=== PATIENT | male | born 1950 | race Caucasian/White ===

== ENCOUNTER 2020-02-17 17:52 | Inpatient (IN) | payer MEDICARE, OTHER ==
[2020-02-17] MEDS ORDERED: TRANEXAMIC ACID 1,000 MG in SODIUM CHLORIDE 0.9% 250 ML IV ONE (17:56)
[2020-02-17] MEDS ORDERED: DIPH,PERTUS(ACELL)TETVAC-LF 0.5 ML VIAL IM ONE (17:56)
[2020-02-17] MEDS ORDERED: SODIUM CHLORIDE 0.9% 1,000 ML IV STA (17:56)
--- NOTE | 2020-02-17 17:57 | ED ---
Fall HPI - General Stated Complaint: Fall Time Seen by Provider: 02/17/20 17:55 Source: RN notes reviewed, old records reviewed Limitations: no limitations - History of Present Illness Initial Comments: This is a 69-year-old male DF for evaluation no blood thinners patient presents today for evaluation regarding fall from distance fall from height maybe 15 feet significant back pain and left-sided chest pain with some mild shortness of breath. Patient does admit to drinking alcohol today, follow-up changing his gutters from ladder he did land on his left side in complaining of again severe left-sided pain. Questionable loss of consciousness patient unsure EMS states they think he did pass out. Blood pressure low in the field patient was made green party 1 trauma MD Complaint: fall -: days(s) Fall From: from height (distance) When Fall Occurred: 1 hour [employer] Fall Witnessed: yes, by family Place Fall Occurred: home Loss of Consciousness: second(s) Prolonged Down Time?: minute(s) Symptoms Prior to Fall: lightheadedness, dizziness Location: chest, back Location - Extremities: Left: Shoulder, Arm Severity: severe Quality: sharp Context: tripped/slipped, alcohol use Associated Symptoms: denies - Related Data Home Medications Medication Instructions Recorded Confirmed Finasteride [Proscar] 5 mg PO HS 02/17/20 02/17/20 Morphine Sulfate ER [Ms Contin] 15 mg PO Q12HR 02/17/20 02/17/20 Rosuvastatin Calcium [Crestor] 10 mg PO HS 02/17/20 02/17/20 Tadalafil [Cialis] 20 mg PO Q36H PRN 02/17/20 02/17/20 Tamsulosin HCl [Flomax] 0.8 mg PO HS 02/17/20 02/17/20 atenoloL [Atenolol] 25 mg PO HS 02/17/20 02/17/20 traZODone HCL [Desyrel] 50 mg PO HS PRN 02/17/20 02/17/20 Allergies Allergy/AdvReac Type Severity Reaction Status Date / Time fentanyl Allergy Unknown Verified 02/17/20 18:35 nitroglycerin AdvReac Unknown Verified 02/17/20 18:35 [From Nitroglyn] Review of Systems ROS Statement: Those systems with pertinent positive or pertinent negative responses have been documented in the HPI. ROS Other: All systems not noted in ROS Statement are negative. General Exam - General Exam Comments Initial Comments: GCS of 15 airway is patent trachea is midline breath sounds are equal bilaterally with left-sided chest pain left back pain Limitations: altered mental status (near syncope pre hospital) General appearance: alert, appears intoxicated, anxious, in distress Head exam: Present: atraumatic, normocephalic, normal inspection Eye exam: Present: normal appearance, PERRL, EOMI. Absent: scleral icterus, conjunctival injection, periorbital swelling ENT exam: Present: normal exam, mucous membranes moist Neck exam: Present: normal inspection. Absent: tenderness, meningismus, lymphadenopathy Respiratory exam: Present: decreased breath sounds, prolonged expiratory. Absent: respiratory distress, wheezes, rales, rhonchi, stridor Cardiovascular Exam: Present: regular rate, normal rhythm, normal heart sounds. Absent: systolic murmur, diastolic murmur, rubs, gallop, clicks GI/Abdominal exam: Present: soft, normal bowel sounds. Absent: distended, tenderness, guarding, rebound, rigid Extremities exam: Present: normal inspection, full ROM, normal capillary refill. Absent: tenderness, pedal edema, joint swelling, calf tenderness Back exam: Present: normal inspection Neurological exam: Present: alert, oriented X3, CN II-XII intact Psychiatric exam: Present: normal affect, normal mood Skin exam: Present: warm, dry, intact, normal color. Absent: rash Course Vital Signs 02/17/20 02/17/20 02/17/20 17:54 18:30 18:40 Temperature 97.9 F 97.9 F 97.9 F Pulse Rate 87 70 74 Respiratory 16 24 20 Rate Blood Pressure 88/52 96/53 118/61 O2 Sat by Pulse 9 L Oximetry 02/17/20 18:43 Temperature 97.9 F Pulse Rate 85 Respiratory 21 Rate Blood Pressure 97/47 O2 Sat by Pulse 96 Oximetry - Reevaluation(s) Reevaluation #1: 02/17/20 18:13 Medical record is reviewed Level I trauma is paged based on prehospital hypotension Patient having significant back pain Patient's blood pressure significantly improving with bolus, mass transfusion or cause initiated - Consultations Consultation #1: Spoke with and Dr. Ivy was in the ER evaluating patient and did take patient operating room Medical Decision Making - Medical Decision Making 69 male DF for evaluation patient fell 15 feet, patient sustained significant left-sided rib fractures as well as left ruptured spleen. - Lab Data Result diagrams: 02/17/20 17:56 02/17/20 17:56 Lab Results 02/17/20 02/17/20 02/17/20 Range/Units 17:56 17:56 17:56 WBC 9.8 (3.8-10.6) k/uL RBC 3.61 L (4.30-5.90) m/uL Hgb 10.5 L (13.0-17.5) gm/dL Hct 30.6 L (39.0-53.0) % MCV 84.6 (80.0-100.0) fL MCH 29.1 (25.0-35.0) pg MCHC 34.4 (31.0-37.0) g/dL RDW 13.1 (11.5-15.5) % Plt Count 150 (150-450) k/uL Neutrophils % 46 % Lymphocytes % 44 % Monocytes % 5 % Eosinophils % 2 % Basophils % 1 % Neutrophils # 4.5 (1.3-7.7) k/uL Lymphocytes # 4.3 (1.0-4.8) k/uL Monocytes # 0.5 (0-1.0) k/uL Eosinophils # 0.2 (0-0.7) k/uL Basophils # 0.1 (0-0.2) k/uL PT 11.0 (9.0-12.0) sec INR 1.1 (<1.2) APTT 21.1 L (22.0-30.0) sec Sodium 138 (137-145) mmol/L Potassium 3.2 L (3.5-5.1) mmol/L Chloride 110 H (98-107) mmol/L Carbon Dioxide 18 L (22-30) mmol/L Anion Gap 10 mmol/L BUN 14 (9-20) mg/dL Creatinine 1.25 (0.66-1.25) mg/dL Est GFR (CKD-EPI)AfAm 68 (>60 ml/min/1.73 sqM) Est GFR (CKD-EPI)NonAf 58 (>60 ml/min/1.73 sqM) Glucose 144 H (74-99) mg/dL Plasma Lactic Acid Blaine (0.7-2.0) mmol/L Calcium 8.1 L (8.4-10.2) mg/dL Total Bilirubin 0.3 (0.2-1.3) mg/dL AST 55 (17-59) U/L ALT 33 (4-49) U/L Alkaline Phosphatase 51 (38-126) U/L Creatine Kinase 218 H (55-170) U/L Troponin I (0.000-0.034) ng/mL Total Protein 4.7 L (6.3-8.2) g/dL Albumin 2.8 L (3.5-5.0) g/dL Serum Alcohol 114 mg/dL Blood Type Blood Type Recheck Bld Type Recheck Status Antibody Screen Crossmatch Spec Expiration Date 02/17/20 02/17/20 02/17/20 Range/Units 17:56 17:56 18:03 WBC (3.8-10.6) k/uL RBC (4.30-5.90) m/uL Hgb (13.0-17.5) gm/dL Hct (39.0-53.0) % MCV (80.0-100.0) fL MCH (25.0-35.0) pg MCHC (31.0-37.0) g/dL RDW (11.5-15.5) % Plt Count (150-450) k/uL Neutrophils % % Lymphocytes % % Monocytes % % Eosinophils % % Basophils % % Neutrophils # (1.3-7.7) k/uL Lymphocytes # (1.0-4.8) k/uL Monocytes # (0-1.0) k/uL Eosinophils # (0-0.7) k/uL Basophils # (0-0.2) k/uL PT (9.0-12.0) sec INR (<1.2) APTT (22.0-30.0) sec Sodium (137-145) mmol/L Potassium (3.5-5.1) mmol/L Chloride (98-107) mmol/L Carbon Dioxide (22-30) mmol/L Anion Gap mmol/L BUN (9-20) mg/dL Creatinine (0.66-1.25) mg/dL Est GFR (CKD-EPI)AfAm (>60 ml/min/1.73 sqM) Est GFR (CKD-EPI)NonAf (>60 ml/min/1.73 sqM) Glucose (74-99) mg/dL Plasma Lactic Acid Blaine 4.5 H* (0.7-2.0) mmol/L Calcium (8.4-10.2) mg/dL Total Bilirubin (0.2-1.3) mg/dL AST (17-59) U/L ALT (4-49) U/L Alkaline Phosphatase (38-126) U/L Creatine Kinase (55-170) U/L Troponin I <0.012 (0.000-0.034) ng/mL Total Protein (6.3-8.2) g/dL Albumin (3.5-5.0) g/dL Serum Alcohol mg/dL Blood Type A Negative Blood Type Recheck No Previous Record Bld Type Recheck Status CABO Indicated Antibody Screen NEGATIVE Crossmatch See Detail Spec Expiration Date 02/20/2020 2303 - EKG Data -: EKG Interpreted by Me (EKG sinus rhythm 83 MS 198 QRS 88 QTc 498) - Radiology Data Radiology results: report reviewed (Chest x-ray pelvis x-ray shows multiple l eft-sided rib fractures no significant new well, CT brain C-spine negative for acute tract disease, CT chest abdomen pelvis does show again significant left- sided rib fractures possibly 30% pneumothorax and significant hemoperitoneum secondary to splenic laceration and rupture grade 3), image reviewed Critical Care Time Critical Care Time: Yes Total Critical Care Time: 65 Disposition Clinical Impression: Fall, Ruptured spleen, Hemorrhagic shock, Hypotension Disposition: ADMITTED IP TO THIS HOSP Condition: Serious Is patient prescribed a controlled substance at d/c from ED?: No
--- NOTE | 2020-02-17 18:13 | XR ---
EXAMINATION TYPE: XR pelvis AP view DATE OF EXAM: 02/17/2020 CLINICAL HISTORY: pain TECHNIQUE: Single view the pelvis is submitted. FINDINGS: No evidence for fracture, dislocation or bony lesion. Joint spaces are well-preserved. S I joints appear symmetric. IMPRESSION: 1. No acute fracture or dislocation seen. ICD 10 NO FRACTURE, INITIAL EVALUATION
[2020-02-17 18:15] LABS: Basophils # (A) 0.1 k/uL (0-0.2); Basophils % (A) 1 %; Eosinophils # (A) 0.2 k/uL (0-0.7); Eosinophils % (A) 2 %; HCT 30.6 % (39.0-53.0); HGB 10.5 gm/dL (13.0-17.5); Lymphocytes # (A) 4.3 k/uL (1.0-4.8); Lymphocytes % (A) 44 %; MCH 29.1 pg (25.0-35.0); MCHC 34.4 g/dL (31.0-37.0); MCV 84.6 fL (80.0-100.0); Mean Platelet Volume 8.3; Monocytes # (A) 0.5 k/uL (0-1.0); Monocytes % (A) 5 %; Neutrophils # (A) 4.5 k/uL (1.3-7.7); Neutrophils % (A) 46 %; Platelet Count 150 k/uL (150-450); RBC 3.61 m/uL (4.30-5.90); RDW 13.1 % (11.5-15.5); WBC 9.8 k/uL (3.8-10.6)
--- NOTE | 2020-02-17 18:15 | XR ---
EXAMINATION TYPE: XR chest 1V portable DATE OF EXAM: 02/17/2020 HISTORY: Shortness of breath. COMPARISON: None. TECHNIQUE: Single view of the chest is submitted. FINDINGS: Demonstrated are scattered senescent parenchymal change. There is no evidence for focal infiltrate. The heart is stable. Hilar and mediastinal structures are within normal limits. Several left-sided rib fractures noted of left ribs 3 through 6. Small amount of subcutaneous air is seen. Tiny left apical pneumothorax is difficult to exclude. IMPRESSION: 1. Several left-sided rib fractures noted of left ribs 3 through 6. Small amount of subcutaneous air is seen. Tiny left apical pneumothorax is difficult to exclude.
[2020-02-17 18:26] LABS: Albumin 2.8 g/dL (3.5-5.0); Calcium 8.1 mg/dL (8.4-10.2); Potassium 3.2 mmol/L (3.5-5.1); Total Bilirubin 0.3 mg/dL (0.2-1.3); Total Protein 4.7 g/dL (6.3-8.2)
[2020-02-17] MEDS ORDERED: NALOXONE 0.4 MG/ML 1 ML VIAL IV PRN ×2 (18:30→19:37)
[2020-02-17] MEDS ORDERED: MORPHINE SULFATE 4 MG/ML SYRINGE IV PRN (18:30)
[2020-02-17] MEDS ORDERED: HYDROmorphone 0.5 MG/0.5 ML SYRINGE IVP PRN (18:40)
--- NOTE | 2020-02-17 18:40 | CT ---
EXAMINATION TYPE: CT ChestAbdPelvis w con DATE OF EXAM: 02/17/2020 COMPARISON: None HISTORY: Trauma, fell [address] DLP: 2709.9 mGycm CONTRAST: CT scan of the chest, abdomen and pelvis is performed without Oral Contrast and with IV Contrast, pat ient injected with 100 mL of Isovue 300. CT Chest: LUNGS: Left-sided pneumothorax identified estimated at 30%. Subcutaneous air seen along the left ches t wall. Multiple left-sided rib fractures are noted of 3 through 7. Several segmental fractures noted and flail chest is difficult to exclude. Small left-sided hemothorax noted. Patchy infiltrate right lower lobe may reflect contusion. MEDIASTINUM: Thoracic aorta is of normal caliber. The heart is not enlarged. No evidence for media stinal mass or adenopathy. HILAR STRUCTURES: No evidence for mass. No hilar adenopathy is appreciated. OTHER: No significant abnormality. CONTRAST CT ABDOMEN AND PELVIS FINDINGS: LIVER/GB: No calcified gallstones. No space occupying hepatic lesion. Biliary tree is of normal ca liber. PANCREAS: No inflammation. No distinct mass. SPLEEN: Parenchymal laceration greater than 3 cm in depth intrasplenic hematoma and perisplenic hemat nellie. No evidence for vascular injury component although laceration does extend near the hilum. Consid er grade 3 injury. ADRENALS: No nodule. No thickening. KIDNEYS/BLADDER: No hydronephrosis. No nephrolithiasis. No disctinct renal mass. BOWEL: Normal appendix. Normal bowel caliber. No inflammation. GENITAL ORGANS: No gross abnormality. LYMPH NODES: No greater than 1cm abdominal or pelvic lymph nodes are appreciated. AORTA: No significant abnormality. OSSEOUS STRUCTURES: No significant abnormality is seen. OTHER: Hemoperitoneum about the liver, paracolic gutters and pelvis. No evidence for pneumoperitoneum .. IMPRESSION: 1. Left-sided pneumothorax estimated at 30% with multiple left-sided rib fractures some of which appe ar to be segmental. Flail chest is not excluded. 2. Splenic laceration with estimated grade 3 injury. Hemoperitoneum as discussed above. Comment: Findings are discussed with via telephone
--- NOTE | 2020-02-17 18:41 | CT ---
EXAMINATION TYPE: CT brain ford wo con DATE OF EXAM: 02/17/2020 COMPARISON: None HISTORY: Trauma, fell [address] DLP: 2709.[address] of the brain was performed. The ventricles, basal cisterns and sulci overlying the cerebral convexities demonstrate mild enlargem ent. There is no evidence for intracranial hemorrhage or sulcal effacement. There is decreased attenuatio n about the periventricular white matter and deep white matter of both cerebral hemispheres, compatib le with chronic small vessel ischemia. No mass effects are seen. If symptoms persist consider MRI. Osseous calvarium is intact. IMPRESSION: 1. Age related atrophic and chronic small vessel ischemic change without acute intracranial process seen at this time. CT Cervical Spine: Unenhanced CT of the cervical spine was performed with bone and soft tissue window settings submitted . Coronal and sagittal reconstruction is obtained. There is normal alignment and prevertebral soft tissues. No evidence for acute cervical fracture. Po stoperative changes of fusion noted. Scattered degenerative disc disease and spondylosis. Biapical sc arring. IMPRESSION: 1. No evidence for acute fracture or subluxation of the cervical spine.
--- NOTE | 2020-02-17 18:44 | XR ---
EXAMINATION TYPE: XR humerus LT DATE OF EXAM: 02/17/2020 CLINICAL HISTORY: pain TECHNIQUE: lateral images of the left humerus are obtained. COMPARISON: None. FINDINGS: There is no acute fracture/dislocation evident. The joint spaces appear within normal limi ts. The overlying soft tissue appears unremarkable. IMPRESSION: There is no acute fracture or dislocation. ICD 10 NO FRACTURE, INITIAL EVALUATION
[2020-02-17 18:52] LABS: INR 1.1 (<1.2)
[2020-02-17 18:53] LABS: Partial Thromboplastin Time 21.1 sec (22.0-30.0)
[2020-02-17] MEDS ORDERED: ROCURONIUM BROMIDE 10 MG/ML 5 ML VIAL IV ONE (18:55)
[2020-02-17] MEDS ORDERED: PHENYLEPHRINE-0.9% NACL SYG 1 MG/10 ML SYRINGE ONE (18:55)
[2020-02-17] MEDS ORDERED: SODIUM CHLORIDE 0.9% 250 ML BAG ONE (18:55)
[2020-02-17] MEDS ORDERED: SUCCINYLCHOLINE CHLORIDE 100 MG/5 ML SYR IV ONE (18:55)
[2020-02-17] MEDS ORDERED: ceFAZolin 1,000 MG VIAL ONE (18:55)
[2020-02-17] MEDS ORDERED: TRANEXAMIC ACID 1,000 MG/10 ML VIAL ONE (18:55)
[2020-02-17] MEDS ORDERED: SODIUM CHLORIDE 0.9% 100 ML BAG ONE (18:55)
[2020-02-17] MEDS ORDERED: HYDROmorphone (PF) 1 MG/ML ONE (18:55)
[2020-02-17] MEDS ORDERED: ETOMIDATE 2 MG/ML 10 ML VIAL ONE (18:55)
[2020-02-17] MEDS ORDERED: LACTATED RINGERS 1,000 ML IV ONE ×2 (18:55→19:37)
[2020-02-17] MEDS ORDERED: ONDANSETRON 4 MG/2 ML VIAL IVP PRN (19:37)
[2020-02-17] MEDS ORDERED: HYDROmorphone 1 MG/ML 1 ML SYRINGE IVP PRN (19:37)
--- NOTE | 2020-02-17 19:47 | P.GSHP ---
History of Present Illness H&P Date: 02/17/20 Chief Complaint: Abdominal back pain Is a 69-year-old male who fell 15 feet off the top of the ladder. Patient apparently is putting [employer] on his house. The fall was unwitnessed. He calledHis who called EMS. The patient was hypotensive in the field and remained hypotensive in the emergency room. The patient is in shock. He is unable to give any significant medical history. Patient's CAT scan was performed showing a large left pneumothorax as well as multiple rib fractures and hemoperitoneum and a ruptured spleen. The patient was taken the operating room immediately. Past Medical History Past Medical History: Hyperlipidemia Past Surgical History: Coronary Bypass/CABG Smoking Status: Never smoker Past Alcohol Use History: None Reported Past Drug Use History: None Reported Medications and Allergies Home Medications Medication Instructions Recorded Confirmed Type Finasteride [Proscar] 5 mg PO HS 02/17/20 02/17/20 History Morphine Sulfate ER [Ms Contin] 15 mg PO Q12HR 02/17/20 02/17/20 History Rosuvastatin Calcium [Crestor] 10 mg PO HS 02/17/20 02/17/20 History Tadalafil [Cialis] 20 mg PO Q36H PRN 02/17/20 02/17/20 History Tamsulosin HCl [Flomax] 0.8 mg PO HS 02/17/20 02/17/20 History atenoloL [Atenolol] 25 mg PO HS 02/17/20 02/17/20 History traZODone HCL [Desyrel] 50 mg PO HS PRN 02/17/20 02/17/20 History Allergies Allergy/AdvReac Type Severity Reaction Status Date / Time fentanyl Allergy Unknown Verified 02/17/20 18:35 nitroglycerin AdvReac Unknown Verified 02/17/20 18:35 [From Nitroglyn] Surgical - Exam Vital Signs Temp Pulse Resp BP Pulse Ox 97.9 F 87 16 88/52 9 L 02/17/20 17:54 02/17/20 17:54 02/17/20 17:54 02/17/20 17:54 02/17/20 17:54 - General well developed, moderate distress - Eyes PERRL - ENT normal pinna - Neck no masses - Respiratory normal expansion - Cardiovascular Rhythm: regular - Abdomen Abdomen is distended tense with acute rebound and guarding - Neurologic normal coordination Results - Labs 02/17/20 17:56 02/17/20 17:56 Abnormal Lab Results - Last 24 Hours (Table) 02/17/20 02/17/20 02/17/20 Range/Units 17:56 17:56 17:56 RBC 3.61 L (4.30-5.90) m/uL Hgb 10.5 L (13.0-17.5) gm/dL Hct 30.6 L (39.0-53.0) % APTT 21.1 L (22.0-30.0) sec Potassium 3.2 L (3.5-5.1) mmol/L Chloride 110 H (98-107) mmol/L Carbon Dioxide 18 L (22-30) mmol/L Glucose 144 H (74-99) mg/dL Plasma Lactic Acid Blaine (0.7-2.0) mmol/L Calcium 8.1 L (8.4-10.2) mg/dL Creatine Kinase 218 H (55-170) U/L Total Protein 4.7 L (6.3-8.2) g/dL Albumin 2.8 L (3.5-5.0) g/dL Crossmatch 02/17/20 02/17/20 Range/Units 17:56 18:03 RBC (4.30-5.90) m/uL Hgb (13.0-17.5) gm/dL Hct (39.0-53.0) % APTT (22.0-30.0) sec Potassium (3.5-5.1) mmol/L Chloride (98-107) mmol/L Carbon Dioxide (22-30) mmol/L Glucose (74-99) mg/dL Plasma Lactic Acid Blaine 4.5 H* (0.7-2.0) mmol/L Calcium (8.4-10.2) mg/dL Creatine Kinase (55-170) U/L Total Protein (6.3-8.2) g/dL Albumin (3.5-5.0) g/dL Crossmatch See Detail Diabetes panel 02/17/20 Range/Units 17:56 Sodium 138 (137-145) mmol/L Potassium 3.2 L (3.5-5.1) mmol/L Chloride 110 H (98-107) mmol/L Carbon Dioxide 18 L (22-30) mmol/L BUN 14 (9-20) mg/dL Creatinine 1.25 (0.66-1.25) mg/dL Glucose 144 H (74-99) mg/dL Calcium 8.1 L (8.4-10.2) mg/dL AST 55 (17-59) U/L ALT 33 (4-49) U/L Alkaline Phosphatase 51 (38-126) U/L Total Protein 4.7 L (6.3-8.2) g/dL Albumin 2.8 L (3.5-5.0) g/dL Calcium panel 02/17/20 Range/Units 17:56 Calcium 8.1 L (8.4-10.2) mg/dL Albumin 2.8 L (3.5-5.0) g/dL Pituitary panel 02/17/20 Range/Units 17:56 Sodium 138 (137-145) mmol/L Potassium 3.2 L (3.5-5.1) mmol/L Chloride 110 H (98-107) mmol/L Carbon Dioxide 18 L (22-30) mmol/L BUN 14 (9-20) mg/dL Creatinine 1.25 (0.66-1.25) mg/dL Glucose 144 H (74-99) mg/dL Calcium 8.1 L (8.4-10.2) mg/dL Adrenal panel 02/17/20 Range/Units 17:56 Sodium 138 (137-145) mmol/L Potassium 3.2 L (3.5-5.1) mmol/L Chloride 110 H (98-107) mmol/L Carbon Dioxide 18 L (22-30) mmol/L BUN 14 (9-20) mg/dL Creatinine 1.25 (0.66-1.25) mg/dL Glucose 144 H (74-99) mg/dL Calcium 8.1 L (8.4-10.2) mg/dL Total Bilirubin 0.3 (0.2-1.3) mg/dL AST 55 (17-59) U/L ALT 33 (4-49) U/L Alkaline Phosphatase 51 (38-126) U/L Total Protein 4.7 L (6.3-8.2) g/dL Albumin 2.8 L (3.5-5.0) g/dL Assessment and Plan Assessment: S. Patient received chest tubes Hemoperitoneum with ruptured spleen. Patient was taken to the OR for immediate emergent splenectomy. Orthopedics has been consulted for possible extremity injury.
[2020-02-17 20:14] LABS: Glucose,Whole Blood 166 mg/dL (75-99)
[2020-02-17 21:03] LABS: ABG Base Excess -10.4 mmol/L; ABG HCO3 17 mmol/L (21-25); ABG Oxygen Saturation 99.5 % (94-97); ABG PCO2 38 mmHg (35-45); ABG PH 7.25 (7.35-7.45); ABG PO2 >400 mmHg (83-108); ABG TCO2 18 mmol/L (19-24)
[2020-02-17] MEDS ORDERED: MORPHINE SULFATE 4 MG/ML SYRINGE IVP STA (21:21)
[2020-02-17] MEDS: MORPHINE SULFATE (100 MG/2 ML) 100 MG in SODIUM CHLORIDE 0.9% 100 ML IV SCH (22:02)
[2020-02-17 23:00] LABS: Basophils # (A) 0.1 k/uL (0-0.2); Basophils % (A) 0 %; Eosinophils # (A) 0.1 k/uL (0-0.7); Eosinophils % (A) 1 %; Lymphocytes # (A) 2.2 k/uL (1.0-4.8); Lymphocytes % (A) 10 %; MCHC 33.6 g/dL (31.0-37.0); MCV 86.1 fL (80.0-100.0); Mean Platelet Volume 8.4; Monocytes # (A) 1.1 k/uL (0-1.0); Monocytes % (A) 5 %; Neutrophils # (A) 18.1 k/uL (1.3-7.7); Neutrophils % (A) 83 %; Platelet Count 102 k/uL (150-450); RBC 4.88 m/uL (4.30-5.90); RDW 14.1 % (11.5-15.5); WBC 21.7 k/uL (3.8-10.6)
[2020-02-17 23:09] LABS: ALT 42 U/L (4-49); AST 90 U/L (17-59); African American GFR (CKD) >90 (>60 ml/min/1.73 sqM); Albumin 2.7 g/dL (3.5-5.0); Alkaline Phosphatase 49 U/L (38-126); Anion Gap 8 mmol/L; Blood Urea Nitrogen 11 mg/dL (9-20); Calcium 7.4 mg/dL (8.4-10.2); Carbon Dioxide 17 mmol/L (22-30); Chloride 113 mmol/L (98-107); Glucose 143 mg/dL (74-99); Non-African American GFR(CKD) >90 (>60 ml/min/1.73 sqM); Potassium 4.1 mmol/L (3.5-5.1); Sodium 138 mmol/L (137-145); Total Bilirubin 0.9 mg/dL (0.2-1.3); Total Protein 4.7 g/dL (6.3-8.2)
[2020-02-17 23:19] LABS: HGB 14.1 gm/dL (13.0-17.5)
[2020-02-18] MEDS: PIPERACILLIN-TAZOBACTAM 3.375 GM in SODIUM CHLORIDE 0.9% 100 ML IVPB SCH ×3 (00:48→16:18)
[2020-02-18 01:12] LABS: Appearance,Urine Clear (Clear); Bilirubin,Urine Negative (Negative); Blood,Urine Moderate (Negative); Color,Urine Light Yellow; Glucose,Urine (UA) 1+ (Negative); Ketones,Urine Negative (Negative); Leukocyte Esterase,Urine Negative (Negative); Mucus,Urine Rare /hpf; Nitrite,Urine Negative (Negative); Protein,Urine Negative (Negative); RBC,Urine 22 /hpf (0-5); Specific Gravity,Urine 1.029 (1.001-1.035); Urobilinogen,Urine <2.0 mg/dL (<2.0); WBC,Urine 3 /hpf (0-5)
[2020-02-18 01:28] LABS: Amphetamine Screen,Urine Not Detected (NotDetected); Barbiturate Screen,Urine Not Detected (NotDetected); Benzodiazepines Screen,Urine Not Detected (NotDetected); Cocaine Screen,Urine Not Detected (NotDetected); Methadone Screen, Urine Not Detected (NotDetected); Opiate Screen,Urine Detected (NotDetected); Oxycodone Screen, Urine Not Detected (NotDetected); Phencyclidine Screen,Urine Not Detected (NotDetected); Tricyclic Antidepressant,Urine Not Detected (NotDetected); Urn Cannabinoid Scrn Detected (NotDetected)
[2020-02-18] MEDS ORDERED: MORPHINE SULFATE 4 MG/ML SYRINGE IVP STA (03:48)
[2020-02-18 04:38] LABS: African American GFR (CKD) >90 (>60 ml/min/1.73 sqM); Anion Gap 4 mmol/L; Blood Urea Nitrogen 12 mg/dL (9-20); Calcium 7.6 mg/dL (8.4-10.2); Carbon Dioxide 22 mmol/L (22-30); Chloride 110 mmol/L (98-107); Glucose 137 mg/dL (74-99); Magnesium 1.4 mg/dL (1.6-2.3); Non-African American GFR(CKD) >90 (>60 ml/min/1.73 sqM); Phosphorus 3.6 mg/dL (2.5-4.5); Potassium 4.3 mmol/L (3.5-5.1); Sodium 136 mmol/L (137-145)
[2020-02-18 04:40] LABS: Basophils # (A) 0.1 k/uL (0-0.2); Basophils % (A) 0 %; Eosinophils % (A) 0 %; HCT 39.2 % (39.0-53.0); HGB 13.4 gm/dL (13.0-17.5); Lymphocytes # (A) 1.3 k/uL (1.0-4.8); Lymphocytes % (A) 8 %; MCH 28.8 pg (25.0-35.0); MCHC 34.2 g/dL (31.0-37.0); MCV 84.2 fL (80.0-100.0); Mean Platelet Volume 8.7; Monocytes # (A) 1.2 k/uL (0-1.0); Monocytes % (A) 7 %; Neutrophils # (A) 14.2 k/uL (1.3-7.7); Neutrophils % (A) 84 %; RBC 4.65 m/uL (4.30-5.90); RDW 14.4 % (11.5-15.5); WBC 16.9 k/uL (3.8-10.6)
[2020-02-18 04:48] LABS: Platelet Count 102 k/uL (150-450)
[2020-02-18 05:01] LABS: ABG Base Excess -2.4 mmol/L; ABG HCO3 23 mmol/L (21-25); ABG Oxygen Saturation 98.7 % (94-97); ABG PCO2 37 mmHg (35-45); ABG PO2 121 mmHg (83-108); ABG TCO2 24 mmol/L (19-24); Allen Test Performed? Yes
[2020-02-18] MEDS ORDERED: Magnesium Replacement Protocol 1 EACH MISC MISCELLANE PRN (05:19)
[2020-02-18] MEDS: MAGNESIUM SULFATE-D5W PMX 1 GM in DEXTROSE/WATER 1 100ML.BAG IVPB SCH ×3 (05:44→10:40)
--- NOTE | 2020-02-18 08:02 | XR ---
EXAMINATION TYPE: XR chest 1V DATE OF EXAM: 02/18/2020 HISTORY: Shortness of breath. COMPARISON: The 20 TECHNIQUE: Single view of the chest is submitted. FINDINGS: Left basilar chest tube in place. No evidence for sizable pneumothorax at this time. Basilar pleural- parenchymal opacity. Multiple left-sided rib fractures with a small amount of subcutaneous emphysema. Endotracheal is well-positioned. The tip of the NG tube is just beyond the GE junction. The heart is stable. Hilar and mediastinal structures are within normal limits. Degenerative changes are seen of the dorsal spine. IMPRESSION: 1. Indwelling tubes and catheters as discussed. 2. Left basilar chest tube without sizable pneumothorax. Left basilar pleural-parenchymal opacity and multiple left-sided rib fractures.
[2020-02-18] MEDS: MORPHINE SULFATE (100 MG/2 ML) 100 MG in SODIUM CHLORIDE 0.9% 100 ML IV SCH ×2 (08:57→20:24)
[2020-02-18] MEDS: ENOXAPARIN 40 MG/0.4 ML SYRINGE SQ SCH (09:38)
[2020-02-18] MEDS ORDERED: SODIUM CHLORIDE 0.9% 1,000 ML IV SCH (10:00)
--- NOTE | 2020-02-18 11:05 | P.CNPUL ---
History of Present Illness Consult date: 02/18/20 Chief complaint: Fall off a ladder History of present illness: This is a 69-year-old male patient who was working on his gutters when he fell o ff a 15 foot ladder. This was unwitnessed. He end up calling his who in turn called EMS and the patient was brought in to the emergency department. Upon arrival, the patient was hypotensive and he was in shock. The patient initial chest x-ray showed several left-sided fractures and small amount of subcutaneous air in addition to a left-sided pneumothorax. The x-ray of the pelvis showed no evidence of any fracture or dislocation. The CAT scan of the brain showed age-related atrophy and chronic small vessel ischemic changes without any acute intracranial process. CAT scan of cervical spine showed no acute abnormalities. On and has Been of the cervical spine was done and the bone and soft tissue windows showed no acute abnormalities. There was no evidence of any fracture. Along with multiple left-sided rib fractures third extending to the seventh rib. There was also spending the sedation with estimated grade 3 injury the patient. The patient's hemoglobin dropped to 10.5. The patient received a total of 2 L of IV fluid and 40 minutes of packed RBC. Morning hemoglobin today is At 13.4. The patient was taken to the operating room yesterday. The patient underwent a left-sided chest tube insertion. The patient also had splenectomy done and following that the patient was kept intubated on a mechanical ventilator and he was transferred to the intensive care unit. Note that the patient takes morphine outpatient basis and he has chronic pain and chronic narcotic requirements and on outpatient basis he takes morphine sulfate in the form of MS Contin 50 mg every 12 hours. Overnight, the patient was intubated on mechanical ventilator. He was sedated with a comb[place] of propofol and he was also placed on morphine drip after being given several boluses control his pain. This morning, Profore is running at 70 mg per KG per minute. Morphine is running at 8 mg an hour. The patient is on normal saline at rate of 85 mL an hour. The patient has a left sided chest tube. Total amount of output is in order 110 mL of serosanguineous material without evidence of any air leak. The ventilator setting shows an assist-control mode rate of 20 with a tidal volume of 500 and FiO2 of 40% with a PEEP of 5. The patient's FiO2 is down to 40% overnight. The morning blood gases showed a pH of 7.4 with a pCO2 of 37 and pO2 of 121. The chest x-ray from this morning shows that the patient has an indwelling left-sided chest tube without any signs or pneumothorax. There is also a basilar pleural-based opacity along with multiple left-sided rib fractures and ET tube is in a good location. He is at approximately slightly swollen probably related to an infiltrated IV. He did not require any pressors. He remains hemodynamically stable. Lactic acid remains slightly elevated at 2.9 Review of Systems ROS unobtainable: due to endotracheal tube Past Medical History Past Medical History: Coronary Artery Disease (CAD), Hyperlipidemia, Prostate Disorder Additional Past Medical History / Comment(s): Chronic back and neck pain, cervical fusion 2009 History of Any Multi-Drug Resistant Organisms: None Reported Past Surgical History: Coronary Bypass/CABG Additional Past Surgical History / Comment(s): CABG and tripple bypass, hernia inguinal , cervical spine fusion Past Anesthesia/Blood Transfusion Reactions: No Reported Reaction Past Psychological History: Anxiety Smoking Status: Former smoker Past Alcohol Use History: None Reported Past Drug Use History: None Reported, Marijuana Medications and Allergies Home Medications Medication Instructions Recorded Confirmed Type Finasteride [Proscar] 5 mg PO HS 02/17/20 02/17/20 History Morphine Sulfate ER [Ms Contin] 15 mg PO Q12HR 02/17/20 02/17/20 History Rosuvastatin Calcium [Crestor] 10 mg PO HS 02/17/20 02/17/20 History Tadalafil [Cialis] 20 mg PO Q36H PRN 02/17/20 02/17/20 History Tamsulosin HCl [Flomax] 0.8 mg PO HS 02/17/20 02/17/20 History atenoloL [Atenolol] 25 mg PO HS 02/17/20 02/17/20 History traZODone HCL [Desyrel] 50 mg PO HS PRN 02/17/20 02/17/20 History Allergies Allergy/AdvReac Type Severity Reaction Status Date / Time fentanyl Allergy Unknown Verified 02/17/20 18:35 nitroglycerin AdvReac Unknown Verified 02/17/20 18:35 [From Nitroglyn] Physical Exam Vitals: Vital Signs Temp Pulse Resp BP BP Pulse Ox 02/18/20 06:00 112 H 13 123/85 100 02/18/20 05:00 110 H 20 133/92 100 02/18/20 04:00 97.6 F 111 H 20 117/68 100 02/18/20 03:30 113 H 21 128/109 100 02/18/20 03:00 108 H 20 158/93 99 02/18/20 02:30 109 H 26 H 158/93 100 02/18/20 02:00 108 H 20 148/96 100 02/18/20 01:30 105 H 20 148/96 100 02/18/20 01:00 99 20 100 02/18/20 00:30 97 20 129/79 100 02/18/20 00:00 97.1 F L 92 20 100 02/17/20 23:30 87 20 147/97 99 02/17/20 23:00 81 20 100 02/17/20 22:30 77 20 138/83 100 02/17/20 22:05 96.8 F L 20 168/75 100 02/17/20 22:00 73 20 100 02/17/20 21:30 72 20 147/89 100 02/17/20 21:00 70 20 100 02/17/20 20:30 68 8 L 100 02/17/20 18:47 97.3 F L 85 18 97/47 98 02/17/20 18:43 97.9 F 85 21 97/47 96 02/17/20 18:40 97.9 F 74 20 118/61 02/17/20 18:30 97.9 F 70 24 96/53 02/17/20 17:56 18 02/17/20 17:54 97.9 F 87 16 88/52 9 L Intake and Output 02/17/20 02/18/20 02/18/20 22:59 06:59 14:59 Intake Total 2615.771 1136.932 Output Total 2320 1675 Balance 295.771 -538.068 Intake: IV 1375 950 Lactated Ringers 1,000 ml 375 950 @ 125 mls/hr IV .Q8H [facility] Rx#:[id number] Intake, IV Titration 0.771 186.932 Amount Morphine Sulfate (100 mg/ 20.23 2 ml) 100 mg In Sodium Chloride 0.9% 100 ml @ 5 MG/HR 5.1 mls/hr IV .Q20H [facility] Rx#:[id number] propofoL 1,000 mg In 0.771 166.702 Empty Bag 1 bag @ Titrate IV .Q0M [facility] Rx#: [id number] Blood Product 1240 Rc As-1 Unit 310 [id number] Rc As-1 Unit 310 [id number] Rc As-1 Unit 310 [id number] Rc Pheresis 2 As3 Unit 310 [id number] Output: Chest Tube Drainage 825 Chest Tube Left Upper 825 Lateral Chest Urine 820 850 Estimated Blood Loss 1500 Other: Voiding Method Indwelling Catheter Indwelling Catheter Weight 77.111 kg 85.1 kg ABP, PAP, CO, CI - Last 8 Hours Arterial Blood Pressure 174/101 Arterial Blood Pressure 158/136 Arterial Blood Pressure 155/93 Arterial Blood Pressure 157/75 Gen. appearance the patient is sedated, comfortable not in acute respiratory distress. Orotracheal and orogastric tube are both in place. Head exam was generally normal. There was no scleral icterus or corneal arcus. Mucous membranes were moist. Neck was supple and without jugular venous distension, thyromegaly, or carotid bruits. Carotids were easily palpable bilaterally. There was no adenopathy. Lungs sounds are diminished bilaterally and the patient is a left sided chest t ube in place. Chest tube is in a good location. Breath sounds are slightly diminished in left lung base compared to the right. No evidence of any air leak and the chest tube Pleur-evac. Cardiac exam revealed the PMI to be normally situated and sized. The rhythm was regular and no extrasystoles were noted during several minutes of auscultation. The first and second heart sounds were normal and physiologic splitting of the second heart sound was noted. There were no murmurs, rubs, clicks, or gallops. Abdomen is soft and nontender. The patient has a mid abdominal scar which is dry clean and intact. A surgical scar/wound is dry clean and intact. No direct distention. No rebound distention. No guarding. Bowel sounds are hypoactive at this point in time. Examination of the extremities revealed easily palpable radial, femoral and pedal pulses. There was no cyanosis, clubbing or edema. Examination of the skin revealed no evidence of significant rashes, suspicious appearing nevi or other concerning lesions. Neurologic the patient is arousable. Currently he is well sedated. Pupils are equal and reactive to light. No signs of any head trauma. No nystagmus. No clonus. No Babinski. Results - Laboratory Findings CBC and BMP: 02/18/20 04:15 02/18/20 04:15 ABG ABG pH 7.40 (7.35-7.45) 02/18/20 04:57 ABG pCO2 37 mmHg (35-45) 02/18/20 04:57 ABG pO2 121 mmHg (83-108) H 02/18/20 04:57 ABG O2 Saturation 98.7 % (94-97) H 02/18/20 04:57 PT/INR, D-dimer PT 11.0 sec (9.0-12.0) 02/17/20 17:56 INR 1.1 (<1.2) 02/17/20 17:56 Abnormal lab findings: Abnormal Labs 02/17/20 02/17/20 02/17/20 17:56 17:56 17:56 WBC RBC 3.61 L Hgb 10.5 L Hct 30.6 L Plt Count Neutrophils # Monocytes # APTT 21.1 L ABG pH ABG pO2 ABG HCO3 ABG Total CO2 ABG O2 Saturation Sodium Potassium 3.2 L Chloride 110 H Carbon Dioxide 18 L Glucose 144 H POC Glucose (mg/dL) Plasma Lactic Acid Blaine Calcium 8.1 L Magnesium AST Creatine Kinase 218 H Total Protein 4.7 L Albumin 2.8 L Urine Glucose (UA) Urine Blood Urine RBC Urine Mucus Urine Opiates Screen U Marijuana (THC) Screen Crossmatch 02/17/20 02/17/20 02/17/20 17:56 18:03 20:03 WBC RBC Hgb Hct Plt Count Neutrophils # Monocytes # APTT ABG pH ABG pO2 ABG HCO3 ABG Total CO2 ABG O2 Saturation Sodium Potassium Chloride Carbon Dioxide Glucose POC Glucose (mg/dL) 166 H Plasma Lactic Acid Blaine 4.5 H* Calcium Magnesium AST Creatine Kinase Total Protein Albumin Urine Glucose (UA) Urine Blood Urine RBC Urine Mucus Urine Opiates Screen U Marijuana (THC) Screen Crossmatch See Detail 02/17/20 02/17/20 02/17/20 21:00 21:13 22:45 WBC 21.7 H RBC Hgb Hct Plt Count 102 L Neutrophils # 18.1 H Monocytes # 1.1 H APTT ABG pH 7.25 L ABG pO2 >400 H ABG HCO3 17 L ABG Total CO2 18 L ABG O2 Saturation 99.5 H Sodium Potassium Chloride Carbon Dioxide Glucose POC Glucose (mg/dL) Plasma Lactic Acid Blaine 4.4 H* Calcium Magnesium AST Creatine Kinase Total Protein Albumin Urine Glucose (UA) Urine Blood Urine RBC Urine Mucus Urine Opiates Screen U Marijuana (THC) Screen Crossmatch 02/17/20 02/18/20 02/18/20 22:45 00:55 01:00 WBC RBC Hgb Hct Plt Count Neutrophils # Monocytes # APTT ABG pH ABG pO2 ABG HCO3 ABG Total CO2 ABG O2 Saturation Sodium Potassium Chloride 113 H Carbon Dioxide 17 L Glucose 143 H POC Glucose (mg/dL) Plasma Lactic Acid Blaine 2.9 H* Calcium 7.4 L Magnesium AST 90 H Creatine Kinase Total Protein 4.7 L Albumin 2.7 L Urine Glucose (UA) 1+ H Urine Blood Moderate H Urine RBC 22 H Urine Mucus Rare H Urine Opiates Screen Detected H U Marijuana (THC) Screen Detected H Crossmatch 02/18/20 02/18/20 02/18/20 04:15 04:15 04:15 WBC 16.9 H RBC Hgb Hct Plt Count 102 L Neutrophils # 14.2 H Monocytes # 1.2 H APTT ABG pH ABG pO2 ABG HCO3 ABG Total CO2 ABG O2 Saturation Sodium 136 L Potassium Chloride 110 H Carbon Dioxide Glucose 137 H POC Glucose (mg/dL) Plasma Lactic Acid Blaine 2.9 H* Calcium 7.6 L Magnesium 1.4 L AST Creatine Kinase Total Protein Albumin Urine Glucose (UA) Urine Blood Urine RBC Urine Mucus Urine Opiates Screen U Marijuana (THC) Screen Crossmatch 02/18/20 02/18/20 04:57 07:00 WBC RBC Hgb Hct Plt Count Neutrophils # Monocytes # APTT ABG pH ABG pO2 121 H ABG HCO3 ABG Total CO2 ABG O2 Saturation 98.7 H Sodium Potassium Chloride Carbon Dioxide Glucose POC Glucose (mg/dL) Plasma Lactic Acid Blaine 3.4 H* Calcium Magnesium AST Creatine Kinase Total Protein Albumin Urine Glucose (UA) Urine Blood Urine RBC Urine Mucus Urine Opiates Screen U Marijuana (THC) Screen Crossmatch - Diagnostic Findings Chest x-ray: image reviewed CT scan - chest: image reviewed Assessment and Plan Plan: 1 fall off a ladder with significant trauma to the chest and abdomen. 2 traumatic grade 3 laceration of the spleen along with hemoperitoneum and the patient is post splenectomy and the patient is postop day #1 3 traumatic left-sided rib fractures third drip through seventh rib along with a 30% left-sided pneumothorax post chest tube insertion with adequate expansion of the left lung 4 shock at the time of admission, essentially due to hemorrhagic shock, improved with fluid resuscitation the patient was given a total of 4 units of packed RBC and 2 L of IV fluid and currently is hemodynamically stable and he is off pressors. Hemoglobin is above 10 5 blood loss anemia, acute, secondary to pneumoperitoneum, transfused with a total of 4 units of packed RBC 6 acute ventilator-dependent respiratory failure, hypoxic, secondary to above 7 chronic neck pain and the patient had been taken MS Contin on outpatient basis 50 mg twice a day 8 coronary artery disease appears bypass surgery 9 hyperlipidemia 10 BPH Plan Continue ventilator support without any changes for today Keep the patient on sedation with accommodation a propofol and morphine sulfate for pain control Monitor the output from the chest tube and monitor the air leak. The chest exit from today shows no evidence of pneumothorax Monitor hemoglobin Empiric antibiotic coverage with IV Zosyn Establish a arterial line catheter Keep nothing by mouth for now May need to be intubated for pain control and stabilization for another 24 hours with the potential possible weaning and extubation with the next 24 hours. We'll continue to follow. Condition is critical for now. Case was discussed with the family and the was at the bedside. Time with Patient: Greater than 30
--- NOTE | 2020-02-18 11:10 | P.PN ---
Subjective Progress Note Date: 02/18/20 CHIEF COMPLAINT: Fall with Trauma HISTORY OF PRESENT ILLNESS: 69-year-old male who fell 15 feet off the top of the ladder. Patient's CAT scan was performed showing a large left pneumothorax as well as multiple rib fractures and hemoperitoneum and a ruptured spleen. Patient is status post splenectomy. He is intubated in the ICU. Afebrile. WBC 16.9, Hgb 13.4, lactic 3.4, Mg 1.4 being replaced. urine positive for opiates and marijuana PHYSICAL EXAM: VITAL SIGNS: Reviewed. GENERAL: Well-developed in no acute distress. HEENT: No sclera icterus. Extraocular movements grossly intact. Moist buccal mucosa. Head is atraumatic, normocephalic. ABDOMEN: Soft. Nondistended. Incision has small amount of bleeding on dressing otherwise clean, dry and intact NEUROLOGIC: patient is on the vent and sedated ASSESSMENT: 1. 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 POD#1 2. Left-sided pneumothorax has chest tube in place 3. Multiple left-sided rib fractures 4. Alcohol intoxication PLAN: -Continue IV fluids -On IV antibiotics -Consult critical care management, medical management and infectious disease -lovenox for DVT prophylaxis Physician [employer] note has been reviewed by physician. Signing provider agrees with the documented findings, assessment, and plan of care. Objective - Vital Signs Vital signs: Vital Signs Temp 99.5 F 02/18/20 09:00 Pulse 93 02/18/20 10:00 Resp 20 02/18/20 10:00 BP 119/62 02/18/20 10:00 Pulse Ox 99 02/18/20 10:00 Intake & Output 02/17/20 02/18/20 02/18/20 18:59 06:59 18:59 Intake Total 1310 2442.703 798.815 Output Total 3995 290 Balance 1310 -1552.297 508.815 Weight 77.111 kg 85.1 kg Intake: IV 1000 1325 150 Lactated Ringers 1,000 ml 1325 150 @ 125 mls/hr IV .Q8H [facility] Rx#:[id number] Intake, IV Titration 187.703 648.815 Amount Magnesium Sulfate-D5w Pmx 100 1 gm In Dextrose/Water 1 100ml.bag @ 100 mls/hr IVPB Q1H [facility] Rx#: [id number] Morphine Sulfate (100 mg/ 20.23 56.712 2 ml) 100 mg In Sodium Chloride 0.9% 100 ml @ 5 MG/HR 5.1 mls/hr IV .Q20H [facility] Rx#:[id number] Piperacillin-Tazobactam 3 100 .375 gm In Sodium Chloride 0.9% 100 ml @ 25 mls/hr IVPB Q8HR [facility] Rx# :[id number] Sodium Chloride 0.9% 1, 250 000 ml @ 125 mls/hr IV . Q8H [facility] Rx#:[id number] propofoL 1,000 mg In 167.473 142.103 Empty Bag 1 bag @ Titrate IV .Q0M [facility] Rx#: [id number] Blood Product 310 930 Rc As-1 Unit 0 310 [id number] Rc As-1 Unit 310 [id number] Rc As-1 Unit 310 [id number] Rc Pheresis 2 As3 Unit 310 [id number] Output: Chest Tube Drainage 825 45 Chest Tube Left Upper 825 45 Lateral Chest Urine 1670 245 Estimated Blood Loss 1500 Other: Voiding Method Indwelling Catheter Indwelling Catheter ABP, PAP, CO, CI - Last Documented Arterial Blood Pressure 174/101 - Labs CBC & Chem 7: 02/18/20 04:15 02/18/20 04:15 Labs: Abnormal Lab Results - Last 24 Hours (Table) 02/17/20 02/17/20 02/17/20 Range/Units 17:56 17:56 17:56 WBC (3.8-10.6) k/uL RBC 3.61 L (4.30-5.90) m/uL Hgb 10.5 L (13.0-17.5) gm/dL Hct 30.6 L (39.0-53.0) % Plt Count (150-450) k/uL Neutrophils # (1.3-7.7) k/uL Monocytes # (0-1.0) k/uL APTT 21.1 L (22.0-30.0) sec ABG pH (7.35-7.45) ABG pO2 (83-108) mmHg ABG HCO3 (21-25) mmol/L ABG Total CO2 (19-24) mmol/L ABG O2 Saturation (94-97) % Sodium (137-145) mmol/L Potassium 3.2 L (3.5-5.1) mmol/L Chloride 110 H (98-107) mmol/L Carbon Dioxide 18 L (22-30) mmol/L Glucose 144 H (74-99) mg/dL POC Glucose (mg/dL) (75-99) mg/dL Plasma Lactic Acid Blaine (0.7-2.0) mmol/L Calcium 8.1 L (8.4-10.2) mg/dL Magnesium (1.6-2.3) mg/dL AST (17-59) U/L Creatine Kinase 218 H (55-170) U/L Total Protein 4.7 L (6.3-8.2) g/dL Albumin 2.8 L (3.5-5.0) g/dL Urine Glucose (UA) (Negative) Urine Blood (Negative) Urine RBC (0-5) /hpf Urine Mucus (None) /hpf Urine Opiates Screen (NotDetected) U Marijuana (THC) Screen (NotDetected) Crossmatch 02/17/20 02/17/20 02/17/20 Range/Units 17:56 18:03 20:03 WBC (3.8-10.6) k/uL RBC (4.30-5.90) m/uL Hgb (13.0-17.5) gm/dL Hct (39.0-53.0) % Plt Count (150-450) k/uL Neutrophils # (1.3-7.7) k/uL Monocytes # (0-1.0) k/uL APTT (22.0-30.0) sec ABG pH (7.35-7.45) ABG pO2 (83-108) mmHg ABG HCO3 (21-25) mmol/L ABG Total CO2 (19-24) mmol/L ABG O2 Saturation (94-97) % Sodium (137-145) mmol/L Potassium (3.5-5.1) mmol/L Chloride (98-107) mmol/L Carbon Dioxide (22-30) mmol/L Glucose (74-99) mg/dL POC Glucose (mg/dL) 166 H (75-99) mg/dL Plasma Lactic Acid Blaine 4.5 H* (0.7-2.0) mmol/L Calcium (8.4-10.2) mg/dL Magnesium (1.6-2.3) mg/dL AST (17-59) U/L Creatine Kinase (55-170) U/L Total Protein (6.3-8.2) g/dL Albumin (3.5-5.0) g/dL Urine Glucose (UA) (Negative) Urine Blood (Negative) Urine RBC (0-5) /hpf Urine Mucus (None) /hpf Urine Opiates Screen (NotDetected) U Marijuana (THC) Screen (NotDetected) Crossmatch See Detail 02/17/20 02/17/20 02/17/20 Range/Units 21:00 21:13 22:45 WBC 21.7 H (3.8-10.6) k/uL RBC (4.30-5.90) m/uL Hgb (13.0-17.5) gm/dL Hct (39.0-53.0) % Plt Count 102 L (150-450) k/uL Neutrophils # 18.1 H (1.3-7.7) k/uL Monocytes # 1.1 H (0-1.0) k/uL APTT (22.0-30.0) sec ABG pH 7.25 L (7.35-7.45) ABG pO2 >400 H (83-108) mmHg ABG HCO3 17 L (21-25) mmol/L ABG Total CO2 18 L (19-24) mmol/L ABG O2 Saturation 99.5 H (94-97) % Sodium (137-145) mmol/L Potassium (3.5-5.1) mmol/L Chloride (98-107) mmol/L Carbon Dioxide (22-30) mmol/L Glucose (74-99) mg/dL POC Glucose (mg/dL) (75-99) mg/dL Plasma Lactic Acid Blaine 4.4 H* (0.7-2.0) mmol/L Calcium (8.4-10.2) mg/dL Magnesium (1.6-2.3) mg/dL AST (17-59) U/L Creatine Kinase (55-170) U/L Total Protein (6.3-8.2) g/dL Albumin (3.5-5.0) g/dL Urine Glucose (UA) (Negative) Urine Blood (Negative) Urine RBC (0-5) /hpf Urine Mucus (None) /hpf Urine Opiates Screen (NotDetected) U Marijuana (THC) Screen (NotDetected) Crossmatch 02/17/20 02/18/20 02/18/20 Range/Units 22:45 00:55 01:00 WBC (3.8-10.6) k/uL RBC (4.30-5.90) m/uL Hgb (13.0-17.5) gm/dL Hct (39.0-53.0) % Plt Count (150-450) k/uL Neutrophils # (1.3-7.7) k/uL Monocytes # (0-1.0) k/uL APTT (22.0-30.0) sec ABG pH (7.35-7.45) ABG pO2 (83-108) mmHg ABG HCO3 (21-25) mmol/L ABG Total CO2 (19-24) mmol/L ABG O2 Saturation (94-97) % Sodium (137-145) mmol/L Potassium (3.5-5.1) mmol/L Chloride 113 H (98-107) mmol/L Carbon Dioxide 17 L (22-30) mmol/L Glucose 143 H (74-99) mg/dL POC Glucose (mg/dL) (75-99) mg/dL Plasma Lactic Acid Blaine 2.9 H* (0.7-2.0) mmol/L Calcium 7.4 L (8.4-10.2) mg/dL Magnesium (1.6-2.3) mg/dL AST 90 H (17-59) U/L Creatine Kinase (55-170) U/L Total Protein 4.7 L (6.3-8.2) g/dL Albumin 2.7 L (3.5-5.0) g/dL Urine Glucose (UA) 1+ H (Negative) Urine Blood Moderate H (Negative) Urine RBC 22 H (0-5) /hpf Urine Mucus Rare H (None) /hpf Urine Opiates Screen Detected H (NotDetected) U Marijuana (THC) Screen Detected H (NotDetected) Crossmatch 02/18/20 02/18/20 02/18/20 Range/Units 04:15 04:15 04:15 WBC 16.9 H (3.8-10.6) k/uL RBC (4.30-5.90) m/uL Hgb (13.0-17.5) gm/dL Hct (39.0-53.0) % Plt Count 102 L (150-450) k/uL Neutrophils # 14.2 H (1.3-7.7) k/uL Monocytes # 1.2 H (0-1.0) k/uL APTT (22.0-30.0) sec ABG pH (7.35-7.45) ABG pO2 (83-108) mmHg ABG HCO3 (21-25) mmol/L ABG Total CO2 (19-24) mmol/L ABG O2 Saturation (94-97) % Sodium 136 L (137-145) mmol/L Potassium (3.5-5.1) mmol/L Chloride 110 H (98-107) mmol/L Carbon Dioxide (22-30) mmol/L Glucose 137 H (74-99) mg/dL POC Glucose (mg/dL) (75-99) mg/dL Plasma Lactic Acid Blaine 2.9 H* (0.7-2.0) mmol/L Calcium 7.6 L (8.4-10.2) mg/dL Magnesium 1.4 L (1.6-2.3) mg/dL AST (17-59) U/L Creatine Kinase (55-170) U/L Total Protein (6.3-8.2) g/dL Albumin (3.5-5.0) g/dL Urine Glucose (UA) (Negative) Urine Blood (Negative) Urine RBC (0-5) /hpf Urine Mucus (None) /hpf Urine Opiates Screen (NotDetected) U Marijuana (THC) Screen (NotDetected) Crossmatch 02/18/20 02/18/20 Range/Units 04:57 07:00 WBC (3.8-10.6) k/uL RBC (4.30-5.90) m/uL Hgb (13.0-17.5) gm/dL Hct (39.0-53.0) % Plt Count (150-450) k/uL Neutrophils # (1.3-7.7) k/uL Monocytes # (0-1.0) k/uL APTT (22.0-30.0) sec ABG pH (7.35-7.45) ABG pO2 121 H (83-108) mmHg ABG HCO3 (21-25) mmol/L ABG Total CO2 (19-24) mmol/L ABG O2 Saturation 98.7 H (94-97) % Sodium (137-145) mmol/L Potassium (3.5-5.1) mmol/L Chloride (98-107) mmol/L Carbon Dioxide (22-30) mmol/L Glucose (74-99) mg/dL POC Glucose (mg/dL) (75-99) mg/dL Plasma Lactic Acid Blaine 3.4 H* (0.7-2.0) mmol/L Calcium (8.4-10.2) mg/dL Magnesium (1.6-2.3) mg/dL AST (17-59) U/L Creatine Kinase (55-170) U/L Total Protein (6.3-8.2) g/dL Albumin (3.5-5.0) g/dL Urine Glucose (UA) (Negative) Urine Blood (Negative) Urine RBC (0-5) /hpf Urine Mucus (None) /hpf Urine Opiates Screen (NotDetected) U Marijuana (THC) Screen (NotDetected) Crossmatch Microbiology - Last 24 Hours (Table) 02/17/20 23:50 Sputum Culture - Preliminary Sputum
[2020-02-18 12:44] LABS: Glucose,Whole Blood 137 mg/dL (75-99)
[2020-02-18] MEDS ORDERED: SODIUM CHLORIDE 0.45% 1,000 ML IV SCH (13:00)
--- NOTE | 2020-02-18 13:03 | P.CONS ---
History of Present Illness - Reason for Consult Rosalind - History of Present Illness patient is a 69-year-old male was cleaning gutters fell from skin feet ladder was brought into emergency department found to have several left-sided fractures left-sided pneumothorax with a left-sided chest tube presently patient is presently intubated patient has multiple left-sided fractures from third to seventh rib patient also had a splenectomy for splenic injury. Patient is presently sedated with propofol and also morphine drip patient is presently on ventilatory support blood gases showed normal pH pCO2 and pO2 are within normal limits as well patient is presently onZosyn patient had lactic acidosis secondary tolactated Ringer's. Patient is hyperchloremic because of which probably will start him on half-normal saline. Review of Systems patient is intubated sedated at this time. Unable to obtain any History from the patient because of that reason Past Medical History Past Medical History: Coronary Artery Disease (CAD), Hyperlipidemia, Prostate Disorder Additional Past Medical History / Comment(s): Chronic back and neck pain, cervical fusion 2009 History of Any Multi-Drug Resistant Organisms: None Reported Past Surgical History: Coronary Bypass/CABG Additional Past Surgical History / Comment(s): CABG and tripple bypass, hernia inguinal , cervical spine fusion Past Anesthesia/Blood Transfusion Reactions: No Reported Reaction Past Psychological History: Anxiety Smoking Status: Former smoker Past Alcohol Use History: None Reported Past Drug Use History: None Reported, Marijuana Medications and Allergies Home Medications Medication Instructions Recorded Confirmed Type Finasteride [Proscar] 5 mg PO HS 02/17/20 02/17/20 History Morphine Sulfate ER [Ms Contin] 15 mg PO Q12HR 02/17/20 02/17/20 History Rosuvastatin Calcium [Crestor] 10 mg PO HS 02/17/20 02/17/20 History Tadalafil [Cialis] 20 mg PO Q36H PRN 02/17/20 02/17/20 History Tamsulosin HCl [Flomax] 0.8 mg PO HS 02/17/20 02/17/20 History atenoloL [Atenolol] 25 mg PO HS 02/17/20 02/17/20 History traZODone HCL [Desyrel] 50 mg PO HS PRN 02/17/20 02/17/20 History Allergies Allergy/AdvReac Type Severity Reaction Status Date / Time fentanyl Allergy Unknown Verified 02/17/20 18:35 nitroglycerin AdvReac Unknown Verified 02/17/20 18:35 [From Nitroglyn] Physical Exam Vitals: Vital Signs Temp Pulse Resp BP BP Pulse Ox 02/18/20 12:00 98.3 F 89 20 129/66 100 02/18/20 11:00 92 20 139/72 99 02/18/20 10:00 93 20 119/62 99 02/18/20 09:00 99.5 F 98 20 125/64 99 02/18/20 08:00 103 H 20 121/81 99 02/18/20 07:00 106 H 20 124/82 100 02/18/20 06:00 112 H 13 123/85 100 02/18/20 05:00 110 H 20 133/92 100 02/18/20 04:00 97.6 F 111 H 20 117/68 100 02/18/20 03:30 113 H 21 128/109 100 02/18/20 03:00 108 H 20 158/93 99 02/18/20 02:30 109 H 26 H 158/93 100 02/18/20 02:00 108 H 20 148/96 100 02/18/20 01:30 105 H 20 148/96 100 02/18/20 01:00 99 20 100 02/18/20 00:30 97 20 129/79 100 02/18/20 00:00 97.1 F L 92 20 100 02/17/20 23:30 87 20 147/97 99 02/17/20 23:00 81 20 100 02/17/20 22:30 77 20 138/83 100 02/17/20 22:05 96.8 F L 20 168/75 100 02/17/20 22:00 73 20 100 02/17/20 21:30 72 20 147/89 100 02/17/20 21:00 70 20 100 02/17/20 20:30 68 8 L 100 02/17/20 18:47 97.3 F L 85 18 97/47 98 02/17/20 18:43 97.9 F 85 21 97/47 96 02/17/20 18:40 97.9 F 74 20 118/61 02/17/20 18:30 97.9 F 70 24 96/53 02/17/20 17:56 18 02/17/20 17:54 97.9 F 87 16 88/52 9 L Intake and Output 02/17/20 02/18/20 02/18/20 22:59 06:59 14:59 Intake Total 2615.771 3576.698 8699.641 Output Total 2320 1675 495 Balance 295.771 -538.068 639.641 Intake: IV 1375 950 150 Lactated Ringers 1,000 ml 375 950 150 @ 125 mls/hr IV .Q8H [facility] Rx#:[id number] Intake, IV Titration 0.771 186.932 984.641 Amount Magnesium Sulfate-D5w Pmx 100 1 gm In Dextrose/Water 1 100ml.bag @ 100 mls/hr IVPB Q1H [facility] Rx#: [id number] Morphine Sulfate (100 mg/ 20.23 56.712 2 ml) 100 mg In Sodium Chloride 0.9% 100 ml @ 5 MG/HR 5.1 mls/hr IV .Q20H [facility] Rx#:[id number] Piperacillin-Tazobactam 3 100 .375 gm In Sodium Chloride 0.9% 100 ml @ 25 mls/hr IVPB Q8HR [facility] Rx# :[id number] Sodium Chloride 0.9% 1, 500 000 ml @ 125 mls/hr IV . Q8H [facility] Rx#:[id number] propofoL 1,000 mg In 0.771 166.702 227.929 Empty Bag 1 bag @ Titrate IV .Q0M [facility] Rx#: [id number] Blood Product 1240 Rc As-1 Unit 310 [id number] Rc As-1 Unit 310 [id number] Rc As-1 Unit 310 [id number] Rc Pheresis 2 As3 Unit 310 [id number] Output: Chest Tube Drainage 825 60 Chest Tube Left Upper 825 60 Lateral Chest Urine 820 850 435 Estimated Blood Loss 1500 Other: Voiding Method Indwelling Catheter Indwelling Catheter Indwelling Catheter Weight 77.111 kg 85.1 kg PHYSICAL EXAMINATION: GENERAL: intubated sedated. Well developed, well nourished. HEENT: Pupils are round and equally reacting to light. EOMI. No scleral icterus. No conjunctival pallor. Normocephalic, atraumatic. No pharyngeal erythema. No thyromegaly. CARDIOVASCULAR: S1 and S2 present. No murmurs, rubs, or gallops. PULMONARY: Chest is clear to auscultation, no wheezing or crackles. ABDOMEN: Soft, nontender, nondistended, normoactive bowel sounds. No palpable or ganomegaly. MUSCULOSKELETAL: No joint swelling or deformity. EXTREMITIES: No cyanosis, clubbing, or pedal edema. NEUROLOGICAL: rass score of around +1 SKIN: No rashes. Results CBC & Chem 7: 02/18/20 04:15 02/18/20 04:15 Labs: Abnormal Lab Results - Last 24 Hours (Table) 02/17/20 02/17/20 02/17/20 Range/Units 17:56 17:56 17:56 WBC (3.8-10.6) k/uL RBC 3.61 L (4.30-5.90) m/uL Hgb 10.5 L (13.0-17.5) gm/dL Hct 30.6 L (39.0-53.0) % Plt Count (150-450) k/uL Neutrophils # (1.3-7.7) k/uL Monocytes # (0-1.0) k/uL APTT 21.1 L (22.0-30.0) sec ABG pH (7.35-7.45) ABG pO2 (83-108) mmHg ABG HCO3 (21-25) mmol/L ABG Total CO2 (19-24) mmol/L ABG O2 Saturation (94-97) % Sodium (137-145) mmol/L Potassium 3.2 L (3.5-5.1) mmol/L Chloride 110 H (98-107) mmol/L Carbon Dioxide 18 L (22-30) mmol/L Glucose 144 H (74-99) mg/dL POC Glucose (mg/dL) (75-99) mg/dL Plasma Lactic Acid Blaine (0.7-2.0) mmol/L Calcium 8.1 L (8.4-10.2) mg/dL Magnesium (1.6-2.3) mg/dL AST (17-59) U/L Creatine Kinase 218 H (55-170) U/L Total Protein 4.7 L (6.3-8.2) g/dL Albumin 2.8 L (3.5-5.0) g/dL Urine Glucose (UA) (Negative) Urine Blood (Negative) Urine RBC (0-5) /hpf Urine Mucus (None) /hpf Urine Opiates Screen (NotDetected) U Marijuana (THC) Screen (NotDetected) Crossmatch 02/17/20 02/17/20 02/17/20 Range/Units 17:56 18:03 20:03 WBC (3.8-10.6) k/uL RBC (4.30-5.90) m/uL Hgb (13.0-17.5) gm/dL Hct (39.0-53.0) % Plt Count (150-450) k/uL Neutrophils # (1.3-7.7) k/uL Monocytes # (0-1.0) k/uL APTT (22.0-30.0) sec ABG pH (7.35-7.45) ABG pO2 (83-108) mmHg ABG HCO3 (21-25) mmol/L ABG Total CO2 (19-24) mmol/L ABG O2 Saturation (94-97) % Sodium (137-145) mmol/L Potassium (3.5-5.1) mmol/L Chloride (98-107) mmol/L Carbon Dioxide (22-30) mmol/L Glucose (74-99) mg/dL POC Glucose (mg/dL) 166 H (75-99) mg/dL Plasma Lactic Acid Blaine 4.5 H* (0.7-2.0) mmol/L Calcium (8.4-10.2) mg/dL Magnesium (1.6-2.3) mg/dL AST (17-59) U/L Creatine Kinase (55-170) U/L Total Protein (6.3-8.2) g/dL Albumin (3.5-5.0) g/dL Urine Glucose (UA) (Negative) Urine Blood (Negative) Urine RBC (0-5) /hpf Urine Mucus (None) /hpf Urine Opiates Screen (NotDetected) U Marijuana (THC) Screen (NotDetected) Crossmatch See Detail 02/17/20 02/17/20 02/17/20 Range/Units 21:00 21:13 22:45 WBC 21.7 H (3.8-10.6) k/uL RBC (4.30-5.90) m/uL Hgb (13.0-17.5) gm/dL Hct (39.0-53.0) % Plt Count 102 L (150-450) k/uL Neutrophils # 18.1 H (1.3-7.7) k/uL Monocytes # 1.1 H (0-1.0) k/uL APTT (22.0-30.0) sec ABG pH 7.25 L (7.35-7.45) ABG pO2 >400 H (83-108) mmHg ABG HCO3 17 L (21-25) mmol/L ABG Total CO2 18 L (19-24) mmol/L ABG O2 Saturation 99.5 H (94-97) % Sodium (137-145) mmol/L Potassium (3.5-5.1) mmol/L Chloride (98-107) mmol/L Carbon Dioxide (22-30) mmol/L Glucose (74-99) mg/dL POC Glucose (mg/dL) (75-99) mg/dL Plasma Lactic Acid Blaine 4.4 H* (0.7-2.0) mmol/L Calcium (8.4-10.2) mg/dL Magnesium (1.6-2.3) mg/dL AST (17-59) U/L Creatine Kinase (55-170) U/L Total Protein (6.3-8.2) g/dL Albumin (3.5-5.0) g/dL Urine Glucose (UA) (Negative) Urine Blood (Negative) Urine RBC (0-5) /hpf Urine Mucus (None) /hpf Urine Opiates Screen (NotDetected) U Marijuana (THC) Screen (NotDetected) Crossmatch 02/17/20 02/18/20 02/18/20 Range/Units 22:45 00:55 01:00 WBC (3.8-10.6) k/uL RBC (4.30-5.90) m/uL Hgb (13.0-17.5) gm/dL Hct (39.0-53.0) % Plt Count (150-450) k/uL Neutrophils # (1.3-7.7) k/uL Monocytes # (0-1.0) k/uL APTT (22.0-30.0) sec ABG pH (7.35-7.45) ABG pO2 (83-108) mmHg ABG HCO3 (21-25) mmol/L ABG Total CO2 (19-24) mmol/L ABG O2 Saturation (94-97) % Sodium (137-145) mmol/L Potassium (3.5-5.1) mmol/L Chloride 113 H (98-107) mmol/L Carbon Dioxide 17 L (22-30) mmol/L Glucose 143 H (74-99) mg/dL POC Glucose (mg/dL) (75-99) mg/dL Plasma Lactic Acid Blaine 2.9 H* (0.7-2.0) mmol/L Calcium 7.4 L (8.4-10.2) mg/dL Magnesium (1.6-2.3) mg/dL AST 90 H (17-59) U/L Creatine Kinase (55-170) U/L Total Protein 4.7 L (6.3-8.2) g/dL Albumin 2.7 L (3.5-5.0) g/dL Urine Glucose (UA) 1+ H (Negative) Urine Blood Moderate H (Negative) Urine RBC 22 H (0-5) /hpf Urine Mucus Rare H (None) /hpf Urine Opiates Screen Detected H (NotDetected) U Marijuana (THC) Screen Detected H (NotDetected) Crossmatch 02/18/20 02/18/20 02/18/20 Range/Units 04:15 04:15 04:15 WBC 16.9 H (3.8-10.6) k/uL RBC (4.30-5.90) m/uL Hgb (13.0-17.5) gm/dL Hct (39.0-53.0) % Plt Count 102 L (150-450) k/uL Neutrophils # 14.2 H (1.3-7.7) k/uL Monocytes # 1.2 H (0-1.0) k/uL APTT (22.0-30.0) sec ABG pH (7.35-7.45) ABG pO2 (83-108) mmHg ABG HCO3 (21-25) mmol/L ABG Total CO2 (19-24) mmol/L ABG O2 Saturation (94-97) % Sodium 136 L (137-145) mmol/L Potassium (3.5-5.1) mmol/L Chloride 110 H (98-107) mmol/L Carbon Dioxide (22-30) mmol/L Glucose 137 H (74-99) mg/dL POC Glucose (mg/dL) (75-99) mg/dL Plasma Lactic Acid Blaine 2.9 H* (0.7-2.0) mmol/L Calcium 7.6 L (8.4-10.2) mg/dL Magnesium 1.4 L (1.6-2.3) mg/dL AST (17-59) U/L Creatine Kinase (55-170) U/L Total Protein (6.3-8.2) g/dL Albumin (3.5-5.0) g/dL Urine Glucose (UA) (Negative) Urine Blood (Negative) Urine RBC (0-5) /hpf Urine Mucus (None) /hpf Urine Opiates Screen (NotDetected) U Marijuana (THC) Screen (NotDetected) Crossmatch 02/18/20 02/18/20 02/18/20 Range/Units 04:57 07:00 12:42 WBC (3.8-10.6) k/uL RBC (4.30-5.90) m/uL Hgb (13.0-17.5) gm/dL Hct (39.0-53.0) % Plt Count (150-450) k/uL Neutrophils # (1.3-7.7) k/uL Monocytes # (0-1.0) k/uL APTT (22.0-30.0) sec ABG pH (7.35-7.45) ABG pO2 121 H (83-108) mmHg ABG HCO3 (21-25) mmol/L ABG Total CO2 (19-24) mmol/L ABG O2 Saturation 98.7 H (94-97) % Sodium (137-145) mmol/L Potassium (3.5-5.1) mmol/L Chloride (98-107) mmol/L Carbon Dioxide (22-30) mmol/L Glucose (74-99) mg/dL POC Glucose (mg/dL) 137 H (75-99) mg/dL Plasma Lactic Acid Blaine 3.4 H* (0.7-2.0) mmol/L Calcium (8.4-10.2) mg/dL Magnesium (1.6-2.3) mg/dL AST (17-59) U/L Creatine Kinase (55-170) U/L Total Protein (6.3-8.2) g/dL Albumin (3.5-5.0) g/dL Urine Glucose (UA) (Negative) Urine Blood (Negative) Urine RBC (0-5) /hpf Urine Mucus (None) /hpf Urine Opiates Screen (NotDetected) U Marijuana (THC) Screen (NotDetected) Crossmatch Microbiology - Last 24 Hours (Table) 02/17/20 23:50 Sputum Culture - Preliminary Sputum Assessment and Plan Plan: -, leading topneumothorax anymore for her toenail for which patient has a chest tube -Splenic injury status post splenectomy patient had appropriate on him as well postoperative day 1. -Acute ventilatory dependent respiratory failure hypoxic secondary to polytrauma, pneumothorax and splenic injurycontinue with the ventilatory support and wean off as tolerated. days of empiric antibiotics with Zosyn -Traumatic left-sided rib fractures -Hemorrhagic shock on admission which improved patient received 4 units of PRBC transfusion presently hemodynamically stable is not requiring any pressors -acuteblood loss anemia from polytrauma pneumoperitoneum -history of carotid artery disease with previous bypass surgery -Hyperlipidemia -Benign prostatic hypertrophy
[2020-02-18] MEDS: SODIUM CHLORIDE 0.45% 1,000 ML IV SCH (13:29)
[2020-02-18] MEDS: CHLORHEXIDINE GLUCONATE 15 ML CUP MUCOUS MEM SCH ×2 (13:30→20:37)
[2020-02-18] MEDS: INSULIN ASPART (NovoLOG) 100 UNIT/ML VIAL SQ SCH ×2 (13:35→18:18)
--- NOTE | 2020-02-18 15:09 | P.PCN ---
Date of Procedure: 02/18/20 Preoperative Diagnosis: Acute hypoxic respiratory failure, chest wall trauma Postoperative Diagnosis: Same Procedure(s) Performed: Arterial line insertion Anesthesia: local Surgeon: Ayanna Royal Nick Setter #1: Judy Cotter Estimated Blood Loss (ml): 0 Pathology: other Condition: critical Disposition: ICU Operative Findings: Indication: Hemodynamic monitoring. A time-out was completed verifying correct patient, procedure, site, positioning, and implant(s) or special equipment if applicable. Allens test was performed to ensure adequate perfusion. The patient's left wrist was prepped and draped in sterile fashion. 1% Lidocaine was used to anesthetize the area. An 18G Arrow arterial line was introduced into the radial artery. The catheter was threaded over the guide wire and the needle was removed with appropriate pulsatile blood return. Blood loss was minimal. The catheter was then sutured in place to the skin and a sterile dressing applied. Perfusion to the extremity distal to the point of catheter insertion was checked and found to be adequate. The patient tolerated the procedure well and there were no complications.
[2020-02-18 18:18] LABS: Glucose,Whole Blood 125 mg/dL (75-99)
[2020-02-18] MEDS: TAMSULOSIN 0.4 MG CAP.ER.24H PO SCH (20:37)
[2020-02-18] MEDS: ATORVASTATIN 20 MG TAB PO SCH (20:37)
[2020-02-18] MEDS: FINASTERIDE 5 MG TAB PO SCH (20:38)
--- NOTE | 2020-02-18 23:02 | P.CONS ---
History of Present Illness - Reason for Consult Consult date: 02/18/20 Postsplenectomy Requesting physician: Russell Ivy - Chief Complaint Fall with abdominal and chest pain x one day - History of Present Illness Patient is 69-year-old male who apparently was Working on his gutters when he fell off a 15 foot lateral, patient to call in his will call EMS and the patient was brought into the ER on arrival. The patient was hypotensive but no fever initial white count was normal subsequent white count up to 21,000 patient did have a chest x-ray we did shows left-sided fractures and pneumothorax CT of chest abdominal pelvis did shows left-sided pneumothorax estimated at 30% with multiple left-sided rib fractures also evidence of splenic laceration with estimated empirically injury in the peritoneal patient was subsequently emergently taken to the OR patient is status post laparotomy and splenectomy, with no evidence of any injury to other internal organs patient also have left-sided chest tube placed subsequently the patient has been admitted to the ICU has been prophylactically started on Zosyn and infectious d taisha has been consulted for further management of antibiotic and consideration for possible splenectomy vaccination patient at time of evaluation is afebrile patient with hemodynamic stable not on any pressor support no significant purulence patient will be reported by nursing staff, most information has been obtained from review the chart and talking with the family and nursing staff and the patient currently sedated on the vent Review of Systems Positive points has been mentioned in HPI complete review could not be obtained because of his underlying mental status Past Medical History Past Medical History: Coronary Artery Disease (CAD), Hyperlipidemia, Prostate Disorder Additional Past Medical History / Comment(s): Chronic back and neck pain, cervical fusion 2008 History of Any Multi-Drug Resistant Organisms: None Reported Past Surgical History: Coronary Bypass/CABG Additional Past Surgical History / Comment(s): CABG and tripple bypass, hernia inguinal , cervical spine fusion Past Anesthesia/Blood Transfusion Reactions: No Reported Reaction Past Psychological History: Anxiety Smoking Status: Former smoker Past Alcohol Use History: None Reported Past Drug Use History: None Reported, Marijuana Medications and Allergies Home Medications Medication Instructions Recorded Confirmed Type Finasteride [Proscar] 5 mg PO HS 02/17/20 02/17/20 History Morphine Sulfate ER [Ms Contin] 15 mg PO Q12HR 02/17/20 02/17/20 History Rosuvastatin Calcium [Crestor] 10 mg PO HS 02/17/20 02/17/20 History Tadalafil [Cialis] 20 mg PO Q36H PRN 02/17/20 02/17/20 History Tamsulosin HCl [Flomax] 0.8 mg PO HS 02/17/20 02/17/20 History atenoloL [Atenolol] 25 mg PO HS 02/17/20 02/17/20 History traZODone HCL [Desyrel] 50 mg PO HS PRN 02/17/20 02/17/20 History Allergies Allergy/AdvReac Type Severity Reaction Status Date / Time fentanyl Allergy Unknown Verified 02/17/20 18:35 nitroglycerin AdvReac Unknown Verified 02/17/20 18:35 [From Nitroglyn] Physical Exam Vitals: Vital Signs Temp Pulse Resp BP BP Pulse Ox 02/18/20 14:00 89 20 132/59 99 02/18/20 13:00 89 20 125/60 100 02/18/20 12:00 98.3 F 89 20 129/66 100 02/18/20 11:00 92 20 139/72 99 02/18/20 10:00 93 20 119/62 99 02/18/20 09:00 99.5 F 98 20 125/64 99 02/18/20 08:00 103 H 20 121/81 99 02/18/20 07:00 106 H 20 124/82 100 02/18/20 06:00 112 H 13 123/85 100 02/18/20 05:00 110 H 20 133/92 100 02/18/20 04:00 97.6 F 111 H 20 117/68 100 02/18/20 03:30 113 H 21 128/109 100 02/18/20 03:00 108 H 20 158/93 99 02/18/20 02:30 109 H 26 H 158/93 100 02/18/20 02:00 108 H 20 148/96 100 02/18/20 01:30 105 H 20 148/96 100 02/18/20 01:00 99 20 100 02/18/20 00:30 97 20 129/79 100 02/18/20 00:00 97.1 F L 92 20 100 02/17/20 23:30 87 20 147/97 99 02/17/20 23:00 81 20 100 02/17/20 22:30 77 20 138/83 100 02/17/20 22:05 96.8 F L 20 168/75 100 02/17/20 22:00 73 20 100 02/17/20 21:30 72 20 147/89 100 02/17/20 21:00 70 20 100 02/17/20 20:30 68 8 L 100 02/17/20 18:47 97.3 F L 85 18 97/47 98 02/17/20 18:43 97.9 F 85 21 97/47 96 02/17/20 18:40 97.9 F 74 20 118/61 02/17/20 18:30 97.9 F 70 24 96/53 02/17/20 17:56 18 02/17/20 17:54 97.9 F 87 16 88/52 9 L Intake and Output 02/17/20 02/18/20 02/18/20 22:59 06:59 14:59 Intake Total 2615.771 5966.184 6640.778 Output Total 2320 1675 645 Balance 295.771 -538.068 770.778 Intake: IV 1375 950 150 Lactated Ringers 1,000 ml 375 950 150 @ 125 mls/hr IV .Q8H [facility] Rx#:[id number] Intake, IV Titration 0.771 044.221 8332.778 Amount Magnesium Sulfate-D5w Pmx 100 1 gm In Dextrose/Water 1 100ml.bag @ 100 mls/hr IVPB Q1H [facility] Rx#: [id number] Morphine Sulfate (100 mg/ 20.23 56.712 2 ml) 100 mg In Sodium Chloride 0.9% 100 ml @ 5 MG/HR 5.1 mls/hr IV .Q20H [facility] Rx#:[id number] Piperacillin-Tazobactam 3 100 .375 gm In Sodium Chloride 0.9% 100 ml @ 25 mls/hr IVPB Q8HR [facility] Rx# :[id number] Sodium Chloride 0.45% 1, 100 000 ml @ 100 mls/hr IV . Q10H [facility] Rx#:[id number] Sodium Chloride 0.9% 1, 625 000 ml @ 125 mls/hr IV . Q8H [facility] Rx#:[id number] propofoL 1,000 mg In 0.771 166.702 284.066 Empty Bag 1 bag @ Titrate IV .Q0M [facility] Rx#: [id number] Blood Product 1240 Rc As-1 Unit 310 [id number] Rc As-1 Unit 310 [id number] Rc As-1 Unit 310 [id number] Rc Pheresis 2 As3 Unit 310 [id number] Output: Chest Tube Drainage 825 75 Chest Tube Left Upper 825 75 Lateral Chest Urine 820 850 570 Estimated Blood Loss 1500 Other: Voiding Method Indwelling Catheter Indwelling Catheter Indwelling Catheter Weight 77.111 kg 85.1 kg GENERAL DESCRIPTION: An elderly male intubated on the vent, no distress. No tachypnea or accessory muscle of respiration use. HEENT: Shows Pallor , no scleral icterus. Oral mucous membrane is dry. Patient is orally intubated NECK: Trachea central, no thyromegaly. LUNGS: Unlabored breathing. Decreased breath sound the bases. No wheeze or crackle. HEART: S1, S2, regular rate and rhythm. No loud murmur ABDOMEN: Soft, no tenderness , guarding or rigidity, no organomegaly EXTREMITIES: No edema of feet. SKIN: No rash, no masses palpable. NEUROLOGICAL: The patient is sedated on the vent Results CBC & Chem 7: 02/18/20 04:15 02/18/20 04:15 Labs: Abnormal Lab Results - Last 24 Hours (Table) 02/17/20 02/17/20 02/17/20 Range/Units 17:56 17:56 17:56 WBC (3.8-10.6) k/uL RBC 3.61 L (4.30-5.90) m/uL Hgb 10.5 L (13.0-17.5) gm/dL Hct 30.6 L (39.0-53.0) % Plt Count (150-450) k/uL Neutrophils # (1.3-7.7) k/uL Monocytes # (0-1.0) k/uL APTT 21.1 L (22.0-30.0) sec ABG pH (7.35-7.45) ABG pO2 (83-108) mmHg ABG HCO3 (21-25) mmol/L ABG Total CO2 (19-24) mmol/L ABG O2 Saturation (94-97) % Sodium (137-145) mmol/L Potassium 3.2 L (3.5-5.1) mmol/L Chloride 110 H (98-107) mmol/L Carbon Dioxide 18 L (22-30) mmol/L Glucose 144 H (74-99) mg/dL POC Glucose (mg/dL) (75-99) mg/dL Plasma Lactic Acid Blaine (0.7-2.0) mmol/L Calcium 8.1 L (8.4-10.2) mg/dL Magnesium (1.6-2.3) mg/dL AST (17-59) U/L Creatine Kinase 218 H (55-170) U/L Total Protein 4.7 L (6.3-8.2) g/dL Albumin 2.8 L (3.5-5.0) g/dL Urine Glucose (UA) (Negative) Urine Blood (Negative) Urine RBC (0-5) /hpf Urine Mucus (None) /hpf Urine Opiates Screen (NotDetected) U Marijuana (THC) Screen (NotDetected) Crossmatch 02/17/20 02/17/20 02/17/20 Range/Units 17:56 18:03 20:03 WBC (3.8-10.6) k/uL RBC (4.30-5.90) m/uL Hgb (13.0-17.5) gm/dL Hct (39.0-53.0) % Plt Count (150-450) k/uL Neutrophils # (1.3-7.7) k/uL Monocytes # (0-1.0) k/uL APTT (22.0-30.0) sec ABG pH (7.35-7.45) ABG pO2 (83-108) mmHg ABG HCO3 (21-25) mmol/L ABG Total CO2 (19-24) mmol/L ABG O2 Saturation (94-97) % Sodium (137-145) mmol/L Potassium (3.5-5.1) mmol/L Chloride (98-107) mmol/L Carbon Dioxide (22-30) mmol/L Glucose (74-99) mg/dL POC Glucose (mg/dL) 166 H (75-99) mg/dL Plasma Lactic Acid Blaine 4.5 H* (0.7-2.0) mmol/L Calcium (8.4-10.2) mg/dL Magnesium (1.6-2.3) mg/dL AST (17-59) U/L Creatine Kinase (55-170) U/L Total Protein (6.3-8.2) g/dL Albumin (3.5-5.0) g/dL Urine Glucose (UA) (Negative) Urine Blood (Negative) Urine RBC (0-5) /hpf Urine Mucus (None) /hpf Urine Opiates Screen (NotDetected) U Marijuana (THC) Screen (NotDetected) Crossmatch See Detail 02/17/20 02/17/20 02/17/20 Range/Units 21:00 21:13 22:45 WBC 21.7 H (3.8-10.6) k/uL RBC (4.30-5.90) m/uL Hgb (13.0-17.5) gm/dL Hct (39.0-53.0) % Plt Count 102 L (150-450) k/uL Neutrophils # 18.1 H (1.3-7.7) k/uL Monocytes # 1.1 H (0-1.0) k/uL APTT (22.0-30.0) sec ABG pH 7.25 L (7.35-7.45) ABG pO2 >400 H (83-108) mmHg ABG HCO3 17 L (21-25) mmol/L ABG Total CO2 18 L (19-24) mmol/L ABG O2 Saturation 99.5 H (94-97) % Sodium (137-145) mmol/L Potassium (3.5-5.1) mmol/L Chloride (98-107) mmol/L Carbon Dioxide (22-30) mmol/L Glucose (74-99) mg/dL POC Glucose (mg/dL) (75-99) mg/dL Plasma Lactic Acid Blaine 4.4 H* (0.7-2.0) mmol/L Calcium (8.4-10.2) mg/dL Magnesium (1.6-2.3) mg/dL AST (17-59) U/L Creatine Kinase (55-170) U/L Total Protein (6.3-8.2) g/dL Albumin (3.5-5.0) g/dL Urine Glucose (UA) (Negative) Urine Blood (Negative) Urine RBC (0-5) /hpf Urine Mucus (None) /hpf Urine Opiates Screen (NotDetected) U Marijuana (THC) Screen (NotDetected) Crossmatch 02/17/20 02/18/20 02/18/20 Range/Units 22:45 00:55 01:00 WBC (3.8-10.6) k/uL RBC (4.30-5.90) m/uL Hgb (13.0-17.5) gm/dL Hct (39.0-53.0) % Plt Count (150-450) k/uL Neutrophils # (1.3-7.7) k/uL Monocytes # (0-1.0) k/uL APTT (22.0-30.0) sec ABG pH (7.35-7.45) ABG pO2 (83-108) mmHg ABG HCO3 (21-25) mmol/L ABG Total CO2 (19-24) mmol/L ABG O2 Saturation (94-97) % Sodium (137-145) mmol/L Potassium (3.5-5.1) mmol/L Chloride 113 H (98-107) mmol/L Carbon Dioxide 17 L (22-30) mmol/L Glucose 143 H (74-99) mg/dL POC Glucose (mg/dL) (75-99) mg/dL Plasma Lactic Acid Blaine 2.9 H* (0.7-2.0) mmol/L Calcium 7.4 L (8.4-10.2) mg/dL Magnesium (1.6-2.3) mg/dL AST 90 H (17-59) U/L Creatine Kinase (55-170) U/L Total Protein 4.7 L (6.3-8.2) g/dL Albumin 2.7 L (3.5-5.0) g/dL Urine Glucose (UA) 1+ H (Negative) Urine Blood Moderate H (Negative) Urine RBC 22 H (0-5) /hpf Urine Mucus Rare H (None) /hpf Urine Opiates Screen Detected H (NotDetected) U Marijuana (THC) Screen Detected H (NotDetected) Crossmatch 02/18/20 02/18/20 02/18/20 Range/Units 04:15 04:15 04:15 WBC 16.9 H (3.8-10.6) k/uL RBC (4.30-5.90) m/uL Hgb (13.0-17.5) gm/dL Hct (39.0-53.0) % Plt Count 102 L (150-450) k/uL Neutrophils # 14.2 H (1.3-7.7) k/uL Monocytes # 1.2 H (0-1.0) k/uL APTT (22.0-30.0) sec ABG pH (7.35-7.45) ABG pO2 (83-108) mmHg ABG HCO3 (21-25) mmol/L ABG Total CO2 (19-24) mmol/L ABG O2 Saturation (94-97) % Sodium 136 L (137-145) mmol/L Potassium (3.5-5.1) mmol/L Chloride 110 H (98-107) mmol/L Carbon Dioxide (22-30) mmol/L Glucose 137 H (74-99) mg/dL POC Glucose (mg/dL) (75-99) mg/dL Plasma Lactic Acid Blaine 2.9 H* (0.7-2.0) mmol/L Calcium 7.6 L (8.4-10.2) mg/dL Magnesium 1.4 L (1.6-2.3) mg/dL AST (17-59) U/L Creatine Kinase (55-170) U/L Total Protein (6.3-8.2) g/dL Albumin (3.5-5.0) g/dL Urine Glucose (UA) (Negative) Urine Blood (Negative) Urine RBC (0-5) /hpf Urine Mucus (None) /hpf Urine Opiates Screen (NotDetected) U Marijuana (THC) Screen (NotDetected) Crossmatch 02/18/20 02/18/20 02/18/20 Range/Units 04:57 07:00 12:42 WBC (3.8-10.6) k/uL RBC (4.30-5.90) m/uL Hgb (13.0-17.5) gm/dL Hct (39.0-53.0) % Plt Count (150-450) k/uL Neutrophils # (1.3-7.7) k/uL Monocytes # (0-1.0) k/uL APTT (22.0-30.0) sec ABG pH (7.35-7.45) ABG pO2 121 H (83-108) mmHg ABG HCO3 (21-25) mmol/L ABG Total CO2 (19-24) mmol/L ABG O2 Saturation 98.7 H (94-97) % Sodium (137-145) mmol/L Potassium (3.5-5.1) mmol/L Chloride (98-107) mmol/L Carbon Dioxide (22-30) mmol/L Glucose (74-99) mg/dL POC Glucose (mg/dL) 137 H (75-99) mg/dL Plasma Lactic Acid Blaine 3.4 H* (0.7-2.0) mmol/L Calcium (8.4-10.2) mg/dL Magnesium (1.6-2.3) mg/dL AST (17-59) U/L Creatine Kinase (55-170) U/L Total Protein (6.3-8.2) g/dL Albumin (3.5-5.0) g/dL Urine Glucose (UA) (Negative) Urine Blood (Negative) Urine RBC (0-5) /hpf Urine Mucus (None) /hpf Urine Opiates Screen (NotDetected) U Marijuana (THC) Screen (NotDetected) Crossmatch Microbiology - Last 24 Hours (Table) 02/17/20 23:50 Sputum Culture - Preliminary Sputum Assessment and Plan Assessment: 1- patient presented to the hospital after a fall from a ladder in this patient who did have left-sided pneumothorax and splenic injury along with hemoperitoneum status post chest tube placement and splenectomy, with no evidence of any Injury to other internal organ, leukocytosis more likely reactive post splenectomy and trauma and the patient will need for splenectomy vaccination for Haemophilus influenzae pneumococcus and meningococcus (1) Post-splenectomy Current Visit: Yes Status: Acute Code(s): Z90.81 - ACQUIRED ABSENCE OF SPLEEN SNOMED Code(s): 901616911 (2) Leukocytosis Current Visit: Yes Status: Acute Code(s): D72.829 - ELEVATED WHITE BLOOD CELL COUNT, UNSPECIFIED SNOMED Code(s): 542759162 Plan: 1- patient is currently medically covered with Zosyn 3.375 grams every 8 hours to continue 2- . The patient's spike any fever or any worsening of the white count appropriate cultures will obtain an antibiotic adjusted accordingly 3- patient be given vaccinations for pneumococcus Haemophilus influenzae and meningococcus on March 02 that would be the of for splenectomy We will follow on clinical condition and cultures to further adjust medication if needed Thank you for this consultation will follow this patient with you Time with Patient: Greater than 30
[2020-02-19] MEDS: SODIUM CHLORIDE 0.45% 1,000 ML IV SCH ×2 (00:43→09:09)
[2020-02-19 00:53] LABS: Glucose,Whole Blood 106 mg/dL (75-99)
[2020-02-19] MEDS: PIPERACILLIN-TAZOBACTAM 3.375 GM in SODIUM CHLORIDE 0.9% 100 ML IVPB SCH ×3 (00:54→16:41)
[2020-02-19] MEDS: INSULIN ASPART (NovoLOG) 100 UNIT/ML VIAL SQ SCH ×4 (00:54→17:16)
[2020-02-19 05:17] LABS: ALT 95 U/L (4-49); AST 227 U/L (17-59); African American GFR (CKD) >90 (>60 ml/min/1.73 sqM); Albumin 2.3 g/dL (3.5-5.0); Alkaline Phosphatase 45 U/L (38-126); Anion Gap 3 mmol/L; Blood Urea Nitrogen 14 mg/dL (9-20); Calcium 7.6 mg/dL (8.4-10.2); Carbon Dioxide 23 mmol/L (22-30); Chloride 106 mmol/L (98-107); Glucose 118 mg/dL (74-99); Non-African American GFR(CKD) >90 (>60 ml/min/1.73 sqM); Potassium 3.8 mmol/L (3.5-5.1); Sodium 132 mmol/L (137-145); Total Bilirubin 0.5 mg/dL (0.2-1.3); Total Protein 4.1 g/dL (6.3-8.2)
[2020-02-19 05:21] LABS: ABG Base Excess 0.3 mmol/L; ABG HCO3 24 mmol/L (21-25); ABG Oxygen Saturation 97.3 % (94-97); ABG PCO2 31 mmHg (35-45); ABG PH 7.49 (7.35-7.45); ABG PO2 84 mmHg (83-108); ABG TCO2 25 mmol/L (19-24); Allen Test Performed? Yes
[2020-02-19 05:25] LABS: Basophils # (A) 0.1 k/uL (0-0.2); Basophils % (A) 1 %; Eosinophils # (A) 0.4 k/uL (0-0.7); Eosinophils % (A) 3 %; HCT 32.1 % (39.0-53.0); HGB 11.6 gm/dL (13.0-17.5); Lymphocytes # (A) 2.1 k/uL (1.0-4.8); Lymphocytes % (A) 12 %; MCH 30.9 pg (25.0-35.0); MCHC 36.2 g/dL (31.0-37.0); MCV 85.2 fL (80.0-100.0); Mean Platelet Volume 10.3; Monocytes # (A) 1.1 k/uL (0-1.0); Monocytes % (A) 7 %; Neutrophils % (A) 77 %; Platelet Count 108 k/uL (150-450); RBC 3.77 m/uL (4.30-5.90); RDW 14.8 % (11.5-15.5); WBC 16.8 k/uL (3.8-10.6)
[2020-02-19] MEDS ORDERED: Potassium Replacement Protocol 1 EACH MISC MISCELLANE PRN (05:38)
[2020-02-19] MEDS: POTASSIUM CHLORIDE 10 MEQ in WATER FOR INJECTION 1 100ML.BAG IVPB SCH ×2 (06:14→08:09)
--- NOTE | 2020-02-19 07:21 | XR ---
EXAMINATION TYPE: XR chest 1V DATE OF EXAM: 02/19/2020 CLINICAL HISTORY: Difficulty breathing progress study. Posttraumatic fall injury. TECHNIQUE: Single AP portable semiupright view of the chest is obtained. COMPARISON: Chest x-ray from one day earlier and older studies. CT 2 days ago. FINDINGS: Stable endotracheal and orogastric tubes. Overlying sternal wires and mediastinal clips re demonstrated. Stable left basilar chest tube. Patchy left basilar opacity extending laterally redemonstrated. No visible pneumothorax. Improving pires bcutaneous emphysema left chest wall. Right lung shows stable medial basilar atelectasis. Multiple di splaced left-sided rib fractures redemonstrated. Overlying vertical oriented upper to mid abdominal s kin ramonita are now present consistent with recent intra-abdominal surgery. Cardiac silhouette size s table and within normal limits. IMPRESSION: Left basilar chest tube without pneumothorax. Multiple left-sided rib fractures. Stable r ight medial basilar atelectasis. Stable left basilar acute infiltrate and/or atelectasis. No signific ant change from one day earlier.
[2020-02-19] MEDS ORDERED: SUCCINYLCHOLINE CHLORIDE VIAL 200 MG/10 ML VIAL IV ONE (07:43)
[2020-02-19] MEDS: CHLORHEXIDINE GLUCONATE 15 ML CUP MUCOUS MEM SCH ×2 (08:09→20:25)
[2020-02-19] MEDS: ENOXAPARIN 40 MG/0.4 ML SYRINGE SQ SCH (08:10)
[2020-02-19] MEDS: MORPHINE SULFATE (100 MG/2 ML) 100 MG in SODIUM CHLORIDE 0.9% 100 ML IV SCH (08:17)
[2020-02-19] MEDS ORDERED: SODIUM CHLORIDE 0.45% 1,000 ML IV ONE (08:57)
[2020-02-19] MEDS ORDERED: CLEVIDIPINE BUTYRATE 25 MG in EMPTY BAG 1 BAG IV SCH (10:00)
[2020-02-19] MEDS ORDERED: DEXTROSE 5% IN WATER 100 ML with AMIODARONE 150 MG IV ONE (10:08)
[2020-02-19] MEDS ORDERED: AMIODARONE 360 MG in DEXTROSE 5% IN WATER 200 ML IV ONE ×2 (10:08)
--- NOTE | 2020-02-19 10:09 | P.PN ---
Subjective Progress Note Date: 02/19/20 CHIEF COMPLAINT: Fall with Trauma HISTORY OF PRESENT ILLNESS: 69-year-old male who fell 15 feet off the top of the ladder. Patient's CAT scan was performed showing a large left pneumothorax as well as multiple rib fractures and hemoperitoneum and a ruptured spleen. Patient is status post splenectomy. He is on antibiotics. He is undergoing weaning trial today. Afebrile. WBC 16.8, Hgb 11.6 AST 227 ALT 95 PHYSICAL EXAM: VITAL SIGNS: Reviewed. GENERAL: Well-developed in no acute distress. HEENT: No sclera icterus. Extraocular movements grossly intact. Moist buccal mucosa. Head is atraumatic, normocephalic. ABDOMEN: Soft. Nondistended. Incision has small amount of bleeding on dressing otherwise clean, dry and intact NEUROLOGIC: patient is on the vent and sedated ASSESSMENT: 1. 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 POD#2 2. Left-sided pneumothorax has chest tube in place 3. Multiple left-sided rib fractures 4. Alcohol intoxication PLAN: -Continue IV fluids -On IV antibiotics -Appreciate treasury management sales consultant's recommendations. -lovenox for DVT prophylaxis Physician Printed Circuit Designer note has been reviewed by physician. Signing provider agrees with the documented findings, assessment, and plan of care. Objective - Vital Signs Vital signs: Vital Signs Temp 98.8 F 02/19/20 08:00 Pulse 83 02/19/20 09:00 Resp 20 02/19/20 09:00 BP 132/59 02/18/20 14:00 Pulse Ox 99 02/19/20 09:00 Intake & Output 02/18/20 02/19/20 02/19/20 18:59 06:59 18:59 Intake Total 2083.457 4311.519 449.547 Output Total 950 1090 335 Balance 1044.586 655.519 114.547 Weight 86.8 kg Intake: IV 150 1100 200 Lactated Ringers 1,000 ml 150 @ 125 mls/hr IV .Q8H [facility] Rx#:[id number] Sodium Chloride 0.45% 1, 1100 200 000 ml @ 100 mls/hr IV . Q10H [facility] Rx#:[id number] Intake, IV Titration 1844.586 645.519 249.547 Amount Magnesium Sulfate-D5w Pmx 100 1 gm In Dextrose/Water 1 100ml.bag @ 100 mls/hr IVPB Q1H [facility] Rx#: [id number] Morphine Sulfate (100 mg/ 56.712 93.432 109.208 2 ml) 100 mg In Sodium Chloride 0.9% 100 ml @ 8 MG/HR 8.16 mls/hr IV . [id number] [facility] Rx#:[id number] Piperacillin-Tazobactam 3 200 .375 gm In Sodium Chloride 0.9% 100 ml @ 25 mls/hr IVPB Q8HR [facility] Rx# :[id number] Sodium Chloride 0.45% 1, 500 100 000 ml @ 100 mls/hr IV . Q10H [facility] Rx#:[id number] Sodium Chloride 0.45% 1, 40 000 ml @ 40 mls/hr IV . Q24H [facility] Rx#:[id number] Sodium Chloride 0.9% 1, 625 000 ml @ 125 mls/hr IV . Q8H [facility] Rx#:[id number] propofoL 1,000 mg In 362.874 452.087 100.339 Empty Bag 1 bag @ Titrate IV .Q0M [facility] Rx#: [id number] Output: Chest Tube Drainage 120 180 5 Chest Tube Left Upper 120 180 5 Lateral Chest Urine 830 910 330 Other: Voiding Method Indwelling Catheter Indwelling Catheter Indwelling Catheter ABP, PAP, CO, CI - Last Documented Arterial Blood Pressure 149/54 - Labs CBC & Chem 7: 02/19/20 04:00 02/19/20 04:00 Labs: Abnormal Lab Results - Last 24 Hours (Table) 02/18/20 02/18/20 02/18/20 Range/Units 12:42 14:57 18:17 WBC (3.8-10.6) k/uL RBC (4.30-5.90) m/uL Hgb (13.0-17.5) gm/dL Hct (39.0-53.0) % Plt Count (150-450) k/uL Neutrophils # (1.3-7.7) k/uL Monocytes # (0-1.0) k/uL ABG pH (7.35-7.45) ABG pCO2 (35-45) mmHg ABG Total CO2 (19-24) mmol/L ABG O2 Saturation (94-97) % Sodium (137-145) mmol/L Glucose (74-99) mg/dL POC Glucose (mg/dL) 137 H 125 H (75-99) mg/dL Plasma Lactic Acid Blaine 2.5 H* (0.7-2.0) mmol/L Calcium (8.4-10.2) mg/dL AST (17-59) U/L ALT (4-49) U/L Total Protein (6.3-8.2) g/dL Albumin (3.5-5.0) g/dL 02/19/20 02/19/20 02/19/20 Range/Units 00:52 04:00 04:00 WBC 16.8 H (3.8-10.6) k/uL RBC 3.77 L (4.30-5.90) m/uL Hgb 11.6 L (13.0-17.5) gm/dL Hct 32.1 L (39.0-53.0) % Plt Count 108 L (150-450) k/uL Neutrophils # 13.0 H (1.3-7.7) k/uL Monocytes # 1.1 H (0-1.0) k/uL ABG pH (7.35-7.45) ABG pCO2 (35-45) mmHg ABG Total CO2 (19-24) mmol/L ABG O2 Saturation (94-97) % Sodium 132 L (137-145) mmol/L Glucose 118 H (74-99) mg/dL POC Glucose (mg/dL) 106 H (75-99) mg/dL Plasma Lactic Acid Blaine (0.7-2.0) mmol/L Calcium 7.6 L (8.4-10.2) mg/dL AST 227 H (17-59) U/L ALT 95 H (4-49) U/L Total Protein 4.1 L (6.3-8.2) g/dL Albumin 2.3 L (3.5-5.0) g/dL 02/19/20 Range/Units 05:11 WBC (3.8-10.6) k/uL RBC (4.30-5.90) m/uL Hgb (13.0-17.5) gm/dL Hct (39.0-53.0) % Plt Count (150-450) k/uL Neutrophils # (1.3-7.7) k/uL Monocytes # (0-1.0) k/uL ABG pH 7.49 H (7.35-7.45) ABG pCO2 31 L (35-45) mmHg ABG Total CO2 25 H (19-24) mmol/L ABG O2 Saturation 97.3 H (94-97) % Sodium (137-145) mmol/L Glucose (74-99) mg/dL POC Glucose (mg/dL) (75-99) mg/dL Plasma Lactic Acid Blaine (0.7-2.0) mmol/L Calcium (8.4-10.2) mg/dL AST (17-59) U/L ALT (4-49) U/L Total Protein (6.3-8.2) g/dL Albumin (3.5-5.0) g/dL Microbiology - Last 24 Hours (Table) 02/17/20 23:50 Gram Stain - Preliminary Sputum Sputum Culture - Preliminary
[2020-02-19] MEDS ORDERED: LORazepam 2 MG/ML INJ ONE ×2 (10:14→10:22)
[2020-02-19] MEDS ORDERED: propofoL 100 ML IV ONE (10:33)
--- NOTE | 2020-02-19 11:20 | XR ---
EXAMINATION TYPE: XR chest 1V portable DATE OF EXAM: 02/19/2020 CLINICAL HISTORY: Status post intubation, line placement TECHNIQUE: Portable supine view of the chest obtained COMPARISON: 02/19/2020 6:05 AM chest radiograph FINDINGS: Endotracheal tube distal tip 2.6 cm from the rony. Interval placement of left-sided inte rnal jugular central venous catheter with distal tip over the cavoatrial junction. Left-sided basilar chest tube. Enteric tube courses over the stomach with nonvisualization of the distal tip. Redemonst rated bibasilar atelectasis. Multiple left-sided rib fractures. The mediastinal silhouette within nor mal limits for size. IMPRESSION: 1. Left internal jugular central venous catheter distal tip over the cavoatrial junction. Supine tech nique limits evaluation for pneumothorax. 2. Additional tubes and lines as above. 3. Unchanged bibasilar atelectasis. 4. Left-sided rib fractures.
[2020-02-19] MEDS: SODIUM CHLORIDE 0.9% 1,000 ML IV SCH ×2 (11:44→21:52)
[2020-02-19 11:45] LABS: Glucose,Whole Blood 152 mg/dL (75-99)
--- NOTE | 2020-02-19 11:48 | P.PCN ---
Date of Procedure: 02/19/20 Preoperative Diagnosis: Acute respiratory failure, hypoxic Trauma/fall Delirium tremens Postoperative Diagnosis: Same Procedure(s) Performed: 1 Intubation 2 Insertion of a triple-lumen catheter Anesthesia: local Surgeon: Ayanna Royal Estimated Blood Loss (ml): 0 Pathology: other Condition: critical Disposition: ICU Operative Findings: Indication: Hemodynamic monitoring/Intravenous access. A time-out was completed verifying correct patient, procedure, site, positionin g, and implant(s) or special equipment if applicable. The patient was placed in a dependent position appropriate for central line placement based on the vein to be cannulated. The patient's left neck was prepped and draped in sterile fashion. 1% Lidocaine was used to anesthetize the surrounding skin area. A triple lumen 9F Cordis catheter was introduced into the left IJ vein using Seldinger technique. The catheter was threaded smoothly over the guide wire and appropriate blood return was obtained. Each lumen of the catheter was evacuated of air and flushed with sterile saline. The catheter was then sutured in place to the skin and a sterile dressing applied. Perfusion to the extremity distal to the point of catheter insertion was checked and found to be adequate. The patient tolerated the procedure well and there were no complications. Indication: Respiratory compromise. A time-out was completed verifying correct patient, procedure, site, positioning, and implant(s) or special equipment if applicable. The patient was positioned appropriately and a #8 endotracheal tube was placed under direct laryngoscopy. The tube was anchored at 22 cm at the teeth. Correct placement was confirmed by presence of bilateral breath sounds without air sounds in the abdomen on auscultation. An end-tidal CO2 monitor was also used to confirm tracheal placement of the ET tube. A chest x-ray was ordered to assess for pneumothorax and verify endotracheal tube placement. The patient tolerated the procedure well and there were no complications.
--- NOTE | 2020-02-19 11:56 | P.PN ---
Subjective Progress Note Date: 02/19/20 This is a 69-year-old male patient who was working on his gutters when he fell off a 15 foot ladder. This was unwitnessed. He end up calling his who in turn called EMS and the patient was brought in to the emergency department. Upon arrival, the patient was hypotensive and he was in shock. The patient initial chest x-ray showed several left-sided fractures and small amount of subcutaneous air in addition to a left-sided pneumothorax. The x-ray of the pelvis showed no evidence of any fracture or dislocation. The CAT scan of the brain showed age-related atrophy and chronic small vessel ischemic changes without any acute intracranial process. CAT scan of cervical spine showed no acute abnormalities. On and has Been of the cervical spine was done and the bone and soft tissue windows showed no acute abnormalities. There was no evidence of any fracture. Along with multiple left-sided rib fractures third extending to the seventh rib. There was also spending the sedation with estima daxa grade 3 injury the patient. The patient's hemoglobin dropped to 10.5. The patient received a total of 2 L of IV fluid and 40 minutes of packed RBC. Morning hemoglobin today is At 13.4. The patient was taken to the operating room yesterday. The patient underwent a left-sided chest tube insertion. The patient also had splenectomy done and following that the patient was kept intubated on a mechanical ventilator and he was transferred to the intensive care unit. Note that the patient takes morphine outpatient basis and he has chronic pain and chronic narcotic requirements and on outpatient basis he takes morphine sulfate in the form of MS Contin 50 mg every 12 hours. Overnight, the patient was intubated on mechanical ventilator. He was sedated with a combination of propofol and he was also placed on morphine drip after being given several boluses control his pain. This morning, Profore is running at 70 mg per KG per minute. Morphine is running at 8 mg an hour. The patient is on normal saline at rate of 85 mL an hour. The patient has a left sided chest tube. Total amount of output is in order 110 mL of serosanguineous material without evidence of any air leak. The ventilator setting shows an assist- control mode rate of 20 with a tidal volume of 500 and FiO2 of 40% with a PEEP of 5. The patient's FiO2 is down to 40% overnight. The morning blood gases showed a pH of 7.4 with a pCO2 of 37 and pO2 of 121. The chest x-ray from this morning shows that the patient has an indwelling left-sided chest tube without any signs or pneumothorax. There is also a basilar pleural-based opacity along with multiple left-sided rib fractures and ET tube is in a good location. He is at approximately slightly swollen probably related to an infiltrated IV. He did not require any pressors. He remains hemodynamically stable. Lactic acid remains slightly elevated at 2.9 On 02/19/2020, the patient's seen for a follow-up. Earlier this morning, the patient was doing well and patient was well sedated on propofol at 70 g per KG per minute and morphine at 8 mg an hour. He was on a mechanical ventilator on assist control mode at the rate of 20 with a tidal volume of 500 and FiO2 of 40% with a PEEP of 5. His chest x-ray showed no acute abnormalities. There was no evidence of any pneumothorax. The patient left-sided chest tube in place. No evidence of any air leak. The chest x-ray showed multiple left-sided rib fractures, stable right medial basilar atelectasis, stable left basilar infiltrate/atelectasis. No other acute abdominal masses otherwise noted. As for the blood gases, the patient a pH of 7.49 with a pCO2 of 31 and pO2 of 84. The patient was hemodynamically stable on no pressors. Hemoglobin was stable at 11.6. Lactic acid level is improved. Based on this, the patient was given a sedation holiday. Initially he recovered nicely from this sedation. He was kept on morphine for pain control at a lower dose of 12 mg an hour. He was taken off the propofol. He was given as pertains breathing trial and he seemed to be quite comfortable and he was getting progressively more restless. At that point, I made decision to extubate the patient, and he was placed on oxygen by nasal cannula. The first 20-30 minutes, the patient did well post extubation. Subsequently, he became progressively more restless, agitated, he was having tremors and he was thrashing around. He was not following any commands. He became progressively more tachycardic. He went into atrial fibrillation with rapid ventricular response with a heart rate in the 180s. He became HYPERTENSIVE with systolic blood pressure went up to 200s. Based on all this, the patient was started on side effects drip for blood pressure control. I thought that the patient was withdrawing from alcohol. It's clear to me that the patient has a component of alcoholism and it was noted that the patient was intoxicated alcohol at time of admission. As such, he could have been in delirium tremens. He was given a total of 4 mg of Ativan without any major improvement. At that point, I decided to reintubate the patient. He was placed again on propofol and morphine drip was continued and he was intubated in the intensive care unit without any major difficulties. A triple lumen cath was also inserted. As for atrial fibrillation, the patient was started on amiodarone drip per protocol. Chest x-ray post intubation showed no acute abnormalities. She wasn't in that location. Triple lumen catheter was also in good location. NG tube was also be inserted. Objective - Vital Signs Vital signs: Vital Signs Temp 98.8 F 02/19/20 08:00 Pulse 168 H 02/19/20 10:00 Resp 24 02/19/20 10:00 BP 132/59 02/18/20 14:00 Pulse Ox 96 02/19/20 10:00 Intake & Output 02/18/20 02/19/20 02/19/20 18:59 06:59 18:59 Intake Total 1765.928 1932.519 500.280 Output Total 950 1090 415 Balance 1044.586 655.519 85.280 Weight 86.8 kg Intake: IV 150 1100 200 Lactated Ringers 1,000 ml 150 @ 125 mls/hr IV .Q8H [facility] Rx#:[id number] Sodium Chloride 0.45% 1, 1100 200 000 ml @ 100 mls/hr IV . Q10H [facility] Rx#:[id number] Intake, IV Titration 1844.586 645.519 300.280 Amount Clevidipine Butyrate 25 10.733 mg In Empty Bag 1 bag @ 1 MG/HR 2 mls/hr IV .Q24H [facility] Rx#:[id number] Magnesium Sulfate-D5w Pmx 100 1 gm In Dextrose/Water 1 100ml.bag @ 100 mls/hr IVPB Q1H [facility] Rx#: [id number] Morphine Sulfate (100 mg/ 56.712 93.432 109.208 2 ml) 100 mg In Sodium Chloride 0.9% 100 ml @ 2 MG/HR 2.04 mls/hr IV . Q24H [facility] Rx#:[id number] Piperacillin-Tazobactam 3 200 .375 gm In Sodium Chloride 0.9% 100 ml @ 25 mls/hr IVPB Q8HR [facility] Rx# :[id number] Sodium Chloride 0.45% 1, 500 100 000 ml @ 100 mls/hr IV . Q10H [facility] Rx#:[id number] Sodium Chloride 0.45% 1, 80 000 ml @ 40 mls/hr IV . Q24H [facility] Rx#:[id number] Sodium Chloride 0.9% 1, 625 000 ml @ 125 mls/hr IV . Q8H [facility] Rx#:[id number] propofoL 1,000 mg In 362.874 452.087 100.339 Empty Bag 1 bag @ Titrate IV .Q0M [facility] Rx#: [id number] Output: Chest Tube Drainage 120 180 5 Chest Tube Left Upper 120 180 5 Lateral Chest Urine 830 910 410 Other: Voiding Method Indwelling Catheter Indwelling Catheter Indwelling Catheter ABP, PAP, CO, CI - Last Documented Arterial Blood Pressure 207/88 - Exam Gen. appearance the patient is sedated, comfortable not in acute respiratory distress. Orotracheal and orogastric tube are both in place. Head exam was generally normal. There was no scleral icterus or corneal arcus. Mucous membranes were moist. Neck was supple and without jugular venous distension, thyromegaly, or carotid bruits. Carotids were easily palpable bilaterally. There was no adenopathy. The patient has a left IJ triple-lumen catheter and exit site is dry clean and intact. Lungs sounds are diminished bilaterally and the patient is a left sided chest tube in place. Chest tube is in a good location. Breath sounds are slightly diminished in left lung base compared to the right. No evidence of any air leak and the chest tube Pleur-evac. Cardiac exam revealed the PMI to be normally situated and sized. The rhythm was regular and no extrasystoles were noted during several minutes of auscultation. The first and second heart sounds were normal and physiologic splitting of the second heart sound was noted. There were no murmurs, rubs, clicks, or gallops. Abdomen is soft and nontender. The patient has a mid abdominal scar which is dry clean and intact. A surgical scar/wound is dry clean and intact. No direct distention. No rebound distention. No guarding. Bowel sounds are hypoactive at this point in time. Examination of the extremities revealed easily palpable radial, femoral and pedal pulses. There was no cyanosis, clubbing or edema. Examination of the skin revealed no evidence of significant rashes, suspicious appearing nevi or other concerning lesions. Neurologic the patient is arousable. Currently he is well sedated. Pupils are equal and reactive to light. No signs of any head trauma. No nystagmus. No clonus. No Babinski. - Labs CBC & Chem 7: 02/19/20 04:00 02/19/20 04:00 Labs: Abnormal Lab Results - Last 24 Hours (Table) 02/18/20 02/18/20 02/18/20 Range/Units 12:42 14:57 18:17 WBC (3.8-10.6) k/uL RBC (4.30-5.90) m/uL Hgb (13.0-17.5) gm/dL Hct (39.0-53.0) % Plt Count (150-450) k/uL Neutrophils # (1.3-7.7) k/uL Monocytes # (0-1.0) k/uL ABG pH (7.35-7.45) ABG pCO2 (35-45) mmHg ABG Total CO2 (19-24) mmol/L ABG O2 Saturation (94-97) % Sodium (137-145) mmol/L Glucose (74-99) mg/dL POC Glucose (mg/dL) 137 H 125 H (75-99) mg/dL Plasma Lactic Acid Blaine 2.5 H* (0.7-2.0) mmol/L Calcium (8.4-10.2) mg/dL AST (17-59) U/L ALT (4-49) U/L Total Protein (6.3-8.2) g/dL Albumin (3.5-5.0) g/dL 02/19/20 02/19/20 02/19/20 Range/Units 00:52 04:00 04:00 WBC 16.8 H (3.8-10.6) k/uL RBC 3.77 L (4.30-5.90) m/uL Hgb 11.6 L (13.0-17.5) gm/dL Hct 32.1 L (39.0-53.0) % Plt Count 108 L (150-450) k/uL Neutrophils # 13.0 H (1.3-7.7) k/uL Monocytes # 1.1 H (0-1.0) k/uL ABG pH (7.35-7.45) ABG pCO2 (35-45) mmHg ABG Total CO2 (19-24) mmol/L ABG O2 Saturation (94-97) % Sodium 132 L (137-145) mmol/L Glucose 118 H (74-99) mg/dL POC Glucose (mg/dL) 106 H (75-99) mg/dL Plasma Lactic Acid Blaine (0.7-2.0) mmol/L Calcium 7.6 L (8.4-10.2) mg/dL AST 227 H (17-59) U/L ALT 95 H (4-49) U/L Total Protein 4.1 L (6.3-8.2) g/dL Albumin 2.3 L (3.5-5.0) g/dL 02/19/20 02/19/20 Range/Units 05:11 11:43 WBC (3.8-10.6) k/uL RBC (4.30-5.90) m/uL Hgb (13.0-17.5) gm/dL Hct (39.0-53.0) % Plt Count (150-450) k/uL Neutrophils # (1.3-7.7) k/uL Monocytes # (0-1.0) k/uL ABG pH 7.49 H (7.35-7.45) ABG pCO2 31 L (35-45) mmHg ABG Total CO2 25 H (19-24) mmol/L ABG O2 Saturation 97.3 H (94-97) % Sodium (137-145) mmol/L Glucose (74-99) mg/dL POC Glucose (mg/dL) 152 H (75-99) mg/dL Plasma Lactic Acid Blaine (0.7-2.0) mmol/L Calcium (8.4-10.2) mg/dL AST (17-59) U/L ALT (4-49) U/L Total Protein (6.3-8.2) g/dL Albumin (3.5-5.0) g/dL Microbiology - Last 24 Hours (Table) 02/17/20 23:50 Gram Stain - Preliminary Sputum Sputum Culture - Preliminary Assessment and Plan Plan: 1 fall off a ladder with significant trauma to the chest and abdomen. 2 traumatic grade 3 laceration of the spleen along with hemoperitoneum and the patient is post splenectomy and the patient is postop day #2 3 traumatic left-sided rib fractures third drip through seventh rib along with a 30% left-sided pneumothorax post chest tube insertion with adequate expansion of the left lung 4 shock at the time of admission, essentially due to hemorrhagic shock, improved with fluid resuscitation the patient was given a total of 4 units of packed RBC and 2 L of IV fluid and currently is hemodynamically stable and he is off pressors. Hemoglobin is stable and the patient is currently on no pressors. 5 blood loss anemia, acute, secondary to pneumoperitoneum, transfused with a total of 4 units of packed RBC, hemoglobin remains stable. 6 acute ventilator-dependent respiratory failure, hypoxic, secondary to above. The patient was extubated today and within 30 minutes she became quite restless and agitated and his presentation was typical of acute delirium tremens probably related to alcohol withdrawal. I doubt this was a narcotic withdrawal despite the fact that the patient has been taking narcotics on outpatient basis. Noted the patient was placed on morphine sulfate for pain control during this current admission for an control. As such, unlikely to be related to narcotic withdrawal. I suspect acute upper withdrawal with delirium tremens as the patient was having an anatomic response, shaky, tachycardic, hypertensive and he was quite restless and agitated. He had to be reintubated and placed on a mechanical ventilator again. 7 chronic neck pain and the patient had been taken MS Contin on outpatient basis 50 mg twice a day 8 coronary artery disease appears bypass surgery 9 hyperlipidemia 10 BPH 11 suspected alcoholism with symptoms of delirium tremens currently intubated on propofol and morphine sulfate infusions. Plan Continue ventilator support without any changes Keep the patient on sedation with accommodation a propofol and morphine sulfate for pain control Monitor the output from the chest tube and monitor the air leak. The chest exit from today shows no evidence of pneumothorax Monitor hemoglobin Empiric antibiotic coverage with IV Zosyn Establish a arterial line catheter We'll initiate tube feeds. The patient may need to stay on a mechanical ventilator for around 24-48 hours until the delirium tremens settled and the patient will be treated during this time with propofol. Daily sedation holidays was also done. May need to be intubated for pain control and stabilization for another 24 hours with the potential possible weaning and extubation with the next 24 hours. We'll continue to follow. Condition is critical for now. Case was discussed with the family Time with Patient: Greater than 30
--- NOTE | 2020-02-19 12:57 | P.PN ---
Subjective 69-year-old male was cleaning gutters fell from skin feet ladder was brought into emergency department found to have several left-sided fractures left-sided pneumothorax with a left-sided chest tube presently patient is presently intubated patient has multiple left-sided fractures from third to seventh rib patient also had a splenectomy for splenic injury. Patient is presently sedated with propofol and also morphine drip patient is presently on ventilatory support blood gases showed normal pH pCO2 and pO2 are within normal limits as well pat ient is presently onZosyn patient had lactic acidosis secondary tolactated Ringer's. Patient is hyperchloremic because of which probably will start him on half-normal saline. 02/19/2020 Patient is expected today and shortly after that patient didn't tolerate that and patient ended up undergoing an atrial fibrillation patient was started on amiodarone patient was subsequently reintubated. Patient is bit hyponatremic because of extensive switching the IV fluids to normal saline instead of half- normal saline. Patient is also getting amiodarone. D5 water. Patient is not requiring any pressors at this time. Please refer to intensive is documentation for further details of ventilator settings. review of systems: Unable to obtain due to his clinical condition All inpatient medications were reviewed and appropriate changes in these medications as dictated in the interval history and assessment and plan. Objective - Vital Signs Vital signs: Vital Signs Temp 98.8 F 02/19/20 08:00 Pulse 168 H 02/19/20 10:00 Resp 24 02/19/20 10:00 BP 132/59 02/18/20 14:00 Pulse Ox 96 02/19/20 10:00 Intake & Output 02/18/20 02/19/20 02/19/20 18:59 06:59 18:59 Intake Total 8774.655 3041.519 536.128 Output Total 950 1090 415 Balance 1044.586 655.519 121.128 Weight 86.8 kg Intake: IV 150 1100 200 Lactated Ringers 1,000 ml 150 @ 125 mls/hr IV .Q8H [facility] Rx#:[id number] Sodium Chloride 0.45% 1, 1100 200 000 ml @ 100 mls/hr IV . Q10H [facility] Rx#:[id number] Intake, IV Titration 1844.586 645.519 336.128 Amount Clevidipine Butyrate 25 10.733 mg In Empty Bag 1 bag @ 1 MG/HR 2 mls/hr IV .Q24H [facility] Rx#:[id number] Magnesium Sulfate-D5w Pmx 100 1 gm In Dextrose/Water 1 100ml.bag @ 100 mls/hr IVPB Q1H [facility] Rx#: [id number] Morphine Sulfate (100 mg/ 56.712 93.432 109.208 2 ml) 100 mg In Sodium Chloride 0.9% 100 ml @ 2 MG/HR 2.04 mls/hr IV . Q24H [facility] Rx#:[id number] Piperacillin-Tazobactam 3 200 .375 gm In Sodium Chloride 0.9% 100 ml @ 25 mls/hr IVPB Q8HR [facility] Rx# :[id number] Sodium Chloride 0.45% 1, 500 100 000 ml @ 100 mls/hr IV . Q10H [facility] Rx#:[id number] Sodium Chloride 0.45% 1, 80 000 ml @ 40 mls/hr IV . Q24H [facility] Rx#:[id number] Sodium Chloride 0.9% 1, 625 000 ml @ 125 mls/hr IV . Q8H [facility] Rx#:[id number] propofoL 1,000 mg In 362.874 452.087 136.187 Empty Bag 1 bag @ Titrate IV .Q0M [facility] Rx#: [id number] Output: Chest Tube Drainage 120 180 5 Chest Tube Left Upper 120 180 5 Lateral Chest Urine 830 910 410 Other: Voiding Method Indwelling Catheter Indwelling Catheter Indwelling Catheter ABP, PAP, CO, CI - Last Documented Arterial Blood Pressure 207/88 - Exam PHYSICAL EXAMINATION: GENERAL: intubated sedated. Well developed, well nourished. HEENT: Pupils are round and equally reacting to light. EOMI. No scleral icterus. No conjunctival pallor. Normocephalic, atraumatic. No pharyngeal erythema. No thyromegaly. CARDIOVASCULAR: S1 and S2 present. No murmurs, rubs, or gallops. PULMONARY: Chest is clear to auscultation, no wheezing or crackles. patient has chest tube in place ABDOMEN: Soft, nontender, nondistended, normoactive bowel sounds. No palpable organomegaly. MUSCULOSKELETAL: No joint swelling or deformity. EXTREMITIES: No cyanosis, clubbing, or pedal edema. NEUROLOGICAL: rass score of around +1 SKIN: No rashes. - Labs CBC & Chem 7: 02/19/20 04:00 02/19/20 04:00 Labs: Abnormal Lab Results - Last 24 Hours (Table) 02/18/20 02/18/20 02/19/20 Range/Units 14:57 18:17 00:52 WBC (3.8-10.6) k/uL RBC (4.30-5.90) m/uL Hgb (13.0-17.5) gm/dL Hct (39.0-53.0) % Plt Count (150-450) k/uL Neutrophils # (1.3-7.7) k/uL Monocytes # (0-1.0) k/uL ABG pH (7.35-7.45) ABG pCO2 (35-45) mmHg ABG Total CO2 (19-24) mmol/L ABG O2 Saturation (94-97) % Sodium (137-145) mmol/L Glucose (74-99) mg/dL POC Glucose (mg/dL) 125 H 106 H (75-99) mg/dL Plasma Lactic Acid Blaine 2.5 H* (0.7-2.0) mmol/L Calcium (8.4-10.2) mg/dL AST (17-59) U/L ALT (4-49) U/L Total Protein (6.3-8.2) g/dL Albumin (3.5-5.0) g/dL 02/19/20 02/19/20 02/19/20 Range/Units 04:00 04:00 05:11 WBC 16.8 H (3.8-10.6) k/uL RBC 3.77 L (4.30-5.90) m/uL Hgb 11.6 L (13.0-17.5) gm/dL Hct 32.1 L (39.0-53.0) % Plt Count 108 L (150-450) k/uL Neutrophils # 13.0 H (1.3-7.7) k/uL Monocytes # 1.1 H (0-1.0) k/uL ABG pH 7.49 H (7.35-7.45) ABG pCO2 31 L (35-45) mmHg ABG Total CO2 25 H (19-24) mmol/L ABG O2 Saturation 97.3 H (94-97) % Sodium 132 L (137-145) mmol/L Glucose 118 H (74-99) mg/dL POC Glucose (mg/dL) (75-99) mg/dL Plasma Lactic Acid Blaine (0.7-2.0) mmol/L Calcium 7.6 L (8.4-10.2) mg/dL AST 227 H (17-59) U/L ALT 95 H (4-49) U/L Total Protein 4.1 L (6.3-8.2) g/dL Albumin 2.3 L (3.5-5.0) g/dL 02/19/20 Range/Units 11:43 WBC (3.8-10.6) k/uL RBC (4.30-5.90) m/uL Hgb (13.0-17.5) gm/dL Hct (39.0-53.0) % Plt Count (150-450) k/uL Neutrophils # (1.3-7.7) k/uL Monocytes # (0-1.0) k/uL ABG pH (7.35-7.45) ABG pCO2 (35-45) mmHg ABG Total CO2 (19-24) mmol/L ABG O2 Saturation (94-97) % Sodium (137-145) mmol/L Glucose (74-99) mg/dL POC Glucose (mg/dL) 152 H (75-99) mg/dL Plasma Lactic Acid Blaine (0.7-2.0) mmol/L Calcium (8.4-10.2) mg/dL AST (17-59) U/L ALT (4-49) U/L Total Protein (6.3-8.2) g/dL Albumin (3.5-5.0) g/dL Microbiology - Last 24 Hours (Table) 02/17/20 23:50 Gram Stain - Preliminary Sputum Sputum Culture - Preliminary Assessment and Plan Plan: -, leading topneumothorax anymore for her toenail for which patient has a chest tube -Splenic injury status post splenectomy patient had appropriate on him as well postoperative day 1. -Acute ventilatory dependent respiratory failure hypoxic secondary to polytrauma, pneumothorax and splenic injurycontinue with the ventilatory support and wean off as tolerated. days of empiric antibiotics with Zosyn -Traumatic left-sided rib fractures -hyponatremia: Secondary to half-normal saline was switched to normal saline -Hemorrhagic shock on admission which improved patient received 4 units of PRBC transfusion presently hemodynamically stable is not requiring any pressors -acuteblood loss anemia from polytrauma pneumoperitoneum -history of carotid artery disease with previous bypass surgery -Hyperlipidemia -Benign prostatic hypertrophy
--- NOTE | 2020-02-19 15:31 | PN ---
PROGRESS NOTE DATE OF SERVICE: 02/19/2020 REASON FOR FOLLOWUP: Leukocytosis and post splenectomy. INTERVAL HISTORY: The patient was extubated this morning, did show respiratory distress had to be intubated. The patient is currently hemodynamically stable, not on pressor support. FiO2 is currently 50%. Most of the information for this patient has been reported; however, no change by nursing staff. PHYSICAL EXAMINATION: Blood pressure 100/53 with a pulse of 131, temperature is 98.9, he is 98% on 50% FiO2. General description is an elderly male, intubated on the vent. RESPIRATORY SYSTEM: Unlabored breathing, decreased breath sounds. No wheeze. HEART: S1, S2. Regular rate and rhythm. LABS: Hemoglobin 11.4, white count.6.8, BUN of 4, creatinine 1.74. Sputum culture currently pending. Chest x-ray with left-sided rib fracture and some atelectasis. DIAGNOSTIC IMPRESSION AND PLAN: 1. Patient with leukocytosis more likely reactive in this patient, status post splenectomy and did have a significant trauma after a fall. Patient is currently broadly covered with Zosyn to continue while waiting for the culture to finalize. 2. Patient post splenectomy, will need vaccination day 14 for Haemophilus pneumococcus and meningococcus. Continue supportive care. MMODL / IJN: [id number] /
[2020-02-19] MEDS: AMIODARONE 300 MG in DEXTROSE 5% IN WATER 250 ML IV SCH ×2 (17:07)
[2020-02-19 17:17] LABS: Glucose,Whole Blood 101 mg/dL (75-99)
[2020-02-19] MEDS: TAMSULOSIN 0.4 MG CAP.ER.24H PO SCH (20:25)
[2020-02-19] MEDS: ATORVASTATIN 20 MG TAB PO SCH (20:26)
[2020-02-19] MEDS: FINASTERIDE 5 MG TAB PO SCH (20:26)
[2020-02-19] MEDS ORDERED: SODIUM CHLORIDE 0.9% 1,000 ML IV ONE (20:43)
[2020-02-20 00:07] LABS: Glucose,Whole Blood 64 mg/dL (75-99)
[2020-02-20 00:10] LABS: Glucose,Whole Blood 122 mg/dL (75-99)
[2020-02-20 00:13] LABS: Glucose,Whole Blood 96 mg/dL (75-99)
[2020-02-20] MEDS: INSULIN ASPART (NovoLOG) 100 UNIT/ML VIAL SQ SCH ×4 (00:14→17:56)
[2020-02-20] MEDS: MORPHINE SULFATE (100 MG/2 ML) 100 MG in SODIUM CHLORIDE 0.9% 100 ML IV SCH (01:26)
[2020-02-20] MEDS: PIPERACILLIN-TAZOBACTAM 3.375 GM in SODIUM CHLORIDE 0.9% 100 ML IVPB SCH ×3 (01:28→16:38)
[2020-02-20] MEDS: AMIODARONE 300 MG in DEXTROSE 5% IN WATER 250 ML IV SCH ×2 (03:36)
[2020-02-20 04:56] LABS: HCT 27.4 % (39.0-53.0); MCH 30.4 pg (25.0-35.0); MCHC 35.3 g/dL (31.0-37.0); MCV 86.2 fL (80.0-100.0); Mean Platelet Volume 9.1; Platelet Count 122 k/uL (150-450); RBC 3.18 m/uL (4.30-5.90); RDW 14.6 % (11.5-15.5); WBC 13.5 k/uL (3.8-10.6)
[2020-02-20 04:56] LABS: African American GFR (CKD) >90 (>60 ml/min/1.73 sqM); Albumin 2.1 g/dL (3.5-5.0); Anion Gap 1 mmol/L; Calcium 7.1 mg/dL (8.4-10.2); Carbon Dioxide 20 mmol/L (22-30); Chloride 111 mmol/L (98-107); Glucose 111 mg/dL (74-99); Non-African American GFR(CKD) >90 (>60 ml/min/1.73 sqM); Sodium 132 mmol/L (137-145); Total Bilirubin 1.1 mg/dL (0.2-1.3); Total Protein 4.2 g/dL (6.3-8.2)
[2020-02-20 04:57] LABS: ALT 119 U/L (4-49); AST 318 U/L (17-59); Alkaline Phosphatase 82 U/L (38-126); Blood Urea Nitrogen 12 mg/dL (9-20)
[2020-02-20 05:10] LABS: HGB 9.7 gm/dL (13.0-17.5)
[2020-02-20 05:14] LABS: ABG Base Excess -3.3 mmol/L; ABG HCO3 20 mmol/L (21-25); ABG Oxygen Saturation 98.1 % (94-97); ABG PCO2 27 mmHg (35-45); ABG PH 7.48 (7.35-7.45); ABG PO2 97 mmHg (83-108); ABG TCO2 21 mmol/L (19-24); Allen Test Performed? Yes
[2020-02-20 05:51] LABS: Glucose,Whole Blood 124 mg/dL (75-99)
[2020-02-20 05:51] LABS: Glucose,Whole Blood 47 mg/dL (75-99)
[2020-02-20] MEDS: SODIUM CHLORIDE 0.9% 1,000 ML IV SCH ×2 (07:15→17:53)
[2020-02-20 07:46] LABS: Glucose,Whole Blood 180 mg/dL (75-99)
--- NOTE | 2020-02-20 08:43 | XR ---
EXAMINATION TYPE: XR chest 1V portable DATE OF EXAM: 02/20/2020 COMPARISON: 02/19/2020 INDICATION: Mechanical event difficulty breathing TECHNIQUE: Single frontal view of the chest is obtained. FINDINGS: The heart size is normal. The pulmonary vasculature is normal. Small left pleural effusion is likely present. Some mild bibasilar atelectasis is present. Left-sided rib fractures are evident. No pneumothorax is evident. Left-sided chest tube is present at the lung base. Nasogastric tube transverses the thorax tip in the left upper quadrant of the abdomen. Endotracheal tube tip is above the rony. Left central venous c atheter tip is in the superior vena cava region. IMPRESSION: 1. Mild bibasilar infiltrates improving from comparison. Small left pleural effusion may be present. 2. Multiple lines and catheters discussed above.
[2020-02-20] MEDS: ENOXAPARIN 40 MG/0.4 ML SYRINGE SQ SCH (09:04)
[2020-02-20] MEDS: CHLORHEXIDINE GLUCONATE 15 ML CUP MUCOUS MEM SCH ×2 (09:04→22:10)
--- NOTE | 2020-02-20 10:14 | P.PN ---
Subjective 69-year-old male was cleaning gutters fell from skin feet ladder was brought into emergency department found to have several left-sided fractures left-sided pneumothorax with a left-sided chest tube presently patient is presently intubated patient has multiple left-sided fractures from third to seventh rib patient also had a splenectomy for splenic injury. Patient is presently sedated with propofol and also morphine drip patient is presently on ventilatory support blood gases showed normal pH pCO2 and pO2 are within normal limits as well pat ient is presently onZosyn patient had lactic acidosis secondary tolactated Ringer's. Patient is hyperchloremic because of which probably will start him on half-normal saline. 02/19/2020 Patient is expected today and shortly after that patient didn't tolerate that and patient ended up undergoing an atrial fibrillation patient was started on amiodarone patient was subsequently reintubated. Patient is bit hyponatremic because of extensive switching the IV fluids to normal saline instead of half- normal saline. Patient is also getting amiodarone. D5 water. Patient is not requiring any pressors at this time. Please refer to intensive is documentation for further details of ventilator settings. 02/20/2020 Patient developed ongoing trial patient is having sedation vacation patient heart rate is better controlled patient overall clinical condition is bit better today review of systems: Unable to obtain due to his clinical condition All inpatient medications were reviewed and appropriate changes in these medications as dictated in the interval history and assessment and plan. Objective - Vital Signs Vital signs: Vital Signs Temp 98.2 F 02/20/20 04:00 Pulse 63 02/20/20 07:00 Resp 20 02/20/20 07:00 BP 108/52 02/20/20 07:00 Pulse Ox 99 02/20/20 07:00 Intake & Output 02/19/20 02/20/20 02/20/20 18:59 06:59 18:59 Intake Total 5467.299 0746.926 144.398 Output Total 1105 1175 75 Balance 814.994 5947.926 69.398 Intake: IV 200 2000 100 Piperacillin-Tazobactam 3 100 .375 gm In Sodium Chloride 0.9% 100 ml @ 25 mls/hr IVPB Q8HR [facility] Rx# :[id number] Sodium Chloride 0.45% 1, 200 900 100 000 ml @ 100 mls/hr IV . Q10H [facility] Rx#:[id number] Sodium Chloride 0.9% 1, 1000 000 ml @ 999 mls/hr IV . Q1H1M [facility] Rx#:[id number] Intake, IV Titration 1355.398 681.926 44.398 Amount Amiodarone 300 mg In 250 Dextrose 5% in Water 250 ml @ 0.5 MG/MIN 25 mls/hr IV .Q10H [facility] Rx#: [id number] Clevidipine Butyrate 25 10.733 mg In Empty Bag 1 bag @ 1 MG/HR 2 mls/hr IV .Q24H [facility] Rx#:[id number] Morphine Sulfate (100 mg/ 109.208 31.926 2 ml) 100 mg In Sodium Chloride 0.9% 100 ml @ 2 MG/HR 2.04 mls/hr IV . Q24H [facility] Rx#:[id number] Piperacillin-Tazobactam 3 100 .375 gm In Sodium Chloride 0.9% 100 ml @ 25 mls/hr IVPB Q8HR [facility] Rx# :[id number] Sodium Chloride 0.45% 1, 80 000 ml @ 40 mls/hr IV . Q24H [facility] Rx#:[id number] Sodium Chloride 0.9% 1, 800 100 000 ml @ 100 mls/hr IV . Q10H [facility] Rx#:[id number] propofoL 1,000 mg In 255.457 300.000 44.398 Empty Bag 1 bag @ Titrate IV .Q0M [facility] Rx#: [id number] Lipid 100 Sodium Chloride 0.45% 1, 100 000 ml @ 100 mls/hr IV . Q10H [facility] Rx#:[id number] Output: Chest Tube Drainage 5 240 Chest Tube Left Upper 5 240 Lateral Chest Urine 1100 935 75 Other: Voiding Method Indwelling Catheter Indwelling Catheter ABP, PAP, CO, CI - Last Documented Arterial Blood Pressure 119/44 - Exam PHYSICAL EXAMINATION: GENERAL: intubated sedated. Well developed, well nourished. HEENT: Pupils are round and equally reacting to light. EOMI. No scleral icterus. No conjunctival pallor. Normocephalic, atraumatic. No pharyngeal erythema. No thyromegaly. CARDIOVASCULAR: S1 and S2 present. No murmurs, rubs, or gallops. PULMONARY: Chest is clear to auscultation, no wheezing or crackles. patient has chest tube in place ABDOMEN: Soft, nontender, nondistended, normoactive bowel sounds. No palpable organomegaly. MUSCULOSKELETAL: No joint swelling or deformity. EXTREMITIES: No cyanosis, clubbing, or pedal edema. NEUROLOGICAL: rass score of around +1 SKIN: No rashes. - Labs CBC & Chem 7: 02/20/20 04:45 02/20/20 04:35 Labs: Abnormal Lab Results - Last 24 Hours (Table) 02/17/20 02/19/20 02/19/20 Range/Units 18:03 11:43 17:16 WBC (3.8-10.6) k/uL RBC (4.30-5.90) m/uL Hgb (13.0-17.5) gm/dL Hct (39.0-53.0) % Plt Count (150-450) k/uL ABG pH (7.35-7.45) ABG pCO2 (35-45) mmHg ABG HCO3 (21-25) mmol/L ABG O2 Saturation (94-97) % Sodium (137-145) mmol/L Chloride (98-107) mmol/L Carbon Dioxide (22-30) mmol/L Glucose (74-99) mg/dL POC Glucose (mg/dL) 180 H 152 H 101 H (75-99) mg/dL Calcium (8.4-10.2) mg/dL AST (17-59) U/L ALT (4-49) U/L Total Protein (6.3-8.2) g/dL Albumin (3.5-5.0) g/dL 02/20/20 02/20/20 02/20/20 Range/Units 00:05 00:07 04:35 WBC (3.8-10.6) k/uL RBC (4.30-5.90) m/uL Hgb (13.0-17.5) gm/dL Hct (39.0-53.0) % Plt Count (150-450) k/uL ABG pH (7.35-7.45) ABG pCO2 (35-45) mmHg ABG HCO3 (21-25) mmol/L ABG O2 Saturation (94-97) % Sodium 132 L (137-145) mmol/L Chloride 111 H (98-107) mmol/L Carbon Dioxide 20 L (22-30) mmol/L Glucose 111 H (74-99) mg/dL POC Glucose (mg/dL) 64 L 122 H (75-99) mg/dL Calcium 7.1 L (8.4-10.2) mg/dL AST 318 H (17-59) U/L ALT 119 H (4-49) U/L Total Protein 4.2 L (6.3-8.2) g/dL Albumin 2.1 L (3.5-5.0) g/dL 02/20/20 02/20/20 02/20/20 Range/Units 04:45 05:10 05:44 WBC 13.5 H (3.8-10.6) k/uL RBC 3.18 L (4.30-5.90) m/uL Hgb 9.7 L D (13.0-17.5) gm/dL Hct 27.4 L (39.0-53.0) % Plt Count 122 L (150-450) k/uL ABG pH 7.48 H (7.35-7.45) ABG pCO2 27 L (35-45) mmHg ABG HCO3 20 L (21-25) mmol/L ABG O2 Saturation 98.1 H (94-97) % Sodium (137-145) mmol/L Chloride (98-107) mmol/L Carbon Dioxide (22-30) mmol/L Glucose (74-99) mg/dL POC Glucose (mg/dL) 47 L (75-99) mg/dL Calcium (8.4-10.2) mg/dL AST (17-59) U/L ALT (4-49) U/L Total Protein (6.3-8.2) g/dL Albumin (3.5-5.0) g/dL 02/20/20 Range/Units 05:50 WBC (3.8-10.6) k/uL RBC (4.30-5.90) m/uL Hgb (13.0-17.5) gm/dL Hct (39.0-53.0) % Plt Count (150-450) k/uL ABG pH (7.35-7.45) ABG pCO2 (35-45) mmHg ABG HCO3 (21-25) mmol/L ABG O2 Saturation (94-97) % Sodium (137-145) mmol/L Chloride (98-107) mmol/L Carbon Dioxide (22-30) mmol/L Glucose (74-99) mg/dL POC Glucose (mg/dL) 124 H (75-99) mg/dL Calcium (8.4-10.2) mg/dL AST (17-59) U/L ALT (4-49) U/L Total Protein (6.3-8.2) g/dL Albumin (3.5-5.0) g/dL Microbiology - Last 24 Hours (Table) 02/17/20 23:50 Gram Stain - Final Sputum Sputum Culture - Final Assessment and Plan Plan: - traumatic hydro-pneumothorax anymore for her toenail for which patient has a chest tube -Splenic injury status post splenectomy patient had appropriate on him as well postoperative day 3. -Acute ventilatory dependent respiratory failure hypoxic secondary to polytrauma, pneumothorax and splenic injurycontinue with the ventilatory support and wean off as tolerated. days of empiric antibiotics with Zosyn -Traumatic left-sided rib fractures -hyponatremia: Secondary to half-normal saline was switched to normal saline -Hemorrhagic shock on admission which improved patient received 4 units of PRBC transfusion presently hemodynamically stable is not requiring any pressors -acuteblood loss anemia from polytrauma pneumoperitoneum -history of carotid artery disease with previous bypass surgery -Hyperlipidemia -Benign prostatic hypertrophy
--- NOTE | 2020-02-20 10:29 | P.PN ---
Subjective Progress Note Date: 02/20/20 CHIEF COMPLAINT: Fall with Trauma HISTORY OF PRESENT ILLNESS: 69-year-old male who fell 15 feet off the top of the ladder. Patient's CAT scan was performed showing a large left pneumothorax as well as multiple rib fractures and hemoperitoneum and a ruptured spleen. Patient is status post splenectomy. He is on antibiotics. During weaning trial yesterday patient went atrial fibrillation with rapid ventricular response and had to be re-intubated. He is undergoing another weaning trial today. He had a temp of 100.6. WBC 13.5, Hgb 9.7 PHYSICAL EXAM: VITAL SIGNS: Reviewed. GENERAL: Well-developed in no acute distress. HEENT: No sclera icterus. Extraocular movements grossly intact. Moist buccal mucosa. Head is atraumatic, normocephalic. ABDOMEN: Soft. Nondistended. Incision has small amount of bleeding on dressing otherwise clean, dry and intact NEUROLOGIC: patient is on the vent and sedated ASSESSMENT: 1. 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 POD#3 2. Left-sided pneumothorax has chest tube in place 3. Multiple left-sided rib fractures 4. Alcohol intoxication 5. Acute hypoxic ventilatory dependent respiratory failure undergoing weaning trial today PLAN: -Continue IV fluids -On IV antibiotics -lovenox for DVT prophylaxis Physician Cold Storage Worker note has been reviewed by physician. Signing provider agrees with the documented findings, assessment, and plan of care. Objective - Vital Signs Vital signs: Vital Signs Temp 97.1 F L 02/20/20 08:00 Pulse 70 02/20/20 10:00 Resp 20 02/20/20 10:00 BP 115/55 02/20/20 09:30 Pulse Ox 100 02/20/20 10:00 Intake & Output 02/19/20 02/20/20 02/20/20 18:59 06:59 18:59 Intake Total 6656.243 8679.926 590.489 Output Total 1105 1175 195 Balance 733.895 8096.926 395.489 Intake: IV 200 2000 500 Piperacillin-Tazobactam 3 100 100 .375 gm In Sodium Chloride 0.9% 100 ml @ 25 mls/hr IVPB Q8HR [facility] Rx# :[id number] Sodium Chloride 0.45% 1, 200 900 400 000 ml @ 100 mls/hr IV . Q10H [facility] Rx#:[id number] Sodium Chloride 0.9% 1, 1000 000 ml @ 999 mls/hr IV . Q1H1M [facility] Rx#:[id number] Intake, IV Titration 1355.398 681.926 90.489 Amount Amiodarone 300 mg In 250 Dextrose 5% in Water 250 ml @ 0.5 MG/MIN 25 mls/hr IV .Q10H [facility] Rx#: [id number] Clevidipine Butyrate 25 10.733 mg In Empty Bag 1 bag @ 1 MG/HR 2 mls/hr IV .Q24H [facility] Rx#:[id number] Morphine Sulfate (100 mg/ 109.208 31.926 2 ml) 100 mg In Sodium Chloride 0.9% 100 ml @ 2 MG/HR 2.04 mls/hr IV . Q24H [facility] Rx#:[id number] Piperacillin-Tazobactam 3 100 .375 gm In Sodium Chloride 0.9% 100 ml @ 25 mls/hr IVPB Q8HR [facility] Rx# :[id number] Sodium Chloride 0.45% 1, 80 000 ml @ 40 mls/hr IV . Q24H [facility] Rx#:[id number] Sodium Chloride 0.9% 1, 800 100 000 ml @ 100 mls/hr IV . Q10H [facility] Rx#:[id number] propofoL 1,000 mg In 255.457 300.000 90.489 Empty Bag 1 bag @ Titrate IV .Q0M [facility] Rx#: [id number] Lipid 100 Sodium Chloride 0.45% 1, 100 000 ml @ 100 mls/hr IV . Q10H [facility] Rx#:[id number] Output: Chest Tube Drainage 5 240 Chest Tube Left Upper 5 240 Lateral Chest Urine 1100 935 195 Other: Voiding Method Indwelling Catheter Indwelling Catheter ABP, PAP, CO, CI - Last Documented Arterial Blood Pressure 140/44 - Labs CBC & Chem 7: 02/20/20 04:45 02/20/20 04:35 Labs: Abnormal Lab Results - Last 24 Hours (Table) 02/17/20 02/19/20 02/19/20 Range/Units 18:03 11:43 17:16 WBC (3.8-10.6) k/uL RBC (4.30-5.90) m/uL Hgb (13.0-17.5) gm/dL Hct (39.0-53.0) % Plt Count (150-450) k/uL ABG pH (7.35-7.45) ABG pCO2 (35-45) mmHg ABG HCO3 (21-25) mmol/L ABG O2 Saturation (94-97) % Sodium (137-145) mmol/L Chloride (98-107) mmol/L Carbon Dioxide (22-30) mmol/L Glucose (74-99) mg/dL POC Glucose (mg/dL) 180 H 152 H 101 H (75-99) mg/dL Calcium (8.4-10.2) mg/dL AST (17-59) U/L ALT (4-49) U/L Total Protein (6.3-8.2) g/dL Albumin (3.5-5.0) g/dL 02/20/20 02/20/20 02/20/20 Range/Units 00:05 00:07 04:35 WBC (3.8-10.6) k/uL RBC (4.30-5.90) m/uL Hgb (13.0-17.5) gm/dL Hct (39.0-53.0) % Plt Count (150-450) k/uL ABG pH (7.35-7.45) ABG pCO2 (35-45) mmHg ABG HCO3 (21-25) mmol/L ABG O2 Saturation (94-97) % Sodium 132 L (137-145) mmol/L Chloride 111 H (98-107) mmol/L Carbon Dioxide 20 L (22-30) mmol/L Glucose 111 H (74-99) mg/dL POC Glucose (mg/dL) 64 L 122 H (75-99) mg/dL Calcium 7.1 L (8.4-10.2) mg/dL AST 318 H (17-59) U/L ALT 119 H (4-49) U/L Total Protein 4.2 L (6.3-8.2) g/dL Albumin 2.1 L (3.5-5.0) g/dL 02/20/20 02/20/20 02/20/20 Range/Units 04:45 05:10 05:44 WBC 13.5 H (3.8-10.6) k/uL RBC 3.18 L (4.30-5.90) m/uL Hgb 9.7 L D (13.0-17.5) gm/dL Hct 27.4 L (39.0-53.0) % Plt Count 122 L (150-450) k/uL ABG pH 7.48 H (7.35-7.45) ABG pCO2 27 L (35-45) mmHg ABG HCO3 20 L (21-25) mmol/L ABG O2 Saturation 98.1 H (94-97) % Sodium (137-145) mmol/L Chloride (98-107) mmol/L Carbon Dioxide (22-30) mmol/L Glucose (74-99) mg/dL POC Glucose (mg/dL) 47 L (75-99) mg/dL Calcium (8.4-10.2) mg/dL AST (17-59) U/L ALT (4-49) U/L Total Protein (6.3-8.2) g/dL Albumin (3.5-5.0) g/dL 02/20/20 Range/Units 05:50 WBC (3.8-10.6) k/uL RBC (4.30-5.90) m/uL Hgb (13.0-17.5) gm/dL Hct (39.0-53.0) % Plt Count (150-450) k/uL ABG pH (7.35-7.45) ABG pCO2 (35-45) mmHg ABG HCO3 (21-25) mmol/L ABG O2 Saturation (94-97) % Sodium (137-145) mmol/L Chloride (98-107) mmol/L Carbon Dioxide (22-30) mmol/L Glucose (74-99) mg/dL POC Glucose (mg/dL) 124 H (75-99) mg/dL Calcium (8.4-10.2) mg/dL AST (17-59) U/L ALT (4-49) U/L Total Protein (6.3-8.2) g/dL Albumin (3.5-5.0) g/dL Microbiology - Last 24 Hours (Table) 02/17/20 23:50 Gram Stain - Final Sputum Sputum Culture - Final
--- NOTE | 2020-02-20 10:49 | XR ---
EXAMINATION TYPE: XR elbow limited LT DATE OF EXAM: 02/20/2020 CLINICAL HISTORY: Fall, left elbow wound and swelling TECHNIQUE: Frontal, lateral and oblique images of the left elbow are obtained. COMPARISON: Left humerus radiograph 02/17/2020 FINDINGS: There is no acute fracture/dislocation evident in the left elbow. The anterior humeral li ne and radiocapitellar lines are maintained. No abnormal fat pad signs are seen. There is a 5 mm ossi fic density at the volar olecranon fossa of the ulna which appears well-corticated and chronic, possi lenin degenerative spurring or loose body, not likely to represent fracture. There is enthesophyte deve lopment along the medial and lateral epicondyles. The overlying soft tissue appears unremarkable. IMPRESSION: 1. No acute fracture or dislocation in the left elbow. 2. Degenerative changes including bilateral epicondylar enthesophytes, and well-corticated likely loo se body at the volar olecranon fossa.
--- NOTE | 2020-02-20 11:00 | ECHOF ---
Referral Reason:AFIB MEASUREMENTS -------- HEIGHT: 167.6 cm WEIGHT: 86.6 kg BP: 108/52 RVIDd: 2.9 cm (< 3.3) IVSd: 0.8 cm (0.6 - 1.1) LVIDd: 4.4 cm (3.9 - 5.3) LVPWd: 1.0 cm (0.6 - 1.1) IVSs: 1.4 cm LVIDs: 2.1 cm LVPWs: 1.4 cm LAESV Index (A-L): 17.63 ml/m Ao Diam: 3.0 cm (2.0 - 3.7) AV Cusp: 1.7 cm (1.5 - 2.6) LA Diam: 3.7 cm (2.7 - 3.8) MV EXCURSION: 23.254 mm (> 18.000) MV EF SLOPE: 161 mm/s (70 - 150) EPSS: 1.6 cm MV E Jere: 0.95 m/s MV DecT: 218 ms MV A Jere: 0.72 m/s MV E/A Ratio: 1.31 RAP: 5.00 mmHg RVSP: 29.93 mmHg TAPSE: 17.70 mm FINDINGS -------- Sinus rhythm. This was a technically good study. The left ventricular size is normal. Left ventricular wall thickness is normal. Overall left vent ricular systolic function is normal with, an EF between 55 - 60 %. The diastolic filling pattern is normal for the age of the patient 10.79. The right ventricle is normal in size. Normal LA size by volume 22+/-6 ml/m2. The right atrial size is normal. The aortic valve is trileaflet, and appears structurally normal. No aortic stenosis or regurgitation. The mitral valve leaflets are mildly thickened. [id number] mitral regurgitation is present. The tricuspid valve appears structurally normal. Mild tricuspid regurgitation present. Right vent ricular systolic pressure is normal at < 35 mmHg. Trace/mild (physiologic) pulmonic regurgitation. The aortic root size is normal. IVC Not well visulized. There is no pericardial effusion. CONCLUSIONS -------- 1. Left ventricular wall thickness is normal. 2. Overall left ventricular systolic function is normal with, an EF between 55 - 60 %. 3. The diastolic filling pattern is normal for the age of the patient 10.79 4. Normal LA size by volume 22+/-6 ml/m2. 5. The aortic valve is trileaflet, and appears structurally normal. No aortic stenosis or regurgitati on. 6. The mitral valve leaflets are mildly thickened. 7. [id number]-[id number] mitral regurgitation is present. 8. Mild tricuspid regurgitation present. 9. Trace/mild (physiologic) pulmonic regurgitation. HAZARDOUS MATERIALS HANDLER: Emily Shultz RDCS
--- NOTE | 2020-02-20 11:38 | P.PN ---
Subjective Progress Note Date: 02/20/20 This is a 69-year-old male patient who was working on his gutters when he fell off a 15 foot ladder. This was unwitnessed. He end up calling his who in turn called EMS and the patient was brought in to the emergency department. Upon arrival, the patient was hypotensive and he was in shock. The patient initial chest x-ray showed several left-sided fractures and small amount of subcutaneous air in addition to a left-sided pneumothorax. The x-ray of the pelvis showed no evidence of any fracture or dislocation. The CAT scan of the brain showed age-related atrophy and chronic small vessel ischemic changes without any acute intracranial process. CAT scan of cervical spine showed no acute abnormalities. On and has Been of the cervical spine was done and the bone and soft tissue windows showed no acute abnormalities. There was no evidence of any fracture. Along with multiple left-sided rib fractures third extending to the seventh rib. There was also spending the sedation with estima daxa grade 3 injury the patient. The patient's hemoglobin dropped to 10.5. The patient received a total of 2 L of IV fluid and 40 minutes of packed RBC. Morning hemoglobin today is At 13.4. The patient was taken to the operating room yesterday. The patient underwent a left-sided chest tube insertion. The patient also had splenectomy done and following that the patient was kept intubated on a mechanical ventilator and he was transferred to the intensive care unit. Note that the patient takes morphine outpatient basis and he has chronic pain and chronic narcotic requirements and on outpatient basis he takes morphine sulfate in the form of MS Contin 50 mg every 12 hours. Overnight, the patient was intubated on mechanical ventilator. He was sedated with a combination of propofol and he was also placed on morphine drip after being given several boluses control his pain. This morning, Profore is running at 70 mg per KG per minute. Morphine is running at 8 mg an hour. The patient is on normal saline at rate of 85 mL an hour. The patient has a left sided chest tube. Total amount of output is in order 110 mL of serosanguineous material without evidence of any air leak. The ventilator setting shows an assist- control mode rate of 20 with a tidal volume of 500 and FiO2 of 40% with a PEEP of 5. The patient's FiO2 is down to 40% overnight. The morning blood gases showed a pH of 7.4 with a pCO2 of 37 and pO2 of 121. The chest x-ray from this morning shows that the patient has an indwelling left-sided chest tube without any signs or pneumothorax. There is also a basilar pleural-based opacity along with multiple left-sided rib fractures and ET tube is in a good location. He is at approximately slightly swollen probably related to an infiltrated IV. He did not require any pressors. He remains hemodynamically stable. Lactic acid remains slightly elevated at 2.9 On 02/19/2020, the patient's seen for a follow-up. Earlier this morning, the patient was doing well and patient was well sedated on propofol at 70 g per KG per minute and morphine at 8 mg an hour. He was on a mechanical ventilator on assist control mode at the rate of 20 with a tidal volume of 500 and FiO2 of 40% with a PEEP of 5. His chest x-ray showed no acute abnormalities. There was no evidence of any pneumothorax. The patient left-sided chest tube in place. No evidence of any air leak. The chest x-ray showed multiple left-sided rib fractures, stable right medial basilar atelectasis, stable left basilar infiltrate/atelectasis. No other acute abdominal masses otherwise noted. As for the blood gases, the patient a pH of 7.49 with a pCO2 of 31 and pO2 of 84. The patient was hemodynamically stable on no pressors. Hemoglobin was stable at 11.6. Lactic acid level is improved. Based on this, the patient was given a sedation holiday. Initially he recovered nicely from this sedation. He was kept on morphine for pain control at a lower dose of 12 mg an hour. He was taken off the propofol. He was given as pertains breathing trial and he seemed to be quite comfortable and he was getting progressively more restless. At that point, I made decision to extubate the patient, and he was placed on oxygen by nasal cannula. The first 20-30 minutes, the patient did well post extubation. Subsequently, he became progressively more restless, agitated, he was having tremors and he was thrashing around. He was not following any commands. He became progressively more tachycardic. He went into atrial fibrillation with rapid ventricular response with a heart rate in the 180s. He became HYPERTENSIVE with systolic blood pressure went up to 200s. Based on all this, the patient was started on side effects drip for blood pressure control. I thought that the patient was withdrawing from alcohol. It's clear to me that the patient has a component of alcoholism and it was noted that the patient was intoxicated alcohol at time of admission. As such, he could have been in delirium tremens. He was given a total of 4 mg of Ativan without any major improvement. At that point, I decided to reintubate the patient. He was placed again on propofol and morphine drip was continued and he was intubated in the intensive care unit without any major difficulties. A triple lumen cath was also inserted. As for atrial fibrillation, the patient was started on amiodarone drip per protocol. Chest x-ray post intubation showed no acute abnormalities. She wasn't in that location. Triple lumen catheter was also in good location. NG tube was also be inserted. 02/20/2020, the patient is sedated on a mechanical ventilator. He failed extubation yesterday because of activity delirium tremens. He was restarted back on propofol running at 50, respiratory KG per minute and morphine at 6 mg an hour. He is also on normal saline at 0.9 percent at 100 mL an hour. He was running a lower blood pressure yesterday. He was given a bolus of IV fluids and a second bolus was given to him today. Both boluses are 1 L. The patient has converted back into normal sinus rhythm. Note that he was loaded with amiodarone yesterday and he was kept on amiodarone throughout the day and currently amiodarone is running at 0.5 mg per minute. A. fib RVR has recovered and the patient is back into normal sinus rhythm. He remains on a mechanical ventilator. He is an assist-control mode at the rate of 20 with a tidal volume of 500 and FiO2 40% with a PEEP of 5. A blood gas showed a pH of 7.48 with a pCO2 of 27 and pO2 of 97. The patient is afebrile. The patient has a clear abdominal wounds. The chest tube on the left is still in place without evidence of any air leak and output from the chest tube has been serosanguineous in order of 240 mL over the past 24 hours. Urine output is adequate. No other significant events overnight. Objective - Vital Signs Vital signs: Vital Signs Temp 97.1 F L 02/20/20 08:00 Pulse 70 08/28/20 10:00 Resp 20 02/20/20 10:00 BP 115/55 02/20/20 09:30 Pulse Ox 100 02/20/20 10:00 Intake & Output 02/19/20 02/20/20 02/20/20 18:59 06:59 18:59 Intake Total 8943.812 1342.926 590.489 Output Total 1105 1175 195 Balance 010.628 2324.926 395.489 Weight 89.8 kg Intake: IV 200 2000 500 Piperacillin-Tazobactam 3 100 100 .375 gm In Sodium Chloride 0.9% 100 ml @ 25 mls/hr IVPB Q8HR [facility] Rx# :[id number] Sodium Chloride 0.45% 1, 200 900 400 000 ml @ 100 mls/hr IV . Q10H [facility] Rx#:[id number] Sodium Chloride 0.9% 1, 1000 000 ml @ 999 mls/hr IV . Q1H1M ONE Rx#:[id number] Intake, IV Titration 1355.398 681.926 90.489 Amount Amiodarone 300 mg In 250 Dextrose 5% in Water 250 ml @ 0.5 MG/MIN 25 mls/hr IV .Q10H [facility] Rx#: [id number] Clevidipine Butyrate 25 10.733 mg In Empty Bag 1 bag @ 1 MG/HR 2 mls/hr IV .Q24H [facility] Rx#:[id number] Morphine Sulfate (100 mg/ 109.208 31.926 2 ml) 100 mg In Sodium Chloride 0.9% 100 ml @ 2 MG/HR 2.04 mls/hr IV . Q24H [facility] Rx#:[id number] Piperacillin-Tazobactam 3 100 .375 gm In Sodium Chloride 0.9% 100 ml @ 25 mls/hr IVPB Q8HR [facility] Rx# :[id number] Sodium Chloride 0.45% 1, 80 000 ml @ 40 mls/hr IV . Q24H ONE Rx#:[id number] Sodium Chloride 0.9% 1, 800 100 000 ml @ 100 mls/hr IV . Q10H [facility] Rx#:[id number] propofoL 1,000 mg In 255.457 300.000 90.489 Empty Bag 1 bag @ Titrate IV .Q0M [facility] Rx#: [id number] Lipid 100 Sodium Chloride 0.45% 1, 100 000 ml @ 100 mls/hr IV . Q10H [facility] Rx#:[id number] Output: Chest Tube Drainage 5 240 Chest Tube Left Upper 5 240 Lateral Chest Urine 1100 935 195 Other: Voiding Method Indwelling Catheter Indwelling Catheter ABP, PAP, CO, CI - Last Documented Arterial Blood Pressure 140/44 - Exam Gen. appearance the patient is sedated, comfortable not in acute respiratory distress. Orotracheal and orogastric tube are both in place. Head exam was generally normal. There was no scleral icterus or corneal arcus. Mucous membranes were moist. Neck was supple and without jugular venous distension, thyromegaly, or carotid bruits. Carotids were easily palpable bilaterally. There was no adenopathy. The patient has a left IJ triple-lumen catheter and exit site is dry clean and intact. Lungs sounds are diminished bilaterally and the patient is a left sided chest tube in place. Chest tube is in a good location. Breath sounds are slightly diminished in left lung base compared to the right. No evidence of any air leak and the chest tube Pleur-evac. Cardiac exam revealed the PMI to be normally situated and sized. The rhythm was regular and no extrasystoles were noted during several minutes of auscultation. The first and second heart sounds were normal and physiologic splitting of the second heart sound was noted. There were no murmurs, rubs, clicks, or gallops. Abdomen is soft and nontender. The patient has a mid abdominal scar which is dry clean and intact. A surgical scar/wound is dry clean and intact. No direct distention. No rebound distention. No guarding. Bowel sounds are hypoactive at this point in time. Examination of the extremities revealed easily palpable radial, femoral and pedal pulses. There was no cyanosis, clubbing or edema. Examination of the skin revealed no evidence of significant rashes, suspicious appearing nevi or other concerning lesions. Neurologic the patient is arousable. Currently he is well sedated. Pupils are equal and reactive to light. No signs of any head trauma. No nystagmus. No clonus. No Babinski. - Labs CBC & Chem 7: 02/20/20 04:45 02/20/20 04:35 Labs: Abnormal Lab Results - Last 24 Hours (Table) 02/17/20 02/19/20 02/19/20 Range/Units 18:03 11:43 17:16 WBC (3.8-10.6) k/uL RBC (4.30-5.90) m/uL Hgb (13.0-17.5) gm/dL Hct (39.0-53.0) % Plt Count (150-450) k/uL ABG pH (7.35-7.45) ABG pCO2 (35-45) mmHg ABG HCO3 (21-25) mmol/L ABG O2 Saturation (94-97) % Sodium (137-145) mmol/L Chloride (98-107) mmol/L Carbon Dioxide (22-30) mmol/L Glucose (74-99) mg/dL POC Glucose (mg/dL) 180 H 152 H 101 H (75-99) mg/dL Calcium (8.4-10.2) mg/dL AST (17-59) U/L ALT (4-49) U/L Total Protein (6.3-8.2) g/dL Albumin (3.5-5.0) g/dL 02/20/20 02/20/20 02/20/20 Range/Units 00:05 00:07 04:35 WBC (3.8-10.6) k/uL RBC (4.30-5.90) m/uL Hgb (13.0-17.5) gm/dL Hct (39.0-53.0) % Plt Count (150-450) k/uL ABG pH (7.35-7.45) ABG pCO2 (35-45) mmHg ABG HCO3 (21-25) mmol/L ABG O2 Saturation (94-97) % Sodium 132 L (137-145) mmol/L Chloride 111 H (98-107) mmol/L Carbon Dioxide 20 L (22-30) mmol/L Glucose 111 H (74-99) mg/dL POC Glucose (mg/dL) 64 L 122 H (75-99) mg/dL Calcium 7.1 L (8.4-10.2) mg/dL AST 318 H (17-59) U/L ALT 119 H (4-49) U/L Total Protein 4.2 L (6.3-8.2) g/dL Albumin 2.1 L (3.5-5.0) g/dL 02/20/20 02/20/20 02/20/20 Range/Units 04:45 05:10 05:44 WBC 13.5 H (3.8-10.6) k/uL RBC 3.18 L (4.30-5.90) m/uL Hgb 9.7 L D (13.0-17.5) gm/dL Hct 27.4 L (39.0-53.0) % Plt Count 122 L (150-450) k/uL ABG pH 7.48 H (7.35-7.45) ABG pCO2 27 L (35-45) mmHg ABG HCO3 20 L (21-25) mmol/L ABG O2 Saturation 98.1 H (94-97) % Sodium (137-145) mmol/L Chloride (98-107) mmol/L Carbon Dioxide (22-30) mmol/L Glucose (74-99) mg/dL POC Glucose (mg/dL) 47 L (75-99) mg/dL Calcium (8.4-10.2) mg/dL AST (17-59) U/L ALT (4-49) U/L Total Protein (6.3-8.2) g/dL Albumin (3.5-5.0) g/dL 02/20/20 Range/Units 05:50 WBC (3.8-10.6) k/uL RBC (4.30-5.90) m/uL Hgb (13.0-17.5) gm/dL Hct (39.0-53.0) % Plt Count (150-450) k/uL ABG pH (7.35-7.45) ABG pCO2 (35-45) mmHg ABG HCO3 (21-25) mmol/L ABG O2 Saturation (94-97) % Sodium (137-145) mmol/L Chloride (98-107) mmol/L Carbon Dioxide (22-30) mmol/L Glucose (74-99) mg/dL POC Glucose (mg/dL) 124 H (75-99) mg/dL Calcium (8.4-10.2) mg/dL AST (17-59) U/L ALT (4-49) U/L Total Protein (6.3-8.2) g/dL Albumin (3.5-5.0) g/dL Microbiology - Last 24 Hours (Table) 02/17/20 23:50 Gram Stain - Final Sputum Sputum Culture - Final Assessment and Plan Plan: 1 fall off a ladder with significant trauma to the chest and abdomen. 2 traumatic grade 3 laceration of the spleen along with hemoperitoneum and the patient is post splenectomy and the patient is postop day #3 3 traumatic left-sided rib fractures third drip through seventh rib along with a 30% left-sided pneumothorax post chest tube insertion with adequate expansion of the left lung. The left-sided chest tube is still in place. Output is noted that up to 240 mL and there is no evidence of any air leak. 4 shock at the time of admission, essentially due to hemorrhagic shock, improved with fluid resuscitation the patient was given a total of 4 units of packed RBC and 2 L of IV fluid and currently is hemodynamically stable and he is off pressors. Hemoglobin is stable and the patient is currently on no pressors. He did have some lower blood pressures earlier and the patient was given a total of 2 L of IV fluid boluses over the past 24 hours. Currently he is still a normal sed rate of 100 he is an hour and the patient has no pressors running. 5 blood loss anemia, acute, secondary to pneumoperitoneum, transfused with a total of 4 units of packed RBC, hemoglobin remains stable. 6 acute ventilator-dependent respiratory failure, hypoxic, secondary to above. 7 chronic neck pain and the patient had been taken MS Contin on outpatient basis 15 mg twice a day 8 coronary artery disease with a previous bypass surgery 9 hyperlipidemia 10 BPH 11 delirium tremens as the patient is suspected alcoholism with symptoms of delirium tremens currently intubated on propofol and morphine sulfate infusions. 12 A. fib RVR, converted to sinus rhythm and the patient is on amiodarone 13 leukocytosis, likely reactive, improving and the patient on empirically covered with IV Zosyn. Plan Continue ventilator support without any changes Keep the patient on sedation with accommodation a propofol and morphine sulfate for pain control, I'm going to gradually wean off the morphine sulfate and the propofol. It's reasonable to do also a sedation holiday for this patient to assess his underlying mental status as the patient is being treated for delirium tremens. Monitor the output from the chest tube and monitor the air leak. The chest x- ray still not doing any pneumothorax and the chest tube is in a good location Monitor hemoglobin Empiric antibiotic coverage with IV Zosyn We'll initiate tube feeds. Complete the loading of amiodarone and then discontinue Obtain echocardiogram We'll continue to follow. The patient is critically ill, and the patient will monitored very closely in the ICU. This is a critically care evaluation that was on a more than 30 minutes.
[2020-02-20 11:50] LABS: Glucose,Whole Blood 81 mg/dL (75-99)
[2020-02-20] MEDS ORDERED: ACETAMINOPHEN IV (For NPO) 1,000 MG in EMPTY BAG 1 BAG IVPB STA (15:47)
--- NOTE | 2020-02-20 16:08 | P.CNOR ---
History of Present Illness - [facility] Consult date: 02/20/20 Consult reason: joint pain History of present illness: Patient is a 69 yo male seen at bedside this am in the ICU. He is intubated and does not respond to verbal ques or commands. Per reports he fell from a ladder approximately 15 feet and landed on left side. He suffered a ruptured spleen and multiple rib fractures. He is post op from splenectomy performed on 02/17/20. There is concern for injury to left humerus/elbow where he has a wound. Review of Systems ROS unobtainable: due to endotracheal tube Past Medical History Past Medical History: Coronary Artery Disease (CAD), Hyperlipidemia, Prostate Disorder Additional Past Medical History / Comment(s): Chronic back and neck pain, cervical fusion 2009 History of Any Multi-Drug Resistant Organisms: None Reported Past Surgical History: Coronary Bypass/CABG Additional Past Surgical History / Comment(s): CABG and tripple bypass, hernia inguinal , cervical spine fusion Past Anesthesia/Blood Transfusion Reactions: No Reported Reaction Past Psychological History: Anxiety Smoking Status: Former smoker Past Alcohol Use History: None Reported Past Drug Use History: None Reported, Marijuana Medications and Allergies Home Medications Medication Instructions Recorded Confirmed Type Finasteride [Proscar] 5 mg PO HS 02/17/20 02/17/20 History Morphine Sulfate ER [Ms Contin] 15 mg PO Q12HR 02/17/20 02/17/20 History Rosuvastatin Calcium [Crestor] 10 mg PO HS 02/17/20 02/17/20 History Tadalafil [Cialis] 20 mg PO Q36H PRN 02/17/20 02/17/20 History Tamsulosin HCl [Flomax] 0.8 mg PO HS 02/17/20 02/17/20 History atenoloL [Atenolol] 25 mg PO HS 02/17/20 02/17/20 History traZODone HCL [Desyrel] 50 mg PO HS PRN 02/17/20 02/17/20 History Allergies Allergy/AdvReac Type Severity Reaction Status Date / Time fentanyl Allergy Unknown Verified 02/17/20 18:35 nitroglycerin AdvReac Unknown Verified 02/17/20 18:35 [From Nitroglyn] Physical Examination Inspection of left arm shows no deformity. There is puncture wound at lateral aspect of distal upper arm. No erythema or bleeding. There is echymosses about the elbow and forearm with some swelling about the elbow. No response with passive flexion extension of the elbow. The elbow appears to be ligamentously stable. There is 2+ radial pulse and less than 2 sec cap refill distally. Further neuro status unobtainable. Results Left humerus xrays appears to be negative for definitive fracture. There is a suspicious area at the distal humerus/condyle which further dedicated left elbow xrays show no definitive fractures or dislocation. There are degenerative changes. - Labs Labs: Abnormal Lab Results - Last 24 Hours (Table) 02/17/20 02/19/20 02/19/20 Range/Units 18:03 11:43 17:16 WBC (3.8-10.6) k/uL RBC (4.30-5.90) m/uL Hgb (13.0-17.5) gm/dL Hct (39.0-53.0) % Plt Count (150-450) k/uL ABG pH (7.35-7.45) ABG pCO2 (35-45) mmHg ABG HCO3 (21-25) mmol/L ABG O2 Saturation (94-97) % Sodium (137-145) mmol/L Chloride (98-107) mmol/L Carbon Dioxide (22-30) mmol/L Glucose (74-99) mg/dL POC Glucose (mg/dL) 180 H 152 H 101 H (75-99) mg/dL Calcium (8.4-10.2) mg/dL AST (17-59) U/L ALT (4-49) U/L Total Protein (6.3-8.2) g/dL Albumin (3.5-5.0) g/dL 02/20/20 02/20/20 02/20/20 Range/Units 00:05 00:07 04:35 WBC (3.8-10.6) k/uL RBC (4.30-5.90) m/uL Hgb (13.0-17.5) gm/dL Hct (39.0-53.0) % Plt Count (150-450) k/uL ABG pH (7.35-7.45) ABG pCO2 (35-45) mmHg ABG HCO3 (21-25) mmol/L ABG O2 Saturation (94-97) % Sodium 132 L (137-145) mmol/L Chloride 111 H (98-107) mmol/L Carbon Dioxide 20 L (22-30) mmol/L Glucose 111 H (74-99) mg/dL POC Glucose (mg/dL) 64 L 122 H (75-99) mg/dL Calcium 7.1 L (8.4-10.2) mg/dL AST 318 H (17-59) U/L ALT 119 H (4-49) U/L Total Protein 4.2 L (6.3-8.2) g/dL Albumin 2.1 L (3.5-5.0) g/dL 02/20/20 02/20/20 02/20/20 Range/Units 04:45 05:10 05:44 WBC 13.5 H (3.8-10.6) k/uL RBC 3.18 L (4.30-5.90) m/uL Hgb 9.7 L D (13.0-17.5) gm/dL Hct 27.4 L (39.0-53.0) % Plt Count 122 L (150-450) k/uL ABG pH 7.48 H (7.35-7.45) ABG pCO2 27 L (35-45) mmHg ABG HCO3 20 L (21-25) mmol/L ABG O2 Saturation 98.1 H (94-97) % Sodium (137-145) mmol/L Chloride (98-107) mmol/L Carbon Dioxide (22-30) mmol/L Glucose (74-99) mg/dL POC Glucose (mg/dL) 47 L (75-99) mg/dL Calcium (8.4-10.2) mg/dL AST (17-59) U/L ALT (4-49) U/L Total Protein (6.3-8.2) g/dL Albumin (3.5-5.0) g/dL 02/20/20 Range/Units 05:50 WBC (3.8-10.6) k/uL RBC (4.30-5.90) m/uL Hgb (13.0-17.5) gm/dL Hct (39.0-53.0) % Plt Count (150-450) k/uL ABG pH (7.35-7.45) ABG pCO2 (35-45) mmHg ABG HCO3 (21-25) mmol/L ABG O2 Saturation (94-97) % Sodium (137-145) mmol/L Chloride (98-107) mmol/L Carbon Dioxide (22-30) mmol/L Glucose (74-99) mg/dL POC Glucose (mg/dL) 124 H (75-99) mg/dL Calcium (8.4-10.2) mg/dL AST (17-59) U/L ALT (4-49) U/L Total Protein (6.3-8.2) g/dL Albumin (3.5-5.0) g/dL Microbiology - Last 24 Hours (Table) 02/17/20 23:50 Gram Stain - Final Sputum Sputum Culture - Final H & H 02/17/20 02/17/20 02/18/20 Range/Units 17:56 22:45 04:15 Hgb 10.5 L 14.1 D 13.4 (13.0-17.5) gm/dL Hct 30.6 L 42.0 39.2 (39.0-53.0) % 02/19/20 02/20/20 Range/Units 04:00 04:45 Hgb 11.6 L 9.7 L D (13.0-17.5) gm/dL Hct 32.1 L 27.4 L (39.0-53.0) % Coagulation 02/17/20 Range/Units 17:56 INR 1.1 (<1.2) Result Diagrams: 02/20/20 04:45 02/20/20 04:35 - Diagnostic results Elbow x-ray: report reviewed, image reviewed Assessment and Plan (1) Fall Narrative/Plan: Xrays are negative for fracture. Wound does not require repair. No immediate surgical intervention planned. Recommend continued conservative care for contusion including ice, rest and pain management. He may follow up as an out patient. We will be happy revisit the patient should be necessary or requested. Thank you Current Visit: Yes Status: Acute Priority: Medium Code(s): W19.XXXA - UNSPECIFIED FALL, INITIAL ENCOUNTER SNOMED Code(s): 6164652 Time with Patient: Less than 30
--- NOTE | 2020-02-20 16:09 | PN ---
PROGRESS NOTE DATE OF SERVICE: 02/20/2020 REASON FOR FOLLOWUP: Leukocytosis post splenectomy. INTERVAL HISTORY: The patient did spike a low-grade fever of 100.6 last night. The patient is currently afebrile. The patient is hemodynamically stable. FiO2 is currently stable. No purulent secretion through the ET or any diarrhea has been reported. She has been started on tube feeds. PHYSICAL EXAMINATION: Blood pressure 123/51 with a pulse of 74. Temperature is 96.7. His T-max is 100.6. He is 97% on 40% FiO2. General description is an elderly male lying in bed in no distress. RESPIRATORY SYSTEM: Unlabored breathing with decreased breath sounds at the base. No wheeze. HEART: S1, S2. Regular rate and rhythm. ABDOMEN: Soft. No tenderness. EXTREMITIES: No edema of the feet. LABS: Hemoglobin 9.7, white count 13.5, BUN of 12, creatinine 0.67. Liver enzymes are mildly elevated. Sputum culture is so far negative. DIAGNOSTIC IMPRESSION AND PLAN: 1. Patient with a fall with trauma to the spleen, status post splenectomy with elevated white count, possibly reactive, and a question of possible pneumonitis. Patient is covered with Zosyn. White count is trending down. 2. Post splenectomy. He will need postsplenectomy vaccination day 14 of his surgery. Continue with supportive care. MMODL / IJN: [id number] / MTDD
[2020-02-20 17:57] LABS: Glucose,Whole Blood 123 mg/dL (75-99)
[2020-02-20] MEDS: TAMSULOSIN 0.4 MG CAP.ER.24H PO SCH ×2 (21:00→22:09)
[2020-02-20] MEDS: ATORVASTATIN 20 MG TAB PO SCH (22:09)
[2020-02-20] MEDS: FINASTERIDE 5 MG TAB PO SCH (22:10)
[2020-02-21] MEDS: INSULIN ASPART (NovoLOG) 100 UNIT/ML VIAL SQ SCH ×4 (01:00→18:40)
[2020-02-21 01:02] LABS: Glucose,Whole Blood 119 mg/dL (75-99)
[2020-02-21] MEDS: PIPERACILLIN-TAZOBACTAM 3.375 GM in SODIUM CHLORIDE 0.9% 100 ML IVPB SCH ×3 (01:07→16:52)
[2020-02-21] MEDS: MORPHINE SULFATE (100 MG/2 ML) 100 MG in SODIUM CHLORIDE 0.9% 100 ML IV SCH ×2 (02:54→22:05)
[2020-02-21] MEDS: SODIUM CHLORIDE 0.9% 1,000 ML IV SCH ×2 (02:58→16:53)
[2020-02-21 04:24] LABS: ABG Base Excess -2.3 mmol/L; ABG HCO3 22 mmol/L (21-25); ABG Oxygen Saturation 98.7 % (94-97); ABG PCO2 32 mmHg (35-45); ABG PH 7.45 (7.35-7.45); ABG PO2 129 mmHg (83-108); ABG TCO2 23 mmol/L (19-24)
[2020-02-21 04:39] LABS: Allen Test Performed? no
[2020-02-21 06:17] LABS: HCT 25.8 % (39.0-53.0); MCV 86.3 fL (80.0-100.0); Mean Platelet Volume 10.2; Poikilocytosis Slight; RBC 2.99 m/uL (4.30-5.90); RDW 14.8 % (11.5-15.5); WBC 13.4 k/uL (3.8-10.6)
[2020-02-21 06:24] LABS: ALT 104 U/L (4-49); AST 175 U/L (17-59); African American GFR (CKD) >90 (>60 ml/min/1.73 sqM); Alkaline Phosphatase 175 U/L (38-126); Anion Gap 3 mmol/L; Blood Urea Nitrogen 10 mg/dL (9-20); Calcium 7.3 mg/dL (8.4-10.2); Carbon Dioxide 20 mmol/L (22-30); Chloride 114 mmol/L (98-107); Glucose 122 mg/dL (74-99); Non-African American GFR(CKD) >90 (>60 ml/min/1.73 sqM); Potassium 3.5 mmol/L (3.5-5.1); Sodium 137 mmol/L (137-145); Total Bilirubin 0.7 mg/dL (0.2-1.3); Total Protein 3.9 g/dL (6.3-8.2)
[2020-02-21 06:25] LABS: Platelet Count 194 k/uL (150-450)
[2020-02-21 06:26] LABS: HGB 8.6 gm/dL (13.0-17.5); MCH 28.5 pg (25.0-35.0); MCHC 33.3 g/dL (31.0-37.0)
[2020-02-21 06:32] LABS: Glucose,Whole Blood 103 mg/dL (75-99)
[2020-02-21] MEDS: POTASSIUM BICARBONATE/CIT AC 20 MEQ TABLET.EFF NG-TUBE SCH ×2 (06:54→08:06)
--- NOTE | 2020-02-21 07:50 | XR ---
EXAMINATION TYPE: XR chest 1V portable DATE OF EXAM: 02/21/2020 Comparison: 02/20/2020 Clinical History: 69-year-old male mechanically ventilated Findings: Median sternotomy wires are present. ET and NG tubes remain in place. Left IJ CVC tip at the lower SV C. Heart remains mildly enlarged. Mild diffuse interstitial density remains. Patchy bibasilar opaciti es persist. Left-sided rib fractures. Left-sided chest tube. No appreciable pneumothorax. Impression: 1. Known multiple left-sided rib fractures. Left-sided chest tube in place. No appreciable pneumothor ax. 2. Patchy bibasilar areas of atelectasis or infiltrates persist.
[2020-02-21] MEDS: CHLORHEXIDINE GLUCONATE 15 ML CUP MUCOUS MEM SCH ×2 (08:06→22:56)
[2020-02-21] MEDS: ENOXAPARIN 40 MG/0.4 ML SYRINGE SQ SCH (08:06)
[2020-02-21] MEDS: DEXMEDETOMIDINE/0.9% NACL(PMX) 400 MCG in EMPTY BAG 1 BAG IV SCH ×3 (08:07→20:08)
--- NOTE | 2020-02-21 11:01 | P.PN ---
Subjective Progress Note Date: 02/21/20 This is a 69-year-old male patient who was working on his gutters when he fell off a 15 foot ladder. This was unwitnessed. He end up calling his who in turn called EMS and the patient was brought in to the emergency department. Upon arrival, the patient was hypotensive and he was in shock. The patient initial chest x-ray showed several left-sided fractures and small amount of subcutaneous air in addition to a left-sided pneumothorax. The x-ray of the pelvis showed no evidence of any fracture or dislocation. The CAT scan of the brain showed age-related atrophy and chronic small vessel ischemic changes without any acute intracranial process. CAT scan of cervical spine showed no acute abnormalities. On and has Been of the cervical spine was done and the bone and soft tissue windows showed no acute abnormalities. There was no evidence of any fracture. Along with multiple left-sided rib fractures third extending to the seventh rib. There was also spending the sedation with estima daxa grade 3 injury the patient. The patient's hemoglobin dropped to 10.5. The patient received a total of 2 L of IV fluid and 40 minutes of packed RBC. Morning hemoglobin today is At 13.4. The patient was taken to the operating room yesterday. The patient underwent a left-sided chest tube insertion. The patient also had splenectomy done and following that the patient was kept intubated on a mechanical ventilator and he was transferred to the intensive care unit. Note that the patient takes morphine outpatient basis and he has chronic pain and chronic narcotic requirements and on outpatient basis he takes morphine sulfate in the form of MS Contin 50 mg every 12 hours. Overnight, the patient was intubated on mechanical ventilator. He was sedated with a combination of propofol and he was also placed on morphine drip after being given several boluses control his pain. This morning, Profore is running at 70 mg per KG per minute. Morphine is running at 8 mg an hour. The patient is on normal saline at rate of 85 mL an hour. The patient has a left sided chest tube. Total amount of output is in order 110 mL of serosanguineous material without evidence of any air leak. The ventilator setting shows an assist- control mode rate of 20 with a tidal volume of 500 and FiO2 of 40% with a PEEP of 5. The patient's FiO2 is down to 40% overnight. The morning blood gases showed a pH of 7.4 with a pCO2 of 37 and pO2 of 121. The chest x-ray from this morning shows that the patient has an indwelling left-sided chest tube without any signs or pneumothorax. There is also a basilar pleural-based opacity along with multiple left-sided rib fractures and ET tube is in a good location. He is at approximately slightly swollen probably related to an infiltrated IV. He did not require any pressors. He remains hemodynamically stable. Lactic acid remains slightly elevated at 2.9 On 02/19/2020, the patient's seen for a follow-up. Earlier this morning, the patient was doing well and patient was well sedated on propofol at 70 g per KG per minute and morphine at 8 mg an hour. He was on a mechanical ventilator on assist control mode at the rate of 20 with a tidal volume of 500 and FiO2 of 40% with a PEEP of 5. His chest x-ray showed no acute abnormalities. There was no evidence of any pneumothorax. The patient left-sided chest tube in place. No evidence of any air leak. The chest x-ray showed multiple left-sided rib fractures, stable right medial basilar atelectasis, stable left basilar infiltrate/atelectasis. No other acute abdominal masses otherwise noted. As for the blood gases, the patient a pH of 7.49 with a pCO2 of 31 and pO2 of 84. The patient was hemodynamically stable on no pressors. Hemoglobin was stable at 11.6. Lactic acid level is improved. Based on this, the patient was given a sedation holiday. Initially he recovered nicely from this sedation. He was kept on morphine for pain control at a lower dose of 12 mg an hour. He was taken off the propofol. He was given as pertains breathing trial and he seemed to be quite comfortable and he was getting progressively more restless. At that point, I made decision to extubate the patient, and he was placed on oxygen by nasal cannula. The first 20-30 minutes, the patient did well post extubation. Subsequently, he became progressively more restless, agitated, he was having tremors and he was thrashing around. He was not following any commands. He became progressively more tachycardic. He went into atrial fibrillation with rapid ventricular response with a heart rate in the 180s. He became HYPERTENSIVE with systolic blood pressure went up to 200s. Based on all this, the patient was started on side effects drip for blood pressure control. I thought that the patient was withdrawing from alcohol. It's clear to me that the patient has a component of alcoholism and it was noted that the patient was intoxicated alcohol at time of admission. As such, he could have been in delirium tremens. He was given a total of 4 mg of Ativan without any major improvement. At that point, I decided to reintubate the patient. He was placed again on propofol and morphine drip was continued and he was intubated in the intensive care unit without any major difficulties. A triple lumen cath was also inserted. As for atrial fibrillation, the patient was started on amiodarone drip per protocol. Chest x-ray post intubation showed no acute abnormalities. She wasn't in that location. Triple lumen catheter was also in good location. NG tube was also be inserted. 02/20/2020, the patient is sedated on a mechanical ventilator. He failed extubation yesterday because of activity delirium tremens. He was restarted back on propofol running at 50, respiratory KG per minute and morphine at 6 mg an hour. He is also on normal saline at 0.9 percent at 100 mL an hour. He was running a lower blood pressure yesterday. He was given a bolus of IV fluids and a second bolus was given to him today. Both boluses are 1 L. The patient has converted back into normal sinus rhythm. Note that he was loaded with amiodarone yesterday and he was kept on amiodarone throughout the day and currently amiodarone is running at 0.5 mg per minute. A. fib RVR has recovered and the patient is back into normal sinus rhythm. He remains on a mechanical ventilator. He is an assist-control mode at the rate of 20 with a tidal volume of 500 and FiO2 40% with a PEEP of 5. A blood gas showed a pH of 7.48 with a pCO2 of 27 and pO2 of 97. The patient is afebrile. The patient has a clear abdominal wounds. The chest tube on the left is still in place without evidence of any air leak and output from the chest tube has been serosanguineous in order of 240 mL over the past 24 hours. Urine output is adequate. No other significant events overnight. On 02/21/2020 and seeing the patient for a follow-up in the intensive care unit. The patient is on a combination of propofol and morphine sulfate. Propofol is running at 55 g per KG pigmented emotional sulfate is 4 mg an hour. He is calm and comfortable. He is an assist-control mode at the rate of 20 with a tidal volume of 500 and a FiO2 of 40% with a PEEP of 5. His morning blood gases showed a pH of 7.45 with a pCO2 of 32 and pO2 129. Chest x-ray showing some limited atelectatic changes and infiltration of the lung bases. The patient's chest x-ray showed no evidence of any pneumothorax. The output from the left- sided chest tube is in the order of 10 25 mL over the past 24 hours and there is no evidence of any air leak. The patient is calm and comfortable. I'm going to give him a sedation holiday. I'm going to consider Precedex instead of propofol as an alternative sedative medication and assess the patient's underlying mental status. He is hemodynamically stable. He has required no pressors. He remains in sinus rhythm. Amiodarone is currently discontinued. Is tolerating his enteral feeding for nutritional support. Objective - Vital Signs Vital signs: Vital Signs Temp 99.1 F 02/21/20 08:00 Pulse 51 L 02/21/20 10:00 Resp 20 02/21/20 10:00 BP 130/62 02/21/20 10:00 Pulse Ox 98 02/21/20 10:00 Intake & Output 02/20/20 02/21/20 02/21/20 18:59 06:59 18:59 Intake Total 1286.756 7083.233 488.784 Output Total 580 1285 300 Balance 1348.489 837.233 188.784 Weight 89.8 kg 90.2 kg Intake: IV 1300 1400 400 Piperacillin-Tazobactam 3 900 200 100 .375 gm In Sodium Chloride 0.9% 100 ml @ 25 mls/hr IVPB Q8HR [facility] Rx# :[id number] Sodium Chloride 0.45% 1, 400 000 ml @ 100 mls/hr IV . Q10H [facility] Rx#:[id number] Sodium Chloride 0.9% 1, 1200 300 000 ml @ 100 mls/hr IV . Q10H [facility] Rx#:[id number] Intake, IV Titration 490.489 332.233 88.784 Amount ACETAMINOPHEN IV (For NPO 100 ) 1,000 mg In Empty Bag 1 bag @ 400 mls/hr IVPB ONCE [facility] Rx#:[id number] Dexmedetomidine/0.9% NaCl 26.196 (Pmx) 400 mcg In Empty Bag 1 bag @ Titrate IV . Q0M [facility] Rx#:[id number] Morphine Sulfate (100 mg/ 51.952 2 ml) 100 mg In Sodium Chloride 0.9% 100 ml @ 2 MG/HR 2.04 mls/hr IV . Q24H [facility] Rx#:[id number] Piperacillin-Tazobactam 3 100 .375 gm In Sodium Chloride 0.9% 100 ml @ 25 mls/hr IVPB Q8HR [facility] Rx# :[id number] propofoL 1,000 mg In 290.489 280.281 62.588 Empty Bag 1 bag @ Titrate IV .Q0M [facility] Rx#: [id number] Tube Feeding 108 390 Other 30 Output: Chest Tube Drainage 265 Chest Tube Left Upper 265 Lateral Chest Urine 580 1020 300 Other: Voiding Method Indwelling Catheter Indwelling Catheter ABP, PAP, CO, CI - Last Documented Arterial Blood Pressure 149/63 - Exam Gen. appearance the patient is sedated, comfortable not in acute respiratory distress. Orotracheal and orogastric tube are both in place. Head exam was generally normal. There was no scleral icterus or corneal arcus. Mucous membranes were moist. Neck was supple and without jugular venous distension, thyromegaly, or carotid bruits. Carotids were easily palpable bilaterally. There was no adenopathy. The patient has a left IJ triple-lumen catheter and exit site is dry clean and intact. Lungs sounds are diminished bilaterally and the patient is a left sided chest tube in place. Chest tube is in a good location. Breath sounds are slightly diminished in left lung base compared to the right. No evidence of any air leak and the chest tube Pleur-evac. Cardiac exam revealed the PMI to be normally situated and sized. The rhythm was regular and no extrasystoles were noted during several minutes of auscultation. The first and second heart sounds were normal and physiologic splitting of the second heart sound was noted. There were no murmurs, rubs, clicks, or gallops. Abdomen is soft and nontender. The patient has a mid abdominal scar which is dry clean and intact. A surgical scar/wound is dry clean and intact. No direct distention. No rebound distention. No guarding. Bowel sounds are hypoactive at this point in time. Examination of the extremities revealed easily palpable radial, femoral and pedal pulses. There was no cyanosis, clubbing or edema. Examination of the skin revealed no evidence of significant rashes, suspicious appearing nevi or other concerning lesions. Neurologic the patient is arousable. Currently he is well sedated. Pupils are equal and reactive to light. No signs of any head trauma. No nystagmus. No clonus. No Babinski. - Labs CBC & Chem 7: 02/21/20 04:20 02/21/20 04:20 Labs: Abnormal Lab Results - Last 24 Hours (Table) 02/20/20 02/21/20 02/21/20 Range/Units 17:55 01:00 04:20 WBC 13.4 H (3.8-10.6) k/uL RBC 2.99 L (4.30-5.90) m/uL Hgb 8.6 L (13.0-17.5) gm/dL Hct 25.8 L (39.0-53.0) % ABG pCO2 (35-45) mmHg ABG pO2 (83-108) mmHg ABG O2 Saturation (94-97) % Chloride (98-107) mmol/L Carbon Dioxide (22-30) mmol/L Creatinine (0.66-1.25) mg/dL Glucose (74-99) mg/dL POC Glucose (mg/dL) 123 H 119 H (75-99) mg/dL Calcium (8.4-10.2) mg/dL AST (17-59) U/L ALT (4-49) U/L Alkaline Phosphatase (38-126) U/L Total Protein (6.3-8.2) g/dL Albumin (3.5-5.0) g/dL 02/21/20 02/21/20 02/21/20 Range/Units 04:20 04:23 06:30 WBC (3.8-10.6) k/uL RBC (4.30-5.90) m/uL Hgb (13.0-17.5) gm/dL Hct (39.0-53.0) % ABG pCO2 32 L (35-45) mmHg ABG pO2 129 H (83-108) mmHg ABG O2 Saturation 98.7 H (94-97) % Chloride 114 H (98-107) mmol/L Carbon Dioxide 20 L (22-30) mmol/L Creatinine 0.52 L (0.66-1.25) mg/dL Glucose 122 H (74-99) mg/dL POC Glucose (mg/dL) 103 H (75-99) mg/dL Calcium 7.3 L (8.4-10.2) mg/dL AST 175 H (17-59) U/L ALT 104 H (4-49) U/L Alkaline Phosphatase 175 H (38-126) U/L Total Protein 3.9 L (6.3-8.2) g/dL Albumin 2.0 L (3.5-5.0) g/dL Microbiology - Last 24 Hours (Table) 02/17/20 23:50 Gram Stain - Final Sputum Sputum Culture - Final Assessment and Plan Plan: 1 fall off a ladder with significant trauma to the chest and abdomen. 2 traumatic grade 3 laceration of the spleen along with hemoperitoneum and the patient is post splenectomy and the patient is postop day #4. Abdominal wound is clear and the patient is started on enteral feeding for nutritional support. 3 traumatic left-sided rib fractures third drip through seventh rib along with a 30% left-sided pneumothorax post chest tube insertion with adequate expansion of the left lung. The left-sided chest tube is still in place. Output is noted that up to 325 mL and there is no evidence of any air leak. 4 shock at the time of admission, essentially due to hemorrhagic shock, recovered currently on no pressors 5 blood loss anemia, acute, secondary to pneumoperitoneum, transfused with a to krissy of 4 units of packed RBC, hemoglobin remains stable. 6 acute ventilator-dependent respiratory failure, hypoxic, secondary to above. 7 chronic neck pain and the patient had been taken MS Contin on outpatient basis 15 mg twice a day 8 coronary artery disease with a previous bypass surgery 9 hyperlipidemia 10 BPH 11 delirium tremens as the patient is suspected alcoholism with symptoms of delirium tremens currently intubated on propofol and morphine sulfate infusions. 12 A. fib RVR, converted to sinus rhythm and the patient is off amiodarone and echocardiogram shows a normal LV function 13 leukocytosis, likely reactive, improving and the patient on empirically covered with IV Zosyn., Improving Plan Continue ventilator support without any changes Sedation holiday Keep the morphine sulfate and gradually wean down the propofol. He was Precedex as an alternative sedative medication. Assess mental status. He has delirium tremens and it may last for few more days and this will be assessed clinically. Continue IV Zosyn Continue enteral feeding for nutritional support Echocardiogram results were noted Output from the chest tube is still high and the patient will be kept Wall Suction and the Chest She Will Be Kept in Place Cardiac rhythm is sinus and the patient is currently off amiodarone We'll continue to follow. The patient is critically ill, and the patient will monitored very closely in the ICU. This is a critically care evaluation that was on a more than 30 minutes. Time with Patient: Greater than 30
[2020-02-21 11:44] LABS: Glucose,Whole Blood 156 mg/dL (75-99)
[2020-02-21] MEDS: CLEVIDIPINE BUTYRATE 25 MG in EMPTY BAG 1 BAG IV SCH (12:40)
--- NOTE | 2020-02-21 12:56 | P.PN ---
Subjective Progress Note Date: 02/21/20 CHIEF COMPLAINT: Status post fall HISTORY OF PRESENT ILLNESS: The patient is a 69-year-old male admitted after falling off a ladder including status post splenectomy. He has history of chronic pain including alcoholism. He is currently an alcohol withdrawal on the ventilator in the ICU. He had attempted extubation however failed weaning. Currently patient has been placed on Percidex. He's off propofol. He is on a morphine drip. is at bedside. ROS: On full ventilatory support. No fevers or chills. He had an echo yesterday. PHYSICAL EXAM: VITAL SIGNS: Reviewed CONSTITUTIONAL: Well developed and in no acute distress. EYES: Conjuctivae without sclera icterus. HEAD, EARS, NOSE, THROAT: Moist buccal mucosa. Head is normocephalic. No nasal drainage. NECK: Supple. No thyroidomegaly. RESPIRATORY: Non-labored respirations and equal bilateral excursions. On full mechanical support. Left chest tube with serosanguineous drainage. CARDIOVASCULAR: Palpable 2+ radial pulses. ABDOMEN: Soft. No peritonitis. At bedside, dressing changed and incision cleaned. MUSCULOSKELETAL: No clubbing. No cyanosis. SKIN: Good skin turgor. Well perfused. NEUROLOGIC: On sedation. PSYCH: On sedation. CLINICAL LABS: White blood cell stable 13.4-13.5. Hemoglobin down from 9.7-8.6. ASSESSMENT: 1. s/p fall 2. Alcohol withdrawal 3. Chronic pain meds 4. s/p splenectomy 5. Vent dependent respiratory failure PLAN: 1. Continue ICU care 2. Await resolution of alcohol withdrawal prior to decrease morphine drip 3. Overall, critical condition. Objective - Vital Signs Vital signs: Vital Signs Temp 99.0 F 02/21/20 12:00 Pulse 50 L 02/21/20 12:00 Resp 20 02/21/20 12:00 BP 128/61 02/21/20 12:00 Pulse Ox 98 02/21/20 12:00 Intake & Output 02/20/20 02/21/20 02/21/20 18:59 06:59 18:59 Intake Total 6994.849 0909.233 778.058 Output Total 580 1285 350 Balance 1348.489 837.233 428.058 Weight 89.8 kg 90.2 kg Intake: IV 1300 1400 500 Piperacillin-Tazobactam 3 900 200 100 .375 gm In Sodium Chloride 0.9% 100 ml @ 25 mls/hr IVPB Q8HR [facility] Rx# :[id number] Sodium Chloride 0.45% 1, 400 000 ml @ 100 mls/hr IV . Q10H [facility] Rx#:[id number] Sodium Chloride 0.9% 1, 1200 400 000 ml @ 100 mls/hr IV . Q10H [facility] Rx#:[id number] Intake, IV Titration 490.489 332.233 128.058 Amount ACETAMINOPHEN IV (For NPO 100 ) 1,000 mg In Empty Bag 1 bag @ 400 mls/hr IVPB ONCE [facility] Rx#:[id number] Dexmedetomidine/0.9% NaCl 44.048 (Pmx) 400 mcg In Empty Bag 1 bag @ Titrate IV . Q0M [facility] Rx#:[id number] Morphine Sulfate (100 mg/ 51.952 2 ml) 100 mg In Sodium Chloride 0.9% 100 ml @ 2 MG/HR 2.04 mls/hr IV . Q24H [facility] Rx#:[id number] Piperacillin-Tazobactam 3 100 .375 gm In Sodium Chloride 0.9% 100 ml @ 25 mls/hr IVPB Q8HR [facility] Rx# :[id number] propofoL 1,000 mg In 290.489 280.281 84.010 Empty Bag 1 bag @ Titrate IV .Q0M [facility] Rx#: [id number] Tube Feeding 108 390 120 Other 30 30 Output: Chest Tube Drainage 265 Chest Tube Left Upper 265 Lateral Chest Urine 580 1020 350 Other: Voiding Method Indwelling Catheter Indwelling Catheter Indwelling Catheter ABP, PAP, CO, CI - Last Documented Arterial Blood Pressure 166/68 - Labs CBC & Chem 7: 02/21/20 04:20 02/21/20 04:20 Labs: Abnormal Lab Results - Last 24 Hours (Table) 02/20/20 02/21/20 02/21/20 Range/Units 17:55 01:00 04:20 WBC 13.4 H (3.8-10.6) k/uL RBC 2.99 L (4.30-5.90) m/uL Hgb 8.6 L (13.0-17.5) gm/dL Hct 25.8 L (39.0-53.0) % ABG pCO2 (35-45) mmHg ABG pO2 (83-108) mmHg ABG O2 Saturation (94-97) % Chloride (98-107) mmol/L Carbon Dioxide (22-30) mmol/L Creatinine (0.66-1.25) mg/dL Glucose (74-99) mg/dL POC Glucose (mg/dL) 123 H 119 H (75-99) mg/dL Calcium (8.4-10.2) mg/dL AST (17-59) U/L ALT (4-49) U/L Alkaline Phosphatase (38-126) U/L Total Protein (6.3-8.2) g/dL Albumin (3.5-5.0) g/dL 02/21/20 02/21/20 02/21/20 Range/Units 04:20 04:23 06:30 WBC (3.8-10.6) k/uL RBC (4.30-5.90) m/uL Hgb (13.0-17.5) gm/dL Hct (39.0-53.0) % ABG pCO2 32 L (35-45) mmHg ABG pO2 129 H (83-108) mmHg ABG O2 Saturation 98.7 H (94-97) % Chloride 114 H (98-107) mmol/L Carbon Dioxide 20 L (22-30) mmol/L Creatinine 0.52 L (0.66-1.25) mg/dL Glucose 122 H (74-99) mg/dL POC Glucose (mg/dL) 103 H (75-99) mg/dL Calcium 7.3 L (8.4-10.2) mg/dL AST 175 H (17-59) U/L ALT 104 H (4-49) U/L Alkaline Phosphatase 175 H (38-126) U/L Total Protein 3.9 L (6.3-8.2) g/dL Albumin 2.0 L (3.5-5.0) g/dL 02/21/20 Range/Units 11:43 WBC (3.8-10.6) k/uL RBC (4.30-5.90) m/uL Hgb (13.0-17.5) gm/dL Hct (39.0-53.0) % ABG pCO2 (35-45) mmHg ABG pO2 (83-108) mmHg ABG O2 Saturation (94-97) % Chloride (98-107) mmol/L Carbon Dioxide (22-30) mmol/L Creatinine (0.66-1.25) mg/dL Glucose (74-99) mg/dL POC Glucose (mg/dL) 156 H (75-99) mg/dL Calcium (8.4-10.2) mg/dL AST (17-59) U/L ALT (4-49) U/L Alkaline Phosphatase (38-126) U/L Total Protein (6.3-8.2) g/dL Albumin (3.5-5.0) g/dL Microbiology - Last 24 Hours (Table) 02/17/20 23:50 Gram Stain - Final Sputum Sputum Culture - Final Assessment and Plan (1) Traumatic fracture of ribs of left side with pneumothorax Current Visit: Yes Status: Acute Code(s): S22.42XA - MULTIPLE FRACTURES OF RIBS, LEFT SIDE, INIT FOR CLOS FX; S27.0XXA - TRAUMATIC PNEUMOTHORAX, INITIAL ENCOUNTER SNOMED Code(s): 1423493 (2) Alcoholism Current Visit: Yes Status: Acute Code(s): F10.20 - ALCOHOL DEPENDENCE, UNCOMPLICATED SNOMED Code(s): 0073823 (3) Alcohol withdrawal Current Visit: Yes Status: Acute Code(s): F10.239 - ALCOHOL DEPENDENCE WITH WITHDRAWAL, UNSPECIFIED SNOMED Code(s): 147097700 (4) Chronic pain syndrome Current Visit: Yes Status: Acute Code(s): G89.4 - CHRONIC PAIN SYNDROME SNOMED Code(s): 819412144 (5) Hemorrhagic shock Current Visit: Yes Status: Acute Code(s): R57.8 - OTHER SHOCK SNOMED Code(s): 622103 (6) Post-splenectomy Current Visit: Yes Status: Acute Code(s): Z90.81 - ACQUIRED ABSENCE OF SPLEEN SNOMED Code(s): 409626944 (7) Ruptured spleen Current Visit: Yes Status: Acute Code(s): S36.09XA - OTHER INJURY OF SPLEEN, INITIAL ENCOUNTER SNOMED Code(s): 419775409
--- NOTE | 2020-02-21 16:23 | PN ---
PROGRESS NOTE DATE OF SERVICE: 02/21/2020 REASON FOR FOLLOWUP: 1. Leukocytosis. 2. Post splenectomy. INTERVAL HISTORY: Patient is currently afebrile. The patient is hemodynamically stable, not on any pressor support. FiO2 is currently 40%. No significant purulent secretion through the ET or any diarrhea reported by nursing staff. PHYSICAL EXAMINATION: Blood pressure 129/67, pulse of 56, temperature 99. He is 94% on 40% FiO2. General description is an elderly male lying in bed in no distress. Respiratory system: Unlabored breathing, decreased breath sounds in the base, with no wheeze. Heart S1, S2. Regular rate and rhythm. Abdomen soft, no tenderness. Extremities: No edema of the feet. LABS: Hemoglobin 8.1, white count 13.4. BUN of 10, creatinine 0.52. Liver enzymes trending down. DIAGNOSTIC IMPRESSION AND PLAN: 1. Patient with acute respiratory failure which is likely multifactorial, possible DTs. Clinically not behaving as pneumonia. Sputum has been negative. Elevated white count, possibly post splenectomy and is trending down. Chest x-ray, some atelectasis but no consolidation. He is covered with Zosyn. 2. Post splenectomy. He will get his vaccination on March 02, that will be day 14 of his splenectomy. MMODL / IJN: [id number] /
[2020-02-21 18:34] LABS: Glucose,Whole Blood 138 mg/dL (75-99)
[2020-02-21] MEDS: TAMSULOSIN 0.4 MG CAP.ER.24H PO SCH (19:56)
[2020-02-21] MEDS: FINASTERIDE 5 MG TAB PO SCH (22:57)
[2020-02-21] MEDS: ATORVASTATIN 20 MG TAB PO SCH (22:57)
[2020-02-22 00:29] LABS: Glucose,Whole Blood 123 mg/dL (75-99)
[2020-02-22] MEDS: SODIUM CHLORIDE 0.9% 1,000 ML IV SCH ×2 (00:49→11:08)
[2020-02-22] MEDS: PIPERACILLIN-TAZOBACTAM 3.375 GM in SODIUM CHLORIDE 0.9% 100 ML IVPB SCH ×3 (00:49→16:01)
[2020-02-22] MEDS: INSULIN ASPART (NovoLOG) 100 UNIT/ML VIAL SQ SCH ×4 (01:00→18:11)
[2020-02-22] MEDS: ACETAMINOPHEN TAB 325 MG TAB PO PRN ×2 (02:49→11:20)
[2020-02-22 04:50] LABS: ABG Base Excess -0.7 mmol/L; ABG HCO3 24 mmol/L (21-25); ABG Oxygen Saturation 97.7 % (94-97); ABG PCO2 38 mmHg (35-45); ABG PH 7.41 (7.35-7.45); ABG PO2 100 mmHg (83-108); ABG TCO2 25 mmol/L (19-24)
[2020-02-22 05:08] LABS: Allen Test Performed? no
[2020-02-22 05:37] LABS: HCT 24.4 % (39.0-53.0); HGB 9.3 gm/dL (13.0-17.5); MCH 32.5 pg (25.0-35.0); MCV 85.4 fL (80.0-100.0); Mean Platelet Volume 9.2; Platelet Count 250 k/uL (150-450); Poikilocytosis Slight; RBC 2.85 m/uL (4.30-5.90); RDW 14.8 % (11.5-15.5); WBC 17.3 k/uL (3.8-10.6)
[2020-02-22 05:39] LABS: MCHC 38.1 g/dL (31.0-37.0)
[2020-02-22 05:47] LABS: ALT 93 U/L (4-49); AST 137 U/L (17-59); African American GFR (CKD) >90 (>60 ml/min/1.73 sqM); Albumin 2.2 g/dL (3.5-5.0); Alkaline Phosphatase 235 U/L (38-126); Anion Gap 3 mmol/L; Blood Urea Nitrogen 11 mg/dL (9-20); Calcium 7.8 mg/dL (8.4-10.2); Carbon Dioxide 22 mmol/L (22-30); Chloride 114 mmol/L (98-107); Glucose 106 mg/dL (74-99); Non-African American GFR(CKD) >90 (>60 ml/min/1.73 sqM); Potassium 3.6 mmol/L (3.5-5.1); Sodium 139 mmol/L (137-145); Total Bilirubin 0.8 mg/dL (0.2-1.3); Total Protein 4.3 g/dL (6.3-8.2)
[2020-02-22 05:57] LABS: Glucose,Whole Blood 109 mg/dL (75-99)
[2020-02-22] MEDS: MORPHINE SULFATE (100 MG/2 ML) 100 MG in SODIUM CHLORIDE 0.9% 100 ML IV SCH (06:49)
[2020-02-22] MEDS ORDERED: POTASSIUM BICARBONATE/CIT AC 20 MEQ TABLET.EFF NG-TUBE SCH (07:00)
--- NOTE | 2020-02-22 07:19 | P.PN ---
Subjective 69-year-old male was cleaning gutters fell from skin feet ladder was brought into emergency department found to have several left-sided fractures left-sided pneumothorax with a left-sided chest tube presently patient is presently intubated patient has multiple left-sided fractures from third to seventh rib patient also had a splenectomy for splenic injury. Patient is presently sedated with propofol and also morphine drip patient is presently on ventilatory support blood gases showed normal pH pCO2 and pO2 are within normal limits as well pat ient is presently onZosyn patient had lactic acidosis secondary tolactated Ringer's. Patient is hyperchloremic because of which probably will start him on half-normal saline. 02/19/2020 Patient is expected today and shortly after that patient didn't tolerate that and patient ended up undergoing an atrial fibrillation patient was started on amiodarone patient was subsequently reintubated. Patient is bit hyponatremic because of extensive switching the IV fluids to normal saline instead of half- normal saline. Patient is also getting amiodarone. D5 water. Patient is not requiring any pressors at this time. Please refer to intensive is documentation for further details of ventilator settings. 02/20/2020 Patient developed ongoing trial patient is having sedation vacation patient heart rate is better controlled patient overall clinical condition is bit better today date of service for this note is 02/21/2020 Patient still in the ICU, he is intubated and sedated. Chest tube is in place and it hasn't output about 325 in 24 hours, propofol was switched to Paradox by critical care team. Pulmonary/critical care troponin measuring the event, sugar was low but most likely this is a false reading because patient is edematous. Surgical wound in the middle of the abdomen it looks clean and dry and closed. Patient is getting IV morphine. Creatinine and electrolytes are normal. Ec hocardiogram showing ejection fraction of 55-60% with moderate to severe mitral regurgitation His WBCs 17.3 K. Liver enzymes are trending down Objective - Vital Signs Vital signs: Vital Signs Temp 98.4 F 02/22/20 00:00 Pulse 79 02/22/20 00:30 Resp 18 02/22/20 00:30 BP 136/63 02/22/20 00:30 Pulse Ox 99 02/22/20 00:30 Intake & Output 02/21/20 02/21/20 02/22/20 06:59 18:59 06:59 Intake Total 2122.233 2491.396 8282.302 Output Total 1285 1050 810 Balance 837.233 780.237 210.302 Weight 90.2 kg Intake: IV 1400 1200 600 Piperacillin-Tazobactam 3 200 100 .375 gm In Sodium Chloride 0.9% 100 ml @ 25 mls/hr IVPB Q8HR [facility] Rx# :[id number] Sodium Chloride 0.9% 1, 1200 1100 600 000 ml @ 100 mls/hr IV . Q10H [facility] Rx#:[id number] Intake, IV Titration 332.233 240.237 120.302 Amount Clevidipine Butyrate 25 2.933 13.136 mg In Empty Bag 1 bag @ 1 MG/HR 2 mls/hr IV .Q24H [facility] Rx#:[id number] Dexmedetomidine/0.9% NaCl 153.294 36.192 (Pmx) 400 mcg In Empty Bag 1 bag @ Titrate IV . Q0M [facility] Rx#:[id number] Morphine Sulfate (100 mg/ 51.952 39.134 2 ml) 100 mg In Sodium Chloride 0.9% 100 ml @ 4 MG/HR 4.08 mls/hr IV . Q24H [facility] Rx#:[id number] propofoL 1,000 mg In 280.281 84.010 31.840 Empty Bag 1 bag @ Titrate IV .Q0M [facility] Rx#: [id number] Tube Feeding 390 330 240 Other 60 60 Output: Chest Tube Drainage 265 250 Chest Tube Left Upper 265 250 Lateral Chest Urine 1020 1050 560 Other: Voiding Method Indwelling Catheter Indwelling Catheter Indwelling Catheter ABP, PAP, CO, CI - Last Documented Arterial Blood Pressure 148/83 - Exam -GENERAL: The patient is intubated and sedated HEENT: Pupils are round and equally reacting to light. EOMI. No scleral icterus. No conjunctival pallor. Normocephalic, atraumatic. No pharyngeal erythema. No thyromegaly. CARDIOVASCULAR: S1 and S2 present. No murmurs, rubs, or gallops. -PULMONARY: Chest is clear to auscultation, no wheezing or crackles. Left-sided chest tube midline vertical surgical wound is clean and dry and closed -ABDOMEN: Soft, nontender, nondistended, normoactive bowel sounds. No palpable organomegaly. MUSCULOSKELETAL: No joint swelling or deformity. EXTREMITIES: No cyanosis, clubbing, or pedal edema. NEUROLOGICAL: Gross neurological examination did not reveal any focal deficits. SKIN: No rashes. no petechiae. - Labs CBC & Chem 7: 02/22/20 05:20 02/22/20 05:20 Labs: Abnormal Lab Results - Last 24 Hours (Table) 02/21/20 02/21/20 02/21/20 Range/Units 01:00 04:20 04:20 WBC 13.4 H (3.8-10.6) k/uL RBC 2.99 L (4.30-5.90) m/uL Hgb 8.6 L (13.0-17.5) gm/dL Hct 25.8 L (39.0-53.0) % ABG pCO2 (35-45) mmHg ABG pO2 (83-108) mmHg ABG O2 Saturation (94-97) % Chloride 114 H (98-107) mmol/L Carbon Dioxide 20 L (22-30) mmol/L Creatinine 0.52 L (0.66-1.25) mg/dL Glucose 122 H (74-99) mg/dL POC Glucose (mg/dL) 119 H (75-99) mg/dL Calcium 7.3 L (8.4-10.2) mg/dL AST 175 H (17-59) U/L ALT 104 H (4-49) U/L Alkaline Phosphatase 175 H (38-126) U/L Total Protein 3.9 L (6.3-8.2) g/dL Albumin 2.0 L (3.5-5.0) g/dL 02/21/20 02/21/20 02/21/20 Range/Units 04:23 06:30 11:43 WBC (3.8-10.6) k/uL RBC (4.30-5.90) m/uL Hgb (13.0-17.5) gm/dL Hct (39.0-53.0) % ABG pCO2 32 L (35-45) mmHg ABG pO2 129 H (83-108) mmHg ABG O2 Saturation 98.7 H (94-97) % Chloride (98-107) mmol/L Carbon Dioxide (22-30) mmol/L Creatinine (0.66-1.25) mg/dL Glucose (74-99) mg/dL POC Glucose (mg/dL) 103 H 156 H (75-99) mg/dL Calcium (8.4-10.2) mg/dL AST (17-59) U/L ALT (4-49) U/L Alkaline Phosphatase (38-126) U/L Total Protein (6.3-8.2) g/dL Albumin (3.5-5.0) g/dL 02/21/20 02/22/20 Range/Units 18:32 00:28 WBC (3.8-10.6) k/uL RBC (4.30-5.90) m/uL Hgb (13.0-17.5) gm/dL Hct (39.0-53.0) % ABG pCO2 (35-45) mmHg ABG pO2 (83-108) mmHg ABG O2 Saturation (94-97) % Chloride (98-107) mmol/L Carbon Dioxide (22-30) mmol/L Creatinine (0.66-1.25) mg/dL Glucose (74-99) mg/dL POC Glucose (mg/dL) 138 H 123 H (75-99) mg/dL Calcium (8.4-10.2) mg/dL AST (17-59) U/L ALT (4-49) U/L Alkaline Phosphatase (38-126) U/L Total Protein (6.3-8.2) g/dL Albumin (3.5-5.0) g/dL Microbiology - Last 24 Hours (Table) 02/20/20 15:47 Blood Culture - Preliminary Blood No Growth after 24 hours 02/20/20 16:22 Blood Culture - Preliminary Blood No Growth after 24 hours Assessment and Plan Assessment: - Fall from ladder with trauma to chest and abdomen with traumatic hydro- pneumothorax , status post chest tube -Splenic injury status post splenectomy patient had appropriate on him as well postoperative day 4. -Acute ventilatory dependent respiratory failure hypoxic secondary to polytrauma, pneumothorax and splenic injury, continue with the ventilatory support and wean off as tolerated. days of empiric antibiotics with Zosyn -Traumatic left-sided rib fractures, alert to 7 -hyponatremia: Secondary to half-normal saline was switched to normal saline -Hemorrhagic shock on admission which improved patient received 4 units of PRBC transfusion presently hemodynamically stable is not requiring any pressors -acute blood loss anemia from polytrauma pneumoperitoneum -history of carotid artery disease with previous bypass surgery -Hyperlipidemia -Benign prostatic hypertrophy
[2020-02-22] MEDS ORDERED: FUROSEMIDE 10 MG/ML 4 ML VIAL IV STA (07:40)
[2020-02-22] MEDS: ENOXAPARIN 40 MG/0.4 ML SYRINGE SQ SCH (08:07)
[2020-02-22] MEDS: CHLORHEXIDINE GLUCONATE 15 ML CUP MUCOUS MEM SCH ×2 (08:07→20:22)
--- NOTE | 2020-02-22 08:24 | XR ---
EXAMINATION TYPE: XR chest 1V portable DATE OF EXAM: 02/22/2020 COMPARISON: 02/21/2020 INDICATION: Mechanically ventilated, difficulty breathing TECHNIQUE: Single frontal view of the chest is obtained. FINDINGS: The heart size is normal. The pulmonary vasculature is normal. Bibasilar infiltrates are present. Small left pleural effusion is present. Multiple lines and catheters are present. The endotracheal tube tip is above the rony. Nasogastric tube transverses the thorax tip in the abdomen. Left central venous catheter is present with the tip in the distal superior vena cava region. Left-sided chest tube is present with the tip directed towar ds the left diaphragm. No pneumothorax is evident. IMPRESSION: 1. Left basilar infiltrate and/or small pleural effusion, worsening from prior study. 2. Stable right lower lobe infiltrate. 3. Multiple lines and catheters discussed above.
--- NOTE | 2020-02-22 10:49 | P.PN ---
Subjective Progress Note Date: 02/22/20 This is a 69-year-old male patient who was working on his gutters when he fell off a 15 foot ladder. This was unwitnessed. He end up calling his who in turn called EMS and the patient was brought in to the emergency department. Upon arrival, the patient was hypotensive and he was in shock. The patient initial chest x-ray showed several left-sided fractures and small amount of subcutaneous air in addition to a left-sided pneumothorax. The x-ray of the pelvis showed no evidence of any fracture or dislocation. The CAT scan of the brain showed age-related atrophy and chronic small vessel ischemic changes without any acute intracranial process. CAT scan of cervical spine showed no acute abnormalities. On and has Been of the cervical spine was done and the bone and soft tissue windows showed no acute abnormalities. There was no evidence of any fracture. Along with multiple left-sided rib fractures third extending to the seventh rib. There was also spending the sedation with estima daxa grade 3 injury the patient. The patient's hemoglobin dropped to 10.5. The patient received a total of 2 L of IV fluid and 40 minutes of packed RBC. Morning hemoglobin today is At 13.4. The patient was taken to the operating room yesterday. The patient underwent a left-sided chest tube insertion. The patient also had splenectomy done and following that the patient was kept intubated on a mechanical ventilator and he was transferred to the intensive care unit. Note that the patient takes morphine outpatient basis and he has chronic pain and chronic narcotic requirements and on outpatient basis he takes morphine sulfate in the form of MS Contin 50 mg every 12 hours. Overnight, the patient was intubated on mechanical ventilator. He was sedated with a combination of propofol and he was also placed on morphine drip after being given several boluses control his pain. This morning, Profore is running at 70 mg per KG per minute. Morphine is running at 8 mg an hour. The patient is on normal saline at rate of 85 mL an hour. The patient has a left sided chest tube. Total amount of output is in order 110 mL of serosanguineous material without evidence of any air leak. The ventilator setting shows an assist- control mode rate of 20 with a tidal volume of 500 and FiO2 of 40% with a PEEP of 5. The patient's FiO2 is down to 40% overnight. The morning blood gases showed a pH of 7.4 with a pCO2 of 37 and pO2 of 121. The chest x-ray from this morning shows that the patient has an indwelling left-sided chest tube without any signs or pneumothorax. There is also a basilar pleural-based opacity along with multiple left-sided rib fractures and ET tube is in a good location. He is at approximately slightly swollen probably related to an infiltrated IV. He did not require any pressors. He remains hemodynamically stable. Lactic acid remains slightly elevated at 2.9 On 02/19/2020, the patient's seen for a follow-up. Earlier this morning, the patient was doing well and patient was well sedated on propofol at 70 g per KG per minute and morphine at 8 mg an hour. He was on a mechanical ventilator on assist control mode at the rate of 20 with a tidal volume of 500 and FiO2 of 40% with a PEEP of 5. His chest x-ray showed no acute abnormalities. There was no evidence of any pneumothorax. The patient left-sided chest tube in place. No evidence of any air leak. The chest x-ray showed multiple left-sided rib fractures, stable right medial basilar atelectasis, stable left basilar infiltrate/atelectasis. No other acute abdominal masses otherwise noted. As for the blood gases, the patient a pH of 7.49 with a pCO2 of 31 and pO2 of 84. The patient was hemodynamically stable on no pressors. Hemoglobin was stable at 11.6. Lactic acid level is improved. Based on this, the patient was given a sedation holiday. Initially he recovered nicely from this sedation. He was kept on morphine for pain control at a lower dose of 12 mg an hour. He was taken off the propofol. He was given as pertains breathing trial and he seemed to be quite comfortable and he was getting progressively more restless. At that point, I made decision to extubate the patient, and he was placed on oxygen by nasal cannula. The first 20-30 minutes, the patient did well post extubation. Subsequently, he became progressively more restless, agitated, he was having tremors and he was thrashing around. He was not following any commands. He became progressively more tachycardic. He went into atrial fibrillation with rapid ventricular response with a heart rate in the 180s. He became HYPERTENSIVE with systolic blood pressure went up to 200s. Based on all this, the patient was started on side effects drip for blood pressure control. I thought that the patient was withdrawing from alcohol. It's clear to me that the patient has a component of alcoholism and it was noted that the patient was intoxicated alcohol at time of admission. As such, he could have been in delirium tremens. He was given a total of 4 mg of Ativan without any major improvement. At that point, I decided to reintubate the patient. He was placed again on propofol and morphine drip was continued and he was intubated in the intensive care unit without any major difficulties. A triple lumen cath was also inserted. As for atrial fibrillation, the patient was started on amiodarone drip per protocol. Chest x-ray post intubation showed no acute abnormalities. She wasn't in that location. Triple lumen catheter was also in good location. NG tube was also be inserted. 02/20/2020, the patient is sedated on a mechanical ventilator. He failed extubation yesterday because of activity delirium tremens. He was restarted back on propofol running at 50, respiratory KG per minute and morphine at 6 mg an hour. He is also on normal saline at 0.9 percent at 100 mL an hour. He was running a lower blood pressure yesterday. He was given a bolus of IV fluids and a second bolus was given to him today. Both boluses are 1 L. The patient has converted back into normal sinus rhythm. Note that he was loaded with amiodarone yesterday and he was kept on amiodarone throughout the day and currently amiodarone is running at 0.5 mg per minute. A. fib RVR has recovered and the patient is back into normal sinus rhythm. He remains on a mechanical ventilator. He is an assist-control mode at the rate of 20 with a tidal volume of 500 and FiO2 40% with a PEEP of 5. A blood gas showed a pH of 7.48 with a pCO2 of 27 and pO2 of 97. The patient is afebrile. The patient has a clear abdominal wounds. The chest tube on the left is still in place without evidence of any air leak and output from the chest tube has been serosanguineous in order of 240 mL over the past 24 hours. Urine output is adequate. No other significant events overnight. On 02/21/2020 and seeing the patient for a follow-up in the intensive care unit. The patient is on a combination of propofol and morphine sulfate. Propofol is running at 55 g per KG pigmented emotional sulfate is 4 mg an hour. He is calm and comfortable. He is an assist-control mode at the rate of 20 with a tidal volume of 500 and a FiO2 of 40% with a PEEP of 5. His morning blood gases showed a pH of 7.45 with a pCO2 of 32 and pO2 129. Chest x-ray showing some limited atelectatic changes and infiltration of the lung bases. The patient's chest x-ray showed no evidence of any pneumothorax. The output from the left- sided chest tube is in the order of 10 25 mL over the past 24 hours and there is no evidence of any air leak. The patient is calm and comfortable. I'm going to give him a sedation holiday. I'm going to consider Precedex instead of propofol as an alternative sedative medication and assess the patient's underlying mental status. He is hemodynamically stable. He has required no pressors. He remains in sinus rhythm. Amiodarone is currently discontinued. Is tolerating his enteral feeding for nutritional support. 02/22/2020, the patient is being seen in follow-up. I tried to make an adjustment in the patient's sedation. I stopped the propofol yesterday and switch the patient to Precedex. I Do morphine sulfate. The patient did well for quite some time. Subsequently he became again agitated restless pulling on his tubes and it was very difficult to control his agitation. Based on that, I stopped the Precedex and put him back on propofol. Currently he is intubated on a mechanical ventilator and propofol is running at 60 mics of respiratory KG per minute and the patient is also morphine sulfate a 4 mg an hour. He is in a positive fluid balance and the patient would benefit from diuresis. He is on no pressors. Left-sided chest tube is in place and output is around 2 50 mL over the past 12 hours. There is no evidence of air leak. Chest x-ray showing bilateral pulmonary infiltrates slightly worse on the right. The patient remains on a mechanical ventilation. He is on assist-control at the rate of 20 with a tidal volume of 500 and FiO2 of 40% with a PEEP of 5. PH is at 7.4 with a pCO2 of 38 and pO2 of 100. He is taken his enteral feeding and he is receiving vital high protein at the rate of 30 mL an hour. No other complaints or issues for now. No fever. No chills. His blood pressure was somewhat elevated and he was briefly given Cleviprex for blood pressure control which is still running at 1 mg an hour and this will be weaned off. He remains on empiric antibiotic coverage with IV Zosyn. Repeat blood cultures came back negative. Objective - Vital Signs Vital signs: Vital Signs Temp 100.5 F H 02/22/20 08:00 Pulse 88 02/22/20 10:00 Resp 20 02/22/20 10:00 BP 150/64 02/22/20 10:00 Pulse Ox 98 02/22/20 10:00 Intake & Output 02/21/20 02/22/20 02/22/20 18:59 06:59 18:59 Intake Total 3407.044 4143.481 520.784 Output Total 1050 1315 1785 Balance 780.237 848.481 -1264.216 Weight 92 kg Intake: IV 1200 1300 290 Piperacillin-Tazobactam 3 100 100 50 .375 gm In Sodium Chloride 0.9% 100 ml @ 25 mls/hr IVPB Q8HR [facility] Rx# :[id number] Sodium Chloride 0.9% 1, 1100 1200 240 000 ml @ 20 mls/hr IV . Q24H [facility] Rx#:[id number] Intake, IV Titration 240.237 323.481 50.784 Amount Clevidipine Butyrate 25 2.933 13.136 mg In Empty Bag 1 bag @ 1 MG/HR 2 mls/hr IV .Q24H [facility] Rx#:[id number] Dexmedetomidine/0.9% NaCl 153.294 36.192 (Pmx) 400 mcg In Empty Bag 1 bag @ Titrate IV . Q0M [facility] Rx#:[id number] Morphine Sulfate (100 mg/ 74.766 2 ml) 100 mg In Sodium Chloride 0.9% 100 ml @ 4 MG/HR 4.08 mls/hr IV . Q24H [facility] Rx#:[id number] propofoL 1,000 mg In 84.010 199.387 50.784 Empty Bag 1 bag @ Titrate IV .Q0M [facility] Rx#: [id number] Tube Feeding 330 450 150 Other 60 90 30 Output: Chest Tube Drainage 400 100 Chest Tube Left Upper 400 100 Lateral Chest Urine 4565 823 7804 Other: Voiding Method Indwelling Catheter Indwelling Catheter Indwelling Catheter ABP, PAP, CO, CI - Last Documented Arterial Blood Pressure 134/61 - Exam Gen. appearance the patient is sedated, comfortable not in acute respiratory distress. Orotracheal and orogastric tube are both in place. The patient is sedated on a combination of propofol and morphine sulfate Head exam was generally normal. There was no scleral icterus or corneal arcus. Mucous membranes were moist. Neck was supple and without jugular venous distension, thyromegaly, or carotid bruits. Carotids were easily palpable bilaterally. There was no adenopathy. The patient has a left IJ triple-lumen catheter and exit site is dry clean and intact. Lungs sounds are diminished bilaterally and the patient is a left sided chest tube in place. Chest tube is in a good location. Breath sounds are slightly diminished in left lung base compared to the right. No evidence of any air leak and the chest tube Pleur-evac. Cardiac exam revealed the PMI to be normally situated and sized. The rhythm was regular and no extrasystoles were noted during several minutes of auscultation. The first and second heart sounds were normal and physiologic splitting of the second heart sound was noted. There were no murmurs, rubs, clicks, or gallops. Abdomen is soft and nontender. The patient has a mid abdominal scar which is dry clean and intact. A surgical scar/wound is dry clean and intact. No direct distention. No rebound distention. No guarding. Bowel sounds are hypoactive at this point in time. Examination of the extremities revealed easily palpable radial, femoral and pedal pulses. There was no cyanosis, clubbing or edema. Examination of the skin revealed no evidence of significant rashes, suspicious appearing nevi or other concerning lesions. Neurologic the patient is arousable. Currently he is well sedated. Pupils are equal and reactive to light. No signs of any head trauma. No nystagmus. No clonus. No Babinski. - Labs CBC & Chem 7: 02/22/20 05:20 02/22/20 05:20 Labs: Abnormal Lab Results - Last 24 Hours (Table) 02/21/20 02/21/20 02/22/20 Range/Units 11:43 18:32 00:28 WBC (3.8-10.6) k/uL RBC (4.30-5.90) m/uL Hgb (13.0-17.5) gm/dL Hct (39.0-53.0) % MCHC (31.0-37.0) g/dL ABG Total CO2 (19-24) mmol/L ABG O2 Saturation (94-97) % Chloride (98-107) mmol/L Creatinine (0.66-1.25) mg/dL Glucose (74-99) mg/dL POC Glucose (mg/dL) 156 H 138 H 123 H (75-99) mg/dL Calcium (8.4-10.2) mg/dL AST (17-59) U/L ALT (4-49) U/L Alkaline Phosphatase (38-126) U/L Total Protein (6.3-8.2) g/dL Albumin (3.5-5.0) g/dL 02/22/20 02/22/20 02/22/20 Range/Units 04:49 05:20 05:20 WBC 17.3 H (3.8-10.6) k/uL RBC 2.85 L (4.30-5.90) m/uL Hgb 9.3 L (13.0-17.5) gm/dL Hct 24.4 L (39.0-53.0) % MCHC 38.1 H (31.0-37.0) g/dL ABG Total CO2 25 H (19-24) mmol/L ABG O2 Saturation 97.7 H (94-97) % Chloride 114 H (98-107) mmol/L Creatinine 0.51 L (0.66-1.25) mg/dL Glucose 106 H (74-99) mg/dL POC Glucose (mg/dL) (75-99) mg/dL Calcium 7.8 L (8.4-10.2) mg/dL AST 137 H (17-59) U/L ALT 93 H (4-49) U/L Alkaline Phosphatase 235 H (38-126) U/L Total Protein 4.3 L (6.3-8.2) g/dL Albumin 2.2 L (3.5-5.0) g/dL 02/22/20 Range/Units 05:55 WBC (3.8-10.6) k/uL RBC (4.30-5.90) m/uL Hgb (13.0-17.5) gm/dL Hct (39.0-53.0) % MCHC (31.0-37.0) g/dL ABG Total CO2 (19-24) mmol/L ABG O2 Saturation (94-97) % Chloride (98-107) mmol/L Creatinine (0.66-1.25) mg/dL Glucose (74-99) mg/dL POC Glucose (mg/dL) 109 H (75-99) mg/dL Calcium (8.4-10.2) mg/dL AST (17-59) U/L ALT (4-49) U/L Alkaline Phosphatase (38-126) U/L Total Protein (6.3-8.2) g/dL Albumin (3.5-5.0) g/dL Microbiology - Last 24 Hours (Table) 02/20/20 15:47 Blood Culture - Preliminary Blood No Growth after 24 hours 02/20/20 16:22 Blood Culture - Preliminary Blood No Growth after 24 hours Assessment and Plan Plan: 1 fall off a ladder with significant trauma to the chest and abdomen. 2 traumatic grade 3 laceration of the spleen along with hemoperitoneum and the patient is post splenectomy and the patient is postop day #5. Abdominal wound is clear and the patient is started on enteral feeding for nutritional support. 3 traumatic left-sided rib fractures third drip through seventh rib along with a 30% left-sided pneumothorax post chest tube insertion with adequate expansion of the left lung. The left-sided chest tube is still in place. No air leak. There is ongoing drainage and for that reason chest she will be kept in place. 4 shock at the time of admission, essentially due to hemorrhagic shock, recov ered currently on no pressors 5 blood loss anemia, acute, secondary to pneumoperitoneum, transfused with a total of 4 units of packed RBC, hemoglobin remains stable. 6 acute ventilator-dependent respiratory failure, hypoxic, secondary to above. The patient is not amenable and is essentially related to his mental status. He gets quite agitated. The first attempt to extubate the patient. The patient became quite delirious and he went into delirium tremens. Since then, the patient is receiving daily sedation holidays. Unable to wean off the sedation and become unresponsive and awake. Unable to do any sort of weaning parameters. He is not ready for any weaning for extubation. May need a PEG and trach. I think is a component of delirium tremens in addition to chronic narcotic medica tion dependence and the patient is probably withdrawing from both. I have given a morphine drip at 4 mg an hour. He also developed some lower lobe at the pulmonary infiltrates in the left sided pneumothorax is essentially recovered. 7 chronic neck pain and the patient had been taken MS Contin on outpatient basis 15 mg twice a day 8 coronary artery disease with a previous bypass surgery 9 hyperlipidemia 10 BPH 11 delirium tremens as the patient is suspected alcoholism with symptoms of deli rium tremens currently intubated on propofol and morphine sulfate infusions. 12 A. fib RVR, converted to sinus rhythm and the patient is off amiodarone and echocardiogram shows a normal LV function 13 leukocytosis, likely reactive, improving and the patient on empirically covered with IV Zosyn., Plan Continue ventilator support without any changes Sedation holiday on a daily basis although the patient has failed sedation holidays over this past 4-5 days. Failed extubation due to delirium tremens Continue propofol and morphine sulfate Consider a PEG and trach Give Lasix 40 mg IV push The IV Fluids to KVO Cardiac rhythm remains sinus Continue enteral feeding for nutritional support Continue IV Zosyn Continue enteral feeding for nutritional support Echocardiogram results were noted Output from the chest tube is still high and the patient will be kept Wall Suction and the Chest She Will Be Kept in Place We'll continue to follow. The patient is critically ill, and the patient will monitored very closely in the ICU. This is a critically care evaluation that was on a more than 30 minutes. Time with Patient: Greater than 30
[2020-02-22 11:35] LABS: Glucose,Whole Blood 127 mg/dL (75-99)
--- NOTE | 2020-02-22 11:38 | P.PN ---
Subjective Progress Note Date: 02/22/20 CHIEF COMPLAINT: Status post fall HISTORY OF PRESENT ILLNESS: The patient is a 69-year-old male admitted after falling off a ladder including status post splenectomy. He has history of chronic pain including alcoholism. Patient was agitated overnight without Propofol. He was changed back from Precedex to propofol. He had temp 100.5 with history of splenectomy and delerium tremens. Infectious disease is following. He still has chest tube, that is now on waterseal. He is on antibiotics. ROS: On full ventilatory support. History of agitation and delirium tremens PHYSICAL EXAM: VITAL SIGNS: Reviewed CONSTITUTIONAL: Well developed and in no acute distress. EYES: Conjuctivae without sclera icterus. HEAD, EARS, NOSE, THROAT: Moist buccal mucosa. Head is normocephalic. No nasal drainage. NECK: Supple. No thyroidomegaly. RESPIRATORY: Non-labored respirations and equal bilateral excursions. On full mechanical support. Left chest tube with serosanguineous drainage. CARDIOVASCULAR: Palpable 2+ radial pulses. ABDOMEN: Soft. No peritonitis. At bedside, dressing changed and incision cleaned. MUSCULOSKELETAL: No clubbing. No cyanosis. SKIN: Good skin turgor. Well perfused. NEUROLOGIC: On sedation. PSYCH: On sedation. CLINICAL LABS: White blood cell stable 13.4 up to 17.4. Hemoglobin down from 9.7-8.6, now 9.3. ASSESSMENT: 1. s/p fall 2. Alcohol withdrawal 3. Chronic pain meds 4. s/p splenectomy 5. Vent dependent respiratory failure PLAN: 1. Continue ICU management 2. May need blood cultures for persistent fevers 3. Patient has asplenia. Will need vaccines in the future. Objective - Vital Signs Vital signs: Vital Signs Temp 100.5 F H 02/22/20 08:00 Pulse 97 02/22/20 11:00 Resp 20 02/22/20 11:00 BP 145/70 02/22/20 11:00 Pulse Ox 97 02/22/20 11:00 Intake & Output 02/21/20 02/22/20 02/22/20 18:59 06:59 18:59 Intake Total 6372.334 3121.481 695.784 Output Total 1050 1315 2045 Balance 780.237 848.481 -1349.216 Weight 92 kg Intake: IV 1200 1300 335 Piperacillin-Tazobactam 3 100 100 75 .375 gm In Sodium Chloride 0.9% 100 ml @ 25 mls/hr IVPB Q8HR [facility] Rx# :[id number] Sodium Chloride 0.9% 1, 1100 1200 260 000 ml @ 20 mls/hr IV . Q24H [facility] Rx#:[id number] Intake, IV Titration 240.237 323.481 150.784 Amount Clevidipine Butyrate 25 2.933 13.136 mg In Empty Bag 1 bag @ 1 MG/HR 2 mls/hr IV .Q24H [facility] Rx#:[id number] Dexmedetomidine/0.9% NaCl 153.294 36.192 (Pmx) 400 mcg In Empty Bag 1 bag @ Titrate IV . Q0M [facility] Rx#:[id number] Morphine Sulfate (100 mg/ 74.766 2 ml) 100 mg In Sodium Chloride 0.9% 100 ml @ 4 MG/HR 4.08 mls/hr IV . Q24H [facility] Rx#:[id number] propofoL 1,000 mg In 84.010 199.387 150.784 Empty Bag 1 bag @ Titrate IV .Q0M [facility] Rx#: [id number] Tube Feeding 330 450 180 Other 60 90 30 Output: Chest Tube Drainage 400 100 Chest Tube Left Upper 400 100 Lateral Chest Urine 3953 413 4731 Other: Voiding Method Indwelling Catheter Indwelling Catheter Indwelling Catheter ABP, PAP, CO, CI - Last Documented Arterial Blood Pressure 150/62 - Labs CBC & Chem 7: 02/22/20 05:20 02/22/20 15:40 Labs: Abnormal Lab Results - Last 24 Hours (Table) 02/21/20 02/21/20 02/22/20 Range/Units 11:43 18:32 00:28 WBC (3.8-10.6) k/uL RBC (4.30-5.90) m/uL Hgb (13.0-17.5) gm/dL Hct (39.0-53.0) % MCHC (31.0-37.0) g/dL ABG Total CO2 (19-24) mmol/L ABG O2 Saturation (94-97) % Chloride (98-107) mmol/L Creatinine (0.66-1.25) mg/dL Glucose (74-99) mg/dL POC Glucose (mg/dL) 156 H 138 H 123 H (75-99) mg/dL Calcium (8.4-10.2) mg/dL AST (17-59) U/L ALT (4-49) U/L Alkaline Phosphatase (38-126) U/L Total Protein (6.3-8.2) g/dL Albumin (3.5-5.0) g/dL 02/22/20 02/22/20 02/22/20 Range/Units 04:49 05:20 05:20 WBC 17.3 H (3.8-10.6) k/uL RBC 2.85 L (4.30-5.90) m/uL Hgb 9.3 L (13.0-17.5) gm/dL Hct 24.4 L (39.0-53.0) % MCHC 38.1 H (31.0-37.0) g/dL ABG Total CO2 25 H (19-24) mmol/L ABG O2 Saturation 97.7 H (94-97) % Chloride 114 H (98-107) mmol/L Creatinine 0.51 L (0.66-1.25) mg/dL Glucose 106 H (74-99) mg/dL POC Glucose (mg/dL) (75-99) mg/dL Calcium 7.8 L (8.4-10.2) mg/dL AST 137 H (17-59) U/L ALT 93 H (4-49) U/L Alkaline Phosphatase 235 H (38-126) U/L Total Protein 4.3 L (6.3-8.2) g/dL Albumin 2.2 L (3.5-5.0) g/dL 02/22/20 02/22/20 Range/Units 05:55 11:33 WBC (3.8-10.6) k/uL RBC (4.30-5.90) m/uL Hgb (13.0-17.5) gm/dL Hct (39.0-53.0) % MCHC (31.0-37.0) g/dL ABG Total CO2 (19-24) mmol/L ABG O2 Saturation (94-97) % Chloride (98-107) mmol/L Creatinine (0.66-1.25) mg/dL Glucose (74-99) mg/dL POC Glucose (mg/dL) 109 H 127 H (75-99) mg/dL Calcium (8.4-10.2) mg/dL AST (17-59) U/L ALT (4-49) U/L Alkaline Phosphatase (38-126) U/L Total Protein (6.3-8.2) g/dL Albumin (3.5-5.0) g/dL Microbiology - Last 24 Hours (Table) 02/20/20 15:47 Blood Culture - Preliminary Blood No Growth after 24 hours 02/20/20 16:22 Blood Culture - Preliminary Blood No Growth after 24 hours Assessment and Plan (1) Traumatic fracture of ribs of left side with pneumothorax Current Visit: Yes Status: Acute Code(s): S22.42XA - MULTIPLE FRACTURES OF RIBS, LEFT SIDE, INIT FOR CLOS FX; S27.0XXA - TRAUMATIC PNEUMOTHORAX, INITIAL ENCOUNTER SNOMED Code(s): 6553039 (2) Alcoholism Current Visit: Yes Status: Acute Code(s): F10.20 - ALCOHOL DEPENDENCE, UNCOMPLICATED SNOMED Code(s): 1755933 (3) Alcohol withdrawal Current Visit: Yes Status: Acute Code(s): F10.239 - ALCOHOL DEPENDENCE WITH WITHDRAWAL, UNSPECIFIED SNOMED Code(s): 791196913 (4) Chronic pain syndrome Current Visit: Yes Status: Acute Code(s): G89.4 - CHRONIC PAIN SYNDROME SNOMED Code(s): 286020378 (5) Hemorrhagic shock Current Visit: Yes Status: Acute Code(s): R57.8 - OTHER SHOCK SNOMED Code(s): 362061 (6) Post-splenectomy Current Visit: Yes Status: Acute Code(s): Z90.81 - ACQUIRED ABSENCE OF SPLEEN SNOMED Code(s): 205118199 (7) Ruptured spleen Current Visit: Yes Status: Acute Code(s): S36.09XA - OTHER INJURY OF SPLEEN, INITIAL ENCOUNTER SNOMED Code(s): 110219264
[2020-02-22] MEDS: CLEVIDIPINE BUTYRATE 25 MG in EMPTY BAG 1 BAG IV SCH (13:11)
[2020-02-22] MEDS: POTASSIUM BICARBONATE/CIT AC 20 MEQ TABLET.EFF NG-TUBE SCH ×2 (13:13→14:16)
[2020-02-22 17:50] LABS: Appearance,Urine Clear (Clear); Bilirubin,Urine Negative (Negative); Blood,Urine Negative (Negative); Color,Urine Yellow; Glucose,Urine (UA) Negative (Negative); Ketones,Urine Trace (Negative); Leukocyte Esterase,Urine Negative (Negative); Nitrite,Urine Negative (Negative); PH, Urine 5.5 (5.0-8.0); Protein,Urine Trace (Negative); Specific Gravity,Urine 1.022 (1.001-1.035); Urobilinogen,Urine <2.0 mg/dL (<2.0)
[2020-02-22 18:07] LABS: Glucose,Whole Blood 123 mg/dL (75-99)
[2020-02-22] MEDS: ATORVASTATIN 20 MG TAB PO SCH (20:22)
[2020-02-22] MEDS: FINASTERIDE 5 MG TAB PO SCH (20:23)
[2020-02-22] MEDS: TAMSULOSIN 0.4 MG CAP.ER.24H PO SCH (20:23)
[2020-02-22] MEDS ORDERED: FUROSEMIDE 10 MG/ML 4 ML VIAL IV ONE (21:00)
--- NOTE | 2020-02-22 21:57 | P.PN ---
Subjective 69-year-old male was cleaning gutters fell from skin feet ladder was brought into emergency department found to have several left-sided fractures left-sided pneumothorax with a left-sided chest tube presently patient is presently intubated patient has multiple left-sided fractures from third to seventh rib patient also had a splenectomy for splenic injury. Patient is presently sedated with propofol and also morphine drip patient is presently on ventilatory support blood gases showed normal pH pCO2 and pO2 are within normal limits as well pat ient is presently onZosyn patient had lactic acidosis secondary tolactated Ringer's. Patient is hyperchloremic because of which probably will start him on half-normal saline. 02/19/2020 Patient is expected today and shortly after that patient didn't tolerate that and patient ended up undergoing an atrial fibrillation patient was started on amiodarone patient was subsequently reintubated. Patient is bit hyponatremic because of extensive switching the IV fluids to normal saline instead of half- normal saline. Patient is also getting amiodarone. D5 water. Patient is not requiring any pressors at this time. Please refer to intensive is documentation for further details of ventilator settings. 02/20/2020 Patient developed ongoing trial patient is having sedation vacation patient heart rate is better controlled patient overall clinical condition is bit better today 02/21/2020 Patient still in the ICU, he is intubated and sedated. Chest tube is in place and it hasn't output about 325 in 24 hours, propofol was switched to Paradox by critical care team. Pulmonary/critical care troponin measuring the event, sugar was low but most likely this is a false reading because patient is edematous. Surgical wound in the middle of the abdomen it looks clean and dry and closed. Patient is getting IV morphine. Creatinine and electrolytes are normal. Echocardiogram showing ejection fraction of 55-60% with moderate to severe mitral regurgitation His WBCs 17.3 K. Liver enzymes are trending down 02/22/2020 Patient the ICU, he could not tolerate the current sedative and he had to be placed back on the propofol, he got agitated overnight and he needed restraints. These making about 1 5200 mL of chest tube drainage every 12 hours Lasix is added. Also he had low-grade temperature and mild increase in WBC, he still on Zosyn and IV on the case. Cultures are negative so far Review of systems: N/a Active Medications Generic Name Dose Route Start Last Admin Trade Name Freq PRN Reason Stop Dose Admin Acetaminophen 650 mg 02/20/20 22:00 02/22/20 11:20 Tylenol Tab PO 650 mg Q6HR PRN Administration Fever and/ or Pain Atorvastatin Calcium 20 mg 02/18/20 21:00 02/22/20 20:22 Lipitor PO 20 mg HS BETTINA Administration Chlorhexidine Gluconate 15 ml 02/18/20 12:00 02/22/20 20:22 Peridex MUCOUS MEM 15 ml BID BETTINA Administration Enoxaparin Sodium 40 mg 02/18/20 09:00 02/22/20 08:07 Lovenox SQ 40 mg DAILY BETTINA Administration Finasteride 5 mg 02/18/20 21:00 02/22/20 20:23 Proscar PO 5 mg HS BETTINA Administration Piperacillin Sod/Tazobactam 100 mls @ 25 mls/hr 02/18/20 00:00 02/22/20 16:01 Sod 3.375 gm/ Sodium Chloride IVPB 25 mls/hr Q8HR BETTINA Administration Morphine Sulfate 100 mg/ 102 mls @ 4.08 mls/hr 02/17/20 21:30 02/22/20 06:49 Sodium Chloride IV 4 mg/hr .Q24H BETTINA 4.08 mls/hr Administration 4 MG/HR Propofol 1,000 mg/ IV Solution 100 mls @ 0 mls/hr 02/17/20 22:45 02/22/20 19:06 IV 60 mcg/kg/min .Q0M BETTINA 33.12 mls/hr Administration Protocol Titrate Sodium Chloride 1,000 mls @ 20 mls/hr 02/19/20 11:45 02/22/20 11:08 Saline 0.9% IV 20 mls/hr .Q24H BETTINA Administration Clevidipine 25 mg/ IV Solution 50 mls @ 2 mls/hr 02/21/20 12:45 02/22/20 13:11 IV Not Given .Q24H BETTINA Protocol 1 MG/HR Insulin Aspart 0 unit 02/18/20 13:00 02/22/20 18:11 Novolog SQ Not Given Q6HR BETTINA Protocol Miscellaneous Information 1 each 02/18/20 05:19 Magnesium Per Protocol MISCELLANE DAILY PRN Per Protocol Protocol Miscellaneous Information 1 each 02/19/20 05:38 Potassium Per Protocol MISCELLANE DAILY PRN Per Protocol Protocol Naloxone HCl 0.2 mg 02/17/20 19:37 Narcan IV Q2M PRN Opioid Reversal Ondansetron HCl 4 mg 02/17/20 19:37 Zofran IVP Q6HR PRN Nausea And Vomiting Tamsulosin HCl 0.8 mg 02/18/20 21:00 02/22/20 20:23 Flomax PO 0.8 mg HS BETTINA Administration Objective - Vital Signs Vital signs: Vital Signs Temp 100.5 F H 02/22/20 08:00 Pulse 97 02/22/20 11:00 Resp 20 02/22/20 11:00 BP 145/70 02/22/20 11:00 Pulse Ox 97 02/22/20 11:00 Intake & Output 02/21/20 02/22/20 02/22/20 18:59 06:59 18:59 Intake Total 3603.199 9018.481 695.784 Output Total 1050 1315 2045 Balance 780.237 848.481 -1349.216 Weight 92 kg Intake: IV 1200 1300 335 Piperacillin-Tazobactam 3 100 100 75 .375 gm In Sodium Chloride 0.9% 100 ml @ 25 mls/hr IVPB Q8HR BETTINA Rx# :[id number] Sodium Chloride 0.9% 1, 1100 1200 260 000 ml @ 20 mls/hr IV . Q24H BETTINA Rx#:[id number] Intake, IV Titration 240.237 323.481 150.784 Amount Clevidipine Butyrate 25 2.933 13.136 mg In Empty Bag 1 bag @ 1 MG/HR 2 mls/hr IV .Q24H BETTINA Rx#:[id number] Dexmedetomidine/0.9% NaCl 153.294 36.192 (Pmx) 400 mcg In Empty Bag 1 bag @ Titrate IV . Q0M BETTINA Rx#:[id number] Morphine Sulfate (100 mg/ 74.766 2 ml) 100 mg In Sodium Chloride 0.9% 100 ml @ 4 MG/HR 4.08 mls/hr IV . Q24H BETTINA Rx#:[id number] propofoL 1,000 mg In 84.010 199.387 150.784 Empty Bag 1 bag @ Titrate IV .Q0M BETTINA Rx#: [id number] Tube Feeding 330 450 180 Other 60 90 30 Output: Chest Tube Drainage 400 100 Chest Tube Left Upper 400 100 Lateral Chest Urine 8733 993 0094 Other: Voiding Method Indwelling Catheter Indwelling Catheter Indwelling Catheter ABP, PAP, CO, CI - Last Documented Arterial Blood Pressure 150/62 - Exam -GENERAL: The patient is intubated and sedated HEENT: Pupils are round and equally reacting to light. EOMI. No scleral icterus. No conjunctival pallor. Normocephalic, atraumatic. No pharyngeal erythema. No thyromegaly. CARDIOVASCULAR: S1 and S2 present. No murmurs, rubs, or gallops. -PULMONARY: Chest is clear to auscultation, no wheezing or crackles. Left-sided chest tube midline vertical surgical wound is clean and dry and closed -ABDOMEN: Soft, nontender, nondistended, normoactive bowel sounds. No palpable organomegaly. MUSCULOSKELETAL: No joint swelling or deformity. EXTREMITIES: No cyanosis, clubbing, or pedal edema. NEUROLOGICAL: Gross neurological examination did not reveal any focal deficits. SKIN: No rashes. no petechiae. - Labs CBC & Chem 7: 02/22/20 05:20 02/22/20 15:40 Labs: Abnormal Lab Results - Last 24 Hours (Table) 02/21/20 02/22/20 02/22/20 Range/Units 18:32 00:28 04:49 WBC (3.8-10.6) k/uL RBC (4.30-5.90) m/uL Hgb (13.0-17.5) gm/dL Hct (39.0-53.0) % MCHC (31.0-37.0) g/dL ABG Total CO2 25 H (19-24) mmol/L ABG O2 Saturation 97.7 H (94-97) % Potassium (3.5-5.1) mmol/L Chloride (98-107) mmol/L Creatinine (0.66-1.25) mg/dL Glucose (74-99) mg/dL POC Glucose (mg/dL) 138 H 123 H (75-99) mg/dL Calcium (8.4-10.2) mg/dL AST (17-59) U/L ALT (4-49) U/L Alkaline Phosphatase (38-126) U/L Total Protein (6.3-8.2) g/dL Albumin (3.5-5.0) g/dL 02/22/20 02/22/20 02/22/20 Range/Units 05:20 05:20 05:55 WBC 17.3 H (3.8-10.6) k/uL RBC 2.85 L (4.30-5.90) m/uL Hgb 9.3 L (13.0-17.5) gm/dL Hct 24.4 L (39.0-53.0) % MCHC 38.1 H (31.0-37.0) g/dL ABG Total CO2 (19-24) mmol/L ABG O2 Saturation (94-97) % Potassium (3.5-5.1) mmol/L Chloride 114 H (98-107) mmol/L Creatinine 0.51 L (0.66-1.25) mg/dL Glucose 106 H (74-99) mg/dL POC Glucose (mg/dL) 109 H (75-99) mg/dL Calcium 7.8 L (8.4-10.2) mg/dL AST 137 H (17-59) U/L ALT 93 H (4-49) U/L Alkaline Phosphatase 235 H (38-126) U/L Total Protein 4.3 L (6.3-8.2) g/dL Albumin 2.2 L (3.5-5.0) g/dL 02/22/20 02/22/20 Range/Units 11:33 12:01 WBC (3.8-10.6) k/uL RBC (4.30-5.90) m/uL Hgb (13.0-17.5) gm/dL Hct (39.0-53.0) % MCHC (31.0-37.0) g/dL ABG Total CO2 (19-24) mmol/L ABG O2 Saturation (94-97) % Potassium 3.4 L (3.5-5.1) mmol/L Chloride (98-107) mmol/L Creatinine (0.66-1.25) mg/dL Glucose (74-99) mg/dL POC Glucose (mg/dL) 127 H (75-99) mg/dL Calcium (8.4-10.2) mg/dL AST (17-59) U/L ALT (4-49) U/L Alkaline Phosphatase (38-126) U/L Total Protein (6.3-8.2) g/dL Albumin (3.5-5.0) g/dL Microbiology - Last 24 Hours (Table) 02/20/20 15:47 Blood Culture - Preliminary Blood No Growth after 24 hours 02/20/20 16:22 Blood Culture - Preliminary Blood No Growth after 24 hours Assessment and Plan Assessment: - Fall from ladder with trauma to chest and abdomen with traumatic hydro-pneumothorax , status post chest tube -Splenic injury status post splenectomy patient had appropriate on him as well postoperative day 4. -Acute ventilatory dependent respiratory failure hypoxic secondary to p olytrauma, pneumothorax and splenic injury, continue with the ventilatory support and wean off as tolerated. days of empiric antibiotics with Zosyn -Traumatic left-sided rib fractures, alert to 7 -hyponatremia: Secondary to half-normal saline was switched to normal saline -Hemorrhagic shock on admission which improved patient received 4 units of PRBC transfusion presently hemodynamically stable is not requiring any pressors -acute blood loss anemia from polytrauma pneumoperitoneum -history of carotid artery disease with previous bypass surgery -Hyperlipidemia -Benign prostatic hypertrophy
--- NOTE | 2020-02-23 00:13 | PN ---
PROGRESS NOTE DATE OF SERVICE: 02/22/2020 REASON FOR FOLLOWUP: 1. Fever. 2. Post splenectomy. INTERVAL HISTORY: The patient did spike a low-grade fever of 100.5 to 100.4 today. The patient is hemodynamically stable. The patient's FiO2 is currently stable at 40%. He did have minimal purulent secretions through ET. No hemoptysis. Has been tolerating his tube feeds. No diarrhea has been reported. PHYSICAL EXAMINATION: Blood pressure 149/62 with a pulse of 105, temperature 100.5. He is 97% on 40% FiO2. General description is an elderly male lying in bed in no distress. RESPIRATORY SYSTEM: Unlabored breathing, clear to auscultation anteriorly. HEART: S1, S2. Regular rate and rhythm. ABDOMEN: Soft, no tenderness. LABS: Hemoglobin 9.3, white count 17.3, BUN of 11, creatinine 0.51. DIAGNOSTIC IMPRESSION AND PLAN: 1. Patient with low-grade fever and elevated white count in this patient who is status post laparotomy for a splenic trauma, status post splenectomy. We will obtain blood cultures, sputum and UA and adjust antibiotic further based on culture report. Continue Zosyn for now. 2. Post splenectomy. He will receive his vaccination on March 02 that will be day 14 of the surgery. at the bedside. Questions were answered. MMODL / IJN: [id number] /
[2020-02-23] MEDS: PIPERACILLIN-TAZOBACTAM 3.375 GM in SODIUM CHLORIDE 0.9% 100 ML IVPB SCH ×4 (01:25→23:53)
[2020-02-23] MEDS: INSULIN ASPART (NovoLOG) 100 UNIT/ML VIAL SQ SCH ×5 (04:25→23:53)
[2020-02-23 05:14] LABS: ABG Base Excess 3.8 mmol/L; ABG HCO3 28 mmol/L (21-25); ABG Oxygen Saturation 95.2 % (94-97); ABG PCO2 38 mmHg (35-45); ABG PH 7.47 (7.35-7.45); ABG PO2 73 mmHg (83-108); ABG TCO2 29 mmol/L (19-24); Allen Test Performed? Yes
[2020-02-23 07:21] LABS: African American GFR (CKD) >90 (>60 ml/min/1.73 sqM); Anion Gap 6 mmol/L; Blood Urea Nitrogen 14 mg/dL (9-20); Calcium 7.9 mg/dL (8.4-10.2); Carbon Dioxide 26 mmol/L (22-30); Chloride 109 mmol/L (98-107); Glucose 132 mg/dL (74-99); Non-African American GFR(CKD) >90 (>60 ml/min/1.73 sqM); Potassium 3.6 mmol/L (3.5-5.1); Sodium 141 mmol/L (137-145)
[2020-02-23 07:45] LABS: HCT 26.5 % (39.0-53.0); HGB 9.5 gm/dL (13.0-17.5); Hypochromasia Slight; MCH 31.2 pg (25.0-35.0); MCHC 35.9 g/dL (31.0-37.0); MCV 86.9 fL (80.0-100.0); Mean Platelet Volume 9.3; Platelet Count 328 k/uL (150-450); Poikilocytosis Slight; RBC 3.05 m/uL (4.30-5.90); RDW 15.1 % (11.5-15.5)
[2020-02-23] MEDS: CHLORHEXIDINE GLUCONATE 15 ML CUP MUCOUS MEM SCH ×2 (08:37→20:29)
[2020-02-23] MEDS: SODIUM CHLORIDE 0.9% 1,000 ML IV SCH (08:37)
[2020-02-23] MEDS: ENOXAPARIN 40 MG/0.4 ML SYRINGE SQ SCH (08:37)
[2020-02-23 08:43] LABS: Band Neutrophils % 3 %; Metamyelocytes % 1 %; Neutrophils % (M) 82 %; Nucleated Red Blood Cells 15 /100 WBC (0-0); Total Cells Counted 200
[2020-02-23] MEDS: MORPHINE SULFATE (100 MG/2 ML) 100 MG in SODIUM CHLORIDE 0.9% 100 ML IV SCH (08:43)
[2020-02-23 08:44] LABS: Eosinophils # (M) 0.44 k/uL (0-0.7); Lymphocytes # (M) 1.55 k/uL (1.0-4.8); Metamyelocytes # (M) 0.22 k/uL (0); Monocytes # (M) 1.33 k/uL (0-1.0); WBC 22.1 k/uL (3.8-10.6)
[2020-02-23 08:53] LABS: Large Platelets Present; Polychromasia Present
--- NOTE | 2020-02-23 08:58 | XR ---
EXAMINATION TYPE: XR chest 1V portable DATE OF EXAM: 02/23/2020 CLINICAL HISTORY: Tube placement TECHNIQUE: Semiupright portable view of the chest obtained COMPARISON: 02/22/2020 chest radiograph FINDINGS: Sternotomy wires and cardiac postsurgical changes redemonstrated. Endotracheal tube distal tip between the clavicular heads and the rony. Left-sided internal jugular central venous catheter distal tip at the distal superior vena cava. Enteric tube courses over the stomach with nonvisualiza tion of the distal tip. Left-sided chest tube with tip overlying the medial left hemidiaphragm. The c ardiomediastinal silhouette is within normal limits for size. There is mildly decreased bilateral ple ural effusions. There are bibasilar patchy airspace opacities with mildly improved aeration at the ri ght lung base. No evidence of pneumothorax. Multiple redemonstrated displaced left-sided rib fracture s. IMPRESSION: 1. Unchanged radiographic appearance of tubes and lines as above. 2. Mildly improved aeration of the bilateral lung bases with persistent small bilateral pleural effus ions and bibasilar airspace opacities. 3. Multiple left sided displaced rib fractures redemonstrated.
[2020-02-23 11:48] LABS: Glucose,Whole Blood 147 mg/dL (75-99)
--- NOTE | 2020-02-23 11:56 | CDI ---
Documentation Clarification Form Date: 02/23/2020 11:17:46 AM From: Monisha Lucero RN CCDS Admit Date: 02/17/2020 06:30:00 PM Patient Name: Tejinder Boyer Visit Number: [id number] Discharge Date: ATTENTION: The Clinical Documentation Specialists (CDI) and [facility] Coding Staff appreciate your assistance in clarifying documentation. Please respond to the clarification below the line at the bottom and electronically sign. The CDI & [facility] Coding staff will review the response and follow-up if needed. Please note: Queries are made part of the Legal Health Record. If you have any questions, please contact the author of this message via ITS. Dr. Crockett E Sheet Atrial Fibrillation is documented in medical management progress note 02/18 through 02/21 Patients Admitting Diagnosis: Ruptured spleen Post-Operative Diagnosis: Traumatic grade 3 laceration of the spleen along with hemoperitoneum. Procedure performed: Splenectomy History/Risk Factors: 69-year-old male presents to the ED via after a fall from a fifteen-foot ladder, admitting diagnosis Traumatic grade 3 laceration of the spleen, hemoperitoneum, traumatic left sided pneumothorax, traumatic left sided rib fractures third through seventh and hemorrhagic shock. Medical History: CAD; Anxiety and former smoker. Clinical Indicators: 02/18 Critical Care Note: I made decision to extubate the patient, and he was placed on oxygen by nasal cannula. the first 20-30 minutes, the patient did well post extubation. Subsequently, he became progressively more restless, agitated, he has having tremors and he was thrashing around. He was not following any commands. He became progressively more tachycardic. He went into atrial fibrillation with rapid ventricular response with a heart rate in the 180s. he became hypertensive with systolic blood pressure went up to 200s. Treatment: 02/18 Amiodarone Ivpb d/c 02/19 In order to accurately reflect this patients severity of illness, please clarify if Atrial Fibrillation is the result of the surgical procedure? Yes No Other, please specify Unable to determine (Last Revision: September 2017) Unable to determine MTDD
[2020-02-23] MEDS: CLEVIDIPINE BUTYRATE 25 MG in EMPTY BAG 1 BAG IV SCH (11:59)
--- NOTE | 2020-02-23 12:34 | P.PN ---
Subjective Progress Note Date: 02/23/20 CHIEF COMPLAINT: Fall with Trauma HISTORY OF PRESENT ILLNESS: 69-year-old male who fell 15 feet off the top of the ladder. Patient's CAT scan was performed showing a large left pneumothorax as well as multiple rib fractures and hemoperitoneum and a ruptured spleen. Patient is status post splenectomy. He is on antibiotics. Patient underwent another weaning trial today and did not tolerate it. Tmax 100.5. Blood cultures pending. WBC 22.1 hemoglobin 9.5 PHYSICAL EXAM: VITAL SIGNS: Reviewed. GENERAL: Well-developed in no acute distress. HEENT: No sclera icterus. Extraocular movements grossly intact. Moist buccal mucosa. Head is atraumatic, normocephalic. ABDOMEN: Soft. Nondistended. Incision has small amount of bleeding on dressing otherwise clean, dry and intact NEUROLOGIC: patient is on the vent and sedated ASSESSMENT: 1. 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 2. Left-sided pneumothorax has chest tube in place 3. Multiple left-sided rib fractures 4. Alcohol intoxication 5. Acute hypoxic ventilatory dependent respiratory failure undergoing weaning trial today 6. Chronic pain medication PLAN: -Continue ICU management -Continue IV fluids -On IV antibiotics -lovenox for DVT prophylaxis Physician Hydropulper Operator note has been reviewed by physician. Signing provider agrees with the documented findings, assessment, and plan of care. Objective - Vital Signs Vital signs: Vital Signs Temp 99.7 F H 02/23/20 08:00 Pulse 73 02/23/20 11:00 Resp 20 02/23/20 11:00 BP 114/62 02/23/20 11:00 Pulse Ox 95 02/23/20 11:00 Intake & Output 02/22/20 02/23/20 02/23/20 18:59 06:59 18:59 Intake Total 1458.040 557.152 656.713 Output Total 2736 523 240 Balance -1277.960 34.152 416.713 Weight 92 kg 93.2 kg Intake: IV 600 240 200 Piperacillin-Tazobactam 3 200 100 .375 gm In Sodium Chloride 0.9% 100 ml @ 25 mls/hr IVPB Q8HR BETTINA Rx# :[id number] Sodium Chloride 0.9% 1, 400 240 100 000 ml @ 20 mls/hr IV . Q24H BETTINA Rx#:[id number] Intake, IV Titration 318.040 197.152 271.713 Amount Morphine Sulfate (100 mg/ 107.032 2 ml) 100 mg In Sodium Chloride 0.9% 100 ml @ 2 MG/HR 2.04 mls/hr IV . Q24H BETTINA Rx#:[id number] propofoL 1,000 mg In 318.040 197.152 164.681 Empty Bag 1 bag @ Titrate IV .Q0M BETTINA Rx#: [id number] Tube Feeding 450 120 155 Other 90 30 Output: Chest Tube Drainage 146 78 10 Chest Tube Left Upper 146 78 10 Lateral Chest Urine 2590 445 230 Other: Voiding Method Indwelling Catheter Indwelling Catheter Indwelling Catheter ABP, PAP, CO, CI - Last Documented Arterial Blood Pressure 124/49 - Labs CBC & Chem 7: 02/23/20 07:00 02/23/20 07:00 Labs: Abnormal Lab Results - Last 24 Hours (Table) 02/22/20 02/22/20 02/23/20 Range/Units 17:30 18:06 05:12 WBC (3.8-10.6) k/uL RBC (4.30-5.90) m/uL Hgb (13.0-17.5) gm/dL Hct (39.0-53.0) % Neutrophils # (Manual) (1.3-7.7) k/uL Monocytes # (Manual) (0-1.0) k/uL Metamyelocytes # (Man) (0) k/uL Nucleated RBCs (0-0) /100 WBC ABG pH 7.47 H (7.35-7.45) ABG pO2 73 L (83-108) mmHg ABG HCO3 28 H (21-25) mmol/L ABG Total CO2 29 H (19-24) mmol/L Chloride (98-107) mmol/L Creatinine (0.66-1.25) mg/dL Glucose (74-99) mg/dL POC Glucose (mg/dL) 123 H (75-99) mg/dL Calcium (8.4-10.2) mg/dL Urine Protein Trace H (Negative) Urine Ketones Trace H (Negative) 02/23/20 02/23/20 02/23/20 Range/Units 07:00 07:00 11:47 WBC 22.1 H (3.8-10.6) k/uL RBC 3.05 L (4.30-5.90) m/uL Hgb 9.5 L (13.0-17.5) gm/dL Hct 26.5 L (39.0-53.0) % Neutrophils # (Manual) 18.70 H (1.3-7.7) k/uL Monocytes # (Manual) 1.33 H (0-1.0) k/uL Metamyelocytes # (Man) 0.22 H (0) k/uL Nucleated RBCs 15 H (0-0) /100 WBC ABG pH (7.35-7.45) ABG pO2 (83-108) mmHg ABG HCO3 (21-25) mmol/L ABG Total CO2 (19-24) mmol/L Chloride 109 H (98-107) mmol/L Creatinine 0.62 L (0.66-1.25) mg/dL Glucose 132 H (74-99) mg/dL POC Glucose (mg/dL) 147 H (75-99) mg/dL Calcium 7.9 L (8.4-10.2) mg/dL Urine Protein (Negative) Urine Ketones (Negative) Microbiology - Last 24 Hours (Table) 02/22/20 19:23 Gram Stain - Preliminary Sputum Sputum Culture - Preliminary 02/20/20 15:47 Blood Culture - Preliminary Blood No Growth after 48 hours 02/20/20 16:22 Blood Culture - Preliminary Blood No Growth after 48 hours
--- NOTE | 2020-02-23 12:45 | P.PN ---
Subjective Progress Note Date: 02/23/20 Principal diagnosis: Status post fall off ladder and significant trauma to chest and abdomen. This is a 69-year-old male patient who was working on his gutters when he fell off a 15 foot ladder. This was unwitnessed. He end up calling his who in turn called EMS and the patient was brought in to the emergency department. Upon arrival, the patient was hypotensive and he was in shock. The patient initial chest x-ray showed several left-sided fractures and small amount of subcutaneous air in addition to a left-sided pneumothorax. The x-ray of the pelvis showed no evidence of any fracture or dislocation. The CAT scan of the brain showed age-related atrophy and chronic small vessel ischemic changes without any acute intracranial process. CAT scan of cervical spine showed no acute abnormalities. On and has Been of the cervical spine was done and the bone and soft tissue windows showed no acute abnormalities. There was no evidence of any fracture. Along with multiple left-sided rib fractures third extending to the seventh rib. There was also spending the sedation with estimated grade 3 injury the patient. The patient's hemoglobin dropped to 10.5. The patient received a total of 2 L of IV fluid and 40 minutes of packed RBC. Morning hemoglobin today is At 13.4. The patient was taken to the operating room yesterday. The patient underwent a left-sided chest tube insertion. The patient also had splenectomy done and following that the patient was kept intubated on a mechanical ventilator and he was transferred to the intensive care unit. Note that the patient takes morphine outpatient basis and he has chronic pain and chronic narcotic requirements and on outpatient basis he takes morphine sulfate in the form of MS Contin 50 mg every 12 hours. Overnight, the patient was intubated on mechanical ventilator. He was sedated with a combination of propofol and he was also placed on morphine drip after being given several boluses control his pain. This morning, Profore is running at 70 mg per KG per minute. Morphine is running at 8 mg an hour. The patient is on normal saline at rate of 85 mL an hour. The patient has a left sided chest tube. Total amount of output is in order 110 mL of serosanguineous material without evidence of any air leak. The ventilator setting shows an assist- control mode rate of 20 with a tidal volume of 500 and FiO2 of 40% with a PEEP of 5. The patient's FiO2 is down to 40% overnight. The morning blood gases showed a pH of 7.4 with a pCO2 of 37 and pO2 of 121. The chest x-ray from this morning shows that the patient has an indwelling left-sided chest tube without any signs or pneumothorax. There is also a basilar pleural-based opacity along with multiple left-sided rib fractures and ET tube is in a good location. He is at approximately slightly swollen probably related to an infiltrated IV. He did not require any pressors. He remains hemodynamically stable. Lactic acid remains slightly elevated at 2.9 On 02/19/2020, the patient's seen for a follow-up. Earlier this morning, the patient was doing well and patient was well sedated on propofol at 70 g per KG per minute and morphine at 8 mg an hour. He was on a mechanical ventilator on assist control mode at the rate of 20 with a tidal volume of 500 and FiO2 of 40% with a PEEP of 5. His chest x-ray showed no acute abnormalities. There was no evidence of any pneumothorax. The patient left-sided chest tube in place. No evidence of any air leak. The chest x-ray showed multiple left-sided rib fractures, stable right medial basilar atelectasis, stable left basilar infiltrate/atelectasis. No other acute abdominal masses otherwise noted. As for the blood gases, the patient a pH of 7.49 with a pCO2 of 31 and pO2 of 84. The patient was hemodynamically stable on no pressors. Hemoglobin was stable at 11.6. Lactic acid level is improved. Based on this, the patient was given a sedation holiday. Initially he recovered nicely from this sedation. He was kept on morphine for pain control at a lower dose of 12 mg an hour. He was taken off the propofol. He was given as pertains breathing trial and he seemed to be quite comfortable and he was getting progressively more restless. At that point, I made decision to extubate the patient, and he was placed on oxygen by nasal cannula. The first 20-30 minutes, the patient did well post extubation. Subsequently, he became progressively more restless, agitated, he was having tremors and he was thrashing around. He was not following any commands. He became progressively more tachycardic. He went into atrial fibrillation with rapid ventricular response with a heart rate in the 180s. He became HYPERTENSIVE with systolic blood pressure went up to 200s. Based on all this, the patient was started on side effects drip for blood pressure control. I thought that the patient was withdrawing from alcohol. It's clear to me that the patient has a component of alcoholism and it was noted that the patient was intoxicated alcohol at time of admission. As such, he could have been in delirium tremens. He was given a total of 4 mg of Ativan without any major impr ovement. At that point, I decided to reintubate the patient. He was placed again on propofol and morphine drip was continued and he was intubated in the intensive care unit without any major difficulties. A triple lumen cath was also inserted. As for atrial fibrillation, the patient was started on amiodarone drip per protocol. Chest x-ray post intubation showed no acute abnormalities. She wasn't in that location. Triple lumen catheter was also in good location. NG tube was also be inserted. 02/20/2020, the patient is sedated on a mechanical ventilator. He failed extubation yesterday because of activity delirium tremens. He was restarted back on propofol running at 50, respiratory KG per minute and morphine at 6 mg an hour. He is also on normal saline at 0.9 percent at 100 mL an hour. He was running a lower blood pressure yesterday. He was given a bolus of IV fluids and a second bolus was given to him today. Both boluses are 1 L. The patient has converted back into normal sinus rhythm. Note that he was loaded with amiodarone yesterday and he was kept on amiodarone throughout the day and currently amiodarone is running at 0.5 mg per minute. A. fib RVR has recovered and the patient is back into normal sinus rhythm. He remains on a mechanical ventilator. He is an assist-control mode at the rate of 20 with a tidal volume of 500 and FiO2 40% with a PEEP of 5. A blood gas showed a pH of 7.48 with a pCO2 of 27 and pO2 of 97. The patient is afebrile. The patient has a clear abdominal wounds. The chest tube on the left is still in place without evidence of any air leak and output from the chest tube has been serosanguineous in order of 240 mL over the past 24 hours. Urine output is adequate. No other significant events overnight. On 02/21/2020 and seeing the patient for a follow-up in the intensive care unit. The patient is on a combination of propofol and morphine sulfate. Propofol is running at 55 g per KG pigmented emotional sulfate is 4 mg an hour. He is calm and comfortable. He is an assist-control mode at the rate of 20 with a tidal volume of 500 and a FiO2 of 40% with a PEEP of 5. His morning blood gases showed a pH of 7.45 with a pCO2 of 32 and pO2 129. Chest x-ray showing some limited atelectatic changes and infiltration of the lung bases. The patient's chest x-ray showed no evidence of any pneumothorax. The output from the left- sided chest tube is in the order of 10 25 mL over the past 24 hours and there is no evidence of any air leak. The patient is calm and comfortable. I'm going to give him a sedation holiday. I'm going to consider Precedex instead of propofol as an alternative sedative medication and assess the patient's underlying mental status. He is hemodynamically stable. He has required no pressors. He remains in sinus rhythm. Amiodarone is currently discontinued. Is tolerating his enteral feeding for nutritional support. 02/22/2020, the patient is being seen in follow-up. I tried to make an adjustment in the patient's sedation. I stopped the propofol yesterday and switch the patient to Precedex. I Do morphine sulfate. The patient did well for quite some time. Subsequently he became again agitated restless pulling on his tubes and it was very difficult to control his agitation. Based on that, I stopped the Precedex and put him back on propofol. Currently he is intubated on a mechanical ventilator and propofol is running at 60 mics of respiratory KG per minute and the patient is also morphine sulfate a 4 mg an hour. He is in a positive fluid balance and the patient would benefit from diuresis. He is on no pressors. Left-sided chest tube is in place and output is around 2 50 mL over the past 12 hours. There is no evidence of air leak. Chest x-ray showing bilateral pulmonary infiltrates slightly worse on the right. The patient remains on a mechanical ventilation. He is on assist-control at the rate of 20 with a tidal volume of 500 and FiO2 of 40% with a PEEP of 5. PH is at 7.4 with a pCO2 of 38 and pO2 of 100. He is taken his enteral feeding and he is receivi ng vital high protein at the rate of 30 mL an hour. No other complaints or issues for now. No fever. No chills. His blood pressure was somewhat elevated and he was briefly given Cleviprex for blood pressure control which is still running at 1 mg an hour and this will be weaned off. He remains on empiric antibiotic coverage with IV Zosyn. Repeat blood cultures came back negative. Patient was reevaluated today on 02/23/20, remains in the ICU, intubated and mechanically ventilated. His ventilator settings are assist control rate of 20 tidal volume of 500 FiO2 is 40% PEEP is 5. Peak airway pressure is 24 plateau pressure is 20. Patient remains on propofol at 70 mcg/kg/m morphine sulfate at 4 mg per hour IV fluid at KVO chest tube is at waterseal. No evidence of air leak. Chest x-ray showed slight improved aeration of the lungs at the bases bilaterally. Small bilateral pleural effusions and small areas of bibasilar opacities. Could be aspiration pneumonia related or could be atelectasis. Multiple left-sided displaced rib fractures are noted. ABG showed a pO2 of 73 pCO2 of 38 pH of 7.47 WBC count is 22.1 hemoglobin is 9.5. Basic metabolic profile is normal, renal profile is normal. Today I have suggested sedation holiday. And depending on how he does with a sedation holiday, may or may not proceed with a weaning trial. However the patient gets extremely agitated he will be back on propofol and not ready to wean. This will be decided upon depending on his clinical status off sedation. All meds were reviewed, patient remains on Zosyn for presumptive aspiration pneumonia. Objective - Vital Signs Vital signs: Vital Signs Temp 99.7 F H 02/23/20 08:00 Pulse 73 02/23/20 11:00 Resp 20 02/23/20 11:00 BP 114/62 02/23/20 11:00 Pulse Ox 95 02/23/20 11:00 Intake & Output 02/22/20 02/23/20 02/23/20 18:59 06:59 18:59 Intake Total 1458.040 557.152 656.713 Output Total 2736 523 240 Balance -1277.960 34.152 416.713 Weight 92 kg 93.2 kg Intake: IV 600 240 200 Piperacillin-Tazobactam 3 200 100 .375 gm In Sodium Chloride 0.9% 100 ml @ 25 mls/hr IVPB Q8HR [facility] Rx# :[id number] Sodium Chloride 0.9% 1, 400 240 100 000 ml @ 20 mls/hr IV . Q24H [facility] Rx#:[id number] Intake, IV Titration 318.040 197.152 271.713 Amount Morphine Sulfate (100 mg/ 107.032 2 ml) 100 mg In Sodium Chloride 0.9% 100 ml @ 2 MG/HR 2.04 mls/hr IV . Q24H [facility] Rx#:[id number] propofoL 1,000 mg In 318.040 197.152 164.681 Empty Bag 1 bag @ Titrate IV .Q0M [facility] Rx#: [id number] Tube Feeding 450 120 155 Other 90 30 Output: Chest Tube Drainage 146 78 10 Chest Tube Left Upper 146 78 10 Lateral Chest Urine 2590 445 230 Other: Voiding Method Indwelling Catheter Indwelling Catheter Indwelling Catheter ABP, PAP, CO, CI - Last Documented Arterial Blood Pressure 124/49 - Exam Physical Exam: Revealed a 69-year-old white male, sedated, mechanically ventilated, in no distress. Head: Atraumatic, normocephalic, endotracheal tube and orogastric tubes are intact. HEENT:[Neck is supple.] [No neck masses.] [No thyromegaly.] [No JVD.] PERRLA, EOMI, no icterus. Chest: Symmetrical chest expansion, crackles at the bases bilaterally, no rhonchi and no wheezes, left-sided chest tube is noted. Cardiac Exam: Distant S1 and S2, no S3 gallop. No murmur. Abdomen: [Soft, nontender, no megaly, no rebound, no guarding, normal bowel sounds.] Extremities: No clubbing, edema or cyanosis. Good pulses bilaterally. Neurological Exam: Could not be assessed, patient is sedated, on propofol and morphine sulfate. Psychiatric: Could not be assessed for the fact that the patient is sedated and maintained on propofol and morphine sulfate. Musculoskeletal: Good muscle tone, otherwise could not be assessed, no deformities. - Labs CBC & Chem 7: 02/23/20 07:00 02/23/20 07:00 Labs: Abnormal Lab Results - Last 24 Hours (Table) 02/22/20 02/22/20 02/22/20 Range/Units 12:01 17:30 18:06 WBC (3.8-10.6) k/uL RBC (4.30-5.90) m/uL Hgb (13.0-17.5) gm/dL Hct (39.0-53.0) % Neutrophils # (Manual) (1.3-7.7) k/uL Monocytes # (Manual) (0-1.0) k/uL Metamyelocytes # (Man) (0) k/uL Nucleated RBCs (0-0) /100 WBC ABG pH (7.35-7.45) ABG pO2 (83-108) mmHg ABG HCO3 (21-25) mmol/L ABG Total CO2 (19-24) mmol/L Potassium 3.4 L (3.5-5.1) mmol/L Chloride (98-107) mmol/L Creatinine (0.66-1.25) mg/dL Glucose (74-99) mg/dL POC Glucose (mg/dL) 123 H (75-99) mg/dL Calcium (8.4-10.2) mg/dL Urine Protein Trace H (Negative) Urine Ketones Trace H (Negative) 02/23/20 02/23/20 02/23/20 Range/Units 05:12 07:00 07:00 WBC 22.1 H (3.8-10.6) k/uL RBC 3.05 L (4.30-5.90) m/uL Hgb 9.5 L (13.0-17.5) gm/dL Hct 26.5 L (39.0-53.0) % Neutrophils # (Manual) 18.70 H (1.3-7.7) k/uL Monocytes # (Manual) 1.33 H (0-1.0) k/uL Metamyelocytes # (Man) 0.22 H (0) k/uL Nucleated RBCs 15 H (0-0) /100 WBC ABG pH 7.47 H (7.35-7.45) ABG pO2 73 L (83-108) mmHg ABG HCO3 28 H (21-25) mmol/L ABG Total CO2 29 H (19-24) mmol/L Potassium (3.5-5.1) mmol/L Chloride 109 H (98-107) mmol/L Creatinine 0.62 L (0.66-1.25) mg/dL Glucose 132 H (74-99) mg/dL POC Glucose (mg/dL) (75-99) mg/dL Calcium 7.9 L (8.4-10.2) mg/dL Urine Protein (Negative) Urine Ketones (Negative) 02/23/20 Range/Units 11:47 WBC (3.8-10.6) k/uL RBC (4.30-5.90) m/uL Hgb (13.0-17.5) gm/dL Hct (39.0-53.0) % Neutrophils # (Manual) (1.3-7.7) k/uL Monocytes # (Manual) (0-1.0) k/uL Metamyelocytes # (Man) (0) k/uL Nucleated RBCs (0-0) /100 WBC ABG pH (7.35-7.45) ABG pO2 (83-108) mmHg ABG HCO3 (21-25) mmol/L ABG Total CO2 (19-24) mmol/L Potassium (3.5-5.1) mmol/L Chloride (98-107) mmol/L Creatinine (0.66-1.25) mg/dL Glucose (74-99) mg/dL POC Glucose (mg/dL) 147 H (75-99) mg/dL Calcium (8.4-10.2) mg/dL Urine Protein (Negative) Urine Ketones (Negative) Microbiology - Last 24 Hours (Table) 02/22/20 19:23 Gram Stain - Preliminary Sputum Sputum Culture - Preliminary 02/20/20 15:47 Blood Culture - Preliminary Blood No Growth after 48 hours 02/20/20 16:22 Blood Culture - Preliminary Blood No Growth after 48 hours Assessment and Plan Assessment: Impression: Status post fall off a ladder with trauma to chest and abdomen. Grade 3 laceration of the spleen, post splenectomy postoperative day #6. Traumatic left-sided rib fractures with 30% pneumothorax requiring chest tube placement. Acute hemorrhagic shock on presentation. Acute blood loss anemia and patient received a total of 4 units of packed RBCs since admission. Acute hypoxic respiratory failure secondary to extreme agitation and delirium tremors requiring sedation, and detoxification, there is also possibly a component of aspiration pneumonia as noted on the chest x-ray. Chronic neck pain, patient is maintained chronically on MS Contin Coronary artery disease and previous CABG Dyslipidemia Paroxysmal atrial fibrillation presently in normal sinus rhythm. Recommendation: Continue ventilatory support Daily sedation holidays and assess mental status and weaning parameters if possible. Continue GI and DVT prophylaxis. Continue enteral feeding Continue IV Zosyn Continue chest tube in place for now, will remove chest tube once the patient is extubated. Consider PEG tube and tracheostomy if the patient does not show significant improvement in the next few days. Prognosis remains guarded. Patient remains critically ill. Critical care time is 35 minutes Time with Patient: Greater than 30
[2020-02-23] MEDS ORDERED: POTASSIUM CHLORIDE 20 MEQ in WATER FOR INJECTION 1 100ML.BAG IVPB ONE (13:24)
[2020-02-23 16:55] LABS: Glucose,Whole Blood 152 mg/dL (75-99)
--- NOTE | 2020-02-23 19:31 | P.PN ---
Subjective 69-year-old male was cleaning gutters fell from skin feet ladder was brought into emergency department found to have several left-sided fractures left-sided pneumothorax with a left-sided chest tube presently patient is presently intubated patient has multiple left-sided fractures from third to seventh rib patient also had a splenectomy for splenic injury. Patient is presently sedated with propofol and also morphine drip patient is presently on ventilatory support blood gases showed normal pH pCO2 and pO2 are within normal limits as well pat ient is presently onZosyn patient had lactic acidosis secondary tolactated Ringer's. Patient is hyperchloremic because of which probably will start him on half-normal saline. 02/19/2020 Patient is expected today and shortly after that patient didn't tolerate that and patient ended up undergoing an atrial fibrillation patient was started on amiodarone patient was subsequently reintubated. Patient is bit hyponatremic because of extensive switching the IV fluids to normal saline instead of half- normal saline. Patient is also getting amiodarone. D5 water. Patient is not requiring any pressors at this time. Please refer to intensive is documentation for further details of ventilator settings. 02/20/2020 Patient developed ongoing trial patient is having sedation vacation patient heart rate is better controlled patient overall clinical condition is bit better today 02/21/2020 Patient still in the ICU, he is intubated and sedated. Chest tube is in place and it hasn't output about 325 in 24 hours, propofol was switched to [facility] by critical care team. Pulmonary/critical care troponin measuring the event, sugar was low but most likely this is a false reading because patient is edematous. Surgical wound in the middle of the abdomen it looks clean and dry and closed. Patient is getting IV morphine. Creatinine and electrolytes are normal. Echocardiogram showing ejection fraction of 55-60% with moderate to severe mitral regurgitation His WBCs 17.3 K. Liver enzymes are trending down 02/22/2020 Patient the ICU, he could not tolerate the current sedative and he had to be placed back on the propofol, he got agitated overnight and he needed restraints. These making about 1 5200 mL of chest tube drainage every 12 hours Lasix is added. Also he had low-grade temperature and mild increase in WBC, he still on Zosyn and IV on the case. Cultures are negative so far 02/23/2020 Patient remains in the ICU, intubated and sedated on a propofol, he looks calm. Patient undergoing sedation holiday and pulmonary team managing his vent He still has low-grade fever 99.7, leukocytosis or interrupted 22K. BMP is unremarkable. Cultures are negative so far, infectious disease and pulmonary/critical care team on the case. Chest x-ray showing unchanged radiographic appearance of tubes and lines, mildly improved aeration of bilateral lung bases with persistent small bilateral pleural effusions and bibasilar air space opacity and multiple left-sided displaced rib fractures Currently he is on Zosyn Review of systems: N/a Active Medications Generic Name Dose Route Start Last Admin Trade Name Freq PRN Reason Stop Dose Admin Acetaminophen 650 mg 02/20/20 22:00 02/22/20 11:20 Tylenol Tab PO 650 mg Q6HR PRN Administration Fever and/ or Pain Atorvastatin Calcium 20 mg 02/18/20 21:00 02/22/20 20:22 Lipitor PO 20 mg HS [facility] Administration Chlorhexidine Gluconate 15 ml 02/18/20 12:00 02/23/20 08:37 Peridex MUCOUS MEM 15 ml BID [facility] Administration Enoxaparin Sodium 40 mg 02/18/20 09:00 02/23/20 08:37 Lovenox SQ 40 mg DAILY [facility] Administration Finasteride 5 mg 02/18/20 21:00 02/22/20 20:23 Proscar PO 5 mg HS [facility] Administration Piperacillin Sod/Tazobactam 100 mls @ 25 mls/hr 02/18/20 00:00 02/23/20 08:37 Sod 3.375 gm/ Sodium Chloride IVPB 25 mls/hr Q8HR [facility] Administration Morphine Sulfate 100 mg/ 102 mls @ 2.04 mls/hr 02/17/20 21:30 02/23/20 09:57 Sodium Chloride IV 2 mg/hr .Q24H [facility] 2.04 mls/hr Infusion 2 MG/HR Propofol 1,000 mg/ IV Solution 100 mls @ 0 mls/hr 02/17/20 22:45 02/23/20 09:23 IV 70 mcg/kg/min .Q0M [facility] 39.144 mls/hr Administration Protocol Titrate Sodium Chloride 1,000 mls @ 20 mls/hr 02/19/20 11:45 02/23/20 08:37 Saline 0.9% IV 20 mls/hr .Q24H [facility] Administration Clevidipine 25 mg/ IV Solution 50 mls @ 2 mls/hr 02/21/20 12:45 02/23/20 11: 59 IV Not Given .Q24H [facility] Protocol 1 MG/HR Insulin Aspart 0 unit 02/18/20 13:00 02/23/20 11:55 Novolog SQ 1 unit Q6HR [facility] Administration Protocol Miscellaneous Information 1 each 02/18/20 05:19 Magnesium Per Protocol MISCELLANE DAILY PRN Per Protocol Protocol Miscellaneous Information 1 each 02/19/20 05:38 Potassium Per Protocol MISCELLANE DAILY PRN Per Protocol Protocol Naloxone HCl 0.2 mg 02/17/20 19:37 Narcan IV Q2M PRN Opioid Reversal Ondansetron HCl 4 mg 02/17/20 19:37 Zofran IVP Q6HR PRN Nausea And Vomiting Tamsulosin HCl 0.8 mg 02/18/20 21:00 02/22/20 20:23 Flomax PO 0.8 mg HS [facility] Administration Objective - Vital Signs Vital signs: Vital Signs Temp 99.7 F H 02/23/20 08:00 Pulse 73 02/23/20 11:00 Resp 20 02/23/20 11:00 BP 114/62 02/23/20 11:00 Pulse Ox 95 02/23/20 11:00 Intake & Output 02/22/20 02/23/20 02/23/20 18:59 06:59 18:59 Intake Total 1458.040 557.152 656.713 Output Total 2736 523 240 Balance -1277.960 34.152 416.713 Weight 92 kg 93.2 kg Intake: IV 600 240 200 Piperacillin-Tazobactam 3 200 100 .375 gm In Sodium Chloride 0.9% 100 ml @ 25 mls/hr IVPB Q8HR [facility] Rx# :[id number] Sodium Chloride 0.9% 1, 400 240 100 000 ml @ 20 mls/hr IV . Q24H [facility] Rx#:[id number] Intake, IV Titration 318.040 197.152 271.713 Amount Morphine Sulfate (100 mg/ 107.032 2 ml) 100 mg In Sodium Chloride 0.9% 100 ml @ 2 MG/HR 2.04 mls/hr IV . Q24H [facility] Rx#:[id number] propofoL 1,000 mg In 318.040 197.152 164.681 Empty Bag 1 bag @ Titrate IV .Q0M [facility] Rx#: [id number] Tube Feeding 450 120 155 Other 90 30 Output: Chest Tube Drainage 146 78 10 Chest Tube Left Upper 146 78 10 Lateral Chest Urine 2590 445 230 Other: Voiding Method Indwelling Catheter Indwelling Catheter Indwelling Catheter ABP, PAP, CO, CI - Last Documented Arterial Blood Pressure 124/49 - Exam -GENERAL: The patient is intubated and sedated HEENT: Pupils are round and equally reacting to light. EOMI. No scleral icterus. No conjunctival pallor. Normocephalic, atraumatic. No pharyngeal erythema. No thyromegaly. CARDIOVASCULAR: S1 and S2 present. No murmurs, rubs, or gallops. -PULMONARY: Chest is clear to auscultation, no wheezing or crackles. Left-sided chest tube midline vertical surgical wound is clean and dry and closed -ABDOMEN: Soft, nontender, nondistended, normoactive bowel sounds. No palpable organomegaly. MUSCULOSKELETAL: No joint swelling or deformity. EXTREMITIES: No cyanosis, clubbing, or pedal edema. NEUROLOGICAL: Gross neurological examination did not reveal any focal deficits. SKIN: No rashes. no petechiae. - Labs CBC & Chem 7: 02/23/20 07:00 02/23/20 07:00 Labs: Abnormal Lab Results - Last 24 Hours (Table) 02/22/20 02/22/20 02/22/20 Range/Units 12:01 17:30 18:06 WBC (3.8-10.6) k/uL RBC (4.30-5.90) m/uL Hgb (13.0-17.5) gm/dL Hct (39.0-53.0) % Neutrophils # (Manual) (1.3-7.7) k/uL Monocytes # (Manual) (0-1.0) k/uL Metamyelocytes # (Man) (0) k/uL Nucleated RBCs (0-0) /100 WBC ABG pH (7.35-7.45) ABG pO2 (83-108) mmHg ABG HCO3 (21-25) mmol/L ABG Total CO2 (19-24) mmol/L Potassium 3.4 L (3.5-5.1) mmol/L Chloride (98-107) mmol/L Creatinine (0.66-1.25) mg/dL Glucose (74-99) mg/dL POC Glucose (mg/dL) 123 H (75-99) mg/dL Calcium (8.4-10.2) mg/dL Urine Protein Trace H (Negative) Urine Ketones Trace H (Negative) 02/23/20 02/23/20 02/23/20 Range/Units 05:12 07:00 07:00 WBC 22.1 H (3.8-10.6) k/uL RBC 3.05 L (4.30-5.90) m/uL Hgb 9.5 L (13.0-17.5) gm/dL Hct 26.5 L (39.0-53.0) % Neutrophils # (Manual) 18.70 H (1.3-7.7) k/uL Monocytes # (Manual) 1.33 H (0-1.0) k/uL Metamyelocytes # (Man) 0.22 H (0) k/uL Nucleated RBCs 15 H (0-0) /100 WBC ABG pH 7.47 H (7.35-7.45) ABG pO2 73 L (83-108) mmHg ABG HCO3 28 H (21-25) mmol/L ABG Total CO2 29 H (19-24) mmol/L Potassium (3.5-5.1) mmol/L Chloride 109 H (98-107) mmol/L Creatinine 0.62 L (0.66-1.25) mg/dL Glucose 132 H (74-99) mg/dL POC Glucose (mg/dL) (75-99) mg/dL Calcium 7.9 L (8.4-10.2) mg/dL Urine Protein (Negative) Urine Ketones (Negative) Microbiology - Last 24 Hours (Table) 02/22/20 19:23 Gram Stain - Preliminary Sputum Sputum Culture - Preliminary 02/20/20 15:47 Blood Culture - Preliminary Blood No Growth after 48 hours 02/20/20 16:22 Blood Culture - Preliminary Blood No Growth after 48 hours Assessment and Plan Assessment: - Fall from ladder with trauma to chest and abdomen with traumatic hydro- pneumothorax , status post chest tube -Splenic injury status post splenectomy patient had appropriate on him as well postoperative day 4. -Acute ventilatory dependent respiratory failure hypoxic secondary to polytrauma, pneumothorax and splenic injury, continue with the ventilatory support and wean off as tolerated. days of empiric antibiotics with Zosyn -Traumatic left-sided rib fractures, alert to 7 -hyponatremia: Secondary to half-normal saline was switched to normal saline -Hemorrhagic shock on admission which improved patient received 4 units of PRBC transfusion presently hemodynamically stable is not requiring any pressors -acute blood loss anemia from polytrauma pneumoperitoneum -history of carotid artery disease with previous bypass surgery -Hyperlipidemia -Benign prostatic hypertrophy
[2020-02-23] MEDS: QUEtiapine 50 MG TAB PO SCH (20:29)
[2020-02-23] MEDS: ATORVASTATIN 20 MG TAB PO SCH (20:29)
[2020-02-23] MEDS: FINASTERIDE 5 MG TAB PO SCH (20:29)
[2020-02-23] MEDS: TAMSULOSIN 0.4 MG CAP.ER.24H PO SCH (20:29)
--- NOTE | 2020-02-23 22:02 | PN ---
PROGRESS NOTE DATE OF SERVICE: 02/23/2020 REASON FOR FOLLOWUP: Leukocytosis and post splenectomy. INTERVAL HISTORY: The patient is currently afebrile. The patient is hemodynamically stable, not on any pressor support. FiO2 is currently stable at 40%. No significant purulent secretions in the ET have been reported. Tolerating her tube feeds. No diarrhea. PHYSICAL EXAMINATION: Blood pressure 132/58 with a pulse of 92, temperature 98.7. He is 92% on 40% FiO2. General description is an elderly male lying in bed in no distress. RESPIRATORY SYSTEM: Unlabored breathing with decreased breath sounds at the base. No wheeze. HEART: S1, S2. Regular rate and rhythm. ABDOMEN: Soft. No tenderness. LABS: Hemoglobin is 9.5, white count 2.1 with a BUN of 14, creatinine 0.62. Blood cultures and sputum so far negative. DIAGNOSTIC IMPRESSION AND PLAN: 1. Patient with a low-grade fever and elevated white count in this patient who is post ; however, fever is concerning. If any further worsening of the white count, CT of abdomen and pelvis will be requested. This was discussed with the surgical team, who advised against it. 2. Post splenectomy. He will get his vaccination on March 02. Continue with supportive care. MMODL / IJN: [id number] /
[2020-02-23 23:37] LABS: Glucose,Whole Blood 144 mg/dL (75-99)
[2020-02-24 05:57] LABS: Glucose,Whole Blood 162 mg/dL (75-99)
[2020-02-24] MEDS: INSULIN ASPART (NovoLOG) 100 UNIT/ML VIAL SQ SCH ×3 (06:58→18:11)
[2020-02-24 07:24] LABS: HCT 25.9 % (39.0-53.0); HGB 8.9 gm/dL (13.0-17.5); Hypochromasia Slight; MCH 29.8 pg (25.0-35.0); MCHC 34.3 g/dL (31.0-37.0); MCV 86.7 fL (80.0-100.0); Mean Platelet Volume 9.7; Platelet Count 410 k/uL (150-450); Poikilocytosis Slight; RBC 2.98 m/uL (4.30-5.90); RDW 15.3 % (11.5-15.5)
[2020-02-24] MEDS ORDERED: DEXMEDETOMIDINE/0.9% NACL(PMX) 400 MCG in EMPTY BAG 1 BAG IV SCH (07:30)
[2020-02-24 07:38] LABS: African American GFR (CKD) >90 (>60 ml/min/1.73 sqM); Anion Gap 4 mmol/L; Blood Urea Nitrogen 24 mg/dL (9-20); Calcium 8.3 mg/dL (8.4-10.2); Carbon Dioxide 27 mmol/L (22-30); Chloride 109 mmol/L (98-107); Glucose 135 mg/dL (74-99); Non-African American GFR(CKD) >90 (>60 ml/min/1.73 sqM); Potassium 3.7 mmol/L (3.5-5.1); Sodium 140 mmol/L (137-145)
[2020-02-24 07:42] LABS: ABG Base Excess 4.9 mmol/L; ABG HCO3 29 mmol/L (21-25); ABG Oxygen Saturation 94.5 % (94-97); ABG PCO2 39 mmHg (35-45); ABG PH 7.47 (7.35-7.45); ABG PO2 67 mmHg (83-108); ABG TCO2 30 mmol/L (19-24); Allen Test Performed? Yes
--- NOTE | 2020-02-24 08:14 | XR ---
EXAMINATION TYPE: XR chest 1V portable DATE OF EXAM: 02/24/2020 Comparison: 02/23/2020 Clinical History: 70 year-old male tube placement Findings: Median sternotomy wires are present with post-CABG changes in the mediastinum. ET and NG tubes are sa tisfactory. Left IJ CVC tip at the lower SVC. Heart remains borderline enlarged. Left-sided chest tub e in place. Multiple overlying lines and tubes limited assessment. No definite pneumothorax. Bilatera l interstitial and patchy opacities persist without significant change. Multiple left-sided rib fract ures. Impression: 1. Continued patchy pulmonary edema. 2. Multiple left-sided rib fractures. Left-sided chest tube without appreciable pneumothorax.
[2020-02-24] MEDS: PIPERACILLIN-TAZOBACTAM 3.375 GM in SODIUM CHLORIDE 0.9% 100 ML IVPB SCH ×2 (08:38→16:42)
[2020-02-24] MEDS: SODIUM CHLORIDE 0.9% 1,000 ML IV SCH (08:38)
[2020-02-24] MEDS: ENOXAPARIN 40 MG/0.4 ML SYRINGE SQ SCH (08:39)
[2020-02-24] MEDS: CHLORHEXIDINE GLUCONATE 15 ML CUP MUCOUS MEM SCH ×2 (08:39→21:21)
[2020-02-24] MEDS: QUEtiapine 50 MG TAB PO SCH ×2 (08:39→21:45)
[2020-02-24 09:05] LABS: Band Neutrophils % 2 %; Basophils # (M) 0.23 k/uL (0-0.2); Eosinophils # (M) 2.93 k/uL (0-0.7); Lymphocytes # (M) 1.13 k/uL (1.0-4.8); Metamyelocytes # (M) 0.45 k/uL (0); Metamyelocytes % 2 %; Monocytes # (M) 1.35 k/uL (0-1.0); Myelocytes # (M) 0.45 k/uL (0); Myelocytes % 2 %; Neutrophils % (M) 72 %; Nucleated Red Blood Cells 17 /100 WBC (0-0); Polychromasia Present; Total Cells Counted 200; WBC 22.5 k/uL (3.8-10.6)
[2020-02-24 09:06] LABS: Toxic Granulation Present
--- NOTE | 2020-02-24 09:14 | P.PN ---
Subjective Progress Note Date: 02/24/20 CHIEF COMPLAINT: Fall with Trauma HISTORY OF PRESENT ILLNESS: 69-year-old male who fell 15 feet off the top of the ladder. Patient's CAT scan was performed showing a large left pneumothorax as well as multiple rib fractures and hemoperitoneum and a ruptured spleen. Patient is status post splenectomy. He is on antibiotics. Patient with ventilator- dependent respiratory failure continue to undergo weaning trials. Blood cultures pending. WBC 22.5 hemoglobin 8.9 PHYSICAL EXAM: VITAL SIGNS: Reviewed. GENERAL: Well-developed in no acute distress. HEENT: No sclera icterus. Extraocular movements grossly intact. Moist buccal mucosa. Head is atraumatic, normocephalic. ABDOMEN: Soft. Nondistended. Incision site clean dry and intact NEUROLOGIC: patient is on the vent and sedated ASSESSMENT: 1. 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 2. Left-sided pneumothorax has chest tube in place 3. Multiple left-sided rib fractures 4. Alcohol intoxication 5. Acute hypoxic ventilatory dependent respiratory failure. Having difficulty with weaning 6. Chronic pain medication PLAN: -Patient may require trach and PEG if he is unable to be weaned off the vent. -Continue ICU management -Continue IV fluids -On IV antibiotics -lovenox for DVT prophylaxis Physician [employer] note has been reviewed by physician. Signing provider agrees with the documented findings, assessment, and plan of care. Objective - Vital Signs Vital signs: Vital Signs Temp 99.7 F H 02/24/20 04:00 Pulse 99 02/24/20 07:30 Resp 24 02/24/20 07:30 BP 156/72 02/24/20 07:30 Pulse Ox 96 02/24/20 07:30 Intake & Output 02/23/20 02/24/20 02/24/20 18:59 06:59 18:59 Intake Total 1371.798 460 60.440 Output Total 555 795 235 Balance 816.798 -335 -174.560 Weight 93.9 kg Intake: IV 390 240 20 Piperacillin-Tazobactam 3 150 .375 gm In Sodium Chloride 0.9% 100 ml @ 25 mls/hr IVPB Q8HR [facility] Rx# :[id number] Sodium Chloride 0.9% 1, 240 240 20 000 ml @ 20 mls/hr IV . Q24H [facility] Rx#:[id number] Intake, IV Titration 526.798 100 40.440 Amount Morphine Sulfate (100 mg/ 107.032 2 ml) 100 mg In Sodium Chloride 0.9% 100 ml @ 2 MG/HR 2.04 mls/hr IV . Q24H [facility] Rx#:[id number] propofoL 1,000 mg In 419.766 100 40.440 Empty Bag 1 bag @ Titrate IV .Q0M [facility] Rx#: [id number] Tube Feeding 365 120 Other 90 Output: Chest Tube Drainage 90 280 110 Chest Tube Left Upper 90 280 110 Lateral Chest Urine 465 515 125 Other: Voiding Method Indwelling Catheter Indwelling Catheter ABP, PAP, CO, CI - Last Documented Arterial Blood Pressure 111/102 - Labs CBC & Chem 7: 02/24/20 07:00 02/24/20 07:00 Labs: Abnormal Lab Results - Last 24 Hours (Table) 02/17/20 02/23/20 02/23/20 Range/Units 18:03 11:47 16:53 WBC (3.8-10.6) k/uL RBC (4.30-5.90) m/uL Hgb (13.0-17.5) gm/dL Hct (39.0-53.0) % Neutrophils # (Manual) (1.3-7.7) k/uL Monocytes # (Manual) (0-1.0) k/uL Eosinophils # (Manual) (0-0.7) k/uL Basophils # (Manual) (0-0.2) k/uL Metamyelocytes # (Man) (0) k/uL Myelocytes # (Manual) (0) k/uL Nucleated RBCs (0-0) /100 WBC ABG pH (7.35-7.45) ABG pO2 (83-108) mmHg ABG HCO3 (21-25) mmol/L ABG Total CO2 (19-24) mmol/L Chloride (98-107) mmol/L BUN (9-20) mg/dL Glucose (74-99) mg/dL POC Glucose (mg/dL) 147 H 152 H (75-99) mg/dL Calcium (8.4-10.2) mg/dL Crossmatch See Detail 02/23/20 02/24/20 02/24/20 Range/Units 23:36 05:55 07:00 WBC 22.5 H (3.8-10.6) k/uL RBC 2.98 L (4.30-5.90) m/uL Hgb 8.9 L (13.0-17.5) gm/dL Hct 25.9 L (39.0-53.0) % Neutrophils # (Manual) 16.60 H (1.3-7.7) k/uL Monocytes # (Manual) 1.35 H (0-1.0) k/uL Eosinophils # (Manual) 2.93 H (0-0.7) k/uL Basophils # (Manual) 0.23 H (0-0.2) k/uL Metamyelocytes # (Man) 0.45 H (0) k/uL Myelocytes # (Manual) 0.45 H (0) k/uL Nucleated RBCs 17 H (0-0) /100 WBC ABG pH (7.35-7.45) ABG pO2 (83-108) mmHg ABG HCO3 (21-25) mmol/L ABG Total CO2 (19-24) mmol/L Chloride (98-107) mmol/L BUN (9-20) mg/dL Glucose (74-99) mg/dL POC Glucose (mg/dL) 144 H 162 H (75-99) mg/dL Calcium (8.4-10.2) mg/dL Crossmatch 02/24/20 02/24/20 Range/Units 07:00 07:40 WBC (3.8-10.6) k/uL RBC (4.30-5.90) m/uL Hgb (13.0-17.5) gm/dL Hct (39.0-53.0) % Neutrophils # (Manual) (1.3-7.7) k/uL Monocytes # (Manual) (0-1.0) k/uL Eosinophils # (Manual) (0-0.7) k/uL Basophils # (Manual) (0-0.2) k/uL Metamyelocytes # (Man) (0) k/uL Myelocytes # (Manual) (0) k/uL Nucleated RBCs (0-0) /100 WBC ABG pH 7.47 H (7.35-7.45) ABG pO2 67 L (83-108) mmHg ABG HCO3 29 H (21-25) mmol/L ABG Total CO2 30 H (19-24) mmol/L Chloride 109 H (98-107) mmol/L BUN 24 H (9-20) mg/dL Glucose 135 H (74-99) mg/dL POC Glucose (mg/dL) (75-99) mg/dL Calcium 8.3 L (8.4-10.2) mg/dL Crossmatch Microbiology - Last 24 Hours (Table) 02/22/20 17:22 Blood Culture - Preliminary Blood No Growth after 24 hours 02/20/20 15:47 Blood Culture - Preliminary Blood No Growth after 72 hours 02/20/20 16:22 Blood Culture - Preliminary Blood No Growth after 72 hours
[2020-02-24] MEDS ORDERED: POTASSIUM CHLORIDE 20 MEQ in WATER FOR INJECTION 1 100ML.BAG IVPB STA ×2 (10:22→19:25)
--- NOTE | 2020-02-24 11:27 | P.PN ---
Subjective Progress Note Date: 02/24/20 Principal diagnosis: Status post fall off ladder and significant trauma to chest and abdomen. This is a 69-year-old male patient who was working on his gutters when he fell off a 15 foot ladder. This was unwitnessed. He end up calling his who in turn called EMS and the patient was brought in to the emergency department. Upon arrival, the patient was hypotensive and he was in shock. The patient initial chest x-ray showed several left-sided fractures and small amount of subcutaneous air in addition to a left-sided pneumothorax. The x-ray of the pelvis showed no evidence of any fracture or dislocation. The CAT scan of the brain showed age-related atrophy and chronic small vessel ischemic changes without any acute intracranial process. CAT scan of cervical spine showed no acute abnormalities. On and has Been of the cervical spine was done and the bone and soft tissue windows showed no acute abnormalities. There was no evidence of any fracture. Along with multiple left-sided rib fractures third extending to the seventh rib. There was also spending the sedation with estimated grade 3 injury the patient. The patient's hemoglobin dropped to 10.5. The patient received a total of 2 L of IV fluid and 40 minutes of packed RBC. Morning hemoglobin today is At 13.4. The patient was taken to the operating room yesterday. The patient underwent a left-sided chest tube insertion. The patient also had splenectomy done and following that the patient was kept intubated on a mechanical ventilator and he was transferred to the intensive care unit. Note that the patient takes morphine outpatient basis and he has chronic pain and chronic narcotic requirements and on outpatient basis he takes morphine sulfate in the form of MS Contin 50 mg every 12 hours. Overnight, the patient was intubated on mechanical ventilator. He was sedated with a combination of propofol and he was also placed on morphine drip after being given several boluses control his pain. This morning, Profore is running at 70 mg per KG per minute. Morphine is running at 8 mg an hour. The patient is on normal saline at rate of 85 mL an hour. The patient has a left sided chest tube. Total amount of output is in order 110 mL of serosanguineous material without evidence of any air leak. The ventilator setting shows an assist- control mode rate of 20 with a tidal volume of 500 and FiO2 of 40% with a PEEP of 5. The patient's FiO2 is down to 40% overnight. The morning blood gases showed a pH of 7.4 with a pCO2 of 37 and pO2 of 121. The chest x-ray from this morning shows that the patient has an indwelling left-sided chest tube without any signs or pneumothorax. There is also a basilar pleural-based opacity along with multiple left-sided rib fractures and ET tube is in a good location. He is at approximately slightly swollen probably related to an infiltrated IV. He did not require any pressors. He remains hemodynamically stable. Lactic acid remains slightly elevated at 2.9 On 02/19/2020, the patient's seen for a follow-up. Earlier this morning, the patient was doing well and patient was well sedated on propofol at 70 g per KG per minute and morphine at 8 mg an hour. He was on a mechanical ventilator on assist control mode at the rate of 20 with a tidal volume of 500 and FiO2 of 40% with a PEEP of 5. His chest x-ray showed no acute abnormalities. There was no evidence of any pneumothorax. The patient left-sided chest tube in place. No evidence of any air leak. The chest x-ray showed multiple left-sided rib fractures, stable right medial basilar atelectasis, stable left basilar infiltrate/atelectasis. No other acute abdominal masses otherwise noted. As for the blood gases, the patient a pH of 7.49 with a pCO2 of 31 and pO2 of 84. The patient was hemodynamically stable on no pressors. Hemoglobin was stable at 11.6. Lactic acid level is improved. Based on this, the patient was given a sedation holiday. Initially he recovered nicely from this sedation. He was kept on morphine for pain control at a lower dose of 12 mg an hour. He was taken off the propofol. He was given as pertains breathing trial and he seemed to be quite comfortable and he was getting progressively more restless. At that point, I made decision to extubate the patient, and he was placed on oxygen by nasal cannula. The first 20-30 minutes, the patient did well post extubation. Subsequently, he became progressively more restless, agitated, he was having tremors and he was thrashing around. He was not following any commands. He became progressively more tachycardic. He went into atrial fibrillation with rapid ventricular response with a heart rate in the 180s. He became HYPERTENSIVE with systolic blood pressure went up to 200s. Based on all this, the patient was started on side effects drip for blood pressure control. I thought that the patient was withdrawing from alcohol. It's clear to me that the patient has a component of alcoholism and it was noted that the patient was intoxicated alcohol at time of admission. As such, he could have been in delirium tremens. He was given a total of 4 mg of Ativan without any major impr ovement. At that point, I decided to reintubate the patient. He was placed again on propofol and morphine drip was continued and he was intubated in the intensive care unit without any major difficulties. A triple lumen cath was also inserted. As for atrial fibrillation, the patient was started on amiodarone drip per protocol. Chest x-ray post intubation showed no acute abnormalities. She wasn't in that location. Triple lumen catheter was also in good location. NG tube was also be inserted. 02/20/2020, the patient is sedated on a mechanical ventilator. He failed extubation yesterday because of activity delirium tremens. He was restarted back on propofol running at 50, respiratory KG per minute and morphine at 6 mg an hour. He is also on normal saline at 0.9 percent at 100 mL an hour. He was running a lower blood pressure yesterday. He was given a bolus of IV fluids and a second bolus was given to him today. Both boluses are 1 L. The patient has converted back into normal sinus rhythm. Note that he was loaded with amiodarone yesterday and he was kept on amiodarone throughout the day and currently amiodarone is running at 0.5 mg per minute. A. fib RVR has recovered and the patient is back into normal sinus rhythm. He remains on a mechanical ventilator. He is an assist-control mode at the rate of 20 with a tidal volume of 500 and FiO2 40% with a PEEP of 5. A blood gas showed a pH of 7.48 with a pCO2 of 27 and pO2 of 97. The patient is afebrile. The patient has a clear abdominal wounds. The chest tube on the left is still in place without evidence of any air leak and output from the chest tube has been serosanguineous in order of 240 mL over the past 24 hours. Urine output is adequate. No other significant events overnight. On 02/21/2020 and seeing the patient for a follow-up in the intensive care unit. The patient is on a combination of propofol and morphine sulfate. Propofol is running at 55 g per KG pigmented emotional sulfate is 4 mg an hour. He is calm and comfortable. He is an assist-control mode at the rate of 20 with a tidal volume of 500 and a FiO2 of 40% with a PEEP of 5. His morning blood gases showed a pH of 7.45 with a pCO2 of 32 and pO2 129. Chest x-ray showing some limited atelectatic changes and infiltration of the lung bases. The patient's chest x-ray showed no evidence of any pneumothorax. The output from the left- sided chest tube is in the order of 10 25 mL over the past 24 hours and there is no evidence of any air leak. The patient is calm and comfortable. I'm going to give him a sedation holiday. I'm going to consider Precedex instead of propofol as an alternative sedative medication and assess the patient's underlying mental status. He is hemodynamically stable. He has required no pressors. He remains in sinus rhythm. Amiodarone is currently discontinued. Is tolerating his enteral feeding for nutritional support. 02/22/2020, the patient is being seen in follow-up. I tried to make an adjustment in the patient's sedation. I stopped the propofol yesterday and switch the patient to Precedex. I Do morphine sulfate. The patient did well for quite some time. Subsequently he became again agitated restless pulling on his tubes and it was very difficult to control his agitation. Based on that, I stopped the Precedex and put him back on propofol. Currently he is intubated on a mechanical ventilator and propofol is running at 60 mics of respiratory KG per minute and the patient is also morphine sulfate a 4 mg an hour. He is in a positive fluid balance and the patient would benefit from diuresis. He is on no pressors. Left-sided chest tube is in place and output is around 2 50 mL over the past 12 hours. There is no evidence of air leak. Chest x-ray showing bilateral pulmonary infiltrates slightly worse on the right. The patient remains on a mechanical ventilation. He is on assist-control at the rate of 20 with a tidal volume of 500 and FiO2 of 40% with a PEEP of 5. PH is at 7.4 with a pCO2 of 38 and pO2 of 100. He is taken his enteral feeding and he is receivi ng vital high protein at the rate of 30 mL an hour. No other complaints or issues for now. No fever. No chills. His blood pressure was somewhat elevated and he was briefly given Cleviprex for blood pressure control which is still running at 1 mg an hour and this will be weaned off. He remains on empiric antibiotic coverage with IV Zosyn. Repeat blood cultures came back negative. Patient was reevaluated today on 02/23/20, remains in the ICU, intubated and mechanically ventilated. His ventilator settings are assist control rate of 20 tidal volume of 500 FiO2 is 40% PEEP is 5. Peak airway pressure is 24 plateau pressure is 20. Patient remains on propofol at 70 mcg/kg/m morphine sulfate at 4 mg per hour IV fluid at KVO chest tube is at waterseal. No evidence of air leak. Chest x-ray showed slight improved aeration of the lungs at the bases bilaterally. Small bilateral pleural effusions and small areas of bibasilar opacities. Could be aspiration pneumonia related or could be atelectasis. Multiple left-sided displaced rib fractures are noted. ABG showed a pO2 of 73 pCO2 of 38 pH of 7.47 WBC count is 22.1 hemoglobin is 9.5. Basic metabolic profile is normal, renal profile is normal. Today I have suggested sedation holiday. And depending on how he does with a sedation holiday, may or may not proceed with a weaning trial. However the patient gets extremely agitated he will be back on propofol and not ready to wean. This will be decided upon depending on his clinical status off sedation. All meds were reviewed, patient remains on Zosyn for presumptive aspiration pneumonia. Reevaluated today on 02/24/20, remains in the ICU, intubated and mechanically ventilated. Ventilator settings are assist control rate of 20 tidal volume is 500 FiO2 is 40% PEEP of 5 ABG showed a pO2 of 67 pCO2 of 39 pH of 7.47 hence his FiO2 was increased to 45%. Patient remains on morphine at 2 mg/h propofol at 45 mcg/kg/m IV fluid at KVO patient is hemodynamically stable not requiring any pressors. He is in sinus rhythm. Chest tube remains in place, and it drained 370 mL of serous drainage over the last 24 hours. Tube feeding is progressing, patient is at 50 ML per hour/goal. My plan today is to hold sedation and narcotics, will start the patient on Precedex, and I plan to give the patient at least a weaning trial on Precedex. Chest x-ray and labs were all reviewed, ches t x-ray is suggestive of bilateral infiltrates, most likely aspiration pneumonia related. His WBC count seems to be on the rise today. However no clear-cut evidence of infection. Patient remains empirically on antibiotics Objective - Vital Signs Vital signs: Vital Signs Temp 99.4 F 02/24/20 08:00 Pulse 97 02/24/20 09:30 Resp 22 02/24/20 09:30 BP 147/67 02/24/20 09:30 Pulse Ox 93 L 02/24/20 09:30 Intake & Output 02/23/20 02/24/20 02/24/20 18:59 06:59 18:59 Intake Total 1371.798 460 321.598 Output Total 555 795 585 Balance 816.798 -335 -263.402 Weight 93.9 kg Intake: IV 390 240 130 Piperacillin-Tazobactam 3 150 50 .375 gm In Sodium Chloride 0.9% 100 ml @ 25 mls/hr IVPB Q8HR [facility] Rx# :[id number] Sodium Chloride 0.9% 1, 240 240 80 000 ml @ 20 mls/hr IV . Q24H [facility] Rx#:[id number] Intake, IV Titration 526.798 100 101.598 Amount Dexmedetomidine/0.9% NaCl 9.468 (Pmx) 400 mcg In Empty Bag 1 bag @ Titrate IV . Q0M [facility] Rx#:[id number] Morphine Sulfate (100 mg/ 107.032 2 ml) 100 mg In Sodium Chloride 0.9% 100 ml @ 2 MG/HR 2.04 mls/hr IV . Q24H [facility] Rx#:[id number] Potassium Chloride 20 meq 50 In Water For Injection 1 100ml.bag @ 50 mls/hr IVPB ONCE [facility] Rx#: [id number] propofoL 1,000 mg In 419.766 100 42.130 Empty Bag 1 bag @ Titrate IV .Q0M [facility] Rx#: [id number] Tube Feeding 365 120 60 Other 90 30 Output: Chest Tube Drainage 90 280 160 Chest Tube Left Upper 90 280 160 Lateral Chest Urine 465 515 425 Other: Voiding Method Indwelling Catheter Indwelling Catheter Indwelling Catheter ABP, PAP, CO, CI - Last Documented Arterial Blood Pressure 111/102 - Exam Physical Exam: Revealed a 69-year-old white male, sedated, mechanically ventilated, in no distress. Head: Atraumatic, normocephalic, endotracheal tube and orogastric tubes are intact. HEENT:[Neck is supple.] [No neck masses.] [No thyromegaly.] [No JVD.] PERRLA, EOMI, no icterus. Chest: Symmetrical chest expansion, crackles at the bases bilaterally, no rhonchi and no wheezes, left-sided chest tube is noted. Cardiac Exam: Distant S1 and S2, no S3 gallop. No murmur. Abdomen: [Soft, nontender, no megaly, no rebound, no guarding, normal bowel so unds.] Extremities: No clubbing, edema or cyanosis. Good pulses bilaterally. Neurological Exam: Could not be assessed, patient is sedated, on propofol and morphine sulfate. Psychiatric: Could not be assessed for the fact that the patient is sedated and maintained on propofol and morphine sulfate. Musculoskeletal: Good muscle tone, otherwise could not be assessed, no deformities. - Labs CBC & Chem 7: 02/24/20 07:00 02/24/20 07:00 Labs: Abnormal Lab Results - Last 24 Hours (Table) 02/17/20 02/23/20 02/23/20 Range/Units 18:03 11:47 16:53 WBC (3.8-10.6) k/uL RBC (4.30-5.90) m/uL Hgb (13.0-17.5) gm/dL Hct (39.0-53.0) % Neutrophils # (Manual) (1.3-7.7) k/uL Monocytes # (Manual) (0-1.0) k/uL Eosinophils # (Manual) (0-0.7) k/uL Basophils # (Manual) (0-0.2) k/uL Metamyelocytes # (Man) (0) k/uL Myelocytes # (Manual) (0) k/uL Nucleated RBCs (0-0) /100 WBC ABG pH (7.35-7.45) ABG pO2 (83-108) mmHg ABG HCO3 (21-25) mmol/L ABG Total CO2 (19-24) mmol/L Chloride (98-107) mmol/L BUN (9-20) mg/dL Glucose (74-99) mg/dL POC Glucose (mg/dL) 147 H 152 H (75-99) mg/dL Calcium (8.4-10.2) mg/dL Crossmatch See Detail 02/23/20 02/24/20 02/24/20 Range/Units 23:36 05:55 07:00 WBC 22.5 H (3.8-10.6) k/uL RBC 2.98 L (4.30-5.90) m/uL Hgb 8.9 L (13.0-17.5) gm/dL Hct 25.9 L (39.0-53.0) % Neutrophils # (Manual) 16.60 H (1.3-7.7) k/uL Monocytes # (Manual) 1.35 H (0-1.0) k/uL Eosinophils # (Manual) 2.93 H (0-0.7) k/uL Basophils # (Manual) 0.23 H (0-0.2) k/uL Metamyelocytes # (Man) 0.45 H (0) k/uL Myelocytes # (Manual) 0.45 H (0) k/uL Nucleated RBCs 17 H (0-0) /100 WBC ABG pH (7.35-7.45) ABG pO2 (83-108) mmHg ABG HCO3 (21-25) mmol/L ABG Total CO2 (19-24) mmol/L Chloride (98-107) mmol/L BUN (9-20) mg/dL Glucose (74-99) mg/dL POC Glucose (mg/dL) 144 H 162 H (75-99) mg/dL Calcium (8.4-10.2) mg/dL Crossmatch 02/24/20 02/24/20 Range/Units 07:00 07:40 WBC (3.8-10.6) k/uL RBC (4.30-5.90) m/uL Hgb (13.0-17.5) gm/dL Hct (39.0-53.0) % Neutrophils # (Manual) (1.3-7.7) k/uL Monocytes # (Manual) (0-1.0) k/uL Eosinophils # (Manual) (0-0.7) k/uL Basophils # (Manual) (0-0.2) k/uL Metamyelocytes # (Man) (0) k/uL Myelocytes # (Manual) (0) k/uL Nucleated RBCs (0-0) /100 WBC ABG pH 7.47 H (7.35-7.45) ABG pO2 67 L (83-108) mmHg ABG HCO3 29 H (21-25) mmol/L ABG Total CO2 30 H (19-24) mmol/L Chloride 109 H (98-107) mmol/L BUN 24 H (9-20) mg/dL Glucose 135 H (74-99) mg/dL POC Glucose (mg/dL) (75-99) mg/dL Calcium 8.3 L (8.4-10.2) mg/dL Crossmatch Microbiology - Last 24 Hours (Table) 02/22/20 17:22 Blood Culture - Preliminary Blood No Growth after 24 hours 02/20/20 15:47 Blood Culture - Preliminary Blood No Growth after 72 hours 02/20/20 16:22 Blood Culture - Preliminary Blood No Growth after 72 hours Assessment and Plan Assessment: Impression: Status post fall off a ladder with trauma to chest and abdomen. Grade 3 laceration of the spleen, post splenectomy postoperative day #7 Traumatic left-sided rib fractures with 30% pneumothorax requiring chest tube placement. Tube continues to drain significant amount of serous fluid from the left pleural space. Acute hemorrhagic shock on presentation. Acute blood loss anemia and patient received a total of 4 units of packed RBCs since admission. Acute hypoxic respiratory failure secondary to extreme agitation and delirium tremors requiring sedation, and detoxification, there is also possibly a component of aspiration pneumonia as noted on the chest x-ray. Chronic neck pain, patient is maintained chronically on MS Contin Coronary artery disease and previous CABG Dyslipidemia Paroxysmal atrial fibrillation presently in normal sinus rhythm. Recommendation: Continue ventilatory support, however will try patient off sedation, dry Precedex, and possibly pressure support and CPAP mode of mechanical ventilation and weaning. Continue GI and DVT prophylaxis. Continue enteral feeding Continue IV Zosyn Continue chest tube in place for now Consider PEG tube and tracheostomy if the patient does not show significant improvement in the next few days. Prognosis remains guarded. Patient remains critically ill. Critical care time is 33 minutes Time with Patient: Greater than 30
[2020-02-24] MEDS: CLEVIDIPINE BUTYRATE 25 MG in EMPTY BAG 1 BAG IV SCH (11:36)
[2020-02-24 11:51] LABS: Glucose,Whole Blood 128 mg/dL (75-99)
[2020-02-24 16:22] LABS: Glucose,Whole Blood 145 mg/dL (75-99)
--- NOTE | 2020-02-24 17:35 | PN ---
PROGRESS NOTE DATE OF SERVICE 02/24/2020: REASON FOR FOLLOWUP: Leukocytosis and post splenectomy. INTERVAL HISTORY: Patient is currently afebrile. The patient is hemodynamically stable not on pressor support. FiO2 is currently at 45%. No significant purulent secretion through the ET or any diarrhea reported. PHYSICAL EXAMINATION: Blood pressure is 134/64 with a pulse of 99, temperature 99.4. He is 98% on 45% FiO2. GENERAL DESCRIPTION: Is an elderly male, lying in bed in no distress respiratory system: Unlabored breathing, decreased breath sounds, no wheeze. HEART S1, S2. Regular rate and rhythm. ABDOMEN: Soft, no tenderness. LABS: Hemoglobin 8.8, white count 2.5 with a BUN of 24, creatinine 0.73. Blood and sputum culture have been negative so far. Chest x-ray this morning with pulmonary edema, left- sided fracture. No consolidation. DIAGNOSTIC IMPRESSION AND PLAN: 1. Patient with leukocytosis, multifactorial in this patient status post splenectomy for splenic trauma. So far culture has been negative for any resistant pathogen. Fever resolved. Continue with Zosyn. 2. Post splenectomy. He will get his vaccination once of his surgery, pharmacy alerted. Continue supportive care. MMODL / IJN: [id number] /
[2020-02-24 18:03] LABS: Glucose,Whole Blood 146 mg/dL (75-99)
--- NOTE | 2020-02-24 18:36 | P.PN ---
Subjective 69-year-old male was cleaning gutters fell from skin feet ladder was brought into emergency department found to have several left-sided fractures left-sided pneumothorax with a left-sided chest tube presently patient is presently intubated patient has multiple left-sided fractures from third to seventh rib patient also had a splenectomy for splenic injury. Patient is presently sedated with propofol and also morphine drip patient is presently on ventilatory support blood gases showed normal pH pCO2 and pO2 are within normal limits as well pat ient is presently onZosyn patient had lactic acidosis secondary tolactated Ringer's. Patient is hyperchloremic because of which probably will start him on half-normal saline. 02/19/2020 Patient is expected today and shortly after that patient didn't tolerate that and patient ended up undergoing an atrial fibrillation patient was started on amiodarone patient was subsequently reintubated. Patient is bit hyponatremic because of extensive switching the IV fluids to normal saline instead of half- normal saline. Patient is also getting amiodarone. D5 water. Patient is not requiring any pressors at this time. Please refer to intensive is documentation for further details of ventilator settings. 02/20/2020 Patient developed ongoing trial patient is having sedation vacation patient heart rate is better controlled patient overall clinical condition is bit better today 02/21/2020 Patient still in the ICU, he is intubated and sedated. Chest tube is in place and it hasn't output about 325 in 24 hours, propofol was switched to [facility]ox by critical care team. Pulmonary/critical care troponin measuring the event, sugar was low but most likely this is a false reading because patient is edematous. Surgical wound in the middle of the abdomen it looks clean and dry and closed. Patient is getting IV morphine. Creatinine and electrolytes are normal. Echocardiogram showing ejection fraction of 55-60% with moderate to severe mitral regurgitation His WBCs 17.3 K. Liver enzymes are trending down 02/22/2020 Patient the ICU, he could not tolerate the current sedative and he had to be placed back on the propofol, he got agitated overnight and he needed restraints. These making about 1 5200 mL of chest tube drainage every 12 hours Lasix is added. Also he had low-grade temperature and mild increase in WBC, he still on Zosyn and IV on the case. Cultures are negative so far 02/23/2020 Patient remains in the ICU, intubated and sedated on a propofol, he looks calm. Patient undergoing sedation holiday and pulmonary team managing his vent He still has low-grade fever 99.7, leukocytosis or interrupted 22K. BMP is unremarkable. Cultures are negative so far, infectious disease and pulmonary/critical care team on the case. Chest x-ray showing unchanged radiographic appearance of tubes and lines, mildly improved aeration of bilateral lung bases with persistent small bilateral pleural effusions and bibasilar air space opacity and multiple left-sided displaced rib fractures Currently he is on Zosyn 02/24/2020 Patient still intubated and sedated, he undergoing sedation holiday and he wakes up then to be breathing trial Patient is improving on Zosyn, no fever however culture are negative. Patient is still getting intermittent feeding. Chest tube still on the left side with about 150-200 mL of discharge every 12 hour period , surgery team on the case patient may need a PEG tube and tracheostomy if he fails a voiding trial Review of systems: N/a Active Medications Generic Name Dose Route Start Last Admin Trade Name Freq PRN Reason Stop Dose Admin Acetaminophen 650 mg 02/20/20 22:00 02/22/20 11:20 Tylenol Tab PO 650 mg Q6HR PRN Administration Fever and/ or Pain Atorvastatin Calcium 20 mg 02/18/20 21:00 02/23/20 20:29 Lipitor PO 20 mg HS BETTINA Administration Chlorhexidine Gluconate 15 ml 02/18/20 12:00 02/24/20 08:39 Peridex MUCOUS MEM 15 ml BID BETTINA Administration Enoxaparin Sodium 40 mg 02/18/20 09:00 02/24/20 08:39 Lovenox SQ 40 mg DAILY BETTINA Administration Finasteride 5 mg 02/18/20 21:00 02/23/20 20:29 Proscar PO 5 mg HS BETTINA Administration Piperacillin Sod/Tazobactam 100 mls @ 25 mls/hr 02/18/20 00:00 02/24/20 16:42 Sod 3.375 gm/ Sodium Chloride IVPB 25 mls/hr Q8HR BETTINA Administration Morphine Sulfate 100 mg/ 102 mls @ 2.04 mls/hr 02/17/20 21:30 02/23/20 09:57 Sodium Chloride IV 2 mg/hr .Q24H BETTINA 2.04 mls/hr Infusion 2 MG/HR Propofol 1,000 mg/ IV Solution 100 mls @ 0 mls/hr 02/17/20 22:45 02/24/20 16:58 IV 35 mcg/kg/min .Q0M BETTINA 19.719 mls/hr Administration Protocol Titrate Sodium Chloride 1,000 mls @ 20 mls/hr 02/19/20 11:45 02/24/20 08:38 Saline 0.9% IV 20 mls/hr .Q24H BETITNA Administration Clevidipine 25 mg/ IV Solution 50 mls @ 2 mls/hr 02/21/20 12:45 02/24/20 11:36 IV Not Given .Q24H BETTINA Protocol 1 MG/HR Dexmedetomidine HCl 400 mcg/ 100 mls @ 0 mls/hr 02/24/20 07:30 02/24/20 13:44 IV Solution IV 02/25/20 07:19 0 mcg/kg/hr .Q0M BETTINA 0 mls/hr Titration Protocol Titrate Insulin Aspart 0 unit 02/18/20 13:00 02/24/20 18:11 Novolog SQ 1 unit Q6HR BETTINA Administration Protocol Miscellaneous Information 1 each 02/18/20 05:19 Magnesium Per Protocol MISCELLANE DAILY PRN Per Protocol Protocol Miscellaneous Information 1 each 02/19/20 05:38 Potassium Per Protocol MISCELLANE DAILY PRN Per Protocol Protocol Naloxone HCl 0.2 mg 02/17/20 19:37 Narcan IV Q2M PRN Opioid Reversal Quetiapine Fumarate 50 mg 02/23/20 21:00 02/24/20 08:39 Seroquel PO 50 mg BID BETTINA Administration Tamsulosin HCl 0.8 mg 02/18/20 21:00 02/23/20 20:29 Flomax PO 0.8 mg HS BETTINA Administration Objective - Vital Signs Vital signs: Vital Signs Temp 99.6 F 02/24/20 16:00 Pulse 105 H 02/24/20 17:30 Resp 26 H 02/24/20 17:30 BP 138/68 02/24/20 17:30 Pulse Ox 96 02/24/20 17:30 Intake & Output 02/23/20 02/24/20 02/24/20 18:59 06:59 18:59 Intake Total 1371.798 460 741.744 Output Total 555 795 945 Balance 816.798 -335 -203.256 Weight 93.9 kg Intake: IV 390 240 275 Piperacillin-Tazobactam 3 150 75 .375 gm In Sodium Chloride 0.9% 100 ml @ 25 mls/hr IVPB Q8HR [facility] Rx# :[id number] Sodium Chloride 0.9% 1, 240 240 200 000 ml @ 20 mls/hr IV . Q24H BETTINA Rx#:[id number] Intake, IV Titration 526.798 100 256.744 Amount Dexmedetomidine/0.9% NaCl 50.198 (Pmx) 400 mcg In Empty Bag 1 bag @ Titrate IV . Q0M BETTINA Rx#:[id number] Morphine Sulfate (100 mg/ 107.032 2 ml) 100 mg In Sodium Chloride 0.9% 100 ml @ 2 MG/HR 2.04 mls/hr IV . Q24H [facility] Rx#:[id number] Potassium Chloride 20 meq 100 In Water For Injection 1 100ml.bag @ 50 mls/hr IVPB ONCE [facility] Rx#: [id number] propofoL 1,000 mg In 419.766 100 106.546 Empty Bag 1 bag @ Titrate IV .Q0M [facility] Rx#: [id number] Tube Feeding 365 120 180 Other 90 30 Output: Chest Tube Drainage 90 280 160 Chest Tube Left Upper 90 280 160 Lateral Chest Urine 465 515 785 Other: Voiding Method Indwelling Catheter Indwelling Catheter Indwelling Catheter ABP, PAP, CO, CI - Last Documented Arterial Blood Pressure 111/102 - Exam -GENERAL: The patient is intubated and sedated HEENT: Pupils are round and equally reacting to light. EOMI. No scleral icterus. No conjunctival pallor. Normocephalic, atraumatic. No pharyngeal erythema. No thyromegaly. CARDIOVASCULAR: S1 and S2 present. No murmurs, rubs, or gallops. -PULMONARY: Chest is clear to auscultation, no wheezing or crackles. Left-sided chest tube midline vertical surgical wound is clean and dry and closed -ABDOMEN: Soft, nontender, nondistended, normoactive bowel sounds. No palpable organomegaly. MUSCULOSKELETAL: No joint swelling or deformity. EXTREMITIES: No cyanosis, clubbing, or pedal edema. NEUROLOGICAL: Gross neurological examination did not reveal any focal deficits. SKIN: No rashes. no petechiae. - Labs CBC & Chem 7: 02/24/20 07:00 02/24/20 07:00 Labs: Abnormal Lab Results - Last 24 Hours (Table) 02/17/20 02/23/20 02/24/20 Range/Units 18:03 23:36 05:55 WBC (3.8-10.6) k/uL RBC (4.30-5.90) m/uL Hgb (13.0-17.5) gm/dL Hct (39.0-53.0) % Neutrophils # (Manual) (1.3-7.7) k/uL Monocytes # (Manual) (0-1.0) k/uL Eosinophils # (Manual) (0-0.7) k/uL Basophils # (Manual) (0-0.2) k/uL Metamyelocytes # (Man) (0) k/uL Myelocytes # (Manual) (0) k/uL Nucleated RBCs (0-0) /100 WBC ABG pH (7.35-7.45) ABG pO2 (83-108) mmHg ABG HCO3 (21-25) mmol/L ABG Total CO2 (19-24) mmol/L Chloride (98-107) mmol/L BUN (9-20) mg/dL Glucose (74-99) mg/dL POC Glucose (mg/dL) 144 H 162 H (75-99) mg/dL Calcium (8.4-10.2) mg/dL Crossmatch See Detail 02/24/20 02/24/20 02/24/20 Range/Units 07:00 07:00 07:40 WBC 22.5 H (3.8-10.6) k/uL RBC 2.98 L (4.30-5.90) m/uL Hgb 8.9 L (13.0-17.5) gm/dL Hct 25.9 L (39.0-53.0) % Neutrophils # (Manual) 16.60 H (1.3-7.7) k/uL Monocytes # (Manual) 1.35 H (0-1.0) k/uL Eosinophils # (Manual) 2.93 H (0-0.7) k/uL Basophils # (Manual) 0.23 H (0-0.2) k/uL Metamyelocytes # (Man) 0.45 H (0) k/uL Myelocytes # (Manual) 0.45 H (0) k/uL Nucleated RBCs 17 H (0-0) /100 WBC ABG pH 7.47 H (7.35-7.45) ABG pO2 67 L (83-108) mmHg ABG HCO3 29 H (21-25) mmol/L ABG Total CO2 30 H (19-24) mmol/L Chloride 109 H (98-107) mmol/L BUN 24 H (9-20) mg/dL Glucose 135 H (74-99) mg/dL POC Glucose (mg/dL) (75-99) mg/dL Calcium 8.3 L (8.4-10.2) mg/dL Crossmatch 02/24/20 02/24/20 02/24/20 Range/Units 11:50 16:21 17:59 WBC (3.8-10.6) k/uL RBC (4.30-5.90) m/uL Hgb (13.0-17.5) gm/dL Hct (39.0-53.0) % Neutrophils # (Manual) (1.3-7.7) k/uL Monocytes # (Manual) (0-1.0) k/uL Eosinophils # (Manual) (0-0.7) k/uL Basophils # (Manual) (0-0.2) k/uL Metamyelocytes # (Man) (0) k/uL Myelocytes # (Manual) (0) k/uL Nucleated RBCs (0-0) /100 WBC ABG pH (7.35-7.45) ABG pO2 (83-108) mmHg ABG HCO3 (21-25) mmol/L ABG Total CO2 (19-24) mmol/L Chloride (98-107) mmol/L BUN (9-20) mg/dL Glucose (74-99) mg/dL POC Glucose (mg/dL) 128 H 145 H 146 H (75-99) mg/dL Calcium (8.4-10.2) mg/dL Crossmatch Microbiology - Last 24 Hours (Table) 02/22/20 17:22 Blood Culture - Preliminary Blood No Growth after 24 hours 02/20/20 15:47 Blood Culture - Preliminary Blood No Growth after 72 hours 02/20/20 16:22 Blood Culture - Preliminary Blood No Growth after 72 hours Assessment and Plan Assessment: - Fall from ladder with trauma to chest and abdomen with traumatic hydro- pneumothorax , status post chest tube -Splenic injury status post splenectomy patient had appropriate on him as well postoperative day 4. -Acute ventilatory dependent respiratory failure hypoxic secondary to polytrau ma, pneumothorax and splenic injury, continue with the ventilatory support and wean off as tolerated. days of empiric antibiotics with Zosyn -Traumatic left-sided rib fractures, alert to 7 -hyponatremia: Secondary to half-normal saline was switched to normal saline -Hemorrhagic shock on admission which improved patient received 4 units of PRBC transfusion presently hemodynamically stable is not requiring any pressors -acute blood loss anemia from polytrauma pneumoperitoneum -history of carotid artery disease with previous bypass surgery -Hyperlipidemia -Benign prostatic hypertrophy
[2020-02-24 19:06] LABS: ALT 80 U/L (4-49); AST 144 U/L (17-59); African American GFR (CKD) >90 (>60 ml/min/1.73 sqM); Albumin 2.3 g/dL (3.5-5.0); Alkaline Phosphatase 312 U/L (38-126); Anion Gap 5 mmol/L; Blood Urea Nitrogen 24 mg/dL (9-20); Calcium 8.4 mg/dL (8.4-10.2); Carbon Dioxide 26 mmol/L (22-30); Chloride 110 mmol/L (98-107); Glucose 131 mg/dL (74-99); Magnesium 2.1 mg/dL (1.6-2.3); Non-African American GFR(CKD) >90 (>60 ml/min/1.73 sqM); Potassium 3.8 mmol/L (3.5-5.1); Sodium 141 mmol/L (137-145); Total Bilirubin 1.6 mg/dL (0.2-1.3); Total Protein 4.6 g/dL (6.3-8.2)
[2020-02-24] MEDS ORDERED: DEXTROSE 5% IN WATER 100 ML with AMIODARONE 150 MG IV ONE (20:22)
[2020-02-24] MEDS ORDERED: AMIODARONE 360 MG in DEXTROSE 5% IN WATER 200 ML IV ONE ×2 (20:23)
[2020-02-24] MEDS: TAMSULOSIN 0.4 MG CAP.ER.24H PO SCH ×2 (21:21→22:14)
[2020-02-24] MEDS: ATORVASTATIN 20 MG TAB PO SCH (21:21)
[2020-02-24] MEDS: FINASTERIDE 5 MG TAB PO SCH (21:45)
[2020-02-24] MEDS: ACETAMINOPHEN TAB 325 MG TAB PO PRN (21:56)
[2020-02-25 00:39] LABS: Glucose,Whole Blood 143 mg/dL (75-99)
[2020-02-25] MEDS: INSULIN ASPART (NovoLOG) 100 UNIT/ML VIAL SQ SCH ×4 (00:55→18:47)
[2020-02-25] MEDS: PIPERACILLIN-TAZOBACTAM 3.375 GM in SODIUM CHLORIDE 0.9% 100 ML IVPB SCH ×3 (02:37→17:13)
[2020-02-25] MEDS: AMIODARONE 300 MG in DEXTROSE 5% IN WATER 250 ML IV SCH ×4 (02:37→13:23)
[2020-02-25] MEDS: POTASSIUM BICARBONATE/CIT AC 20 MEQ TABLET.EFF NG-TUBE SCH ×2 (02:37→04:30)
[2020-02-25] MEDS: MORPHINE SULFATE (100 MG/2 ML) 100 MG in SODIUM CHLORIDE 0.9% 100 ML IV SCH (04:47)
[2020-02-25 05:00] LABS: Glucose,Whole Blood 84 mg/dL (75-99)
[2020-02-25 06:14] LABS: African American GFR (CKD) >90 (>60 ml/min/1.73 sqM); Anion Gap 6 mmol/L; Blood Urea Nitrogen 22 mg/dL (9-20); Calcium 7.9 mg/dL (8.4-10.2); Carbon Dioxide 25 mmol/L (22-30); Chloride 110 mmol/L (98-107); Glucose 122 mg/dL (74-99); Non-African American GFR(CKD) >90 (>60 ml/min/1.73 sqM); Potassium 4.3 mmol/L (3.5-5.1); Sodium 141 mmol/L (137-145)
[2020-02-25 06:44] LABS: HCT 26.3 % (39.0-53.0); HGB 8.8 gm/dL (13.0-17.5); Hypochromasia Slight; MCH 29.7 pg (25.0-35.0); MCHC 33.5 g/dL (31.0-37.0); MCV 88.5 fL (80.0-100.0); Mean Platelet Volume 9.8; Platelet Count 521 k/uL (150-450); Poikilocytosis Slight; RBC 2.97 m/uL (4.30-5.90); RDW 15.4 % (11.5-15.5)
[2020-02-25 07:30] LABS: ABG HCO3 29 mmol/L (21-25); ABG Oxygen Saturation 93.2 % (94-97); ABG PCO2 43 mmHg (35-45); ABG PH 7.44 (7.35-7.45); ABG PO2 68 mmHg (83-108); ABG TCO2 31 mmol/L (19-24)
[2020-02-25 07:31] LABS: Allen Test Performed? no
[2020-02-25 08:10] LABS: Band Neutrophils % 3 %; Eosinophils # (M) 1.91 k/uL (0-0.7); Lymphocytes # (M) 1.34 k/uL (1.0-4.8); Metamyelocytes # (M) 0.38 k/uL (0); Metamyelocytes % 2 %; Monocytes # (M) 0.96 k/uL (0-1.0); Myelocytes # (M) 0.38 k/uL (0); Myelocytes % 2 %; Neutrophils % (M) 73 %; Nucleated Red Blood Cells 25 /100 WBC (0-0); Total Cells Counted 200; WBC 19.1 k/uL (3.8-10.6)
[2020-02-25 08:11] LABS: Anisocytosis (M) Present; Polychromasia Present
[2020-02-25] MEDS ORDERED: FUROSEMIDE 10 MG/ML 4 ML VIAL IV STA (08:23)
--- NOTE | 2020-02-25 08:30 | XR ---
EXAMINATION TYPE: XR chest 1V portable DATE OF EXAM: 02/25/2020 COMPARISON: Prior chest x-ray 02/24/2020 HISTORY: Tube placement TECHNIQUE: Single frontal view of the chest is obtained. FINDINGS: Endotracheal tube and NG tube, left chest tube, left jugular central venous catheter and p ost median sternotomy changes are again noted. Bilateral airspace disease persists. No evident pneumo thorax on the right, minimal left apical pneumothorax is suspected. Cardiac mediastinal silhouette, p ulmonary vascularity and bridgette are stable. Lung volumes are low. Posterior left rib fractures are agai n noted.e there are overlying artifacts. IMPRESSION: Findings are similar to prior exam. Correlate for pneumonia, edema, ARDS. Minimal left a pical pneumothorax.
[2020-02-25] MEDS: CHLORHEXIDINE GLUCONATE 15 ML CUP MUCOUS MEM SCH ×2 (08:47→21:25)
[2020-02-25] MEDS: QUEtiapine 50 MG TAB PO SCH ×2 (08:48→21:25)
[2020-02-25] MEDS: SODIUM CHLORIDE 0.9% 1,000 ML IV SCH (08:48)
[2020-02-25] MEDS: ENOXAPARIN 40 MG/0.4 ML SYRINGE SQ SCH (11:14)
[2020-02-25] MEDS: DOCUSATE 100 MG CAP PO SCH ×2 (11:15→21:25)
--- NOTE | 2020-02-25 12:03 | P.PN ---
Subjective Progress Note Date: 03/17/20 Principal diagnosis: Status post fall off ladder and significant trauma to chest and abdomen. This is a 69-year-old male patient who was working on his gutters when he fell off a 15 foot ladder. This was unwitnessed. He end up calling his who in turn called EMS and the patient was brought in to the emergency department. Upon arrival, the patient was hypotensive and he was in shock. The patient initial chest x-ray showed several left-sided fractures and small amount of subcutaneous air in addition to a left-sided pneumothorax. The x-ray of the pelvis showed no evidence of any fracture or dislocation. The CAT scan of the brain showed age-related atrophy and chronic small vessel ischemic changes without any acute intracranial process. CAT scan of cervical spine showed no acute abnormalities. On and has Been of the cervical spine was done and the bone and soft tissue windows showed no acute abnormalities. There was no evidence of any fracture. Along with multiple left-sided rib fractures third extending to the seventh rib. There was also spending the sedation with estimated grade 3 injury the patient. The patient's hemoglobin dropped to 10.5. The patient received a total of 2 L of IV fluid and 40 minutes of packed RBC. Morning hemoglobin today is At 13.4. The patient was taken to the operating room yesterday. The patient underwent a left-sided chest tube insertion. The patient also had splenectomy done and following that the patient was kept intubated on a mechanical ventilator and he was transferred to the intensive care unit. Note that the patient takes morphine outpatient basis and he has chronic pain and chronic narcotic requirements and on outpatient basis he takes morphine sulfate in the form of MS Contin 50 mg every 12 hours. Overnight, the patient was intubated on mechanical ventilator. He was sedated with a combination of propofol and he was also placed on morphine drip after being given several boluses control his pain. This morning, Profore is running at 70 mg per KG per minute. Morphine is running at 8 mg an hour. The patient is on normal saline at rate of 85 mL an hour. The patient has a left sided chest tube. Total amount of output is in order 110 mL of serosanguineous material without evidence of any air leak. The ventilator setting shows an assist- control mode rate of 20 with a tidal volume of 500 and FiO2 of 40% with a PEEP of 5. The patient's FiO2 is down to 40% overnight. The morning blood gases showed a pH of 7.4 with a pCO2 of 37 and pO2 of 121. The chest x-ray from this morning shows that the patient has an indwelling left-sided chest tube without any signs or pneumothorax. There is also a basilar pleural-based opacity along with multiple left-sided rib fractures and ET tube is in a good location. He is at approximately slightly swollen probably related to an infiltrated IV. He did not require any pressors. He remains hemodynamically stable. Lactic acid remains slightly elevated at 2.9 On 02/19/2020, the patient's seen for a follow-up. Earlier this morning, the patient was doing well and patient was well sedated on propofol at 70 g per KG per minute and morphine at 8 mg an hour. He was on a mechanical ventilator on assist control mode at the rate of 20 with a tidal volume of 500 and FiO2 of 40% with a PEEP of 5. His chest x-ray showed no acute abnormalities. There was no evidence of any pneumothorax. The patient left-sided chest tube in place. No evidence of any air leak. The chest x-ray showed multiple left-sided rib fractures, stable right medial basilar atelectasis, stable left basilar infiltrate/atelectasis. No other acute abdominal masses otherwise noted. As for the blood gases, the patient a pH of 7.49 with a pCO2 of 31 and pO2 of 84. The patient was hemodynamically stable on no pressors. Hemoglobin was stable at 11.6. Lactic acid level is improved. Based on this, the patient was given a sedation holiday. Initially he recovered nicely from this sedation. He was kept on morphine for pain control at a lower dose of 12 mg an hour. He was taken off the propofol. He was given as pertains breathing trial and he seemed to be quite comfortable and he was getting progressively more restless. At that point, I made decision to extubate the patient, and he was placed on oxygen by nasal cannula. The first 20-30 minutes, the patient did well post extubation. Subsequently, he became progressively more restless, agitated, he was having tremors and he was thrashing around. He was not following any commands. He became progressively more tachycardic. He went into atrial fibrillation with rapid ventricular response with a heart rate in the 180s. He became HYPERTENSIVE with systolic blood pressure went up to 200s. Based on all this, the patient was started on side effects drip for blood pressure control. I thought that the patient was withdrawing from alcohol. It's clear to me that the patient has a component of alcoholism and it was noted that the patient was intoxicated alcohol at time of admission. As such, he could have been in delirium tremens. He was given a total of 4 mg of Ativan without any major impr ovement. At that point, I decided to reintubate the patient. He was placed again on propofol and morphine drip was continued and he was intubated in the intensive care unit without any major difficulties. A triple lumen cath was also inserted. As for atrial fibrillation, the patient was started on amiodarone drip per protocol. Chest x-ray post intubation showed no acute abnormalities. She wasn't in that location. Triple lumen catheter was also in good location. NG tube was also be inserted. 02/20/2020, the patient is sedated on a mechanical ventilator. He failed extubation yesterday because of activity delirium tremens. He was restarted back on propofol running at 50, respiratory KG per minute and morphine at 6 mg an hour. He is also on normal saline at 0.9 percent at 100 mL an hour. He was running a lower blood pressure yesterday. He was given a bolus of IV fluids and a second bolus was given to him today. Both boluses are 1 L. The patient has converted back into normal sinus rhythm. Note that he was loaded with amiodarone yesterday and he was kept on amiodarone throughout the day and currently amiodarone is running at 0.5 mg per minute. A. fib RVR has recovered and the patient is back into normal sinus rhythm. He remains on a mechanical ventilator. He is an assist-control mode at the rate of 20 with a tidal volume of 500 and FiO2 40% with a PEEP of 5. A blood gas showed a pH of 7.48 with a pCO2 of 27 and pO2 of 97. The patient is afebrile. The patient has a clear abdominal wounds. The chest tube on the left is still in place without evidence of any air leak and output from the chest tube has been serosanguineous in order of 240 mL over the past 24 hours. Urine output is adequate. No other significant events overnight. On 02/21/2020 and seeing the patient for a follow-up in the intensive care unit. The patient is on a combination of propofol and morphine sulfate. Propofol is running at 55 g per KG pigmented emotional sulfate is 4 mg an hour. He is calm and comfortable. He is an assist-control mode at the rate of 20 with a tidal volume of 500 and a FiO2 of 40% with a PEEP of 5. His morning blood gases showed a pH of 7.45 with a pCO2 of 32 and pO2 129. Chest x-ray showing some limited atelectatic changes and infiltration of the lung bases. The patient's chest x-ray showed no evidence of any pneumothorax. The output from the left- sided chest tube is in the order of 10 25 mL over the past 24 hours and there is no evidence of any air leak. The patient is calm and comfortable. I'm going to give him a sedation holiday. I'm going to consider Precedex instead of propofol as an alternative sedative medication and assess the patient's underlying mental status. He is hemodynamically stable. He has required no pressors. He remains in sinus rhythm. Amiodarone is currently discontinued. Is tolerating his enteral feeding for nutritional support. 02/22/2020, the patient is being seen in follow-up. I tried to make an adjustment in the patient's sedation. I stopped the propofol yesterday and switch the patient to Precedex. I Do morphine sulfate. The patient did well for quite some time. Subsequently he became again agitated restless pulling on his tubes and it was very difficult to control his agitation. Based on that, I stopped the Precedex and put him back on propofol. Currently he is intubated on a mechanical ventilator and propofol is running at 60 mics of respiratory KG per minute and the patient is also morphine sulfate a 4 mg an hour. He is in a positive fluid balance and the patient would benefit from diuresis. He is on no pressors. Left-sided chest tube is in place and output is around 2 50 mL over the past 12 hours. There is no evidence of air leak. Chest x-ray showing bilateral pulmonary infiltrates slightly worse on the right. The patient remains on a mechanical ventilation. He is on assist-control at the rate of 20 with a tidal volume of 500 and FiO2 of 40% with a PEEP of 5. PH is at 7.4 with a pCO2 of 38 and pO2 of 100. He is taken his enteral feeding and he is receivi ng vital high protein at the rate of 30 mL an hour. No other complaints or issues for now. No fever. No chills. His blood pressure was somewhat elevated and he was briefly given Cleviprex for blood pressure control which is still running at 1 mg an hour and this will be weaned off. He remains on empiric antibiotic coverage with IV Zosyn. Repeat blood cultures came back negative. Patient was reevaluated today on 02/23/20, remains in the ICU, intubated and mechanically ventilated. His ventilator settings are assist control rate of 20 tidal volume of 500 FiO2 is 40% PEEP is 5. Peak airway pressure is 24 plateau pressure is 20. Patient remains on propofol at 70 mcg/kg/m morphine sulfate at 4 mg per hour IV fluid at KVO chest tube is at waterseal. No evidence of air leak. Chest x-ray showed slight improved aeration of the lungs at the bases bilaterally. Small bilateral pleural effusions and small areas of bibasilar opacities. Could be aspiration pneumonia related or could be atelectasis. Multiple left-sided displaced rib fractures are noted. ABG showed a pO2 of 73 pCO2 of 38 pH of 7.47 WBC count is 22.1 hemoglobin is 9.5. Basic metabolic profile is normal, renal profile is normal. Today I have suggested sedation holiday. And depending on how he does with a sedation holiday, may or may not proceed with a weaning trial. However the patient gets extremely agitated he will be back on propofol and not ready to wean. This will be decided upon depending on his clinical status off sedation. All meds were reviewed, patient remains on Zosyn for presumptive aspiration pneumonia. Reevaluated today on 02/24/20, remains in the ICU, intubated and mechanically ventilated. Ventilator settings are assist control rate of 20 tidal volume is 500 FiO2 is 40% PEEP of 5 ABG showed a pO2 of 67 pCO2 of 39 pH of 7.47 hence his FiO2 was increased to 45%. Patient remains on morphine at 2 mg/h propofol at 45 mcg/kg/m IV fluid at KVO patient is hemodynamically stable not requiring any pressors. He is in sinus rhythm. Chest tube remains in place, and it drained 370 mL of serous drainage over the last 24 hours. Tube feeding is progressing, patient is at 50 ML per hour/goal. My plan today is to hold sedation and narcotics, will start the patient on Precedex, and I plan to give the patient at least a weaning trial on Precedex. Chest x-ray and labs were all reviewed, ches t x-ray is suggestive of bilateral infiltrates, most likely aspiration pneumonia related. His WBC count seems to be on the rise today. However no clear-cut evidence of infection. Patient remains empirically on antibiotics Reevaluated today on 02/25/20, patient remains in the ICU, intubated and mec hanically ventilated. His ventilator settings are assist-control rate 20 tidal volume 500 FiO2 45% PEEP of 5 ABG showed a pO2 of 68 pCO2 of 43 pH of 7.43 patient developed atrial fibrillation with RVR last night, placed on amiodarone drip, remains on amiodarone drip at present, cardiology was consulted. Chest x- ray is showing worsening infiltrates and possibly some component of interstitial edema bilaterally. Hence one dose of Lasix was given today, and will continue to monitor the chest x-ray findings, I believe the findings are more or less related to aspiration pneumonia. Doubt congestive heart failure. Patient is on IV fluids at KVO propofol at 20 mcg/kg/m morphine sulfate 3 mg per hour. Trial of weaning has been attempted every day, however the patient gets extremely agitated of sedation, he was also agitated on Precedex when we took him off propofol and morphine. Clearly he is going to be a failure to wean, and has been so far. His was approached again today, and recommended tracheostomy and PEG tube placement. This was also discussed with the surgeon and he will discuss the procedures with the . Objective - Vital Signs Vital signs: Vital Signs Temp 99.6 F 02/25/20 08:00 Pulse 85 02/25/20 10:30 Resp 20 02/25/20 10:30 BP 133/61 02/25/20 10:30 Pulse Ox 96 02/25/20 10:30 Intake & Output 02/24/20 02/25/20 02/25/20 18:59 06:59 18:59 Intake Total 871.744 937.759 319.299 Output Total 1045 695 509 Balance -173.256 242.759 -189.701 Weight 93.9 kg Intake: IV 345 440 155 Piperacillin-Tazobactam 3 75 100 75 .375 gm In Sodium Chloride 0.9% 100 ml @ 25 mls/hr IVPB Q8HR [facility] Rx# :[id number] Potassium Chloride 20 meq 100 In Water For Injection 1 100ml.bag @ 50 mls/hr IVPB ONCE STA Rx#: [id number] Sodium Chloride 0.9% 1, 270 240 80 000 ml @ 20 mls/hr IV . Q24H [facility] Rx#:[id number] Intake, IV Titration 256.744 377.759 164.299 Amount Dexmedetomidine/0.9% NaCl 50.198 (Pmx) 400 mcg In Empty Bag 1 bag @ Titrate IV . Q0M [facility] Rx#:[id number] Morphine Sulfate (100 mg/ 87.38 7.769 2 ml) 100 mg In Sodium Chloride 0.9% 100 ml @ 2 MG/HR 2.04 mls/hr IV . Q24H [facility] Rx#:[id number] Potassium Chloride 20 meq 100 In Water For Injection 1 100ml.bag @ 50 mls/hr IVPB ONCE STA Rx#: [id number] propofoL 1,000 mg In 106.546 290.379 156.530 Empty Bag 1 bag @ Titrate IV .Q0M [facility] Rx#: [id number] Tube Feeding 240 120 Other 30 Output: Chest Tube Drainage 160 134 Chest Tube Left Upper 160 134 Lateral Chest Urine 885 695 375 Other: Voiding Method Indwelling Catheter Indwelling Catheter Indwelling Catheter ABP, PAP, CO, CI - Last Documented Arterial Blood Pressure 111/102 - Exam Physical Exam: Revealed a 69-year-old white male, sedated, mechanically keith tilated, in no distress. Head: Atraumatic, normocephalic, endotracheal tube and orogastric tubes are intact. HEENT:[Neck is supple.] [No neck masses.] [No thyromegaly.] [No JVD.] PERRLA, EOMI, no icterus. Chest: Symmetrical chest expansion, crackles at the bases bilaterally, no rhonchi and no wheezes, left-sided chest tube is noted. Cardiac Exam: Distant S1 and S2, no S3 gallop. No murmur. Abdomen: [Soft, nontender, no megaly, no rebound, no guarding, normal bowel sounds.] Extremities: No clubbing, edema or cyanosis. Good pulses bilaterally. Neurological Exam: Could not be assessed, patient is sedated, on propofol and morphine sulfate. Psychiatric: Could not be assessed for the fact that the patient is sedated and maintained on propofol and morphine sulfate. Musculoskeletal: Good muscle tone, otherwise could not be assessed, no deformities. - Labs CBC & Chem 7: 02/25/20 06:20 02/25/20 04:55 Labs: Abnormal Lab Results - Last 24 Hours (Table) 02/24/20 02/24/20 02/24/20 Range/Units 16:21 17:59 18:35 WBC (3.8-10.6) k/uL RBC (4.30-5.90) m/uL Hgb (13.0-17.5) gm/dL Hct (39.0-53.0) % Plt Count (150-450) k/uL Neutrophils # (Manual) (1.3-7.7) k/uL Eosinophils # (Manual) (0-0.7) k/uL Metamyelocytes # (Man) (0) k/uL Myelocytes # (Manual) (0) k/uL Nucleated RBCs (0-0) /100 WBC ABG pO2 (83-108) mmHg ABG HCO3 (21-25) mmol/L ABG Total CO2 (19-24) mmol/L ABG O2 Saturation (94-97) % Chloride 110 H (98-107) mmol/L BUN 24 H (9-20) mg/dL Glucose 131 H (74-99) mg/dL POC Glucose (mg/dL) 145 H 146 H (75-99) mg/dL Calcium (8.4-10.2) mg/dL Total Bilirubin 1.6 H (0.2-1.3) mg/dL AST 144 H (17-59) U/L ALT 80 H (4-49) U/L Alkaline Phosphatase 312 H (38-126) U/L Total Protein 4.6 L (6.3-8.2) g/dL Albumin 2.3 L (3.5-5.0) g/dL 02/25/20 02/25/20 02/25/20 Range/Units 00:38 04:55 06:20 WBC 19.1 H (3.8-10.6) k/uL RBC 2.97 L (4.30-5.90) m/uL Hgb 8.8 L (13.0-17.5) gm/dL Hct 26.3 L (39.0-53.0) % Plt Count 521 H (150-450) k/uL Neutrophils # (Manual) 14.50 H (1.3-7.7) k/uL Eosinophils # (Manual) 1.91 H (0-0.7) k/uL Metamyelocytes # (Man) 0.38 H (0) k/uL Myelocytes # (Manual) 0.38 H (0) k/uL Nucleated RBCs 25 H (0-0) /100 WBC ABG pO2 (83-108) mmHg ABG HCO3 (21-25) mmol/L ABG Total CO2 (19-24) mmol/L ABG O2 Saturation (94-97) % Chloride 110 H (98-107) mmol/L BUN 22 H (9-20) mg/dL Glucose 122 H (74-99) mg/dL POC Glucose (mg/dL) 143 H (75-99) mg/dL Calcium 7.9 L (8.4-10.2) mg/dL Total Bilirubin (0.2-1.3) mg/dL AST (17-59) U/L ALT (4-49) U/L Alkaline Phosphatase (38-126) U/L Total Protein (6.3-8.2) g/dL Albumin (3.5-5.0) g/dL 02/25/20 Range/Units 07:18 WBC (3.8-10.6) k/uL RBC (4.30-5.90) m/uL Hgb (13.0-17.5) gm/dL Hct (39.0-53.0) % Plt Count (150-450) k/uL Neutrophils # (Manual) (1.3-7.7) k/uL Eosinophils # (Manual) (0-0.7) k/uL Metamyelocytes # (Man) (0) k/uL Myelocytes # (Manual) (0) k/uL Nucleated RBCs (0-0) /100 WBC ABG pO2 68 L (83-108) mmHg ABG HCO3 29 H (21-25) mmol/L ABG Total CO2 31 H (19-24) mmol/L ABG O2 Saturation 93.2 L (94-97) % Chloride (98-107) mmol/L BUN (9-20) mg/dL Glucose (74-99) mg/dL POC Glucose (mg/dL) (75-99) mg/dL Calcium (8.4-10.2) mg/dL Total Bilirubin (0.2-1.3) mg/dL AST (17-59) U/L ALT (4-49) U/L Alkaline Phosphatase (38-126) U/L Total Protein (6.3-8.2) g/dL Albumin (3.5-5.0) g/dL Microbiology - Last 24 Hours (Table) 02/22/20 17:22 Blood Culture - Preliminary Blood No Growth after 48 hours 02/20/20 15:47 Blood Culture - Preliminary Blood No Growth after 96 hours 02/20/20 16:22 Blood Culture - Preliminary Blood No Growth after 96 hours Assessment and Plan Assessment: Impression: Status post fall off a ladder with trauma to chest and abdomen. Grade 3 laceration of the spleen, post splenectomy postoperative day #8 Traumatic left-sided rib fractures with 30% pneumothorax requiring chest tube placement. Tube continues to drain significant amount of serous fluid from the left pleural space. Acute hemorrhagic shock on presentation. Acute blood loss anemia and patient received a total of 4 units of packed RBCs since admission. Acute hypoxic respiratory failure secondary to extreme agitation and delirium tremors requiring sedation, and detoxification, there is also possibly a component of aspiration pneumonia as noted on the chest x-ray. Chronic neck pain, patient is maintained chronically on MS Contin Coronary artery disease and previous CABG Dyslipidemia Paroxysmal atrial fibrillation presently in normal sinus rhythm. New onset atrial fibrillation with RVR, converted with amiodarone drip. Recommendation: Continue ventilatory support, continue to have daily assessment for weaning. Failed assessment again today. Consult surgery for possible PEG tube placement and tracheostomy. Consult cardiology for his atrial fibrillation with RVR Continue GI and DVT prophylaxis. Continue enteral feeding Continue IV Zosyn Continue chest tube in place for now Prognosis remains guarded. Patient remains critically ill. Discussed his condition and updated his on his overall clinical status, and she will discuss the issue of tracheostomy and PEG tube placement with the surgeon. Prognosis remains poor and guarded Critical care time is 35. Time with Patient: Greater than 30
--- NOTE | 2020-02-25 12:38 | PN ---
PROGRESS NOTE DATE OF SERVICE: 02/25/2020 REASON FOR FOLLOWUP: 1. Leukocytosis. 2. Post splenectomy. INTERVAL HISTORY: Patient is currently afebrile. He is hemodynamically stable, not on any pressor support. FiO2 is currently stable at 45%. No significant purulent secretion through the ET or any diarrhea has been reported. On examination, blood pressure 135/64 with a pulse of 93, temperature 98.6, he is 100% on 45% O2. General description is an elderly male, intubated on the vent. RESPIRATORY SYSTEM: Unlabored breathing, decreased breath sounds at the base. No wheeze. HEART: S1, S2. Regular rate and rhythm. ABDOMEN: Soft, no tenderness. LABS: Hemoglobin is 8, white count 19.1, BUN of 22, creatinine 0.66. IMPRESSION/PLAN: 1. Patient with a fever in this patient who did have a splenic trauma, status post splenectomy; however, the patient is showing a downward trend with his hemoglobin with concern for possible abdominal hematoma responsible for this low-grade fever and elevated white count. May benefit from a CT of abdomen and pelvis to discuss further with the surgical team. 2. Patient post splenectomy. He will receive his vaccination symptomatic. 3. Continue with empiric Zosyn. Culture negative so far. at the bedside, questions were answered. MMODL / IJN: [id number] /
[2020-02-25] MEDS: CLEVIDIPINE BUTYRATE 25 MG in EMPTY BAG 1 BAG IV SCH (12:45)
[2020-02-25 12:48] LABS: Glucose,Whole Blood 128 mg/dL (75-99)
--- NOTE | 2020-02-25 13:05 | CONS ---
CONSULTATION REASON FOR CONSULTATION: Paroxysmal atrial fibrillation, CAD. This is a gentleman who was hospitalized after having had a fall from a ladder with multiple injuries including a splenic rupture as well as a pneumothorax. While he was in the hospital, he had several episodes of atrial fibrillation for which amiodarone was used episodically. Right now at the time of my evaluation, he is on a ventilator. They were trying to hold his sedation. He is a little restless, but appears to be hemodynamically stable in sinus rhythm. On reviewing the rhythm strips, there is evidence of paroxysmal episodes of atrial fibrillation. The patient is on intravenous amiodarone at 0.5 mg dose. He has a history of CAD with prior bypass surgery, details of which are not available to me at this time. He still has a chest tube which is draining. There are multiple other issues going on including possibility of some ARDS as well. From a cardiac standpoint, atrial fibrillation is certainly not unexpected in this clinical scenario with a chest tube in place and also with so many other multiple issues going on. However, the rhythm appears to be paroxysmal and he is not a good candidate to anticoagulate. We will however continue amiodarone at the same low dose of 0.5 mg for another 24 hours and then make a decision. His echo revealed good systolic function. I will try and secure the reports of his open heart surgery after talking to the family and find out where exactly this surgery was performed and how long ago. We do not have that information. However LV function on echo is good. Please refer to the detailed information provided for by other consultants and admitting physician. PAST MEDICAL HISTORY: CAD, prior bypass surgery, hyperlipidemia, and benign prostatic hypertrophy. He has chronic neck and back pain, had some cervical fusion in 2008. He is apparently not a smoker. Does not use alcohol reportedly. MEDICATIONS: At home include Proscar, Crestor, atenolol, trazodone, and also uses Cialis p.r.n. PHYSICAL EXAMINATION: Blood pressure is 128/70, pulse rate is 80, sinus. HEENT: Limited exam unremarkable. Fundus was not examined. Neck is supple. JVD 1 cm. No carotid bruit. HEART: Exam reveals S1, S2. No significant murmurs. LUNGS: Reveal bilateral ventilator assisted breath sounds with diminished air entry over bases. ABDOMEN: Soft did not do a detailed exam. Central nervous system assessment not performed. IMPRESSION: 1. Paroxysmal atrial fibrillation. 2. History of CAD, prior bypass surgery, details unavailable. 3. Fall with multiple organ injury including splenic rupture and pneumothorax. 4. On the ventilator with pneumonia, possible ARDS. RECOMMENDATION: I recommend that we continue the amiodarone drip for now at the same dose. Check details on his previous bypass surgery information. Echo revealed good systolic function. Thank you very much for the consult. MMMAYELAL / IJN: [id number] /
--- NOTE | 2020-02-25 13:35 | P.PN ---
Subjective 69-year-old male was cleaning gutters fell from skin feet ladder was brought into emergency department found to have several left-sided fractures left-sided pneumothorax with a left-sided chest tube presently patient is presently intubated patient has multiple left-sided fractures from third to seventh rib patient also had a splenectomy for splenic injury. Patient is presently sedated with propofol and also morphine drip patient is presently on ventilatory support blood gases showed normal pH pCO2 and pO2 are within normal limits as well pat ient is presently onZosyn patient had lactic acidosis secondary tolactated Ringer's. Patient is hyperchloremic because of which probably will start him on half-normal saline. 02/19/2020 Patient is expected today and shortly after that patient didn't tolerate that and patient ended up undergoing an atrial fibrillation patient was started on amiodarone patient was subsequently reintubated. Patient is bit hyponatremic because of extensive switching the IV fluids to normal saline instead of half- normal saline. Patient is also getting amiodarone. D5 water. Patient is not requiring any pressors at this time. Please refer to intensive is documentation for further details of ventilator settings. 02/20/2020 Patient developed ongoing trial patient is having sedation vacation patient heart rate is better controlled patient overall clinical condition is bit better today 02/21/2020 Patient still in the ICU, he is intubated and sedated. Chest tube is in place and it hasn't output about 325 in 24 hours, propofol was switched to Paradox by critical care team. Pulmonary/critical care troponin measuring the event, sugar was low but most likely this is a false reading because patient is edematous. Surgical wound in the middle of the abdomen it looks clean and dry and closed. Patient is getting IV morphine. Creatinine and electrolytes are normal. Echocardiogram showing ejection fraction of 55-60% with moderate to severe mitral regurgitation His WBCs 17.3 K. Liver enzymes are trending down 02/22/2020 Patient the ICU, he could not tolerate the current sedative and he had to be placed back on the propofol, he got agitated overnight and he needed restraints. These making about 1 5200 mL of chest tube drainage every 12 hours Lasix is added. Also he had low-grade temperature and mild increase in WBC, he still on Zosyn and IV on the case. Cultures are negative so far 02/23/2020 Patient remains in the ICU, intubated and sedated on a propofol, he looks calm. Patient undergoing sedation holiday and pulmonary team managing his vent He still has low-grade fever 99.7, leukocytosis or interrupted 22K. BMP is unremarkable. Cultures are negative so far, infectious disease and pulmonary/critical care team on the case. Chest x-ray showing unchanged radiographic appearance of tubes and lines, mildly improved aeration of bilateral lung bases with persistent small bilateral pleural effusions and bibasilar air space opacity and multiple left-sided displaced rib fractures Currently he is on Zosyn 02/24/2020 Patient still intubated and sedated, he undergoing sedation holiday and he wakes up then to be breathing trial Patient is improving on Zosyn, no fever however culture are negative. Patient is still getting intermittent feeding. Chest tube still on the left side with about 150-200 mL of discharge every 12 hour period , surgery team on the case patient may need a PEG tube and tracheostomy if he fails a voiding trial 02/24 Patient remains in the ICU intubated and sedated, despite being on Precedex. Today he developed A. fib with RVR, he has history of A. fib. before, he Is currently not on anticoagulation other than DVT prophylaxis with Lovenox due to his hematoma. Patient was started on amiodarone drip, his rate is controlled, is controlled. Computed tomography scan of the abdomen is requested to assess his hematoma. He still has fever at 100.1 Hemoglobin is 8.8, which is stable compared to yesterday. PH normal 7.4 with normal pCO2 at 43 and low pO2 at 68, BMP is unremarkable and sugar is controlled. Surgical team were consulted for possible PEG and tracheostomy Prognosis remains very guarded. Review of systems: N/a Active Medications Generic Name Dose Route Start Last Admin Trade Name Freq PRN Reason Stop Dose Admin Acetaminophen 650 mg 02/20/20 22:00 02/24/20 21:56 Tylenol Tab PO 650 mg Q6HR PRN Administration Fever and/ or Pain Atorvastatin Calcium 20 mg 02/18/20 21:00 02/24/20 21:21 Lipitor PO 20 mg HS BETTINA Administration Chlorhexidine Gluconate 15 ml 02/18/20 12:00 02/25/20 08:47 Peridex MUCOUS MEM 15 ml BID BETTINA Administration Docusate Sodium 100 mg 02/25/20 09:00 02/25/20 11:15 Colace PO Not Given BID BETTINA Enoxaparin Sodium 40 mg 02/18/20 09:00 02/25/20 11:14 Lovenox SQ 40 mg DAILY BETTINA Administration Finasteride 5 mg 02/18/20 21:00 02/24/20 21:45 Proscar PO 5 mg HS BETTINA Administration Piperacillin Sod/Tazobactam 100 mls @ 25 mls/hr 02/18/20 00:00 02/25/20 08:47 Sod 3.375 gm/ Sodium Chloride IVPB 25 mls/hr Q8HR BETTINA Administration Morphine Sulfate 100 mg/ 102 mls @ 2.04 mls/hr 02/17/20 21:30 02/25/20 08:45 Sodium Chloride IV 2 mg/hr .Q24H BETTINA 2.04 mls/hr Infusion 2 MG/HR Propofol 1,000 mg/ IV Solution 100 mls @ 0 mls/hr 02/17/20 22:45 02/25/20 11:14 IV 40 mcg/kg/min .Q0M BETTINA 22.536 mls/hr Administration Protocol Titrate Sodium Chloride 1,000 mls @ 20 mls/hr 02/19/20 11:45 02/25/20 08:48 Saline 0.9% IV 20 mls/hr .Q24H BETTINA Administration Clevidipine 25 mg/ IV Solution 50 mls @ 2 mls/hr 02/21/20 12:45 02/25/20 12:45 IV Not Given .Q24H BETTINA Protocol 1 MG/HR Amiodarone HCl 300 mg/ 250 mls @ 25 mls/hr 02/25/20 02:22 02/25/20 13:23 Dextrose/Water IV 02/25/20 20:21 0.5 mg/min .Q10H BETTINA 25 mls/hr Administration Protocol 0.5 MG/MIN Insulin Aspart 0 unit 02/18/20 13:00 02/25/20 12:49 Novolog SQ Not Given Q6HR BETTINA Protocol Miscellaneous Information 1 each 02/18/20 05:19 Magnesium Per Protocol MISCELLANE DAILY PRN Per Protocol Protocol Miscellaneous Information 1 each 02/19/20 05:38 Potassium Per Protocol MISCELLANE DAILY PRN Per Protocol Protocol Naloxone HCl 0.2 mg 02/17/20 19:37 Narcan IV Q2M PRN Opioid Reversal Quetiapine Fumarate 50 mg 02/23/20 21:00 02/25/20 08:48 Seroquel PO 50 mg BID [facility] Administration Tamsulosin HCl 0.8 mg 02/18/20 21:00 02/24/20 22:14 Flomax PO Not Given [facility] Objective - Vital Signs Vital signs: Vital Signs Temp 99.2 F 02/25/20 12:00 Pulse 84 02/25/20 12:00 Resp 21 02/25/20 12:00 BP 132/63 02/25/20 12:00 Pulse Ox 98 02/25/20 12:00 Intake & Output 02/24/20 02/25/20 02/25/20 18:59 06:59 18:59 Intake Total 871.744 937.759 609.299 Output Total 7120 761 7583 Balance -173.256 242.759 -464.701 Weight 93.9 kg Intake: IV 345 440 195 Piperacillin-Tazobactam 3 75 100 75 .375 gm In Sodium Chloride 0.9% 100 ml @ 25 mls/hr IVPB Q8HR BETTINA Rx# :[id number] Potassium Chloride 20 meq 100 In Water For Injection 1 100ml.bag @ 50 mls/hr IVPB ONCE STA Rx#: [id number] Sodium Chloride 0.9% 1, 270 240 120 000 ml @ 20 mls/hr IV . Q24H BETTINA Rx#:[id number] Intake, IV Titration 256.744 377.759 414.299 Amount Amiodarone 300 mg In 250 Dextrose 5% in Water 250 ml @ 0.5 MG/MIN 25 mls/hr IV .Q10H BETTINA Rx#: [id number] Dexmedetomidine/0.9% NaCl 50.198 (Pmx) 400 mcg In Empty Bag 1 bag @ Titrate IV . Q0M BETTINA Rx#:[id number] Morphine Sulfate (100 mg/ 87.38 7.769 2 ml) 100 mg In Sodium Chloride 0.9% 100 ml @ 2 MG/HR 2.04 mls/hr IV . Q24H BETTINA Rx#:[id number] Potassium Chloride 20 meq 100 In Water For Injection 1 100ml.bag @ 50 mls/hr IVPB ONCE STA Rx#: [id number] propofoL 1,000 mg In 106.546 290.379 156.530 Empty Bag 1 bag @ Titrate IV .Q0M [facility] Rx#: [id number] Tube Feeding 240 120 Other 30 Output: Chest Tube Drainage 160 224 Chest Tube Left Upper 160 224 Lateral Chest Urine 885 695 850 Other: Voiding Method Indwelling Catheter Indwelling Catheter Indwelling Catheter ABP, PAP, CO, CI - Last Documented Arterial Blood Pressure 111/102 - Exam -GENERAL: The patient is intubated and sedated HEENT: Pupils are round and equally reacting to light. EOMI. No scleral icterus. No conjunctival pallor. Normocephalic, atraumatic. No pharyngeal erythema. No thyromegaly. CARDIOVASCULAR: S1 and S2 present. No murmurs, rubs, or gallops. -PULMONARY: Chest is clear to auscultation, no wheezing or crackles. Left-sided chest tube midline vertical surgical wound is clean and dry and closed -ABDOMEN: Soft, nontender, nondistended, normoactive bowel sounds. No palpable organomegaly. MUSCULOSKELETAL: No joint swelling or deformity. EXTREMITIES: No cyanosis, clubbing, or pedal edema. NEUROLOGICAL: Gross neurological examination did not reveal any focal deficits. SKIN: No rashes. no petechiae. - Labs CBC & Chem 7: 02/25/20 06:20 02/25/20 04:55 Labs: Abnormal Lab Results - Last 24 Hours (Table) 02/24/20 02/24/20 02/24/20 Range/Units 16:21 17:59 18:35 WBC (3.8-10.6) k/uL RBC (4.30-5.90) m/uL Hgb (13.0-17.5) gm/dL Hct (39.0-53.0) % Plt Count (150-450) k/uL Neutrophils # (Manual) (1.3-7.7) k/uL Eosinophils # (Manual) (0-0.7) k/uL Metamyelocytes # (Man) (0) k/uL Myelocytes # (Manual) (0) k/uL Nucleated RBCs (0-0) /100 WBC ABG pO2 (83-108) mmHg ABG HCO3 (21-25) mmol/L ABG Total CO2 (19-24) mmol/L ABG O2 Saturation (94-97) % Chloride 110 H (98-107) mmol/L BUN 24 H (9-20) mg/dL Glucose 131 H (74-99) mg/dL POC Glucose (mg/dL) 145 H 146 H (75-99) mg/dL Calcium (8.4-10.2) mg/dL Total Bilirubin 1.6 H (0.2-1.3) mg/dL AST 144 H (17-59) U/L ALT 80 H (4-49) U/L Alkaline Phosphatase 312 H (38-126) U/L Total Protein 4.6 L (6.3-8.2) g/dL Albumin 2.3 L (3.5-5.0) g/dL 02/25/20 02/25/20 02/25/20 Range/Units 00:38 04:55 06:20 WBC 19.1 H (3.8-10.6) k/uL RBC 2.97 L (4.30-5.90) m/uL Hgb 8.8 L (13.0-17.5) gm/dL Hct 26.3 L (39.0-53.0) % Plt Count 521 H (150-450) k/uL Neutrophils # (Manual) 14.50 H (1.3-7.7) k/uL Eosinophils # (Manual) 1.91 H (0-0.7) k/uL Metamyelocytes # (Man) 0.38 H (0) k/uL Myelocytes # (Manual) 0.38 H (0) k/uL Nucleated RBCs 25 H (0-0) /100 WBC ABG pO2 (83-108) mmHg ABG HCO3 (21-25) mmol/L ABG Total CO2 (19-24) mmol/L ABG O2 Saturation (94-97) % Chloride 110 H (98-107) mmol/L BUN 22 H (9-20) mg/dL Glucose 122 H (74-99) mg/dL POC Glucose (mg/dL) 143 H (75-99) mg/dL Calcium 7.9 L (8.4-10.2) mg/dL Total Bilirubin (0.2-1.3) mg/dL AST (17-59) U/L ALT (4-49) U/L Alkaline Phosphatase (38-126) U/L Total Protein (6.3-8.2) g/dL Albumin (3.5-5.0) g/dL 02/25/20 02/25/20 Range/Units 07:18 12:47 WBC (3.8-10.6) k/uL RBC (4.30-5.90) m/uL Hgb (13.0-17.5) gm/dL Hct (39.0-53.0) % Plt Count (150-450) k/uL Neutrophils # (Manual) (1.3-7.7) k/uL Eosinophils # (Manual) (0-0.7) k/uL Metamyelocytes # (Man) (0) k/uL Myelocytes # (Manual) (0) k/uL Nucleated RBCs (0-0) /100 WBC ABG pO2 68 L (83-108) mmHg ABG HCO3 29 H (21-25) mmol/L ABG Total CO2 31 H (19-24) mmol/L ABG O2 Saturation 93.2 L (94-97) % Chloride (98-107) mmol/L BUN (9-20) mg/dL Glucose (74-99) mg/dL POC Glucose (mg/dL) 128 H (75-99) mg/dL Calcium (8.4-10.2) mg/dL Total Bilirubin (0.2-1.3) mg/dL AST (17-59) U/L ALT (4-49) U/L Alkaline Phosphatase (38-126) U/L Total Protein (6.3-8.2) g/dL Albumin (3.5-5.0) g/dL Microbiology - Last 24 Hours (Table) 02/22/20 19:23 Gram Stain - Final Sputum Sputum Culture - Final Selina krusei Selina albicans 02/22/20 17:22 Blood Culture - Preliminary Blood No Growth after 48 hours 02/20/20 15:47 Blood Culture - Preliminary Blood No Growth after 96 hours 02/20/20 16:22 Blood Culture - Preliminary Blood No Growth after 96 hours Assessment and Plan Assessment: - Fall from ladder with trauma to chest and abdomen with traumatic hydro- pneumothorax , status post chest tube -Splenic injury status post splenectomy patient had appropriate on him as well postoperative day 7. -Acute ventilatory dependent respiratory failure hypoxic secondary to polytrauma, pneumothorax and splenic injury, continue with the ventilatory support and wean off as tolerated. days of empiric antibiotics with Zosyn -A. fib with RVR -Traumatic left-sided rib fractures, alert to 7 -hyponatremia: Secondary to half-normal saline was switched to normal saline -Hemorrhagic shock on admission which improved patient received 4 units of PRBC transfusion presently hemodynamically stable is not requiring any pressors -acute blood loss anemia from polytrauma pneumoperitoneum -history of carotid artery disease with previous bypass surgery -Hyperlipidemia -Benign prostatic hypertrophy
[2020-02-25] MEDS ORDERED: VECURONIUM 10 MG VIAL IV ONE (15:24)
[2020-02-25] MEDS ORDERED: LIDOCAINE 1% INJ 10MG/ML (20 ML MDV) SQ ONE (15:48)
[2020-02-25] MEDS ORDERED: SODIUM CHLORIDE 0.9% 900 ML IV ONE (15:49)
--- NOTE | 2020-02-25 16:13 | P.OP ---
Date of Procedure: 02/25/20 Preoperative Diagnosis: Respiratory failure Malnutrition Postoperative Diagnosis: Respiratory failure Malnutrition Procedure(s) Performed: Tracheostomy EGD Anesthesia: JEANNA Surgeon: Russell Ivy Estimated Blood Loss (ml): 20 Pathology: none sent Condition: stable Disposition: PACU Description of Procedure: The patient's placed on the operating table in the supine position. He received general anesthesia. His neck was prepped and draped using sterile fashion. A standard [place] incision was made approximately 2 cm above the sternal notch. Using cautery the skin and subcutaneous tissues were divided the platysma was divided. The strap muscles were divided in the midline. We'll entered. The wound. The trachea was exposed. A tracheotomy was then performed between the second third tracheal rings. The anterior 2 was brought back and the #8 mm cuffed tracheal tube was placed into the trachea. The balloon was inflated. End tidal CO2 was confirmed. The skin was closed with 3- 0 nylon suture. The trachea ties were secured. Next the gastro-/oropharynx and passed into the esophagus and stomach. Scope was then placed through the pylorus and the first and second portion of duodenum appeared normal. Scope was then brought back into the stomach. Stomach was insufflated and a suitable light reflux was attempted to be seen on the anterior abdominal wall. No significant light reflux could be seen. Several attempts were made to pass the 25-gauge localizing needle into the stomach however this impossible. This point the gastroscope was withdrawn. The PEG tube portion of the procedure was canceled. Patient top she will well and sent back to the ICU in stable condition.
--- NOTE | 2020-02-25 17:28 | XR ---
EXAMINATION TYPE: XR chest 1V confirm line [facility] DATE OF EXAM: 02/25/2020 COMPARISON: Today HISTORY: Check line placement TECHNIQUE: Single view FINDINGS: There is nasogastric tube looped in the stomach. There is a left-sided chest tube over the left lower lobe. There is patchy bilateral infiltrates. There is stent in the trachea. IMPRESSION: Nasogastric tube is looped on itself in the gastric fundus. Bilateral pulmonary infiltrat es unchanged compared to exam this morning.
[2020-02-25 18:41] LABS: Glucose,Whole Blood 129 mg/dL (75-99)
[2020-02-25] MEDS: TAMSULOSIN 0.4 MG CAP.ER.24H PO SCH (20:26)
[2020-02-25] MEDS: ACETAMINOPHEN TAB 325 MG TAB PO PRN (21:24)
[2020-02-25] MEDS: ATORVASTATIN 20 MG TAB PO SCH (21:25)
[2020-02-25] MEDS: FINASTERIDE 5 MG TAB PO SCH (21:25)
[2020-02-26] MEDS: PIPERACILLIN-TAZOBACTAM 3.375 GM in SODIUM CHLORIDE 0.9% 100 ML IVPB SCH ×3 (01:04→16:17)
[2020-02-26 01:26] LABS: Glucose,Whole Blood 112 mg/dL (75-99)
[2020-02-26] MEDS ORDERED: AMIODARONE 300 MG in DEXTROSE 5% IN WATER 250 ML IV SCH ×2 (02:00)
[2020-02-26] MEDS: INSULIN ASPART (NovoLOG) 100 UNIT/ML VIAL SQ SCH ×4 (02:03→18:23)
[2020-02-26 05:38] LABS: African American GFR (CKD) >90 (>60 ml/min/1.73 sqM); Anion Gap 4 mmol/L; Blood Urea Nitrogen 24 mg/dL (9-20); Calcium 7.8 mg/dL (8.4-10.2); Carbon Dioxide 25 mmol/L (22-30); Chloride 111 mmol/L (98-107); Glucose 121 mg/dL (74-99); Non-African American GFR(CKD) >90 (>60 ml/min/1.73 sqM); Potassium 3.4 mmol/L (3.5-5.1); Sodium 140 mmol/L (137-145)
[2020-02-26 05:39] LABS: HCT 23.9 % (39.0-53.0); HGB 7.9 gm/dL (13.0-17.5); Hypochromasia Moderate; MCH 29.4 pg (25.0-35.0); MCV 89.2 fL (80.0-100.0); Platelet Count 508 k/uL (150-450); Poikilocytosis Slight; RBC 2.68 m/uL (4.30-5.90); RDW 15.6 % (11.5-15.5)
[2020-02-26 06:05] LABS: Band Neutrophils % 18 %; Eosinophils # (M) 1.35 k/uL (0-0.7); Lymphocytes # (M) 0.34 k/uL (1.0-4.8); Metamyelocytes # (M) 0.85 k/uL (0); Metamyelocytes % 5 %; Monocytes # (M) 1.18 k/uL (0-1.0); Neutrophils % (M) 60 %; Nucleated Red Blood Cells 14 /100 WBC (0-0); Total Cells Counted 200; WBC 16.9 k/uL (3.8-10.6)
[2020-02-26 06:06] LABS: Anisocytosis (M) Present; Poikilocytosis (M) Present; Polychromasia Present
[2020-02-26] MEDS ORDERED: POTASSIUM BICARBONATE/CIT AC 20 MEQ TABLET.EFF NG-TUBE SCH (07:00)
[2020-02-26 07:25] LABS: ABG Base Excess 4.3 mmol/L; ABG HCO3 28 mmol/L (21-25); ABG Oxygen Saturation 94.3 % (94-97); ABG PCO2 39 mmHg (35-45); ABG PH 7.46 (7.35-7.45); ABG PO2 71 mmHg (83-108); ABG TCO2 29 mmol/L (19-24)
[2020-02-26 07:29] LABS: Allen Test Performed? no
--- NOTE | 2020-02-26 07:56 | XR ---
EXAMINATION TYPE: XR chest 1V portable DATE OF EXAM: 02/26/2020 COMPARISON: 02/25/2020 HISTORY: SOB, Follow Up FINDINGS: Indwelling tubes and catheters are unchanged. Scattered airspace infiltrates remain unchanged. Stable appearance of the cardio-mediastinal structures at this time. Pleural effusion unchanged. IMPRESSION: 1. Stable portable chest. Clinical correlation and follow up until resolution is recommended.
[2020-02-26] MEDS ORDERED: DOCUSATE ORAL SOLN 100 MG/10 ML CUP PO PRN (08:07)
[2020-02-26] MEDS: CHLORHEXIDINE GLUCONATE 15 ML CUP MUCOUS MEM SCH ×2 (09:12→21:09)
[2020-02-26] MEDS: POTASSIUM BICARBONATE/CIT AC 20 MEQ TABLET.EFF NG-TUBE SCH ×2 (09:12→10:09)
[2020-02-26] MEDS: QUEtiapine 50 MG TAB PO SCH ×2 (09:12→21:10)
[2020-02-26] MEDS: DOCUSATE ORAL SOLN 100 MG/10 ML CUP PO SCH ×2 (09:13→21:09)
[2020-02-26] MEDS ORDERED: AMIODARONE 200 MG TAB PO SCH (09:15)
[2020-02-26] MEDS ORDERED: DILTIAZEM DRIP BOLUS FROM BAG 1 MG SOLN IV ONE (09:49)
[2020-02-26] MEDS: DILTIAZEM 125 MG in SODIUM CHLORIDE 0.9% 100 ML IV SCH ×2 (10:10→18:23)
--- NOTE | 2020-02-26 10:58 | PN ---
PROGRESS NOTE Mr. Boyer is a gentleman with history of CAD and came in with a fall and had a splenic rupture. He is on a vent. He remains in sinus rhythm this morning, but he is going in and out of atrial fibrillation. He is on amiodarone drip which I will discontinue and switch him to 200 mg amiodarone through the NG tube. If he goes into atrial fibrillation, we will use Cardizem if necessary. However, he has been loaded with intravenous amiodarone. Will switch him to oral 200 mg b.i.d. through the NG tube, hemodynamically stable. Patient is well sedated, S1-S2 heard normally, short systolic murmur noted. Lungs reveal a ventilator-assisted breath sounds. Abdomen exam deferred. Prognosis remains guarded. MMODL / IJN: [id number] /
[2020-02-26] MEDS: ENOXAPARIN 40 MG/0.4 ML SYRINGE SQ SCH (11:26)
[2020-02-26] MEDS: SODIUM CHLORIDE 0.9% 1,000 ML IV SCH (11:27)
--- NOTE | 2020-02-26 11:32 | P.PN ---
Subjective Progress Note Date: 02/26/20 Principal diagnosis: Status post fall off ladder and significant trauma to chest and abdomen. This is a 69-year-old male patient who was working on his gutters when he fell off a 15 foot ladder. This was unwitnessed. He end up calling his who in turn called EMS and the patient was brought in to the emergency department. Upon arrival, the patient was hypotensive and he was in shock. The patient initial chest x-ray showed several left-sided fractures and small amount of subcutaneous air in addition to a left-sided pneumothorax. The x-ray of the pelvis showed no evidence of any fracture or dislocation. The CAT scan of the brain showed age-related atrophy and chronic small vessel ischemic changes without any acute intracranial process. CAT scan of cervical spine showed no acute abnormalities. On and has Been of the cervical spine was done and the bone and soft tissue windows showed no acute abnormalities. There was no evidence of any fracture. Along with multiple left-sided rib fractures third extending to the seventh rib. There was also spending the sedation with estimated grade 3 injury the patient. The patient's hemoglobin dropped to 10.5. The patient received a total of 2 L of IV fluid and 40 minutes of packed RBC. Morning hemoglobin today is At 13.4. The patient was taken to the operating room yesterday. The patient underwent a left-sided chest tube insertion. The patient also had splenectomy done and following that the patient was kept intubated on a mechanical ventilator and he was transferred to the intensive care unit. Note that the patient takes morphine outpatient basis and he has chronic pain and chronic narcotic requirements and on outpatient basis he takes morphine sulfate in the form of MS Contin 50 mg every 12 hours. Overnight, the patient was intubated on mechanical ventilator. He was sedated with a combination of propofol and he was also placed on morphine drip after being given several boluses control his pain. This morning, Profore is running at 70 mg per KG per minute. Morphine is running at 8 mg an hour. The patient is on normal saline at rate of 85 mL an hour. The patient has a left sided chest tube. Total amount of output is in order 110 mL of serosanguineous material without evidence of any air leak. The ventilator setting shows an assist- control mode rate of 20 with a tidal volume of 500 and FiO2 of 40% with a PEEP of 5. The patient's FiO2 is down to 40% overnight. The morning blood gases showed a pH of 7.4 with a pCO2 of 37 and pO2 of 121. The chest x-ray from this morning shows that the patient has an indwelling left-sided chest tube without any signs or pneumothorax. There is also a basilar pleural-based opacity along with multiple left-sided rib fractures and ET tube is in a good location. He is at approximately slightly swollen probably related to an infiltrated IV. He did not require any pressors. He remains hemodynamically stable. Lactic acid remains slightly elevated at 2.9 On 02/19/2020, the patient's seen for a follow-up. Earlier this morning, the patient was doing well and patient was well sedated on propofol at 70 g per KG per minute and morphine at 8 mg an hour. He was on a mechanical ventilator on assist control mode at the rate of 20 with a tidal volume of 500 and FiO2 of 40% with a PEEP of 5. His chest x-ray showed no acute abnormalities. There was no evidence of any pneumothorax. The patient left-sided chest tube in place. No evidence of any air leak. The chest x-ray showed multiple left-sided rib fractures, stable right medial basilar atelectasis, stable left basilar infiltrate/atelectasis. No other acute abdominal masses otherwise noted. As for the blood gases, the patient a pH of 7.49 with a pCO2 of 31 and pO2 of 84. The patient was hemodynamically stable on no pressors. Hemoglobin was stable at 11.6. Lactic acid level is improved. Based on this, the patient was given a sedation holiday. Initially he recovered nicely from this sedation. He was kept on morphine for pain control at a lower dose of 12 mg an hour. He was taken off the propofol. He was given as pertains breathing trial and he seemed to be quite comfortable and he was getting progressively more restless. At that point, I made decision to extubate the patient, and he was placed on oxygen by nasal cannula. The first 20-30 minutes, the patient did well post extubation. Subsequently, he became progressively more restless, agitated, he was having tremors and he was thrashing around. He was not following any commands. He became progressively more tachycardic. He went into atrial fibrillation with rapid ventricular response with a heart rate in the 180s. He became HYPERTENSIVE with systolic blood pressure went up to 200s. Based on all this, the patient was started on side effects drip for blood pressure control. I thought that the patient was withdrawing from alcohol. It's clear to me that the patient has a component of alcoholism and it was noted that the patient was intoxicated alcohol at time of admission. As such, he could have been in delirium tremens. He was given a total of 4 mg of Ativan without any major impr ovement. At that point, I decided to reintubate the patient. He was placed again on propofol and morphine drip was continued and he was intubated in the intensive care unit without any major difficulties. A triple lumen cath was also inserted. As for atrial fibrillation, the patient was started on amiodarone drip per protocol. Chest x-ray post intubation showed no acute abnormalities. She wasn't in that location. Triple lumen catheter was also in good location. NG tube was also be inserted. 02/20/2020, the patient is sedated on a mechanical ventilator. He failed extubation yesterday because of activity delirium tremens. He was restarted back on propofol running at 50, respiratory KG per minute and morphine at 6 mg an hour. He is also on normal saline at 0.9 percent at 100 mL an hour. He was running a lower blood pressure yesterday. He was given a bolus of IV fluids and a second bolus was given to him today. Both boluses are 1 L. The patient has converted back into normal sinus rhythm. Note that he was loaded with amiodarone yesterday and he was kept on amiodarone throughout the day and currently amiodarone is running at 0.5 mg per minute. A. fib RVR has recovered and the patient is back into normal sinus rhythm. He remains on a mechanical ventilator. He is an assist-control mode at the rate of 20 with a tidal volume of 500 and FiO2 40% with a PEEP of 5. A blood gas showed a pH of 7.48 with a pCO2 of 27 and pO2 of 97. The patient is afebrile. The patient has a clear abdominal wounds. The chest tube on the left is still in place without evidence of any air leak and output from the chest tube has been serosanguineous in order of 240 mL over the past 24 hours. Urine output is adequate. No other significant events overnight. On 02/21/2020 and seeing the patient for a follow-up in the intensive care unit. The patient is on a combination of propofol and morphine sulfate. Propofol is running at 55 g per KG pigmented emotional sulfate is 4 mg an hour. He is calm and comfortable. He is an assist-control mode at the rate of 20 with a tidal volume of 500 and a FiO2 of 40% with a PEEP of 5. His morning blood gases showed a pH of 7.45 with a pCO2 of 32 and pO2 129. Chest x-ray showing some limited atelectatic changes and infiltration of the lung bases. The patient's chest x-ray showed no evidence of any pneumothorax. The output from the left- sided chest tube is in the order of 10 25 mL over the past 24 hours and there is no evidence of any air leak. The patient is calm and comfortable. I'm going to give him a sedation holiday. I'm going to consider Precedex instead of propofol as an alternative sedative medication and assess the patient's underlying mental status. He is hemodynamically stable. He has required no pressors. He remains in sinus rhythm. Amiodarone is currently discontinued. Is tolerating his enteral feeding for nutritional support. 02/22/2020, the patient is being seen in follow-up. I tried to make an adjustment in the patient's sedation. I stopped the propofol yesterday and switch the patient to Precedex. I Do morphine sulfate. The patient did well for quite some time. Subsequently he became again agitated restless pulling on his tubes and it was very difficult to control his agitation. Based on that, I stopped the Precedex and put him back on propofol. Currently he is intubated on a mechanical ventilator and propofol is running at 60 mics of respiratory KG per minute and the patient is also morphine sulfate a 4 mg an hour. He is in a positive fluid balance and the patient would benefit from diuresis. He is on no pressors. Left-sided chest tube is in place and output is around 2 50 mL over the past 12 hours. There is no evidence of air leak. Chest x-ray showing bilateral pulmonary infiltrates slightly worse on the right. The patient remains on a mechanical ventilation. He is on assist-control at the rate of 20 with a tidal volume of 500 and FiO2 of 40% with a PEEP of 5. PH is at 7.4 with a pCO2 of 38 and pO2 of 100. He is taken his enteral feeding and he is receivi ng vital high protein at the rate of 30 mL an hour. No other complaints or issues for now. No fever. No chills. His blood pressure was somewhat elevated and he was briefly given Cleviprex for blood pressure control which is still running at 1 mg an hour and this will be weaned off. He remains on empiric antibiotic coverage with IV Zosyn. Repeat blood cultures came back negative. Patient was reevaluated today on 02/23/20, remains in the ICU, intubated and mechanically ventilated. His ventilator settings are assist control rate of 20 tidal volume of 500 FiO2 is 40% PEEP is 5. Peak airway pressure is 24 plateau pressure is 20. Patient remains on propofol at 70 mcg/kg/m morphine sulfate at 4 mg per hour IV fluid at KVO chest tube is at waterseal. No evidence of air leak. Chest x-ray showed slight improved aeration of the lungs at the bases bilaterally. Small bilateral pleural effusions and small areas of bibasilar opacities. Could be aspiration pneumonia related or could be atelectasis. Multiple left-sided displaced rib fractures are noted. ABG showed a pO2 of 73 pCO2 of 38 pH of 7.47 WBC count is 22.1 hemoglobin is 9.5. Basic metabolic profile is normal, renal profile is normal. Today I have suggested sedation holiday. And depending on how he does with a sedation holiday, may or may not proceed with a weaning trial. However the patient gets extremely agitated he will be back on propofol and not ready to wean. This will be decided upon depending on his clinical status off sedation. All meds were reviewed, patient remains on Zosyn for presumptive aspiration pneumonia. Reevaluated today on 02/24/20, remains in the ICU, intubated and mechanically ventilated. Ventilator settings are assist control rate of 20 tidal volume is 500 FiO2 is 40% PEEP of 5 ABG showed a pO2 of 67 pCO2 of 39 pH of 7.47 hence his FiO2 was increased to 45%. Patient remains on morphine at 2 mg/h propofol at 45 mcg/kg/m IV fluid at KVO patient is hemodynamically stable not requiring any pressors. He is in sinus rhythm. Chest tube remains in place, and it drained 370 mL of serous drainage over the last 24 hours. Tube feeding is progressing, patient is at 50 ML per hour/goal. My plan today is to hold sedation and narcotics, will start the patient on Precedex, and I plan to give the patient at least a weaning trial on Precedex. Chest x-ray and labs were all reviewed, ches t x-ray is suggestive of bilateral infiltrates, most likely aspiration pneumonia related. His WBC count seems to be on the rise today. However no clear-cut evidence of infection. Patient remains empirically on antibiotics Reevaluated today on 02/25/20, patient remains in the ICU, intubated and mec hanically ventilated. His ventilator settings are assist-control rate 20 tidal volume 500 FiO2 45% PEEP of 5 ABG showed a pO2 of 68 pCO2 of 43 pH of 7.43 patient developed atrial fibrillation with RVR last night, placed on amiodarone drip, remains on amiodarone drip at present, cardiology was consulted. Chest x- ray is showing worsening infiltrates and possibly some component of interstitial edema bilaterally. Hence one dose of Lasix was given today, and will continue to monitor the chest x-ray findings, I believe the findings are more or less related to aspiration pneumonia. Doubt congestive heart failure. Patient is on IV fluids at KVO propofol at 20 mcg/kg/m morphine sulfate 3 mg per hour. Trial of weaning has been attempted every day, however the patient gets extremely agitated of sedation, he was also agitated on Precedex when we took him off propofol and morphine. Clearly he is going to be a failure to wean, and has been so far. His was approached again today, and recommended tracheostomy and PEG tube placement. This was also discussed with the surgeon and he will discuss the procedures with the . Reevaluated today on 03/24/20, patient remains in the ICU, on mechanical ventilation, he is status post tracheostomy, postoperative day #1. Patient is on assist control rate of 20 tidal volume is 500 FiO2 45% PEEP of 5 ABG showed a pO2 of 71 pCO2 of 39 pH of 7.46. Remains on morphine sulfate which I cut it down to 1 mg/h, he is now temporarily off propofol to assess his mental status, and his IV amiodarone was switched to oral amiodarone to be given via na sogastric tube. Chest x-ray continues to show bilateral infiltrates, right more so than left, suspect underlying aspiration pneumonia, remains on Zosyn. Patient is sedated, slightly agitated, opens eyes to verbal stimuli, but does not follow any verbal instructions. Patient had good urine output over the last 24 hours, and he is in a negative fluid balance. Left-sided chest tube drained about 150 mL over the last 24 hours. The fluid is mostly serosanguineous. Patient may have a PEG tube placement today, in the meantime he continues to have an orogastric tube in place. Patient is hemodynamically stable, remains in sinus rhythm. Objective - Vital Signs Vital signs: Vital Signs Temp 101.7 F H 02/26/20 08:30 Pulse 122 H 02/26/20 11:00 Resp 22 02/26/20 11:00 BP 137/84 02/26/20 11:00 Pulse Ox 92 L 02/26/20 11:00 Intake & Output 02/25/20 02/26/20 02/26/20 18:59 06:59 18:59 Intake Total 989.299 570 494.975 Output Total 1544 740 440 Balance -554.701 -170 54.975 Weight 93.9 kg 90.1 kg Intake: IV 475 340 200 Piperacillin-Tazobactam 3 75 100 100 .375 gm In Sodium Chloride 0.9% 100 ml @ 25 mls/hr IVPB Q8HR [facility] Rx# :[id number] Sodium Chloride 0.9% 1, 200 240 100 000 ml @ 20 mls/hr IV . Q24H [facility] Rx#:[id number] Intake, IV Titration 514.299 200 179.975 Amount Amiodarone 300 mg In 250 Dextrose 5% in Water 250 ml @ 0.5 MG/MIN 25 mls/hr IV .Q10H [facility] Rx#: [id number] Diltiazem 125 mg In 17.5 Sodium Chloride 0.9% 100 ml @ Per Protocol IV .Q0M [facility] Rx#:[id number] Morphine Sulfate (100 mg/ 7.769 50.762 2 ml) 100 mg In Sodium Chloride 0.9% 100 ml @ 2 MG/HR 2.04 mls/hr IV . Q24H [facility] Rx#:[id number] propofoL 1,000 mg In 256.530 200 111.713 Empty Bag 1 bag @ Titrate IV .Q0M [facility] Rx#: [id number] Oral 100 Tube Feeding 30 15 Output: Chest Tube Drainage 314 0 Chest Tube Left Upper 314 0 Lateral Chest Urine 1225 740 440 Estimated Blood Loss 5 Other: Voiding Method Indwelling Catheter Indwelling Catheter Indwelling Catheter ABP, PAP, CO, CI - Last Documented Arterial Blood Pressure 111/102 - Exam Physical Exam: Revealed a 69-year-old white male, sedated, mechanically ventilated, in no distress. Head: Atraumatic, normocephalic, tracheostomy is intact, and orogastric tube is in place. HEENT:[Neck is supple.] [No neck masses.] [No thyromegaly.] [No JVD.] PERRLA, EOMI, no icterus. Chest: Symmetrical chest expansion, crackles and rhonchi bilaterally.. Left sided chest tube is noted. Cardiac Exam: Distant S1 and S2, no S3 gallop. No murmur. Abdomen: [Soft, nontender, no megaly, no rebound, no guarding, normal bowel sounds.] Extremities: No clubbing, edema or cyanosis. Good pulses bilaterally. Neurological Exam: Pupils are equally reactive to light, patient opens eyes to verbal stimuli, does not follow any instructions, keep shaking his head Psychiatric: Could not be assessed Musculoskeletal: Good muscle tone, otherwise could not be assessed, no deformities. - Labs CBC & Chem 7: 02/26/20 05:00 02/26/20 05:00 Labs: Abnormal Lab Results - Last 24 Hours (Table) 02/25/20 02/25/20 02/26/20 Range/Units 12:47 18:40 01:25 WBC (3.8-10.6) k/uL RBC (4.30-5.90) m/uL Hgb (13.0-17.5) gm/dL Hct (39.0-53.0) % RDW (11.5-15.5) % Plt Count (150-450) k/uL Neutrophils # (Manual) (1.3-7.7) k/uL Lymphocytes # (Manual) (1.0-4.8) k/uL Monocytes # (Manual) (0-1.0) k/uL Eosinophils # (Manual) (0-0.7) k/uL Metamyelocytes # (Man) (0) k/uL Nucleated RBCs (0-0) /100 WBC ABG pH (7.35-7.45) ABG pO2 (83-108) mmHg ABG HCO3 (21-25) mmol/L ABG Total CO2 (19-24) mmol/L Potassium (3.5-5.1) mmol/L Chloride (98-107) mmol/L BUN (9-20) mg/dL Glucose (74-99) mg/dL POC Glucose (mg/dL) 128 H 129 H 112 H (75-99) mg/dL Calcium (8.4-10.2) mg/dL 02/26/20 02/26/20 02/26/20 Range/Units 05:00 05:00 07:10 WBC 16.9 H (3.8-10.6) k/uL RBC 2.68 L (4.30-5.90) m/uL Hgb 7.9 L (13.0-17.5) gm/dL Hct 23.9 L (39.0-53.0) % RDW 15.6 H (11.5-15.5) % Plt Count 508 H (150-450) k/uL Neutrophils # (Manual) 13.10 H (1.3-7.7) k/uL Lymphocytes # (Manual) 0.34 L (1.0-4.8) k/uL Monocytes # (Manual) 1.18 H (0-1.0) k/uL Eosinophils # (Manual) 1.35 H (0-0.7) k/uL Metamyelocytes # (Man) 0.85 H (0) k/uL Nucleated RBCs 14 H (0-0) /100 WBC ABG pH 7.46 H (7.35-7.45) ABG pO2 71 L (83-108) mmHg ABG HCO3 28 H (21-25) mmol/L ABG Total CO2 29 H (19-24) mmol/L Potassium 3.4 L (3.5-5.1) mmol/L Chloride 111 H (98-107) mmol/L BUN 24 H (9-20) mg/dL Glucose 121 H (74-99) mg/dL POC Glucose (mg/dL) (75-99) mg/dL Calcium 7.8 L (8.4-10.2) mg/dL Microbiology - Last 24 Hours (Table) 02/22/20 17:22 Blood Culture - Preliminary Blood No Growth after 72 hours 02/20/20 15:47 Blood Culture - Preliminary Blood No Growth after 120 hours 02/20/20 16:22 Blood Culture - Preliminary Blood No Growth after 120 hours 02/22/20 19:23 Gram Stain - Final Sputum Sputum Culture - Final Selina krusei Selina albicans Assessment and Plan Assessment: Impression: Status post fall off a ladder with trauma to chest and abdomen. Grade 3 laceration of the spleen, post splenectomy postoperative day #9 Traumatic left-sided rib fractures with 30% pneumothorax requiring chest tube placement. No air leak, 1 50 mL of fluid drainage over the last 24 hours. Acute hemorrhagic shock on presentation. Acute blood loss anemia and patient received a total of 4 units of packed RBCs since admission. Acute hypoxic respiratory failure secondary to extreme agitation and delirium tremors requiring sedation, and detoxification, there is also possibly a component of aspiration pneumonia as noted on the chest x-ray. Chronic neck pain, patient is maintained chronically on MS Contin Coronary artery disease and previous CABG Dyslipidemia Paroxysmal atrial fibrillation presently in normal sinus rhythm. New onset atrial fibrillation with RVR, converted with amiodarone drip. Failure to wean, status post tracheostomy on 02/25/20. Recommendation: Continue ventilatory support, hold sedation today and assess for weaning PEG tube placement, hopefully today. PICC line placement hopefully today. Switch IV amiodarone to oral amiodarone. Continue GI and DVT prophylaxis. Continue enteral feeding Continue IV Zosyn Continue chest tube in place for now Prognosis remains guarded. Patient remains critically ill. Critical care time is 31 minutes. Time with Patient: Greater than 30
[2020-02-26 11:44] LABS: Glucose,Whole Blood 129 mg/dL (75-99)
[2020-02-26] MEDS ORDERED: LIDOCAINE 1% INJ 10MG/ML (20 ML MDV) SQ ONE (14:24)
--- NOTE | 2020-02-26 14:33 | P.PN ---
Subjective 69-year-old male was cleaning gutters fell from skin feet ladder was brought into emergency department found to have several left-sided fractures left-sided pneumothorax with a left-sided chest tube presently patient is presently intubated patient has multiple left-sided fractures from third to seventh rib patient also had a splenectomy for splenic injury. Patient is presently sedated with propofol and also morphine drip patient is presently on ventilatory support blood gases showed normal pH pCO2 and pO2 are within normal limits as well pat ient is presently onZosyn patient had lactic acidosis secondary tolactated Ringer's. Patient is hyperchloremic because of which probably will start him on half-normal saline. 02/19/2020 Patient is expected today and shortly after that patient didn't tolerate that and patient ended up undergoing an atrial fibrillation patient was started on amiodarone patient was subsequently reintubated. Patient is bit hyponatremic because of extensive switching the IV fluids to normal saline instead of half- normal saline. Patient is also getting amiodarone. D5 water. Patient is not requiring any pressors at this time. Please refer to intensive is documentation for further details of ventilator settings. 02/20/2020 Patient developed ongoing trial patient is having sedation vacation patient heart rate is better controlled patient overall clinical condition is bit better today 02/21/2020 Patient still in the ICU, he is intubated and sedated. Chest tube is in place and it hasn't output about 325 in 24 hours, propofol was switched to Paradox by critical care team. Pulmonary/critical care troponin measuring the event, sugar was low but most likely this is a false reading because patient is edematous. Surgical wound in the middle of the abdomen it looks clean and dry and closed. Patient is getting IV morphine. Creatinine and electrolytes are normal. Echocardiogram showing ejection fraction of 55-60% with moderate to severe mitral regurgitation His WBCs 17.3 K. Liver enzymes are trending down 02/22/2020 Patient the ICU, he could not tolerate the current sedative and he had to be placed back on the propofol, he got agitated overnight and he needed restraints. These making about 1 5200 mL of chest tube drainage every 12 hours Lasix is added. Also he had low-grade temperature and mild increase in WBC, he still on Zosyn and IV on the case. Cultures are negative so far 02/23/2020 Patient remains in the ICU, intubated and sedated on a propofol, he looks calm. Patient undergoing sedation holiday and pulmonary team managing his vent He still has low-grade fever 99.7, leukocytosis or interrupted 22K. BMP is unremarkable. Cultures are negative so far, infectious disease and pulmonary/critical care team on the case. Chest x-ray showing unchanged radiographic appearance of tubes and lines, mildly improved aeration of bilateral lung bases with persistent small bilateral pleural effusions and bibasilar air space opacity and multiple left-sided displaced rib fractures Currently he is on Zosyn 02/24/2020 Patient still intubated and sedated, he undergoing sedation holiday and he wakes up then to be breathing trial Patient is improving on Zosyn, no fever however culture are negative. Patient is still getting intermittent feeding. Chest tube still on the left side with about 150-200 mL of discharge every 12 hour period , surgery team on the case patient may need a PEG tube and tracheostomy if he fails a voiding trial 02/24 Patient remains in the ICU intubated and sedated, despite being on Precedex. Today he developed A. fib with RVR, he has history of A. fib. before, he Is currently not on anticoagulation other than DVT prophylaxis with Lovenox due to his hematoma. Patient was started on amiodarone drip, his rate is controlled, is controlled. Computed tomography scan of the abdomen is requested to assess his hematoma. He still has fever at 100.1 Hemoglobin is 8.8, which is stable compared to yesterday. PH normal 7.4 with normal pCO2 at 43 and low pO2 at 68, BMP is unremarkable and sugar is controlled. Surgical team were consulted for possible PEG and tracheostomy Prognosis remains very guarded. 02/26/20 Patient still on ventilation, he got tracheostomy yesterday and hysterectomy that well. Sedation is off however patient is restless and agitated, however patient does not follow, He developed another atrial fibrillation with rapid rate and he was started on amiodarone drip at 0.5. Cardizem may be added as well. Cardiology of the case Surgery team are following the patient for possible PEG placement. Possibly today. Patient remains on Zosyn, amiodarone, which can be switched to oral per Dictating Machine Typist and Cardizem as needed Review of systems: N/a Active Medications Generic Name Dose Route Start Last Admin Trade Name Freq PRN Reason Stop Dose Admin Acetaminophen 650 mg 08/28/20 22:00 02/25/20 21:24 Tylenol Tab PO 650 mg Q6HR PRN Administration Fever and/ or Pain Atorvastatin Calcium 20 mg 02/18/20 21:00 02/25/20 21:25 Lipitor PO 20 mg HS BETTINA Administration Chlorhexidine Gluconate 15 ml 02/18/20 12:00 02/26/20 09:12 Peridex MUCOUS MEM 15 ml BID BETTINA Administration Docusate Sodium 100 mg 02/26/20 09:00 02/26/20 09:13 Colace Oral Soln PO 100 mg BID BETTINA Administration Enoxaparin Sodium 40 mg 02/18/20 09:00 02/26/20 11:26 Lovenox SQ 40 mg DAILY BETTINA Administration Finasteride 5 mg 02/18/20 21:00 02/25/20 21:25 Proscar PO 5 mg HS BETTINA Administration Piperacillin Sod/Tazobactam 100 mls @ 25 mls/hr 02/18/20 00:00 02/26/20 09:11 Sod 3.375 gm/ Sodium Chloride IVPB 25 mls/hr Q8HR BETTINA Administration Morphine Sulfate 100 mg/ 102 mls @ 2.04 mls/hr 02/17/20 21:30 02/26/20 10:06 Sodium Chloride IV 2 mg/hr .Q24H BETTINA 2.04 mls/hr Infusion 2 MG/HR Propofol 1,000 mg/ IV Solution 100 mls @ 0 mls/hr 02/17/20 22:45 02/26/20 09:10 IV 0 mcg/kg/min .Q0M BETTINA 0 mls/hr Titration Protocol Titrate Sodium Chloride 1,000 mls @ 20 mls/hr 02/19/20 11:45 02/26/20 11:27 Saline 0.9% IV 20 mls/hr .Q24H BETTINA Administration Clevidipine 25 mg/ IV Solution 50 mls @ 2 mls/hr 02/21/20 12:45 02/25/20 12:45 IV Not Given .Q24H BETTINA Protocol 1 MG/HR Diltiazem HCl 125 mg/ Sodium 125 mls @ 0 mls/hr 02/26/20 10:00 02/26/20 10:10 Chloride IV 7.5 mg/hr .Q0M BETTINA 7.5 mls/hr Administration Protocol Per Protocol Insulin Aspart 0 unit 02/18/20 13:00 02/26/20 06:02 Novolog SQ Not Given Q6HR [facility] Protocol Miscellaneous Information 1 each 02/18/20 05:19 Magnesium Per Protocol MISCELLANE DAILY PRN Per Protocol Protocol Miscellaneous Information 1 each 02/19/20 05:38 Potassium Per Protocol MISCELLANE DAILY PRN Per Protocol Protocol Naloxone HCl 0.2 mg 02/17/20 19:37 Narcan IV Q2M PRN Opioid Reversal Quetiapine Fumarate 50 mg 02/23/20 21:00 02/26/20 09:12 Seroquel PO 50 mg BID BETTINA Administration Tamsulosin HCl 0.8 mg 02/18/20 21:00 02/25/20 20:26 Flomax PO Not Given [facility] Objective - Vital Signs Vital signs: Vital Signs Temp 100.7 F H 02/26/20 12:00 Pulse 125 H 02/26/20 13:30 Resp 18 02/26/20 14:00 BP 142/83 02/26/20 14:00 Pulse Ox 94 L 02/26/20 14:00 Intake & Output 02/25/20 02/26/20 02/26/20 18:59 06:59 18:59 Intake Total 989.299 570 637.475 Output Total 1544 740 620 Balance -554.701 -170 17.475 Weight 93.9 kg 90.1 kg Intake: IV 475 340 260 Piperacillin-Tazobactam 3 75 100 100 .375 gm In Sodium Chloride 0.9% 100 ml @ 25 mls/hr IVPB Q8HR BETTINA Rx# :[id number] Sodium Chloride 0.9% 1, 200 240 160 000 ml @ 20 mls/hr IV . Q24H BETTINA Rx#:[id number] Intake, IV Titration 514.299 200 202.475 Amount Amiodarone 300 mg In 250 Dextrose 5% in Water 250 ml @ 0.5 MG/MIN 25 mls/hr IV .Q10H BETTINA Rx#: [id number] Diltiazem 125 mg In 40.0 Sodium Chloride 0.9% 100 ml @ Per Protocol IV .Q0M BETTINA Rx#:[id number] Morphine Sulfate (100 mg/ 7.769 50.762 2 ml) 100 mg In Sodium Chloride 0.9% 100 ml @ 2 MG/HR 2.04 mls/hr IV . Q24H BETTINA Rx#:[id number] propofoL 1,000 mg In 256.530 200 111.713 Empty Bag 1 bag @ Titrate IV .Q0M BETTINA Rx#: [id number] Oral 100 Tube Feeding 30 75 Output: Chest Tube Drainage 314 0 Chest Tube Left Upper 314 0 Lateral Chest Urine 1225 740 620 Estimated Blood Loss 5 Other: Voiding Method Indwelling Catheter Indwelling Catheter Indwelling Catheter ABP, PAP, CO, CI - Last Documented Arterial Blood Pressure 111/102 - Exam -GENERAL: The patient is intubated and sedated HEENT: Pupils are round and equally reacting to light. EOMI. No scleral icterus. No conjunctival pallor. Normocephalic, atraumatic. No pharyngeal erythema. No thyromegaly. CARDIOVASCULAR: S1 and S2 present. No murmurs, rubs, or gallops. -PULMONARY: Chest is clear to auscultation, no wheezing or crackles. Left-sided chest tube midline vertical surgical wound is clean and dry and closed -ABDOMEN: Soft, nontender, nondistended, normoactive bowel sounds. No palpable organomegaly. MUSCULOSKELETAL: No joint swelling or deformity. EXTREMITIES: No cyanosis, clubbing, or pedal edema. NEUROLOGICAL: Gross neurological examination did not reveal any focal deficits. SKIN: No rashes. no petechiae. - Labs CBC & Chem 7: 02/26/20 05:00 02/26/20 05:00 Labs: Abnormal Lab Results - Last 24 Hours (Table) 02/25/20 02/26/20 02/26/20 Range/Units 18:40 01:25 05:00 WBC 16.9 H (3.8-10.6) k/uL RBC 2.68 L (4.30-5.90) m/uL Hgb 7.9 L (13.0-17.5) gm/dL Hct 23.9 L (39.0-53.0) % RDW 15.6 H (11.5-15.5) % Plt Count 508 H (150-450) k/uL Neutrophils # (Manual) 13.10 H (1.3-7.7) k/uL Lymphocytes # (Manual) 0.34 L (1.0-4.8) k/uL Monocytes # (Manual) 1.18 H (0-1.0) k/uL Eosinophils # (Manual) 1.35 H (0-0.7) k/uL Metamyelocytes # (Man) 0.85 H (0) k/uL Nucleated RBCs 14 H (0-0) /100 WBC ABG pH (7.35-7.45) ABG pO2 (83-108) mmHg ABG HCO3 (21-25) mmol/L ABG Total CO2 (19-24) mmol/L Potassium (3.5-5.1) mmol/L Chloride (98-107) mmol/L BUN (9-20) mg/dL Glucose (74-99) mg/dL POC Glucose (mg/dL) 129 H 112 H (75-99) mg/dL Calcium (8.4-10.2) mg/dL 02/26/20 02/26/20 02/26/20 Range/Units 05:00 07:10 11:43 WBC (3.8-10.6) k/uL RBC (4.30-5.90) m/uL Hgb (13.0-17.5) gm/dL Hct (39.0-53.0) % RDW (11.5-15.5) % Plt Count (150-450) k/uL Neutrophils # (Manual) (1.3-7.7) k/uL Lymphocytes # (Manual) (1.0-4.8) k/uL Monocytes # (Manual) (0-1.0) k/uL Eosinophils # (Manual) (0-0.7) k/uL Metamyelocytes # (Man) (0) k/uL Nucleated RBCs (0-0) /100 WBC ABG pH 7.46 H (7.35-7.45) ABG pO2 71 L (83-108) mmHg ABG HCO3 28 H (21-25) mmol/L ABG Total CO2 29 H (19-24) mmol/L Potassium 3.4 L (3.5-5.1) mmol/L Chloride 111 H (98-107) mmol/L BUN 24 H (9-20) mg/dL Glucose 121 H (74-99) mg/dL POC Glucose (mg/dL) 129 H (75-99) mg/dL Calcium 7.8 L (8.4-10.2) mg/dL Microbiology - Last 24 Hours (Table) 02/22/20 17:22 Blood Culture - Preliminary Blood No Growth after 72 hours 02/20/20 15:47 Blood Culture - Preliminary Blood No Growth after 120 hours 02/20/20 16:22 Blood Culture - Preliminary Blood No Growth after 120 hours 02/22/20 19:23 Gram Stain - Final Sputum Sputum Culture - Final Selina krusei Selina albicans Assessment and Plan Assessment: - Fall from ladder with trauma to chest and abdomen with traumatic hydro- pneumothorax , status post chest tube -Splenic injury status post splenectomy patient had appropriate on him as well postoperative day 7. -Acute ventilatory dependent respiratory failure hypoxic secondary to polytrauma, pneumothorax and splenic injury, continue with the ventilatory support and wean off as tolerated. days of empiric antibiotics with Zosyn -A. fib with RVR -Traumatic left-sided rib fractures, alert to 7 -hyponatremia: Secondary to half-normal saline was switched to normal saline -Hemorrhagic shock on admission which improved patient received 4 units of PRBC transfusion presently hemodynamically stable is not requiring any pressors -acute blood loss anemia from polytrauma pneumoperitoneum -history of carotid artery disease with previous bypass surgery -Hyperlipidemia -Benign prostatic hypertrophy
[2020-02-26] MEDS: CLEVIDIPINE BUTYRATE 25 MG in EMPTY BAG 1 BAG IV SCH (14:36)
--- NOTE | 2020-02-26 14:37 | P.PN ---
Subjective Progress Note Date: 02/26/20 CHIEF COMPLAINT: Fall with Trauma HISTORY OF PRESENT ILLNESS: 69-year-old male who fell 15 feet off the top of the ladder. Patient's CAT scan was performed showing a large left pneumothorax as well as multiple rib fractures and hemoperitoneum and a ruptured spleen. Patient is status post splenectomy. He is on antibiotics. Patient is status post tracheostomy placement due to his respiratory failure and unable to wean from vent. PEG tube placement was canceled. WBC down to 16.9 hemoglobin 7.9 potass ium 3.4. Patient did have a fever last night of 102.1. Patient also started on IV amiodarone and Cardizem for A. fib and cardiology consult was placed. Patient being weaned off of sedation today. PHYSICAL EXAM: VITAL SIGNS: Reviewed. GENERAL: Well-developed in no acute distress. HEENT: No sclera icterus. Extraocular movements grossly intact. Moist buccal mucosa. Head is atraumatic, normocephalic. Trach site clean dry and intact ABDOMEN: Soft. Nondistended. Incision site clean dry and intact NEUROLOGIC: Patient is moving and being weaned off of sedation ASSESSMENT: 1. 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 2. Status post tracheostomy for respiratory failure 3. Status post fall off a ladder with, to chest and abdomen 4. Left-sided pneumothorax has chest tube in place 5. Multiple left-sided rib fractures 6. Alcohol intoxication 7. Acute hypoxic ventilatory dependent respiratory failure. 8. Chronic pain medication PLAN: -PEG tube placement was canceled. Patient will be reevaluated in a couple a days for possible PEG tube insertion. -Resume tube feedings -Continue ICU management -Continue IV fluids -On IV antibiotics -lovenox for DVT prophylaxis Physician Agricultural Adviser note has been reviewed by physician. Signing provider agrees with the documented findings, assessment, and plan of care. Objective - Vital Signs Vital signs: Vital Signs Temp 100.7 F H 02/26/20 12:00 Pulse 125 H 02/26/20 13:30 Resp 18 02/26/20 14:00 BP 142/83 02/26/20 14:00 Pulse Ox 94 L 02/26/20 14:00 Intake & Output 02/25/20 02/26/20 02/26/20 18:59 06:59 18:59 Intake Total 989.299 570 637.475 Output Total 1544 740 620 Balance -554.701 -170 17.475 Weight 93.9 kg 90.1 kg Intake: IV 475 340 260 Piperacillin-Tazobactam 3 75 100 100 .375 gm In Sodium Chloride 0.9% 100 ml @ 25 mls/hr IVPB Q8HR BETTINA Rx# :[id number] Sodium Chloride 0.9% 1, 200 240 160 000 ml @ 20 mls/hr IV . Q24H BETTINA Rx#:[id number] Intake, IV Titration 514.299 200 202.475 Amount Amiodarone 300 mg In 250 Dextrose 5% in Water 250 ml @ 0.5 MG/MIN 25 mls/hr IV .Q10H BETTINA Rx#: [id number] Diltiazem 125 mg In 40.0 Sodium Chloride 0.9% 100 ml @ Per Protocol IV .Q0M BETTINA Rx#:[id number] Morphine Sulfate (100 mg/ 7.769 50.762 2 ml) 100 mg In Sodium Chloride 0.9% 100 ml @ 2 MG/HR 2.04 mls/hr IV . Q24H BETTINA Rx#:[id number] propofoL 1,000 mg In 256.530 200 111.713 Empty Bag 1 bag @ Titrate IV .Q0M BETTINA Rx#: [id number] Oral 100 Tube Feeding 30 75 Output: Chest Tube Drainage 314 0 Chest Tube Left Upper 314 0 Lateral Chest Urine 1225 740 620 Estimated Blood Loss 5 Other: Voiding Method Indwelling Catheter Indwelling Catheter Indwelling Catheter ABP, PAP, CO, CI - Last Documented Arterial Blood Pressure 111/102 - Labs CBC & Chem 7: 02/26/20 05:00 02/26/20 05:00 Labs: Abnormal Lab Results - Last 24 Hours (Table) 02/25/20 02/26/20 02/26/20 Range/Units 18:40 01:25 05:00 WBC 16.9 H (3.8-10.6) k/uL RBC 2.68 L (4.30-5.90) m/uL Hgb 7.9 L (13.0-17.5) gm/dL Hct 23.9 L (39.0-53.0) % RDW 15.6 H (11.5-15.5) % Plt Count 508 H (150-450) k/uL Neutrophils # (Manual) 13.10 H (1.3-7.7) k/uL Lymphocytes # (Manual) 0.34 L (1.0-4.8) k/uL Monocytes # (Manual) 1.18 H (0-1.0) k/uL Eosinophils # (Manual) 1.35 H (0-0.7) k/uL Metamyelocytes # (Man) 0.85 H (0) k/uL Nucleated RBCs 14 H (0-0) /100 WBC ABG pH (7.35-7.45) ABG pO2 (83-108) mmHg ABG HCO3 (21-25) mmol/L ABG Total CO2 (19-24) mmol/L Potassium (3.5-5.1) mmol/L Chloride (98-107) mmol/L BUN (9-20) mg/dL Glucose (74-99) mg/dL POC Glucose (mg/dL) 129 H 112 H (75-99) mg/dL Calcium (8.4-10.2) mg/dL 02/26/20 02/26/20 02/26/20 Range/Units 05:00 07:10 11:43 WBC (3.8-10.6) k/uL RBC (4.30-5.90) m/uL Hgb (13.0-17.5) gm/dL Hct (39.0-53.0) % RDW (11.5-15.5) % Plt Count (150-450) k/uL Neutrophils # (Manual) (1.3-7.7) k/uL Lymphocytes # (Manual) (1.0-4.8) k/uL Monocytes # (Manual) (0-1.0) k/uL Eosinophils # (Manual) (0-0.7) k/uL Metamyelocytes # (Man) (0) k/uL Nucleated RBCs (0-0) /100 WBC ABG pH 7.46 H (7.35-7.45) ABG pO2 71 L (83-108) mmHg ABG HCO3 28 H (21-25) mmol/L ABG Total CO2 29 H (19-24) mmol/L Potassium 3.4 L (3.5-5.1) mmol/L Chloride 111 H (98-107) mmol/L BUN 24 H (9-20) mg/dL Glucose 121 H (74-99) mg/dL POC Glucose (mg/dL) 129 H (75-99) mg/dL Calcium 7.8 L (8.4-10.2) mg/dL Microbiology - Last 24 Hours (Table) 02/22/20 17:22 Blood Culture - Preliminary Blood No Growth after 72 hours 02/20/20 15:47 Blood Culture - Preliminary Blood No Growth after 120 hours 02/20/20 16:22 Blood Culture - Preliminary Blood No Growth after 120 hours 02/22/20 19:23 Gram Stain - Final Sputum Sputum Culture - Final Selina krusei Selina albicans
--- NOTE | 2020-02-26 15:04 | XR ---
EXAMINATION TYPE: XR chest 1V portable DATE OF EXAM: 02/26/2020 Comparison: 02/26/2020 Clinical History: 70-year-old male line placement. Findings: Tracheostomy cannula is present. The distal end is 1.9 cm above the rony. Left IJ CVC tip at the lo wer SVC. NG tube courses below the left basilar chest tube remains in place. New left PICC line tip i s obscured by the patient's left IJ catheter. Median sternotomy wires and post-CABG clips in the medi astinum. Diffuse interstitial opacity and patchy airspace opacity, right greater than left toes. Slig ht improvement from prior. Impression: 1. New left PICC line. The distal aspect is obscured by the patient's overlying left IJ CVC 2. Tracheostomy cannula redemonstrated. The distal aspect is located 1.9 cm from the rony. 3. Continued diffuse interstitial opacities and patchy airspace disease, right greater than left. Thi s shows slight improvement from earlier today. Possible pulmonary edema.
--- NOTE | 2020-02-26 15:17 | IR ---
EXAMINATION TYPE: IR cvc insert >=5 years DATE OF EXAM: 02/26/2020 COMPARISON: NONE HISTORY: Trauma, intubated, needs long-term intravenous access for therapy FINDINGS: Maximal barrier technique was utilized. Hand hygiene obtained with soap and water. The ski n overlying the left basilic vein was localized with ultrasound and noted to be compressible and tom nt by ultrasound. An ultrasound image was obtained and submitted on patient's chart. Sterile techniq ue utilized with the ultrasound machine. The skin overlying was prepped and draped and Lidocaine used for local anesthesia. A skin ana was made with a scalpel. Access was gained to the vein under dir ect ultrasound guidance with a 21-gauge needle and a 0.018 inch wire was advanced. Access site was d ilated with a peel-away sheath and the catheter tailored to length. Catheter advanced centrally and a post procedure chest x-ray verified placement with the tip in the superior vena cava. Catheter was fixed to the skin, and a sterile dressing placed. Hemostasis achieved and the catheter was aspirate d and flushed with sterile saline. The patient remained in stable condition. IMPRESSION: STATUS POST ULTRASOUND GUIDED PICC LINE PLACEMENT, READY FOR USE. THIS PROCEDURE WAS PER FORMED BY THE UNDERSIGNED.
[2020-02-26 18:20] LABS: Glucose,Whole Blood 128 mg/dL (75-99)
[2020-02-26] MEDS: POTASSIUM CHLORIDE 10 MEQ in WATER FOR INJECTION 1 100ML.BAG IVPB SCH ×2 (18:23→21:08)
--- NOTE | 2020-02-26 18:34 | PN ---
PROGRESS NOTE DATE OF SERVICE: 02/26/2020 REASON FOR FOLLOWUP: Fever and post splenectomy. INTERVAL HISTORY: The patient has been spiking a fever with 101.7 this morning, 100% the patient is hemodynamically stable, not on any pressor support. FiO2 is currently stable at 45% and the patient is status post tracheostomy yesterday; tolerated the procedure. No vomiting or diarrhea has been reported by the nursing staff. PHYSICAL EXAMINATION: Blood pressure is 139/75 with a pulse of 106, temperature 100.7, T-max 101. He is 96% on 45% FiO2. General description is an elderly male lying in bed in no distress. RESPIRATORY SYSTEM: Unlabored breathing with decreased breath sounds at the base. No wheeze. HEART: S1, S2. Regular rate and rhythm. ABDOMEN: Soft. No tenderness. LABS: Hemoglobin 7.9, white count 16.9, BUN of 24, creatinine 0.77. Cultures have been negative. Sputum showing Selina. DIAGNOSTIC IMPRESSION AND PLAN: 1. Patient with a fever in this patient admitted to hospital with trauma and is status post splenectomy, now with persistent fever and drop in his hemoglobin with concern for possible intraabdominal hematoma. Recommend obtaining a CT of abdomen and pelvis. The patient is empirically covered with Zosyn and culture has been negative. 2. Patient is post splenectomy. He will get his post-splenectomy vaccination day 14 of his surgery. Continue with supportive care. MMMAYELAL / DONATON: [id number] /
[2020-02-26] MEDS: TAMSULOSIN 0.4 MG CAP.ER.24H PO SCH (20:53)
[2020-02-26] MEDS: ATORVASTATIN 20 MG TAB PO SCH (21:09)
[2020-02-26] MEDS: ACETAMINOPHEN TAB 325 MG TAB PO PRN (21:09)
[2020-02-26] MEDS: FINASTERIDE 5 MG TAB PO SCH (21:10)
[2020-02-27 00:54] LABS: Glucose,Whole Blood 118 mg/dL (75-99)
[2020-02-27] MEDS: INSULIN ASPART (NovoLOG) 100 UNIT/ML VIAL SQ SCH ×4 (00:55→18:15)
[2020-02-27] MEDS: PIPERACILLIN-TAZOBACTAM 3.375 GM in SODIUM CHLORIDE 0.9% 100 ML IVPB SCH ×3 (00:56→15:19)
[2020-02-27 06:10] LABS: HCT 27.1 % (39.0-53.0); HGB 8.5 gm/dL (13.0-17.5); Hypochromasia Moderate; MCH 27.9 pg (25.0-35.0); MCHC 31.3 g/dL (31.0-37.0); MCV 89.2 fL (80.0-100.0); Mean Platelet Volume 10.8; Platelet Count 578 k/uL (150-450); Poikilocytosis Slight; RBC 3.04 m/uL (4.30-5.90); RDW 15.6 % (11.5-15.5)
[2020-02-27 06:21] LABS: African American GFR (CKD) >90 (>60 ml/min/1.73 sqM); Anion Gap 4 mmol/L; Blood Urea Nitrogen 31 mg/dL (9-20); Calcium 8.3 mg/dL (8.4-10.2); Carbon Dioxide 28 mmol/L (22-30); Chloride 111 mmol/L (98-107); Glucose 118 mg/dL (74-99); Non-African American GFR(CKD) 89 (>60 ml/min/1.73 sqM); Sodium 143 mmol/L (137-145)
[2020-02-27 06:22] LABS: Glucose,Whole Blood 134 mg/dL (75-99)
[2020-02-27 06:37] LABS: Potassium 4.3 mmol/L (3.5-5.1)
[2020-02-27] MEDS: DILTIAZEM 125 MG in SODIUM CHLORIDE 0.9% 100 ML IV SCH (06:49)
[2020-02-27] MEDS: MORPHINE SULFATE (100 MG/2 ML) 100 MG in SODIUM CHLORIDE 0.9% 100 ML IV SCH ×2 (06:51→07:56)
[2020-02-27 07:11] LABS: Band Neutrophils % 5 %; Eosinophils # (M) 0.76 k/uL (0-0.7); Large Platelets Present; Lymphocytes # (M) 1.32 k/uL (1.0-4.8); Metamyelocytes # (M) 0.19 k/uL (0); Metamyelocytes % 1 %; Monocytes # (M) 0.76 k/uL (0-1.0); Neutrophils % (M) 81 %; Nucleated Red Blood Cells 16 /100 WBC (0-0); Polychromasia Present; Total Cells Counted 200; WBC 18.9 k/uL (3.8-10.6)
[2020-02-27 07:15] LABS: Anisocytosis (M) Present
[2020-02-27 07:47] LABS: ABG Base Excess 4.7 mmol/L; ABG HCO3 28 mmol/L (21-25); ABG PCO2 38 mmHg (35-45); ABG PH 7.48 (7.35-7.45); ABG PO2 62 mmHg (83-108); ABG TCO2 29 mmol/L (19-24); Allen Test Performed? Yes
[2020-02-27] MEDS: QUEtiapine 50 MG TAB PO SCH ×2 (08:08→21:33)
[2020-02-27] MEDS: ENOXAPARIN 40 MG/0.4 ML SYRINGE SQ SCH (08:08)
[2020-02-27] MEDS: DOCUSATE ORAL SOLN 100 MG/10 ML CUP PO SCH ×2 (08:08→21:33)
[2020-02-27] MEDS: CHLORHEXIDINE GLUCONATE 15 ML CUP MUCOUS MEM SCH ×2 (08:09→21:33)
[2020-02-27] MEDS: SODIUM CHLORIDE 0.9% 1,000 ML IV SCH (08:09)
[2020-02-27] MEDS: AMIODARONE 200 MG TAB PO SCH ×2 (08:23→21:33)
--- NOTE | 2020-02-27 08:41 | XR ---
EXAMINATION TYPE: XR chest 1V portable DATE OF EXAM: 02/27/2020 CLINICAL HISTORY: Tube placement TECHNIQUE: Portable semiupright view of the chest obtained COMPARISON: 02/26/2020 chest radiograph FINDINGS: Tracheostomy tube overlies the trachea. Enteric tube with nonvisualization of the distal t ip, with side-port seen overlying the stomach. Left PICC distal tip over the cavoatrial junction. Lef t-sided chest tube distal tip over the medial left lung base. Sternotomy wires and valvular prosthesi s. Interval removal of left-sided internal jugular central venous catheter. There is diffuse intersti tial and patchy airspace opacities, which increased opacification of the right upper lobe versus 8 02/26/2020, with air bronchograms. Increased left basilar atelectasis. No pneumothorax seen within limits of technique. IMPRESSION: 1. Worsened airspace opacities of the right upper lung versus 02/26/2020 may represent developing pneum onia. 2. Interval removal of left internal jugular central venous catheter. Additional tubes and lines with unchanged radiographic appearance.
--- NOTE | 2020-02-27 11:24 | P.CNNES ---
History of Present Illness Consult date: 02/27/20 Reason for Consult: altered mental status History of Present Illness: This is a 70-year-old gentleman with medical history of Afib, coronary artery disease status post CABG that presented to the emergency department on 02/17/2020 who fell off from a ladder and was brought in the emergency department. History is obtained from medical record as well as the patient's nurse. He was found to have left rib fractures from the third to the seventh, left-sided pneumothorax and splenic injury. Patient has left-sided chest tube. 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 Patient has been intubated on a ventilator and was on sedation. ICU team held the sedation and the they're attempting to wean the patient off the ventilator but unable. Neurology team is consulted because of his altered mental status. Patient had the tracheostomy during hospital stay. He remains to be on a ventilator and on Precedex for sedation. Per medical during the hospital stay the patient had hemorrhagic shock which she received 4 units of red blood cell transfusion and he is hemodynamically stable The hospital stay the patient had A. fib with RVR. Patient had that CT of the head as well as cervical spine on 02/17/2020 and was reported as: Age-related atrophic and chronic small vessel ischemic change without acute intracranial process seen at this time. The CT cervical spine reported as no evidence of fracture or subluxation of the cervical spine. Per the patient nurse the patient has been on antibiotic is on Zosyn because of the splenectomy. Per the patient's nurse she stated that the patient is on propofol and that when she held the propofol yesterday for 8 hours the patient was agitated that. She said that the patient does not follow commands the but moving all extremities equally above gravity. Currently he is on 50 mcg/kg/min. she stated that the there is no seizure activity upon sedation being held. She stated that that there is a concern to the patient has aspiration pneumonia. Latest chest x-ray was on 02/27/2020 and was reported as worsening airspace opacity of the right upper lung versus the 02/26/2020 may represent developing pneumonia. Patient has a temperature of 100.9 Fahrenheit Review of Systems Review system is limited but per her positive and negative per HPI. Past Medical History Past Medical History: Coronary Artery Disease (CAD), Hyperlipidemia, Prostate Disorder Additional Past Medical History / Comment(s): Chronic back and neck pain, cervical fusion 2008 History of Any Multi-Drug Resistant Organisms: None Reported Past Surgical History: Coronary Bypass/CABG Additional Past Surgical History / Comment(s): CABG and tripple bypass, hernia inguinal , cervical spine fusion Past Anesthesia/Blood Transfusion Reactions: No Reported Reaction Past Psychological History: Anxiety Smoking Status: Former smoker Past Alcohol Use History: None Reported Past Drug Use History: None Reported, Marijuana Medications and Allergies Home Medications Medication Instructions Recorded Confirmed Type Finasteride [Proscar] 5 mg PO HS 02/17/20 02/17/20 History Morphine Sulfate ER [Ms Contin] 15 mg PO Q12HR 02/17/20 02/17/20 History Rosuvastatin Calcium [Crestor] 10 mg PO HS 02/17/20 02/17/20 History Tadalafil [Cialis] 20 mg PO Q36H PRN 02/17/20 02/17/20 History Tamsulosin HCl [Flomax] 0.8 mg PO HS 02/17/20 02/17/20 History atenoloL [Atenolol] 25 mg PO HS 02/17/20 02/17/20 History traZODone HCL [Desyrel] 50 mg PO HS PRN 02/17/20 02/17/20 History Allergies Allergy/AdvReac Type Severity Reaction Status Date / Time fentanyl Allergy Unknown Verified 02/17/20 18:35 nitroglycerin AdvReac Unknown Verified 02/17/20 18:35 [From Nitroglyn] Physical Examination - Vital Signs Vital Signs: Vital Signs Temp Pulse Resp BP Pulse Ox 02/27/20 09:00 91 25 H 150/95 94 L 02/27/20 08:00 100.9 F H 118 H 29 H 126/71 94 L 02/27/20 07:00 90 36 H 121/59 95 02/27/20 06:00 82 25 H 133/64 94 L 02/27/20 05:00 84 27 H 134/65 94 L 02/27/20 04:00 99.4 F 92 26 H 152/68 95 02/27/20 03:00 93 36 H 133/61 94 L 02/27/20 02:00 85 28 H 130/62 98 02/27/20 01:00 91 30 H 131/65 95 02/27/20 00:00 98.4 F 87 21 125/71 95 02/26/20 23:00 93 27 H 114/57 93 L 02/26/20 22:00 87 26 H 131/60 96 02/26/20 21:00 90 30 H 132/68 97 02/26/20 20:00 100.5 F H 93 30 H 141/64 95 02/26/20 19:30 126 H 16 141/64 94 L 02/26/20 19:00 99 31 H 138/76 93 L 02/26/20 18:30 96 18 138/76 94 L 02/26/20 18:00 99 21 140/81 02/26/20 17:30 96 28 H 140/81 02/26/20 17:00 106 H 18 139/75 96 02/26/20 16:30 98 20 139/75 93 L 02/26/20 16:00 100.7 F H 113 H 35 H 147/94 94 L 02/26/20 15:30 96 34 H 147/94 92 L 02/26/20 15:00 116 H 28 H 148/72 02/26/20 14:30 110 H 23 148/72 94 L 02/26/20 14:00 18 142/83 94 L 02/26/20 13:30 125 H 19 142/83 92 L 02/26/20 13:00 118 H 24 92 L 02/26/20 12:30 126 H 18 151/73 92 L 02/26/20 12:00 100.7 F H 112 H 11 L 149/83 92 L 02/26/20 11:30 115 H 24 149/83 91 L 02/26/20 11:00 122 H 22 137/84 92 L 02/26/20 10:30 113 H 12 137/84 91 L Intake and Output 02/26/20 02/27/20 02/27/20 22:59 06:59 14:59 Intake Total 904.967 746.663 271.087 Output Total 850 430 160 Balance 54.967 316.663 111.087 Intake: IV 260 180 160 Piperacillin-Tazobactam 3 100 100 100 .375 gm In Sodium Chloride 0.9% 100 ml @ 25 mls/hr IVPB Q8HR [facility] Rx# :[id number] Sodium Chloride 0.9% 1, 160 80 60 000 ml @ 20 mls/hr IV . Q24H [facility] Rx#:[id number] Intake, IV Titration 359.967 266.663 51.087 Amount Diltiazem 125 mg In 86.625 124.333 Sodium Chloride 0.9% 100 ml @ Per Protocol IV .Q0M [facility] Rx#:[id number] Morphine Sulfate (100 mg/ 42.33 2 ml) 100 mg In Sodium Chloride 0.9% 100 ml @ 2 MG/HR 2.04 mls/hr IV . Q24H [facility] Rx#:[id number] Potassium Chloride 10 meq 200 In Water For Injection 1 100ml.bag @ 100 mls/hr IVPB Q1H [facility] Rx#: [id number] propofoL 1,000 mg In 73.342 100 51.087 Empty Bag 1 bag @ Titrate IV .Q0M [facility] Rx#: [id number] Tube Feeding 195 240 60 Other 90 60 Output: Chest Tube Drainage 110 Chest Tube Left Upper 110 Lateral Chest Urine 740 430 160 Other: Voiding Method Indwelling Catheter Indwelling Catheter Indwelling Catheter GENERAL: The patient is lying and seems to be in acute distress. HENT: No neck rigidity that was significantly noticeable. Normocephalic atraumatic otherwise. CHEST: The heart rate is irregular rate rhythm. No murmurs to auscultation. LUNG: Clear to auscultation bilaterally. Not labored breathing. ABDOMEN/GI: Bowel sounds present in all 4 quadrants. Abdomen not distended. NEUROLOGICAL: Limited because of condition. Currently on Propofol 50mcg/kg/min. Higher mental function: Patient is opening eyes to painful stimuli. Not following commands. Cranial nerves: The pupils are 3 minutes bilaterally and reactive to light. The pupils are midline and there is no gaze deviation bilaterally. There is no facial lower weakness bilaterally. Motor: Gait is deferred. Strength the with a pulse mode the patient is able to move all extremities above gravity and there is no focality that's noticeable. Cerebellum: Unable to assess Sensation: Intact to the painful stimuli. Reflexes (right/left): Brisk reflexes throughout. Plantars are downgoing bilaterally. Results AST on presentation was 55 currently at 144. ALTs on presentation was 33 now it's 80. Calcium is 8.3 Creatinine on presentation was 14 currently is 31. White blood on admission was 9.8 currently rates 18.9. UA was done twice one on 02/18/2020 and 02/22/2020 and both were negative for UTI. On presentation the patient's hemoglobin was 10.5 currently a 0.5. - Laboratory Findings CBC and BMP: 02/27/20 05:45 02/27/20 05:45 Abnormal Lab Findings: Abnormal Labs 02/17/20 02/17/20 02/17/20 17:56 17:56 17:56 WBC RBC 3.61 L Hgb 10.5 L Hct 30.6 L MCHC RDW Plt Count Neutrophils # Neutrophils # (Manual) Lymphocytes # (Manual) Monocytes # Monocytes # (Manual) Eosinophils # (Manual) Basophils # (Manual) Metamyelocytes # (Man) Myelocytes # (Manual) Nucleated RBCs APTT 21.1 L ABG pH ABG pCO2 ABG pO2 ABG HCO3 ABG Total CO2 ABG O2 Saturation Sodium Potassium 3.2 L Chloride 110 H Carbon Dioxide 18 L BUN Creatinine Glucose 144 H POC Glucose (mg/dL) Plasma Lactic Acid Blaine Calcium 8.1 L Magnesium Total Bilirubin AST ALT Alkaline Phosphatase Creatine Kinase 218 H Total Protein 4.7 L Albumin 2.8 L Urine Protein Urine Glucose (UA) Urine Ketones Urine Blood Urine RBC Urine Mucus Urine Opiates Screen U Marijuana (THC) Screen Crossmatch 02/17/20 02/17/20 02/17/20 17:56 18:03 18:03 WBC RBC Hgb Hct MCHC RDW Plt Count Neutrophils # Neutrophils # (Manual) Lymphocytes # (Manual) Monocytes # Monocytes # (Manual) Eosinophils # (Manual) Basophils # (Manual) Metamyelocytes # (Man) Myelocytes # (Manual) Nucleated RBCs APTT ABG pH ABG pCO2 ABG pO2 ABG HCO3 ABG Total CO2 ABG O2 Saturation Sodium Potassium Chloride Carbon Dioxide BUN Creatinine Glucose POC Glucose (mg/dL) 180 H Plasma Lactic Acid Blaine 4.5 H* Calcium Magnesium Total Bilirubin AST ALT Alkaline Phosphatase Creatine Kinase Total Protein Albumin Urine Protein Urine Glucose (UA) Urine Ketones Urine Blood Urine RBC Urine Mucus Urine Opiates Screen U Marijuana (THC) Screen Crossmatch See Detail 02/17/20 02/17/20 02/17/20 20:03 21:00 21:13 WBC RBC Hgb Hct MCHC RDW Plt Count Neutrophils # Neutrophils # (Manual) Lymphocytes # (Manual) Monocytes # Monocytes # (Manual) Eosinophils # (Manual) Basophils # (Manual) Metamyelocytes # (Man) Myelocytes # (Manual) Nucleated RBCs APTT ABG pH 7.25 L ABG pCO2 ABG pO2 >400 H ABG HCO3 17 L ABG Total CO2 18 L ABG O2 Saturation 99.5 H Sodium Potassium Chloride Carbon Dioxide BUN Creatinine Glucose POC Glucose (mg/dL) 166 H Plasma Lactic Acid Blaine 4.4 H* Calcium Magnesium Total Bilirubin AST ALT Alkaline Phosphatase Creatine Kinase Total Protein Albumin Urine Protein Urine Glucose (UA) Urine Ketones Urine Blood Urine RBC Urine Mucus Urine Opiates Screen U Marijuana (THC) Screen Crossmatch 02/17/20 02/17/20 02/18/20 22:45 22:45 00:55 WBC 21.7 H RBC Hgb Hct MCHC RDW Plt Count 102 L Neutrophils # 18.1 H Neutrophils # (Manual) Lymphocytes # (Manual) Monocytes # 1.1 H Monocytes # (Manual) Eosinophils # (Manual) Basophils # (Manual) Metamyelocytes # (Man) Myelocytes # (Manual) Nucleated RBCs APTT ABG pH ABG pCO2 ABG pO2 ABG HCO3 ABG Total CO2 ABG O2 Saturation Sodium Potassium Chloride 113 H Carbon Dioxide 17 L BUN Creatinine Glucose 143 H POC Glucose (mg/dL) Plasma Lactic Acid Blaine 2.9 H* Calcium 7.4 L Magnesium Total Bilirubin AST 90 H ALT Alkaline Phosphatase Creatine Kinase Total Protein 4.7 L Albumin 2.7 L Urine Protein Urine Glucose (UA) Urine Ketones Urine Blood Urine RBC Urine Mucus Urine Opiates Screen U Marijuana (THC) Screen Crossmatch 02/18/20 02/18/20 02/18/20 01:00 04:15 04:15 WBC 16.9 H RBC Hgb Hct MCHC RDW Plt Count 102 L Neutrophils # 14.2 H Neutrophils # (Manual) Lymphocytes # (Manual) Monocytes # 1.2 H Monocytes # (Manual) Eosinophils # (Manual) Basophils # (Manual) Metamyelocytes # (Man) Myelocytes # (Manual) Nucleated RBCs APTT ABG pH ABG pCO2 ABG pO2 ABG HCO3 ABG Total CO2 ABG O2 Saturation Sodium 136 L Potassium Chloride 110 H Carbon Dioxide BUN Creatinine Glucose 137 H POC Glucose (mg/dL) Plasma Lactic Acid Blaine Calcium 7.6 L Magnesium 1.4 L Total Bilirubin AST ALT Alkaline Phosphatase Creatine Kinase Total Protein Albumin Urine Protein Urine Glucose (UA) 1+ H Urine Ketones Urine Blood Moderate H Urine RBC 22 H Urine Mucus Rare H Urine Opiates Screen Detected H U Marijuana (THC) Screen Detected H Crossmatch 02/18/20 02/18/20 02/18/20 04:15 04:57 07:00 WBC RBC Hgb Hct MCHC RDW Plt Count Neutrophils # Neutrophils # (Manual) Lymphocytes # (Manual) Monocytes # Monocytes # (Manual) Eosinophils # (Manual) Basophils # (Manual) Metamyelocytes # (Man) Myelocytes # (Manual) Nucleated RBCs APTT ABG pH ABG pCO2 ABG pO2 121 H ABG HCO3 ABG Total CO2 ABG O2 Saturation 98.7 H Sodium Potassium Chloride Carbon Dioxide BUN Creatinine Glucose POC Glucose (mg/dL) Plasma Lactic Acid Blaine 2.9 H* 3.4 H* Calcium Magnesium Total Bilirubin AST ALT Alkaline Phosphatase Creatine Kinase Total Protein Albumin Urine Protein Urine Glucose (UA) Urine Ketones Urine Blood Urine RBC Urine Mucus Urine Opiates Screen U Marijuana (THC) Screen Crossmatch 02/18/20 02/18/20 02/18/20 12:42 14:57 18:17 WBC RBC Hgb Hct MCHC RDW Plt Count Neutrophils # Neutrophils # (Manual) Lymphocytes # (Manual) Monocytes # Monocytes # (Manual) Eosinophils # (Manual) Basophils # (Manual) Metamyelocytes # (Man) Myelocytes # (Manual) Nucleated RBCs APTT ABG pH ABG pCO2 ABG pO2 ABG HCO3 ABG Total CO2 ABG O2 Saturation Sodium Potassium Chloride Carbon Dioxide BUN Creatinine Glucose POC Glucose (mg/dL) 137 H 125 H Plasma Lactic Acid Blaine 2.5 H* Calcium Magnesium Total Bilirubin AST ALT Alkaline Phosphatase Creatine Kinase Total Protein Albumin Urine Protein Urine Glucose (UA) Urine Ketones Urine Blood Urine RBC Urine Mucus Urine Opiates Screen U Marijuana (THC) Screen Crossmatch 02/19/20 02/19/20 02/19/20 00:52 04:00 04:00 WBC 16.8 H RBC 3.77 L Hgb 11.6 L Hct 32.1 L MCHC RDW Plt Count 108 L Neutrophils # 13.0 H Neutrophils # (Manual) Lymphocytes # (Manual) Monocytes # 1.1 H Monocytes # (Manual) Eosinophils # (Manual) Basophils # (Manual) Metamyelocytes # (Man) Myelocytes # (Manual) Nucleated RBCs APTT ABG pH ABG pCO2 ABG pO2 ABG HCO3 ABG Total CO2 ABG O2 Saturation Sodium 132 L Potassium Chloride Carbon Dioxide BUN Creatinine Glucose 118 H POC Glucose (mg/dL) 106 H Plasma Lactic Acid Blaine Calcium 7.6 L Magnesium Total Bilirubin AST 227 H ALT 95 H Alkaline Phosphatase Creatine Kinase Total Protein 4.1 L Albumin 2.3 L Urine Protein Urine Glucose (UA) Urine Ketones Urine Blood Urine RBC Urine Mucus Urine Opiates Screen U Marijuana (THC) Screen Crossmatch 02/19/20 02/19/20 02/19/20 05:11 11:43 17:16 WBC RBC Hgb Hct MCHC RDW Plt Count Neutrophils # Neutrophils # (Manual) Lymphocytes # (Manual) Monocytes # Monocytes # (Manual) Eosinophils # (Manual) Basophils # (Manual) Metamyelocytes # (Man) Myelocytes # (Manual) Nucleated RBCs APTT ABG pH 7.49 H ABG pCO2 31 L ABG pO2 ABG HCO3 ABG Total CO2 25 H ABG O2 Saturation 97.3 H Sodium Potassium Chloride Carbon Dioxide BUN Creatinine Glucose POC Glucose (mg/dL) 152 H 101 H Plasma Lactic Acid Blaine Calcium Magnesium Total Bilirubin AST ALT Alkaline Phosphatase Creatine Kinase Total Protein Albumin Urine Protein Urine Glucose (UA) Urine Ketones Urine Blood Urine RBC Urine Mucus Urine Opiates Screen U Marijuana (THC) Screen Crossmatch 02/20/20 02/20/20 02/20/20 00:05 00:07 04:35 WBC RBC Hgb Hct MCHC RDW Plt Count Neutrophils # Neutrophils # (Manual) Lymphocytes # (Manual) Monocytes # Monocytes # (Manual) Eosinophils # (Manual) Basophils # (Manual) Metamyelocytes # (Man) Myelocytes # (Manual) Nucleated RBCs APTT ABG pH ABG pCO2 ABG pO2 ABG HCO3 ABG Total CO2 ABG O2 Saturation Sodium 132 L Potassium Chloride 111 H Carbon Dioxide 20 L BUN Creatinine Glucose 111 H POC Glucose (mg/dL) 64 L 122 H Plasma Lactic Acid Blaine Calcium 7.1 L Magnesium Total Bilirubin AST 318 H ALT 119 H Alkaline Phosphatase Creatine Kinase Total Protein 4.2 L Albumin 2.1 L Urine Protein Urine Glucose (UA) Urine Ketones Urine Blood Urine RBC Urine Mucus Urine Opiates Screen U Marijuana (THC) Screen Crossmatch 02/20/20 02/20/20 02/20/20 04:45 05:10 05:44 WBC 13.5 H RBC 3.18 L Hgb 9.7 L D Hct 27.4 L MCHC RDW Plt Count 122 L Neutrophils # Neutrophils # (Manual) Lymphocytes # (Manual) Monocytes # Monocytes # (Manual) Eosinophils # (Manual) Basophils # (Manual) Metamyelocytes # (Man) Myelocytes # (Manual) Nucleated RBCs APTT ABG pH 7.48 H ABG pCO2 27 L ABG pO2 ABG HCO3 20 L ABG Total CO2 ABG O2 Saturation 98.1 H Sodium Potassium Chloride Carbon Dioxide BUN Creatinine Glucose POC Glucose (mg/dL) 47 L Plasma Lactic Acid Blaine Calcium Magnesium Total Bilirubin AST ALT Alkaline Phosphatase Creatine Kinase Total Protein Albumin Urine Protein Urine Glucose (UA) Urine Ketones Urine Blood Urine RBC Urine Mucus Urine Opiates Screen U Marijuana (THC) Screen Crossmatch 02/20/20 02/20/20 02/21/20 05:50 17:55 01:00 WBC RBC Hgb Hct MCHC RDW Plt Count Neutrophils # Neutrophils # (Manual) Lymphocytes # (Manual) Monocytes # Monocytes # (Manual) Eosinophils # (Manual) Basophils # (Manual) Metamyelocytes # (Man) Myelocytes # (Manual) Nucleated RBCs APTT ABG pH ABG pCO2 ABG pO2 ABG HCO3 ABG Total CO2 ABG O2 Saturation Sodium Potassium Chloride Carbon Dioxide BUN Creatinine Glucose POC Glucose (mg/dL) 124 H 123 H 119 H Plasma Lactic Acid Blaine Calcium Magnesium Total Bilirubin AST ALT Alkaline Phosphatase Creatine Kinase Total Protein Albumin Urine Protein Urine Glucose (UA) Urine Ketones Urine Blood Urine RBC Urine Mucus Urine Opiates Screen U Marijuana (THC) Screen Crossmatch 02/21/20 02/21/20 02/21/20 04:20 04:20 04:23 WBC 13.4 H RBC 2.99 L Hgb 8.6 L Hct 25.8 L MCHC RDW Plt Count Neutrophils # Neutrophils # (Manual) Lymphocytes # (Manual) Monocytes # Monocytes # (Manual) Eosinophils # (Manual) Basophils # (Manual) Metamyelocytes # (Man) Myelocytes # (Manual) Nucleated RBCs APTT ABG pH ABG pCO2 32 L ABG pO2 129 H ABG HCO3 ABG Total CO2 ABG O2 Saturation 98.7 H Sodium Potassium Chloride 114 H Carbon Dioxide 20 L BUN Creatinine 0.52 L Glucose 122 H POC Glucose (mg/dL) Plasma Lactic Acid Blaine Calcium 7.3 L Magnesium Total Bilirubin AST 175 H ALT 104 H Alkaline Phosphatase 175 H Creatine Kinase Total Protein 3.9 L Albumin 2.0 L Urine Protein Urine Glucose (UA) Urine Ketones Urine Blood Urine RBC Urine Mucus Urine Opiates Screen U Marijuana (THC) Screen Crossmatch 02/21/20 02/21/20 02/21/20 06:30 11:43 18:32 WBC RBC Hgb Hct MCHC RDW Plt Count Neutrophils # Neutrophils # (Manual) Lymphocytes # (Manual) Monocytes # Monocytes # (Manual) Eosinophils # (Manual) Basophils # (Manual) Metamyelocytes # (Man) Myelocytes # (Manual) Nucleated RBCs APTT ABG pH ABG pCO2 ABG pO2 ABG HCO3 ABG Total CO2 ABG O2 Saturation Sodium Potassium Chloride Carbon Dioxide BUN Creatinine Glucose POC Glucose (mg/dL) 103 H 156 H 138 H Plasma Lactic Acid Blaine Calcium Magnesium Total Bilirubin AST ALT Alkaline Phosphatase Creatine Kinase Total Protein Albumin Urine Protein Urine Glucose (UA) Urine Ketones Urine Blood Urine RBC Urine Mucus Urine Opiates Screen U Marijuana (THC) Screen Crossmatch 02/22/20 02/22/20 02/22/20 00:28 04:49 05:20 WBC 17.3 H RBC 2.85 L Hgb 9.3 L Hct 24.4 L MCHC 38.1 H RDW Plt Count Neutrophils # Neutrophils # (Manual) Lymphocytes # (Manual) Monocytes # Monocytes # (Manual) Eosinophils # (Manual) Basophils # (Manual) Metamyelocytes # (Man) Myelocytes # (Manual) Nucleated RBCs APTT ABG pH ABG pCO2 ABG pO2 ABG HCO3 ABG Total CO2 25 H ABG O2 Saturation 97.7 H Sodium Potassium Chloride Carbon Dioxide BUN Creatinine Glucose POC Glucose (mg/dL) 123 H Plasma Lactic Acid Blaine Calcium Magnesium Total Bilirubin AST ALT Alkaline Phosphatase Creatine Kinase Total Protein Albumin Urine Protein Urine Glucose (UA) Urine Ketones Urine Blood Urine RBC Urine Mucus Urine Opiates Screen U Marijuana (THC) Screen Crossmatch 02/22/20 02/22/20 02/22/20 05:20 05:55 11:33 WBC RBC Hgb Hct MCHC RDW Plt Count Neutrophils # Neutrophils # (Manual) Lymphocytes # (Manual) Monocytes # Monocytes # (Manual) Eosinophils # (Manual) Basophils # (Manual) Metamyelocytes # (Man) Myelocytes # (Manual) Nucleated RBCs APTT ABG pH ABG pCO2 ABG pO2 ABG HCO3 ABG Total CO2 ABG O2 Saturation Sodium Potassium Chloride 114 H Carbon Dioxide BUN Creatinine 0.51 L Glucose 106 H POC Glucose (mg/dL) 109 H 127 H Plasma Lactic Acid Blaine Calcium 7.8 L Magnesium Total Bilirubin AST 137 H ALT 93 H Alkaline Phosphatase 235 H Creatine Kinase Total Protein 4.3 L Albumin 2.2 L Urine Protein Urine Glucose (UA) Urine Ketones Urine Blood Urine RBC Urine Mucus Urine Opiates Screen U Marijuana (THC) Screen Crossmatch 02/22/20 02/22/20 02/22/20 12:01 17:30 18:06 WBC RBC Hgb Hct MCHC RDW Plt Count Neutrophils # Neutrophils # (Manual) Lymphocytes # (Manual) Monocytes # Monocytes # (Manual) Eosinophils # (Manual) Basophils # (Manual) Metamyelocytes # (Man) Myelocytes # (Manual) Nucleated RBCs APTT ABG pH ABG pCO2 ABG pO2 ABG HCO3 ABG Total CO2 ABG O2 Saturation Sodium Potassium 3.4 L Chloride Carbon Dioxide BUN Creatinine Glucose POC Glucose (mg/dL) 123 H Plasma Lactic Acid Blaine Calcium Magnesium Total Bilirubin AST ALT Alkaline Phosphatase Creatine Kinase Total Protein Albumin Urine Protein Trace H Urine Glucose (UA) Urine Ketones Trace H Urine Blood Urine RBC Urine Mucus Urine Opiates Screen U Marijuana (THC) Screen Crossmatch 02/23/20 02/23/20 02/23/20 05:12 07:00 07:00 WBC 22.1 H RBC 3.05 L Hgb 9.5 L Hct 26.5 L MCHC RDW Plt Count Neutrophils # Neutrophils # (Manual) 18.70 H Lymphocytes # (Manual) Monocytes # Monocytes # (Manual) 1.33 H Eosinophils # (Manual) Basophils # (Manual) Metamyelocytes # (Man) 0.22 H Myelocytes # (Manual) Nucleated RBCs 15 H APTT ABG pH 7.47 H ABG pCO2 ABG pO2 73 L ABG HCO3 28 H ABG Total CO2 29 H ABG O2 Saturation Sodium Potassium Chloride 109 H Carbon Dioxide BUN Creatinine 0.62 L Glucose 132 H POC Glucose (mg/dL) Plasma Lactic Acid Blaine Calcium 7.9 L Magnesium Total Bilirubin AST ALT Alkaline Phosphatase Creatine Kinase Total Protein Albumin Urine Protein Urine Glucose (UA) Urine Ketones Urine Blood Urine RBC Urine Mucus Urine Opiates Screen U Marijuana (THC) Screen Crossmatch 02/23/20 02/23/20 02/23/20 11:47 16:53 23:36 WBC RBC Hgb Hct MCHC RDW Plt Count Neutrophils # Neutrophils # (Manual) Lymphocytes # (Manual) Monocytes # Monocytes # (Manual) Eosinophils # (Manual) Basophils # (Manual) Metamyelocytes # (Man) Myelocytes # (Manual) Nucleated RBCs APTT ABG pH ABG pCO2 ABG pO2 ABG HCO3 ABG Total CO2 ABG O2 Saturation Sodium Potassium Chloride Carbon Dioxide BUN Creatinine Glucose POC Glucose (mg/dL) 147 H 152 H 144 H Plasma Lactic Acid Blaine Calcium Magnesium Total Bilirubin AST ALT Alkaline Phosphatase Creatine Kinase Total Protein Albumin Urine Protein Urine Glucose (UA) Urine Ketones Urine Blood Urine RBC Urine Mucus Urine Opiates Screen U Marijuana (THC) Screen Crossmatch 02/24/20 02/24/20 02/24/20 05:55 07:00 07:00 WBC 22.5 H RBC 2.98 L Hgb 8.9 L Hct 25.9 L MCHC RDW Plt Count Neutrophils # Neutrophils # (Manual) 16.60 H Lymphocytes # (Manual) Monocytes # Monocytes # (Manual) 1.35 H Eosinophils # (Manual) 2.93 H Basophils # (Manual) 0.23 H Metamyelocytes # (Man) 0.45 H Myelocytes # (Manual) 0.45 H Nucleated RBCs 17 H APTT ABG pH ABG pCO2 ABG pO2 ABG HCO3 ABG Total CO2 ABG O2 Saturation Sodium Potassium Chloride 109 H Carbon Dioxide BUN 24 H Creatinine Glucose 135 H POC Glucose (mg/dL) 162 H Plasma Lactic Acid Blaine Calcium 8.3 L Magnesium Total Bilirubin AST ALT Alkaline Phosphatase Creatine Kinase Total Protein Albumin Urine Protein Urine Glucose (UA) Urine Ketones Urine Blood Urine RBC Urine Mucus Urine Opiates Screen U Marijuana (THC) Screen Crossmatch 02/24/20 02/24/20 02/24/20 07:40 11:50 16:21 WBC RBC Hgb Hct MCHC RDW Plt Count Neutrophils # Neutrophils # (Manual) Lymphocytes # (Manual) Monocytes # Monocytes # (Manual) Eosinophils # (Manual) Basophils # (Manual) Metamyelocytes # (Man) Myelocytes # (Manual) Nucleated RBCs APTT ABG pH 7.47 H ABG pCO2 ABG pO2 67 L ABG HCO3 29 H ABG Total CO2 30 H ABG O2 Saturation Sodium Potassium Chloride Carbon Dioxide BUN Creatinine Glucose POC Glucose (mg/dL) 128 H 145 H Plasma Lactic Acid Blaine Calcium Magnesium Total Bilirubin AST ALT Alkaline Phosphatase Creatine Kinase Total Protein Albumin Urine Protein Urine Glucose (UA) Urine Ketones Urine Blood Urine RBC Urine Mucus Urine Opiates Screen U Marijuana (THC) Screen Crossmatch 02/24/20 02/24/20 02/25/20 17:59 18:35 00:38 WBC RBC Hgb Hct MCHC RDW Plt Count Neutrophils # Neutrophils # (Manual) Lymphocytes # (Manual) Monocytes # Monocytes # (Manual) Eosinophils # (Manual) Basophils # (Manual) Metamyelocytes # (Man) Myelocytes # (Manual) Nucleated RBCs APTT ABG pH ABG pCO2 ABG pO2 ABG HCO3 ABG Total CO2 ABG O2 Saturation Sodium Potassium Chloride 110 H Carbon Dioxide BUN 24 H Creatinine Glucose 131 H POC Glucose (mg/dL) 146 H 143 H Plasma Lactic Acid Blaine Calcium Magnesium Total Bilirubin 1.6 H AST 144 H ALT 80 H Alkaline Phosphatase 312 H Creatine Kinase Total Protein 4.6 L Albumin 2.3 L Urine Protein Urine Glucose (UA) Urine Ketones Urine Blood Urine RBC Urine Mucus Urine Opiates Screen U Marijuana (THC) Screen Crossmatch 02/25/20 02/25/20 02/25/20 04:55 06:20 07:18 WBC 19.1 H RBC 2.97 L Hgb 8.8 L Hct 26.3 L MCHC RDW Plt Count 521 H Neutrophils # Neutrophils # (Manual) 14.50 H Lymphocytes # (Manual) Monocytes # Monocytes # (Manual) Eosinophils # (Manual) 1.91 H Basophils # (Manual) Metamyelocytes # (Man) 0.38 H Myelocytes # (Manual) 0.38 H Nucleated RBCs 25 H APTT ABG pH ABG pCO2 ABG pO2 68 L ABG HCO3 29 H ABG Total CO2 31 H ABG O2 Saturation 93.2 L Sodium Potassium Chloride 110 H Carbon Dioxide BUN 22 H Creatinine Glucose 122 H POC Glucose (mg/dL) Plasma Lactic Acid Blaine Calcium 7.9 L Magnesium Total Bilirubin AST ALT Alkaline Phosphatase Creatine Kinase Total Protein Albumin Urine Protein Urine Glucose (UA) Urine Ketones Urine Blood Urine RBC Urine Mucus Urine Opiates Screen U Marijuana (THC) Screen Crossmatch 02/25/20 02/25/20 02/26/20 12:47 18:40 01:25 WBC RBC Hgb Hct MCHC RDW Plt Count Neutrophils # Neutrophils # (Manual) Lymphocytes # (Manual) Monocytes # Monocytes # (Manual) Eosinophils # (Manual) Basophils # (Manual) Metamyelocytes # (Man) Myelocytes # (Manual) Nucleated RBCs APTT ABG pH ABG pCO2 ABG pO2 ABG HCO3 ABG Total CO2 ABG O2 Saturation Sodium Potassium Chloride Carbon Dioxide BUN Creatinine Glucose POC Glucose (mg/dL) 128 H 129 H 112 H Plasma Lactic Acid Blaine Calcium Magnesium Total Bilirubin AST ALT Alkaline Phosphatase Creatine Kinase Total Protein Albumin Urine Protein Urine Glucose (UA) Urine Ketones Urine Blood Urine RBC Urine Mucus Urine Opiates Screen U Marijuana (THC) Screen Crossmatch 02/26/20 02/26/20 02/26/20 05:00 05:00 07:10 WBC 16.9 H RBC 2.68 L Hgb 7.9 L Hct 23.9 L MCHC RDW 15.6 H Plt Count 508 H Neutrophils # Neutrophils # (Manual) 13.10 H Lymphocytes # (Manual) 0.34 L Monocytes # Monocytes # (Manual) 1.18 H Eosinophils # (Manual) 1.35 H Basophils # (Manual) Metamyelocytes # (Man) 0.85 H Myelocytes # (Manual) Nucleated RBCs 14 H APTT ABG pH 7.46 H ABG pCO2 ABG pO2 71 L ABG HCO3 28 H ABG Total CO2 29 H ABG O2 Saturation Sodium Potassium 3.4 L Chloride 111 H Carbon Dioxide BUN 24 H Creatinine Glucose 121 H POC Glucose (mg/dL) Plasma Lactic Acid Blaine Calcium 7.8 L Magnesium Total Bilirubin AST ALT Alkaline Phosphatase Creatine Kinase Total Protein Albumin Urine Protein Urine Glucose (UA) Urine Ketones Urine Blood Urine RBC Urine Mucus Urine Opiates Screen U Marijuana (THC) Screen Crossmatch 02/26/20 02/26/20 02/27/20 11:43 18:18 00:53 WBC RBC Hgb Hct MCHC RDW Plt Count Neutrophils # Neutrophils # (Manual) Lymphocytes # (Manual) Monocytes # Monocytes # (Manual) Eosinophils # (Manual) Basophils # (Manual) Metamyelocytes # (Man) Myelocytes # (Manual) Nucleated RBCs APTT ABG pH ABG pCO2 ABG pO2 ABG HCO3 ABG Total CO2 ABG O2 Saturation Sodium Potassium Chloride Carbon Dioxide BUN Creatinine Glucose POC Glucose (mg/dL) 129 H 128 H 118 H Plasma Lactic Acid Blaine Calcium Magnesium Total Bilirubin AST ALT Alkaline Phosphatase Creatine Kinase Total Protein Albumin Urine Protein Urine Glucose (UA) Urine Ketones Urine Blood Urine RBC Urine Mucus Urine Opiates Screen U Marijuana (THC) Screen Crossmatch 0902/27/20 02/27/20 05:45 05:45 06:21 WBC 18.9 H RBC 3.04 L Hgb 8.5 L Hct 27.1 L MCHC RDW 15.6 H Plt Count 578 H Neutrophils # Neutrophils # (Manual) 16.20 H Lymphocytes # (Manual) Monocytes # Monocytes # (Manual) Eosinophils # (Manual) 0.76 H Basophils # (Manual) Metamyelocytes # (Man) 0.19 H Myelocytes # (Manual) Nucleated RBCs 16 H APTT ABG pH ABG pCO2 ABG pO2 ABG HCO3 ABG Total CO2 ABG O2 Saturation Sodium Potassium Chloride 111 H Carbon Dioxide BUN 31 H Creatinine Glucose 118 H POC Glucose (mg/dL) 134 H Plasma Lactic Acid Blaine Calcium 8.3 L Magnesium Total Bilirubin AST ALT Alkaline Phosphatase Creatine Kinase Total Protein Albumin Urine Protein Urine Glucose (UA) Urine Ketones Urine Blood Urine RBC Urine Mucus Urine Opiates Screen U Marijuana (THC) Screen Crossmatch 02/27/20 07:40 WBC RBC Hgb Hct MCHC RDW Plt Count Neutrophils # Neutrophils # (Manual) Lymphocytes # (Manual) Monocytes # Monocytes # (Manual) Eosinophils # (Manual) Basophils # (Manual) Metamyelocytes # (Man) Myelocytes # (Manual) Nucleated RBCs APTT ABG pH 7.48 H ABG pCO2 ABG pO2 62 L ABG HCO3 28 H ABG Total CO2 29 H ABG O2 Saturation 92.0 L Sodium Potassium Chloride Carbon Dioxide BUN Creatinine Glucose POC Glucose (mg/dL) Plasma Lactic Acid Blaine Calcium Magnesium Total Bilirubin AST ALT Alkaline Phosphatase Creatine Kinase Total Protein Albumin Urine Protein Urine Glucose (UA) Urine Ketones Urine Blood Urine RBC Urine Mucus Urine Opiates Screen U Marijuana (THC) Screen Crossmatch Assessment and Plan Assessment: This is a 70-year-old gentleman with medical history of Afib, coronary artery disease status post CABG that presented to the emergency department on 02/17/2020 who fell off from a ladder and was brought in the emergency department and and was found to have left rib fractures from the third to the seventh, left-sided pneumothorax and splenic injury. Patient has left-sided chest tube. 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 ICU team held the sedation but unsuccessful since patient gets agitated. Neurology team is consulted because of his altered mental status. Toxic Metabolic Encephalopathy (hypocalcemia, mildly elevated LFT, anemia) as well encephalopathy due to underlying medical condition and ICU stay. Leukocytosis possibly due to pneumonia Acute ventilatory dependent respiratory failure Left rib fracture from the third to seventh from a fall. Left pneumothorax status post chest tube Splenic injury from a fall status post splenectomy Atrial fibrillation Plan: Repeat CT of the head that was ordered by the ICU and I reviewed it and no acute ischemia or any hemorrhage is seen. Pending final report from radiology. Because of the altered status I ordered ammonia level, TSH, vitamin B12, folate, ionized calcium. I also ordered a routine EEG. Regarding the patient leukocytosis if the source of infection is unknow consider lumbar puncture and empirically treating the patient with broad-spectrum antibiotic as well as the viral infection. we'll leave that to management to th e ID team who are on board. Also consider MRI the brain as well as the C-spine since the patient had hyperreflexia of all extremities. Can get MRI once patient is stable. Placed the patient on Thiamine 100 mg daily Thank you for the consult. Addendum: Preliminary routine EEG: There is no seizure activity seen. There is no interictal. There are moderate to severe encephalopathy of unspecified etiology. There is no neurology service over the weekend. Neurology can be reached via perfect serve if needed. Alhaji Bartlett M.D. Neuro-hospitalist Time with Patient: Greater than 30
--- NOTE | 2020-02-27 11:34 | CT ---
EXAMINATION TYPE: CT brain wo con DATE OF EXAM: 02/27/2020 HISTORY: mental status changes. CT DLP: 1988 mGycm. Automated Exposure Control for Dose Reduction was Utilized. TECHNIQUE: CT scan of the head is performed without contrast. COMPARISON: CT brain 02/17/2020 FINDINGS: There is no acute intracranial hemorrhage, midline shift, or mass effect identified. Diffuse volume l oss and redemonstrated patchy periventricular white matter hypodensities likely sequela of chronic mi crovascular ischemic change. The ventricles, sulci, and cisterns are normal in size and configuration. No extra-axial fluid collection. Bones and extracranial soft tissues are intact. The globes are gross ly symmetric. Visualized sinuses are clear. There is partial opacification of the mastoid air cells bilaterally which is new. IMPRESSION: 1. No acute intracranial hemorrhage, midline shift, or mass effect. 2. New partial opacification of the bilateral mastoid air cells, not seen on 02/17/2020 comparison. Cl inically correlate for possibility of mastoiditis.
--- NOTE | 2020-02-27 11:51 | CT ---
EXAMINATION TYPE: CT abdomen pelvis wo con DATE OF EXAM: 02/27/2020 COMPARISON: CT chest abdomen pelvis 02/17/2020 HISTORY: fever and mental status changes. CT DLP: 1989 mGycm Automated exposure control for dose reduction was used. TECHNIQUE: Helical acquisition of images was performed from the lung bases through the pelvis. CONTRAST: Performed without Oral Contrast and without intravenous contrast. FINDINGS: There is beam hardening artifact from patient's arms down by their sides. LUNG BASES: Left-sided chest tube with distal tip at the posterior lung base. There are tiny foci of residual pneumothorax within the anterior left lung base (304:14), significantly decreased from 2019 CT comparison. There is moderate right and small left pleural effusion. There is bibasilar airsp ronny opacities, left greater than right. LIVER: Normal attenuation. Not enlarged. BILIARY SYSTEM: No intrahepatic or extrahepatic biliary ductal dilatation. PANCREAS: Fatty atrophy. SPLEEN: Status post splenectomy. ADRENALS: No nodule. KIDNEYS: No hydronephrosis. BOWEL: Enteric tube distal tip and side-port within the stomach. No evidence of bowel obstruction or thickening. PERITONEUM: No free air is visualized. There is stranding within the left upper quadrant mesentery a nd left paracolic gutter. Trace perihepatic fluid. There is presacral stranding. No significant focal fluid collections. Left peritoneal herniorrhaphy changes. ADENOPATHY: No lymphadenopathy. PELVIS: Urinary bladder decompressed with Nolan catheter. VASCULATURE: No abdominal aortic aneurysm. Calcified atherosclerotic disease. MUSCULOSKELETAL: Left-sided moderately displaced fracture of rib 11, nondisplaced fractures of ribs 8, 6, and 5. Mid ventral abdominal cutaneous surgical ramonita. IMPRESSION: 1. Left-sided chest tube with tiny residual foci of left anterior basilar pneumothorax, significantly decreased from 02/17/2020 CT comparison. 2. New moderate right and small left pleural effusions. Increased bibasilar airspace opacities versus 02/17/2020 may represent atelectasis versus pneumonia. 3. Status post splenectomy with postsurgical inflammatory stranding and mesenteric edema. There is no significant abdominal focal fluid collection or abscess. 4. Left-sided rib fractures redemonstrated.
--- NOTE | 2020-02-27 11:58 | P.PN ---
Subjective Progress Note Date: 02/27/20 Principal diagnosis: Status post fall off ladder and significant trauma to chest and abdomen. This is a 69-year-old male patient who was working on his gutters when he fell off a 15 foot ladder. This was unwitnessed. He end up calling his who in turn called EMS and the patient was brought in to the emergency department. Upon arrival, the patient was hypotensive and he was in shock. The patient initial chest x-ray showed several left-sided fractures and small amount of subcutaneous air in addition to a left-sided pneumothorax. The x-ray of the pelvis showed no evidence of any fracture or dislocation. The CAT scan of the brain showed age-related atrophy and chronic small vessel ischemic changes without any acute intracranial process. CAT scan of cervical spine showed no acute abnormalities. On and has Been of the cervical spine was done and the bone and soft tissue windows showed no acute abnormalities. There was no evidence of any fracture. Along with multiple left-sided rib fractures third extending to the seventh rib. There was also spending the sedation with estimated grade 3 injury the patient. The patient's hemoglobin dropped to 10.5. The patient received a total of 2 L of IV fluid and 40 minutes of packed RBC. Morning hemoglobin today is At 13.4. The patient was taken to the operating room yesterday. The patient underwent a left-sided chest tube insertion. The patient also had splenectomy done and following that the patient was kept intubated on a mechanical ventilator and he was transferred to the intensive care unit. Note that the patient takes morphine outpatient basis and he has chronic pain and chronic narcotic requirements and on outpatient basis he takes morphine sulfate in the form of MS Contin 50 mg every 12 hours. Overnight, the patient was intubated on mechanical ventilator. He was sedated with a combination of propofol and he was also placed on morphine drip after being given several boluses control his pain. This morning, Profore is running at 70 mg per KG per minute. Morphine is running at 8 mg an hour. The patient is on normal saline at rate of 85 mL an hour. The patient has a left sided chest tube. Total amount of output is in order 110 mL of serosanguineous material without evidence of any air leak. The ventilator setting shows an assist- control mode rate of 20 with a tidal volume of 500 and FiO2 of 40% with a PEEP of 5. The patient's FiO2 is down to 40% overnight. The morning blood gases showed a pH of 7.4 with a pCO2 of 37 and pO2 of 121. The chest x-ray from this morning shows that the patient has an indwelling left-sided chest tube without any signs or pneumothorax. There is also a basilar pleural-based opacity along with multiple left-sided rib fractures and ET tube is in a good location. He is at approximately slightly swollen probably related to an infiltrated IV. He did not require any pressors. He remains hemodynamically stable. Lactic acid remains slightly elevated at 2.9 On 02/19/2020, the patient's seen for a follow-up. Earlier this morning, the patient was doing well and patient was well sedated on propofol at 70 g per KG per minute and morphine at 8 mg an hour. He was on a mechanical ventilator on assist control mode at the rate of 20 with a tidal volume of 500 and FiO2 of 40% with a PEEP of 5. His chest x-ray showed no acute abnormalities. There was no evidence of any pneumothorax. The patient left-sided chest tube in place. No evidence of any air leak. The chest x-ray showed multiple left-sided rib fractures, stable right medial basilar atelectasis, stable left basilar infiltrate/atelectasis. No other acute abdominal masses otherwise noted. As for the blood gases, the patient a pH of 7.49 with a pCO2 of 31 and pO2 of 84. The patient was hemodynamically stable on no pressors. Hemoglobin was stable at 11.6. Lactic acid level is improved. Based on this, the patient was given a sedation holiday. Initially he recovered nicely from this sedation. He was kept on morphine for pain control at a lower dose of 12 mg an hour. He was taken off the propofol. He was given as pertains breathing trial and he seemed to be quite comfortable and he was getting progressively more restless. At that point, I made decision to extubate the patient, and he was placed on oxygen by nasal cannula. The first 20-30 minutes, the patient did well post extubation. Subsequently, he became progressively more restless, agitated, he was having tremors and he was thrashing around. He was not following any commands. He became progressively more tachycardic. He went into atrial fibrillation with rapid ventricular response with a heart rate in the 180s. He became HYPERTENSIVE with systolic blood pressure went up to 200s. Based on all this, the patient was started on side effects drip for blood pressure control. I thought that the patient was withdrawing from alcohol. It's clear to me that the patient has a component of alcoholism and it was noted that the patient was intoxicated alcohol at time of admission. As such, he could have been in delirium tremens. He was given a total of 4 mg of Ativan without any major impr ovement. At that point, I decided to reintubate the patient. He was placed again on propofol and morphine drip was continued and he was intubated in the intensive care unit without any major difficulties. A triple lumen cath was also inserted. As for atrial fibrillation, the patient was started on amiodarone drip per protocol. Chest x-ray post intubation showed no acute abnormalities. She wasn't in that location. Triple lumen catheter was also in good location. NG tube was also be inserted. 02/20/2020, the patient is sedated on a mechanical ventilator. He failed extubation yesterday because of activity delirium tremens. He was restarted back on propofol running at 50, respiratory KG per minute and morphine at 6 mg an hour. He is also on normal saline at 0.9 percent at 100 mL an hour. He was running a lower blood pressure yesterday. He was given a bolus of IV fluids and a second bolus was given to him today. Both boluses are 1 L. The patient has converted back into normal sinus rhythm. Note that he was loaded with amiodarone yesterday and he was kept on amiodarone throughout the day and currently amiodarone is running at 0.5 mg per minute. A. fib RVR has recovered and the patient is back into normal sinus rhythm. He remains on a mechanical ventilator. He is an assist-control mode at the rate of 20 with a tidal volume of 500 and FiO2 40% with a PEEP of 5. A blood gas showed a pH of 7.48 with a pCO2 of 27 and pO2 of 97. The patient is afebrile. The patient has a clear abdominal wounds. The chest tube on the left is still in place without evidence of any air leak and output from the chest tube has been serosanguineous in order of 240 mL over the past 24 hours. Urine output is adequate. No other significant events overnight. On 02/21/2020 and seeing the patient for a follow-up in the intensive care unit. The patient is on a combination of propofol and morphine sulfate. Propofol is running at 55 g per KG pigmented emotional sulfate is 4 mg an hour. He is calm and comfortable. He is an assist-control mode at the rate of 20 with a tidal volume of 500 and a FiO2 of 40% with a PEEP of 5. His morning blood gases showed a pH of 7.45 with a pCO2 of 32 and pO2 129. Chest x-ray showing some limited atelectatic changes and infiltration of the lung bases. The patient's chest x-ray showed no evidence of any pneumothorax. The output from the left- sided chest tube is in the order of 10 25 mL over the past 24 hours and there is no evidence of any air leak. The patient is calm and comfortable. I'm going to give him a sedation holiday. I'm going to consider Precedex instead of propofol as an alternative sedative medication and assess the patient's underlying mental status. He is hemodynamically stable. He has required no pressors. He remains in sinus rhythm. Amiodarone is currently discontinued. Is tolerating his enteral feeding for nutritional support. 02/22/2020, the patient is being seen in follow-up. I tried to make an adjustment in the patient's sedation. I stopped the propofol yesterday and switch the patient to Precedex. I Do morphine sulfate. The patient did well for quite some time. Subsequently he became again agitated restless pulling on his tubes and it was very difficult to control his agitation. Based on that, I stopped the Precedex and put him back on propofol. Currently he is intubated on a mechanical ventilator and propofol is running at 60 mics of respiratory KG per minute and the patient is also morphine sulfate a 4 mg an hour. He is in a positive fluid balance and the patient would benefit from diuresis. He is on no pressors. Left-sided chest tube is in place and output is around 2 50 mL over the past 12 hours. There is no evidence of air leak. Chest x-ray showing bilateral pulmonary infiltrates slightly worse on the right. The patient remains on a mechanical ventilation. He is on assist-control at the rate of 20 with a tidal volume of 500 and FiO2 of 40% with a PEEP of 5. PH is at 7.4 with a pCO2 of 38 and pO2 of 100. He is taken his enteral feeding and he is receivi ng vital high protein at the rate of 30 mL an hour. No other complaints or issues for now. No fever. No chills. His blood pressure was somewhat elevated and he was briefly given Cleviprex for blood pressure control which is still running at 1 mg an hour and this will be weaned off. He remains on empiric antibiotic coverage with IV Zosyn. Repeat blood cultures came back negative. Patient was reevaluated today on 02/23/20, remains in the ICU, intubated and mechanically ventilated. His ventilator settings are assist control rate of 20 tidal volume of 500 FiO2 is 40% PEEP is 5. Peak airway pressure is 24 plateau pressure is 20. Patient remains on propofol at 70 mcg/kg/m morphine sulfate at 4 mg per hour IV fluid at KVO chest tube is at waterseal. No evidence of air leak. Chest x-ray showed slight improved aeration of the lungs at the bases bilaterally. Small bilateral pleural effusions and small areas of bibasilar opacities. Could be aspiration pneumonia related or could be atelectasis. Multiple left-sided displaced rib fractures are noted. ABG showed a pO2 of 73 pCO2 of 38 pH of 7.47 WBC count is 22.1 hemoglobin is 9.5. Basic metabolic profile is normal, renal profile is normal. Today I have suggested sedation holiday. And depending on how he does with a sedation holiday, may or may not proceed with a weaning trial. However the patient gets extremely agitated he will be back on propofol and not ready to wean. This will be decided upon depending on his clinical status off sedation. All meds were reviewed, patient remains on Zosyn for presumptive aspiration pneumonia. Reevaluated today on 02/24/20, remains in the ICU, intubated and mechanically ventilated. Ventilator settings are assist control rate of 20 tidal volume is 500 FiO2 is 40% PEEP of 5 ABG showed a pO2 of 67 pCO2 of 39 pH of 7.47 hence his FiO2 was increased to 45%. Patient remains on morphine at 2 mg/h propofol at 45 mcg/kg/m IV fluid at KVO patient is hemodynamically stable not requiring any pressors. He is in sinus rhythm. Chest tube remains in place, and it drained 370 mL of serous drainage over the last 24 hours. Tube feeding is progressing, patient is at 50 ML per hour/goal. My plan today is to hold sedation and narcotics, will start the patient on Precedex, and I plan to give the patient at least a weaning trial on Precedex. Chest x-ray and labs were all reviewed, ches t x-ray is suggestive of bilateral infiltrates, most likely aspiration pneumonia related. His WBC count seems to be on the rise today. However no clear-cut evidence of infection. Patient remains empirically on antibiotics Reevaluated today on 02/25/20, patient remains in the ICU, intubated and mec hanically ventilated. His ventilator settings are assist-control rate 20 tidal volume 500 FiO2 45% PEEP of 5 ABG showed a pO2 of 68 pCO2 of 43 pH of 7.43 patient developed atrial fibrillation with RVR last night, placed on amiodarone drip, remains on amiodarone drip at present, cardiology was consulted. Chest x- ray is showing worsening infiltrates and possibly some component of interstitial edema bilaterally. Hence one dose of Lasix was given today, and will continue to monitor the chest x-ray findings, I believe the findings are more or less related to aspiration pneumonia. Doubt congestive heart failure. Patient is on IV fluids at KVO propofol at 20 mcg/kg/m morphine sulfate 3 mg per hour. Trial of weaning has been attempted every day, however the patient gets extremely agitated of sedation, he was also agitated on Precedex when we took him off propofol and morphine. Clearly he is going to be a failure to wean, and has been so far. His was approached again today, and recommended tracheostomy and PEG tube placement. This was also discussed with the surgeon and he will discuss the procedures with the . Reevaluated today on 02/26/20, patient remains in the ICU, on mechanical ventilation, he is status post tracheostomy, postoperative day #1. Patient is on assist control rate of 20 tidal volume is 500 FiO2 45% PEEP of 5 ABG showed a pO2 of 71 pCO2 of 39 pH of 7.46. Remains on morphine sulfate which I cut it down to 1 mg/h, he is now temporarily off propofol to assess his mental status, and his IV amiodarone was switched to oral amiodarone to be given via nia ogastric tube. Chest x-ray continues to show bilateral infiltrates, right more so than left, suspect underlying aspiration pneumonia, remains on Zosyn. Patient is sedated, slightly agitated, opens eyes to verbal stimuli, but does not follow any verbal instructions. Patient had good urine output over the last 24 hours, and he is in a negative fluid balance. Left-sided chest tube drained about 150 mL over the last 24 hours. The fluid is mostly serosanguineous. Patient may have a PEG tube placement today, in the meantime he continues to have an orogastric tube in place. Patient is hemodynamically stable, remains in sinus rhythm. Reevaluated today on 02/27/20, remains in the ICU, intubated and mechanically ventilated. ABG showed a pO2 of 62 pCO2 of 38 pH of 7.48, ventilator settings are assist control rate of 20 tidal volume 500 FiO2 45% PEEP of 5 and his low pO2 I increased his FiO2 to 50% and increased PEEP to 8. Chest x-ray is showing worsening infiltrates especially in the right upper lobe. And he has a left perihilar infiltrate. This morning the patient was only on morphine at 2 mg per hour, and he was noted to be again agitated, thrashing in bed, and developed worsening atrial fibrillation with RVR, placed on Cardizem drip at 5 mg per hour. Considering the extreme agitation that I noted, recommended that the patient goes back on propofol, ordered a neurology consult on the patient, ordered CT of the head, and also recommended a CT of the abdomen and pelvis. Clearly the patient is not ready to be weaned or extubated at this point. Patient was seen by neurology, and it was felt that the patient may have metabolic toxic encephalopathy. Continues to have leukocytosis with WBC count of 18.9, and low-grade fever intermittently, CT of the abdomen is pending. Objective - Vital Signs Vital signs: Vital Signs Temp 100.9 F H 02/27/20 08:00 Pulse 91 02/27/20 09:00 Resp 25 H 02/27/20 09:00 BP 150/95 02/27/20 09:00 Pulse Ox 94 L 02/27/20 09:00 Intake & Output 02/26/20 02/27/20 02/27/20 18:59 06:59 18:59 Intake Total 0176.724 0934.155 296.495 Output Total 1030 870 160 Balance 125.950 263.155 136.495 Weight 90.1 kg Intake: IV 460 240 160 Piperacillin-Tazobactam 3 200 100 100 .375 gm In Sodium Chloride 0.9% 100 ml @ 25 mls/hr IVPB Q8HR [facility] Rx# :[id number] Sodium Chloride 0.9% 1, 260 140 60 000 ml @ 20 mls/hr IV . Q24H [facility] Rx#:[id number] Intake, IV Titration 415.950 413.155 76.495 Amount Diltiazem 125 mg In 126.625 124.333 Sodium Chloride 0.9% 100 ml @ Per Protocol IV .Q0M [facility] Rx#:[id number] Morphine Sulfate (100 mg/ 50.762 42.33 2 ml) 100 mg In Sodium Chloride 0.9% 100 ml @ 2 MG/HR 2.04 mls/hr IV . Q24H [facility] Rx#:[id number] Potassium Chloride 10 meq 100 100 In Water For Injection 1 100ml.bag @ 100 mls/hr IVPB Q1H [facility] Rx#: [id number] propofoL 1,000 mg In 138.563 146.492 76.495 Empty Bag 1 bag @ Titrate IV .Q0M [facility] Rx#: [id number] Oral 100 Tube Feeding 180 330 60 Other 150 Output: Chest Tube Drainage 110 Chest Tube Left Upper 110 Lateral Chest Urine 920 870 160 Other: Voiding Method Indwelling Catheter Indwelling Catheter Indwelling Catheter ABP, PAP, CO, CI - Last Documented Arterial Blood Pressure 111/102 - Exam Physical Exam: Revealed a 69-year-old white male, sedated, mechanically ventilated, in no distress. Noted to be extremely agitated off propofol. Head: Atraumatic, normocephalic, tracheostomy is intact, and orogastric tube is in place. HEENT:[Neck is supple.] [No neck masses.] [No thyromegaly.] [No JVD.] PERRLA, EOMI, no icterus. Chest: Symmetrical chest expansion, crackles and rhonchi bilaterally.. Left sided chest tube is noted. Serosanguineous drainage noted. Cardiac Exam: Distant S1 and S2, no S3 gallop. No murmur. Abdomen: [Soft, nontender, no megaly, no rebound, no guarding, normal bowel sounds.] Extremities: No clubbing, edema or cyanosis. Good pulses bilaterally. Neurological Exam: Pupils are equally reactive to light, opens eyes to verbal stimuli, however not following any instructions. No gaze deviation noted. Reflexes brisk bilaterally. Psychiatric: Could not be assessed Musculoskeletal: Good muscle tone, otherwise could not be assessed, no deformities. - Labs CBC & Chem 7: 02/27/20 05:45 02/27/20 05:45 Labs: Abnormal Lab Results - Last 24 Hours (Table) 02/26/20 02/27/20 02/27/20 Range/Units 18:18 00:53 05:45 WBC 18.9 H (3.8-10.6) k/uL RBC 3.04 L (4.30-5.90) m/uL Hgb 8.5 L (13.0-17.5) gm/dL Hct 27.1 L (39.0-53.0) % RDW 15.6 H (11.5-15.5) % Plt Count 578 H (150-450) k/uL Neutrophils # (Manual) 16.20 H (1.3-7.7) k/uL Eosinophils # (Manual) 0.76 H (0-0.7) k/uL Metamyelocytes # (Man) 0.19 H (0) k/uL Nucleated RBCs 16 H (0-0) /100 WBC ABG pH (7.35-7.45) ABG pO2 (83-108) mmHg ABG HCO3 (21-25) mmol/L ABG Total CO2 (19-24) mmol/L ABG O2 Saturation (94-97) % Chloride (98-107) mmol/L BUN (9-20) mg/dL Glucose (74-99) mg/dL POC Glucose (mg/dL) 128 H 118 H (75-99) mg/dL Calcium (8.4-10.2) mg/dL 02/27/20 02/27/20 02/27/20 Range/Units 05:45 06:21 07:40 WBC (3.8-10.6) k/uL RBC (4.30-5.90) m/uL Hgb (13.0-17.5) gm/dL Hct (39.0-53.0) % RDW (11.5-15.5) % Plt Count (150-450) k/uL Neutrophils # (Manual) (1.3-7.7) k/uL Eosinophils # (Manual) (0-0.7) k/uL Metamyelocytes # (Man) (0) k/uL Nucleated RBCs (0-0) /100 WBC ABG pH 7.48 H (7.35-7.45) ABG pO2 62 L (83-108) mmHg ABG HCO3 28 H (21-25) mmol/L ABG Total CO2 29 H (19-24) mmol/L ABG O2 Saturation 92.0 L (94-97) % Chloride 111 H (98-107) mmol/L BUN 31 H (9-20) mg/dL Glucose 118 H (74-99) mg/dL POC Glucose (mg/dL) 134 H (75-99) mg/dL Calcium 8.3 L (8.4-10.2) mg/dL Microbiology - Last 24 Hours (Table) 02/26/20 15:10 Catheter Tip Culture - Preliminary Catheter Tip 02/22/20 17:22 Blood Culture - Preliminary Blood No Growth after 96 hours 02/20/20 15:47 Blood Culture - Final Blood No Growth after 144 hours 02/20/20 16:22 Blood Culture - Final Blood No Growth after 144 hours Assessment and Plan Assessment: Impression: Status post fall off a ladder with trauma to chest and abdomen. 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 No air leak, continues to have serosanguineous drainage. Acute hemorrhagic shock on presentation. Acute blood loss anemia and patient received a total of 4 units of packed RBCs since admission. Acute hypoxic respiratory failure secondary to extreme agitation and delirium tremors requiring sedation, and detoxification, there is also possibly a component of aspiration pneumonia as noted on the chest x-ray. Chronic neck pain, patient is maintained chronically on MS Contin Coronary artery disease and previous CABG Dyslipidemia Paroxysmal atrial fibrillation presently in normal sinus rhythm. New onset atrial fibrillation with RVR, converted with amiodarone drip. Failure to wean, status post tracheostomy on 02/25/20. Toxic metabolic encephalopathy, acute. Status post PICC line placement postoperatively #1. Recommendation: Continue ventilatory support, resume patient on propofol. Neurological consultation. CT of the head. CT of the abdomen and pelvis. Continue Cardizem drip. Cardiology is addressing his oral amiodarone. Continue GI and DVT prophylaxis. Continue enteral feeding Continue IV Zosyn, repeat sputum cultures were ordered. Continue chest tube in place for now Remains critically ill, critical care time is 33 minutes Time with Patient: Greater than 30
[2020-02-27 12:11] LABS: Glucose,Whole Blood 156 mg/dL (75-99)
--- NOTE | 2020-02-27 14:01 | PN ---
PROGRESS NOTE This patient is in ICU. Mr. Boyer is a gentleman with a history of fall, splenic rupture, paroxysmal atrial fibrillation, CAD and prior bypass surgery. He has been in and out of atrial fibrillation. I am recommending that we continue amiodarone 200 mg b.i.d. through the NG tube and also use Cardizem drip if he goes into atrial fib. At this time, he is in atrial fib, rate is controlled, hemodynamically stable. He is on a small dose of Cardizem. Will continue the same. Vitals are stable. Patient is still on a vent, S1-S2 heard normally, regular rhythm noted. Short systolic murmur noted. Lungs reveal diminished air entry. Rest of physical exam unchanged. MMODL / IJN: [id number] /
--- NOTE | 2020-02-27 15:05 | P.PN ---
Subjective Progress Note Date: 02/27/20 Principal diagnosis: 69-year-old male was cleaning gutters fell from skin feet ladder was brought into emergency department found to have several left-sided fractures left-sided pneumothorax with a left-sided chest tube presently patient is presently intubated patient has multiple left-sided fractures from third to seventh rib patient also had a splenectomy for splenic injury. Patient is presently sedated with propofol and also morphine drip patient is presently on ventilatory support blood gases showed normal pH pCO2 and pO2 are within normal limits as well patient is presently onZosyn patient had lactic acidosis secondary tolactated Ringer's. Patient is hyperchloremic because of which probably will start him on half-normal saline. 02/19/2020 Patient is expected today and shortly after that patient didn't tolerate that and patient ended up undergoing an atrial fibrillation patient was started on amiodarone patient was subsequently reintubated. Patient is bit hyponatremic because of extensive switching the IV fluids to normal saline instead of half- normal saline. Patient is also getting amiodarone. D5 water. Patient is not requiring any pressors at this time. Please refer to intensive is documentation for further details of ventilator settings. 02/20/2020 Patient developed ongoing trial patient is having sedation vacation patient heart rate is better controlled patient overall clinical condition is bit better today 02/21/2020 Patient still in the ICU, he is intubated and sedated. Chest tube is in place and it hasn't output about 325 in 24 hours, propofol was switched to Paradox by critical care team. Pulmonary/critical care troponin measuring the event, sugar was low but most likely this is a false reading because patient is edematous. Surgical wound in the middle of the abdomen it looks clean and dry and closed. Patient is getting IV morphine. Creatinine and electrolytes are normal. Echocardiogram showing ejection fraction of 55-60% with moderate to severe mitral regurgitation His WBCs 17.3 K. Liver enzymes are trending down 02/22/2020 Patient the ICU, he could not tolerate the current sedative and he had to be placed back on the propofol, he got agitated overnight and he needed restraints. These making about 1 5200 mL of chest tube drainage every 12 hours Lasix is added. Also he had low-grade temperature and mild increase in WBC, he still on Zosyn and IV on the case. Cultures are negative so far 02/23/2020 Patient remains in the ICU, intubated and sedated on a propofol, he looks calm. Patient undergoing sedation holiday and pulmonary team managing his vent He still has low-grade fever 99.7, leukocytosis or interrupted 22K. BMP is unremarkable. Cultures are negative so far, infectious disease and pulmona ry/critical care team on the case. Chest x-ray showing unchanged radiographic appearance of tubes and lines, mildly improved aeration of bilateral lung bases with persistent small bilateral pleural effusions and bibasilar air space opacity and multiple left-sided displaced rib fractures Currently he is on Zosyn 02/24/2020 Patient still intubated and sedated, he undergoing sedation holiday and he wakes up then to be breathing trial Patient is improving on Zosyn, no fever however culture are negative. Patient is still getting intermittent feeding. Chest tube still on the left side with about 150-200 mL of discharge every 12 hour period , surgery team on the case patient may need a PEG tube and tracheostomy if he fails a voiding trial 02/24 Patient remains in the ICU intubated and sedated, despite being on Precedex. Today he developed A. fib with RVR, he has history of A. fib. before, he Is currently not on anticoagulation other than DVT prophylaxis with Lovenox due to his hematoma. Patient was started on amiodarone drip, his rate is controlled, is controlled. Computed tomography scan of the abdomen is requested to assess his hematoma. He still has fever at 100.1 Hemoglobin is 8.8, which is stable compared to yesterday. PH normal 7.4 with normal pCO2 at 43 and low pO2 at 68, BMP is unremarkable and sugar is controlled. Surgical team were consulted for possible PEG and tracheostomy Prognosis remains very guarded. 02/26/20 Patient still on ventilation, he got tracheostomy yesterday and hysterectomy that well. Sedation is off however patient is restless and agitated, however patient does not follow, He developed another atrial fibrillation with rapid rate and he was started on amiodarone drip at 0.5. Cardizem may be added as well. Cardiology of the case Surgery team are following the patient for possible PEG placement. Possibly today. Patient remains on Zosyn, amiodarone, which can be switched to oral per Soaker Soda Worker and Cardizem as needed Review of systems: N/a 02/27/2020 Patient is seen and evaluated in follow-up and currently remains in the ICU being closely monitored. Patient recently underwent tracheostomy placement and currently remains on mechanical ventilation. Patient underwent a brain CT showing no acute intracranial hemorrhage, midline shift, or mass effect, with new partial opacification of bilateral mastoid air cells with the possibility of mastoiditis. Patient also underwent CT of the abdomen and pelvis showing left-sided chest tube with tiny residual foci of left anterior basilar pneumothorax significantly decreased from 02/17/2020, new moderate right and small left pleural effusion with increased bibasilar airspace opacities that may represent atelectasis versus pneumonia, status post splenectomy and postsurgical inflammatory stranding and mesenteric edema with no significant abdominal focal fluid collection or abscess noted, and left-sided rib fractures redemonstrated as previously seen. Patient continues to get agitated and restless and not following commands when off of sedation so per accounts payable assistant no attempts at weaning today and will continue with sedation and neurology is being consulted. Patient continues to be in and out of atrial fibrillation with RVR and currently on a Cardizem drip and cardiology is following closely. Patient is also maintained on IV Zosyn and will continue at this time. Review of systems: Unable to obtain given patient's current clinical status and patient remains sedated and intubated. Objective - Vital Signs Vital signs: Vital Signs Temp 99.7 F H 02/27/20 12:00 Pulse 84 02/27/20 12:00 Resp 26 H 02/27/20 12:00 BP 118/59 02/27/20 12:00 Pulse Ox 98 02/27/20 12:00 Intake & Output 02/26/20 02/27/20 02/27/20 18:59 06:59 18:59 Intake Total 6357.398 0743.155 451.901 Output Total 1030 870 350 Balance 125.950 263.155 101.901 Weight 90.1 kg Intake: IV 460 240 220 Piperacillin-Tazobactam 3 200 100 100 .375 gm In Sodium Chloride 0.9% 100 ml @ 25 mls/hr IVPB Q8HR [facility] Rx# :[id number] Sodium Chloride 0.9% 1, 260 140 120 000 ml @ 20 mls/hr IV . Q24H [facility] Rx#:[id number] Intake, IV Titration 415.950 413.155 81.901 Amount Diltiazem 125 mg In 126.625 124.333 Sodium Chloride 0.9% 100 ml @ Per Protocol IV .Q0M [facility] Rx#:[id number] Morphine Sulfate (100 mg/ 50.762 42.33 2 ml) 100 mg In Sodium Chloride 0.9% 100 ml @ 2 MG/HR 2.04 mls/hr IV . Q24H [facility] Rx#:[id number] Potassium Chloride 10 meq 100 100 In Water For Injection 1 100ml.bag @ 100 mls/hr IVPB Q1H [facility] Rx#: [id number] propofoL 1,000 mg In 138.563 146.492 81.901 Empty Bag 1 bag @ Titrate IV .Q0M [facility] Rx#: [id number] Oral 100 Tube Feeding 180 330 150 Other 150 Output: Chest Tube Drainage 110 Chest Tube Left Upper 110 Lateral Chest Urine 920 870 350 Other: Voiding Method Indwelling Catheter Indwelling Catheter Indwelling Catheter ABP, PAP, CO, CI - Last Documented Arterial Blood Pressure 111/102 - Exam GENERAL: The patient is intubated and sedated HEENT: Pupils are round and equally reacting to light. EOMI. No scleral icterus. No conjunctival pallor. Normocephalic, atraumatic. No pharyngeal erythema. No thyromegaly. CARDIOVASCULAR: S1 and S2 present. No murmurs, rubs, or gallops. PULMONARY: Diminished breath sounds bilaterally with some scattered rhonchi noted. Left-sided chest tube midline vertical surgical wound is clean and dry and closed ABDOMEN: Soft, nontender, nondistended, normoactive bowel sounds. No palpable organomegaly. MUSCULOSKELETAL: No joint swelling or deformity. EXTREMITIES: No cyanosis, clubbing, or pedal edema. NEUROLOGICAL: Gross neurological examination did not reveal any focal deficits. While off sedation patient continues to be restless and agitated and not following commands. SKIN: No rashes. no petechiae. - Labs CBC & Chem 7: 02/27/20 05:45 02/27/20 05:45 Labs: Abnormal Lab Results - Last 24 Hours (Table) 02/26/20 02/27/20 02/27/20 Range/Units 18:18 00:53 05:45 WBC 18.9 H (3.8-10.6) k/uL RBC 3.04 L (4.30-5.90) m/uL Hgb 8.5 L (13.0-17.5) gm/dL Hct 27.1 L (39.0-53.0) % RDW 15.6 H (11.5-15.5) % Plt Count 578 H (150-450) k/uL Neutrophils # (Manual) 16.20 H (1.3-7.7) k/uL Eosinophils # (Manual) 0.76 H (0-0.7) k/uL Metamyelocytes # (Man) 0.19 H (0) k/uL Nucleated RBCs 16 H (0-0) /100 WBC ABG pH (7.35-7.45) ABG pO2 (83-108) mmHg ABG HCO3 (21-25) mmol/L ABG Total CO2 (19-24) mmol/L ABG O2 Saturation (94-97) % Chloride (98-107) mmol/L BUN (9-20) mg/dL Glucose (74-99) mg/dL POC Glucose (mg/dL) 128 H 118 H (75-99) mg/dL Calcium (8.4-10.2) mg/dL 02/27/20 02/27/20 02/27/20 Range/Units 05:45 06:21 07:40 WBC (3.8-10.6) k/uL RBC (4.30-5.90) m/uL Hgb (13.0-17.5) gm/dL Hct (39.0-53.0) % RDW (11.5-15.5) % Plt Count (150-450) k/uL Neutrophils # (Manual) (1.3-7.7) k/uL Eosinophils # (Manual) (0-0.7) k/uL Metamyelocytes # (Man) (0) k/uL Nucleated RBCs (0-0) /100 WBC ABG pH 7.48 H (7.35-7.45) ABG pO2 62 L (83-108) mmHg ABG HCO3 28 H (21-25) mmol/L ABG Total CO2 29 H (19-24) mmol/L ABG O2 Saturation 92.0 L (94-97) % Chloride 111 H (98-107) mmol/L BUN 31 H (9-20) mg/dL Glucose 118 H (74-99) mg/dL POC Glucose (mg/dL) 134 H (75-99) mg/dL Calcium 8.3 L (8.4-10.2) mg/dL 02/27/20 Range/Units 12:09 WBC (3.8-10.6) k/uL RBC (4.30-5.90) m/uL Hgb (13.0-17.5) gm/dL Hct (39.0-53.0) % RDW (11.5-15.5) % Plt Count (150-450) k/uL Neutrophils # (Manual) (1.3-7.7) k/uL Eosinophils # (Manual) (0-0.7) k/uL Metamyelocytes # (Man) (0) k/uL Nucleated RBCs (0-0) /100 WBC ABG pH (7.35-7.45) ABG pO2 (83-108) mmHg ABG HCO3 (21-25) mmol/L ABG Total CO2 (19-24) mmol/L ABG O2 Saturation (94-97) % Chloride (98-107) mmol/L BUN (9-20) mg/dL Glucose (74-99) mg/dL POC Glucose (mg/dL) 156 H (75-99) mg/dL Calcium (8.4-10.2) mg/dL Microbiology - Last 24 Hours (Table) 02/26/20 15:10 Catheter Tip Culture - Preliminary Catheter Tip 02/22/20 17:22 Blood Culture - Preliminary Blood No Growth after 96 hours 02/20/20 15:47 Blood Culture - Final Blood No Growth after 144 hours 02/20/20 16:22 Blood Culture - Final Blood No Growth after 144 hours Assessment and Plan Assessment: - Fall from ladder with trauma to chest and abdomen with traumatic hydro- pneumothorax , status post chest tube -Splenic injury status post splenectomy, postoperative day 8. -Acute ventilatory dependent respiratory failure hypoxic secondary to polytrauma, pneumothorax and splenic injury, continue with the ventilatory support and wean off as tolerated. Recent tracheostomy placement -A. fib with RVR -Traumatic left-sided rib fractures, alert to 7 -hyponatremia: Secondary to half-normal saline was switched to normal saline, approved, current sodium is 143 -Hemorrhagic shock on admission which improved patient received 4 units of PRBC transfusion presently hemodynamically stable is not requiring any pressors -acute blood loss anemia from polytrauma pneumoperitoneum -history of carotid artery disease with previous bypass surgery -Hyperlipidemia -Benign prostatic hypertrophy -DVT prophylaxis: Subcutaneous Lovenox Plan: Continue current medications, management, and symptomatic treatment. Patient is maintained on IV Zosyn and will continue at this time. Will continue to monitor vital signs and labs closely. Patient continues to be in and out of atrial fibrillation with RVR and is currently maintained on a Cardizem drip. Multiple medical consultations including cardiology are following. Neurology also consulted recommending possible MRI if patient can tolerate. Will repeat a.m. labs. Will continue to follow along closely with surgery. Further recommendations to follow based on patient's clinical course. Due to multiple complex medical issues, prognosis is guarded. Thank you for this consultation and will continue to follow along closely with you during hospitalization.
[2020-02-27] MEDS: CLEVIDIPINE BUTYRATE 25 MG in EMPTY BAG 1 BAG IV SCH (15:17)
[2020-02-27] MEDS: THIAMINE 100 MG TAB PO SCH (15:19)
--- NOTE | 2020-02-27 15:26 | P.PN ---
Subjective Progress Note Date: 02/27/20 CHIEF COMPLAINT: Fall with Trauma HISTORY OF PRESENT ILLNESS: Patient seen with Dr. Ivy. This is a 69-year-old male who fell 15 feet off the top of the ladder. Patient's CAT scan was performed showing a large left pneumothorax as well as multiple rib fractures and hemoperitoneum and a ruptured spleen. Patient is status post splenectomy. He is on antibiotics. Patient is status post tracheostomy p lacement due to his respiratory failure and unable to wean from vent. PEG tube placement was canceled yesterday. Computed tomography scan of the abdomen completed due to fevers showing postsplenectomy. No evidence of significant abdominal focal fluid collection or abscess. Patient's still having fevers T- max 101.7. This morning temp 99.4 WBC is 18.9 hemoglobin 8.5. He was placed back on the Profore due to his agitation. He also had A. fib with RVR and has been placed on Cardizem drip. PHYSICAL EXAM: VITAL SIGNS: Reviewed. GENERAL: Well-developed in no acute distress. HEENT: No sclera icterus. Extraocular movements grossly intact. Moist buccal mucosa. Head is atraumatic, normocephalic. Trach site clean dry and intact ABDOMEN: Soft. Nondistended. Incision site clean dry and intact NEUROLOGIC: Patient is sedated ASSESSMENT: 1. 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 2. Status post tracheostomy for respiratory failure 3. Status post fall off a ladder with, to chest and abdomen 4. Left-sided pneumothorax has chest tube in place 5. Multiple left-sided rib fractures 6. Alcohol intoxication 7. Acute hypoxic ventilatory dependent respiratory failure. 8. Chronic pain medication 9. Absolute atrial fibrillation with rapid ventricular response PLAN: -PEG tube placement was canceled. Patient will be reevaluated in a couple a days for possible PEG tube insertion. -Resume tube feedings -Continue ICU management -Continue IV fluids -On IV antibiotics -Patient consulting physicians recommendations. -lovenox for DVT prophylaxis Physician Clinical Associate note has been reviewed by physician. Signing provider agrees with the documented findings, assessment, and plan of care. Objective - Vital Signs Vital signs: Vital Signs Temp 99.7 F H 02/27/20 12:00 Pulse 84 02/27/20 12:00 Resp 26 H 02/27/20 12:00 BP 118/59 02/27/20 12:00 Pulse Ox 98 02/27/20 12:00 Intake & Output 02/26/20 02/27/20 02/27/20 18:59 06:59 18:59 Intake Total 0601.620 8274.155 534.433 Output Total 1030 870 350 Balance 125.950 263.155 184.433 Weight 90.1 kg Intake: IV 460 240 220 Piperacillin-Tazobactam 3 200 100 100 .375 gm In Sodium Chloride 0.9% 100 ml @ 25 mls/hr IVPB Q8HR [facility] Rx# :[id number] Sodium Chloride 0.9% 1, 260 140 120 000 ml @ 20 mls/hr IV . Q24H [facility] Rx#:[id number] Intake, IV Titration 415.950 413.155 164.433 Amount Diltiazem 125 mg In 126.625 124.333 Sodium Chloride 0.9% 100 ml @ Per Protocol IV .Q0M [facility] Rx#:[id number] Morphine Sulfate (100 mg/ 50.762 42.33 2 ml) 100 mg In Sodium Chloride 0.9% 100 ml @ 2 MG/HR 2.04 mls/hr IV . Q24H [facility] Rx#:[id number] Potassium Chloride 10 meq 100 100 In Water For Injection 1 100ml.bag @ 100 mls/hr IVPB Q1H [facility] Rx#: [id number] propofoL 1,000 mg In 138.563 146.492 164.433 Empty Bag 1 bag @ Titrate IV .Q0M [facility] Rx#: [id number] Oral 100 Tube Feeding 180 330 150 Other 150 Output: Chest Tube Drainage 110 Chest Tube Left Upper 110 Lateral Chest Urine 920 870 350 Other: Voiding Method Indwelling Catheter Indwelling Catheter Indwelling Catheter ABP, PAP, CO, CI - Last Documented Arterial Blood Pressure 111/102 - Labs CBC & Chem 7: 02/27/20 05:45 02/27/20 05:45 Labs: Abnormal Lab Results - Last 24 Hours (Table) 02/26/20 02/27/20 02/27/20 Range/Units 18:18 00:53 05:45 WBC 18.9 H (3.8-10.6) k/uL RBC 3.04 L (4.30-5.90) m/uL Hgb 8.5 L (13.0-17.5) gm/dL Hct 27.1 L (39.0-53.0) % RDW 15.6 H (11.5-15.5) % Plt Count 578 H (150-450) k/uL Neutrophils # (Manual) 16.20 H (1.3-7.7) k/uL Eosinophils # (Manual) 0.76 H (0-0.7) k/uL Metamyelocytes # (Man) 0.19 H (0) k/uL Nucleated RBCs 16 H (0-0) /100 WBC ABG pH (7.35-7.45) ABG pO2 (83-108) mmHg ABG HCO3 (21-25) mmol/L ABG Total CO2 (19-24) mmol/L ABG O2 Saturation (94-97) % Chloride (98-107) mmol/L BUN (9-20) mg/dL Glucose (74-99) mg/dL POC Glucose (mg/dL) 128 H 118 H (75-99) mg/dL Calcium (8.4-10.2) mg/dL 02/27/20 02/27/20 02/27/20 Range/Units 05:45 06:21 07:40 WBC (3.8-10.6) k/uL RBC (4.30-5.90) m/uL Hgb (13.0-17.5) gm/dL Hct (39.0-53.0) % RDW (11.5-15.5) % Plt Count (150-450) k/uL Neutrophils # (Manual) (1.3-7.7) k/uL Eosinophils # (Manual) (0-0.7) k/uL Metamyelocytes # (Man) (0) k/uL Nucleated RBCs (0-0) /100 WBC ABG pH 7.48 H (7.35-7.45) ABG pO2 62 L (83-108) mmHg ABG HCO3 28 H (21-25) mmol/L ABG Total CO2 29 H (19-24) mmol/L ABG O2 Saturation 92.0 L (94-97) % Chloride 111 H (98-107) mmol/L BUN 31 H (9-20) mg/dL Glucose 118 H (74-99) mg/dL POC Glucose (mg/dL) 134 H (75-99) mg/dL Calcium 8.3 L (8.4-10.2) mg/dL 02/27/20 Range/Units 12:09 WBC (3.8-10.6) k/uL RBC (4.30-5.90) m/uL Hgb (13.0-17.5) gm/dL Hct (39.0-53.0) % RDW (11.5-15.5) % Plt Count (150-450) k/uL Neutrophils # (Manual) (1.3-7.7) k/uL Eosinophils # (Manual) (0-0.7) k/uL Metamyelocytes # (Man) (0) k/uL Nucleated RBCs (0-0) /100 WBC ABG pH (7.35-7.45) ABG pO2 (83-108) mmHg ABG HCO3 (21-25) mmol/L ABG Total CO2 (19-24) mmol/L ABG O2 Saturation (94-97) % Chloride (98-107) mmol/L BUN (9-20) mg/dL Glucose (74-99) mg/dL POC Glucose (mg/dL) 156 H (75-99) mg/dL Calcium (8.4-10.2) mg/dL Microbiology - Last 24 Hours (Table) 02/26/20 15:10 Catheter Tip Culture - Preliminary Catheter Tip 02/22/20 17:22 Blood Culture - Preliminary Blood No Growth after 96 hours 02/20/20 15:47 Blood Culture - Final Blood No Growth after 144 hours 02/20/20 16:22 Blood Culture - Final Blood No Growth after 144 hours
[2020-02-27] MEDS ORDERED: VANCOMYCIN IV PER PHARMACY 1 EACH MISC MISCELLANE PRN (15:58)
--- NOTE | 2020-02-27 16:01 | EEG ---
ELECTROENCEPHALOGRAM REPORT DATE OF SERVICE: 02/27/2020 CLINICAL HISTORY: This is a 70-year-old gentleman with a reported medical history of atrial fibrillation that presented to the ED on 02/17/2020 after a fall from a ladder. As a result, he suffered a left pneumothorax, left hip fracture, and the patient continues to be altered in mentation. This video EEG was obtained to evaluate for seizure and epileptiform activity. RELEVANT MEDICATION: Propofol drip. EEG TYPE: EEG type is a routine 21 channel EEG was performed with video using the 10-20 electrode placement system. DESCRIPTION: The patient has a trach on a ventilator and on sedation. The background consists of diffuse 0.5-1.5, nonrhythmic delta activity over the bilateral hemisphere. There is no clear posterior dominant rhythm seen. Very rare. Patient had stage 2 sleep, poorly formed stage 2 sleep. There is excessive fast activity seen throughout the study. Interictal and ictal is none. ACTIVATION PROCEDURE: Photic stimulation did evoke a posterior driving response, predominantly over the left. Hyperventilation was not performed because of the patient's clinical history. EEG DIAGNOSIS: This is an abnormal EEG due to diffuse background slowing as well as excessive beta activity. CLINICAL INTERPRETATION: This is an abnormal routine EEG. The EEG suggestive of moderate to severe encephalopathy of unspecified etiology. There is no focal slowing noted. There is no interictal or seizure activity seen during this EEG. The excessive fast activity is due to medication effect. Clinical correlation is recommended. CARLIE / DENIS: [id number] / MTDD
[2020-02-27] MEDS ORDERED: VANCOMYCIN 1,750 MG in SODIUM CHLORIDE 0.9% 500 ML 500 ML IVPB ONE (16:15)
--- NOTE | 2020-02-27 17:22 | PN ---
PROGRESS NOTE DATE OF SERVICE: 02/27/2020 REASON FOR FOLLOWUP: 1. Fever, leukocytosis and a question of pneumonia. 2. Post splenectomy. INTERVAL HISTORY: The patient has been running a fever of 100.9 to 100.7. The patient is currently hemodynamically stable. The patient's FiO2 is currently stable, down to 45%, status post trach. Tolerating his tube feeds. No diarrhea or any other changes reported by the nursing staff. PHYSICAL EXAMINATION: Blood pressure 120/61 with a pulse of 85, temperature 99.7. He is 98% on 45% FiO2. General description is an elderly male lying in bed in no distress. RESPIRATORY SYSTEM: Unlabored breathing with decreased breath sounds at the base. No wheeze. HEART: S1, S2. Regular rate and rhythm. ABDOMEN: Soft. No tenderness. LABS/IMAGING: Hemoglobin 8.5, white count 18.9, BUN of 31, creatinine 0.82. The patient did have a CT of abdomen and pelvis with a question of pneumonia. DIAGNOSTIC IMPRESSION AND PLAN: Patient with a fever and leukocytosis in this patient with a history of trauma, status post splenectomy and a chest tube on the left side with some question of a pneumonia on the CT. Patient's fever and white count are responding to Zosyn. Will switch antibiotic therapy to cefepime and vancomycin and will monitor his clinical course closely. MMODL / IJN: [id number] /
[2020-02-27 18:16] LABS: Glucose,Whole Blood 115 mg/dL (75-99)
[2020-02-27] MEDS: TAMSULOSIN 0.4 MG CAP.ER.24H PO SCH (21:24)
[2020-02-27] MEDS: FINASTERIDE 5 MG TAB PO SCH (21:33)
[2020-02-27] MEDS: ATORVASTATIN 20 MG TAB PO SCH (21:33)
[2020-02-27] MEDS: CEFEPIME 2 GM in SODIUM CHLORIDE 0.9% 100 ML IVPB SCH (21:33)
[2020-02-28 00:02] LABS: Glucose,Whole Blood 144 mg/dL (75-99)
[2020-02-28] MEDS: INSULIN ASPART (NovoLOG) 100 UNIT/ML VIAL SQ SCH ×5 (00:13→23:33)
[2020-02-28 05:37] LABS: Ionized Calcium 5.3 mg/dL (4.5-5.3)
[2020-02-28 05:53] LABS: African American GFR (CKD) >90 (>60 ml/min/1.73 sqM); Anion Gap 3 mmol/L; Blood Urea Nitrogen 35 mg/dL (9-20); Calcium 8.6 mg/dL (8.4-10.2); Carbon Dioxide 28 mmol/L (22-30); Chloride 114 mmol/L (98-107); Glucose 109 mg/dL (74-99); Non-African American GFR(CKD) 88 (>60 ml/min/1.73 sqM); Potassium 3.7 mmol/L (3.5-5.1); Sodium 145 mmol/L (137-145)
[2020-02-28] MEDS: MORPHINE SULFATE (100 MG/2 ML) 100 MG in SODIUM CHLORIDE 0.9% 100 ML IV SCH ×2 (05:58→18:21)
[2020-02-28] MEDS: VANCOMYCIN 1,750 MG in SODIUM CHLORIDE 0.9% 500 ML 500 ML IVPB SCH ×2 (06:14→18:26)
[2020-02-28 06:19] LABS: Hypochromasia Marked; MCHC 30.7 g/dL (31.0-37.0); Mean Platelet Volume 10.6; Platelet Count 585 k/uL (150-450); Poikilocytosis Slight; RBC 2.86 m/uL (4.30-5.90); RDW 15.7 % (11.5-15.5)
[2020-02-28 06:37] LABS: Band Neutrophils % 9 %; Metamyelocytes % 6 %; Myelocytes % 4 %; Neutrophils % (M) 69 %; Nucleated Red Blood Cells 13 /100 WBC (0-0); Total Cells Counted 200
[2020-02-28 06:38] LABS: Eosinophils # (M) 1.38 k/uL (0-0.7); Lymphocytes # (M) 0.59 k/uL (1.0-4.8); Metamyelocytes # (M) 1.18 k/uL (0); Monocytes # (M) 0.59 k/uL (0-1.0); Myelocytes # (M) 0.79 k/uL (0); WBC 19.7 k/uL (3.8-10.6)
[2020-02-28 06:39] LABS: Anisocytosis (M) Present; Poikilocytosis (M) Present; Polychromasia Present; Target Cells Present
[2020-02-28 06:40] LABS: Large Platelets Present
[2020-02-28 06:54] LABS: Glucose,Whole Blood 138 mg/dL (75-99)
[2020-02-28 07:29] LABS: ABG Base Excess 5.5 mmol/L; ABG HCO3 30 mmol/L (21-25); ABG Oxygen Saturation 95.6 % (94-97); ABG PCO2 44 mmHg (35-45); ABG PH 7.44 (7.35-7.45); ABG PO2 79 mmHg (83-108); ABG TCO2 31 mmol/L (19-24); Allen Test Performed? Yes
[2020-02-28] MEDS ORDERED: POTASSIUM BICARBONATE/CIT AC 20 MEQ TABLET.EFF NG-TUBE SCH (08:00)
--- NOTE | 2020-02-28 08:04 | XR ---
EXAMINATION TYPE: XR chest 1V portable DATE OF EXAM: 02/28/2020 Comparison: 02/27/2020 Clinical History: 70 year-old male tube placement Findings: Tracheostomy cannula again noted. The distal end is 2.4 cm from the rony. Left PICC tip at the cavo atrial junction. Median sternotomy wires are present with post-CABG clips in mediastinum. NG tube cou rses below the diaphragm. Heart remains mildly enlarged. Left basilar chest tube is in place. Left-si ded rib fractures. Unable to exclude trace left apical pneumothorax measuring 1.0 cm. Continued mult ifocal patchy airspace opacities though slightly less confluent in the right upper lobe. Continued sm all left effusion. Impression: 1. Continued multifocal patchy airspace disease though slightly less confluent in the right upper lob e. Small left effusion suspected. 2. Left basilar chest tube in place. Now visualized trace left apical pneumothorax measuring 1.0 cm.
[2020-02-28] MEDS: DILTIAZEM 125 MG in SODIUM CHLORIDE 0.9% 100 ML IV SCH (08:29)
[2020-02-28] MEDS: QUEtiapine 50 MG TAB PO SCH ×2 (08:32→20:57)
[2020-02-28] MEDS: CEFEPIME 2 GM in SODIUM CHLORIDE 0.9% 100 ML IVPB SCH ×2 (08:32→20:57)
[2020-02-28] MEDS: THIAMINE 100 MG TAB PO SCH (08:32)
[2020-02-28] MEDS: DOCUSATE ORAL SOLN 100 MG/10 ML CUP PO SCH ×2 (08:32→20:57)
[2020-02-28] MEDS: CHLORHEXIDINE GLUCONATE 15 ML CUP MUCOUS MEM SCH ×2 (08:32→20:57)
[2020-02-28] MEDS: AMIODARONE 200 MG TAB PO SCH ×2 (08:32→20:57)
[2020-02-28] MEDS: ENOXAPARIN 40 MG/0.4 ML SYRINGE SQ SCH (08:33)
[2020-02-28] MEDS: SODIUM CHLORIDE 0.9% 1,000 ML IV SCH (08:34)
--- NOTE | 2020-02-28 11:00 | P.PN ---
Subjective Progress Note Date: 02/28/20 Principal diagnosis: Polytrauma Patient remains on the ventilator. His sedation is being weaned. Patient remains confused. T-max 99.7. White blood cell count 19.7. Tolerating tube feeds Objective - Vital Signs Vital signs: Vital Signs Temp 98.5 F 02/28/20 08:00 Pulse 80 02/28/20 10:20 Resp 32 H 02/28/20 10:20 BP 155/75 02/28/20 10:20 Pulse Ox 93 L 02/28/20 10:20 Intake & Output 02/27/20 02/28/20 02/28/20 18:59 06:59 18:59 Intake Total 0266.395 6050.956 648.993 Output Total 990 820 495 Balance 528.016 976.956 153.993 Weight 90.1 kg 89.8 kg Intake: IV 340 120 60 Piperacillin-Tazobactam 3 100 .375 gm In Sodium Chloride 0.9% 100 ml @ 25 mls/hr IVPB Q8HR [facility] Rx# :[id number] Sodium Chloride 0.9% 1, 240 120 60 000 ml @ 20 mls/hr IV . Q24H [facility] Rx#:[id number] Intake, IV Titration 808.016 876.956 358.993 Amount Cefepime 2 gm In Sodium 100 100 Chloride 0.9% 100 ml @ 25 mls/hr IVPB Q12HR [facility] Rx #:[id number] Diltiazem 125 mg In 43.583 89.000 Sodium Chloride 0.9% 100 ml @ Per Protocol IV .Q0M [facility] Rx#:[id number] Morphine Sulfate (100 mg/ 55.386 2 ml) 100 mg In Sodium Chloride 0.9% 100 ml @ 2 MG/HR 2.04 mls/hr IV . Q24H [facility] Rx#:[id number] Piperacillin-Tazobactam 3 100 .375 gm In Sodium Chloride 0.9% 100 ml @ 25 mls/hr IVPB Q8HR [facility] Rx# :[id number] Vancomycin 1,750 mg In 500 500 Sodium Chloride 0.9% 500 ml 500 ml @ 167 mls/hr IVPB Q12H [facility] Rx#: [id number] propofoL 1,000 mg In 164.433 276.956 114.607 Empty Bag 1 bag @ Titrate IV .Q0M COUNTS INCLUDE 234 BEDS AT THE [facility] Rx#: [id number] Tube Feeding 370 650 200 Other 150 30 Output: Chest Tube Drainage 180 310 Chest Tube Left Upper 180 310 Lateral Chest Urine 810 820 185 Other: Voiding Method Indwelling Catheter Indwelling Catheter Indwelling Catheter ABP, PAP, CO, CI - Last Documented Arterial Blood Pressure 111/102 - Exam Abdomen: Soft, nondistended, nontender Trach site clean - Labs CBC & Chem 7: 02/28/20 05:37 02/28/20 05:08 Labs: Abnormal Lab Results - Last 24 Hours (Table) 02/27/20 02/27/20 02/28/20 Range/Units 12:09 18:15 00:01 WBC (3.8-10.6) k/uL RBC (4.30-5.90) m/uL Hgb (13.0-17.5) gm/dL Hct (39.0-53.0) % MCHC (31.0-37.0) g/dL RDW (11.5-15.5) % Plt Count (150-450) k/uL Neutrophils # (Manual) (1.3-7.7) k/uL Lymphocytes # (Manual) (1.0-4.8) k/uL Eosinophils # (Manual) (0-0.7) k/uL Metamyelocytes # (Man) (0) k/uL Myelocytes # (Manual) (0) k/uL Nucleated RBCs (0-0) /100 WBC ABG pO2 (83-108) mmHg ABG HCO3 (21-25) mmol/L ABG Total CO2 (19-24) mmol/L Chloride (98-107) mmol/L BUN (9-20) mg/dL Glucose (74-99) mg/dL POC Glucose (mg/dL) 156 H 115 H 144 H (75-99) mg/dL Ammonia (<30) umol/L 02/28/20 02/28/20 02/28/20 Range/Units 05:08 05:37 05:37 WBC 19.7 H (3.8-10.6) k/uL RBC 2.86 L (4.30-5.90) m/uL Hgb 8.0 L (13.0-17.5) gm/dL Hct 26.0 L (39.0-53.0) % MCHC 30.7 L (31.0-37.0) g/dL RDW 15.7 H (11.5-15.5) % Plt Count 585 H (150-450) k/uL Neutrophils # (Manual) 15.30 H (1.3-7.7) k/uL Lymphocytes # (Manual) 0.59 L (1.0-4.8) k/uL Eosinophils # (Manual) 1.38 H (0-0.7) k/uL Metamyelocytes # (Man) 1.18 H (0) k/uL Myelocytes # (Manual) 0.79 H (0) k/uL Nucleated RBCs 13 H (0-0) /100 WBC ABG pO2 (83-108) mmHg ABG HCO3 (21-25) mmol/L ABG Total CO2 (19-24) mmol/L Chloride 114 H (98-107) mmol/L BUN 35 H (9-20) mg/dL Glucose 109 H (74-99) mg/dL POC Glucose (mg/dL) (75-99) mg/dL Ammonia 38 H (<30) umol/L 02/28/20 02/28/20 Range/Units 06:52 07:22 WBC (3.8-10.6) k/uL RBC (4.30-5.90) m/uL Hgb (13.0-17.5) gm/dL Hct (39.0-53.0) % MCHC (31.0-37.0) g/dL RDW (11.5-15.5) % Plt Count (150-450) k/uL Neutrophils # (Manual) (1.3-7.7) k/uL Lymphocytes # (Manual) (1.0-4.8) k/uL Eosinophils # (Manual) (0-0.7) k/uL Metamyelocytes # (Man) (0) k/uL Myelocytes # (Manual) (0) k/uL Nucleated RBCs (0-0) /100 WBC ABG pO2 79 L (83-108) mmHg ABG HCO3 30 H (21-25) mmol/L ABG Total CO2 31 H (19-24) mmol/L Chloride (98-107) mmol/L BUN (9-20) mg/dL Glucose (74-99) mg/dL POC Glucose (mg/dL) 138 H (75-99) mg/dL Ammonia (<30) umol/L Microbiology - Last 24 Hours (Table) 02/27/20 11:00 Gram Stain - Preliminary Sputum Sputum Culture - Preliminary 02/22/20 17:22 Blood Culture - Preliminary Blood No Growth after 120 hours 02/26/20 15:10 Catheter Tip Culture - Preliminary Catheter Tip Assessment and Plan (1) Post-splenectomy Narrative/Plan: Patient remains confused. Continue tube feeds and weaning trials. Chest tube management per thoracic surgery and pulmonary. Monitor labs. Current Visit: Yes Status: Acute Code(s): Z90.81 - ACQUIRED ABSENCE OF SPLEEN SNOMED Code(s): 811976803
--- NOTE | 2020-02-28 11:18 | P.PN ---
Subjective Progress Note Date: 02/28/20 Principal diagnosis: Status post fall off ladder and significant trauma to chest and abdomen. This is a 69-year-old male patient who was working on his gutters when he fell off a 15 foot ladder. This was unwitnessed. He end up calling his who in turn called EMS and the patient was brought in to the emergency department. Upon arrival, the patient was hypotensive and he was in shock. The patient initial chest x-ray showed several left-sided fractures and small amount of subcutaneous air in addition to a left-sided pneumothorax. The x-ray of the pelvis showed no evidence of any fracture or dislocation. The CAT scan of the brain showed age-related atrophy and chronic small vessel ischemic changes without any acute intracranial process. CAT scan of cervical spine showed no acute abnormalities. On and has Been of the cervical spine was done and the bone and soft tissue windows showed no acute abnormalities. There was no evidence of any fracture. Along with multiple left-sided rib fractures third extending to the seventh rib. There was also spending the sedation with estimated grade 3 injury the patient. The patient's hemoglobin dropped to 10.5. The patient received a total of 2 L of IV fluid and 40 minutes of packed RBC. Morning hemoglobin today is At 13.4. The patient was taken to the operating room yesterday. The patient underwent a left-sided chest tube insertion. The patient also had splenectomy done and following that the patient was kept intubated on a mechanical ventilator and he was transferred to the intensive care unit. Note that the patient takes morphine outpatient basis and he has chronic pain and chronic narcotic requirements and on outpatient basis he takes morphine sulfate in the form of MS Contin 50 mg every 12 hours. Overnight, the patient was intubated on mechanical ventilator. He was sedated with a combination of propofol and he was also placed on morphine drip after being given several boluses control his pain. This morning, Profore is running at 70 mg per KG per minute. Morphine is running at 8 mg an hour. The patient is on normal saline at rate of 85 mL an hour. The patient has a left sided chest tube. Total amount of output is in order 110 mL of serosanguineous material without evidence of any air leak. The ventilator setting shows an assist- control mode rate of 20 with a tidal volume of 500 and FiO2 of 40% with a PEEP of 5. The patient's FiO2 is down to 40% overnight. The morning blood gases showed a pH of 7.4 with a pCO2 of 37 and pO2 of 121. The chest x-ray from this morning shows that the patient has an indwelling left-sided chest tube without any signs or pneumothorax. There is also a basilar pleural-based opacity along with multiple left-sided rib fractures and ET tube is in a good location. He is at approximately slightly swollen probably related to an infiltrated IV. He did not require any pressors. He remains hemodynamically stable. Lactic acid remains slightly elevated at 2.9 On 02/19/2020, the patient's seen for a follow-up. Earlier this morning, the patient was doing well and patient was well sedated on propofol at 70 g per KG per minute and morphine at 8 mg an hour. He was on a mechanical ventilator on assist control mode at the rate of 20 with a tidal volume of 500 and FiO2 of 40% with a PEEP of 5. His chest x-ray showed no acute abnormalities. There was no evidence of any pneumothorax. The patient left-sided chest tube in place. No evidence of any air leak. The chest x-ray showed multiple left-sided rib fractures, stable right medial basilar atelectasis, stable left basilar infiltrate/atelectasis. No other acute abdominal masses otherwise noted. As for the blood gases, the patient a pH of 7.49 with a pCO2 of 31 and pO2 of 84. The patient was hemodynamically stable on no pressors. Hemoglobin was stable at 11.6. Lactic acid level is improved. Based on this, the patient was given a sedation holiday. Initially he recovered nicely from this sedation. He was kept on morphine for pain control at a lower dose of 12 mg an hour. He was taken off the propofol. He was given as pertains breathing trial and he seemed to be quite comfortable and he was getting progressively more restless. At that point, I made decision to extubate the patient, and he was placed on oxygen by nasal cannula. The first 20-30 minutes, the patient did well post extubation. Subsequently, he became progressively more restless, agitated, he was having tremors and he was thrashing around. He was not following any commands. He became progressively more tachycardic. He went into atrial fibrillation with rapid ventricular response with a heart rate in the 180s. He became HYPERTENSIVE with systolic blood pressure went up to 200s. Based on all this, the patient was started on side effects drip for blood pressure control. I thought that the patient was withdrawing from alcohol. It's clear to me that the patient has a component of alcoholism and it was noted that the patient was intoxicated alcohol at time of admission. As such, he could have been in delirium tremens. He was given a total of 4 mg of Ativan without any major impr ovement. At that point, I decided to reintubate the patient. He was placed again on propofol and morphine drip was continued and he was intubated in the intensive care unit without any major difficulties. A triple lumen cath was also inserted. As for atrial fibrillation, the patient was started on amiodarone drip per protocol. Chest x-ray post intubation showed no acute abnormalities. She wasn't in that location. Triple lumen catheter was also in good location. NG tube was also be inserted. 02/20/2020, the patient is sedated on a mechanical ventilator. He failed extubation yesterday because of activity delirium tremens. He was restarted back on propofol running at 50, respiratory KG per minute and morphine at 6 mg an hour. He is also on normal saline at 0.9 percent at 100 mL an hour. He was running a lower blood pressure yesterday. He was given a bolus of IV fluids and a second bolus was given to him today. Both boluses are 1 L. The patient has converted back into normal sinus rhythm. Note that he was loaded with amiodarone yesterday and he was kept on amiodarone throughout the day and currently amiodarone is running at 0.5 mg per minute. A. fib RVR has recovered and the patient is back into normal sinus rhythm. He remains on a mechanical ventilator. He is an assist-control mode at the rate of 20 with a tidal volume of 500 and FiO2 40% with a PEEP of 5. A blood gas showed a pH of 7.48 with a pCO2 of 27 and pO2 of 97. The patient is afebrile. The patient has a clear abdominal wounds. The chest tube on the left is still in place without evidence of any air leak and output from the chest tube has been serosanguineous in order of 240 mL over the past 24 hours. Urine output is adequate. No other significant events overnight. On 02/21/2020 and seeing the patient for a follow-up in the intensive care unit. The patient is on a combination of propofol and morphine sulfate. Propofol is running at 55 g per KG pigmented emotional sulfate is 4 mg an hour. He is calm and comfortable. He is an assist-control mode at the rate of 20 with a tidal volume of 500 and a FiO2 of 40% with a PEEP of 5. His morning blood gases showed a pH of 7.45 with a pCO2 of 32 and pO2 129. Chest x-ray showing some limited atelectatic changes and infiltration of the lung bases. The patient's chest x-ray showed no evidence of any pneumothorax. The output from the left- sided chest tube is in the order of 10 25 mL over the past 24 hours and there is no evidence of any air leak. The patient is calm and comfortable. I'm going to give him a sedation holiday. I'm going to consider Precedex instead of propofol as an alternative sedative medication and assess the patient's underlying mental status. He is hemodynamically stable. He has required no pressors. He remains in sinus rhythm. Amiodarone is currently discontinued. Is tolerating his enteral feeding for nutritional support. 02/22/2020, the patient is being seen in follow-up. I tried to make an adjustment in the patient's sedation. I stopped the propofol yesterday and switch the patient to Precedex. I Do morphine sulfate. The patient did well for quite some time. Subsequently he became again agitated restless pulling on his tubes and it was very difficult to control his agitation. Based on that, I stopped the Precedex and put him back on propofol. Currently he is intubated on a mechanical ventilator and propofol is running at 60 mics of respiratory KG per minute and the patient is also morphine sulfate a 4 mg an hour. He is in a positive fluid balance and the patient would benefit from diuresis. He is on no pressors. Left-sided chest tube is in place and output is around 2 50 mL over the past 12 hours. There is no evidence of air leak. Chest x-ray showing bilateral pulmonary infiltrates slightly worse on the right. The patient remains on a mechanical ventilation. He is on assist-control at the rate of 20 with a tidal volume of 500 and FiO2 of 40% with a PEEP of 5. PH is at 7.4 with a pCO2 of 38 and pO2 of 100. He is taken his enteral feeding and he is receivi ng vital high protein at the rate of 30 mL an hour. No other complaints or issues for now. No fever. No chills. His blood pressure was somewhat elevated and he was briefly given Cleviprex for blood pressure control which is still running at 1 mg an hour and this will be weaned off. He remains on empiric antibiotic coverage with IV Zosyn. Repeat blood cultures came back negative. Patient was reevaluated today on 02/23/20, remains in the ICU, intubated and mechanically ventilated. His ventilator settings are assist control rate of 20 tidal volume of 500 FiO2 is 40% PEEP is 5. Peak airway pressure is 24 plateau pressure is 20. Patient remains on propofol at 70 mcg/kg/m morphine sulfate at 4 mg per hour IV fluid at KVO chest tube is at waterseal. No evidence of air leak. Chest x-ray showed slight improved aeration of the lungs at the bases bilaterally. Small bilateral pleural effusions and small areas of bibasilar opacities. Could be aspiration pneumonia related or could be atelectasis. Multiple left-sided displaced rib fractures are noted. ABG showed a pO2 of 73 pCO2 of 38 pH of 7.47 WBC count is 22.1 hemoglobin is 9.5. Basic metabolic profile is normal, renal profile is normal. Today I have suggested sedation holiday. And depending on how he does with a sedation holiday, may or may not proceed with a weaning trial. However the patient gets extremely agitated he will be back on propofol and not ready to wean. This will be decided upon depending on his clinical status off sedation. All meds were reviewed, patient remains on Zosyn for presumptive aspiration pneumonia. Reevaluated today on 02/24/20, remains in the ICU, intubated and mechanically ventilated. Ventilator settings are assist control rate of 20 tidal volume is 500 FiO2 is 40% PEEP of 5 ABG showed a pO2 of 67 pCO2 of 39 pH of 7.47 hence his FiO2 was increased to 45%. Patient remains on morphine at 2 mg/h propofol at 45 mcg/kg/m IV fluid at KVO patient is hemodynamically stable not requiring any pressors. He is in sinus rhythm. Chest tube remains in place, and it drained 370 mL of serous drainage over the last 24 hours. Tube feeding is progressing, patient is at 50 ML per hour/goal. My plan today is to hold sedation and narcotics, will start the patient on Precedex, and I plan to give the patient at least a weaning trial on Precedex. Chest x-ray and labs were all reviewed, ches t x-ray is suggestive of bilateral infiltrates, most likely aspiration pneumonia related. His WBC count seems to be on the rise today. However no clear-cut evidence of infection. Patient remains empirically on antibiotics Reevaluated today on 02/25/20, patient remains in the ICU, intubated and mec hanically ventilated. His ventilator settings are assist-control rate 20 tidal volume 500 FiO2 45% PEEP of 5 ABG showed a pO2 of 68 pCO2 of 43 pH of 7.43 patient developed atrial fibrillation with RVR last night, placed on amiodarone drip, remains on amiodarone drip at present, cardiology was consulted. Chest x- ray is showing worsening infiltrates and possibly some component of interstitial edema bilaterally. Hence one dose of Lasix was given today, and will continue to monitor the chest x-ray findings, I believe the findings are more or less related to aspiration pneumonia. Doubt congestive heart failure. Patient is on IV fluids at KVO propofol at 20 mcg/kg/m morphine sulfate 3 mg per hour. Trial of weaning has been attempted every day, however the patient gets extremely agitated of sedation, he was also agitated on Precedex when we took him off propofol and morphine. Clearly he is going to be a failure to wean, and has been so far. His was approached again today, and recommended tracheostomy and PEG tube placement. This was also discussed with the surgeon and he will discuss the procedures with the . Reevaluated today on 02/26/20, patient remains in the ICU, on mechanical ventilation, he is status post tracheostomy, postoperative day #1. Patient is on assist control rate of 20 tidal volume is 500 FiO2 45% PEEP of 5 ABG showed a pO2 of 71 pCO2 of 39 pH of 7.46. Remains on morphine sulfate which I cut it down to 1 mg/h, he is now temporarily off propofol to assess his mental status, and his IV amiodarone was switched to oral amiodarone to be given via nia ogastric tube. Chest x-ray continues to show bilateral infiltrates, right more so than left, suspect underlying aspiration pneumonia, remains on Zosyn. Patient is sedated, slightly agitated, opens eyes to verbal stimuli, but does not follow any verbal instructions. Patient had good urine output over the last 24 hours, and he is in a negative fluid balance. Left-sided chest tube drained about 150 mL over the last 24 hours. The fluid is mostly serosanguineous. Patient may have a PEG tube placement today, in the meantime he continues to have an orogastric tube in place. Patient is hemodynamically stable, remains in sinus rhythm. Reevaluated today on 02/27/20, remains in the ICU, intubated and mechanically ventilated. ABG showed a pO2 of 62 pCO2 of 38 pH of 7.48, ventilator settings are assist control rate of 20 tidal volume 500 FiO2 45% PEEP of 5 and his low pO2 I increased his FiO2 to 50% and increased PEEP to 8. Chest x-ray is showing worsening infiltrates especially in the right upper lobe. And he has a left perihilar infiltrate. This morning the patient was only on morphine at 2 mg per hour, and he was noted to be again agitated, thrashing in bed, and developed worsening atrial fibrillation with RVR, placed on Cardizem drip at 5 mg per hour. Considering the extreme agitation that I noted, recommended that the patient goes back on propofol, ordered a neurology consult on the patient, ordered CT of the head, and also recommended a CT of the abdomen and pelvis. Clearly the patient is not ready to be weaned or extubated at this point. Patient was seen by neurology, and it was felt that the patient may have metabolic toxic encephalopathy. Continues to have leukocytosis with WBC count of 18.9, and low-grade fever intermittently, CT of the abdomen is pending. Reevaluated today on 02/28/20, patient remains in the ICU, mechanically ventilated, ventilator settings are assist control rate of 20 tidal volume 500 FiO2 50% and PEEP of 8. His ABG showed a pO2 of 79 pCO2 44 pH of 7.44. Patient remains on propofol drip, presently at 40 mEq per kilo per minute. Morphine sulfate at 2 mg per hour and I cut it down to 1 mg/h Cardizem drip at [address] of the abdomen and CT of the brain were basically nondiagnostic. Continues to have about 200 mL of serous drainage from the left sided chest tube over the last 24 hours. Patient continues to have intermittent episodes of extreme agitation off propofol on a daily basis today I recommended that we stop propofol again and cut down morphine sulfate 1 mg/h, and assess mental status, try to hold sedation as much as possible as long as the patient is not pulling his lines and his catheters. We have been attempting to wean the patient almost on a daily basis of sedation and narcotics, and he gets extremely agitated making it extremely difficult to wean and extubate. Patient is already status post tracheostomy, technically could not have a PEG tube placement. And this would be readdressed next week. Chest x-ray continues to show bilateral infiltrates, slightly improved today compared to the last chest x-ray. Objective - Vital Signs Vital signs: Vital Signs Temp 98.5 F 02/28/20 08:00 Pulse 80 02/28/20 10:20 Resp 32 H 02/28/20 10:20 BP 155/75 02/28/20 10:20 Pulse Ox 93 L 02/28/20 10:20 Intake & Output 02/27/20 02/28/20 02/28/20 18:59 06:59 18:59 Intake Total 8954.380 2693.956 698.993 Output Total 990 820 495 Balance 528.016 976.956 203.993 Weight 90.1 kg 89.8 kg Intake: IV 340 120 60 Piperacillin-Tazobactam 3 100 .375 gm In Sodium Chloride 0.9% 100 ml @ 25 mls/hr IVPB Q8HR [facility] Rx# :[id number] Sodium Chloride 0.9% 1, 240 120 60 000 ml @ 20 mls/hr IV . Q24H [facility] Rx#:[id number] Intake, IV Titration 808.016 876.956 358.993 Amount Cefepime 2 gm In Sodium 100 100 Chloride 0.9% 100 ml @ 25 mls/hr IVPB Q12HR [facility] Rx #:[id number] Diltiazem 125 mg In 43.583 89.000 Sodium Chloride 0.9% 100 ml @ Per Protocol IV .Q0M [facility] Rx#:[id number] Morphine Sulfate (100 mg/ 55.386 2 ml) 100 mg In Sodium Chloride 0.9% 100 ml @ 2 MG/HR 2.04 mls/hr IV . Q24H [facility] Rx#:[id number] Piperacillin-Tazobactam 3 100 .375 gm In Sodium Chloride 0.9% 100 ml @ 25 mls/hr IVPB Q8HR [facility] Rx# :[id number] Vancomycin 1,750 mg In 500 500 Sodium Chloride 0.9% 500 ml 500 ml @ 167 mls/hr IVPB Q12H [facility] Rx#: [id number] propofoL 1,000 mg In 164.433 276.956 114.607 Empty Bag 1 bag @ Titrate IV .Q0M [facility] Rx#: [id number] Tube Feeding 370 650 250 Other 150 30 Output: Chest Tube Drainage 180 310 Chest Tube Left Upper 180 310 Lateral Chest Urine 810 820 185 Other: Voiding Method Indwelling Catheter Indwelling Catheter Indwelling Catheter ABP, PAP, CO, CI - Last Documented Arterial Blood Pressure 111/102 - Exam Physical Exam: Revealed a 69-year-old white male, sedated, mechanically ventilated, in no distress. On propofol and morphine this morning. Head: Atraumatic, normocephalic, tracheostomy is intact, and orogastric tube is in place. HEENT:[Neck is supple.] [No neck masses.] [No thyromegaly.] [No JVD.] PERRLA, EOMI, no icterus. Chest: Symmetrical chest expansion, crackles and rhonchi bilaterally.. Left sided chest tube is noted. Serosanguineous drainage about 200 mL over the last 24 hours. Cardiac Exam: Distant S1 and S2, no S3 gallop. No murmur. Abdomen: [Soft, nontender, no megaly, no rebound, no guarding, normal bowel sounds.] Extremities: No clubbing, edema or cyanosis. Good pulses bilaterally. Neurological Exam: Pupils are equally reactive to light, opens eyes to verbal stimuli, no purposeful movement Psychiatric: Could not be assessed Musculoskeletal: Good muscle tone, otherwise could not be assessed, no deformities. - Labs CBC & Chem 7: 02/28/20 05:37 02/28/20 05:08 Labs: Abnormal Lab Results - Last 24 Hours (Table) 02/27/20 02/27/20 02/28/20 Range/Units 12:09 18:15 00:01 WBC (3.8-10.6) k/uL RBC (4.30-5.90) m/uL Hgb (13.0-17.5) gm/dL Hct (39.0-53.0) % MCHC (31.0-37.0) g/dL RDW (11.5-15.5) % Plt Count (150-450) k/uL Neutrophils # (Manual) (1.3-7.7) k/uL Lymphocytes # (Manual) (1.0-4.8) k/uL Eosinophils # (Manual) (0-0.7) k/uL Metamyelocytes # (Man) (0) k/uL Myelocytes # (Manual) (0) k/uL Nucleated RBCs (0-0) /100 WBC ABG pO2 (83-108) mmHg ABG HCO3 (21-25) mmol/L ABG Total CO2 (19-24) mmol/L Chloride (98-107) mmol/L BUN (9-20) mg/dL Glucose (74-99) mg/dL POC Glucose (mg/dL) 156 H 115 H 144 H (75-99) mg/dL Ammonia (<30) umol/L 02/28/20 02/28/20 02/28/20 Range/Units 05:08 05:37 05:37 WBC 19.7 H (3.8-10.6) k/uL RBC 2.86 L (4.30-5.90) m/uL Hgb 8.0 L (13.0-17.5) gm/dL Hct 26.0 L (39.0-53.0) % MCHC 30.7 L (31.0-37.0) g/dL RDW 15.7 H (11.5-15.5) % Plt Count 585 H (150-450) k/uL Neutrophils # (Manual) 15.30 H (1.3-7.7) k/uL Lymphocytes # (Manual) 0.59 L (1.0-4.8) k/uL Eosinophils # (Manual) 1.38 H (0-0.7) k/uL Metamyelocytes # (Man) 1.18 H (0) k/uL Myelocytes # (Manual) 0.79 H (0) k/uL Nucleated RBCs 13 H (0-0) /100 WBC ABG pO2 (83-108) mmHg ABG HCO3 (21-25) mmol/L ABG Total CO2 (19-24) mmol/L Chloride 114 H (98-107) mmol/L BUN 35 H (9-20) mg/dL Glucose 109 H (74-99) mg/dL POC Glucose (mg/dL) (75-99) mg/dL Ammonia 38 H (<30) umol/L 02/28/20 02/28/20 Range/Units 06:52 07:22 WBC (3.8-10.6) k/uL RBC (4.30-5.90) m/uL Hgb (13.0-17.5) gm/dL Hct (39.0-53.0) % MCHC (31.0-37.0) g/dL RDW (11.5-15.5) % Plt Count (150-450) k/uL Neutrophils # (Manual) (1.3-7.7) k/uL Lymphocytes # (Manual) (1.0-4.8) k/uL Eosinophils # (Manual) (0-0.7) k/uL Metamyelocytes # (Man) (0) k/uL Myelocytes # (Manual) (0) k/uL Nucleated RBCs (0-0) /100 WBC ABG pO2 79 L (83-108) mmHg ABG HCO3 30 H (21-25) mmol/L ABG Total CO2 31 H (19-24) mmol/L Chloride (98-107) mmol/L BUN (9-20) mg/dL Glucose (74-99) mg/dL POC Glucose (mg/dL) 138 H (75-99) mg/dL Ammonia (<30) umol/L Microbiology - Last 24 Hours (Table) 02/27/20 11:00 Gram Stain - Preliminary Sputum Sputum Culture - Preliminary 02/22/20 17:22 Blood Culture - Preliminary Blood No Growth after 120 hours 02/26/20 15:10 Catheter Tip Culture - Preliminary Catheter Tip Assessment and Plan Assessment: Impression: Status post fall off a ladder with trauma to chest and abdomen. 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 No air leak, continues to have serosanguineous drainage. Acute hemorrhagic shock on presentation. Acute blood loss anemia and patient received a total of 4 units of packed RBCs since admission. Acute hypoxic respiratory failure secondary to extreme agitation and delirium tremors requiring sedation, and detoxification, there is also possibly a co mponent of aspiration pneumonia as noted on the chest x-ray. Sputum cultures recently are nondiagnostic. Chronic neck pain, patient is maintained chronically on MS Contin Coronary artery disease and previous CABG Dyslipidemia Paroxysmal atrial fibrillation presently in normal sinus rhythm. New onset atrial fibrillation with RVR, converted with amiodarone drip. Failure to wean, status post tracheostomy on 02/25/20. Toxic metabolic encephalopathy, acute. Status post PICC line placement postoperatively #2, his central line was discontinued and cultures were ordered. No growth in the last 24 hours. Recommendation: Continue ventilatory support, continue daily sedation holidays. CT of the head, CT of the abdomen and pelvis are basically unremarkable. Continue Cardizem drip. Continue amiodarone. Continue GI and DVT prophylaxis. Continue enteral feeding via orogastric tube. Continue IV Zosyn, repeat sputum cultures were ordered. Nondiagnostic so far. Continue chest tube in place for now, continues to have more than 200 mL of drainage in the last 24 hours. Remains critically ill, critical care time is 32 minutes Time with Patient: Greater than 30
--- NOTE | 2020-02-28 11:19 | PN ---
PROGRESS NOTE This is a 70-year-old gentleman I am seeing for the first time in the ICU. He was admitted to hospital with having had a fall from a ladder with multiple injuries including splenic rupture and pneumothorax. While in the hospital, he developed paroxysmal episodes of atrial fibrillation. He is thought not to be a good candidate for anticoagulation. His cardiac history is significant for coronary artery disease status post CABG and atrial fibrillation. This morning patient remains intubated on vent and is in sinus rhythm. He is on oral amiodarone and intravenous Cardizem is being used intermittently. PHYSICAL EXAMINATION: On exam he is intubated, sedated on vent with an O2 saturation of 97% on 50% FiO2. On exam heart rate is 84 beats per minute. Blood pressure is 129/59, respiratory is 18. Chest exam reveals diminished air entry at the bases. Heart exam reveals first and second heart sounds. No gallop. No murmur. Abdomen is soft. Exam of extremities did not reveal any edema. Peripheral pulses are felt. LAB: Show a hemoglobin of 8, potassium is 3.7, creatinine is 0.8. TSH is 3.3. ASSESSMENT: 1. Paroxysmal atrial fibrillation. 2. Coronary artery disease, status post coronary artery bypass grafting. 3. Status post fall with splenic rupture. PLAN: Patient is not a candidate for oral anticoagulation at this time. This issue should be revisited once patient is more stable. MMODL / IJN: [id number] /
[2020-02-28 12:16] LABS: Glucose,Whole Blood 144 mg/dL (75-99)
[2020-02-28] MEDS: CLEVIDIPINE BUTYRATE 25 MG in EMPTY BAG 1 BAG IV SCH (12:16)
--- NOTE | 2020-02-28 14:19 | XR ---
EXAMINATION TYPE: XR chest 1V portable DATE OF EXAM: 02/28/2020 COMPARISON: Today HISTORY: Check tube placement TECHNIQUE: Single view. There is tracheostomy tube. There is nasogastric tube with the tip in the distal stomach. There is a left-sided chest tube over the left cardiac border. There is some patchy airspace consolidation right upper lobe. There is some diffuse infiltrate in both lungs. There are chest leads. There is left-dung ed central venous catheter with tip in the superior vena cava. IMPRESSION: There is patchy bilateral pulmonary infiltrates that could relate to RDS. Chest overall n ot significantly different than exam this morning. NG tube in the distal stomach.
--- NOTE | 2020-02-28 15:43 | PN ---
PROGRESS NOTE DATE OF SERVICE: 02/28/2020 REASON FOR FOLLOWUP: Fever, possible pneumonia. Post splenectomy. INTERVAL HISTORY: Patient is currently afebrile with no fever being recorded in the last 24 hours. The patient is hemodynamically stable, not on pressor support. FiO2 is currently stable at 50%. Tolerating tube feeds. No diarrhea or any other changes reported by the nursing staff. PHYSICAL EXAMINATION: Blood pressure 145/80 with a pulse of 93, temperature 98.4. He is 96% on 50% FiO2. General description is an elderly male lying in bed in no distress. Respiratory system: Unlabored breathing . Heart S1, S2. Regular rate and rhythm. Abdomen is soft with no tenderness. LABS: Hemoglobin 8.1, white count 19.7, BUN of 35, creatinine 0.85. DIAGNOSTIC IMPRESSION AND PLAN: Patient with a fever, elevated white count. Question of possible pneumonia covered with cefepime and vancomycin. White count elevated. Possible oropharyngeal candidiasis, post splenectomy, with the patient being on amiodarone, diflucan could not be added. We will add Eraxis and see clinical response to it and monitor clinical course closely. at the bedside. Questions were answered. MMODL / IJN: [id number] /
[2020-02-28 16:50] LABS: Folate, Serum 9.6 ng/mL
--- NOTE | 2020-02-28 18:14 | P.PN ---
Subjective 69-year-old male was cleaning gutters fell from skin feet ladder was brought into emergency department found to have several left-sided fractures left-sided pneumothorax with a left-sided chest tube presently patient is presently intubated patient has multiple left-sided fractures from third to seventh rib patient also had a splenectomy for splenic injury. Patient is presently sedated with propofol and also morphine drip patient is presently on ventilatory support blood gases showed normal pH pCO2 and pO2 are within normal limits as well pat ient is presently onZosyn patient had lactic acidosis secondary tolactated Ringer's. Patient is hyperchloremic because of which probably will start him on half-normal saline. 02/19/2020 Patient is expected today and shortly after that patient didn't tolerate that and patient ended up undergoing an atrial fibrillation patient was started on amiodarone patient was subsequently reintubated. Patient is bit hyponatremic because of extensive switching the IV fluids to normal saline instead of half- normal saline. Patient is also getting amiodarone. D5 water. Patient is not requiring any pressors at this time. Please refer to intensive is documentation for further details of ventilator settings. 02/20/2020 Patient developed ongoing trial patient is having sedation vacation patient heart rate is better controlled patient overall clinical condition is bit better today 02/21/2020 Patient still in the ICU, he is intubated and sedated. Chest tube is in place and it hasn't output about 325 in 24 hours, propofol was switched to Paradox by critical care team. Pulmonary/critical care troponin measuring the event, sugar was low but most likely this is a false reading because patient is edematous. Surgical wound in the middle of the abdomen it looks clean and dry and closed. Patient is getting IV morphine. Creatinine and electrolytes are normal. Echocardiogram showing ejection fraction of 55-60% with moderate to severe mitral regurgitation His WBCs 17.3 K. Liver enzymes are trending down 02/22/2020 Patient the ICU, he could not tolerate the current sedative and he had to be placed back on the propofol, he got agitated overnight and he needed restraints. These making about 1 5200 mL of chest tube drainage every 12 hours Lasix is added. Also he had low-grade temperature and mild increase in WBC, he still on Zosyn and IV on the case. Cultures are negative so far 02/23/2020 Patient remains in the ICU, intubated and sedated on a propofol, he looks calm. Patient undergoing sedation holiday and pulmonary team managing his vent He still has low-grade fever 99.7, leukocytosis or interrupted 22K. BMP is unremarkable. Cultures are negative so far, infectious disease and pulmonary/critical care team on the case. Chest x-ray showing unchanged radiographic appearance of tubes and lines, mildly improved aeration of bilateral lung bases with persistent small bilateral pleural effusions and bibasilar air space opacity and multiple left-sided displaced rib fractures Currently he is on Zosyn 02/24/2020 Patient still intubated and sedated, he undergoing sedation holiday and he wakes up then to be breathing trial Patient is improving on Zosyn, no fever however culture are negative. Patient is still getting intermittent feeding. Chest tube still on the left side with about 150-200 mL of discharge every 12 hour period , surgery team on the case patient may need a PEG tube and tracheostomy if he fails a voiding trial 02/24 Patient remains in the ICU intubated and sedated, despite being on Precedex. Today he developed A. fib with RVR, he has history of A. fib. before, he Is currently not on anticoagulation other than DVT prophylaxis with Lovenox due to his hematoma. Patient was started on amiodarone drip, his rate is controlled, is controlled. Computed tomography scan of the abdomen is requested to assess his hematoma. He still has fever at 100.1 Hemoglobin is 8.8, which is stable compared to yesterday. PH normal 7.4 with normal pCO2 at 43 and low pO2 at 68, BMP is unremarkable and sugar is controlled. Surgical team were consulted for possible PEG and tracheostomy Prognosis remains very guarded. 02/26/20 Patient still on ventilation, he got tracheostomy yesterday and hysterectomy that well. Sedation is off however patient is restless and agitated, however patient does not follow, He developed another atrial fibrillation with rapid rate and he was started on amiodarone drip at 0.5. Cardizem may be added as well. Cardiology of the case Surgery team are following the patient for possible PEG placement. Possibly today. Patient remains on Zosyn, amiodarone, which can be switched to oral per [facility] and Cardizem as needed Patient remains in the ICU, his status post tracheostomy, PEG tube placement was postponed f by surgery team. He still has PICC line and left-sided chest tube with more than 100 mL of fluid draining but it is serous. Antibiotics has changed from Zosyn to vancomycin and cefepime, catheter tip culture and sensitivity was sent. CT of the abdomen and pelvis showing increased left basilar, CT. Neurologist neurologist evaluated the patient and EEG is negative for epileptiform activity but showing severe encephalopathy WBC is 19 KI patient has no fever today Neurologist recommended MRI of the brain and cervical spine when she is more stable Review of systems: N/A Active Medications Generic Name Dose Route Start Last Admin Trade Name Freq PRN Reason Stop Dose Admin Acetaminophen 650 mg 02/20/20 22:00 02/26/20 21:09 Tylenol Tab PO 650 mg Q6HR PRN Administration Fever and/ or Pain Amiodarone HCl 200 mg 02/27/20 09:00 02/28/20 08:32 Cordarone PO 200 mg BID [facility] Administration Atorvastatin Calcium 20 mg 02/18/20 21:00 02/27/20 21:33 Lipitor PO 20 mg HS BETTINA Administration Chlorhexidine Gluconate 15 ml 02/18/20 12:00 02/28/20 08:32 Peridex MUCOUS MEM 15 ml BID [facility] Administration Docusate Sodium 100 mg 02/26/20 09:00 02/28/20 08:32 Colace Oral Soln PO 100 mg BID [facility] Administration Enoxaparin Sodium 40 mg 02/18/20 09:00 02/28/20 08:33 Lovenox SQ 40 mg DAILY BETTINA Administration Finasteride 5 mg 02/18/20 21:00 02/27/20 21:33 Proscar PO 5 mg HS [facility] Administration Morphine Sulfate 100 mg/ 102 mls @ 2.04 mls/hr 02/17/20 21:30 02/28/20 10:00 Sodium Chloride IV 1 mg/hr .Q24H [facility] 1.02 mls/hr Infusion 2 MG/HR Propofol 1,000 mg/ IV Solution 100 mls @ 0 mls/hr 02/17/20 22:45 02/28/20 15:07 IV 40 mcg/kg/min .Q0M [facility] 21.552 mls/hr Administration Protocol Titrate Sodium Chloride 1,000 mls @ 20 mls/hr 02/19/20 11:45 02/28/20 08:34 Saline 0.9% IV Not Given .Q24H [facility] Clevidipine 25 mg/ IV Solution 50 mls @ 2 mls/hr 02/21/20 12:45 02/28/20 12:16 IV Not Given .Q24H [facility] Protocol 1 MG/HR Diltiazem HCl 125 mg/ Sodium 125 mls @ 0 mls/hr 02/26/20 10:00 02/28/20 13:00 Chloride IV 5 mg/hr .Q0M [facility] 5 mls/hr Titration Protocol Per Protocol Cefepime HCl 2 gm/ Sodium 100 mls @ 25 mls/hr 02/27/20 21:00 02/28/20 08:32 Chloride IVPB 25 mls/hr Q12HR [facility] Administration Vancomycin HCl 1,750 mg/ 500 mls @ 167 mls/hr 02/28/20 05:00 02/28/20 06:14 Sodium Chloride IVPB 167 mls/hr Q12H [facility] Administration Insulin Aspart 0 unit 02/18/20 13:00 02/28/20 12:20 Novolog SQ 1 unit Q6HR [facility] Administration Protocol Miscellaneous Information 1 each 02/18/20 05:19 Magnesium Per Protocol MISCELLANE DAILY PRN Per Protocol Protocol Miscellaneous Information 1 each 02/19/20 05:38 Potassium Per Protocol MISCELLANE DAILY PRN Per Protocol Protocol Miscellaneous Information 1 each 02/27/20 15:58 Pharmacy To Dose Iv Vancomycin MISCELLANE DIRECTED PRN Per Protocol Protocol Naloxone HCl 0.2 mg 02/17/20 19:37 Narcan IV Q2M PRN Opioid Reversal Quetiapine Fumarate 50 mg 02/23/20 21:00 02/28/20 08:32 Seroquel PO 50 mg BID [facility] Administration Sodium Chloride 10 ml 02/26/20 15:12 Saline Flush IV Q4HR PRN PICC Line Sodium Chloride 10 ml 03/04/20 09:00 Saline Flush IV WEEKLY [facility] Sodium Chloride 20 ml 02/26/20 15:12 Saline Flush IV Q4HR PRN PICC Line Tamsulosin HCl 0.8 mg 02/18/20 21:00 02/27/20 21:24 Flomax PO Not Given HS [facility] Thiamine HCl 100 mg 02/27/20 10:45 02/28/20 08:32 Vitamin B-1 PO 100 mg DAILY [facility] Administration Objective - Vital Signs Vital signs: Vital Signs Temp 99.3 F 02/28/20 16:00 Pulse 90 02/28/20 16:00 Resp 22 02/28/20 16:00 BP 150/66 02/28/20 16:00 Pulse Ox 97 02/28/20 16:00 Intake & Output 02/27/20 02/28/20 02/28/20 18:59 06:59 18:59 Intake Total 5305.319 3675.956 1094.611 Output Total 990 820 905 Balance 528.016 976.956 189.611 Weight 90.1 kg 89.8 kg Intake: IV 340 120 180 Piperacillin-Tazobactam 3 100 .375 gm In Sodium Chloride 0.9% 100 ml @ 25 mls/hr IVPB Q8HR [facility] Rx# :[id number] Sodium Chloride 0.9% 1, 240 120 180 000 ml @ 20 mls/hr IV . Q24H [facility] Rx#:[id number] Intake, IV Titration 808.016 876.956 404.611 Amount Cefepime 2 gm In Sodium 100 100 Chloride 0.9% 100 ml @ 25 mls/hr IVPB Q12HR [facility] Rx #:[id number] Diltiazem 125 mg In 43.583 89.000 Sodium Chloride 0.9% 100 ml @ Per Protocol IV .Q0M [facility] Rx#:[id number] Morphine Sulfate (100 mg/ 55.386 2 ml) 100 mg In Sodium Chloride 0.9% 100 ml @ 2 MG/HR 2.04 mls/hr IV . Q24H [facility] Rx#:[id number] Piperacillin-Tazobactam 3 100 .375 gm In Sodium Chloride 0.9% 100 ml @ 25 mls/hr IVPB Q8HR [facility] Rx# :[id number] Vancomycin 1,750 mg In 500 500 Sodium Chloride 0.9% 500 ml 500 ml @ 167 mls/hr IVPB Q12H [facility] Rx#: [id number] propofoL 1,000 mg In 164.433 276.956 160.225 Empty Bag 1 bag @ Titrate IV .Q0M [facility] Rx#: [id number] Tube Feeding 370 650 450 Other 150 60 Output: Chest Tube Drainage 180 320 Chest Tube Left Upper 180 320 Lateral Chest Urine 810 820 585 Other: Voiding Method Indwelling Catheter Indwelling Catheter Indwelling Catheter ABP, PAP, CO, CI - Last Documented Arterial Blood Pressure 111/102 - Exam -GENERAL: The patient is intubated and sedated HEENT: Pupils are round and equally reacting to light. EOMI. No scleral icterus. No conjunctival pallor. Normocephalic, atraumatic. No pharyngeal erythema. No thyromegaly. CARDIOVASCULAR: S1 and S2 present. No murmurs, rubs, or gallops. -PULMONARY: Chest is clear to auscultation, no wheezing or crackles. Left-sided chest tube midline vertical surgical wound is clean and dry and closed -ABDOMEN: Soft, nontender, nondistended, normoactive bowel sounds. No palpable organomegaly. MUSCULOSKELETAL: No joint swelling or deformity. EXTREMITIES: No cyanosis, clubbing, or pedal edema. NEUROLOGICAL: Gross neurological examination did not reveal any focal deficits. SKIN: No rashes. no petechiae. - Labs CBC & Chem 7: 02/28/20 05:37 02/28/20 05:08 Labs: Abnormal Lab Results - Last 24 Hours (Table) 02/27/20 02/28/20 02/28/20 Range/Units 18:15 00:01 05:08 WBC (3.8-10.6) k/uL RBC (4.30-5.90) m/uL Hgb (13.0-17.5) gm/dL Hct (39.0-53.0) % MCHC (31.0-37.0) g/dL RDW (11.5-15.5) % Plt Count (150-450) k/uL Neutrophils # (Manual) (1.3-7.7) k/uL Lymphocytes # (Manual) (1.0-4.8) k/uL Eosinophils # (Manual) (0-0.7) k/uL Metamyelocytes # (Man) (0) k/uL Myelocytes # (Manual) (0) k/uL Nucleated RBCs (0-0) /100 WBC ABG pO2 (83-108) mmHg ABG HCO3 (21-25) mmol/L ABG Total CO2 (19-24) mmol/L Chloride 114 H (98-107) mmol/L BUN 35 H (9-20) mg/dL Glucose 109 H (74-99) mg/dL POC Glucose (mg/dL) 115 H 144 H (75-99) mg/dL Ammonia (<30) umol/L Vitamin B12 1496.0 H (200.0-944.0) pg/mL 02/28/20 02/28/20 02/28/20 Range/Units 05:37 05:37 06:52 WBC 19.7 H (3.8-10.6) k/uL RBC 2.86 L (4.30-5.90) m/uL Hgb 8.0 L (13.0-17.5) gm/dL Hct 26.0 L (39.0-53.0) % MCHC 30.7 L (31.0-37.0) g/dL RDW 15.7 H (11.5-15.5) % Plt Count 585 H (150-450) k/uL Neutrophils # (Manual) 15.30 H (1.3-7.7) k/uL Lymphocytes # (Manual) 0.59 L (1.0-4.8) k/uL Eosinophils # (Manual) 1.38 H (0-0.7) k/uL Metamyelocytes # (Man) 1.18 H (0) k/uL Myelocytes # (Manual) 0.79 H (0) k/uL Nucleated RBCs 13 H (0-0) /100 WBC ABG pO2 (83-108) mmHg ABG HCO3 (21-25) mmol/L ABG Total CO2 (19-24) mmol/L Chloride (98-107) mmol/L BUN (9-20) mg/dL Glucose (74-99) mg/dL POC Glucose (mg/dL) 138 H (75-99) mg/dL Ammonia 38 H (<30) umol/L Vitamin B12 (200.0-944.0) pg/mL 02/28/20 02/28/20 Range/Units 07:22 12:14 WBC (3.8-10.6) k/uL RBC (4.30-5.90) m/uL Hgb (13.0-17.5) gm/dL Hct (39.0-53.0) % MCHC (31.0-37.0) g/dL RDW (11.5-15.5) % Plt Count (150-450) k/uL Neutrophils # (Manual) (1.3-7.7) k/uL Lymphocytes # (Manual) (1.0-4.8) k/uL Eosinophils # (Manual) (0-0.7) k/uL Metamyelocytes # (Man) (0) k/uL Myelocytes # (Manual) (0) k/uL Nucleated RBCs (0-0) /100 WBC ABG pO2 79 L (83-108) mmHg ABG HCO3 30 H (21-25) mmol/L ABG Total CO2 31 H (19-24) mmol/L Chloride (98-107) mmol/L BUN (9-20) mg/dL Glucose (74-99) mg/dL POC Glucose (mg/dL) 144 H (75-99) mg/dL Ammonia (<30) umol/L Vitamin B12 (200.0-944.0) pg/mL Microbiology - Last 24 Hours (Table) 02/26/20 15:10 Catheter Tip Culture - Final Catheter Tip 02/27/20 11:00 Gram Stain - Preliminary Sputum Sputum Culture - Preliminary Selina albicans 02/22/20 17:22 Blood Culture - Preliminary Blood No Growth after 120 hours Assessment and Plan Assessment: - Fall from ladder with trauma to chest and abdomen with traumatic hydro-p neumothorax , status post chest tube -Splenic injury status post splenectomy patient had appropriate on him as well postoperative day 7. -Acute ventilatory dependent respiratory failure hypoxic secondary to polytrauma, pneumothorax and splenic injury, continue with the ventilatory support and wean off as tolerated. days of empiric antibiotics with Zosyn -A. fib with RVR worsening -left basilar opacity, but exchanged to vancomycin and cefepime by ID team -Traumatic left-sided rib fractures, alert to 7 -hyponatremia: Secondary to half-normal saline was switched to normal saline -Hemorrhagic shock on admission which improved patient received 4 units of PRBC transfusion presently hemodynamically stable is not requiring any pressors -acute blood loss anemia from polytrauma pneumoperitoneum -history of carotid artery disease with previous bypass surgery -Hyperlipidemia -Benign prostatic hypertrophy
[2020-02-28 18:25] LABS: Glucose,Whole Blood 132 mg/dL (75-99)
[2020-02-28] MEDS: FINASTERIDE 5 MG TAB PO SCH (20:57)
[2020-02-28] MEDS: ATORVASTATIN 20 MG TAB PO SCH (20:57)
[2020-02-28] MEDS: TAMSULOSIN 0.4 MG CAP.ER.24H PO SCH (20:57)
[2020-02-28 23:33] LABS: Glucose,Whole Blood 128 mg/dL (75-99)
[2020-02-29] MEDS: ACETAMINOPHEN TAB 325 MG TAB PO PRN ×2 (00:49→22:33)
[2020-02-29 05:02] LABS: African American GFR (CKD) >90 (>60 ml/min/1.73 sqM); Anion Gap 4 mmol/L; Blood Urea Nitrogen 36 mg/dL (9-20); Calcium 8.7 mg/dL (8.4-10.2); Carbon Dioxide 27 mmol/L (22-30); Chloride 117 mmol/L (98-107); Glucose 124 mg/dL (74-99); Non-African American GFR(CKD) >90 (>60 ml/min/1.73 sqM); Potassium 3.8 mmol/L (3.5-5.1); Sodium 148 mmol/L (137-145)
[2020-02-29] MEDS: VANCOMYCIN 1,750 MG in SODIUM CHLORIDE 0.9% 500 ML 500 ML IVPB SCH ×2 (05:08→17:57)
[2020-02-29 05:12] LABS: Anisocytosis Slight; HCT 26.7 % (39.0-53.0); HGB 8.2 gm/dL (13.0-17.5); Hypochromasia Marked; MCH 28.4 pg (25.0-35.0); MCHC 30.7 g/dL (31.0-37.0); MCV 92.3 fL (80.0-100.0); Mean Platelet Volume 11.3; Platelet Count 569 k/uL (150-450); Poikilocytosis Slight; RBC 2.89 m/uL (4.30-5.90); RDW 16.1 % (11.5-15.5)
[2020-02-29 05:30] LABS: Glucose,Whole Blood 149 mg/dL (75-99)
[2020-02-29] MEDS: INSULIN ASPART (NovoLOG) 100 UNIT/ML VIAL SQ SCH ×3 (05:31→17:53)
[2020-02-29] MEDS ORDERED: POTASSIUM BICARBONATE/CIT AC 20 MEQ TABLET.EFF NG-TUBE SCH (06:00)
[2020-02-29 06:28] LABS: Band Neutrophils % 8 %; Metamyelocytes % 3 %; Myelocytes % 1 %; Neutrophils % (M) 62 %; Nucleated Red Blood Cells 26 /100 WBC (0-0); Total Cells Counted 200
[2020-02-29 06:29] LABS: Eosinophils # (M) 1.99 k/uL (0-0.7); Lymphocytes # (M) 1.99 k/uL (1.0-4.8); Monocytes # (M) 1.59 k/uL (0-1.0); WBC 19.9 k/uL (3.8-10.6)
[2020-02-29 06:30] LABS: Large Platelets Present; Polychromasia Present
[2020-02-29 07:46] LABS: ABG Base Excess 5.6 mmol/L; ABG HCO3 30 mmol/L (21-25); ABG Oxygen Saturation 92.1 % (94-97); ABG PCO2 44 mmHg (35-45); ABG PH 7.44 (7.35-7.45); ABG PO2 64 mmHg (83-108); ABG TCO2 31 mmol/L (19-24); Allen Test Performed? Yes
--- NOTE | 2020-02-29 07:55 | XR ---
EXAMINATION TYPE: XR chest 1V portable DATE OF EXAM: 02/29/2020 CLINICAL HISTORY: Tube placement TECHNIQUE: Portable upright view of the chest obtained COMPARISON: 02/28/2020 chest radiograph FINDINGS: Tracheostomy tube overlies the tracheal air column with distal tip approximately 2.8 cm fr om the rony. Enteric tube distal tip and side-port overlie the stomach. Left-sided chest tube with distal tip over the medial base. Sternotomy wires and valvular prosthesis. Redemonstrated left-sided PICC with distal tip over the cavoatrial junction. Cardiomediastinal silhouette unchanged. There are redemonstrated diffuse patchy airspace opacities bilaterally, with focal consolidative opacity of the right upper lobe with air bronchograms. There is decreased atelectasis of the left costophrenic angl e versus 02/28/2020. No pneumothorax. No pleural effusion. IMPRESSION: Patchy diffuse airspace opacities and more focal airspace opacity of the right upper lobe , not significantly changed from 02/28/2020.
[2020-02-29] MEDS ORDERED: DEXTROSE 5% IN WATER 1,000 ML IV ONE (08:29)
--- NOTE | 2020-02-29 09:32 | P.PN ---
Subjective Progress Note Date: 02/29/20 Principal diagnosis: Polytrauma Patient stable on the ventilator. Low-grade fever 100.2, white blood cell count 19.9. Patient having a bronchoscopy today. Tolerating tube feeds. No bowel movement. Objective - Vital Signs Vital signs: Vital Signs Temp 100.2 F H 02/29/20 08:00 Pulse 95 02/29/20 08:00 Resp 26 H 02/29/20 08:00 BP 149/71 02/29/20 08:00 Pulse Ox 97 02/29/20 08:00 Intake & Output 02/28/20 02/29/20 02/29/20 18:59 06:59 18:59 Intake Total 9183.257 9830.399 236.452 Output Total 1020 1345 210 Balance 664.611 435.399 26.452 Weight 91.8 kg Intake: IV 220 740 40 Sodium Chloride 0.9% 1, 220 240 40 000 ml @ 20 mls/hr IV . Q24H [facility] Rx#:[id number] Vancomycin 1,750 mg In 500 Sodium Chloride 0.9% 500 ml 500 ml @ 167 mls/hr IVPB Q12H [facility] Rx#: [id number] Intake, IV Titration 904.611 350.399 66.452 Amount Cefepime 2 gm In Sodium 100 Chloride 0.9% 100 ml @ 25 mls/hr IVPB Q12HR [facility] Rx #:[id number] Diltiazem 125 mg In 89.000 Sodium Chloride 0.9% 100 ml @ Per Protocol IV .Q0M [facility] Rx#:[id number] Morphine Sulfate (100 mg/ 55.386 2 ml) 100 mg In Sodium Chloride 0.9% 100 ml @ 2 MG/HR 2.04 mls/hr IV . Q24H [facility] Rx#:[id number] Vancomycin 1,750 mg In 500 Sodium Chloride 0.9% 500 ml 500 ml @ 167 mls/hr IVPB ONCE ONE Rx#: [id number] propofoL 1,000 mg In 160.225 350.399 66.452 Empty Bag 1 bag @ Titrate IV .Q0M [facility] Rx#: [id number] Tube Feeding 500 600 100 Other 60 90 30 Output: Chest Tube Drainage 320 300 30 Chest Tube Left Upper 320 300 30 Lateral Chest Urine 700 1045 180 Other: Voiding Method Indwelling Catheter Indwelling Catheter Indwelling Catheter ABP, PAP, CO, CI - Last Documented Arterial Blood Pressure 111/102 - Exam Abdomen: Soft, nondistended, nontender, dressing clean and dry - Labs CBC & Chem 7: 02/29/20 04:31 02/29/20 04:31 Labs: Abnormal Lab Results - Last 24 Hours (Table) 02/28/20 02/28/20 02/28/20 Range/Units 05:08 12:14 18:23 WBC (3.8-10.6) k/uL RBC (4.30-5.90) m/uL Hgb (13.0-17.5) gm/dL Hct (39.0-53.0) % MCHC (31.0-37.0) g/dL RDW (11.5-15.5) % Plt Count (150-450) k/uL Neutrophils # (Manual) (1.3-7.7) k/uL Monocytes # (Manual) (0-1.0) k/uL Eosinophils # (Manual) (0-0.7) k/uL Metamyelocytes # (Man) (0) k/uL Myelocytes # (Manual) (0) k/uL Nucleated RBCs (0-0) /100 WBC ABG pO2 (83-108) mmHg ABG HCO3 (21-25) mmol/L ABG Total CO2 (19-24) mmol/L ABG O2 Saturation (94-97) % Sodium (137-145) mmol/L Chloride (98-107) mmol/L BUN (9-20) mg/dL Glucose (74-99) mg/dL POC Glucose (mg/dL) 144 H 132 H (75-99) mg/dL Vitamin B12 1496.0 H (200.0-944.0) pg/mL 02/28/20 02/29/20 02/29/20 Range/Units 23:32 04:31 04:31 WBC 19.9 H (3.8-10.6) k/uL RBC 2.89 L (4.30-5.90) m/uL Hgb 8.2 L (13.0-17.5) gm/dL Hct 26.7 L (39.0-53.0) % MCHC 30.7 L (31.0-37.0) g/dL RDW 16.1 H (11.5-15.5) % Plt Count 569 H (150-450) k/uL Neutrophils # (Manual) 13.90 H (1.3-7.7) k/uL Monocytes # (Manual) 1.59 H (0-1.0) k/uL Eosinophils # (Manual) 1.99 H (0-0.7) k/uL Metamyelocytes # (Man) 0.60 H (0) k/uL Myelocytes # (Manual) 0.20 H (0) k/uL Nucleated RBCs 26 H (0-0) /100 WBC ABG pO2 (83-108) mmHg ABG HCO3 (21-25) mmol/L ABG Total CO2 (19-24) mmol/L ABG O2 Saturation (94-97) % Sodium 148 H (137-145) mmol/L Chloride 117 H (98-107) mmol/L BUN 36 H (9-20) mg/dL Glucose 124 H (74-99) mg/dL POC Glucose (mg/dL) 128 H (75-99) mg/dL Vitamin B12 (200.0-944.0) pg/mL 02/29/20 02/29/20 Range/Units 05:28 07:43 WBC (3.8-10.6) k/uL RBC (4.30-5.90) m/uL Hgb (13.0-17.5) gm/dL Hct (39.0-53.0) % MCHC (31.0-37.0) g/dL RDW (11.5-15.5) % Plt Count (150-450) k/uL Neutrophils # (Manual) (1.3-7.7) k/uL Monocytes # (Manual) (0-1.0) k/uL Eosinophils # (Manual) (0-0.7) k/uL Metamyelocytes # (Man) (0) k/uL Myelocytes # (Manual) (0) k/uL Nucleated RBCs (0-0) /100 WBC ABG pO2 64 L (83-108) mmHg ABG HCO3 30 H (21-25) mmol/L ABG Total CO2 31 H (19-24) mmol/L ABG O2 Saturation 92.1 L (94-97) % Sodium (137-145) mmol/L Chloride (98-107) mmol/L BUN (9-20) mg/dL Glucose (74-99) mg/dL POC Glucose (mg/dL) 149 H (75-99) mg/dL Vitamin B12 (200.0-944.0) pg/mL Microbiology - Last 24 Hours (Table) 02/27/20 11:00 Gram Stain - Final Sputum Sputum Culture - Final Selina albicans 02/22/20 17:22 Blood Culture - Final Blood No Growth after 144 hours 02/26/20 15:10 Catheter Tip Culture - Final Catheter Tip Assessment and Plan (1) Post-splenectomy Narrative/Plan: Patient remains relatively stable. Attempts for nasogastric tube placement with bronchoscopy today. Patient may require PEG tube placement. Continue tube feeds. Current Visit: Yes Status: Acute Code(s): Z90.81 - ACQUIRED ABSENCE OF SPLEEN SNOMED Code(s): 877153323
[2020-02-29] MEDS ORDERED: CISATRACURIUM 2 MG/ML 5 ML VIAL IV ONE (09:54)
--- NOTE | 2020-02-29 10:29 | PN ---
PROGRESS NOTE This is a 70-year-old gentleman who is admitted to the hospital following a fall and splenic rupture. This morning he remains intubated on vent, still appears somewhat agitated. He is mechanically ventilated. Remains in sinus rhythm. I stopped his IV Cardizem yesterday following which he went back into atrial fibrillation and had to be started back on Cardizem, following which he is back in sinus rhythm. The patient is on amiodarone 200 b.i.d., Lipitor 20 daily, intravenous Cardizem. PHYSICAL EXAMINATION: On exam, heart rate is 95 beats per minute, blood pressure is 140/70, respiratory rate 24. Chest exam reveals diminished air entry at the bases. Heart exam reveals first and second heart sounds. No gallop. No murmur. Abdomen is soft, nontender. Exam of extremities reveal trace edema. Peripheral pulses are felt. LABORATORY DATA: Lab show that the white cell count is elevated. Hemoglobin is 8.2, potassium is 3.8, creatinine is 0.76. ASSESSMENT: 1. Status post fall and splenic rupture. 2. Paroxysmal atrial fibrillation. PLAN: Continue patient on current medications. He is not a candidate for anticoagulation. MMODL / IJN: [id number] /
--- NOTE | 2020-02-29 11:21 | XR ---
EXAMINATION TYPE: XR chest 1V portable DATE OF EXAM: 02/29/2020 CLINICAL HISTORY: Nasogastric tube placement TECHNIQUE: Portable supine view of the chest obtained COMPARISON: 02/29/2020 chest radiograph at 6:06 AM FINDINGS: Enteric tube distal tip and side-port overlie the projected area of the gastric fundus. Tr acheostomy tube, left-sided chest tube left PICC, and cardiac postsurgical changes unchanged. Diffuse patchy airspace opacities and focal opacity of the right upper lobe unchanged. Evaluation for pneumo thorax limited by supine technique. IMPRESSION: 1. Enteric tube distal tip and side-port overlie the projected area of the gastric fundus. 2. Aeration of the chest unchanged versus comparison at 6:06 AM.
[2020-02-29] MEDS: DILTIAZEM 125 MG in SODIUM CHLORIDE 0.9% 100 ML IV SCH (11:46)
[2020-02-29 12:04] LABS: Glucose,Whole Blood 126 mg/dL (75-99)
--- NOTE | 2020-02-29 12:11 | P.PN ---
Subjective Progress Note Date: 02/29/20 Principal diagnosis: Status post fall off ladder and significant trauma to chest and abdomen. This is a 69-year-old male patient who was working on his gutters when he fell off a 15 foot ladder. This was unwitnessed. He end up calling his who in turn called EMS and the patient was brought in to the emergency department. Upon arrival, the patient was hypotensive and he was in shock. The patient initial chest x-ray showed several left-sided fractures and small amount of subcutaneous air in addition to a left-sided pneumothorax. The x-ray of the pelvis showed no evidence of any fracture or dislocation. The CAT scan of the brain showed age-related atrophy and chronic small vessel ischemic changes without any acute intracranial process. CAT scan of cervical spine showed no acute abnormalities. On and has Been of the cervical spine was done and the bone and soft tissue windows showed no acute abnormalities. There was no evidence of any fracture. Along with multiple left-sided rib fractures third extending to the seventh rib. There was also spending the sedation with estimated grade 3 injury the patient. The patient's hemoglobin dropped to 10.5. The patient received a total of 2 L of IV fluid and 40 minutes of packed RBC. Morning hemoglobin today is At 13.4. The patient was taken to the operating room yesterday. The patient underwent a left-sided chest tube insertion. The patient also had splenectomy done and following that the patient was kept intubated on a mechanical ventilator and he was transferred to the intensive care unit. Note that the patient takes morphine outpatient basis and he has chronic pain and chronic narcotic requirements and on outpatient basis he takes morphine sulfate in the form of MS Contin 50 mg every 12 hours. Overnight, the patient was intubated on mechanical ventilator. He was sedated with a combination of propofol and he was also placed on morphine drip after being given several boluses control his pain. This morning, Profore is running at 70 mg per KG per minute. Morphine is running at 8 mg an hour. The patient is on normal saline at rate of 85 mL an hour. The patient has a left sided chest tube. Total amount of output is in order 110 mL of serosanguineous material without evidence of any air leak. The ventilator setting shows an assist- control mode rate of 20 with a tidal volume of 500 and FiO2 of 40% with a PEEP of 5. The patient's FiO2 is down to 40% overnight. The morning blood gases showed a pH of 7.4 with a pCO2 of 37 and pO2 of 121. The chest x-ray from this morning shows that the patient has an indwelling left-sided chest tube without any signs or pneumothorax. There is also a basilar pleural-based opacity along with multiple left-sided rib fractures and ET tube is in a good location. He is at approximately slightly swollen probably related to an infiltrated IV. He did not require any pressors. He remains hemodynamically stable. Lactic acid remains slightly elevated at 2.9 On 02/19/2020, the patient's seen for a follow-up. Earlier this morning, the patient was doing well and patient was well sedated on propofol at 70 g per KG per minute and morphine at 8 mg an hour. He was on a mechanical ventilator on assist control mode at the rate of 20 with a tidal volume of 500 and FiO2 of 40% with a PEEP of 5. His chest x-ray showed no acute abnormalities. There was no evidence of any pneumothorax. The patient left-sided chest tube in place. No evidence of any air leak. The chest x-ray showed multiple left-sided rib fractures, stable right medial basilar atelectasis, stable left basilar infiltrate/atelectasis. No other acute abdominal masses otherwise noted. As for the blood gases, the patient a pH of 7.49 with a pCO2 of 31 and pO2 of 84. The patient was hemodynamically stable on no pressors. Hemoglobin was stable at 11.6. Lactic acid level is improved. Based on this, the patient was given a sedation holiday. Initially he recovered nicely from this sedation. He was kept on morphine for pain control at a lower dose of 12 mg an hour. He was taken off the propofol. He was given as pertains breathing trial and he seemed to be quite comfortable and he was getting progressively more restless. At that point, I made decision to extubate the patient, and he was placed on oxygen by nasal cannula. The first 20-30 minutes, the patient did well post extubation. Subsequently, he became progressively more restless, agitated, he was having tremors and he was thrashing around. He was not following any commands. He became progressively more tachycardic. He went into atrial fibrillation with rapid ventricular response with a heart rate in the 180s. He became HYPERTENSIVE with systolic blood pressure went up to 200s. Based on all this, the patient was started on side effects drip for blood pressure control. I thought that the patient was withdrawing from alcohol. It's clear to me that the patient has a component of alcoholism and it was noted that the patient was intoxicated alcohol at time of admission. As such, he could have been in delirium tremens. He was given a total of 4 mg of Ativan without any major impr ovement. At that point, I decided to reintubate the patient. He was placed again on propofol and morphine drip was continued and he was intubated in the intensive care unit without any major difficulties. A triple lumen cath was also inserted. As for atrial fibrillation, the patient was started on amiodarone drip per protocol. Chest x-ray post intubation showed no acute abnormalities. She wasn't in that location. Triple lumen catheter was also in good location. NG tube was also be inserted. 02/20/2020, the patient is sedated on a mechanical ventilator. He failed extubation yesterday because of activity delirium tremens. He was restarted back on propofol running at 50, respiratory KG per minute and morphine at 6 mg an hour. He is also on normal saline at 0.9 percent at 100 mL an hour. He was running a lower blood pressure yesterday. He was given a bolus of IV fluids and a second bolus was given to him today. Both boluses are 1 L. The patient has converted back into normal sinus rhythm. Note that he was loaded with amiodarone yesterday and he was kept on amiodarone throughout the day and currently amiodarone is running at 0.5 mg per minute. A. fib RVR has recovered and the patient is back into normal sinus rhythm. He remains on a mechanical ventilator. He is an assist-control mode at the rate of 20 with a tidal volume of 500 and FiO2 40% with a PEEP of 5. A blood gas showed a pH of 7.48 with a pCO2 of 27 and pO2 of 97. The patient is afebrile. The patient has a clear abdominal wounds. The chest tube on the left is still in place without evidence of any air leak and output from the chest tube has been serosanguineous in order of 240 mL over the past 24 hours. Urine output is adequate. No other significant events overnight. On 02/21/2020 and seeing the patient for a follow-up in the intensive care unit. The patient is on a combination of propofol and morphine sulfate. Propofol is running at 55 g per KG pigmented emotional sulfate is 4 mg an hour. He is calm and comfortable. He is an assist-control mode at the rate of 20 with a tidal volume of 500 and a FiO2 of 40% with a PEEP of 5. His morning blood gases showed a pH of 7.45 with a pCO2 of 32 and pO2 129. Chest x-ray showing some limited atelectatic changes and infiltration of the lung bases. The patient's chest x-ray showed no evidence of any pneumothorax. The output from the left- sided chest tube is in the order of 10 25 mL over the past 24 hours and there is no evidence of any air leak. The patient is calm and comfortable. I'm going to give him a sedation holiday. I'm going to consider Precedex instead of propofol as an alternative sedative medication and assess the patient's underlying mental status. He is hemodynamically stable. He has required no pressors. He remains in sinus rhythm. Amiodarone is currently discontinued. Is tolerating his enteral feeding for nutritional support. 02/22/2020, the patient is being seen in follow-up. I tried to make an adjustment in the patient's sedation. I stopped the propofol yesterday and switch the patient to Precedex. I Do morphine sulfate. The patient did well for quite some time. Subsequently he became again agitated restless pulling on his tubes and it was very difficult to control his agitation. Based on that, I stopped the Precedex and put him back on propofol. Currently he is intubated on a mechanical ventilator and propofol is running at 60 mics of respiratory KG per minute and the patient is also morphine sulfate a 4 mg an hour. He is in a positive fluid balance and the patient would benefit from diuresis. He is on no pressors. Left-sided chest tube is in place and output is around 2 50 mL over the past 12 hours. There is no evidence of air leak. Chest x-ray showing bilateral pulmonary infiltrates slightly worse on the right. The patient remains on a mechanical ventilation. He is on assist-control at the rate of 20 with a tidal volume of 500 and FiO2 of 40% with a PEEP of 5. PH is at 7.4 with a pCO2 of 38 and pO2 of 100. He is taken his enteral feeding and he is receivi ng vital high protein at the rate of 30 mL an hour. No other complaints or issues for now. No fever. No chills. His blood pressure was somewhat elevated and he was briefly given Cleviprex for blood pressure control which is still running at 1 mg an hour and this will be weaned off. He remains on empiric antibiotic coverage with IV Zosyn. Repeat blood cultures came back negative. Patient was reevaluated today on 02/23/20, remains in the ICU, intubated and mechanically ventilated. His ventilator settings are assist control rate of 20 tidal volume of 500 FiO2 is 40% PEEP is 5. Peak airway pressure is 24 plateau pressure is 20. Patient remains on propofol at 70 mcg/kg/m morphine sulfate at 4 mg per hour IV fluid at KVO chest tube is at waterseal. No evidence of air leak. Chest x-ray showed slight improved aeration of the lungs at the bases bilaterally. Small bilateral pleural effusions and small areas of bibasilar opacities. Could be aspiration pneumonia related or could be atelectasis. Multiple left-sided displaced rib fractures are noted. ABG showed a pO2 of 73 pCO2 of 38 pH of 7.47 WBC count is 22.1 hemoglobin is 9.5. Basic metabolic profile is normal, renal profile is normal. Today I have suggested sedation holiday. And depending on how he does with a sedation holiday, may or may not proceed with a weaning trial. However the patient gets extremely agitated he will be back on propofol and not ready to wean. This will be decided upon depending on his clinical status off sedation. All meds were reviewed, patient remains on Zosyn for presumptive aspiration pneumonia. Reevaluated today on 02/24/20, remains in the ICU, intubated and mechanically ventilated. Ventilator settings are assist control rate of 20 tidal volume is 500 FiO2 is 40% PEEP of 5 ABG showed a pO2 of 67 pCO2 of 39 pH of 7.47 hence his FiO2 was increased to 45%. Patient remains on morphine at 2 mg/h propofol at 45 mcg/kg/m IV fluid at KVO patient is hemodynamically stable not requiring any pressors. He is in sinus rhythm. Chest tube remains in place, and it drained 370 mL of serous drainage over the last 24 hours. Tube feeding is progressing, patient is at 50 ML per hour/goal. My plan today is to hold sedation and narcotics, will start the patient on Precedex, and I plan to give the patient at least a weaning trial on Precedex. Chest x-ray and labs were all reviewed, ches t x-ray is suggestive of bilateral infiltrates, most likely aspiration pneumonia related. His WBC count seems to be on the rise today. However no clear-cut evidence of infection. Patient remains empirically on antibiotics Reevaluated today on 02/25/20, patient remains in the ICU, intubated and mec hanically ventilated. His ventilator settings are assist-control rate 20 tidal volume 500 FiO2 45% PEEP of 5 ABG showed a pO2 of 68 pCO2 of 43 pH of 7.43 patient developed atrial fibrillation with RVR last night, placed on amiodarone drip, remains on amiodarone drip at present, cardiology was consulted. Chest x- ray is showing worsening infiltrates and possibly some component of interstitial edema bilaterally. Hence one dose of Lasix was given today, and will continue to monitor the chest x-ray findings, I believe the findings are more or less related to aspiration pneumonia. Doubt congestive heart failure. Patient is on IV fluids at KVO propofol at 20 mcg/kg/m morphine sulfate 3 mg per hour. Trial of weaning has been attempted every day, however the patient gets extremely agitated of sedation, he was also agitated on Precedex when we took him off propofol and morphine. Clearly he is going to be a failure to wean, and has been so far. His was approached again today, and recommended tracheostomy and PEG tube placement. This was also discussed with the surgeon and he will discuss the procedures with the . Reevaluated today on 02/26/20, patient remains in the ICU, on mechanical ventilation, he is status post tracheostomy, postoperative day #1. Patient is on assist control rate of 20 tidal volume is 500 FiO2 45% PEEP of 5 ABG showed a pO2 of 71 pCO2 of 39 pH of 7.46. Remains on morphine sulfate which I cut it down to 1 mg/h, he is now temporarily off propofol to assess his mental status, and his IV amiodarone was switched to oral amiodarone to be given via nia ogastric tube. Chest x-ray continues to show bilateral infiltrates, right more so than left, suspect underlying aspiration pneumonia, remains on Zosyn. Patient is sedated, slightly agitated, opens eyes to verbal stimuli, but does not follow any verbal instructions. Patient had good urine output over the last 24 hours, and he is in a negative fluid balance. Left-sided chest tube drained about 150 mL over the last 24 hours. The fluid is mostly serosanguineous. Patient may have a PEG tube placement today, in the meantime he continues to have an orogastric tube in place. Patient is hemodynamically stable, remains in sinus rhythm. Reevaluated today on 02/27/20, remains in the ICU, intubated and mechanically ventilated. ABG showed a pO2 of 62 pCO2 of 38 pH of 7.48, ventilator settings are assist control rate of 20 tidal volume 500 FiO2 45% PEEP of 5 and his low pO2 I increased his FiO2 to 50% and increased PEEP to 8. Chest x-ray is showing worsening infiltrates especially in the right upper lobe. And he has a left perihilar infiltrate. This morning the patient was only on morphine at 2 mg per hour, and he was noted to be again agitated, thrashing in bed, and developed worsening atrial fibrillation with RVR, placed on Cardizem drip at 5 mg per hour. Considering the extreme agitation that I noted, recommended that the patient goes back on propofol, ordered a neurology consult on the patient, ordered CT of the head, and also recommended a CT of the abdomen and pelvis. Clearly the patient is not ready to be weaned or extubated at this point. Patient was seen by neurology, and it was felt that the patient may have metabolic toxic encephalopathy. Continues to have leukocytosis with WBC count of 18.9, and low-grade fever intermittently, CT of the abdomen is pending. Reevaluated today on 02/28/20, patient remains in the ICU, mechanically ventilated, ventilator settings are assist control rate of 20 tidal volume 500 FiO2 50% and PEEP of 8. His ABG showed a pO2 of 79 pCO2 44 pH of 7.44. Patient remains on propofol drip, presently at 40 mEq per kilo per minute. Morphine sulfate at 2 mg per hour and I cut it down to 1 mg/h Cardizem drip at [address] of the abdomen and CT of the brain were basically nondiagnostic. Continues to have about 200 mL of serous drainage from the left sided chest tube over the last 24 hours. Patient continues to have intermittent episodes of extreme agitation off propofol on a daily basis today I recommended that we stop propofol again and cut down morphine sulfate 1 mg/h, and assess mental status, try to hold sedation as much as possible as long as the patient is not pulling his lines and his catheters. We have been attempting to wean the patient almost on a daily basis of sedation and narcotics, and he gets extremely agitated making it extremely difficult to wean and extubate. Patient is already status post tracheostomy, technically could not have a PEG tube placement. And this would be readdressed next week. Chest x-ray continues to show bilateral infiltrates, slightly improved today compared to the last chest x-ray. Reevaluated today on 02/29/20, patient remains in the ICU, intubated and mechanically ventilated. Patient was off sedation for about 3 hours yesterday, he developed later on extreme agitation, and went into atrial fibrillation with RVR, had to be sedated placed back on Cardizem drip, and he converted later on to sinus rhythm. Patient has a worsening chest x-ray with worsening right upper lobe, and suspicious for endobronchial mucous plugging, hence I performed bronchoscopy and BAL of the right upper lobe, there was no evidence of purulent secretions, however that tracheostomy was noted to be almost at the rony level, and I suspect it may be intermittently occluding the right upper lobe bronchus. Hence that tracheostomy was moved upwards and lavage of the right upper lobe was sent for different diagnostic studies. Patient is still on mechanical ventilation, he is presently on tidal volume of 500 assist control rate of 20 FiO2 50% PEEP of 8 ABG showed a pO2 of 64 pCO2 of 44 pH of 7.44. Chest tube continues to have about 200 mL of serous drainage. Patient is hemody namically stable. He is on propofol at 50 mcg/kg/m and morphine sulfate at 1 mg per hour. Sodium is elevated, hence I recommended D5W and recommended free water via orogastric tube. His orogastric tube was changed to a nasogastric tube today, and I did this with the lightest scope guidance. I was able to guide a nasogastric tube into the esophagus by direct visualization. And I was able to pull the old orogastric tube. Patient will be placed back on enteral feeding which he has been tolerating all along. Objective - Vital Signs Vital signs: Vital Signs Temp 100.2 F H 02/29/20 08:00 Pulse 81 02/29/20 11:00 Resp 23 02/29/20 11:00 BP 147/73 02/29/20 11:00 Pulse Ox 96 02/29/20 11:00 Intake & Output 02/28/20 02/29/20 02/29/20 18:59 06:59 18:59 Intake Total 1675.828 3397.399 806.987 Output Total 1020 1345 520 Balance 664.611 435.399 286.987 Weight 91.8 kg Intake: IV 220 740 60 Sodium Chloride 0.9% 1, 220 240 60 000 ml @ 20 mls/hr IV . Q24H [facility] Rx#:[id number] Vancomycin 1,750 mg In 500 Sodium Chloride 0.9% 500 ml 500 ml @ 167 mls/hr IVPB Q12H [facility] Rx#: [id number] Intake, IV Titration 904.611 350.399 466.987 Amount Cefepime 2 gm In Sodium 100 Chloride 0.9% 100 ml @ 25 mls/hr IVPB Q12HR [facility] Rx #:[id number] Dextrose 5% in Water 1, 150 000 ml @ 75 mls/hr IV . [id number] [facility] Rx#:[id number] Diltiazem 125 mg In 89.000 113.833 Sodium Chloride 0.9% 100 ml @ Per Protocol IV .Q0M [facility] Rx#:[id number] Morphine Sulfate (100 mg/ 55.386 26.248 2 ml) 100 mg In Sodium Chloride 0.9% 100 ml @ 2 MG/HR 2.04 mls/hr IV . Q24H [facility] Rx#:[id number] Vancomycin 1,750 mg In 500 Sodium Chloride 0.9% 500 ml 500 ml @ 167 mls/hr IVPB ONCE [facility] Rx#: [id number] propofoL 1,000 mg In 160.225 350.399 176.906 Empty Bag 1 bag @ Titrate IV .Q0M [facility] Rx#: [id number] Tube Feeding 500 600 250 Other 60 90 30 Output: Chest Tube Drainage 320 300 30 Chest Tube Left Upper 320 300 30 Lateral Chest Urine 700 1045 490 Other: Voiding Method Indwelling Catheter Indwelling Catheter Indwelling Catheter ABP, PAP, CO, CI - Last Documented Arterial Blood Pressure 111/102 - Exam Physical Exam: Revealed a 69-year-old white male, sedated, mechanically ventilated, in no distress. Remains sedated with propofol and morphine Head: Atraumatic, normocephalic, tracheostomy is intact, and orogastric tube is in place. HEENT:[Neck is supple.] [No neck masses.] [No thyromegaly.] [No JVD.] PERRLA, E HARSH, no icterus. Chest: Symmetrical chest expansion, crackles and rhonchi bilaterally.. Left sided chest tube is noted. Serosanguineous drainage about 200 mL over the last 24 hours. Cardiac Exam: Distant S1 and S2, no S3 gallop. No murmur. Abdomen: [Soft, nontender, no megaly, no rebound, no guarding, normal bowel sounds.] Extremities: No clubbing, edema or cyanosis. Good pulses bilaterally. Neurological Exam: Pupils are equally reactive to light, opens eyes to verbal stimuli, no purposeful movement Psychiatric: Could not be assessed Musculoskeletal: Good muscle tone, otherwise could not be assessed, no deformities. - Labs CBC & Chem 7: 02/29/20 04:31 02/29/20 04:31 Labs: Abnormal Lab Results - Last 24 Hours (Table) 02/28/20 02/28/20 02/28/20 Range/Units 05:08 12:14 18:23 WBC (3.8-10.6) k/uL RBC (4.30-5.90) m/uL Hgb (13.0-17.5) gm/dL Hct (39.0-53.0) % MCHC (31.0-37.0) g/dL RDW (11.5-15.5) % Plt Count (150-450) k/uL Neutrophils # (Manual) (1.3-7.7) k/uL Monocytes # (Manual) (0-1.0) k/uL Eosinophils # (Manual) (0-0.7) k/uL Metamyelocytes # (Man) (0) k/uL Myelocytes # (Manual) (0) k/uL Nucleated RBCs (0-0) /100 WBC ABG pO2 (83-108) mmHg ABG HCO3 (21-25) mmol/L ABG Total CO2 (19-24) mmol/L ABG O2 Saturation (94-97) % Sodium (137-145) mmol/L Chloride (98-107) mmol/L BUN (9-20) mg/dL Glucose (74-99) mg/dL POC Glucose (mg/dL) 144 H 132 H (75-99) mg/dL Vitamin B12 1496.0 H (200.0-944.0) pg/mL 02/28/20 02/29/20 02/29/20 Range/Units 23:32 04:31 04:31 WBC 19.9 H (3.8-10.6) k/uL RBC 2.89 L (4.30-5.90) m/uL Hgb 8.2 L (13.0-17.5) gm/dL Hct 26.7 L (39.0-53.0) % MCHC 30.7 L (31.0-37.0) g/dL RDW 16.1 H (11.5-15.5) % Plt Count 569 H (150-450) k/uL Neutrophils # (Manual) 13.90 H (1.3-7.7) k/uL Monocytes # (Manual) 1.59 H (0-1.0) k/uL Eosinophils # (Manual) 1.99 H (0-0.7) k/uL Metamyelocytes # (Man) 0.60 H (0) k/uL Myelocytes # (Manual) 0.20 H (0) k/uL Nucleated RBCs 26 H (0-0) /100 WBC ABG pO2 (83-108) mmHg ABG HCO3 (21-25) mmol/L ABG Total CO2 (19-24) mmol/L ABG O2 Saturation (94-97) % Sodium 148 H (137-145) mmol/L Chloride 117 H (98-107) mmol/L BUN 36 H (9-20) mg/dL Glucose 124 H (74-99) mg/dL POC Glucose (mg/dL) 128 H (75-99) mg/dL Vitamin B12 (200.0-944.0) pg/mL 02/29/20 02/29/20 02/29/20 Range/Units 05:28 07:43 12:03 WBC (3.8-10.6) k/uL RBC (4.30-5.90) m/uL Hgb (13.0-17.5) gm/dL Hct (39.0-53.0) % MCHC (31.0-37.0) g/dL RDW (11.5-15.5) % Plt Count (150-450) k/uL Neutrophils # (Manual) (1.3-7.7) k/uL Monocytes # (Manual) (0-1.0) k/uL Eosinophils # (Manual) (0-0.7) k/uL Metamyelocytes # (Man) (0) k/uL Myelocytes # (Manual) (0) k/uL Nucleated RBCs (0-0) /100 WBC ABG pO2 64 L (83-108) mmHg ABG HCO3 30 H (21-25) mmol/L ABG Total CO2 31 H (19-24) mmol/L ABG O2 Saturation 92.1 L (94-97) % Sodium (137-145) mmol/L Chloride (98-107) mmol/L BUN (9-20) mg/dL Glucose (74-99) mg/dL POC Glucose (mg/dL) 149 H 126 H (75-99) mg/dL Vitamin B12 (200.0-944.0) pg/mL Microbiology - Last 24 Hours (Table) 02/27/20 11:00 Gram Stain - Final Sputum Sputum Culture - Final Selina albicans 02/22/20 17:22 Blood Culture - Final Blood No Growth after 144 hours 02/26/20 15:10 Catheter Tip Culture - Final Catheter Tip Assessment and Plan Assessment: Impression: Status post fall off a ladder with trauma to chest and abdomen. Grade 3 laceration of the spleen, post splenectomy postoperative day #12 Traumatic left-sided rib fractures with 30% pneumothorax requiring chest tube placement. No air leak, continues to have serosanguineous drainage. Acute hemorrhagic shock on presentation. Acute blood loss anemia and patient received a total of 4 units of packed RBCs since admission. Acute hypoxic respiratory failure secondary to extreme agitation and delirium tremors requiring sedation, and detoxification, there is also possibly a component of aspiration pneumonia, resolved, I believe the findings in the right upper lobe are most likely secondary to tracheostomy tip close to the right mainstem bronchus and at times probably closing the right upper lobe bronchus. Status post bronchoscopy and lavage of the right upper lobe. Chronic neck pain, patient is maintained chronically on MS Contin, remains on morphine drip. Coronary artery disease and previous CABG Dyslipidemia Paroxysmal atrial fibrillation presently in normal sinus rhythm. New onset atrial fibrillation with RVR, converted with amiodarone drip. Failure to wean, status post tracheostomy on 02/25/20. Toxic metabolic encephalopathy, acute. Status post PICC line placement postoperatively #3, his central line was discontinued and cultures were ordered. No growth in the last 24 hours. Status post bronchoscopy and lavage of the right upper lobe done on 02/29/20. Recommendation: Continue ventilatory support, continue daily sedation holidays. Underwent bronchoscopy and lavage of the right upper lobe Underwent placement of new nasogastric tube and the old orogastric tube was removed. This was done with glidedoscope colitis. CT of the head, CT of the abdomen and pelvis are basically unremarkable. Continue Cardizem drip. Continue amiodarone. Continue GI and DVT prophylaxis. Continue enteral feeding via nasogastric tube. Continue IV Zosyn, repeat sputum cultures were ordered. Awaiting cultures from the BAL of the right upper lobe, Continue chest tube in place for now, continues to have more than 200 mL of drainage in the last 24 hours. Remains critically ill, critical care time is 31 minutes, not including the time spent on procedures/bronchoscopy and nasogastric tube placement which was difficult and I had to use a glide scope. Time with Patient: Greater than 30
[2020-02-29] MEDS: QUEtiapine 50 MG TAB PO SCH ×2 (12:38→20:39)
[2020-02-29] MEDS: THIAMINE 100 MG TAB PO SCH (12:38)
[2020-02-29] MEDS: DOCUSATE ORAL SOLN 100 MG/10 ML CUP PO SCH ×2 (12:39→20:39)
[2020-02-29] MEDS: ENOXAPARIN 40 MG/0.4 ML SYRINGE SQ SCH (12:39)
[2020-02-29] MEDS: AMIODARONE 200 MG TAB PO SCH ×2 (12:39→20:38)
[2020-02-29] MEDS: CEFEPIME 2 GM in SODIUM CHLORIDE 0.9% 100 ML IVPB SCH ×2 (12:39→20:38)
[2020-02-29] MEDS: CHLORHEXIDINE GLUCONATE 15 ML CUP MUCOUS MEM SCH ×2 (12:39→20:38)
[2020-02-29] MEDS: CLEVIDIPINE BUTYRATE 25 MG in EMPTY BAG 1 BAG IV SCH (12:40)
[2020-02-29] MEDS: SODIUM CHLORIDE 0.9% 1,000 ML IV SCH (12:40)
[2020-02-29] MEDS: MORPHINE SULFATE (100 MG/2 ML) 100 MG in SODIUM CHLORIDE 0.9% 100 ML IV SCH ×2 (13:31→15:16)
--- NOTE | 2020-02-29 13:56 | OP ---
OPERATIVE REPORT PROCEDURE: Bronchoscopy, right upper lobe lavage. PREOPERATIVE DIAGNOSIS: Right upper lobe pneumonia. POSTOPERATIVE DIAGNOSIS: Right upper lobe pneumonia. ANESTHESIA: The patient was already on propofol drip, morphine drip, and he was given 10 mg of Nimbex prior to the procedure. DESCRIPTION: The patient was placed in a supine position, an adapter was applied to the tracheostomy and it was connected to mechanical ventilation. After adequate anesthesia and after Nimbex was given, the bronchoscope was advanced through the adapter of that tracheostomy, and I was able to insert a disposable bronchoscope down to the tracheostomy site, and advanced into the area of the rony. The tip of the tracheostomy was actually at the level of the rony, pointing toward the right side. I was able to manipulate the tracheostomy, and thorough examination was done of the right upper lobe, right middle lobe, right lower lobe, left upper lobe lingula and left lower lobe. There was no evidence of any purulent secretions. The right upper lobe was lavaged, and the fluid was sent for different diagnostic studies. However, considering the right upper lobe noted to be relatively unremarkable, I felt most likely the tip of the tracheostomy is actually going intermittently into the right mainstem bronchus and probably occluding the right upper lobe bronchus, making the area sort of abnormal and suspicious for pneumonia and mucus plug. There was no evidence of mucus plug and there was no evidence of pneumonia. The tracheostomy was adjusted and pulled out about 2 cm from the rony proximally. The procedure was well tolerated, and there was no evidence of any immediate complications. However, fluid from the upper lobe lavage was sent for studies and these are pending. MMODL / IJN: [id number] /
--- NOTE | 2020-02-29 16:31 | P.PN ---
Subjective 69-year-old male was cleaning gutters fell from skin feet ladder was brought into emergency department found to have several left-sided fractures left-sided pneumothorax with a left-sided chest tube presently patient is presently intubated patient has multiple left-sided fractures from third to seventh rib patient also had a splenectomy for splenic injury. Patient is presently sedated with propofol and also morphine drip patient is presently on ventilatory support blood gases showed normal pH pCO2 and pO2 are within normal limits as well pat ient is presently onZosyn patient had lactic acidosis secondary tolactated Ringer's. Patient is hyperchloremic because of which probably will start him on half-normal saline. 02/19/2020 Patient is expected today and shortly after that patient didn't tolerate that and patient ended up undergoing an atrial fibrillation patient was started on amiodarone patient was subsequently reintubated. Patient is bit hyponatremic because of extensive switching the IV fluids to normal saline instead of half- normal saline. Patient is also getting amiodarone. D5 water. Patient is not requiring any pressors at this time. Please refer to intensive is documentation for further details of ventilator settings. 02/20/2020 Patient developed ongoing trial patient is having sedation vacation patient heart rate is better controlled patient overall clinical condition is bit better today 02/21/2020 Patient still in the ICU, he is intubated and sedated. Chest tube is in place and it hasn't output about 325 in 24 hours, propofol was switched to Paradox by critical care team. Pulmonary/critical care troponin measuring the event, sugar was low but most likely this is a false reading because patient is edematous. Surgical wound in the middle of the abdomen it looks clean and dry and closed. Patient is getting IV morphine. Creatinine and electrolytes are normal. Echocardiogram showing ejection fraction of 55-60% with moderate to severe mitral regurgitation His WBCs 17.3 K. Liver enzymes are trending down 02/22/2020 Patient the ICU, he could not tolerate the current sedative and he had to be placed back on the propofol, he got agitated overnight and he needed restraints. These making about 1 5200 mL of chest tube drainage every 12 hours Lasix is added. Also he had low-grade temperature and mild increase in WBC, he still on Zosyn and IV on the case. Cultures are negative so far 02/23/2020 Patient remains in the ICU, intubated and sedated on a propofol, he looks calm. Patient undergoing sedation holiday and pulmonary team managing his vent He still has low-grade fever 99.7, leukocytosis or interrupted 22K. BMP is unremarkable. Cultures are negative so far, infectious disease and pulmonary/critical care team on the case. Chest x-ray showing unchanged radiographic appearance of tubes and lines, mildly improved aeration of bilateral lung bases with persistent small bilateral pleural effusions and bibasilar air space opacity and multiple left-sided displaced rib fractures Currently he is on Zosyn 02/24/2020 Patient still intubated and sedated, he undergoing sedation holiday and he wakes up then to be breathing trial Patient is improving on Zosyn, no fever however culture are negative. Patient is still getting intermittent feeding. Chest tube still on the left side with about 150-200 mL of discharge every 12 hour period , surgery team on the case patient may need a PEG tube and tracheostomy if he fails a voiding trial 02/24 Patient remains in the ICU intubated and sedated, despite being on Precedex. Today he developed A. fib with RVR, he has history of A. fib. before, he Is currently not on anticoagulation other than DVT prophylaxis with Lovenox due to his hematoma. Patient was started on amiodarone drip, his rate is controlled, is controlled. Computed tomography scan of the abdomen is requested to assess his hematoma. He still has fever at 100.1 Hemoglobin is 8.8, which is stable compared to yesterday. PH normal 7.4 with normal pCO2 at 43 and low pO2 at 68, BMP is unremarkable and sugar is controlled. Surgical team were consulted for possible PEG and tracheostomy Prognosis remains very guarded. 02/26/20 Patient still on ventilation, he got tracheostomy yesterday and hysterectomy that well. Sedation is off however patient is restless and agitated, however patient does not follow, He developed another atrial fibrillation with rapid rate and he was started on amiodarone drip at 0.5. Cardizem may be added as well. Cardiology of the case Surgery team are following the patient for possible PEG placement. Possibly today. Patient remains on Zosyn, amiodarone, which can be switched to oral per [employer] and Cardizem as needed 02/28/20 Patient remains in the ICU, his status post tracheostomy, PEG tube placement was postponed f by surgery team. He still has PICC line and left-sided chest tube with more than 100 mL of fluid draining but it is serous. Antibiotics has changed from Zosyn to vancomycin and cefepime, catheter tip culture and sensitivity was sent. CT of the abdomen and pelvis showing increased left basilar, CT. Neurologist neurologist evaluated the patient and EEG is negative for epileptiform activity but showing severe encephalopathy WBC is 19 KI patient has no fever today Neurologist recommended MRI of the brain and cervical spine when she is more stable 02/29/20 Patient remains intubated and sedated on a propofol, tracheostomy in this place, also left-sided chest tube with service discharge only. Patient underwent bronchoscopy and bronchoalveolar lavage of the right upper lobe, and follow-up the results Patient is hemodynamically stable WBC still 19 K and sodium 148. Patient remains on antibiotics per infectious disease recommendation. And she was followed also by pulmonary/critical care team, surgery team. Review of systems: N/ Active Medications Generic Name Dose Route Start Last Admin Trade Name Freq PRN Reason Stop Dose Admin Acetaminophen 650 mg 02/20/20 22:00 02/29/20 00:49 Tylenol Tab PO 650 mg Q6HR PRN Administration Fever and/ or Pain Amiodarone HCl 200 mg 02/27/20 09:00 02/29/20 12:39 Cordarone PO 200 mg BID BETTINA Administration Atorvastatin Calcium 20 mg 02/18/20 21:00 02/28/20 20:57 Lipitor PO 20 mg HS BETTINA Administration Chlorhexidine Gluconate 15 ml 02/18/20 12:00 02/29/20 12:39 Peridex MUCOUS MEM 15 ml BID BETTINA Administration Docusate Sodium 100 mg 02/26/20 09:00 02/29/20 12:39 Colace Oral Soln PO 100 mg BID BETTINA Administration Enoxaparin Sodium 40 mg 02/18/20 09:00 02/29/20 12:39 Lovenox SQ 40 mg DAILY BETTINA Administration Finasteride 5 mg 02/18/20 21:00 02/28/20 20:57 Proscar PO 5 mg HS BETTINA Administration Morphine Sulfate 100 mg/ 102 mls @ 2.04 mls/hr 02/17/20 21:30 02/29/20 15:17 Sodium Chloride IV 2 mg/hr .Q24H BETTINA 2.04 mls/hr Infusion 2 MG/HR Propofol 1,000 mg/ IV Solution 100 mls @ 0 mls/hr 02/17/20 22:45 02/29/20 15:20 IV 75 mcg/kg/min .Q0M BETTINA 41.31 mls/hr Titration Protocol Titrate Sodium Chloride 1,000 mls @ 20 mls/hr 02/19/20 11:45 02/29/20 12:40 Saline 0.9% IV Not Given .Q24H BETTINA Clevidipine 25 mg/ IV Solution 50 mls @ 2 mls/hr 02/21/20 12:45 02/29/20 12:40 IV Not Given .Q24H BETTINA Protocol 1 MG/HR Diltiazem HCl 125 mg/ Sodium 125 mls @ 0 mls/hr 02/26/20 10:00 02/29/20 11:46 Chloride IV 5 mg/hr .Q0M BETTINA 5 mls/hr Administration Protocol Per Protocol Cefepime HCl 2 gm/ Sodium 100 mls @ 25 mls/hr 02/27/20 21:00 02/29/20 12:39 Chloride IVPB 25 mls/hr Q12HR BETTINA Administration Vancomycin HCl 1,750 mg/ 500 mls @ 167 mls/hr 02/28/20 05:00 02/29/20 05:08 Sodium Chloride IVPB 167 mls/hr Q12H BETTINA Administration Dextrose/Water 1,000 mls @ 75 mls/hr 02/29/20 08:29 02/29/20 09:41 Dextrose 5%-Water Iv Soln IV 02/29/20 21:48 75 mls/hr .[id number] ONE Administration Insulin Aspart 0 unit 02/18/20 13:00 02/29/20 12:30 Novolog SQ Not Given Q6HR [facility] Protocol Miscellaneous Information 1 each 02/18/20 05:19 Magnesium Per Protocol MISCELLANE DAILY PRN Per Protocol Protocol Miscellaneous Information 1 each 02/19/20 05:38 Potassium Per Protocol MISCELLANE DAILY PRN Per Protocol Protocol Miscellaneous Information 1 each 02/27/20 15:58 Pharmacy To Dose Iv Vancomycin MISCELLANE DIRECTED PRN Per Protocol Protocol Miscellaneous Information 0 each 03/01/20 04:00 Vancomycin Trough Due MISCELLANE 03/01/20 04:01 DIRECTED ONE Naloxone HCl 0.2 mg 02/17/20 19:37 Narcan IV Q2M PRN Opioid Reversal Quetiapine Fumarate 50 mg 02/23/20 21:00 02/29/20 12:38 Seroquel PO 50 mg BID BETTINA Administration Sodium Chloride 10 ml 02/26/20 15:12 Saline Flush IV Q4HR PRN PICC Line Sodium Chloride 10 ml 03/04/20 09:00 Saline Flush IV WEEKLY BETTINA Sodium Chloride 20 ml 02/26/20 15:12 Saline Flush IV Q4HR PRN PICC Line Tamsulosin HCl 0.8 mg 02/18/20 21:00 02/28/20 20:57 Flomax PO 0.8 mg HS BETTINA Administration Thiamine HCl 100 mg 02/27/20 10:45 02/29/20 12:38 Vitamin B-1 PO 100 mg DAILY BETTINA Administration Objective - Vital Signs Vital signs: Vital Signs Temp 99.2 F 02/29/20 16:00 Pulse 97 02/29/20 16:00 Resp 23 02/29/20 16:00 BP 148/74 02/29/20 16:00 Pulse Ox 98 02/29/20 16:00 Intake & Output 02/28/20 02/29/20 02/29/20 18:59 06:59 18:59 Intake Total 0973.510 2819.399 1835.670 Output Total 1020 1345 1040 Balance 664.611 435.399 795.670 Weight 91.8 kg Intake: IV 220 740 60 Sodium Chloride 0.9% 1, 220 240 60 000 ml @ 20 mls/hr IV . Q24H [facility] Rx#:[id number] Vancomycin 1,750 mg In 500 Sodium Chloride 0.9% 500 ml 500 ml @ 167 mls/hr IVPB Q12H [facility] Rx#: [id number] Intake, IV Titration 904.611 750.768 4653.670 Amount Cefepime 2 gm In Sodium 100 100 Chloride 0.9% 100 ml @ 25 mls/hr IVPB Q12HR [facility] Rx #:[id number] Dextrose 5% in Water 1, 525 000 ml @ 75 mls/hr IV . [id number] ONE Rx#:[id number] Diltiazem 125 mg In 89.000 113.833 Sodium Chloride 0.9% 100 ml @ Per Protocol IV .Q0M [facility] Rx#:[id number] Morphine Sulfate (100 mg/ 55.386 29.869 2 ml) 100 mg In Sodium Chloride 0.9% 100 ml @ 2 MG/HR 2.04 mls/hr IV . Q24H [facility] Rx#:[id number] Vancomycin 1,750 mg In 500 Sodium Chloride 0.9% 500 ml 500 ml @ 167 mls/hr IVPB ONCE ONE Rx#: [id number] propofoL 1,000 mg In 160.225 350.399 276.968 Empty Bag 1 bag @ Titrate IV .Q0M [facility] Rx#: [id number] Tube Feeding 500 600 500 Other 60 90 230 Output: Chest Tube Drainage 320 300 60 Chest Tube Left Upper 320 300 60 Lateral Chest Urine 700 1045 980 Other: Voiding Method Indwelling Catheter Indwelling Catheter Indwelling Catheter ABP, PAP, CO, CI - Last Documented Arterial Blood Pressure 111/102 - Exam -GENERAL: The patient is intubated and sedated HEENT: Pupils are round and equally reacting to light. EOMI. No scleral icterus. No conjunctival pallor. Normocephalic, atraumatic. No pharyngeal erythema. No thyromegaly. CARDIOVASCULAR: S1 and S2 present. No murmurs, rubs, or gallops. -PULMONARY: Chest is clear to auscultation, no wheezing or crackles. Left-sided chest tube midline vertical surgical wound is clean and dry and closed -ABDOMEN: Soft, nontender, nondistended, normoactive bowel sounds. No palpable organomegaly. MUSCULOSKELETAL: No joint swelling or deformity. EXTREMITIES: No cyanosis, clubbing, or pedal edema. NEUROLOGICAL: Gross neurological examination did not reveal any focal deficits. SKIN: No rashes. no petechiae. - Labs CBC & Chem 7: 02/29/20 04:31 02/29/20 04:31 Labs: Abnormal Lab Results - Last 24 Hours (Table) 02/28/20 02/28/20 02/28/20 Range/Units 05:08 18:23 23:32 WBC (3.8-10.6) k/uL RBC (4.30-5.90) m/uL Hgb (13.0-17.5) gm/dL Hct (39.0-53.0) % MCHC (31.0-37.0) g/dL RDW (11.5-15.5) % Plt Count (150-450) k/uL Neutrophils # (Manual) (1.3-7.7) k/uL Monocytes # (Manual) (0-1.0) k/uL Eosinophils # (Manual) (0-0.7) k/uL Metamyelocytes # (Man) (0) k/uL Myelocytes # (Manual) (0) k/uL Nucleated RBCs (0-0) /100 WBC ABG pO2 (83-108) mmHg ABG HCO3 (21-25) mmol/L ABG Total CO2 (19-24) mmol/L ABG O2 Saturation (94-97) % Sodium (137-145) mmol/L Chloride (98-107) mmol/L BUN (9-20) mg/dL Glucose (74-99) mg/dL POC Glucose (mg/dL) 132 H 128 H (75-99) mg/dL Vitamin B12 1496.0 H (200.0-944.0) pg/mL 02/29/20 02/29/20 02/29/20 Range/Units 04:31 04:31 05:28 WBC 19.9 H (3.8-10.6) k/uL RBC 2.89 L (4.30-5.90) m/uL Hgb 8.2 L (13.0-17.5) gm/dL Hct 26.7 L (39.0-53.0) % MCHC 30.7 L (31.0-37.0) g/dL RDW 16.1 H (11.5-15.5) % Plt Count 569 H (150-450) k/uL Neutrophils # (Manual) 13.90 H (1.3-7.7) k/uL Monocytes # (Manual) 1.59 H (0-1.0) k/uL Eosinophils # (Manual) 1.99 H (0-0.7) k/uL Metamyelocytes # (Man) 0.60 H (0) k/uL Myelocytes # (Manual) 0.20 H (0) k/uL Nucleated RBCs 26 H (0-0) /100 WBC ABG pO2 (83-108) mmHg ABG HCO3 (21-25) mmol/L ABG Total CO2 (19-24) mmol/L ABG O2 Saturation (94-97) % Sodium 148 H (137-145) mmol/L Chloride 117 H (98-107) mmol/L BUN 36 H (9-20) mg/dL Glucose 124 H (74-99) mg/dL POC Glucose (mg/dL) 149 H (75-99) mg/dL Vitamin B12 (200.0-944.0) pg/mL 02/29/20 02/29/20 Range/Units 07:43 12:03 WBC (3.8-10.6) k/uL RBC (4.30-5.90) m/uL Hgb (13.0-17.5) gm/dL Hct (39.0-53.0) % MCHC (31.0-37.0) g/dL RDW (11.5-15.5) % Plt Count (150-450) k/uL Neutrophils # (Manual) (1.3-7.7) k/uL Monocytes # (Manual) (0-1.0) k/uL Eosinophils # (Manual) (0-0.7) k/uL Metamyelocytes # (Man) (0) k/uL Myelocytes # (Manual) (0) k/uL Nucleated RBCs (0-0) /100 WBC ABG pO2 64 L (83-108) mmHg ABG HCO3 30 H (21-25) mmol/L ABG Total CO2 31 H (19-24) mmol/L ABG O2 Saturation 92.1 L (94-97) % Sodium (137-145) mmol/L Chloride (98-107) mmol/L BUN (9-20) mg/dL Glucose (74-99) mg/dL POC Glucose (mg/dL) 126 H (75-99) mg/dL Vitamin B12 (200.0-944.0) pg/mL Microbiology - Last 24 Hours (Table) 02/27/20 11:00 Gram Stain - Final Sputum Sputum Culture - Final Selina albicans 02/22/20 17:22 Blood Culture - Final Blood No Growth after 144 hours Assessment and Plan Assessment: - Fall from ladder with trauma to chest and abdomen with traumatic hydro- pneumothorax , status post chest tube -Splenic injury status post splenectomy patient had appropriate on him as well postoperative day 7. -Acute ventilatory dependent respiratory failure hypoxic secondary to polytrauma, pneumothorax and splenic injury, continue with the ventilatory support and wean off as tolerated. days of empiric antibiotics with Zosyn -A. fib with RVR worsening -left basilar opacity, but exchanged to vancomycin and cefepime by ID team -Traumatic left-sided rib fractures, alert to 7 -hyponatremia: Secondary to half-normal saline was switched to normal saline -Hemorrhagic shock on admission which improved patient received 4 units of PRBC transfusion presently hemodynamically stable is not requiring any pressors -acute blood loss anemia from polytrauma pneumoperitoneum -history of carotid artery disease with previous bypass surgery -Hyperlipidemia -Benign prostatic hypertrophy
[2020-02-29] MEDS ORDERED: ANIDULAFUNGIN 200 MG in SODIUM CHLORIDE 0.9% 200 ML IVPB ONE (16:42)
[2020-02-29 17:50] LABS: Glucose,Whole Blood 123 mg/dL (75-99)
[2020-02-29] MEDS: ATORVASTATIN 20 MG TAB PO SCH (20:38)
[2020-02-29] MEDS: FINASTERIDE 5 MG TAB PO SCH (20:39)
[2020-02-29] MEDS: TAMSULOSIN 0.4 MG CAP.ER.24H PO SCH (20:43)
--- NOTE | 2020-02-29 21:26 | PN ---
PROGRESS NOTE DATE OF SERVICE: 02/29/2020 REASON FOR FOLLOWUP: Leukocytosis, pneumonia and post splenectomy. INTERVAL HISTORY: The patient did have a low-grade fever of 100.2 last night and this morning the patient is afebrile, hemodynamically stable, not on pressor support. FiO2 is currently stable at 50%. Tolerating tube feeds. No significant diarrhea reported. PHYSICAL EXAMINATION: Blood pressure 148/71 with a pulse of 97, temperature 98. He is 98% on 50% FiO2. General description is an elderly male lying in bed in no distress. Respiratory system: Unlabored breathing, decreased breath sounds in the base, with no wheeze. Heart S1, S2. Regular rate and rhythm. Abdomen soft, no tenderness. Hemoglobin 8.8, white count 19.9, BUN of 36, creatinine 0.76. DIAGNOSTIC IMPRESSION AND PLAN: Patient with low-grade fever, elevated white count which is likely multifactorial with a possible component pneumonia. Patient is covered with cefepime, vancomycin and Eraxis, to continue. Cultures will follow closely as well as clinical course. Continue supportive care. MMODL / IJN: [id number] /
[2020-02-29 23:54] LABS: Glucose,Whole Blood 123 mg/dL (75-99)
[2020-03-01] MEDS: INSULIN ASPART (NovoLOG) 100 UNIT/ML VIAL SQ SCH ×4 (01:07→18:35)
[2020-03-01] MEDS: MIDAZOLAM HCL 50 MG in SODIUM CHLORIDE 0.9% 40 ML IV SCH ×3 (02:28→15:55)
[2020-03-01] MEDS ORDERED: VANCOMYCIN TROUGH DUE 1 EACH MISC MISCELLANE ONE (04:00)
[2020-03-01 05:10] LABS: Anisocytosis Slight; HGB 8.4 gm/dL (13.0-17.5); Hypochromasia Marked; MCH 28.7 pg (25.0-35.0); MCV 92.6 fL (80.0-100.0); Mean Platelet Volume 11.9; Platelet Count 611 k/uL (150-450); Poikilocytosis Slight; RBC 2.92 m/uL (4.30-5.90); RDW 16.4 % (11.5-15.5)
[2020-03-01 05:24] LABS: African American GFR (CKD) >90 (>60 ml/min/1.73 sqM); Anion Gap 7 mmol/L; Blood Urea Nitrogen 33 mg/dL (9-20); Calcium 8.5 mg/dL (8.4-10.2); Carbon Dioxide 25 mmol/L (22-30); Chloride 116 mmol/L (98-107); Glucose 112 mg/dL (74-99); Non-African American GFR(CKD) >90 (>60 ml/min/1.73 sqM); Sodium 148 mmol/L (137-145)
[2020-03-01 05:29] LABS: Band Neutrophils % 24 %; Metamyelocytes % 2 %; Myelocytes % 3 %; Neutrophils % (M) 60 %; Nucleated Red Blood Cells 18 /100 WBC (0-0); Total Cells Counted 200
[2020-03-01 05:30] LABS: Eosinophils # (M) 2.38 k/uL (0-0.7); Metamyelocytes # (M) 0.59 k/uL (0); Monocytes # (M) 0.59 k/uL (0-1.0); Myelocytes # (M) 0.89 k/uL (0); WBC 29.7 k/uL (3.8-10.6)
[2020-03-01 05:31] LABS: Anisocytosis (M) Present; Poikilocytosis (M) Present; Polychromasia Present; Stomatocytes Present; Target Cells Present
[2020-03-01 05:32] LABS: Large Platelets Present
[2020-03-01] MEDS: VANCOMYCIN 1,750 MG in SODIUM CHLORIDE 0.9% 500 ML 500 ML IVPB SCH ×2 (05:33→17:26)
[2020-03-01 05:36] LABS: Glucose,Whole Blood 157 mg/dL (75-99)
[2020-03-01 05:58] LABS: Potassium 4.5 mmol/L (3.5-5.1)
[2020-03-01 07:31] LABS: ABG Base Excess 2.9 mmol/L; ABG HCO3 26 mmol/L (21-25); ABG Oxygen Saturation 88.4 % (94-97); ABG PCO2 35 mmHg (35-45); ABG PH 7.48 (7.35-7.45); ABG TCO2 28 mmol/L (19-24); Allen Test Performed? Yes
[2020-03-01 07:34] LABS: ABG PO2 53 mmHg (83-108)
--- NOTE | 2020-03-01 07:43 | XR ---
EXAMINATION TYPE: XR chest 1V portable DATE OF EXAM: 03/01/2020 Comparison: 02/29/2020 Clinical History: 70-year-old male infiltrate Findings: Tracheostomy cannula. NG tube courses below the diaphragm. Median sternotomy wires with post-CABG cli ps in the mediastinum. Left-sided chest tube without appreciable pneumothorax. Left PICC tip at the l ower SVC. Heart borderline enlarged. Diffuse interstitial and patchy airspace opacities, minimally le ss confluent at the right upper lobe but relatively similar elsewhere. Small effusion on the left is unchanged. Impression: 1. Continued bilateral interstitial and patchy airspace disease. Consolidation is slightly less confl uent in the right upper lobe but otherwise, relatively stable. 2. Continued small left effusion with adjacent atelectasis and or consolidation.
[2020-03-01] MEDS: ACETAMINOPHEN TAB 325 MG TAB PO PRN ×2 (08:11→13:25)
[2020-03-01] MEDS: CEFEPIME 2 GM in SODIUM CHLORIDE 0.9% 100 ML IVPB SCH (08:12)
[2020-03-01] MEDS: DOCUSATE ORAL SOLN 100 MG/10 ML CUP PO SCH ×2 (08:12→21:15)
[2020-03-01] MEDS: CHLORHEXIDINE GLUCONATE 15 ML CUP MUCOUS MEM SCH ×2 (08:12→21:15)
[2020-03-01] MEDS: AMIODARONE 200 MG TAB PO SCH ×2 (08:12→21:14)
[2020-03-01] MEDS: ENOXAPARIN 40 MG/0.4 ML SYRINGE SQ SCH (08:12)
[2020-03-01] MEDS: THIAMINE 100 MG TAB PO SCH (08:14)
[2020-03-01] MEDS: QUEtiapine 50 MG TAB PO SCH ×2 (08:30→21:16)
[2020-03-01] MEDS: DEXTROSE 5% IN WATER 1,000 ML IV SCH ×2 (09:00→17:17)
--- NOTE | 2020-03-01 09:59 | P.PN ---
Subjective Progress Note Date: 03/01/20 Principal diagnosis: Status post fall off ladder and significant trauma to chest and abdomen. This is a 69-year-old male patient who was working on his gutters when he fell off a 15 foot ladder. This was unwitnessed. He end up calling his who in turn called EMS and the patient was brought in to the emergency department. Upon arrival, the patient was hypotensive and he was in shock. The patient initial chest x-ray showed several left-sided fractures and small amount of subcutaneous air in addition to a left-sided pneumothorax. The x-ray of the pelvis showed no evidence of any fracture or dislocation. The CAT scan of the brain showed age-related atrophy and chronic small vessel ischemic changes without any acute intracranial process. CAT scan of cervical spine showed no acute abnormalities. On and has Been of the cervical spine was done and the bone and soft tissue windows showed no acute abnormalities. There was no evidence of any fracture. Along with multiple left-sided rib fractures third extending to the seventh rib. There was also spending the sedation with estimated grade 3 injury the patient. The patient's hemoglobin dropped to 10.5. The patient received a total of 2 L of IV fluid and 40 minutes of packed RBC. Morning hemoglobin today is At 13.4. The patient was taken to the operating room yesterday. The patient underwent a left-sided chest tube insertion. The patient also had splenectomy done and following that the patient was kept intubated on a mechanical ventilator and he was transferred to the intensive care unit. Note that the patient takes morphine outpatient basis and he has chronic pain and chronic narcotic requirements and on outpatient basis he takes morphine sulfate in the form of MS Contin 50 mg every 12 hours. Overnight, the patient was intubated on mechanical ventilator. He was sedated with a combination of propofol and he was also placed on morphine drip after being given several boluses control his pain. This morning, Profore is running at 70 mg per KG per minute. Morphine is running at 8 mg an hour. The patient is on normal saline at rate of 85 mL an hour. The patient has a left sided chest tube. Total amount of output is in order 110 mL of serosanguineous material without evidence of any air leak. The ventilator setting shows an assist- control mode rate of 20 with a tidal volume of 500 and FiO2 of 40% with a PEEP of 5. The patient's FiO2 is down to 40% overnight. The morning blood gases showed a pH of 7.4 with a pCO2 of 37 and pO2 of 121. The chest x-ray from this morning shows that the patient has an indwelling left-sided chest tube without any signs or pneumothorax. There is also a basilar pleural-based opacity along with multiple left-sided rib fractures and ET tube is in a good location. He is at approximately slightly swollen probably related to an infiltrated IV. He did not require any pressors. He remains hemodynamically stable. Lactic acid remains slightly elevated at 2.9 On 02/19/2020, the patient's seen for a follow-up. Earlier this morning, the patient was doing well and patient was well sedated on propofol at 70 g per KG per minute and morphine at 8 mg an hour. He was on a mechanical ventilator on assist control mode at the rate of 20 with a tidal volume of 500 and FiO2 of 40% with a PEEP of 5. His chest x-ray showed no acute abnormalities. There was no evidence of any pneumothorax. The patient left-sided chest tube in place. No evidence of any air leak. The chest x-ray showed multiple left-sided rib fractures, stable right medial basilar atelectasis, stable left basilar infiltrate/atelectasis. No other acute abdominal masses otherwise noted. As for the blood gases, the patient a pH of 7.49 with a pCO2 of 31 and pO2 of 84. The patient was hemodynamically stable on no pressors. Hemoglobin was stable at 11.6. Lactic acid level is improved. Based on this, the patient was given a sedation holiday. Initially he recovered nicely from this sedation. He was kept on morphine for pain control at a lower dose of 12 mg an hour. He was taken off the propofol. He was given as pertains breathing trial and he seemed to be quite comfortable and he was getting progressively more restless. At that point, I made decision to extubate the patient, and he was placed on oxygen by nasal cannula. The first 20-30 minutes, the patient did well post extubation. Subsequently, he became progressively more restless, agitated, he was having tremors and he was thrashing around. He was not following any commands. He became progressively more tachycardic. He went into atrial fibrillation with rapid ventricular response with a heart rate in the 180s. He became HYPERTENSIVE with systolic blood pressure went up to 200s. Based on all this, the patient was started on side effects drip for blood pressure control. I thought that the patient was withdrawing from alcohol. It's clear to me that the patient has a component of alcoholism and it was noted that the patient was intoxicated alcohol at time of admission. As such, he could have been in delirium tremens. He was given a total of 4 mg of Ativan without any major impr ovement. At that point, I decided to reintubate the patient. He was placed again on propofol and morphine drip was continued and he was intubated in the intensive care unit without any major difficulties. A triple lumen cath was also inserted. As for atrial fibrillation, the patient was started on amiodarone drip per protocol. Chest x-ray post intubation showed no acute abnormalities. She wasn't in that location. Triple lumen catheter was also in good location. NG tube was also be inserted. 02/20/2020, the patient is sedated on a mechanical ventilator. He failed extubation yesterday because of activity delirium tremens. He was restarted back on propofol running at 50, respiratory KG per minute and morphine at 6 mg an hour. He is also on normal saline at 0.9 percent at 100 mL an hour. He was running a lower blood pressure yesterday. He was given a bolus of IV fluids and a second bolus was given to him today. Both boluses are 1 L. The patient has converted back into normal sinus rhythm. Note that he was loaded with amiodarone yesterday and he was kept on amiodarone throughout the day and currently amiodarone is running at 0.5 mg per minute. A. fib RVR has recovered and the patient is back into normal sinus rhythm. He remains on a mechanical ventilator. He is an assist-control mode at the rate of 20 with a tidal volume of 500 and FiO2 40% with a PEEP of 5. A blood gas showed a pH of 7.48 with a pCO2 of 27 and pO2 of 97. The patient is afebrile. The patient has a clear abdominal wounds. The chest tube on the left is still in place without evidence of any air leak and output from the chest tube has been serosanguineous in order of 240 mL over the past 24 hours. Urine output is adequate. No other significant events overnight. On 02/21/2020 and seeing the patient for a follow-up in the intensive care unit. The patient is on a combination of propofol and morphine sulfate. Propofol is running at 55 g per KG pigmented emotional sulfate is 4 mg an hour. He is calm and comfortable. He is an assist-control mode at the rate of 20 with a tidal volume of 500 and a FiO2 of 40% with a PEEP of 5. His morning blood gases showed a pH of 7.45 with a pCO2 of 32 and pO2 129. Chest x-ray showing some limited atelectatic changes and infiltration of the lung bases. The patient's chest x-ray showed no evidence of any pneumothorax. The output from the left- sided chest tube is in the order of 10 25 mL over the past 24 hours and there is no evidence of any air leak. The patient is calm and comfortable. I'm going to give him a sedation holiday. I'm going to consider Precedex instead of propofol as an alternative sedative medication and assess the patient's underlying mental status. He is hemodynamically stable. He has required no pressors. He remains in sinus rhythm. Amiodarone is currently discontinued. Is tolerating his enteral feeding for nutritional support. 02/22/2020, the patient is being seen in follow-up. I tried to make an adjustment in the patient's sedation. I stopped the propofol yesterday and switch the patient to Precedex. I Do morphine sulfate. The patient did well for quite some time. Subsequently he became again agitated restless pulling on his tubes and it was very difficult to control his agitation. Based on that, I stopped the Precedex and put him back on propofol. Currently he is intubated on a mechanical ventilator and propofol is running at 60 mics of respiratory KG per minute and the patient is also morphine sulfate a 4 mg an hour. He is in a positive fluid balance and the patient would benefit from diuresis. He is on no pressors. Left-sided chest tube is in place and output is around 2 50 mL over the past 12 hours. There is no evidence of air leak. Chest x-ray showing bilateral pulmonary infiltrates slightly worse on the right. The patient remains on a mechanical ventilation. He is on assist-control at the rate of 20 with a tidal volume of 500 and FiO2 of 40% with a PEEP of 5. PH is at 7.4 with a pCO2 of 38 and pO2 of 100. He is taken his enteral feeding and he is receivi ng vital high protein at the rate of 30 mL an hour. No other complaints or issues for now. No fever. No chills. His blood pressure was somewhat elevated and he was briefly given Cleviprex for blood pressure control which is still running at 1 mg an hour and this will be weaned off. He remains on empiric antibiotic coverage with IV Zosyn. Repeat blood cultures came back negative. Patient was reevaluated today on 02/23/20, remains in the ICU, intubated and mechanically ventilated. His ventilator settings are assist control rate of 20 tidal volume of 500 FiO2 is 40% PEEP is 5. Peak airway pressure is 24 plateau pressure is 20. Patient remains on propofol at 70 mcg/kg/m morphine sulfate at 4 mg per hour IV fluid at KVO chest tube is at waterseal. No evidence of air leak. Chest x-ray showed slight improved aeration of the lungs at the bases bilaterally. Small bilateral pleural effusions and small areas of bibasilar opacities. Could be aspiration pneumonia related or could be atelectasis. Multiple left-sided displaced rib fractures are noted. ABG showed a pO2 of 73 pCO2 of 38 pH of 7.47 WBC count is 22.1 hemoglobin is 9.5. Basic metabolic profile is normal, renal profile is normal. Today I have suggested sedation holiday. And depending on how he does with a sedation holiday, may or may not proceed with a weaning trial. However the patient gets extremely agitated he will be back on propofol and not ready to wean. This will be decided upon depending on his clinical status off sedation. All meds were reviewed, patient remains on Zosyn for presumptive aspiration pneumonia. Reevaluated today on 02/24/20, remains in the ICU, intubated and mechanically ventilated. Ventilator settings are assist control rate of 20 tidal volume is 500 FiO2 is 40% PEEP of 5 ABG showed a pO2 of 67 pCO2 of 39 pH of 7.47 hence his FiO2 was increased to 45%. Patient remains on morphine at 2 mg/h propofol at 45 mcg/kg/m IV fluid at KVO patient is hemodynamically stable not requiring any pressors. He is in sinus rhythm. Chest tube remains in place, and it drained 370 mL of serous drainage over the last 24 hours. Tube feeding is progressing, patient is at 50 ML per hour/goal. My plan today is to hold sedation and narcotics, will start the patient on Precedex, and I plan to give the patient at least a weaning trial on Precedex. Chest x-ray and labs were all reviewed, ches t x-ray is suggestive of bilateral infiltrates, most likely aspiration pneumonia related. His WBC count seems to be on the rise today. However no clear-cut evidence of infection. Patient remains empirically on antibiotics Reevaluated today on 02/25/20, patient remains in the ICU, intubated and mec hanically ventilated. His ventilator settings are assist-control rate 20 tidal volume 500 FiO2 45% PEEP of 5 ABG showed a pO2 of 68 pCO2 of 43 pH of 7.43 patient developed atrial fibrillation with RVR last night, placed on amiodarone drip, remains on amiodarone drip at present, cardiology was consulted. Chest x- ray is showing worsening infiltrates and possibly some component of interstitial edema bilaterally. Hence one dose of Lasix was given today, and will continue to monitor the chest x-ray findings, I believe the findings are more or less related to aspiration pneumonia. Doubt congestive heart failure. Patient is on IV fluids at KVO propofol at 20 mcg/kg/m morphine sulfate 3 mg per hour. Trial of weaning has been attempted every day, however the patient gets extremely agitated of sedation, he was also agitated on Precedex when we took him off propofol and morphine. Clearly he is going to be a failure to wean, and has been so far. His was approached again today, and recommended tracheostomy and PEG tube placement. This was also discussed with the surgeon and he will discuss the procedures with the . Reevaluated today on 02/26/20, patient remains in the ICU, on mechanical ventilation, he is status post tracheostomy, postoperative day #1. Patient is on assist control rate of 20 tidal volume is 500 FiO2 45% PEEP of 5 ABG showed a pO2 of 71 pCO2 of 39 pH of 7.46. Remains on morphine sulfate which I cut it down to 1 mg/h, he is now temporarily off propofol to assess his mental status, and his IV amiodarone was switched to oral amiodarone to be given via nia ogastric tube. Chest x-ray continues to show bilateral infiltrates, right more so than left, suspect underlying aspiration pneumonia, remains on Zosyn. Patient is sedated, slightly agitated, opens eyes to verbal stimuli, but does not follow any verbal instructions. Patient had good urine output over the last 24 hours, and he is in a negative fluid balance. Left-sided chest tube drained about 150 mL over the last 24 hours. The fluid is mostly serosanguineous. Patient may have a PEG tube placement today, in the meantime he continues to have an orogastric tube in place. Patient is hemodynamically stable, remains in sinus rhythm. Reevaluated today on 02/27/20, remains in the ICU, intubated and mechanically ventilated. ABG showed a pO2 of 62 pCO2 of 38 pH of 7.48, ventilator settings are assist control rate of 20 tidal volume 500 FiO2 45% PEEP of 5 and his low pO2 I increased his FiO2 to 50% and increased PEEP to 8. Chest x-ray is showing worsening infiltrates especially in the right upper lobe. And he has a left perihilar infiltrate. This morning the patient was only on morphine at 2 mg per hour, and he was noted to be again agitated, thrashing in bed, and developed worsening atrial fibrillation with RVR, placed on Cardizem drip at 5 mg per hour. Considering the extreme agitation that I noted, recommended that the patient goes back on propofol, ordered a neurology consult on the patient, ordered CT of the head, and also recommended a CT of the abdomen and pelvis. Clearly the patient is not ready to be weaned or extubated at this point. Patient was seen by neurology, and it was felt that the patient may have metabolic toxic encephalopathy. Continues to have leukocytosis with WBC count of 18.9, and low-grade fever intermittently, CT of the abdomen is pending. Reevaluated today on 02/28/20, patient remains in the ICU, mechanically ventilated, ventilator settings are assist control rate of 20 tidal volume 500 FiO2 50% and PEEP of 8. His ABG showed a pO2 of 79 pCO2 44 pH of 7.44. Patient remains on propofol drip, presently at 40 mEq per kilo per minute. Morphine sulfate at 2 mg per hour and I cut it down to 1 mg/h Cardizem drip at [address] of the abdomen and CT of the brain were basically nondiagnostic. Continues to have about 200 mL of serous drainage from the left sided chest tube over the last 24 hours. Patient continues to have intermittent episodes of extreme agitation off propofol on a daily basis today I recommended that we stop propofol again and cut down morphine sulfate 1 mg/h, and assess mental status, try to hold sedation as much as possible as long as the patient is not pulling his lines and his catheters. We have been attempting to wean the patient almost on a daily basis of sedation and narcotics, and he gets extremely agitated making it extremely difficult to wean and extubate. Patient is already status post tracheostomy, technically could not have a PEG tube placement. And this would be readdressed next week. Chest x-ray continues to show bilateral infiltrates, slightly improved today compared to the last chest x-ray. Reevaluated today on 02/29/20, patient remains in the ICU, intubated and mechanically ventilated. Patient was off sedation for about 3 hours yesterday, he developed later on extreme agitation, and went into atrial fibrillation with RVR, had to be sedated placed back on Cardizem drip, and he converted later on to sinus rhythm. Patient has a worsening chest x-ray with worsening right upper lobe, and suspicious for endobronchial mucous plugging, hence I performed bronchoscopy and BAL of the right upper lobe, there was no evidence of purulent secretions, however that tracheostomy was noted to be almost at the rony level, and I suspect it may be intermittently occluding the right upper lobe bronchus. Hence that tracheostomy was moved upwards and lavage of the right upper lobe was sent for different diagnostic studies. Patient is still on mechanical ventilation, he is presently on tidal volume of 500 assist control rate of 20 FiO2 50% PEEP of 8 ABG showed a pO2 of 64 pCO2 of 44 pH of 7.44. Chest tube continues to have about 200 mL of serous drainage. Patient is hemody namically stable. He is on propofol at 50 mcg/kg/m and morphine sulfate at 1 mg per hour. Sodium is elevated, hence I recommended D5W and recommended free water via orogastric tube. His orogastric tube was changed to a nasogastric tube today, and I did this with the lightest scope guidance. I was able to guide a nasogastric tube into the esophagus by direct visualization. And I was able to pull the old orogastric tube. Patient will be placed back on enteral feeding which he has been tolerating all along. Patient was reevaluated today on 03/01/20, remains in the ICU, remains intubated and mechanically ventilated. Last night, the patient developed a temp of 103 and pO2 102.1, he developed worsening leukocytosis with WBC of 29.7. Patient is requiring sedation, hence the Versed was added to propofol at 75 mcg/kg/m and he is already on morphine at 2 mg per hour. Versed is now 5 mg per hour. His FiO2 was increased to 60%, PEEP was increased to 10. ABG this morning showed a pO2 of 53 pCO2 35 and pH of 7.48. Patient will be pancultured, he remains on vancomycin and cefepime. And I have ordered ammonia level. Cultures of the fluid from the chest tube, I also recommended urine cultures and blood cultures. May have to consider repeat CT of the abdomen and pelvis. Although his last one was negative for abscess. Ventilator settings at present are assist control rate of 20 tidal volume is 500 FiO2 increased to 60% PEEP increased to 10. Chest x-ray continues to show bilateral infiltrates, however his bronchoscopy clearly showed no evidence of any purulent secretions and the cultures from the BAL of the right upper lobe are negative so far. Gram stain from the BAL showed no organisms seen. And no polymorphonuclear leukocytes. Objective - Vital Signs Vital signs: Vital Signs Temp 103.0 F H 03/01/20 08:00 Pulse 95 03/01/20 09:00 Resp 27 H 03/01/20 09:00 BP 127/56 03/01/20 09:00 Pulse Ox 94 L 03/01/20 09:00 Intake & Output 02/29/20 03/01/20 03/01/20 18:59 06:59 18:59 Intake Total 2838.393 1609.938 323.233 Output Total 1290 1220 310 Balance 1548.393 389.938 13.233 Weight 92.9 kg Intake: IV 60 610 20 Cefepime 2 gm In Sodium 100 Chloride 0.9% 100 ml @ 25 mls/hr IVPB Q12HR [facility] Rx #:[id number] Dextrose 5% in Water 1, 450 000 ml @ 75 mls/hr IV . [id number] ONE Rx#:[id number] Sodium Chloride 0.9% 1, 60 60 20 000 ml @ 20 mls/hr IV . Q24H [facility] Rx#:[id number] Intake, IV Titration 1948.393 399.938 103.233 Amount Anidulafungin 200 mg In 200 Sodium Chloride 0.9% 200 ml @ 84 mls/hr IVPB ONCE ONE Rx#:[id number] Cefepime 2 gm In Sodium 100 Chloride 0.9% 100 ml @ 25 mls/hr IVPB Q12HR [facility] Rx #:[id number] Dextrose 5% in Water 1, 675 75 000 ml @ 75 mls/hr IV . [id number] [facility] Rx#:[id number] Diltiazem 125 mg In 113.833 Sodium Chloride 0.9% 100 ml @ Per Protocol IV .Q0M [facility] Rx#:[id number] Midazolam HCl 50 mg In 4.283 3.233 Sodium Chloride 0.9% 40 ml @ 1 MG/HR 1 mls/hr IV .Q24H [facility] Rx#:[id number] Morphine Sulfate (100 mg/ 29.869 2 ml) 100 mg In Sodium Chloride 0.9% 100 ml @ 2 MG/HR 2.04 mls/hr IV . Q24H [facility] Rx#:[id number] Vancomycin 1,750 mg In 500 Sodium Chloride 0.9% 500 ml 500 ml @ 167 mls/hr IVPB Q12H [facility] Rx#: [id number] propofoL 1,000 mg In 329.691 320.655 100 Empty Bag 1 bag @ Titrate IV .Q0M [facility] Rx#: [id number] Tube Feeding 600 600 100 Other 230 100 Output: Chest Tube Drainage 60 20 Chest Tube Left Upper 60 20 Lateral Chest Urine 1230 1220 290 Other: Voiding Method Indwelling Catheter Indwelling Catheter ABP, PAP, CO, CI - Last Documented Arterial Blood Pressure 111/102 - Exam Physical Exam: Revealed a 69-year-old white male, sedated, mechanically ventilated, sedated with propofol, Versed, and morphine sulfate he Head: Atraumatic, normocephalic, tracheostomy is intact, nasogastric tube is intact. HEENT:[Neck is supple.] [No neck masses.] [No thyromegaly.] [No JVD.] PERRLA, EOMI, no icterus. Chest: Symmetrical chest expansion, crackles and rhonchi bilaterally.. Left sided chest tube is noted. Serosanguineous drainage persists. Cardiac Exam: Distant S1 and S2, no S3 gallop. No murmur. Abdomen: [Soft, nontender, no megaly, no rebound, no guarding, normal bowel sounds.] Extremities: No clubbing, edema or cyanosis. Good pulses bilaterally. Neurological Exam: Pupils are equally reactive to light, sedated, could not be assessed Psychiatric: Could not be assessed Musculoskeletal: Good muscle tone, otherwise could not be assessed, no deformities. - Labs CBC & Chem 7: 03/01/20 03:59 03/01/20 03:59 Labs: Abnormal Lab Results - Last 24 Hours (Table) 02/29/20 02/29/20 02/29/20 Range/Units 12:03 17:48 23:53 WBC (3.8-10.6) k/uL RBC (4.30-5.90) m/uL Hgb (13.0-17.5) gm/dL Hct (39.0-53.0) % RDW (11.5-15.5) % Plt Count (150-450) k/uL Neutrophils # (Manual) (1.3-7.7) k/uL Lymphocytes # (Manual) (1.0-4.8) k/uL Eosinophils # (Manual) (0-0.7) k/uL Metamyelocytes # (Man) (0) k/uL Myelocytes # (Manual) (0) k/uL Nucleated RBCs (0-0) /100 WBC ABG pH (7.35-7.45) ABG pO2 (83-108) mmHg ABG HCO3 (21-25) mmol/L ABG Total CO2 (19-24) mmol/L ABG O2 Saturation (94-97) % Sodium (137-145) mmol/L Chloride (98-107) mmol/L BUN (9-20) mg/dL Glucose (74-99) mg/dL POC Glucose (mg/dL) 126 H 123 H 123 H (75-99) mg/dL 03/01/20 03/01/20 03/01/20 Range/Units 03:59 03:59 05:35 WBC 29.7 H (3.8-10.6) k/uL RBC 2.92 L (4.30-5.90) m/uL Hgb 8.4 L (13.0-17.5) gm/dL Hct 27.0 L (39.0-53.0) % RDW 16.4 H (11.5-15.5) % Plt Count 611 H (150-450) k/uL Neutrophils # (Manual) 24.90 H (1.3-7.7) k/uL Lymphocytes # (Manual) 0.30 L (1.0-4.8) k/uL Eosinophils # (Manual) 2.38 H (0-0.7) k/uL Metamyelocytes # (Man) 0.59 H (0) k/uL Myelocytes # (Manual) 0.89 H (0) k/uL Nucleated RBCs 18 H (0-0) /100 WBC ABG pH (7.35-7.45) ABG pO2 (83-108) mmHg ABG HCO3 (21-25) mmol/L ABG Total CO2 (19-24) mmol/L ABG O2 Saturation (94-97) % Sodium 148 H (137-145) mmol/L Chloride 116 H (98-107) mmol/L BUN 33 H (9-20) mg/dL Glucose 112 H (74-99) mg/dL POC Glucose (mg/dL) 157 H (75-99) mg/dL 03/01/20 Range/Units 07:18 WBC (3.8-10.6) k/uL RBC (4.30-5.90) m/uL Hgb (13.0-17.5) gm/dL Hct (39.0-53.0) % RDW (11.5-15.5) % Plt Count (150-450) k/uL Neutrophils # (Manual) (1.3-7.7) k/uL Lymphocytes # (Manual) (1.0-4.8) k/uL Eosinophils # (Manual) (0-0.7) k/uL Metamyelocytes # (Man) (0) k/uL Myelocytes # (Manual) (0) k/uL Nucleated RBCs (0-0) /100 WBC ABG pH 7.48 H (7.35-7.45) ABG pO2 53 L* (83-108) mmHg ABG HCO3 26 H (21-25) mmol/L ABG Total CO2 28 H (19-24) mmol/L ABG O2 Saturation 88.4 L (94-97) % Sodium (137-145) mmol/L Chloride (98-107) mmol/L BUN (9-20) mg/dL Glucose (74-99) mg/dL POC Glucose (mg/dL) (75-99) mg/dL Microbiology - Last 24 Hours (Table) 02/29/20 11:00 Gram Stain - Preliminary Bronchial Washings - Right Bronchial Washings Culture - Preliminary 02/29/20 11:00 Fungal Culture - Preliminary Bronchial Washings - Right 02/27/20 11:00 Gram Stain - Final Sputum Sputum Culture - Final Selina albicans Assessment and Plan Assessment: Impression: Status post fall off a ladder with trauma to chest and abdomen. Grade 3 laceration of the spleen, post splenectomy postoperative day #13 Traumatic left-sided rib fractures with 30% pneumothorax requiring chest tube placement. No air leak, continues to have serosanguineous drainage. Acute hemorrhagic shock on presentation. Acute blood loss anemia and patient received a total of 4 units of packed RBCs since admission. Acute hypoxic respiratory failure secondary to extreme agitation and delirium tremors requiring sedation, and detoxification, there is also possibly a component of aspiration pneumonia, resolved, I believe the findings in the right upper lobe are most likely secondary to tracheostomy tip close to the right mainstem bronchus and at times probably closing the right upper lobe bronchus. Status post bronchoscopy and lavage of the right upper lobe. Chronic neck pain, patient is maintained chronically on MS Contin, remains on morphine drip. Coronary artery disease and previous CABG, echocardiogram is unremarkable. Dyslipidemia Paroxysmal atrial fibrillation presently in normal sinus rhythm. New onset atrial fibrillation with RVR, converted with amiodarone drip. Presently on Cardizem drip. And on oral amiodarone Failure to wean, status post tracheostomy on 02/25/20. Toxic metabolic encephalopathy, acute. Status post PICC line placement postoperatively #4 his central line was discontinued and cultures were ordered. No growth in the last 24 hours. Status post bronchoscopy and lavage of the right upper lobe done on 02/29/20. Gram stain is negative so far Recommendation: Continue ventilatory support, not ready for any weaning trials today, I had to increase his sedation by adding first set. Underwent bronchoscopy and lavage of the right upper lobe, Gram stain is negat blaise so far. CT of the head, CT of the abdomen and pelvis are basically unremarkable. These were done. Days ago. May have to repeat CT of the abdomen and pelvis. Continue Cardizem drip. Continue amiodarone. Continue GI and DVT prophylaxis. Continue enteral feeding via nasogastric tube. Continue antibiotics, patient is on cefepime and vancomycin. Continue chest tube in place for now, will culture fluid from the left-sided chest tube. And possibly discontinue the chest tube in the next 24 hours Considering his leukocytosis and fever, I am quite concerned about the possibility of sepsis. Patient will be pancultured, would also consider repeat CT of the abdomen and pelvis. Prognosis remains extremely poor and guarded Remains critically ill, critical care time is 34 minutes, Time with Patient: Greater than 30
[2020-03-01 10:27] LABS: Amorphous Sediment,Urine Rare /hpf; Appearance,Urine Cloudy (Clear); Bacteria,Urine Occasional /hpf; Bilirubin,Urine Negative (Negative); Blood,Urine Negative (Negative); Color,Urine Yellow; Glucose,Urine (UA) Negative (Negative); Ketones,Urine Negative (Negative); Leukocyte Esterase,Urine Negative (Negative); Mucus,Urine Rare /hpf; Nitrite,Urine Negative (Negative); Protein,Urine Trace (Negative); RBC,Urine 3 /hpf (0-5); Specific Gravity,Urine 1.024 (1.001-1.035); Squamous Epithelial Cell,Urine 1 /hpf (0-4); WBC,Urine 8 /hpf (0-5)
[2020-03-01] MEDS: LACTULOSE 20 GM/30 ML CUP PO SCH ×4 (10:44→22:02)
[2020-03-01] MEDS: SODIUM CHLORIDE 0.9% 1,000 ML IV SCH (10:53)
[2020-03-01 11:16] LABS: Glucose,Whole Blood 151 mg/dL (75-99)
--- NOTE | 2020-03-01 11:20 | P.PN ---
Subjective Progress Note Date: 03/01/20 Principal diagnosis: Polytrauma Patient yesterday started having fevers. T-max 103. White blood cell count 29.7, hemoglobin 8.4. Recent sputum culture positive for Selina. Infectious disease is following. Patient with recent splenectomy. Objective - Vital Signs Vital signs: Vital Signs Temp 103.0 F H 03/01/20 08:00 Pulse 96 03/01/20 10:00 Resp 28 H 03/01/20 10:00 BP 132/66 03/01/20 10:00 Pulse Ox 97 03/01/20 10:00 Intake & Output 02/29/20 03/01/20 03/01/20 18:59 06:59 18:59 Intake Total 2838.393 1609.938 610.150 Output Total 1290 1220 355 Balance 1548.393 389.938 255.150 Weight 92.9 kg Intake: IV 60 610 20 Cefepime 2 gm In Sodium 100 Chloride 0.9% 100 ml @ 25 mls/hr IVPB Q12HR [facility] Rx #:[id number] Dextrose 5% in Water 1, 450 000 ml @ 75 mls/hr IV . [id number] [facility] Rx#:[id number] Sodium Chloride 0.9% 1, 60 60 20 000 ml @ 20 mls/hr IV . Q24H [facility] Rx#:[id number] Intake, IV Titration 1948.393 399.938 340.150 Amount Anidulafungin 200 mg In 200 Sodium Chloride 0.9% 200 ml @ 84 mls/hr IVPB ONCE [facility] Rx#:[id number] Cefepime 2 gm In Sodium 100 Chloride 0.9% 100 ml @ 25 mls/hr IVPB Q12HR [facility] Rx #:[id number] Dextrose 5% in Water 1, 125 000 ml @ 125 mls/hr IV . Q8H [facility] Rx#:[id number] Dextrose 5% in Water 1, 675 75 000 ml @ 75 mls/hr IV . [id number] [facility] Rx#:[id number] Diltiazem 125 mg In 113.833 Sodium Chloride 0.9% 100 ml @ Per Protocol IV .Q0M [facility] Rx#:[id number] Midazolam HCl 50 mg In 4.283 15.150 Sodium Chloride 0.9% 40 ml @ 1 MG/HR 1 mls/hr IV .Q24H [facility] Rx#:[id number] Morphine Sulfate (100 mg/ 29.869 2 ml) 100 mg In Sodium Chloride 0.9% 100 ml @ 2 MG/HR 2.04 mls/hr IV . Q24H [facility] Rx#:[id number] Vancomycin 1,750 mg In 500 Sodium Chloride 0.9% 500 ml 500 ml @ 167 mls/hr IVPB Q12H [facility] Rx#: [id number] propofoL 1,000 mg In 329.691 320.655 200 Empty Bag 1 bag @ Titrate IV .Q0M [facility] Rx#: [id number] Tube Feeding 600 600 150 Other 230 100 Output: Chest Tube Drainage 60 20 Chest Tube Left Upper 60 20 Lateral Chest Urine 1230 1220 335 Other: Voiding Method Indwelling Catheter Indwelling Catheter ABP, PAP, CO, CI - Last Documented Arterial Blood Pressure 111/102 - Exam Abdomen: Soft, nondistended, no appreciable tenderness, dressing clean and dry - Labs CBC & Chem 7: 03/01/20 03:59 03/01/20 03:59 Labs: Abnormal Lab Results - Last 24 Hours (Table) 02/29/20 02/29/20 02/29/20 Range/Units 12:03 17:48 23:53 WBC (3.8-10.6) k/uL RBC (4.30-5.90) m/uL Hgb (13.0-17.5) gm/dL Hct (39.0-53.0) % RDW (11.5-15.5) % Plt Count (150-450) k/uL Neutrophils # (Manual) (1.3-7.7) k/uL Lymphocytes # (Manual) (1.0-4.8) k/uL Eosinophils # (Manual) (0-0.7) k/uL Metamyelocytes # (Man) (0) k/uL Myelocytes # (Manual) (0) k/uL Nucleated RBCs (0-0) /100 WBC ABG pH (7.35-7.45) ABG pO2 (83-108) mmHg ABG HCO3 (21-25) mmol/L ABG Total CO2 (19-24) mmol/L ABG O2 Saturation (94-97) % Sodium (137-145) mmol/L Chloride (98-107) mmol/L BUN (9-20) mg/dL Glucose (74-99) mg/dL POC Glucose (mg/dL) 126 H 123 H 123 H (75-99) mg/dL Ammonia (<30) umol/L Urine Protein (Negative) Urine WBC (0-5) /hpf Amorphous Sediment (None) /hpf Urine Bacteria (None) /hpf Urine Mucus (None) /hpf 03/01/20 03/01/20 03/01/20 Range/Units 03:59 03:59 05:35 WBC 29.7 H (3.8-10.6) k/uL RBC 2.92 L (4.30-5.90) m/uL Hgb 8.4 L (13.0-17.5) gm/dL Hct 27.0 L (39.0-53.0) % RDW 16.4 H (11.5-15.5) % Plt Count 611 H (150-450) k/uL Neutrophils # (Manual) 24.90 H (1.3-7.7) k/uL Lymphocytes # (Manual) 0.30 L (1.0-4.8) k/uL Eosinophils # (Manual) 2.38 H (0-0.7) k/uL Metamyelocytes # (Man) 0.59 H (0) k/uL Myelocytes # (Manual) 0.89 H (0) k/uL Nucleated RBCs 18 H (0-0) /100 WBC ABG pH (7.35-7.45) ABG pO2 (83-108) mmHg ABG HCO3 (21-25) mmol/L ABG Total CO2 (19-24) mmol/L ABG O2 Saturation (94-97) % Sodium 148 H (137-145) mmol/L Chloride 116 H (98-107) mmol/L BUN 33 H (9-20) mg/dL Glucose 112 H (74-99) mg/dL POC Glucose (mg/dL) 157 H (75-99) mg/dL Ammonia (<30) umol/L Urine Protein (Negative) Urine WBC (0-5) /hpf Amorphous Sediment (None) /hpf Urine Bacteria (None) /hpf Urine Mucus (None) /hpf 03/01/20 03/01/20 03/01/20 Range/Units 07:18 09:10 09:10 WBC (3.8-10.6) k/uL RBC (4.30-5.90) m/uL Hgb (13.0-17.5) gm/dL Hct (39.0-53.0) % RDW (11.5-15.5) % Plt Count (150-450) k/uL Neutrophils # (Manual) (1.3-7.7) k/uL Lymphocytes # (Manual) (1.0-4.8) k/uL Eosinophils # (Manual) (0-0.7) k/uL Metamyelocytes # (Man) (0) k/uL Myelocytes # (Manual) (0) k/uL Nucleated RBCs (0-0) /100 WBC ABG pH 7.48 H (7.35-7.45) ABG pO2 53 L* (83-108) mmHg ABG HCO3 26 H (21-25) mmol/L ABG Total CO2 28 H (19-24) mmol/L ABG O2 Saturation 88.4 L (94-97) % Sodium (137-145) mmol/L Chloride (98-107) mmol/L BUN (9-20) mg/dL Glucose (74-99) mg/dL POC Glucose (mg/dL) (75-99) mg/dL Ammonia 32 H (<30) umol/L Urine Protein Trace H (Negative) Urine WBC 8 H (0-5) /hpf Amorphous Sediment Rare H (None) /hpf Urine Bacteria Occasional H (None) /hpf Urine Mucus Rare H (None) /hpf Microbiology - Last 24 Hours (Table) 02/29/20 11:00 Gram Stain - Preliminary Bronchial Washings - Right Bronchial Washings Culture - Preliminary 02/29/20 11:00 Fungal Culture - Preliminary Bronchial Washings - Right 02/27/20 11:00 Gram Stain - Final Sputum Sputum Culture - Final Selina albicans Assessment and Plan (1) Post-splenectomy Narrative/Plan: 70-year-old male postsplenectomy for trauma. Patient with recent fevers. Patient remains on broad-spectrum antibiotic and antifungal coverage. Await blood and urine cultures. Most recent CAT scan abdomen and pelvis 02/26. Continue tube feeds at goal. Current Visit: Yes Status: Acute Code(s): Z90.81 - ACQUIRED ABSENCE OF SPLEEN SNOMED Code(s): 945518042
--- NOTE | 2020-03-01 11:58 | P.PN ---
Subjective Progress Note Date: 03/01/20 Upon seeing the patient he remains to be on a ventilator and he is on sedation. Patient the is on Versed 10 mg an hour. He is on propofol 75 mcg over kilogram over minutes and he is on morphine 2mg/hr. Patient continues to have that pyrexia, of a fever of 103 on 03/01/2020 at 8:00 that was the highest. His white blood cells are trending up on presentation to the hospital was 9.8 currently is 29.7. He is on cefepime 2 g every 12 hours and vancomycin that were started on 02/27/2020. Patient is requiring sedation, is on Propofol is at 75 mcg per kilogram per minute; Versed is running at 5 mg per hour. Patient is being pancultured and the patient had the bronchoscopy which showed no evidence of the any acute purulent secretion. The Gram stain from BAL showed no organism. ICU team is considering of repeating CT abdomen and pelvis to rule out abscess. Patient is at bedside and the she stated that on Sunday the patient was more responsive he was on less sedation but was showing thumbs up on both hands. He was moving his the neck [id number] and moving extremities [id number] as well. She stated that the patient the incident of fall was that he was on the ladder clearing the gutter but unknown how he fell. He does not have history of seizure or strokes. The patient himself went to his neighbor after the fall. Objective - Vital Signs Vital signs: Vital Signs Temp 101.7 F H 03/01/20 10:00 Pulse 98 03/01/20 11:00 Resp 26 H 03/01/20 11:00 BP 116/58 03/01/20 11:00 Pulse Ox 97 03/01/20 11:00 Intake & Output 02/29/20 03/01/20 03/01/20 18:59 06:59 18:59 Intake Total 2838.393 1609.938 785.150 Output Total 1290 1220 405 Balance 1548.393 389.938 380.150 Weight 92.9 kg Intake: IV 60 610 20 Cefepime 2 gm In Sodium 100 Chloride 0.9% 100 ml @ 25 mls/hr IVPB Q12HR [facility] Rx #:[id number] Dextrose 5% in Water 1, 450 000 ml @ 75 mls/hr IV . [id number] [facility] Rx#:[id number] Sodium Chloride 0.9% 1, 60 60 20 000 ml @ 20 mls/hr IV . Q24H [facility] Rx#:[id number] Intake, IV Titration 1948.393 399.938 465.150 Amount Anidulafungin 200 mg In 200 Sodium Chloride 0.9% 200 ml @ 84 mls/hr IVPB ONCE [facility] Rx#:[id number] Cefepime 2 gm In Sodium 100 Chloride 0.9% 100 ml @ 25 mls/hr IVPB Q12HR [facility] Rx #:[id number] Dextrose 5% in Water 1, 250 000 ml @ 125 mls/hr IV . Q8H [facility] Rx#:[id number] Dextrose 5% in Water 1, 675 75 000 ml @ 75 mls/hr IV . [id number] [facility] Rx#:[id number] Diltiazem 125 mg In 113.833 Sodium Chloride 0.9% 100 ml @ Per Protocol IV .Q0M [facility] Rx#:[id number] Midazolam HCl 50 mg In 4.283 15.150 Sodium Chloride 0.9% 40 ml @ 1 MG/HR 1 mls/hr IV .Q24H [facility] Rx#:[id number] Morphine Sulfate (100 mg/ 29.869 2 ml) 100 mg In Sodium Chloride 0.9% 100 ml @ 2 MG/HR 2.04 mls/hr IV . Q24H [facility] Rx#:[id number] Vancomycin 1,750 mg In 500 Sodium Chloride 0.9% 500 ml 500 ml @ 167 mls/hr IVPB Q12H [facility] Rx#: [id number] propofoL 1,000 mg In 329.691 320.655 200 Empty Bag 1 bag @ Titrate IV .Q0M [facility] Rx#: [id number] Tube Feeding 600 600 200 Other 230 100 Output: Chest Tube Drainage 60 20 Chest Tube Left Upper 60 20 Lateral Chest Urine 1230 1220 385 Other: Voiding Method Indwelling Catheter Indwelling Catheter ABP, PAP, CO, CI - Last Documented Arterial Blood Pressure 111/102 - Exam GENERAL: The patient is lying, on ventilator and on Propofol drip, Versed and Morphine drip. HENT: No neck rigidity noticeable. Negative Kernig sign or Brudzinksi sign. Normocephalic atraumatic otherwise. CHEST: The heart rate is irregular rate rhythm. No murmurs to auscultation. LUNG: Clear to auscultation bilaterally. Not labored breathing. ABDOMEN/GI: Bowel sounds present in all 4 quadrants. Abdomen not distended. NEUROLOGICAL: Limited because of sedation. Higher mental function: Pupils are 2mm bilaterally and sluggishly reactive to light. Not following commands. Cranial nerves: The pupils are 3 minutes bilaterally and reactive to light. Primary gaze is midline. No facial weakness noted. Motor: No spontaneous movement. Could not assess patient strength because of condition. Cerebellum: Unable to assess Sensation: Unable to assess Reflexes (right/left): Brisk reflexes throughout. Plantars are downgoing bilaterally. - Labs CBC & Chem 7: 03/01/20 03:59 03/01/20 03:59 Labs: Abnormal Lab Results - Last 24 Hours (Table) 02/29/20 02/29/20 02/29/20 Range/Units 12:03 17:48 23:53 WBC (3.8-10.6) k/uL RBC (4.30-5.90) m/uL Hgb (13.0-17.5) gm/dL Hct (39.0-53.0) % RDW (11.5-15.5) % Plt Count (150-450) k/uL Neutrophils # (Manual) (1.3-7.7) k/uL Lymphocytes # (Manual) (1.0-4.8) k/uL Eosinophils # (Manual) (0-0.7) k/uL Metamyelocytes # (Man) (0) k/uL Myelocytes # (Manual) (0) k/uL Nucleated RBCs (0-0) /100 WBC ABG pH (7.35-7.45) ABG pO2 (83-108) mmHg ABG HCO3 (21-25) mmol/L ABG Total CO2 (19-24) mmol/L ABG O2 Saturation (94-97) % Sodium (137-145) mmol/L Chloride (98-107) mmol/L BUN (9-20) mg/dL Glucose (74-99) mg/dL POC Glucose (mg/dL) 126 H 123 H 123 H (75-99) mg/dL Ammonia (<30) umol/L Urine Protein (Negative) Urine WBC (0-5) /hpf Amorphous Sediment (None) /hpf Urine Bacteria (None) /hpf Urine Mucus (None) /hpf 03/01/20 03/01/20 03/01/20 Range/Units 03:59 03:59 05:35 WBC 29.7 H (3.8-10.6) k/uL RBC 2.92 L (4.30-5.90) m/uL Hgb 8.4 L (13.0-17.5) gm/dL Hct 27.0 L (39.0-53.0) % RDW 16.4 H (11.5-15.5) % Plt Count 611 H (150-450) k/uL Neutrophils # (Manual) 24.90 H (1.3-7.7) k/uL Lymphocytes # (Manual) 0.30 L (1.0-4.8) k/uL Eosinophils # (Manual) 2.38 H (0-0.7) k/uL Metamyelocytes # (Man) 0.59 H (0) k/uL Myelocytes # (Manual) 0.89 H (0) k/uL Nucleated RBCs 18 H (0-0) /100 WBC ABG pH (7.35-7.45) ABG pO2 (83-108) mmHg ABG HCO3 (21-25) mmol/L ABG Total CO2 (19-24) mmol/L ABG O2 Saturation (94-97) % Sodium 148 H (137-145) mmol/L Chloride 116 H (98-107) mmol/L BUN 33 H (9-20) mg/dL Glucose 112 H (74-99) mg/dL POC Glucose (mg/dL) 157 H (75-99) mg/dL Ammonia (<30) umol/L Urine Protein (Negative) Urine WBC (0-5) /hpf Amorphous Sediment (None) /hpf Urine Bacteria (None) /hpf Urine Mucus (None) /hpf 03/01/20 03/01/20 03/01/20 Range/Units 07:18 09:10 09:10 WBC (3.8-10.6) k/uL RBC (4.30-5.90) m/uL Hgb (13.0-17.5) gm/dL Hct (39.0-53.0) % RDW (11.5-15.5) % Plt Count (150-450) k/uL Neutrophils # (Manual) (1.3-7.7) k/uL Lymphocytes # (Manual) (1.0-4.8) k/uL Eosinophils # (Manual) (0-0.7) k/uL Metamyelocytes # (Man) (0) k/uL Myelocytes # (Manual) (0) k/uL Nucleated RBCs (0-0) /100 WBC ABG pH 7.48 H (7.35-7.45) ABG pO2 53 L* (83-108) mmHg ABG HCO3 26 H (21-25) mmol/L ABG Total CO2 28 H (19-24) mmol/L ABG O2 Saturation 88.4 L (94-97) % Sodium (137-145) mmol/L Chloride (98-107) mmol/L BUN (9-20) mg/dL Glucose (74-99) mg/dL POC Glucose (mg/dL) (75-99) mg/dL Ammonia 32 H (<30) umol/L Urine Protein Trace H (Negative) Urine WBC 8 H (0-5) /hpf Amorphous Sediment Rare H (None) /hpf Urine Bacteria Occasional H (None) /hpf Urine Mucus Rare H (None) /hpf 03/01/20 Range/Units 11:14 WBC (3.8-10.6) k/uL RBC (4.30-5.90) m/uL Hgb (13.0-17.5) gm/dL Hct (39.0-53.0) % RDW (11.5-15.5) % Plt Count (150-450) k/uL Neutrophils # (Manual) (1.3-7.7) k/uL Lymphocytes # (Manual) (1.0-4.8) k/uL Eosinophils # (Manual) (0-0.7) k/uL Metamyelocytes # (Man) (0) k/uL Myelocytes # (Manual) (0) k/uL Nucleated RBCs (0-0) /100 WBC ABG pH (7.35-7.45) ABG pO2 (83-108) mmHg ABG HCO3 (21-25) mmol/L ABG Total CO2 (19-24) mmol/L ABG O2 Saturation (94-97) % Sodium (137-145) mmol/L Chloride (98-107) mmol/L BUN (9-20) mg/dL Glucose (74-99) mg/dL POC Glucose (mg/dL) 151 H (75-99) mg/dL Ammonia (<30) umol/L Urine Protein (Negative) Urine WBC (0-5) /hpf Amorphous Sediment (None) /hpf Urine Bacteria (None) /hpf Urine Mucus (None) /hpf Microbiology - Last 24 Hours (Table) 02/29/20 11:00 Gram Stain - Preliminary Bronchial Washings - Right Bronchial Washings Culture - Preliminary 02/29/20 11:00 Fungal Culture - Preliminary Bronchial Washings - Right 02/27/20 11:00 Gram Stain - Final Sputum Sputum Culture - Final Selina albicans Assessment and Plan Assessment: This is a 70-year-old gentleman with medical history of Afib, coronary artery disease status post CABG that presented to the emergency department on 02/17/2020 who fell off from a ladder and was brought in the emergency department and and was found to have left rib fractures from the third to the seventh, left-sided pneumothorax and splenic injury. Patient has left-sided chest tube. 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 ICU team held the sedation but unsuccessful since patient gets agitated. Neurology team is consulted because of his altered mental status. Encephalopathy likely due to multifactorial (pneumonia, pneuomothorax, worsening of LFT's, respiratory status). Leukocytosis with pyrexia likely due to underlying infection. Pneumonia. Also has bilateral mastoiditis. Cannot rule out meningitis. Acute ventilatory dependent respiratory failure Left rib fracture from the third to seventh from a fall. Left pneumothorax status post chest tube Splenic injury from a fall status post splenectomy Atrial fibrillation Plan: routine EEG: There are moderate to severe encephalopathy of unspecified etiolo gy. There is no focal slowing, interictal activity or seizure activity seen. Repeat CT of the head (02/27/20): No acute intracranial hemorrhage, midline shift or mass effect. There is new partial opacification of the bilateral mastoid air cells not seen on 02/17/2020 comparison. Clinically correlate for possibility of mastoiditis I did review reviewed the CT of the head and I think the patient does have mastoiditis bilaterally and that was not seen on previous CT of the head that. I will consult anesthesiology team for lumbar puncture to rule out underlying meningitis. Patient did receive at least 3 days of antibiotics which will hamper with the CSF results but that there if is the elevated white blood cell seen on the CSF then the it's indicated that the patient has an underlying SUGAR MIXER infection. I highly doubt this is a viral meningitis since he is having the high fever. Possible bilateral mastoiditis. Recommend adding ampicillin covering for Listeria since the patient is elderly but will defer that to the infection disease team. He's currently on cefepime 2 g every 12 hours as well as he is on vancomycin. Ammonia level is 32. Vitamin B12 is 1496. Folate is 9.6. TSh is 3.370. AST on presentation 55-->144. A LTM presentation is 33--->80 Because of the altered status I ordered ammonia level, TSH, vitamin B12, folate, ionized calcium. Placed the patient on Thiamine 100 mg daily The plan was discussed with the ICU attending Alhaji Bartlett M.D. Neuro-hospitalist Time with Patient: Greater than 30
--- NOTE | 2020-03-01 13:13 | PN ---
PROGRESS NOTE Tejinder is 70-year-old gentleman who was admitted to the hospital following a fall with clinic rupture. Has paroxysmal atrial fibrillation. He has had a tracheostomy, currently intubated on vent and sedated. He is on amiodarone 200 mg b.i.d. and intravenous Cardizem. Every time we stop the Cardizem, he is going into atrial fibrillation, so I am going to leave him on it for now. PHYSICAL EXAMINATION: On exam, he has a temp of 103, heart rate is 96 beats per minute, blood pressure is 130/66, respiratory rate is 18. He is mechanically ventilated with a FiO2 60% with 97% saturation. Chest exam reveals diminished air entry at the bases. Heart exam reveals first and second heart sounds. No gallop. Exam of extremities did not reveal any edema. LABORATORY DATA: Hemoglobin is 8.4 potassium is 4.5, creatinine is 0.75. ASSESSMENT: 1. Paroxysmal atrial fibrillation. 2. Status post fall with splenic rupture. 3. Vent requiring respiratory failure. PLAN: Patient will continue current medications. Not a candidate for anticoagulation. MMODL / IJN: [id number] /
[2020-03-01] MEDS: CLEVIDIPINE BUTYRATE 25 MG in EMPTY BAG 1 BAG IV SCH (13:43)
[2020-03-01] MEDS ORDERED: IBUPROFEN 400 MG TAB PO STA (14:44)
[2020-03-01] MEDS: ANIDULAFUNGIN 100 MG in SODIUM CHLORIDE 0.9% 100 ML IVPB SCH (16:38)
[2020-03-01] MEDS: MEROPENEM 1 GM in SODIUM CHLORIDE 0.9% 100 ML IVPB SCH ×2 (17:06→23:30)
[2020-03-01 18:25] LABS: Glucose,Whole Blood 132 mg/dL (75-99)
[2020-03-01] MEDS ORDERED: FUROSEMIDE 10 MG/ML 2 ML VIAL IV ONE (19:08)
--- NOTE | 2020-03-01 20:08 | P.PN ---
Subjective 69-year-old male was cleaning gutters fell from skin feet ladder was brought into emergency department found to have several left-sided fractures left-sided pneumothorax with a left-sided chest tube presently patient is presently intubated patient has multiple left-sided fractures from third to seventh rib patient also had a splenectomy for splenic injury. Patient is presently sedated with propofol and also morphine drip patient is presently on ventilatory support blood gases showed normal pH pCO2 and pO2 are within normal limits as well pat ient is presently onZosyn patient had lactic acidosis secondary tolactated Ringer's. Patient is hyperchloremic because of which probably will start him on half-normal saline. 02/19/2020 Patient is expected today and shortly after that patient didn't tolerate that and patient ended up undergoing an atrial fibrillation patient was started on amiodarone patient was subsequently reintubated. Patient is bit hyponatremic because of extensive switching the IV fluids to normal saline instead of half- normal saline. Patient is also getting amiodarone. D5 water. Patient is not requiring any pressors at this time. Please refer to intensive is documentation for further details of ventilator settings. 02/20/2020 Patient developed ongoing trial patient is having sedation vacation patient heart rate is better controlled patient overall clinical condition is bit better today 02/21/2020 Patient still in the ICU, he is intubated and sedated. Chest tube is in place and it hasn't output about 325 in 24 hours, propofol was switched to Paradox by critical care team. Pulmonary/critical care troponin measuring the event, sugar was low but most likely this is a false reading because patient is edematous. Surgical wound in the middle of the abdomen it looks clean and dry and closed. Patient is getting IV morphine. Creatinine and electrolytes are normal. Echocardiogram showing ejection fraction of 55-60% with moderate to severe mitral regurgitation His WBCs 17.3 K. Liver enzymes are trending down 02/22/2020 Patient the ICU, he could not tolerate the current sedative and he had to be placed back on the propofol, he got agitated overnight and he needed restraints. These making about 1 5200 mL of chest tube drainage every 12 hours Lasix is added. Also he had low-grade temperature and mild increase in WBC, he still on Zosyn and IV on the case. Cultures are negative so far 02/23/2020 Patient remains in the ICU, intubated and sedated on a propofol, he looks calm. Patient undergoing sedation holiday and pulmonary team managing his vent He still has low-grade fever 99.7, leukocytosis or interrupted 22K. BMP is unremarkable. Cultures are negative so far, infectious disease and pulmonary/critical care team on the case. Chest x-ray showing unchanged radiographic appearance of tubes and lines, mildly improved aeration of bilateral lung bases with persistent small bilateral pleural effusions and bibasilar air space opacity and multiple left-sided displaced rib fractures Currently he is on Zosyn 02/24/2020 Patient still intubated and sedated, he undergoing sedation holiday and he wakes up then to be breathing trial Patient is improving on Zosyn, no fever however culture are negative. Patient is still getting intermittent feeding. Chest tube still on the left side with about 150-200 mL of discharge every 12 hour period , surgery team on the case patient may need a PEG tube and tracheostomy if he fails a voiding trial 02/24 Patient remains in the ICU intubated and sedated, despite being on Precedex. Today he developed A. fib with RVR, he has history of A. fib. before, he Is currently not on anticoagulation other than DVT prophylaxis with Lovenox due to his hematoma. Patient was started on amiodarone drip, his rate is controlled, is controlled. Computed tomography scan of the abdomen is requested to assess his hematoma. He still has fever at 100.1 Hemoglobin is 8.8, which is stable compared to yesterday. PH normal 7.4 with normal pCO2 at 43 and low pO2 at 68, BMP is unremarkable and sugar is controlled. Surgical team were consulted for possible PEG and tracheostomy Prognosis remains very guarded. 02/26/20 Patient still on ventilation, he got tracheostomy yesterday and hysterectomy that well. Sedation is off however patient is restless and agitated, however patient does not follow, He developed another atrial fibrillation with rapid rate and he was started on amiodarone drip at 0.5. Cardizem may be added as well. Cardiology of the case Surgery team are following the patient for possible PEG placement. Possibly today. Patient remains on Zosyn, amiodarone, which can be switched to oral per [employer] and Cardizem as needed 02/28/20 Patient remains in the ICU, his status post tracheostomy, PEG tube placement was postponed f by surgery team. He still has PICC line and left-sided chest tube with more than 100 mL of fluid draining but it is serous. Antibiotics has changed from Zosyn to vancomycin and cefepime, catheter tip culture and sensitivity was sent. CT of the abdomen and pelvis showing increased left basilar, CT. Neurologist neurologist evaluated the patient and EEG is negative for epileptiform activity but showing severe encephalopathy WBC is 19 KI patient has no fever today Neurologist recommended MRI of the brain and cervical spine when she is more stable 02/29/20 Patient remains intubated and sedated on a propofol, tracheostomy in this place, also left-sided chest tube with service discharge only. Patient underwent bronchoscopy and bronchoalveolar lavage of the right upper lobe, and follow-up the results Patient is hemodynamically stable WBC still 19 K and sodium 148. Patient remains on antibiotics per infectious disease recommendation. And she was followed also by pulmonary/critical care team, surgery team. Patient remains intubated and sedated, any target dose of sedation actually. He still have PICC line, tracheostomy, left chest tube service discharge and has Nolan catheter PEG tube placement was postponed currently. Patient showing low-grade fever today. And WBC went up to 20 9K. Creatinine is normal and sodium 148. He is still on mechanical ventilation and pulmonary /critical care team following the case. Currently his on 10 PEEP and FiO2 of 60%. EEG showing no epileptiform activity and moderate to severe encephalopathy. Neurology service on the case and the recommended to proceed with lumbar puncture. Also follow-up. Bronchoscopy lavage results Possible discontinue the chest tube for pulmonary service. Patient is followed by several consultants including pulmonary, cardiology, infectious disease, neurology and surgery Prognosis remains guarded Review of systems: N/ Active Medications Generic Name Dose Route Start Last Admin Trade Name Freq PRN Reason Stop Dose Admin Acetaminophen 650 mg 02/20/20 22:00 03/01/20 13:25 Tylenol Tab PO 650 mg Q6HR PRN Administration Fever and/ or Pain Amiodarone HCl 200 mg 02/27/20 09:00 03/01/20 08:12 Cordarone PO 200 mg BID BETTINA Administration Atorvastatin Calcium 20 mg 02/18/20 21:00 02/29/20 20:38 Lipitor PO 20 mg HS BETTINA Administration Chlorhexidine Gluconate 15 ml 02/18/20 12:00 03/01/20 08:12 Peridex MUCOUS MEM 15 ml BID BETTINA Administration Docusate Sodium 100 mg 02/26/20 09:00 03/01/20 08:12 Colace Oral Soln PO 100 mg BID BETTINA Administration Enoxaparin Sodium 40 mg 03/01/20 13:56 Lovenox SQ DAILY BETTINA Finasteride 5 mg 02/18/20 21:00 02/29/20 20:39 Proscar PO 5 mg HS BETTINA Administration Morphine Sulfate 100 mg/ 102 mls @ 2.04 mls/hr 02/17/20 21:30 02/29/20 15:17 Sodium Chloride IV 2 mg/hr .Q24H BETTINA 2.04 mls/hr Infusion 2 MG/HR Propofol 1,000 mg/ IV Solution 100 mls @ 0 mls/hr 02/17/20 22:45 03/01/20 18:15 IV 10 mcg/kg/min .Q0M BETTINA 5.574 mls/hr Titration Protocol Titrate Sodium Chloride 1,000 mls @ 20 mls/hr 02/19/20 11:45 03/01/20 10:53 Saline 0.9% IV Not Given .Q24H BETTINA Clevidipine 25 mg/ IV Solution 50 mls @ 2 mls/hr 02/21/20 12:45 03/01/20 13:43 IV Not Given .Q24H BETTINA Protocol 1 MG/HR Diltiazem HCl 125 mg/ Sodium 125 mls @ 0 mls/hr 02/26/20 10:00 02/29/20 11:46 Chloride IV 5 mg/hr .Q0M BETTINA 5 mls/hr Administration Protocol Per Protocol Vancomycin HCl 1,750 mg/ 500 mls @ 167 mls/hr 02/28/20 05:00 03/01/20 17:26 Sodium Chloride IVPB 167 mls/hr Q12H BETTINA Administration Anidulafungin 100 mg/ Sodium 100 mls @ 84 mls/hr 03/01/20 17:00 03/01/20 16:38 Chloride IVPB 84 mls/hr DAILY@1700 BETTINA Administration Midazolam HCl 50 mg/ Sodium 50 mls @ 1 mls/hr 03/01/20 02:00 03/01/20 17:39 Chloride IV 2 mg/hr .Q24H BETTINA 2 mls/hr Titration Protocol 1 MG/HR Dextrose/Water 1,000 mls @ 125 mls/hr 03/01/20 09:00 03/01/20 17:17 Dextrose 5%-Water Iv Soln IV 125 mls/hr .Q8H BETTINA Administration Meropenem 1 gm/ Sodium 100 mls @ 33.3 mls/hr 03/01/20 16:15 03/01/20 17:06 Chloride IVPB 33.3 mls/hr Q8HR BETTINA Administration Protocol Insulin Aspart 0 unit 02/18/20 13:00 03/01/20 18:35 Novolog SQ Not Given Q6HR [facility] Protocol Lactulose 30 gm 03/01/20 09:00 03/01/20 18:37 Cephulac PO 30 gm QID BETTINA Administration Miscellaneous Information 1 each 02/18/20 05:19 Magnesium Per Protocol MISCELLANE DAILY PRN Per Protocol Protocol Miscellaneous Information 1 each 02/19/20 05:38 Potassium Per Protocol MISCELLANE DAILY PRN Per Protocol Protocol Miscellaneous Information 1 each 02/27/20 15:58 Pharmacy To Dose Iv Vancomycin MISCELLANE DIRECTED PRN Per Protocol Protocol Naloxone HCl 0.2 mg 02/17/20 19:37 Narcan IV Q2M PRN Opioid Reversal Quetiapine Fumarate 50 mg 02/23/20 21:00 03/01/20 08:30 Seroquel PO 50 mg BID BETTINA Administration Sodium Chloride 10 ml 02/26/20 15:12 Saline Flush IV Q4HR PRN PICC Line Sodium Chloride 10 ml 03/04/20 09:00 Saline Flush IV WEEKLY BETTINA Sodium Chloride 20 ml 02/26/20 15:12 Saline Flush IV Q4HR PRN PICC Line Tamsulosin HCl 0.8 mg 02/18/20 21:00 02/29/20 20:43 Flomax PO Not Given HS BETTINA Thiamine HCl 100 mg 02/27/20 10:45 03/01/20 08:14 Vitamin B-1 PO 100 mg DAILY BETTINA Administration Objective - Vital Signs Vital signs: Vital Signs Temp 100.7 F H 03/01/20 16:00 Pulse 85 03/01/20 18:00 Resp 24 03/01/20 18:00 BP 101/48 03/01/20 18:00 Pulse Ox 92 L 03/01/20 18:00 Intake & Output 02/29/20 03/01/20 03/01/20 18:59 06:59 18:59 Intake Total 2838.393 1706.090 6944.366 Output Total 1290 1220 1060 Balance 1548.393 946.845 7830.366 Weight 92.9 kg Intake: IV 60 610 354 Cefepime 2 gm In Sodium 100 Chloride 0.9% 100 ml @ 25 mls/hr IVPB Q12HR [facility] Rx #:[id number] Dextrose 5% in Water 1, 450 000 ml @ 75 mls/hr IV . [id number] ONE Rx#:[id number] Sodium Chloride 0.9% 1, 60 60 20 000 ml @ 20 mls/hr IV . Q24H [facility] Rx#:[id number] Vancomycin 1,750 mg In 334 Sodium Chloride 0.9% 500 ml 500 ml @ 167 mls/hr IVPB Q12H [facility] Rx#: [id number] Intake, IV Titration 1948.393 974.439 4481.366 Amount Anidulafungin 100 mg In 200 Sodium Chloride 0.9% 100 ml @ 84 mls/hr IVPB DAILY @1700 [facility] Rx#:[id number] Anidulafungin 200 mg In 200 Sodium Chloride 0.9% 200 ml @ 84 mls/hr IVPB ONCE ONE Rx#:[id number] Cefepime 2 gm In Sodium 100 Chloride 0.9% 100 ml @ 25 mls/hr IVPB Q12HR [facility] Rx #:[id number] Dextrose 5% in Water 1, 1125 000 ml @ 125 mls/hr IV . Q8H [facility] Rx#:[id number] Dextrose 5% in Water 1, 675 75 000 ml @ 75 mls/hr IV . [id number] ONE Rx#:[id number] Diltiazem 125 mg In 113.833 Sodium Chloride 0.9% 100 ml @ Per Protocol IV .Q0M [facility] Rx#:[id number] Meropenem 1 gm In Sodium 100 Chloride 0.9% 100 ml @ 33 .3 mls/hr IVPB Q8HR [facility] Rx#:[id number] Midazolam HCl 50 mg In 4.283 77.734 Sodium Chloride 0.9% 40 ml @ 1 MG/HR 1 mls/hr IV .Q24H [facility] Rx#:[id number] Morphine Sulfate (100 mg/ 29.869 2 ml) 100 mg In Sodium Chloride 0.9% 100 ml @ 2 MG/HR 2.04 mls/hr IV . Q24H [facility]TINA Rx#:[id number] Vancomycin 1,750 mg In 500 Sodium Chloride 0.9% 500 ml 500 ml @ 167 mls/hr IVPB Q12H [facility] Rx#: [id number] propofoL 1,000 mg In 329.691 320.655 314.632 Empty Bag 1 bag @ Titrate IV .Q0M BETTINA Rx#: [id number] Tube Feeding 600 600 550 Other 230 300 Output: Chest Tube Drainage 60 440 Chest Tube Left Upper 60 440 Lateral Chest Urine 1230 1220 620 Other: Voiding Method Indwelling Catheter Indwelling Catheter Indwelling Catheter # Bowel Movements 1 ABP, PAP, CO, CI - Last Documented Arterial Blood Pressure 111/102 - Exam -GENERAL: The patient is intubated and sedated HEENT: Pupils are round and equally reacting to light. EOMI. No scleral icterus. No conjunctival pallor. Normocephalic, atraumatic. No pharyngeal erythema. No thyromegaly. CARDIOVASCULAR: S1 and S2 present. No murmurs, rubs, or gallops. -PULMONARY: Chest is clear to auscultation, no wheezing or crackles. Left-sided chest tube midline vertical surgical wound is clean and dry and closed -ABDOMEN: Soft, nontender, nondistended, normoactive bowel sounds. No palpable organomegaly. MUSCULOSKELETAL: No joint swelling or deformity. EXTREMITIES: No cyanosis, clubbing, or pedal edema. NEUROLOGICAL: Gross neurological examination did not reveal any focal deficits. SKIN: No rashes. no petechiae. - Labs CBC & Chem 7: 03/01/20 03:59 03/01/20 03:59 Labs: Abnormal Lab Results - Last 24 Hours (Table) 02/29/20 03/01/20 03/01/20 Range/Units 23:53 03:59 03:59 WBC 29.7 H (3.8-10.6) k/uL RBC 2.92 L (4.30-5.90) m/uL Hgb 8.4 L (13.0-17.5) gm/dL Hct 27.0 L (39.0-53.0) % RDW 16.4 H (11.5-15.5) % Plt Count 611 H (150-450) k/uL Neutrophils # (Manual) 24.90 H (1.3-7.7) k/uL Lymphocytes # (Manual) 0.30 L (1.0-4.8) k/uL Eosinophils # (Manual) 2.38 H (0-0.7) k/uL Metamyelocytes # (Man) 0.59 H (0) k/uL Myelocytes # (Manual) 0.89 H (0) k/uL Nucleated RBCs 18 H (0-0) /100 WBC ABG pH (7.35-7.45) ABG pO2 (83-108) mmHg ABG HCO3 (21-25) mmol/L ABG Total CO2 (19-24) mmol/L ABG O2 Saturation (94-97) % Sodium 148 H (137-145) mmol/L Chloride 116 H (98-107) mmol/L BUN 33 H (9-20) mg/dL Glucose 112 H (74-99) mg/dL POC Glucose (mg/dL) 123 H (75-99) mg/dL Ammonia (<30) umol/L Urine Protein (Negative) Urine WBC (0-5) /hpf Amorphous Sediment (None) /hpf Urine Bacteria (None) /hpf Urine Mucus (None) /hpf 03/01/20 03/01/20 03/01/20 Range/Units 05:35 07:18 09:10 WBC (3.8-10.6) k/uL RBC (4.30-5.90) m/uL Hgb (13.0-17.5) gm/dL Hct (39.0-53.0) % RDW (11.5-15.5) % Plt Count (150-450) k/uL Neutrophils # (Manual) (1.3-7.7) k/uL Lymphocytes # (Manual) (1.0-4.8) k/uL Eosinophils # (Manual) (0-0.7) k/uL Metamyelocytes # (Man) (0) k/uL Myelocytes # (Manual) (0) k/uL Nucleated RBCs (0-0) /100 WBC ABG pH 7.48 H (7.35-7.45) ABG pO2 53 L* (83-108) mmHg ABG HCO3 26 H (21-25) mmol/L ABG Total CO2 28 H (19-24) mmol/L ABG O2 Saturation 88.4 L (94-97) % Sodium (137-145) mmol/L Chloride (98-107) mmol/L BUN (9-20) mg/dL Glucose (74-99) mg/dL POC Glucose (mg/dL) 157 H (75-99) mg/dL Ammonia 32 H (<30) umol/L Urine Protein (Negative) Urine WBC (0-5) /hpf Amorphous Sediment (None) /hpf Urine Bacteria (None) /hpf Urine Mucus (None) /hpf 03/01/20 03/01/20 03/01/20 Range/Units 09:10 11:14 18:23 WBC (3.8-10.6) k/uL RBC (4.30-5.90) m/uL Hgb (13.0-17.5) gm/dL Hct (39.0-53.0) % RDW (11.5-15.5) % Plt Count (150-450) k/uL Neutrophils # (Manual) (1.3-7.7) k/uL Lymphocytes # (Manual) (1.0-4.8) k/uL Eosinophils # (Manual) (0-0.7) k/uL Metamyelocytes # (Man) (0) k/uL Myelocytes # (Manual) (0) k/uL Nucleated RBCs (0-0) /100 WBC ABG pH (7.35-7.45) ABG pO2 (83-108) mmHg ABG HCO3 (21-25) mmol/L ABG Total CO2 (19-24) mmol/L ABG O2 Saturation (94-97) % Sodium (137-145) mmol/L Chloride (98-107) mmol/L BUN (9-20) mg/dL Glucose (74-99) mg/dL POC Glucose (mg/dL) 151 H 132 H (75-99) mg/dL Ammonia (<30) umol/L Urine Protein Trace H (Negative) Urine WBC 8 H (0-5) /hpf Amorphous Sediment Rare H (None) /hpf Urine Bacteria Occasional H (None) /hpf Urine Mucus Rare H (None) /hpf Microbiology - Last 24 Hours (Table) 03/01/20 09:10 Body Fluid Culture - Preliminary Pleural Fluid 03/01/20 09:10 Urine Culture - Preliminary Urine,Catheterized 02/29/20 11:00 Gram Stain - Preliminary Bronchial Washings - Right Bronchial Washings Culture - Preliminary 02/29/20 11:00 Fungal Culture - Preliminary Bronchial Washings - Right Assessment and Plan Assessment: - Fall from ladder with trauma to chest and abdomen with traumatic hydro- pneumothorax , status post chest tube -Splenic injury status post splenectomy patient had appropriate on him as well postoperative day 7. -Acute ventilatory dependent respiratory failure hypoxic secondary to polytrauma, pneumothorax and splenic injury, continue with the ventilatory support and wean off as tolerated. days of empiric antibiotics with Zosyn -A. fib with RVR worsening -left basilar opacity, but exchanged to vancomycin and cefepime by ID team -Traumatic left-sided rib fractures, alert to 7 -hyponatremia: Secondary to half-normal saline was switched to normal saline -Hemorrhagic shock on admission which improved patient received 4 units of PRBC transfusion presently hemodynamically stable is not requiring any pressors -acute blood loss anemia from polytrauma pneumoperitoneum -history of carotid artery disease with previous bypass surgery -Hyperlipidemia -Benign prostatic hypertrophy
[2020-03-01 20:25] LABS: Partial Thromboplastin Time 25.1 sec (22.0-30.0); Prothrombin Time 10.6 sec (9.0-12.0)
[2020-03-01] MEDS: ATORVASTATIN 20 MG TAB PO SCH (21:15)
[2020-03-01] MEDS: TAMSULOSIN 0.4 MG CAP.ER.24H PO SCH (21:15)
[2020-03-01] MEDS: FINASTERIDE 5 MG TAB PO SCH (21:16)
[2020-03-02 00:04] LABS: Glucose,Whole Blood 155 mg/dL (75-99)
[2020-03-02] MEDS: INSULIN ASPART (NovoLOG) 100 UNIT/ML VIAL SQ SCH ×5 (00:09→23:35)
[2020-03-02] MEDS: DEXTROSE 5% IN WATER 1,000 ML IV SCH ×4 (00:22→23:24)
[2020-03-02] MEDS: VANCOMYCIN 1,750 MG in SODIUM CHLORIDE 0.9% 500 ML 500 ML IVPB SCH (04:14)
[2020-03-02 04:27] LABS: ABG Base Excess -3.3 mmol/L; ABG HCO3 22 mmol/L (21-25); ABG Oxygen Saturation 90.1 % (94-97); ABG PCO2 41 mmHg (35-45); ABG PH 7.35 (7.35-7.45); ABG PO2 62 mmHg (83-108); ABG TCO2 24 mmol/L (19-24); Allen Test Performed? Yes
--- NOTE | 2020-03-02 05:03 | PN ---
PROGRESS NOTE DATE OF SERVICE: 03/01/2020 REASON FOR FOLLOWUP: Fever and question of pneumonia. INTERVAL HISTORY: Patient has been spiking fever today with a T-max of 103 degrees Fahrenheit. The patient is hemodynamically stable, not on any pressor support. FiO2 is currently up to 60%. No significant purulent secretion through the ET or any change reported by the nursing staff. He is tolerating his tube feeds and no diarrhea. PHYSICAL EXAMINATION: Blood pressure 118/50 with a pulse of 89, temperature 98. He is 93% on 60% FiO2. General description is an elderly male lying in bed in no distress. RESPIRATORY SYSTEM: Unlabored breathing, decreased breath sounds at the bases. No wheeze. HEART: S1, S2. Regular rate and rhythm. ABDOMEN: Soft, no tenderness. LABS: UA has been negative. Hemoglobin 8.4, white count 29.7. BUN of 33, creatinine 0.75. Pleural fluid culture obtained currently pending. Chest x-ray this morning, bilateral interstitial and patchy airspace disease. Consolidation is slightly less confluent on the right, stable. DIAGNOSTIC IMPRESSION AND PLAN: Patient with fever and also noted to have significant jump in his white count in this patient who has been re-cultured including blood and sputum as well as pleural fluid. Vancomycin will be continued. However, we will switch over cefepime to meropenem and continue with Eraxis. Further adjustment based on the clinical response and culture. at the bedside. Questions were answered. MMODL / IJN: [id number] /
[2020-03-02 05:24] LABS: Anisocytosis Slight; HCT 27.5 % (39.0-53.0); HGB 7.8 gm/dL (13.0-17.5); Hypochromasia Marked; MCH 27.5 pg (25.0-35.0); MCHC 28.6 g/dL (31.0-37.0); MCV 96.3 fL (80.0-100.0); Platelet Count 497 k/uL (150-450); Poikilocytosis Slight; RBC 2.85 m/uL (4.30-5.90); RDW 16.3 % (11.5-15.5)
[2020-03-02 05:37] LABS: Calcium 7.8 mg/dL (8.4-10.2)
[2020-03-02 05:41] LABS: Potassium 4.9 mmol/L (3.5-5.1)
[2020-03-02 05:59] LABS: Band Neutrophils % 27 %; Neutrophils % (M) 58 %; Nucleated Red Blood Cells 13 /100 WBC (0-0); Total Cells Counted 200
[2020-03-02 06:00] LABS: Eosinophils # (M) 0.78 k/uL (0-0.7); Lymphocytes # (M) 3.12 k/uL (1.0-4.8); Monocytes # (M) 2.34 k/uL (0-1.0)
[2020-03-02 06:01] LABS: Large Platelets Present; Polychromasia Present
[2020-03-02 06:06] LABS: Toxic Vacuolation Present
[2020-03-02 06:15] LABS: Glucose,Whole Blood 138 mg/dL (75-99)
--- NOTE | 2020-03-02 08:35 | XR ---
EXAMINATION TYPE: XR chest 1V portable DATE OF EXAM: 03/02/2020 COMPARISON: 03/01/2020 INDICATION: Infiltrate TECHNIQUE: Single frontal view of the chest is obtained. FINDINGS: The heart size is normal. The pulmonary vasculature is normal. Tracheostomy is in the midline. There is an infiltrate in the right upper lobe which is worsening. Le ft peripheral midlung and right lower lobe infiltrates are increased over the interval. Nasogastric tube is present with tip in the left upper quadrant of the abdomen. Left basilar chest tu be is present. Left posterior lateral rib fractures are present upper lung field no pneumothorax is p resent. PICC line enters on the left with tip in the superior vena cava region. IMPRESSION: 1. Worsening right upper and lower lobe infiltrates and mild increased left mid peripheral filtrate. 2. Lines and catheters discussed above
--- NOTE | 2020-03-02 08:41 | P.PCN ---
Date of Procedure: 03/02/20 Procedure(s) Performed: Preoperative diagnosis: Meningitis Post operative diagnoses: Meningitis Procedure= lumbar puncture Anesthesia local infiltration with lidocaine 1% 2 mL. Condition: Critical Complication: none. Description of the procedure procedure risk and benefits discussed with the patiens family, consent signed. Patient"s in the intensive care unit he is already sedated with the propofol and Versed, as per ICU team, patient placed in lateral position (left side down ), back prepped with chlorhexidine 3 times been local infiltration of the skin and subcutaneous tissue with lidocaine 1% 2 mL for skin and subcu interstitial frustrations at L4 5 levels then 22-gauge Quincke-type needle advanced slowly at L4- 5 interlaminar space there was positive cerebrospinal fluid which was clear, no heme, no paresthesia ,total of 9 ML of clear cerebrospinal fluid collected in 4 different tubes 2-2-1/2 mL in each, then the needle removed and a Band-Aid applied and patient tolerated the procedure well without any complications. Test dose of Lovenox was yesterday at 8 AM, Lovenox will be resumed 12 hours after the procedure
[2020-03-02] MEDS: ENOXAPARIN 40 MG/0.4 ML SYRINGE SQ SCH (09:04)
[2020-03-02 10:04] LABS: Partial Thromboplastin Time 26.3 sec (22.0-30.0); Prothrombin Time 10.7 sec (9.0-12.0)
[2020-03-02] MEDS: CHLORHEXIDINE GLUCONATE 15 ML CUP MUCOUS MEM SCH ×2 (10:18→21:29)
[2020-03-02] MEDS: QUEtiapine 50 MG TAB PO SCH ×2 (10:19→21:30)
[2020-03-02] MEDS: MEROPENEM 1 GM in SODIUM CHLORIDE 0.9% 100 ML IVPB SCH (10:20)
[2020-03-02] MEDS: AMIODARONE 200 MG TAB PO SCH ×2 (10:20→21:30)
[2020-03-02] MEDS: THIAMINE 100 MG TAB PO SCH (10:20)
[2020-03-02] MEDS: DOCUSATE ORAL SOLN 100 MG/10 ML CUP PO SCH ×2 (10:21→21:22)
[2020-03-02] MEDS: SODIUM CHLORIDE 0.9% 1,000 ML IV SCH (10:24)
[2020-03-02 10:36] LABS: Glucose,CSF 93 mg/dL (40-70); Total Protein,CSF 50 mg/dL (12-60)
[2020-03-02] MEDS: DILTIAZEM 125 MG in SODIUM CHLORIDE 0.9% 100 ML IV SCH (11:18)
[2020-03-02] MEDS: IPRATROPIUM-ALBUTEROL 3 ML NEB INHALATION SCH ×3 (11:22→20:10)
[2020-03-02] MEDS ORDERED: FUROSEMIDE 10 MG/ML 4 ML VIAL IV STA (12:32)
[2020-03-02] MEDS: CLEVIDIPINE BUTYRATE 25 MG in EMPTY BAG 1 BAG IV SCH (12:33)
[2020-03-02 12:37] LABS: Glucose,Whole Blood 156 mg/dL (75-99)
[2020-03-02 13:38] LABS: Appearance,CSF Clear; CSF Tube Number 4; CSF Tube Volume 2.5
[2020-03-02 13:39] LABS: Nucleated Cells, CSF 1 u/L (0-5); Red Blood Cell, CSF Crenated 20 %; Red Blood Cell, CSF Fresh 80 %; Red Blood Cell,CSF 17 u/L (0-10)
--- NOTE | 2020-03-02 14:05 | P.PN ---
Subjective Progress Note Date: 03/02/20 CHIEF COMPLAINT: Fall with Trauma HISTORY OF PRESENT ILLNESS: Patient seen with Dr. Ivy. This is a 69-year-old male who fell 15 feet off the top of the ladder. Patient's CAT scan was performed showing a large left pneumothorax as well as multiple rib fractures and hemoperitoneum and a ruptured spleen. Patient is status post splenectomy. He is on antibiotics. Patient is status post tracheostomy p lacement due to his respiratory failure and unable to wean from vent. Patient remains in ICU. He is having fevers. T-max 103 he is down to 98.7 white count 39 hemoglobin 7.8 creatinine 1.67. He did have a fevers over the weekend. He is getting a spinal tap today. He is having diarrhea stool for C. diff was ordered. PHYSICAL EXAM: VITAL SIGNS: Reviewed. GENERAL: Well-developed in no acute distress. HEENT: No sclera icterus. Extraocular movements grossly intact. Moist buccal mucosa. Head is atraumatic, normocephalic. Trach site clean dry and intact ABDOMEN: Soft. Nondistended. Incision site clean dry and intact NEUROLOGIC: Patient is sedated ASSESSMENT: 1. 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 2. Status post tracheostomy for respiratory failure 3. Status post fall off a ladder with, to chest and abdomen 4. Left-sided pneumothorax has chest tube in place 5. Multiple left-sided rib fractures 6. Alcohol intoxication 7. Acute hypoxic ventilatory dependent respiratory failure. 8. Chronic pain medication 9. Absolute atrial fibrillation with rapid ventricular response PLAN: -Continue tube feedings -Continue ICU management -On IV antibiotics and antifungal -Check stool for C. diff -lovenox for DVT prophylaxis Physician Rand Tacker note has been reviewed by physician. Signing provider agrees with the documented findings, assessment, and plan of care. Objective - Vital Signs Vital signs: Vital Signs Temp 98.7 F 03/02/20 04:00 Pulse 95 03/02/20 11:42 Resp 23 03/02/20 06:00 BP 114/61 03/02/20 06:00 Pulse Ox 96 03/02/20 06:00 Intake & Output 03/01/20 03/02/20 03/02/20 18:59 06:59 18:59 Intake Total 3163.785 2893.456 430.230 Output Total 1060 450 25 Balance 2103.785 2443.456 405.230 Weight 98.4 kg 98.4 kg Intake: IV 354 334 Sodium Chloride 0.9% 1, 20 000 ml @ 20 mls/hr IV . Q24H [facility] Rx#:[id number] Vancomycin 1,750 mg In 334 334 Sodium Chloride 0.9% 500 ml 500 ml @ 167 mls/hr IVPB Q12H [facility] Rx#: [id number] Intake, IV Titration 5159.309 6224.456 380.230 Amount Anidulafungin 100 mg In 200 Sodium Chloride 0.9% 100 ml @ 84 mls/hr IVPB DAILY @1700 [facility] Rx#:[id number] Dextrose 5% in Water 1, 1125 1500 125 000 ml @ 125 mls/hr IV . Q8H [facility] Rx#:[id number] Diltiazem 125 mg In 125 Sodium Chloride 0.9% 100 ml @ Per Protocol IV .Q0M [facility] Rx#:[id number] Meropenem 1 gm In Sodium 100 100 Chloride 0.9% 100 ml @ 33 .3 mls/hr IVPB Q8HR [facility] Rx#:[id number] Midazolam HCl 50 mg In 77.734 33.3 Sodium Chloride 0.9% 40 ml @ 1 MG/HR 1 mls/hr IV .Q24H [facility] Rx#:[id number] Morphine Sulfate (100 mg/ 91.12 2 ml) 100 mg In Sodium Chloride 0.9% 100 ml @ 2 MG/HR 2.04 mls/hr IV . Q24H [facility] Rx#:[id number] propofoL 1,000 mg In 332.051 59.456 130.810 Empty Bag 1 bag @ Titrate IV .Q0M [facility] Rx#: [id number] Tube Feeding 550 600 50 Other 300 300 Output: Chest Tube Drainage 440 160 Chest Tube Left Upper 440 160 Lateral Chest Urine 620 290 25 Other: Voiding Method Indwelling Catheter Indwelling Catheter # Bowel Movements 1 3 ABP, PAP, CO, CI - Last Documented Arterial Blood Pressure 111/102 - Labs CBC & Chem 7: 03/02/20 04:16 03/02/20 09:33 Labs: Abnormal Lab Results - Last 24 Hours (Table) 03/01/20 03/02/20 03/02/20 Range/Units 18:23 00:03 04:16 WBC 39.0 H (3.8-10.6) k/uL RBC 2.85 L (4.30-5.90) m/uL Hgb 7.8 L (13.0-17.5) gm/dL Hct 27.5 L (39.0-53.0) % MCHC 28.6 L (31.0-37.0) g/dL RDW 16.3 H (11.5-15.5) % Plt Count 497 H (150-450) k/uL Neutrophils # (Manual) 33.10 H (1.3-7.7) k/uL Monocytes # (Manual) 2.34 H (0-1.0) k/uL Eosinophils # (Manual) 0.78 H (0-0.7) k/uL Nucleated RBCs 13 H (0-0) /100 WBC ABG pO2 (83-108) mmHg ABG O2 Saturation (94-97) % Chloride (98-107) mmol/L Carbon Dioxide (22-30) mmol/L BUN (9-20) mg/dL Creatinine (0.66-1.25) mg/dL Glucose (74-99) mg/dL POC Glucose (mg/dL) 132 H 155 H (75-99) mg/dL Calcium (8.4-10.2) mg/dL CSF RBC (0-10) u/L CSF Glucose (40-70) mg/dL 03/02/20 03/02/20 03/02/20 Range/Units 04:16 04:27 06:14 WBC (3.8-10.6) k/uL RBC (4.30-5.90) m/uL Hgb (13.0-17.5) gm/dL Hct (39.0-53.0) % MCHC (31.0-37.0) g/dL RDW (11.5-15.5) % Plt Count (150-450) k/uL Neutrophils # (Manual) (1.3-7.7) k/uL Monocytes # (Manual) (0-1.0) k/uL Eosinophils # (Manual) (0-0.7) k/uL Nucleated RBCs (0-0) /100 WBC ABG pO2 62 L (83-108) mmHg ABG O2 Saturation 90.1 L (94-97) % Chloride 109 H (98-107) mmol/L Carbon Dioxide 21 L (22-30) mmol/L BUN 50 H (9-20) mg/dL Creatinine 1.67 H (0.66-1.25) mg/dL Glucose 117 H (74-99) mg/dL POC Glucose (mg/dL) 138 H (75-99) mg/dL Calcium 7.8 L (8.4-10.2) mg/dL CSF RBC (0-10) u/L CSF Glucose (40-70) mg/dL 03/02/20 03/02/20 03/02/20 Range/Units 08:17 08:30 09:33 WBC (3.8-10.6) k/uL RBC (4.30-5.90) m/uL Hgb (13.0-17.5) gm/dL Hct (39.0-53.0) % MCHC (31.0-37.0) g/dL RDW (11.5-15.5) % Plt Count (150-450) k/uL Neutrophils # (Manual) (1.3-7.7) k/uL Monocytes # (Manual) (0-1.0) k/uL Eosinophils # (Manual) (0-0.7) k/uL Nucleated RBCs (0-0) /100 WBC ABG pO2 (83-108) mmHg ABG O2 Saturation (94-97) % Chloride (98-107) mmol/L Carbon Dioxide (22-30) mmol/L BUN (9-20) mg/dL Creatinine (0.66-1.25) mg/dL Glucose 124 H 128 H (74-99) mg/dL POC Glucose (mg/dL) (75-99) mg/dL Calcium (8.4-10.2) mg/dL CSF RBC 17 H (0-10) u/L CSF Glucose 93 H (40-70) mg/dL 03/02/20 Range/Units 12:36 WBC (3.8-10.6) k/uL RBC (4.30-5.90) m/uL Hgb (13.0-17.5) gm/dL Hct (39.0-53.0) % MCHC (31.0-37.0) g/dL RDW (11.5-15.5) % Plt Count (150-450) k/uL Neutrophils # (Manual) (1.3-7.7) k/uL Monocytes # (Manual) (0-1.0) k/uL Eosinophils # (Manual) (0-0.7) k/uL Nucleated RBCs (0-0) /100 WBC ABG pO2 (83-108) mmHg ABG O2 Saturation (94-97) % Chloride (98-107) mmol/L Carbon Dioxide (22-30) mmol/L BUN (9-20) mg/dL Creatinine (0.66-1.25) mg/dL Glucose (74-99) mg/dL POC Glucose (mg/dL) 156 H (75-99) mg/dL Calcium (8.4-10.2) mg/dL CSF RBC (0-10) u/L CSF Glucose (40-70) mg/dL Microbiology - Last 24 Hours (Table) 03/01/20 09:10 Urine Culture - Final Urine,Catheterized 03/01/20 09:10 Blood Culture - Preliminary Blood No Growth after 24 hours 03/01/20 09:10 Gram Stain - Preliminary Pleural Fluid Body Fluid Culture - Preliminary 02/29/20 11:00 Gram Stain - Final Bronchial Washings - Right Bronchial Washings Culture - Final
--- NOTE | 2020-03-02 14:10 | PN ---
PROGRESS NOTE PULMONARY/CRITICAL CARE PROGRESS NOTE: DATE OF SERVICE: 03/02/2020 This is a 70-year-old gentleman who was admitted way back on February 17, 2020. He apparently fell and sustained a number of injuries including a possible flail chest, a splenic rupture, hypovolemic shock, and multiple left rib fractures between ribs 3 through 7. On 02/16, the same day of admission, he underwent splenectomy. Because of failure to wean, he underwent tracheostomy on February 25, 2020. He did have a bronch for mucus plugs performed on February 29, 2020. He also has a left chest tube for a pneumothorax. Currently, he remains on the ventilator. He is on the volume assist- control mode rate of 20, tidal volume 500, FiO2 of 60%, PEEP of 10. Blood gases show pO2 of 62, pCO2 of 41 and a pH of 7.35. The patient remains on propofol at 30 mcg/kg per minute, D5W at 125 mL an hour, morphine sulfate drip at 2 mg an hour, Versed at 2 mg/hour, Cardizem 5 mg an hour, and Vital high-protein at 50 with a goal of 50 mL an hour. We are going to see if we can get him off the Versed. I told the nurses that they could go up on the propofol. In addition, will see if we cannot introduce some intermittent IV push morphine and get him off the morphine sulfate drip. We were going to pull the left chest tube, but because of the high output over the last 24 hours, will go ahead and leave it in, just take it off the suction and put on water seal. Other than that, the patient has been relatively stable overnight. Current vital signs are reviewed. Temperature is 98.7, heart rate 94, respiratory rate blood pressure 114/61 mean 78, saturations are 97%. Appears in no acute distress. Currently sedated. HEENT: Examination is grossly unremarkable. He has a midline tracheostomy. NECK: Supple, otherwise. Full range of motion. No adenopathy. CARDIOVASCULAR: Examination reveals regular rhythm and rate. Heart rate about 90 beats per minute. S1, S2 normal. No murmur. LUNGS: Reveal a few scattered bilateral rhonchi. No wheezes or crackles. ABDOMEN: Soft, bowel sounds are heard. EXTREMITIES: Intact. Minimal edema. SKIN: Without rash. NEUROLOGIC: Examination cannot be adequately assessed. LABS: Reviewed. White count 39,000, hemoglobin 7.8, hematocrit 27.5, platelet count 497,000. PT, INR, PTT all normal. Blood gases show pO2 of 62, pCO2 of 41 and pH is 7.35. Sodium 141, potassium 4.9, chloride 109, CO2 is 21, anion gap is 11. BUN and creatinine were 50 and 1.67. The patient did have a lumbar puncture. The CSF glucose was 93 with a total protein of 50. Calcium is 7.8. Microbiology thus far is all negative. There is some Selina species in his sputum. Blood cultures otherwise negative. A chest x-ray today shows worsening right upper and lower lobe infiltrates and mild increased left mid peripheral infiltrates. CURRENT MEDICATIONS: Reviewed. He has Tylenol, Cordarone, Eraxis. He has also got Lipitor Cardizem, chlorhexidine, Colace, Lovenox, Proscar, insulin, DuoNeb, magnesium replacement, meropenem, morphine sulfate, Narcan, potassium protocol, propofol Seroquel, Flomax, thiamine and vancomycin. ASSESSMENT: 1. Status post fall, with multiple injuries including possible flail chest, splenic rupture, status post splenectomy, multiple rib fractures, and left pneumothorax. 2. Status post splenectomy on February 17, 2020. 3. Failure to wean from mechanical ventilation, status post tracheostomy on February 25, 2020. 4. Status post bronchoscopy for mucus plugging on February 29, 2020. 5. Acute hemorrhagic shock, resolved. 6. Acute blood loss anemia, status post 4 units of PRBCs. 7. Chronic neck pain. 8. Coronary artery disease with previous bypass grafting. 9. Hyperlipidemia. 10.Paroxysmal atrial fibrillation. 11.Metabolic encephalopathy. 12.Status post PICC line placement. PLAN: Currently, the patient is doing about the same. Will make some changes in his medications. Will see if we cannot get him off bursted. I will let the nurses go a bit higher on the propofol. We will see if we can switch the morphine sulfate drip to IV push morphine. The patient remained on a Cardizem drip. He is also receiving his Vital high-protein at 50, which is goal. Additional recommendations and suggestions are forthcoming. Chest x-ray, labs, medications, etc, all evaluated. Will continue to follow. Prognosis is guarded. The left chest tube will stay in for the time being. Critical care time 34 minutes. MMODL / IJN: [id number] / MTDD
--- NOTE | 2020-03-02 14:18 | PN ---
PROGRESS NOTE DATE OF SERVICE: 03/02/2020 REASON FOR FOLLOWUP: 1. Fever. 2. Post splenectomy. INTERVAL HISTORY: Patient is currently afebrile. The patient is hemodynamically stable, not on pressor support. FiO2 is currently stable at 60%. No significant purulent secretion through the ET or any diarrhea. PHYSICAL EXAMINATION: Blood pressure 140/60 with a pulse of 90, temperature 98, he is 97% on 50% FiO2. General description is an elderly male, intubated on the vent. RESPIRATORY SYSTEM: Unlabored breathing, decreased breath sounds. No wheeze. HEART: S1, S2. Regular rate and rhythm. ABDOMEN: Soft, no tenderness. LABS: INR is 1.0, glucose 193, protein is 50, cell count is pending, blood cultures and sputum and pleural fluid cultures are currently pending. DIAGNOSTIC IMPRESSION AND PLAN: Patient with fever. Concern for possible pneumonia. Bronch culture so far pending as well as the pleural fluid culture. Patient is covered with meropenem and vancomycin. No mention of fever, that will be continued and will monitor his clinical course closely. at the bedside, questions and concerns were answered. MMODL / IJN: [id number] /
[2020-03-02] MEDS: FUROSEMIDE 100 MG in SODIUM CHLORIDE 0.9% 90 ML IV SCH ×2 (15:09→20:40)
--- NOTE | 2020-03-02 15:29 | P.PN ---
Subjective This is Ayesha Valencia PA-C dictating a progress note on this patient The patient was interviewed and examined by me Case discussed with Dr. Torres and he agrees with the plan of care HPI/interval history Patient is a 70-year-old male with a history of CAD status post CABG and paroxysmal atrial fibrillation who presented with a fall and multiple injuries. He underwent a splenectomy and a tracheostomy. He remains in the ICU, on the ventilator. Telemetry reveals atrial fibrillation with rates in the low 100s. He remains on a Cardizem drip. EXAMINATION Patient is afebrile, pulse in the low 100s, respirations 23, blood pressure 114 /61, oxygen saturation 96% on mechanical ventilation Patient seen and examined in the ICU, sedated Breath sounds equal bilaterally Heart is irregularly irregular and tachycardic Extremities warm no edema REVIEW OF LABS, ECG WBC 39.0, hemoglobin 7.8, platelets 497, potassium 4.9, BUN 50, creatinine 1.67 IMPRESSION / ASSESSMENT: #1 fall with multiple injuries including a splenic injury status post splenectomy #2 status post tracheostomy #3 paroxysmal atrial fibrillation, currently in atrial fibrillation with rates in the low 100s, not on anticoagulation due to anemia #4 history of CAD status post CABG #5 acute blood loss anemia status post multiple transfusions, hemoglobin 7.8 PLAN: Switch from IV Cardizem to oral Cardizem 60 mg 3 times a day Continue statins Continue to follow Objective - Vital Signs Vital signs: Vital Signs Temp 98.7 F 03/02/20 04:00 Pulse 95 03/02/20 11:42 Resp 23 03/02/20 06:00 BP 114/61 03/02/20 06:00 Pulse Ox 96 03/02/20 06:00 Intake & Output 03/01/20 03/02/20 03/02/20 18:59 06:59 18:59 Intake Total 3163.785 2893.456 430.230 Output Total 1060 450 25 Balance 2103.785 2443.456 405.230 Weight 98.4 kg 98.4 kg Intake: IV 354 334 Sodium Chloride 0.9% 1, 20 000 ml @ 20 mls/hr IV . Q24H [facility] Rx#:[id number] Vancomycin 1,750 mg In 334 334 Sodium Chloride 0.9% 500 ml 500 ml @ 167 mls/hr IVPB Q12H [facility] Rx#: [id number] Intake, IV Titration 1638.520 7637.456 380.230 Amount Anidulafungin 100 mg In 200 Sodium Chloride 0.9% 100 ml @ 84 mls/hr IVPB DAILY @1700 [facility] Rx#:[id number] Dextrose 5% in Water 1, 1125 1500 125 000 ml @ 125 mls/hr IV . Q8H [facility] Rx#:[id number] Diltiazem 125 mg In 125 Sodium Chloride 0.9% 100 ml @ Per Protocol IV .Q0M [facility] Rx#:[id number] Meropenem 1 gm In Sodium 100 100 Chloride 0.9% 100 ml @ 33 .3 mls/hr IVPB Q8HR [facility] Rx#:[id number] Midazolam HCl 50 mg In 77.734 33.3 Sodium Chloride 0.9% 40 ml @ 1 MG/HR 1 mls/hr IV .Q24H [facility] Rx#:[id number] Morphine Sulfate (100 mg/ 91.12 2 ml) 100 mg In Sodium Chloride 0.9% 100 ml @ 2 MG/HR 2.04 mls/hr IV . Q24H [facility] Rx#:[id number] propofoL 1,000 mg In 332.051 59.456 130.810 Empty Bag 1 bag @ Titrate IV .Q0M [facility] Rx#: [id number] Tube Feeding 550 600 50 Other 300 300 Output: Chest Tube Drainage 440 160 Chest Tube Left Upper 440 160 Lateral Chest Urine 620 290 25 Other: Voiding Method Indwelling Catheter Indwelling Catheter # Bowel Movements 1 3 ABP, PAP, CO, CI - Last Documented Arterial Blood Pressure 111/102 - Labs CBC & Chem 7: 03/02/20 04:16 03/02/20 09:33 Labs: Abnormal Lab Results - Last 24 Hours (Table) 03/01/20 03/02/20 03/02/20 Range/Units 18:23 00:03 04:16 WBC 39.0 H (3.8-10.6) k/uL RBC 2.85 L (4.30-5.90) m/uL Hgb 7.8 L (13.0-17.5) gm/dL Hct 27.5 L (39.0-53.0) % MCHC 28.6 L (31.0-37.0) g/dL RDW 16.3 H (11.5-15.5) % Plt Count 497 H (150-450) k/uL Neutrophils # (Manual) 33.10 H (1.3-7.7) k/uL Monocytes # (Manual) 2.34 H (0-1.0) k/uL Eosinophils # (Manual) 0.78 H (0-0.7) k/uL Nucleated RBCs 13 H (0-0) /100 WBC ABG pO2 (83-108) mmHg ABG O2 Saturation (94-97) % Chloride (98-107) mmol/L Carbon Dioxide (22-30) mmol/L BUN (9-20) mg/dL Creatinine (0.66-1.25) mg/dL Glucose (74-99) mg/dL POC Glucose (mg/dL) 132 H 155 H (75-99) mg/dL Calcium (8.4-10.2) mg/dL CSF RBC (0-10) u/L CSF Glucose (40-70) mg/dL C. difficile (EIA) Intrp (Negative) 03/02/20 03/02/20 03/02/20 Range/Units 04:16 04:27 06:14 WBC (3.8-10.6) k/uL RBC (4.30-5.90) m/uL Hgb (13.0-17.5) gm/dL Hct (39.0-53.0) % MCHC (31.0-37.0) g/dL RDW (11.5-15.5) % Plt Count (150-450) k/uL Neutrophils # (Manual) (1.3-7.7) k/uL Monocytes # (Manual) (0-1.0) k/uL Eosinophils # (Manual) (0-0.7) k/uL Nucleated RBCs (0-0) /100 WBC ABG pO2 62 L (83-108) mmHg ABG O2 Saturation 90.1 L (94-97) % Chloride 109 H (98-107) mmol/L Carbon Dioxide 21 L (22-30) mmol/L BUN 50 H (9-20) mg/dL Creatinine 1.67 H (0.66-1.25) mg/dL Glucose 117 H (74-99) mg/dL POC Glucose (mg/dL) 138 H (75-99) mg/dL Calcium 7.8 L (8.4-10.2) mg/dL CSF RBC (0-10) u/L CSF Glucose (40-70) mg/dL C. difficile (EIA) Intrp (Negative) 03/02/20 03/02/20 03/02/20 Range/Units 08:17 08:30 09:33 WBC (3.8-10.6) k/uL RBC (4.30-5.90) m/uL Hgb (13.0-17.5) gm/dL Hct (39.0-53.0) % MCHC (31.0-37.0) g/dL RDW (11.5-15.5) % Plt Count (150-450) k/uL Neutrophils # (Manual) (1.3-7.7) k/uL Monocytes # (Manual) (0-1.0) k/uL Eosinophils # (Manual) (0-0.7) k/uL Nucleated RBCs (0-0) /100 WBC ABG pO2 (83-108) mmHg ABG O2 Saturation (94-97) % Chloride (98-107) mmol/L Carbon Dioxide (22-30) mmol/L BUN (9-20) mg/dL Creatinine (0.66-1.25) mg/dL Glucose 124 H 128 H (74-99) mg/dL POC Glucose (mg/dL) (75-99) mg/dL Calcium (8.4-10.2) mg/dL CSF RBC 17 H (0-10) u/L CSF Glucose 93 H (40-70) mg/dL C. difficile (EIA) Intrp (Negative) 03/02/20 03/02/20 Range/Units 11:30 12:36 WBC (3.8-10.6) k/uL RBC (4.30-5.90) m/uL Hgb (13.0-17.5) gm/dL Hct (39.0-53.0) % MCHC (31.0-37.0) g/dL RDW (11.5-15.5) % Plt Count (150-450) k/uL Neutrophils # (Manual) (1.3-7.7) k/uL Monocytes # (Manual) (0-1.0) k/uL Eosinophils # (Manual) (0-0.7) k/uL Nucleated RBCs (0-0) /100 WBC ABG pO2 (83-108) mmHg ABG O2 Saturation (94-97) % Chloride (98-107) mmol/L Carbon Dioxide (22-30) mmol/L BUN (9-20) mg/dL Creatinine (0.66-1.25) mg/dL Glucose (74-99) mg/dL POC Glucose (mg/dL) 156 H (75-99) mg/dL Calcium (8.4-10.2) mg/dL CSF RBC (0-10) u/L CSF Glucose (40-70) mg/dL C. difficile (EIA) Intrp Positive A (Negative) Microbiology - Last 24 Hours (Table) 03/02/20 08:30 CSF Gram Stain - Preliminary Cerebral Spinal Fluid 03/01/20 09:10 Urine Culture - Final Urine,Catheterized 03/01/20 09:10 Blood Culture - Preliminary Blood No Growth after 24 hours 03/01/20 09:10 Gram Stain - Preliminary Pleural Fluid Body Fluid Culture - Preliminary 02/29/20 11:00 Gram Stain - Final Bronchial Washings - Right Bronchial Washings Culture - Final
[2020-03-02] MEDS ORDERED: VANCOMYCIN TROUGH DUE 1 EACH MISC MISCELLANE ONE (16:00)
[2020-03-02] MEDS: DILTIAZEM ORAL 60 MG TAB PO SCH ×2 (16:23→21:31)
[2020-03-02] MEDS: ANIDULAFUNGIN 100 MG in SODIUM CHLORIDE 0.9% 100 ML IVPB SCH (16:29)
[2020-03-02] MEDS: MORPHINE SULFATE 2 MG/ML SYRINGE IVP PRN ×2 (16:38→23:15)
--- NOTE | 2020-03-02 17:51 | P.PN ---
Subjective Progress Note Date: 03/02/20 The patient was seen at bedside and he remained to be on a ventilator and sedation. He is currently on Versed 2 mg an hour, propofol 30 mics per kilogram per minute and morphine 2 mg an hour. There is no seizure-like activity noted per ICU team. His leukocytosis is trending up. He is on IV Cardizem for the A. fib. Objective - Vital Signs Vital signs: Vital Signs Temp 98.7 F 03/02/20 04:00 Pulse 106 H 03/02/20 15:50 Resp 23 03/02/20 06:00 BP 114/61 03/02/20 06:00 Pulse Ox 96 03/02/20 06:00 Intake & Output 03/01/20 03/02/20 03/02/20 18:59 06:59 18:59 Intake Total 3163.785 2893.456 430.230 Output Total 1060 450 25 Balance 2103.785 2443.456 405.230 Weight 98.4 kg 98.4 kg Intake: IV 354 334 Sodium Chloride 0.9% 1, 20 000 ml @ 20 mls/hr IV . Q24H [facility] Rx#:[id number] Vancomycin 1,750 mg In 334 334 Sodium Chloride 0.9% 500 ml 500 ml @ 167 mls/hr IVPB Q12H [facility] Rx#: [id number] Intake, IV Titration 2048.202 0014.456 380.230 Amount Anidulafungin 100 mg In 200 Sodium Chloride 0.9% 100 ml @ 84 mls/hr IVPB DAILY @1700 [facility] Rx#:[id number] Dextrose 5% in Water 1, 1125 1500 125 000 ml @ 125 mls/hr IV . Q8H [facility] Rx#:[id number] Diltiazem 125 mg In 125 Sodium Chloride 0.9% 100 ml @ Per Protocol IV .Q0M [facility] Rx#:[id number] Meropenem 1 gm In Sodium 100 100 Chloride 0.9% 100 ml @ 33 .3 mls/hr IVPB Q8HR [facility] Rx#:[id number] Midazolam HCl 50 mg In 77.734 33.3 Sodium Chloride 0.9% 40 ml @ 1 MG/HR 1 mls/hr IV .Q24H [facility] Rx#:[id number] Morphine Sulfate (100 mg/ 91.12 2 ml) 100 mg In Sodium Chloride 0.9% 100 ml @ 2 MG/HR 2.04 mls/hr IV . Q24H [facility] Rx#:[id number] propofoL 1,000 mg In 332.051 59.456 130.810 Empty Bag 1 bag @ Titrate IV .Q0M [facility] Rx#: [id number] Tube Feeding 550 600 50 Other 300 300 Output: Chest Tube Drainage 440 160 Chest Tube Left Upper 440 160 Lateral Chest Urine 620 290 25 Other: Voiding Method Indwelling Catheter Indwelling Catheter # Bowel Movements 1 3 ABP, PAP, CO, CI - Last Documented Arterial Blood Pressure 111/102 - Exam GENERAL: The patient is lying, on ventilator and on Propofol drip, Versed and Morphine drip. HENT: No neck rigidity noticeable. Negative Kernig sign or Brudzinksi sign. Normocephalic atraumatic otherwise. CHEST: The heart rate is irregular rate rhythm. No murmurs to auscultation. LUNG: Clear to auscultation bilaterally. Not labored breathing. ABDOMEN/GI: Bowel sounds present in all 4 quadrants. Abdomen not distended. NEUROLOGICAL: Limited because of sedation. Higher mental function: Pupils are 2mm bilaterally and sluggishly reactive to light. Not following commands. Cranial nerves: The pupils are 3 minutes bilaterally and reactive to light. Primary gaze is midline. No facial weakness noted. Motor: No spontaneous movement. Could not assess patient strength because of condition. Cerebellum: Unable to assess Sensation: Unable to assess Reflexes (right/left): Brisk reflexes throughout. Plantars are downgoing bilaterally. - Labs CBC & Chem 7: 03/02/20 04:16 03/02/20 09:33 Labs: Abnormal Lab Results - Last 24 Hours (Table) 03/01/20 03/02/20 03/02/20 Range/Units 18:23 00:03 04:16 WBC 39.0 H (3.8-10.6) k/uL RBC 2.85 L (4.30-5.90) m/uL Hgb 7.8 L (13.0-17.5) gm/dL Hct 27.5 L (39.0-53.0) % MCHC 28.6 L (31.0-37.0) g/dL RDW 16.3 H (11.5-15.5) % Plt Count 497 H (150-450) k/uL Neutrophils # (Manual) 33.10 H (1.3-7.7) k/uL Monocytes # (Manual) 2.34 H (0-1.0) k/uL Eosinophils # (Manual) 0.78 H (0-0.7) k/uL Nucleated RBCs 13 H (0-0) /100 WBC ABG pO2 (83-108) mmHg ABG O2 Saturation (94-97) % Chloride (98-107) mmol/L Carbon Dioxide (22-30) mmol/L BUN (9-20) mg/dL Creatinine (0.66-1.25) mg/dL Glucose (74-99) mg/dL POC Glucose (mg/dL) 132 H 155 H (75-99) mg/dL Calcium (8.4-10.2) mg/dL CSF RBC (0-10) u/L CSF Glucose (40-70) mg/dL C. difficile (EIA) Intrp (Negative) 03/02/20 03/02/20 03/02/20 Range/Units 04:16 04:27 06:14 WBC (3.8-10.6) k/uL RBC (4.30-5.90) m/uL Hgb (13.0-17.5) gm/dL Hct (39.0-53.0) % MCHC (31.0-37.0) g/dL RDW (11.5-15.5) % Plt Count (150-450) k/uL Neutrophils # (Manual) (1.3-7.7) k/uL Monocytes # (Manual) (0-1.0) k/uL Eosinophils # (Manual) (0-0.7) k/uL Nucleated RBCs (0-0) /100 WBC ABG pO2 62 L (83-108) mmHg ABG O2 Saturation 90.1 L (94-97) % Chloride 109 H (98-107) mmol/L Carbon Dioxide 21 L (22-30) mmol/L BUN 50 H (9-20) mg/dL Creatinine 1.67 H (0.66-1.25) mg/dL Glucose 117 H (74-99) mg/dL POC Glucose (mg/dL) 138 H (75-99) mg/dL Calcium 7.8 L (8.4-10.2) mg/dL CSF RBC (0-10) u/L CSF Glucose (40-70) mg/dL C. difficile (EIA) Intrp (Negative) 03/02/20 03/02/20 03/02/20 Range/Units 08:17 08:30 09:33 WBC (3.8-10.6) k/uL RBC (4.30-5.90) m/uL Hgb (13.0-17.5) gm/dL Hct (39.0-53.0) % MCHC (31.0-37.0) g/dL RDW (11.5-15.5) % Plt Count (150-450) k/uL Neutrophils # (Manual) (1.3-7.7) k/uL Monocytes # (Manual) (0-1.0) k/uL Eosinophils # (Manual) (0-0.7) k/uL Nucleated RBCs (0-0) /100 WBC ABG pO2 (83-108) mmHg ABG O2 Saturation (94-97) % Chloride (98-107) mmol/L Carbon Dioxide (22-30) mmol/L BUN (9-20) mg/dL Creatinine (0.66-1.25) mg/dL Glucose 124 H 128 H (74-99) mg/dL POC Glucose (mg/dL) (75-99) mg/dL Calcium (8.4-10.2) mg/dL CSF RBC 17 H (0-10) u/L CSF Glucose 93 H (40-70) mg/dL C. difficile (EIA) Intrp (Negative) 03/02/20 03/02/20 Range/Units 11:30 12:36 WBC (3.8-10.6) k/uL RBC (4.30-5.90) m/uL Hgb (13.0-17.5) gm/dL Hct (39.0-53.0) % MCHC (31.0-37.0) g/dL RDW (11.5-15.5) % Plt Count (150-450) k/uL Neutrophils # (Manual) (1.3-7.7) k/uL Monocytes # (Manual) (0-1.0) k/uL Eosinophils # (Manual) (0-0.7) k/uL Nucleated RBCs (0-0) /100 WBC ABG pO2 (83-108) mmHg ABG O2 Saturation (94-97) % Chloride (98-107) mmol/L Carbon Dioxide (22-30) mmol/L BUN (9-20) mg/dL Creatinine (0.66-1.25) mg/dL Glucose (74-99) mg/dL POC Glucose (mg/dL) 156 H (75-99) mg/dL Calcium (8.4-10.2) mg/dL CSF RBC (0-10) u/L CSF Glucose (40-70) mg/dL C. difficile (EIA) Intrp Positive A (Negative) Microbiology - Last 24 Hours (Table) 03/02/20 08:30 CSF Gram Stain - Preliminary Cerebral Spinal Fluid 03/01/20 09:10 Urine Culture - Final Urine,Catheterized 03/01/20 09:10 Blood Culture - Preliminary Blood No Growth after 24 hours 03/01/20 09:10 Gram Stain - Preliminary Pleural Fluid Body Fluid Culture - Preliminary 02/29/20 11:00 Gram Stain - Final Bronchial Washings - Right Bronchial Washings Culture - Final Assessment and Plan Assessment: This is a 70-year-old gentleman with medical history of Afib, coronary artery disease status post CABG that presented to the emergency department on 02/17/2020 who fell off from a ladder and was brought in the emergency department and and was found to have left rib fractures from the third to the seventh, left-sided pneumothorax and splenic injury. Patient has left-sided chest tube. 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 ICU team held the sedation but unsuccessful since patient gets agitated. Neurology team is consulted because of his altered mental status. Encephalopathy likely due to multifactorial (pneumonia, C.Diff, pneuomothorax, worsening of LFT's, respiratory status) as well as medication effect (on sedation). Leukocytosis with pyrexia likely due to underlying infection C. Diff positive Acute ventilatory dependent respiratory failure s/p traheostomy Fall with multiple injuries including splenic injury and multiple rib fracture) Left rib fracture from the third to seventh fall off ladder. Left pneumothorax status post chest tube Splenic injury from a fall status post splenectomy Atrial fibrillation Plan: routine EEG: There are moderate to severe encephalopathy of unspecified etiology. There is no focal slowing, interictal activity or seizure activity seen. Repeat CT of the head (02/27/20): No acute intracranial hemorrhage, midline shift or mass effect. There is new partial opacification of the bilateral mastoid air cells not seen on 02/17/2020 comparison. Clinically correlate for possibility of mastoiditis I did review reviewed the CT of the head and I think the patient does have mastoiditis bilaterally and that was not seen on previous CT of the head that. CSF study (03/02/20): Clear, colorless, red blood cell was 17, nucleus else is 1, glucose of 93 (serum glucose 124), protein is 50. I note the patient has been on ceftriaxone and vancomycin for at least 4 days and that could hampered the CSF result that it's unlikely the patient has meningeal encephalitis. He has a C. diff that is positive and notes reported on 03/02/[address] of the brain shows that he has the mastoiditis which was not seen on the previous CT of the head. We'll defer the management of underlying infection to the ID team. He's currently on cefepime 2 g every 12 hours as well as he is on vancomycin. Ammonia level is 38-->32. Vitamin B12 is 1496. Folate is 9.6. TSh is 3.370. AST on presentation 55-->144. A LTM presentation is 33--->80 Placed the patient on Thiamine 100 mg daily The plan was discussed with the ICU attending Alhaji Bartlett M.D. Neuro-hospitalist Time with Patient: Greater than 30
[2020-03-02 17:59] LABS: Glucose,Whole Blood 142 mg/dL (75-99)
[2020-03-02] MEDS: VANCOMYCIN ORAL SOLUTION 250 MG/5 ML BOTTLE PO SCH ×2 (17:59→23:35)
--- NOTE | 2020-03-02 18:09 | P.PN ---
Subjective 69-year-old male was cleaning gutters fell from skin feet ladder was brought into emergency department found to have several left-sided fractures left-sided pneumothorax with a left-sided chest tube presently patient is presently intubated patient has multiple left-sided fractures from third to seventh rib patient also had a splenectomy for splenic injury. Patient is presently sedated with propofol and also morphine drip patient is presently on ventilatory support blood gases showed normal pH pCO2 and pO2 are within normal limits as well pat ient is presently onZosyn patient had lactic acidosis secondary tolactated Ringer's. Patient is hyperchloremic because of which probably will start him on half-normal saline. 02/19/2020 Patient is expected today and shortly after that patient didn't tolerate that and patient ended up undergoing an atrial fibrillation patient was started on amiodarone patient was subsequently reintubated. Patient is bit hyponatremic because of extensive switching the IV fluids to normal saline instead of half- normal saline. Patient is also getting amiodarone. D5 water. Patient is not requiring any pressors at this time. Please refer to intensive is documentation for further details of ventilator settings. 02/20/2020 Patient developed ongoing trial patient is having sedation vacation patient heart rate is better controlled patient overall clinical condition is bit better today 02/21/2020 Patient still in the ICU, he is intubated and sedated. Chest tube is in place and it hasn't output about 325 in 24 hours, propofol was switched to Paradox by critical care team. Pulmonary/critical care troponin measuring the event, sugar was low but most likely this is a false reading because patient is edematous. Surgical wound in the middle of the abdomen it looks clean and dry and closed. Patient is getting IV morphine. Creatinine and electrolytes are normal. Echocardiogram showing ejection fraction of 55-60% with moderate to severe mitral regurgitation His WBCs 17.3 K. Liver enzymes are trending down 02/22/2020 Patient the ICU, he could not tolerate the current sedative and he had to be placed back on the propofol, he got agitated overnight and he needed restraints. These making about 1 5200 mL of chest tube drainage every 12 hours Lasix is added. Also he had low-grade temperature and mild increase in WBC, he still on Zosyn and IV on the case. Cultures are negative so far 02/23/2020 Patient remains in the ICU, intubated and sedated on a propofol, he looks calm. Patient undergoing sedation holiday and pulmonary team managing his vent He still has low-grade fever 99.7, leukocytosis or interrupted 22K. BMP is unremarkable. Cultures are negative so far, infectious disease and pulmonary/critical care team on the case. Chest x-ray showing unchanged radiographic appearance of tubes and lines, mildly improved aeration of bilateral lung bases with persistent small bilateral pleural effusions and bibasilar air space opacity and multiple left-sided displaced rib fractures Currently he is on Zosyn 02/24/2020 Patient still intubated and sedated, he undergoing sedation holiday and he wakes up then to be breathing trial Patient is improving on Zosyn, no fever however culture are negative. Patient is still getting intermittent feeding. Chest tube still on the left side with about 150-200 mL of discharge every 12 hour period , surgery team on the case patient may need a PEG tube and tracheostomy if he fails a voiding trial 02/24 Patient remains in the ICU intubated and sedated, despite being on Precedex. Today he developed A. fib with RVR, he has history of A. fib. before, he Is currently not on anticoagulation other than DVT prophylaxis with Lovenox due to his hematoma. Patient was started on amiodarone drip, his rate is controlled, is controlled. Computed tomography scan of the abdomen is requested to assess his hematoma. He still has fever at 100.1 Hemoglobin is 8.8, which is stable compared to yesterday. PH normal 7.4 with normal pCO2 at 43 and low pO2 at 68, BMP is unremarkable and sugar is controlled. Surgical team were consulted for possible PEG and tracheostomy Prognosis remains very guarded. 02/26/20 Patient still on ventilation, he got tracheostomy yesterday and hysterectomy that well. Sedation is off however patient is restless and agitated, however patient does not follow, He developed another atrial fibrillation with rapid rate and he was started on amiodarone drip at 0.5. Cardizem may be added as well. Cardiology of the case Surgery team are following the patient for possible PEG placement. Possibly today. Patient remains on Zosyn, amiodarone, which can be switched to oral per Clinical Applications Manager and Cardizem as needed 02/28/20 Patient remains in the ICU, his status post tracheostomy, PEG tube placement was postponed f by surgery team. He still has PICC line and left-sided chest tube with more than 100 mL of fluid draining but it is serous. Antibiotics has changed from Zosyn to vancomycin and cefepime, catheter tip culture and sensitivity was sent. CT of the abdomen and pelvis showing increased left basilar, CT. Neurologist neurologist evaluated the patient and EEG is negative for epileptiform activity but showing severe encephalopathy WBC is 19 KI patient has no fever today Neurologist recommended MRI of the brain and cervical spine when she is more stable 02/29/20 Patient remains intubated and sedated on a propofol, tracheostomy in this place, also left-sided chest tube with service discharge only. Patient underwent bronchoscopy and bronchoalveolar lavage of the right upper lobe, and follow-up the results Patient is hemodynamically stable WBC still 19 K and sodium 148. Patient remains on antibiotics per infectious disease recommendation. And she was followed also by pulmonary/critical care team, surgery team. 03/01/20 Patient remains intubated and sedated, any target dose of sedation actually. He still have PICC line, tracheostomy, left chest tube service discharge and has Nolan catheter PEG tube placement was postponed currently. Patient showing low-grade fever today. And WBC went up to 20 9K. Creatinine is normal and sodium 148. He is still on mechanical ventilation and pulmonary/ critical care team following the case. Currently his on 10 PEEP and FiO2 of 60%. EEG showing no epileptiform activity and moderate to severe encephalopathy. Neurology service on the case and the recommended to proceed with lumbar puncture. Also follow-up. Bronchoscopy lavage results Possible discontinue the chest tube for pulmonary service. Patient is followed by several consultants including pulmonary, cardiology, infectious disease, neurology and surgery Patient remains intubated and sedated on a propofol, no sedation holiday oriented trial today Patient had a lumbar puncture today and results are likely showing meningitis or encephalitis per neurology was on the case. Patient continued to have left-sided chest tube was satisfactory draining, tracheostomy in place, he has to proceeding, PEG placement is postponed for now. he was started on Lasix drip, also I continued on Cardizem drip. Infectious disease on the case and added oral vancomycin today for C. diff colitis. His IV vancomycin and cefepime were stopped per infectious disease recommendation. Prognosis remains guarded Patient is been followed by several consultants including pulmonary/critical care team, neurology, infectious disease, cardiology and surgery teams Review of systems: N/ Active Medications Generic Name Dose Route Start Last Admin Trade Name Freq PRN Reason Stop Dose Admin Acetaminophen 650 mg 02/20/20 22:00 03/01/20 13:25 Tylenol Tab PO 650 mg Q6HR PRN Administration Fever and/ or Pain Albuterol/Ipratropium 3 ml 03/02/20 12:00 03/02/20 15:35 Duoneb 0.5 Mg-3 Mg/3 Ml Soln INHALATION 3 ml RT-Q4H BETTINA Administration Amiodarone HCl 200 mg 02/27/20 09:00 03/02/20 10:20 Cordarone PO 200 mg BID BETTINA Administration Atorvastatin Calcium 20 mg 02/18/20 21:00 03/01/20 21:15 Lipitor PO 20 mg HS BETTINA Administration Chlorhexidine Gluconate 15 ml 02/18/20 12:00 03/02/20 10:18 Peridex MUCOUS MEM 15 ml BID BETTINA Administration Diltiazem HCl 60 mg 03/02/20 16:00 03/02/20 16:23 Cardizem Oral PO 60 mg TID BETTINA Administration Docusate Sodium 100 mg 02/26/20 09:00 03/02/20 10:21 Colace Oral Soln PO Not Given BID BETTINA Enoxaparin Sodium 40 mg 03/01/20 13:56 03/02/20 09:04 Lovenox SQ Not Given DAILY BETTINA Enoxaparin Sodium 40 mg 03/02/20 21:00 Lovenox SQ 03/02/20 21:01 ONCE ONE Finasteride 5 mg 02/18/20 21:00 03/01/20 21:16 Proscar PO 5 mg HS BETTINA Administration Propofol 1,000 mg/ IV Solution 100 mls @ 0 mls/hr 02/17/20 22:45 03/02/20 17:25 IV 20 mcg/kg/min .Q0M BETTINA 11.808 mls/hr Titration Protocol Titrate Sodium Chloride 1,000 mls @ 20 mls/hr 02/19/20 11:45 03/02/20 10:24 Saline 0.9% IV Not Given .Q24H BETTINA Anidulafungin 100 mg/ Sodium 100 mls @ 84 mls/hr 03/01/20 17:00 03/02/20 16:29 Chloride IVPB 84 mls/hr DAILY@1700 BETTINA Administration Dextrose/Water 1,000 mls @ 125 mls/hr 03/01/20 09:00 03/02/20 16:23 Dextrose 5%-Water Iv Soln IV 125 mls/hr .Q8H BETTINA Administration Furosemide 100 mg/ Sodium 100 mls @ 15 mls/hr 03/02/20 14:45 03/02/20 15:09 Chloride IV 15 mg/hr .Q6H40M BETTINA 15 mls/hr Administration 15 MG/HR Insulin Aspart 0 unit 02/18/20 13:00 03/02/20 12:43 Novolog SQ 1 unit Q6HR BETTINA Administration Protocol Miscellaneous Information 1 each 02/18/20 05:19 Magnesium Per Protocol MISCELLANE DAILY PRN Per Protocol Protocol Miscellaneous Information 1 each 02/19/20 05:38 Potassium Per Protocol MISCELLANE DAILY PRN Per Protocol Protocol Morphine Sulfate 2 mg 03/02/20 11:48 03/02/20 16:38 Morphine Sulfate (Inj) IVP 2 mg Q2H PRN Administration Pain/Discomfort Morphine Sulfate 4 mg 03/02/20 11:48 Morphine Sulfate (Inj) IVP Q2H PRN Pain Naloxone HCl 0.2 mg 02/17/20 19:37 Narcan IV Q2M PRN Opioid Reversal Quetiapine Fumarate 50 mg 02/23/20 21:00 03/02/20 10:19 Seroquel PO 50 mg BID BETTINA Administration Sodium Chloride 10 ml 02/26/20 15:12 Saline Flush IV Q4HR PRN PICC Line Sodium Chloride 10 ml 03/04/20 09:00 Saline Flush IV WEEKLY BETTINA Sodium Chloride 20 ml 02/26/20 15:12 Saline Flush IV Q4HR PRN PICC Line Tamsulosin HCl 0.8 mg 02/18/20 21:00 03/01/20 21:15 Flomax PO 0.8 mg HS BETTINA Administration Thiamine HCl 100 mg 02/27/20 10:45 03/02/20 10:20 Vitamin B-1 PO 100 mg DAILY BETTINA Administration Vancomycin HCl 250 mg 03/02/20 18:00 Vancomycin Oral Solution PO Q6HR [facility] Objective - Vital Signs Vital signs: Vital Signs Temp 98.7 F 03/02/20 04:00 Pulse 106 H 03/02/20 15:50 Resp 23 03/02/20 06:00 BP 114/61 03/02/20 06:00 Pulse Ox 96 03/02/20 06:00 Intake & Output 03/01/20 03/02/20 03/02/20 18:59 06:59 18:59 Intake Total 3163.785 2893.456 430.230 Output Total 1060 450 25 Balance 2103.785 2443.456 405.230 Weight 98.4 kg 98.4 kg Intake: IV 354 334 Sodium Chloride 0.9% 1, 20 000 ml @ 20 mls/hr IV . Q24H BETTINA Rx#:[id number] Vancomycin 1,750 mg In 334 334 Sodium Chloride 0.9% 500 ml 500 ml @ 167 mls/hr IVPB Q12H BETTINA Rx#: [id number] Intake, IV Titration 5162.516 0245.456 380.230 Amount Anidulafungin 100 mg In 200 Sodium Chloride 0.9% 100 ml @ 84 mls/hr IVPB DAILY @1700 BETTINA Rx#:[id number] Dextrose 5% in Water 1, 1125 1500 125 000 ml @ 125 mls/hr IV . Q8H BETTINA Rx#:[id number] Diltiazem 125 mg In 125 Sodium Chloride 0.9% 100 ml @ Per Protocol IV .Q0M BETTINA Rx#:[id number] Meropenem 1 gm In Sodium 100 100 Chloride 0.9% 100 ml @ 33 .3 mls/hr IVPB Q8HR BETTINA Rx#:[id number] Midazolam HCl 50 mg In 77.734 33.3 Sodium Chloride 0.9% 40 ml @ 1 MG/HR 1 mls/hr IV .Q24H BETTINA Rx#:[id number] Morphine Sulfate (100 mg/ 91.12 2 ml) 100 mg In Sodium Chloride 0.9% 100 ml @ 2 MG/HR 2.04 mls/hr IV . Q24H BETTINA Rx#:[id number] propofoL 1,000 mg In 332.051 59.456 130.810 Empty Bag 1 bag @ Titrate IV .Q0M BETTINA Rx#: [id number] Tube Feeding 550 600 50 Other 300 300 Output: Chest Tube Drainage 440 160 Chest Tube Left Upper 440 160 Lateral Chest Urine 620 290 25 Other: Voiding Method Indwelling Catheter Indwelling Catheter # Bowel Movements 1 3 ABP, PAP, CO, CI - Last Documented Arterial Blood Pressure 111/102 - Exam -GENERAL: The patient is intubated and sedated HEENT: Pupils are round and equally reacting to light. EOMI. No scleral icterus. No conjunctival pallor. Normocephalic, atraumatic. No pharyngeal erythema. No thyromegaly. CARDIOVASCULAR: S1 and S2 present. No murmurs, rubs, or gallops. -PULMONARY: Chest is clear to auscultation, no wheezing or crackles. Left-sided chest tube midline vertical surgical wound is clean and dry and closed -ABDOMEN: Soft, nontender, nondistended, normoactive bowel sounds. No palpable organomegaly. MUSCULOSKELETAL: No joint swelling or deformity. EXTREMITIES: No cyanosis, clubbing, or pedal edema. NEUROLOGICAL: Gross neurological examination did not reveal any focal deficits. SKIN: No rashes. no petechiae. - Labs CBC & Chem 7: 03/02/20 04:16 03/02/20 09:33 Labs: Abnormal Lab Results - Last 24 Hours (Table) 03/01/20 03/02/20 03/02/20 Range/Units 18:23 00:03 04:16 WBC 39.0 H (3.8-10.6) k/uL RBC 2.85 L (4.30-5.90) m/uL Hgb 7.8 L (13.0-17.5) gm/dL Hct 27.5 L (39.0-53.0) % MCHC 28.6 L (31.0-37.0) g/dL RDW 16.3 H (11.5-15.5) % Plt Count 497 H (150-450) k/uL Neutrophils # (Manual) 33.10 H (1.3-7.7) k/uL Monocytes # (Manual) 2.34 H (0-1.0) k/uL Eosinophils # (Manual) 0.78 H (0-0.7) k/uL Nucleated RBCs 13 H (0-0) /100 WBC ABG pO2 (83-108) mmHg ABG O2 Saturation (94-97) % Chloride (98-107) mmol/L Carbon Dioxide (22-30) mmol/L BUN (9-20) mg/dL Creatinine (0.66-1.25) mg/dL Glucose (74-99) mg/dL POC Glucose (mg/dL) 132 H 155 H (75-99) mg/dL Calcium (8.4-10.2) mg/dL CSF RBC (0-10) u/L CSF Glucose (40-70) mg/dL C. difficile (EIA) Intrp (Negative) 03/02/20 03/02/20 03/02/20 Range/Units 04:16 04:27 06:14 WBC (3.8-10.6) k/uL RBC (4.30-5.90) m/uL Hgb (13.0-17.5) gm/dL Hct (39.0-53.0) % MCHC (31.0-37.0) g/dL RDW (11.5-15.5) % Plt Count (150-450) k/uL Neutrophils # (Manual) (1.3-7.7) k/uL Monocytes # (Manual) (0-1.0) k/uL Eosinophils # (Manual) (0-0.7) k/uL Nucleated RBCs (0-0) /100 WBC ABG pO2 62 L (83-108) mmHg ABG O2 Saturation 90.1 L (94-97) % Chloride 109 H (98-107) mmol/L Carbon Dioxide 21 L (22-30) mmol/L BUN 50 H (9-20) mg/dL Creatinine 1.67 H (0.66-1.25) mg/dL Glucose 117 H (74-99) mg/dL POC Glucose (mg/dL) 138 H (75-99) mg/dL Calcium 7.8 L (8.4-10.2) mg/dL CSF RBC (0-10) u/L CSF Glucose (40-70) mg/dL C. difficile (EIA) Intrp (Negative) 03/02/20 03/02/20 03/02/20 Range/Units 08:17 08:30 09:33 WBC (3.8-10.6) k/uL RBC (4.30-5.90) m/uL Hgb (13.0-17.5) gm/dL Hct (39.0-53.0) % MCHC (31.0-37.0) g/dL RDW (11.5-15.5) % Plt Count (150-450) k/uL Neutrophils # (Manual) (1.3-7.7) k/uL Monocytes # (Manual) (0-1.0) k/uL Eosinophils # (Manual) (0-0.7) k/uL Nucleated RBCs (0-0) /100 WBC ABG pO2 (83-108) mmHg ABG O2 Saturation (94-97) % Chloride (98-107) mmol/L Carbon Dioxide (22-30) mmol/L BUN (9-20) mg/dL Creatinine (0.66-1.25) mg/dL Glucose 124 H 128 H (74-99) mg/dL POC Glucose (mg/dL) (75-99) mg/dL Calcium (8.4-10.2) mg/dL CSF RBC 17 H (0-10) u/L CSF Glucose 93 H (40-70) mg/dL C. difficile (EIA) Intrp (Negative) 03/02/20 03/02/20 Range/Units 11:30 12:36 WBC (3.8-10.6) k/uL RBC (4.30-5.90) m/uL Hgb (13.0-17.5) gm/dL Hct (39.0-53.0) % MCHC (31.0-37.0) g/dL RDW (11.5-15.5) % Plt Count (150-450) k/uL Neutrophils # (Manual) (1.3-7.7) k/uL Monocytes # (Manual) (0-1.0) k/uL Eosinophils # (Manual) (0-0.7) k/uL Nucleated RBCs (0-0) /100 WBC ABG pO2 (83-108) mmHg ABG O2 Saturation (94-97) % Chloride (98-107) mmol/L Carbon Dioxide (22-30) mmol/L BUN (9-20) mg/dL Creatinine (0.66-1.25) mg/dL Glucose (74-99) mg/dL POC Glucose (mg/dL) 156 H (75-99) mg/dL Calcium (8.4-10.2) mg/dL CSF RBC (0-10) u/L CSF Glucose (40-70) mg/dL C. difficile (EIA) Intrp Positive A (Negative) Microbiology - Last 24 Hours (Table) 03/02/20 08:30 CSF Gram Stain - Preliminary Cerebral Spinal Fluid 03/01/20 09:10 Urine Culture - Final Urine,Catheterized 03/01/20 09:10 Blood Culture - Preliminary Blood No Growth after 24 hours 03/01/20 09:10 Gram Stain - Preliminary Pleural Fluid Body Fluid Culture - Preliminary 02/29/20 11:00 Gram Stain - Final Bronchial Washings - Right Bronchial Washings Culture - Final Assessment and Plan Assessment: - Fall from ladder with trauma to chest and abdomen with traumatic hydro- pneumothorax , status post chest tube -Splenic injury status post splenectomy -Acute ventilatory dependent respiratory failure hypoxic secondary to polytrauma, pneumothorax and splenic injury, continue with the ventilatory support and wean off as tolerated. -A. fib with RVR -Positive C. diff tests suspicious for C. diff colitis, continue with oral vancomycin -left basilar opacity, stable -Traumatic left-sided rib fractures -hyponatremia: Secondary to half-normal saline was switched to normal saline -Hemorrhagic shock on admission which improved patient received 4 units of PRBC transfusion presently hemodynamically stable is not requiring any pressors -acute blood loss anemia from polytrauma pneumoperitoneum -history of carotid artery disease with previous bypass surgery -Hyperlipidemia -Benign prostatic hypertrophy
[2020-03-02] MEDS ORDERED: MEROPENEM 1 GM in SODIUM CHLORIDE 0.9% 100 ML IVPB SCH (21:00)
[2020-03-02] MEDS ORDERED: ENOXAPARIN 40 MG/0.4 ML SYRINGE SQ ONE (21:00)
[2020-03-02] MEDS: TAMSULOSIN 0.4 MG CAP.ER.24H PO SCH (21:22)
[2020-03-02] MEDS: ATORVASTATIN 20 MG TAB PO SCH (21:29)
[2020-03-02] MEDS: FINASTERIDE 5 MG TAB PO SCH (21:30)
[2020-03-02 23:33] LABS: Glucose,Whole Blood 131 mg/dL (75-99)
[2020-03-03] MEDS: IPRATROPIUM-ALBUTEROL 3 ML NEB INHALATION SCH ×7 (00:11→23:01)
[2020-03-03] MEDS: FUROSEMIDE 100 MG in SODIUM CHLORIDE 0.9% 90 ML IV SCH (03:16)
[2020-03-03] MEDS: MORPHINE SULFATE 2 MG/ML SYRINGE IVP PRN ×4 (05:06→23:34)
[2020-03-03 05:22] LABS: Albumin 2.2 g/dL (3.5-5.0); Calcium 7.2 mg/dL (8.4-10.2); Potassium 4.3 mmol/L (3.5-5.1); Total Bilirubin 2.1 mg/dL (0.2-1.3)
[2020-03-03 05:24] LABS: Anisocytosis Slight; HCT 26.7 % (39.0-53.0); HGB 7.9 gm/dL (13.0-17.5); Hypochromasia Marked; MCH 27.5 pg (25.0-35.0); MCHC 29.7 g/dL (31.0-37.0); MCV 92.4 fL (80.0-100.0); Mean Platelet Volume 12.4; Platelet Count 487 k/uL (150-450); Poikilocytosis Slight; RBC 2.89 m/uL (4.30-5.90); RDW 16.3 % (11.5-15.5)
[2020-03-03 05:28] LABS: ABG Base Excess -6.1 mmol/L; ABG HCO3 18 mmol/L (21-25); ABG Oxygen Saturation 98.8 % (94-97); ABG PCO2 29 mmHg (35-45); ABG PH 7.41 (7.35-7.45); ABG PO2 125 mmHg (83-108); ABG TCO2 19 mmol/L (19-24); Allen Test Performed? Yes
[2020-03-03 05:52] LABS: Glucose,Whole Blood 155 mg/dL (75-99)
[2020-03-03] MEDS: VANCOMYCIN ORAL SOLUTION 250 MG/5 ML BOTTLE PO SCH ×4 (05:56→23:35)
[2020-03-03] MEDS: INSULIN ASPART (NovoLOG) 100 UNIT/ML VIAL SQ SCH ×4 (05:56→23:35)
[2020-03-03] MEDS: DEXTROSE 5% IN WATER 1,000 ML IV SCH (06:40)
[2020-03-03 06:54] LABS: Band Neutrophils % 2 %; Eosinophils # (M) 1.11 k/uL (0-0.7); Lymphocytes # (M) 1.85 k/uL (1.0-4.8); Metamyelocytes # (M) 0.37 k/uL (0); Metamyelocytes % 1 %; Monocytes # (M) 2.21 k/uL (0-1.0); Myelocytes # (M) 0.37 k/uL (0); Myelocytes % 1 %; Neutrophils % (M) 84 %; Nucleated Red Blood Cells 20 /100 WBC (0-0); Total Cells Counted 200; WBC 36.9 k/uL (3.8-10.6)
[2020-03-03 06:55] LABS: Large Platelets Present
--- NOTE | 2020-03-03 08:19 | XR ---
EXAMINATION TYPE: XR chest 1V portable DATE OF EXAM: 03/03/2020 COMPARISON: 03/02/2020 HISTORY: Shortness of breath FINDINGS: There are bilateral pleural effusions with cardiomegaly and bibasilar infiltrate. There is a diffuse interstitial pattern. Tracheostomy tube and NG tube stable. Postsurgical changes are seen. Left-side d PICC line noted. Postoperative changes overlying the cervical spine. IMPRESSION: 1. Diffuse pleural-parenchymal changes are stable correlate for pulmonary edema, diffuse pneumonia or ARDS.
[2020-03-03] MEDS: DILTIAZEM ORAL 60 MG TAB PO SCH ×4 (08:51→21:37)
[2020-03-03] MEDS: DOCUSATE ORAL SOLN 100 MG/10 ML CUP PO SCH (08:51)
[2020-03-03] MEDS: CHLORHEXIDINE GLUCONATE 15 ML CUP MUCOUS MEM SCH ×2 (08:51→21:36)
[2020-03-03] MEDS: PANTOPRAZOLE 40 MG/10 ML VIAL IVP SCH (08:51)
[2020-03-03] MEDS: ENOXAPARIN 40 MG/0.4 ML SYRINGE SQ SCH (08:51)
[2020-03-03] MEDS: THIAMINE 100 MG TAB PO SCH (08:51)
[2020-03-03] MEDS: AMIODARONE 200 MG TAB PO SCH ×2 (08:51→21:36)
[2020-03-03] MEDS: QUEtiapine 50 MG TAB PO SCH ×2 (08:51→21:37)
--- NOTE | 2020-03-03 09:13 | P.NPCON ---
History of Present Illness - Reason for Consult acute renal failure - History of Present Illness reason for consultation: Acute kidney injury History of present illness: Patient is a 70-year-old male seen in renal consultation for acute kidney injury. Patient presented to the hospital on 02/17/2020 after he sustained a fall from about 15 feet height. He presented with chest pain and shortness of breath. There is also history of alcohol use daily prior to admission. Patient was noted to be hypotensive on admission.he was noted to have a large left-sided pneumothorax as well as multiple rib fractures and hematoma peritoneum and a ruptured spleen. He underwent left-sided chest tube placement and emergent splenectomy.he currently has a tracheostomy.he was noted to be hypernatremic and was started on D5 W at 125 mL an hour. Sodium level this morning was 135. He was also started on Lasix drip yesterday at 15 mL an hour.Baseline creatinine is near 1 and is up to 2.84 today. Blood pressure has been stable. He did receive 4 blood transfusions on admission but hemoglobin the last few days has been stable.cardiac echocardiogram revealed ejection fraction of 55-60% and moderate to severe mitral regurgitation. He is currently not on any vasopressors.he has tested positive for C. diff and is maintained on oral vancomycin.he is also maintained on tube feedings.urine output has been 30-40 mL an hour.he also wanted A. fib with RVR this admission and heart rate is fairly stable at this time. He is maintained on oral amiodarone as well as Cardizem. Vital signs are stable. General: The patient appeared well nourished and normally developed. tracheostomy noted. HEENT: Head exam is unremarkable. Neck is without jugular venous distension. NG tube noted. LUNGS: Breath sounds decreased. HEART: Rate and Rhythm are regular. ABDOMEN: soft, nondistended. EXTREMITITES: 1+ edema. Past Medical History Past Medical History: Coronary Artery Disease (CAD), Hyperlipidemia, Prostate Disorder Additional Past Medical History / Comment(s): Chronic back and neck pain, cervical fusion 2009 History of Any Multi-Drug Resistant Organisms: None Reported Past Surgical History: Coronary Bypass/CABG Additional Past Surgical History / Comment(s): CABG and tripple bypass, hernia inguinal , cervical spine fusion Past Anesthesia/Blood Transfusion Reactions: No Reported Reaction Past Psychological History: Anxiety Smoking Status: Former smoker Past Alcohol Use History: None Reported Past Drug Use History: None Reported, Marijuana Medications and Allergies Home Medications Medication Instructions Recorded Confirmed Type Finasteride [Proscar] 5 mg PO HS 02/17/20 02/17/20 History Morphine Sulfate ER [Ms Contin] 15 mg PO Q12HR 02/17/20 02/17/20 History Rosuvastatin Calcium [Crestor] 10 mg PO HS 02/17/20 02/17/20 History Tadalafil [Cialis] 20 mg PO Q36H PRN 02/17/20 02/17/20 History Tamsulosin HCl [Flomax] 0.8 mg PO HS 02/17/20 02/17/20 History atenoloL [Atenolol] 25 mg PO HS 02/17/20 02/17/20 History traZODone HCL [Desyrel] 50 mg PO HS PRN 02/17/20 02/17/20 History Allergies Allergy/AdvReac Type Severity Reaction Status Date / Time fentanyl Allergy Unknown Verified 02/17/20 18:35 nitroglycerin AdvReac Unknown Verified 02/17/20 18:35 [From Nitroglyn] Physical Exam Vitals: Vital Signs Temp Pulse Resp BP Pulse Ox 03/03/20 07:58 106 H 03/03/20 07:46 95 03/03/20 07:00 113 H 28 H 130/72 97 03/03/20 06:00 98 30 H 141/62 96 03/03/20 05:00 105 H 35 H 135/67 96 03/03/20 04:00 98.7 F 109 H 29 H 133/61 96 03/03/20 03:59 103 H 03/03/20 03:39 111 H 03/03/20 03:00 98 29 H 140/58 96 03/03/20 02:00 103 H 29 H 134/70 95 03/03/20 01:00 117 H 33 H 132/66 94 L 03/03/20 00:00 98.3 F 95 33 H 128/58 96 03/02/20 23:00 99 30 H 134/62 95 03/02/20 22:00 91 26 H 131/65 95 03/02/20 21:00 99 25 H 137/59 97 03/02/20 20:21 103 H 03/02/20 20:11 98 03/02/20 20:00 98.9 F 92 26 H 120/64 97 03/02/20 19:00 92 26 H 132/63 98 03/02/20 18:00 100 26 H 136/73 96 03/02/20 17:00 91 29 H 137/71 98 03/02/20 16:00 98.6 F 103 H 24 115/80 97 03/02/20 15:50 106 H 03/02/20 15:38 102 H 03/02/20 15:00 94 28 H 136/79 95 03/02/20 14:00 96 33 H 120/62 95 03/02/20 13:00 105 H 28 H 138/66 95 03/02/20 12:00 98.7 F 101 H 27 H 134/73 96 03/02/20 11:42 95 03/02/20 11:26 92 03/02/20 11:00 107 H 24 112/58 95 03/02/20 10:00 85 26 H 109/65 97 03/02/20 09:00 87 22 111/62 92 L Intake and Output 03/02/20 03/03/20 03/03/20 22:59 06:59 14:59 Intake Total 5505.305 3646.955 183.284 Output Total 180 250 35 Balance 1360.546 4324.955 148.284 Intake: IV 1215 995 140 Anidulafungin 100 mg In 100 Sodium Chloride 0.9% 100 ml @ 84 mls/hr IVPB DAILY @1700 [facility] Rx#:[id number] Dextrose 5% in Water 1, 1000 875 125 000 ml @ 125 mls/hr IV . Q8H [facility] Rx#:[id number] Diltiazem 125 mg In 10 Sodium Chloride 0.9% 100 ml @ Per Protocol IV .Q0M [facility] Rx#:[id number] Furosemide 60 15 Furosemide 100 mg In 105 60 Sodium Chloride 0.9% 90 ml @ 15 MG/HR 15 mls/hr IV .Q6H40M [facility] Rx#: [id number] Intake, IV Titration 126.632 230.955 13.284 Amount Furosemide 100 mg In 82.75 99 Sodium Chloride 0.9% 90 ml @ 15 MG/HR 15 mls/hr IV .Q6H40M [facility] Rx#: [id number] propofoL 1,000 mg In 43.882 131.955 13.284 Empty Bag 1 bag @ Titrate IV .Q0M [facility] Rx#: [id number] Tube Feeding 210 240 30 Other 100 Output: Chest Tube Drainage 20 50 Chest Tube Left Upper 20 50 Lateral Chest Urine 160 200 35 Other: Voiding Method Indwelling Catheter Indwelling Catheter # Bowel Movements 1 1 Weight 100.7 kg Results - Lab Results Most recent lab results ABG pH 7.41 (7.35-7.45) 03/03/20 05:25 ABG pCO2 29 mmHg (35-45) L 03/03/20 05:25 ABG pO2 125 mmHg (83-108) H 03/03/20 05:25 ABG HCO3 18 mmol/L (21-25) L 03/03/20 05:25 ABG O2 Saturation 98.8 % (94-97) H 03/03/20 05:25 Calcium 7.2 mg/dL (8.4-10.2) L 03/03/20 04:47 Phosphorus 3.6 mg/dL (2.5-4.5) 02/18/20 04:15 Magnesium 2.1 mg/dL (1.6-2.3) 02/24/20 18:35 03/03/20 04:47 03/03/20 04:47 Assessment and Plan Plan: assessment: 1. Acute kidney injury secondary to ATN secondary to diuresis and hemodynamic instability. Creatinine 2.84 today. Baseline creatinine near 1. UA fairly benign. 2. hypernatremia secondary to lack of oral water intake. Maintained on D5 W. Resolved. 3. A. fib with RVR maintained on oral Cardizem and amiodarone. Stable. 4. Status post fall with pneumothorax, multiple rib fractures, hemoperitoneum and ruptured spleen status post emergent chest tube placement and splenectomy. 5. acute blood loss anemia status post blood transfusions this admission. Stable. 6. Metabolic acidosis secondary to acute kidney injury. 7. 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 plan: Discontinue Lasix drip. Discontinue D5W. Maintain tube feeding. Avoid nephrotoxins. add oral sodium bicarbonate. Continue to monitor renal function and urine output. Thank you for the consultation. I will continue to follow the patient with you during his hospital stay.
[2020-03-03] MEDS: SODIUM BICARBONATE TAB 650 MG TAB PO SCH ×3 (10:16→21:36)
[2020-03-03] MEDS: SODIUM CHLORIDE 0.9% 1,000 ML IV SCH (10:16)
--- NOTE | 2020-03-03 10:41 | PN ---
PROGRESS NOTE PULMONARY/CRITICAL CARE PROGRESS NOTE: DATE OF SERVICE: 03/03/2020 CRITICAL CARE TIME: 33 minutes This is a 70-year-old gentleman who was admitted way back on February 17, 2020. He apparently fell and sustained a number of injuries including possible flail chest, splenic rupture, hypovolemic shock, and multiple left rib fractures between ribs 3 through 7. On the same day of admission, he underwent splenectomy and intubation. Because of failure to wean from mechanical ventilation. The patient underwent a tracheostomy on February 24. He also had a bronchoscopy for mucus plugging on February 28. He has a left chest tube in place for pneumothorax. He remains on mechanical ventilator. His vent settings include the volume assist-control mode rate of 20, tidal volume 500, FiO2 60% to be dropped to 50%, PEEP of 10, blood gases show a pO2 of 125, pCO2 of 29, and pH of 7.41. These blood gases are consistent with hyperoxia and mixed acid-base disturbance including a respiratory alkalosis and metabolic acidosis. The patient remains on propofol at 15 mcg/kg/per minute, D5W at 125 mL an hour. Vital high-protein at 30 with a goal of 30 mL an hour, Lasix at 50 mg an hour. Today, we are going to add Protonix for GI prophylaxis, remove the left chest tube, ask Nephrology to see the patient, do a daily interruption of sedation, and also place him on PSV 10 CPAP of 5 for the spontaneous breathing trial. I have asked the nurses and respiratory therapist just to document how well he does. If he does poorly, he had to be placed back on the volume assist-control modality. Current vital signs are reviewed. Temperature is 98.9, heart rate is 115, respiratory rate 37, blood pressure 134/64 mean 87, saturations 95% on 50%. HEENT: Examination is grossly unremarkable. NECK: Supple, full range of motion. There is a midline tracheostomy tube. Neck otherwise supple. No adenopathy. CARDIOVASCULAR: Examination reveals tachycardia. Heart rate 122, S1, S2 normal. Heart sounds are distant. No murmur. LUNGS: Reveal diffuse coarse rhonchi. Breath sounds equal. ABDOMEN: Soft, bowel sounds are noted. EXTREMITIES: Intact. Minimal edema. SKIN: Without rash. NEUROLOGIC: Examination is difficult to assess. The patient is quite lethargic and sleepy despite being off his propofol. CURRENT LABORATORY DATA: Includes a white count 36.9, hemoglobin 7.9, hematocrit 26.7, platelet count 487,000, blood gases already been noted. Sodium 135, potassium 4.3, chloride 103, CO2 18, anion gap is 14. BUN and creatinine were 67 and 2.84. Calcium 7.2, bilirubin 2.1, AST 17, ALT 36, alkaline phosphatase 279, albumin 2.2. Microbiologic studies thus far all negative including blood urine sputum and CSF. Chest x-ray shows diffuse pleural parenchymal changes consistent with for pulmonary edema and possible pneumonia. Medications are reviewed again, as they are every day. ASSESSMENT: 1. Status post fall with multiple injuries including possible flail chest, splenic rupture, status post splenectomy, multiple rib fractures, land left pneumothorax. 2. Status post splenectomy on February 17, 2020. 3. Routine postoperative ventilator management, beginning on February 16, with failure to wean from mechanical ventilator ventilation, status post tracheostomy on February 25, 2020. 4. Status post bronchoscopy for mucus plugging and lung collapse on February 29, 2020. 5. Acute hemorrhagic shock, resolved. 6. Acute blood loss anemia, status post 4 units of PRBCs. 7. History of chronic neck pain. 8. Coronary artery disease with previous bypass grafting. 9. Hyperlipidemia. 10.Paroxysmal atrial fibrillation. 11.Metabolic encephalopathy. 12.Status post PICC line placement. PLAN: Currently, the patient is on propofol at 15 mcg/kg/per minute, Vital high-protein at 30, which is goal and a Lasix drip of 50 mg an hour. We will ask Nephrology to see the patient because of the worsening renal function. The chest tube will be removed. We will add some Protonix IV for GI prophylaxis. We will do a daily interruption of sedation with PSV 10 CPAP of 5. I have asked the nurses and respiratory therapist to document if does well or if he fails. Additional recommendations and suggestions are forthcoming. Prognosis is very guarded. I did spend time talking to a family member yesterday. MMODL / IJN: [id number] /
--- NOTE | 2020-03-03 11:08 | P.PN ---
Subjective Progress Note Date: 03/03/20 The patient is seen at bedside and the he continues to be on the ventilator. Per the nurse the sedation was held for 1 hour today and but the patient not responding just grimacing to pain. Currently the patient is on IV propofol 15mcg/kg/min. On presentation the patient's creatinine is 1.25 currently the creatinine is 2.82. His white blood cell as remains to be elevated but some improvement on today's white blood cell compared to yesterday. Today is 36.9 and yesterday was 39.0. Patient hasn't had any fevers for at least the last 24 hours. Objective - Vital Signs Vital signs: Vital Signs Temp 98.9 F 03/03/20 08:00 Pulse 115 H 03/03/20 10:00 Resp 29 H 03/03/20 10:00 BP 144/67 03/03/20 10:00 Pulse Ox 95 03/03/20 10:00 Intake & Output 03/02/20 03/03/20 03/03/20 18:59 06:59 18:59 Intake Total 2849.112 2198.705 403.284 Output Total 335 320 120 Balance 2514.112 1878.705 283.284 Weight 98.4 kg 100.7 kg Intake: IV 1665 1555 140 Anidulafungin 100 mg In 100 Sodium Chloride 0.9% 100 ml @ 84 mls/hr IVPB DAILY @1700 [facility] Rx#:[id number] Dextrose 5% in Water 1, 1375 1375 125 000 ml @ 125 mls/hr IV . Q8H [facility] Rx#:[id number] Diltiazem 125 mg In 45 Sodium Chloride 0.9% 100 ml @ Per Protocol IV .Q0M [facility] Rx#:[id number] Furosemide 60 15 Furosemide 100 mg In 45 120 Sodium Chloride 0.9% 90 ml @ 15 MG/HR 15 mls/hr IV .Q6H40M [facility] Rx#: [id number] Meropenem 1 gm In Sodium 100 Chloride 0.9% 100 ml @ 33 .3 mls/hr IVPB Q8HR [facility] Rx#:[id number] Intake, IV Titration 424.112 313.705 13.284 Amount Dextrose 5% in Water 1, 125 000 ml @ 125 mls/hr IV . Q8H [facility] Rx#:[id number] Furosemide 100 mg In 181.75 Sodium Chloride 0.9% 90 ml @ 15 MG/HR 15 mls/hr IV .Q6H40M [facility] Rx#: [id number] Midazolam HCl 50 mg In 33.3 Sodium Chloride 0.9% 40 ml @ 1 MG/HR 1 mls/hr IV .Q24H [facility] Rx#:[id number] Morphine Sulfate (100 mg/ 91.12 2 ml) 100 mg In Sodium Chloride 0.9% 100 ml @ 2 MG/HR 2.04 mls/hr IV . Q24H [facility] Rx#:[id number] propofoL 1,000 mg In 174.692 131.955 13.284 Empty Bag 1 bag @ Titrate IV .Q0M [facility] Rx#: [id number] Tube Feeding 460 330 150 Other 300 100 Output: Chest Tube Drainage 120 50 Chest Tube Left Upper 120 50 Lateral Chest Urine 215 270 120 Other: Voiding Method Indwelling Catheter Indwelling Catheter Indwelling Catheter # Bowel Movements 1 1 ABP, PAP, CO, CI - Last Documented Arterial Blood Pressure 111/102 - Exam GENERAL: The patient is lying, on ventilator and on Propofol drip. HENT: There is neck rigidity on examination (but not sure if patient was resistance since on lower dose of sedation compared to yesterday. Negative Kernig sign or Brudzinksi sign. Normocephalic atraumatic otherwise. CHEST: The heart rate is irregular rate rhythm. No murmurs to auscultation. LUNG: Clear to auscultation bilaterally. Not labored breathing. On Ventilator. ABDOMEN/GI: Bowel sounds present in all 4 quadrants. Abdomen not distended. NEUROLOGICAL: Limited because of sedation. Higher mental function: Comatose and not following command. Cranial nerves: The pupils are 2mm bilaterally and sluggishly reactive to light. Primary gaze is midline. No facial weakness noted. Motor: No spontaneous movement. Could not assess patient strength because of condition. Cerebellum: Unable to assess Sensation: Unable to assess Reflexes (right/left): Brisk reflexes throughout. Plantars are downgoing bilaterally. - Labs CBC & Chem 7: 03/03/20 04:47 03/03/20 04:47 Labs: Abnormal Lab Results - Last 24 Hours (Table) 03/02/20 03/02/20 03/02/20 Range/Units 08:30 11:30 12:36 WBC (3.8-10.6) k/uL RBC (4.30-5.90) m/uL Hgb (13.0-17.5) gm/dL Hct (39.0-53.0) % MCHC (31.0-37.0) g/dL RDW (11.5-15.5) % Plt Count (150-450) k/uL Neutrophils # (Manual) (1.3-7.7) k/uL Monocytes # (Manual) (0-1.0) k/uL Eosinophils # (Manual) (0-0.7) k/uL Metamyelocytes # (Man) (0) k/uL Myelocytes # (Manual) (0) k/uL Nucleated RBCs (0-0) /100 WBC ABG pCO2 (35-45) mmHg ABG pO2 (83-108) mmHg ABG HCO3 (21-25) mmol/L ABG O2 Saturation (94-97) % Sodium (137-145) mmol/L Carbon Dioxide (22-30) mmol/L BUN (9-20) mg/dL Creatinine (0.66-1.25) mg/dL Glucose (74-99) mg/dL POC Glucose (mg/dL) 156 H (75-99) mg/dL Calcium (8.4-10.2) mg/dL Total Bilirubin (0.2-1.3) mg/dL AST (17-59) U/L Alkaline Phosphatase (38-126) U/L Total Protein (6.3-8.2) g/dL Albumin (3.5-5.0) g/dL CSF RBC 17 H (0-10) u/L CSF Glucose 93 H (40-70) mg/dL C. difficile (EIA) Intrp Positive A (Negative) 03/02/20 03/02/20 03/03/20 Range/Units 17:57 23:31 04:47 WBC 36.9 H (3.8-10.6) k/uL RBC 2.89 L (4.30-5.90) m/uL Hgb 7.9 L (13.0-17.5) gm/dL Hct 26.7 L (39.0-53.0) % MCHC 29.7 L (31.0-37.0) g/dL RDW 16.3 H (11.5-15.5) % Plt Count 487 H (150-450) k/uL Neutrophils # (Manual) 31.70 H (1.3-7.7) k/uL Monocytes # (Manual) 2.21 H (0-1.0) k/uL Eosinophils # (Manual) 1.11 H (0-0.7) k/uL Metamyelocytes # (Man) 0.37 H (0) k/uL Myelocytes # (Manual) 0.37 H (0) k/uL Nucleated RBCs 20 H (0-0) /100 WBC ABG pCO2 (35-45) mmHg ABG pO2 (83-108) mmHg ABG HCO3 (21-25) mmol/L ABG O2 Saturation (94-97) % Sodium (137-145) mmol/L Carbon Dioxide (22-30) mmol/L BUN (9-20) mg/dL Creatinine (0.66-1.25) mg/dL Glucose (74-99) mg/dL POC Glucose (mg/dL) 142 H 131 H (75-99) mg/dL Calcium (8.4-10.2) mg/dL Total Bilirubin (0.2-1.3) mg/dL AST (17-59) U/L Alkaline Phosphatase (38-126) U/L Total Protein (6.3-8.2) g/dL Albumin (3.5-5.0) g/dL CSF RBC (0-10) u/L CSF Glucose (40-70) mg/dL C. difficile (EIA) Intrp (Negative) 03/03/20 03/03/20 03/03/20 Range/Units 04:47 05:25 05:51 WBC (3.8-10.6) k/uL RBC (4.30-5.90) m/uL Hgb (13.0-17.5) gm/dL Hct (39.0-53.0) % MCHC (31.0-37.0) g/dL RDW (11.5-15.5) % Plt Count (150-450) k/uL Neutrophils # (Manual) (1.3-7.7) k/uL Monocytes # (Manual) (0-1.0) k/uL Eosinophils # (Manual) (0-0.7) k/uL Metamyelocytes # (Man) (0) k/uL Myelocytes # (Manual) (0) k/uL Nucleated RBCs (0-0) /100 WBC ABG pCO2 29 L (35-45) mmHg ABG pO2 125 H (83-108) mmHg ABG HCO3 18 L (21-25) mmol/L ABG O2 Saturation 98.8 H (94-97) % Sodium 135 L (137-145) mmol/L Carbon Dioxide 18 L (22-30) mmol/L BUN 67 H (9-20) mg/dL Creatinine 2.84 H (0.66-1.25) mg/dL Glucose 127 H (74-99) mg/dL POC Glucose (mg/dL) 155 H (75-99) mg/dL Calcium 7.2 L (8.4-10.2) mg/dL Total Bilirubin 2.1 H (0.2-1.3) mg/dL AST 79 H (17-59) U/L Alkaline Phosphatase 279 H (38-126) U/L Total Protein 5.0 L (6.3-8.2) g/dL Albumin 2.2 L (3.5-5.0) g/dL CSF RBC (0-10) u/L CSF Glucose (40-70) mg/dL C. difficile (EIA) Intrp (Negative) Microbiology - Last 24 Hours (Table) 03/02/20 08:30 CSF Gram Stain - Preliminary Cerebral Spinal Fluid CSF Culture - Preliminary 03/02/20 08:30 Acid Fast Bacilli Smear - Final Cerebral Spinal Fluid Acid Fast Bacilli Culture - Preliminary 03/02/20 08:30 Fungal Culture - Preliminary Cerebral Spinal Fluid 03/01/20 09:10 Urine Culture - Final Urine,Catheterized 03/01/20 09:10 Blood Culture - Preliminary Blood No Growth after 24 hours 03/01/20 09:10 Gram Stain - Preliminary Pleural Fluid Body Fluid Culture - Preliminary 02/29/20 11:00 Gram Stain - Final Bronchial Washings - Right Bronchial Washings Culture - Final Assessment and Plan Assessment: This is a 70-year-old gentleman with medical history of Afib, coronary artery disease status post CABG that presented to the emergency department on 02/17/2020 who fell off from a ladder and was brought in the emergency department and and was found to have left rib fractures from the third to the seventh, left-sided pneumothorax and splenic injury. Patient has left-sided chest tube. 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 ICU team held the sedation but unsuccessful since patient gets agitated. Neurology team is consulted because of his altered mental status. Encephalopathy likely due to multifactorial (pneumonia, C.Diff, pneuomothorax, worsening of LFT's, respiratory status, CARLA) as well as medication effect (on sedation). C. Diff positive Acute ventilatory dependent respiratory failure s/p traheostomy CARLA Fall with multiple injuries including splenic injury and multiple rib fracture) Left rib fracture from the third to seventh fall off ladder. Left pneumothorax status post chest tube Splenic injury from a fall status post splenectomy Atrial fibrillation Plan: Routine EEG (02/27/20): There are moderate to severe encephalopathy of unspecified etiology. There is no focal slowing, interictal activity or seizure activity seen. Repeat CT of the head (02/27/20): No acute intracranial hemorrhage, midline shift or mass effect. There is new partial opacification of the bilateral mastoid air cells not seen on 02/17/2020 comparison. Clinically correlate for possibility of mastoiditis I did review reviewed the CT of the head and I think the patient does have mastoiditis bilaterally and that was not seen on previous CT of the head that. CSF study (03/02/20): Clear, colorless, red blood cell was 17, nucleus else is 1, glucose of 93 (serum glucose 124), protein is 50. CSF: No growth after 24 hours The patient has been on ceftriaxone and vancomycin for at least 4 days prior to CSF and that could hampered the CSF result. But it's unlikely the patient has meningeal encephalitis. On the CT of the brain shows that he has the mastoiditis which was not seen on the previous CT of the head. Ammonia level is 38-->32. Vitamin B12 is 1496. Folate is 9.6. TSh is 3.370. AST on presentation 55-->144. A LTM presentation is 33--->80 He has a +ve C. diff on 03/02/2020 He's is currently on vancomycin and Eraxis. We'll defer the management of underlying infection to the ID team. Placed the patient on Thiamine 100 mg daily The plan was discussed with the ICU attending Alhaji Basha, M.D. Neuro-hospitalist Time with Patient: Greater than 30
[2020-03-03 11:26] LABS: Glucose,Whole Blood 142 mg/dL (75-99)
--- NOTE | 2020-03-03 11:27 | P.PN ---
Subjective Progress Note Date: 03/03/20 CHIEF COMPLAINT: Fall with Trauma HISTORY OF PRESENT ILLNESS: Patient seen with Dr. Ivy. This is a 69-year-old male who fell 15 feet off the top of the ladder. Patient's CAT scan was performed showing a large left pneumothorax as well as multiple rib fractures and hemoperitoneum and a ruptured spleen. Patient is status post splenectomy. Patient is status post tracheostomy placement due to his res piratory failure and unable to wean from vent. Patient remains in ICU. Patient failed weaning again today. His stool was positive for C. diff and started on oral vancomycin. He is afebrile today. He had lumbar puncture completed yesterday. WBC 36.9 hemoglobin 7.9 creatinine 2.84 total bili 2.1 AST 79 ALT 36 alk phos 279. Nephrology was consulted due to rise in kidney function PHYSICAL EXAM: VITAL SIGNS: Reviewed. GENERAL: Well-developed in no acute distress. HEENT: No sclera icterus. Extraocular movements grossly intact. Moist buccal mucosa. Head is atraumatic, normocephalic. Trach site clean dry and intact ABDOMEN: Soft. Nondistended. Incision site clean dry and intact NEUROLOGIC: Patient is sedated ASSESSMENT: 1. 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 2. Status post tracheostomy for respiratory failure 3. Status post fall off a ladder with, to chest and abdomen 4. Left-sided pneumothorax has chest tube in place 5. Multiple left-sided rib fractures 6. Alcohol intoxication 7. Acute hypoxic ventilatory dependent respiratory failure. 8. Chronic pain medication 9. Atrial fibrillation with rapid ventricular response 10. C. diff colitis PLAN: -Continue tube feedings -Continue ICU management -On IV antibiotics and antifungal -Continue oral vancomycin -lovenox for DVT prophylaxis Physician Departmental Shipping Clerk note has been reviewed by physician. Signing provider agrees with the documented findings, assessment, and plan of care. Objective - Vital Signs Vital signs: Vital Signs Temp 98.9 F 03/03/20 08:00 Pulse 115 H 03/03/20 10:00 Resp 29 H 03/03/20 10:00 BP 144/67 03/03/20 10:00 Pulse Ox 95 03/03/20 10:00 Intake & Output 03/02/20 03/03/20 03/03/20 18:59 06:59 18:59 Intake Total 2849.112 2198.705 403.284 Output Total 335 320 120 Balance 2514.112 1878.705 283.284 Weight 98.4 kg 100.7 kg Intake: IV 1665 1555 140 Anidulafungin 100 mg In 100 Sodium Chloride 0.9% 100 ml @ 84 mls/hr IVPB DAILY @1700 [facility] Rx#:[id number] Dextrose 5% in Water 1, 1375 1375 125 000 ml @ 125 mls/hr IV . Q8H [facility] Rx#:[id number] Diltiazem 125 mg In 45 Sodium Chloride 0.9% 100 ml @ Per Protocol IV .Q0M [facility] Rx#:[id number] Furosemide 60 15 Furosemide 100 mg In 45 120 Sodium Chloride 0.9% 90 ml @ 15 MG/HR 15 mls/hr IV .Q6H40M [facility] Rx#: [id number] Meropenem 1 gm In Sodium 100 Chloride 0.9% 100 ml @ 33 .3 mls/hr IVPB Q8HR [facility] Rx#:[id number] Intake, IV Titration 424.112 313.705 13.284 Amount Dextrose 5% in Water 1, 125 000 ml @ 125 mls/hr IV . Q8H [facility] Rx#:[id number] Furosemide 100 mg In 181.75 Sodium Chloride 0.9% 90 ml @ 15 MG/HR 15 mls/hr IV .Q6H40M [facility] Rx#: [id number] Midazolam HCl 50 mg In 33.3 Sodium Chloride 0.9% 40 ml @ 1 MG/HR 1 mls/hr IV .Q24H [facility] Rx#:[id number] Morphine Sulfate (100 mg/ 91.12 2 ml) 100 mg In Sodium Chloride 0.9% 100 ml @ 2 MG/HR 2.04 mls/hr IV . Q24H [facility] Rx#:[id number] propofoL 1,000 mg In 174.692 131.955 13.284 Empty Bag 1 bag @ Titrate IV .Q0M [facility] Rx#: [id number] Tube Feeding 460 330 150 Other 300 100 Output: Chest Tube Drainage 120 50 Chest Tube Left Upper 120 50 Lateral Chest Urine 215 270 120 Other: Voiding Method Indwelling Catheter Indwelling Catheter Indwelling Catheter # Bowel Movements 1 1 ABP, PAP, CO, CI - Last Documented Arterial Blood Pressure 111/102 - Labs CBC & Chem 7: 03/03/20 04:47 09/09/20 04:47 Labs: Abnormal Lab Results - Last 24 Hours (Table) 03/02/20 03/02/20 03/02/20 Range/Units 08:30 11:30 12:36 WBC (3.8-10.6) k/uL RBC (4.30-5.90) m/uL Hgb (13.0-17.5) gm/dL Hct (39.0-53.0) % MCHC (31.0-37.0) g/dL RDW (11.5-15.5) % Plt Count (150-450) k/uL Neutrophils # (Manual) (1.3-7.7) k/uL Monocytes # (Manual) (0-1.0) k/uL Eosinophils # (Manual) (0-0.7) k/uL Metamyelocytes # (Man) (0) k/uL Myelocytes # (Manual) (0) k/uL Nucleated RBCs (0-0) /100 WBC ABG pCO2 (35-45) mmHg ABG pO2 (83-108) mmHg ABG HCO3 (21-25) mmol/L ABG O2 Saturation (94-97) % Sodium (137-145) mmol/L Carbon Dioxide (22-30) mmol/L BUN (9-20) mg/dL Creatinine (0.66-1.25) mg/dL Glucose (74-99) mg/dL POC Glucose (mg/dL) 156 H (75-99) mg/dL Calcium (8.4-10.2) mg/dL Total Bilirubin (0.2-1.3) mg/dL AST (17-59) U/L Alkaline Phosphatase (38-126) U/L Total Protein (6.3-8.2) g/dL Albumin (3.5-5.0) g/dL CSF RBC 17 H (0-10) u/L CSF Glucose 93 H (40-70) mg/dL C. difficile (EIA) Intrp Positive A (Negative) 03/02/20 03/02/20 03/03/20 Range/Units 17:57 23:31 04:47 WBC 36.9 H (3.8-10.6) k/uL RBC 2.89 L (4.30-5.90) m/uL Hgb 7.9 L (13.0-17.5) gm/dL Hct 26.7 L (39.0-53.0) % MCHC 29.7 L (31.0-37.0) g/dL RDW 16.3 H (11.5-15.5) % Plt Count 487 H (150-450) k/uL Neutrophils # (Manual) 31.70 H (1.3-7.7) k/uL Monocytes # (Manual) 2.21 H (0-1.0) k/uL Eosinophils # (Manual) 1.11 H (0-0.7) k/uL Metamyelocytes # (Man) 0.37 H (0) k/uL Myelocytes # (Manual) 0.37 H (0) k/uL Nucleated RBCs 20 H (0-0) /100 WBC ABG pCO2 (35-45) mmHg ABG pO2 (83-108) mmHg ABG HCO3 (21-25) mmol/L ABG O2 Saturation (94-97) % Sodium (137-145) mmol/L Carbon Dioxide (22-30) mmol/L BUN (9-20) mg/dL Creatinine (0.66-1.25) mg/dL Glucose (74-99) mg/dL POC Glucose (mg/dL) 142 H 131 H (75-99) mg/dL Calcium (8.4-10.2) mg/dL Total Bilirubin (0.2-1.3) mg/dL AST (17-59) U/L Alkaline Phosphatase (38-126) U/L Total Protein (6.3-8.2) g/dL Albumin (3.5-5.0) g/dL CSF RBC (0-10) u/L CSF Glucose (40-70) mg/dL C. difficile (EIA) Intrp (Negative) 03/03/20 03/03/20 03/03/20 Range/Units 04:47 05:25 05:51 WBC (3.8-10.6) k/uL RBC (4.30-5.90) m/uL Hgb (13.0-17.5) gm/dL Hct (39.0-53.0) % MCHC (31.0-37.0) g/dL RDW (11.5-15.5) % Plt Count (150-450) k/uL Neutrophils # (Manual) (1.3-7.7) k/uL Monocytes # (Manual) (0-1.0) k/uL Eosinophils # (Manual) (0-0.7) k/uL Metamyelocytes # (Man) (0) k/uL Myelocytes # (Manual) (0) k/uL Nucleated RBCs (0-0) /100 WBC ABG pCO2 29 L (35-45) mmHg ABG pO2 125 H (83-108) mmHg ABG HCO3 18 L (21-25) mmol/L ABG O2 Saturation 98.8 H (94-97) % Sodium 135 L (137-145) mmol/L Carbon Dioxide 18 L (22-30) mmol/L BUN 67 H (9-20) mg/dL Creatinine 2.84 H (0.66-1.25) mg/dL Glucose 127 H (74-99) mg/dL POC Glucose (mg/dL) 155 H (75-99) mg/dL Calcium 7.2 L (8.4-10.2) mg/dL Total Bilirubin 2.1 H (0.2-1.3) mg/dL AST 79 H (17-59) U/L Alkaline Phosphatase 279 H (38-126) U/L Total Protein 5.0 L (6.3-8.2) g/dL Albumin 2.2 L (3.5-5.0) g/dL CSF RBC (0-10) u/L CSF Glucose (40-70) mg/dL C. difficile (EIA) Intrp (Negative) Microbiology - Last 24 Hours (Table) 03/02/20 08:30 CSF Gram Stain - Preliminary Cerebral Spinal Fluid CSF Culture - Preliminary 03/02/20 08:30 Acid Fast Bacilli Smear - Final Cerebral Spinal Fluid Acid Fast Bacilli Culture - Preliminary 03/02/20 08:30 Fungal Culture - Preliminary Cerebral Spinal Fluid 03/01/20 09:10 Urine Culture - Final Urine,Catheterized 03/01/20 09:10 Blood Culture - Preliminary Blood No Growth after 24 hours 03/01/20 09:10 Gram Stain - Preliminary Pleural Fluid Body Fluid Culture - Preliminary 02/29/20 11:00 Gram Stain - Final Bronchial Washings - Right Bronchial Washings Culture - Final
--- NOTE | 2020-03-03 15:11 | PN ---
PROGRESS NOTE DATE OF SERVICE: 03/03/2020 REASON FOR FOLLOWUP: C. difficile colitis. INTERVAL HISTORY: Patient is currently afebrile. The patient is hemodynamically stable, not on any pressor support. The patient's FiO2 is currently stable at 60%, unavailable at the bedside, regarding diarrhea status. Not available on the phone. PHYSICAL EXAMINATION: Blood pressure 117/55 with a pulse of 107, temperature 98.7, she is 94% on 50% FiO2. General description is an elderly male, lying in bed in no distress. RESPIRATORY SYSTEM: Unlabored breathing, decreased breath sounds in the base, with no wheeze. HEART: S1, S2. Regular rate and rhythm. ABDOMEN: Soft, no tenderness. LABS: Hemoglobin 7.1, white count of 36.9, slight decrease from yesterday. BUN of 7, creatinine is 2.94. DIAGNOSTIC IMPRESSION AND PLAN: 1. Patient with elevated white count, multifactorial, did have a new colitis currently covered with oral vancomycin to continue and will monitor clinical course closely. Discontinue the Eraxis. 2. Post splenectomy will be ordered and the patient is 2 weeks post splenectomy. Continue supportive care. MMODL / IJN: [id number] /
--- NOTE | 2020-03-03 15:53 | P.PN ---
Subjective This is Ayesha Valencia PA-C dictating a progress note on this patient The patient was interviewed and examined by me as well as by Dr. Torres Case discussed with Dr. Torres and he agrees with the plan of care HPI/interval history Patient is a 70-year-old male with a history of CAD status post CABG and paroxysmal atrial fibrillation who presented with a fall and multiple injuries. He underwent a splenectomy and a tracheostomy. He remains in the ICU, on the ventilator. Yesterday we converted him to oral Cardizem 60 mg 3 times daily. He has been going in and out of atrial fibrillation with rates in the 100s to 130s. Patient seen and examined in the ICU. EXAMINATION Patient is afebrile, pulse in the low 100s, blood pressure in the 1 teens over 50s, oxygen saturation 95% on mechanical ventilation Patient seen and examined in the ICU, sedated and on the ventilator Heart is irregular and tachycardic, no audible murmurs Breath sounds are equal bilaterally Extremities warm, mild edema REVIEW OF LABS, ECG WBC 36.9, hemoglobin 7.9, platelets 487, sodium 135, potassium 4.3, BUN 67, creatinine 2.84 Echocardiogram showed EF 55-60% IMPRESSION / ASSESSMENT: #1 fall with multiple injuries including a splenic injury status post splenectomy #2 status post tracheostomy #3 paroxysmal atrial fibrillation, currently in going in and out of atrial fibrillation with rates in the low 100s to 130s, not on anticoagulation due to anemia #4 history of CAD status post CABG #5 acute blood loss anemia status post multiple transfusions, hemoglobin 7.9 #6 acute kidney injury, BUN and creatinine rising, nephrology has been consulted PLAN: Increase Cardizem to 60 mg 4 times daily Continue all other cardiac medications Management of multiple other medical problems by primary care team and multiple consultants Objective - Vital Signs Vital signs: Vital Signs Temp 98.7 F 03/03/20 12:00 Pulse 109 H 03/03/20 15:46 Resp 28 H 03/03/20 13:00 BP 117/55 03/03/20 13:00 Pulse Ox 94 L 03/03/20 13:00 Intake & Output 03/02/20 03/03/20 03/03/20 18:59 06:59 18:59 Intake Total 2849.112 2198.705 711.589 Output Total 335 320 325 Balance 2514.112 1878.705 386.589 Weight 98.4 kg 100.7 kg Intake: IV 1665 1555 140 Anidulafungin 100 mg In 100 Sodium Chloride 0.9% 100 ml @ 84 mls/hr IVPB DAILY @1700 [facility] Rx#:[id number] Dextrose 5% in Water 1, 1375 1375 125 000 ml @ 125 mls/hr IV . Q8H [facility] Rx#:[id number] Diltiazem 125 mg In 45 Sodium Chloride 0.9% 100 ml @ Per Protocol IV .Q0M [facility] Rx#:[id number] Furosemide 60 15 Furosemide 100 mg In 45 120 Sodium Chloride 0.9% 90 ml @ 15 MG/HR 15 mls/hr IV .Q6H40M [facility] Rx#: [id number] Meropenem 1 gm In Sodium 100 Chloride 0.9% 100 ml @ 33 .3 mls/hr IVPB Q8HR [facility] Rx#:[id number] Intake, IV Titration 424.112 313.705 71.589 Amount Dextrose 5% in Water 1, 125 000 ml @ 125 mls/hr IV . Q8H [facility] Rx#:[id number] Furosemide 100 mg In 181.75 Sodium Chloride 0.9% 90 ml @ 15 MG/HR 15 mls/hr IV .Q6H40M [facility] Rx#: [id number] Midazolam HCl 50 mg In 33.3 Sodium Chloride 0.9% 40 ml @ 1 MG/HR 1 mls/hr IV .Q24H [facility] Rx#:[id number] Morphine Sulfate (100 mg/ 91.12 2 ml) 100 mg In Sodium Chloride 0.9% 100 ml @ 2 MG/HR 2.04 mls/hr IV . Q24H [facility] Rx#:[id number] propofoL 1,000 mg In 174.692 131.955 71.589 Empty Bag 1 bag @ Titrate IV .Q0M [facility] Rx#: [id number] Tube Feeding 460 330 300 Other 300 200 Output: Chest Tube Drainage 120 50 50 Chest Tube Left Upper 120 50 50 Lateral Chest Urine 215 270 275 Other: Voiding Method Indwelling Catheter Indwelling Catheter Indwelling Catheter # Bowel Movements 1 1 1 ABP, PAP, CO, CI - Last Documented Arterial Blood Pressure 111/102 - Labs CBC & Chem 7: 03/03/20 04:47 03/03/20 04:47 Labs: Abnormal Lab Results - Last 24 Hours (Table) 03/02/20 03/02/20 03/03/20 Range/Units 17:57 23:31 04:47 WBC 36.9 H (3.8-10.6) k/uL RBC 2.89 L (4.30-5.90) m/uL Hgb 7.9 L (13.0-17.5) gm/dL Hct 26.7 L (39.0-53.0) % MCHC 29.7 L (31.0-37.0) g/dL RDW 16.3 H (11.5-15.5) % Plt Count 487 H (150-450) k/uL Neutrophils # (Manual) 31.70 H (1.3-7.7) k/uL Monocytes # (Manual) 2.21 H (0-1.0) k/uL Eosinophils # (Manual) 1.11 H (0-0.7) k/uL Metamyelocytes # (Man) 0.37 H (0) k/uL Myelocytes # (Manual) 0.37 H (0) k/uL Nucleated RBCs 20 H (0-0) /100 WBC ABG pCO2 (35-45) mmHg ABG pO2 (83-108) mmHg ABG HCO3 (21-25) mmol/L ABG O2 Saturation (94-97) % Sodium (137-145) mmol/L Carbon Dioxide (22-30) mmol/L BUN (9-20) mg/dL Creatinine (0.66-1.25) mg/dL Glucose (74-99) mg/dL POC Glucose (mg/dL) 142 H 131 H (75-99) mg/dL Calcium (8.4-10.2) mg/dL Total Bilirubin (0.2-1.3) mg/dL AST (17-59) U/L Alkaline Phosphatase (38-126) U/L Total Protein (6.3-8.2) g/dL Albumin (3.5-5.0) g/dL 03/03/20 03/03/20 03/03/20 Range/Units 04:47 05:25 05:51 WBC (3.8-10.6) k/uL RBC (4.30-5.90) m/uL Hgb (13.0-17.5) gm/dL Hct (39.0-53.0) % MCHC (31.0-37.0) g/dL RDW (11.5-15.5) % Plt Count (150-450) k/uL Neutrophils # (Manual) (1.3-7.7) k/uL Monocytes # (Manual) (0-1.0) k/uL Eosinophils # (Manual) (0-0.7) k/uL Metamyelocytes # (Man) (0) k/uL Myelocytes # (Manual) (0) k/uL Nucleated RBCs (0-0) /100 WBC ABG pCO2 29 L (35-45) mmHg ABG pO2 125 H (83-108) mmHg ABG HCO3 18 L (21-25) mmol/L ABG O2 Saturation 98.8 H (94-97) % Sodium 135 L (137-145) mmol/L Carbon Dioxide 18 L (22-30) mmol/L BUN 67 H (9-20) mg/dL Creatinine 2.84 H (0.66-1.25) mg/dL Glucose 127 H (74-99) mg/dL POC Glucose (mg/dL) 155 H (75-99) mg/dL Calcium 7.2 L (8.4-10.2) mg/dL Total Bilirubin 2.1 H (0.2-1.3) mg/dL AST 79 H (17-59) U/L Alkaline Phosphatase 279 H (38-126) U/L Total Protein 5.0 L (6.3-8.2) g/dL Albumin 2.2 L (3.5-5.0) g/dL 03/03/20 Range/Units 11:24 WBC (3.8-10.6) k/uL RBC (4.30-5.90) m/uL Hgb (13.0-17.5) gm/dL Hct (39.0-53.0) % MCHC (31.0-37.0) g/dL RDW (11.5-15.5) % Plt Count (150-450) k/uL Neutrophils # (Manual) (1.3-7.7) k/uL Monocytes # (Manual) (0-1.0) k/uL Eosinophils # (Manual) (0-0.7) k/uL Metamyelocytes # (Man) (0) k/uL Myelocytes # (Manual) (0) k/uL Nucleated RBCs (0-0) /100 WBC ABG pCO2 (35-45) mmHg ABG pO2 (83-108) mmHg ABG HCO3 (21-25) mmol/L ABG O2 Saturation (94-97) % Sodium (137-145) mmol/L Carbon Dioxide (22-30) mmol/L BUN (9-20) mg/dL Creatinine (0.66-1.25) mg/dL Glucose (74-99) mg/dL POC Glucose (mg/dL) 142 H (75-99) mg/dL Calcium (8.4-10.2) mg/dL Total Bilirubin (0.2-1.3) mg/dL AST (17-59) U/L Alkaline Phosphatase (38-126) U/L Total Protein (6.3-8.2) g/dL Albumin (3.5-5.0) g/dL Microbiology - Last 24 Hours (Table) 03/01/20 09:10 Gram Stain - Preliminary Pleural Fluid Body Fluid Culture - Preliminary 03/01/20 09:10 Blood Culture - Preliminary Blood No Growth after 48 hours 03/02/20 08:30 CSF Gram Stain - Preliminary Cerebral Spinal Fluid CSF Culture - Preliminary 03/02/20 08:30 Acid Fast Bacilli Smear - Final Cerebral Spinal Fluid Acid Fast Bacilli Culture - Preliminary 03/02/20 08:30 Fungal Culture - Preliminary Cerebral Spinal Fluid 03/01/20 09:10 Urine Culture - Final Urine,Catheterized
[2020-03-03 17:10] LABS: Glucose,Whole Blood 117 mg/dL (75-99)
--- NOTE | 2020-03-03 18:27 | P.PN ---
Subjective 69-year-old male was cleaning gutters fell from skin feet ladder was brought into emergency department found to have several left-sided fractures left-sided pneumothorax with a left-sided chest tube presently patient is presently intubated patient has multiple left-sided fractures from third to seventh rib patient also had a splenectomy for splenic injury. Patient is presently sedated with propofol and also morphine drip patient is presently on ventilatory support blood gases showed normal pH pCO2 and pO2 are within normal limits as well pat ient is presently onZosyn patient had lactic acidosis secondary tolactated Ringer's. Patient is hyperchloremic because of which probably will start him on half-normal saline. 02/19/2020 Patient is expected today and shortly after that patient didn't tolerate that and patient ended up undergoing an atrial fibrillation patient was started on amiodarone patient was subsequently reintubated. Patient is bit hyponatremic because of extensive switching the IV fluids to normal saline instead of half- normal saline. Patient is also getting amiodarone. D5 water. Patient is not requiring any pressors at this time. Please refer to intensive is documentation for further details of ventilator settings. 02/20/2020 Patient developed ongoing trial patient is having sedation vacation patient heart rate is better controlled patient overall clinical condition is bit better today 02/21/2020 Patient still in the ICU, he is intubated and sedated. Chest tube is in place and it hasn't output about 325 in 24 hours, propofol was switched to Paradox by critical care team. Pulmonary/critical care troponin measuring the event, sugar was low but most likely this is a false reading because patient is edematous. Surgical wound in the middle of the abdomen it looks clean and dry and closed. Patient is getting IV morphine. Creatinine and electrolytes are normal. Echocardiogram showing ejection fraction of 55-60% with moderate to severe mitral regurgitation His WBCs 17.3 K. Liver enzymes are trending down 02/22/2020 Patient the ICU, he could not tolerate the current sedative and he had to be placed back on the propofol, he got agitated overnight and he needed restraints. These making about 1 5200 mL of chest tube drainage every 12 hours Lasix is added. Also he had low-grade temperature and mild increase in WBC, he still on Zosyn and IV on the case. Cultures are negative so far 02/23/2020 Patient remains in the ICU, intubated and sedated on a propofol, he looks calm. Patient undergoing sedation holiday and pulmonary team managing his vent He still has low-grade fever 99.7, leukocytosis or interrupted 22K. BMP is unremarkable. Cultures are negative so far, infectious disease and pulmonary/critical care team on the case. Chest x-ray showing unchanged radiographic appearance of tubes and lines, mildly improved aeration of bilateral lung bases with persistent small bilateral pleural effusions and bibasilar air space opacity and multiple left-sided displaced rib fractures Currently he is on Zosyn 02/24/2020 Patient still intubated and sedated, he undergoing sedation holiday and he wakes up then to be breathing trial Patient is improving on Zosyn, no fever however culture are negative. Patient is still getting intermittent feeding. Chest tube still on the left side with about 150-200 mL of discharge every 12 hour period , surgery team on the case patient may need a PEG tube and tracheostomy if he fails a voiding trial 02/24 Patient remains in the ICU intubated and sedated, despite being on Precedex. Today he developed A. fib with RVR, he has history of A. fib. before, he Is currently not on anticoagulation other than DVT prophylaxis with Lovenox due to his hematoma. Patient was started on amiodarone drip, his rate is controlled, is controlled. Computed tomography scan of the abdomen is requested to assess his hematoma. He still has fever at 100.1 Hemoglobin is 8.8, which is stable compared to yesterday. PH normal 7.4 with normal pCO2 at 43 and low pO2 at 68, BMP is unremarkable and sugar is controlled. Surgical team were consulted for possible PEG and tracheostomy Prognosis remains very guarded. 02/26/20 Patient still on ventilation, he got tracheostomy yesterday and hysterectomy that well. Sedation is off however patient is restless and agitated, however patient does not follow, He developed another atrial fibrillation with rapid rate and he was started on amiodarone drip at 0.5. Cardizem may be added as well. Cardiology of the case Surgery team are following the patient for possible PEG placement. Possibly today. Patient remains on Zosyn, amiodarone, which can be switched to oral per [employer] and Cardizem as needed 02/28/20 Patient remains in the ICU, his status post tracheostomy, PEG tube placement was postponed f by surgery team. He still has PICC line and left-sided chest tube with more than 100 mL of fluid draining but it is serous. Antibiotics has changed from Zosyn to vancomycin and cefepime, catheter tip culture and sensitivity was sent. CT of the abdomen and pelvis showing increased left basilar, CT. Neurologist neurologist evaluated the patient and EEG is negative for epileptiform activity but showing severe encephalopathy WBC is 19 KI patient has no fever today Neurologist recommended MRI of the brain and cervical spine when she is more stable 02/29/20 Patient remains intubated and sedated on a propofol, tracheostomy in this place, also left-sided chest tube with service discharge only. Patient underwent bronchoscopy and bronchoalveolar lavage of the right upper lobe, and follow-up the results Patient is hemodynamically stable WBC still 19 K and sodium 148. Patient remains on antibiotics per infectious disease recommendation. And she was followed also by pulmonary/critical care team, surgery team. 03/01/20 Patient remains intubated and sedated, any target dose of sedation actually. He still have PICC line, tracheostomy, left chest tube service discharge and has Nolan catheter PEG tube placement was postponed currently. Patient showing low-grade fever today. And WBC went up to 20 9K. Creatinine is normal and sodium 148. He is still on mechanical ventilation and pulmonary/ critical care team following the case. Currently his on 10 PEEP and FiO2 of 60%. EEG showing no epileptiform activity and moderate to severe encephalopathy. Neurology service on the case and the recommended to proceed with lumbar puncture. Also follow-up. Bronchoscopy lavage results Possible discontinue the chest tube for pulmonary service. Patient is followed by several consultants including pulmonary, cardiology, infectious disease, neurology and surgery 03/02/20 Patient remains intubated and sedated on a propofol, no sedation holiday oriented trial today Patient had a lumbar puncture today and results are likely showing meningitis or encephalitis per neurology was on the case. Patient continued to have left-sided chest tube was satisfactory draining, tracheostomy in place, he has to proceeding, PEG placement is postponed for now. he was started on Lasix drip, also I continued on Cardizem drip. Infectious disease on the case and added oral vancomycin today for C. diff colitis. His IV vancomycin and cefepime were stopped per infectious disease recommendation. Prognosis remains guarded Patient is been followed by several consultants including pulmonary/critical care team, neurology, infectious disease, cardiology and surgery teams 03/03/20 Patient intubated and sedated in the ICU, 1 hour sedation holiday was done and patient could not tolerate that well, he was tachypneic, tachycardic and he does not follow commands. Renal function is worsening today to 2.8, nephrology consult was placed. Left-sided chest tube was taken out. PICC line is in place, Nolan catheter is in place. Sugar is controlled. Generally the patient is not improving and his condition become more complex, despite several treatments and sore consultants on the case included pulmonary/critical care team, general surgery, business process specialist, infectious disease, neurologist and informatica mdm developer And management and further recommendation. Lasix drip was stopped today. He remains on oral vancomycin, vitamin daily, Seroquel, Cardizem 60 mg by mouth 4 times a day. On amiodarone and Lipitor Review of system: N/a Active Medications Generic Name Dose Route Start Last Admin Trade Name Freq PRN Reason Stop Dose Admin Acetaminophen 650 mg 02/20/20 22:00 03/01/20 13:25 Tylenol Tab PO 650 mg Q6HR PRN Administration Fever and/ or Pain Albuterol/Ipratropium 3 ml 03/02/20 12:00 03/03/20 15:29 Duoneb 0.5 Mg-3 Mg/3 Ml Soln INHALATION 3 ml RT-Q4H BETTINA Administration Amiodarone HCl 200 mg 02/27/20 09:00 03/03/20 08:51 Cordarone PO 200 mg BID BETTINA Administration Atorvastatin Calcium 20 mg 02/18/20 21:00 03/02/20 21:29 Lipitor PO 20 mg HS BETTINA Administration Chlorhexidine Gluconate 15 ml 02/18/20 12:00 03/03/20 08:51 Peridex MUCOUS MEM 15 ml BID BETTINA Administration Diltiazem HCl 60 mg 03/03/20 13:00 03/03/20 17:52 Cardizem Oral PO 60 mg QID BETTINA Administration Enoxaparin Sodium 30 mg 03/04/20 09:00 Lovenox SQ DAILY BETTINA Finasteride 5 mg 02/18/20 21:00 03/02/20 21:30 Proscar PO 5 mg HS BETTINA Administration Propofol 1,000 mg/ IV Solution 100 mls @ 0 mls/hr 02/17/20 22:45 03/03/20 15:34 IV 15 mcg/kg/min .Q0M BETTINA 9.063 mls/hr Administration Protocol Titrate Sodium Chloride 1,000 mls @ 20 mls/hr 02/19/20 11:45 03/03/20 10:16 Saline 0.9% IV 20 mls/hr .Q24H BETTINA Administration Insulin Aspart 0 unit 02/18/20 13:00 03/03/20 17:43 Novolog SQ Not Given Q6HR [facility] Protocol Miscellaneous Information 1 each 02/18/20 05:19 Magnesium Per Protocol MISCELLANE DAILY PRN Per Protocol Protocol Miscellaneous Information 1 each 02/19/20 05:38 Potassium Per Protocol MISCELLANE DAILY PRN Per Protocol Protocol Morphine Sulfate 2 mg 03/02/20 11:48 03/03/20 13:22 Morphine Sulfate (Inj) IVP 2 mg Q2H PRN Administration Pain/Discomfort Morphine Sulfate 4 mg 03/02/20 11:48 Morphine Sulfate (Inj) IVP Q2H PRN Pain Naloxone HCl 0.2 mg 02/17/20 19:37 Narcan IV Q2M PRN Opioid Reversal Pantoprazole Sodium 40 mg 03/03/20 09:00 03/03/20 08:51 Protonix IVP 40 mg DAILY BETTINA Administration Quetiapine Fumarate 50 mg 02/23/20 21:00 03/03/20 08:51 Seroquel PO 50 mg BID BETTINA Administration Sodium Bicarbonate 650 mg 03/03/20 09:15 03/03/20 15:41 Sodium Bicarbonate Tab PO 650 mg TID BETTINA Administration Sodium Chloride 10 ml 02/26/20 15:12 Saline Flush IV Q4HR PRN PICC Line Sodium Chloride 10 ml 03/04/20 09:00 Saline Flush IV WEEKLY BETTINA Sodium Chloride 20 ml 02/26/20 15:12 Saline Flush IV Q4HR PRN PICC Line Tamsulosin HCl 0.8 mg 02/18/20 21:00 03/02/20 21:22 Flomax PO Not Given HS BETTINA Thiamine HCl 100 mg 02/27/20 10:45 03/03/20 08:51 Vitamin B-1 PO 100 mg DAILY BETTINA Administration Vancomycin HCl 250 mg 03/02/20 18:00 03/03/20 17:44 Vancomycin Oral Solution PO 250 mg Q6HR BETTINA Administration Objective - Vital Signs Vital signs: Vital Signs Temp 98.6 F 03/03/20 16:00 Pulse 92 03/03/20 18:00 Resp 29 H 03/03/20 18:00 BP 132/67 03/03/20 18:00 Pulse Ox 94 L 03/03/20 18:00 Intake & Output 03/02/20 03/03/20 03/03/20 18:59 06:59 18:59 Intake Total 2849.112 2198.705 901.589 Output Total 335 320 403 Balance 2514.112 1878.705 498.589 Weight 98.4 kg 100.7 kg Intake: IV 1665 1555 140 Anidulafungin 100 mg In 100 Sodium Chloride 0.9% 100 ml @ 84 mls/hr IVPB DAILY @1700 BETTINA Rx#:[id number] Dextrose 5% in Water 1, 1375 1375 125 000 ml @ 125 mls/hr IV . Q8H BETTINA Rx#:[id number] Diltiazem 125 mg In 45 Sodium Chloride 0.9% 100 ml @ Per Protocol IV .Q0M BETTINA Rx#:[id number] Furosemide 60 15 Furosemide 100 mg In 45 120 Sodium Chloride 0.9% 90 ml @ 15 MG/HR 15 mls/hr IV .Q6H40M [facility] Rx#: [id number] Meropenem 1 gm In Sodium 100 Chloride 0.9% 100 ml @ 33 .3 mls/hr IVPB Q8HR BETTINA Rx#:[id number] Intake, IV Titration 424.112 313.705 71.589 Amount Dextrose 5% in Water 1, 125 000 ml @ 125 mls/hr IV . Q8H BETTINA Rx#:[id number] Furosemide 100 mg In 181.75 Sodium Chloride 0.9% 90 ml @ 15 MG/HR 15 mls/hr IV .Q6H40M [facility] Rx#: [id number] Midazolam HCl 50 mg In 33.3 Sodium Chloride 0.9% 40 ml @ 1 MG/HR 1 mls/hr IV .Q24H BETTINA Rx#:[id number] Morphine Sulfate (100 mg/ 91.12 2 ml) 100 mg In Sodium Chloride 0.9% 100 ml @ 2 MG/HR 2.04 mls/hr IV . Q24H BETTINA Rx#:[id number] propofoL 1,000 mg In 174.692 131.955 71.589 Empty Bag 1 bag @ Titrate IV .Q0M BETTINA Rx#: [id number] Tube Feeding 460 330 390 Other 300 300 Output: Chest Tube Drainage 120 50 50 Chest Tube Left Upper 120 50 50 Lateral Chest Urine 215 270 353 Other: Voiding Method Indwelling Catheter Indwelling Catheter Indwelling Catheter # Bowel Movements 1 1 1 ABP, PAP, CO, CI - Last Documented Arterial Blood Pressure 111/102 - Exam -GENERAL: The patient is intubated and sedated HEENT: Pupils are round and equally reacting to light. EOMI. No scleral icterus. No conjunctival pallor. Normocephalic, atraumatic. No pharyngeal erythema. No thyromegaly. CARDIOVASCULAR: S1 and S2 present. No murmurs, rubs, or gallops. -PULMONARY: Chest is clear to auscultation, no wheezing or crackles. Left-sided chest tube midline vertical surgical wound is clean and dry and closed -ABDOMEN: Soft, nontender, nondistended, normoactive bowel sounds. No palpable organomegaly. MUSCULOSKELETAL: No joint swelling or deformity. EXTREMITIES: No cyanosis, clubbing, or pedal edema. NEUROLOGICAL: Gross neurological examination did not reveal any focal deficits. SKIN: No rashes. no petechiae. - Labs CBC & Chem 7: 03/03/20 04:47 03/03/20 04:47 Labs: Abnormal Lab Results - Last 24 Hours (Table) 03/02/20 03/03/20 03/03/20 Range/Units 23:31 04:47 04:47 WBC 36.9 H (3.8-10.6) k/uL RBC 2.89 L (4.30-5.90) m/uL Hgb 7.9 L (13.0-17.5) gm/dL Hct 26.7 L (39.0-53.0) % MCHC 29.7 L (31.0-37.0) g/dL RDW 16.3 H (11.5-15.5) % Plt Count 487 H (150-450) k/uL Neutrophils # (Manual) 31.70 H (1.3-7.7) k/uL Monocytes # (Manual) 2.21 H (0-1.0) k/uL Eosinophils # (Manual) 1.11 H (0-0.7) k/uL Metamyelocytes # (Man) 0.37 H (0) k/uL Myelocytes # (Manual) 0.37 H (0) k/uL Nucleated RBCs 20 H (0-0) /100 WBC ABG pCO2 (35-45) mmHg ABG pO2 (83-108) mmHg ABG HCO3 (21-25) mmol/L ABG O2 Saturation (94-97) % Sodium 135 L (137-145) mmol/L Carbon Dioxide 18 L (22-30) mmol/L BUN 67 H (9-20) mg/dL Creatinine 2.84 H (0.66-1.25) mg/dL Glucose 127 H (74-99) mg/dL POC Glucose (mg/dL) 131 H (75-99) mg/dL Calcium 7.2 L (8.4-10.2) mg/dL Total Bilirubin 2.1 H (0.2-1.3) mg/dL AST 79 H (17-59) U/L Alkaline Phosphatase 279 H (38-126) U/L Total Protein 5.0 L (6.3-8.2) g/dL Albumin 2.2 L (3.5-5.0) g/dL 03/03/20 03/03/20 03/03/20 Range/Units 05:25 05:51 11:24 WBC (3.8-10.6) k/uL RBC (4.30-5.90) m/uL Hgb (13.0-17.5) gm/dL Hct (39.0-53.0) % MCHC (31.0-37.0) g/dL RDW (11.5-15.5) % Plt Count (150-450) k/uL Neutrophils # (Manual) (1.3-7.7) k/uL Monocytes # (Manual) (0-1.0) k/uL Eosinophils # (Manual) (0-0.7) k/uL Metamyelocytes # (Man) (0) k/uL Myelocytes # (Manual) (0) k/uL Nucleated RBCs (0-0) /100 WBC ABG pCO2 29 L (35-45) mmHg ABG pO2 125 H (83-108) mmHg ABG HCO3 18 L (21-25) mmol/L ABG O2 Saturation 98.8 H (94-97) % Sodium (137-145) mmol/L Carbon Dioxide (22-30) mmol/L BUN (9-20) mg/dL Creatinine (0.66-1.25) mg/dL Glucose (74-99) mg/dL POC Glucose (mg/dL) 155 H 142 H (75-99) mg/dL Calcium (8.4-10.2) mg/dL Total Bilirubin (0.2-1.3) mg/dL AST (17-59) U/L Alkaline Phosphatase (38-126) U/L Total Protein (6.3-8.2) g/dL Albumin (3.5-5.0) g/dL 03/03/20 Range/Units 17:07 WBC (3.8-10.6) k/uL RBC (4.30-5.90) m/uL Hgb (13.0-17.5) gm/dL Hct (39.0-53.0) % MCHC (31.0-37.0) g/dL RDW (11.5-15.5) % Plt Count (150-450) k/uL Neutrophils # (Manual) (1.3-7.7) k/uL Monocytes # (Manual) (0-1.0) k/uL Eosinophils # (Manual) (0-0.7) k/uL Metamyelocytes # (Man) (0) k/uL Myelocytes # (Manual) (0) k/uL Nucleated RBCs (0-0) /100 WBC ABG pCO2 (35-45) mmHg ABG pO2 (83-108) mmHg ABG HCO3 (21-25) mmol/L ABG O2 Saturation (94-97) % Sodium (137-145) mmol/L Carbon Dioxide (22-30) mmol/L BUN (9-20) mg/dL Creatinine (0.66-1.25) mg/dL Glucose (74-99) mg/dL POC Glucose (mg/dL) 117 H (75-99) mg/dL Calcium (8.4-10.2) mg/dL Total Bilirubin (0.2-1.3) mg/dL AST (17-59) U/L Alkaline Phosphatase (38-126) U/L Total Protein (6.3-8.2) g/dL Albumin (3.5-5.0) g/dL Microbiology - Last 24 Hours (Table) 03/01/20 09:10 Gram Stain - Preliminary Pleural Fluid Body Fluid Culture - Preliminary 03/01/20 09:10 Blood Culture - Preliminary Blood No Growth after 48 hours 03/02/20 08:30 CSF Gram Stain - Preliminary Cerebral Spinal Fluid CSF Culture - Preliminary 03/02/20 08:30 Acid Fast Bacilli Smear - Final Cerebral Spinal Fluid Acid Fast Bacilli Culture - Preliminary 03/02/20 08:30 Fungal Culture - Preliminary Cerebral Spinal Fluid Assessment and Plan Assessment: - Fall from ladder with trauma to chest and abdomen with traumatic hydro- pneumothorax , status post chest tube -Splenic injury status post splenectomy -Acute ventilatory dependent respiratory failure hypoxic secondary to polytrauma, pneumothorax and splenic injury, continue with the ventilatory support and wean off as tolerated. -A. fib with RVR -Positive C. diff tests suspicious for C. diff colitis, continue with oral vancomycin -left basilar opacity, stable -Traumatic left-sided rib fractures -hyponatremia -Hemorrhagic shock on admission which improved patient received 4 units of PRBC transfusion presently hemodynamically stable is not requiring any pressors -acute blood loss anemia from polytrauma pneumoperitoneum -history of carotid artery disease with previous bypass surgery -Hyperlipidemia -Benign prostatic hypertrophy Several consultants on the case and follow-up with a recommendation including pulmonary/critical care team, business process specialist, infectious disease, neurologist, informatica mdm developer and general surgeon.
[2020-03-03] MEDS: ATORVASTATIN 20 MG TAB PO SCH (21:36)
[2020-03-03] MEDS: TAMSULOSIN 0.4 MG CAP.ER.24H PO SCH (21:37)
[2020-03-03] MEDS: FINASTERIDE 5 MG TAB PO SCH (21:37)
[2020-03-03 23:32] LABS: Glucose,Whole Blood 139 mg/dL (75-99)
[2020-03-04] MEDS: IPRATROPIUM-ALBUTEROL 3 ML NEB INHALATION SCH ×6 (02:29→23:19)
[2020-03-04] MEDS: INSULIN ASPART (NovoLOG) 100 UNIT/ML VIAL SQ SCH ×3 (05:46→18:03)
[2020-03-04 05:47] LABS: Glucose,Whole Blood 117 mg/dL (75-99)
[2020-03-04 05:57] LABS: Albumin 2.2 g/dL (3.5-5.0); Calcium 7.2 mg/dL (8.4-10.2); Potassium 5.8 mmol/L (3.5-5.1); Total Bilirubin 2.5 mg/dL (0.2-1.3); Total Protein 4.9 g/dL (6.3-8.2)
[2020-03-04 06:05] LABS: Anisocytosis Slight; HCT 24.3 % (39.0-53.0); HGB 7.4 gm/dL (13.0-17.5); Hypochromasia Marked; MCH 27.6 pg (25.0-35.0); MCHC 30.5 g/dL (31.0-37.0); MCV 90.5 fL (80.0-100.0); Mean Platelet Volume 12.5; Platelet Count 570 k/uL (150-450); Poikilocytosis Slight; RBC 2.68 m/uL (4.30-5.90); RDW 16.3 % (11.5-15.5)
[2020-03-04] MEDS: VANCOMYCIN ORAL SOLUTION 250 MG/5 ML BOTTLE PO SCH ×3 (06:05→18:06)
[2020-03-04 06:06] LABS: ABG Base Excess -9.7 mmol/L; ABG HCO3 16 mmol/L (21-25); ABG Oxygen Saturation 98.4 % (94-97); ABG PCO2 31 mmHg (35-45); ABG PH 7.33 (7.35-7.45); ABG PO2 140 mmHg (83-108); ABG TCO2 17 mmol/L (19-24); Allen Test Performed? Yes
[2020-03-04 06:13] LABS: Band Neutrophils % 7 %; Eosinophils # (M) 0.28 k/uL (0-0.7); Lymphocytes # (M) 1.39 k/uL (1.0-4.8); Metamyelocytes # (M) 1.11 k/uL (0); Metamyelocytes % 4 %; Monocytes # (M) 2.78 k/uL (0-1.0); Myelocytes # (M) 0.28 k/uL (0); Myelocytes % 1 %; Neutrophils % (M) 73 %; Nucleated Red Blood Cells 30 /100 WBC (0-0); Total Cells Counted 200; WBC 27.8 k/uL (3.8-10.6)
[2020-03-04] MEDS ORDERED: SODIUM BICARB 8.4% 50 ML SYR (1 MEQ/ML) IV STA (06:22)
[2020-03-04] MEDS ORDERED: DEXTROSE 50% SYRINGE 50 ML IVP STA (06:22)
[2020-03-04] MEDS ORDERED: FUROSEMIDE 10 MG/ML 10 ML VIAL IV STA (06:22)
[2020-03-04] MEDS ORDERED: INSULIN REGULAR 100 UNIT/ML VIAL IV ONE (06:30)
--- NOTE | 2020-03-04 08:17 | XR ---
EXAMINATION TYPE: XR chest 1V portable DATE OF EXAM: 03/04/2020 CLINICAL HISTORY: Difficulty breathing progress study. Originally admitted for traumatic fall with r ib fractures February 16. TECHNIQUE: Single AP portable semiupright view of the chest is obtained. COMPARISON: Chest x-ray from one day earlier and older studies. FINDINGS: Stable appearance of left-sided PICC line, flexible tracheostomy tube, and orogastric tube . Overlying sternal wires and mediastinal clips redemonstrated. Interval removal of left basilar ches t tube. Partial visualization of surgical change in the cervical spine. Stable mild cardiomegaly. Persistent left basilar opacity with tiny bilateral pleural effusions. Pers istent right upper lung superior consolidation with air bronchograms. Persistent central vascular con gestion. Displaced left posterolateral fourth through sixth rib fractures noted.. Slightly elevated l eft hemidiaphragm remains present. IMPRESSION: Central vascular congestion and mild cardiomegaly with tiny bilateral pleural effusions a long with right upper lobe consolidation and left basilar acute infiltrate and/or atelectasis are all redemonstrated. No significant interval change. No recurrent left-sided pneumothorax after chest tub e noted.
--- NOTE | 2020-03-04 09:26 | P.PN ---
Subjective patient is seen in follow-up for acute kidney injury. renal function continues to worsen. Creatinine 4.04 today. Patient is now oliguric. Potassium was noted to be high at 5.8 and was medically treated with IV bicarb and IV insulin. Patient remains quite edematous. He did receive 80 mg IV Lasix this morning without any response and urine output. A. fib is controlled. Blood pressure stable. Vital signs are stable. General: The patient appeared well nourished and normally developed. HEENT: Head exam is unremarkable. Neck is without jugular venous distension. LUNGS: Breath sounds decreased. HEART: Rate and Rhythm are regular. ABDOMEN: soft, nondistended. EXTREMITITES: 2+ edema. Objective - Vital Signs Vital signs: Vital Signs Temp 99.3 F 03/04/20 04:00 Pulse 68 03/04/20 07:53 Resp 24 03/04/20 08:00 BP 110/58 03/04/20 07:00 Pulse Ox 96 03/04/20 07:00 Intake & Output 03/03/20 03/04/20 03/04/20 18:59 06:59 18:59 Intake Total 891.589 663.851 146.523 Output Total 403 185 20 Balance 488.589 478.851 126.523 Weight 103 kg Intake: IV 140 200 40 Dextrose 5% in Water 1, 125 000 ml @ 125 mls/hr IV . Q8H [facility] Rx#:[id number] Furosemide 15 Sodium Chloride 0.9% 1, 200 40 000 ml @ 20 mls/hr IV . Q24H [facility] Rx#:[id number] Intake, IV Titration 71.589 143.851 46.523 Amount propofoL 1,000 mg In 71.589 143.851 46.523 Empty Bag 1 bag @ Titrate IV .Q0M [facility] Rx#: [id number] Tube Feeding 380 320 60 Other 300 Output: Chest Tube Drainage 50 Chest Tube Left Upper 50 Lateral Chest Urine 353 185 20 Other: Voiding Method Indwelling Catheter Indwelling Catheter Indwelling Catheter # Bowel Movements 1 ABP, PAP, CO, CI - Last Documented Arterial Blood Pressure 111/102 - Labs CBC & Chem 7: 03/04/20 05:18 03/04/20 05:18 Labs: Abnormal Lab Results - Last 24 Hours (Table) 03/03/20 03/03/2003/03/20 Range/Units 11:24 17:07 23:31 WBC (3.8-10.6) k/uL RBC (4.30-5.90) m/uL Hgb (13.0-17.5) gm/dL Hct (39.0-53.0) % MCHC (31.0-37.0) g/dL RDW (11.5-15.5) % Plt Count (150-450) k/uL Neutrophils # (Manual) (1.3-7.7) k/uL Monocytes # (Manual) (0-1.0) k/uL Metamyelocytes # (Man) (0) k/uL Myelocytes # (Manual) (0) k/uL Nucleated RBCs (0-0) /100 WBC ABG pH (7.35-7.45) ABG pCO2 (35-45) mmHg ABG pO2 (83-108) mmHg ABG HCO3 (21-25) mmol/L ABG Total CO2 (19-24) mmol/L ABG O2 Saturation (94-97) % Sodium (137-145) mmol/L Potassium (3.5-5.1) mmol/L Chloride (98-107) mmol/L Carbon Dioxide (22-30) mmol/L BUN (9-20) mg/dL Creatinine (0.66-1.25) mg/dL Glucose (74-99) mg/dL POC Glucose (mg/dL) 142 H 117 H 139 H (75-99) mg/dL Calcium (8.4-10.2) mg/dL Total Bilirubin (0.2-1.3) mg/dL AST (17-59) U/L ALT (4-49) U/L Alkaline Phosphatase (38-126) U/L Total Protein (6.3-8.2) g/dL Albumin (3.5-5.0) g/dL 03/04/20 03/04/20 03/04/20 Range/Units 05:18 05:18 05:45 WBC 27.8 H (3.8-10.6) k/uL RBC 2.68 L (4.30-5.90) m/uL Hgb 7.4 L (13.0-17.5) gm/dL Hct 24.3 L (39.0-53.0) % MCHC 30.5 L (31.0-37.0) g/dL RDW 16.3 H (11.5-15.5) % Plt Count 570 H (150-450) k/uL Neutrophils # (Manual) 22.20 H (1.3-7.7) k/uL Monocytes # (Manual) 2.78 H (0-1.0) k/uL Metamyelocytes # (Man) 1.11 H (0) k/uL Myelocytes # (Manual) 0.28 H (0) k/uL Nucleated RBCs 30 H (0-0) /100 WBC ABG pH (7.35-7.45) ABG pCO2 (35-45) mmHg ABG pO2 (83-108) mmHg ABG HCO3 (21-25) mmol/L ABG Total CO2 (19-24) mmol/L ABG O2 Saturation (94-97) % Sodium 127 L (137-145) mmol/L Potassium 5.8 H (3.5-5.1) mmol/L Chloride 97 L (98-107) mmol/L Carbon Dioxide 17 L (22-30) mmol/L BUN 86 H (9-20) mg/dL Creatinine 4.04 H (0.66-1.25) mg/dL Glucose 103 H (74-99) mg/dL POC Glucose (mg/dL) 117 H (75-99) mg/dL Calcium 7.2 L (8.4-10.2) mg/dL Total Bilirubin 2.5 H (0.2-1.3) mg/dL AST 1212 H (17-59) U/L ALT 262 H (4-49) U/L Alkaline Phosphatase 256 H (38-126) U/L Total Protein 4.9 L (6.3-8.2) g/dL Albumin 2.2 L (3.5-5.0) g/dL 03/04/20 Range/Units 06:05 WBC (3.8-10.6) k/uL RBC (4.30-5.90) m/uL Hgb (13.0-17.5) gm/dL Hct (39.0-53.0) % MCHC (31.0-37.0) g/dL RDW (11.5-15.5) % Plt Count (150-450) k/uL Neutrophils # (Manual) (1.3-7.7) k/uL Monocytes # (Manual) (0-1.0) k/uL Metamyelocytes # (Man) (0) k/uL Myelocytes # (Manual) (0) k/uL Nucleated RBCs (0-0) /100 WBC ABG pH 7.33 L (7.35-7.45) ABG pCO2 31 L (35-45) mmHg ABG pO2 140 H (83-108) mmHg ABG HCO3 16 L (21-25) mmol/L ABG Total CO2 17 L (19-24) mmol/L ABG O2 Saturation 98.4 H (94-97) % Sodium (137-145) mmol/L Potassium (3.5-5.1) mmol/L Chloride (98-107) mmol/L Carbon Dioxide (22-30) mmol/L BUN (9-20) mg/dL Creatinine (0.66-1.25) mg/dL Glucose (74-99) mg/dL POC Glucose (mg/dL) (75-99) mg/dL Calcium (8.4-10.2) mg/dL Total Bilirubin (0.2-1.3) mg/dL AST (17-59) U/L ALT (4-49) U/L Alkaline Phosphatase (38-126) U/L Total Protein (6.3-8.2) g/dL Albumin (3.5-5.0) g/dL Microbiology - Last 24 Hours (Table) 03/01/20 09:10 Gram Stain - Preliminary Pleural Fluid Body Fluid Culture - Preliminary 03/01/20 09:10 Blood Culture - Preliminary Blood No Growth after 48 hours 03/02/20 08:30 CSF Gram Stain - Preliminary Cerebral Spinal Fluid CSF Culture - Preliminary 03/02/20 08:30 Acid Fast Bacilli Smear - Final Cerebral Spinal Fluid Acid Fast Bacilli Culture - Preliminary Assessment and Plan Plan: assessment: 1. Acute kidney injury secondary to ATN secondary to diuresis and hemodynamic instability. Creatinine 4.04 today. Baseline creatinine near 1. UA fairly benign. 2. Hypervolemic hyponatremia. 3. A. fib with RVR maintained on oral Cardizem and amiodarone. Stable. 4. Status post fall with pneumothorax, multiple rib fractures, hemoperitoneum and ruptured spleen status post emergent chest tube placement and splenectomy. 5. acute blood loss anemia status post blood transfusions this admission. Stable. 6. Metabolic acidosis secondary to acute kidney injury. 7. 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 8. Hyperkalemia secondary to acute kidney injury and metabolic acidosis. plan: Status post 80 mg IV Lasix this morning. Remains oliguric. Maintain tube feeding. Avoid nephrotoxins. maintain oral bicarb. Consult vascular surgery for temporary dialysis catheter placement. With worsening renal function, oliguria and volume overload, initiate renal replacement therapy. Plan for first treatment of hemodialysis today and second treatment tomorrow.
[2020-03-04] MEDS: MORPHINE SULFATE 2 MG/ML SYRINGE IVP PRN ×3 (09:27→15:04)
[2020-03-04 09:40] LABS: Albumin 2.2 g/dL (3.5-5.0); Calcium 7.2 mg/dL (8.4-10.2); Potassium 5.7 mmol/L (3.5-5.1); Total Bilirubin 2.5 mg/dL (0.2-1.3); Total Protein 4.9 g/dL (6.3-8.2)
[2020-03-04 10:05] LABS: ABG Base Excess -8.4 mmol/L; ABG HCO3 18 mmol/L (21-25); ABG Oxygen Saturation 46.2 % (94-97); ABG PCO2 39 mmHg (35-45); ABG PH 7.28 (7.35-7.45); ABG TCO2 20 mmol/L (19-24)
[2020-03-04 10:08] LABS: ABG PO2 31 mmHg (83-108); Allen Test Performed? no
[2020-03-04] MEDS: ENOXAPARIN 30 MG/0.3 ML SYRINGE SQ SCH (10:37)
[2020-03-04] MEDS: QUEtiapine 50 MG TAB PO SCH (10:47)
[2020-03-04] MEDS: AMIODARONE 200 MG TAB PO SCH ×2 (10:47→20:12)
[2020-03-04] MEDS: DILTIAZEM ORAL 60 MG TAB PO SCH ×2 (10:47→12:52)
[2020-03-04] MEDS: PANTOPRAZOLE 40 MG/10 ML VIAL IVP SCH (10:47)
[2020-03-04] MEDS: CHLORHEXIDINE GLUCONATE 15 ML CUP MUCOUS MEM SCH ×2 (10:47→20:12)
[2020-03-04] MEDS: THIAMINE 100 MG TAB PO SCH (10:48)
[2020-03-04] MEDS: SODIUM BICARBONATE TAB 650 MG TAB PO SCH ×3 (10:48→20:12)
--- NOTE | 2020-03-04 12:38 | P.PN ---
Subjective Progress Note Date: 03/04/20 CHIEF COMPLAINT: Fall with Trauma HISTORY OF PRESENT ILLNESS: Patient seen with Dr. Ivy. This is a 69-year-old male who fell 15 feet off the top of the ladder. Patient's CAT scan was performed showing a large left pneumothorax as well as multiple rib fractures and hemoperitoneum and a ruptured spleen. Patient is status post splenectomy. Patient is status post tracheostomy placement due to his res piratory failure and unable to wean from vent. Patient remains in ICU. His stool was positive for C. diff and started on oral vancomycin. He is afebrile today. Kidney functions had continued to worsen. Creatinine 4.04. He is scheduled for hemodialysis today. He had dialysis catheter placed today. WBC 27.8 hemoglobin 7.4 total bili 2.5 AST 1212 ALT 262 alk phos 256. They're weaning patient off of sedation. PHYSICAL EXAM: VITAL SIGNS: Reviewed. GENERAL: Well-developed in no acute distress. HEENT: No sclera icterus. Extraocular movements grossly intact. Moist buccal mucosa. Head is atraumatic, normocephalic. Trach site clean dry and intact ABDOMEN: Soft. Nondistended. Incision site clean dry and intact NEUROLOGIC: Patient is sedated ASSESSMENT: 1. 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 2. Status post tracheostomy for respiratory failure 3. Status post fall off a ladder with, to chest and abdomen 4. Left-sided pneumothorax has chest tube in place 5. Multiple left-sided rib fractures 6. Alcohol intoxication 7. Acute hypoxic ventilatory dependent respiratory failure. 8. Chronic pain medication 9. Atrial fibrillation with rapid ventricular response 10. C. diff colitis 11. Acute kidney injury with creatinine 4.04 today. Followed closely by nephrology. They've ordered dialysis catheter to be placed and for patient to have hemodialysis today and tomorrow PLAN: -Continue tube feedings -Continue ICU management -Continue oral vancomycin -lovenox for DVT prophylaxis Physician Product Marketing Specialist note has been reviewed by physician. Signing provider agrees with the documented findings, assessment, and plan of care. Objective - Vital Signs Vital signs: Vital Signs Temp 99.3 F 03/04/20 04:00 Pulse 59 L 03/04/20 11:25 Resp 33 H 03/04/20 10:00 BP 108/54 03/04/20 10:00 Pulse Ox 98 03/04/20 10:00 Intake & Output 03/03/20 03/04/20 03/04/20 18:59 06:59 18:59 Intake Total 891.589 663.851 246.523 Output Total 403 185 35 Balance 488.589 478.851 211.523 Weight 103 kg Intake: IV 140 200 80 Dextrose 5% in Water 1, 125 000 ml @ 125 mls/hr IV . Q8H [facility] Rx#:[id number] Furosemide 15 Sodium Chloride 0.9% 1, 200 80 000 ml @ 20 mls/hr IV . Q24H [facility] Rx#:[id number] Intake, IV Titration 71.589 143.851 46.523 Amount propofoL 1,000 mg In 71.589 143.851 46.523 Empty Bag 1 bag @ Titrate IV .Q0M [facility] Rx#: [id number] Tube Feeding 380 320 120 Other 300 Output: Chest Tube Drainage 50 Chest Tube Left Upper 50 Lateral Chest Urine 353 185 35 Other: Voiding Method Indwelling Catheter Indwelling Catheter Indwelling Catheter # Bowel Movements 1 ABP, PAP, CO, CI - Last Documented Arterial Blood Pressure 111/102 - Labs CBC & Chem 7: 03/04/20 05:18 03/04/20 09:03 Labs: Abnormal Lab Results - Last 24 Hours (Table) 03/03/20 03/03/20 03/04/20 Range/Units 17:07 23:31 05:18 WBC 27.8 H (3.8-10.6) k/uL RBC 2.68 L (4.30-5.90) m/uL Hgb 7.4 L (13.0-17.5) gm/dL Hct 24.3 L (39.0-53.0) % MCHC 30.5 L (31.0-37.0) g/dL RDW 16.3 H (11.5-15.5) % Plt Count 570 H (150-450) k/uL Neutrophils # (Manual) 22.20 H (1.3-7.7) k/uL Monocytes # (Manual) 2.78 H (0-1.0) k/uL Metamyelocytes # (Man) 1.11 H (0) k/uL Myelocytes # (Manual) 0.28 H (0) k/uL Nucleated RBCs 30 H (0-0) /100 WBC ABG pH (7.35-7.45) ABG pCO2 (35-45) mmHg ABG pO2 (83-108) mmHg ABG HCO3 (21-25) mmol/L ABG Total CO2 (19-24) mmol/L ABG O2 Saturation (94-97) % Sodium (137-145) mmol/L Potassium (3.5-5.1) mmol/L Chloride (98-107) mmol/L Carbon Dioxide (22-30) mmol/L BUN (9-20) mg/dL Creatinine (0.66-1.25) mg/dL Glucose (74-99) mg/dL POC Glucose (mg/dL) 117 H 139 H (75-99) mg/dL Calcium (8.4-10.2) mg/dL Total Bilirubin (0.2-1.3) mg/dL AST (17-59) U/L ALT (4-49) U/L Alkaline Phosphatase (38-126) U/L Total Protein (6.3-8.2) g/dL Albumin (3.5-5.0) g/dL Triglycerides (<150) mg/dL 03/04/20 03/04/20 03/04/20 Range/Units 05:18 05:45 06:05 WBC (3.8-10.6) k/uL RBC (4.30-5.90) m/uL Hgb (13.0-17.5) gm/dL Hct (39.0-53.0) % MCHC (31.0-37.0) g/dL RDW (11.5-15.5) % Plt Count (150-450) k/uL Neutrophils # (Manual) (1.3-7.7) k/uL Monocytes # (Manual) (0-1.0) k/uL Metamyelocytes # (Man) (0) k/uL Myelocytes # (Manual) (0) k/uL Nucleated RBCs (0-0) /100 WBC ABG pH 7.33 L (7.35-7.45) ABG pCO2 31 L (35-45) mmHg ABG pO2 140 H (83-108) mmHg ABG HCO3 16 L (21-25) mmol/L ABG Total CO2 17 L (19-24) mmol/L ABG O2 Saturation 98.4 H (94-97) % Sodium 127 L (137-145) mmol/L Potassium 5.8 H (3.5-5.1) mmol/L Chloride 97 L (98-107) mmol/L Carbon Dioxide 17 L (22-30) mmol/L BUN 86 H (9-20) mg/dL Creatinine 4.04 H (0.66-1.25) mg/dL Glucose 103 H (74-99) mg/dL POC Glucose (mg/dL) 117 H (75-99) mg/dL Calcium 7.2 L (8.4-10.2) mg/dL Total Bilirubin 2.5 H (0.2-1.3) mg/dL AST 1212 H (17-59) U/L ALT 262 H (4-49) U/L Alkaline Phosphatase 256 H (38-126) U/L Total Protein 4.9 L (6.3-8.2) g/dL Albumin 2.2 L (3.5-5.0) g/dL Triglycerides (<150) mg/dL 03/04/20 03/04/20 Range/Units 09:03 10:04 WBC (3.8-10.6) k/uL RBC (4.30-5.90) m/uL Hgb (13.0-17.5) gm/dL Hct (39.0-53.0) % MCHC (31.0-37.0) g/dL RDW (11.5-15.5) % Plt Count (150-450) k/uL Neutrophils # (Manual) (1.3-7.7) k/uL Monocytes # (Manual) (0-1.0) k/uL Metamyelocytes # (Man) (0) k/uL Myelocytes # (Manual) (0) k/uL Nucleated RBCs (0-0) /100 WBC ABG pH 7.28 L (7.35-7.45) ABG pCO2 (35-45) mmHg ABG pO2 31 L* (83-108) mmHg ABG HCO3 18 L (21-25) mmol/L ABG Total CO2 (19-24) mmol/L ABG O2 Saturation 46.2 L (94-97) % Sodium 129 L (137-145) mmol/L Potassium 5.7 H (3.5-5.1) mmol/L Chloride (98-107) mmol/L Carbon Dioxide 18 L (22-30) mmol/L BUN 90 H (9-20) mg/dL Creatinine 4.40 H (0.66-1.25) mg/dL Glucose 119 H (74-99) mg/dL POC Glucose (mg/dL) (75-99) mg/dL Calcium 7.2 L (8.4-10.2) mg/dL Total Bilirubin 2.5 H (0.2-1.3) mg/dL AST 1360 H (17-59) U/L ALT 292 H (4-49) U/L Alkaline Phosphatase 261 H (38-126) U/L Total Protein 4.9 L (6.3-8.2) g/dL Albumin 2.2 L (3.5-5.0) g/dL Triglycerides 362 H (<150) mg/dL Microbiology - Last 24 Hours (Table) 03/01/20 09:10 Gram Stain - Preliminary Pleural Fluid Body Fluid Culture - Preliminary 03/01/20 09:10 Blood Culture - Preliminary Blood No Growth after 72 hours 03/02/20 08:30 CSF Gram Stain - Preliminary Cerebral Spinal Fluid CSF Culture - Preliminary 03/02/20 08:30 Acid Fast Bacilli Smear - Final Cerebral Spinal Fluid Acid Fast Bacilli Culture - Preliminary
[2020-03-04 12:44] LABS: Glucose,Whole Blood 148 mg/dL (75-99)
--- NOTE | 2020-03-04 13:22 | P.PN ---
Subjective Progress Note Date: 03/04/20 This is a 69-year-old male patient who was working on his gutters when he fell off a 15 foot ladder. This was unwitnessed. He end up calling his who in turn called EMS and the patient was brought in to the emergency department. Upon arrival, the patient was hypotensive and he was in shock. The patient initial chest x-ray showed several left-sided fractures and small amount of subcutaneous air in addition to a left-sided pneumothorax. The x-ray of the pelvis showed no evidence of any fracture or dislocation. The CAT scan of the brain showed age-related atrophy and chronic small vessel ischemic changes without any acute intracranial process. CAT scan of cervical spine showed no acute abnormalities. On and has Been of the cervical spine was done and the bone and soft tissue windows showed no acute abnormalities. There was no evidence of any fracture. Along with multiple left-sided rib fractures third extending to the seventh rib. There was also spending the sedation with estima daxa grade 3 injury the patient. The patient's hemoglobin dropped to 10.5. The patient received a total of 2 L of IV fluid and 40 minutes of packed RBC. Morning hemoglobin today is At 13.4. The patient was taken to the operating room yesterday. The patient underwent a left-sided chest tube insertion. The patient also had splenectomy done and following that the patient was kept intubated on a mechanical ventilator and he was transferred to the intensive care unit. Note that the patient takes morphine outpatient basis and he has chronic pain and chronic narcotic requirements and on outpatient basis he takes morphine sulfate in the form of MS Contin 50 mg every 12 hours. Overnight, the patient was intubated on mechanical ventilator. He was sedated with a combination of propofol and he was also placed on morphine drip after being given several boluses control his pain. This morning, Profore is running at 70 mg per KG per minute. Morphine is running at 8 mg an hour. The patient is on normal saline at rate of 85 mL an hour. The patient has a left sided chest tube. Total amount of output is in order 110 mL of serosanguineous material without evidence of any air leak. The ventilator setting shows an assist- control mode rate of 20 with a tidal volume of 500 and FiO2 of 40% with a PEEP of 5. The patient's FiO2 is down to 40% overnight. The morning blood gases showed a pH of 7.4 with a pCO2 of 37 and pO2 of 121. The chest x-ray from this morning shows that the patient has an indwelling left-sided chest tube without any signs or pneumothorax. There is also a basilar pleural-based opacity along with multiple left-sided rib fractures and ET tube is in a good location. He is at approximately slightly swollen probably related to an infiltrated IV. He did not require any pressors. He remains hemodynamically stable. Lactic acid remains slightly elevated at 2.9 2019, the patient is being seen for a follow-up. The patient this morning is sedated with propofol at 50 mg per KG per minute. The patient is posterior Tibial Insertion. He Has a Bivona Tracheostomy Tube in Place. The Patient Is on a Mechanical Ventilator on Assist Control Mode at the Rate of 20 with a Tidal Volume of 500 and FiO2 of 50% with a PEEP of 10. The Blood Gases from Today Showed a pH of 7.33 with a pCO2 of 31 and pO2 of 140 and this was on FiO2 of 50%. Chest X-Ray Still Showing Bilateral Pulmonary Infiltrates That Are Rather Diffuse. The Previous Bronchoscopy and the bronchioloalveolar lavage showed no microbial growth. Prior to that a sputum sample that was done on 02/27/2020 showed Selina albicans and a sputum sample from 02/22/2020 showed Selina albicans and Selina Krusei. The patient was treated with Eraxis and he completed the course of antibiotics. He was also on IV Zosyn since admission. Antibiotics were discontinued and the patient developed C. diff colitis that was diagnosed on 03/02/2020. He was having significant diarrhea which essentially slowed down as the patient was started on oral vancomycin to 50 mg orally every 6 hours. The abdominal wound is dry clean and intact. No abdominal distention. Urine output is diminished and the patient is producing somewhere between 10-20 mL an hour of urine output. His any significant fluid overload including significant edema in all 4 extremities and scrotal edema. There is also some abdominal wall edema. Surgical wound site is dry clean and intact. There is no signs of any wound infection. The patient is tolerating tube feeds and he is on vital high protein at the rate of 30 mL an hour. LFTs are on the rise. The creatinine is on the resident's currently up to 4.4 on the sodium level is down to 129 and a potassium level is at 5.7. This was discussed with nephrology and the patient is going to initiate hemodialysis today. Mental status is not appropriate still. As part of further investigation, the patient underwent another CAT scan of the brain on 02/27/2020 this was negative for any acute abnormalities and the patient had some new partial investigation of the bilateral mastoid air cells. A lumbar puncture was also done and the patient was found to have CSF protein of 50, no nucleated white cells, 17 RBCs and glucose was 93. Cultures were negative. Objective - Vital Signs Vital signs: Vital Signs Temp 99.3 F 03/04/20 04:00 Pulse 59 L 03/04/20 11:25 Resp 33 H 03/04/20 10:00 BP 108/54 03/04/20 10:00 Pulse Ox 98 03/04/20 10:00 Intake & Output 03/03/20 03/04/20 03/04/20 18:59 06:59 18:59 Intake Total 891.589 663.851 246.523 Output Total 403 185 35 Balance 488.589 478.851 211.523 Weight 103 kg Intake: IV 140 200 80 Dextrose 5% in Water 1, 125 000 ml @ 125 mls/hr IV . Q8H [facility] Rx#:[id number] Furosemide 15 Sodium Chloride 0.9% 1, 200 80 000 ml @ 20 mls/hr IV . Q24H [facility] Rx#:[id number] Intake, IV Titration 71.589 143.851 46.523 Amount propofoL 1,000 mg In 71.589 143.851 46.523 Empty Bag 1 bag @ Titrate IV .Q0M [facility] Rx#: [id number] Tube Feeding 380 320 120 Other 300 Output: Chest Tube Drainage 50 Chest Tube Left Upper 50 Lateral Chest Urine 353 185 35 Other: Voiding Method Indwelling Catheter Indwelling Catheter Indwelling Catheter # Bowel Movements 1 ABP, PAP, CO, CI - Last Documented Arterial Blood Pressure 111/102 - Exam Gen. appearance the patient is sedated, comfortable not in acute respiratory distress. The patient has NG tube in place. The patient also has a trache ostomy tube in place which is a Bivona tracheostomy tube. No evidence of any air leak around the tube. Head exam was generally normal. There was no scleral icterus or corneal arcus. Mucous membranes were moist. Neck was supple and without jugular venous distension, thyromegaly, or carotid bruits. Carotids were easily palpable bilaterally. There was no adenopathy. The patient has a tracheostomy tube in place. Lungs sounds are diminished bilaterally and the patient is a left sided chest tube in place. Chest tube is in a good location. Breath sounds are slightly diminished in left lung base compared to the right. No evidence of any air leak and the chest tube Pleur-evac. Cardiac exam revealed the PMI to be normally situated and sized. The rhythm was regular and no extrasystoles were noted during several minutes of auscultation. The first and second heart sounds were normal and physiologic splitting of the second heart sound was noted. There were no murmurs, rubs, clicks, or gallops. Abdomen is soft and nontender. The patient has a mid abdominal scar which is dry clean and intact. A surgical scar/wound is dry clean and intact. No direct distention. No rebound distention. No guarding. Bowel sounds are hypoactive at this point in time. Examination of the extremities revealed easily palpable radial, femoral and pedal pulses. There was no cyanosis, clubbing and there is development of significant edema in all 4 extremities and the patient also has scrotal edema. Examination of the skin revealed no evidence of significant rashes, suspicious appearing nevi or other concerning lesions. Abdominal wound site is dry clean and intact. Neurologic the patient is arousable. Currently he is well sedated. Pupils are equal and reactive to light. No signs of any head trauma. No nystagmus. No clonus. No Babinski. - Labs CBC & Chem 7: 03/04/20 05:18 03/04/20 09:03 Labs: Abnormal Lab Results - Last 24 Hours (Table) 03/03/20 03/03/20 03/04/20 Range/Units 17:07 23:31 05:18 WBC 27.8 H (3.8-10.6) k/uL RBC 2.68 L (4.30-5.90) m/uL Hgb 7.4 L (13.0-17.5) gm/dL Hct 24.3 L (39.0-53.0) % MCHC 30.5 L (31.0-37.0) g/dL RDW 16.3 H (11.5-15.5) % Plt Count 570 H (150-450) k/uL Neutrophils # (Manual) 22.20 H (1.3-7.7) k/uL Monocytes # (Manual) 2.78 H (0-1.0) k/uL Metamyelocytes # (Man) 1.11 H (0) k/uL Myelocytes # (Manual) 0.28 H (0) k/uL Nucleated RBCs 30 H (0-0) /100 WBC ABG pH (7.35-7.45) ABG pCO2 (35-45) mmHg ABG pO2 (83-108) mmHg ABG HCO3 (21-25) mmol/L ABG Total CO2 (19-24) mmol/L ABG O2 Saturation (94-97) % Sodium (137-145) mmol/L Potassium (3.5-5.1) mmol/L Chloride (98-107) mmol/L Carbon Dioxide (22-30) mmol/L BUN (9-20) mg/dL Creatinine (0.66-1.25) mg/dL Glucose (74-99) mg/dL POC Glucose (mg/dL) 117 H 139 H (75-99) mg/dL Calcium (8.4-10.2) mg/dL Total Bilirubin (0.2-1.3) mg/dL AST (17-59) U/L ALT (4-49) U/L Alkaline Phosphatase (38-126) U/L Total Protein (6.3-8.2) g/dL Albumin (3.5-5.0) g/dL Triglycerides (<150) mg/dL 03/04/20 03/04/20 03/04/20 Range/Units 05:18 05:45 06:05 WBC (3.8-10.6) k/uL RBC (4.30-5.90) m/uL Hgb (13.0-17.5) gm/dL Hct (39.0-53.0) % MCHC (31.0-37.0) g/dL RDW (11.5-15.5) % Plt Count (150-450) k/uL Neutrophils # (Manual) (1.3-7.7) k/uL Monocytes # (Manual) (0-1.0) k/uL Metamyelocytes # (Man) (0) k/uL Myelocytes # (Manual) (0) k/uL Nucleated RBCs (0-0) /100 WBC ABG pH 7.33 L (7.35-7.45) ABG pCO2 31 L (35-45) mmHg ABG pO2 140 H (83-108) mmHg ABG HCO3 16 L (21-25) mmol/L ABG Total CO2 17 L (19-24) mmol/L ABG O2 Saturation 98.4 H (94-97) % Sodium 127 L (137-145) mmol/L Potassium 5.8 H (3.5-5.1) mmol/L Chloride 97 L (98-107) mmol/L Carbon Dioxide 17 L (22-30) mmol/L BUN 86 H (9-20) mg/dL Creatinine 4.04 H (0.66-1.25) mg/dL Glucose 103 H (74-99) mg/dL POC Glucose (mg/dL) 117 H (75-99) mg/dL Calcium 7.2 L (8.4-10.2) mg/dL Total Bilirubin 2.5 H (0.2-1.3) mg/dL AST 1212 H (17-59) U/L ALT 262 H (4-49) U/L Alkaline Phosphatase 256 H (38-126) U/L Total Protein 4.9 L (6.3-8.2) g/dL Albumin 2.2 L (3.5-5.0) g/dL Triglycerides (<150) mg/dL 03/04/20 03/04/20 03/04/20 Range/Units 09:03 10:04 12:43 WBC (3.8-10.6) k/uL RBC (4.30-5.90) m/uL Hgb (13.0-17.5) gm/dL Hct (39.0-53.0) % MCHC (31.0-37.0) g/dL RDW (11.5-15.5) % Plt Count (150-450) k/uL Neutrophils # (Manual) (1.3-7.7) k/uL Monocytes # (Manual) (0-1.0) k/uL Metamyelocytes # (Man) (0) k/uL Myelocytes # (Manual) (0) k/uL Nucleated RBCs (0-0) /100 WBC ABG pH 7.28 L (7.35-7.45) ABG pCO2 (35-45) mmHg ABG pO2 31 L* (83-108) mmHg ABG HCO3 18 L (21-25) mmol/L ABG Total CO2 (19-24) mmol/L ABG O2 Saturation 46.2 L (94-97) % Sodium 129 L (137-145) mmol/L Potassium 5.7 H (3.5-5.1) mmol/L Chloride (98-107) mmol/L Carbon Dioxide 18 L (22-30) mmol/L BUN 90 H (9-20) mg/dL Creatinine 4.40 H (0.66-1.25) mg/dL Glucose 119 H (74-99) mg/dL POC Glucose (mg/dL) 148 H (75-99) mg/dL Calcium 7.2 L (8.4-10.2) mg/dL Total Bilirubin 2.5 H (0.2-1.3) mg/dL AST 1360 H (17-59) U/L ALT 292 H (4-49) U/L Alkaline Phosphatase 261 H (38-126) U/L Total Protein 4.9 L (6.3-8.2) g/dL Albumin 2.2 L (3.5-5.0) g/dL Triglycerides 362 H (<150) mg/dL Microbiology - Last 24 Hours (Table) 03/01/20 09:10 Gram Stain - Preliminary Pleural Fluid Body Fluid Culture - Preliminary 03/01/20 09:10 Blood Culture - Preliminary Blood No Growth after 72 hours 03/02/20 08:30 CSF Gram Stain - Preliminary Cerebral Spinal Fluid CSF Culture - Preliminary Assessment and Plan Plan: 1 fall off a ladder with significant trauma to the chest and abdomen. The patient had sustained left-sided rib fractures, splenic rupture postsplenectomy, and a left-sided pneumothorax. 2 traumatic grade 3 laceration of the spleen along with hemoperitoneum and the patient is post splenectomy and the patient is postop day and the patient had the surgery on 02/17/2020. 3 traumatic left-sided rib fractures third drip through seventh rib along with a 30% left-sided pneumothorax post chest tube insertion with adequate expansion of the left lung. The left-sided chest tube was removed. 4 shock at the time of admission, essentially due to hemorrhagic shock, recovered currently on no pressors 5 Acute kidney injury and the creatinine is on the rise as the patient's creatinine is at 4.4 and the patient has developed some hyperkalemia with a potassium level of 5.7 and 9 gap metabolic acidosis. 6 acute ventilator-dependent respiratory failure, hypoxic, secondary to above. The patient had diffuse bilateral pulmonary infiltrates. All of the cultures of been negative with exception of Selina and the patient completed a course of Eraxis 7 chronic neck pain and the patient had been taken MS Contin on outpatient basis 15 mg twice a day 8 coronary artery disease with a previous bypass surgery 9 hyperlipidemia 10 BPH 11 delirium tremens as the patient is suspected alcoholism 12 A. fib RVR, converted to sinus rhythm and the patient is off amiodarone and echocardiogram shows a normal LV function 13 leukocytosis, secondary to C. diff colitis 14 diarrhea secondary to C. diff colitis currently on oral vancomycin 15 anemia, multifactorial, chronic, hemoglobin is at 7.4 16, acute hepatic injury, shock liver with LFTs being on the rise. Plan Continue ventilator support without any changes Sedation holiday on a daily basis The patient will have a hemodialysis catheter inserted today and the patient was started on hemodialysis. Will monitor the electrolytes Check CPK Check triglyceride level The IV Fluids to KVO Cardiac rhythm remains sinus Stop Lipitor in regards to the rise in the LFTs and keep the amiodarone for now Continue enteral feeding for nutritional support Continue oral vancomycin regarding C. diff colitis Continue enteral feeding for nutritional support We'll continue to follow. The patient is critically ill, and the patient will monitored very closely in the ICU. This is a critically care evaluation that was on a more than 30 minutes. Time with Patient: Greater than 30
--- NOTE | 2020-03-04 13:58 | CONS ---
DATE OF CONSULTATION: 03/04/2020 This is a 70-year-old gentleman who has a trach and has been intubated. I was called in for placement of urgent dialysis catheter. The patient had a history of fall at home and patient has a pneumothorax and ruptured spleen. Patient went for surgical intervention for ruptured spleen and hemoperitoneum. PAST MEDICAL HISTORY: Includes history of hyperlipidemia. SURGICAL HISTORY: Coronary artery bypass graft in the past. PERSONAL HISTORY: Nonsmoker. None reported for alcohol use. Patient was seen in the Intensive Care unit. The patient has a tracheostomy. Chest is clear, first and sound sound is present. Patient has an abdomen exploration for surgery and patient had a ruptured spleen. Patient's femorals are not palpable because of marked swelling of the both lower extremities. PLAN: Placement of the dialysis catheter, risks and complications discussed. MMODL / IJN: [id number] / MTDD
[2020-03-04] MEDS ORDERED: NOREPINEPHRIN 4 MG-0.9% NS PMX 4 MG/250 ML ML IV ONE (14:58)
[2020-03-04] MEDS ORDERED: SODIUM BICARB 8.4% 50 ML SYR (1 MEQ/ML) ONE ×2 (15:08→15:30)
[2020-03-04] MEDS ORDERED: HEPARIN SODIUM,PORCINE 5,000 UNIT/ML 1 ML VIAL ONE (15:30)
[2020-03-04] MEDS ORDERED: CALCIUM CHLORIDE 100 MG/ML 10 ML SYRINGE ONE (15:30)
[2020-03-04 15:32] LABS: ABG Base Excess -8.3 mmol/L; ABG HCO3 17 mmol/L (21-25); ABG Oxygen Saturation 93.5 % (94-97); ABG PCO2 27 mmHg (35-45); ABG PH 7.39 (7.35-7.45); ABG PO2 73 mmHg (83-108); ABG TCO2 18 mmol/L (19-24); Allen Test Performed? Yes
[2020-03-04 15:45] LABS: Total Bilirubin 2.5 mg/dL (0.2-1.3); Total Protein 4.5 g/dL (6.3-8.2)
[2020-03-04 15:55] LABS: Potassium 6.3 mmol/L (3.5-5.1)
[2020-03-04] MEDS ORDERED: CALCIUM CHLORIDE 100 MG/ML 10 ML SYRINGE IVP STA (16:11)
[2020-03-04] MEDS: NOREPINEPHRINE 8 MG in SODIUM CHLORIDE 0.9% 250 ML IV SCH ×2 (16:19→16:24)
--- NOTE | 2020-03-04 16:30 | P.PN ---
Subjective Progress Note Date: 03/04/20 Patient was seen for a follow-up. Patient has been on sedation holiday since 8 AM. At 4 PM he shouldn't developed third-degree heart block, now back on sedation with 45 g of propofol. Patient minimally reactive as per examination. Continues to be intubated. Patient has multiple medical issues. Patient is getting dialysis. Patient has developed acute renal failure. Objective - Vital Signs Vital signs: Vital Signs Temp 98.6 F 03/04/20 12:00 Pulse 71 03/04/20 13:00 Resp 35 H 03/04/20 13:00 BP 109/59 03/04/20 13:00 Pulse Ox 97 03/04/20 13:00 Intake & Output 03/03/20 03/04/20 03/04/20 18:59 06:59 18:59 Intake Total 891.589 663.851 276.523 Output Total 403 185 35 Balance 488.589 478.851 241.523 Weight 103 kg 103 kg Intake: IV 140 200 80 Dextrose 5% in Water 1, 125 000 ml @ 125 mls/hr IV . Q8H [facility] Rx#:[id number] Furosemide 15 Sodium Chloride 0.9% 1, 200 80 000 ml @ 20 mls/hr IV . Q24H [facility] Rx#:[id number] Intake, IV Titration 71.589 143.851 46.523 Amount propofoL 1,000 mg In 71.589 143.851 46.523 Empty Bag 1 bag @ Titrate IV .Q0M [facility] Rx#: [id number] Tube Feeding 380 320 150 Other 300 Output: Chest Tube Drainage 50 Chest Tube Left Upper 50 Lateral Chest Urine 353 185 35 Other: Voiding Method Indwelling Catheter Indwelling Catheter Indwelling Catheter # Bowel Movements 1 ABP, PAP, CO, CI - Last Documented Arterial Blood Pressure 111/102 - Exam Patient on mechanical ventilation. Patient's pupils are round and reacting. Patient has mild corneal reflex. Patient grimaces to painful similar but no withdrawal. Exam limited because patient on sedation 45 g of propofol. - Labs CBC & Chem 7: 03/04/20 05:18 03/04/20 15:05 Labs: Abnormal Lab Results - Last 24 Hours (Table) 03/03/20 03/03/20 03/04/20 Range/Units 17:07 23:31 05:18 WBC 27.8 H (3.8-10.6) k/uL RBC 2.68 L (4.30-5.90) m/uL Hgb 7.4 L (13.0-17.5) gm/dL Hct 24.3 L (39.0-53.0) % MCHC 30.5 L (31.0-37.0) g/dL RDW 16.3 H (11.5-15.5) % Plt Count 570 H (150-450) k/uL Neutrophils # (Manual) 22.20 H (1.3-7.7) k/uL Monocytes # (Manual) 2.78 H (0-1.0) k/uL Metamyelocytes # (Man) 1.11 H (0) k/uL Myelocytes # (Manual) 0.28 H (0) k/uL Nucleated RBCs 30 H (0-0) /100 WBC ABG pH (7.35-7.45) ABG pCO2 (35-45) mmHg ABG pO2 (83-108) mmHg ABG HCO3 (21-25) mmol/L ABG Total CO2 (19-24) mmol/L ABG O2 Saturation (94-97) % Sodium (137-145) mmol/L Potassium (3.5-5.1) mmol/L Chloride (98-107) mmol/L Carbon Dioxide (22-30) mmol/L BUN (9-20) mg/dL Creatinine (0.66-1.25) mg/dL Glucose (74-99) mg/dL POC Glucose (mg/dL) 117 H 139 H (75-99) mg/dL Calcium (8.4-10.2) mg/dL Total Bilirubin (0.2-1.3) mg/dL AST (17-59) U/L ALT (4-49) U/L Alkaline Phosphatase (38-126) U/L Total Protein (6.3-8.2) g/dL Albumin (3.5-5.0) g/dL Triglycerides (<150) mg/dL 03/04/20 03/04/20 03/04/20 Range/Units 05:18 05:45 06:05 WBC (3.8-10.6) k/uL RBC (4.30-5.90) m/uL Hgb (13.0-17.5) gm/dL Hct (39.0-53.0) % MCHC (31.0-37.0) g/dL RDW (11.5-15.5) % Plt Count (150-450) k/uL Neutrophils # (Manual) (1.3-7.7) k/uL Monocytes # (Manual) (0-1.0) k/uL Metamyelocytes # (Man) (0) k/uL Myelocytes # (Manual) (0) k/uL Nucleated RBCs (0-0) /100 WBC ABG pH 7.33 L (7.35-7.45) ABG pCO2 31 L (35-45) mmHg ABG pO2 140 H (83-108) mmHg ABG HCO3 16 L (21-25) mmol/L ABG Total CO2 17 L (19-24) mmol/L ABG O2 Saturation 98.4 H (94-97) % Sodium 127 L (137-145) mmol/L Potassium 5.8 H (3.5-5.1) mmol/L Chloride 97 L (98-107) mmol/L Carbon Dioxide 17 L (22-30) mmol/L BUN 86 H (9-20) mg/dL Creatinine 4.04 H (0.66-1.25) mg/dL Glucose 103 H (74-99) mg/dL POC Glucose (mg/dL) 117 H (75-99) mg/dL Calcium 7.2 L (8.4-10.2) mg/dL Total Bilirubin 2.5 H (0.2-1.3) mg/dL AST 1212 H (17-59) U/L ALT 262 H (4-49) U/L Alkaline Phosphatase 256 H (38-126) U/L Total Protein 4.9 L (6.3-8.2) g/dL Albumin 2.2 L (3.5-5.0) g/dL Triglycerides (<150) mg/dL 03/04/20 03/04/20 03/04/20 Range/Units 09:03 10:04 12:43 WBC (3.8-10.6) k/uL RBC (4.30-5.90) m/uL Hgb (13.0-17.5) gm/dL Hct (39.0-53.0) % MCHC (31.0-37.0) g/dL RDW (11.5-15.5) % Plt Count (150-450) k/uL Neutrophils # (Manual) (1.3-7.7) k/uL Monocytes # (Manual) (0-1.0) k/uL Metamyelocytes # (Man) (0) k/uL Myelocytes # (Manual) (0) k/uL Nucleated RBCs (0-0) /100 WBC ABG pH 7.28 L (7.35-7.45) ABG pCO2 (35-45) mmHg ABG pO2 31 L* (83-108) mmHg ABG HCO3 18 L (21-25) mmol/L ABG Total CO2 (19-24) mmol/L ABG O2 Saturation 46.2 L (94-97) % Sodium 129 L (137-145) mmol/L Potassium 5.7 H (3.5-5.1) mmol/L Chloride (98-107) mmol/L Carbon Dioxide 18 L (22-30) mmol/L BUN 90 H (9-20) mg/dL Creatinine 4.40 H (0.66-1.25) mg/dL Glucose 119 H (74-99) mg/dL POC Glucose (mg/dL) 148 H (75-99) mg/dL Calcium 7.2 L (8.4-10.2) mg/dL Total Bilirubin 2.5 H (0.2-1.3) mg/dL AST 1360 H (17-59) U/L ALT 292 H (4-49) U/L Alkaline Phosphatase 261 H (38-126) U/L Total Protein 4.9 L (6.3-8.2) g/dL Albumin 2.2 L (3.5-5.0) g/dL Triglycerides 362 H (<150) mg/dL 03/04/20 03/04/20 Range/Units 15:05 15:30 WBC (3.8-10.6) k/uL RBC (4.30-5.90) m/uL Hgb (13.0-17.5) gm/dL Hct (39.0-53.0) % MCHC (31.0-37.0) g/dL RDW (11.5-15.5) % Plt Count (150-450) k/uL Neutrophils # (Manual) (1.3-7.7) k/uL Monocytes # (Manual) (0-1.0) k/uL Metamyelocytes # (Man) (0) k/uL Myelocytes # (Manual) (0) k/uL Nucleated RBCs (0-0) /100 WBC ABG pH (7.35-7.45) ABG pCO2 27 L (35-45) mmHg ABG pO2 73 L (83-108) mmHg ABG HCO3 17 L (21-25) mmol/L ABG Total CO2 18 L (19-24) mmol/L ABG O2 Saturation 93.5 L (94-97) % Sodium 129 L (137-145) mmol/L Potassium 6.3 H* (3.5-5.1) mmol/L Chloride (98-107) mmol/L Carbon Dioxide 17 L (22-30) mmol/L BUN 93 H (9-20) mg/dL Creatinine 4.47 H (0.66-1.25) mg/dL Glucose 114 H (74-99) mg/dL POC Glucose (mg/dL) (75-99) mg/dL Calcium 7.0 L (8.4-10.2) mg/dL Total Bilirubin 2.5 H (0.2-1.3) mg/dL AST 1760 H (17-59) U/L ALT 373 H (4-49) U/L Alkaline Phosphatase 229 H (38-126) U/L Total Protein 4.5 L (6.3-8.2) g/dL Albumin 2.0 L (3.5-5.0) g/dL Triglycerides (<150) mg/dL Microbiology - Last 24 Hours (Table) 03/02/20 08:30 CSF Gram Stain - Preliminary Cerebral Spinal Fluid CSF Culture - Preliminary 03/01/20 09:10 Gram Stain - Preliminary Pleural Fluid Body Fluid Culture - Preliminary 03/01/20 09:10 Blood Culture - Preliminary Blood No Growth after 72 hours Assessment and Plan Assessment: * Status post fall off ladder with left rib fracture from the third to seventh r ib, left-sided pneumothorax and splenic injury, status post splenectomy. * Toxic metabolic encephalopathy * Acute renal failure. * Ventilator-dependent respiratory failure, status post tracheostomy. * Atrial fibrillation. Plan: * Patient has numerous underlying medical/surgical conditions. Patient has severe toxic metabolic encephalopathy. * CT scan of head from 02/27/2020 showed no acute process. Partial opacification of bilateral mastoid air cells, correlate clinically for mastoiditis. Patient has received IV antibiotics. * CSF negative for any infection with WBC 1, RBC 17, protein 50. Glucose 93. * B12 1496, folate 9.6, TSH is normal. * Patient has C. diff positive. On oral vancomycin. * Patient has been started on dialysis for acute renal failure. * As there is no active neurological issue, we will sign off. Please call neurology if any further concerns.
--- NOTE | 2020-03-04 16:31 | OP ---
OPERATIVE REPORT PREOPERATIVE DIAGNOSES: 1. Acute chronic renal failure. 2. History of trauma with pneumothorax and ruptured spleen. PROCEDURE PERFORMED: Ultrasound-guided dialysis catheter placement via right femoral approach. PROCEDURE DESCRIPTION: This patient was seen in the intensive care unit. Right groin was prepped and draped in a sterile manner. Ultrasound-guided micropuncture was introduced into the right femoral vein. Micropuncture guidewire was passed and after that we passed a regular guidewire. Then dilator was advanced on top of the guidewire. After that we placed a dialysis catheter on the top of the guidewire, flushed with heparin saline and hep- locked, secured with 3-0 nylon. Dressing was applied. Patient tolerated the procedure well. MMODL / IJN: [id number] /
--- NOTE | 2020-03-04 16:40 | P.PCN ---
Date of Procedure: 03/04/20 Preoperative Diagnosis: Acute hypotension Postoperative Diagnosis: Acute hypotension/shock Procedure(s) Performed: Indication: Hemodynamic monitoring. A time-out was completed verifying correct patient, procedure, site, positioning, and implant(s) or special equipment if applicable. Allens test was performed to ensure adequate perfusion. The patients left groin was prepped and draped in sterile fashion. 1% Lidocaine was used to anesthetize the area. An 18G Arrow arterial line was introduced into the left femoral artery. The catheter was threaded over the guide wire and the needle was removed with appropriate pulsatile blood return. Blood loss was minimal. The catheter was then sutured in place to the skin and a sterile dressing applied. Perfusion to the extremity distal to the point of catheter insertion was checked and found to be adequate. The patient tolerated the procedure well and there were no complications. Indication: Hemodynamic monitoring/Intravenous access. A time-out was completed verifying correct patient, procedure, site, positioning, and implant(s) or special equipment if applicable. The patient was placed in a dependent position appropriate for central line placement based on the vein to be cannulated. The patients left groin was prepped and draped in sterile fashion. 1% Lidocaine was used to anesthetize the surrounding skin area. A triple lumen 9F Cordis catheter was introduced into the femoral vein using Seldinger technique. The catheter was threaded smoothly over the guide wire and appropriate blood return was obtained. Each lumen of the catheter was evacuated of air and flushed with sterile saline. The catheter was then sutured in place to the skin and a sterile dressing applied. Perfusion to the extremity distal to the point of catheter insertion was checked and found to be adequate. The patient tolerated the procedure well and there were no complications. Anesthesia: local Surgeon: Ayanna Royal Estimated Blood Loss (ml): 0 Pathology: none sent Condition: critical Disposition: ICU
--- NOTE | 2020-03-04 16:55 | PN ---
PROGRESS NOTE DATE OF SERVICE: 03/04/2020 REASON FOR FOLLOWUP: 1. C difficile colitis. 2. Post splenectomy. INTERVAL HISTORY: The patient is currently afebrile. The patient is hemodynamically stable, not on any pressor support. FiO2 is currently stable at 50%. No significant purulent secretions in the ET have been reported or any worsening diarrhea. However, the patient apparently did have worsening of his kidney function and is scheduled for a dialysis catheter placement and dialysis. PHYSICAL EXAMINATION: His blood pressure is 109/59 with a pulse of 71, temperature 98.6. He is 97% on 50% FiO2. General description is an elderly male lying in bed in no distress. RESPIRATORY SYSTEM: Unlabored breathing with decreased breath sounds at the base. No wheeze. HEART: S1, S2. Regular rate and rhythm. ABDOMEN: Soft. Mild distention. No guarding or rigidity. LABS: White count down to 27.8. Creatinine is up to 4.47. DIAGNOSTIC IMPRESSION AND PLAN: Patient with an elevated white count which is multifactorial in this patient who did have diarrhea with a concern for the Clostridium difficile colitis, which has been positive. The patient did have worsening of his kidney function, for which the patient's plan is dialysis catheter placement. He also has elevated liver enzymes started with a possible shock liver. Patient at current has a guarded prognosis. We will keep the patient on oral vancomycin and will monitor his clinical course closely. CARLIE / DONATON: [phone] /
[2020-03-04] MEDS ORDERED: PNEUMOCOCCAL VACC-PNEUMOVAX 23 25 MCG/0.5 ML VIAL IM ONE (17:00)
[2020-03-04] MEDS ORDERED: HAEMOPH B POLY CONJ-TET TOX/PF 10 MCG/0.5 ML VIAL IM ONE (17:00)
[2020-03-04] MEDS ORDERED: MENING VAC A,C,Y,W-135 DIP/PF 4 MCG/0.5 ML VIAL IM ONE (17:00)
[2020-03-04] MEDS: SODIUM CHLORIDE 0.9% 1,000 ML IV SCH (17:54)
[2020-03-04 18:04] LABS: Glucose,Whole Blood 113 mg/dL (75-99)
--- NOTE | 2020-03-04 19:05 | P.PN ---
Subjective 69-year-old male was cleaning gutters fell from skin feet ladder was brought into emergency department found to have several left-sided fractures left-sided pneumothorax with a left-sided chest tube presently patient is presently intubated patient has multiple left-sided fractures from third to seventh rib patient also had a splenectomy for splenic injury. Patient is presently sedated with propofol and also morphine drip patient is presently on ventilatory support blood gases showed normal pH pCO2 and pO2 are within normal limits as well pat ient is presently onZosyn patient had lactic acidosis secondary tolactated Ringer's. Patient is hyperchloremic because of which probably will start him on half-normal saline. 02/19/2020 Patient is expected today and shortly after that patient didn't tolerate that and patient ended up undergoing an atrial fibrillation patient was started on amiodarone patient was subsequently reintubated. Patient is bit hyponatremic because of extensive switching the IV fluids to normal saline instead of half- normal saline. Patient is also getting amiodarone. D5 water. Patient is not requiring any pressors at this time. Please refer to intensive is documentation for further details of ventilator settings. 02/20/2020 Patient developed ongoing trial patient is having sedation vacation patient heart rate is better controlled patient overall clinical condition is bit better today 02/21/2020 Patient still in the ICU, he is intubated and sedated. Chest tube is in place and it hasn't output about 325 in 24 hours, propofol was switched to Paradox by critical care team. Pulmonary/critical care troponin measuring the event, sugar was low but most likely this is a false reading because patient is edematous. Surgical wound in the middle of the abdomen it looks clean and dry and closed. Patient is getting IV morphine. Creatinine and electrolytes are normal. Echocardiogram showing ejection fraction of 55-60% with moderate to severe mitral regurgitation His WBCs 17.3 K. Liver enzymes are trending down 02/22/2020 Patient the ICU, he could not tolerate the current sedative and he had to be placed back on the propofol, he got agitated overnight and he needed restraints. These making about 1 5200 mL of chest tube drainage every 12 hours Lasix is added. Also he had low-grade temperature and mild increase in WBC, he still on Zosyn and IV on the case. Cultures are negative so far 02/23/2020 Patient remains in the ICU, intubated and sedated on a propofol, he looks calm. Patient undergoing sedation holiday and pulmonary team managing his vent He still has low-grade fever 99.7, leukocytosis or interrupted 22K. BMP is unremarkable. Cultures are negative so far, infectious disease and pulmonary/critical care team on the case. Chest x-ray showing unchanged radiographic appearance of tubes and lines, mildly improved aeration of bilateral lung bases with persistent small bilateral pleural effusions and bibasilar air space opacity and multiple left-sided displaced rib fractures Currently he is on Zosyn 02/24/2020 Patient still intubated and sedated, he undergoing sedation holiday and he wakes up then to be breathing trial Patient is improving on Zosyn, no fever however culture are negative. Patient is still getting intermittent feeding. Chest tube still on the left side with about 150-200 mL of discharge every 12 hour period , surgery team on the case patient may need a PEG tube and tracheostomy if he fails a voiding trial 02/24 Patient remains in the ICU intubated and sedated, despite being on Precedex. Today he developed A. fib with RVR, he has history of A. fib. before, he Is currently not on anticoagulation other than DVT prophylaxis with Lovenox due to his hematoma. Patient was started on amiodarone drip, his rate is controlled, is controlled. Computed tomography scan of the abdomen is requested to assess his hematoma. He still has fever at 100.1 Hemoglobin is 8.8, which is stable compared to yesterday. PH normal 7.4 with normal pCO2 at 43 and low pO2 at 68, BMP is unremarkable and sugar is controlled. Surgical team were consulted for possible PEG and tracheostomy Prognosis remains very guarded. 02/26/20 Patient still on ventilation, he got tracheostomy yesterday and hysterectomy that well. Sedation is off however patient is restless and agitated, however patient does not follow, He developed another atrial fibrillation with rapid rate and he was started on amiodarone drip at 0.5. Cardizem may be added as well. Cardiology of the case Surgery team are following the patient for possible PEG placement. Possibly today. Patient remains on Zosyn, amiodarone, which can be switched to oral per [employer] Tech and Cardizem as needed 02/28/20 Patient remains in the ICU, his status post tracheostomy, PEG tube placement was postponed f by surgery team. He still has PICC line and left-sided chest tube with more than 100 mL of fluid draining but it is serous. Antibiotics has changed from Zosyn to vancomycin and cefepime, catheter tip culture and sensitivity was sent. CT of the abdomen and pelvis showing increased left basilar, CT. Neurologist neurologist evaluated the patient and EEG is negative for epileptiform activity but showing severe encephalopathy WBC is 19 KI patient has no fever today Neurologist recommended MRI of the brain and cervical spine when she is more stable 02/29/20 Patient remains intubated and sedated on a propofol, tracheostomy in this place, also left-sided chest tube with service discharge only. Patient underwent bronchoscopy and bronchoalveolar lavage of the right upper lobe, and follow-up the results Patient is hemodynamically stable WBC still 19 K and sodium 148. Patient remains on antibiotics per infectious disease recommendation. And she was followed also by pulmonary/critical care team, surgery team. 03/01/20 Patient remains intubated and sedated, any target dose of sedation actually. He still have PICC line, tracheostomy, left chest tube service discharge and has Nolan catheter PEG tube placement was postponed currently. Patient showing low-grade fever today. And WBC went up to 20 9K. Creatinine is normal and sodium 148. He is still on mechanical ventilation and pulmonary/ critical care team following the case. Currently his on 10 PEEP and FiO2 of 60%. EEG showing no epileptiform activity and moderate to severe encephalopathy. Neurology service on the case and the recommended to proceed with lumbar puncture. Also follow-up. Bronchoscopy lavage results Possible discontinue the chest tube for pulmonary service. Patient is followed by several consultants including pulmonary, cardiology, infectious disease, neurology and surgery 03/02/20 Patient remains intubated and sedated on a propofol, no sedation holiday oriented trial today Patient had a lumbar puncture today and results are likely showing meningitis or encephalitis per neurology was on the case. Patient continued to have left-sided chest tube was satisfactory draining, tracheostomy in place, he has to proceeding, PEG placement is postponed for now. he was started on Lasix drip, also I continued on Cardizem drip. Infectious disease on the case and added oral vancomycin today for C. diff colitis. His IV vancomycin and cefepime were stopped per infectious disease recommendation. Prognosis remains guarded Patient is been followed by several consultants including pulmonary/critical care team, neurology, infectious disease, cardiology and surgery teams 03/03/20 Patient intubated and sedated in the ICU, 1 hour sedation holiday was done and patient could not tolerate that well, he was tachypneic, tachycardic and he does not follow commands. Renal function is worsening today to 2.8, nephrology consult was placed. Left-sided chest tube was taken out. PICC line is in place, Nolan catheter is in place. Sugar is controlled. Generally the patient is not improving and his condition become more complex, despite several treatments and sore consultants on the case included pulmonary/critical care team, general surgery, senior data analyst, infectious disease, neurologist and merchandising execution manager And management and further recommendation. Lasix drip was stopped today. He remains on oral vancomycin, vitamin daily, Seroquel, Cardizem 60 mg by mouth 4 times a day. On amiodarone and Lipitor 03/04/20 Patient remains critically ill in the ICU, still intubated and sedated, he underwent sedation holiday this morning, also hemodialysis catheter was placed for him for worsening creatinine to 4.4 today associated with only Curia and generalized edema, and hemodialysis was started today. Also his hospital course was complicated today by third degree heart block, patient has to be started on Levophed with central line and arterial line placed Patient remains on oral vancomycin for C. diff. Consultants on the case including pulmonary/critical care, cardiology, nephrology, neurology, surgery Review of system: N/a Active Medications Generic Name Dose Route Start Last Admin Trade Name Freq PRN Reason Stop Dose Admin Acetaminophen 650 mg 02/20/20 22:00 03/01/20 13:25 Tylenol Tab PO 650 mg Q6HR PRN Administration Fever and/ or Pain Albuterol/Ipratropium 3 ml 03/02/20 12:00 03/04/20 15:43 Duoneb 0.5 Mg-3 Mg/3 Ml Soln INHALATION Not Given RT-Q4H BETTINA Amiodarone HCl 200 mg 02/27/20 09:00 03/04/20 10:47 Cordarone PO 200 mg BID BETTINA Administration Chlorhexidine Gluconate 15 ml 02/18/20 12:00 03/04/20 10:47 Peridex MUCOUS MEM 15 ml BID BETTINA Administration Enoxaparin Sodium 30 mg 03/04/20 09:00 03/04/20 10:37 Lovenox SQ Not Given DAILY BETTINA Finasteride 5 mg 02/18/20 21:00 03/03/20 21:37 Proscar PO 5 mg HS BETTINA Administration Haemophilus b Polysacch Conj Vacc 10 mcg 03/05/20 09:00 Haemoph B Poly Conj-Tet Tox/Pf 10 Mcg/0.5 Ml Vial IM 03/05/20 09:01 .ONCE ONE Sodium Chloride 1,000 mls @ 20 mls/hr 02/19/20 11:45 03/04/20 17:54 Saline 0.9% IV 20 mls/hr .Q24H BETTINA Administration Norepinephrine Bitartrate 8 mg 258 mls @ 9.965 mls/hr 03/04/20 15:00 03/04/20 16:24 / Sodium Chloride IV 0.2 mcg/kg/min .Q24H BETTINA 39.861 mls/hr Administration Protocol 0.05 MCG/KG/MIN Propofol 1,000 mg/ IV Solution 100 mls @ 0 mls/hr 03/04/20 18:15 03/04/20 18:43 IV 20 mcg/kg/min .Q0M BETTINA 12.36 mls/hr Administration Protocol Titrate Insulin Aspart 0 unit 02/18/20 13:00 03/04/20 18:03 Novolog SQ Not Given Q6HR [facility] Protocol Meningococcal Polysaccharide Vacc 4 mcg 03/05/20 09:00 Mening Vac A,C,Y,W-135 Dip/Pf 4 Mcg/0.5 Ml Vial IM 03/05/20 09:01 .ONCE ONE Miscellaneous Information 1 each 02/18/20 05:19 Magnesium Per Protocol MISCELLANE DAILY PRN Per Protocol Protocol Miscellaneous Information 1 each 02/19/20 05:38 Potassium Per Protocol MISCELLANE DAILY PRN Per Protocol Protocol Morphine Sulfate 2 mg 03/02/20 11:48 03/04/20 15:04 Morphine Sulfate (Inj) IVP 2 mg Q2H PRN Administration Pain/Discomfort Morphine Sulfate 4 mg 03/02/20 11:48 Morphine Sulfate (Inj) IVP Q2H PRN Pain Naloxone HCl 0.2 mg 02/17/20 19:37 Narcan IV Q2M PRN Opioid Reversal Pantoprazole Sodium 40 mg 03/03/20 09:00 03/04/20 10:47 Protonix IVP 40 mg DAILY BETTINA Administration Pneumococcal Polyvalent Vaccine 25 mcg 03/05/20 09:00 Pneumococcal Vacc-Pneumovax 23 25 Mcg/0.5 Ml Vial IM 03/05/20 09:01 .ONCE ONE Sodium Bicarbonate 650 mg 03/03/20 09:15 03/04/20 18:05 Sodium Bicarbonate Tab PO 650 mg TID BETTINA Administration Sodium Chloride 10 ml 02/26/20 15:12 Saline Flush IV Q4HR PRN PICC Line Sodium Chloride 10 ml 03/04/20 09:00 03/04/20 10:48 Saline Flush IV 10 ml WEEKLY BETTINA Administration Sodium Chloride 20 ml 02/26/20 15:12 Saline Flush IV Q4HR PRN PICC Line Tamsulosin HCl 0.8 mg 02/18/20 21:00 03/03/20 21:37 Flomax PO Not Given HS BETTINA Thiamine HCl 100 mg 02/27/20 10:45 03/04/20 10:48 Vitamin B-1 PO 100 mg DAILY BETTINA Administration Vancomycin HCl 250 mg 03/02/20 18:00 03/04/20 18:06 Vancomycin Oral Solution PO 250 mg Q6HR BETTINA Administration Objective - Vital Signs Vital signs: Vital Signs Temp 98.6 F 03/04/20 12:00 Pulse 71 03/04/20 13:00 Resp 35 H 03/04/20 13:00 BP 109/59 03/04/20 13:00 Pulse Ox 97 03/04/20 13:00 Intake & Output 03/03/20 03/04/20 03/04/20 18:59 06:59 18:59 Intake Total 891.589 663.851 304.256 Output Total 403 185 35 Balance 488.589 478.851 269.256 Weight 103 kg 103 kg Intake: IV 140 200 80 Dextrose 5% in Water 1, 125 000 ml @ 125 mls/hr IV . Q8H BETTINA Rx#:[id number] Furosemide 15 Sodium Chloride 0.9% 1, 200 80 000 ml @ 20 mls/hr IV . Q24H BETTINA Rx#:[id number] Intake, IV Titration 71.589 143.851 74.256 Amount Norepinephrine 8 mg In 3.322 Sodium Chloride 0.9% 250 ml @ 0.05 MCG/KG/MIN 9. 965 mls/hr IV .Q24H BETTINA Rx#:[id number] propofoL 1,000 mg In 71.589 143.851 70.934 Empty Bag 1 bag @ Titrate IV .Q0M BETTINA Rx#: [id number] Tube Feeding 380 320 150 Other 300 Output: Chest Tube Drainage 50 Chest Tube Left Upper 50 Lateral Chest Urine 353 185 35 Other: Voiding Method Indwelling Catheter Indwelling Catheter Indwelling Catheter # Bowel Movements 1 ABP, PAP, CO, CI - Last Documented Arterial Blood Pressure 111/102 - Exam -GENERAL: The patient is intubated and sedated HEENT: Pupils are round and equally reacting to light. EOMI. No scleral icterus. No conjunctival pallor. Normocephalic, atraumatic. No pharyngeal erythema. No thyromegaly. CARDIOVASCULAR: S1 and S2 present. No murmurs, rubs, or gallops. -PULMONARY: Chest is clear to auscultation, no wheezing or crackles. Left-sided chest tube midline vertical surgical wound is clean and dry and closed ABDOMEN: Soft, nontender, nondistended, normoactive bowel sounds. No palpable or ganomegaly. MUSCULOSKELETAL: No joint swelling or deformity. EXTREMITIES: No cyanosis, clubbing, or pedal edema. NEUROLOGICAL: Gross neurological examination did not reveal any focal deficits. SKIN: No rashes. no petechiae. - Labs CBC & Chem 7: 03/04/20 05:18 03/04/20 15:05 Labs: Abnormal Lab Results - Last 24 Hours (Table) 03/03/20 03/04/20 03/04/20 Range/Units 23:31 05:18 05:18 WBC 27.8 H (3.8-10.6) k/uL RBC 2.68 L (4.30-5.90) m/uL Hgb 7.4 L (13.0-17.5) gm/dL Hct 24.3 L (39.0-53.0) % MCHC 30.5 L (31.0-37.0) g/dL RDW 16.3 H (11.5-15.5) % Plt Count 570 H (150-450) k/uL Neutrophils # (Manual) 22.20 H (1.3-7.7) k/uL Monocytes # (Manual) 2.78 H (0-1.0) k/uL Metamyelocytes # (Man) 1.11 H (0) k/uL Myelocytes # (Manual) 0.28 H (0) k/uL Nucleated RBCs 30 H (0-0) /100 WBC ABG pH (7.35-7.45) ABG pCO2 (35-45) mmHg ABG pO2 (83-108) mmHg ABG HCO3 (21-25) mmol/L ABG Total CO2 (19-24) mmol/L ABG O2 Saturation (94-97) % Sodium 127 L (137-145) mmol/L Potassium 5.8 H (3.5-5.1) mmol/L Chloride 97 L (98-107) mmol/L Carbon Dioxide 17 L (22-30) mmol/L BUN 86 H (9-20) mg/dL Creatinine 4.04 H (0.66-1.25) mg/dL Glucose 103 H (74-99) mg/dL POC Glucose (mg/dL) 139 H (75-99) mg/dL Calcium 7.2 L (8.4-10.2) mg/dL Total Bilirubin 2.5 H (0.2-1.3) mg/dL AST 1212 H (17-59) U/L ALT 262 H (4-49) U/L Alkaline Phosphatase 256 H (38-126) U/L Total Protein 4.9 L (6.3-8.2) g/dL Albumin 2.2 L (3.5-5.0) g/dL Triglycerides (<150) mg/dL 03/04/20 03/04/20 03/04/20 Range/Units 05:45 06:05 09:03 WBC (3.8-10.6) k/uL RBC (4.30-5.90) m/uL Hgb (13.0-17.5) gm/dL Hct (39.0-53.0) % MCHC (31.0-37.0) g/dL RDW (11.5-15.5) % Plt Count (150-450) k/uL Neutrophils # (Manual) (1.3-7.7) k/uL Monocytes # (Manual) (0-1.0) k/uL Metamyelocytes # (Man) (0) k/uL Myelocytes # (Manual) (0) k/uL Nucleated RBCs (0-0) /100 WBC ABG pH 7.33 L (7.35-7.45) ABG pCO2 31 L (35-45) mmHg ABG pO2 140 H (83-108) mmHg ABG HCO3 16 L (21-25) mmol/L ABG Total CO2 17 L (19-24) mmol/L ABG O2 Saturation 98.4 H (94-97) % Sodium 129 L (137-145) mmol/L Potassium 5.7 H (3.5-5.1) mmol/L Chloride (98-107) mmol/L Carbon Dioxide 18 L (22-30) mmol/L BUN 90 H (9-20) mg/dL Creatinine 4.40 H (0.66-1.25) mg/dL Glucose 119 H (74-99) mg/dL POC Glucose (mg/dL) 117 H (75-99) mg/dL Calcium 7.2 L (8.4-10.2) mg/dL Total Bilirubin 2.5 H (0.2-1.3) mg/dL AST 1360 H (17-59) U/L ALT 292 H (4-49) U/L Alkaline Phosphatase 261 H (38-126) U/L Total Protein 4.9 L (6.3-8.2) g/dL Albumin 2.2 L (3.5-5.0) g/dL Triglycerides 362 H (<150) mg/dL 03/04/20 03/04/20 03/04/20 Range/Units 10:04 12:43 15:05 WBC (3.8-10.6) k/uL RBC (4.30-5.90) m/uL Hgb (13.0-17.5) gm/dL Hct (39.0-53.0) % MCHC (31.0-37.0) g/dL RDW (11.5-15.5) % Plt Count (150-450) k/uL Neutrophils # (Manual) (1.3-7.7) k/uL Monocytes # (Manual) (0-1.0) k/uL Metamyelocytes # (Man) (0) k/uL Myelocytes # (Manual) (0) k/uL Nucleated RBCs (0-0) /100 WBC ABG pH 7.28 L (7.35-7.45) ABG pCO2 (35-45) mmHg ABG pO2 31 L* (83-108) mmHg ABG HCO3 18 L (21-25) mmol/L ABG Total CO2 (19-24) mmol/L ABG O2 Saturation 46.2 L (94-97) % Sodium 129 L (137-145) mmol/L Potassium 6.3 H* (3.5-5.1) mmol/L Chloride (98-107) mmol/L Carbon Dioxide 17 L (22-30) mmol/L BUN 93 H (9-20) mg/dL Creatinine 4.47 H (0.66-1.25) mg/dL Glucose 114 H (74-99) mg/dL POC Glucose (mg/dL) 148 H (75-99) mg/dL Calcium 7.0 L (8.4-10.2) mg/dL Total Bilirubin 2.5 H (0.2-1.3) mg/dL AST 1760 H (17-59) U/L ALT 373 H (4-49) U/L Alkaline Phosphatase 229 H (38-126) U/L Total Protein 4.5 L (6.3-8.2) g/dL Albumin 2.0 L (3.5-5.0) g/dL Triglycerides (<150) mg/dL 03/04/20 Range/Units 15:30 WBC (3.8-10.6) k/uL RBC (4.30-5.90) m/uL Hgb (13.0-17.5) gm/dL Hct (39.0-53.0) % MCHC (31.0-37.0) g/dL RDW (11.5-15.5) % Plt Count (150-450) k/uL Neutrophils # (Manual) (1.3-7.7) k/uL Monocytes # (Manual) (0-1.0) k/uL Metamyelocytes # (Man) (0) k/uL Myelocytes # (Manual) (0) k/uL Nucleated RBCs (0-0) /100 WBC ABG pH (7.35-7.45) ABG pCO2 27 L (35-45) mmHg ABG pO2 73 L (83-108) mmHg ABG HCO3 17 L (21-25) mmol/L ABG Total CO2 18 L (19-24) mmol/L ABG O2 Saturation 93.5 L (94-97) % Sodium (137-145) mmol/L Potassium (3.5-5.1) mmol/L Chloride (98-107) mmol/L Carbon Dioxide (22-30) mmol/L BUN (9-20) mg/dL Creatinine (0.66-1.25) mg/dL Glucose (74-99) mg/dL POC Glucose (mg/dL) (75-99) mg/dL Calcium (8.4-10.2) mg/dL Total Bilirubin (0.2-1.3) mg/dL AST (17-59) U/L ALT (4-49) U/L Alkaline Phosphatase (38-126) U/L Total Protein (6.3-8.2) g/dL Albumin (3.5-5.0) g/dL Triglycerides (<150) mg/dL Microbiology - Last 24 Hours (Table) 03/02/20 08:30 CSF Gram Stain - Preliminary Cerebral Spinal Fluid CSF Culture - Preliminary 03/01/20 09:10 Gram Stain - Preliminary Pleural Fluid Body Fluid Culture - Preliminary 03/01/20 09:10 Blood Culture - Preliminary Blood No Growth after 72 hours Assessment and Plan Assessment: - Fall from ladder with trauma to chest and abdomen with traumatic hydro- pneumothorax , status post chest tube -Splenic injury status post splenectomy -Acute ventilatory dependent respiratory failure hypoxic secondary to polytrauma, pneumothorax and splenic injury, continue with the ventilatory support and wean off as tolerated. -Third degree heart block -Acute kidney injury needing hemodialysis due to oliguria and fluid overload -A. fib with RVR -Positive C. diff tests , for C. diff colitis, continue with oral vancomycin -left basilar opacity, stable -Traumatic left-sided rib fractures, status post left chest tube removed -hyponatremia -Hemorrhagic shock on admission which improved patient received 4 units of PRBC transfusion presently hemodynamically stable is not requiring any pressors -acute blood loss anemia from polytrauma pneumoperitoneum -history of carotid artery disease with previous bypass surgery -Hyperlipidemia -Benign prostatic hypertrophy Several consultants on the case and follow-up with a recommendation including pulmonary/critical care team, senior data analyst, infectious disease, neurologist, merchandising execution manager and general surgeon.
--- NOTE | 2020-03-04 19:19 | P.PN ---
Subjective Events of the day noted. Patient is still underwent His potassium increased to greater than 6 and at some point he converted to sinus rhythm her to the third degree heart block Hyperkalemia was treated by the ICU staff and he is now in a one-to-one conduction He underwent dialysis His blood pressure is low and now he is on a low dose norepinephrine Plan Hold off on by mouth Cardizem for now Continue amiodarone and we may consider reducing the dose of amiodarone in the near future 200 mg by mouth daily Objective - Vital Signs Vital signs: Vital Signs Temp 98.4 F 03/04/20 16:00 Pulse 84 03/04/20 19:11 Resp 33 H 03/04/20 18:30 BP 187/45 03/04/20 15:45 Pulse Ox 100 03/04/20 18:30 Intake & Output 03/04/20 03/04/20 03/05/20 06:59 18:59 06:59 Intake Total 663.851 884.256 112.363 Output Total 185 45 Balance 478.851 839.256 112.363 Weight 103 kg 103 kg Intake: IV 200 220 Sodium Chloride 0.9% 1, 200 220 000 ml @ 20 mls/hr IV . Q24H [facility] Rx#:[id number] Intake, IV Titration 143.851 74.256 112.363 Amount Norepinephrine 8 mg In 3.322 107.625 Sodium Chloride 0.9% 250 ml @ 0.05 MCG/KG/MIN 9. 965 mls/hr IV .Q24H [facility] Rx#:[id number] propofoL 1,000 mg In 143.851 70.934 Empty Bag 1 bag @ Titrate IV .Q0M [facility] Rx#: [id number] propofoL 1,000 mg In 4.738 Empty Bag 1 bag @ Titrate IV .Q0M [facility] Rx#: [id number] Tube Feeding 320 390 Other 200 Output: Urine 185 45 Other: Voiding Method Indwelling Catheter Indwelling Catheter ABP, PAP, CO, CI - Last Documented Arterial Blood Pressure 148/55 - Labs CBC & Chem 7: 03/04/20 05:18 03/04/20 15:05 Labs: Abnormal Lab Results - Last 24 Hours (Table) 03/03/20 03/04/20 03/04/20 Range/Units 23:31 05:18 05:18 WBC 27.8 H (3.8-10.6) k/uL RBC 2.68 L (4.30-5.90) m/uL Hgb 7.4 L (13.0-17.5) gm/dL Hct 24.3 L (39.0-53.0) % MCHC 30.5 L (31.0-37.0) g/dL RDW 16.3 H (11.5-15.5) % Plt Count 570 H (150-450) k/uL Neutrophils # (Manual) 22.20 H (1.3-7.7) k/uL Monocytes # (Manual) 2.78 H (0-1.0) k/uL Metamyelocytes # (Man) 1.11 H (0) k/uL Myelocytes # (Manual) 0.28 H (0) k/uL Nucleated RBCs 30 H (0-0) /100 WBC ABG pH (7.35-7.45) ABG pCO2 (35-45) mmHg ABG pO2 (83-108) mmHg ABG HCO3 (21-25) mmol/L ABG Total CO2 (19-24) mmol/L ABG O2 Saturation (94-97) % Sodium 127 L (137-145) mmol/L Potassium 5.8 H (3.5-5.1) mmol/L Chloride 97 L (98-107) mmol/L Carbon Dioxide 17 L (22-30) mmol/L BUN 86 H (9-20) mg/dL Creatinine 4.04 H (0.66-1.25) mg/dL Glucose 103 H (74-99) mg/dL POC Glucose (mg/dL) 139 H (75-99) mg/dL Calcium 7.2 L (8.4-10.2) mg/dL Total Bilirubin 2.5 H (0.2-1.3) mg/dL AST 1212 H (17-59) U/L ALT 262 H (4-49) U/L Alkaline Phosphatase 256 H (38-126) U/L Total Protein 4.9 L (6.3-8.2) g/dL Albumin 2.2 L (3.5-5.0) g/dL Triglycerides (<150) mg/dL 03/04/20 03/04/20 03/04/20 Range/Units 05:45 06:05 09:03 WBC (3.8-10.6) k/uL RBC (4.30-5.90) m/uL Hgb (13.0-17.5) gm/dL Hct (39.0-53.0) % MCHC (31.0-37.0) g/dL RDW (11.5-15.5) % Plt Count (150-450) k/uL Neutrophils # (Manual) (1.3-7.7) k/uL Monocytes # (Manual) (0-1.0) k/uL Metamyelocytes # (Man) (0) k/uL Myelocytes # (Manual) (0) k/uL Nucleated RBCs (0-0) /100 WBC ABG pH 7.33 L (7.35-7.45) ABG pCO2 31 L (35-45) mmHg ABG pO2 140 H (83-108) mmHg ABG HCO3 16 L (21-25) mmol/L ABG Total CO2 17 L (19-24) mmol/L ABG O2 Saturation 98.4 H (94-97) % Sodium 129 L (137-145) mmol/L Potassium 5.7 H (3.5-5.1) mmol/L Chloride (98-107) mmol/L Carbon Dioxide 18 L (22-30) mmol/L BUN 90 H (9-20) mg/dL Creatinine 4.40 H (0.66-1.25) mg/dL Glucose 119 H (74-99) mg/dL POC Glucose (mg/dL) 117 H (75-99) mg/dL Calcium 7.2 L (8.4-10.2) mg/dL Total Bilirubin 2.5 H (0.2-1.3) mg/dL AST 1360 H (17-59) U/L ALT 292 H (4-49) U/L Alkaline Phosphatase 261 H (38-126) U/L Total Protein 4.9 L (6.3-8.2) g/dL Albumin 2.2 L (3.5-5.0) g/dL Triglycerides 362 H (<150) mg/dL 03/04/20 03/04/20 03/04/20 Range/Units 10:04 12:43 15:05 WBC (3.8-10.6) k/uL RBC (4.30-5.90) m/uL Hgb (13.0-17.5) gm/dL Hct (39.0-53.0) % MCHC (31.0-37.0) g/dL RDW (11.5-15.5) % Plt Count (150-450) k/uL Neutrophils # (Manual) (1.3-7.7) k/uL Monocytes # (Manual) (0-1.0) k/uL Metamyelocytes # (Man) (0) k/uL Myelocytes # (Manual) (0) k/uL Nucleated RBCs (0-0) /100 WBC ABG pH 7.28 L (7.35-7.45) ABG pCO2 (35-45) mmHg ABG pO2 31 L* (83-108) mmHg ABG HCO3 18 L (21-25) mmol/L ABG Total CO2 (19-24) mmol/L ABG O2 Saturation 46.2 L (94-97) % Sodium 129 L (137-145) mmol/L Potassium 6.3 H* (3.5-5.1) mmol/L Chloride (98-107) mmol/L Carbon Dioxide 17 L (22-30) mmol/L BUN 93 H (9-20) mg/dL Creatinine 4.47 H (0.66-1.25) mg/dL Glucose 114 H (74-99) mg/dL POC Glucose (mg/dL) 148 H (75-99) mg/dL Calcium 7.0 L (8.4-10.2) mg/dL Total Bilirubin 2.5 H (0.2-1.3) mg/dL AST 1760 H (17-59) U/L ALT 373 H (4-49) U/L Alkaline Phosphatase 229 H (38-126) U/L Total Protein 4.5 L (6.3-8.2) g/dL Albumin 2.0 L (3.5-5.0) g/dL Triglycerides (<150) mg/dL 03/04/20 03/04/20 Range/Units 15:30 18:02 WBC (3.8-10.6) k/uL RBC (4.30-5.90) m/uL Hgb (13.0-17.5) gm/dL Hct (39.0-53.0) % MCHC (31.0-37.0) g/dL RDW (11.5-15.5) % Plt Count (150-450) k/uL Neutrophils # (Manual) (1.3-7.7) k/uL Monocytes # (Manual) (0-1.0) k/uL Metamyelocytes # (Man) (0) k/uL Myelocytes # (Manual) (0) k/uL Nucleated RBCs (0-0) /100 WBC ABG pH (7.35-7.45) ABG pCO2 27 L (35-45) mmHg ABG pO2 73 L (83-108) mmHg ABG HCO3 17 L (21-25) mmol/L ABG Total CO2 18 L (19-24) mmol/L ABG O2 Saturation 93.5 L (94-97) % Sodium (137-145) mmol/L Potassium (3.5-5.1) mmol/L Chloride (98-107) mmol/L Carbon Dioxide (22-30) mmol/L BUN (9-20) mg/dL Creatinine (0.66-1.25) mg/dL Glucose (74-99) mg/dL POC Glucose (mg/dL) 113 H (75-99) mg/dL Calcium (8.4-10.2) mg/dL Total Bilirubin (0.2-1.3) mg/dL AST (17-59) U/L ALT (4-49) U/L Alkaline Phosphatase (38-126) U/L Total Protein (6.3-8.2) g/dL Albumin (3.5-5.0) g/dL Triglycerides (<150) mg/dL Microbiology - Last 24 Hours (Table) 03/02/20 08:30 CSF Gram Stain - Preliminary Cerebral Spinal Fluid CSF Culture - Preliminary 03/01/20 09:10 Gram Stain - Preliminary Pleural Fluid Body Fluid Culture - Preliminary 03/01/20 09:10 Blood Culture - Preliminary Blood No Growth after 72 hours
[2020-03-04 19:34] LABS: Albumin 2.1 g/dL (3.5-5.0); Calcium 7.7 mg/dL (8.4-10.2); Potassium 4.9 mmol/L (3.5-5.1); Total Bilirubin 3.2 mg/dL (0.2-1.3); Total Protein 4.6 g/dL (6.3-8.2)
[2020-03-04] MEDS: TAMSULOSIN 0.4 MG CAP.ER.24H PO SCH (20:12)
[2020-03-04] MEDS: FINASTERIDE 5 MG TAB PO SCH (20:12)
[2020-03-04 20:23] LABS: Hepatitis B Surface AB- Quant 3.5 mIU/mL; Hepatitis B Surface Antibody Non-Reactive (Non-Reactive); Hepatitis B Surface Antigen Non-Reactive (Non-Reactive)
[2020-03-05] MEDS: INSULIN ASPART (NovoLOG) 100 UNIT/ML VIAL SQ SCH ×5 (00:52→23:05)
[2020-03-05 00:53] LABS: Glucose,Whole Blood 123 mg/dL (75-99)
[2020-03-05] MEDS: VANCOMYCIN ORAL SOLUTION 250 MG/5 ML BOTTLE PO SCH ×5 (00:56→23:06)
[2020-03-05] MEDS: IPRATROPIUM-ALBUTEROL 3 ML NEB INHALATION SCH ×5 (03:33→21:23)
[2020-03-05 04:45] LABS: Anisocytosis Slight; HCT 20.9 % (39.0-53.0); Hypochromasia Moderate; MCH 27.2 pg (25.0-35.0); MCHC 31.4 g/dL (31.0-37.0); MCV 86.7 fL (80.0-100.0); Mean Platelet Volume 12.1; Platelet Count 494 k/uL (150-450); Poikilocytosis Slight; RBC 2.41 m/uL (4.30-5.90); RDW 16.4 % (11.5-15.5)
[2020-03-05 04:59] LABS: HGB 6.5 gm/dL (13.0-17.5)
[2020-03-05] MEDS: NOREPINEPHRINE 32 MG in SODIUM CHLORIDE 0.9% 218 ML IV SCH (05:04)
[2020-03-05 05:06] LABS: Albumin 2.1 g/dL (3.5-5.0); Calcium 7.1 mg/dL (8.4-10.2); Potassium 4.9 mmol/L (3.5-5.1); Total Bilirubin 2.6 mg/dL (0.2-1.3); Total Protein 4.6 g/dL (6.3-8.2)
[2020-03-05 05:11] LABS: Band Neutrophils % 10 %; Metamyelocytes % 6 %; Myelocytes % 8 %; Neutrophils % (M) 68 %; Nucleated Red Blood Cells 16 /100 WBC (0-0); Total Cells Counted 200
[2020-03-05 05:12] LABS: Lymphocytes # (M) 1.69 k/uL (1.0-4.8); Metamyelocytes # (M) 2.53 k/uL (0); Monocytes # (M) 1.69 k/uL (0-1.0); Myelocytes # (M) 3.38 k/uL (0); WBC 42.2 k/uL (3.8-10.6)
[2020-03-05 05:13] LABS: Large Platelets Present
[2020-03-05 05:44] LABS: Glucose,Whole Blood 127 mg/dL (75-99)
[2020-03-05 05:50] LABS: ABG Base Excess -4.7 mmol/L; ABG HCO3 19 mmol/L (21-25); ABG Oxygen Saturation 98.9 % (94-97); ABG PCO2 28 mmHg (35-45); ABG PH 7.45 (7.35-7.45); ABG PO2 148 mmHg (83-108); ABG TCO2 20 mmol/L (19-24); Allen Test Performed? Yes
[2020-03-05] MEDS ORDERED: HEPARIN SODIUM,PORCINE 5,000 UNIT/ML 1 ML VIAL ONE (08:00)
[2020-03-05] MEDS: SODIUM BICARBONATE TAB 650 MG TAB PO SCH ×3 (08:36→21:25)
[2020-03-05] MEDS: ENOXAPARIN 30 MG/0.3 ML SYRINGE SQ SCH (08:36)
[2020-03-05] MEDS: THIAMINE 100 MG TAB PO SCH (08:36)
[2020-03-05] MEDS: AMIODARONE 200 MG TAB PO SCH ×2 (08:36→20:07)
[2020-03-05] MEDS: CHLORHEXIDINE GLUCONATE 15 ML CUP MUCOUS MEM SCH (08:36)
[2020-03-05] MEDS: PANTOPRAZOLE 40 MG/10 ML VIAL IVP SCH (08:36)
[2020-03-05] MEDS ORDERED: IOPAMIDOL CONTRAST (ORAL USE) VIAL PO PRN (08:44)
--- NOTE | 2020-03-05 08:49 | XR ---
EXAMINATION TYPE: XR chest 1V portable DATE OF EXAM: 03/05/2020 COMPARISON: NONE HISTORY: SOB, Follow Up FINDINGS: Indwelling tubes and catheters are unchanged. Scattered areas of patchy infiltrate throughout the right and left lung remain unchanged. Stable appearance of the cardio-mediastinal structures at this time. IMPRESSION: 1. Stable portable chest. Clinical correlation and follow up until resolution is recommended.
[2020-03-05] MEDS ORDERED: HAEMOPH B POLY CONJ-TET TOX/PF 10 MCG/0.5 ML VIAL IM ONE (09:00)
[2020-03-05] MEDS ORDERED: MENING VAC A,C,Y,W-135 DIP/PF 4 MCG/0.5 ML VIAL IM ONE (09:00)
[2020-03-05] MEDS ORDERED: PNEUMOCOCCAL VACC-PNEUMOVAX 23 25 MCG/0.5 ML VIAL IM ONE (09:00)
[2020-03-05 09:19] LABS: Amylase 64 U/L (30-110)
--- NOTE | 2020-03-05 09:23 | P.PN ---
Subjective patient is seen in follow-up for acute kidney injury. started on hemodialysis March 04 due to oliguria and hyperkalemia. patient became hypotensive during dialysis yesterday and was noted to be an AV block. Transcutaneous pacer was placed which improved his hemodynamics. tolerated near 3 L ultrafiltration yesterday. urine output about 20 mL an hour. currently on Levophed. hemodynamically stable. Vital signs are stable. on Levophed. General: The patient appeared well nourished and normally developed. intubated. HEENT: Head exam is unremarkable. Neck is without jugular venous distension. LUNGS: Breath sounds decreased. HEART: Rate and Rhythm are regular. ABDOMEN: soft, nondistended. EXTREMITITES: 2+ edema. Objective - Vital Signs Vital signs: Vital Signs Temp 100.0 F H 03/05/20 08:00 Pulse 82 03/05/20 08:04 Resp 30 H 03/05/20 08:00 BP 153/62 03/04/20 19:28 Pulse Ox 97 03/05/20 08:00 Intake & Output 03/04/20 03/05/20 03/05/20 18:59 06:59 18:59 Intake Total 127.466 1896.900 55.503 Output Total 45 3340 20 Balance 889.256 -1124.100 35.503 Weight 103 kg 104.6 kg Intake: IV 240 240 20 Sodium Chloride 0.9% 1, 240 240 20 000 ml @ 20 mls/hr IV . Q24H [facility] Rx#:[id number] Intake, IV Titration 74.256 415.900 5.503 Amount Norepinephrine 32 mg In 5.503 Sodium Chloride 0.9% 218 ml @ 0.14 MCG/KG/MIN 6. 759 mls/hr IV .Q24H [facility] Rx#:[id number] Norepinephrine 8 mg In 3.322 258.000 Sodium Chloride 0.9% 250 ml @ 0.05 MCG/KG/MIN 9. 965 mls/hr IV .Q24H [facility] Rx#:[id number] propofoL 1,000 mg In 70.934 Empty Bag 1 bag @ Titrate IV .Q0M [facility] Rx#: [id number] propofoL 1,000 mg In 157.900 Empty Bag 1 bag @ Titrate IV .Q0M [facility] Rx#: [id number] Tube Feeding 420 360 30 Hemodialysis 900 Other 200 300 Output: Urine 45 140 20 Hemodialysis 3200 Other: Voiding Method Indwelling Catheter Indwelling Catheter ABP, PAP, CO, CI - Last Documented Arterial Blood Pressure 121/49 - Labs CBC & Chem 7: 03/05/20 04:30 03/05/20 04:30 Labs: Abnormal Lab Results - Last 24 Hours (Table) 03/04/20 03/04/20 03/04/20 Range/Units 09:03 10:04 12:43 WBC (3.8-10.6) k/uL RBC (4.30-5.90) m/uL Hgb (13.0-17.5) gm/dL Hct (39.0-53.0) % RDW (11.5-15.5) % Plt Count (150-450) k/uL Neutrophils # (Manual) (1.3-7.7) k/uL Monocytes # (Manual) (0-1.0) k/uL Metamyelocytes # (Man) (0) k/uL Myelocytes # (Manual) (0) k/uL Nucleated RBCs (0-0) /100 WBC ABG pH 7.28 L (7.35-7.45) ABG pCO2 (35-45) mmHg ABG pO2 31 L* (83-108) mmHg ABG HCO3 18 L (21-25) mmol/L ABG Total CO2 (19-24) mmol/L ABG O2 Saturation 46.2 L (94-97) % Sodium 129 L (137-145) mmol/L Potassium 5.7 H (3.5-5.1) mmol/L Carbon Dioxide 18 L (22-30) mmol/L BUN 90 H (9-20) mg/dL Creatinine 4.40 H (0.66-1.25) mg/dL Glucose 119 H (74-99) mg/dL POC Glucose (mg/dL) 148 H (75-99) mg/dL Calcium 7.2 L (8.4-10.2) mg/dL Total Bilirubin 2.5 H (0.2-1.3) mg/dL AST 1360 H (17-59) U/L ALT 292 H (4-49) U/L Alkaline Phosphatase 261 H (38-126) U/L Total Protein 4.9 L (6.3-8.2) g/dL Albumin 2.2 L (3.5-5.0) g/dL Triglycerides 362 H (<150) mg/dL 03/04/20 03/04/20 03/04/20 Range/Units 15:05 15:30 18:02 WBC (3.8-10.6) k/uL RBC (4.30-5.90) m/uL Hgb (13.0-17.5) gm/dL Hct (39.0-53.0) % RDW (11.5-15.5) % Plt Count (150-450) k/uL Neutrophils # (Manual) (1.3-7.7) k/uL Monocytes # (Manual) (0-1.0) k/uL Metamyelocytes # (Man) (0) k/uL Myelocytes # (Manual) (0) k/uL Nucleated RBCs (0-0) /100 WBC ABG pH (7.35-7.45) ABG pCO2 27 L (35-45) mmHg ABG pO2 73 L (83-108) mmHg ABG HCO3 17 L (21-25) mmol/L ABG Total CO2 18 L (19-24) mmol/L ABG O2 Saturation 93.5 L (94-97) % Sodium 129 L (137-145) mmol/L Potassium 6.3 H* (3.5-5.1) mmol/L Carbon Dioxide 17 L (22-30) mmol/L BUN 93 H (9-20) mg/dL Creatinine 4.47 H (0.66-1.25) mg/dL Glucose 114 H (74-99) mg/dL POC Glucose (mg/dL) 113 H (75-99) mg/dL Calcium 7.0 L (8.4-10.2) mg/dL Total Bilirubin 2.5 H (0.2-1.3) mg/dL AST 1760 H (17-59) U/L ALT 373 H (4-49) U/L Alkaline Phosphatase 229 H (38-126) U/L Total Protein 4.5 L (6.3-8.2) g/dL Albumin 2.0 L (3.5-5.0) g/dL Triglycerides (<150) mg/dL 03/04/20 03/05/20 03/05/20 Range/Units 19:00 00:52 04:30 WBC 42.2 H (3.8-10.6) k/uL RBC 2.41 L (4.30-5.90) m/uL Hgb 6.5 L* (13.0-17.5) gm/dL Hct 20.9 L (39.0-53.0) % RDW 16.4 H (11.5-15.5) % Plt Count 494 H (150-450) k/uL Neutrophils # (Manual) 32.90 H (1.3-7.7) k/uL Monocytes # (Manual) 1.69 H (0-1.0) k/uL Metamyelocytes # (Man) 2.53 H (0) k/uL Myelocytes # (Manual) 3.38 H (0) k/uL Nucleated RBCs 16 H (0-0) /100 WBC ABG pH (7.35-7.45) ABG pCO2 (35-45) mmHg ABG pO2 (83-108) mmHg ABG HCO3 (21-25) mmol/L ABG Total CO2 (19-24) mmol/L ABG O2 Saturation (94-97) % Sodium 133 L (137-145) mmol/L Potassium (3.5-5.1) mmol/L Carbon Dioxide 20 L (22-30) mmol/L BUN 78 H (9-20) mg/dL Creatinine 3.84 H (0.66-1.25) mg/dL Glucose 107 H (74-99) mg/dL POC Glucose (mg/dL) 123 H (75-99) mg/dL Calcium 7.7 L (8.4-10.2) mg/dL Total Bilirubin 3.2 H (0.2-1.3) mg/dL AST 3709 H (17-59) U/L ALT 803 H (4-49) U/L Alkaline Phosphatase 278 H (38-126) U/L Total Protein 4.6 L (6.3-8.2) g/dL Albumin 2.1 L (3.5-5.0) g/dL Triglycerides (<150) mg/dL 03/05/20 03/05/20 03/05/20 Range/Units 04:30 05:42 05:46 WBC (3.8-10.6) k/uL RBC (4.30-5.90) m/uL Hgb (13.0-17.5) gm/dL Hct (39.0-53.0) % RDW (11.5-15.5) % Plt Count (150-450) k/uL Neutrophils # (Manual) (1.3-7.7) k/uL Monocytes # (Manual) (0-1.0) k/uL Metamyelocytes # (Man) (0) k/uL Myelocytes # (Manual) (0) k/uL Nucleated RBCs (0-0) /100 WBC ABG pH (7.35-7.45) ABG pCO2 28 L (35-45) mmHg ABG pO2 148 H (83-108) mmHg ABG HCO3 19 L (21-25) mmol/L ABG Total CO2 (19-24) mmol/L ABG O2 Saturation 98.9 H (94-97) % Sodium 131 L (137-145) mmol/L Potassium (3.5-5.1) mmol/L Carbon Dioxide 19 L (22-30) mmol/L BUN 90 H (9-20) mg/dL Creatinine 4.35 H (0.66-1.25) mg/dL Glucose 112 H (74-99) mg/dL POC Glucose (mg/dL) 127 H (75-99) mg/dL Calcium 7.1 L (8.4-10.2) mg/dL Total Bilirubin 2.6 H (0.2-1.3) mg/dL AST 3178 H (17-59) U/L ALT 735 H (4-49) U/L Alkaline Phosphatase 251 H (38-126) U/L Total Protein 4.6 L (6.3-8.2) g/dL Albumin 2.1 L (3.5-5.0) g/dL Triglycerides (<150) mg/dL Microbiology - Last 24 Hours (Table) 03/02/20 08:30 CSF Gram Stain - Preliminary Cerebral Spinal Fluid CSF Culture - Preliminary 03/01/20 09:10 Gram Stain - Preliminary Pleural Fluid Body Fluid Culture - Preliminary 03/01/20 09:10 Blood Culture - Preliminary Blood No Growth after 72 hours Assessment and Plan Plan: assessment: 1. Acute kidney injury secondary to ATN secondary to diuresis and hemodynamic instability. started on hemodialysis March 04 due to oliguria and hyperkale mandy. Baseline creatinine near 1. UA fairly benign. 2. Hypervolemic hyponatremia. 3. A. fib with RVR maintained on oral Cardizem and amiodarone. Stable. 4. Status post fall with pneumothorax, multiple rib fractures, hemoperitoneum and ruptured spleen status post emergent chest tube placement and splenectomy. 5. acute blood loss anemia status post blood transfusions this admission. hemoglobin 6.5 this morning. 6. Metabolic acidosis secondary to acute kidney injury. 7. 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 8. Hyperkalemia secondary to acute kidney injury and metabolic acidosis. ?GI bleed. improved postdialysis. 9. Third-degree heart block status post temporary pacer placement. plan: currently seen while undergoing hemodialysis. Lasix 80 mg IV once today. Maintain tube feeding - discontinue water flushes. Avoid nephrotoxins. maintain oral bicarb. continue to assess daily for need for renal replacement therapy. Wean Levophed. scheduled to receive another unit of blood today. add Aranesp.
--- NOTE | 2020-03-05 10:07 | P.PN ---
Subjective Progress Note Date: 03/05/20 CHIEF COMPLAINT: Fall with Trauma HISTORY OF PRESENT ILLNESS: Patient seen with Dr. Ivy. This is a 69-year-old male who fell 15 feet off the top of the ladder. Patient's CAT scan was performed showing a large left pneumothorax as well as multiple rib fractures and hemoperitoneum and a ruptured spleen. Patient is status post splenectomy. Patient is status post tracheostomy placement due to his res piratory failure and unable to wean from vent. Patient remains in ICU and on vent. Patient had hemodialysis yesterday and is currently getting hemodialysis this morning. Yesterday during hemodialysis he was hypotensive and went into a third-degree heart block. Transcutaneous pacer was placed. He is currently on Levophed. Afebrile. White count 42.2 hemoglobin 6.5 creatinine 4.35 total bili 2.6 AST 3178 ALT 735 alk phos 251 PHYSICAL EXAM: VITAL SIGNS: Reviewed. GENERAL: Well-developed in no acute distress. HEENT: No sclera icterus. Extraocular movements grossly intact. Moist buccal mucosa. Head is atraumatic, normocephalic. Trach site clean dry and intact ABDOMEN: Soft. Nondistended. Incision site clean dry and intact NEUROLOGIC: Patient is sedated ASSESSMENT: 1. 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 2. Status post tracheostomy for respiratory failure 3. Status post fall off a ladder with, to chest and abdomen 4. Left-sided pneumothorax has chest tube in place 5. Multiple left-sided rib fractures 6. Alcohol intoxication 7. Acute hypoxic ventilatory dependent respiratory failure. 8. Chronic pain medication 9. Atrial fibrillation with rapid ventricular response 10. C. diff colitis 11. Acute kidney injury with creatinine 4.04 today. Followed closely by nephrology. They've ordered dialysis catheter to be placed and for patient to have hemodialysis today and tomorrow 12. Acute blood loss anemia PLAN: -Plan for possible peg tube placement on Sunday -Patient scheduled for blood transfusion today -Continue tube feedings -Continue ICU management -Continue oral vancomycin -lovenox for DVT prophylaxis Physician Information Technology Data Analyst note has been reviewed by physician. Signing provider agrees with the documented findings, assessment, and plan of care. Objective - Vital Signs Vital signs: Vital Signs Temp 100.0 F H 03/05/20 08:00 Pulse 82 03/05/20 08:04 Resp 30 H 03/05/20 08:00 BP 153/62 03/04/20 19:28 Pulse Ox 97 03/05/20 08:00 Intake & Output 03/04/20 03/05/20 03/05/20 18:59 06:59 18:59 Intake Total 723.221 1520.900 55.503 Output Total 45 3340 20 Balance 889.256 -1124.100 35.503 Weight 103 kg 104.6 kg Intake: IV 240 240 20 Sodium Chloride 0.9% 1, 240 240 20 000 ml @ 20 mls/hr IV . Q24H [facility] Rx#:[id number] Intake, IV Titration 74.256 415.900 5.503 Amount Norepinephrine 32 mg In 5.503 Sodium Chloride 0.9% 218 ml @ 0.14 MCG/KG/MIN 6. 759 mls/hr IV .Q24H [facility] Rx#:[id number] Norepinephrine 8 mg In 3.322 258.000 Sodium Chloride 0.9% 250 ml @ 0.05 MCG/KG/MIN 9. 965 mls/hr IV .Q24H [facility] Rx#:[id number] propofoL 1,000 mg In 70.934 Empty Bag 1 bag @ Titrate IV .Q0M [facility] Rx#: [id number] propofoL 1,000 mg In 157.900 Empty Bag 1 bag @ Titrate IV .Q0M [facility] Rx#: [id number] Tube Feeding 420 360 30 Hemodialysis 900 Other 200 300 Output: Urine 45 140 20 Hemodialysis 3200 Other: Voiding Method Indwelling Catheter Indwelling Catheter ABP, PAP, CO, CI - Last Documented Arterial Blood Pressure 121/49 - Labs CBC & Chem 7: 03/05/20 04:30 03/05/20 04:30 Labs: Abnormal Lab Results - Last 24 Hours (Table) 03/04/20 03/04/20 03/04/20 Range/Units 10:04 12:43 15:05 WBC (3.8-10.6) k/uL RBC (4.30-5.90) m/uL Hgb (13.0-17.5) gm/dL Hct (39.0-53.0) % RDW (11.5-15.5) % Plt Count (150-450) k/uL Neutrophils # (Manual) (1.3-7.7) k/uL Monocytes # (Manual) (0-1.0) k/uL Metamyelocytes # (Man) (0) k/uL Myelocytes # (Manual) (0) k/uL Nucleated RBCs (0-0) /100 WBC ABG pH 7.28 L (7.35-7.45) ABG pCO2 (35-45) mmHg ABG pO2 31 L* (83-108) mmHg ABG HCO3 18 L (21-25) mmol/L ABG Total CO2 (19-24) mmol/L ABG O2 Saturation 46.2 L (94-97) % Sodium 129 L (137-145) mmol/L Potassium 6.3 H* (3.5-5.1) mmol/L Carbon Dioxide 17 L (22-30) mmol/L BUN 93 H (9-20) mg/dL Creatinine 4.47 H (0.66-1.25) mg/dL Glucose 114 H (74-99) mg/dL POC Glucose (mg/dL) 148 H (75-99) mg/dL Calcium 7.0 L (8.4-10.2) mg/dL Total Bilirubin 2.5 H (0.2-1.3) mg/dL AST 1760 H (17-59) U/L ALT 373 H (4-49) U/L Alkaline Phosphatase 229 H (38-126) U/L Total Protein 4.5 L (6.3-8.2) g/dL Albumin 2.0 L (3.5-5.0) g/dL 03/04/20 03/04/20 03/04/20 Range/Units 15:30 18:02 19:00 WBC (3.8-10.6) k/uL RBC (4.30-5.90) m/uL Hgb (13.0-17.5) gm/dL Hct (39.0-53.0) % RDW (11.5-15.5) % Plt Count (150-450) k/uL Neutrophils # (Manual) (1.3-7.7) k/uL Monocytes # (Manual) (0-1.0) k/uL Metamyelocytes # (Man) (0) k/uL Myelocytes # (Manual) (0) k/uL Nucleated RBCs (0-0) /100 WBC ABG pH (7.35-7.45) ABG pCO2 27 L (35-45) mmHg ABG pO2 73 L (83-108) mmHg ABG HCO3 17 L (21-25) mmol/L ABG Total CO2 18 L (19-24) mmol/L ABG O2 Saturation 93.5 L (94-97) % Sodium 133 L (137-145) mmol/L Potassium (3.5-5.1) mmol/L Carbon Dioxide 20 L (22-30) mmol/L BUN 78 H (9-20) mg/dL Creatinine 3.84 H (0.66-1.25) mg/dL Glucose 107 H (74-99) mg/dL POC Glucose (mg/dL) 113 H (75-99) mg/dL Calcium 7.7 L (8.4-10.2) mg/dL Total Bilirubin 3.2 H (0.2-1.3) mg/dL AST 3709 H (17-59) U/L ALT 803 H (4-49) U/L Alkaline Phosphatase 278 H (38-126) U/L Total Protein 4.6 L (6.3-8.2) g/dL Albumin 2.1 L (3.5-5.0) g/dL 03/05/20 03/05/20 03/05/20 Range/Units 00:52 04:30 04:30 WBC 42.2 H (3.8-10.6) k/uL RBC 2.41 L (4.30-5.90) m/uL Hgb 6.5 L* (13.0-17.5) gm/dL Hct 20.9 L (39.0-53.0) % RDW 16.4 H (11.5-15.5) % Plt Count 494 H (150-450) k/uL Neutrophils # (Manual) 32.90 H (1.3-7.7) k/uL Monocytes # (Manual) 1.69 H (0-1.0) k/uL Metamyelocytes # (Man) 2.53 H (0) k/uL Myelocytes # (Manual) 3.38 H (0) k/uL Nucleated RBCs 16 H (0-0) /100 WBC ABG pH (7.35-7.45) ABG pCO2 (35-45) mmHg ABG pO2 (83-108) mmHg ABG HCO3 (21-25) mmol/L ABG Total CO2 (19-24) mmol/L ABG O2 Saturation (94-97) % Sodium 131 L (137-145) mmol/L Potassium (3.5-5.1) mmol/L Carbon Dioxide 19 L (22-30) mmol/L BUN 90 H (9-20) mg/dL Creatinine 4.35 H (0.66-1.25) mg/dL Glucose 112 H (74-99) mg/dL POC Glucose (mg/dL) 123 H (75-99) mg/dL Calcium 7.1 L (8.4-10.2) mg/dL Total Bilirubin 2.6 H (0.2-1.3) mg/dL AST 3178 H (17-59) U/L ALT 735 H (4-49) U/L Alkaline Phosphatase 251 H (38-126) U/L Total Protein 4.6 L (6.3-8.2) g/dL Albumin 2.1 L (3.5-5.0) g/dL 03/05/20 03/05/20 Range/Units 05:42 05:46 WBC (3.8-10.6) k/uL RBC (4.30-5.90) m/uL Hgb (13.0-17.5) gm/dL Hct (39.0-53.0) % RDW (11.5-15.5) % Plt Count (150-450) k/uL Neutrophils # (Manual) (1.3-7.7) k/uL Monocytes # (Manual) (0-1.0) k/uL Metamyelocytes # (Man) (0) k/uL Myelocytes # (Manual) (0) k/uL Nucleated RBCs (0-0) /100 WBC ABG pH (7.35-7.45) ABG pCO2 28 L (35-45) mmHg ABG pO2 148 H (83-108) mmHg ABG HCO3 19 L (21-25) mmol/L ABG Total CO2 (19-24) mmol/L ABG O2 Saturation 98.9 H (94-97) % Sodium (137-145) mmol/L Potassium (3.5-5.1) mmol/L Carbon Dioxide (22-30) mmol/L BUN (9-20) mg/dL Creatinine (0.66-1.25) mg/dL Glucose (74-99) mg/dL POC Glucose (mg/dL) 127 H (75-99) mg/dL Calcium (8.4-10.2) mg/dL Total Bilirubin (0.2-1.3) mg/dL AST (17-59) U/L ALT (4-49) U/L Alkaline Phosphatase (38-126) U/L Total Protein (6.3-8.2) g/dL Albumin (3.5-5.0) g/dL Microbiology - Last 24 Hours (Table) 03/02/20 08:30 CSF Gram Stain - Preliminary Cerebral Spinal Fluid CSF Culture - Preliminary 03/01/20 09:10 Gram Stain - Preliminary Pleural Fluid Body Fluid Culture - Preliminary 03/01/20 09:10 Blood Culture - Preliminary Blood No Growth after 72 hours
--- NOTE | 2020-03-05 11:06 | P.PN ---
Subjective Progress Note Date: 03/05/20 This is a 69-year-old male patient who was working on his gutters when he fell off a 15 foot ladder. This was unwitnessed. He end up calling his who in turn called EMS and the patient was brought in to the emergency department. Upon arrival, the patient was hypotensive and he was in shock. The patient initial chest x-ray showed several left-sided fractures and small amount of subcutaneous air in addition to a left-sided pneumothorax. The x-ray of the pelvis showed no evidence of any fracture or dislocation. The CAT scan of the brain showed age-related atrophy and chronic small vessel ischemic changes without any acute intracranial process. CAT scan of cervical spine showed no acute abnormalities. On and has Been of the cervical spine was done and the bone and soft tissue windows showed no acute abnormalities. There was no evidence of any fracture. Along with multiple left-sided rib fractures third extending to the seventh rib. There was also spending the sedation with estima daxa grade 3 injury the patient. The patient's hemoglobin dropped to 10.5. The patient received a total of 2 L of IV fluid and 40 minutes of packed RBC. Morning hemoglobin today is At 13.4. The patient was taken to the operating room yesterday. The patient underwent a left-sided chest tube insertion. The patient also had splenectomy done and following that the patient was kept intubated on a mechanical ventilator and he was transferred to the intensive care unit. Note that the patient takes morphine outpatient basis and he has chronic pain and chronic narcotic requirements and on outpatient basis he takes morphine sulfate in the form of MS Contin 50 mg every 12 hours. Overnight, the patient was intubated on mechanical ventilator. He was sedated with a combination of propofol and he was also placed on morphine drip after being given several boluses control his pain. This morning, Profore is running at 70 mg per KG per minute. Morphine is running at 8 mg an hour. The patient is on normal saline at rate of 85 mL an hour. The patient has a left sided chest tube. Total amount of output is in order 110 mL of serosanguineous material without evidence of any air leak. The ventilator setting shows an assist- control mode rate of 20 with a tidal volume of 500 and FiO2 of 40% with a PEEP of 5. The patient's FiO2 is down to 40% overnight. The morning blood gases showed a pH of 7.4 with a pCO2 of 37 and pO2 of 121. The chest x-ray from this morning shows that the patient has an indwelling left-sided chest tube without any signs or pneumothorax. There is also a basilar pleural-based opacity along with multiple left-sided rib fractures and ET tube is in a good location. He is at approximately slightly swollen probably related to an infiltrated IV. He did not require any pressors. He remains hemodynamically stable. Lactic acid remains slightly elevated at 2.9 On 03/04/2020, the patient is being seen for a follow-up. The patient this morning is sedated with propofol at 50 mg per KG per minute. The patient is posterior Tibial Insertion. He Has a Bivona Tracheostomy Tube in Place. The Patient Is on a Mechanical Ventilator on Assist Control Mode at the Rate of 20 with a Tidal Volume of 500 and FiO2 of 50% with a PEEP of 10. The Blood Gases from Today Showed a pH of 7.33 with a pCO2 of 31 and pO2 of 140 and this was on FiO2 of 50%. Chest X-Ray Still Showing Bilateral Pulmonary Infiltrates That Are Rather Diffuse. The Previous Bronchoscopy and the bronchioloalveolar lavage showed no microbial growth. Prior to that a sputum sample that was done on 02/27/2020 showed Selina albicans and a sputum sample from 02/22/2020 showed Selina albicans and Selina Krusei. The patient was treated with Eraxis and he completed the course of antibiotics. He was also on IV Zosyn since admission. Antibiotics were discontinued and the patient developed C. diff colitis that was diagnosed on 03/02/2020. He was having significant diarrhea which essentially slowed down as the patient was started on oral vancomycin to 50 mg orally every 6 hours. The abdominal wound is dry clean and intact. No abdominal distention. Urine output is diminished and the patient is producing somewhere between 10-20 mL an hour of urine output. His any significant fluid overload including significant edema in all 4 extremities and scrotal edema. There is also some a bdominal wall edema. Surgical wound site is dry clean and intact. There is no signs of any wound infection. The patient is tolerating tube feeds and he is on vital high protein at the rate of 30 mL an hour. LFTs are on the rise. The creatinine is on the resident's currently up to 4.4 on the sodium level is down to 129 and a potassium level is at 5.7. This was discussed with nephrology and the patient is going to initiate hemodialysis today. Mental status is not appropriate still. As part of further investigation, the patient underwent another CAT scan of the brain on 02/27/2020 this was negative for any acute abnormalities and the patient had some new partial investigation of the shivani ateral mastoid air cells. A lumbar puncture was also done and the patient was found to have CSF protein of 50, no nucleated white cells, 17 RBCs and glucose was 93. Cultures were negative. On 03/05/2020, the patient is being seen in follow-up. Mother the patient was started on hemodialysis yesterday as the patient was having significant amount of fluid overload and the potassium was in the rise. Just about while going on dialysis, the patient developed heart block and this was a high-grade AV block with hemodynamic instability and hypotension. Immediately, the patient was given calcium chloride and sodium bicarb pushes. His condition was stabilized. He was started on pressors and following that his cardiac rhythm normalizes back to normal sinus rhythm. He underwent hemodialysis yesterday with ultrafiltration and total of 3 L of fluid was removed. Nevertheless, the patient continues to be significant fluid overload. This morning he remains on propofol at 50 mg per KG per minute. He is on levo fed at 0.03 g per KG per minute. He is on normal saline at 50 mL an hour. He remains on a mechanical ventilator. Earlier this morning, chest x-ray was done that showed improvement by the pulmonary infiltrates. The patient had a assist-control mode of ventilation at the rate of 30 with a tidal volume of 550 and FiO2 of 50% with a PEEP of 10. The blood gas showed a pH of 7.44 with episodes of 28 and pO2 148. The patient is making minimal amount of urine output. Hemoglobin this morning was at 6.5 without evidence of any GI bleed and the patient was given a unit of packed RBC. He is receiving Nepro as enteral feeding for nutritional support. Abdomen is slightly distended. The patient has no significant residuals and is producing adequate amount of bowel movement activity. His white cell count still elevated at 42 related to C. diff colitis. Abdominal wound is dry clean and intact. Less of the cultures were all negative for now. Objective - Vital Signs Vital signs: Vital Signs Temp 100.0 F H 03/05/20 08:00 Pulse 96 03/05/20 10:00 Resp 24 03/05/20 10:00 BP 153/62 03/04/20 19:28 Pulse Ox 98 03/05/20 10:00 Intake & Output 03/04/20 03/05/20 03/05/20 18:59 06:59 18:59 Intake Total 286.482 8070.900 153.229 Output Total 45 3340 70 Balance 889.256 -1124.100 83.229 Weight 103 kg 104.6 kg Intake: IV 240 240 20 Sodium Chloride 0.9% 1, 240 240 20 000 ml @ 20 mls/hr IV . Q24H [facility] Rx#:[id number] Intake, IV Titration 74.256 415.900 13.229 Amount Norepinephrine 32 mg In 13.229 Sodium Chloride 0.9% 218 ml @ 0.14 MCG/KG/MIN 6. 759 mls/hr IV .Q24H [facility] Rx#:[id number] Norepinephrine 8 mg In 3.322 258.000 Sodium Chloride 0.9% 250 ml @ 0.05 MCG/KG/MIN 9. 965 mls/hr IV .Q24H [facility] Rx#:[id number] propofoL 1,000 mg In 70.934 Empty Bag 1 bag @ Titrate IV .Q0M [facility] Rx#: [id number] propofoL 1,000 mg In 157.900 Empty Bag 1 bag @ Titrate IV .Q0M [facility] Rx#: [id number] Tube Feeding 420 360 120 Hemodialysis 900 Other 200 300 0 Output: Urine 45 140 70 Hemodialysis 3200 Other: Voiding Method Indwelling Catheter Indwelling Catheter ABP, PAP, CO, CI - Last Documented Arterial Blood Pressure 107/49 - Exam Gen. appearance the patient is sedated, comfortable not in acute respiratory distress. The patient has NG tube in place. The patient also has a tracheostomy tube in place which is a Bivona tracheostomy tube. No evidence of any air leak around the tube. This morning the patient is adequately sedated with propofol. He is calm and comfortable. Head exam was generally normal. There was no scleral icterus or corneal arcus. M ucous membranes were moist. Neck was supple and without jugular venous distension, thyromegaly, or carotid bruits. Carotids were easily palpable bilaterally. There was no adenopathy. The patient has a tracheostomy tube in place. Lungs sounds are diminished bilaterally and the patient is a left sided chest tube in place. Chest tube is in a good location. Breath sounds are slightly diminished in left lung base compared to the right. No evidence of any air leak and the chest tube Pleur-evac. Cardiac exam revealed the PMI to be normally situated and sized. The rhythm was regular and no extrasystoles were noted during several minutes of auscultation. The first and second heart sounds were normal and physiologic splitting of the second heart sound was noted. There were no murmurs, rubs, clicks, or gallops. Abdomen is soft and nontender. The patient has a mid abdominal scar which is dry clean and intact. A surgical scar/wound is dry clean and intact. No direct distention. No rebound distention. No guarding. Bowel sounds are hypoactive at this point in time. Examination of the extremities revealed easily palpable radial, femoral and pedal pulses. There was no cyanosis, clubbing and there is development of significant edema in all 4 extremities and the patient also has scrotal edema. Examination of the skin revealed no evidence of significant rashes, suspicious appearing nevi or other concerning lesions. Abdominal wound site is dry clean and intact. Neurologic the patient is sedated and non-arousable. Currently he is well sedated. Pupils are equal and reactive to light. No signs of any head trauma. No nystagmus. No clonus. No Babinski. - Labs CBC & Chem 7: 03/05/20 04:30 03/05/20 04:30 Labs: Abnormal Lab Results - Last 24 Hours (Table) 03/04/20 03/04/20 03/04/20 Range/Units 12:43 15:05 15:30 WBC (3.8-10.6) k/uL RBC (4.30-5.90) m/uL Hgb (13.0-17.5) gm/dL Hct (39.0-53.0) % RDW (11.5-15.5) % Plt Count (150-450) k/uL Neutrophils # (Manual) (1.3-7.7) k/uL Monocytes # (Manual) (0-1.0) k/uL Metamyelocytes # (Man) (0) k/uL Myelocytes # (Manual) (0) k/uL Nucleated RBCs (0-0) /100 WBC ABG pCO2 27 L (35-45) mmHg ABG pO2 73 L (83-108) mmHg ABG HCO3 17 L (21-25) mmol/L ABG Total CO2 18 L (19-24) mmol/L ABG O2 Saturation 93.5 L (94-97) % Sodium 129 L (137-145) mmol/L Potassium 6.3 H* (3.5-5.1) mmol/L Carbon Dioxide 17 L (22-30) mmol/L BUN 93 H (9-20) mg/dL Creatinine 4.47 H (0.66-1.25) mg/dL Glucose 114 H (74-99) mg/dL POC Glucose (mg/dL) 148 H (75-99) mg/dL Calcium 7.0 L (8.4-10.2) mg/dL Total Bilirubin 2.5 H (0.2-1.3) mg/dL AST 1760 H (17-59) U/L ALT 373 H (4-49) U/L Alkaline Phosphatase 229 H (38-126) U/L Total Protein 4.5 L (6.3-8.2) g/dL Albumin 2.0 L (3.5-5.0) g/dL Crossmatch 03/04/20 03/04/20 03/05/20 Range/Units 18:02 19:00 00:52 WBC (3.8-10.6) k/uL RBC (4.30-5.90) m/uL Hgb (13.0-17.5) gm/dL Hct (39.0-53.0) % RDW (11.5-15.5) % Plt Count (150-450) k/uL Neutrophils # (Manual) (1.3-7.7) k/uL Monocytes # (Manual) (0-1.0) k/uL Metamyelocytes # (Man) (0) k/uL Myelocytes # (Manual) (0) k/uL Nucleated RBCs (0-0) /100 WBC ABG pCO2 (35-45) mmHg ABG pO2 (83-108) mmHg ABG HCO3 (21-25) mmol/L ABG Total CO2 (19-24) mmol/L ABG O2 Saturation (94-97) % Sodium 133 L (137-145) mmol/L Potassium (3.5-5.1) mmol/L Carbon Dioxide 20 L (22-30) mmol/L BUN 78 H (9-20) mg/dL Creatinine 3.84 H (0.66-1.25) mg/dL Glucose 107 H (74-99) mg/dL POC Glucose (mg/dL) 113 H 123 H (75-99) mg/dL Calcium 7.7 L (8.4-10.2) mg/dL Total Bilirubin 3.2 H (0.2-1.3) mg/dL AST 3709 H (17-59) U/L ALT 803 H (4-49) U/L Alkaline Phosphatase 278 H (38-126) U/L Total Protein 4.6 L (6.3-8.2) g/dL Albumin 2.1 L (3.5-5.0) g/dL Crossmatch 03/05/20 03/05/20 03/05/20 Range/Units 04:30 04:30 05:40 WBC 42.2 H (3.8-10.6) k/uL RBC 2.41 L (4.30-5.90) m/uL Hgb 6.5 L* (13.0-17.5) gm/dL Hct 20.9 L (39.0-53.0) % RDW 16.4 H (11.5-15.5) % Plt Count 494 H (150-450) k/uL Neutrophils # (Manual) 32.90 H (1.3-7.7) k/uL Monocytes # (Manual) 1.69 H (0-1.0) k/uL Metamyelocytes # (Man) 2.53 H (0) k/uL Myelocytes # (Manual) 3.38 H (0) k/uL Nucleated RBCs 16 H (0-0) /100 WBC ABG pCO2 (35-45) mmHg ABG pO2 (83-108) mmHg ABG HCO3 (21-25) mmol/L ABG Total CO2 (19-24) mmol/L ABG O2 Saturation (94-97) % Sodium 131 L (137-145) mmol/L Potassium (3.5-5.1) mmol/L Carbon Dioxide 19 L (22-30) mmol/L BUN 90 H (9-20) mg/dL Creatinine 4.35 H (0.66-1.25) mg/dL Glucose 112 H (74-99) mg/dL POC Glucose (mg/dL) (75-99) mg/dL Calcium 7.1 L (8.4-10.2) mg/dL Total Bilirubin 2.6 H (0.2-1.3) mg/dL AST 3178 H (17-59) U/L ALT 735 H (4-49) U/L Alkaline Phosphatase 251 H (38-126) U/L Total Protein 4.6 L (6.3-8.2) g/dL Albumin 2.1 L (3.5-5.0) g/dL Crossmatch See Detail 03/05/20 03/05/20 Range/Units 05:42 05:46 WBC (3.8-10.6) k/uL RBC (4.30-5.90) m/uL Hgb (13.0-17.5) gm/dL Hct (39.0-53.0) % RDW (11.5-15.5) % Plt Count (150-450) k/uL Neutrophils # (Manual) (1.3-7.7) k/uL Monocytes # (Manual) (0-1.0) k/uL Metamyelocytes # (Man) (0) k/uL Myelocytes # (Manual) (0) k/uL Nucleated RBCs (0-0) /100 WBC ABG pCO2 28 L (35-45) mmHg ABG pO2 148 H (83-108) mmHg ABG HCO3 19 L (21-25) mmol/L ABG Total CO2 (19-24) mmol/L ABG O2 Saturation 98.9 H (94-97) % Sodium (137-145) mmol/L Potassium (3.5-5.1) mmol/L Carbon Dioxide (22-30) mmol/L BUN (9-20) mg/dL Creatinine (0.66-1.25) mg/dL Glucose (74-99) mg/dL POC Glucose (mg/dL) 127 H (75-99) mg/dL Calcium (8.4-10.2) mg/dL Total Bilirubin (0.2-1.3) mg/dL AST (17-59) U/L ALT (4-49) U/L Alkaline Phosphatase (38-126) U/L Total Protein (6.3-8.2) g/dL Albumin (3.5-5.0) g/dL Crossmatch Microbiology - Last 24 Hours (Table) 03/01/20 09:10 Gram Stain - Final Pleural Fluid Body Fluid Culture - Final 03/02/20 08:30 CSF Gram Stain - Preliminary Cerebral Spinal Fluid CSF Culture - Preliminary 03/01/20 09:10 Blood Culture - Preliminary Blood No Growth after 72 hours Assessment and Plan Plan: 1 fall off a ladder with significant trauma to the chest and abdomen. The patient had sustained left-sided rib fractures, splenic rupture postsplenectomy, and a left-sided pneumothorax. 2 traumatic grade 3 laceration of the spleen along with hemoperitoneum and the patient is post splenectomy and the patient is postop day and the patient had the surgery on 02/17/2020. 3 traumatic left-sided rib fractures third drip through seventh rib along with a 30% left-sided pneumothorax post chest tube insertion with adequate expansion of the left lung. The left-sided chest tube was removed. The follow-up chest x-ray has not shown any residual pneumot horax. 4 shock at the time of admission, essentially due to hemorrhagic shock, recovered on subsequent the patient is placed back on pressors as the patient was being dialyzed. Currently is on few mics of norepinephrine infusion for blood pressure control. 5 Acute kidney injury with massive fluid overload and the patient was started on hemodialysis. First session of hemodialysis was done yesterday. The patient's potassium level is down to 4.9. The patient's serum bicarb is 19. 6 acute ventilator-dependent respiratory failure, hypoxic, secondary to above. The patient had diffuse bilateral pulmonary infiltrates. All of the cultures of been negative with exception of Selina and the patient completed a course of Eraxis. Consider the possibility of interstitial edema. The chest x-ray is showing some improvement compared to yesterday so his oxygenation and blood gases. 7 chronic neck pain and the patient had been taken MS Contin on outpatient basis 15 mg twice a day 8 coronary artery disease with a previous bypass surgery 9 hyperlipidemia 10 BPH 11 delirium tremens as the patient is suspected alcoholism 12 A. fib RVR, converted to sinus rhythm and the patient is off amiodarone and echocardiogram shows a normal LV function 13 leukocytosis, secondary to C. diff colitis 14 diarrhea secondary to C. diff colitis currently on oral vancomycin, white cell count remains elevated at 42. The patient is still having limited diarrhea. The patient on oral vancomycin. 15 anemia, multifactorial, chronic, hemoglobin has dropped down to 6.5 and the patient will be receiving a unit of packed RBC. 16, acute hepatic injury, shock liver with LFTs were found to be significantly elevated and they're gradually improving. Plan Continue ventilator support Drop the PEEP down to 8, dropped the tidal volume to 500, drop the FiO2 down to 40% Proceed another session of hemodialysis ultrafiltration CPK level is not elevated We'll wean off the propofol and try the patient on another sedation holiday Sedation holiday on a daily basis The patient will have a hemodialysis catheter inserted today and the patient was started on hemodialysis. Monitor LFTs Continue enteral feeding for nutritional support Continue oral vancomycin regarding C. diff colitis Continue enteral feeding for nutritional support We'll continue to follow. The patient is critically ill, and the patient will monitored very closely in the ICU. This is a critically care evaluation that was on a more than 30 minutes. Time with Patient: Less than 30
[2020-03-05 11:46] LABS: Glucose,Whole Blood 129 mg/dL (75-99)
--- NOTE | 2020-03-05 12:32 | P.PN ---
Subjective This is Ayesha Valencia PA-C dictating a progress note on this patient The patient was interviewed and examined by me as well as by Dr. Torres Case discussed with Dr. Torres and he agrees with the plan of care HPI/interval history Patient is a 70-year-old male with a history of CAD status post CABG and paroxysmal atrial fibrillation who presented with a fall and multiple injuries. He underwent a splenectomy and a tracheostomy. He remains in the ICU, on the ventilator. He has had worsening renal function and has been started on dialys is. As a result of his renal failure, his potassium was elevated and he had complete heart block in the setting of hyperkalemia. His Cardizem was discontinued. He went back into atrial fibrillation and is currently on oral amiodarone. His rates are in the 90s. Patient seen and examined in the ICU, on the ventilator. He is currently receiving hemodialysis. He has on a low-dose of pressors EXAMINATION Temperature 99.0F, pulse 92, respirations 30, blood pressure 112/49, oxygen saturation 100% on mechanical ventilation Patient seen and examined in the ICU, sedated and on the ventilator Heart is irregular and tachycardic, no audible murmurs Breath sounds are equal bilaterally mild lower extremity edema REVIEW OF LABS, ECG WBC 42.2, , hemoglobin 6.5, platelets 494, potassium 4.9, sodium 131, BUN 90, creatinine 4.35, AST 3178, ALT 735 IMPRESSION / ASSESSMENT: #1 fall with multiple injuries including a splenic injury status post splenectomy #2 status post tracheostomy #3 paroxysmal atrial fibrillation, currently in atrial fibrillation with rates in the high 90s to low 100s, not on anticoagulation due to anemia #4 history of CAD status post CABG #5 acute blood loss anemia status post multiple transfusions, hemoglobin 6.5 #6 complete heart block in the setting of hyperkalemia, Cardizem on hold, currently in atrial fibrillation with rates in the 100 #7 acute renal failure requiring dialysis #8 elevated liver enzymes PLAN: Continue the current dose of oral amiodarone Continue holding the Cardizem We'll continue to follow Management of multiple other medical problems by primary care team and multiple consultants Objective - Vital Signs Vital signs: Vital Signs Temp 99.0 F 03/05/20 11:57 Pulse 92 03/05/20 12:18 Resp 30 H 03/05/20 12:00 BP 114/52 03/05/20 11:57 Pulse Ox 100 03/05/20 12:00 Intake & Output 03/04/20 03/05/20 03/05/20 18:59 06:59 18:59 Intake Total 404.835 7161.900 214.919 Output Total 45 3340 95 Balance 889.256 -1124.100 119.919 Weight 103 kg 104.6 kg 104.6 kg Intake: IV 240 240 20 Sodium Chloride 0.9% 1, 240 240 20 000 ml @ 20 mls/hr IV . Q24H [facility] Rx#:[id number] Intake, IV Titration 74.256 415.900 14.919 Amount Norepinephrine 32 mg In 14.919 Sodium Chloride 0.9% 218 ml @ 0.14 MCG/KG/MIN 6. 759 mls/hr IV .Q24H [facility] Rx#:[id number] Norepinephrine 8 mg In 3.322 258.000 Sodium Chloride 0.9% 250 ml @ 0.05 MCG/KG/MIN 9. 965 mls/hr IV .Q24H [facility] Rx#:[id number] propofoL 1,000 mg In 70.934 Empty Bag 1 bag @ Titrate IV .Q0M [facility] Rx#: [id number] propofoL 1,000 mg In 157.900 Empty Bag 1 bag @ Titrate IV .Q0M [facility] Rx#: [id number] Tube Feeding 420 360 180 Blood Product 0 Rc As-1 Unit 0 [id number] Hemodialysis 900 Other 200 300 0 Output: Urine 45 140 95 Hemodialysis 3200 Other: Voiding Method Indwelling Catheter Indwelling Catheter ABP, PAP, CO, CI - Last Documented Arterial Blood Pressure 112/49 - Labs CBC & Chem 7: 03/05/20 04:30 03/05/20 04:30 Labs: Abnormal Lab Results - Last 24 Hours (Table) 03/04/20 03/04/20 03/04/20 Range/Units 12:43 15:05 15:30 WBC (3.8-10.6) k/uL RBC (4.30-5.90) m/uL Hgb (13.0-17.5) gm/dL Hct (39.0-53.0) % RDW (11.5-15.5) % Plt Count (150-450) k/uL Neutrophils # (Manual) (1.3-7.7) k/uL Monocytes # (Manual) (0-1.0) k/uL Metamyelocytes # (Man) (0) k/uL Myelocytes # (Manual) (0) k/uL Nucleated RBCs (0-0) /100 WBC ABG pCO2 27 L (35-45) mmHg ABG pO2 73 L (83-108) mmHg ABG HCO3 17 L (21-25) mmol/L ABG Total CO2 18 L (19-24) mmol/L ABG O2 Saturation 93.5 L (94-97) % Sodium 129 L (137-145) mmol/L Potassium 6.3 H* (3.5-5.1) mmol/L Carbon Dioxide 17 L (22-30) mmol/L BUN 93 H (9-20) mg/dL Creatinine 4.47 H (0.66-1.25) mg/dL Glucose 114 H (74-99) mg/dL POC Glucose (mg/dL) 148 H (75-99) mg/dL Calcium 7.0 L (8.4-10.2) mg/dL Total Bilirubin 2.5 H (0.2-1.3) mg/dL AST 1760 H (17-59) U/L ALT 373 H (4-49) U/L Alkaline Phosphatase 229 H (38-126) U/L Total Protein 4.5 L (6.3-8.2) g/dL Albumin 2.0 L (3.5-5.0) g/dL Crossmatch 03/04/20 03/04/20 03/05/20 Range/Units 18:02 19:00 00:52 WBC (3.8-10.6) k/uL RBC (4.30-5.90) m/uL Hgb (13.0-17.5) gm/dL Hct (39.0-53.0) % RDW (11.5-15.5) % Plt Count (150-450) k/uL Neutrophils # (Manual) (1.3-7.7) k/uL Monocytes # (Manual) (0-1.0) k/uL Metamyelocytes # (Man) (0) k/uL Myelocytes # (Manual) (0) k/uL Nucleated RBCs (0-0) /100 WBC ABG pCO2 (35-45) mmHg ABG pO2 (83-108) mmHg ABG HCO3 (21-25) mmol/L ABG Total CO2 (19-24) mmol/L ABG O2 Saturation (94-97) % Sodium 133 L (137-145) mmol/L Potassium (3.5-5.1) mmol/L Carbon Dioxide 20 L (22-30) mmol/L BUN 78 H (9-20) mg/dL Creatinine 3.84 H (0.66-1.25) mg/dL Glucose 107 H (74-99) mg/dL POC Glucose (mg/dL) 113 H 123 H (75-99) mg/dL Calcium 7.7 L (8.4-10.2) mg/dL Total Bilirubin 3.2 H (0.2-1.3) mg/dL AST 3709 H (17-59) U/L ALT 803 H (4-49) U/L Alkaline Phosphatase 278 H (38-126) U/L Total Protein 4.6 L (6.3-8.2) g/dL Albumin 2.1 L (3.5-5.0) g/dL Crossmatch 03/05/20 03/05/20 03/05/20 Range/Units 04:30 04:30 05:40 WBC 42.2 H (3.8-10.6) k/uL RBC 2.41 L (4.30-5.90) m/uL Hgb 6.5 L* (13.0-17.5) gm/dL Hct 20.9 L (39.0-53.0) % RDW 16.4 H (11.5-15.5) % Plt Count 494 H (150-450) k/uL Neutrophils # (Manual) 32.90 H (1.3-7.7) k/uL Monocytes # (Manual) 1.69 H (0-1.0) k/uL Metamyelocytes # (Man) 2.53 H (0) k/uL Myelocytes # (Manual) 3.38 H (0) k/uL Nucleated RBCs 16 H (0-0) /100 WBC ABG pCO2 (35-45) mmHg ABG pO2 (83-108) mmHg ABG HCO3 (21-25) mmol/L ABG Total CO2 (19-24) mmol/L ABG O2 Saturation (94-97) % Sodium 131 L (137-145) mmol/L Potassium (3.5-5.1) mmol/L Carbon Dioxide 19 L (22-30) mmol/L BUN 90 H (9-20) mg/dL Creatinine 4.35 H (0.66-1.25) mg/dL Glucose 112 H (74-99) mg/dL POC Glucose (mg/dL) (75-99) mg/dL Calcium 7.1 L (8.4-10.2) mg/dL Total Bilirubin 2.6 H (0.2-1.3) mg/dL AST 3178 H (17-59) U/L ALT 735 H (4-49) U/L Alkaline Phosphatase 251 H (38-126) U/L Total Protein 4.6 L (6.3-8.2) g/dL Albumin 2.1 L (3.5-5.0) g/dL Crossmatch See Detail 03/05/20 03/05/20 03/05/20 Range/Units 05:42 05:46 11:34 WBC (3.8-10.6) k/uL RBC (4.30-5.90) m/uL Hgb (13.0-17.5) gm/dL Hct (39.0-53.0) % RDW (11.5-15.5) % Plt Count (150-450) k/uL Neutrophils # (Manual) (1.3-7.7) k/uL Monocytes # (Manual) (0-1.0) k/uL Metamyelocytes # (Man) (0) k/uL Myelocytes # (Manual) (0) k/uL Nucleated RBCs (0-0) /100 WBC ABG pCO2 28 L (35-45) mmHg ABG pO2 148 H (83-108) mmHg ABG HCO3 19 L (21-25) mmol/L ABG Total CO2 (19-24) mmol/L ABG O2 Saturation 98.9 H (94-97) % Sodium (137-145) mmol/L Potassium (3.5-5.1) mmol/L Carbon Dioxide (22-30) mmol/L BUN (9-20) mg/dL Creatinine (0.66-1.25) mg/dL Glucose (74-99) mg/dL POC Glucose (mg/dL) 127 H 129 H (75-99) mg/dL Calcium (8.4-10.2) mg/dL Total Bilirubin (0.2-1.3) mg/dL AST (17-59) U/L ALT (4-49) U/L Alkaline Phosphatase (38-126) U/L Total Protein (6.3-8.2) g/dL Albumin (3.5-5.0) g/dL Crossmatch Microbiology - Last 24 Hours (Table) 03/01/20 09:10 Blood Culture - Preliminary Blood No Growth after 96 hours 03/02/20 08:30 CSF Gram Stain - Preliminary Cerebral Spinal Fluid CSF Culture - Preliminary 03/01/20 09:10 Gram Stain - Final Pleural Fluid Body Fluid Culture - Final
[2020-03-05] MEDS: SODIUM CHLORIDE 0.9% 1,000 ML IV SCH (13:01)
[2020-03-05] MEDS ORDERED: FUROSEMIDE 10 MG/ML 10 ML VIAL IV STA (14:27)
[2020-03-05] MEDS: MORPHINE SULFATE 2 MG/ML SYRINGE IVP PRN (15:03)
[2020-03-05] MEDS: DARBEPOETIN ALFA 40 MCG/0.4 ML SYRINGE SQ SCH (15:07)
[2020-03-05 17:38] LABS: Glucose,Whole Blood 120 mg/dL (75-99)
[2020-03-05 18:54] LABS: Calcium 7.5 mg/dL (8.4-10.2); Potassium 4.7 mmol/L (3.5-5.1)
[2020-03-05 18:55] LABS: Anisocytosis Slight; HCT 23.3 % (39.0-53.0); HGB 7.5 gm/dL (13.0-17.5); Hypochromasia Moderate; MCH 28.2 pg (25.0-35.0); MCHC 32.1 g/dL (31.0-37.0); MCV 88.1 fL (80.0-100.0); Mean Platelet Volume 12.1; Platelet Count 462 k/uL (150-450); Poikilocytosis Slight; RBC 2.64 m/uL (4.30-5.90); RDW 16.5 % (11.5-15.5)
--- NOTE | 2020-03-05 20:03 | PN ---
PROGRESS NOTE DATE OF SERVICE: 03/05/2020 REASON FOR FOLLOWUP: C difficile colitis, leukocytosis and fever. INTERVAL HISTORY: The patient has been running a low-grade fever of 99.4. The patient did have a problem with a heart block, treated by Cardiology, and pulmonary edema. His rhythm has been stabilized. He received Levophed and also received hemodialysis with ultrafiltration of more than 3 L of fluid. Patient's overall pressor requirement has significant dropped to just 3 mcg of Levophed at this point. The patient has been tolerating his tube feed and no worsening diarrhea has been reported. FiO2 is currently stable at 40% and no significant purulent secretion through the ET reported by the nursing staff. PHYSICAL EXAMINATION: Blood pressure 116/51 with a pulse of 111, temperature 99.4. He is 97% on 40% FiO2. General description is an elderly male lying in bed in no distress. RESPIRATORY SYSTEM: Unlabored breathing with decreased breath sounds at the base. No wheeze. HEART: S1, S2. Regular rate and rhythm. ABDOMEN: Soft. Mild distention. No guarding or rigidity. EXTREMITIES: No edema of the feet. LABS: Hemoglobin 6.5, white count 42.2, BUN of 90, creatinine 4.35. Liver enzymes are elevated as well. DIAGNOSTIC IMPRESSION AND PLAN: Patient with low-grade fever and elevated white count which is likely multifactorial in this patient who did have a possible shock liver and acute tubular necrosis with renal failure requiring hemodialysis, now with evidence of hemoglobin down to 6.5; no obvious focus, possible abdominal source of hematoma needs to be ruled out in this patient who did have a history of fall and is status post splenectomy the patient is currently covered with oral vancomycin, and no worsening diarrhea has been reported. The patient did have multiple cultures, including pleural fluid, sputum, blood and urine has been negative. Will hold on any further systemic antibiotic therapy at this point. at the bedside. Multiple questions. Those were answered in layman's terms. Overall prognosis remains guarded. MMODL / IJN: [id number] /
[2020-03-05] MEDS: TAMSULOSIN 0.4 MG CAP.ER.24H PO SCH (20:08)
[2020-03-05] MEDS: FINASTERIDE 5 MG TAB PO SCH (20:08)
[2020-03-05 22:19] LABS: Band Neutrophils % 10 %; Metamyelocytes % 9 %; Myelocytes % 5 %; Neutrophils % (M) 61 %; Nucleated Red Blood Cells 34 /100 WBC (0-0); Total Cells Counted 200
[2020-03-05 22:20] LABS: Anisocytosis (M) Present; Eosinophils # (M) 0.43 k/uL (0-0.7); Howell-Jolly Bodies Present; Lymphocytes # (M) 3.02 k/uL (1.0-4.8); Metamyelocytes # (M) 3.88 k/uL (0); Monocytes # (M) 3.45 k/uL (0-1.0); Myelocytes # (M) 2.16 k/uL (0); Poikilocytosis (M) Present; Polychromasia Present; Target Cells Present; WBC 43.1 k/uL (3.8-10.6)
[2020-03-05 22:40] LABS: Glucose,Whole Blood 123 mg/dL (75-99)
[2020-03-06] MEDS: IPRATROPIUM-ALBUTEROL 3 ML NEB INHALATION SCH ×7 (00:24→23:11)
--- NOTE | 2020-03-06 03:36 | P.PN ---
Subjective 69-year-old male was cleaning gutters fell from skin feet ladder was brought into emergency department found to have several left-sided fractures left-sided pneumothorax with a left-sided chest tube presently patient is presently intubated patient has multiple left-sided fractures from third to seventh rib patient also had a splenectomy for splenic injury. Patient is presently sedated with propofol and also morphine drip patient is presently on ventilatory support blood gases showed normal pH pCO2 and pO2 are within normal limits as well pat ient is presently onZosyn patient had lactic acidosis secondary tolactated Ringer's. Patient is hyperchloremic because of which probably will start him on half-normal saline. 02/19/2020 Patient is expected today and shortly after that patient didn't tolerate that and patient ended up undergoing an atrial fibrillation patient was started on amiodarone patient was subsequently reintubated. Patient is bit hyponatremic because of extensive switching the IV fluids to normal saline instead of half- normal saline. Patient is also getting amiodarone. D5 water. Patient is not requiring any pressors at this time. Please refer to intensive is documentation for further details of ventilator settings. 02/20/2020 Patient developed ongoing trial patient is having sedation vacation patient heart rate is better controlled patient overall clinical condition is bit better today 02/21/2020 Patient still in the ICU, he is intubated and sedated. Chest tube is in place and it hasn't output about 325 in 24 hours, propofol was switched to Paradox by critical care team. Pulmonary/critical care troponin measuring the event, sugar was low but most likely this is a false reading because patient is edematous. Surgical wound in the middle of the abdomen it looks clean and dry and closed. Patient is getting IV morphine. Creatinine and electrolytes are normal. Echocardiogram showing ejection fraction of 55-60% with moderate to severe mitral regurgitation His WBCs 17.3 K. Liver enzymes are trending down 02/22/2020 Patient the ICU, he could not tolerate the current sedative and he had to be placed back on the propofol, he got agitated overnight and he needed restraints. These making about 1 5200 mL of chest tube drainage every 12 hours Lasix is added. Also he had low-grade temperature and mild increase in WBC, he still on Zosyn and IV on the case. Cultures are negative so far 02/23/2020 Patient remains in the ICU, intubated and sedated on a propofol, he looks calm. Patient undergoing sedation holiday and pulmonary team managing his vent He still has low-grade fever 99.7, leukocytosis or interrupted 22K. BMP is unremarkable. Cultures are negative so far, infectious disease and pulmonary/critical care team on the case. Chest x-ray showing unchanged radiographic appearance of tubes and lines, mildly improved aeration of bilateral lung bases with persistent small bilateral pleural effusions and bibasilar air space opacity and multiple left-sided displaced rib fractures Currently he is on Zosyn 02/24/2020 Patient still intubated and sedated, he undergoing sedation holiday and he wakes up then to be breathing trial Patient is improving on Zosyn, no fever however culture are negative. Patient is still getting intermittent feeding. Chest tube still on the left side with about 150-200 mL of discharge every 12 hour period , surgery team on the case patient may need a PEG tube and tracheostomy if he fails a voiding trial 02/24 Patient remains in the ICU intubated and sedated, despite being on Precedex. Today he developed A. fib with RVR, he has history of A. fib. before, he Is currently not on anticoagulation other than DVT prophylaxis with Lovenox due to his hematoma. Patient was started on amiodarone drip, his rate is controlled, is controlled. Computed tomography scan of the abdomen is requested to assess his hematoma. He still has fever at 100.1 Hemoglobin is 8.8, which is stable compared to yesterday. PH normal 7.4 with normal pCO2 at 43 and low pO2 at 68, BMP is unremarkable and sugar is controlled. Surgical team were consulted for possible PEG and tracheostomy Prognosis remains very guarded. 02/26/20 Patient still on ventilation, he got tracheostomy yesterday and hysterectomy that well. Sedation is off however patient is restless and agitated, however patient does not follow, He developed another atrial fibrillation with rapid rate and he was started on amiodarone drip at 0.5. Cardizem may be added as well. Cardiology of the case Surgery team are following the patient for possible PEG placement. Possibly today. Patient remains on Zosyn, amiodarone, which can be switched to oral per Beam Department Supervisor and Cardizem as needed 02/28/20 Patient remains in the ICU, his status post tracheostomy, PEG tube placement was postponed f by surgery team. He still has PICC line and left-sided chest tube with more than 100 mL of fluid draining but it is serous. Antibiotics has changed from Zosyn to vancomycin and cefepime, catheter tip culture and sensitivity was sent. CT of the abdomen and pelvis showing increased left basilar, CT. Neurologist neurologist evaluated the patient and EEG is negative for epileptiform activity but showing severe encephalopathy WBC is 19 KI patient has no fever today Neurologist recommended MRI of the brain and cervical spine when she is more stable 02/29/20 Patient remains intubated and sedated on a propofol, tracheostomy in this place, also left-sided chest tube with service discharge only. Patient underwent bronchoscopy and bronchoalveolar lavage of the right upper lobe, and follow-up the results Patient is hemodynamically stable WBC still 19 K and sodium 148. Patient remains on antibiotics per infectious disease recommendation. And she was followed also by pulmonary/critical care team, surgery team. 03/01/20 Patient remains intubated and sedated, any target dose of sedation actually. He still have PICC line, tracheostomy, left chest tube service discharge and has Nolan catheter PEG tube placement was postponed currently. Patient showing low-grade fever today. And WBC went up to 20 9K. Creatinine is normal and sodium 148. He is still on mechanical ventilation and pulmonary/ critical care team following the case. Currently his on 10 PEEP and FiO2 of 60%. EEG showing no epileptiform activity and moderate to severe encephalopathy. Neurology service on the case and the recommended to proceed with lumbar puncture. Also follow-up. Bronchoscopy lavage results Possible discontinue the chest tube for pulmonary service. Patient is followed by several consultants including pulmonary, cardiology, infectious disease, neurology and surgery 03/02/20 Patient remains intubated and sedated on a propofol, no sedation holiday oriented trial today Patient had a lumbar puncture today and results are likely showing meningitis or encephalitis per neurology was on the case. Patient continued to have left-sided chest tube was satisfactory draining, tracheostomy in place, he has to proceeding, PEG placement is postponed for now. he was started on Lasix drip, also I continued on Cardizem drip. Infectious disease on the case and added oral vancomycin today for C. diff colitis. His IV vancomycin and cefepime were stopped per infectious disease recommendation. Prognosis remains guarded Patient is been followed by several consultants including pulmonary/critical care team, neurology, infectious disease, cardiology and surgery teams 03/03/20 Patient intubated and sedated in the ICU, 1 hour sedation holiday was done and patient could not tolerate that well, he was tachypneic, tachycardic and he does not follow commands. Renal function is worsening today to 2.8, nephrology consult was placed. Left-sided chest tube was taken out. PICC line is in place, Nolan catheter is in place. Sugar is controlled. Generally the patient is not improving and his condition become more complex, despite several treatments and sore consultants on the case included pulmonary/critical care team, general surgery, legal arbitrator, infectious disease, neurologist and claim clerk And management and further recommendation. Lasix drip was stopped today. He remains on oral vancomycin, vitamin daily, Seroquel, Cardizem 60 mg by mouth 4 times a day. On amiodarone and Lipitor 03/04/20 Patient remains critically ill in the ICU, still intubated and sedated, he underwent sedation holiday this morning, also hemodialysis catheter was placed for him for worsening creatinine to 4.4 today associated with only Curia and generalized edema, and hemodialysis was started today. Also his hospital course was complicated today by third degree heart block, patient has to be started on Levophed with central line and arterial line placed Patient remains on oral vancomycin for C. diff. Consultants on the case including pulmonary/critical care, cardiology, nephrology, neurology, surgery 03/05/2020 Patient remains in the ICU sedated and intubated. Is undergoing sedation holiday. Hemodialysis is started for the patient for acute renal failure, possibly related to his shock state. Still on oral vancomycin for C. diff. Antibiotics per infectious disease team Patient remains on amiodarone for A. fib. Cardizem drip is on hold. Patient needs pressors on levphed WBC still high 40 3.1K. Glucose controlled Several consultants on the case including pulmonary/critical care, legal arbitrator, claim clerk, neurologist creatinine is 3.6. Review of system: N/a Active Medications Generic Name Dose Route Start Last Admin Trade Name Freq PRN Reason Stop Dose Admin Acetaminophen 650 mg 02/20/20 22:00 03/01/20 13:25 Tylenol Tab PO 650 mg Q6HR PRN Administration Fever and/ or Pain Albuterol/Ipratropium 3 ml 03/02/20 12:00 03/06/20 00:24 Duoneb 0.5 Mg-3 Mg/3 Ml Soln INHALATION 3 ml RT-Q4H BETTINA Administration Amiodarone HCl 200 mg 02/27/20 09:00 03/05/20 20:07 Cordarone PO 200 mg BID BETTINA Administration Darbepoetin Telly 40 mcg 03/05/20 09:30 03/05/20 15:07 Darbepoetin Telly 40 Mcg/0.4 Ml Syringe SQ 40 mcg Q7D BETTINA Administration Enoxaparin Sodium 30 mg 03/04/20 09:00 03/05/20 08:36 Lovenox SQ 30 mg DAILY BETTINA Administration Finasteride 5 mg 02/18/20 21:00 03/05/20 20:08 Proscar PO 5 mg HS BETTINA Administration Sodium Chloride 1,000 mls @ 20 mls/hr 02/19/20 11:45 03/05/20 13:01 Saline 0.9% IV 20 mls/hr .Q24H BETTINA Administration Propofol 1,000 mg/ IV Solution 100 mls @ 0 mls/hr 03/04/20 18:15 03/06/20 02:20 IV 25 mcg/kg/min .Q0M BETTINA 15.69 mls/hr Administration Protocol Titrate Norepinephrine Bitartrate 32 250 mls @ 6.759 mls/hr 03/05/20 04:45 03/05/20 21:44 mg/ Sodium Chloride IV 0 mcg/kg/min .Q24H BETTINA 0 mls/hr Titration Protocol 0.14 MCG/KG/MIN Lactated Ringer's 1,000 mls @ 20 mls/hr 03/06/20 00:30 Lactated Ringers IV .Q24H BETTINA Insulin Aspart 0 unit 02/18/20 13:00 03/05/20 23:05 Novolog SQ Not Given Q6HR [facility] Protocol Iopamidol 30 ml 03/05/20 08:44 Iopamidol Contrast (Oral Use) Vial PO 03/06/20 08:[address] Scan Miscellaneous Information 1 each 02/18/20 05:19 Magnesium Per Protocol MISCELLANE DAILY PRN Per Protocol Protocol Miscellaneous Information 1 each 02/19/20 05:38 Potassium Per Protocol MISCELLANE DAILY PRN Per Protocol Protocol Morphine Sulfate 2 mg 03/02/20 11:48 03/05/20 15:03 Morphine Sulfate (Inj) IVP 2 mg Q2H PRN Administration Pain/Discomfort Morphine Sulfate 4 mg 03/02/20 11:48 Morphine Sulfate (Inj) IVP Q2H PRN Pain Naloxone HCl 0.2 mg 02/17/20 19:37 Narcan IV Q2M PRN Opioid Reversal Pantoprazole Sodium 40 mg 03/03/20 09:00 03/05/20 08:36 Protonix IVP 40 mg DAILY BETTINA Administration Sodium Bicarbonate 650 mg 03/03/20 09:15 03/05/20 21:25 Sodium Bicarbonate Tab PO 650 mg TID BETTINA Administration Sodium Chloride 10 ml 02/26/20 15:12 Saline Flush IV Q4HR PRN PICC Line Sodium Chloride 10 ml 03/04/20 09:00 03/04/20 10:48 Saline Flush IV 10 ml WEEKLY BETTINA Administration Sodium Chloride 20 ml 02/26/20 15:12 Saline Flush IV Q4HR PRN PICC Line Tamsulosin HCl 0.8 mg 02/18/20 21:00 03/05/20 20:08 Flomax PO 0.8 mg HS BETTINA Administration Thiamine HCl 100 mg 02/27/20 10:45 03/05/20 08:36 Vitamin B-1 PO 100 mg DAILY BETTINA Administration Vancomycin HCl 250 mg 03/02/20 18:00 03/05/20 23:06 Vancomycin Oral Solution 250 Mg/5 Ml Bottle PO 250 mg Q6HR BETTINA Administration Objective - Vital Signs Vital signs: Vital Signs Temp 99.0 F 03/05/20 11:57 Pulse 109 H 03/05/20 13:00 Resp 27 H 03/05/20 13:00 BP 114/52 03/05/20 11:57 Pulse Ox 99 03/05/20 13:00 Intake & Output 03/04/20 03/05/20 03/05/20 18:59 06:59 18:59 Intake Total 476.988 5955.900 336.735 Output Total 45 0880 7020 Balance 889.256 -1124.100 -2173.265 Weight 103 kg 104.6 kg 104.6 kg Intake: IV 240 240 80 Sodium Chloride 0.9% 1, 240 240 80 000 ml @ 20 mls/hr IV . Q24H BETTINA Rx#:[id number] Intake, IV Titration 74.256 415.900 46.735 Amount Norepinephrine 32 mg In 14.919 Sodium Chloride 0.9% 218 ml @ 0.14 MCG/KG/MIN 6. 759 mls/hr IV .Q24H BETTINA Rx#:[id number] Norepinephrine 8 mg In 3.322 258.000 Sodium Chloride 0.9% 250 ml @ 0.05 MCG/KG/MIN 9. 965 mls/hr IV .Q24H BETTINA Rx#:[id number] propofoL 1,000 mg In 70.934 Empty Bag 1 bag @ Titrate IV .Q0M BETTINA Rx#: [id number] propofoL 1,000 mg In 157.900 31.816 Empty Bag 1 bag @ Titrate IV .Q0M BETTINA Rx#: [id number] Tube Feeding 420 360 210 Blood Product 0 Rc As-1 Unit 0 [id number] Hemodialysis 900 Other 200 300 0 Output: Urine 45 140 110 Hemodialysis 3200 2400 Other: Voiding Method Indwelling Catheter Indwelling Catheter ABP, PAP, CO, CI - Last Documented Arterial Blood Pressure 124/55 - Exam -GENERAL: The patient is intubated and sedated HEENT: Pupils are round and equally reacting to light. EOMI. No scleral icterus. No conjunctival pallor. Normocephalic, atraumatic. No pharyngeal erythema. No thyromegaly. CARDIOVASCULAR: S1 and S2 present. No murmurs, rubs, or gallops. -PULMONARY: Chest is clear to auscultation, no wheezing or crackles. Left-sided chest tube midline vertical surgical wound is clean and dry and closed ABDOMEN: Soft, nontender, nondistended, normoactive bowel sounds. No palpable organomegaly. MUSCULOSKELETAL: No joint swelling or deformity. EXTREMITIES: No cyanosis, clubbing, or pedal edema. NEUROLOGICAL: Gross neurological examination did not reveal any focal deficits. SKIN: No rashes. no petechiae. - Labs CBC & Chem 7: 03/05/20 18:15 03/05/20 18:15 Labs: Abnormal Lab Results - Last 24 Hours (Table) 03/04/20 03/04/20 03/04/20 Range/Units 15:05 15:30 18:02 WBC (3.8-10.6) k/uL RBC (4.30-5.90) m/uL Hgb (13.0-17.5) gm/dL Hct (39.0-53.0) % RDW (11.5-15.5) % Plt Count (150-450) k/uL Neutrophils # (Manual) (1.3-7.7) k/uL Monocytes # (Manual) (0-1.0) k/uL Metamyelocytes # (Man) (0) k/uL Myelocytes # (Manual) (0) k/uL Nucleated RBCs (0-0) /100 WBC ABG pCO2 27 L (35-45) mmHg ABG pO2 73 L (83-108) mmHg ABG HCO3 17 L (21-25) mmol/L ABG Total CO2 18 L (19-24) mmol/L ABG O2 Saturation 93.5 L (94-97) % Sodium 129 L (137-145) mmol/L Potassium 6.3 H* (3.5-5.1) mmol/L Carbon Dioxide 17 L (22-30) mmol/L BUN 93 H (9-20) mg/dL Creatinine 4.47 H (0.66-1.25) mg/dL Glucose 114 H (74-99) mg/dL POC Glucose (mg/dL) 113 H (75-99) mg/dL Calcium 7.0 L (8.4-10.2) mg/dL Total Bilirubin 2.5 H (0.2-1.3) mg/dL AST 1760 H (17-59) U/L ALT 373 H (4-49) U/L Alkaline Phosphatase 229 H (38-126) U/L Total Protein 4.5 L (6.3-8.2) g/dL Albumin 2.0 L (3.5-5.0) g/dL Crossmatch 03/04/20 03/05/20 03/05/20 Range/Units 19:00 00:52 04:30 WBC 42.2 H (3.8-10.6) k/uL RBC 2.41 L (4.30-5.90) m/uL Hgb 6.5 L* (13.0-17.5) gm/dL Hct 20.9 L (39.0-53.0) % RDW 16.4 H (11.5-15.5) % Plt Count 494 H (150-450) k/uL Neutrophils # (Manual) 32.90 H (1.3-7.7) k/uL Monocytes # (Manual) 1.69 H (0-1.0) k/uL Metamyelocytes # (Man) 2.53 H (0) k/uL Myelocytes # (Manual) 3.38 H (0) k/uL Nucleated RBCs 16 H (0-0) /100 WBC ABG pCO2 (35-45) mmHg ABG pO2 (83-108) mmHg ABG HCO3 (21-25) mmol/L ABG Total CO2 (19-24) mmol/L ABG O2 Saturation (94-97) % Sodium 133 L (137-145) mmol/L Potassium (3.5-5.1) mmol/L Carbon Dioxide 20 L (22-30) mmol/L BUN 78 H (9-20) mg/dL Creatinine 3.84 H (0.66-1.25) mg/dL Glucose 107 H (74-99) mg/dL POC Glucose (mg/dL) 123 H (75-99) mg/dL Calcium 7.7 L (8.4-10.2) mg/dL Total Bilirubin 3.2 H (0.2-1.3) mg/dL AST 3709 H (17-59) U/L ALT 803 H (4-49) U/L Alkaline Phosphatase 278 H (38-126) U/L Total Protein 4.6 L (6.3-8.2) g/dL Albumin 2.1 L (3.5-5.0) g/dL Crossmatch 03/05/20 03/05/20 03/05/20 Range/Units 04:30 05:40 05:42 WBC (3.8-10.6) k/uL RBC (4.30-5.90) m/uL Hgb (13.0-17.5) gm/dL Hct (39.0-53.0) % RDW (11.5-15.5) % Plt Count (150-450) k/uL Neutrophils # (Manual) (1.3-7.7) k/uL Monocytes # (Manual) (0-1.0) k/uL Metamyelocytes # (Man) (0) k/uL Myelocytes # (Manual) (0) k/uL Nucleated RBCs (0-0) /100 WBC ABG pCO2 (35-45) mmHg ABG pO2 (83-108) mmHg ABG HCO3 (21-25) mmol/L ABG Total CO2 (19-24) mmol/L ABG O2 Saturation (94-97) % Sodium 131 L (137-145) mmol/L Potassium (3.5-5.1) mmol/L Carbon Dioxide 19 L (22-30) mmol/L BUN 90 H (9-20) mg/dL Creatinine 4.35 H (0.66-1.25) mg/dL Glucose 112 H (74-99) mg/dL POC Glucose (mg/dL) 127 H (75-99) mg/dL Calcium 7.1 L (8.4-10.2) mg/dL Total Bilirubin 2.6 H (0.2-1.3) mg/dL AST 3178 H (17-59) U/L ALT 735 H (4-49) U/L Alkaline Phosphatase 251 H (38-126) U/L Total Protein 4.6 L (6.3-8.2) g/dL Albumin 2.1 L (3.5-5.0) g/dL Crossmatch See Detail 03/05/20 03/05/20 Range/Units 05:46 11:34 WBC (3.8-10.6) k/uL RBC (4.30-5.90) m/uL Hgb (13.0-17.5) gm/dL Hct (39.0-53.0) % RDW (11.5-15.5) % Plt Count (150-450) k/uL Neutrophils # (Manual) (1.3-7.7) k/uL Monocytes # (Manual) (0-1.0) k/uL Metamyelocytes # (Man) (0) k/uL Myelocytes # (Manual) (0) k/uL Nucleated RBCs (0-0) /100 WBC ABG pCO2 28 L (35-45) mmHg ABG pO2 148 H (83-108) mmHg ABG HCO3 19 L (21-25) mmol/L ABG Total CO2 (19-24) mmol/L ABG O2 Saturation 98.9 H (94-97) % Sodium (137-145) mmol/L Potassium (3.5-5.1) mmol/L Carbon Dioxide (22-30) mmol/L BUN (9-20) mg/dL Creatinine (0.66-1.25) mg/dL Glucose (74-99) mg/dL POC Glucose (mg/dL) 129 H (75-99) mg/dL Calcium (8.4-10.2) mg/dL Total Bilirubin (0.2-1.3) mg/dL AST (17-59) U/L ALT (4-49) U/L Alkaline Phosphatase (38-126) U/L Total Protein (6.3-8.2) g/dL Albumin (3.5-5.0) g/dL Crossmatch Microbiology - Last 24 Hours (Table) 03/01/20 09:10 Blood Culture - Preliminary Blood No Growth after 96 hours 03/02/20 08:30 CSF Gram Stain - Preliminary Cerebral Spinal Fluid CSF Culture - Preliminary 03/01/20 09:10 Gram Stain - Final Pleural Fluid Body Fluid Culture - Final Assessment and Plan Assessment: - Fall from ladder with trauma to chest and abdomen with traumatic hydro- pneumothorax , status post chest tube -Splenic injury status post splenectomy -Acute ventilatory dependent respiratory failure hypoxic secondary to polytrau ma, pneumothorax and splenic injury, continue with the ventilatory support and wean off as tolerated. - heart block -Acute kidney injury needing hemodialysis due to oliguria and fluid overload -A. fib with RVR -Positive C. diff tests , for C. diff colitis, continue with oral vancomycin -Shock state, multifactorial be septic versus others,. requiring any pressors -left basilar opacity, stable -Traumatic left-sided rib fractures, status post left chest tube removed -hyponatremia -Hemorrhagic shock on admission which improved patient received 4 units of PRBC transfusion -acute blood loss anemia from polytrauma pneumoperitoneum -history of carotid artery disease with previous bypass surgery -Hyperlipidemia -Benign prostatic hypertrophy Several consultants on the case and follow-up with a recommendation including pulmonary/critical care team, legal arbitrator, infectious disease, neurologist, n ephrologist and general surgeon.
[2020-03-06 04:09] LABS: Anisocytosis Slight; HCT 22.4 % (39.0-53.0); HGB 7.2 gm/dL (13.0-17.5); Hypochromasia Moderate; MCH 28.2 pg (25.0-35.0); MCHC 32.3 g/dL (31.0-37.0); MCV 87.5 fL (80.0-100.0); Mean Platelet Volume 12.2; Platelet Count 437 k/uL (150-450); Poikilocytosis Slight; RBC 2.56 m/uL (4.30-5.90); RDW 16.7 % (11.5-15.5)
[2020-03-06 04:24] LABS: Calcium 7.6 mg/dL (8.4-10.2); Potassium 4.3 mmol/L (3.5-5.1); Total Bilirubin 2.1 mg/dL (0.2-1.3); Total Protein 4.5 g/dL (6.3-8.2)
[2020-03-06 05:30] LABS: ABG Base Excess -2.2 mmol/L; ABG HCO3 22 mmol/L (21-25); ABG Oxygen Saturation 96.1 % (94-97); ABG PCO2 31 mmHg (35-45); ABG PH 7.45 (7.35-7.45); ABG PO2 84 mmHg (83-108); ABG TCO2 23 mmol/L (19-24); Allen Test Performed? Yes
[2020-03-06] MEDS: INSULIN ASPART (NovoLOG) 100 UNIT/ML VIAL SQ SCH ×4 (05:30→23:50)
[2020-03-06] MEDS: VANCOMYCIN ORAL SOLUTION 250 MG/5 ML BOTTLE PO SCH ×4 (05:32→23:53)
[2020-03-06 05:44] LABS: Band Neutrophils % 31 %; Metamyelocytes % 11 %; Myelocytes % 4 %; Neutrophils % (M) 44 %; Nucleated Red Blood Cells 9 /100 WBC (0-0); Total Cells Counted 200
[2020-03-06 05:45] LABS: Metamyelocytes # (M) 5.87 k/uL (0); Monocytes # (M) 2.67 k/uL (0-1.0); Myelocytes # (M) 2.14 k/uL (0); Polychromasia Present; Target Cells Present; WBC 53.4 k/uL (3.8-10.6)
[2020-03-06 05:46] LABS: Large Platelets Present
[2020-03-06] MEDS: LACTATED RINGERS 1,000 ML IV SCH ×2 (06:48→23:55)
[2020-03-06] MEDS: NOREPINEPHRINE 32 MG in SODIUM CHLORIDE 0.9% 218 ML IV SCH (06:48)
[2020-03-06] MEDS ORDERED: HEPARIN SODIUM,PORCINE 5,000 UNIT/ML 1 ML VIAL ONE (08:00)
--- NOTE | 2020-03-06 08:02 | XR ---
EXAMINATION TYPE: XR chest 1V DATE OF EXAM: 03/06/2020 CLINICAL HISTORY: Intubated/trach TECHNIQUE: Semiupright portable view of the chest COMPARISON: 03/05/2020 chest radiograph FINDINGS: Tracheostomy tube remains over the tracheal air column. Enteric tube distal tip over the l eft upper quadrant projected stomach. Left PICC distal tip over the cavoatrial Sternotomy wires. The cardiomediastinal silhouette is unchanged. There is redemonstrated diffuse airspace. Increased bilate ral pleural effusions. No pneumothorax seen. The osseous structures are intact. IMPRESSION: Redemonstrated diffuse airspace opacities. Increased small bilateral pleural effusions ve rsus 03/05/2020.
[2020-03-06] MEDS: AMIODARONE 200 MG TAB PO SCH ×2 (08:55→21:03)
[2020-03-06] MEDS: SODIUM BICARBONATE TAB 650 MG TAB PO SCH ×3 (08:55→21:03)
[2020-03-06] MEDS: PANTOPRAZOLE 40 MG/10 ML VIAL IVP SCH (08:55)
[2020-03-06] MEDS: ENOXAPARIN 30 MG/0.3 ML SYRINGE SQ SCH (08:55)
[2020-03-06] MEDS: THIAMINE 100 MG TAB PO SCH (08:55)
--- NOTE | 2020-03-06 09:16 | P.PN ---
Subjective patient is seen in follow-up for acute kidney injury. started on hemodialysis March 04 due to oliguria and hyperkalemia. tolerated 2 L ultrafiltration yesterday. tolerating dialysis well right now but blood pressure on the lower side. He's off Levophed. Receiving tube feeding. Vital signs are stable. General: The patient appeared well nourished and normally developed. HEENT: Head exam is unremarkable. Neck is without jugular venous distension. LUNGS: Breath sounds decreased. HEART: Rate and Rhythm are regular. ABDOMEN: soft, nondistended. EXTREMITITES: 2+ edema. scrotal edema noted. Objective - Vital Signs Vital signs: Vital Signs Temp 99.3 F 03/06/20 08:00 Pulse 105 H 03/06/20 09:00 Resp 30 H 03/06/20 09:00 BP 116/51 03/05/20 14:23 Pulse Ox 98 03/06/20 09:00 Intake & Output 03/05/20 03/06/20 03/06/20 18:59 06:59 18:59 Intake Total 934.228 818.094 106.644 Output Total 2585 220 35 Balance -1650.772 598.094 71.644 Weight 104.6 kg 104.7 kg Intake: IV 180 273 46 Pressure bag 33 6 Sodium Chloride 0.9% 1, 180 240 40 000 ml @ 20 mls/hr IV . Q24H [facility] Rx#:[id number] Intake, IV Titration 84.228 195.094 0.644 Amount Norepinephrine 32 mg In 23.438 4.25 0.644 Sodium Chloride 0.9% 218 ml @ 0.14 MCG/KG/MIN 6. 759 mls/hr IV .Q24H [facility] Rx#:[id number] propofoL 1,000 mg In 60.790 190.844 Empty Bag 1 bag @ Titrate IV .Q0M BETTINA Rx#: [id number] Tube Feeding 360 330 60 Blood Product 310 Rc As-1 Unit 310 [id number] Other 0 20 Output: Urine 185 220 35 Hemodialysis 2400 Other: Voiding Method Indwelling Catheter Indwelling Catheter # Bowel Movements 1 ABP, PAP, CO, CI - Last Documented Arterial Blood Pressure 157/71 - Labs CBC & Chem 7: 03/06/20 04:00 03/06/20 04:00 Labs: Abnormal Lab Results - Last 24 Hours (Table) 03/05/20 03/05/20 03/05/20 Range/Units 05:40 11:34 17:37 WBC (3.8-10.6) k/uL RBC (4.30-5.90) m/uL Hgb (13.0-17.5) gm/dL Hct (39.0-53.0) % RDW (11.5-15.5) % Plt Count (150-450) k/uL Neutrophils # (Manual) (1.3-7.7) k/uL Monocytes # (Manual) (0-1.0) k/uL Eosinophils # (Manual) (0-0.7) k/uL Metamyelocytes # (Man) (0) k/uL Myelocytes # (Manual) (0) k/uL Nucleated RBCs (0-0) /100 WBC ABG pCO2 (35-45) mmHg Sodium (137-145) mmol/L BUN (9-20) mg/dL Creatinine (0.66-1.25) mg/dL Glucose (74-99) mg/dL POC Glucose (mg/dL) 129 H 120 H (75-99) mg/dL Calcium (8.4-10.2) mg/dL Total Bilirubin (0.2-1.3) mg/dL AST (17-59) U/L ALT (4-49) U/L Alkaline Phosphatase (38-126) U/L Total Protein (6.3-8.2) g/dL Albumin (3.5-5.0) g/dL Crossmatch See Detail 03/05/20 03/05/20 03/05/20 Range/Units 18:15 18:15 22:39 WBC 43.1 H (3.8-10.6) k/uL RBC 2.64 L (4.30-5.90) m/uL Hgb 7.5 L (13.0-17.5) gm/dL Hct 23.3 L (39.0-53.0) % RDW 16.5 H (11.5-15.5) % Plt Count 462 H (150-450) k/uL Neutrophils # (Manual) 30.60 H (1.3-7.7) k/uL Monocytes # (Manual) 3.45 H (0-1.0) k/uL Eosinophils # (Manual) (0-0.7) k/uL Metamyelocytes # (Man) 3.88 H (0) k/uL Myelocytes # (Manual) 2.16 H (0) k/uL Nucleated RBCs 34 H (0-0) /100 WBC ABG pCO2 (35-45) mmHg Sodium 135 L (137-145) mmol/L BUN 75 H (9-20) mg/dL Creatinine 3.60 H (0.66-1.25) mg/dL Glucose 107 H (74-99) mg/dL POC Glucose (mg/dL) 123 H (75-99) mg/dL Calcium 7.5 L (8.4-10.2) mg/dL Total Bilirubin (0.2-1.3) mg/dL AST (17-59) U/L ALT (4-49) U/L Alkaline Phosphatase (38-126) U/L Total Protein (6.3-8.2) g/dL Albumin (3.5-5.0) g/dL Crossmatch 03/06/20 03/06/20 03/06/20 Range/Units 04:00 04:00 05:27 WBC 53.4 H* (3.8-10.6) k/uL RBC 2.56 L (4.30-5.90) m/uL Hgb 7.2 L (13.0-17.5) gm/dL Hct 22.4 L (39.0-53.0) % RDW 16.7 H (11.5-15.5) % Plt Count (150-450) k/uL Neutrophils # (Manual) 40.00 H (1.3-7.7) k/uL Monocytes # (Manual) 2.67 H (0-1.0) k/uL Eosinophils # (Manual) 1.60 H (0-0.7) k/uL Metamyelocytes # (Man) 5.87 H (0) k/uL Myelocytes # (Manual) 2.14 H (0) k/uL Nucleated RBCs 9 H (0-0) /100 WBC ABG pCO2 31 L (35-45) mmHg Sodium 133 L (137-145) mmol/L BUN 82 H (9-20) mg/dL Creatinine 4.20 H (0.66-1.25) mg/dL Glucose (74-99) mg/dL POC Glucose (mg/dL) (75-99) mg/dL Calcium 7.6 L (8.4-10.2) mg/dL Total Bilirubin 2.1 H (0.2-1.3) mg/dL AST 1477 H (17-59) U/L ALT 533 H (4-49) U/L Alkaline Phosphatase 252 H (38-126) U/L Total Protein 4.5 L (6.3-8.2) g/dL Albumin 2.0 L (3.5-5.0) g/dL Crossmatch Microbiology - Last 24 Hours (Table) 03/01/20 09:10 Blood Culture - Preliminary Blood No Growth after 96 hours 03/02/20 08:30 CSF Gram Stain - Preliminary Cerebral Spinal Fluid CSF Culture - Preliminary 03/01/20 09:10 Gram Stain - Final Pleural Fluid Body Fluid Culture - Final Assessment and Plan Plan: assessment: 1. Acute kidney injury secondary to ATN secondary to diuresis and hemodynamic instability. started on hemodialysis March 04 due to oliguria and hyperkalemia. no improvement in urine output despite IV Lasix. Baseline creatinine near 1. UA fairly benign. 2. Hypervolemic hyponatremia. 3. A. fib with RVR maintained on oral Cardizem and amiodarone. Stable. 4. Status post fall with pneumothorax, multiple rib fractures, hemoperitoneum and ruptured spleen status post emergent chest tube placement and splenectomy. 5. acute blood loss anemia status post blood transfusions this admission. improved post blood transfusion. Also on Aranesp. 6. Metabolic acidosis secondary to acute kidney injury. stable. 7. 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 8. Hyperkalemia secondary to acute kidney injury and metabolic acidosis. ?GI bleed. improved postdialysis. 9. Third-degree heart block. stable. Cardiology following. plan: currently seen while undergoing hemodialysis. Maintain tube feeding. Avoid nephrotoxins. maintain oral bicarb. continue to assess daily for need for renal replacement therapy. resume Levophed to help with ultrafiltration during dialysis. check blood cultures. case discussed with the pet technologist. Family considering transferring to [facility].
[2020-03-06] MEDS ORDERED: MORPHINE SULFATE ER 15 MG TABLET PO SCH (10:00)
--- NOTE | 2020-03-06 11:01 | P.PN ---
Progress Note - Text Progress Note Date: 03/06/20 The patient remains on the ventilator. His white count has increased to 53,000. On exam his vital signs appear stable. His pulses in the 110 range his blood pressure has fluctuated 300 1050 systolic. Abdomen is soft mildly distended. Incisions is clean dry tach. Patient has C. diff colitis. Due to his increasing white count we will order a CAT scan of the abdomen and pelvis today to evaluate his colon. He'll be closely observed.
[2020-03-06] MEDS ORDERED: IOPAMIDOL CONTRAST (ORAL USE) VIAL PO PRN (11:03)
--- NOTE | 2020-03-06 11:33 | P.PN ---
Subjective Progress Note Date: 03/06/20 This is a 69-year-old male patient who was working on his gutters when he fell off a 15 foot ladder. This was unwitnessed. He end up calling his who in turn called EMS and the patient was brought in to the emergency department. Upon arrival, the patient was hypotensive and he was in shock. The patient initial chest x-ray showed several left-sided fractures and small amount of subcutaneous air in addition to a left-sided pneumothorax. The x-ray of the pelvis showed no evidence of any fracture or dislocation. The CAT scan of the brain showed age-related atrophy and chronic small vessel ischemic changes without any acute intracranial process. CAT scan of cervical spine showed no acute abnormalities. On and has Been of the cervical spine was done and the bone and soft tissue windows showed no acute abnormalities. There was no evidence of any fracture. Along with multiple left-sided rib fractures third extending to the seventh rib. There was also spending the sedation with estima daxa grade 3 injury the patient. The patient's hemoglobin dropped to 10.5. The patient received a total of 2 L of IV fluid and 40 minutes of packed RBC. Morning hemoglobin today is At 13.4. The patient was taken to the operating room yesterday. The patient underwent a left-sided chest tube insertion. The patient also had splenectomy done and following that the patient was kept intubated on a mechanical ventilator and he was transferred to the intensive care unit. Note that the patient takes morphine outpatient basis and he has chronic pain and chronic narcotic requirements and on outpatient basis he takes morphine sulfate in the form of MS Contin 50 mg every 12 hours. Overnight, the patient was intubated on mechanical ventilator. He was sedated with a combination of propofol and he was also placed on morphine drip after being given several boluses control his pain. This morning, Profore is running at 70 mg per KG per minute. Morphine is running at 8 mg an hour. The patient is on normal saline at rate of 85 mL an hour. The patient has a left sided chest tube. Total amount of output is in order 110 mL of serosanguineous material without evidence of any air leak. The ventilator setting shows an assist- control mode rate of 20 with a tidal volume of 500 and FiO2 of 40% with a PEEP of 5. The patient's FiO2 is down to 40% overnight. The morning blood gases showed a pH of 7.4 with a pCO2 of 37 and pO2 of 121. The chest x-ray from this morning shows that the patient has an indwelling left-sided chest tube without any signs or pneumothorax. There is also a basilar pleural-based opacity along with multiple left-sided rib fractures and ET tube is in a good location. He is at approximately slightly swollen probably related to an infiltrated IV. He did not require any pressors. He remains hemodynamically stable. Lactic acid remains slightly elevated at 2.9 On 03/04/2020, the patient is being seen for a follow-up. The patient this morning is sedated with propofol at 50 mg per KG per minute. The patient is posterior Tibial Insertion. He Has a Bivona Tracheostomy Tube in Place. The Patient Is on a Mechanical Ventilator on Assist Control Mode at the Rate of 20 with a Tidal Volume of 500 and FiO2 of 50% with a PEEP of 10. The Blood Gases from Today Showed a pH of 7.33 with a pCO2 of 31 and pO2 of 140 and this was on FiO2 of 50%. Chest X-Ray Still Showing Bilateral Pulmonary Infiltrates That Are Rather Diffuse. The Previous Bronchoscopy and the bronchioloalveolar lavage showed no microbial growth. Prior to that a sputum sample that was done on 02/27/2020 showed Selina albicans and a sputum sample from 02/22/2020 showed Selina albicans and Selina Krusei. The patient was treated with Eraxis and he completed the course of antibiotics. He was also on IV Zosyn since admission. Antibiotics were discontinued and the patient developed C. diff colitis that was diagnosed on 03/02/2020. He was having significant diarrhea which essentially slowed down as the patient was started on oral vancomycin to 50 mg orally every 6 hours. The abdominal wound is dry clean and intact. No abdominal distention. Urine output is diminished and the patient is producing somewhere between 10-20 mL an hour of urine output. His any significant fluid overload including significant edema in all 4 extremities and scrotal edema. There is also some a bdominal wall edema. Surgical wound site is dry clean and intact. There is no signs of any wound infection. The patient is tolerating tube feeds and he is on vital high protein at the rate of 30 mL an hour. LFTs are on the rise. The creatinine is on the resident's currently up to 4.4 on the sodium level is down to 129 and a potassium level is at 5.7. This was discussed with nephrology and the patient is going to initiate hemodialysis today. Mental status is not appropriate still. As part of further investigation, the patient underwent another CAT scan of the brain on 02/27/2020 this was negative for any acute abnormalities and the patient had some new partial investigation of the shivani ateral mastoid air cells. A lumbar puncture was also done and the patient was found to have CSF protein of 50, no nucleated white cells, 17 RBCs and glucose was 93. Cultures were negative. On 03/05/2020, the patient is being seen in follow-up. Mother the patient was started on hemodialysis yesterday as the patient was having significant amount of fluid overload and the potassium was in the rise. Just about while going on dialysis, the patient developed heart block and this was a high-grade AV block with hemodynamic instability and hypotension. Immediately, the patient was given calcium chloride and sodium bicarb pushes. His condition was stabilized. He was started on pressors and following that his cardiac rhythm normalizes back to normal sinus rhythm. He underwent hemodialysis yesterday with ultrafiltration and total of 3 L of fluid was removed. Nevertheless, the patient continues to be significant fluid overload. This morning he remains on propofol at 50 mg per KG per minute. He is on levo fed at 0.03 g per KG per minute. He is on normal saline at 50 mL an hour. He remains on a mechanical ventilator. Earlier this morning, chest x-ray was done that showed improvement by the pulmonary infiltrates. The patient had a assist-control mode of ventilation at the rate of 30 with a tidal volume of 550 and FiO2 of 50% with a PEEP of 10. The blood gas showed a pH of 7.44 with episodes of 28 and pO2 148. The patient is making minimal amount of urine output. Hemoglobin this morning was at 6.5 without evidence of any GI bleed and the patient was given a unit of packed RBC. He is receiving Nepro as enteral feeding for nutritional support. Abdomen is slightly distended. The patient has no significant residuals and is producing adequate amount of bowel movement activity. His white cell count still elevated at 42 related to C. diff colitis. Abdominal wound is dry clean and intact. Less of the cultures were all negative for now. 2019, the patient is being seen for a follow-up in the intensive care unit. I elected discussion with the patient's family. I met the daughters and also did a conference call with one of the daughters and we discussed the patient's condition at length and I updated them on his condition. Upon family's request, I initiated the transfer to [facility]. I had a discussion with Dr. Caraballo, trauma surgeon at [facility] who so no need for this patient to be transferred as the medical management that we have offered to this patient has been optimal and up to standard. In summary, today's evaluation, the patient is on a low dose of propofol running between 15 and 30 mg per KG per minute. He grimaces to painful stimulation. He is not following commands. He was given another session of dialysis this morning and the patient's blood pressure slightly dropped during hemodialysis and he is being supported with norepinephrine infusion for blood pressure support. The goal is to remove ar ound 3 L of fluid in addition to hemodialysis. The patient is currently on assist control mode of ventilation at the tidal volume of 500, FiO2 of 40% with a PEEP of 5 and a rate of 30. The blood gases showed a pH of 7.45 with a pCO2 of 31 and pO2 of 84. Chest x-ray still unchanged compared to yesterday with bilateral pulmonary infiltrates. Take estimated to is in a good location and the patient has no significant air leaks. LFTs are in the decline as the patient has been recovering from a shock liver. Urine output is minimal and the patient is undergoing hemodialysis. Normal saline running at 20 mL an hour and the patient on Nepro at the rate of 30 mL an hour. Creatinine is up to 4.2. I'm a bit concerned of the ongoing elevation of the white cell. I initially attributed this to C. diff colitis. The patient was placed on oral vancomycin. Nevertheless, the patient continues to have elevated. Discussed the case with the general surgery. I'm going to obtain a CAT scan of the abdomen and pelvis. I'm also going to obtain a set of blood cultures. The patient does have some o ngoing bandemia which in the order of 31%. Note that he is tolerating his enteral feeding for nutritional support. He is on oral vancomycin to 50 mg by mouth every 6 hours. He is cardiac rhythm is atrial fibrillation. Note that back and forth is going into episodes of atrial fibrillation. For instance, yesterday with sinus. This morning he is in atrial fibrillation with a controlled rate. No anticoagulants have been utilized. He is on Lovenox 30 mg subcu every 24 hours. This is being administered for DVT prophylaxis. Objective - Vital Signs Vital signs: Vital Signs Temp 99.3 F 03/06/20 08:00 Pulse 107 H 03/06/20 11:21 Resp 30 H 03/06/20 10:00 BP 116/51 03/05/20 14:23 Pulse Ox 99 03/06/20 10:00 Intake & Output 03/05/20 03/06/20 03/06/20 18:59 06:59 18:59 Intake Total 934.228 818.094 260.011 Output Total 2585 220 75 Balance -1650.772 598.094 185.011 Weight 104.6 kg 104.7 kg Intake: IV 180 273 92 Pressure bag 33 12 Sodium Chloride 0.9% 1, 180 240 80 000 ml @ 20 mls/hr IV . Q24H [facility] Rx#:[id number] Intake, IV Titration 84.228 195.094 48.011 Amount Norepinephrine 32 mg In 23.438 4.25 0.644 Sodium Chloride 0.9% 218 ml @ 0.14 MCG/KG/MIN 6. 759 mls/hr IV .Q24H [facility]TINA Rx#:[id number] propofoL 1,000 mg In 60.790 190.844 47.367 Empty Bag 1 bag @ Titrate IV .Q0M [facility] Rx#: [id number] Tube Feeding 360 330 120 Blood Product 310 Rc As-1 Unit 310 [id number] Other 0 20 Output: Urine 185 220 75 Hemodialysis 2400 Other: Voiding Method Indwelling Catheter Indwelling Catheter Indwelling Catheter # Bowel Movements 1 ABP, PAP, CO, CI - Last Documented Arterial Blood Pressure 107/55 - Exam Gen. appearance the patient is sedated, comfortable not in acute respiratory distress. The patient has NG tube in place. The patient also has a tracheostomy tube in place which is a Bivona tracheostomy tube. No evidence of any air leak around the tube. This morning the patient is adequately sedated with propofol. He is calm and comfortable.. The patient grimaces to painful stimulation. Head exam was generally normal. There was no scleral icterus or corneal arcus. Mucous membranes were moist. Neck was supple and without jugular venous distension, thyromegaly, or carotid bruits. Carotids were easily palpable bilaterally. There was no adenopathy. The patient has a tracheostomy tube in place. Lungs sounds are diminished bilaterally and the patient is a left sided chest tube in place. Chest tube is in a good location. Breath sounds are slightly diminished in left lung base compared to the right. No evidence of any air leak and the chest tube Pleur-evac. Cardiac exam revealed the PMI to be normally situated and sized. The rhythm was regular and no extrasystoles were noted during several minutes of auscultation. The first and second heart sounds were normal and physiologic splitting of the second heart sound was noted. There were no murmurs, rubs, clicks, or gallops. Abdomen is soft and nontender. The patient has a mid abdominal scar which is dry clean and intact. A surgical scar/wound is dry clean and intact. No direct distention. No rebound distention. No guarding. Bowel sounds are hypoactive at this point in time. Examination of the extremities revealed easily palpable radial, femoral and pedal pulses. There was no cyanosis, clubbing and there is development of significant edema in all 4 extremities and the patient also has scrotal edema. He continues to have significant amount of edema in all 4 extremities. Examination of the skin revealed no evidence of significant rashes, suspicious appearing nevi or other concerning lesions. Abdominal wound site is dry clean and intact. Neurologic the patient is sedated and non-arousable. Currently he is well sedated. Pupils are equal and reactive to light. No signs of any head trauma. No nystagmus. No clonus. No Babinski. - Labs CBC & Chem 7: 03/06/20 04:00 03/06/20 04:00 Labs: Abnormal Lab Results - Last 24 Hours (Table) 03/05/20 03/05/20 03/05/20 Range/Units 05:40 11:34 17:37 WBC (3.8-10.6) k/uL RBC (4.30-5.90) m/uL Hgb (13.0-17.5) gm/dL Hct (39.0-53.0) % RDW (11.5-15.5) % Plt Count (150-450) k/uL Neutrophils # (Manual) (1.3-7.7) k/uL Monocytes # (Manual) (0-1.0) k/uL Eosinophils # (Manual) (0-0.7) k/uL Metamyelocytes # (Man) (0) k/uL Myelocytes # (Manual) (0) k/uL Nucleated RBCs (0-0) /100 WBC ABG pCO2 (35-45) mmHg Sodium (137-145) mmol/L BUN (9-20) mg/dL Creatinine (0.66-1.25) mg/dL Glucose (74-99) mg/dL POC Glucose (mg/dL) 129 H 120 H (75-99) mg/dL Calcium (8.4-10.2) mg/dL Total Bilirubin (0.2-1.3) mg/dL AST (17-59) U/L ALT (4-49) U/L Alkaline Phosphatase (38-126) U/L Total Protein (6.3-8.2) g/dL Albumin (3.5-5.0) g/dL Crossmatch See Detail 03/05/20 03/05/20 03/05/20 Range/Units 18:15 18:15 22:39 WBC 43.1 H (3.8-10.6) k/uL RBC 2.64 L (4.30-5.90) m/uL Hgb 7.5 L (13.0-17.5) gm/dL Hct 23.3 L (39.0-53.0) % RDW 16.5 H (11.5-15.5) % Plt Count 462 H (150-450) k/uL Neutrophils # (Manual) 30.60 H (1.3-7.7) k/uL Monocytes # (Manual) 3.45 H (0-1.0) k/uL Eosinophils # (Manual) (0-0.7) k/uL Metamyelocytes # (Man) 3.88 H (0) k/uL Myelocytes # (Manual) 2.16 H (0) k/uL Nucleated RBCs 34 H (0-0) /100 WBC ABG pCO2 (35-45) mmHg Sodium 135 L (137-145) mmol/L BUN 75 H (9-20) mg/dL Creatinine 3.60 H (0.66-1.25) mg/dL Glucose 107 H (74-99) mg/dL POC Glucose (mg/dL) 123 H (75-99) mg/dL Calcium 7.5 L (8.4-10.2) mg/dL Total Bilirubin (0.2-1.3) mg/dL AST (17-59) U/L ALT (4-49) U/L Alkaline Phosphatase (38-126) U/L Total Protein (6.3-8.2) g/dL Albumin (3.5-5.0) g/dL Crossmatch 03/06/20 03/06/20 03/06/20 Range/Units 04:00 04:00 05:27 WBC 53.4 H* (3.8-10.6) k/uL RBC 2.56 L (4.30-5.90) m/uL Hgb 7.2 L (13.0-17.5) gm/dL Hct 22.4 L (39.0-53.0) % RDW 16.7 H (11.5-15.5) % Plt Count (150-450) k/uL Neutrophils # (Manual) 40.00 H (1.3-7.7) k/uL Monocytes # (Manual) 2.67 H (0-1.0) k/uL Eosinophils # (Manual) 1.60 H (0-0.7) k/uL Metamyelocytes # (Man) 5.87 H (0) k/uL Myelocytes # (Manual) 2.14 H (0) k/uL Nucleated RBCs 9 H (0-0) /100 WBC ABG pCO2 31 L (35-45) mmHg Sodium 133 L (137-145) mmol/L BUN 82 H (9-20) mg/dL Creatinine 4.20 H (0.66-1.25) mg/dL Glucose (74-99) mg/dL POC Glucose (mg/dL) (75-99) mg/dL Calcium 7.6 L (8.4-10.2) mg/dL Total Bilirubin 2.1 H (0.2-1.3) mg/dL AST 1477 H (17-59) U/L ALT 533 H (4-49) U/L Alkaline Phosphatase 252 H (38-126) U/L Total Protein 4.5 L (6.3-8.2) g/dL Albumin 2.0 L (3.5-5.0) g/dL Crossmatch Microbiology - Last 24 Hours (Table) 03/02/20 08:30 CSF Gram Stain - Final Cerebral Spinal Fluid CSF Culture - Final 03/01/20 09:10 Blood Culture - Preliminary Blood No Growth after 96 hours 03/01/20 09:10 Gram Stain - Final Pleural Fluid Body Fluid Culture - Final Assessment and Plan Plan: 1 fall off a ladder with significant trauma to the chest and abdomen. The patient had sustained left-sided rib fractures, splenic rupture postsplenectomy, and a left-sided pneumothorax. 2 traumatic grade 3 laceration of the spleen along with hemoperitoneum and the patient is post splenectomy and the patient is postop day and the patient had the surgery on 02/17/2020. 3 traumatic left-sided rib fractures third drip through seventh rib along with a 30% left-sided pneumothorax post chest tube insertion with adequate expansion of the left lung. The left-sided chest tube was removed. The follow-up chest x-ray has not shown any residual pneumothorax. 4 shock at the time of admission, essentially due to hemorrhagic shock, recovered and the patient on and off is still requiring low-dose pressor specially during hemodialysis. 5 Acute kidney injury with massive fluid overload and the patient was started on hemodialysis. The patient is undergoing daily dialysis and the patient is having his first session of hemodialysis today. Still has significant amount of third spacing. Pressors are being utilized due to hypotension is guarding at the time of dialysis. 6 acute ventilator-dependent respiratory failure, hypoxic, secondary to above. The patient had diffuse bilateral pulmonary infiltrates. All of the cultures of been negative with exception of Selina and the patient completed a course of Eraxis. Consider the possibility of interstitial edema. The chest x-ray isn't showing bilateral pulmonary infiltrates which are essentially stable compared to yesterday. 7 chronic neck pain and the patient had been taken MS Contin on outpatient basis 15 mg twice a day 8 coronary artery disease with a previous bypass surgery 9 hyperlipidemia 10 BPH 11 delirium tremens as the patient is suspected alcoholism 12 paroxysmal atrial fibrillation and the patient is currently in A. fib on oral amiodarone. No anticoagulants. Correlation profile will be checked. 13 leukocytosis, secondary to C. diff colitis, with interval rise in the white cell count and development of some bandemia. This concerning for bowel ischemia specially the patient has positive stool for C. diff. 14 C. diff colitis currently on oral vancomycin, white cell count remains elevated . The patient is still having limited diarrhea. The patient on oral vancomycin. 15 anemia, multifactorial, chronic, hemoglobin has dropped down to 6.5 and the patient will be receiving a unit of packed RBC. The patient's hemoglobin is above 7 at this point in time 16, acute hepatic injury, shock liver with LFTs were found to be significantly elevated and they're gradually improving. Plan Continue ventilator support No ventilator changes for today Proceed another session of hemodialysis ultrafiltration Discussed the case at [facility]. The recommendation was to switch this patient to Precedex and remove the propofol and same time give the patient tries with spontaneous breathing or pressure support. Check coagulation profile Check lactic acid level, pro-calcitonin Proceed with a CAT scan of the abdomen and pelvis Monitor LFTs Continue enteral feeding for nutritional support Continue oral vancomycin regarding C. diff colitis Repeat another set of blood cultures Discussed the case at [facility] trauma team, Dr. Heller We'll continue to follow. The patient is critically ill, and the patient will monitored very closely in the ICU. This is a critically care evaluation that was on a more than 30 minutes. Time with Patient: Greater than 30
[2020-03-06 12:03] LABS: Glucose,Whole Blood 134 mg/dL (75-99)
[2020-03-06] MEDS: MORPHINE ORAL SOLN 10 MG/5 ML CUP PO SCH ×3 (12:17→23:53)
--- NOTE | 2020-03-06 12:25 | P.PN ---
Subjective This is Ayesha Valencia PA-C dictating a progress note on this patient The patient was interviewed and examined by me as well as by Dr. Torres Case discussed with Dr. Torres and he agrees with the plan of care HPI/interval history Patient is a 70-year-old male with a history of CAD status post CABG and paroxysmal atrial fibrillation who presented with a fall and multiple injuries. He underwent a splenectomy and a tracheostomy. He remains in the ICU, on the ventilator. He has had worsening renal function and has been started on dial ysis. As a result of his renal failure, his potassium was elevated and he had complete heart block in the setting of hyperkalemia. His Cardizem was discontinued. He went back into atrial fibrillation and is currently on oral amiodarone. He remains in atrial fibrillation. His rates are in the 90s. Patient seen and examined in the ICU, on the ventilator. He is currently receiving hemodialysis. He remains on a low-dose of pressors EXAMINATION Temperature 99.3F, pulse in the low 100s, respirations 30, blood pressure 107/55, oxygen saturation 99% on mechanical ventilation Patient seen and examined in the ICU, sedated and on the ventilator Heart is irregular and tachycardic, no audible murmurs Breath sounds are rhonchorous bilaterally mild lower extremity edema REVIEW OF LABS, ECG WBC 53.4, hemoglobin 7.2, platelets 437, potassium 4.3, BUN 82, creatinine 4.2, AST 1477, ALT 433, alkaline phosphatase 252 IMPRESSION / ASSESSMENT: #1 fall with multiple injuries including a splenic injury status post splenectomy #2 status post tracheostomy #3 paroxysmal atrial fibrillation, currently in atrial fibrillation with rates in the high 90s to low 100s, not on anticoagulation due to anemia #4 history of CAD status post CABG #5 acute blood loss anemia status post multiple transfusions, hemoglobin 6.5 #6 complete heart block in the setting of hyperkalemia, Cardizem on hold, currently in atrial fibrillation with rates in the 100 #7 acute renal failure requiring dialysis #8 elevated liver enzymes, improving PLAN: Continue to hold off on the Cardizem as he is still requiring pressors Continue the oral amiodarone for now Continue holding anticoagulation Management of multiple other medical problems by primary care team and multiple consultants Objective - Vital Signs Vital signs: Vital Signs Temp 99.3 F 03/06/20 08:00 Pulse 106 H 03/06/20 11:35 Resp 30 H 03/06/20 10:00 BP 116/51 03/05/20 14:23 Pulse Ox 99 03/06/20 10:00 Intake & Output 03/05/20 03/06/20 03/06/20 18:59 06:59 18:59 Intake Total 934.228 818.094 260.011 Output Total 2585 220 75 Balance -1650.772 598.094 185.011 Weight 104.6 kg 104.7 kg Intake: IV 180 273 92 Pressure bag 33 12 Sodium Chloride 0.9% 1, 180 240 80 000 ml @ 20 mls/hr IV . Q24H [facility] Rx#:[id number] Intake, IV Titration 84.228 195.094 48.011 Amount Norepinephrine 32 mg In 23.438 4.25 0.644 Sodium Chloride 0.9% 218 ml @ 0.14 MCG/KG/MIN 6. 759 mls/hr IV .Q24H [facility] Rx#:[id number] propofoL 1,000 mg In 60.790 190.844 47.367 Empty Bag 1 bag @ Titrate IV .Q0M [facility] Rx#: [id number] Tube Feeding 360 330 120 Blood Product 310 Rc As-1 Unit 310 [id number] Other 0 20 Output: Urine 185 220 75 Hemodialysis 2400 Other: Voiding Method Indwelling Catheter Indwelling Catheter Indwelling Catheter # Bowel Movements 1 ABP, PAP, CO, CI - Last Documented Arterial Blood Pressure 107/55 - Labs CBC & Chem 7: 03/06/20 04:00 03/06/20 04:00 Labs: Abnormal Lab Results - Last 24 Hours (Table) 03/05/20 03/05/20 03/05/20 Range/Units 05:40 17:37 18:15 WBC (3.8-10.6) k/uL RBC (4.30-5.90) m/uL Hgb (13.0-17.5) gm/dL Hct (39.0-53.0) % RDW (11.5-15.5) % Plt Count (150-450) k/uL Neutrophils # (Manual) (1.3-7.7) k/uL Monocytes # (Manual) (0-1.0) k/uL Eosinophils # (Manual) (0-0.7) k/uL Metamyelocytes # (Man) (0) k/uL Myelocytes # (Manual) (0) k/uL Nucleated RBCs (0-0) /100 WBC ABG pCO2 (35-45) mmHg Sodium 135 L (137-145) mmol/L BUN 75 H (9-20) mg/dL Creatinine 3.60 H (0.66-1.25) mg/dL Glucose 107 H (74-99) mg/dL POC Glucose (mg/dL) 120 H (75-99) mg/dL Calcium 7.5 L (8.4-10.2) mg/dL Total Bilirubin (0.2-1.3) mg/dL AST (17-59) U/L ALT (4-49) U/L Alkaline Phosphatase (38-126) U/L Total Protein (6.3-8.2) g/dL Albumin (3.5-5.0) g/dL Crossmatch See Detail 03/05/20 03/05/20 03/06/20 Range/Units 18:15 22:39 04:00 WBC 43.1 H 53.4 H* (3.8-10.6) k/uL RBC 2.64 L 2.56 L (4.30-5.90) m/uL Hgb 7.5 L 7.2 L (13.0-17.5) gm/dL Hct 23.3 L 22.4 L (39.0-53.0) % RDW 16.5 H 16.7 H (11.5-15.5) % Plt Count 462 H (150-450) k/uL Neutrophils # (Manual) 30.60 H 40.00 H (1.3-7.7) k/uL Monocytes # (Manual) 3.45 H 2.67 H (0-1.0) k/uL Eosinophils # (Manual) 1.60 H (0-0.7) k/uL Metamyelocytes # (Man) 3.88 H 5.87 H (0) k/uL Myelocytes # (Manual) 2.16 H 2.14 H (0) k/uL Nucleated RBCs 34 H 9 H (0-0) /100 WBC ABG pCO2 (35-45) mmHg Sodium (137-145) mmol/L BUN (9-20) mg/dL Creatinine (0.66-1.25) mg/dL Glucose (74-99) mg/dL POC Glucose (mg/dL) 123 H (75-99) mg/dL Calcium (8.4-10.2) mg/dL Total Bilirubin (0.2-1.3) mg/dL AST (17-59) U/L ALT (4-49) U/L Alkaline Phosphatase (38-126) U/L Total Protein (6.3-8.2) g/dL Albumin (3.5-5.0) g/dL Crossmatch 03/06/20 03/06/20 03/06/20 Range/Units 04:00 05:27 12:02 WBC (3.8-10.6) k/uL RBC (4.30-5.90) m/uL Hgb (13.0-17.5) gm/dL Hct (39.0-53.0) % RDW (11.5-15.5) % Plt Count (150-450) k/uL Neutrophils # (Manual) (1.3-7.7) k/uL Monocytes # (Manual) (0-1.0) k/uL Eosinophils # (Manual) (0-0.7) k/uL Metamyelocytes # (Man) (0) k/uL Myelocytes # (Manual) (0) k/uL Nucleated RBCs (0-0) /100 WBC ABG pCO2 31 L (35-45) mmHg Sodium 133 L (137-145) mmol/L BUN 82 H (9-20) mg/dL Creatinine 4.20 H (0.66-1.25) mg/dL Glucose (74-99) mg/dL POC Glucose (mg/dL) 134 H (75-99) mg/dL Calcium 7.6 L (8.4-10.2) mg/dL Total Bilirubin 2.1 H (0.2-1.3) mg/dL AST 1477 H (17-59) U/L ALT 533 H (4-49) U/L Alkaline Phosphatase 252 H (38-126) U/L Total Protein 4.5 L (6.3-8.2) g/dL Albumin 2.0 L (3.5-5.0) g/dL Crossmatch Microbiology - Last 24 Hours (Table) 03/01/20 09:10 Blood Culture - Preliminary Blood No Growth after 120 hours 03/02/20 08:30 CSF Gram Stain - Final Cerebral Spinal Fluid CSF Culture - Final 03/01/20 09:10 Gram Stain - Final Pleural Fluid Body Fluid Culture - Final
[2020-03-06 12:43] LABS: INR 1.2 (<1.2); Prothrombin Time 11.8 sec (9.0-12.0)
[2020-03-06 12:44] LABS: Partial Thromboplastin Time 132.4 sec (22.0-30.0)
--- NOTE | 2020-03-06 14:28 | CT ---
EXAMINATION TYPE: CT abdomen pelvis wo con DATE OF EXAM: 03/06/2020 COMPARISON: 02/27/2020 HISTORY: Colitis CT DLP: 1143.4 mGycm Automated exposure control for dose reduction was used. Images were obtained from the diaphragm to the floor the pelvis with oral contrast only. There is bilateral lower lobe pulmonary airspace consolidation and atelectasis. There is bilateral pl eural effusions. Heart is slightly enlarged. There is no pericardial effusion. Stomach is intact. Liver shows no focal defect. Bile ducts are not dilated. Spleen is absent. There i s nasogastric tube in the stomach. There is no evidence of pancreatic mass. There is no adrenal mass. Kidneys have normal size. There is no hydronephrosis. Ureters are not dilated. There is no retroperitoneal adenopathy. There is subcuta neous edema around the entire abdomen and pelvis. There is abdominal ascites. There is diffuse wall thickening of the descending colon and rectosigmoid colon. This is a change compared to old exam. Small bowel is not dilated. There is right femoral vein catheter. There is no inguinal hernia. Bladder is empty. There is Nolan c atheter in the urinary bladder. Lumbar vertebra have normal spacing and alignment. Posterior elements are intact. There is no compression fracture. Bony pelvis is intact. There are apparent bilateral la rge scrotal hydroceles. IMPRESSION: There is increased abdominal ascites compared to recent exam. There is wall thickening of the left co clarita and rectosigmoid colon that is new compared to old exam and consistent with nonspecific colitis i ncluding ischemic colitis. Bilateral lower lobe pulmonary consolidation and atelectasis and pleural fluid unchanged.
[2020-03-06] MEDS: DEXMEDETOMIDINE/0.9% NACL(PMX) 400 MCG in EMPTY BAG 1 BAG IV SCH ×2 (14:51→21:14)
[2020-03-06 15:21] LABS: INR 1.1 (<1.2); Prothrombin Time 11.4 sec (9.0-12.0)
--- NOTE | 2020-03-06 16:44 | P.PN ---
Subjective Progress Note Date: 03/06/20 Principal diagnosis: Multiple traumas s/p fall from 15 feet ladder Mr. Nugent is a 70-year-old male with a past medical history of coronary artery disease status post CABG, hyperlipidemia, prostate cancer, chronic neck and back pain, cervical fusion done in 2008 coming in through the emergency department after having a fall from 15 feet ladder. Patient was cleaning gutters fell and brought to the hospital. Patient had multiple left-sided fractures from third to seventh rib and also had splenectomy done for splenic injury. Patient had CAT scan of the brain showing no acute intracranial process and CAT scan of the cervical spine showed no acute abnormalities. His hospital course was complicated - he had chest tubes placed on the left side, he required hemodialysis. Patient had a heart block being treated per cardiology. He also had C. diff positive. Multiple consultants including pulmonary, cardiology, ID, surgery, nephrology, vascular surgery, neurology following the patient. On 03/06/2020 -patient is in the ICU. He is intubated via trach. Patient only grimaces to painful to stimuli. Patient's at the bedside, she states that since being in the hospital patient's neurological status did not improve. He is currently on assist control mode of ventilation. Blood gases show pH of 7.4, pO2 of 84, pCO2 of 31. On reviewing his labs his white count seems to be trending up it is a 53.4 with 31% band neutrophils. Sodium of 133, potassium of 4.3, chloride 99, bicarbonate 22, WN 82, creatinine 4.20. Albumin 2.0. Patient's LFTs trending down today AST of 1477, AST of 533 and alkaline phosphatase of 252. Active Medications Acetaminophen (Tylenol Tab) 650 mg PO Q6HR PRN PRN Reason: Fever and/ or Pain Last Admin: 03/01/20 13:25 Dose: 650 mg Documented by: Albuterol/Ipratropium (Duoneb 0.5 Mg-3 Mg/3 Ml Soln) 3 ml INHALATION RT-Q4H [facility] Last Admin: 03/06/20 16:06 Dose: 3 ml Documented by: Amiodarone HCl (Cordarone) 200 mg PO BID [facility] Last Admin: 03/06/20 08:55 Dose: 200 mg Documented by: Darbepoetin Telly (Darbepoetin Telly 40 Mcg/0.4 Ml Syringe) 40 mcg SQ Q7D [facility] Last Admin: 03/05/20 15:07 Dose: 40 mcg Documented by: Enoxaparin Sodium (Lovenox) 30 mg SQ DAILY [facility] Last Admin: 03/06/20 08:55 Dose: 30 mg Documented by: Finasteride (Proscar) 5 mg PO HS [facility] Last Admin: 03/05/20 20:08 Dose: 5 mg Documented by: Sodium Chloride (Saline 0.9%) 1,000 mls @ 20 mls/hr IV .Q24H [facility] Last Admin: 03/05/20 13:01 Dose: 20 mls/hr Documented by: Propofol 1,000 mg/ IV Solution 100 mls @ 0 mls/hr IV .Q0M [facility]; Protocol Last Titration: 03/06/20 15:00 Dose: 20 mcg/kg/min, 12.564 mls/hr Documented by: Norepinephrine Bitartrate 32 (mg/ Sodium Chloride) 250 mls @ 6.759 mls/hr IV .Q24H [facility]; Protocol Last Titration: 03/06/20 08:56 Dose: 0.01 mcg/kg/min, 0.483 mls/hr Documented by: Lactated Ringer's (Lactated Ringers) 1,000 mls @ 20 mls/hr IV .Q24H [facility] Last Admin: 03/06/20 06:48 Dose: Not Given Documented by: Dexmedetomidine HCl 400 mcg/ (IV Solution) 100 mls @ 0 mls/hr IV .Q0M [facility]; Protocol Stop: 03/07/20 11:01 Last Admin: 03/06/20 14:51 Dose: 0.4 mcg/kg/hr, 10.47 mls/hr Documented by: Metronidazole 500 mg/ IV (Solution) 100 mls @ 100 mls/hr IVPB Q8HR [facility] Insulin Aspart (Novolog) 0 unit SQ Q6HR [facility]; Protocol Last Admin: 03/06/20 14:49 Dose: Not Given Documented by: Iopamidol (Iopamidol Contrast (Oral Use) Vial) 30 ml PO Q60M PRN PRN Reason: CT Scan Stop: 03/07/20 11:03 Last Admin: 03/06/20 11:32 Dose: 30 ml Documented by: Miscellaneous Information (Magnesium Per Protocol) 1 each MISCELLANE DAILY PRN; Protocol PRN Reason: Per Protocol Miscellaneous Information (Potassium Per Protocol) 1 each MISCELLANE DAILY PRN; Protocol PRN Reason: Per Protocol Morphine Sulfate (Morphine Sulfate (Inj)) 2 mg IVP Q2H PRN PRN Reason: Pain/Discomfort Last Admin: 03/05/20 15:03 Dose: 2 mg Documented by: Morphine Sulfate (Morphine Sulfate (Inj)) 4 mg IVP Q2H PRN PRN Reason: Pain Morphine Sulfate (Morphine Oral Soln 10 Mg/5 Ml Cup) 10 mg PO Q8HR [facility] Last Admin: 03/06/20 12:17 Dose: 10 mg Documented by: Naloxone HCl (Narcan) 0.2 mg IV Q2M PRN PRN Reason: Opioid Reversal Pantoprazole Sodium (Protonix) 40 mg IVP DAILY [facility] Last Admin: 03/06/20 08:55 Dose: 40 mg Documented by: Sodium Bicarbonate (Sodium Bicarbonate Tab) 650 mg PO TID [facility] Last Admin: 03/06/20 15:53 Dose: 650 mg Documented by: Sodium Chloride (Saline Flush) 10 ml IV Q4HR PRN PRN Reason: PICC Line Sodium Chloride (Saline Flush) 10 ml IV WEEKLY [facility] Last Admin: 03/04/20 10:48 Dose: 10 ml Documented by: Sodium Chloride (Saline Flush) 20 ml IV Q4HR PRN PRN Reason: PICC Line Tamsulosin HCl (Flomax) 0.8 mg PO HS [facility] Last Admin: 03/05/20 20:08 Dose: 0.8 mg Documented by: Thiamine HCl (Vitamin B-1) 100 mg PO DAILY [facility] Last Admin: 03/06/20 08:55 Dose: 100 mg Documented by: Vancomycin HCl (Vancomycin Oral Solution 250 Mg/5 Ml Bottle) 500 mg PO Q6HR [facility] Objective - Vital Signs Vital signs: Vital Signs Temp 99.3 F 03/06/20 12:32 Pulse 87 03/06/20 16:19 Resp 30 H 03/06/20 16:19 BP 132/65 03/06/20 14:00 Pulse Ox 100 03/06/20 16:00 Intake & Output 03/05/20 03/06/20 03/06/20 18:59 06:59 18:59 Intake Total 934.228 264.950 7216.196 Output Total 2585 220 3145 Balance -1650.772 597.090 -4241.804 Weight 104.6 kg 104.7 kg Intake: IV 180 273 207 Pressure bag 33 27 Sodium Chloride 0.9% 1, 180 240 180 000 ml @ 20 mls/hr IV . Q24H [facility] Rx#:[id number] Intake, IV Titration 84.228 195.094 72.196 Amount Norepinephrine 32 mg In 23.438 4.25 0.644 Sodium Chloride 0.9% 218 ml @ 0.14 MCG/KG/MIN 6. 759 mls/hr IV .Q24H [facility] Rx#:[id number] propofoL 1,000 mg In 60.790 190.844 71.552 Empty Bag 1 bag @ Titrate IV .Q0M [facility] Rx#: [id number] Tube Feeding 360 330 120 Blood Product 310 Rc As-1 Unit 310 [id number] Other 0 20 1200 Output: Urine 185 220 145 Hemodialysis 2400 3000 Other: Voiding Method Indwelling Catheter Indwelling Catheter Indwelling Catheter # Bowel Movements 1 ABP, PAP, CO, CI - Last Documented Arterial Blood Pressure 124/61 - Exam - Exam -GENERAL: The patient is intubated and sedated HEENT: Pupils are round and equally reacting to light CARDIOVASCULAR: S1 and S2 present. No murmurs, rubs, or gallops. PULMONARY: Chest is clear to auscultation, no wheezing or crackles. Left-sided chest tube midline vertical surgical wound is clean and dry and closed ABDOMEN: Soft, nontender, nondistended, normoactive bowel sounds. MUSCULOSKELETAL: No joint swelling or deformity. EXTREMITIES: Bilateral pitting edema in both upper and lower extremities. He also has scrotal edema. NEUROLOGICAL: Patient only grimaces to painful stimuli. SKIN: No rashes. no petechiae. - Labs CBC & Chem 7: 03/06/20 04:00 03/06/20 04:00 Labs: Abnormal Lab Results - Last 24 Hours (Table) 03/05/20 03/05/20 03/05/20 Range/Units 17:37 18:15 18:15 WBC 43.1 H (3.8-10.6) k/uL RBC 2.64 L (4.30-5.90) m/uL Hgb 7.5 L (13.0-17.5) gm/dL Hct 23.3 L (39.0-53.0) % RDW 16.5 H (11.5-15.5) % Plt Count 462 H (150-450) k/uL Neutrophils # (Manual) 30.60 H (1.3-7.7) k/uL Monocytes # (Manual) 3.45 H (0-1.0) k/uL Eosinophils # (Manual) (0-0.7) k/uL Metamyelocytes # (Man) 3.88 H (0) k/uL Myelocytes # (Manual) 2.16 H (0) k/uL Nucleated RBCs 34 H (0-0) /100 WBC INR (<1.2) APTT (22.0-30.0) sec ABG pCO2 (35-45) mmHg Sodium 135 L (137-145) mmol/L BUN 75 H (9-20) mg/dL Creatinine 3.60 H (0.66-1.25) mg/dL Glucose 107 H (74-99) mg/dL POC Glucose (mg/dL) 120 H (75-99) mg/dL Calcium 7.5 L (8.4-10.2) mg/dL Total Bilirubin (0.2-1.3) mg/dL AST (17-59) U/L ALT (4-49) U/L Alkaline Phosphatase (38-126) U/L Total Protein (6.3-8.2) g/dL Albumin (3.5-5.0) g/dL 03/05/20 03/06/20 03/06/20 Range/Units 22:39 04:00 04:00 WBC 53.4 H* (3.8-10.6) k/uL RBC 2.56 L (4.30-5.90) m/uL Hgb 7.2 L (13.0-17.5) gm/dL Hct 22.4 L (39.0-53.0) % RDW 16.7 H (11.5-15.5) % Plt Count (150-450) k/uL Neutrophils # (Manual) 40.00 H (1.3-7.7) k/uL Monocytes # (Manual) 2.67 H (0-1.0) k/uL Eosinophils # (Manual) 1.60 H (0-0.7) k/uL Metamyelocytes # (Man) 5.87 H (0) k/uL Myelocytes # (Manual) 2.14 H (0) k/uL Nucleated RBCs 9 H (0-0) /100 WBC INR (<1.2) APTT (22.0-30.0) sec ABG pCO2 (35-45) mmHg Sodium 133 L (137-145) mmol/L BUN 82 H (9-20) mg/dL Creatinine 4.20 H (0.66-1.25) mg/dL Glucose (74-99) mg/dL POC Glucose (mg/dL) 123 H (75-99) mg/dL Calcium 7.6 L (8.4-10.2) mg/dL Total Bilirubin 2.1 H (0.2-1.3) mg/dL AST 1477 H (17-59) U/L ALT 533 H (4-49) U/L Alkaline Phosphatase 252 H (38-126) U/L Total Protein 4.5 L (6.3-8.2) g/dL Albumin 2.0 L (3.5-5.0) g/dL 03/06/20 03/06/20 03/06/20 Range/Units 05:27 11:58 12:02 WBC (3.8-10.6) k/uL RBC (4.30-5.90) m/uL Hgb (13.0-17.5) gm/dL Hct (39.0-53.0) % RDW (11.5-15.5) % Plt Count (150-450) k/uL Neutrophils # (Manual) (1.3-7.7) k/uL Monocytes # (Manual) (0-1.0) k/uL Eosinophils # (Manual) (0-0.7) k/uL Metamyelocytes # (Man) (0) k/uL Myelocytes # (Manual) (0) k/uL Nucleated RBCs (0-0) /100 WBC INR 1.2 H (<1.2) APTT 132.4 H* (22.0-30.0) sec ABG pCO2 31 L (35-45) mmHg Sodium (137-145) mmol/L BUN (9-20) mg/dL Creatinine (0.66-1.25) mg/dL Glucose (74-99) mg/dL POC Glucose (mg/dL) 134 H (75-99) mg/dL Calcium (8.4-10.2) mg/dL Total Bilirubin (0.2-1.3) mg/dL AST (17-59) U/L ALT (4-49) U/L Alkaline Phosphatase (38-126) U/L Total Protein (6.3-8.2) g/dL Albumin (3.5-5.0) g/dL 03/06/20 Range/Units 15:00 WBC (3.8-10.6) k/uL RBC (4.30-5.90) m/uL Hgb (13.0-17.5) gm/dL Hct (39.0-53.0) % RDW (11.5-15.5) % Plt Count (150-450) k/uL Neutrophils # (Manual) (1.3-7.7) k/uL Monocytes # (Manual) (0-1.0) k/uL Eosinophils # (Manual) (0-0.7) k/uL Metamyelocytes # (Man) (0) k/uL Myelocytes # (Manual) (0) k/uL Nucleated RBCs (0-0) /100 WBC INR (<1.2) APTT 37.5 H (22.0-30.0) sec ABG pCO2 (35-45) mmHg Sodium (137-145) mmol/L BUN (9-20) mg/dL Creatinine (0.66-1.25) mg/dL Glucose (74-99) mg/dL POC Glucose (mg/dL) (75-99) mg/dL Calcium (8.4-10.2) mg/dL Total Bilirubin (0.2-1.3) mg/dL AST (17-59) U/L ALT (4-49) U/L Alkaline Phosphatase (38-126) U/L Total Protein (6.3-8.2) g/dL Albumin (3.5-5.0) g/dL Microbiology - Last 24 Hours (Table) 03/05/20 11:27 Blood Culture - Preliminary Blood No Growth after 24 hours 03/05/20 10:55 Blood Culture - Preliminary Blood No Growth after 24 hours 03/01/20 09:10 Blood Culture - Preliminary Blood No Growth after 120 hours 03/02/20 08:30 CSF Gram Stain - Final Cerebral Spinal Fluid CSF Culture - Final Assessment and Plan Assessment: ASSESSMENT - Fall from 15 feet ladder with multiple traumatic injuries to the chest and abdomen - 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 diff colitis - Chronic neck pain status post cervical fusion done in 2008 -Coronary artery disease status post CABG - Hyperlipidemia - BPH - Paroxysmal atrial fibrillation on amiodarone -Acute liver injury, possibly shock liver as LFTs have been significantly high and currently trending down PLAN: Patient is to be continued on ventilatory support. He is currently getting hemodialysis. Patient's white count has been trending up with 31% bands, he is on antibiotics in the form of oral vancomycin and IV Flagyl. Overall prognosis is poor. Multiple consultants including pulmonary, nephrolo gy, ID, vascular, cardiology, neurology on board and following the patient. The treatment plan was discussed in detail with the patient's at the bedside today. Further recommendations to follow depending on the progress of the patient.
[2020-03-06] MEDS: SODIUM CHLORIDE 0.9% 1,000 ML IV SCH (16:49)
[2020-03-06] MEDS: metroNIDAZOLE-NS PMX 500 MG in SALINE 1 100ML.BAG IVPB SCH ×2 (16:50→23:53)
[2020-03-06 17:00] LABS: Amorphous Sediment,Urine Rare /hpf; Appearance,Urine Cloudy (Clear); Bilirubin,Urine Negative (Negative); Blood,Urine Small (Negative); Color,Urine Yellow; Glucose,Urine (UA) Negative (Negative); Hyaline Casts,Urine 4 /lpf (0-2); Ketones,Urine Negative (Negative); Leukocyte Esterase,Urine Trace (Negative); Mucus,Urine Rare /hpf; Nitrite,Urine Negative (Negative); Protein,Urine 2+ (Negative); RBC,Urine 1 /hpf (0-5); Specific Gravity,Urine 1.013 (1.001-1.035); Urobilinogen,Urine <2.0 mg/dL (<2.0); WBC,Urine 4 /hpf (0-5)
--- NOTE | 2020-03-06 17:10 | PN ---
PROGRESS NOTE DATE OF SERVICE: 03/06/2020 REASON FOR FOLLOWUP: Leukocytosis and C diff colitis. INTERVAL HISTORY: Patient overall feels better and has improved. Last temperature was 100.2 last night and this morning is 99.3. The patient is hemodynamically stable and is currently off the pressor support. The patient has been tolerating his tube feeds. He did have small amount of diarrhea. No purulent secretion through the ET has been noticed by the nursing staff or reported. The patient FiO2 is currently at 40%. EXAMINATION: Blood pressure 124/51 with a pulse of 80, temperature 98. He is 100% on 40% FiO2. General description is an elderly male lying in bed in no distress. Respiratory system: Unlabored breathing, decreased breath sounds at bases. No wheeze. Heart S1, S2. Regular rate and rhythm. Abdomen soft, no tenderness. LABS: Hemoglobin 7.1, white count 3.4 with a BUN of 82, creatinine 4.20. Blood cultures obtained yesterday so far negative. The patient did have a CT of abdomen and pelvis which shows evidence of colitis and some lower lobe atelectasis versus pneumonia. No other abnormality. DIAGNOSTIC IMPRESSION AND PLAN: Patient with significant elevated white count in this patient who did have a trauma, fall and is status post appendectomy. CT did show evidence of colitis that will go along with his C difficile colitis. We will maximize his C diff therapy to see that will help bring down his white count, increasing the dose of vancomycin to 500 q6 and will add IV Flagyl. The patient's CT was suspicious for lower lobe atelectasis versus consolidation. Clinically not behaving as pneumonia in this patient currently saturating 100% on 40% FiO2 and there is no purulent secretion through the ET. Will be monitored closely. The patient's was at the bedside. Multiple questions were answered in layman's terms. MMODL / IJN: [id number] /
[2020-03-06 18:59] LABS: Glucose,Whole Blood 103 mg/dL (75-99)
[2020-03-06] MEDS: TAMSULOSIN 0.4 MG CAP.ER.24H PO SCH (21:03)
[2020-03-06] MEDS: CHLORHEXIDINE GLUCONATE 15 ML CUP MUCOUS MEM SCH (21:03)
[2020-03-06] MEDS: FINASTERIDE 5 MG TAB PO SCH (21:03)
[2020-03-06 23:08] LABS: Glucose,Whole Blood 115 mg/dL (75-99)
[2020-03-07] MEDS: IPRATROPIUM-ALBUTEROL 3 ML NEB INHALATION SCH ×6 (03:26→23:11)
[2020-03-07 04:04] LABS: Anisocytosis Slight; HCT 22.9 % (39.0-53.0); HGB 7.1 gm/dL (13.0-17.5); Hypochromasia Moderate; MCH 27.1 pg (25.0-35.0); MCHC 30.8 g/dL (31.0-37.0); Mean Platelet Volume 11.7; Platelet Count 395 k/uL (150-450); Poikilocytosis Slight; RDW 17.6 % (11.5-15.5)
[2020-03-07 04:14] LABS: Calcium 7.7 mg/dL (8.4-10.2); Potassium 4.5 mmol/L (3.5-5.1); Total Bilirubin 1.8 mg/dL (0.2-1.3); Total Protein 4.5 g/dL (6.3-8.2)
[2020-03-07 04:30] LABS: Band Neutrophils % 8 %; Metamyelocytes % 8 %; Myelocytes % 12 %; Neutrophils % (M) 60 %; Nucleated Red Blood Cells 27 /100 WBC (0-0); Total Cells Counted 200
[2020-03-07] MEDS: DEXMEDETOMIDINE/0.9% NACL(PMX) 400 MCG in EMPTY BAG 1 BAG IV SCH ×3 (04:30→22:26)
[2020-03-07 04:31] LABS: Eosinophils # (M) 1.52 k/uL (0-0.7); Lymphocytes # (M) 1.52 k/uL (1.0-4.8); Metamyelocytes # (M) 4.05 k/uL (0); Monocytes # (M) 3.54 k/uL (0-1.0); Myelocytes # (M) 6.07 k/uL (0); Polychromasia Present; WBC 50.6 k/uL (3.8-10.6)
[2020-03-07 04:32] LABS: Large Platelets Present
[2020-03-07] MEDS: NOREPINEPHRINE 32 MG in SODIUM CHLORIDE 0.9% 218 ML IV SCH (05:01)
[2020-03-07] MEDS: INSULIN ASPART (NovoLOG) 100 UNIT/ML VIAL SQ SCH ×4 (05:01→23:49)
[2020-03-07] MEDS: VANCOMYCIN ORAL SOLUTION 250 MG/5 ML BOTTLE PO SCH ×4 (05:03→23:52)
[2020-03-07 05:32] LABS: ABG Base Excess -2.7 mmol/L; ABG HCO3 21 mmol/L (21-25); ABG Oxygen Saturation 96.5 % (94-97); ABG PCO2 30 mmHg (35-45); ABG PH 7.46 (7.35-7.45); ABG PO2 88 mmHg (83-108); ABG TCO2 22 mmol/L (19-24)
[2020-03-07 06:06] LABS: Magnesium 2.3 mg/dL (1.6-2.3)
[2020-03-07 06:12] LABS: Phosphorus 9.5 mg/dL (2.5-4.5)
--- NOTE | 2020-03-07 06:30 | XR ---
EXAMINATION TYPE: XR chest 1V DATE OF EXAM: 03/07/2020 COMPARISON: 03/06/2020 HISTORY: Shortness of breath TECHNIQUE: Single frontal view of the chest is obtained. FINDINGS: Tracheostomy tube, PICC line, ET and NG tube stable. Diffuse pleural-parenchymal changes a re stable. Postoperative changes and cardiomegaly stable. Arthropathy of the shoulders. IMPRESSION: 1. Diffuse pleural-parenchymal changes are stable with small bilateral pleural effusions correlate fo r CHF, ARDS or diffuse pneumonia
[2020-03-07] MEDS: metroNIDAZOLE-NS PMX 500 MG in SALINE 1 100ML.BAG IVPB SCH ×3 (09:00→23:51)
[2020-03-07] MEDS: PANTOPRAZOLE 40 MG/10 ML VIAL IVP SCH (09:01)
[2020-03-07] MEDS: AMIODARONE 200 MG TAB PO SCH ×2 (09:01→21:37)
[2020-03-07] MEDS: THIAMINE 100 MG TAB PO SCH (09:01)
[2020-03-07] MEDS: ENOXAPARIN 30 MG/0.3 ML SYRINGE SQ SCH (09:01)
[2020-03-07] MEDS: CHLORHEXIDINE GLUCONATE 15 ML CUP MUCOUS MEM SCH ×2 (09:01→21:37)
[2020-03-07] MEDS: SODIUM BICARBONATE TAB 650 MG TAB PO SCH ×3 (09:01→21:37)
[2020-03-07] MEDS: MORPHINE ORAL SOLN 10 MG/5 ML CUP PO SCH ×3 (09:05→23:18)
[2020-03-07] MEDS: SODIUM CHLORIDE 0.9% 1,000 ML IV SCH (09:07)
--- NOTE | 2020-03-07 09:16 | P.PN ---
Subjective patient is seen in follow-up for acute kidney injury. started on hemodialysis March 04 due to oliguria and hyperkalemia. tolerated 3 L ultrafiltration yesterday. He's off Levophed. Receiving tube feeding. Vital signs are stable. General: The patient appeared well nourished and normally developed. HEENT: Head exam is unremarkable. Neck is without jugular venous distension. LUNGS: Breath sounds decreased. HEART: Rate and Rhythm are regular. ABDOMEN: soft, nondistended. EXTREMITITES: 2+ edema. scrotal edema noted. Objective - Vital Signs Vital signs: Vital Signs Temp 99.1 F 03/07/20 04:00 Pulse 78 03/07/20 07:36 Resp 30 H 03/07/20 07:00 BP 132/65 03/06/20 14:00 Pulse Ox 96 03/07/20 07:00 Intake & Output 03/06/20 03/07/20 03/07/20 18:59 06:59 18:59 Intake Total 1826.538 767.409 43 Output Total 3175 178 20 Balance -1348.462 589.409 23 Weight 103.1 kg Intake: IV 246 256 13 Pressure bag 36 36 3 Sodium Chloride 0.9% 1, 210 100 000 ml @ 20 mls/hr IV . Q24H [facility] Rx#:[id number] metroNIDAZOLE-NS PMX 500 120 10 mg In Saline 1 100ml.bag @ 100 mls/hr IVPB Q8HR [facility] Rx#:[id number] Intake, IV Titration 200.538 131.409 Amount Dexmedetomidine/0.9% NaCl 27.746 125.565 (Pmx) 400 mcg In Empty Bag 1 bag @ Titrate IV . Q0M [facility] Rx#:[id number] Norepinephrine 32 mg In 1.240 5.844 Sodium Chloride 0.9% 218 ml @ 0.14 MCG/KG/MIN 6. 759 mls/hr IV .Q24H [facility] Rx#:[id number] metroNIDAZOLE-NS PMX 500 100 mg In Saline 1 100ml.bag @ 100 mls/hr IVPB Q8HR BETT[facility] Rx#:[id number] propofoL 1,000 mg In 71.552 Empty Bag 1 bag @ Titrate IV .Q0M [facility] Rx#: [id number] Tube Feeding 180 360 30 Other 1200 20 Output: Urine 175 178 20 Hemodialysis 3000 Other: Voiding Method Indwelling Catheter Indwelling Catheter ABP, PAP, CO, CI - Last Documented Arterial Blood Pressure 119/51 - Labs CBC & Chem 7: 03/07/20 03:58 03/07/20 03:58 Labs: Abnormal Lab Results - Last 24 Hours (Table) 03/06/20 03/06/20 03/06/20 Range/Units 11:58 11:58 12:02 WBC (3.8-10.6) k/uL RBC (4.30-5.90) m/uL Hgb (13.0-17.5) gm/dL Hct (39.0-53.0) % MCHC (31.0-37.0) g/dL RDW (11.5-15.5) % Neutrophils # (Manual) (1.3-7.7) k/uL Monocytes # (Manual) (0-1.0) k/uL Eosinophils # (Manual) (0-0.7) k/uL Metamyelocytes # (Man) (0) k/uL Myelocytes # (Manual) (0) k/uL Nucleated RBCs (0-0) /100 WBC INR 1.2 H (<1.2) APTT 132.4 H* (22.0-30.0) sec ABG pH (7.35-7.45) ABG pCO2 (35-45) mmHg Sodium (137-145) mmol/L BUN (9-20) mg/dL Creatinine (0.66-1.25) mg/dL Glucose (74-99) mg/dL POC Glucose (mg/dL) 134 H (75-99) mg/dL Calcium (8.4-10.2) mg/dL Phosphorus (2.5-4.5) mg/dL Total Bilirubin (0.2-1.3) mg/dL AST (17-59) U/L ALT (4-49) U/L Alkaline Phosphatase (38-126) U/L Total Protein (6.3-8.2) g/dL Albumin (3.5-5.0) g/dL Procalcitonin 6.24 H (0.02-0.09) ng/mL Urine Protein (Negative) Urine Blood (Negative) Ur Leukocyte Esterase (Negative) Amorphous Sediment (None) /hpf Hyaline Casts (0-2) /lpf Urine Mucus (None) /hpf 03/06/20 03/06/20 03/06/20 Range/Units 15:00 15:20 18:57 WBC (3.8-10.6) k/uL RBC (4.30-5.90) m/uL Hgb (13.0-17.5) gm/dL Hct (39.0-53.0) % MCHC (31.0-37.0) g/dL RDW (11.5-15.5) % Neutrophils # (Manual) (1.3-7.7) k/uL Monocytes # (Manual) (0-1.0) k/uL Eosinophils # (Manual) (0-0.7) k/uL Metamyelocytes # (Man) (0) k/uL Myelocytes # (Manual) (0) k/uL Nucleated RBCs (0-0) /100 WBC INR (<1.2) APTT 37.5 H (22.0-30.0) sec ABG pH (7.35-7.45) ABG pCO2 (35-45) mmHg Sodium (137-145) mmol/L BUN (9-20) mg/dL Creatinine (0.66-1.25) mg/dL Glucose (74-99) mg/dL POC Glucose (mg/dL) 103 H (75-99) mg/dL Calcium (8.4-10.2) mg/dL Phosphorus (2.5-4.5) mg/dL Total Bilirubin (0.2-1.3) mg/dL AST (17-59) U/L ALT (4-49) U/L Alkaline Phosphatase (38-126) U/L Total Protein (6.3-8.2) g/dL Albumin (3.5-5.0) g/dL Procalcitonin (0.02-0.09) ng/mL Urine Protein 2+ H (Negative) Urine Blood Small H (Negative) Ur Leukocyte Esterase Trace H (Negative) Amorphous Sediment Rare H (None) /hpf Hyaline Casts 4 H (0-2) /lpf Urine Mucus Rare H (None) /hpf 03/06/20 03/07/20 03/07/20 Range/Units 23:06 03:48 03:58 WBC 50.6 H* (3.8-10.6) k/uL RBC 2.60 L (4.30-5.90) m/uL Hgb 7.1 L (13.0-17.5) gm/dL Hct 22.9 L (39.0-53.0) % MCHC 30.8 L (31.0-37.0) g/dL RDW 17.6 H (11.5-15.5) % Neutrophils # (Manual) 34.40 H (1.3-7.7) k/uL Monocytes # (Manual) 3.54 H (0-1.0) k/uL Eosinophils # (Manual) 1.52 H (0-0.7) k/uL Metamyelocytes # (Man) 4.05 H (0) k/uL Myelocytes # (Manual) 6.07 H (0) k/uL Nucleated RBCs 27 H (0-0) /100 WBC INR (<1.2) APTT (22.0-30.0) sec ABG pH (7.35-7.45) ABG pCO2 (35-45) mmHg Sodium (137-145) mmol/L BUN (9-20) mg/dL Creatinine (0.66-1.25) mg/dL Glucose (74-99) mg/dL POC Glucose (mg/dL) 115 H (75-99) mg/dL Calcium (8.4-10.2) mg/dL Phosphorus 9.5 H* (2.5-4.5) mg/dL Total Bilirubin (0.2-1.3) mg/dL AST (17-59) U/L ALT (4-49) U/L Alkaline Phosphatase (38-126) U/L Total Protein (6.3-8.2) g/dL Albumin (3.5-5.0) g/dL Procalcitonin (0.02-0.09) ng/mL Urine Protein (Negative) Urine Blood (Negative) Ur Leukocyte Esterase (Negative) Amorphous Sediment (None) /hpf Hyaline Casts (0-2) /lpf Urine Mucus (None) /hpf 03/07/20 03/07/20 Range/Units 03:58 05:30 WBC (3.8-10.6) k/uL RBC (4.30-5.90) m/uL Hgb (13.0-17.5) gm/dL Hct (39.0-53.0) % MCHC (31.0-37.0) g/dL RDW (11.5-15.5) % Neutrophils # (Manual) (1.3-7.7) k/uL Monocytes # (Manual) (0-1.0) k/uL Eosinophils # (Manual) (0-0.7) k/uL Metamyelocytes # (Man) (0) k/uL Myelocytes # (Manual) (0) k/uL Nucleated RBCs (0-0) /100 WBC INR (<1.2) APTT (22.0-30.0) sec ABG pH 7.46 H (7.35-7.45) ABG pCO2 30 L (35-45) mmHg Sodium 132 L (137-145) mmol/L BUN 83 H (9-20) mg/dL Creatinine 4.08 H (0.66-1.25) mg/dL Glucose 108 H (74-99) mg/dL POC Glucose (mg/dL) (75-99) mg/dL Calcium 7.7 L (8.4-10.2) mg/dL Phosphorus (2.5-4.5) mg/dL Total Bilirubin 1.8 H (0.2-1.3) mg/dL AST 704 H (17-59) U/L ALT 377 H (4-49) U/L Alkaline Phosphatase 259 H (38-126) U/L Total Protein 4.5 L (6.3-8.2) g/dL Albumin 2.0 L (3.5-5.0) g/dL Procalcitonin (0.02-0.09) ng/mL Urine Protein (Negative) Urine Blood (Negative) Ur Leukocyte Esterase (Negative) Amorphous Sediment (None) /hpf Hyaline Casts (0-2) /lpf Urine Mucus (None) /hpf Microbiology - Last 24 Hours (Table) 03/05/20 11:27 Blood Culture - Preliminary Blood No Growth after 24 hours 03/05/20 10:55 Blood Culture - Preliminary Blood No Growth after 24 hours 03/01/20 09:10 Blood Culture - Preliminary Blood No Growth after 120 hours 03/02/20 08:30 CSF Gram Stain - Final Cerebral Spinal Fluid CSF Culture - Final Assessment and Plan Plan: assessment: 1. Acute kidney injury secondary to ATN secondary to diuresis and hemodynamic instability. started on hemodialysis March 04 due to oliguria and hyperkalemia. no improvement in urine output despite IV Lasix. Baseline creatinine near 1. UA fairly benign. 2. Hypervolemic hyponatremia. 3. A. fib with RVR maintained on oral Cardizem and amiodarone. Stable. 4. Status post fall with pneumothorax, multiple rib fractures, hemoperitoneum and ruptured spleen status post emergent chest tube placement and splenectomy. 5. acute blood loss anemia status post blood transfusions this admission. improved post blood transfusion. Also on Aranesp. 6. Metabolic acidosis secondary to acute kidney injury. stable. 7. 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 8. Hyperkalemia secondary to acute kidney injury and metabolic acidosis. ?GI bleed. improved postdialysis. 9. Third-degree heart block. stable. Cardiology following. 10. Hyperphosphatemia secondary to acute kidney injury. 11. Volume overload. Improving. underwent dialysis last 3 days in a row. plan: hemodialysis tomorrow. Maintain tube feeding. Avoid nephrotoxins. maintain oral bicarb. add PhosLo 3 times a day. continue to assess daily for need for renal replacement therapy.
--- NOTE | 2020-03-07 09:42 | P.PN ---
Progress Note - Text Progress Note Date: 03/07/20 The patient maintained on the ventilator. He is currently undergoing a sedation holiday. He did become hypertensive. His white count today is 50,000. His CAT scan shows evidence of colitis of the left and sigmoid colon. Patient is known history of C. diff colitis. On exam patient's hypertensive. He appears to be agitated. Abdomen soft and distended. C. diff colitis. Patient will be medically managed at this point. If he shows worsening signs of colitis he may require colectomy. Patient was scheduled for EGD with PEG tube placement tomorrow.
--- NOTE | 2020-03-07 10:42 | P.PN ---
Subjective Progress Note Date: 03/07/20 This is a 69-year-old male patient who was working on his gutters when he fell off a 15 foot ladder. This was unwitnessed. He end up calling his who in turn called EMS and the patient was brought in to the emergency department. Upon arrival, the patient was hypotensive and he was in shock. The patient initial chest x-ray showed several left-sided fractures and small amount of subcutaneous air in addition to a left-sided pneumothorax. The x-ray of the pelvis showed no evidence of any fracture or dislocation. The CAT scan of the brain showed age-related atrophy and chronic small vessel ischemic changes without any acute intracranial process. CAT scan of cervical spine showed no acute abnormalities. On and has Been of the cervical spine was done and the bone and soft tissue windows showed no acute abnormalities. There was no evidence of any fracture. Along with multiple left-sided rib fractures third extending to the seventh rib. There was also spending the sedation with estima daxa grade 3 injury the patient. The patient's hemoglobin dropped to 10.5. The patient received a total of 2 L of IV fluid and 40 minutes of packed RBC. Morning hemoglobin today is At 13.4. The patient was taken to the operating room yesterday. The patient underwent a left-sided chest tube insertion. The patient also had splenectomy done and following that the patient was kept intubated on a mechanical ventilator and he was transferred to the intensive care unit. Note that the patient takes morphine outpatient basis and he has chronic pain and chronic narcotic requirements and on outpatient basis he takes morphine sulfate in the form of MS Contin 50 mg every 12 hours. Overnight, the patient was intubated on mechanical ventilator. He was sedated with a combination of propofol and he was also placed on morphine drip after being given several boluses control his pain. This morning, Profore is running at 70 mg per KG per minute. Morphine is running at 8 mg an hour. The patient is on normal saline at rate of 85 mL an hour. The patient has a left sided chest tube. Total amount of output is in order 110 mL of serosanguineous material without evidence of any air leak. The ventilator setting shows an assist- control mode rate of 20 with a tidal volume of 500 and FiO2 of 40% with a PEEP of 5. The patient's FiO2 is down to 40% overnight. The morning blood gases showed a pH of 7.4 with a pCO2 of 37 and pO2 of 121. The chest x-ray from this morning shows that the patient has an indwelling left-sided chest tube without any signs or pneumothorax. There is also a basilar pleural-based opacity along with multiple left-sided rib fractures and ET tube is in a good location. He is at approximately slightly swollen probably related to an infiltrated IV. He did not require any pressors. He remains hemodynamically stable. Lactic acid remains slightly elevated at 2.9 On 03/04/2020, the patient is being seen for a follow-up. The patient this morning is sedated with propofol at 50 mg per KG per minute. The patient is posterior Tibial Insertion. He Has a Bivona Tracheostomy Tube in Place. The Patient Is on a Mechanical Ventilator on Assist Control Mode at the Rate of 20 with a Tidal Volume of 500 and FiO2 of 50% with a PEEP of 10. The Blood Gases from Today Showed a pH of 7.33 with a pCO2 of 31 and pO2 of 140 and this was on FiO2 of 50%. Chest X-Ray Still Showing Bilateral Pulmonary Infiltrates That Are Rather Diffuse. The Previous Bronchoscopy and the bronchioloalveolar lavage showed no microbial growth. Prior to that a sputum sample that was done on 02/27/2020 showed Selina albicans and a sputum sample from 02/22/2020 showed Selina albicans and Selina Krusei. The patient was treated with Eraxis and he completed the course of antibiotics. He was also on IV Zosyn since admission. Antibiotics were discontinued and the patient developed C. diff colitis that was diagnosed on 03/02/2020. He was having significant diarrhea which essentially slowed down as the patient was started on oral vancomycin to 50 mg orally every 6 hours. The abdominal wound is dry clean and intact. No abdominal distention. Urine output is diminished and the patient is producing somewhere between 10-20 mL an hour of urine output. His any significant fluid overload including significant edema in all 4 extremities and scrotal edema. There is also some a bdominal wall edema. Surgical wound site is dry clean and intact. There is no signs of any wound infection. The patient is tolerating tube feeds and he is on vital high protein at the rate of 30 mL an hour. LFTs are on the rise. The creatinine is on the resident's currently up to 4.4 on the sodium level is down to 129 and a potassium level is at 5.7. This was discussed with nephrology and the patient is going to initiate hemodialysis today. Mental status is not appropriate still. As part of further investigation, the patient underwent another CAT scan of the brain on 02/27/2020 this was negative for any acute abnormalities and the patient had some new partial investigation of the shivani ateral mastoid air cells. A lumbar puncture was also done and the patient was found to have CSF protein of 50, no nucleated white cells, 17 RBCs and glucose was 93. Cultures were negative. On 03/05/2020, the patient is being seen in follow-up. Mother the patient was started on hemodialysis yesterday as the patient was having significant amount of fluid overload and the potassium was in the rise. Just about while going on dialysis, the patient developed heart block and this was a high-grade AV block with hemodynamic instability and hypotension. Immediately, the patient was given calcium chloride and sodium bicarb pushes. His condition was stabilized. He was started on pressors and following that his cardiac rhythm normalizes back to normal sinus rhythm. He underwent hemodialysis yesterday with ultrafiltration and total of 3 L of fluid was removed. Nevertheless, the patient continues to be significant fluid overload. This morning he remains on propofol at 50 mg per KG per minute. He is on levo fed at 0.03 g per KG per minute. He is on normal saline at 50 mL an hour. He remains on a mechanical ventilator. Earlier this morning, chest x-ray was done that showed improvement by the pulmonary infiltrates. The patient had a assist-control mode of ventilation at the rate of 30 with a tidal volume of 550 and FiO2 of 50% with a PEEP of 10. The blood gas showed a pH of 7.44 with episodes of 28 and pO2 148. The patient is making minimal amount of urine output. Hemoglobin this morning was at 6.5 without evidence of any GI bleed and the patient was given a unit of packed RBC. He is receiving Nepro as enteral feeding for nutritional support. Abdomen is slightly distended. The patient has no significant residuals and is producing adequate amount of bowel movement activity. His white cell count still elevated at 42 related to C. diff colitis. Abdominal wound is dry clean and intact. Less of the cultures were all negative for now. 03/06/20202019, the patient is being seen for a follow-up in the intensive care unit. I elected discussion with the patient's family. I met the daughters and also did a conference call with one of the daughters and we discussed the patient's condition at length and I updated them on his condition. Upon family's request, I initiated the transfer to [facility]. I had a discussion with Dr. Caraballo, trauma surgeon at [facility] who so no need for this patient to be transferred as the medical management that we have offered to this patient has been optimal and up to standard. In summary, today's evaluation, the patient is on a low dose of propofol running between 15 and 30 mg per KG per minute. He grimaces to painful stimulation. He is not following commands. He was given another session of dialysis this morning and the patient's blood pressure slightly dropped during hemodialysis and he is being supported with norepinephrine infusion for blood pressure support. The goal is to remove around 3 L of fluid in addition to hemodialysis. The patient is currently on assist control mode of ventilation at the tidal volume of 500, FiO2 of 40% with a PEEP of 5 and a rate of 30. The blood gases showed a pH of 7.45 with a pCO2 of 31 and pO2 of 84. Chest x-ray still unchanged compared to yesterday with bilateral pulmonary infiltrates. Take estimated to is in a good location and the patient has no significant air leaks. LFTs are in the decline as the patient has been recovering from a shock liver. Urine output is minimal and the patient is undergoing hemodialysis. Normal saline running at 20 mL an hour and the patient on Nepro at the rate of 30 mL an hour. Creatinine is up to 4.2. I'm a bit concerned of the ongoing elevation of the white cell. I initially attributed this to C. diff colitis. The patient was placed on oral vancomycin. Nevertheless, the patient continues to have elevated. Discussed the case with the general surgery. I'm going to obtain a CAT scan of the abdomen and pelvis. I'm also going to obtain a set of blood cultures. The patient does have some ongoing bandemia which in the order of 31%. Note that he is tolerating his enteral feeding for nutritional support. He is on oral vancomycin to 50 mg by mouth every 6 hours. He is cardiac rhythm is atrial fibrillation. Note that back and forth is going into episodes of atrial fibrillation. For instance, yesterday with sinus. This morning he is in atrial fibrillation with a controlled rate. No anticoagulants have been utilized. He is on Lovenox 30 mg subcu every 24 hours. This is being administered for DVT prophylaxis. 03/07/2020, I'm seeing this patient for a follow-up. On today's evaluation, the patient is sedated with Precedex. He gradually arouses while off Precedex. Nevertheless, he has not followed any commands.. He gets a bit restless and agitated and his blood pressure goes up and based on that we have to make titration on the Precedex infusion. Earlier this morning he was on 0.7 g per KG per minute. He is on mechanical ventilator. He essentially on the same mode of respirator on assist control mode at the rate of 30 with a tidal volume of 500 and FiO2 of 40% with a PEEP of 8. Morning blood gases showed a pH of 7.46 with a pCO2 of 30 and pO2 of 88. The patient essentially riding the mechanical ventilator and based on that the necessity ventilator changes were done and dropped a respiratory rate down to 22 and I dropped a PEEP down to 6. Chest x- ray is unchanged. The there was concern of his underlying colitis knowing that his white cell count was still elevated. The patient underwent a CAT scan of the abdomen and pelvis yesterday and the CAT scan showed some increased abdominal ascites, wall thickening of the left colon and rectosigmoid colon which is consistent with underlying colitis. He remains on oral vancomycin 5 mg 4 times a day. He is also on IV Flagyl for now and this was admitted by infectious disease. White cell count elevated at 50. The patient is afebrile. The patient is tolerating his enteral feeding. He did have a bowel movement yesterday. No diarrhea. Surgical wound site is dry clean and intact and the hemoglobin stable at 7.1. His bands are down to 8%. The patient will not have dialysis today. His BUN is 83 with a creatinine of 4.0. Rest of the electrodes are stable. Shock liver is improving and the AST is down to 70 for ALT is down to 377 and a total protein is at 4.5. Alkaline phosphatase is 259. He continues to have edema in all 4 extremities. He had qmjd-as-reva dialysis 3 days. The pro-calcitonin is elevated probably related to his underlying C. diff colitis. Blood cultures of been all negative. Objective - Vital Signs Vital signs: Vital Signs Temp 98.9 F 03/07/20 08:00 Pulse 90 03/07/20 10:00 Resp 28 H 03/07/20 10:00 BP 132/65 03/06/20 14:00 Pulse Ox 97 03/07/20 10:00 Intake & Output 03/06/20 03/07/20 03/07/20 18:59 06:59 18:59 Intake Total 1826.538 767.409 272 Output Total 3175 178 55 Balance -1348.462 589.409 217 Weight 103.1 kg Intake: IV 246 256 52 Pressure bag 36 36 12 Sodium Chloride 0.9% 1, 210 100 000 ml @ 20 mls/hr IV . Q24H BETTINA Rx#:[id number] metroNIDAZOLE-NS PMX 500 120 40 mg In Saline 1 100ml.bag @ 100 mls/hr IVPB Q8HR BETTINA Rx#:[id number] Intake, IV Titration 200.538 131.409 100 Amount Dexmedetomidine/0.9% NaCl 27.746 125.565 (Pmx) 400 mcg In Empty Bag 1 bag @ Titrate IV . Q0M BETTINA Rx#:[id number] Norepinephrine 32 mg In 1.240 5.844 Sodium Chloride 0.9% 218 ml @ 0.14 MCG/KG/MIN 6. 759 mls/hr IV .Q24H BETTINA Rx#:[id number] metroNIDAZOLE-NS PMX 500 100 100 mg In Saline 1 100ml.bag @ 100 mls/hr IVPB Q8HR BETTINA Rx#:[id number] propofoL 1,000 mg In 71.552 Empty Bag 1 bag @ Titrate IV .Q0M BETTINA Rx#: [id number] Tube Feeding 180 360 120 Other 1200 20 Output: Urine 175 178 55 Hemodialysis 3000 Other: Voiding Method Indwelling Catheter Indwelling Catheter ABP, PAP, CO, CI - Last Documented Arterial Blood Pressure 145/61 - Exam Gen. appearance the patient is sedated, comfortable not in acute respiratory distress. The patient has NG tube in place. The patient also has a tracheostomy tube in place which is a Bivona tracheostomy tube. No evidence of any air leak around the tube. This morning the patient is adequately sedated with propofol. He is calm and comfortable.. The patient grimaces to painful stimulation. Head exam was generally normal. There was no scleral icterus or corneal arcus. Mucous membranes were moist. Neck was supple and without jugular venous distension, thyromegaly, or carotid bruits. Carotids were easily palpable bilaterally. There was no adenopathy. The patient has a tracheostomy tube in place. Lungs sounds are diminished bilaterally and the patient is a left sided chest tube in place. Chest tube is in a good location. Breath sounds are slightly diminished in left lung base compared to the right. No evidence of any air leak and the chest tube Pleur-evac. Cardiac exam revealed the PMI to be normally situated and sized. The rhythm was regular and no extrasystoles were noted during several minutes of auscultation. The first and second heart sounds were normal and physiologic splitting of the second heart sound was noted. There were no murmurs, rubs, clicks, or gallops. Abdomen is soft and nontender. The patient has a mid abdominal scar which is dry clean and intact. A surgical scar/wound is dry clean and intact. No direct distention. No rebound distention. No guarding. Bowel sounds are hypoactive at this point in time. Examination of the extremities revealed easily palpable radial, femoral and pedal pulses. There was no cyanosis, clubbing and there is development of significant edema in all 4 extremities and the patient also has scrotal edema. He continues to have significant amount of edema in all 4 extremities. Examination of the skin revealed no evidence of significant rashes, suspicious appearing nevi or other concerning lesions. Abdominal wound site is dry clean and intact. Neurologic the patient is sedated yet he seems to be arousable once off the sedation. The patient does not follow any commands. He grimaces to painful stimulation.. Currently he is well sedated. Pupils are equal and reactive to light. No signs of any head trauma. No nystagmus. No clonus. No Babinski. - Labs CBC & Chem 7: 03/07/20 03:58 03/07/20 03:58 Labs: Abnormal Lab Results - Last 24 Hours (Table) 03/06/20 03/06/20 03/06/20 Range/Units 11:58 11:58 12:02 WBC (3.8-10.6) k/uL RBC (4.30-5.90) m/uL Hgb (13.0-17.5) gm/dL Hct (39.0-53.0) % MCHC (31.0-37.0) g/dL RDW (11.5-15.5) % Neutrophils # (Manual) (1.3-7.7) k/uL Monocytes # (Manual) (0-1.0) k/uL Eosinophils # (Manual) (0-0.7) k/uL Metamyelocytes # (Man) (0) k/uL Myelocytes # (Manual) (0) k/uL Nucleated RBCs (0-0) /100 WBC INR 1.2 H (<1.2) APTT 132.4 H* (22.0-30.0) sec ABG pH (7.35-7.45) ABG pCO2 (35-45) mmHg Sodium (137-145) mmol/L BUN (9-20) mg/dL Creatinine (0.66-1.25) mg/dL Glucose (74-99) mg/dL POC Glucose (mg/dL) 134 H (75-99) mg/dL Calcium (8.4-10.2) mg/dL Phosphorus (2.5-4.5) mg/dL Total Bilirubin (0.2-1.3) mg/dL AST (17-59) U/L ALT (4-49) U/L Alkaline Phosphatase (38-126) U/L Total Protein (6.3-8.2) g/dL Albumin (3.5-5.0) g/dL Procalcitonin 6.24 H (0.02-0.09) ng/mL Urine Protein (Negative) Urine Blood (Negative) Ur Leukocyte Esterase (Negative) Amorphous Sediment (None) /hpf Hyaline Casts (0-2) /lpf Urine Mucus (None) /hpf 03/06/20 03/06/20 03/06/20 Range/Units 15:00 15:20 18:57 WBC (3.8-10.6) k/uL RBC (4.30-5.90) m/uL Hgb (13.0-17.5) gm/dL Hct (39.0-53.0) % MCHC (31.0-37.0) g/dL RDW (11.5-15.5) % Neutrophils # (Manual) (1.3-7.7) k/uL Monocytes # (Manual) (0-1.0) k/uL Eosinophils # (Manual) (0-0.7) k/uL Metamyelocytes # (Man) (0) k/uL Myelocytes # (Manual) (0) k/uL Nucleated RBCs (0-0) /100 WBC INR (<1.2) APTT 37.5 H (22.0-30.0) sec ABG pH (7.35-7.45) ABG pCO2 (35-45) mmHg Sodium (137-145) mmol/L BUN (9-20) mg/dL Creatinine (0.66-1.25) mg/dL Glucose (74-99) mg/dL POC Glucose (mg/dL) 103 H (75-99) mg/dL Calcium (8.4-10.2) mg/dL Phosphorus (2.5-4.5) mg/dL Total Bilirubin (0.2-1.3) mg/dL AST (17-59) U/L ALT (4-49) U/L Alkaline Phosphatase (38-126) U/L Total Protein (6.3-8.2) g/dL Albumin (3.5-5.0) g/dL Procalcitonin (0.02-0.09) ng/mL Urine Protein 2+ H (Negative) Urine Blood Small H (Negative) Ur Leukocyte Esterase Trace H (Negative) Amorphous Sediment Rare H (None) /hpf Hyaline Casts 4 H (0-2) /lpf Urine Mucus Rare H (None) /hpf 03/06/20 03/07/20 03/07/20 Range/Units 23:06 03:48 03:58 WBC 50.6 H* (3.8-10.6) k/uL RBC 2.60 L (4.30-5.90) m/uL Hgb 7.1 L (13.0-17.5) gm/dL Hct 22.9 L (39.0-53.0) % MCHC 30.8 L (31.0-37.0) g/dL RDW 17.6 H (11.5-15.5) % Neutrophils # (Manual) 34.40 H (1.3-7.7) k/uL Monocytes # (Manual) 3.54 H (0-1.0) k/uL Eosinophils # (Manual) 1.52 H (0-0.7) k/uL Metamyelocytes # (Man) 4.05 H (0) k/uL Myelocytes # (Manual) 6.07 H (0) k/uL Nucleated RBCs 27 H (0-0) /100 WBC INR (<1.2) APTT (22.0-30.0) sec ABG pH (7.35-7.45) ABG pCO2 (35-45) mmHg Sodium (137-145) mmol/L BUN (9-20) mg/dL Creatinine (0.66-1.25) mg/dL Glucose (74-99) mg/dL POC Glucose (mg/dL) 115 H (75-99) mg/dL Calcium (8.4-10.2) mg/dL Phosphorus 9.5 H* (2.5-4.5) mg/dL Total Bilirubin (0.2-1.3) mg/dL AST (17-59) U/L ALT (4-49) U/L Alkaline Phosphatase (38-126) U/L Total Protein (6.3-8.2) g/dL Albumin (3.5-5.0) g/dL Procalcitonin (0.02-0.09) ng/mL Urine Protein (Negative) Urine Blood (Negative) Ur Leukocyte Esterase (Negative) Amorphous Sediment (None) /hpf Hyaline Casts (0-2) /lpf Urine Mucus (None) /hpf 03/07/20 03/07/20 Range/Units 03:58 05:30 WBC (3.8-10.6) k/uL RBC (4.30-5.90) m/uL Hgb (13.0-17.5) gm/dL Hct (39.0-53.0) % MCHC (31.0-37.0) g/dL RDW (11.5-15.5) % Neutrophils # (Manual) (1.3-7.7) k/uL Monocytes # (Manual) (0-1.0) k/uL Eosinophils # (Manual) (0-0.7) k/uL Metamyelocytes # (Man) (0) k/uL Myelocytes # (Manual) (0) k/uL Nucleated RBCs (0-0) /100 WBC INR (<1.2) APTT (22.0-30.0) sec ABG pH 7.46 H (7.35-7.45) ABG pCO2 30 L (35-45) mmHg Sodium 132 L (137-145) mmol/L BUN 83 H (9-20) mg/dL Creatinine 4.08 H (0.66-1.25) mg/dL Glucose 108 H (74-99) mg/dL POC Glucose (mg/dL) (75-99) mg/dL Calcium 7.7 L (8.4-10.2) mg/dL Phosphorus (2.5-4.5) mg/dL Total Bilirubin 1.8 H (0.2-1.3) mg/dL AST 704 H (17-59) U/L ALT 377 H (4-49) U/L Alkaline Phosphatase 259 H (38-126) U/L Total Protein 4.5 L (6.3-8.2) g/dL Albumin 2.0 L (3.5-5.0) g/dL Procalcitonin (0.02-0.09) ng/mL Urine Protein (Negative) Urine Blood (Negative) Ur Leukocyte Esterase (Negative) Amorphous Sediment (None) /hpf Hyaline Casts (0-2) /lpf Urine Mucus (None) /hpf Microbiology - Last 24 Hours (Table) 03/06/20 23:49 Sputum Culture - Preliminary Sputum 03/05/20 11:27 Blood Culture - Preliminary Blood No Growth after 24 hours 03/05/20 10:55 Blood Culture - Preliminary Blood No Growth after 24 hours 03/01/20 09:10 Blood Culture - Preliminary Blood No Growth after 120 hours 03/02/20 08:30 CSF Gram Stain - Final Cerebral Spinal Fluid CSF Culture - Final Assessment and Plan Plan: 1 fall off a ladder with significant trauma to the chest and abdomen. The patient had sustained left-sided rib fractures, splenic rupture postsplenectomy, and a left-sided pneumothorax. 2 traumatic grade 3 laceration of the spleen along with hemoperitoneum and the patient is post splenectomy and the patient is postop day and the patient had the surgery on 02/17/2020. 3 traumatic left-sided rib fractures third drip through seventh rib along with a 30% left-sided pneumothorax post chest tube insertion with adequate expansion of the left lung. The left-sided chest tube was removed. The follow-up chest x-ray has not shown any residual pneumothorax. The patient remains on a mechanical ventilator. This is a ventilator changes were done. His most recent blood culture shows a component of respiratory alkalosis. 4 shock at the time of admission, essentially due to hemorrhagic shock, recovered and the patient on and off is still requiring low-dose pressor specially during hemodialysis. Currently the patient is on no pressors. 5 Acute kidney injury with massive fluid overload and the patient was started on hemodialysis. The patient is undergoing daily dialysis and he underwent dialysis 3 days in a row. Currently off dialysis 6 acute ventilator-dependent respiratory failure, hypoxic, secondary to above. The patient had diffuse bilateral pulmonary infiltrates. All of the cultures of been negative with exception of Selina and the patient completed a course of Eraxis. Consider the possibility of interstitial edema. The chest x-ray isn't showing bilateral pulmonary infiltrates which are essentially stable compared to yesterday. 7 chronic neck pain and the patient had been taken MS Contin on outpatient basis 15 mg twice a day 8 coronary artery disease with a previous bypass surgery 9 hyperlipidemia 10 BPH 11 delirium tremens as the patient is suspected alcoholism 12 paroxysmal atrial fibrillation and the patient is currently in A. fib on oral amiodarone. No anticoagulants. The patient is currently back to normal sinus rhythm. He is on no anticoagulants. 13 leukocytosis, secondary to C. diff colitis, with interval rise in the white cell count and development of some bandemia. This concerning for bowel ischemia specially the patient has positive stool for C. diff. the patient underwent a CAT scan of the abdomen and pelvis. It showed nonspecific colitis of the rectosigmoid and descending colon. White cell count remains elevated. Bandemia is improved. He is on a combination of vancomycin oral and IV Flagyl. 14 C. diff colitis currently on oral vancomycin, white cell count remains elevated . The patient is still having limited diarrhea. The patient on oral vancomycin and Flagyl. 15 anemia, multifactorial, chronic, hemoglobin has dropped down to 6.5 and the patient will be receiving a unit of packed RBC. The patient's hemoglobin is above 7 at this point in time 16, acute hepatic injury, shock liver with LFTs are essentially improving for now. No significant coagulopathy. Plan Continue ventilator support Neuropathy down the second of the respiratory rate down to 22. Hemodialysis by nephrology. He'll be given a break today in follow-up dialysis to be done tomorrow Discussed the case at [facility]. Pro-calcitonin is elevated related to his colitis CAT scan of the abdomen and pelvis was noted Monitor LFTs Continue enteral feeding for nutritional support Continue oral vancomycin regarding C. diff colitis and the patient is on Flagyl Repeated blood culture is still pending for now Discussed the case at [facility] trauma team, Dr. Heller We'll continue to follow. The patient is critically ill, and the patient will monitored very closely in the ICU. This is a critically care evaluation that was on a more than 30 minutes.
--- NOTE | 2020-03-07 12:05 | P.PN ---
Subjective This is Ayesha Valencia PA-C dictating a progress note on this patient The patient was interviewed and examined by me as well as by Dr. Torres Case discussed with Dr. Torres and he agrees with the plan of care HPI/interval history Patient is a 70-year-old male with a history of CAD status post CABG and paroxysmal atrial fibrillation who presented with a fall and multiple injuries. He underwent a splenectomy and a tracheostomy. He remains in the ICU, on the ventilator. He has had worsening renal function and has been started on dial ysis. As a result of his renal failure, his potassium was elevated and he had complete heart block in the setting of hyperkalemia. His Cardizem was discontinued. He went back into atrial fibrillation and is currently on oral amiodarone. Today he is in sinus rhythm. He remains on the ventilator. Bedside telemetry revealed sinus rhythm. EXAMINATION Patient is afebrile, pulse in the 80s, respirations 29, blood pressure 142/59, oxygen saturation 96% on mechanical ventilation Patient seen and examined in the ICU Breath sounds equal bilaterally Heart is regular, no audible murmurs Mild lower extremity edema REVIEW OF LABS, ECG WBC 50.6, hemoglobin 7.1, platelets 395, potassium 4.5, BUN 83, creatinine 4.08 IMPRESSION / ASSESSMENT: #1 fall with multiple injuries including a splenic injury status post splenectomy #2 status post tracheostomy #3 paroxysmal atrial fibrillation, currently in sinus rhythm, not on anticoagulation due to anemia #4 history of CAD status post CABG #5 acute blood loss anemia status post multiple transfusions, hemoglobin 6.5 #6 complete heart block in the setting of hyperkalemia, Cardizem on hold #7 acute renal failure requiring dialysis #8 elevated liver enzymes, improving PLAN: From a cardiac standpoint, continue the oral amiodarone Management of multiple other medical problems per ICU team and multiple consultants Objective - Vital Signs Vital signs: Vital Signs Temp 98.9 F 03/07/20 08:00 Pulse 88 03/07/20 11:21 Resp 29 H 03/07/20 11:00 BP 132/65 03/06/20 14:00 Pulse Ox 96 03/07/20 11:00 Intake & Output 03/06/20 03/07/20 03/07/20 18:59 06:59 18:59 Intake Total 1826.538 767.409 358 Output Total 3175 178 75 Balance -1348.462 589.409 283 Weight 103.1 kg Intake: IV 246 256 78 Pressure bag 36 36 18 Sodium Chloride 0.9% 1, 210 100 000 ml @ 20 mls/hr IV . Q24H [facility] Rx#:[id number] metroNIDAZOLE-NS PMX 500 120 60 mg In Saline 1 100ml.bag @ 100 mls/hr IVPB Q8HR [facility] Rx#:[id number] Intake, IV Titration 200.538 131.409 100 Amount Dexmedetomidine/0.9% NaCl 27.746 125.565 (Pmx) 400 mcg In Empty Bag 1 bag @ Titrate IV . Q0M [facility] Rx#:[id number] Norepinephrine 32 mg In 1.240 5.844 Sodium Chloride 0.9% 218 ml @ 0.14 MCG/KG/MIN 6. 759 mls/hr IV .Q24H [facility] Rx#:[id number] metroNIDAZOLE-NS PMX 500 100 100 mg In Saline 1 100ml.bag @ 100 mls/hr IVPB Q8HR [facility] Rx#:[id number] propofoL 1,000 mg In 71.552 Empty Bag 1 bag @ Titrate IV .Q0M [facility] Rx#: [id number] Tube Feeding 180 360 180 Other 1200 20 Output: Urine 175 178 75 Hemodialysis 3000 Other: Voiding Method Indwelling Catheter Indwelling Catheter ABP, PAP, CO, CI - Last Documented Arterial Blood Pressure 142/59 - Labs CBC & Chem 7: 03/07/20 03:58 03/07/20 03:58 Labs: Abnormal Lab Results - Last 24 Hours (Table) 03/06/20 03/06/20 03/06/20 Range/Units 11:58 11:58 15:00 WBC (3.8-10.6) k/uL RBC (4.30-5.90) m/uL Hgb (13.0-17.5) gm/dL Hct (39.0-53.0) % MCHC (31.0-37.0) g/dL RDW (11.5-15.5) % Neutrophils # (Manual) (1.3-7.7) k/uL Monocytes # (Manual) (0-1.0) k/uL Eosinophils # (Manual) (0-0.7) k/uL Metamyelocytes # (Man) (0) k/uL Myelocytes # (Manual) (0) k/uL Nucleated RBCs (0-0) /100 WBC INR 1.2 H (<1.2) APTT 132.4 H* 37.5 H (22.0-30.0) sec ABG pH (7.35-7.45) ABG pCO2 (35-45) mmHg Sodium (137-145) mmol/L BUN (9-20) mg/dL Creatinine (0.66-1.25) mg/dL Glucose (74-99) mg/dL POC Glucose (mg/dL) (75-99) mg/dL Calcium (8.4-10.2) mg/dL Phosphorus (2.5-4.5) mg/dL Total Bilirubin (0.2-1.3) mg/dL AST (17-59) U/L ALT (4-49) U/L Alkaline Phosphatase (38-126) U/L Total Protein (6.3-8.2) g/dL Albumin (3.5-5.0) g/dL Procalcitonin 6.24 H (0.02-0.09) ng/mL Urine Protein (Negative) Urine Blood (Negative) Ur Leukocyte Esterase (Negative) Amorphous Sediment (None) /hpf Hyaline Casts (0-2) /lpf Urine Mucus (None) /hpf 03/06/20 03/06/20 03/06/20 Range/Units 15:20 18:57 23:06 WBC (3.8-10.6) k/uL RBC (4.30-5.90) m/uL Hgb (13.0-17.5) gm/dL Hct (39.0-53.0) % MCHC (31.0-37.0) g/dL RDW (11.5-15.5) % Neutrophils # (Manual) (1.3-7.7) k/uL Monocytes # (Manual) (0-1.0) k/uL Eosinophils # (Manual) (0-0.7) k/uL Metamyelocytes # (Man) (0) k/uL Myelocytes # (Manual) (0) k/uL Nucleated RBCs (0-0) /100 WBC INR (<1.2) APTT (22.0-30.0) sec ABG pH (7.35-7.45) ABG pCO2 (35-45) mmHg Sodium (137-145) mmol/L BUN (9-20) mg/dL Creatinine (0.66-1.25) mg/dL Glucose (74-99) mg/dL POC Glucose (mg/dL) 103 H 115 H (75-99) mg/dL Calcium (8.4-10.2) mg/dL Phosphorus (2.5-4.5) mg/dL Total Bilirubin (0.2-1.3) mg/dL AST (17-59) U/L ALT (4-49) U/L Alkaline Phosphatase (38-126) U/L Total Protein (6.3-8.2) g/dL Albumin (3.5-5.0) g/dL Procalcitonin (0.02-0.09) ng/mL Urine Protein 2+ H (Negative) Urine Blood Small H (Negative) Ur Leukocyte Esterase Trace H (Negative) Amorphous Sediment Rare H (None) /hpf Hyaline Casts 4 H (0-2) /lpf Urine Mucus Rare H (None) /hpf 03/07/20 03/07/20 03/07/20 Range/Units 03:48 03:58 03:58 WBC 50.6 H* (3.8-10.6) k/uL RBC 2.60 L (4.30-5.90) m/uL Hgb 7.1 L (13.0-17.5) gm/dL Hct 22.9 L (39.0-53.0) % MCHC 30.8 L (31.0-37.0) g/dL RDW 17.6 H (11.5-15.5) % Neutrophils # (Manual) 34.40 H (1.3-7.7) k/uL Monocytes # (Manual) 3.54 H (0-1.0) k/uL Eosinophils # (Manual) 1.52 H (0-0.7) k/uL Metamyelocytes # (Man) 4.05 H (0) k/uL Myelocytes # (Manual) 6.07 H (0) k/uL Nucleated RBCs 27 H (0-0) /100 WBC INR (<1.2) APTT (22.0-30.0) sec ABG pH (7.35-7.45) ABG pCO2 (35-45) mmHg Sodium 132 L (137-145) mmol/L BUN 83 H (9-20) mg/dL Creatinine 4.08 H (0.66-1.25) mg/dL Glucose 108 H (74-99) mg/dL POC Glucose (mg/dL) (75-99) mg/dL Calcium 7.7 L (8.4-10.2) mg/dL Phosphorus 9.5 H* (2.5-4.5) mg/dL Total Bilirubin 1.8 H (0.2-1.3) mg/dL AST 704 H (17-59) U/L ALT 377 H (4-49) U/L Alkaline Phosphatase 259 H (38-126) U/L Total Protein 4.5 L (6.3-8.2) g/dL Albumin 2.0 L (3.5-5.0) g/dL Procalcitonin (0.02-0.09) ng/mL Urine Protein (Negative) Urine Blood (Negative) Ur Leukocyte Esterase (Negative) Amorphous Sediment (None) /hpf Hyaline Casts (0-2) /lpf Urine Mucus (None) /hpf 03/07/20 Range/Units 05:30 WBC (3.8-10.6) k/uL RBC (4.30-5.90) m/uL Hgb (13.0-17.5) gm/dL Hct (39.0-53.0) % MCHC (31.0-37.0) g/dL RDW (11.5-15.5) % Neutrophils # (Manual) (1.3-7.7) k/uL Monocytes # (Manual) (0-1.0) k/uL Eosinophils # (Manual) (0-0.7) k/uL Metamyelocytes # (Man) (0) k/uL Myelocytes # (Manual) (0) k/uL Nucleated RBCs (0-0) /100 WBC INR (<1.2) APTT (22.0-30.0) sec ABG pH 7.46 H (7.35-7.45) ABG pCO2 30 L (35-45) mmHg Sodium (137-145) mmol/L BUN (9-20) mg/dL Creatinine (0.66-1.25) mg/dL Glucose (74-99) mg/dL POC Glucose (mg/dL) (75-99) mg/dL Calcium (8.4-10.2) mg/dL Phosphorus (2.5-4.5) mg/dL Total Bilirubin (0.2-1.3) mg/dL AST (17-59) U/L ALT (4-49) U/L Alkaline Phosphatase (38-126) U/L Total Protein (6.3-8.2) g/dL Albumin (3.5-5.0) g/dL Procalcitonin (0.02-0.09) ng/mL Urine Protein (Negative) Urine Blood (Negative) Ur Leukocyte Esterase (Negative) Amorphous Sediment (None) /hpf Hyaline Casts (0-2) /lpf Urine Mucus (None) /hpf Microbiology - Last 24 Hours (Table) 03/01/20 09:10 Blood Culture - Final Blood No Growth after 144 hours 03/06/20 08:45 Blood Culture - Preliminary Blood No Growth after 24 hours 03/06/20 23:49 Sputum Culture - Preliminary Sputum 03/05/20 11:27 Blood Culture - Preliminary Blood No Growth after 24 hours 03/05/20 10:55 Blood Culture - Preliminary Blood No Growth after 24 hours 03/02/20 08:30 CSF Gram Stain - Final Cerebral Spinal Fluid CSF Culture - Final
[2020-03-07 13:20] LABS: Glucose,Whole Blood 111 mg/dL (75-99)
[2020-03-07] MEDS: CALCIUM ACETATE 667 MG TAB PO SCH ×2 (13:25→16:39)
--- NOTE | 2020-03-07 15:54 | P.PN ---
Subjective Progress Note Date: 03/07/20 Principal diagnosis: Multiple traumas s/p fall from 15 feet ladder Mr. Nugent is a 70-year-old male with a past medical history of coronary artery disease status post CABG, hyperlipidemia, prostate cancer, chronic neck and back pain, cervical fusion done in 2008 coming in through the emergency department after having a fall from 15 feet ladder. Patient was cleaning gutters fell and brought to the hospital. Patient had multiple left-sided fractures from third to seventh rib and also had splenectomy done for splenic injury. Patient had CAT scan of the brain showing no acute intracranial process and CAT scan of the cervical spine showed no acute abnormalities. His hospital course was complicated - he had chest tubes placed on the left side, he required hemodialysis. Patient had a heart block being treated per cardiology. He also had C. diff positive. Multiple consultants including pulmonary, cardiology, ID, surgery, nephrology, vascular surgery, neurology following the patient. On 03/06/2020 -patient is in the ICU. He is intubated via trach. Patient only grimaces to painful to stimuli. Patient's at the bedside, she states that since being in the hospital patient's neurological status did not improve. He is currently on assist control mode of ventilation. Blood gases show pH of 7.4, pO2 of 84, pCO2 of 31. On reviewing his labs his white count seems to be trending up it is a 53.4 with 31% band neutrophils. Sodium of 133, potassium of 4.3, chloride 99, bicarbonate 22, WN 82, creatinine 4.20. Albumin 2.0. Patient's LFTs trending down today AST of 1477, AST of 533 and alkaline phosphatase of 252. On 03/07/2020 - patient is in the ICU. His is at the bedside. No acute events reported by the nursing staff overnight. This morning patient was given a sedation holiday, after which he became tachypneic and tachycardic and his blood pressure shot up to 200 systolic, later on he was started back on sedation with Precedex infusion. His ABG from this morning showed pH of 7.46, pCO2 of 30, PaO2 of 88 on 40% FiO2. Patient had a CAT scan of the abdomen and pelvis showing increased abdominal ascites and wall thickening of left colon and rectosigmoid colon that is new compared to old exam which is consistent with nonspecific colitis and bilateral lower lobe pulmonary consolidation and atelectasis and pleural fluid unchanged. Patient's labs this morning show white count of history and 50.6, hemoglobin 7.1, platelets 395. Active Medications Acetaminophen (Tylenol Tab) 650 mg PO Q6HR PRN PRN Reason: Fever and/ or Pain Last Admin: 03/01/20 13:25 Dose: 650 mg Documented by: Albuterol/Ipratropium (Duoneb 0.5 Mg-3 Mg/3 Ml Soln) 3 ml INHALATION RT-Q4H [facility] Last Admin: 03/07/20 15:46 Dose: 3 ml Documented by: Amiodarone HCl (Cordarone) 200 mg PO BID [facility] Last Admin: 03/07/20 09:01 Dose: 200 mg Documented by: Calcium Acetate (Calcium Acetate 667 Mg Tab) 667 mg PO TID-W/MEALS [facility] Last Admin: 03/07/20 13:25 Dose: 667 mg Documented by: Chlorhexidine Gluconate (Chlorhexidine Gluconate 15 Ml Cup) 15 ml MUCOUS MEM BID [facility] Last Admin: 03/07/20 09:01 Dose: 15 ml Documented by: Darbepoetin Telly (Darbepoetin Telly 40 Mcg/0.4 Ml Syringe) 40 mcg SQ Q7D [facility] Last Admin: 03/05/20 15:07 Dose: 40 mcg Documented by: Enoxaparin Sodium (Lovenox) 30 mg SQ DAILY [facility] Last Admin: 03/07/20 09:01 Dose: 30 mg Documented by: Finasteride (Proscar) 5 mg PO HS [facility] Last Admin: 03/06/20 21:03 Dose: 5 mg Documented by: Sodium Chloride (Saline 0.9%) 1,000 mls @ 20 mls/hr IV .Q24H [facility] Last Admin: 03/07/20 09:07 Dose: Not Given Documented by: Propofol 1,000 mg/ IV Solution 100 mls @ 0 mls/hr IV .Q0M [facility]; Protocol Last Titration: 03/06/20 15:00 Dose: 20 mcg/kg/min, 12.564 mls/hr Documented by: Norepinephrine Bitartrate 32 (mg/ Sodium Chloride) 250 mls @ 6.759 mls/hr IV .Q24H [facility]; Protocol Last Admin: 03/07/20 05:01 Dose: Not Given Documented by: Lactated Ringer's (Lactated Ringers) 1,000 mls @ 20 mls/hr IV .Q24H [facility] Last Admin: 03/06/20 23:55 Dose: Not Given Documented by: Metronidazole 500 mg/ IV (Solution) 100 mls @ 100 mls/hr IVPB Q8HR [facility] Last Admin: 03/07/20 15:40 Dose: 100 mls/hr Documented by: Dexmedetomidine HCl 400 mcg/ (IV Solution) 100 mls @ 0 mls/hr IV .Q0M [facility]; Protocol Stop: 03/08/20 15:24 Last Admin: 03/07/20 15:41 Dose: 0.5 mcg/kg/hr, 12.888 mls/hr Documented by: Insulin Aspart (Novolog) 0 unit SQ Q6HR [facility]; Protocol Last Admin: 03/07/20 13:19 Dose: Not Given Documented by: Miscellaneous Information (Magnesium Per Protocol) 1 each MISCELLANE DAILY PRN; Protocol PRN Reason: Per Protocol Miscellaneous Information (Potassium Per Protocol) 1 each MISCELLANE DAILY PRN; Protocol PRN Reason: Per Protocol Morphine Sulfate (Morphine Sulfate (Inj)) 2 mg IVP Q2H PRN PRN Reason: Pain/Discomfort Last Admin: 03/05/20 15:03 Dose: 2 mg Documented by: Morphine Sulfate (Morphine Sulfate (Inj)) 4 mg IVP Q2H PRN PRN Reason: Pain Morphine Sulfate (Morphine Oral Soln 10 Mg/5 Ml Cup) 10 mg PO Q8HR [facility] Last Admin: 03/07/20 09:05 Dose: 10 mg Documented by: Naloxone HCl (Narcan) 0.2 mg IV Q2M PRN PRN Reason: Opioid Reversal Pantoprazole Sodium (Protonix) 40 mg IVP DAILY [facility] Last Admin: 03/07/20 09:01 Dose: 40 mg Documented by: Sodium Bicarbonate (Sodium Bicarbonate Tab) 650 mg PO TID [facility] Last Admin: 03/07/20 09:01 Dose: 650 mg Documented by: Sodium Chloride (Saline Flush) 10 ml IV Q4HR PRN PRN Reason: PICC Line Sodium Chloride (Saline Flush) 10 ml IV WEEKLY [facility] Last Admin: 03/04/20 10:48 Dose: 10 ml Documented by: Sodium Chloride (Saline Flush) 20 ml IV Q4HR PRN PRN Reason: PICC Line Tamsulosin HCl (Flomax) 0.8 mg PO HS [facility] Last Admin: 03/06/20 21:03 Dose: 0.8 mg Documented by: Thiamine HCl (Vitamin B-1) 100 mg PO DAILY [facility] Last Admin: 03/07/20 09:01 Dose: 100 mg Documented by: Vancomycin HCl (Vancomycin Oral Solution 250 Mg/5 Ml Bottle) 500 mg PO Q6HR [facility] Last Admin: 03/07/20 13:25 Dose: 500 mg Documented by: Objective - Vital Signs Vital signs: Vital Signs Temp 98.9 F 03/07/20 08:00 Pulse 87 03/07/20 15:46 Resp 22 03/07/20 15:46 BP 132/65 03/06/20 14:00 Pulse Ox 96 03/07/20 15:00 Intake & Output 03/06/20 03/07/20 03/07/20 18:59 06:59 18:59 Intake Total 1826.538 767.409 444 Output Total 3175 178 110 Balance -1348.462 589.409 334 Weight 103.1 kg Intake: IV 246 256 104 Pressure bag 36 36 24 Sodium Chloride 0.9% 1, 210 100 000 ml @ 20 mls/hr IV . Q24H [facility] Rx#:[id number] metroNIDAZOLE-NS PMX 500 120 80 mg In Saline 1 100ml.bag @ 100 mls/hr IVPB Q8HR [facility] Rx#:[id number] Intake, IV Titration 200.538 131.409 100 Amount Dexmedetomidine/0.9% NaCl 27.746 125.565 (Pmx) 400 mcg In Empty Bag 1 bag @ Titrate IV . Q0M [facility] Rx#:[id number] Norepinephrine 32 mg In 1.240 5.844 Sodium Chloride 0.9% 218 ml @ 0.14 MCG/KG/MIN 6. 759 mls/hr IV .Q24H [facility] Rx#:[id number] metroNIDAZOLE-NS PMX 500 100 100 mg In Saline 1 100ml.bag @ 100 mls/hr IVPB Q8HR [facility] Rx#:[id number] propofoL 1,000 mg In 71.552 Empty Bag 1 bag @ Titrate IV .Q0M [facility] Rx#: [id number] Tube Feeding 180 360 240 Other 1200 20 Output: Urine 175 178 110 Hemodialysis 3000 Other: Voiding Method Indwelling Catheter Indwelling Catheter ABP, PAP, CO, CI - Last Documented Arterial Blood Pressure 156/62 - Exam - Exam -GENERAL: The patient is intubated and sedated, patient has purposeless movements HEENT: Pupils are round and equally reacting to light CARDIOVASCULAR: S1 and S2 present. No murmurs, rubs, or gallops. PULMONARY: Chest is clear to auscultation, no wheezing or crackles. Left-sided chest tube midline vertical surgical wound is clean and dry and closed ABDOMEN: Soft, nontender, nondistended, normoactive bowel sounds. MUSCULOSKELETAL: No joint swelling or deformity. EXTREMITIES: Bilateral pitting edema in both upper and lower extremities. He also has scrotal edema. NEUROLOGICAL: Patient's eyes were open and has purposeless eye movements. Does not follow commands. SKIN: No rashes. no petechiae. - Labs CBC & Chem 7: 03/07/20 03:58 03/07/20 03:58 Labs: Abnormal Lab Results - Last 24 Hours (Table) 03/06/20 03/06/20 03/06/20 Range/Units 11:58 15:00 15:20 WBC (3.8-10.6) k/uL RBC (4.30-5.90) m/uL Hgb (13.0-17.5) gm/dL Hct (39.0-53.0) % MCHC (31.0-37.0) g/dL RDW (11.5-15.5) % Neutrophils # (Manual) (1.3-7.7) k/uL Monocytes # (Manual) (0-1.0) k/uL Eosinophils # (Manual) (0-0.7) k/uL Metamyelocytes # (Man) (0) k/uL Myelocytes # (Manual) (0) k/uL Nucleated RBCs (0-0) /100 WBC APTT 37.5 H (22.0-30.0) sec ABG pH (7.35-7.45) ABG pCO2 (35-45) mmHg Sodium (137-145) mmol/L BUN (9-20) mg/dL Creatinine (0.66-1.25) mg/dL Glucose (74-99) mg/dL POC Glucose (mg/dL) (75-99) mg/dL Calcium (8.4-10.2) mg/dL Phosphorus (2.5-4.5) mg/dL Total Bilirubin (0.2-1.3) mg/dL AST (17-59) U/L ALT (4-49) U/L Alkaline Phosphatase (38-126) U/L Total Protein (6.3-8.2) g/dL Albumin (3.5-5.0) g/dL Procalcitonin 6.24 H (0.02-0.09) ng/mL Urine Protein 2+ H (Negative) Urine Blood Small H (Negative) Ur Leukocyte Esterase Trace H (Negative) Amorphous Sediment Rare H (None) /hpf Hyaline Casts 4 H (0-2) /lpf Urine Mucus Rare H (None) /hpf 03/06/20 03/06/20 03/07/20 Range/Units 18:57 23:06 03:48 WBC (3.8-10.6) k/uL RBC (4.30-5.90) m/uL Hgb (13.0-17.5) gm/dL Hct (39.0-53.0) % MCHC (31.0-37.0) g/dL RDW (11.5-15.5) % Neutrophils # (Manual) (1.3-7.7) k/uL Monocytes # (Manual) (0-1.0) k/uL Eosinophils # (Manual) (0-0.7) k/uL Metamyelocytes # (Man) (0) k/uL Myelocytes # (Manual) (0) k/uL Nucleated RBCs (0-0) /100 WBC APTT (22.0-30.0) sec ABG pH (7.35-7.45) ABG pCO2 (35-45) mmHg Sodium (137-145) mmol/L BUN (9-20) mg/dL Creatinine (0.66-1.25) mg/dL Glucose (74-99) mg/dL POC Glucose (mg/dL) 103 H 115 H (75-99) mg/dL Calcium (8.4-10.2) mg/dL Phosphorus 9.5 H* (2.5-4.5) mg/dL Total Bilirubin (0.2-1.3) mg/dL AST (17-59) U/L ALT (4-49) U/L Alkaline Phosphatase (38-126) U/L Total Protein (6.3-8.2) g/dL Albumin (3.5-5.0) g/dL Procalcitonin (0.02-0.09) ng/mL Urine Protein (Negative) Urine Blood (Negative) Ur Leukocyte Esterase (Negative) Amorphous Sediment (None) /hpf Hyaline Casts (0-2) /lpf Urine Mucus (None) /hpf 03/07/20 03/07/20 03/07/20 Range/Units 03:58 03:58 05:30 WBC 50.6 H* (3.8-10.6) k/uL RBC 2.60 L (4.30-5.90) m/uL Hgb 7.1 L (13.0-17.5) gm/dL Hct 22.9 L (39.0-53.0) % MCHC 30.8 L (31.0-37.0) g/dL RDW 17.6 H (11.5-15.5) % Neutrophils # (Manual) 34.40 H (1.3-7.7) k/uL Monocytes # (Manual) 3.54 H (0-1.0) k/uL Eosinophils # (Manual) 1.52 H (0-0.7) k/uL Metamyelocytes # (Man) 4.05 H (0) k/uL Myelocytes # (Manual) 6.07 H (0) k/uL Nucleated RBCs 27 H (0-0) /100 WBC APTT (22.0-30.0) sec ABG pH 7.46 H (7.35-7.45) ABG pCO2 30 L (35-45) mmHg Sodium 132 L (137-145) mmol/L BUN 83 H (9-20) mg/dL Creatinine 4.08 H (0.66-1.25) mg/dL Glucose 108 H (74-99) mg/dL POC Glucose (mg/dL) (75-99) mg/dL Calcium 7.7 L (8.4-10.2) mg/dL Phosphorus (2.5-4.5) mg/dL Total Bilirubin 1.8 H (0.2-1.3) mg/dL AST 704 H (17-59) U/L ALT 377 H (4-49) U/L Alkaline Phosphatase 259 H (38-126) U/L Total Protein 4.5 L (6.3-8.2) g/dL Albumin 2.0 L (3.5-5.0) g/dL Procalcitonin (0.02-0.09) ng/mL Urine Protein (Negative) Urine Blood (Negative) Ur Leukocyte Esterase (Negative) Amorphous Sediment (None) /hpf Hyaline Casts (0-2) /lpf Urine Mucus (None) /hpf 03/07/20 Range/Units 13:18 WBC (3.8-10.6) k/uL RBC (4.30-5.90) m/uL Hgb (13.0-17.5) gm/dL Hct (39.0-53.0) % MCHC (31.0-37.0) g/dL RDW (11.5-15.5) % Neutrophils # (Manual) (1.3-7.7) k/uL Monocytes # (Manual) (0-1.0) k/uL Eosinophils # (Manual) (0-0.7) k/uL Metamyelocytes # (Man) (0) k/uL Myelocytes # (Manual) (0) k/uL Nucleated RBCs (0-0) /100 WBC APTT (22.0-30.0) sec ABG pH (7.35-7.45) ABG pCO2 (35-45) mmHg Sodium (137-145) mmol/L BUN (9-20) mg/dL Creatinine (0.66-1.25) mg/dL Glucose (74-99) mg/dL POC Glucose (mg/dL) 111 H (75-99) mg/dL Calcium (8.4-10.2) mg/dL Phosphorus (2.5-4.5) mg/dL Total Bilirubin (0.2-1.3) mg/dL AST (17-59) U/L ALT (4-49) U/L Alkaline Phosphatase (38-126) U/L Total Protein (6.3-8.2) g/dL Albumin (3.5-5.0) g/dL Procalcitonin (0.02-0.09) ng/mL Urine Protein (Negative) Urine Blood (Negative) Ur Leukocyte Esterase (Negative) Amorphous Sediment (None) /hpf Hyaline Casts (0-2) /lpf Urine Mucus (None) /hpf Microbiology - Last 24 Hours (Table) 03/06/20 23:49 Gram Stain - Preliminary Sputum Sputum Culture - Preliminary 03/05/20 11:27 Blood Culture - Preliminary Blood No Growth after 48 hours 03/05/20 10:55 Blood Culture - Preliminary Blood No Growth after 48 hours 03/01/20 09:10 Blood Culture - Final Blood No Growth after 144 hours 03/06/20 08:45 Blood Culture - Preliminary Blood No Growth after 24 hours Assessment and Plan Assessment: ASSESSMENT - Fall from 15 feet ladder with multiple traumatic injuries to the chest and abdomen - 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 diff colitis - Chronic neck pain status post cervical fusion done in 2008 -Coronary artery disease status post CABG - Hyperlipidemia - BPH - Paroxysmal atrial fibrillation on amiodarone -Acute liver injury, possibly shock liver as LFTs have been significantly high and currently trending down PLAN: Patient is to be continued on ventilatory support. Dialysis as per nephrology recommendation. Patient's white count has been trending up with 31% bands, he is on antibiotics in the form of oral vancomycin and IV Flagyl. Possible PEG tube placement tomorrow. Overall prognosis is poor. Patient did not tolerate sedation holiday well, he was put back on Precedex infusion. Multiple consultants including pulmonary, nephrology, ID, vascular, cardiology, neurology on board and following the patient. The treatment plan was discussed in detail with the patient's at the bedside today. Further recommendations to follow depending on the progress of the patient. Had a discussion with and she is looking into LTAC facilities for long-term care.
[2020-03-07 16:54] LABS: Glucose,Whole Blood 132 mg/dL (75-99)
[2020-03-07] MEDS: MORPHINE SULFATE 2 MG/ML SYRINGE IVP PRN (20:40)
[2020-03-07] MEDS: TAMSULOSIN 0.4 MG CAP.ER.24H PO SCH (21:37)
[2020-03-07] MEDS: FINASTERIDE 5 MG TAB PO SCH (21:37)
[2020-03-07 23:48] LABS: Glucose,Whole Blood 125 mg/dL (75-99)
[2020-03-07] MEDS: LACTATED RINGERS 1,000 ML IV SCH (23:50)
[2020-03-08] MEDS: MORPHINE SULFATE 2 MG/ML SYRINGE IVP PRN ×5 (00:08→14:49)
[2020-03-08] MEDS: MORPHINE SULFATE 4 MG/ML SYRINGE IVP PRN ×2 (02:09→18:17)
[2020-03-08] MEDS: IPRATROPIUM-ALBUTEROL 3 ML NEB INHALATION SCH ×5 (03:10→19:54)
[2020-03-08 04:12] LABS: Anisocytosis Slight; Hypochromasia Moderate; MCH 27.3 pg (25.0-35.0); MCHC 30.4 g/dL (31.0-37.0); MCV 89.7 fL (80.0-100.0); Mean Platelet Volume 11.3; Platelet Count 380 k/uL (150-450); Poikilocytosis Slight; RBC 2.56 m/uL (4.30-5.90); RDW 19.3 % (11.5-15.5)
[2020-03-08 04:20] LABS: ABG Base Excess -4.4 mmol/L; ABG HCO3 20 mmol/L (21-25); ABG Oxygen Saturation 97.4 % (94-97); ABG PCO2 32 mmHg (35-45); ABG PH 7.41 (7.35-7.45); ABG PO2 102 mmHg (83-108); ABG TCO2 21 mmol/L (19-24)
[2020-03-08 04:22] LABS: Allen Test Performed? no
[2020-03-08 04:28] LABS: Calcium 7.8 mg/dL (8.4-10.2); Potassium 5.2 mmol/L (3.5-5.1); Total Bilirubin 1.7 mg/dL (0.2-1.3); Total Protein 4.5 g/dL (6.3-8.2)
[2020-03-08] MEDS: NOREPINEPHRINE 32 MG in SODIUM CHLORIDE 0.9% 218 ML IV SCH (04:34)
[2020-03-08] MEDS: DEXMEDETOMIDINE/0.9% NACL(PMX) 400 MCG in EMPTY BAG 1 BAG IV SCH ×4 (05:02→21:13)
[2020-03-08 05:06] LABS: Band Neutrophils % 19 %; Eosinophils # (M) 1.82 k/uL (0-0.7); Metamyelocytes % 10 %; Monocytes # (M) 2.08 k/uL (0-1.0); Myelocytes # (M) 0.52 k/uL (0); Myelocytes % 2 %; Neutrophils % (M) 50 %; Nucleated Red Blood Cells 72 /100 WBC (0-0); Total Cells Counted 200
[2020-03-08 05:07] LABS: Large Platelets Present; Polychromasia Present; Target Cells Present
[2020-03-08] MEDS: VANCOMYCIN ORAL SOLUTION 250 MG/5 ML BOTTLE PO SCH ×4 (05:08→23:43)
[2020-03-08 06:12] LABS: Glucose,Whole Blood 125 mg/dL (75-99)
[2020-03-08] MEDS: INSULIN ASPART (NovoLOG) 100 UNIT/ML VIAL SQ SCH ×4 (06:12→23:32)
[2020-03-08] MEDS ORDERED: HALOPERIDOL LACTATE 5 MG/ML 1 ML VIAL IVP ONE (06:16)
[2020-03-08] MEDS: CALCIUM ACETATE 667 MG TAB PO SCH ×3 (06:47→16:49)
[2020-03-08] MEDS: ENOXAPARIN 30 MG/0.3 ML SYRINGE SQ SCH ×2 (07:58→09:48)
[2020-03-08] MEDS: CHLORHEXIDINE GLUCONATE 15 ML CUP MUCOUS MEM SCH ×2 (08:05→20:46)
[2020-03-08] MEDS: PANTOPRAZOLE 40 MG/10 ML VIAL IVP SCH (08:05)
[2020-03-08] MEDS: metroNIDAZOLE-NS PMX 500 MG in SALINE 1 100ML.BAG IVPB SCH ×4 (08:05→23:43)
--- NOTE | 2020-03-08 08:07 | XR ---
EXAMINATION TYPE: XR chest 1V DATE OF EXAM: 03/08/2020 COMPARISON: 03/07/2020 HISTORY: SOB, Follow Up FINDINGS: Indwelling tubes and catheters are unchanged. No change in bibasilar opacities. Stable appearance of the cardio-mediastinal structures at this time. Pleural effusion unchanged. IMPRESSION: 1. Stable portable chest. Clinical correlation and follow up until resolution is recommended.
[2020-03-08] MEDS ORDERED: SODIUM BICARB 8.4% 50 ML SYR (1 MEQ/ML) IV STA (09:03)
--- NOTE | 2020-03-08 09:30 | P.PN ---
Subjective Progress Note Date: 03/08/20 This is a 70-year-old gentleman with history of CAD status post CABG and paroxysmal atrial fibrillation who was admitted to the hospital with a fall and multiple injuries. Patient needed Splenectomy and a prolonged ventilatory support and had tracheostomy. Patient is also on dialysis for renal failure. Patient had episodes of atrial fibrillation and conversion to sinus rhythm. Also had episodes of complete heart block with hyperkalemia episodes. Currently he seems to be in sinus rhythm with frequent APCs. She is on oral amiodarone. He is going to go have a PEG tube today and he will medication was resumed. No other cardiac issues at this time. Objective - Vital Signs Vital signs: Vital Signs Temp 99.5 F 03/08/20 08:00 Pulse 95 03/08/20 08:00 Resp 22 03/08/20 08:00 BP 132/65 03/06/20 14:00 Pulse Ox 96 03/08/20 08:00 Intake & Output 03/07/20 03/08/20 03/08/20 18:59 06:59 18:59 Intake Total 716 492.445 16 Output Total 160 325 55 Balance 556 167.445 -39 Weight 101.7 kg Intake: IV 156 146 16 Pressure bag 36 36 6 Sodium Chloride 0.9% 1, 10 000 ml @ 20 mls/hr IV . Q24H [facility] Rx#:[id number] metroNIDAZOLE-NS PMX 500 120 110 mg In Saline 1 100ml.bag @ 100 mls/hr IVPB Q8HR BETTINA Rx#:[id number] Intake, IV Titration 200 196.445 Amount Dexmedetomidine/0.9% NaCl 196.445 (Pmx) 400 mcg In Empty Bag 1 bag @ Titrate IV . Q0M [facility] Rx#:[id number] metroNIDAZOLE-NS PMX 500 200 mg In Saline 1 100ml.bag @ 100 mls/hr IVPB Q8HR BETTINA Rx#:[id number] Tube Feeding 360 150 0 Output: Urine 160 325 55 Other: Voiding Method Indwelling Catheter Indwelling Catheter Indwelling Catheter ABP, PAP, CO, CI - Last Documented Arterial Blood Pressure 138/55 - Exam Patient on ventilator with tracheostomy. Sedated. Maintaining sinus rhythm with frequent APCs HEENT: Normocephalic. NECK: No masses, no nuchal rigidity. CHEST: No chest wall deformity. LUNGS: Diminished breath sounds HEART: S1 and S2 normal. Irregular heart rhythm ABDOMEN: Soft SKIN: No rashes CENTRAL NERVOUS SYSTEM: Sedated EXTREMITIES: No cyanosis, clubbing or edema. - Labs CBC & Chem 7: 03/08/20 04:00 03/08/20 04:00 Labs: Abnormal Lab Results - Last 24 Hours (Table) 03/07/20 03/07/20 03/07/20 Range/Units 13:18 16:52 23:47 WBC (3.8-10.6) k/uL RBC (4.30-5.90) m/uL Hgb (13.0-17.5) gm/dL Hct (39.0-53.0) % MCHC (31.0-37.0) g/dL RDW (11.5-15.5) % Neutrophils # (Manual) (1.3-7.7) k/uL Monocytes # (Manual) (0-1.0) k/uL Eosinophils # (Manual) (0-0.7) k/uL Metamyelocytes # (Man) (0) k/uL Myelocytes # (Manual) (0) k/uL Nucleated RBCs (0-0) /100 WBC ABG pCO2 (35-45) mmHg ABG HCO3 (21-25) mmol/L ABG O2 Saturation (94-97) % Sodium (137-145) mmol/L Potassium (3.5-5.1) mmol/L Carbon Dioxide (22-30) mmol/L BUN (9-20) mg/dL Creatinine (0.66-1.25) mg/dL Glucose (74-99) mg/dL POC Glucose (mg/dL) 111 H 132 H 125 H (75-99) mg/dL Calcium (8.4-10.2) mg/dL Total Bilirubin (0.2-1.3) mg/dL AST (17-59) U/L ALT (4-49) U/L Alkaline Phosphatase (38-126) U/L Total Protein (6.3-8.2) g/dL Albumin (3.5-5.0) g/dL 03/08/20 03/08/20 03/08/20 Range/Units 04:00 04:00 04:14 WBC 26.0 H (3.8-10.6) k/uL RBC 2.56 L (4.30-5.90) m/uL Hgb 7.0 L (13.0-17.5) gm/dL Hct 23.0 L (39.0-53.0) % MCHC 30.4 L (31.0-37.0) g/dL RDW 19.3 H (11.5-15.5) % Neutrophils # (Manual) 17.90 H (1.3-7.7) k/uL Monocytes # (Manual) 2.08 H (0-1.0) k/uL Eosinophils # (Manual) 1.82 H (0-0.7) k/uL Metamyelocytes # (Man) 2.60 H (0) k/uL Myelocytes # (Manual) 0.52 H (0) k/uL Nucleated RBCs 72 H (0-0) /100 WBC ABG pCO2 32 L (35-45) mmHg ABG HCO3 20 L (21-25) mmol/L ABG O2 Saturation 97.4 H (94-97) % Sodium 132 L (137-145) mmol/L Potassium 5.2 H (3.5-5.1) mmol/L Carbon Dioxide 19 L (22-30) mmol/L BUN 108 H* (9-20) mg/dL Creatinine 4.95 H (0.66-1.25) mg/dL Glucose 103 H (74-99) mg/dL POC Glucose (mg/dL) (75-99) mg/dL Calcium 7.8 L (8.4-10.2) mg/dL Total Bilirubin 1.7 H (0.2-1.3) mg/dL AST 310 H (17-59) U/L ALT 260 H (4-49) U/L Alkaline Phosphatase 299 H (38-126) U/L Total Protein 4.5 L (6.3-8.2) g/dL Albumin 2.0 L (3.5-5.0) g/dL 03/08/20 Range/Units 06:11 WBC (3.8-10.6) k/uL RBC (4.30-5.90) m/uL Hgb (13.0-17.5) gm/dL Hct (39.0-53.0) % MCHC (31.0-37.0) g/dL RDW (11.5-15.5) % Neutrophils # (Manual) (1.3-7.7) k/uL Monocytes # (Manual) (0-1.0) k/uL Eosinophils # (Manual) (0-0.7) k/uL Metamyelocytes # (Man) (0) k/uL Myelocytes # (Manual) (0) k/uL Nucleated RBCs (0-0) /100 WBC ABG pCO2 (35-45) mmHg ABG HCO3 (21-25) mmol/L ABG O2 Saturation (94-97) % Sodium (137-145) mmol/L Potassium (3.5-5.1) mmol/L Carbon Dioxide (22-30) mmol/L BUN (9-20) mg/dL Creatinine (0.66-1.25) mg/dL Glucose (74-99) mg/dL POC Glucose (mg/dL) 125 H (75-99) mg/dL Calcium (8.4-10.2) mg/dL Total Bilirubin (0.2-1.3) mg/dL AST (17-59) U/L ALT (4-49) U/L Alkaline Phosphatase (38-126) U/L Total Protein (6.3-8.2) g/dL Albumin (3.5-5.0) g/dL Microbiology - Last 24 Hours (Table) 03/06/20 23:49 Gram Stain - Preliminary Sputum Sputum Culture - Preliminary 03/05/20 11:27 Blood Culture - Preliminary Blood No Growth after 48 hours 03/05/20 10:55 Blood Culture - Preliminary Blood No Growth after 48 hours 03/01/20 09:10 Blood Culture - Final Blood No Growth after 144 hours 03/06/20 08:45 Blood Culture - Preliminary Blood No Growth after 24 hours Assessment and Plan (1) Paroxysmal atrial fibrillation Current Visit: Yes Status: Acute Code(s): I48.0 - PAROXYSMAL ATRIAL FIBRILLATION SNOMED Code(s): 340074080 (2) History of complete AV block Current Visit: Yes Status: Acute Code(s): Z86.79 - PERSONAL HISTORY OF OTHER DISEASES OF THE CIRCULATORY SYSTEM SNOMED Code(s): 221336906703400 (3) Ruptured spleen Current Visit: Yes Status: Acute Code(s): S36.09XA - OTHER INJURY OF SPLEEN, INITIAL ENCOUNTER SNOMED Code(s): 302334858 (4) Traumatic fracture of ribs of left side with pneumothorax Current Visit: Yes Status: Acute Code(s): S22.42XA - MULTIPLE FRACTURES OF RIBS, LEFT SIDE, INIT FOR CLOS FX; S27.0XXA - TRAUMATIC PNEUMOTHORAX, INITIAL ENCOUNTER SNOMED Code(s): 2558404 Plan: Continue current medical therapy. Amiodarone to be continued. We will follow
[2020-03-08] MEDS: HALOPERIDOL LACTATE 5 MG/ML 1 ML VIAL IVP PRN ×3 (09:46→23:24)
[2020-03-08] MEDS: MORPHINE ORAL SOLN 10 MG/5 ML CUP PO SCH ×3 (09:49→23:24)
[2020-03-08] MEDS: SODIUM BICARBONATE TAB 650 MG TAB PO SCH ×3 (09:50→20:46)
[2020-03-08] MEDS: THIAMINE 100 MG TAB PO SCH (09:50)
[2020-03-08] MEDS: AMIODARONE 200 MG TAB PO SCH ×2 (09:50→20:46)
[2020-03-08] MEDS: QUEtiapine 100 MG TAB PO SCH ×2 (09:51→20:46)
--- NOTE | 2020-03-08 10:31 | P.PN ---
Subjective Progress Note Date: 03/08/20 This is a 69-year-old male patient who was working on his gutters when he fell off a 15 foot ladder. This was unwitnessed. He end up calling his who in turn called EMS and the patient was brought in to the emergency department. Upon arrival, the patient was hypotensive and he was in shock. The patient initial chest x-ray showed several left-sided fractures and small amount of subcutaneous air in addition to a left-sided pneumothorax. The x-ray of the pelvis showed no evidence of any fracture or dislocation. The CAT scan of the brain showed age-related atrophy and chronic small vessel ischemic changes without any acute intracranial process. CAT scan of cervical spine showed no acute abnormalities. On and has Been of the cervical spine was done and the bone and soft tissue windows showed no acute abnormalities. There was no evidence of any fracture. Along with multiple left-sided rib fractures third extending to the seventh rib. There was also spending the sedation with estima daxa grade 3 injury the patient. The patient's hemoglobin dropped to 10.5. The patient received a total of 2 L of IV fluid and 40 minutes of packed RBC. Morning hemoglobin today is At 13.4. The patient was taken to the operating room yesterday. The patient underwent a left-sided chest tube insertion. The patient also had splenectomy done and following that the patient was kept intubated on a mechanical ventilator and he was transferred to the intensive care unit. Note that the patient takes morphine outpatient basis and he has chronic pain and chronic narcotic requirements and on outpatient basis he takes morphine sulfate in the form of MS Contin 50 mg every 12 hours. Overnight, the patient was intubated on mechanical ventilator. He was sedated with a combination of propofol and he was also placed on morphine drip after being given several boluses control his pain. This morning, Profore is running at 70 mg per KG per minute. Morphine is running at 8 mg an hour. The patient is on normal saline at rate of 85 mL an hour. The patient has a left sided chest tube. Total amount of output is in order 110 mL of serosanguineous material without evidence of any air leak. The ventilator setting shows an assist- control mode rate of 20 with a tidal volume of 500 and FiO2 of 40% with a PEEP of 5. The patient's FiO2 is down to 40% overnight. The morning blood gases showed a pH of 7.4 with a pCO2 of 37 and pO2 of 121. The chest x-ray from this morning shows that the patient has an indwelling left-sided chest tube without any signs or pneumothorax. There is also a basilar pleural-based opacity along with multiple left-sided rib fractures and ET tube is in a good location. He is at approximately slightly swollen probably related to an infiltrated IV. He did not require any pressors. He remains hemodynamically stable. Lactic acid remains slightly elevated at 2.9 On 03/04/2020, the patient is being seen for a follow-up. The patient this morning is sedated with propofol at 50 mg per KG per minute. The patient is posterior Tibial Insertion. He Has a Bivona Tracheostomy Tube in Place. The Patient Is on a Mechanical Ventilator on Assist Control Mode at the Rate of 20 with a Tidal Volume of 500 and FiO2 of 50% with a PEEP of 10. The Blood Gases from Today Showed a pH of 7.33 with a pCO2 of 31 and pO2 of 140 and this was on FiO2 of 50%. Chest X-Ray Still Showing Bilateral Pulmonary Infiltrates That Are Rather Diffuse. The Previous Bronchoscopy and the bronchioloalveolar lavage showed no microbial growth. Prior to that a sputum sample that was done on 02/27/2020 showed Selina albicans and a sputum sample from 02/22/2020 showed Selina albicans and Selina Krusei. The patient was treated with Eraxis and he completed the course of antibiotics. He was also on IV Zosyn since admission. Antibiotics were discontinued and the patient developed C. diff colitis that was diagnosed on 03/02/2020. He was having significant diarrhea which essentially slowed down as the patient was started on oral vancomycin to 50 mg orally every 6 hours. The abdominal wound is dry clean and intact. No abdominal distention. Urine output is diminished and the patient is producing somewhere between 10-20 mL an hour of urine output. His any significant fluid overload including significant edema in all 4 extremities and scrotal edema. There is also some a bdominal wall edema. Surgical wound site is dry clean and intact. There is no signs of any wound infection. The patient is tolerating tube feeds and he is on vital high protein at the rate of 30 mL an hour. LFTs are on the rise. The creatinine is on the resident's currently up to 4.4 on the sodium level is down to 129 and a potassium level is at 5.7. This was discussed with nephrology and the patient is going to initiate hemodialysis today. Mental status is not appropriate still. As part of further investigation, the patient underwent another CAT scan of the brain on 02/27/2020 this was negative for any acute abnormalities and the patient had some new partial investigation of the shivani ateral mastoid air cells. A lumbar puncture was also done and the patient was found to have CSF protein of 50, no nucleated white cells, 17 RBCs and glucose was 93. Cultures were negative. On 03/05/2020, the patient is being seen in follow-up. Mother the patient was started on hemodialysis yesterday as the patient was having significant amount of fluid overload and the potassium was in the rise. Just about while going on dialysis, the patient developed heart block and this was a high-grade AV block with hemodynamic instability and hypotension. Immediately, the patient was given calcium chloride and sodium bicarb pushes. His condition was stabilized. He was started on pressors and following that his cardiac rhythm normalizes back to normal sinus rhythm. He underwent hemodialysis yesterday with ultrafiltration and total of 3 L of fluid was removed. Nevertheless, the patient continues to be significant fluid overload. This morning he remains on propofol at 50 mg per KG per minute. He is on levo fed at 0.03 g per KG per minute. He is on normal saline at 50 mL an hour. He remains on a mechanical ventilator. Earlier this morning, chest x-ray was done that showed improvement by the pulmonary infiltrates. The patient had a assist-control mode of ventilation at the rate of 30 with a tidal volume of 550 and FiO2 of 50% with a PEEP of 10. The blood gas showed a pH of 7.44 with episodes of 28 and pO2 148. The patient is making minimal amount of urine output. Hemoglobin this morning was at 6.5 without evidence of any GI bleed and the patient was given a unit of packed RBC. He is receiving Nepro as enteral feeding for nutritional support. Abdomen is slightly distended. The patient has no significant residuals and is producing adequate amount of bowel movement activity. His white cell count still elevated at 42 related to C. diff colitis. Abdominal wound is dry clean and intact. Less of the cultures were all negative for now. 03/06/20202019, the patient is being seen for a follow-up in the intensive care unit. I elected discussion with the patient's family. I met the daughters and also did a conference call with one of the daughters and we discussed the patient's condition at length and I updated them on his condition. Upon family's request, I initiated the transfer to [facility]. I had a discussion with Dr. Caraballo, trauma surgeon at [facility] who so no need for this patient to be transferred as the medical management that we have offered to this patient has been optimal and up to standard. In summary, today's evaluation, the patient is on a low dose of propofol running between 15 and 30 mg per KG per minute. He grimaces to painful stimulation. He is not following commands. He was given another session of dialysis this morning and the patient's blood pressure slightly dropped during hemodialysis and he is being supported with norepinephrine infusion for blood pressure support. The goal is to remove around 3 L of fluid in addition to hemodialysis. The patient is currently on assist control mode of ventilation at the tidal volume of 500, FiO2 of 40% with a PEEP of 5 and a rate of 30. The blood gases showed a pH of 7.45 with a pCO2 of 31 and pO2 of 84. Chest x-ray still unchanged compared to yesterday with bilateral pulmonary infiltrates. Take estimated to is in a good location and the patient has no significant air leaks. LFTs are in the decline as the patient has been recovering from a shock liver. Urine output is minimal and the patient is undergoing hemodialysis. Normal saline running at 20 mL an hour and the patient on Nepro at the rate of 30 mL an hour. Creatinine is up to 4.2. I'm a bit concerned of the ongoing elevation of the white cell. I initially attributed this to C. diff colitis. The patient was placed on oral vancomycin. Nevertheless, the patient continues to have elevated. Discussed the case with the general surgery. I'm going to obtain a CAT scan of the abdomen and pelvis. I'm also going to obtain a set of blood cultures. The patient does have some ongoing bandemia which in the order of 31%. Note that he is tolerating his enteral feeding for nutritional support. He is on oral vancomycin to 50 mg by mouth every 6 hours. He is cardiac rhythm is atrial fibrillation. Note that back and forth is going into episodes of atrial fibrillation. For instance, yesterday with sinus. This morning he is in atrial fibrillation with a controlled rate. No anticoagulants have been utilized. He is on Lovenox 30 mg subcu every 24 hours. This is being administered for DVT prophylaxis. 03/07/2020, I'm seeing this patient for a follow-up. On today's evaluation, the patient is sedated with Precedex. He gradually arouses while off Precedex. Nevertheless, he has not followed any commands.. He gets a bit restless and agitated and his blood pressure goes up and based on that we have to make titration on the Precedex infusion. Earlier this morning he was on 0.7 g per KG per minute. He is on mechanical ventilator. He essentially on the same mode of respirator on assist control mode at the rate of 30 with a tidal volume of 500 and FiO2 of 40% with a PEEP of 8. Morning blood gases showed a pH of 7.46 with a pCO2 of 30 and pO2 of 88. The patient essentially riding the mechanical ventilator and based on that the necessity ventilator changes were done and dropped a respiratory rate down to 22 and I dropped a PEEP down to 6. Chest x- ray is unchanged. The there was concern of his underlying colitis knowing that his white cell count was still elevated. The patient underwent a CAT scan of the abdomen and pelvis yesterday and the CAT scan showed some increased abdominal ascites, wall thickening of the left colon and rectosigmoid colon which is consistent with underlying colitis. He remains on oral vancomycin 5 mg 4 times a day. He is also on IV Flagyl for now and this was admitted by infectious disease. White cell count elevated at 50. The patient is afebrile. The patient is tolerating his enteral feeding. He did have a bowel movement yesterday. No diarrhea. Surgical wound site is dry clean and intact and the hemoglobin stable at 7.1. His bands are down to 8%. The patient will not have dialysis today. His BUN is 83 with a creatinine of 4.0. Rest of the electrodes are stable. Shock liver is improving and the AST is down to 70 for ALT is down to 377 and a total protein is at 4.5. Alkaline phosphatase is 259. He continues to have edema in all 4 extremities. He had [id number] dialysis 3 days. The pro-calcitonin is elevated probably related to his underlying C. diff colitis. Blood cultures of been all negative. 03/08/2020 and seeing the patient for a follow-up. The patient has stayed on Precedex throughout the day yesterday and this morning he remains on Precedex at 0.7 g per KG per minute. Nevertheless, early in the morning hours, the patient became quite restless. Patient received a total of 4 L of morphine and 2 mg of Haldol. I saw the patient in morning. The patient was an assist-control mode of ventilation. I switched him to a VC plus mode at a tidal volume of 500 with a rate of 22 and I kept the PEEP at 4 with an FiO2 of 40%. The patient seemed to be much more relaxed on this current mode of ventilation. He was started on hemodialysis. His heart rate is in between atrial fibrillation normal sinus rhythm. Nevertheless, the patient has not required any Pressors while on hemodialysis. The patient opens up his eyes. He looks around. He does not follow any commands. At times he gets a bit restless and tachypneic. I noted that the patient's serum bicarbonate of 19. I offered some additional bicarb to improved underlying metabolic acidosis. My concern was to improve the patient's overall respiratory status. The patient Had a chest x-ray that was quite stable compared to yesterday without any major interval change. Tracheostomy tube is in a good location. The blood gas showed a pH of 7.41 with a pCO2 of 32 and pO2 of 102. The white cell count is on the decline as the patient is on a combination of IV Flagyl and oral vancomycin. Focused on was quite elevated due to C. diff colitis. No abdominal distention. Still having significant amount of third spacing and edema in the patient's overall goal is to ultrafiltrate at least 3 L on today's hemodialysis session. He has a triple-lumen catheter in his left groin and Artline his left groin. His dialysis cath is present in the right groin. No fever. No chills. No other significant events overnight. Objective - Vital Signs Vital signs: Vital Signs Temp 99.5 F 03/08/20 08:00 Pulse 95 03/08/20 08:00 Resp 22 03/08/20 08:00 BP 132/65 03/06/20 14:00 Pulse Ox 96 03/08/20 08:00 Intake & Output 03/07/20 03/08/20 03/08/20 18:59 06:59 18:59 Intake Total 716 492.445 120.455 Output Total 160 325 55 Balance 556 167.445 65.455 Weight 101.7 kg Intake: IV 156 146 16 Pressure bag 36 36 6 Sodium Chloride 0.9% 1, 10 000 ml @ 20 mls/hr IV . Q24H BETTINA Rx#:[id number] metroNIDAZOLE-NS PMX 500 120 110 mg In Saline 1 100ml.bag @ 100 mls/hr IVPB Q8HR BETTINA Rx#:[id number] Intake, IV Titration 200 196.445 74.455 Amount Dexmedetomidine/0.9% NaCl 196.445 74.455 (Pmx) 400 mcg In Empty Bag 1 bag @ Titrate IV . Q0M BETTINA Rx#:[id number] metroNIDAZOLE-NS PMX 500 200 mg In Saline 1 100ml.bag @ 100 mls/hr IVPB Q8HR BETTINA Rx#:[id number] Tube Feeding 360 150 30 Output: Urine 160 325 55 Other: Voiding Method Indwelling Catheter Indwelling Catheter Indwelling Catheter ABP, PAP, CO, CI - Last Documented Arterial Blood Pressure 138/55 - Exam Gen. appearance the patient is currently on Precedex. The patient opens eyes sp ontaneously. At times he grimaces. At times he becomes tachypneic. He is not following any commands yet.. The patient has NG tube in place. The patient also has a tracheostomy tube in place which is a Bivona tracheostomy tube. No evidence of any air leak around the tube. This morning the patient is adequately sedated with propofol. He is calm and comfortable.. The patient grimaces to painful stimulation. Head exam was generally normal. There was no scleral icterus or corneal arcus. Mucous membranes were moist. Neck was supple and without jugular venous distension, thyromegaly, or carotid bruits. Carotids were easily palpable bilaterally. There was no adenopathy. The patient has a tracheostomy tube in place. Lungs sounds are diminished bilaterally and the patient is a left sided chest tube in place. Chest tube is in a good location. Breath sounds are slightly diminished in left lung base compared to the right. Cardiac exam revealed the PMI to be normally situated and sized. The rhythm was irregular and no extrasystoles were noted during several minutes of auscultation. The patient is currently in atrial fibrillation. He is back and forth between atrial fibrillation and normal sinus rhythm. The first and second heart sounds were normal and physiologic splitting of the second heart sound was noted. There were no murmurs, rubs, clicks, or gallops. Abdomen is soft and nontender. The patient has a mid abdominal scar which is dry clean and intact. A surgical scar/wound is dry clean and intact. No direct distention. No rebound distention. No guarding. Bowel sounds are hypoactive at this point in time. Examination of the extremities revealed easily palpable radial, femoral and pedal pulses. There was no cyanosis, clubbing and there is development of sign ificant edema in all 4 extremities and the patient also has scrotal edema. He continues to have significant amount of edema in all 4 extremities. Examination of the skin revealed no evidence of significant rashes, suspicious appearing nevi or other concerning lesions. Abdominal wound site is dry clean and intact. Neurologic the patient is sedated yet he seems to be arousable once off the sedation. He is opening up his eyes spontaneously. He is grimacing. He is responding to painful stimulation. Asynchronous with a mechanical ventilator. The patient does not follow any commands. He grimaces to painful stimulation.. Currently he is well sedated. Pupils are equal and reactive to light. No signs of any head trauma. No nystagmus. No clonus. No Babinski. - Labs CBC & Chem 7: 03/08/20 04:00 03/08/20 04:00 Labs: Abnormal Lab Results - Last 24 Hours (Table) 03/07/20 03/07/20 03/07/20 Range/Units 13:18 16:52 23:47 WBC (3.8-10.6) k/uL RBC (4.30-5.90) m/uL Hgb (13.0-17.5) gm/dL Hct (39.0-53.0) % MCHC (31.0-37.0) g/dL RDW (11.5-15.5) % Neutrophils # (Manual) (1.3-7.7) k/uL Monocytes # (Manual) (0-1.0) k/uL Eosinophils # (Manual) (0-0.7) k/uL Metamyelocytes # (Man) (0) k/uL Myelocytes # (Manual) (0) k/uL Nucleated RBCs (0-0) /100 WBC ABG pCO2 (35-45) mmHg ABG HCO3 (21-25) mmol/L ABG O2 Saturation (94-97) % Sodium (137-145) mmol/L Potassium (3.5-5.1) mmol/L Carbon Dioxide (22-30) mmol/L BUN (9-20) mg/dL Creatinine (0.66-1.25) mg/dL Glucose (74-99) mg/dL POC Glucose (mg/dL) 111 H 132 H 125 H (75-99) mg/dL Calcium (8.4-10.2) mg/dL Total Bilirubin (0.2-1.3) mg/dL AST (17-59) U/L ALT (4-49) U/L Alkaline Phosphatase (38-126) U/L Total Protein (6.3-8.2) g/dL Albumin (3.5-5.0) g/dL 03/08/20 03/08/20 03/08/20 Range/Units 04:00 04:00 04:14 WBC 26.0 H (3.8-10.6) k/uL RBC 2.56 L (4.30-5.90) m/uL Hgb 7.0 L (13.0-17.5) gm/dL Hct 23.0 L (39.0-53.0) % MCHC 30.4 L (31.0-37.0) g/dL RDW 19.3 H (11.5-15.5) % Neutrophils # (Manual) 17.90 H (1.3-7.7) k/uL Monocytes # (Manual) 2.08 H (0-1.0) k/uL Eosinophils # (Manual) 1.82 H (0-0.7) k/uL Metamyelocytes # (Man) 2.60 H (0) k/uL Myelocytes # (Manual) 0.52 H (0) k/uL Nucleated RBCs 72 H (0-0) /100 WBC ABG pCO2 32 L (35-45) mmHg ABG HCO3 20 L (21-25) mmol/L ABG O2 Saturation 97.4 H (94-97) % Sodium 132 L (137-145) mmol/L Potassium 5.2 H (3.5-5.1) mmol/L Carbon Dioxide 19 L (22-30) mmol/L BUN 108 H* (9-20) mg/dL Creatinine 4.95 H (0.66-1.25) mg/dL Glucose 103 H (74-99) mg/dL POC Glucose (mg/dL) (75-99) mg/dL Calcium 7.8 L (8.4-10.2) mg/dL Total Bilirubin 1.7 H (0.2-1.3) mg/dL AST 310 H (17-59) U/L ALT 260 H (4-49) U/L Alkaline Phosphatase 299 H (38-126) U/L Total Protein 4.5 L (6.3-8.2) g/dL Albumin 2.0 L (3.5-5.0) g/dL 03/08/20 Range/Units 06:11 WBC (3.8-10.6) k/uL RBC (4.30-5.90) m/uL Hgb (13.0-17.5) gm/dL Hct (39.0-53.0) % MCHC (31.0-37.0) g/dL RDW (11.5-15.5) % Neutrophils # (Manual) (1.3-7.7) k/uL Monocytes # (Manual) (0-1.0) k/uL Eosinophils # (Manual) (0-0.7) k/uL Metamyelocytes # (Man) (0) k/uL Myelocytes # (Manual) (0) k/uL Nucleated RBCs (0-0) /100 WBC ABG pCO2 (35-45) mmHg ABG HCO3 (21-25) mmol/L ABG O2 Saturation (94-97) % Sodium (137-145) mmol/L Potassium (3.5-5.1) mmol/L Carbon Dioxide (22-30) mmol/L BUN (9-20) mg/dL Creatinine (0.66-1.25) mg/dL Glucose (74-99) mg/dL POC Glucose (mg/dL) 125 H (75-99) mg/dL Calcium (8.4-10.2) mg/dL Total Bilirubin (0.2-1.3) mg/dL AST (17-59) U/L ALT (4-49) U/L Alkaline Phosphatase (38-126) U/L Total Protein (6.3-8.2) g/dL Albumin (3.5-5.0) g/dL Microbiology - Last 24 Hours (Table) 03/06/20 23:49 Gram Stain - Preliminary Sputum Sputum Culture - Preliminary 03/05/20 11:27 Blood Culture - Preliminary Blood No Growth after 48 hours 03/05/20 10:55 Blood Culture - Preliminary Blood No Growth after 48 hours 03/01/20 09:10 Blood Culture - Final Blood No Growth after 144 hours 03/06/20 08:45 Blood Culture - Preliminary Blood No Growth after 24 hours Assessment and Plan Plan: 1 fall off a ladder with significant trauma to the chest and abdomen. The patient had sustained left-sided rib fractures, splenic rupture postsplenectomy, and a left-sided pneumothorax. 2 traumatic grade 3 laceration of the spleen along with hemoperitoneum and the patient is post splenectomy and the patient is postop day and the patient had the surgery on 02/17/2020. 3 traumatic left-sided rib fractures third drip through seventh rib along with a 30% left-sided pneumothorax post chest tube insertion with adequate expansion of the left lung. The left-sided chest tube was removed. 4 shock at the time of admission, essentially due to hemorrhagic shock, recovered 5 Acute kidney injury with massive fluid overload and the patient was started on hemodialysis. The patient is undergoing daily dialysis and he underwent dialysis 3 days in a row. The patient did not have dialysis yesterday. Another session is being done today with a goal of 3-4 L of ultrafiltration. She does have some mild component of metabolic acidosis with a serum bicarbonate 19. The patient will be given additional bicarb 6 acute ventilator-dependent respiratory failure, hypoxic, secondary to above. 7 chronic neck pain and the patient had been taken MS Contin on outpatient basis 15 mg twice a day 8 coronary artery disease with a previous bypass surgery 9 hyperlipidemia 10 BPH 11 delirium tremens as the patient is suspected alcoholism 12 paroxysmal atrial fibrillation and the patient is currently in A. fib on oral amiodarone. No anticoagulants. T 13 leukocytosis, secondary to C. diff colitis, and the white cell count is improving for today. This concerning for bowel ischemia specially the patient has positive stool for C. diff. the patient underwent a CAT scan of the abdomen and pelvis. It showed nonspecific colitis of the rectosigmoid and descending colon. White cell count remains elevated. Bandemia is improved. He is on a combination of vancomycin oral and IV Flagyl. The patient is tolerating enteral feeding for nutritional support. 14 C. diff colitis currently on oral vancomycin and IV Flagyl., white cell count remains elevated . The patient is still having limited diarrhea. The patient on oral vancomycin and Flagyl. 15 anemia, multifactorial, chronic, hemoglobin is stable 16, acute hepatic injury, shock liver with LFTs are essentially improving for now. No significant coagulopathy. Plan Continue ventilator support Patient was switched to VC plus mode Keep the patient Precedex Utilize Seroquel 100 mg twice and utilize Haldol as needed for agitation Hemodialysis by nephrology. The goal is to ultrafiltrate this patient by around 3-4 L CAT scan of the abdomen and pelvis was noted Monitor LFTs Continue enteral feeding for nutritional support Continue oral vancomycin regarding C. diff colitis and the patient is on Flagyl Repeat pro calcitonin level Postpone the PEG tube insertion We'll continue to follow. The patient is critically ill, and the patient will monitored very closely in the ICU. This is a critically care evaluation that was on a more than 30 minutes. Time with Patient: Greater than 30
--- NOTE | 2020-03-08 11:11 | PN ---
PROGRESS NOTE DATE OF SERVICE: 03/07/2020 REASON FOR FOLLOWUP: 1. C difficile colitis. 2. Elevated white count. INTERVAL HISTORY: The patient is currently afebrile. No fever has been for the last 24 hours. Last temperature was 100.3 on 03/05. Patient is hemodynamically stable, not on pressor support. MENTAL HISTORY: Tube feeds no worse or diarrhea no change reported by the nursing staff. FiO2 is currently at 40%. PHYSICAL EXAMINATION: Blood pressure 142/59, pulse 89, temperature 98, she is 96% on 40% FiO2. General description is an elderly male, lying in bed in no distress. RESPIRATORY SYSTEM: Unlabored breathing, decreased breath sounds at bases, no wheeze. HEART: S1, S2. Regular rate and rhythm. ABDOMEN: No softness. LABS: Hemoglobin 7.1, white count 15.6 with a BUN of 53, creatinine 4.08. Blood cultures , sputum 03/06 have been negative so far. Urine was requested yesterday, was not significantly positive. DIAGNOSTIC IMPRESSION AND PLAN: Patient with significant elevated white count which is likely multifactorial, possible part of these reactive ulcer, no component C difficile colitis for the patient is currently covered with Flagyl as well as vancomycin. White count slightly decreased and culture has been negative so far. Keep the patient on Flagyl, vanc and monitor clinical course closely. at the bedside, questions were answered. MMODL / IJN: [id number] /
[2020-03-08 11:30] LABS: Glucose,Whole Blood 115 mg/dL (75-99)
[2020-03-08] MEDS: SODIUM CHLORIDE 0.9% 1,000 ML IV SCH (11:47)
--- NOTE | 2020-03-08 13:24 | P.PN ---
Subjective Progress Note Date: 03/08/20 CHIEF COMPLAINT: Fall with Trauma HISTORY OF PRESENT ILLNESS: Patient seen with Dr. Ivy. This is a 69-year-old male who fell 15 feet off the top of the ladder. Patient's CAT scan was performed showing a large left pneumothorax as well as multiple rib fractures and hemoperitoneum and a ruptured spleen. Patient is status post splenectomy. Patient is status post tracheostomy placement due to his res piratory failure and unable to wean from vent. Patient remains in ICU and on vent. He is on Precedex. He is scheduled for hemodialysis again today. PEG tube placement currently on hold. White count has come down from 50.6 down to 26, hemoglobin 7.0 creatinine 4.95. Patient is afebrile. PHYSICAL EXAM: VITAL SIGNS: Reviewed. GENERAL: Well-developed in no acute distress. HEENT: No sclera icterus. Extraocular movements grossly intact. Moist buccal mucosa. Head is atraumatic, normocephalic. Trach site clean dry and intact ABDOMEN: Soft. Nondistended. Incision site clean dry and intact NEUROLOGIC: Patient is sedated ASSESSMENT: 1. 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 2. Status post tracheostomy for respiratory failure 3. Status post fall off a ladder with, to chest and abdomen 4. Left-sided pneumothorax has chest tube in place 5. Multiple left-sided rib fractures 6. Alcohol intoxication 7. Acute hypoxic ventilatory dependent respiratory failure. 8. Chronic pain medication 9. Atrial fibrillation with rapid ventricular response 10. C. diff colitis 11. Acute kidney injury with creatinine 4.04 today. Followed closely by nephr ology. They've ordered dialysis catheter to be placed and for patient to have hemodialysis today and tomorrow 12. Acute blood loss anemia status post blood transfusion PLAN: -Hold on PEG tube placement today. We'll reevaluate patient for possible PEG tube placement in a couple a days. -Continue tube feedings -Continue ICU management -Continue oral vancomycin -lovenox for DVT prophylaxis Physician Networking Specialist note has been reviewed by physician. Signing provider agrees with the documented findings, assessment, and plan of care. Objective - Vital Signs Vital signs: Vital Signs Temp 99.4 F 03/08/20 12:49 Pulse 115 H 03/08/20 12:49 Resp 28 H 03/08/20 12:49 BP 131/59 03/08/20 12:49 Pulse Ox 97 03/08/20 12:00 Intake & Output 03/07/20 03/08/20 03/08/20 18:59 06:59 18:59 Intake Total 716 492.445 326.916 Output Total 009 433 5040 Balance 556 167.445 -3293.084 Weight 101.7 kg 101.7 kg Intake: IV 156 146 55 Pressure bag 36 36 15 Sodium Chloride 0.9% 1, 40 000 ml @ 20 mls/hr IV . Q24H BETTINA Rx#:[id number] metroNIDAZOLE-NS PMX 500 120 110 mg In Saline 1 100ml.bag @ 100 mls/hr IVPB Q8HR BETTINA Rx#:[id number] Intake, IV Titration 200 196.445 121.916 Amount Dexmedetomidine/0.9% NaCl 196.445 121.916 (Pmx) 400 mcg In Empty Bag 1 bag @ Titrate IV . Q0M BETTINA Rx#:[id number] metroNIDAZOLE-NS PMX 500 200 mg In Saline 1 100ml.bag @ 100 mls/hr IVPB Q8HR BETTINA Rx#:[id number] Tube Feeding 360 150 150 Output: Urine 160 325 120 Hemodialysis 3500 Other: Voiding Method Indwelling Catheter Indwelling Catheter Indwelling Catheter ABP, PAP, CO, CI - Last Documented Arterial Blood Pressure 122/54 - Labs CBC & Chem 7: 03/08/20 04:00 03/08/20 04:00 Labs: Abnormal Lab Results - Last 24 Hours (Table) 03/07/20 03/07/20 03/07/20 Range/Units 13:18 16:52 23:47 WBC (3.8-10.6) k/uL RBC (4.30-5.90) m/uL Hgb (13.0-17.5) gm/dL Hct (39.0-53.0) % MCHC (31.0-37.0) g/dL RDW (11.5-15.5) % Neutrophils # (Manual) (1.3-7.7) k/uL Monocytes # (Manual) (0-1.0) k/uL Eosinophils # (Manual) (0-0.7) k/uL Metamyelocytes # (Man) (0) k/uL Myelocytes # (Manual) (0) k/uL Nucleated RBCs (0-0) /100 WBC ABG pCO2 (35-45) mmHg ABG HCO3 (21-25) mmol/L ABG O2 Saturation (94-97) % Sodium (137-145) mmol/L Potassium (3.5-5.1) mmol/L Carbon Dioxide (22-30) mmol/L BUN (9-20) mg/dL Creatinine (0.66-1.25) mg/dL Glucose (74-99) mg/dL POC Glucose (mg/dL) 111 H 132 H 125 H (75-99) mg/dL Calcium (8.4-10.2) mg/dL Total Bilirubin (0.2-1.3) mg/dL AST (17-59) U/L ALT (4-49) U/L Alkaline Phosphatase (38-126) U/L Total Protein (6.3-8.2) g/dL Albumin (3.5-5.0) g/dL 03/08/20 03/08/20 03/08/20 Range/Units 04:00 04:00 04:14 WBC 26.0 H (3.8-10.6) k/uL RBC 2.56 L (4.30-5.90) m/uL Hgb 7.0 L (13.0-17.5) gm/dL Hct 23.0 L (39.0-53.0) % MCHC 30.4 L (31.0-37.0) g/dL RDW 19.3 H (11.5-15.5) % Neutrophils # (Manual) 17.90 H (1.3-7.7) k/uL Monocytes # (Manual) 2.08 H (0-1.0) k/uL Eosinophils # (Manual) 1.82 H (0-0.7) k/uL Metamyelocytes # (Man) 2.60 H (0) k/uL Myelocytes # (Manual) 0.52 H (0) k/uL Nucleated RBCs 72 H (0-0) /100 WBC ABG pCO2 32 L (35-45) mmHg ABG HCO3 20 L (21-25) mmol/L ABG O2 Saturation 97.4 H (94-97) % Sodium 132 L (137-145) mmol/L Potassium 5.2 H (3.5-5.1) mmol/L Carbon Dioxide 19 L (22-30) mmol/L BUN 108 H* (9-20) mg/dL Creatinine 4.95 H (0.66-1.25) mg/dL Glucose 103 H (74-99) mg/dL POC Glucose (mg/dL) (75-99) mg/dL Calcium 7.8 L (8.4-10.2) mg/dL Total Bilirubin 1.7 H (0.2-1.3) mg/dL AST 310 H (17-59) U/L ALT 260 H (4-49) U/L Alkaline Phosphatase 299 H (38-126) U/L Total Protein 4.5 L (6.3-8.2) g/dL Albumin 2.0 L (3.5-5.0) g/dL 03/08/20 03/08/20 Range/Units 06:11 11:28 WBC (3.8-10.6) k/uL RBC (4.30-5.90) m/uL Hgb (13.0-17.5) gm/dL Hct (39.0-53.0) % MCHC (31.0-37.0) g/dL RDW (11.5-15.5) % Neutrophils # (Manual) (1.3-7.7) k/uL Monocytes # (Manual) (0-1.0) k/uL Eosinophils # (Manual) (0-0.7) k/uL Metamyelocytes # (Man) (0) k/uL Myelocytes # (Manual) (0) k/uL Nucleated RBCs (0-0) /100 WBC ABG pCO2 (35-45) mmHg ABG HCO3 (21-25) mmol/L ABG O2 Saturation (94-97) % Sodium (137-145) mmol/L Potassium (3.5-5.1) mmol/L Carbon Dioxide (22-30) mmol/L BUN (9-20) mg/dL Creatinine (0.66-1.25) mg/dL Glucose (74-99) mg/dL POC Glucose (mg/dL) 125 H 115 H (75-99) mg/dL Calcium (8.4-10.2) mg/dL Total Bilirubin (0.2-1.3) mg/dL AST (17-59) U/L ALT (4-49) U/L Alkaline Phosphatase (38-126) U/L Total Protein (6.3-8.2) g/dL Albumin (3.5-5.0) g/dL Microbiology - Last 24 Hours (Table) 03/06/20 23:49 Gram Stain - Preliminary Sputum Sputum Culture - Preliminary Yeast species 02/29/20 11:00 Fungal Culture - Preliminary Bronchial Washings - Right 03/06/20 08:45 Blood Culture - Preliminary Blood No Growth after 48 hours 03/05/20 11:27 Blood Culture - Preliminary Blood No Growth after 48 hours 03/05/20 10:55 Blood Culture - Preliminary Blood No Growth after 48 hours 03/01/20 09:10 Blood Culture - Final Blood No Growth after 144 hours
--- NOTE | 2020-03-08 13:32 | PN ---
PROGRESS NOTE Patient is seen for followup for acute kidney injury. He remains hemodialysis dependent. Urine output is at about 20-25 mL an hour. Currently patient is seen on hemodialysis. He is tolerating his treatment well. He is not on any pressors. The patient remains on the vent. Blood pressure was 122/54, heart rate 97 per minute, patient is afebrile. Examination of the heart S1, S2. Examination of lungs decreased breath sounds at the bases. Bilateral breath sounds are heard. Abdomen is soft and nontender. Exam of lower extremities shows 2+ edema bilaterally. DIRECTOR HARDWARE exam cannot be performed. LAB: Show hemoglobin 7.0. Sodium 132, potassium 5.2, chloride 100, CO2 is 19, BUN 108, serum creatinine 4.95. ASSESSMENT: 1. Acute kidney injury, acute tubular necrosis currently hemodialysis dependent. Patient is maintained on daily treatments mainly for hyperkalemia and volume overload. We will dialyze him again tomorrow. He is tolerating his treatment well. Urine output at about 20-25 mL an hour. 2. Atrial fibrillation with RVR with improved heart rate. 3. Status post fall with pneumothorax, multiple rib fractures, hemoperitoneum and ruptured spleen, status post emergent chest tube placement and splenectomy. 4. Acute blood loss anemia status post packed RBCs transfusion. 5. C diff colitis, maintained on oral vancomycin. 6. Volume overload currently improving. 7. Hyperkalemia improved post dialysis. PLAN: Repeat hemodialysis in a.m. Repeat labs in a.m. Continue to monitor for recovery of renal function. Continue with the Aranesp. MMODL / IJN: [id number] /
--- NOTE | 2020-03-08 14:26 | P.PCN ---
Date of Procedure: 03/08/20 Preoperative Diagnosis: Prolonged ventilator dependent respiratory failure, trauma Postoperative Diagnosis: Prolonged ventilator dependent respiratory failure, trauma Procedure(s) Performed: Arterial line insertion Anesthesia: local Surgeon: Ayanna Royal Estimated Blood Loss (ml): 0 Pathology: other Condition: critical Disposition: ICU Operative Findings: Indication: Hemodynamic monitoring. A time-out was completed verifying correct patient, procedure, site, positioning, and implant(s) or special equipment if applicable. Allens test was performed to ensure adequate perfusion. The patients left wrist was prepped and draped in sterile fashion. 1% Lidocaine was used to anesthetize the area. An 18G Arrow arterial line was introduced into the left radial artery. The catheter was threaded over the guide wire and the needle was removed with appropriate pulsatile blood return. Blood loss was minimal. The catheter was then sutured in place to the skin and a sterile dressing applied. Perfusion to the extremity distal to the point of catheter insertion was checked and found to be adequate. The patient tolerated the procedure well and there were no complications.
--- NOTE | 2020-03-08 14:35 | P.PN ---
Subjective Progress Note Date: 03/08/20 Principal diagnosis: Multiple traumas s/p fall from 15 feet ladder Mr. Nugent is a 70-year-old male with a past medical history of coronary artery disease status post CABG, hyperlipidemia, prostate cancer, chronic neck and back pain, cervical fusion done in 2008 coming in through the emergency department after having a fall from 15 feet ladder. Patient was cleaning gutters fell and brought to the hospital. Patient had multiple left-sided fractures from third to seventh rib and also had splenectomy done for splenic injury. Patient had CAT scan of the brain showing no acute intracranial process and CAT scan of the cervical spine showed no acute abnormalities. His hospital course was complicated - he had chest tubes placed on the left side, he required hemodialysis. Patient had a heart block being treated per cardiology. He also had C. diff positive. Multiple consultants including pulmonary, cardiology, ID, surgery, nephrology, vascular surgery, neurology following the patient. On 03/06/2020 -patient is in the ICU. He is intubated via trach. Patient only grimaces to painful to stimuli. Patient's at the bedside, she states that since being in the hospital patient's neurological status did not improve. He is currently on assist control mode of ventilation. Blood gases show pH of 7.4, pO2 of 84, pCO2 of 31. On reviewing his labs his white count seems to be trending up it is a 53.4 with 31% band neutrophils. Sodium of 133, potassium of 4.3, chloride 99, bicarbonate 22, WN 82, creatinine 4.20. Albumin 2.0. Patient's LFTs trending down today AST of 1477, AST of 533 and alkaline phosphatase of 252. On 03/07/2020 - patient is in the ICU. His is at the bedside. No acute events reported by the nursing staff overnight. This morning patient was given a sedation holiday, after which he became tachypneic and tachycardic and his blood pressure shot up to 200 systolic, later on he was started back on sedation with Precedex infusion. His ABG from this morning showed pH of 7.46, pCO2 of 30, PaO2 of 88 on 40% FiO2. Patient had a CAT scan of the abdomen and pelvis showing increased abdominal ascites and wall thickening of left colon and rectosigmoid colon that is new compared to old exam which is consistent with nonspecific colitis and bilateral lower lobe pulmonary consolidation and atelectasis and pleural fluid unchanged. Patient's labs this morning show white count of history and 50.6, hemoglobin 7.1, platelets 395. On 03/08/2020 - patient is in the ICU. Patient's at the bedside. Patient is intubated and sedated. Overnight no acute events reported by nursing staff. Patient had hemodialysis done today and at around 3.5 L was removed. Patient does not appear to be in acute distress and he is comfortable on the ventilator. Patient had a chest x-ray done today with endotracheal tube in place. He had any ABGs done today showing pH of 7.41, pCO2 of 32 and pO2 of 102 on 40% FiO2. Patient's white count did trend down from 50-25,000 today. Patient has been afebrile for the past 24 hours maintaining his blood pressure without any pressor support. He is being continued on antibiotics in the form of IV Flagyl and by mouth vancomycin. He has NG tube in place. Active Medications Acetaminophen (Tylenol Tab) 650 mg PO Q6HR PRN PRN Reason: Fever and/ or Pain Last Admin: 03/01/20 13:25 Dose: 650 mg Documented by: Albuterol/Ipratropium (Duoneb 0.5 Mg-3 Mg/3 Ml Soln) 3 ml INHALATION RT-Q4H [facility] Last Admin: 03/08/20 10:57 Dose: 3 ml Documented by: Amiodarone HCl (Cordarone) 200 mg PO BID [facility] Last Admin: 03/08/20 09:50 Dose: 200 mg Documented by: Calcium Acetate (Calcium Acetate 667 Mg Tab) 667 mg PO TID-W/MEALS [facility] Last Admin: 03/08/20 11:34 Dose: 667 mg Documented by: Chlorhexidine Gluconate (Chlorhexidine Gluconate 15 Ml Cup) 15 ml MUCOUS MEM BID [facility] Last Admin: 03/08/20 08:05 Dose: 15 ml Documented by: Darbepoetin Telly (Darbepoetin Telly 40 Mcg/0.4 Ml Syringe) 40 mcg SQ Q7D [facility] Last Admin: 03/05/20 15:07 Dose: 40 mcg Documented by: Enoxaparin Sodium (Lovenox) 30 mg SQ DAILY [facility] Last Admin: 03/08/20 09:48 Dose: 30 mg Documented by: Finasteride (Proscar) 5 mg PO HS [facility] Last Admin: 03/07/20 21:37 Dose: 5 mg Documented by: Haloperidol Lactate (Haloperidol Lactate 5 Mg/Ml 1 Ml Vial) 2 mg IVP Q2H PRN PRN Reason: Agitation or Acute Psychosis Last Admin: 03/08/20 09:46 Dose: 2 mg Documented by: Sodium Chloride (Saline 0.9%) 1,000 mls @ 20 mls/hr IV .Q24H [facility] Last Admin: 03/08/20 11:47 Dose: 20 mls/hr Documented by: Norepinephrine Bitartrate 32 (mg/ Sodium Chloride) 250 mls @ 6.759 mls/hr IV .Q24H [facility]; Protocol Last Admin: 03/08/20 04:34 Dose: Not Given Documented by: Lactated Ringer's (Lactated Ringers) 1,000 mls @ 20 mls/hr IV .Q24H [facility] Last Admin: 03/07/20 23:50 Dose: Not Given Documented by: Metronidazole 500 mg/ IV (Solution) 100 mls @ 100 mls/hr IVPB Q8HR [facility] Last Admin: 03/08/20 11:14 Dose: 100 mls/hr Documented by: Dexmedetomidine HCl 400 mcg/ (IV Solution) 100 mls @ 0 mls/hr IV .Q0M [facility]; Protocol Stop: 03/08/20 15:24 Last Titration: 03/08/20 12:37 Dose: 0.5 mcg/kg/hr, 12.713 mls/hr Documented by: Insulin Aspart (Novolog) 0 unit SQ Q6HR [facility]; Protocol Last Admin: 03/08/20 11:29 Dose: Not Given Documented by: Miscellaneous Information (Magnesium Per Protocol) 1 each MISCELLANE DAILY PRN; Protocol PRN Reason: Per Protocol Miscellaneous Information (Potassium Per Protocol) 1 each MISCELLANE DAILY PRN; Protocol PRN Reason: Per Protocol Morphine Sulfate (Morphine Sulfate (Inj)) 2 mg IVP Q2H PRN PRN Reason: Pain/Discomfort Last Admin: 03/08/20 08:05 Dose: 2 mg Documented by: Morphine Sulfate (Morphine Sulfate (Inj)) 4 mg IVP Q2H PRN PRN Reason: Pain Last Admin: 03/08/20 02:09 Dose: 4 mg Documented by: Morphine Sulfate (Morphine Oral Soln 10 Mg/5 Ml Cup) 10 mg PO Q8HR [facility] Last Admin: 03/08/20 09:49 Dose: 10 mg Documented by: Naloxone HCl (Narcan) 0.2 mg IV Q2M PRN PRN Reason: Opioid Reversal Pantoprazole Sodium (Protonix) 40 mg IVP DAILY [facility] Last Admin: 03/08/20 08:05 Dose: 40 mg Documented by: Quetiapine Fumarate (Quetiapine 100 Mg Tab) 100 mg PO BID [facility] Last Admin: 03/08/20 09:51 Dose: 100 mg Documented by: Sodium Bicarbonate (Sodium Bicarbonate Tab) 650 mg PO TID [facility] Last Admin: 03/08/20 09:50 Dose: 650 mg Documented by: Sodium Chloride (Saline Flush) 10 ml IV Q4HR PRN PRN Reason: PICC Line Sodium Chloride (Saline Flush) 10 ml IV WEEKLY [facility] Last Admin: 03/04/20 10:48 Dose: 10 ml Documented by: Sodium Chloride (Saline Flush) 20 ml IV Q4HR PRN PRN Reason: PICC Line Tamsulosin HCl (Flomax) 0.8 mg PO HS [facility] Last Admin: 03/07/20 21:37 Dose: 0.8 mg Documented by: Thiamine HCl (Vitamin B-1) 100 mg PO DAILY [facility] Last Admin: 03/08/20 09:50 Dose: 100 mg Documented by: Vancomycin HCl (Vancomycin Oral Solution 250 Mg/5 Ml Bottle) 500 mg PO Q6HR [facility] Last Admin: 03/08/20 11:34 Dose: 500 mg Documented by: Objective - Vital Signs Vital signs: Vital Signs Temp 99.4 F 03/08/20 12:49 Pulse 103 H 03/08/20 13:00 Resp 10 L 03/08/20 13:00 BP 131/59 03/08/20 12:49 Pulse Ox 97 03/08/20 13:00 Intake & Output 03/07/20 03/08/20 03/08/20 18:59 06:59 18:59 Intake Total 716 492.445 326.916 Output Total 725 363 6661 Balance 556 167.445 -3293.084 Weight 101.7 kg 101.7 kg Intake: IV 156 146 55 Pressure bag 36 36 15 Sodium Chloride 0.9% 1, 40 000 ml @ 20 mls/hr IV . Q24H [facility] Rx#:[id number] metroNIDAZOLE-NS PMX 500 120 110 mg In Saline 1 100ml.bag @ 100 mls/hr IVPB Q8HR [facility] Rx#:[id number] Intake, IV Titration 200 196.445 121.916 Amount Dexmedetomidine/0.9% NaCl 196.445 121.916 (Pmx) 400 mcg In Empty Bag 1 bag @ Titrate IV . Q0M [facility] Rx#:[id number] metroNIDAZOLE-NS PMX 500 200 mg In Saline 1 100ml.bag @ 100 mls/hr IVPB Q8HR [facility] Rx#:[id number] Tube Feeding 360 150 150 Output: Urine 160 325 120 Hemodialysis 3500 Other: Voiding Method Indwelling Catheter Indwelling Catheter Indwelling Catheter ABP, PAP, CO, CI - Last Documented Arterial Blood Pressure 117/55 - Exam - Exam -GENERAL: The patient is intubated and sedated, patient has purposeless movements HEENT: Pupils are round and equally reacting to light CARDIOVASCULAR: S1 and S2 present. No murmurs, rubs, or gallops. PULMONARY: Chest is clear to auscultation, no wheezing or crackles. Left-sided chest tube midline vertical surgical wound is clean and dry and closed ABDOMEN: Soft, nontender, nondistended, normoactive bowel sounds. MUSCULOSKELETAL: No joint swelling or deformity. EXTREMITIES: Pitting edema in all 4 extremities better compared to yesterday. 4 extremities seems to be better compared to yesterday. NEUROLOGICAL: Patient's eyes were open and has purposeless eye movements. Does not follow commands. SKIN: No rashes. no petechiae. - Labs CBC & Chem 7: 03/08/20 04:00 03/08/20 04:00 Labs: Abnormal Lab Results - Last 24 Hours (Table) 03/07/20 03/07/20 03/08/20 Range/Units 16:52 23:47 04:00 WBC 26.0 H (3.8-10.6) k/uL RBC 2.56 L (4.30-5.90) m/uL Hgb 7.0 L (13.0-17.5) gm/dL Hct 23.0 L (39.0-53.0) % MCHC 30.4 L (31.0-37.0) g/dL RDW 19.3 H (11.5-15.5) % Neutrophils # (Manual) 17.90 H (1.3-7.7) k/uL Monocytes # (Manual) 2.08 H (0-1.0) k/uL Eosinophils # (Manual) 1.82 H (0-0.7) k/uL Metamyelocytes # (Man) 2.60 H (0) k/uL Myelocytes # (Manual) 0.52 H (0) k/uL Nucleated RBCs 72 H (0-0) /100 WBC ABG pCO2 (35-45) mmHg ABG HCO3 (21-25) mmol/L ABG O2 Saturation (94-97) % Sodium (137-145) mmol/L Potassium (3.5-5.1) mmol/L Carbon Dioxide (22-30) mmol/L BUN (9-20) mg/dL Creatinine (0.66-1.25) mg/dL Glucose (74-99) mg/dL POC Glucose (mg/dL) 132 H 125 H (75-99) mg/dL Calcium (8.4-10.2) mg/dL Total Bilirubin (0.2-1.3) mg/dL AST (17-59) U/L ALT (4-49) U/L Alkaline Phosphatase (38-126) U/L Total Protein (6.3-8.2) g/dL Albumin (3.5-5.0) g/dL 03/08/20 03/08/20 03/08/20 Range/Units 04:00 04:14 06:11 WBC (3.8-10.6) k/uL RBC (4.30-5.90) m/uL Hgb (13.0-17.5) gm/dL Hct (39.0-53.0) % MCHC (31.0-37.0) g/dL RDW (11.5-15.5) % Neutrophils # (Manual) (1.3-7.7) k/uL Monocytes # (Manual) (0-1.0) k/uL Eosinophils # (Manual) (0-0.7) k/uL Metamyelocytes # (Man) (0) k/uL Myelocytes # (Manual) (0) k/uL Nucleated RBCs (0-0) /100 WBC ABG pCO2 32 L (35-45) mmHg ABG HCO3 20 L (21-25) mmol/L ABG O2 Saturation 97.4 H (94-97) % Sodium 132 L (137-145) mmol/L Potassium 5.2 H (3.5-5.1) mmol/L Carbon Dioxide 19 L (22-30) mmol/L BUN 108 H* (9-20) mg/dL Creatinine 4.95 H (0.66-1.25) mg/dL Glucose 103 H (74-99) mg/dL POC Glucose (mg/dL) 125 H (75-99) mg/dL Calcium 7.8 L (8.4-10.2) mg/dL Total Bilirubin 1.7 H (0.2-1.3) mg/dL AST 310 H (17-59) U/L ALT 260 H (4-49) U/L Alkaline Phosphatase 299 H (38-126) U/L Total Protein 4.5 L (6.3-8.2) g/dL Albumin 2.0 L (3.5-5.0) g/dL 03/08/20 Range/Units 11:28 WBC (3.8-10.6) k/uL RBC (4.30-5.90) m/uL Hgb (13.0-17.5) gm/dL Hct (39.0-53.0) % MCHC (31.0-37.0) g/dL RDW (11.5-15.5) % Neutrophils # (Manual) (1.3-7.7) k/uL Monocytes # (Manual) (0-1.0) k/uL Eosinophils # (Manual) (0-0.7) k/uL Metamyelocytes # (Man) (0) k/uL Myelocytes # (Manual) (0) k/uL Nucleated RBCs (0-0) /100 WBC ABG pCO2 (35-45) mmHg ABG HCO3 (21-25) mmol/L ABG O2 Saturation (94-97) % Sodium (137-145) mmol/L Potassium (3.5-5.1) mmol/L Carbon Dioxide (22-30) mmol/L BUN (9-20) mg/dL Creatinine (0.66-1.25) mg/dL Glucose (74-99) mg/dL POC Glucose (mg/dL) 115 H (75-99) mg/dL Calcium (8.4-10.2) mg/dL Total Bilirubin (0.2-1.3) mg/dL AST (17-59) U/L ALT (4-49) U/L Alkaline Phosphatase (38-126) U/L Total Protein (6.3-8.2) g/dL Albumin (3.5-5.0) g/dL Microbiology - Last 24 Hours (Table) 03/05/20 11:27 Blood Culture - Preliminary Blood No Growth after 72 hours 03/05/20 10:55 Blood Culture - Preliminary Blood No Growth after 72 hours 03/06/20 23:49 Gram Stain - Preliminary Sputum Sputum Culture - Preliminary Yeast species 02/29/20 11:00 Fungal Culture - Preliminary Bronchial Washings - Right 03/06/20 08:45 Blood Culture - Preliminary Blood No Growth after 48 hours 03/01/20 09:10 Blood Culture - Final Blood No Growth after 144 hours Assessment and Plan Assessment: ASSESSMENT - Fall from 15 feet ladder with multiple traumatic injuries to the chest and abdomen - 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 diff colitis - Chronic neck pain status post cervical fusion done in 2008 -Coronary artery disease status post CABG - Hyperlipidemia - BPH - Paroxysmal atrial fibrillation on amiodarone -Acute liver injury, possibly shock liver as LFTs have been significantly high and currently trending down PLAN: Patient is to be continued on ventilatory support. Dialysis as per nephrology recommendation- patient had 3.5 L of fluid removed today. Patient's white count has been trending down from 50,000-25,000 today. Continue antibiotics in the form of oral vancomycin and IV Flagyl. PEG tube placement on hold currently. Patient has been getting nutritional support through his NG tube. Overall prognosis is poor. Multiple consultants including pulmonary, nephrology, ID, vascular, cardiology, neurology on board and following the patient. The treatment plan was discussed in detail with the patient's at the bedside today. Further recommendations to follow depending on the progress of the patient. Had a discussion with and she is looking into LTAC facilities for long-term care.
--- NOTE | 2020-03-08 17:07 | PN ---
PROGRESS NOTE DATE OF SERVICE: 03/08/2020 REASON FOR FOLLOWUP: C difficile colitis. INTERVAL HISTORY: The patient is currently afebrile. The patient is hemodynamically stable, not on any pressor support. FiO2 is currently stable at 40%, no significant purulent secretion through the ET. The patient did have diarrhea for which a fecal management system has been applied. PHYSICAL EXAMINATION: Blood pressure 130/62 with a pulse of 90, temperature 99.1. He is 97% on 40% FiO2. General description is an elderly male, lying in bed in no distress. RESPIRATORY SYSTEM: Unlabored breathing, decreased breath sounds at bases, no wheeze. HEART: S1, S2. Regular rate and rhythm. ABDOMEN: Soft, no tenderness. LABS: Hemoglobin 7, white count 26, BUN of 108, creatinine 4.95. DIAGNOSTIC IMPRESSION AND PLAN: Patient with C difficile colitis for which the patient is currently covered with vancomycin and Flagyl to continue. The white count has shown a good response to current treatment will be continued. Monitor clinical course closely. at the bedtime. Questions were answered. MMODL / IJN: [id number] /
[2020-03-08 17:46] LABS: Glucose,Whole Blood 142 mg/dL (75-99)
[2020-03-08] MEDS: TAMSULOSIN 0.4 MG CAP.ER.24H PO SCH (20:46)
[2020-03-08] MEDS: FINASTERIDE 5 MG TAB PO SCH (20:46)
[2020-03-08 23:32] LABS: Glucose,Whole Blood 119 mg/dL (75-99)
[2020-03-09] MEDS: IPRATROPIUM-ALBUTEROL 3 ML NEB INHALATION SCH ×6 (00:04→19:38)
[2020-03-09] MEDS: MORPHINE SULFATE 4 MG/ML SYRINGE IVP PRN ×3 (01:33→06:29)
[2020-03-09] MEDS: HALOPERIDOL LACTATE 5 MG/ML 1 ML VIAL IVP PRN ×2 (01:43→04:48)
[2020-03-09] MEDS: LACTATED RINGERS 1,000 ML IV SCH (02:24)
[2020-03-09] MEDS: DEXMEDETOMIDINE/0.9% NACL(PMX) 400 MCG in EMPTY BAG 1 BAG IV SCH ×2 (03:45→11:23)
[2020-03-09 04:27] LABS: Anisocytosis Moderate; HCT 25.3 % (39.0-53.0); HGB 7.7 gm/dL (13.0-17.5); Hypochromasia Marked; MCHC 30.4 g/dL (31.0-37.0); MCV 92.1 fL (80.0-100.0); Macrocytosis Slight; Mean Platelet Volume 11.5; Platelet Count 372 k/uL (150-450); Poikilocytosis Moderate; RBC 2.74 m/uL (4.30-5.90); RDW 20.1 % (11.5-15.5)
[2020-03-09 04:31] LABS: Albumin 2.2 g/dL (3.5-5.0); Calcium 7.8 mg/dL (8.4-10.2); Potassium 4.9 mmol/L (3.5-5.1); Total Bilirubin 1.4 mg/dL (0.2-1.3); Total Protein 4.8 g/dL (6.3-8.2)
[2020-03-09] MEDS: NOREPINEPHRINE 32 MG in SODIUM CHLORIDE 0.9% 218 ML IV SCH (04:52)
[2020-03-09 04:55] LABS: Band Neutrophils % 8 %; Eosinophils # (M) 0.76 k/uL (0-0.7); Lymphocytes # (M) 1.27 k/uL (1.0-4.8); Metamyelocytes # (M) 0.76 k/uL (0); Metamyelocytes % 3 %; Monocytes # (M) 2.29 k/uL (0-1.0); Myelocytes # (M) 1.78 k/uL (0); Myelocytes % 7 %; Neutrophils % (M) 65 %; Nucleated Red Blood Cells 38 /100 WBC (0-0); Total Cells Counted 200; WBC 25.4 k/uL (3.8-10.6)
[2020-03-09 04:56] LABS: Basophilic Stippling Present; Large Platelets Present; Polychromasia Present
[2020-03-09 04:58] LABS: ABG Base Excess -1.4 mmol/L; ABG HCO3 24 mmol/L (21-25); ABG Oxygen Saturation 97.5 % (94-97); ABG PCO2 39 mmHg (35-45); ABG PH 7.39 (7.35-7.45); ABG PO2 102 mmHg (83-108); ABG TCO2 25 mmol/L (19-24); Allen Test Performed? Yes
[2020-03-09 05:50] LABS: Glucose,Whole Blood 142 mg/dL (75-99)
[2020-03-09] MEDS: INSULIN ASPART (NovoLOG) 100 UNIT/ML VIAL SQ SCH ×3 (06:00→18:42)
[2020-03-09] MEDS: VANCOMYCIN ORAL SOLUTION 250 MG/5 ML BOTTLE PO SCH ×3 (06:00→18:48)
[2020-03-09] MEDS: CALCIUM ACETATE 667 MG TAB PO SCH ×3 (06:01→16:22)
--- NOTE | 2020-03-09 08:57 | XR ---
EXAMINATION TYPE: XR chest 1V DATE OF EXAM: 03/09/2020 CLINICAL HISTORY: Intubated, tracheostomy TECHNIQUE: Semiupright portable view of the chest obtained COMPARISON: 03/08/2020 chest radiograph FINDINGS: Tracheostomy tube overlies the tracheal air column. Left PICC distal tip over the distal S VC. Enteric tube distal tip overlies the gastric fundus, with side-port near the level of the GE junc tion. Sternotomy wires. The cardiomediastinal silhouette is unchanged. Unchanged bilateral airspace o pacities and small pleural effusions. No sizable pneumothorax seen. IMPRESSION: Unchanged bilateral airspace opacities and small bilateral pleural effusions versus 2019.
[2020-03-09] MEDS ORDERED: HEPARIN SODIUM,PORCINE 5,000 UNIT/ML 1 ML VIAL ONE (09:00)
[2020-03-09] MEDS: MORPHINE ORAL SOLN 10 MG/5 ML CUP PO SCH ×2 (09:10→16:22)
[2020-03-09] MEDS: PANTOPRAZOLE 40 MG/10 ML VIAL IVP SCH (09:12)
[2020-03-09] MEDS: ENOXAPARIN 30 MG/0.3 ML SYRINGE SQ SCH (09:12)
[2020-03-09] MEDS: THIAMINE 100 MG TAB PO SCH (09:12)
[2020-03-09] MEDS: CHLORHEXIDINE GLUCONATE 15 ML CUP MUCOUS MEM SCH ×2 (09:12→20:51)
[2020-03-09] MEDS: SODIUM BICARBONATE TAB 650 MG TAB PO SCH ×3 (09:12→20:51)
[2020-03-09] MEDS: QUEtiapine 100 MG TAB PO SCH ×2 (09:13→20:51)
[2020-03-09] MEDS: SODIUM CHLORIDE 0.9% 1,000 ML IV SCH (09:13)
--- NOTE | 2020-03-09 10:41 | P.PN ---
Subjective Progress Note Date: 03/09/20 CHIEF COMPLAINT: Fall with Trauma HISTORY OF PRESENT ILLNESS: Patient seen with Dr. Ivy. This is a 69-year-old male who fell 15 feet off the top of the ladder. Patient's CAT scan was performed showing a large left pneumothorax as well as multiple rib fractures and hemoperitoneum and a ruptured spleen. Patient is status post splenectomy. Patient is status post tracheostomy placement due to his res piratory failure and unable to wean from vent. Patient remains in ICU and on vent. He is being weaned off the Precedex. He is scheduled for hemodialysis again today. PEG tube placement currently on hold. Patient is afebrile. White count 25.4 hemoglobin 7.7 creatinine 4.57 AST 151 ALT 190 PHYSICAL EXAM: VITAL SIGNS: Reviewed. GENERAL: Well-developed in no acute distress. HEENT: No sclera icterus. Extraocular movements grossly intact. Moist buccal mucosa. Head is atraumatic, normocephalic. Trach site clean dry and intact ABDOMEN: Soft. Nondistended. Incision site clean dry and intact NEUROLOGIC: Patient is sedated ASSESSMENT: 1. 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 2. Status post tracheostomy for respiratory failure 3. Status post fall off a ladder with, to chest and abdomen 4. Left-sided pneumothorax has chest tube in place 5. Multiple left-sided rib fractures 6. Alcohol intoxication 7. Acute hypoxic ventilatory dependent respiratory failure. 8. Chronic pain medication 9. Atrial fibrillation with rapid ventricular response 10. C. diff colitis 11. Acute kidney injury . Followed closely by nephrology. 12. Acute blood loss anemia status post blood transfusion PLAN: -We'll remove every other staple from incision site today -We'll reevaluate patient for possible PEG tube placement in a couple a days. -Continue tube feedings -Continue ICU management -Continue oral vancomycin -Hemodialysis per nephrology -matthewnox for DVT prophylaxis Physician [employer] Developer note has been reviewed by physician. Signing provider agrees with the documented findings, assessment, and plan of care. Objective - Vital Signs Vital signs: Vital Signs Temp 99.5 F 03/09/20 08:00 Pulse 105 H 03/09/20 10:00 Resp 21 03/09/20 10:00 BP 134/45 03/09/20 10:00 Pulse Ox 96 03/09/20 10:00 Intake & Output 03/08/20 03/09/20 03/09/20 18:59 06:59 18:59 Intake Total 685.345 679.058 279.514 Output Total 3740 270 105 Balance -3054.655 409.058 174.514 Weight 101.7 kg 99.5 kg Intake: IV 133 266 52 Pressure bag 33 36 12 Sodium Chloride 0.9% 1, 90 130 40 000 ml @ 20 mls/hr IV . Q24H [facility] Rx#:[id number] metroNIDAZOLE-NS PMX 500 10 100 mg In Saline 1 100ml.bag @ 100 mls/hr IVPB Q8HR [facility] Rx#:[id number] Intake, IV Titration 177.345 83.058 77.514 Amount Dexmedetomidine/0.9% NaCl 177.345 (Pmx) 400 mcg In Empty Bag 1 bag @ Titrate IV . Q0M [facility] Rx#:[id number] Dexmedetomidine/0.9% NaCl 83.058 77.514 (Pmx) 400 mcg In Empty Bag 1 bag @ Titrate IV . Q0M [facility] Rx#:[id number] Tube Feeding 345 330 150 Other 30 Output: Urine 240 270 105 Hemodialysis 3500 Other: Voiding Method Indwelling Catheter Indwelling Catheter Indwelling Catheter ABP, PAP, CO, CI - Last Documented Arterial Blood Pressure 129/50 - Labs CBC & Chem 7: 03/09/20 04:00 03/09/20 04:00 Labs: Abnormal Lab Results - Last 24 Hours (Table) 03/08/20 03/08/20 03/08/20 Range/Units 11:28 17:44 23:31 WBC (3.8-10.6) k/uL RBC (4.30-5.90) m/uL Hgb (13.0-17.5) gm/dL Hct (39.0-53.0) % MCHC (31.0-37.0) g/dL RDW (11.5-15.5) % Neutrophils # (Manual) (1.3-7.7) k/uL Monocytes # (Manual) (0-1.0) k/uL Eosinophils # (Manual) (0-0.7) k/uL Metamyelocytes # (Man) (0) k/uL Myelocytes # (Manual) (0) k/uL Nucleated RBCs (0-0) /100 WBC ABG Total CO2 (19-24) mmol/L ABG O2 Saturation (94-97) % Sodium (137-145) mmol/L BUN (9-20) mg/dL Creatinine (0.66-1.25) mg/dL Glucose (74-99) mg/dL POC Glucose (mg/dL) 115 H 142 H 119 H (75-99) mg/dL Calcium (8.4-10.2) mg/dL Total Bilirubin (0.2-1.3) mg/dL AST (17-59) U/L ALT (4-49) U/L Alkaline Phosphatase (38-126) U/L Total Protein (6.3-8.2) g/dL Albumin (3.5-5.0) g/dL 03/09/20 03/09/20 03/09/20 Range/Units 04:00 04:00 04:55 WBC 25.4 H (3.8-10.6) k/uL RBC 2.74 L (4.30-5.90) m/uL Hgb 7.7 L (13.0-17.5) gm/dL Hct 25.3 L (39.0-53.0) % MCHC 30.4 L (31.0-37.0) g/dL RDW 20.1 H (11.5-15.5) % Neutrophils # (Manual) 18.50 H (1.3-7.7) k/uL Monocytes # (Manual) 2.29 H (0-1.0) k/uL Eosinophils # (Manual) 0.76 H (0-0.7) k/uL Metamyelocytes # (Man) 0.76 H (0) k/uL Myelocytes # (Manual) 1.78 H (0) k/uL Nucleated RBCs 38 H (0-0) /100 WBC ABG Total CO2 25 H (19-24) mmol/L ABG O2 Saturation 97.5 H (94-97) % Sodium 132 L (137-145) mmol/L BUN 95 H (9-20) mg/dL Creatinine 4.57 H (0.66-1.25) mg/dL Glucose 126 H (74-99) mg/dL POC Glucose (mg/dL) (75-99) mg/dL Calcium 7.8 L (8.4-10.2) mg/dL Total Bilirubin 1.4 H (0.2-1.3) mg/dL AST 151 H (17-59) U/L ALT 190 H (4-49) U/L Alkaline Phosphatase 283 H (38-126) U/L Total Protein 4.8 L (6.3-8.2) g/dL Albumin 2.2 L (3.5-5.0) g/dL 03/09/20 Range/Units 05:48 WBC (3.8-10.6) k/uL RBC (4.30-5.90) m/uL Hgb (13.0-17.5) gm/dL Hct (39.0-53.0) % MCHC (31.0-37.0) g/dL RDW (11.5-15.5) % Neutrophils # (Manual) (1.3-7.7) k/uL Monocytes # (Manual) (0-1.0) k/uL Eosinophils # (Manual) (0-0.7) k/uL Metamyelocytes # (Man) (0) k/uL Myelocytes # (Manual) (0) k/uL Nucleated RBCs (0-0) /100 WBC ABG Total CO2 (19-24) mmol/L ABG O2 Saturation (94-97) % Sodium (137-145) mmol/L BUN (9-20) mg/dL Creatinine (0.66-1.25) mg/dL Glucose (74-99) mg/dL POC Glucose (mg/dL) 142 H (75-99) mg/dL Calcium (8.4-10.2) mg/dL Total Bilirubin (0.2-1.3) mg/dL AST (17-59) U/L ALT (4-49) U/L Alkaline Phosphatase (38-126) U/L Total Protein (6.3-8.2) g/dL Albumin (3.5-5.0) g/dL Microbiology - Last 24 Hours (Table) 03/05/20 11:27 Blood Culture - Preliminary Blood No Growth after 72 hours 03/05/20 10:55 Blood Culture - Preliminary Blood No Growth after 72 hours 03/06/20 23:49 Gram Stain - Preliminary Sputum Sputum Culture - Preliminary Yeast species 02/29/20 11:00 Fungal Culture - Preliminary Bronchial Washings - Right 03/06/20 08:45 Blood Culture - Preliminary Blood No Growth after 48 hours
[2020-03-09] MEDS: metroNIDAZOLE-NS PMX 500 MG in SALINE 1 100ML.BAG IVPB SCH ×2 (11:19→16:23)
[2020-03-09] MEDS: AMIODARONE 200 MG TAB PO SCH ×2 (11:19→20:51)
[2020-03-09] MEDS: FLUCONAZOLE IN NACL,ISO-OSM 200 MG in SALINE 1 100ML.BAG IVPB SCH (11:23)
[2020-03-09 11:32] LABS: Glucose,Whole Blood 117 mg/dL (75-99)
--- NOTE | 2020-03-09 11:36 | P.PN ---
Subjective Progress Note Date: 03/09/20 This is a 69-year-old male patient who was working on his gutters when he fell off a 15 foot ladder. This was unwitnessed. He end up calling his who in turn called EMS and the patient was brought in to the emergency department. Upon arrival, the patient was hypotensive and he was in shock. The patient initial chest x-ray showed several left-sided fractures and small amount of subcutaneous air in addition to a left-sided pneumothorax. The x-ray of the pelvis showed no evidence of any fracture or dislocation. The CAT scan of the brain showed age-related atrophy and chronic small vessel ischemic changes without any acute intracranial process. CAT scan of cervical spine showed no acute abnormalities. On and has Been of the cervical spine was done and the bone and soft tissue windows showed no acute abnormalities. There was no evidence of any fracture. Along with multiple left-sided rib fractures third extending to the seventh rib. There was also spending the sedation with estima daax grade 3 injury the patient. The patient's hemoglobin dropped to 10.5. The patient received a total of 2 L of IV fluid and 40 minutes of packed RBC. Morning hemoglobin today is At 13.4. The patient was taken to the operating room yesterday. The patient underwent a left-sided chest tube insertion. The patient also had splenectomy done and following that the patient was kept intubated on a mechanical ventilator and he was transferred to the intensive care unit. Note that the patient takes morphine outpatient basis and he has chronic pain and chronic narcotic requirements and on outpatient basis he takes morphine sulfate in the form of MS Contin 50 mg every 12 hours. Overnight, the patient was intubated on mechanical ventilator. He was sedated with a combination of propofol and he was also placed on morphine drip after being given several boluses control his pain. This morning, Profore is running at 70 mg per KG per minute. Morphine is running at 8 mg an hour. The patient is on normal saline at rate of 85 mL an hour. The patient has a left sided chest tube. Total amount of output is in order 110 mL of serosanguineous material without evidence of any air leak. The ventilator setting shows an assist- control mode rate of 20 with a tidal volume of 500 and FiO2 of 40% with a PEEP of 5. The patient's FiO2 is down to 40% overnight. The morning blood gases showed a pH of 7.4 with a pCO2 of 37 and pO2 of 121. The chest x-ray from this morning shows that the patient has an indwelling left-sided chest tube without any signs or pneumothorax. There is also a basilar pleural-based opacity along with multiple left-sided rib fractures and ET tube is in a good location. He is at approximately slightly swollen probably related to an infiltrated IV. He did not require any pressors. He remains hemodynamically stable. Lactic acid remains slightly elevated at 2.9 On 03/04/2020, the patient is being seen for a follow-up. The patient this morning is sedated with propofol at 50 mg per KG per minute. The patient is posterior Tibial Insertion. He Has a Bivona Tracheostomy Tube in Place. The Patient Is on a Mechanical Ventilator on Assist Control Mode at the Rate of 20 with a Tidal Volume of 500 and FiO2 of 50% with a PEEP of 10. The Blood Gases from Today Showed a pH of 7.33 with a pCO2 of 31 and pO2 of 140 and this was on FiO2 of 50%. Chest X-Ray Still Showing Bilateral Pulmonary Infiltrates That Are Rather Diffuse. The Previous Bronchoscopy and the bronchioloalveolar lavage showed no microbial growth. Prior to that a sputum sample that was done on 02/27/2020 showed Selina albicans and a sputum sample from 02/22/2020 showed Selina albicans and Selina Krusei. The patient was treated with Eraxis and he completed the course of antibiotics. He was also on IV Zosyn since admission. Antibiotics were discontinued and the patient developed C. diff colitis that was diagnosed on 03/02/2020. He was having significant diarrhea which essentially slowed down as the patient was started on oral vancomycin to 50 mg orally every 6 hours. The abdominal wound is dry clean and intact. No abdominal distention. Urine output is diminished and the patient is producing somewhere between 10-20 mL an hour of urine output. His any significant fluid overload including significant edema in all 4 extremities and scrotal edema. There is also some a bdominal wall edema. Surgical wound site is dry clean and intact. There is no signs of any wound infection. The patient is tolerating tube feeds and he is on vital high protein at the rate of 30 mL an hour. LFTs are on the rise. The creatinine is on the resident's currently up to 4.4 on the sodium level is down to 129 and a potassium level is at 5.7. This was discussed with nephrology and the patient is going to initiate hemodialysis today. Mental status is not appropriate still. As part of further investigation, the patient underwent another CAT scan of the brain on 02/27/2020 this was negative for any acute abnormalities and the patient had some new partial investigation of the shivani ateral mastoid air cells. A lumbar puncture was also done and the patient was found to have CSF protein of 50, no nucleated white cells, 17 RBCs and glucose was 93. Cultures were negative. On 03/05/2020, the patient is being seen in follow-up. Mother the patient was started on hemodialysis yesterday as the patient was having significant amount of fluid overload and the potassium was in the rise. Just about while going on dialysis, the patient developed heart block and this was a high-grade AV block with hemodynamic instability and hypotension. Immediately, the patient was given calcium chloride and sodium bicarb pushes. His condition was stabilized. He was started on pressors and following that his cardiac rhythm normalizes back to normal sinus rhythm. He underwent hemodialysis yesterday with ultrafiltration and total of 3 L of fluid was removed. Nevertheless, the patient continues to be significant fluid overload. This morning he remains on propofol at 50 mg per KG per minute. He is on levo fed at 0.03 g per KG per minute. He is on normal saline at 50 mL an hour. He remains on a mechanical ventilator. Earlier this morning, chest x-ray was done that showed improvement by the pulmonary infiltrates. The patient had a assist-control mode of ventilation at the rate of 30 with a tidal volume of 550 and FiO2 of 50% with a PEEP of 10. The blood gas showed a pH of 7.44 with episodes of 28 and pO2 148. The patient is making minimal amount of urine output. Hemoglobin this morning was at 6.5 without evidence of any GI bleed and the patient was given a unit of packed RBC. He is receiving Nepro as enteral feeding for nutritional support. Abdomen is slightly distended. The patient has no significant residuals and is producing adequate amount of bowel movement activity. His white cell count still elevated at 42 related to C. diff colitis. Abdominal wound is dry clean and intact. Less of the cultures were all negative for now. 03/06/20202019, the patient is being seen for a follow-up in the intensive care unit. I elected discussion with the patient's family. I met the daughters and also did a conference call with one of the daughters and we discussed the patient's condition at length and I updated them on his condition. Upon family's request, I initiated the transfer to [facility]. I had a discussion with Dr. Caraballo, trauma surgeon at [facility] who so no need for this patient to be transferred as the medical management that we have offered to this patient has been optimal and up to standard. In summary, today's evaluation, the patient is on a low dose of propofol running between 15 and 30 mg per KG per minute. He grimaces to painful stimulation. He is not following commands. He was given another session of dialysis this morning and the patient's blood pressure slightly dropped during hemodialysis and he is being supported with norepinephrine infusion for blood pressure support. The goal is to remove around 3 L of fluid in addition to hemodialysis. The patient is currently on assist control mode of ventilation at the tidal volume of 500, FiO2 of 40% with a PEEP of 5 and a rate of 30. The blood gases showed a pH of 7.45 with a pCO2 of 31 and pO2 of 84. Chest x-ray still unchanged compared to yesterday with bilateral pulmonary infiltrates. Take estimated to is in a good location and the patient has no significant air leaks. LFTs are in the decline as the patient has been recovering from a shock liver. Urine output is minimal and the patient is undergoing hemodialysis. Normal saline running at 20 mL an hour and the patient on Nepro at the rate of 30 mL an hour. Creatinine is up to 4.2. I'm a bit concerned of the ongoing elevation of the white cell. I initially attributed this to C. diff colitis. The patient was placed on oral vancomycin. Nevertheless, the patient continues to have elevated. Discussed the case with the general surgery. I'm going to obtain a CAT scan of the abdomen and pelvis. I'm also going to obtain a set of blood cultures. The patient does have some ongoing bandemia which in the order of 31%. Note that he is tolerating his enteral feeding for nutritional support. He is on oral vancomycin to 50 mg by mouth every 6 hours. He is cardiac rhythm is atrial fibrillation. Note that back and forth is going into episodes of atrial fibrillation. For instance, yesterday with sinus. This morning he is in atrial fibrillation with a controlled rate. No anticoagulants have been utilized. He is on Lovenox 30 mg subcu every 24 hours. This is being administered for DVT prophylaxis. 03/07/2020, I'm seeing this patient for a follow-up. On today's evaluation, the patient is sedated with Precedex. He gradually arouses while off Precedex. Nevertheless, he has not followed any commands.. He gets a bit restless and agitated and his blood pressure goes up and based on that we have to make titration on the Precedex infusion. Earlier this morning he was on 0.7 g per KG per minute. He is on mechanical ventilator. He essentially on the same mode of respirator on assist control mode at the rate of 30 with a tidal volume of 500 and FiO2 of 40% with a PEEP of 8. Morning blood gases showed a pH of 7.46 with a pCO2 of 30 and pO2 of 88. The patient essentially riding the mechanical ventilator and based on that the necessity ventilator changes were done and dropped a respiratory rate down to 22 and I dropped a PEEP down to 6. Chest x- ray is unchanged. The there was concern of his underlying colitis knowing that his white cell count was still elevated. The patient underwent a CAT scan of the abdomen and pelvis yesterday and the CAT scan showed some increased abdominal ascites, wall thickening of the left colon and rectosigmoid colon which is consistent with underlying colitis. He remains on oral vancomycin 5 mg 4 times a day. He is also on IV Flagyl for now and this was admitted by infectious disease. White cell count elevated at 50. The patient is afebrile. The patient is tolerating his enteral feeding. He did have a bowel movement yesterday. No diarrhea. Surgical wound site is dry clean and intact and the hemoglobin stable at 7.1. His bands are down to 8%. The patient will not have dialysis today. His BUN is 83 with a creatinine of 4.0. Rest of the electrodes are stable. Shock liver is improving and the AST is down to 70 for ALT is down to 377 and a total protein is at 4.5. Alkaline phosphatase is 259. He continues to have edema in all 4 extremities. He had [id number]-[id number] dialysis 3 days. The pro-calcitonin is elevated probably related to his underlying C. diff colitis. Blood cultures of been all negative. 03/08/2020 and seeing the patient for a follow-up. The patient has stayed on Precedex throughout the day yesterday and this morning he remains on Precedex at 0.7 g per KG per minute. Nevertheless, early in the morning hours, the patient became quite restless. Patient received a total of 4 L of morphine and 2 mg of Haldol. I saw the patient in morning. The patient was an assist-control mode of ventilation. I switched him to a VC plus mode at a tidal volume of 500 with a rate of 22 and I kept the PEEP at 4 with an FiO2 of 40%. The patient seemed to be much more relaxed on this current mode of ventilation. He was started on hemodialysis. His heart rate is in between atrial fibrillation normal sinus rhythm. Nevertheless, the patient has not required any Pressors while on hemodialysis. The patient opens up his eyes. He looks around. He does not follow any commands. At times he gets a bit restless and tachypneic. I noted that the patient's serum bicarbonate of 19. I offered some additional bicarb to improved underlying metabolic acidosis. My concern was to improve the patient's overall respiratory status. The patient Had a chest x-ray that was quite stable compared to yesterday without any major interval change. Tracheostomy tube is in a good location. The blood gas showed a pH of 7.41 with a pCO2 of 32 and pO2 of 102. The white cell count is on the decline as the patient is on a combination of IV Flagyl and oral vancomycin. Focused on was quite elevated due to C. diff colitis. No abdominal distention. Still having significant amount of third spacing and edema in the patient's overall goal is to ultrafiltrate at least 3 L on today's hemodialysis session. He has a triple-lumen catheter in his left groin and Artline his left groin. His dialysis cath is present in the right groin. No fever. No chills. No other significant events overnight. 03/09/2020, the patient is being seen for a follow-up. He remains on a canker ventilator. Remains on assist control mode at the rate of 22 with a tidal volume of 500 and a PEEP of 6 and FiO2 of 40%. Chest x-ray remains unchanged. Morning blood cultures from the patient's 7.39 with a pCO2 of 39 and pO2 of 102. No significant rest or secretions. The patient's tracheostomy tube in place. In terms of neurologic status, the patient is on Precedex at 0.4 g per KG. We're hoping to proceed with another session of dialysis this morning and following that are going to do further weaning of the Precedex and continue evaluating his mental status. As stated earlier, the patient grimaces and opens eyes spontaneously. Nevertheless is not following any commands. He seems to be less agitated. Metabolically, he is improved. He was given bicarb pushes yesterday and the serum bicarbs up to 25. His breathing is much more comfortable. LFTs continued to improve. Cardiac rhythm is back to sinus. White cell count is down to 25. Tolerating his tube feeds. Surgical wounds are dry clean and intact. Still edematous in all 4 extremities. The patient underwent a total of 3 L of ultrafiltration yesterday and we are hoping for some more for today. The triple-lumen catheter and Artline from the left femoral vein and artery were removed and the patient was given a Artline in the left upper extremity. No fever. No chills. No open wounds or sores. Extensive edema in all 4 extremities and extensive scrotal edema. Objective - Vital Signs Vital signs: Vital Signs Temp 99.5 F 03/09/20 08:00 Pulse 102 H 03/09/20 11:24 Resp 17 03/09/20 11:15 BP 130/63 03/09/20 11:15 Pulse Ox 98 03/09/20 11:15 Intake & Output 03/08/20 03/09/20 03/09/20 18:59 06:59 18:59 Intake Total 685.345 679.058 319.977 Output Total 3740 270 120 Balance -3054.655 409.058 199.977 Weight 101.7 kg 99.5 kg Intake: IV 133 266 55 Pressure bag 33 36 15 Sodium Chloride 0.9% 1, 90 130 40 000 ml @ 20 mls/hr IV . Q24H [facility] Rx#:[id number] metroNIDAZOLE-NS PMX 500 10 100 mg In Saline 1 100ml.bag @ 100 mls/hr IVPB Q8HR [facility] Rx#:[id number] Intake, IV Titration 177.345 83.058 84.977 Amount Dexmedetomidine/0.9% NaCl 177.345 (Pmx) 400 mcg In Empty Bag 1 bag @ Titrate IV . Q0M [facility] Rx#:[id number] Dexmedetomidine/0.9% NaCl 83.058 84.977 (Pmx) 400 mcg In Empty Bag 1 bag @ Titrate IV . Q0M [facility] Rx#:[id number] Tube Feeding 345 330 180 Other 30 Output: Urine 240 270 120 Hemodialysis 3500 Other: Voiding Method Indwelling Catheter Indwelling Catheter Indwelling Catheter ABP, PAP, CO, CI - Last Documented Arterial Blood Pressure 129/50 - Exam Gen. appearance the patient is currently on Precedex. The patient opens eyes spontaneously. At times he grimaces. At times he becomes tachypneic. He is not following any commands yet.. The patient has NG tube in place. The patient also has a tracheostomy tube in place which is a Bivona tracheostomy tube. No evidence of any air leak around the tube. This morning the patient is adequately sedated with propofol. He is calm and comfortable.. The patient grimaces to painful stimulation. Head exam was generally normal. There was no scleral icterus or corneal arcus. Mucous membranes were moist. Neck was supple and without jugular venous distension, thyromegaly, or carotid bruits. Carotids were easily palpable bilaterally. There was no adenopathy. The patient has a tracheostomy tube in place. Lungs sounds are diminished bilaterally and the patient is a left sided chest tube in place. Chest tube is in a good location. Breath sounds are slightly diminished in left lung base compared to the right. Cardiac exam revealed the PMI to be normally situated and sized. The rhythm was irregular and no extrasystoles were noted during several minutes of ausc ultation. The patient is currently in atrial fibrillation. He is back and forth between atrial fibrillation and normal sinus rhythm. The first and second heart sounds were normal and physiologic splitting of the second heart sound was noted. There were no murmurs, rubs, clicks, or gallops. Abdomen is soft and nontender. The patient has a mid abdominal scar which is dry clean and intact. A surgical scar/wound is dry clean and intact. No direct distention. No rebound distention. No guarding. Bowel sounds are hypoactive at this point in time. Examination of the extremities revealed easily palpable radial, femoral and pedal pulses. There was no cyanosis, clubbing and there is development of significant edema in all 4 extremities and the patient also has scrotal edema. He continues to have significant amount of edema in all 4 extremities. Examination of the skin revealed no evidence of significant rashes, suspicious appearing nevi or other concerning lesions. Abdominal wound site is dry clean and intact. Neurologic the patient is sedated yet he seems to be arousable once off the sedation. He is opening up his eyes spontaneously. He is grimacing. He is responding to painful stimulation. Asynchronous with a mechanical ventilator. The patient does not follow any commands. He grimaces to painful stimulation.. Currently he is well sedated. Pupils are equal and reactive to light. No signs of any head trauma. No nystagmus. No clonus. No Babinski. - Labs CBC & Chem 7: 03/09/20 04:00 03/09/20 04:00 Labs: Abnormal Lab Results - Last 24 Hours (Table) 03/08/20 03/08/20 03/08/20 Range/Units 11:28 17:44 23:31 WBC (3.8-10.6) k/uL RBC (4.30-5.90) m/uL Hgb (13.0-17.5) gm/dL Hct (39.0-53.0) % MCHC (31.0-37.0) g/dL RDW (11.5-15.5) % Neutrophils # (Manual) (1.3-7.7) k/uL Monocytes # (Manual) (0-1.0) k/uL Eosinophils # (Manual) (0-0.7) k/uL Metamyelocytes # (Man) (0) k/uL Myelocytes # (Manual) (0) k/uL Nucleated RBCs (0-0) /100 WBC ABG Total CO2 (19-24) mmol/L ABG O2 Saturation (94-97) % Sodium (137-145) mmol/L BUN (9-20) mg/dL Creatinine (0.66-1.25) mg/dL Glucose (74-99) mg/dL POC Glucose (mg/dL) 115 H 142 H 119 H (75-99) mg/dL Calcium (8.4-10.2) mg/dL Total Bilirubin (0.2-1.3) mg/dL AST (17-59) U/L ALT (4-49) U/L Alkaline Phosphatase (38-126) U/L Total Protein (6.3-8.2) g/dL Albumin (3.5-5.0) g/dL 03/09/20 03/09/20 03/09/20 Range/Units 04:00 04:00 04:55 WBC 25.4 H (3.8-10.6) k/uL RBC 2.74 L (4.30-5.90) m/uL Hgb 7.7 L (13.0-17.5) gm/dL Hct 25.3 L (39.0-53.0) % MCHC 30.4 L (31.0-37.0) g/dL RDW 20.1 H (11.5-15.5) % Neutrophils # (Manual) 18.50 H (1.3-7.7) k/uL Monocytes # (Manual) 2.29 H (0-1.0) k/uL Eosinophils # (Manual) 0.76 H (0-0.7) k/uL Metamyelocytes # (Man) 0.76 H (0) k/uL Myelocytes # (Manual) 1.78 H (0) k/uL Nucleated RBCs 38 H (0-0) /100 WBC ABG Total CO2 25 H (19-24) mmol/L ABG O2 Saturation 97.5 H (94-97) % Sodium 132 L (137-145) mmol/L BUN 95 H (9-20) mg/dL Creatinine 4.57 H (0.66-1.25) mg/dL Glucose 126 H (74-99) mg/dL POC Glucose (mg/dL) (75-99) mg/dL Calcium 7.8 L (8.4-10.2) mg/dL Total Bilirubin 1.4 H (0.2-1.3) mg/dL AST 151 H (17-59) U/L ALT 190 H (4-49) U/L Alkaline Phosphatase 283 H (38-126) U/L Total Protein 4.8 L (6.3-8.2) g/dL Albumin 2.2 L (3.5-5.0) g/dL 03/09/20 Range/Units 05:48 WBC (3.8-10.6) k/uL RBC (4.30-5.90) m/uL Hgb (13.0-17.5) gm/dL Hct (39.0-53.0) % MCHC (31.0-37.0) g/dL RDW (11.5-15.5) % Neutrophils # (Manual) (1.3-7.7) k/uL Monocytes # (Manual) (0-1.0) k/uL Eosinophils # (Manual) (0-0.7) k/uL Metamyelocytes # (Man) (0) k/uL Myelocytes # (Manual) (0) k/uL Nucleated RBCs (0-0) /100 WBC ABG Total CO2 (19-24) mmol/L ABG O2 Saturation (94-97) % Sodium (137-145) mmol/L BUN (9-20) mg/dL Creatinine (0.66-1.25) mg/dL Glucose (74-99) mg/dL POC Glucose (mg/dL) 142 H (75-99) mg/dL Calcium (8.4-10.2) mg/dL Total Bilirubin (0.2-1.3) mg/dL AST (17-59) U/L ALT (4-49) U/L Alkaline Phosphatase (38-126) U/L Total Protein (6.3-8.2) g/dL Albumin (3.5-5.0) g/dL Microbiology - Last 24 Hours (Table) 03/06/20 08:45 Blood Culture - Preliminary Blood No Growth after 72 hours 03/05/20 11:27 Blood Culture - Preliminary Blood No Growth after 72 hours 03/05/20 10:55 Blood Culture - Preliminary Blood No Growth after 72 hours 03/06/20 23:49 Gram Stain - Preliminary Sputum Sputum Culture - Preliminary Yeast species 02/29/20 11:00 Fungal Culture - Preliminary Bronchial Washings - Right Assessment and Plan Plan: 1 fall off a ladder with significant trauma to the chest and abdomen. The patient had sustained left-sided rib fractures, splenic rupture postsplenectomy, and a left-sided pneumothorax. 2 traumatic grade 3 laceration of the spleen along with hemoperitoneum and the patient is post splenectomy and the patient is postop day and the patient had the surgery on 02/17/2020. 3 traumatic left-sided rib fractures third drip through seventh rib along with a 30% left-sided pneumothorax post chest tube insertion with adequate expansion of the left lung. The left-sided chest tube was removed. 4 shock at the time of admission, essentially due to hemorrhagic shock, recovered 5 Acute kidney injury with massive fluid overload , currently on hemodialysis and ultrafiltration and this being done on a daily basis. 6 acute ventilator-dependent respiratory failure, hypoxic, secondary to above. The patient's overall pulmonary status is stable. The patient is maintaining adequate oxygenation and ventilation. He came up To 5. 7 chronic neck pain and the patient had been taken MS Contin on outpatient basis 15 mg twice a day 8 coronary artery disease with a previous bypass surgery 9 hyperlipidemia 10 BPH 11 delirium tremens as the patient is suspected alcoholism 12 paroxysmal atrial fibrillation and the patient is currently in A. fib on oral amiodarone. No anticoagulants. The patient continues to have episodes of atrial fibrillation and this morning his back into sinus rhythm. His left ventricular ejection fraction has been within normal limits. 13 leukocytosis, secondary to C. diff colitis, and the white cell count is improving for today. This concerning for bowel ischemia specially the patient has positive stool for C. diff. the patient underwent a CAT scan of the abdomen and pelvis. It showed nonspecific colitis of the rectosigmoid and descending colon. White cell count remains elevated. Bandemia is improved. He is on a combination of vancomycin oral and IV Flagyl. The patient is tolerating enteral feeding for nutritional support. 14 C. diff colitis currently on oral vancomycin and IV Flagyl., white cell count remains elevated . The patient is still having limited diarrhea. The patient on oral vancomycin and Flagyl. 15 anemia, multifactorial, chronic, hemoglobin is stable 16, acute hepatic injury, shock liver with LFTs are essentially improving for now. No significant coagulopathy. Plan Continue ventilator support , drop the PEEP down to 5 Keep the patient Precedex and gradually wean the Precedex. I'm hoping that this is all related to metabolic encephalopathy in the right encephalopathy which improved with dialysis and as the patient is being weaned off the sedations. Utilize Seroquel 100 mg twice and utilize Haldol as needed for agitation Hemodialysis by nephrology. The goal is to ultrafiltrate this patient by around 3-4 L . The last session of hemodialysis was done yesterday. Monitor LFTs, improving Continue enteral feeding for nutritional support Continue oral vancomycin regarding C. diff colitis and the patient is on Flagyl Repeat pro calcitonin level We'll continue to follow. The patient is critically ill, and the patient will monitored very closely in the ICU. This is a critically care evaluation that was on a more than 30 minutes.
--- NOTE | 2020-03-09 12:31 | PN ---
PROGRESS NOTE This is 70-year-old gentleman who was admitted to hospital following a fall from the ladder with a splenic rupture. Patient is still in respiratory failure, and has metabolic encephalopathy. He has had runs of paroxysmal atrial fibrillation and there was one episode of complete heart block related to hyperkalemia. At the time of my evaluation this morning, he appears he is in sinus rhythm and stable hemodynamically. PHYSICAL EXAM: Heart rate is 100 beats per minute, blood pressure is 130/60, respiratory rate is 17, O2 saturation is 98%. There is no jugular venous distention. Chest exam reveals good air entry bilaterally. Heart exam reveals first and second heart sounds. No gallop. No murmur. Abdomen is soft. Exam of extremities did not reveal any edema. Peripheral pulses are felt. The patient is on amiodarone 200 b.i.d. An echocardiogram revealed normal LV function. ASSESSMENT: 1. Paroxysmal atrial fibrillation. 2. Status post possible fall with splenic rupture. 3. Anemia. 4. Coronary artery disease, status post coronary artery bypass grafting. PLAN: Patient is not a candidate for long-term anticoagulation at this time. MMODL / IJN: [id number] /
[2020-03-09] MEDS: MORPHINE SULFATE 2 MG/ML SYRINGE IVP PRN (13:47)
--- NOTE | 2020-03-09 14:10 | PN ---
PROGRESS NOTE DATE OF SERVICE: 03/09/2020 This is a 70-year-old gentleman who was admitted with a fall from ladder, also had laceration of the spleen, patient's spleen removed. Patient is mechanically intubated, patient had tracheostomy. Patient is being closely monitored. Patient is on a small dose of Peridex. Patient also had C difficile positive. Patient is on hemodialysis also. The patient is on assist-control 500, 40% FiO2 and 5 of PEEP. Selina has grown from the sputum culture and most recent sputum culture also showed yeast species. Multiple consultants are following the patient. The patient is being closely monitored in ICU. PAST MEDICAL HISTORY: Reviewed. REVIEW OF SYSTEMS: Could not be taken, the patient is mechanically intubated. CURRENT MEDICATIONS: Tylenol, DuoNeb, Cordarone, PhosLo, Peridex, Proscar, Haldol, NovoLog, morphine, Narcan, Seroquel, Flomax. PHYSICAL EXAMINATION: Patient is closely mechanically ventilated and sedated. leukocytosis. Mechanical ventilation settings noted. Pulse is 104, blood pressure 103/63, respirations 17, temperature 99.4, pulse ox 98% on mechanical ventilation. HEENT: Conjunctivae normal. NECK: No jugular venous distention. CARDIOVASCULAR SYSTEM: S1, S2, muffled. RESPIRATORY: Breath sounds diminished at the bases. Bilateral scattered rhonchi. ABDOMEN: Soft, nontender. NERVOUS SYSTEM: Patient is mechanically ventilated and sedated. LEGS: No edema, no swelling. LABS: WBC 25.3, hemoglobin 7.7, creatinine is 4.57. AST is 151, ALT is 119, alkaline phosphatase is 283. ASSESSMENT: 1. Status post fall and multiple traumatic injuries to the chest and abdomen. 2. Status post laceration of spleen and hemoperitoneum, status post splenectomy. 3. Acute hypoxic respiratory failure on mechanical ventilation. 4. Status post tracheostomy. 5. Selina from the sputum. 6. Left-sided rib fractures from third to seventh ribs. 7. Left-sided pneumothorax and chest tube insertion. 8. Acute hemorrhagic shock. 9. Acute kidney injury secondary to rhabdomyolysis, multiple factors on hemodialysis. 10.Acute C difficile colitis. 11.Chronic neck pain and fusion. 12.History of CAD, CABG. 13.Hyperlipidemia. 14.BPH. 15.Paroxysmal atrial fibrillation, on amiodarone. 16.Acute liver injury, possibly shocked liver. RECOMMENDATION: Recommend to continue on current medications and monitor, symptomatic treatment. Otherwise at this time, continue with the antibiotics and antivirals. The liver enzymes are rather stable at this time. Will continue to monitor, closely follow with multiple consultants and urine showed alcohol 114 and THC and opiates at the time of admission. Guarded prognosis because of multiple complex medical issues. Further recommendations to follow. Closely follow with multiple consultants. MMMAYELAL / IJN: [id number] / SILVIA
--- NOTE | 2020-03-09 15:22 | PN ---
PROGRESS NOTE DATE OF SERVICE: 03/09/2020 REASON FOR FOLLOWUP: 1. C difficile colitis. 2. Elevated white count. INTERVAL HISTORY: The patient did have a low-grade fever of 100.2 degrees Fahrenheit. The patient, however, has been hemodynamically stable, not on any pressor support. FiO2 is currently stable at 40%. No significant purulent secretions through the ET and the diarrhea has slowed down. PHYSICAL EXAMINATION: Blood pressure 114/64 with a pulse of 99, temperature 100.2. He is 96% on 40% FiO2. General description is an elderly male lying in bed in no distress. RESPIRATORY SYSTEM: Unlabored breathing with decreased breath sounds at the base. No wheeze. HEART: S1, S2. Regular rate and rhythm. ABDOMEN: Soft. No tenderness. EXTREMITIES: No edema of the feet. LABS: Hemoglobin is 7.7, white count 25.4 with a BUN of 95, creatinine 4.57. Sputum with yeast. Blood culture negative. Pleural fluid culture negative. DIAGNOSTIC IMPRESSION AND PLAN: 1. Patient with an elevated white count which is multifactorial in this patient with a component of Clostridium difficile colitis. Since this patient did show an overall decrease in white count with the vancomycin and Flagyl; to continue. Diarrhea is slowing down. Clinical course will be monitored closely. 2. Positive sputum with yeast, more likely colonization of the oropharyngeal tract versus oropharyngeal candidiasis. Diflucan has been given. Will see his response to it. If improvement, we will switch him over to Eraxis to decrease interaction between Diflucan medication. at the bedside. Questions were answered. MMODL / IJN: [id number] /
--- NOTE | 2020-03-09 16:16 | CDI ---
Documentation Clarification Form Date: 03/09/2020 CDS: Monisha Lucero RN, CCDS Admit Date: 02/17/2020 Patient Name: Tejinder Boyer ATTENTION: The Clinical Documentation Specialists (CDI) and [facility] Coding Staff appreciate your assistance in clarifying documentation. Please respond to the clarification below the line at the bottom and electronically sign. The CDI & [facility] Coding staff will review the response and follow-up if needed. Please note: Queries are made part of the Legal Health Record. If you have any questions, please contact the author of this message via ITS. Dr. Ayanna Royal MD The patient is receiving enteral feeding for nutritional support. History/Risk Factors: 69-year-old male presents to ED after a fall of 15 feet off a ladder. The patient has multiple rib fractures, hemoperitoneum and ruptured spleen. Medical History HLD, Alcohol use and CABG. Patient continues to be intubated from 02/16 through 03/09. Clinical Indicators: 03/09 PN Critical Care: The patient is tolerating enteral feeding for nutritional support. Labs: 03/09 Wbc 25.4, neutrophils 18.50, Na 132, Bun 95, Cr 4.57, Calcium 7.8; Total Bili 1.4, AST 151; ALT 190; Alk Phos 283; Total Protein 4.8; Albumin 2.2; Procalcitonin 4.50 Dietitian Assessment 03/08 Current BMI: 35.4kg/m Nutrition Intake: Poor; NPO for nutritional support. Patient receiving Potassium, Proton pump inhibitor, sliding scale insulin. Inadequate energy intake related to NPO, intubation, sedation, tracheostomy, peg tube on hold Treatment: Dietary Consult: Above PPN/TPN: Rate schedule route feeding tube flush, Nepro 30ml/hr, free water flush 30ml every four hours. Lab monitoring: Chemistry panel In your professional opinion, can you please clarify if these findings signify one of the following conditions? Mild Protein-Calorie Malnutrition Moderate Protein-Calorie Malnutrition Severe Protein-Calorie Malnutrition Other condition, please specify Unable to determine (Last Revision: December 2018) Unable to determine MTDD
--- NOTE | 2020-03-09 17:07 | PN ---
PROGRESS NOTE Patient is seen this morning for followup for acute kidney injury, currently seen on hemodialysis. He is tolerating his treatment well. We are going for about 3 L of ultrafiltration. Blood pressure remains stable. Patient had some involuntary movements, but does not follow commands. He remains on the vent. FiO2 is at 40%. PHYSICAL EXAMINATION: This morning blood pressure was 130/63, heart rate of 96 per minute, patient is afebrile. Examination of the heart S1, S2. Examination of the lungs, bilateral breath sounds are heard. Abdomen is soft, nontender. Examination of the lower extremities shows edema 1+ bilaterally. SUPPLY CATALOGUER exam cannot be performed. Patient does not follow commands. LABS: Show hemoglobin 7.7, sodium of 132, potassium 4.9, BUN 95, serum creatinine 4.57. Albumin was 2.2. ASSESSMENT: 1. Acute kidney injury currently hemodialysis dependent. Patient is seen on hemodialysis, tolerating his treatment well. He is having daily treatments mostly for volume overload. Urine output is currently at about 5-10 mL an hour. We will dialyze the patient again tomorrow and then we will keep him on a Sunday, Sunday, Sunday schedule. 2. Ventilator-dependent respiratory failure, currently stable on the vent. 3. Volume overload, slowly improving. 4. Clostridium difficile colitis on oral vancomycin. Diarrhea has improved. 5. Status post fall with pneumothorax, multiple rib fractures, hemoperitoneum and ruptured spleen, status post emergency chest tube placement and splenectomy. 6. Atrial fibrillation with a few episodes of RVR, currently heart rate is controlled. 7. Hemorrhagic shock from intraperitoneal bleeding, status post packed RBCs transfusion. Currently stable. PLAN: Repeat hemodialysis in a.m. Continue to monitor for recovery of renal function. At this time patient is oliguric with no significant urine output. MMODL / IJN: [id number] /
[2020-03-09 18:31] LABS: Glucose,Whole Blood 130 mg/dL (75-99)
[2020-03-09] MEDS: FINASTERIDE 5 MG TAB PO SCH (20:51)
[2020-03-09] MEDS: TAMSULOSIN 0.4 MG CAP.ER.24H PO SCH (20:51)
[2020-03-09 23:59] LABS: Glucose,Whole Blood 139 mg/dL (75-99)
[2020-03-10] MEDS: IPRATROPIUM-ALBUTEROL 3 ML NEB INHALATION SCH ×8 (00:04→23:44)
[2020-03-10] MEDS: metroNIDAZOLE-NS PMX 500 MG in SALINE 1 100ML.BAG IVPB SCH ×3 (01:32→16:43)
[2020-03-10] MEDS: INSULIN ASPART (NovoLOG) 100 UNIT/ML VIAL SQ SCH ×4 (01:33→17:51)
[2020-03-10] MEDS: LACTATED RINGERS 1,000 ML IV SCH (01:33)
[2020-03-10] MEDS: MORPHINE ORAL SOLN 10 MG/5 ML CUP PO SCH ×3 (04:10→15:59)
[2020-03-10] MEDS: VANCOMYCIN ORAL SOLUTION 250 MG/5 ML BOTTLE PO SCH ×4 (04:11→17:54)
[2020-03-10 05:20] LABS: ABG Base Excess -0.4 mmol/L; ABG HCO3 24 mmol/L (21-25); ABG PCO2 36 mmHg (35-45); ABG PH 7.43 (7.35-7.45); ABG PO2 136 mmHg (83-108); ABG TCO2 25 mmol/L (19-24); Allen Test Performed? Yes
[2020-03-10 05:50] LABS: Glucose,Whole Blood 135 mg/dL (75-99)
[2020-03-10] MEDS: NOREPINEPHRINE 32 MG in SODIUM CHLORIDE 0.9% 218 ML IV SCH (06:53)
[2020-03-10 06:57] LABS: Albumin 2.1 g/dL (3.5-5.0); Calcium 7.8 mg/dL (8.4-10.2); Potassium 4.7 mmol/L (3.5-5.1); Total Bilirubin 1.2 mg/dL (0.2-1.3); Total Protein 4.7 g/dL (6.3-8.2)
[2020-03-10 07:10] LABS: Anisocytosis Slight; HCT 24.6 % (39.0-53.0); HGB 7.8 gm/dL (13.0-17.5); Hypochromasia Marked; MCH 28.8 pg (25.0-35.0); MCHC 31.6 g/dL (31.0-37.0); Macrocytosis Slight; Mean Platelet Volume 10.5; Platelet Count 320 k/uL (150-450); Poikilocytosis Moderate; RDW 19.4 % (11.5-15.5)
[2020-03-10 07:39] LABS: Band Neutrophils % 1 %; Metamyelocytes % 1 %; Myelocytes % 2 %; Neutrophils % (M) 69 %; Nucleated Red Blood Cells 26 /100 WBC (0-0); Total Cells Counted 200
[2020-03-10 07:40] LABS: Eosinophils # (M) 1.27 k/uL (0-0.7); Lymphocytes # (M) 1.63 k/uL (1.0-4.8); Metamyelocytes # (M) 0.18 k/uL (0); Monocytes # (M) 2.35 k/uL (0-1.0); Myelocytes # (M) 0.36 k/uL (0); Polychromasia Present; WBC 18.1 k/uL (3.8-10.6)
--- NOTE | 2020-03-10 08:01 | XR ---
EXAMINATION TYPE: XR chest 1V portable DATE OF EXAM: 03/10/2020 CLINICAL HISTORY: Difficulty breathing progress study. TECHNIQUE: Single AP portable semiupright view of the chest is obtained. COMPARISON: Chest x-ray from one day earlier and older studies. FINDINGS: Stable left-sided PICC line, flexible tracheostomy tube, and orogastric tube. Overlying st ernal wires and mediastinal clips redemonstrated. Partial visualization of surgical change in the ce rvical spine. Overlying EKG leads redemonstrated. Stable mild cardiomegaly. Persistent multifocal bilateral opacities with tiny bilateral pleural effus ions. Persistent central vascular congestion. Displaced left posterolateral fourth through sixth rib fractures noted. Slightly elevated left hemidiaphragm remains present. Contrast noted at level of spl enic flexure from recent CT. IMPRESSION: Chronic changes and mild cardiomegaly with tiny bilateral pleural effusions and multifoca l bilateral areas of edema and/or infiltrates all redemonstrated. No recurrent left-sided pneumothora x noted.
[2020-03-10] MEDS ORDERED: DILTIAZEM 5 MG/ML 10 ML VIAL IVP STA (09:14)
[2020-03-10] MEDS: CALCIUM ACETATE 667 MG TAB PO SCH ×3 (09:44→17:54)
[2020-03-10] MEDS: PANTOPRAZOLE 40 MG/10 ML VIAL IVP SCH (09:45)
[2020-03-10] MEDS: AMIODARONE 200 MG TAB PO SCH ×2 (09:45→21:37)
[2020-03-10] MEDS: SODIUM BICARBONATE TAB 650 MG TAB PO SCH ×3 (09:45→21:37)
[2020-03-10] MEDS: FLUCONAZOLE IN NACL,ISO-OSM 200 MG in SALINE 1 100ML.BAG IVPB SCH (09:45)
[2020-03-10] MEDS: CHLORHEXIDINE GLUCONATE 15 ML CUP MUCOUS MEM SCH ×2 (09:45→21:37)
[2020-03-10] MEDS: QUEtiapine 100 MG TAB PO SCH ×2 (09:45→21:37)
[2020-03-10] MEDS: DILTIAZEM 125 MG in SODIUM CHLORIDE 0.9% 100 ML IV SCH ×2 (09:46→10:25)
[2020-03-10] MEDS: THIAMINE 100 MG TAB PO SCH (09:46)
[2020-03-10] MEDS: SODIUM CHLORIDE 0.9% 1,000 ML IV SCH (09:46)
--- NOTE | 2020-03-10 11:44 | PN ---
PROGRESS NOTE Patient is seen for followup for acute kidney injury. He remains hemodialysis dependent. Patient is currently seen on hemodialysis. He is tolerating his treatment well. Urine output seems to have picked up to about 500 mL over 24 hours. We are going for about 4.3 L today. Blood pressure is remaining stable. Patient has not required any pressor agents. He continues to have significant edema, particularly scrotal edema. PHYSICAL EXAMINATION: On examination today, blood pressure was 119/72, heart rate 118 per minute, he is afebrile. Examination of the heart S1, S2. Examination of the lungs, decreased breath sounds at bases. Abdomen is soft, nontender. Examination of lower extremities shows edema 3 to 4+ bilaterally with significant scrotal edema. LABS: Show sodium 136, potassium 4.7, chloride 100, BUN 89, serum creatinine 4.19, calcium is 7.8, hemoglobin at 7.8 g/dL. ASSESSMENT: 1. Acute kidney injury, ATN currently oliguric with some improvement in urine output. Patient is maintained on daily dialysis, mostly for volume overload. 2. Hypoxic respiratory failure, currently on the vent. 3. Severe volume overload slowly improving. 4. Clostridium difficile colitis, diarrhea, significantly improved. 5. Status post fall with pneumothorax, multiple rib fractures. Hemoperitoneum, ruptured spleen, status post emergency chest tube placement and splenectomy. 6. Atrial fibrillation with controlled ventricular response. 7. Hemorrhagic bleeding, status post packed RBCs transfusion. Currently stable. PLAN: Continue with daily dialysis and ultrafiltration until Sunday. MMODL / IJN: [id number] /
--- NOTE | 2020-03-10 11:47 | P.PN ---
Subjective Progress Note Date: 03/10/20 CHIEF COMPLAINT: Fall with Trauma HISTORY OF PRESENT ILLNESS: Patient seen with Dr. Ivy. This is a 69-year-old male who fell 15 feet off the top of the ladder. Patient's CAT scan was performed showing a large left pneumothorax as well as multiple rib fractures and hemoperitoneum and a ruptured spleen. Patient is status post splenectomy. Patient is status post tracheostomy placement due to his res piratory failure and unable to wean from vent. Patient remains in ICU and on vent. Patient is getting hemodialysis today. Patient had low-grade temp of 100.2 yesterday. White count down to 18.1 hemoglobin 7.8 PHYSICAL EXAM: VITAL SIGNS: Reviewed. GENERAL: Well-developed in no acute distress. HEENT: No sclera icterus. Extraocular movements grossly intact. Moist buccal mucosa. Head is atraumatic, normocephalic. Trach site clean dry and intact ABDOMEN: Soft. Nondistended. Incision site clean dry and intact NEUROLOGIC: Patient is sedated ASSESSMENT: 1. 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 2. Status post tracheostomy for respiratory failure 3. Status post fall off a ladder with, to chest and abdomen 4. Left-sided pneumothorax has chest tube in place 5. Multiple left-sided rib fractures 6. Alcohol intoxication 7. Acute hypoxic ventilatory dependent respiratory failure. 8. Chronic pain medication 9. Atrial fibrillation with rapid ventricular response 10. C. diff colitis 11. Acute kidney injury . Followed closely by nephrology. 12. Acute blood loss anemia status post blood transfusion PLAN: -Continue tube feedings -Continue ICU management -Continue oral vancomycin -Hemodialysis per nephrology -matthewnox for DVT prophylaxis Physician Hoop Riveter note has been reviewed by physician. Signing provider agrees with the documented findings, assessment, and plan of care. Objective - Vital Signs Vital signs: Vital Signs Temp 98.3 F 03/10/20 08:00 Pulse 112 H 03/10/20 11:28 Resp 24 03/10/20 11:00 BP 101/78 03/10/20 11:00 Pulse Ox 98 03/10/20 11:00 Intake & Output 03/09/20 03/10/20 03/10/20 18:59 06:59 18:59 Intake Total 800.977 376 412 Output Total 3715 140 170 Balance -2914.023 236 242 Weight 93.6 kg Intake: IV 216 256 192 Pressure bag 36 36 12 Sodium Chloride 0.9% 1, 180 220 80 000 ml @ 20 mls/hr IV . Q24H BETTINA Rx#:[id number] metroNIDAZOLE-NS PMX 500 100 mg In Saline 1 100ml.bag @ 100 mls/hr IVPB Q8HR BETTINA Rx#:[id number] Intake, IV Titration 84.977 100 Amount Dexmedetomidine/0.9% NaCl 84.977 (Pmx) 400 mcg In Empty Bag 1 bag @ Titrate IV . Q0M BETTINA Rx#:[id number] Fluconazole in NaCl,Iso- 100 Osm 200 mg In Saline 1 100ml.bag @ 100 mls/hr IVPB DAILY BETTINA Rx#: [id number] Tube Feeding 450 120 120 Other 50 Output: Urine 215 140 170 Hemodialysis 3500 Other: Voiding Method Indwelling Catheter Indwelling Catheter Indwelling Catheter ABP, PAP, CO, CI - Last Documented Arterial Blood Pressure 129/50 - Labs CBC & Chem 7: 03/10/20 06:30 03/10/20 06:30 Labs: Abnormal Lab Results - Last 24 Hours (Table) 03/09/20 03/09/20 03/09/20 Range/Units 04:00 18:30 23:58 WBC (3.8-10.6) k/uL RBC (4.30-5.90) m/uL Hgb (13.0-17.5) gm/dL Hct (39.0-53.0) % RDW (11.5-15.5) % Neutrophils # (Manual) (1.3-7.7) k/uL Monocytes # (Manual) (0-1.0) k/uL Eosinophils # (Manual) (0-0.7) k/uL Metamyelocytes # (Man) (0) k/uL Myelocytes # (Manual) (0) k/uL Nucleated RBCs (0-0) /100 WBC ABG pO2 (83-108) mmHg ABG Total CO2 (19-24) mmol/L ABG O2 Saturation (94-97) % Sodium (137-145) mmol/L BUN (9-20) mg/dL Creatinine (0.66-1.25) mg/dL Glucose (74-99) mg/dL POC Glucose (mg/dL) 130 H 139 H (75-99) mg/dL Calcium (8.4-10.2) mg/dL AST (17-59) U/L ALT (4-49) U/L Alkaline Phosphatase (38-126) U/L Total Protein (6.3-8.2) g/dL Albumin (3.5-5.0) g/dL Procalcitonin 4.50 H (0.02-0.09) ng/mL 03/10/20 03/10/20 03/10/20 Range/Units 05:18 05:48 06:30 WBC 18.1 H (3.8-10.6) k/uL RBC 2.70 L (4.30-5.90) m/uL Hgb 7.8 L (13.0-17.5) gm/dL Hct 24.6 L (39.0-53.0) % RDW 19.4 H (11.5-15.5) % Neutrophils # (Manual) 12.60 H (1.3-7.7) k/uL Monocytes # (Manual) 2.35 H (0-1.0) k/uL Eosinophils # (Manual) 1.27 H (0-0.7) k/uL Metamyelocytes # (Man) 0.18 H (0) k/uL Myelocytes # (Manual) 0.36 H (0) k/uL Nucleated RBCs 26 H (0-0) /100 WBC ABG pO2 136 H (83-108) mmHg ABG Total CO2 25 H (19-24) mmol/L ABG O2 Saturation 99.0 H (94-97) % Sodium (137-145) mmol/L BUN (9-20) mg/dL Creatinine (0.66-1.25) mg/dL Glucose (74-99) mg/dL POC Glucose (mg/dL) 135 H (75-99) mg/dL Calcium (8.4-10.2) mg/dL AST (17-59) U/L ALT (4-49) U/L Alkaline Phosphatase (38-126) U/L Total Protein (6.3-8.2) g/dL Albumin (3.5-5.0) g/dL Procalcitonin (0.02-0.09) ng/mL 03/10/20 Range/Units 06:30 WBC (3.8-10.6) k/uL RBC (4.30-5.90) m/uL Hgb (13.0-17.5) gm/dL Hct (39.0-53.0) % RDW (11.5-15.5) % Neutrophils # (Manual) (1.3-7.7) k/uL Monocytes # (Manual) (0-1.0) k/uL Eosinophils # (Manual) (0-0.7) k/uL Metamyelocytes # (Man) (0) k/uL Myelocytes # (Manual) (0) k/uL Nucleated RBCs (0-0) /100 WBC ABG pO2 (83-108) mmHg ABG Total CO2 (19-24) mmol/L ABG O2 Saturation (94-97) % Sodium 136 L (137-145) mmol/L BUN 89 H (9-20) mg/dL Creatinine 4.19 H (0.66-1.25) mg/dL Glucose 121 H (74-99) mg/dL POC Glucose (mg/dL) (75-99) mg/dL Calcium 7.8 L (8.4-10.2) mg/dL AST 81 H (17-59) U/L ALT 124 H (4-49) U/L Alkaline Phosphatase 255 H (38-126) U/L Total Protein 4.7 L (6.3-8.2) g/dL Albumin 2.1 L (3.5-5.0) g/dL Procalcitonin (0.02-0.09) ng/mL Microbiology - Last 24 Hours (Table) 03/06/20 08:45 Blood Culture - Preliminary Blood No Growth after 96 hours 03/06/20 23:49 Gram Stain - Final Sputum Sputum Culture - Final Selina krusei Selina albicans 03/05/20 11:27 Blood Culture - Preliminary Blood No Growth after 96 hours 03/05/20 10:55 Blood Culture - Preliminary Blood No Growth after 96 hours
[2020-03-10] MEDS: APIXABAN 2.5 MG TABLET PO SCH ×2 (11:48→21:37)
--- NOTE | 2020-03-10 12:01 | P.PN ---
Subjective Progress Note Date: 03/10/20 This is a 69-year-old male patient who was working on his gutters when he fell off a 15 foot ladder. This was unwitnessed. He end up calling his who in turn called EMS and the patient was brought in to the emergency department. Upon arrival, the patient was hypotensive and he was in shock. The patient initial chest x-ray showed several left-sided fractures and small amount of subcutaneous air in addition to a left-sided pneumothorax. The x-ray of the pelvis showed no evidence of any fracture or dislocation. The CAT scan of the brain showed age-related atrophy and chronic small vessel ischemic changes without any acute intracranial process. CAT scan of cervical spine showed no acute abnormalities. On and has Been of the cervical spine was done and the bone and soft tissue windows showed no acute abnormalities. There was no evidence of any fracture. Along with multiple left-sided rib fractures third extending to the seventh rib. There was also spending the sedation with estima daxa grade 3 injury the patient. The patient's hemoglobin dropped to 10.5. The patient received a total of 2 L of IV fluid and 40 minutes of packed RBC. Morning hemoglobin today is At 13.4. The patient was taken to the operating room yesterday. The patient underwent a left-sided chest tube insertion. The patient also had splenectomy done and following that the patient was kept intubated on a mechanical ventilator and he was transferred to the intensive care unit. Note that the patient takes morphine outpatient basis and he has chronic pain and chronic narcotic requirements and on outpatient basis he takes morphine sulfate in the form of MS Contin 50 mg every 12 hours. Overnight, the patient was intubated on mechanical ventilator. He was sedated with a combination of propofol and he was also placed on morphine drip after being given several boluses control his pain. This morning, Profore is running at 70 mg per KG per minute. Morphine is running at 8 mg an hour. The patient is on normal saline at rate of 85 mL an hour. The patient has a left sided chest tube. Total amount of output is in order 110 mL of serosanguineous material without evidence of any air leak. The ventilator setting shows an assist- control mode rate of 20 with a tidal volume of 500 and FiO2 of 40% with a PEEP of 5. The patient's FiO2 is down to 40% overnight. The morning blood gases showed a pH of 7.4 with a pCO2 of 37 and pO2 of 121. The chest x-ray from this morning shows that the patient has an indwelling left-sided chest tube without any signs or pneumothorax. There is also a basilar pleural-based opacity along with multiple left-sided rib fractures and ET tube is in a good location. He is at approximately slightly swollen probably related to an infiltrated IV. He did not require any pressors. He remains hemodynamically stable. Lactic acid remains slightly elevated at 2.9 On 03/04/2020, the patient is being seen for a follow-up. The patient this morning is sedated with propofol at 50 mg per KG per minute. The patient is posterior Tibial Insertion. He Has a Bivona Tracheostomy Tube in Place. The Patient Is on a Mechanical Ventilator on Assist Control Mode at the Rate of 20 with a Tidal Volume of 500 and FiO2 of 50% with a PEEP of 10. The Blood Gases from Today Showed a pH of 7.33 with a pCO2 of 31 and pO2 of 140 and this was on FiO2 of 50%. Chest X-Ray Still Showing Bilateral Pulmonary Infiltrates That Are Rather Diffuse. The Previous Bronchoscopy and the bronchioloalveolar lavage showed no microbial growth. Prior to that a sputum sample that was done on 02/27/2020 showed Selina albicans and a sputum sample from 02/22/2020 showed Selina albicans and Selina Krusei. The patient was treated with Eraxis and he completed the course of antibiotics. He was also on IV Zosyn since admission. Antibiotics were discontinued and the patient developed C. diff colitis that was diagnosed on 03/02/2020. He was having significant diarrhea which essentially slowed down as the patient was started on oral vancomycin to 50 mg orally every 6 hours. The abdominal wound is dry clean and intact. No abdominal distention. Urine output is diminished and the patient is producing somewhere between 10-20 mL an hour of urine output. His any significant fluid overload including significant edema in all 4 extremities and scrotal edema. There is also some a bdominal wall edema. Surgical wound site is dry clean and intact. There is no signs of any wound infection. The patient is tolerating tube feeds and he is on vital high protein at the rate of 30 mL an hour. LFTs are on the rise. The creatinine is on the resident's currently up to 4.4 on the sodium level is down to 129 and a potassium level is at 5.7. This was discussed with nephrology and the patient is going to initiate hemodialysis today. Mental status is not appropriate still. As part of further investigation, the patient underwent another CAT scan of the brain on 02/27/2020 this was negative for any acute abnormalities and the patient had some new partial investigation of the shivani ateral mastoid air cells. A lumbar puncture was also done and the patient was found to have CSF protein of 50, no nucleated white cells, 17 RBCs and glucose was 93. Cultures were negative. On 03/05/2020, the patient is being seen in follow-up. Mother the patient was started on hemodialysis yesterday as the patient was having significant amount of fluid overload and the potassium was in the rise. Just about while going on dialysis, the patient developed heart block and this was a high-grade AV block with hemodynamic instability and hypotension. Immediately, the patient was given calcium chloride and sodium bicarb pushes. His condition was stabilized. He was started on pressors and following that his cardiac rhythm normalizes back to normal sinus rhythm. He underwent hemodialysis yesterday with ultrafiltration and total of 3 L of fluid was removed. Nevertheless, the patient continues to be significant fluid overload. This morning he remains on propofol at 50 mg per KG per minute. He is on levo fed at 0.03 g per KG per minute. He is on normal saline at 50 mL an hour. He remains on a mechanical ventilator. Earlier this morning, chest x-ray was done that showed improvement by the pulmonary infiltrates. The patient had a assist-control mode of ventilation at the rate of 30 with a tidal volume of 550 and FiO2 of 50% with a PEEP of 10. The blood gas showed a pH of 7.44 with episodes of 28 and pO2 148. The patient is making minimal amount of urine output. Hemoglobin this morning was at 6.5 without evidence of any GI bleed and the patient was given a unit of packed RBC. He is receiving Nepro as enteral feeding for nutritional support. Abdomen is slightly distended. The patient has no significant residuals and is producing adequate amount of bowel movement activity. His white cell count still elevated at 42 related to C. diff colitis. Abdominal wound is dry clean and intact. Less of the cultures were all negative for now. 03/06/20202019, the patient is being seen for a follow-up in the intensive care unit. I elected discussion with the patient's family. I met the daughters and also did a conference call with one of the daughters and we discussed the patient's condition at length and I updated them on his condition. Upon family's request, I initiated the transfer to [facility]. I had a discussion with Dr. Caraballo, trauma surgeon at [facility] who so no need for this patient to be transferred as the medical management that we have offered to this patient has been optimal and up to standard. In summary, today's evaluation, the patient is on a low dose of propofol running between 15 and 30 mg per KG per minute. He grimaces to painful stimulation. He is not following commands. He was given another session of dialysis this morning and the patient's blood pressure slightly dropped during hemodialysis and he is being supported with norepinephrine infusion for blood pressure support. The goal is to remove around 3 L of fluid in addition to hemodialysis. The patient is currently on assist control mode of ventilation at the tidal volume of 500, FiO2 of 40% with a PEEP of 5 and a rate of 30. The blood gases showed a pH of 7.45 with a pCO2 of 31 and pO2 of 84. Chest x-ray still unchanged compared to yesterday with bilateral pulmonary infiltrates. Take estimated to is in a good location and the patient has no significant air leaks. LFTs are in the decline as the patient has been recovering from a shock liver. Urine output is minimal and the patient is undergoing hemodialysis. Normal saline running at 20 mL an hour and the patient on Nepro at the rate of 30 mL an hour. Creatinine is up to 4.2. I'm a bit concerned of the ongoing elevation of the white cell. I initially attributed this to C. diff colitis. The patient was placed on oral vancomycin. Nevertheless, the patient continues to have elevated. Discussed the case with the general surgery. I'm going to obtain a CAT scan of the abdomen and pelvis. I'm also going to obtain a set of blood cultures. The patient does have some ongoing bandemia which in the order of 31%. Note that he is tolerating his enteral feeding for nutritional support. He is on oral vancomycin to 50 mg by mouth every 6 hours. He is cardiac rhythm is atrial fibrillation. Note that back and forth is going into episodes of atrial fibrillation. For instance, yesterday with sinus. This morning he is in atrial fibrillation with a controlled rate. No anticoagulants have been utilized. He is on Lovenox 30 mg subcu every 24 hours. This is being administered for DVT prophylaxis. 03/07/2020, I'm seeing this patient for a follow-up. On today's evaluation, the patient is sedated with Precedex. He gradually arouses while off Precedex. Nevertheless, he has not followed any commands.. He gets a bit restless and agitated and his blood pressure goes up and based on that we have to make titration on the Precedex infusion. Earlier this morning he was on 0.7 g per KG per minute. He is on mechanical ventilator. He essentially on the same mode of respirator on assist control mode at the rate of 30 with a tidal volume of 500 and FiO2 of 40% with a PEEP of 8. Morning blood gases showed a pH of 7.46 with a pCO2 of 30 and pO2 of 88. The patient essentially riding the mechanical ventilator and based on that the necessity ventilator changes were done and dropped a respiratory rate down to 22 and I dropped a PEEP down to 6. Chest x- ray is unchanged. The there was concern of his underlying colitis knowing that his white cell count was still elevated. The patient underwent a CAT scan of the abdomen and pelvis yesterday and the CAT scan showed some increased abdominal ascites, wall thickening of the left colon and rectosigmoid colon which is consistent with underlying colitis. He remains on oral vancomycin 5 mg 4 times a day. He is also on IV Flagyl for now and this was admitted by infectious disease. White cell count elevated at 50. The patient is afebrile. The patient is tolerating his enteral feeding. He did have a bowel movement yesterday. No diarrhea. Surgical wound site is dry clean and intact and the hemoglobin stable at 7.1. His bands are down to 8%. The patient will not have dialysis today. His BUN is 83 with a creatinine of 4.0. Rest of the electrodes are stable. Shock liver is improving and the AST is down to 70 for ALT is down to 377 and a total protein is at 4.5. Alkaline phosphatase is 259. He continues to have edema in all 4 extremities. He had pulo-pp-vehp dialysis 3 days. The pro-calcitonin is elevated probably related to his underlying C. diff colitis. Blood cultures of been all negative. 03/08/2020 and seeing the patient for a follow-up. The patient has stayed on Precedex throughout the day yesterday and this morning he remains on Precedex at 0.7 g per KG per minute. Nevertheless, early in the morning hours, the patient became quite restless. Patient received a total of 4 L of morphine and 2 mg of Haldol. I saw the patient in morning. The patient was an assist-control mode of ventilation. I switched him to a VC plus mode at a tidal volume of 500 with a rate of 22 and I kept the PEEP at 4 with an FiO2 of 40%. The patient seemed to be much more relaxed on this current mode of ventilation. He was started on hemodialysis. His heart rate is in between atrial fibrillation normal sinus rhythm. Nevertheless, the patient has not required any Pressors while on hemodialysis. The patient opens up his eyes. He looks around. He does not follow any commands. At times he gets a bit restless and tachypneic. I noted that the patient's serum bicarbonate of 19. I offered some additional bicarb to improved underlying metabolic acidosis. My concern was to improve the patient's overall respiratory status. The patient Had a chest x-ray that was quite stable compared to yesterday without any major interval change. Tracheostomy tube is in a good location. The blood gas showed a pH of 7.41 with a pCO2 of 32 and pO2 of 102. The white cell count is on the decline as the patient is on a combination of IV Flagyl and oral vancomycin. Focused on was quite elevated due to C. diff colitis. No abdominal distention. Still having significant amount of third spacing and edema in the patient's overall goal is to ultrafiltrate at least 3 L on today's hemodialysis session. He has a triple-lumen catheter in his left groin and Artline his left groin. His dialysis cath is present in the right groin. No fever. No chills. No other significant events overnight. 03/09/2020, the patient is being seen for a follow-up. He remains on a canker ventilator. Remains on assist control mode at the rate of 22 with a tidal volume of 500 and a PEEP of 6 and FiO2 of 40%. Chest x-ray remains unchanged. Morning blood cultures from the patient's 7.39 with a pCO2 of 39 and pO2 of 102. No significant rest or secretions. The patient's tracheostomy tube in place. In terms of neurologic status, the patient is on Precedex at 0.4 g per KG. We're hoping to proceed with another session of dialysis this morning and following that are going to do further weaning of the Precedex and continue evaluating his mental status. As stated earlier, the patient grimaces and opens eyes spontaneously. Nevertheless is not following any commands. He seems to be less agitated. Metabolically, he is improved. He was given bicarb pushes yesterday and the serum bicarbs up to 25. His breathing is much more comfortable. LFTs continued to improve. Cardiac rhythm is back to sinus. White cell count is down to 25. Tolerating his tube feeds. Surgical wounds are dry clean and intact. Still edematous in all 4 extremities. The patient underwent a total of 3 L of ultrafiltration yesterday and we are hoping for some more for today. The triple-lumen catheter and Artline from the left femoral vein and artery were removed and the patient was given a Artline in the left upper extremity. No fever. No chills. No open wounds or sores. Extensive edema in all 4 extremities and extensive scrotal edema. 03/10/2020, the patient is off Precedex. The patient is moving all 4 extremities. His grimacing. Sometimes he gets restless. He is still not following any commands. He will be started on hemodialysis with a goal of 3 L of ultrafiltration. His volume status is improving as the patient is receiving daily dialysis sessions. He remains on the same ventilator setting. He is on a tidal volume of 500 with a PEEP of 5 and FiO2 of 40% and a respiratory rate of 22. Chest x-ray is unchanged. Blood gas shows a pH of 7.43 with a pCO2 of 36 and pO2 of 136. The patient is synchronous with the mechanical ventilator. He shock liver continues to improve. AST and ALT continue to decline. He is receiving enteral feeding for nutritional support and white cell count is down to 18.1. He was stable at 7.8. The patient continues to have episodes of atrial fibrillation. Rate is slightly tachycardic today. May need to be started on Cardizem drip for rate control and the patient be also started on Eliquis is along for medical record notes regarding his proximal atrial fibrillation. The patient has a clear surgical wound site. He is off Precedex mental status is being monitored very closely. Objective - Vital Signs Vital signs: Vital Signs Temp 98.3 F 03/10/20 08:00 Pulse 112 H 03/10/20 11:28 Resp 24 03/10/20 11:00 BP 101/78 03/10/20 11:00 Pulse Ox 98 03/10/20 11:00 Intake & Output 03/09/20 03/10/20 03/10/20 18:59 06:59 18:59 Intake Total 800.977 376 412 Output Total 3715 140 170 Balance -2914.023 236 242 Weight 93.6 kg Intake: IV 216 256 192 Pressure bag 36 36 12 Sodium Chloride 0.9% 1, 180 220 80 000 ml @ 20 mls/hr IV . Q24H BETTINA Rx#:[id number] metroNIDAZOLE-NS PMX 500 100 mg In Saline 1 100ml.bag @ 100 mls/hr IVPB Q8HR BETTINA Rx#:[id number] Intake, IV Titration 84.977 100 Amount Dexmedetomidine/0.9% NaCl 84.977 (Pmx) 400 mcg In Empty Bag 1 bag @ Titrate IV . Q0M BETTINA Rx#:[id number] Fluconazole in NaCl,Iso- 100 Osm 200 mg In Saline 1 100ml.bag @ 100 mls/hr IVPB DAILY BETTINA Rx#: [id number] Tube Feeding 450 120 120 Other 50 Output: Urine 215 140 170 Hemodialysis 3500 Other: Voiding Method Indwelling Catheter Indwelling Catheter Indwelling Catheter ABP, PAP, CO, CI - Last Documented Arterial Blood Pressure 129/50 - Exam Gen. appearance the patient is currently off sedation has been off sedation for the past nearly 24 hours. The patient opens eyes spontaneously. At times he grimaces. At times he becomes tachypneic. He is not following any commands yet.. The patient has NG tube in place. The patient also has a tracheostomy tube in place which is a Bivona tracheostomy tube. No evidence of any air leak around the tube. This morning the patient is adequately sedated with propofol. He is calm and comfortable.. The patient grimaces to painful stimulation. Head exam was generally normal. There was no scleral icterus or corneal arcus. Mucous membranes were moist. Neck was supple and without jugular venous distension, thyromegaly, or carotid bruits. Carotids were easily palpable bilaterally. There was no adenopathy. The patient has a tracheostomy tube in place. Lungs sounds are diminished bilaterally and the patient is a left sided chest tube in place. Chest tube is in a good location. Breath sounds are slightly diminished in left lung base compared to the right. Cardiac exam revealed the PMI to be normally situated and sized. The rhythm was irregular and no extrasystoles were noted during several minutes of auscultation. The patient is currently in atrial fibrillation. He is back and forth between atrial fibrillation and normal sinus rhythm. The first and second heart sounds were normal and physiologic splitting of the second heart sound was noted. There were no murmurs, rubs, clicks, or gallops. Abdomen is soft and nontender. The patient has a mid abdominal scar which is dry clean and intact. A surgical scar/wound is dry clean and intact. No direct distention. No rebound distention. No guarding. Bowel sounds are hypoactive at this point in time. Examination of the extremities revealed easily palpable radial, femoral and pedal pulses. There was no cyanosis, clubbing and there is development of significant edema in all 4 extremities and the patient also has scrotal edema. He continues to have significant amount of edema in all 4 extremities. Examination of the skin revealed no evidence of significant rashes, suspicious appearing nevi or other concerning lesions. Abdominal wound site is dry clean and intact. Neurologic the patient is opening his eyes spontaneously. He is encephalopathic. He is not following any commands. He tries to move his extremities. He tries to raise his head of the bed.. He is opening up his eyes spontaneously. He is grimacing. He is responding to painful stimulation. Asynchronous with a mechanical ventilator. The patient does not follow any commands. He grimaces to painful stimulation.. Currently he is well sedated. Pupils are equal and reactive to light. No signs of any head trauma. No nystagmus. No clonus. No Babinski. - Labs CBC & Chem 7: 03/10/20 06:30 03/10/20 06:30 Labs: Abnormal Lab Results - Last 24 Hours (Table) 03/09/20 03/09/20 03/09/20 Range/Units 04:00 11:31 18:30 WBC (3.8-10.6) k/uL RBC (4.30-5.90) m/uL Hgb (13.0-17.5) gm/dL Hct (39.0-53.0) % RDW (11.5-15.5) % Neutrophils # (Manual) (1.3-7.7) k/uL Monocytes # (Manual) (0-1.0) k/uL Eosinophils # (Manual) (0-0.7) k/uL Metamyelocytes # (Man) (0) k/uL Myelocytes # (Manual) (0) k/uL Nucleated RBCs (0-0) /100 WBC ABG pO2 (83-108) mmHg ABG Total CO2 (19-24) mmol/L ABG O2 Saturation (94-97) % Sodium (137-145) mmol/L BUN (9-20) mg/dL Creatinine (0.66-1.25) mg/dL Glucose (74-99) mg/dL POC Glucose (mg/dL) 117 H 130 H (75-99) mg/dL Calcium (8.4-10.2) mg/dL AST (17-59) U/L ALT (4-49) U/L Alkaline Phosphatase (38-126) U/L Total Protein (6.3-8.2) g/dL Albumin (3.5-5.0) g/dL Procalcitonin 4.50 H (0.02-0.09) ng/mL 03/09/20 03/10/20 03/10/20 Range/Units 23:58 05:18 05:48 WBC (3.8-10.6) k/uL RBC (4.30-5.90) m/uL Hgb (13.0-17.5) gm/dL Hct (39.0-53.0) % RDW (11.5-15.5) % Neutrophils # (Manual) (1.3-7.7) k/uL Monocytes # (Manual) (0-1.0) k/uL Eosinophils # (Manual) (0-0.7) k/uL Metamyelocytes # (Man) (0) k/uL Myelocytes # (Manual) (0) k/uL Nucleated RBCs (0-0) /100 WBC ABG pO2 136 H (83-108) mmHg ABG Total CO2 25 H (19-24) mmol/L ABG O2 Saturation 99.0 H (94-97) % Sodium (137-145) mmol/L BUN (9-20) mg/dL Creatinine (0.66-1.25) mg/dL Glucose (74-99) mg/dL POC Glucose (mg/dL) 139 H 135 H (75-99) mg/dL Calcium (8.4-10.2) mg/dL AST (17-59) U/L ALT (4-49) U/L Alkaline Phosphatase (38-126) U/L Total Protein (6.3-8.2) g/dL Albumin (3.5-5.0) g/dL Procalcitonin (0.02-0.09) ng/mL 03/10/20 03/10/20 Range/Units 06:30 06:30 WBC 18.1 H (3.8-10.6) k/uL RBC 2.70 L (4.30-5.90) m/uL Hgb 7.8 L (13.0-17.5) gm/dL Hct 24.6 L (39.0-53.0) % RDW 19.4 H (11.5-15.5) % Neutrophils # (Manual) 12.60 H (1.3-7.7) k/uL Monocytes # (Manual) 2.35 H (0-1.0) k/uL Eosinophils # (Manual) 1.27 H (0-0.7) k/uL Metamyelocytes # (Man) 0.18 H (0) k/uL Myelocytes # (Manual) 0.36 H (0) k/uL Nucleated RBCs 26 H (0-0) /100 WBC ABG pO2 (83-108) mmHg ABG Total CO2 (19-24) mmol/L ABG O2 Saturation (94-97) % Sodium 136 L (137-145) mmol/L BUN 89 H (9-20) mg/dL Creatinine 4.19 H (0.66-1.25) mg/dL Glucose 121 H (74-99) mg/dL POC Glucose (mg/dL) (75-99) mg/dL Calcium 7.8 L (8.4-10.2) mg/dL AST 81 H (17-59) U/L ALT 124 H (4-49) U/L Alkaline Phosphatase 255 H (38-126) U/L Total Protein 4.7 L (6.3-8.2) g/dL Albumin 2.1 L (3.5-5.0) g/dL Procalcitonin (0.02-0.09) ng/mL Microbiology - Last 24 Hours (Table) 03/06/20 08:45 Blood Culture - Preliminary Blood No Growth after 96 hours 03/06/20 23:49 Gram Stain - Final Sputum Sputum Culture - Final Selina krusei Selina albicans 03/05/20 11:27 Blood Culture - Preliminary Blood No Growth after 96 hours 03/05/20 10:55 Blood Culture - Preliminary Blood No Growth after 96 hours Assessment and Plan Plan: 1 fall off a ladder with significant trauma to the chest and abdomen. The patient had sustained left-sided rib fractures, splenic rupture postsplenectomy, and a left-sided pneumothorax. 2 traumatic grade 3 laceration of the spleen along with hemoperitoneum and the patient is post splenectomy and the patient is postop day and the patient had the surgery on 02/17/2020. 3 traumatic left-sided rib fractures third drip through seventh rib along with a 30% left-sided pneumothorax post chest tube insertion with adequate expansion of the left lung. The left-sided chest tube was removed. 4 shock at the time of admission, essentially due to hemorrhagic shock, recovered 5 Acute kidney injury with massive fluid overload , and the patient is currently on hemodialysis receiving it almost on a daily basis with adequate improvement in his volume status. 6 acute ventilator-dependent respiratory failure, hypoxic, secondary to above. The patient's overall pulmonary status is stable. The patient is maintaining adequate oxygenation and ventilation. The chest x-ray findings are stable and the blood gases shows adequate oxygenation and ventilation. 7 chronic neck pain and the patient had been taken MS Contin on outpatient basis 15 mg twice a day 8 coronary artery disease with a previous bypass surgery 9 hyperlipidemia 10 BPH 11 delirium tremens/alcoholism 12 paroxysmal atrial fibrillation and the patient is currently in A. fib on oral amiodarone. 13 leukocytosis, secondary to C. diff colitis, and the white cell count is improving for today. The white cell count continues to improve and is down to 18.1. Protest on 11 is also dropping as the patient's C. diff colitis continue to improve and being treated adequately with a combination of Flagyl IV and oral vancomycin. 14 C. diff colitis currently on oral vancomycin and IV Flagyl., white cell count remains elevated . The patient is still having limited diarrhea. The patient on oral vancomycin and Flagyl. 15 anemia, multifactorial, chronic, hemoglobin is stable 16, acute hepatic injury, shock liver with LFTs are essentially improving for now. No significant coagulopathy. Plan Continue ventilator support Keep the patient off Precedex Continue with MS Contin orally along with Seroquel 100 mg twice a day. Avoid any form of sedative medications being a benzodiazepine or Haldol or Precedex f or now. Complete dialysis Monitor mental status and the patient continues to be encephalopathic although I feel that there is some gradual improvement in his level of alertness. Continue oral vancomycin regarding C. diff colitis and the patient is on Flagyl Repeat pro calcitonin level show improvement in the levels We'll continue to follow. The patient is critically ill, and the patient will monitored very closely in the ICU. This is a critically care evaluation that was on a more than 30 minutes. Time with Patient: Greater than 30
[2020-03-10 12:06] LABS: Glucose,Whole Blood 143 mg/dL (75-99)
--- NOTE | 2020-03-10 14:44 | PN ---
PROGRESS NOTE A 70-year-old gentleman who was admitted to the hospital following a fall with splenic rupture and has had paroxysmal episodes of atrial fibrillation. He is also anemic. The lowest hemoglobin was 6.5. He developed renal failure and is currently on vent requiring respiratory failure, still appears confused and somewhat agitated. On exam today, he is in atrial fibrillation with a heart rate of 120 beats per minute. Blood pressure is 140/78, respiratory rate is 18. Chest exam reveals diminished air entry at the bases. Heart exam reveals first and second heart sounds, irregular rhythm. No murmur. Abdomen is soft. Exam of the extremities reveals trace edema. Peripheral pulses are felt. LABS: Show a hemoglobin of 7.8, potassium is 4.7, BUN is 89, creatinine is 4.1. ASSESSMENT: 1. Persistent atrial fibrillation with poorly-controlled ventricular rate. 2. Status post fall and splenic rupture. 3. Anemia. PLAN: I will start him on a small dose of Cardizem, continue the amiodarone. He is not on anticoagulation because of concerns above bleeding. MMODL / IJN: [id number] /
--- NOTE | 2020-03-10 15:50 | PN ---
PROGRESS NOTE DATE OF SERVICE: 03/10/2020 This 70-year-old gentleman who was admitted with a fall and significant traumatic lacerations of spleen with splenectomy. The patient also had rib fractures. The patient is mechanically intubated. The patient has tracheostomy at this time. The patient has also had renal failure. Patient having hemodialysis, 4 L have been removed. The patient is on Cardizem drip at this time. The lactic acid is elevated on admission and the white count is elevated at 18.1. Patient had elevated white count elevated to 50.6 indicating a leukemoid reaction. The LFTs is also elevated. The patient has multiple other medical issues. PAST MEDICAL HISTORY: Reviewed. REVIEW OF SYSTEMS: Could not be taken, the patient mechanically intubated. CURRENT MEDICATIONS: Reviewed and include: 1. Tylenol. 2. DuoNeb. 3. Cordarone. 4. Eliquis. 5. PhosLo. 6. Peridex. 7. Ancef. 8. Cardizem. 9. Proscar. 10.Fluconazole. 11.Haldol. 12.NovoLog. 13.Morphine. 14.Seroquel. 15.Sodium bicarb. 16.Flomax. PHYSICAL EXAMINATION: Patient is mechanically sedated, pulse 98, [place] [address], respiration 18, temperature is 98.2, pulse ox 97% on 40% mechanical ventilation. Vent settings are noted. HEENT: Oral mucosa moist. NECK: No jugular venous distension. CARDIOVASCULAR SYSTEM S1, S2, muffled. RESPIRATION: A few scattered rhonchi, no crackles. ABDOMEN: Soft, obese. LEGS: No edema, no swelling. NERVOUS SYSTEM: No focal deficits. LABS: WBC 18.2, hemoglobin is 7.8, otherwise sodium 136, creatinine is 4.19. The bilirubin is 1.2, AST, ALT are improving, still elevated. Procalcitonin is 4.50. ASSESSMENT: 1. Status post fall and multiple traumatic injuries chest and abdomen. 2. Status post laceration of the spleen with hemoperitoneum, status post splenectomy. 3. Acute hypoxic respiratory on mechanical ventilation. 4. Status post tracheostomy. 5. Change in mental status, metabolic encephalopathy, multifactorial. 6. Selina from the sputum. 7. Left-sided rib fracture fractures from third to sixth ribs. 8. Left-sided pneumothorax and chest tube insertion. 9. Elevated WBC with leukemoid reaction. 10.Acute hemorrhagic shock present on admission. 11.Acute kidney injury secondary rhabdomyolysis, multiple factors on hemodialysis. 12.Acute Clostridium difficile colitis. 13.Chronic neck pain infusion. 14.History of CAD, CABG. 15.Hyperlipidemia. 16.History of benign prostatic hypertrophy. 17.Paroxysmal atrial fibrillation on Cardizem, currently. 18.Acute liver injury, possibly shocked liver. 19.FULL CODE. 20.Obesity with body mass index of 33.3. RECOMMENDATION AND DISCUSSION: In this 70-year-old gentleman who presented with multiple complex medical issues, will monitor the patient closely. Continue with the current management and continue with symptomatic treatment. Continue with p.o. amiodarone and Eliquis. Otherwise, I would also recommend follow the patient closely. Continue with empiric antifungals and antibiotics. Otherwise, will continue to monitor. Check for COVID if test has not been done. Otherwise, closely follow with multiple consultants. Prognosis guarded because of the multiple complex medical issues. The procalcitonin is still elevated. Further recommendations to follow. MMODL / IJN: [id number] /
[2020-03-10 17:00] LABS: Glucose,Whole Blood 112 mg/dL (75-99)
--- NOTE | 2020-03-10 17:20 | PN ---
PROGRESS NOTE DATE OF SERVICE: 03/10/2020 REASON FOR FOLLOWUP: 1. C difficile colitis. 2. Possible oropharyngeal candidiasis. INTERVAL HISTORY: The patient is currently afebrile. The patient is hemodynamically stable, not on any pressor support. FiO2 is currently at 40%. has been cut back. The patient did tolerate his tube feed and no worsening diarrhea has been reported by the nursing staff. PHYSICAL EXAMINATION: Blood pressure 124/70 with a pulse of 87, temperature 98.3. He is 97% on 40% FiO2. General description is an elderly male lying in bed in no distress. RESPIRATORY SYSTEM: Unlabored breathing with decreased breath sounds at the base. No wheeze. HEART: S1, S2. Regular rate and rhythm. ABDOMEN: Soft. No tenderness. LABS: Hemoglobin 7.8, white count 18.1. BUN of 89, creatinine is 4.19. DIAGNOSTIC IMPRESSION AND PLAN: Patient with leukocytosis which is multifactorial in this patient who did have confirmed Clostridium difficile colitis and did have evidence of colitis on the CT. Also with a possible component of oropharyngeal candidiasis. He was started on Diflucan yesterday; to continue in addition to the vancomycin and Flagyl, as white count is showing a downward trend. We will monitor his clinical course closely. MMODL / IJN: [id number] /
[2020-03-10] MEDS: FINASTERIDE 5 MG TAB PO SCH (21:37)
[2020-03-11] MEDS: TAMSULOSIN 0.4 MG CAP.ER.24H PO SCH (00:30)
[2020-03-11] MEDS: INSULIN ASPART (NovoLOG) 100 UNIT/ML VIAL SQ SCH ×4 (00:30→18:44)
[2020-03-11] MEDS: LACTATED RINGERS 1,000 ML IV SCH (00:31)
[2020-03-11] MEDS: MORPHINE ORAL SOLN 10 MG/5 ML CUP PO SCH ×3 (00:31→16:55)
[2020-03-11] MEDS: metroNIDAZOLE-NS PMX 500 MG in SALINE 1 100ML.BAG IVPB SCH ×3 (01:21→16:45)
[2020-03-11] MEDS: VANCOMYCIN ORAL SOLUTION 250 MG/5 ML BOTTLE PO SCH ×4 (03:21→18:45)
[2020-03-11] MEDS: IPRATROPIUM-ALBUTEROL 3 ML NEB INHALATION SCH ×5 (04:10→18:39)
[2020-03-11 05:40] LABS: ABG Base Excess 1.7 mmol/L; ABG HCO3 25 mmol/L (21-25); ABG Oxygen Saturation 98.6 % (94-97); ABG PCO2 34 mmHg (35-45); ABG PH 7.48 (7.35-7.45); ABG PO2 113 mmHg (83-108); ABG TCO2 26 mmol/L (19-24); Allen Test Performed? Yes
[2020-03-11] MEDS: NOREPINEPHRINE 32 MG in SODIUM CHLORIDE 0.9% 218 ML IV SCH (06:29)
[2020-03-11 07:11] LABS: Anisocytosis Slight; Basophils # (A) 0.1 k/uL (0-0.2); Basophils % (A) 1 %; Eosinophils # (A) 0.5 k/uL (0-0.7); Eosinophils % (A) 3 %; HCT 25.9 % (39.0-53.0); HGB 7.7 gm/dL (13.0-17.5); Hypochromasia Marked; Lymphocytes # (A) 1.9 k/uL (1.0-4.8); Lymphocytes % (A) 10 %; MCH 27.6 pg (25.0-35.0); MCHC 29.9 g/dL (31.0-37.0); MCV 92.2 fL (80.0-100.0); Macrocytosis Slight; Mean Platelet Volume 10.3; Monocytes # (A) 2.1 k/uL (0-1.0); Monocytes % (A) 11 %; Neutrophils # (A) 13.5 k/uL (1.3-7.7); Neutrophils % (A) 71 %; Platelet Count 302 k/uL (150-450); Poikilocytosis Slight; RBC 2.81 m/uL (4.30-5.90); RDW 19.5 % (11.5-15.5); WBC 18.9 k/uL (3.8-10.6)
[2020-03-11 07:29] LABS: Albumin 2.2 g/dL (3.5-5.0); Calcium 7.9 mg/dL (8.4-10.2); Potassium 4.4 mmol/L (3.5-5.1); Total Bilirubin 1.1 mg/dL (0.2-1.3); Total Protein 4.8 g/dL (6.3-8.2)
--- NOTE | 2020-03-11 08:29 | XR ---
EXAMINATION TYPE: XR chest 1V portable DATE OF EXAM: 03/11/2020 COMPARISON: 03/10/2020 INDICATION: Tube placement difficulty breathing TECHNIQUE: Single frontal view of the chest is obtained. FINDINGS: The heart size is mildly prominent. The pulmonary vasculature is upper limits of normal. Diffuse mild increased lung markings are present. Small infiltrate is at the left costophrenic angle. Small moderate left pleural effusion may be present. Tracheostomy tube is in the midline with the tip above the rony. Nasogastric tube transverses the t horax the tip in the left upper quadrant of the abdomen. Sternotomy wires are in the midline. IMPRESSION: 1. Mild diffuse increased lung markings, improved from prior study. Other more focal infiltrate at th e left costophrenic angle remains present. 2. Small left pleural effusion. 3. Mild cardiomegaly. 4. Lines and catheters discussed above.
[2020-03-11] MEDS: CALCIUM ACETATE 667 MG TAB PO SCH ×3 (09:04→16:45)
[2020-03-11] MEDS: CHLORHEXIDINE GLUCONATE 15 ML CUP MUCOUS MEM SCH (09:13)
[2020-03-11] MEDS: THIAMINE 100 MG TAB PO SCH (09:14)
[2020-03-11] MEDS: APIXABAN 2.5 MG TABLET PO SCH (09:14)
[2020-03-11] MEDS: SODIUM BICARBONATE TAB 650 MG TAB PO SCH ×2 (09:14→16:45)
[2020-03-11] MEDS: FLUCONAZOLE IN NACL,ISO-OSM 200 MG in SALINE 1 100ML.BAG IVPB SCH (09:17)
[2020-03-11] MEDS: QUEtiapine 100 MG TAB PO SCH (09:17)
[2020-03-11] MEDS: AMIODARONE 200 MG TAB PO SCH (09:17)
[2020-03-11] MEDS: PANTOPRAZOLE 40 MG/10 ML VIAL IVP SCH (09:17)
[2020-03-11 11:37] LABS: Glucose,Whole Blood 118 mg/dL (75-99)
--- NOTE | 2020-03-11 12:01 | PN ---
PROGRESS NOTE Tejinder is 70-year-old gentleman who was admitted to the hospital following a fall with splenic rupture. Nothing has changed since yesterday. He still remains on vent with episodes of atrial fibrillation. His heart rate is fairly well controlled on intravenous Cardizem at 5 mg. We have still opted not to give him any anticoagulation at this time. On exam, patient is vented, receiving dialysis, is agitated at he usually is. On exam, heart rate is 108 beats per minute. Blood pressure is 140/70, respiratory rate is 18. There is no jugular venous distention. Chest exam reveals good air entry bilaterally. Heart exam reveals first and second heart sounds. No gallop. Exam of extremities did not reveal any edema. Peripheral pulses are felt. LABS: Show a hemoglobin of 7.7, platelet count is 302, potassium is 4.4, BUN is 82, creatinine is 3.6. ASSESSMENT: Persistent atrial fibrillation with controlled ventricular rate. PLAN: Continue the amiodarone and Cardizem. MMODL / IJN: [id number] /
--- NOTE | 2020-03-11 12:28 | P.PN ---
Subjective Progress Note Date: 03/11/20 This is a 69-year-old male patient who was working on his gutters when he fell off a 15 foot ladder. This was unwitnessed. He end up calling his who in turn called EMS and the patient was brought in to the emergency department. Upon arrival, the patient was hypotensive and he was in shock. The patient initial chest x-ray showed several left-sided fractures and small amount of subcutaneous air in addition to a left-sided pneumothorax. The x-ray of the pelvis showed no evidence of any fracture or dislocation. The CAT scan of the brain showed age-related atrophy and chronic small vessel ischemic changes without any acute intracranial process. CAT scan of cervical spine showed no acute abnormalities. On and has Been of the cervical spine was done and the bone and soft tissue windows showed no acute abnormalities. There was no evidence of any fracture. Along with multiple left-sided rib fractures third extending to the seventh rib. There was also spending the sedation with estima daxa grade 3 injury the patient. The patient's hemoglobin dropped to 10.5. The patient received a total of 2 L of IV fluid and 40 minutes of packed RBC. Morning hemoglobin today is At 13.4. The patient was taken to the operating room yesterday. The patient underwent a left-sided chest tube insertion. The patient also had splenectomy done and following that the patient was kept intubated on a mechanical ventilator and he was transferred to the intensive care unit. Note that the patient takes morphine outpatient basis and he has chronic pain and chronic narcotic requirements and on outpatient basis he takes morphine sulfate in the form of MS Contin 50 mg every 12 hours. Overnight, the patient was intubated on mechanical ventilator. He was sedated with a combination of propofol and he was also placed on morphine drip after being given several boluses control his pain. This morning, Profore is running at 70 mg per KG per minute. Morphine is running at 8 mg an hour. The patient is on normal saline at rate of 85 mL an hour. The patient has a left sided chest tube. Total amount of output is in order 110 mL of serosanguineous material without evidence of any air leak. The ventilator setting shows an assist- control mode rate of 20 with a tidal volume of 500 and FiO2 of 40% with a PEEP of 5. The patient's FiO2 is down to 40% overnight. The morning blood gases showed a pH of 7.4 with a pCO2 of 37 and pO2 of 121. The chest x-ray from this morning shows that the patient has an indwelling left-sided chest tube without any signs or pneumothorax. There is also a basilar pleural-based opacity along with multiple left-sided rib fractures and ET tube is in a good location. He is at approximately slightly swollen probably related to an infiltrated IV. He did not require any pressors. He remains hemodynamically stable. Lactic acid remains slightly elevated at 2.9 On 03/04/2020, the patient is being seen for a follow-up. The patient this morning is sedated with propofol at 50 mg per KG per minute. The patient is posterior Tibial Insertion. He Has a Bivona Tracheostomy Tube in Place. The Patient Is on a Mechanical Ventilator on Assist Control Mode at the Rate of 20 with a Tidal Volume of 500 and FiO2 of 50% with a PEEP of 10. The Blood Gases from Today Showed a pH of 7.33 with a pCO2 of 31 and pO2 of 140 and this was on FiO2 of 50%. Chest X-Ray Still Showing Bilateral Pulmonary Infiltrates That Are Rather Diffuse. The Previous Bronchoscopy and the bronchioloalveolar lavage showed no microbial growth. Prior to that a sputum sample that was done on 02/27/2020 showed Selina albicans and a sputum sample from 02/22/2020 showed Selina albicans and Selina Krusei. The patient was treated with Eraxis and he completed the course of antibiotics. He was also on IV Zosyn since admission. Antibiotics were discontinued and the patient developed C. diff colitis that was diagnosed on 03/02/2020. He was having significant diarrhea which essentially slowed down as the patient was started on oral vancomycin to 50 mg orally every 6 hours. The abdominal wound is dry clean and intact. No abdominal distention. Urine output is diminished and the patient is producing somewhere between 10-20 mL an hour of urine output. His any significant fluid overload including significant edema in all 4 extremities and scrotal edema. There is also some a bdominal wall edema. Surgical wound site is dry clean and intact. There is no signs of any wound infection. The patient is tolerating tube feeds and he is on vital high protein at the rate of 30 mL an hour. LFTs are on the rise. The creatinine is on the resident's currently up to 4.4 on the sodium level is down to 129 and a potassium level is at 5.7. This was discussed with nephrology and the patient is going to initiate hemodialysis today. Mental status is not appropriate still. As part of further investigation, the patient underwent another CAT scan of the brain on 02/27/2020 this was negative for any acute abnormalities and the patient had some new partial investigation of the shivani ateral mastoid air cells. A lumbar puncture was also done and the patient was found to have CSF protein of 50, no nucleated white cells, 17 RBCs and glucose was 93. Cultures were negative. On 03/05/2020, the patient is being seen in follow-up. Mother the patient was started on hemodialysis yesterday as the patient was having significant amount of fluid overload and the potassium was in the rise. Just about while going on dialysis, the patient developed heart block and this was a high-grade AV block with hemodynamic instability and hypotension. Immediately, the patient was given calcium chloride and sodium bicarb pushes. His condition was stabilized. He was started on pressors and following that his cardiac rhythm normalizes back to normal sinus rhythm. He underwent hemodialysis yesterday with ultrafiltration and total of 3 L of fluid was removed. Nevertheless, the patient continues to be significant fluid overload. This morning he remains on propofol at 50 mg per KG per minute. He is on levo fed at 0.03 g per KG per minute. He is on normal saline at 50 mL an hour. He remains on a mechanical ventilator. Earlier this morning, chest x-ray was done that showed improvement by the pulmonary infiltrates. The patient had a assist-control mode of ventilation at the rate of 30 with a tidal volume of 550 and FiO2 of 50% with a PEEP of 10. The blood gas showed a pH of 7.44 with episodes of 28 and pO2 148. The patient is making minimal amount of urine output. Hemoglobin this morning was at 6.5 without evidence of any GI bleed and the patient was given a unit of packed RBC. He is receiving Nepro as enteral feeding for nutritional support. Abdomen is slightly distended. The patient has no significant residuals and is producing adequate amount of bowel movement activity. His white cell count still elevated at 42 related to C. diff colitis. Abdominal wound is dry clean and intact. Less of the cultures were all negative for now. 03/06/20202019, the patient is being seen for a follow-up in the intensive care unit. I elected discussion with the patient's family. I met the daughters and also did a conference call with one of the daughters and we discussed the patient's condition at length and I updated them on his condition. Upon family's request, I initiated the transfer to [facility]. I had a discussion with Dr. Caraballo, trauma surgeon at [facility] who so no need for this patient to be transferred as the medical management that we have offered to this patient has been optimal and up to standard. In summary, today's evaluation, the patient is on a low dose of propofol running between 15 and 30 mg per KG per minute. He grimaces to painful stimulation. He is not following commands. He was given another session of dialysis this morning and the patient's blood pressure slightly dropped during hemodialysis and he is being supported with norepinephrine infusion for blood pressure support. The goal is to remove around 3 L of fluid in addition to hemodialysis. The patient is currently on assist control mode of ventilation at the tidal volume of 500, FiO2 of 40% with a PEEP of 5 and a rate of 30. The blood gases showed a pH of 7.45 with a pCO2 of 31 and pO2 of 84. Chest x-ray still unchanged compared to yesterday with bilateral pulmonary infiltrates. Take estimated to is in a good location and the patient has no significant air leaks. LFTs are in the decline as the patient has been recovering from a shock liver. Urine output is minimal and the patient is undergoing hemodialysis. Normal saline running at 20 mL an hour and the patient on Nepro at the rate of 30 mL an hour. Creatinine is up to 4.2. I'm a bit concerned of the ongoing elevation of the white cell. I initially attributed this to C. diff colitis. The patient was placed on oral vancomycin. Nevertheless, the patient continues to have elevated. Discussed the case with the general surgery. I'm going to obtain a CAT scan of the abdomen and pelvis. I'm also going to obtain a set of blood cultures. The patient does have some ongoing bandemia which in the order of 31%. Note that he is tolerating his enteral feeding for nutritional support. He is on oral vancomycin to 50 mg by mouth every 6 hours. He is cardiac rhythm is atrial fibrillation. Note that back and forth is going into episodes of atrial fibrillation. For instance, yesterday with sinus. This morning he is in atrial fibrillation with a controlled rate. No anticoagulants have been utilized. He is on Lovenox 30 mg subcu every 24 hours. This is being administered for DVT prophylaxis. 03/07/2020, I'm seeing this patient for a follow-up. On today's evaluation, the patient is sedated with Precedex. He gradually arouses while off Precedex. Nevertheless, he has not followed any commands.. He gets a bit restless and agitated and his blood pressure goes up and based on that we have to make titration on the Precedex infusion. Earlier this morning he was on 0.7 g per KG per minute. He is on mechanical ventilator. He essentially on the same mode of respirator on assist control mode at the rate of 30 with a tidal volume of 500 and FiO2 of 40% with a PEEP of 8. Morning blood gases showed a pH of 7.46 with a pCO2 of 30 and pO2 of 88. The patient essentially riding the mechanical ventilator and based on that the necessity ventilator changes were done and dropped a respiratory rate down to 22 and I dropped a PEEP down to 6. Chest x- ray is unchanged. The there was concern of his underlying colitis knowing that his white cell count was still elevated. The patient underwent a CAT scan of the abdomen and pelvis yesterday and the CAT scan showed some increased abdominal ascites, wall thickening of the left colon and rectosigmoid colon which is consistent with underlying colitis. He remains on oral vancomycin 5 mg 4 times a day. He is also on IV Flagyl for now and this was admitted by infectious disease. White cell count elevated at 50. The patient is afebrile. The patient is tolerating his enteral feeding. He did have a bowel movement yesterday. No diarrhea. Surgical wound site is dry clean and intact and the hemoglobin stable at 7.1. His bands are down to 8%. The patient will not have dialysis today. His BUN is 83 with a creatinine of 4.0. Rest of the electrodes are stable. Shock liver is improving and the AST is down to 70 for ALT is down to 377 and a total protein is at 4.5. Alkaline phosphatase is 259. He continues to have edema in all 4 extremities. He had jybj-fi-mcox dialysis 3 days. The pro-calcitonin is elevated probably related to his underlying C. diff colitis. Blood cultures of been all negative. 03/08/2020 and seeing the patient for a follow-up. The patient has stayed on Precedex throughout the day yesterday and this morning he remains on Precedex at 0.7 g per KG per minute. Nevertheless, early in the morning hours, the patient became quite restless. Patient received a total of 4 L of morphine and 2 mg of Haldol. I saw the patient in morning. The patient was an assist-control mode of ventilation. I switched him to a VC plus mode at a tidal volume of 500 with a rate of 22 and I kept the PEEP at 4 with an FiO2 of 40%. The patient seemed to be much more relaxed on this current mode of ventilation. He was started on hemodialysis. His heart rate is in between atrial fibrillation normal sinus rhythm. Nevertheless, the patient has not required any Pressors while on hemodialysis. The patient opens up his eyes. He looks around. He does not follow any commands. At times he gets a bit restless and tachypneic. I noted that the patient's serum bicarbonate of 19. I offered some additional bicarb to improved underlying metabolic acidosis. My concern was to improve the patient's overall respiratory status. The patient Had a chest x-ray that was quite stable compared to yesterday without any major interval change. Tracheostomy tube is in a good location. The blood gas showed a pH of 7.41 with a pCO2 of 32 and pO2 of 102. The white cell count is on the decline as the patient is on a combination of IV Flagyl and oral vancomycin. Focused on was quite elevated due to C. diff colitis. No abdominal distention. Still having significant amount of third spacing and edema in the patient's overall goal is to ultrafiltrate at least 3 L on today's hemodialysis session. He has a triple-lumen catheter in his left groin and Artline his left groin. His dialysis cath is present in the right groin. No fever. No chills. No other significant events overnight. 03/09/2020, the patient is being seen for a follow-up. He remains on a canker ventilator. Remains on assist control mode at the rate of 22 with a tidal volume of 500 and a PEEP of 6 and FiO2 of 40%. Chest x-ray remains unchanged. Morning blood cultures from the patient's 7.39 with a pCO2 of 39 and pO2 of 102. No significant rest or secretions. The patient's tracheostomy tube in place. In terms of neurologic status, the patient is on Precedex at 0.4 g per KG. We're hoping to proceed with another session of dialysis this morning and following that are going to do further weaning of the Precedex and continue evaluating his mental status. As stated earlier, the patient grimaces and opens eyes spontaneously. Nevertheless is not following any commands. He seems to be less agitated. Metabolically, he is improved. He was given bicarb pushes yesterday and the serum bicarbs up to 25. His breathing is much more comfortable. LFTs continued to improve. Cardiac rhythm is back to sinus. White cell count is down to 25. Tolerating his tube feeds. Surgical wounds are dry clean and intact. Still edematous in all 4 extremities. The patient underwent a total of 3 L of ultrafiltration yesterday and we are hoping for some more for today. The triple-lumen catheter and Artline from the left femoral vein and artery were removed and the patient was given a Artline in the left upper extremity. No fever. No chills. No open wounds or sores. Extensive edema in all 4 extremities and extensive scrotal edema. 03/10/2020, the patient is off Precedex. The patient is moving all 4 extremities. His grimacing. Sometimes he gets restless. He is still not following any commands. He will be started on hemodialysis with a goal of 3 L of ultrafiltration. His volume status is improving as the patient is receiving daily dialysis sessions. He remains on the same ventilator setting. He is on a tidal volume of 500 with a PEEP of 5 and FiO2 of 40% and a respiratory rate of 22. Chest x-ray is unchanged. Blood gas shows a pH of 7.43 with a pCO2 of 36 and pO2 of 136. The patient is synchronous with the mechanical ventilator. He shock liver continues to improve. AST and ALT continue to decline. He is receiving enteral feeding for nutritional support and white cell count is down to 18.1. He was stable at 7.8. The patient continues to have episodes of atrial fibrillation. Rate is slightly tachycardic today. May need to be started on Cardizem drip for rate control and the patient be also started on Eliquis is along for medical record notes regarding his proximal atrial fibrillation. The patient has a clear surgical wound site. He is off Precedex mental status is being monitored very closely. on 03/11/2020, the patient is still being treated in intensive care unit. Mental status continues to be an ongoing issue. I daily basis he is getting dialysis and would feel that he is much more awake. However, is not still tracking or following any commands. He opens his eyes. He grimaces. He looks around. He moves all 4 extremities. At times he gets agitated. Agitation occurs mainly when he is stimulated. No seizure activity. His neurologic exam is nonfocal. He is a patient of mechanical ventilated on today's evaluation I switched him to a pressure support mode at a pressure support of 20 with a PEEP of 5 he was able to breathe spontaneously at that setting. This will be done on a trial basis. He remains on a mechanical ventilator on VC mode and the patient's earlier vent settings with a PEEP of 5 with an FiO2 of 40% and tidal volume of 500 and the rate of 22. The patient's pH from this morning was 7.48 with a pCO2 of 34 and pO2 113. Chest x-ray is unchanged. In terms of dialysis, he continues to receive daily dialysis and his STATUS continues to improve. Upper and lower extremity edema and the scrotal edema improved. No nitrite imbalance. A total of 3.5 L of ultrafiltration was done yesterday. The patient is afebrile. White cell count is at 18. Progesterone level is improving. He is receiving enteral feeding for nutritional support. Surgical wound site is dry clean and intact. He has a PICC line and has also an art line in his radial artery. LFTs continued to improve. In terms of his cardiac issue, he is on no pressors. He is having episodes of atrial fibrillation. He was placed on Cardizem drip at lower rate of 5 mg an hour he is also on Eliquis for long-term and to coagulation. He remains on amiodarone. Cardizem is being titrated to maintain a heart rate of less than 100. No major significant events overnight. His urine output is still Objective - Vital Signs Vital signs: Vital Signs Temp 100.5 F H 03/11/20 08:00 Pulse 109 H 03/11/20 11:33 Resp 31 H 03/11/20 11:00 BP 139/73 03/11/20 11:00 Pulse Ox 95 03/11/20 11:00 Intake & Output 03/10/20 03/11/20 03/11/20 18:59 06:59 18:59 Intake Total 762 290 420 Output Total 4435 245 110 Balance -3673 45 310 Weight 94.3 kg 94.3 kg Intake: IV 332 140 200 Diltiazem 125 mg In 20 Sodium Chloride 0.9% 100 ml @ Per Protocol IV .Q0M BETTINA Rx#:[id number] Pressure bag 12 Sodium Chloride 0.9% 1, 220 140 80 000 ml @ 20 mls/hr IV . Q24H BETTINA Rx#:[id number] metroNIDAZOLE-NS PMX 500 100 100 mg In Saline 1 100ml.bag @ 100 mls/hr IVPB Q8HR BETTINA Rx#:[id number] Intake, IV Titration 100 100 Amount Fluconazole in NaCl,Iso- 100 100 Osm 200 mg In Saline 1 100ml.bag @ 100 mls/hr IVPB DAILY BETTINA Rx#: [id number] Tube Feeding 330 150 120 Output: Urine 435 245 110 Hemodialysis 4000 Other: Voiding Method Indwelling Catheter Indwelling Catheter ABP, PAP, CO, CI - Last Documented Arterial Blood Pressure 129/50 - Exam Gen. appearance the patient is currently off sedation has been off sedation for more than 48 hours.. The patient opens eyes spontaneously. At times he grimaces. At times he becomes tachypneic. He is not following any commands yet.. The patient has NG tube in place. The patient also has a tracheostomy tube in place which is a Bivona tracheostomy tube. No evidence of any air leak around the tube. This morning the patient is adequately sedated with propofol. He is calm and comfortable.. The patient grimaces to painful stimulation.we feel that the patient is becoming more active and awake. Nevertheless is still not tracking and he is not following any commands. Head exam was generally normal. There was no scleral icterus or corneal arcus. Mucous membranes were moist. Neck was supple and without jugular venous distension, thyromegaly, or carotid bruits. Carotids were easily palpable bilaterally. There was no adenopathy. The patient has a tracheostomy tube in place. Lungs sounds are diminished bilaterally and the patient is a left sided chest tube in place. Chest tube is in a good location. Breath sounds are slightly diminished in left lung base compared to the right. Cardiac exam revealed the PMI to be normally situated and sized. The rhythm was irregular and no extrasystoles were noted during several minutes of auscultation. The patient is currently in atrial fibrillation. He is back and forth between atrial fibrillation and normal sinus rhythm. The first and second heart sounds were normal and physiologic splitting of the second heart sound was noted. There were no murmurs, rubs, clicks, or gallops. Abdomen is soft and nontender. The patient has a mid abdominal scar which is dry clean and intact. A surgical scar/wound is dry clean and intact. No direct distention. No rebound distention. No guarding. Bowel sounds are hypoactive at this point in time. Examination of the extremities revealed easily palpable radial, femoral and pedal pulses. There was no cyanosis, clubbing and there is development of significant edema in all 4 extremities and the patient also has scrotal edema. He continues to have significant amount of edema in all 4 extremities. Examination of the skin revealed no evidence of significant rashes, suspicious appearing nevi or other concerning lesions. Abdominal wound site is dry clean and intact. Neurologic the patient is opening his eyes spontaneously. He is encephalopathic. He is not following any commands. He tries to move his extremities. He tries to raise his head of the bed.. He is opening up his eyes spontaneously. He is grimacing. He is responding to painful stimulation. Asynchronous with a mechanical ventilator. The patient does not follow any commands. He grimaces to painful stimulation.. Currently he is well sedated. Pupils are equal and reactive to light. No signs of any head trauma. No nystagmus. No clonus. No Babinski. - Labs CBC & Chem 7: 03/11/20 06:35 03/11/20 06:35 Labs: Abnormal Lab Results - Last 24 Hours (Table) 03/10/20 03/11/20 03/11/20 Range/Units 16:58 05:35 06:35 WBC 18.9 H (3.8-10.6) k/uL RBC 2.81 L (4.30-5.90) m/uL Hgb 7.7 L (13.0-17.5) gm/dL Hct 25.9 L (39.0-53.0) % MCHC 29.9 L (31.0-37.0) g/dL RDW 19.5 H (11.5-15.5) % Neutrophils # 13.5 H (1.3-7.7) k/uL Monocytes # 2.1 H (0-1.0) k/uL ABG pH 7.48 H (7.35-7.45) ABG pCO2 34 L (35-45) mmHg ABG pO2 113 H (83-108) mmHg ABG Total CO2 26 H (19-24) mmol/L ABG O2 Saturation 98.6 H (94-97) % Sodium (137-145) mmol/L BUN (9-20) mg/dL Creatinine (0.66-1.25) mg/dL Glucose (74-99) mg/dL POC Glucose (mg/dL) 112 H (75-99) mg/dL Calcium (8.4-10.2) mg/dL AST (17-59) U/L ALT (4-49) U/L Alkaline Phosphatase (38-126) U/L Total Protein (6.3-8.2) g/dL Albumin (3.5-5.0) g/dL 03/11/20 03/11/20 Range/Units 06:35 11:36 WBC (3.8-10.6) k/uL RBC (4.30-5.90) m/uL Hgb (13.0-17.5) gm/dL Hct (39.0-53.0) % MCHC (31.0-37.0) g/dL RDW (11.5-15.5) % Neutrophils # (1.3-7.7) k/uL Monocytes # (0-1.0) k/uL ABG pH (7.35-7.45) ABG pCO2 (35-45) mmHg ABG pO2 (83-108) mmHg ABG Total CO2 (19-24) mmol/L ABG O2 Saturation (94-97) % Sodium 136 L (137-145) mmol/L BUN 82 H (9-20) mg/dL Creatinine 3.67 H (0.66-1.25) mg/dL Glucose 131 H (74-99) mg/dL POC Glucose (mg/dL) 118 H (75-99) mg/dL Calcium 7.9 L (8.4-10.2) mg/dL AST 63 H (17-59) U/L ALT 90 H (4-49) U/L Alkaline Phosphatase 230 H (38-126) U/L Total Protein 4.8 L (6.3-8.2) g/dL Albumin 2.2 L (3.5-5.0) g/dL Microbiology - Last 24 Hours (Table) 03/06/20 08:45 Blood Culture - Preliminary Blood No Growth after 120 hours 03/05/20 11:27 Blood Culture - Preliminary Blood No Growth after 120 hours 03/05/20 10:55 Blood Culture - Preliminary Blood No Growth after 120 hours Assessment and Plan Plan: 1 fall off a ladder with significant trauma to the chest and abdomen. The patient had sustained left-sided rib fractures, splenic rupture postsplenectomy, and a left-sided pneumothorax. 2 traumatic grade 3 laceration of the spleen along with hemoperitoneum and the patient is post splenectomy and the patient is postop day and the patient had the surgery on 02/17/2020. 3 traumatic left-sided rib fractures third drip through seventh rib along with a 30% left-sided pneumothorax post chest tube insertion with adequate expansion of the left lung. The left-sided chest tube was removed. 4 shock at the time of admission, essentially due to hemorrhagic shock, recovered 5 Acute kidney injury with massive fluid overload , the urine output remains low and the patient is requiring daily dialysis and his volume status is obviously improving. No major electrodes imbalance at this point in time. 6 acute ventilator-dependent respiratory failure, hypoxic, secondary to above. The patient's overall pulmonary status is stable. The patient is maintaining adequate oxygenation and ventilation. The chest x-ray findings are stable and the blood gases shows adequate oxygenation and ventilation.the patient was an assist-control mode of ventilation. On today's evaluation he was given a trial with pressure support which she was able to tolerate without any major difficulties. 7 chronic neck pain and the patient had been taken MS Contin on outpatient basis 15 mg twice a day 8 coronary artery disease with a previous bypass surgery 9 hyperlipidemia 10 BPH 11 delirium tremens/alcoholism 12 paroxysmal atrial fibrillation and the patient is currently in A. fib on oral amiodarone. the patient was started on Eliquis for long-term articulation. The patient is also receiving Cardizem 5 mg an hour for rate control. 13 leukocytosis, secondary to C. diff colitis, and the white cell count is improving for today. The white cell count continues to improve and is down to 18.1. Protest on 11 is also dropping as the patient's C. diff colitis continue to improve and being treated adequately with a combination of Flagyl IV and oral vancomycin. 14 C. diff colitis currently on oral vancomycin and IV Flagyl., white cell count remains elevated . The patient is still having limited diarrhea. The patient on oral vancomycin and Flagyl. 15 anemia, multifactorial, chronic, hemoglobin is stable 16, acute hepatic injury, shock liver with LFTs are essentially improving for now. No significant coagulopathy. Plan Continue ventilator support we'll give the patient a trial a pressure support mode of ventilation with a pressure support of 20 and a PEEP of 5 and gradually wean down the pressure supp ort to maintain a tidal volume of 400 and the respiratory rate of less than 30 Keep the patient off Precedex Continue with MS Contin orally along with Seroquel 100 mg twice a day. Avoid any form of sedative medications being a benzodiazepine or Haldol or Precedex for now. Complete dialysisand the patient had an ultrafiltration of 3-1/2 L yesterday. Monitor mental status and the patient continues to be encephalopathic although I feel that there is some gradual improvement Peter on today's evaluation he seems to be much more alert yet he is not following commands yet. Monitor status continues to improve. Continue oral vancomycin regarding C. diff colitis and the patient is on Flagyl We'll continue to follow. The patient is critically ill, and the patient will monitored very closely in the ICU. This is a critically care evaluation that was on a more than 30 minutes. Time with Patient: Greater than 30
--- NOTE | 2020-03-11 13:06 | PN ---
PROGRESS NOTE DATE OF SERVICE: 03/11/2020 This is a 70-year-old gentleman who was admitted with a fall and significant traumatic lacerations and splenic lacerations, had a splenectomy. The patient also had multiple rib fractures. The patient is mechanically ventilated, intubated at this time. The patient had tracheostomy. The patient did not have the PEG tube, patient on hemodialysis, or acute renal failure. Continues on a daily basis. Patient was also on a Cardizem drip on and off, currently on a Cardizem drip for atrial fibrillation with fast ventricular rate. Lactic acid is elevated. The LFT is also elevated. Patient had leukemoid reaction, which is improving at this time. The patient is much more responsive at this time. The WBC 18.8 and hemoglobin 7.7, creatinine 3.67 today. Patient is closely monitored. PAST MEDICAL HISTORY: Reviewed. REVIEW OF SYSTEMS: Could not be taken, the patient mechanically intubated and sedated. CURRENT MEDICATIONS: 1. Tylenol. 2. DuoNeb. 3. Cordarone. 4. Eliquis. 5. PhosLo. 6. Peridex. 7. Ancef. 8. Diltiazem. 9. Proscar. 10.Fluconazole. 11.Haldol. 12.Lactated Ringer. 13.Morphine. 14.Narcan. 15.Norepinephrine. 16.Seroquel. 17.Vitamin B1. 18.Vancomycin. PHYSICAL EXAM: Patient is on mechanical ventilation, sedated, pulse 117, blood pressure is 139/70, respiration 31, temperature normal, pulse ox 94% on mechanical 40% FiO2. Vent settings are noted. HEENT: Normal, oral mucosa moist. NECK: Tracheostomy. CARDIOVASCULAR SYSTEM: S1, S2, muffled. RESPIRATION: Breath sounds diminsihed at the bases, bilateral scattered rhonchi, no crackles. ABDOMEN: Soft, obese, nontender, no mass palpable. LEGS: No edema, no swelling. NERVOUS SYSTEM: Patient is sedated. SKIN: No ulcer, rash. LABS: WBC 18, hemoglobin is 1.9. Other labs are noted. BG noted. ASSESSMENT: 1. Status post fall and multiple traumatic injuries in the chest and abdomen. 2. Status post splenic laceration, hemoperitoneum, status post splenectomy. 3. Acute hypoxic respiratory: Mechanical ventilation with prolonged mechanical condition. 4. Possible critical care polyneuropathy. 5. Status post tracheostomy. 6. Change in mental status, metabolic encephalopathy, multifactorial. 7. Selina from the sputum. 8. Left-sided rib fractures from third through sixth ribs. 9. Left-sided pneumothorax and chest tube insertion. 10.Increased WBC, leukemoid reaction with possible sepsis. 11.Acute hemorrhagic shock present on admission. 12.Acute kidney injury secondary to rhabdomyolysis, multiple factors on hemodialysis. 13.Acute C difficile colitis. 14.Chronic neck pain and fusion. 15.History of CAD, CABG. 16.Hyperlipidemia. 17.History of benign prostatic hypertrophy. 18.Paroxysmal atrial fibrillation on Cardizem. 19.Acute liver injury, possible shocked liver. 20.Obesity with body mass index of 33.3. 21.FULL CODE. RECOMMENDATION: Recommend to continue current management and continue with hemodialysis, monitor fluid, electrolyte balance closely. thank you I would also recommend possible PEG tube if it is okay with Dr. Royal. Otherwise, continue with the antifungals. Continue the rest of medications, PT, OT evaluation. Anticipate ECF rehab once the patient is extubated, but; however the prognosis is extremely guarded currently. Further recommendations to follow. MMODL / IJN: [id number] /
--- NOTE | 2020-03-11 13:41 | P.PN ---
Subjective Progress Note Date: 03/11/20 CHIEF COMPLAINT: Fall with Trauma HISTORY OF PRESENT ILLNESS: Patient seen with Dr. Ivy. This is a 69-year-old male who fell 15 feet off the top of the ladder. Patient's CAT scan was performed showing a large left pneumothorax as well as multiple rib fractures and hemoperitoneum and a ruptured spleen. Patient is status post splenectomy. Patient is status post tracheostomy placement due to his res piratory failure and unable to wean from vent. Patient remains in ICU and on vent. He is continued on daily dialysis. He is off of the Precedex. Patient started on Eliquis for anticoagulation for his atrial fibrillation PHYSICAL EXAM: VITAL SIGNS: Reviewed. GENERAL: Well-developed in no acute distress. HEENT: No sclera icterus. Extraocular movements grossly intact. Moist buccal mucosa. Head is atraumatic, normocephalic. Trach site clean dry and intact ABDOMEN: Soft. Nondistended. Incision site clean dry and intact NEUROLOGIC: Patient is sedated ASSESSMENT: 1. 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 2. Status post tracheostomy for respiratory failure 3. Status post fall off a ladder with, to chest and abdomen 4. Left-sided pneumothorax has chest tube in place 5. Multiple left-sided rib fractures 6. Alcohol intoxication 7. Acute hypoxic ventilatory dependent respiratory failure. 8. Chronic pain medication 9. Atrial fibrillation with rapid ventricular response 10. C. diff colitis 11. Acute kidney injury . Followed closely by nephrology. 12. Acute blood loss anemia status post blood transfusion PLAN: -Anticipating possible PEG tube placement next week with Dr. Ivy -Continue tube feedings -Continue ICU management -Continue oral vancomycin -Hemodialysis per nephrology -eloisax for DVT prophylaxis Physician Behavior Specialist note has been reviewed by physician. Signing provider agrees with the documented findings, assessment, and plan of care. Objective - Vital Signs Vital signs: Vital Signs Temp 100.7 F H 03/11/20 12:26 Pulse 96 03/11/20 13:00 Resp 21 03/11/20 13:00 BP 133/61 03/11/20 13:00 Pulse Ox 99 03/11/20 13:00 Intake & Output 03/10/20 03/11/20 03/11/20 18:59 06:59 18:59 Intake Total 762 290 520 Output Total 4402 644 4140 Balance -3673 45 -3620 Weight 94.3 kg 94.3 kg Intake: IV 332 140 240 Diltiazem 125 mg In 20 Sodium Chloride 0.9% 100 ml @ Per Protocol IV .Q0M BETTINA Rx#:[id number] Pressure bag 12 Sodium Chloride 0.9% 1, 220 140 120 000 ml @ 20 mls/hr IV . Q24H BETTINA Rx#:[id number] metroNIDAZOLE-NS PMX 500 100 100 mg In Saline 1 100ml.bag @ 100 mls/hr IVPB Q8HR BETTINA Rx#:[id number] Intake, IV Titration 100 100 Amount Fluconazole in NaCl,Iso- 100 100 Osm 200 mg In Saline 1 100ml.bag @ 100 mls/hr IVPB DAILY BETTINA Rx#: [id number] Tube Feeding 330 150 180 Output: Urine 435 245 140 Hemodialysis 4000 4000 Other: Voiding Method Indwelling Catheter Indwelling Catheter Indwelling Catheter ABP, PAP, CO, CI - Last Documented Arterial Blood Pressure 129/50 - Labs CBC & Chem 7: 03/11/20 06:35 03/11/20 06:35 Labs: Abnormal Lab Results - Last 24 Hours (Table) 03/10/20 03/11/20 03/11/20 Range/Units 16:58 05:35 06:35 WBC 18.9 H (3.8-10.6) k/uL RBC 2.81 L (4.30-5.90) m/uL Hgb 7.7 L (13.0-17.5) gm/dL Hct 25.9 L (39.0-53.0) % MCHC 29.9 L (31.0-37.0) g/dL RDW 19.5 H (11.5-15.5) % Neutrophils # 13.5 H (1.3-7.7) k/uL Monocytes # 2.1 H (0-1.0) k/uL ABG pH 7.48 H (7.35-7.45) ABG pCO2 34 L (35-45) mmHg ABG pO2 113 H (83-108) mmHg ABG Total CO2 26 H (19-24) mmol/L ABG O2 Saturation 98.6 H (94-97) % Sodium (137-145) mmol/L BUN (9-20) mg/dL Creatinine (0.66-1.25) mg/dL Glucose (74-99) mg/dL POC Glucose (mg/dL) 112 H (75-99) mg/dL Calcium (8.4-10.2) mg/dL AST (17-59) U/L ALT (4-49) U/L Alkaline Phosphatase (38-126) U/L Total Protein (6.3-8.2) g/dL Albumin (3.5-5.0) g/dL 03/11/20 03/11/20 Range/Units 06:35 11:36 WBC (3.8-10.6) k/uL RBC (4.30-5.90) m/uL Hgb (13.0-17.5) gm/dL Hct (39.0-53.0) % MCHC (31.0-37.0) g/dL RDW (11.5-15.5) % Neutrophils # (1.3-7.7) k/uL Monocytes # (0-1.0) k/uL ABG pH (7.35-7.45) ABG pCO2 (35-45) mmHg ABG pO2 (83-108) mmHg ABG Total CO2 (19-24) mmol/L ABG O2 Saturation (94-97) % Sodium 136 L (137-145) mmol/L BUN 82 H (9-20) mg/dL Creatinine 3.67 H (0.66-1.25) mg/dL Glucose 131 H (74-99) mg/dL POC Glucose (mg/dL) 118 H (75-99) mg/dL Calcium 7.9 L (8.4-10.2) mg/dL AST 63 H (17-59) U/L ALT 90 H (4-49) U/L Alkaline Phosphatase 230 H (38-126) U/L Total Protein 4.8 L (6.3-8.2) g/dL Albumin 2.2 L (3.5-5.0) g/dL Microbiology - Last 24 Hours (Table) 03/05/20 10:55 Blood Culture - Final Blood No Growth after 144 hours 03/06/20 08:45 Blood Culture - Preliminary Blood No Growth after 120 hours 03/05/20 11:27 Blood Culture - Preliminary Blood No Growth after 120 hours
--- NOTE | 2020-03-11 15:49 | PN ---
PROGRESS NOTE Patient is seen for followup for acute kidney injury. He is currently seen on hemodialysis. Patient is tolerating his treatment well. He remains on the vent. FiO2 is at 40%. Blood pressure 134/58, heart rate 101 per minute. Patient is maintained on Cardizem drip. He did have a temperature of 100.7 degrees Fahrenheit. This morning, blood pressure on examination was about 130/56, heart rate 100 per minute, temperature was 100.7 degrees Fahrenheit. Examination of the heart S1, S2. Examination of the lungs, bilateral breath sounds are heard. Abdomen is soft with severe scrotal edema and lower extremities shows significant edema bilaterally. FORESTRY ADVISER exam cannot be performed. Patient is not following commands. LABS: Show hemoglobin 7.7, sodium 136, potassium 4.4, chloride 101, BUN 82, serum creatinine 3.67. ASSESSMENT: 1. Acute kidney injury, hemodialysis dependent. Urine output has picked up. However, given the significant volume overload, we will continue with daily dialysis for now. Consult vascular for PermCath placement. 2. Severe volume overload, slowly improving. 3. Candidemia. 4. Hypoxic respiratory failure. The patient remains on the vent. He is status post trach and PEG. 5. Status post fall with rib fractures and laceration of the spleen with hemoperitoneum, status post splenectomy. 6. Hemorrhagic shock on initial admission, currently improved. 7. Clostridium difficile colitis with improved diarrhea. 8. Paroxysmal atrial fibrillation, maintained on Cardizem drip. PLAN: Continue daily dialysis mostly for volume overload. Continue to avoid nephrotoxic agents as patient's urine output has picked up and there may be some recovery of renal function. We will also proceed with vascular consult to place a PermCath. MMODL / IJN: [id number] /
[2020-03-11] MEDS: SODIUM CHLORIDE 0.9% 1,000 ML IV SCH (16:56)
[2020-03-11] MEDS: ACETAMINOPHEN TAB 325 MG TAB PO PRN (17:39)
[2020-03-11 18:34] LABS: Glucose,Whole Blood 145 mg/dL (75-99)
--- NOTE | 2020-03-11 20:08 | US ---
EXAMINATION TYPE: US venous doppler duplex UE LT DATE OF EXAM: 03/11/2020 COMPARISON: NONE CLINICAL HISTORY: swelling r/o DVT. Swelling in left arm. R/O DVT. Patient unable to give history. SIDE PERFORMED: Left Left Arm: ICU patient, exam limited. Limited access to scan axillary vein. No evidence of DVT in vein s imaged at this time within the left arm. PICC line visualized within left basilic vein. IMPRESSION: No evidence of deep vein thrombosis in the left arm.
--- NOTE | 2020-03-11 22:56 | PN ---
PROGRESS NOTE DATE OF SERVICE: 03/11/2020 REASON FOR FOLLOWUP: 1. C difficile colitis. 2. New fever. INTERVAL HISTORY: The patient did spike another fever of 101 degrees Fahrenheit this afternoon. The patient is hemodynamically stable, not on any pressor support. The patient's FiO2 is currently stable at 40%. Tolerating his tube feeds. No worsening diarrhea was reported by the nursing staff. PHYSICAL EXAMINATION: Blood pressure 106/45 with a pulse of 80, temperature 98.5. He is 97% on 40% FiO2. General description is an elderly male intubated on the vent. RESPIRATORY SYSTEM: Unlabored breathing with decreased breath sounds at the base. No wheeze. HEART: S1, S2. Regular rate and rhythm. ABDOMEN: Soft. No tenderness. LABS: Hemoglobin 7.6, white count 18.9, BUN of 82, creatinine 3.67. DIAGNOSTIC IMPRESSION AND PLAN: 1. Patient with Clostridium difficile colitis, for which the patient is currently covered with oral vancomycin. That will be continued along with Flagyl. 2. Patient with new fever; seems to have a problem with his left arm PICC line. A STAT ultrasound was done which came back negative for DVT. Blood culture has been done. We will add daptomycin while waiting for the culture to finalize. Continue with supportive care. MMODL / IJN: [id number] /
[2020-03-12] MEDS: APIXABAN 2.5 MG TABLET PO SCH ×3 (00:01→21:20)
[2020-03-12] MEDS: QUEtiapine 100 MG TAB PO SCH ×2 (00:01→21:20)
[2020-03-12] MEDS: AMIODARONE 200 MG TAB PO SCH ×3 (00:01→21:20)
[2020-03-12] MEDS: CHLORHEXIDINE GLUCONATE 15 ML CUP MUCOUS MEM SCH ×3 (00:01→21:19)
[2020-03-12] MEDS: TAMSULOSIN 0.4 MG CAP.ER.24H PO SCH ×2 (00:01→21:17)
[2020-03-12] MEDS: SODIUM BICARBONATE TAB 650 MG TAB PO SCH ×2 (00:01→10:51)
[2020-03-12] MEDS: FINASTERIDE 5 MG TAB PO SCH ×2 (00:01→21:20)
[2020-03-12] MEDS: metroNIDAZOLE-NS PMX 500 MG in SALINE 1 100ML.BAG IVPB SCH ×4 (00:02→23:33)
[2020-03-12] MEDS: MORPHINE ORAL SOLN 10 MG/5 ML CUP PO SCH ×4 (00:02→23:32)
[2020-03-12] MEDS: VANCOMYCIN ORAL SOLUTION 250 MG/5 ML BOTTLE PO SCH ×5 (00:03→23:50)
[2020-03-12] MEDS: DAPTOmycin 500 MG in SODIUM CHLORIDE 0.9% 50 ML IVPB SCH (00:03)
[2020-03-12 00:04] LABS: Glucose,Whole Blood 117 mg/dL (75-99)
[2020-03-12] MEDS: INSULIN ASPART (NovoLOG) 100 UNIT/ML VIAL SQ SCH ×5 (00:04→23:29)
[2020-03-12] MEDS: IPRATROPIUM-ALBUTEROL 3 ML NEB INHALATION SCH ×7 (00:07→23:15)
[2020-03-12 06:10] LABS: Glucose,Whole Blood 159 mg/dL (75-99)
[2020-03-12] MEDS: LACTATED RINGERS 1,000 ML IV SCH ×2 (07:19→23:41)
[2020-03-12] MEDS: NOREPINEPHRINE 32 MG in SODIUM CHLORIDE 0.9% 218 ML IV SCH (07:21)
[2020-03-12 08:32] LABS: Anisocytosis Slight; Basophils # (A) 0.2 k/uL (0-0.2); Basophils % (A) 1 %; Eosinophils # (A) 0.7 k/uL (0-0.7); Eosinophils % (A) 4 %; HCT 25.5 % (39.0-53.0); HGB 7.8 gm/dL (13.0-17.5); Hypochromasia Marked; Lymphocytes # (A) 2.2 k/uL (1.0-4.8); Lymphocytes % (A) 12 %; MCH 28.4 pg (25.0-35.0); MCHC 30.7 g/dL (31.0-37.0); MCV 92.3 fL (80.0-100.0); Macrocytosis Slight; Mean Platelet Volume 9.9; Monocytes # (A) 2.4 k/uL (0-1.0); Monocytes % (A) 13 %; Neutrophils # (A) 12.7 k/uL (1.3-7.7); Neutrophils % (A) 67 %; Platelet Count 316 k/uL (150-450); Poikilocytosis Slight; RBC 2.77 m/uL (4.30-5.90); RDW 18.9 % (11.5-15.5)
[2020-03-12 08:33] LABS: Albumin 2.3 g/dL (3.5-5.0); Calcium 8.2 mg/dL (8.4-10.2); Total Bilirubin 1.1 mg/dL (0.2-1.3)
--- NOTE | 2020-03-12 08:42 | XR ---
EXAMINATION TYPE: XR chest 1V portable DATE OF EXAM: 03/12/2020 CLINICAL HISTORY: Tube placement TECHNIQUE: Semiupright portable view of the chest COMPARISON: 03/11/2020 chest radiograph FINDINGS: Tracheostomy tube overlies the tracheal air column. Enteric tube distal tip overlies the g astric fundus with side port near the level of the GE junction. Sternotomy wires and valvular prosthe sis redemonstrated. Midline surgical ramonita. Left PICC with distal tip over the distal SVC. There is cardiomegaly and pulmonary vascular congestion. Unchanged diffuse increased pulmonary edema and smal l left pleural effusion. No sizable pneumothorax. IMPRESSION: Cardiomegaly, pulmonary vascular congestion, diffuse opacities, and small left pleural ef fusion not significantly changed from 03/11/2020.
[2020-03-12 08:44] LABS: C Reactive Protein 181.7 mg/L (<10.0)
[2020-03-12] MEDS: PANTOPRAZOLE 40 MG/10 ML VIAL IVP SCH (08:48)
[2020-03-12] MEDS: ACETAMINOPHEN TAB 325 MG TAB PO PRN ×2 (08:48→23:44)
[2020-03-12] MEDS: CALCIUM ACETATE 667 MG TAB PO SCH ×3 (08:49→18:28)
[2020-03-12] MEDS: DARBEPOETIN ALFA 40 MCG/0.4 ML SYRINGE SQ SCH (08:49)
[2020-03-12] MEDS: THIAMINE 100 MG TAB PO SCH (08:55)
[2020-03-12 09:57] LABS: Polychromasia Present
[2020-03-12 10:16] LABS: Amorphous Sediment,Urine Few /hpf; Appearance,Urine Turbid (Clear); Bacteria,Urine Occasional /hpf; Bilirubin,Urine Negative (Negative); Blood,Urine Trace (Negative); Color,Urine Yellow; Glucose,Urine (UA) Negative (Negative); Ketones,Urine Negative (Negative); Leukocyte Esterase,Urine Moderate (Negative); Mucus,Urine Few /hpf; Nitrite,Urine Negative (Negative); PH, Urine 5.5 (5.0-8.0); Protein,Urine 1+ (Negative); RBC,Urine 8 /hpf (0-5); Specific Gravity,Urine 1.014 (1.001-1.035); Squamous Epithelial Cell,Urine 3 /hpf (0-4); Urobilinogen,Urine <2.0 mg/dL (<2.0); WBC,Urine 58 /hpf (0-5)
[2020-03-12] MEDS: FLUCONAZOLE IN NACL,ISO-OSM 200 MG in SALINE 1 100ML.BAG IVPB SCH (10:38)
[2020-03-12] MEDS ORDERED: ANIDULAFUNGIN 200 MG in SODIUM CHLORIDE 0.9% 200 ML IVPB ONE (12:00)
--- NOTE | 2020-03-12 12:00 | PN ---
PROGRESS NOTE 70-year-old gentleman who was admitted to the hospital with a fall and splenic rupture and has multiple and complex problems. This morning he is doing better, responding to questions, less agitated and remains in sinus rhythm. IV Cardizem was stopped due to mild hypotension. On exam, he is in sinus rhythm with a heart rate of 98 beats per minute. Blood pressure is 140/75. Respiratory rate is 18. O2 saturation is 97 percent on FiO2 40%. Chest exam reveals diminished air entry bilaterally. Heart exam reveals first and second heart sounds. No gallop. Exam of extremities did not reveal any edema. Peripheral pulses are felt. LABORATORY DATA: Labs show that the hemoglobin is 7.8, BUN is 70, creatinine is 3.89. ASSESSMENT: Paroxysmal atrial fibrillation. PLAN: Patient is not a candidate for anticoagulation at this time. We will continue the amiodarone and use the IV Cardizem as needed. MMODL / IJN: [id number] /
--- NOTE | 2020-03-12 12:02 | P.PN ---
Subjective Progress Note Date: 03/12/20 This is a 69-year-old male patient who was working on his gutters when he fell off a 15 foot ladder. This was unwitnessed. He end up calling his who in turn called EMS and the patient was brought in to the emergency department. Upon arrival, the patient was hypotensive and he was in shock. The patient initial chest x-ray showed several left-sided fractures and small amount of subcutaneous air in addition to a left-sided pneumothorax. The x-ray of the pelvis showed no evidence of any fracture or dislocation. The CAT scan of the brain showed age-related atrophy and chronic small vessel ischemic changes without any acute intracranial process. CAT scan of cervical spine showed no acute abnormalities. On and has Been of the cervical spine was done and the bone and soft tissue windows showed no acute abnormalities. There was no evidence of any fracture. Along with multiple left-sided rib fractures third extending to the seventh rib. There was also spending the sedation with estima daxa grade 3 injury the patient. The patient's hemoglobin dropped to 10.5. The patient received a total of 2 L of IV fluid and 40 minutes of packed RBC. Morning hemoglobin today is At 13.4. The patient was taken to the operating room yesterday. The patient underwent a left-sided chest tube insertion. The patient also had splenectomy done and following that the patient was kept intubated on a mechanical ventilator and he was transferred to the intensive care unit. Note that the patient takes morphine outpatient basis and he has chronic pain and chronic narcotic requirements and on outpatient basis he takes morphine sulfate in the form of MS Contin 50 mg every 12 hours. Overnight, the patient was intubated on mechanical ventilator. He was sedated with a combination of propofol and he was also placed on morphine drip after being given several boluses control his pain. This morning, Profore is running at 70 mg per KG per minute. Morphine is running at 8 mg an hour. The patient is on normal saline at rate of 85 mL an hour. The patient has a left sided chest tube. Total amount of output is in order 110 mL of serosanguineous material without evidence of any air leak. The ventilator setting shows an assist- control mode rate of 20 with a tidal volume of 500 and FiO2 of 40% with a PEEP of 5. The patient's FiO2 is down to 40% overnight. The morning blood gases showed a pH of 7.4 with a pCO2 of 37 and pO2 of 121. The chest x-ray from this morning shows that the patient has an indwelling left-sided chest tube without any signs or pneumothorax. There is also a basilar pleural-based opacity along with multiple left-sided rib fractures and ET tube is in a good location. He is at approximately slightly swollen probably related to an infiltrated IV. He did not require any pressors. He remains hemodynamically stable. Lactic acid remains slightly elevated at 2.9 On 03/04/2020, the patient is being seen for a follow-up. The patient this morning is sedated with propofol at 50 mg per KG per minute. The patient is posterior Tibial Insertion. He Has a Bivona Tracheostomy Tube in Place. The Patient Is on a Mechanical Ventilator on Assist Control Mode at the Rate of 20 with a Tidal Volume of 500 and FiO2 of 50% with a PEEP of 10. The Blood Gases from Today Showed a pH of 7.33 with a pCO2 of 31 and pO2 of 140 and this was on FiO2 of 50%. Chest X-Ray Still Showing Bilateral Pulmonary Infiltrates That Are Rather Diffuse. The Previous Bronchoscopy and the bronchioloalveolar lavage showed no microbial growth. Prior to that a sputum sample that was done on 02/27/2020 showed Selina albicans and a sputum sample from 02/22/2020 showed Selina albicans and Selina Krusei. The patient was treated with Eraxis and he completed the course of antibiotics. He was also on IV Zosyn since admission. Antibiotics were discontinued and the patient developed C. diff colitis that was diagnosed on 03/02/2020. He was having significant diarrhea which essentially slowed down as the patient was started on oral vancomycin to 50 mg orally every 6 hours. The abdominal wound is dry clean and intact. No abdominal distention. Urine output is diminished and the patient is producing somewhere between 10-20 mL an hour of urine output. His any significant fluid overload including significant edema in all 4 extremities and scrotal edema. There is also some a bdominal wall edema. Surgical wound site is dry clean and intact. There is no signs of any wound infection. The patient is tolerating tube feeds and he is on vital high protein at the rate of 30 mL an hour. LFTs are on the rise. The creatinine is on the resident's currently up to 4.4 on the sodium level is down to 129 and a potassium level is at 5.7. This was discussed with nephrology and the patient is going to initiate hemodialysis today. Mental status is not appropriate still. As part of further investigation, the patient underwent another CAT scan of the brain on 02/27/2020 this was negative for any acute abnormalities and the patient had some new partial investigation of the shivani ateral mastoid air cells. A lumbar puncture was also done and the patient was found to have CSF protein of 50, no nucleated white cells, 17 RBCs and glucose was 93. Cultures were negative. On 03/05/2020, the patient is being seen in follow-up. Mother the patient was started on hemodialysis yesterday as the patient was having significant amount of fluid overload and the potassium was in the rise. Just about while going on dialysis, the patient developed heart block and this was a high-grade AV block with hemodynamic instability and hypotension. Immediately, the patient was given calcium chloride and sodium bicarb pushes. His condition was stabilized. He was started on pressors and following that his cardiac rhythm normalizes back to normal sinus rhythm. He underwent hemodialysis yesterday with ultrafiltration and total of 3 L of fluid was removed. Nevertheless, the patient continues to be significant fluid overload. This morning he remains on propofol at 50 mg per KG per minute. He is on levo fed at 0.03 g per KG per minute. He is on normal saline at 50 mL an hour. He remains on a mechanical ventilator. Earlier this morning, chest x-ray was done that showed improvement by the pulmonary infiltrates. The patient had a assist-control mode of ventilation at the rate of 30 with a tidal volume of 550 and FiO2 of 50% with a PEEP of 10. The blood gas showed a pH of 7.44 with episodes of 28 and pO2 148. The patient is making minimal amount of urine output. Hemoglobin this morning was at 6.5 without evidence of any GI bleed and the patient was given a unit of packed RBC. He is receiving Nepro as enteral feeding for nutritional support. Abdomen is slightly distended. The patient has no significant residuals and is producing adequate amount of bowel movement activity. His white cell count still elevated at 42 related to C. diff colitis. Abdominal wound is dry clean and intact. Less of the cultures were all negative for now. 03/06/20202019, the patient is being seen for a follow-up in the intensive care unit. I elected discussion with the patient's family. I met the daughters and also did a conference call with one of the daughters and we discussed the patient's condition at length and I updated them on his condition. Upon family's request, I initiated the transfer to [facility]. I had a discussion with Dr. Caraballo, trauma surgeon at [facility] who so no need for this patient to be transferred as the medical management that we have offered to this patient has been optimal and up to standard. In summary, today's evaluation, the patient is on a low dose of propofol running between 15 and 30 mg per KG per minute. He grimaces to painful stimulation. He is not following commands. He was given another session of dialysis this morning and the patient's blood pressure slightly dropped during hemodialysis and he is being supported with norepinephrine infusion for blood pressure support. The goal is to remove around 3 L of fluid in addition to hemodialysis. The patient is currently on assist control mode of ventilation at the tidal volume of 500, FiO2 of 40% with a PEEP of 5 and a rate of 30. The blood gases showed a pH of 7.45 with a pCO2 of 31 and pO2 of 84. Chest x-ray still unchanged compared to yesterday with bilateral pulmonary infiltrates. Take estimated to is in a good location and the patient has no significant air leaks. LFTs are in the decline as the patient has been recovering from a shock liver. Urine output is minimal and the patient is undergoing hemodialysis. Normal saline running at 20 mL an hour and the patient on Nepro at the rate of 30 mL an hour. Creatinine is up to 4.2. I'm a bit concerned of the ongoing elevation of the white cell. I initially attributed this to C. diff colitis. The patient was placed on oral vancomycin. Nevertheless, the patient continues to have elevated. Discussed the case with the general surgery. I'm going to obtain a CAT scan of the abdomen and pelvis. I'm also going to obtain a set of blood cultures. The patient does have some ongoing bandemia which in the order of 31%. Note that he is tolerating his enteral feeding for nutritional support. He is on oral vancomycin to 50 mg by mouth every 6 hours. He is cardiac rhythm is atrial fibrillation. Note that back and forth is going into episodes of atrial fibrillation. For instance, yesterday with sinus. This morning he is in atrial fibrillation with a controlled rate. No anticoagulants have been utilized. He is on Lovenox 30 mg subcu every 24 hours. This is being administered for DVT prophylaxis. 03/07/2020, I'm seeing this patient for a follow-up. On today's evaluation, the patient is sedated with Precedex. He gradually arouses while off Precedex. Nevertheless, he has not followed any commands.. He gets a bit restless and agitated and his blood pressure goes up and based on that we have to make titration on the Precedex infusion. Earlier this morning he was on 0.7 g per KG per minute. He is on mechanical ventilator. He essentially on the same mode of respirator on assist control mode at the rate of 30 with a tidal volume of 500 and FiO2 of 40% with a PEEP of 8. Morning blood gases showed a pH of 7.46 with a pCO2 of 30 and pO2 of 88. The patient essentially riding the mechanical ventilator and based on that the necessity ventilator changes were done and dropped a respiratory rate down to 22 and I dropped a PEEP down to 6. Chest x- ray is unchanged. The there was concern of his underlying colitis knowing that his white cell count was still elevated. The patient underwent a CAT scan of the abdomen and pelvis yesterday and the CAT scan showed some increased abdominal ascites, wall thickening of the left colon and rectosigmoid colon which is consistent with underlying colitis. He remains on oral vancomycin 5 mg 4 times a day. He is also on IV Flagyl for now and this was admitted by infectious disease. White cell count elevated at 50. The patient is afebrile. The patient is tolerating his enteral feeding. He did have a bowel movement yesterday. No diarrhea. Surgical wound site is dry clean and intact and the hemoglobin stable at 7.1. His bands are down to 8%. The patient will not have dialysis today. His BUN is 83 with a creatinine of 4.0. Rest of the electrodes are stable. Shock liver is improving and the AST is down to 70 for ALT is down to 377 and a total protein is at 4.5. Alkaline phosphatase is 259. He continues to have edema in all 4 extremities. He had dmme-[id number]-[id number] dialysis 3 days. The pro-calcitonin is elevated probably related to his underlying C. diff colitis. Blood cultures of been all negative. 03/08/2020 and seeing the patient for a follow-up. The patient has stayed on Precedex throughout the day yesterday and this morning he remains on Precedex at 0.7 g per KG per minute. Nevertheless, early in the morning hours, the patient became quite restless. Patient received a total of 4 L of morphine and 2 mg of Haldol. I saw the patient in morning. The patient was an assist-control mode of ventilation. I switched him to a VC plus mode at a tidal volume of 500 with a rate of 22 and I kept the PEEP at 4 with an FiO2 of 40%. The patient seemed to be much more relaxed on this current mode of ventilation. He was started on hemodialysis. His heart rate is in between atrial fibrillation normal sinus rhythm. Nevertheless, the patient has not required any Pressors while on hemodialysis. The patient opens up his eyes. He looks around. He does not follow any commands. At times he gets a bit restless and tachypneic. I noted that the patient's serum bicarbonate of 19. I offered some additional bicarb to improved underlying metabolic acidosis. My concern was to improve the patient's overall respiratory status. The patient Had a chest x-ray that was quite stable compared to yesterday without any major interval change. Tracheostomy tube is in a good location. The blood gas showed a pH of 7.41 with a pCO2 of 32 and pO2 of 102. The white cell count is on the decline as the patient is on a combination of IV Flagyl and oral vancomycin. Focused on was quite elevated due to C. diff colitis. No abdominal distention. Still having significant amount of third spacing and edema in the patient's overall goal is to ultrafiltrate at least 3 L on today's hemodialysis session. He has a triple-lumen catheter in his left groin and Artline his left groin. His dialysis cath is present in the right groin. No fever. No chills. No other significant events overnight. 03/09/2020, the patient is being seen for a follow-up. He remains on a canker ventilator. Remains on assist control mode at the rate of 22 with a tidal volume of 500 and a PEEP of 6 and FiO2 of 40%. Chest x-ray remains unchanged. Morning blood cultures from the patient's 7.39 with a pCO2 of 39 and pO2 of 102. No significant rest or secretions. The patient's tracheostomy tube in place. In terms of neurologic status, the patient is on Precedex at 0.4 g per KG. We're hoping to proceed with another session of dialysis this morning and following that are going to do further weaning of the Precedex and continue evaluating his mental status. As stated earlier, the patient grimaces and opens eyes spontaneously. Nevertheless is not following any commands. He seems to be less agitated. Metabolically, he is improved. He was given bicarb pushes yesterday and the serum bicarbs up to 25. His breathing is much more comfortable. LFTs continued to improve. Cardiac rhythm is back to sinus. White cell count is down to 25. Tolerating his tube feeds. Surgical wounds are dry clean and intact. Still edematous in all 4 extremities. The patient underwent a total of 3 L of ultrafiltration yesterday and we are hoping for some more for today. The triple-lumen catheter and Artline from the left femoral vein and artery were removed and the patient was given a Artline in the left upper extremity. No fever. No chills. No open wounds or sores. Extensive edema in all 4 extremities and extensive scrotal edema. 03/10/2020, the patient is off Precedex. The patient is moving all 4 extremities. His grimacing. Sometimes he gets restless. He is still not following any commands. He will be started on hemodialysis with a goal of 3 L of ultrafiltration. His volume status is improving as the patient is receiving daily dialysis sessions. He remains on the same ventilator setting. He is on a tidal volume of 500 with a PEEP of 5 and FiO2 of 40% and a respiratory rate of 22. Chest x-ray is unchanged. Blood gas shows a pH of 7.43 with a pCO2 of 36 and pO2 of 136. The patient is synchronous with the mechanical ventilator. He shock liver continues to improve. AST and ALT continue to decline. He is receiving enteral feeding for nutritional support and white cell count is down to 18.1. He was stable at 7.8. The patient continues to have episodes of atrial fibrillation. Rate is slightly tachycardic today. May need to be started on Cardizem drip for rate control and the patient be also started on Eliquis is along for medical record notes regarding his proximal atrial fibrillation. The patient has a clear surgical wound site. He is off Precedex mental status is being monitored very closely. on 03/11/2020, the patient is still being treated in intensive care unit. Mental status continues to be an ongoing issue. I daily basis he is getting dialysis and would feel that he is much more awake. However, is not still tracking or following any commands. He opens his eyes. He grimaces. He looks around. He moves all 4 extremities. At times he gets agitated. Agitation occurs mainly when he is stimulated. No seizure activity. His neurologic exam is nonfocal. He is a patient of mechanical ventilated on today's evaluation I switched him to a pressure support mode at a pressure support of 20 with a PEEP of 5 he was able to breathe spontaneously at that setting. This will be done on a trial basis. He remains on a mechanical ventilator on VC mode and the patient's earlier vent settings with a PEEP of 5 with an FiO2 of 40% and tidal volume of 500 and the rate of 22. The patient's pH from this morning was 7.48 with a pCO2 of 34 and pO2 113. Chest x-ray is unchanged. In terms of dialysis, he continues to receive daily dialysis and his STATUS continues to improve. Upper and lower extremity edema and the scrotal edema improved. No nitrite imbalance. A total of 3.5 L of ultrafiltration was done yesterday. The patient is afebrile. White cell count is at 18. Progesterone level is improving. He is receiving enteral feeding for nutritional support. Surgical wound site is dry clean and intact. He has a PICC line and has also an art line in his radial artery. LFTs continued to improve. In terms of his cardiac issue, he is on no pressors. He is having episodes of atrial fibrillation. He was placed on Cardizem drip at lower rate of 5 mg an hour he is also on Eliquis for long-term and to coagulation. He remains on amiodarone. Cardizem is being titrated to maintain a heart rate of less than 100. No major significant events overnight. His urine output is still on 03/12/2020, the patient is responsive and the patient is following commands. He looks a bit restless. Nevertheless he is able to follow commands and he was able to communicate with us. This is the first encounter with the patient was found to be fully awake and alert. The patient is having another session of hemodialysis today. He remains on a mechanical ventilator. Vent settings are essentially unchanged compared to yesterday and he is an assist-control mode rate of 22 with a tidal volume of 500 and FiO2 of 40% with a PEEP of 5. Chest x-ray findings are unchanged. The patienthowever has developed some low-grade fever and a white cell count is at 19.0. Diarrhea is not present. He is stooling. Surgical site is dry clean and intact. He has a PICC line. The blood cultures of been sent. The patient was placed on a combination of daptomycin and Diflucan. He remains on oral vancomycin and IV Flagylregarding his C. diff colitis. His cardiac rhythm is sinus. He is having approximately 2 fibrillation. The patient is on Eliquis for now. Tolerating enteral feeding for nutritional support. NG tube is in place. PEG tube is to follow. Cardizem drip was off for now. He has adequate pain control. Surgical dose has been cut down since yesterday 200 mg at bedtime. The patient had ultrafiltration was around 3-1/2 L of fluid removed yesterday and the patient is having Objective - Vital Signs Vital signs: Vital Signs Temp 102.4 F H 03/12/20 08:00 Pulse 99 03/12/20 11:05 Resp 22 03/12/20 11:00 BP 136/63 03/12/20 11:00 Pulse Ox 97 03/12/20 11:00 Intake & Output 03/11/20 03/12/20 03/12/20 18:59 06:59 18:59 Intake Total 895 363 360 Output Total 4190 290 80 Balance -3295 73 280 Weight 94.3 kg 89.4 kg Intake: IV 340 243 70 Diltiazem 125 mg In 20 Sodium Chloride 0.9% 100 ml @ Per Protocol IV .Q0M [facility] Rx#:[id number] Pressure bag 3 Sodium Chloride 0.9% 1, 220 240 70 000 ml @ 20 mls/hr IV . Q24H [facility] Rx#:[id number] metroNIDAZOLE-NS PMX 500 100 mg In Saline 1 100ml.bag @ 100 mls/hr IVPB Q8HR [facility] Rx#:[id number] Intake, IV Titration 225 200 Amount Diltiazem 125 mg In 125 Sodium Chloride 0.9% 100 ml @ 5 MG/HR 5 mls/hr IV .Q24H [facility] Rx#:[id number] Fluconazole in NaCl,Iso- 100 100 Osm 200 mg In Saline 1 100ml.bag @ 100 mls/hr IVPB DAILY [facility] Rx#: [id number] metroNIDAZOLE-NS PMX 500 100 mg In Saline 1 100ml.bag @ 100 mls/hr IVPB Q8HR [facility] Rx#:[id number] Tube Feeding 330 120 90 Output: Urine 190 290 80 Hemodialysis 4000 Other: Voiding Method Indwelling Catheter Indwelling Catheter ABP, PAP, CO, CI - Last Documented Arterial Blood Pressure 129/50 - Exam Gen. appearance the patient is awake and following some simple commands and interacting on today's evaluation. He is a patient of mechanical ventilator. NG tube is in place. Tracheostomy tube in place. Head exam was generally normal. There was no scleral icterus or corneal arcus. Mucous membranes were moist. Neck was supple and without jugular venous distension, thyromegaly, or carotid bruits. Carotids were easily palpable bilaterally. There was no adenopathy. The patient has a tracheostomy tube in place. Lungs sounds are diminished bilaterally and the patient is a left sided chest tube in place. Chest tube is in a good location. Breath sounds are slightly diminished in left lung base compared to the right. Cardiac exam revealed the PMI to be normally situated and sized. The rhythm was irregular and no extrasystoles were noted during several minutes of auscultation. The patient is currently in atrial fibrillation. He is back and forth between atrial fibrillation and normal sinus rhythm. The first and second heart sounds were normal and physiologic splitting of the second heart sound was noted. There were no murmurs, rubs, clicks, or gallops. Abdomen is soft and nontender. The patient has a mid abdominal scar which is dry clean and intact. A surgical scar/wound is dry clean and intact. No direct distention. No rebound distention. No guarding. Bowel sounds are hypoactive at this point in time. Examination of the extremities revealed easily palpable radial, femoral and pedal pulses. There was no cyanosis, clubbing and there is development of signif icant edema in all 4 extremities and the patient also has scrotal edema. He continues to have significant amount of edema in all 4 extremities. Examination of the skin revealed no evidence of significant rashes, suspicious appearing nevi or other concerning lesions. Abdominal wound site is dry clean and intact. Neurologic the patient is opening his eyes spontaneously.he is following simple commands. He is moving all 4 extremities. No focal neurological deficits. There is motor weakness in all 4 extremities specially in the upper extremities bilaterally. - Labs CBC & Chem 7: 03/12/20 07:37 03/12/20 07:37 Labs: Abnormal Lab Results - Last 24 Hours (Table) 03/11/20 03/11/20 03/12/20 Range/Units 17:55 18:33 00:03 WBC (3.8-10.6) k/uL RBC (4.30-5.90) m/uL Hgb (13.0-17.5) gm/dL Hct (39.0-53.0) % MCHC (31.0-37.0) g/dL RDW (11.5-15.5) % Neutrophils # (1.3-7.7) k/uL Monocytes # (0-1.0) k/uL Sodium (137-145) mmol/L BUN (9-20) mg/dL Creatinine (0.66-1.25) mg/dL Glucose (74-99) mg/dL POC Glucose (mg/dL) 145 H 117 H (75-99) mg/dL Calcium (8.4-10.2) mg/dL ALT (4-49) U/L Alkaline Phosphatase (38-126) U/L C-Reactive Protein 159.4 H (<10.0) mg/L Total Protein (6.3-8.2) g/dL Albumin (3.5-5.0) g/dL Urine Protein (Negative) Urine Blood (Negative) Ur Leukocyte Esterase (Negative) Urine RBC (0-5) /hpf Urine WBC (0-5) /hpf Amorphous Sediment (None) /hpf Urine Bacteria (None) /hpf Urine Mucus (None) /hpf 03/12/20 03/12/20 03/12/20 Range/Units 06:09 07:37 07:37 WBC 19.0 H (3.8-10.6) k/uL RBC 2.77 L (4.30-5.90) m/uL Hgb 7.8 L (13.0-17.5) gm/dL Hct 25.5 L (39.0-53.0) % MCHC 30.7 L (31.0-37.0) g/dL RDW 18.9 H (11.5-15.5) % Neutrophils # 12.7 H (1.3-7.7) k/uL Monocytes # 2.4 H (0-1.0) k/uL Sodium 135 L (137-145) mmol/L BUN 70 H (9-20) mg/dL Creatinine 3.89 H (0.66-1.25) mg/dL Glucose 127 H (74-99) mg/dL POC Glucose (mg/dL) 159 H (75-99) mg/dL Calcium 8.2 L (8.4-10.2) mg/dL ALT 67 H (4-49) U/L Alkaline Phosphatase 227 H (38-126) U/L C-Reactive Protein 181.7 H (<10.0) mg/L Total Protein 5.0 L (6.3-8.2) g/dL Albumin 2.3 L (3.5-5.0) g/dL Urine Protein (Negative) Urine Blood (Negative) Ur Leukocyte Esterase (Negative) Urine RBC (0-5) /hpf Urine WBC (0-5) /hpf Amorphous Sediment (None) /hpf Urine Bacteria (None) /hpf Urine Mucus (None) /hpf 03/12/20 Range/Units 09:05 WBC (3.8-10.6) k/uL RBC (4.30-5.90) m/uL Hgb (13.0-17.5) gm/dL Hct (39.0-53.0) % MCHC (31.0-37.0) g/dL RDW (11.5-15.5) % Neutrophils # (1.3-7.7) k/uL Monocytes # (0-1.0) k/uL Sodium (137-145) mmol/L BUN (9-20) mg/dL Creatinine (0.66-1.25) mg/dL Glucose (74-99) mg/dL POC Glucose (mg/dL) (75-99) mg/dL Calcium (8.4-10.2) mg/dL ALT (4-49) U/L Alkaline Phosphatase (38-126) U/L C-Reactive Protein (<10.0) mg/L Total Protein (6.3-8.2) g/dL Albumin (3.5-5.0) g/dL Urine Protein 1+ H (Negative) Urine Blood Trace H (Negative) Ur Leukocyte Esterase Moderate H (Negative) Urine RBC 8 H (0-5) /hpf Urine WBC 58 H (0-5) /hpf Amorphous Sediment Few H (None) /hpf Urine Bacteria Occasional H (None) /hpf Urine Mucus Few H (None) /hpf Microbiology - Last 24 Hours (Table) 03/06/20 08:45 Blood Culture - Final Blood No Growth after 144 hours 03/05/20 11:27 Blood Culture - Final Blood No Growth after 144 hours 03/05/20 10:55 Blood Culture - Final Blood No Growth after 144 hours Assessment and Plan Plan: 1 fall off a ladder with significant trauma to the chest and abdomen. The patient had sustained left-sided rib fractures, splenic rupture postsplenectomy, and a left-sided pneumothorax. 2 traumatic grade 3 laceration of the spleen along with hemoperitoneum and the patient is post splenectomy and the patient is postop day and the patient had the surgery on 02/17/2020. 3 traumatic left-sided rib fractures third drip through seventh rib along with a 30% left-sided pneumothorax post chest tube insertion with adequate expansion of the left lung. The left-sided chest tube was removed. 4 shock at the time of admission, essentially due to hemorrhagic shock, recovered 5 Acute kidney injury with massive fluid overload , the patient is receiving daily dialysis the patient's volume status is improved considerably. He still has some increased edema in extremities in the scrotum. Nevertheless the volume status is improved and the patient's mental status improved with hemodialysis and the patient on today's evaluation is following some simple commands. Another session of hemodialysis ultrafiltration to be done today. 6 acute ventilator-dependent respiratory failure, hypoxic, secondary to above. The patient's overall pulmonary status is stable. the patient will be given daily trials with pressure support. 7 chronic neck pain and the patient had been taken MS Contin on outpatient basis 15 mg twice a day 8 coronary artery disease with a previous bypass surgery 9 hyperlipidemia 10 BPH 11 delirium tremens/alcoholism 12 paroxysmal atrial fibrillation and the patient is currently in A. fib on oral amiodarone. the patient was started on Eliquis for long-term articulation. the patient is alternating between controlled atrial fibrillation and sinus rhythm. 13 leukocytosis, secondary to C. diff colitis, and the white cell count is stable at 19. 14 C. diff colitis currently on oral vancomycin and IV Flagyl., white cell count remains elevated . The patient diarrhea has subsided and the patient has his FMS removed. The patient on oral vancomycin and Flagyl. 15 anemia, multifactorial, chronic, hemoglobin is stable 16, acute hepatic injury, shock liver with LFTs are essentially improving for now. No significant coagulopathy. 17 episodes of fever, and the patient is undergoing further investigation with blood cultures and urine cultures and the patient was given empiric antibiotic coverage with daptomycin and he was also given Diflucan. Plan Continue ventilator support daily trials of pressure support mode of ventilation with a pressure support avoid sedatives for now Continue with MS Contin orally along with Seroquel 100 mg once a day at bedtime Complete dialysisand the patient had an ultrafiltration of 3-1/2 L yesterday. Monitor mental status and the patient continues improving recommend another session of hemodialysis today Continue oral vancomycin regarding C. diff colitis and the patient is on Flagyl fever workup with blood cultures and urine cultures Daptomycin and Diflucan was added by infectious disease We'll continue to follow We'll continue to follow. The patient is critically ill, and the patient will monitored very closely in the ICU. This is a critically care evaluation that was on a more than 30 minutes. Time with Patient: Greater than 30
[2020-03-12] MEDS: DILTIAZEM 125 MG in SODIUM CHLORIDE 0.9% 100 ML IV SCH ×2 (12:12→14:30)
[2020-03-12] MEDS: SODIUM CHLORIDE 0.9% 1,000 ML IV SCH (12:14)
[2020-03-12 12:30] LABS: Glucose,Whole Blood 121 mg/dL (75-99)
--- NOTE | 2020-03-12 13:54 | P.PN ---
Subjective Progress Note Date: 03/12/20 CHIEF COMPLAINT: Fall with Trauma HISTORY OF PRESENT ILLNESS: Patient seen with Dr. Ivy. This is a 69-year-old male who fell 15 feet off the top of the ladder. Patient's CAT scan was performed showing a large left pneumothorax as well as multiple rib fractures and hemoperitoneum and a ruptured spleen. Patient is status post splenectomy. Patient is status post tracheostomy placement due to his res piratory failure and unable to wean from vent. Patient remains in ICU and on vent. He is continued on daily dialysis. Patient is awake today. He is able to follow commands. White count 19 hemo globin 7.8 venous Doppler left upper extremity negative for DVT. Patient did have a temp of 101.4 last night. PHYSICAL EXAM: VITAL SIGNS: Reviewed. GENERAL: Well-developed in no acute distress. HEENT: No sclera icterus. Extraocular movements grossly intact. Moist buccal mucosa. Head is atraumatic, normocephalic. Trach site clean dry and intact ABDOMEN: Soft. Nondistended. Incision site clean dry and intact NEUROLOGIC: Patient is sedated ASSESSMENT: 1. 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 2. Status post tracheostomy for respiratory failure 3. Status post fall off a ladder with, to chest and abdomen 4. Left-sided pneumothorax has chest tube in place 5. Multiple left-sided rib fractures 6. Alcohol intoxication 7. Acute hypoxic ventilatory dependent respiratory failure. 8. Chronic pain medication 9. Atrial fibrillation with rapid ventricular response. Patient now on Eliquis 10. C. diff colitis 11. Acute kidney injury . Followed closely by nephrology. 12. Acute blood loss anemia status post blood transfusion PLAN: -If patient continues to wake up and do well, we may not need to proceed with PEG tube placement next week. Continue to monitor. -Continue tube feedings -Continue ICU management -Continue oral vancomycin -Hemodialysis per nephrology -eloisax for DVT prophylaxis Physician [employer] note has been reviewed by physician. Signing provider agrees with the documented findings, assessment, and plan of care. Objective - Vital Signs Vital signs: Vital Signs Temp 99.5 F 03/12/20 11:00 Pulse 96 03/12/20 12:00 Resp 27 H 03/12/20 12:00 BP 141/72 03/12/20 12:00 Pulse Ox 97 03/12/20 12:00 Intake & Output 03/11/20 03/12/20 03/12/20 18:59 06:59 18:59 Intake Total 895 363 400 Output Total 4190 290 90 Balance -3295 73 310 Weight 94.3 kg 89.4 kg Intake: IV 340 243 80 Diltiazem 125 mg In 20 Sodium Chloride 0.9% 100 ml @ Per Protocol IV .Q0M [facility] Rx#:[id number] Pressure bag 3 Sodium Chloride 0.9% 1, 220 240 80 000 ml @ 20 mls/hr IV . Q24H [facility] Rx#:[id number] metroNIDAZOLE-NS PMX 500 100 mg In Saline 1 100ml.bag @ 100 mls/hr IVPB Q8HR [facility] Rx#:[id number] Intake, IV Titration 225 200 Amount Diltiazem 125 mg In 125 Sodium Chloride 0.9% 100 ml @ 5 MG/HR 5 mls/hr IV .Q24H [facility] Rx#:[id number] Fluconazole in NaCl,Iso- 100 100 Osm 200 mg In Saline 1 100ml.bag @ 100 mls/hr IVPB DAILY [facility] Rx#: [id number] metroNIDAZOLE-NS PMX 500 100 mg In Saline 1 100ml.bag @ 100 mls/hr IVPB Q8HR [facility] Rx#:[id number] Tube Feeding 330 120 120 Output: Urine 190 290 90 Hemodialysis 4000 Other: Voiding Method Indwelling Catheter Indwelling Catheter ABP, PAP, CO, CI - Last Documented Arterial Blood Pressure 129/50 - Labs CBC & Chem 7: 03/12/20 07:37 03/12/20 07:37 Labs: Abnormal Lab Results - Last 24 Hours (Table) 03/11/20 03/11/20 03/12/20 Range/Units 17:55 18:33 00:03 WBC (3.8-10.6) k/uL RBC (4.30-5.90) m/uL Hgb (13.0-17.5) gm/dL Hct (39.0-53.0) % MCHC (31.0-37.0) g/dL RDW (11.5-15.5) % Neutrophils # (1.3-7.7) k/uL Monocytes # (0-1.0) k/uL Sodium (137-145) mmol/L BUN (9-20) mg/dL Creatinine (0.66-1.25) mg/dL Glucose (74-99) mg/dL POC Glucose (mg/dL) 145 H 117 H (75-99) mg/dL Calcium (8.4-10.2) mg/dL ALT (4-49) U/L Alkaline Phosphatase (38-126) U/L C-Reactive Protein 159.4 H (<10.0) mg/L Total Protein (6.3-8.2) g/dL Albumin (3.5-5.0) g/dL Urine Protein (Negative) Urine Blood (Negative) Ur Leukocyte Esterase (Negative) Urine RBC (0-5) /hpf Urine WBC (0-5) /hpf Amorphous Sediment (None) /hpf Urine Bacteria (None) /hpf Urine Mucus (None) /hpf 03/12/20 03/12/20 03/12/20 Range/Units 06:09 07:37 07:37 WBC 19.0 H (3.8-10.6) k/uL RBC 2.77 L (4.30-5.90) m/uL Hgb 7.8 L (13.0-17.5) gm/dL Hct 25.5 L (39.0-53.0) % MCHC 30.7 L (31.0-37.0) g/dL RDW 18.9 H (11.5-15.5) % Neutrophils # 12.7 H (1.3-7.7) k/uL Monocytes # 2.4 H (0-1.0) k/uL Sodium 135 L (137-145) mmol/L BUN 70 H (9-20) mg/dL Creatinine 3.89 H (0.66-1.25) mg/dL Glucose 127 H (74-99) mg/dL POC Glucose (mg/dL) 159 H (75-99) mg/dL Calcium 8.2 L (8.4-10.2) mg/dL ALT 67 H (4-49) U/L Alkaline Phosphatase 227 H (38-126) U/L C-Reactive Protein 181.7 H (<10.0) mg/L Total Protein 5.0 L (6.3-8.2) g/dL Albumin 2.3 L (3.5-5.0) g/dL Urine Protein (Negative) Urine Blood (Negative) Ur Leukocyte Esterase (Negative) Urine RBC (0-5) /hpf Urine WBC (0-5) /hpf Amorphous Sediment (None) /hpf Urine Bacteria (None) /hpf Urine Mucus (None) /hpf 03/12/20 03/12/20 Range/Units 09:05 12:27 WBC (3.8-10.6) k/uL RBC (4.30-5.90) m/uL Hgb (13.0-17.5) gm/dL Hct (39.0-53.0) % MCHC (31.0-37.0) g/dL RDW (11.5-15.5) % Neutrophils # (1.3-7.7) k/uL Monocytes # (0-1.0) k/uL Sodium (137-145) mmol/L BUN (9-20) mg/dL Creatinine (0.66-1.25) mg/dL Glucose (74-99) mg/dL POC Glucose (mg/dL) 121 H (75-99) mg/dL Calcium (8.4-10.2) mg/dL ALT (4-49) U/L Alkaline Phosphatase (38-126) U/L C-Reactive Protein (<10.0) mg/L Total Protein (6.3-8.2) g/dL Albumin (3.5-5.0) g/dL Urine Protein 1+ H (Negative) Urine Blood Trace H (Negative) Ur Leukocyte Esterase Moderate H (Negative) Urine RBC 8 H (0-5) /hpf Urine WBC 58 H (0-5) /hpf Amorphous Sediment Few H (None) /hpf Urine Bacteria Occasional H (None) /hpf Urine Mucus Few H (None) /hpf Microbiology - Last 24 Hours (Table) 03/06/20 08:45 Blood Culture - Final Blood No Growth after 144 hours 03/05/20 11:27 Blood Culture - Final Blood No Growth after 144 hours 03/05/20 10:55 Blood Culture - Final Blood No Growth after 144 hours
--- NOTE | 2020-03-12 15:36 | PN ---
PROGRESS NOTE Patient is seen for followup for acute kidney injury. He is currently on the vent, although patient is awake. He seems to be following commands. He remains on the vent. On examination today, blood pressure 141/72, heart rate 96 per minute. Patient is afebrile. EXAMINATION OF THE HEART: S1 and S2. EXAMINATION OF LUNGS: Bilateral breath sounds are heard. ABDOMEN: Soft, non-tender. Examination of lower extremities shows edema 3+ bilaterally with significant scrotal edema as well. [employer] exam shows patient is moving his extremities. He also seems to be following commands. Labs show hemoglobin 7.8, sodium 135, potassium 4.0, chloride 101, BUN 70. Serum creatinine 3.89. ASSESSMENT: 1. Acute kidney injury, acute tubular necrosis, currently maintained on daily dialysis, mostly for volume overload. Patient is currently oliguric with urine output at about 10 mL/hour. 2. Severe volume overload, currently improving. 3. Clostridium difficile colitis, improved. 4. Ventilator-dependent respiratory failure, status post trach and PEG. 5. Anemia. No active bleeding noted. Hemoglobin is stable. Patient is maintained on Aranesp. 6. Hyperphosphatemia, currently on PhosLo. 7. Metabolic acidosis, now resolved. I will discontinue the sodium bicarb. PLAN: Discontinue sodium bicarb. Repeat hemodialysis and ultrafiltration in a.m. MMODL / IJN: [id number] /
--- NOTE | 2020-03-12 16:03 | PN ---
PROGRESS NOTE DATE OF SERVICE: 03/12/2020 REASON FOR FOLLOWUP: 1. C difficile colitis. 2. Oropharyngeal candidiasis. 3. New fever. INTERVAL HISTORY: The patient did spike another fever this morning of 102.4 degrees Fahrenheit. The patient has been afebrile since then. The patient is hemodynamically stable. He is not on any pressor support. FiO2 is currently stable at 40%. No purulent secretions through the ET or any worsening diarrhea reported by nursing staff. The patient is slowly waking up and is following commands. PHYSICAL EXAMINATION: Blood pressure 136/63 with a pulse of 96, temperature 99.5. T-max is 102.4. He is 97% on 40% FiO2. General description is an elderly male lying in bed in no distress. RESPIRATORY SYSTEM: Unlabored breathing with decreased breath sounds at the base. No wheeze. HEART: S1, S2. Regular rate and rhythm. ABDOMEN: Soft. No tenderness. LABS: Hemoglobin 7.8, white count 19 with a BUN of 70, creatinine 3.89. Liver enzymes are mildly elevated. CRP elevated at 181. DIAGNOSTIC IMPRESSION AND PLAN: 1. Patient with Clostridium difficile colitis, for which the patient is currently on vancomycin and Flagyl; to continue. Diarrhea has improved. 2. Patient with possible oropharyngeal candidiasis. The patient is on amiodarone. High risk of drug interaction between amiodarone and Diflucan. Antifungal will be switched over to Eraxis. 3. Patient with new fever with concern for possible PICC site, as they were unable to draw any blood from it. Ultrasound was negative for any DVT. Daptomycin has been added. I will follow the response. UA is also positive. Nolan should be changed. Sputum culture has been requested. Will adjust antibiotics further on the basis of these repeat cultures and monitor his clinical course closely. at the bedside. Questions were answered. MMODL / IJN: [id number] /
--- NOTE | 2020-03-12 16:35 | P.PN ---
Subjective Progress Note Date: 03/12/20 Principal diagnosis: Fall with Trauma to chest and abdomen Hemoperitoneum with ruptured spleen status post emergent splenectomy Status post tracheostomy for respiratory failure Left-sided pneumothorax has chest tube in place Multiple left-sided rib fractures 03/12/2020, the patient is seen and evaluated for follow-up; follows commands; session of hemodialysis in progress today. He remains on a mechanical ventilator. Chest x-ray findings are unchanged; patient has some low-grade fever and a white cell count is at 19.0. Diarrhea is not present. He is stooling. Surgical site is dry clean and intact. He has a PICC line. The blood cultures of been sent. The patient was placed on a combination of daptomycin and Diflucan. He remains on oral vancomycin and IV Flagylregarding his C. diff colitis. His cardiac rhythm is sinu; remains on Eliquis for now. Tolerating enteral feeding for nutritional support. NG tube is in place. PEG tube is to follow. Objective - Vital Signs Vital signs: Vital Signs Temp 99.5 F 03/12/20 11:00 Pulse 96 03/12/20 12:00 Resp 27 H 03/12/20 12:00 BP 141/72 03/12/20 12:00 Pulse Ox 97 03/12/20 12:00 Intake & Output 03/11/20 03/12/20 03/12/20 18:59 06:59 18:59 Intake Total 895 363 400 Output Total 4190 290 90 Balance -3295 73 310 Weight 94.3 kg 89.4 kg Intake: IV 340 243 80 Diltiazem 125 mg In 20 Sodium Chloride 0.9% 100 ml @ Per Protocol IV .Q0M [facility] Rx#:[id number] Pressure bag 3 Sodium Chloride 0.9% 1, 220 240 80 000 ml @ 20 mls/hr IV . Q24H [facility] Rx#:[id number] metroNIDAZOLE-NS PMX 500 100 mg In Saline 1 100ml.bag @ 100 mls/hr IVPB Q8HR [facility] Rx#:[id number] Intake, IV Titration 225 200 Amount Diltiazem 125 mg In 125 Sodium Chloride 0.9% 100 ml @ 5 MG/HR 5 mls/hr IV .Q24H [facility] Rx#:[id number] Fluconazole in NaCl,Iso- 100 100 Osm 200 mg In Saline 1 100ml.bag @ 100 mls/hr IVPB DAILY [facility] Rx#: [id number] metroNIDAZOLE-NS PMX 500 100 mg In Saline 1 100ml.bag @ 100 mls/hr IVPB Q8HR [facility] Rx#:[id number] Tube Feeding 330 120 120 Output: Urine 190 290 90 Hemodialysis 4000 Other: Voiding Method Indwelling Catheter Indwelling Catheter ABP, PAP, CO, CI - Last Documented Arterial Blood Pressure 129/50 - Exam VITAL SIGNS: Reviewed. GENERAL: Well-developed in no acute distress. HEENT: No sclera icterus. Extraocular movements grossly intact. Moist buccal mucosa. Head is atraumatic, normocephalic. Trach site clean dry and intact ABDOMEN: Soft. Nondistended. Incision site clean dry and intact NEUROLOGIC: Remains intubated; does follow commands - Labs CBC & Chem 7: 03/12/20 07:37 03/12/20 07:37 Labs: Abnormal Lab Results - Last 24 Hours (Table) 03/11/20 03/11/20 03/12/20 Range/Units 17:55 18:33 00:03 WBC (3.8-10.6) k/uL RBC (4.30-5.90) m/uL Hgb (13.0-17.5) gm/dL Hct (39.0-53.0) % MCHC (31.0-37.0) g/dL RDW (11.5-15.5) % Neutrophils # (1.3-7.7) k/uL Monocytes # (0-1.0) k/uL Sodium (137-145) mmol/L BUN (9-20) mg/dL Creatinine (0.66-1.25) mg/dL Glucose (74-99) mg/dL POC Glucose (mg/dL) 145 H 117 H (75-99) mg/dL Calcium (8.4-10.2) mg/dL ALT (4-49) U/L Alkaline Phosphatase (38-126) U/L C-Reactive Protein 159.4 H (<10.0) mg/L Total Protein (6.3-8.2) g/dL Albumin (3.5-5.0) g/dL Urine Protein (Negative) Urine Blood (Negative) Ur Leukocyte Esterase (Negative) Urine RBC (0-5) /hpf Urine WBC (0-5) /hpf Amorphous Sediment (None) /hpf Urine Bacteria (None) /hpf Urine Mucus (None) /hpf 03/12/20 03/12/20 03/12/20 Range/Units 06:09 07:37 07:37 WBC 19.0 H (3.8-10.6) k/uL RBC 2.77 L (4.30-5.90) m/uL Hgb 7.8 L (13.0-17.5) gm/dL Hct 25.5 L (39.0-53.0) % MCHC 30.7 L (31.0-37.0) g/dL RDW 18.9 H (11.5-15.5) % Neutrophils # 12.7 H (1.3-7.7) k/uL Monocytes # 2.4 H (0-1.0) k/uL Sodium 135 L (137-145) mmol/L BUN 70 H (9-20) mg/dL Creatinine 3.89 H (0.66-1.25) mg/dL Glucose 127 H (74-99) mg/dL POC Glucose (mg/dL) 159 H (75-99) mg/dL Calcium 8.2 L (8.4-10.2) mg/dL ALT 67 H (4-49) U/L Alkaline Phosphatase 227 H (38-126) U/L C-Reactive Protein 181.7 H (<10.0) mg/L Total Protein 5.0 L (6.3-8.2) g/dL Albumin 2.3 L (3.5-5.0) g/dL Urine Protein (Negative) Urine Blood (Negative) Ur Leukocyte Esterase (Negative) Urine RBC (0-5) /hpf Urine WBC (0-5) /hpf Amorphous Sediment (None) /hpf Urine Bacteria (None) /hpf Urine Mucus (None) /hpf 03/12/20 03/12/20 Range/Units 09:05 12:27 WBC (3.8-10.6) k/uL RBC (4.30-5.90) m/uL Hgb (13.0-17.5) gm/dL Hct (39.0-53.0) % MCHC (31.0-37.0) g/dL RDW (11.5-15.5) % Neutrophils # (1.3-7.7) k/uL Monocytes # (0-1.0) k/uL Sodium (137-145) mmol/L BUN (9-20) mg/dL Creatinine (0.66-1.25) mg/dL Glucose (74-99) mg/dL POC Glucose (mg/dL) 121 H (75-99) mg/dL Calcium (8.4-10.2) mg/dL ALT (4-49) U/L Alkaline Phosphatase (38-126) U/L C-Reactive Protein (<10.0) mg/L Total Protein (6.3-8.2) g/dL Albumin (3.5-5.0) g/dL Urine Protein 1+ H (Negative) Urine Blood Trace H (Negative) Ur Leukocyte Esterase Moderate H (Negative) Urine RBC 8 H (0-5) /hpf Urine WBC 58 H (0-5) /hpf Amorphous Sediment Few H (None) /hpf Urine Bacteria Occasional H (None) /hpf Urine Mucus Few H (None) /hpf Microbiology - Last 24 Hours (Table) 03/06/20 08:45 Blood Culture - Final Blood No Growth after 144 hours 03/05/20 11:27 Blood Culture - Final Blood No Growth after 144 hours 03/05/20 10:55 Blood Culture - Final Blood No Growth after 144 hours Assessment and Plan Assessment: 1. 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 2. Status post tracheostomy for respiratory failure 3. Status post fall off a ladder with, to chest and abdomen 4. Left-sided pneumothorax has chest tube in place 5. Multiple left-sided rib fractures 6. Alcohol intoxication 7. Acute hypoxic ventilatory dependent respiratory failure. 8. Chronic pain medication 9. Atrial fibrillation with rapid ventricular response. Patient now on Eliquis 10. C. diff colitis 11. Acute kidney injury . Followed closely by nephrology. 12. Acute blood loss anemia status post blood transfusion PLAN: -If patient continues to wake up and do well, we may not need to proceed with PEG tube placement next week. Continue to monitor. -Continue tube feedings -Continue ICU management -Continue oral vancomycin -Hemodialysis per nephrology -lovenox for DVT prophylaxis
[2020-03-12 17:56] LABS: Glucose,Whole Blood 139 mg/dL (75-99)
[2020-03-12 23:29] LABS: Glucose,Whole Blood 125 mg/dL (75-99)
[2020-03-13] MEDS: IPRATROPIUM-ALBUTEROL 3 ML NEB INHALATION SCH ×6 (03:14→23:14)
[2020-03-13] MEDS: NOREPINEPHRINE 32 MG in SODIUM CHLORIDE 0.9% 218 ML IV SCH (03:39)
[2020-03-13 05:21] LABS: ABG Base Excess 1.8 mmol/L; ABG HCO3 25 mmol/L (21-25); ABG Oxygen Saturation 99.1 % (94-97); ABG PCO2 34 mmHg (35-45); ABG PH 7.48 (7.35-7.45); ABG PO2 132 mmHg (83-108); ABG TCO2 26 mmol/L (19-24); Allen Test Performed? Yes
[2020-03-13] MEDS: INSULIN ASPART (NovoLOG) 100 UNIT/ML VIAL SQ SCH ×3 (05:44→17:49)
[2020-03-13 05:45] LABS: Glucose,Whole Blood 130 mg/dL (75-99)
[2020-03-13] MEDS: VANCOMYCIN ORAL SOLUTION 250 MG/5 ML BOTTLE PO SCH ×3 (05:48→17:49)
--- NOTE | 2020-03-13 07:06 | XR ---
EXAMINATION TYPE: XR chest 1V portable DATE OF EXAM: 03/13/2020 CLINICAL HISTORY: Difficulty breathing and pneumonia progress study. TECHNIQUE: Single AP portable upright view of the chest is obtained. COMPARISON: Chest x-ray from one day earlier and older studies. FINDINGS: Flexible tracheostomy tube, left-sided PICC line, and orogastric tube all redemonstrated. Overlying sternal wires and mediastinal clips again seen. Partial visualization of surgical change in the cervical spine. Stable mild cardiomegaly. Persistent multifocal bilateral opacities with small to tiny left pleural e ffusion. Stable mild central vascular congestion. Displaced left posterolateral fourth through sixth rib fractures redemonstrated. Slightly elevated left hemidiaphragm remains present with lateral left basilar atelectasis and/or infiltrate. IMPRESSION: Mild cardiomegaly with multifocal areas of acute infiltrate and/or edema along with small tiny left pleural effusion and more focal left basilar acute infiltrate and/or atelectasis are all r edemonstrated. No significant change from most recent study. Some interval improvement in Central con gestion and multifocal infiltrates noted from older studies.
[2020-03-13 07:15] LABS: Anisocytosis Slight; Basophils # (A) 0.1 k/uL (0-0.2); Basophils % (A) 1 %; Eosinophils % (A) 6 %; HCT 28.4 % (39.0-53.0); HGB 8.3 gm/dL (13.0-17.5); Hypochromasia Marked; Lymphocytes # (A) 2.1 k/uL (1.0-4.8); Lymphocytes % (A) 13 %; MCH 27.8 pg (25.0-35.0); MCHC 29.2 g/dL (31.0-37.0); MCV 95.1 fL (80.0-100.0); Macrocytosis Slight; Mean Platelet Volume 9.8; Monocytes % (A) 13 %; Neutrophils % (A) 64 %; Platelet Count 334 k/uL (150-450); Poikilocytosis Slight; RBC 2.99 m/uL (4.30-5.90); RDW 18.5 % (11.5-15.5); WBC 15.6 k/uL (3.8-10.6)
[2020-03-13 07:16] LABS: Calcium 8.1 mg/dL (8.4-10.2); Potassium 3.9 mmol/L (3.5-5.1)
[2020-03-13] MEDS: CHLORHEXIDINE GLUCONATE 15 ML CUP MUCOUS MEM SCH ×2 (08:44→21:13)
[2020-03-13] MEDS: MORPHINE ORAL SOLN 10 MG/5 ML CUP PO SCH ×3 (08:44→21:11)
[2020-03-13] MEDS: SODIUM CHLORIDE 0.9% 1,000 ML IV SCH (09:58)
[2020-03-13] MEDS ORDERED: CHERRY FLAVOR 60 ML BOTTLE PO PRN (10:58)
[2020-03-13] MEDS: APIXABAN 2.5 MG TABLET PO SCH ×2 (11:23→21:13)
[2020-03-13] MEDS: AMIODARONE 200 MG TAB PO SCH ×2 (11:23→21:13)
[2020-03-13] MEDS: CALCIUM ACETATE 667 MG TAB PO SCH ×3 (11:23→17:49)
[2020-03-13] MEDS: THIAMINE 100 MG TAB PO SCH (11:23)
[2020-03-13] MEDS: PANTOPRAZOLE 40 MG/10 ML VIAL IVP SCH (11:24)
[2020-03-13] MEDS: ANIDULAFUNGIN 100 MG in SODIUM CHLORIDE 0.9% 100 ML IVPB SCH (11:24)
[2020-03-13 11:48] LABS: Glucose,Whole Blood 126 mg/dL (75-99)
--- NOTE | 2020-03-13 12:13 | P.PN ---
Subjective Progress Note Date: 03/13/20 This is a 69-year-old male patient who was working on his gutters when he fell off a 15 foot ladder. This was unwitnessed. He end up calling his who in turn called EMS and the patient was brought in to the emergency department. Upon arrival, the patient was hypotensive and he was in shock. The patient initial chest x-ray showed several left-sided fractures and small amount of subcutaneous air in addition to a left-sided pneumothorax. The x-ray of the pelvis showed no evidence of any fracture or dislocation. The CAT scan of the brain showed age-related atrophy and chronic small vessel ischemic changes without any acute intracranial process. CAT scan of cervical spine showed no acute abnormalities. On and has Been of the cervical spine was done and the bone and soft tissue windows showed no acute abnormalities. There was no evidence of any fracture. Along with multiple left-sided rib fractures third extending to the seventh rib. There was also spending the sedation with estima daxa grade 3 injury the patient. The patient's hemoglobin dropped to 10.5. The patient received a total of 2 L of IV fluid and 40 minutes of packed RBC. Morning hemoglobin today is At 13.4. The patient was taken to the operating room yesterday. The patient underwent a left-sided chest tube insertion. The patient also had splenectomy done and following that the patient was kept intubated on a mechanical ventilator and he was transferred to the intensive care unit. Note that the patient takes morphine outpatient basis and he has chronic pain and chronic narcotic requirements and on outpatient basis he takes morphine sulfate in the form of MS Contin 50 mg every 12 hours. Overnight, the patient was intubated on mechanical ventilator. He was sedated with a combination of propofol and he was also placed on morphine drip after being given several boluses control his pain. This morning, Profore is running at 70 mg per KG per minute. Morphine is running at 8 mg an hour. The patient is on normal saline at rate of 85 mL an hour. The patient has a left sided chest tube. Total amount of output is in order 110 mL of serosanguineous material without evidence of any air leak. The ventilator setting shows an assist- control mode rate of 20 with a tidal volume of 500 and FiO2 of 40% with a PEEP of 5. The patient's FiO2 is down to 40% overnight. The morning blood gases showed a pH of 7.4 with a pCO2 of 37 and pO2 of 121. The chest x-ray from this morning shows that the patient has an indwelling left-sided chest tube without any signs or pneumothorax. There is also a basilar pleural-based opacity along with multiple left-sided rib fractures and ET tube is in a good location. He is at approximately slightly swollen probably related to an infiltrated IV. He did not require any pressors. He remains hemodynamically stable. Lactic acid remains slightly elevated at 2.9 On 03/04/2020, the patient is being seen for a follow-up. The patient this morning is sedated with propofol at 50 mg per KG per minute. The patient is posterior Tibial Insertion. He Has a Bivona Tracheostomy Tube in Place. The Patient Is on a Mechanical Ventilator on Assist Control Mode at the Rate of 20 with a Tidal Volume of 500 and FiO2 of 50% with a PEEP of 10. The Blood Gases from Today Showed a pH of 7.33 with a pCO2 of 31 and pO2 of 140 and this was on FiO2 of 50%. Chest X-Ray Still Showing Bilateral Pulmonary Infiltrates That Are Rather Diffuse. The Previous Bronchoscopy and the bronchioloalveolar lavage showed no microbial growth. Prior to that a sputum sample that was done on 02/27/2020 showed Selina albicans and a sputum sample from 02/22/2020 showed Selina albicans and Selina Krusei. The patient was treated with Eraxis and he completed the course of antibiotics. He was also on IV Zosyn since admission. Antibiotics were discontinued and the patient developed C. diff colitis that was diagnosed on 03/02/2020. He was having significant diarrhea which essentially slowed down as the patient was started on oral vancomycin to 50 mg orally every 6 hours. The abdominal wound is dry clean and intact. No abdominal distention. Urine output is diminished and the patient is producing somewhere between 10-20 mL an hour of urine output. His any significant fluid overload including significant edema in all 4 extremities and scrotal edema. There is also some a bdominal wall edema. Surgical wound site is dry clean and intact. There is no signs of any wound infection. The patient is tolerating tube feeds and he is on vital high protein at the rate of 30 mL an hour. LFTs are on the rise. The creatinine is on the resident's currently up to 4.4 on the sodium level is down to 129 and a potassium level is at 5.7. This was discussed with nephrology and the patient is going to initiate hemodialysis today. Mental status is not appropriate still. As part of further investigation, the patient underwent another CAT scan of the brain on 02/27/2020 this was negative for any acute abnormalities and the patient had some new partial investigation of the shivani ateral mastoid air cells. A lumbar puncture was also done and the patient was found to have CSF protein of 50, no nucleated white cells, 17 RBCs and glucose was 93. Cultures were negative. On 03/05/2020, the patient is being seen in follow-up. Mother the patient was started on hemodialysis yesterday as the patient was having significant amount of fluid overload and the potassium was in the rise. Just about while going on dialysis, the patient developed heart block and this was a high-grade AV block with hemodynamic instability and hypotension. Immediately, the patient was given calcium chloride and sodium bicarb pushes. His condition was stabilized. He was started on pressors and following that his cardiac rhythm normalizes back to normal sinus rhythm. He underwent hemodialysis yesterday with ultrafiltration and total of 3 L of fluid was removed. Nevertheless, the patient continues to be significant fluid overload. This morning he remains on propofol at 50 mg per KG per minute. He is on levo fed at 0.03 g per KG per minute. He is on normal saline at 50 mL an hour. He remains on a mechanical ventilator. Earlier this morning, chest x-ray was done that showed improvement by the pulmonary infiltrates. The patient had a assist-control mode of ventilation at the rate of 30 with a tidal volume of 550 and FiO2 of 50% with a PEEP of 10. The blood gas showed a pH of 7.44 with episodes of 28 and pO2 148. The patient is making minimal amount of urine output. Hemoglobin this morning was at 6.5 without evidence of any GI bleed and the patient was given a unit of packed RBC. He is receiving Nepro as enteral feeding for nutritional support. Abdomen is slightly distended. The patient has no significant residuals and is producing adequate amount of bowel movement activity. His white cell count still elevated at 42 related to C. diff colitis. Abdominal wound is dry clean and intact. Less of the cultures were all negative for now. 03/06/20202019, the patient is being seen for a follow-up in the intensive care unit. I elected discussion with the patient's family. I met the daughters and also did a conference call with one of the daughters and we discussed the patient's condition at length and I updated them on his condition. Upon family's request, I initiated the transfer to [facility]. I had a discussion with Dr. Caraballo, trauma surgeon at [facility] who so no need for this patient to be transferred as the medical management that we have offered to this patient has been optimal and up to standard. In summary, today's evaluation, the patient is on a low dose of propofol running between 15 and 30 mg per KG per minute. He grimaces to painful stimulation. He is not following commands. He was given another session of dialysis this morning and the patient's blood pressure slightly dropped during hemodialysis and he is being supported with norepinephrine infusion for blood pressure support. The goal is to remove around 3 L of fluid in addition to hemodialysis. The patient is currently on assist control mode of ventilation at the tidal volume of 500, FiO2 of 40% with a PEEP of 5 and a rate of 30. The blood gases showed a pH of 7.45 with a pCO2 of 31 and pO2 of 84. Chest x-ray still unchanged compared to yesterday with bilateral pulmonary infiltrates. Take estimated to is in a good location and the patient has no significant air leaks. LFTs are in the decline as the patient has been recovering from a shock liver. Urine output is minimal and the patient is undergoing hemodialysis. Normal saline running at 20 mL an hour and the patient on Nepro at the rate of 30 mL an hour. Creatinine is up to 4.2. I'm a bit concerned of the ongoing elevation of the white cell. I initially attributed this to C. diff colitis. The patient was placed on oral vancomycin. Nevertheless, the patient continues to have elevated. Discussed the case with the general surgery. I'm going to obtain a CAT scan of the abdomen and pelvis. I'm also going to obtain a set of blood cultures. The patient does have some ongoing bandemia which in the order of 31%. Note that he is tolerating his enteral feeding for nutritional support. He is on oral vancomycin to 50 mg by mouth every 6 hours. He is cardiac rhythm is atrial fibrillation. Note that back and forth is going into episodes of atrial fibrillation. For instance, yesterday with sinus. This morning he is in atrial fibrillation with a controlled rate. No anticoagulants have been utilized. He is on Lovenox 30 mg subcu every 24 hours. This is being administered for DVT prophylaxis. 03/07/2020, I'm seeing this patient for a follow-up. On today's evaluation, the patient is sedated with Precedex. He gradually arouses while off Precedex. Nevertheless, he has not followed any commands.. He gets a bit restless and agitated and his blood pressure goes up and based on that we have to make titration on the Precedex infusion. Earlier this morning he was on 0.7 g per KG per minute. He is on mechanical ventilator. He essentially on the same mode of respirator on assist control mode at the rate of 30 with a tidal volume of 500 and FiO2 of 40% with a PEEP of 8. Morning blood gases showed a pH of 7.46 with a pCO2 of 30 and pO2 of 88. The patient essentially riding the mechanical ventilator and based on that the necessity ventilator changes were done and dropped a respiratory rate down to 22 and I dropped a PEEP down to 6. Chest x- ray is unchanged. The there was concern of his underlying colitis knowing that his white cell count was still elevated. The patient underwent a CAT scan of the abdomen and pelvis yesterday and the CAT scan showed some increased abdominal ascites, wall thickening of the left colon and rectosigmoid colon which is consistent with underlying colitis. He remains on oral vancomycin 5 mg 4 times a day. He is also on IV Flagyl for now and this was admitted by infectious disease. White cell count elevated at 50. The patient is afebrile. The patient is tolerating his enteral feeding. He did have a bowel movement yesterday. No diarrhea. Surgical wound site is dry clean and intact and the hemoglobin stable at 7.1. His bands are down to 8%. The patient will not have dialysis today. His BUN is 83 with a creatinine of 4.0. Rest of the electrodes are stable. Shock liver is improving and the AST is down to 70 for ALT is down to 377 and a total protein is at 4.5. Alkaline phosphatase is 259. He continues to have edema in all 4 extremities. He had [id number] dialysis 3 days. The pro-calcitonin is elevated probably related to his underlying C. diff colitis. Blood cultures of been all negative. 03/08/2020 and seeing the patient for a follow-up. The patient has stayed on Precedex throughout the day yesterday and this morning he remains on Precedex at 0.7 g per KG per minute. Nevertheless, early in the morning hours, the patient became quite restless. Patient received a total of 4 L of morphine and 2 mg of Haldol. I saw the patient in morning. The patient was an assist-control mode of ventilation. I switched him to a VC plus mode at a tidal volume of 500 with a rate of 22 and I kept the PEEP at 4 with an FiO2 of 40%. The patient seemed to be much more relaxed on this current mode of ventilation. He was started on hemodialysis. His heart rate is in between atrial fibrillation normal sinus rhythm. Nevertheless, the patient has not required any Pressors while on hemodialysis. The patient opens up his eyes. He looks around. He does not follow any commands. At times he gets a bit restless and tachypneic. I noted that the patient's serum bicarbonate of 19. I offered some additional bicarb to improved underlying metabolic acidosis. My concern was to improve the patient's overall respiratory status. The patient Had a chest x-ray that was quite stable compared to yesterday without any major interval change. Tracheostomy tube is in a good location. The blood gas showed a pH of 7.41 with a pCO2 of 32 and pO2 of 102. The white cell count is on the decline as the patient is on a combination of IV Flagyl and oral vancomycin. Focused on was quite elevated due to C. diff colitis. No abdominal distention. Still having significant amount of third spacing and edema in the patient's overall goal is to ultrafiltrate at least 3 L on today's hemodialysis session. He has a triple-lumen catheter in his left groin and Artline his left groin. His dialysis cath is present in the right groin. No fever. No chills. No other significant events overnight. 03/09/2020, the patient is being seen for a follow-up. He remains on a canker ventilator. Remains on assist control mode at the rate of 22 with a tidal volume of 500 and a PEEP of 6 and FiO2 of 40%. Chest x-ray remains unchanged. Morning blood cultures from the patient's 7.39 with a pCO2 of 39 and pO2 of 102. No significant rest or secretions. The patient's tracheostomy tube in place. In terms of neurologic status, the patient is on Precedex at 0.4 g per KG. We're hoping to proceed with another session of dialysis this morning and following that are going to do further weaning of the Precedex and continue evaluating his mental status. As stated earlier, the patient grimaces and opens eyes spontaneously. Nevertheless is not following any commands. He seems to be less agitated. Metabolically, he is improved. He was given bicarb pushes yesterday and the serum bicarbs up to 25. His breathing is much more comfortable. LFTs continued to improve. Cardiac rhythm is back to sinus. White cell count is down to 25. Tolerating his tube feeds. Surgical wounds are dry clean and intact. Still edematous in all 4 extremities. The patient underwent a total of 3 L of ultrafiltration yesterday and we are hoping for some more for today. The triple-lumen catheter and Artline from the left femoral vein and artery were removed and the patient was given a Artline in the left upper extremity. No fever. No chills. No open wounds or sores. Extensive edema in all 4 extremities and extensive scrotal edema. 03/10/2020, the patient is off Precedex. The patient is moving all 4 extremities. His grimacing. Sometimes he gets restless. He is still not following any commands. He will be started on hemodialysis with a goal of 3 L of ultrafiltration. His volume status is improving as the patient is receiving daily dialysis sessions. He remains on the same ventilator setting. He is on a tidal volume of 500 with a PEEP of 5 and FiO2 of 40% and a respiratory rate of 22. Chest x-ray is unchanged. Blood gas shows a pH of 7.43 with a pCO2 of 36 and pO2 of 136. The patient is synchronous with the mechanical ventilator. He shock liver continues to improve. AST and ALT continue to decline. He is receiving enteral feeding for nutritional support and white cell count is down to 18.1. He was stable at 7.8. The patient continues to have episodes of atrial fibrillation. Rate is slightly tachycardic today. May need to be started on Cardizem drip for rate control and the patient be also started on Eliquis is along for medical record notes regarding his proximal atrial fibrillation. The patient has a clear surgical wound site. He is off Precedex mental status is being monitored very closely. on 03/11/2020, the patient is still being treated in intensive care unit. Mental status continues to be an ongoing issue. I daily basis he is getting dialysis and would feel that he is much more awake. However, is not still tracking or following any commands. He opens his eyes. He grimaces. He looks around. He moves all 4 extremities. At times he gets agitated. Agitation occurs mainly when he is stimulated. No seizure activity. His neurologic exam is nonfocal. He is a patient of mechanical ventilated on today's evaluation I switched him to a pressure support mode at a pressure support of 20 with a PEEP of 5 he was able to breathe spontaneously at that setting. This will be done on a trial basis. He remains on a mechanical ventilator on VC mode and the patient's earlier vent settings with a PEEP of 5 with an FiO2 of 40% and tidal volume of 500 and the rate of 22. The patient's pH from this morning was 7.48 with a pCO2 of 34 and pO2 113. Chest x-ray is unchanged. In terms of dialysis, he continues to receive daily dialysis and his STATUS continues to improve. Upper and lower extremity edema and the scrotal edema improved. No nitrite imbalance. A total of 3.5 L of ultrafiltration was done yesterday. The patient is afebrile. White cell count is at 18. Progesterone level is improving. He is receiving enteral feeding for nutritional support. Surgical wound site is dry clean and intact. He has a PICC line and has also an art line in his radial artery. LFTs continued to improve. In terms of his cardiac issue, he is on no pressors. He is having episodes of atrial fibrillation. He was placed on Cardizem drip at lower rate of 5 mg an hour he is also on Eliquis for long-term and to coagulation. He remains on amiodarone. Cardizem is being titrated to maintain a heart rate of less than 100. No major significant events overnight. His urine output is still on 03/12/2020, the patient is responsive and the patient is following commands. He looks a bit restless. Nevertheless he is able to follow commands and he was able to communicate with us. This is the first encounter with the patient was found to be fully awake and alert. The patient is having another session of hemodialysis today. He remains on a mechanical ventilator. Vent settings are essentially unchanged compared to yesterday and he is an assist-control mode rate of 22 with a tidal volume of 500 and FiO2 of 40% with a PEEP of 5. Chest x-ray findings are unchanged. The patienthowever has developed some low-grade fever and a white cell count is at 19.0. Diarrhea is not present. He is stooling. Surgical site is dry clean and intact. He has a PICC line. The blood cultures of been sent. The patient was placed on a combination of daptomycin and Diflucan. He remains on oral vancomycin and IV Flagylregarding his C. diff colitis. His cardiac rhythm is sinus. He is having approximately 2 fibrillation. The patient is on Eliquis for now. Tolerating enteral feeding for nutritional support. NG tube is in place. PEG tube is to follow. Cardizem drip was off for now. He has adequate pain control. Surgical dose has been cut down since yesterday 200 mg at bedtime. The patient had ultrafiltration was around 3-1/2 L of fluid removed yesterday and the patient is having 03/13/2020, the patient is awake and following commands He is communicating. He is still on a mechanical ventilator. Same vent settings. He is undergoing another session of dialysis with a goal of 3.5 L of ultrafiltration. He is having a low-grade fever. Sepsis workup still in progress. Blood cultures of been sent. Results are still pending for now. Meanwhile, the patient's currently covered with a combination of atelectasis, daptomycin, and he is also on IV Flagyl and oral vancomycin regarding C. diff colitis. His chest x-ray is unchanged. He is cardiac rhythm is atrial fibrillation. His blood gases from today showed a pH of 7.48 with a pCO2 of 34 and pO2 132. He is receiving enteral feeding for nutritional support. We are hoping a PEG tube insertion of a later stage. Is on lactated Ringer at the rate of 26 an hour. He states that his not having any significant pain for now. No abdominal distention. Abdominal wound his rectum and intact. I'm very happy with his overall progress. His marked improvement in his volume status and there is also marked improvement in his neurologic function is as the patient is awake and communicating and following commands and answering questions. His is doing passive range of motion. He is weak in his lower extremities and upper extremities more so in his upper extremities. He is able to move his legs and wiggle his toes and seems to be quite active in bed Objective - Vital Signs Vital signs: Vital Signs Temp 98.3 F 03/13/20 12:04 Pulse 98 03/13/20 12:04 Resp 25 H 03/13/20 12:04 BP 123/61 03/13/20 12:04 Pulse Ox 98 03/13/20 11:00 Intake & Output 03/12/20 03/13/20 03/13/20 18:59 06:59 18:59 Intake Total 918 340 200 Output Total 4170 90 3065 Balance -3252 250 -2865 Weight 88.3 kg Intake: IV 150 340 80 Sodium Chloride 0.9% 1, 150 240 80 000 ml @ 20 mls/hr IV . Q24H BETT[facility] Rx#:[id number] metroNIDAZOLE-NS PMX 500 100 mg In Saline 1 100ml.bag @ 100 mls/hr IVPB Q8HR [facility]TINA Rx#:[id number] Intake, IV Titration 468 Amount Anidulafungin 100 mg In 168 Sodium Chloride 0.9% 100 ml @ 84 mls/hr IVPB DAILY [facility] Rx#:[id number] Fluconazole in NaCl,Iso- 100 Osm 200 mg In Saline 1 100ml.bag @ 100 mls/hr IVPB DAILY BETTINA Rx#: [id number] metroNIDAZOLE-NS PMX 500 200 mg In Saline 1 100ml.bag @ 100 mls/hr IVPB Q8HR BETTINA Rx#:[id number] Tube Feeding 300 90 Other 30 Output: Urine 170 90 65 Hemodialysis 4000 3000 Other: Voiding Method Indwelling Catheter Indwelling Catheter Indwelling Catheter ABP, PAP, CO, CI - Last Documented Arterial Blood Pressure 129/50 - Exam Gen. appearance the patient is awake and following some simple commands and interacting on today's evaluation. He is a patient of mechanical ventilator. NG tube is in place. Tracheostomy tube in place. Head exam was generally normal. There was no scleral icterus or corneal arcus. Mucous membranes were moist. Neck was supple and without jugular venous distension, thyromegaly, or carotid bruits. Carotids were easily palpable bilaterally. There was no adenopathy. The patient has a tracheostomy tube in place. Lungs sounds are diminished bilaterally and the patient is a left sided chest tube in place. Chest tube is in a good location. Breath sounds are slightly diminished in left lung base compared to the right. Cardiac exam revealed the PMI to be normally situated and sized. The rhythm was irregular and no extrasystoles were noted during several minutes of au scultation. The patient is currently in atrial fibrillation. He is back and forth between atrial fibrillation and normal sinus rhythm. The first and second heart sounds were normal and physiologic splitting of the second heart sound was noted. There were no murmurs, rubs, clicks, or gallops. Abdomen is soft and nontender. The patient has a mid abdominal scar which is dry clean and intact. A surgical scar/wound is dry clean and intact. No direct distention. No rebound distention. No guarding. Bowel sounds are hypoactive at this point in time. Examination of the extremities revealed easily palpable radial, femoral and pedal pulses. There was no cyanosis, clubbing and there is development of significant edema in all 4 extremities and the patient also has scrotal edema. He continues to have significant amount of edema in all 4 extremities. Examination of the skin revealed no evidence of significant rashes, suspicious appearing nevi or other concerning lesions. Abdominal wound site is dry clean and intact. Neurologic the patient is opening his eyes spontaneously.he is following simple commands. He is moving all 4 extremities. No focal neurological deficits. There is motor weakness in all 4 extremities specially in the upper extremities bilaterally. - Labs CBC & Chem 7: 03/13/20 06:32 03/13/20 06:32 Labs: Abnormal Lab Results - Last 24 Hours (Table) 03/12/20 03/12/20 03/12/20 Range/Units 07:37 12:27 17:55 WBC (3.8-10.6) k/uL RBC (4.30-5.90) m/uL Hgb (13.0-17.5) gm/dL Hct (39.0-53.0) % MCHC (31.0-37.0) g/dL RDW (11.5-15.5) % Neutrophils # (1.3-7.7) k/uL Monocytes # (0-1.0) k/uL Eosinophils # (0-0.7) k/uL ABG pH (7.35-7.45) ABG pCO2 (35-45) mmHg ABG pO2 (83-108) mmHg ABG Total CO2 (19-24) mmol/L ABG O2 Saturation (94-97) % Sodium (137-145) mmol/L BUN (9-20) mg/dL Creatinine (0.66-1.25) mg/dL Glucose (74-99) mg/dL POC Glucose (mg/dL) 121 H 139 H (75-99) mg/dL Calcium (8.4-10.2) mg/dL Procalcitonin 3.00 H (0.02-0.09) ng/mL 03/12/20 03/13/20 03/13/20 Range/Units 23:27 05:16 05:44 WBC (3.8-10.6) k/uL RBC (4.30-5.90) m/uL Hgb (13.0-17.5) gm/dL Hct (39.0-53.0) % MCHC (31.0-37.0) g/dL RDW (11.5-15.5) % Neutrophils # (1.3-7.7) k/uL Monocytes # (0-1.0) k/uL Eosinophils # (0-0.7) k/uL ABG pH 7.48 H (7.35-7.45) ABG pCO2 34 L (35-45) mmHg ABG pO2 132 H (83-108) mmHg ABG Total CO2 26 H (19-24) mmol/L ABG O2 Saturation 99.1 H (94-97) % Sodium (137-145) mmol/L BUN (9-20) mg/dL Creatinine (0.66-1.25) mg/dL Glucose (74-99) mg/dL POC Glucose (mg/dL) 125 H 130 H (75-99) mg/dL Calcium (8.4-10.2) mg/dL Procalcitonin (0.02-0.09) ng/mL 03/13/20 03/13/20 03/13/20 Range/Units 06:32 06:32 11:46 WBC 15.6 H (3.8-10.6) k/uL RBC 2.99 L (4.30-5.90) m/uL Hgb 8.3 L (13.0-17.5) gm/dL Hct 28.4 L (39.0-53.0) % MCHC 29.2 L (31.0-37.0) g/dL RDW 18.5 H (11.5-15.5) % Neutrophils # 10.0 H (1.3-7.7) k/uL Monocytes # 2.0 H (0-1.0) k/uL Eosinophils # 1.0 H (0-0.7) k/uL ABG pH (7.35-7.45) ABG pCO2 (35-45) mmHg ABG pO2 (83-108) mmHg ABG Total CO2 (19-24) mmol/L ABG O2 Saturation (94-97) % Sodium 135 L (137-145) mmol/L BUN 59 H (9-20) mg/dL Creatinine 2.74 H (0.66-1.25) mg/dL Glucose 130 H (74-99) mg/dL POC Glucose (mg/dL) 126 H (75-99) mg/dL Calcium 8.1 L (8.4-10.2) mg/dL Procalcitonin (0.02-0.09) ng/mL Microbiology - Last 24 Hours (Table) 03/12/20 09:05 Urine Culture - Final Urine,Voided 03/12/20 17:22 Gram Stain - Preliminary Sputum Sputum Culture - Preliminary 03/11/20 17:55 Blood Culture - Preliminary Blood No Growth after 24 hours 03/06/20 08:45 Blood Culture - Final Blood No Growth after 144 hours Assessment and Plan Plan: 1 fall off a ladder with significant trauma to the chest and abdomen. The patient had sustained left-sided rib fractures, splenic rupture postsplenectomy, and a left-sided pneumothorax. 2 traumatic grade 3 laceration of the spleen along with hemoperitoneum and the patient is post splenectomy and the patient is postop day and the patient had the surgery on 02/17/2020. 3 traumatic left-sided rib fractures third drip through seventh rib along with a 30% left-sided pneumothorax post chest tube insertion with adequate expansion of the left lung. The left-sided chest tube was removed. 4 shock at the time of admission, essentially due to hemorrhagic shock, recovered 5 Acute kidney injury with massive fluid overload ,markedly improved with dialysis. Urine output is minimal. The patient is still requiring daily Dialysis.Marked improvement in the volume status. 6 acute ventilator-dependent respiratory failure, hypoxic, secondary to above. The patient's overall pulmonary status is stable. the patient will be given daily trials with pressure support. 7 chronic neck pain and the patient had been taken MS Contin on outpatient basis 15 mg twice a day 8 coronary artery disease with a previous bypass surgery 9 hyperlipidemia 10 BPH 11 delirium tremens/alcoholism 12 paroxysmal atrial fibrillation and the patient is currently in A. fib on oral amiodarone. the patient was started on Eliquis for long-term articulation. the patient is alternating between controlled atrial fibrillation and sinus rhythm. 13 leukocytosis, secondary to C. diff colitis, and the white cell count is stable at 19. 14 C. diff colitis currently on oral vancomycin and IV Flagyl., white cell count remains elevated . The patient diarrhea has subsided and the patient has his FMS removed. The patient on oral vancomycin and Flagyl. 15 anemia, multifactorial, chronic, hemoglobin is stable 16, acute hepatic injury, shock liver with LFTs are essentially improving for now. No significant coagulopathy. 17 episodes of fever, and the patient is undergoing further investigation with blood cultures and urine cultures and the patient was given empiric antibiotic coverage with daptomycin and he was also given Eraxis Plan Continue ventilator support daily trials of pressure support mode of ventilation with a pressure support no sedation for now as the patient is calm ag commands morphine 10 mg every 8 hours [id number] for pain control Complete dialysisand the patient had an ultrafiltration of 3-1/2 L yesterday. Monitor mental status and the patient continues improving recommend another session of hemodialysis today Continue oral vancomycin regarding C. diff colitis and the patient is on Flagyl fever workup with blood cultures and urine cultures. The patient is still having low-grade fe Daptomycin and Eraxis was added by infectious disease, the cultures are all n egative for now. We'll continue to follow, consider a PEG tube insertion sometime next week We'll continue to follow. The patient is critically ill, and the patient will monitored very closely in the ICU. This is a critically care evaluation that was on a more than 30 minutes. Time with Patient: Greater than 30
[2020-03-13] MEDS ORDERED: METOPROLOL TARTRATE 25 MG TAB PO SCH (12:15)
--- NOTE | 2020-03-13 12:41 | P.PN ---
Subjective Progress Note Date: 03/13/20 CHIEF COMPLAINT: A. fib HISTORY OF PRESENT ILLNESS: Patient examined this morning at the bedside. He remains on mechanical ventilation. Telemetry reveals atrial fibrillation with uncontrolled heart rate in the 110-120s. Blood pressure 156/78. Hemoglobin 8.3. Creatinine 2.74. PHYSICAL EXAM: VITAL SIGNS: Reviewed. GENERAL: Well-developed in no acute distress. NECK: Supple. No JVD or thyromegaly LUNGS: Respirations even and unlabored. Lungs essentially clear to auscultation bilaterally. HEART: Irregular rate and rhythm. S1 and S2 heard. EXTREMITIES: Normal range of motion. No clubbing or cyanosis. Peripheral pulses intact. No lower extremity edema ASSESSMENT: Paroxysmal atrial fibrillation Trauma, s/p fall from ladder resulting in left-sided rib fractures, splenic rupture and left-sided pneumothorax, status post splenectomy Acute kidney injury Coronary artery disease with previous CABG Hyperlipidemia PLAN: Continue amiodarone Resume Cardizem drip at 5 mg an hour for optimal heart rate control Continue telemetry monitoring Continue Eliquis for anticoagulation Nurse practitioner note has been reviewed by physician. Signing provider agrees with the documented findings, assessment, and plan of care. Objective - Vital Signs Vital signs: Vital Signs Temp 98.3 F 03/13/20 12:04 Pulse 98 03/13/20 12:04 Resp 25 H 03/13/20 12:04 BP 123/61 03/13/20 12:04 Pulse Ox 98 03/13/20 11:00 Intake & Output 03/12/20 03/13/20 03/13/20 18:59 06:59 18:59 Intake Total 918 340 200 Output Total 4170 90 3065 Balance -3252 250 -2865 Weight 88.3 kg Intake: IV 150 340 80 Sodium Chloride 0.9% 1, 150 240 80 000 ml @ 20 mls/hr IV . Q24H [facility] Rx#:[id number] metroNIDAZOLE-NS PMX 500 100 mg In Saline 1 100ml.bag @ 100 mls/hr IVPB Q8HR [facility] Rx#:[id number] Intake, IV Titration 468 Amount Anidulafungin 100 mg In 168 Sodium Chloride 0.9% 100 ml @ 84 mls/hr IVPB DAILY [facility] Rx#:[id number] Fluconazole in NaCl,Iso- 100 Osm 200 mg In Saline 1 100ml.bag @ 100 mls/hr IVPB DAILY [facility] Rx#: [id number] metroNIDAZOLE-NS PMX 500 200 mg In Saline 1 100ml.bag @ 100 mls/hr IVPB Q8HR [facility] Rx#:[id number] Tube Feeding 300 90 Other 30 Output: Urine 170 90 65 Hemodialysis 4000 3000 Other: Voiding Method Indwelling Catheter Indwelling Catheter Indwelling Catheter ABP, PAP, CO, CI - Last Documented Arterial Blood Pressure 129/50 - Labs CBC & Chem 7: 03/13/20 06:32 03/13/20 06:32 Labs: Abnormal Lab Results - Last 24 Hours (Table) 03/12/20 03/12/20 03/12/20 Range/Units 07:37 12:27 17:55 WBC (3.8-10.6) k/uL RBC (4.30-5.90) m/uL Hgb (13.0-17.5) gm/dL Hct (39.0-53.0) % MCHC (31.0-37.0) g/dL RDW (11.5-15.5) % Neutrophils # (1.3-7.7) k/uL Monocytes # (0-1.0) k/uL Eosinophils # (0-0.7) k/uL ABG pH (7.35-7.45) ABG pCO2 (35-45) mmHg ABG pO2 (83-108) mmHg ABG Total CO2 (19-24) mmol/L ABG O2 Saturation (94-97) % Sodium (137-145) mmol/L BUN (9-20) mg/dL Creatinine (0.66-1.25) mg/dL Glucose (74-99) mg/dL POC Glucose (mg/dL) 121 H 139 H (75-99) mg/dL Calcium (8.4-10.2) mg/dL Procalcitonin 3.00 H (0.02-0.09) ng/mL 03/12/20 03/13/20 03/13/20 Range/Units 23:27 05:16 05:44 WBC (3.8-10.6) k/uL RBC (4.30-5.90) m/uL Hgb (13.0-17.5) gm/dL Hct (39.0-53.0) % MCHC (31.0-37.0) g/dL RDW (11.5-15.5) % Neutrophils # (1.3-7.7) k/uL Monocytes # (0-1.0) k/uL Eosinophils # (0-0.7) k/uL ABG pH 7.48 H (7.35-7.45) ABG pCO2 34 L (35-45) mmHg ABG pO2 132 H (83-108) mmHg ABG Total CO2 26 H (19-24) mmol/L ABG O2 Saturation 99.1 H (94-97) % Sodium (137-145) mmol/L BUN (9-20) mg/dL Creatinine (0.66-1.25) mg/dL Glucose (74-99) mg/dL POC Glucose (mg/dL) 125 H 130 H (75-99) mg/dL Calcium (8.4-10.2) mg/dL Procalcitonin (0.02-0.09) ng/mL 03/13/20 03/13/20 03/13/20 Range/Units 06:32 06:32 11:46 WBC 15.6 H (3.8-10.6) k/uL RBC 2.99 L (4.30-5.90) m/uL Hgb 8.3 L (13.0-17.5) gm/dL Hct 28.4 L (39.0-53.0) % MCHC 29.2 L (31.0-37.0) g/dL RDW 18.5 H (11.5-15.5) % Neutrophils # 10.0 H (1.3-7.7) k/uL Monocytes # 2.0 H (0-1.0) k/uL Eosinophils # 1.0 H (0-0.7) k/uL ABG pH (7.35-7.45) ABG pCO2 (35-45) mmHg ABG pO2 (83-108) mmHg ABG Total CO2 (19-24) mmol/L ABG O2 Saturation (94-97) % Sodium 135 L (137-145) mmol/L BUN 59 H (9-20) mg/dL Creatinine 2.74 H (0.66-1.25) mg/dL Glucose 130 H (74-99) mg/dL POC Glucose (mg/dL) 126 H (75-99) mg/dL Calcium 8.1 L (8.4-10.2) mg/dL Procalcitonin (0.02-0.09) ng/mL Microbiology - Last 24 Hours (Table) 03/12/20 09:05 Urine Culture - Final Urine,Voided 03/12/20 17:22 Gram Stain - Preliminary Sputum Sputum Culture - Preliminary 03/11/20 17:55 Blood Culture - Preliminary Blood No Growth after 24 hours 03/06/20 08:45 Blood Culture - Final Blood No Growth after 144 hours
[2020-03-13] MEDS: DILTIAZEM 125 MG in SODIUM CHLORIDE 0.9% 100 ML IV SCH (12:49)
--- NOTE | 2020-03-13 15:22 | PN ---
PROGRESS NOTE Patient is seen for followup for acute kidney injury. He is currently awake. He remains on the vent. Patient is seen on hemodialysis, tolerating his treatment well. PHYSICAL EXAMINATION: On examination today, blood pressure was 123/61, heart rate 98 per minute, he is afebrile. Examination of the heart S1, S2. Examination of the lungs, bilateral breath sounds are heard. Abdomen is soft, nontender. Examination of lower extremities shows edema 2+ bilaterally with significant scrotal edema noted as well. LAB: Show sodium 135, potassium 3.9, BUN 59, creatinine 2.74, hemoglobin 8.3 g/dL. ASSESSMENT: 1. Acute kidney injury, acute tubular necrosis, currently oliguric and hemodialysis dependent. Next dialysis will be on Sunday. We will hold off on dialysis tomorrow. 2. Severe volume overload, currently improving. 3. Encephalopathy, now resolved. Mentation has improved significantly. 4. Hypoxic respiratory failure. The patient is on the vent, currently with trach and PEG tube. 5. Encephalopathy, now improved significantly. 6. Metabolic acidosis ,now resolved. 7. Clostridium difficile colitis, improved. 8. Hyperphosphatemia, maintained on phosphate binders. 9. Fungemia, maintained on anti fungal treatment. PLAN: Check phosphorus levels, DC PhosLo if phos is within range. Hold hemodialysis tomorrow. Next dialysis will be on March 15. MMODL / IJN: [id number] /
--- NOTE | 2020-03-13 17:04 | PN ---
PROGRESS NOTE DATE OF SERVICE: 03/13/2020 REASON FOR FOLLOWUP: 1. C difficile colitis. 2. Oropharyngeal candidiasis. INTERVAL HISTORY: Patient is currently afebrile. The patient is hemodynamically stable not on any pressor support. FiO2 is currently stable at 40%. The patient is awake and alert and did respond to some simple questions. Has been tolerating his tube feeds. No recent diarrhea has been reported by nursing staff. PHYSICAL EXAMINATION: Blood pressure is 150/67, pulse of 90, temperature 98.3. He is 97% on 40% FiO2. General description is an elderly male lying in bed in no distress. Respiratory system: Unlabored breathing, decreased breath sounds at the bases. No wheeze. Heart S1, S2. Regular rate and rhythm. ABDOMEN: Soft, no tenderness. LABS: Hemoglobin 8.8, white count 15.6, BUN of 59, creatinine 2.74. DIAGNOSTIC IMPRESSION/PLAN: 1. Patient with C difficile colitis seemed to have shown clinical improvement. We will discontinue the Flagyl. Continue with Vanco, we will cut down the dose to 250 q.6h. 2. Patient with oropharyngeal candidiasis continue with Eraxis. 3. The patient with new fever responded to the daptomycin, in addition cultures so far negative. If remains to be negative, we will discontinue it and monitor clinical course closely. MMODL / IJN: [id number] /
--- NOTE | 2020-03-13 17:15 | P.PN ---
Subjective Progress Note Date: 03/13/20 Principal diagnosis: Fall with Trauma to chest and abdomen Hemoperitoneum with ruptured spleen status post emergent splenectomy Status post tracheostomy for respiratory failure Left-sided pneumothorax has chest tube in place Multiple left-sided rib fractures 03/12/2020, the patient is seen and evaluated for follow-up; follows commands; session of hemodialysis in progress today. He remains on a mechanical ventilator. Chest x-ray findings are unchanged; patient has some low-grade fever and a white cell count is at 19.0. Diarrhea is not present. He is stooling. Surgical site is dry clean and intact. He has a PICC line. The blood cultures of been sent. The patient was placed on a combination of daptomycin and Diflucan. He remains on oral vancomycin and IV Flagylregarding his C. diff colitis. His cardiac rhythm is sinu; remains on Eliquis for now. Tolerating enteral feeding for nutritional support. NG tube is in place. PEG tube is to follow. 03/13/2020, the patient is seen and evaluated in ICU; currently awake and following commands; remains on a mechanical ventilator. Same vent settings. He is u ndergoing another session of dialysis. He is having a low-grade fever. Sepsis workup still in progress. Blood cultures of been sent. Results are still pending for now. Meanwhile, the patient's currently covered with a combination of Eraxis, daptomycin, and he is also on IV Flagyl and oral vanc omycin regarding C. diff colitis. His chest x-ray is unchanged. He is cardiac rhythm is atrial fibrillation. He is receiving enteral feeding for nutritional support. Plan is for possible PEG tube placement Objective - Vital Signs Vital signs: Vital Signs Temp 98.3 F 03/13/20 12:04 Pulse 100 03/13/20 13:00 Resp 24 03/13/20 13:00 BP 119/61 03/13/20 13:00 Pulse Ox 97 03/13/20 13:00 Intake & Output 03/12/20 03/13/20 03/13/20 18:59 06:59 18:59 Intake Total 918 340 461.583 Output Total 4170 90 3095 Balance -3252 250 -2633.417 Weight 88.3 kg Intake: IV 150 340 140 Sodium Chloride 0.9% 1, 150 240 140 000 ml @ 20 mls/hr IV . Q24H [facility] Rx#:[id number] metroNIDAZOLE-NS PMX 500 100 mg In Saline 1 100ml.bag @ 100 mls/hr IVPB Q8HR [facility] Rx#:[id number] Intake, IV Titration 468 111.583 Amount Anidulafungin 100 mg In 168 Sodium Chloride 0.9% 100 ml @ 84 mls/hr IVPB DAILY [facility] Rx#:[id number] Diltiazem 125 mg In 111.583 Sodium Chloride 0.9% 100 ml @ 5 MG/HR 5 mls/hr IV .Q24H [facility] Rx#:[id number] Fluconazole in NaCl,Iso- 100 Osm 200 mg In Saline 1 100ml.bag @ 100 mls/hr IVPB DAILY [facility] Rx#: [id number] metroNIDAZOLE-NS PMX 500 200 mg In Saline 1 100ml.bag @ 100 mls/hr IVPB Q8HR [facility] Rx#:[id number] Tube Feeding 300 180 Other 30 Output: Urine 170 90 95 Hemodialysis 4000 3000 Other: Voiding Method Indwelling Catheter Indwelling Catheter Indwelling Catheter ABP, PAP, CO, CI - Last Documented Arterial Blood Pressure 129/50 - Exam VITAL SIGNS: Reviewed. GENERAL: Well-developed in no acute distress. HEENT: No sclera icterus. Extraocular movements grossly intact. Moist buccal mucosa. Head is atraumatic, normocephalic. Trach site clean dry and intact ABDOMEN: Soft. Nondistended. Incision site clean dry and intact NEUROLOGIC: Remains intubated; does follow commands - Labs CBC & Chem 7: 03/13/20 06:32 03/13/20 06:32 Labs: Abnormal Lab Results - Last 24 Hours (Table) 03/12/20 03/12/20 03/12/20 Range/Units 07:37 17:55 23:27 WBC (3.8-10.6) k/uL RBC (4.30-5.90) m/uL Hgb (13.0-17.5) gm/dL Hct (39.0-53.0) % MCHC (31.0-37.0) g/dL RDW (11.5-15.5) % Neutrophils # (1.3-7.7) k/uL Monocytes # (0-1.0) k/uL Eosinophils # (0-0.7) k/uL ABG pH (7.35-7.45) ABG pCO2 (35-45) mmHg ABG pO2 (83-108) mmHg ABG Total CO2 (19-24) mmol/L ABG O2 Saturation (94-97) % Sodium (137-145) mmol/L BUN (9-20) mg/dL Creatinine (0.66-1.25) mg/dL Glucose (74-99) mg/dL POC Glucose (mg/dL) 139 H 125 H (75-99) mg/dL Calcium (8.4-10.2) mg/dL Procalcitonin 3.00 H (0.02-0.09) ng/mL 03/13/20 03/13/20 03/13/20 Range/Units 05:16 05:44 06:32 WBC 15.6 H (3.8-10.6) k/uL RBC 2.99 L (4.30-5.90) m/uL Hgb 8.3 L (13.0-17.5) gm/dL Hct 28.4 L (39.0-53.0) % MCHC 29.2 L (31.0-37.0) g/dL RDW 18.5 H (11.5-15.5) % Neutrophils # 10.0 H (1.3-7.7) k/uL Monocytes # 2.0 H (0-1.0) k/uL Eosinophils # 1.0 H (0-0.7) k/uL ABG pH 7.48 H (7.35-7.45) ABG pCO2 34 L (35-45) mmHg ABG pO2 132 H (83-108) mmHg ABG Total CO2 26 H (19-24) mmol/L ABG O2 Saturation 99.1 H (94-97) % Sodium (137-145) mmol/L BUN (9-20) mg/dL Creatinine (0.66-1.25) mg/dL Glucose (74-99) mg/dL POC Glucose (mg/dL) 130 H (75-99) mg/dL Calcium (8.4-10.2) mg/dL Procalcitonin (0.02-0.09) ng/mL 03/13/20 03/13/20 Range/Units 06:32 11:46 WBC (3.8-10.6) k/uL RBC (4.30-5.90) m/uL Hgb (13.0-17.5) gm/dL Hct (39.0-53.0) % MCHC (31.0-37.0) g/dL RDW (11.5-15.5) % Neutrophils # (1.3-7.7) k/uL Monocytes # (0-1.0) k/uL Eosinophils # (0-0.7) k/uL ABG pH (7.35-7.45) ABG pCO2 (35-45) mmHg ABG pO2 (83-108) mmHg ABG Total CO2 (19-24) mmol/L ABG O2 Saturation (94-97) % Sodium 135 L (137-145) mmol/L BUN 59 H (9-20) mg/dL Creatinine 2.74 H (0.66-1.25) mg/dL Glucose 130 H (74-99) mg/dL POC Glucose (mg/dL) 126 H (75-99) mg/dL Calcium 8.1 L (8.4-10.2) mg/dL Procalcitonin (0.02-0.09) ng/mL Microbiology - Last 24 Hours (Table) 03/12/20 09:05 Urine Culture - Final Urine,Voided 03/12/20 17:22 Gram Stain - Preliminary Sputum Sputum Culture - Preliminary 03/11/20 17:55 Blood Culture - Preliminary Blood No Growth after 24 hours 03/06/20 08:45 Blood Culture - Final Blood No Growth after 144 hours Assessment and Plan Assessment: 1. 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 2. Status post tracheostomy for respiratory failure 3. Status post fall off a ladder with, to chest and abdomen 4. Left-sided pneumothorax has chest tube in place 5. Multiple left-sided rib fractures 6. Alcohol intoxication 7. Acute hypoxic ventilatory dependent respiratory failure. 8. Chronic pain medication 9. Atrial fibrillation with rapid ventricular response. Patient now on Eliquis 10. C. diff colitis 11. Acute kidney injury . Followed closely by nephrology. 12. Acute blood loss anemia status post blood transfusion PLAN: -If patient continues to wake up and do well, we may not need to proceed with PEG tube placement next week. Continue to monitor. -Continue tube feedings -Continue ICU management -Continue oral vancomycin -Hemodialysis per nephrology -lovenox for DVT prophylaxis
--- NOTE | 2020-03-13 17:24 | P.PN ---
Subjective Progress Note Date: 03/13/20 Principal diagnosis: His daughter is at bedside. He is completely awake. He is following commands. NECK: Trach intact MS: No clubbing, cyanosis PLAN: 1. Continue to wean from vent as he is completely awake Objective - Vital Signs Vital signs: Vital Signs Temp 99.0 F 03/13/20 16:00 Pulse 98 03/13/20 16:00 Resp 22 03/13/20 16:00 BP 99/40 03/13/20 16:00 Pulse Ox 98 03/13/20 16:00 Intake & Output 03/12/20 03/13/20 03/13/20 18:59 06:59 18:59 Intake Total 918 340 614.583 Output Total 4170 90 3125 Balance -3252 250 -2510.417 Weight 88.3 kg Intake: IV 150 340 203 Pressure bag 3 Sodium Chloride 0.9% 1, 150 240 200 000 ml @ 20 mls/hr IV . Q24H [facility] Rx#:[id number] metroNIDAZOLE-NS PMX 500 100 mg In Saline 1 100ml.bag @ 100 mls/hr IVPB Q8HR [facility] Rx#:[id number] Intake, IV Titration 468 111.583 Amount Anidulafungin 100 mg In 168 Sodium Chloride 0.9% 100 ml @ 84 mls/hr IVPB DAILY [facility] Rx#:[id number] Diltiazem 125 mg In 111.583 Sodium Chloride 0.9% 100 ml @ 5 MG/HR 5 mls/hr IV .Q24H [facility] Rx#:[id number] Fluconazole in NaCl,Iso- 100 Osm 200 mg In Saline 1 100ml.bag @ 100 mls/hr IVPB DAILY [facility] Rx#: [id number] metroNIDAZOLE-NS PMX 500 200 mg In Saline 1 100ml.bag @ 100 mls/hr IVPB Q8HR [facility] Rx#:[id number] Tube Feeding 300 270 Other 30 Output: Urine 170 90 125 Hemodialysis 4000 3000 Other: Voiding Method Indwelling Catheter Indwelling Catheter Indwelling Catheter ABP, PAP, CO, CI - Last Documented Arterial Blood Pressure 129/50 - Labs CBC & Chem 7: 03/13/20 06:32 03/13/20 06:32 Labs: Abnormal Lab Results - Last 24 Hours (Table) 03/12/20 03/12/20 03/12/20 Range/Units 07:37 17:55 23:27 WBC (3.8-10.6) k/uL RBC (4.30-5.90) m/uL Hgb (13.0-17.5) gm/dL Hct (39.0-53.0) % MCHC (31.0-37.0) g/dL RDW (11.5-15.5) % Neutrophils # (1.3-7.7) k/uL Monocytes # (0-1.0) k/uL Eosinophils # (0-0.7) k/uL ABG pH (7.35-7.45) ABG pCO2 (35-45) mmHg ABG pO2 (83-108) mmHg ABG Total CO2 (19-24) mmol/L ABG O2 Saturation (94-97) % Sodium (137-145) mmol/L BUN (9-20) mg/dL Creatinine (0.66-1.25) mg/dL Glucose (74-99) mg/dL POC Glucose (mg/dL) 139 H 125 H (75-99) mg/dL Calcium (8.4-10.2) mg/dL Procalcitonin 3.00 H (0.02-0.09) ng/mL 03/13/20 03/13/20 03/13/20 Range/Units 05:16 05:44 06:32 WBC 15.6 H (3.8-10.6) k/uL RBC 2.99 L (4.30-5.90) m/uL Hgb 8.3 L (13.0-17.5) gm/dL Hct 28.4 L (39.0-53.0) % MCHC 29.2 L (31.0-37.0) g/dL RDW 18.5 H (11.5-15.5) % Neutrophils # 10.0 H (1.3-7.7) k/uL Monocytes # 2.0 H (0-1.0) k/uL Eosinophils # 1.0 H (0-0.7) k/uL ABG pH 7.48 H (7.35-7.45) ABG pCO2 34 L (35-45) mmHg ABG pO2 132 H (83-108) mmHg ABG Total CO2 26 H (19-24) mmol/L ABG O2 Saturation 99.1 H (94-97) % Sodium (137-145) mmol/L BUN (9-20) mg/dL Creatinine (0.66-1.25) mg/dL Glucose (74-99) mg/dL POC Glucose (mg/dL) 130 H (75-99) mg/dL Calcium (8.4-10.2) mg/dL Procalcitonin (0.02-0.09) ng/mL 03/13/20 03/13/20 Range/Units 06:32 11:46 WBC (3.8-10.6) k/uL RBC (4.30-5.90) m/uL Hgb (13.0-17.5) gm/dL Hct (39.0-53.0) % MCHC (31.0-37.0) g/dL RDW (11.5-15.5) % Neutrophils # (1.3-7.7) k/uL Monocytes # (0-1.0) k/uL Eosinophils # (0-0.7) k/uL ABG pH (7.35-7.45) ABG pCO2 (35-45) mmHg ABG pO2 (83-108) mmHg ABG Total CO2 (19-24) mmol/L ABG O2 Saturation (94-97) % Sodium 135 L (137-145) mmol/L BUN 59 H (9-20) mg/dL Creatinine 2.74 H (0.66-1.25) mg/dL Glucose 130 H (74-99) mg/dL POC Glucose (mg/dL) 126 H (75-99) mg/dL Calcium 8.1 L (8.4-10.2) mg/dL Procalcitonin (0.02-0.09) ng/mL Microbiology - Last 24 Hours (Table) 03/12/20 09:05 Urine Culture - Final Urine,Voided 03/12/20 17:22 Gram Stain - Preliminary Sputum Sputum Culture - Preliminary 03/11/20 17:55 Blood Culture - Preliminary Blood No Growth after 24 hours Assessment and Plan (1) Traumatic fracture of ribs of left side with pneumothorax Current Visit: Yes Status: Acute Code(s): S22.42XA - MULTIPLE FRACTURES OF RIBS, LEFT SIDE, INIT FOR CLOS FX; S27.0XXA - TRAUMATIC PNEUMOTHORAX, INITIAL ENCOUNTER SNOMED Code(s): 4823139 (2) Alcoholism Current Visit: Yes Status: Acute Code(s): F10.20 - ALCOHOL DEPENDENCE, UNCOMPLICATED SNOMED Code(s): 3840140 (3) Alcohol withdrawal Current Visit: Yes Status: Acute Code(s): F10.239 - ALCOHOL DEPENDENCE WITH WITHDRAWAL, UNSPECIFIED SNOMED Code(s): 728333258 (4) Chronic pain syndrome Current Visit: Yes Status: Acute Code(s): G89.4 - CHRONIC PAIN SYNDROME SNOMED Code(s): 558254313 (5) Hemorrhagic shock Current Visit: Yes Status: Acute Code(s): R57.8 - OTHER SHOCK SNOMED Code(s): 596770 (6) Post-splenectomy Current Visit: Yes Status: Acute Code(s): Z90.81 - ACQUIRED ABSENCE OF SPLEEN SNOMED Code(s): 589185786 (7) Ruptured spleen Current Visit: Yes Status: Acute Code(s): S36.09XA - OTHER INJURY OF SPLEEN, INITIAL ENCOUNTER SNOMED Code(s): 211910196
[2020-03-13 17:45] LABS: Glucose,Whole Blood 138 mg/dL (75-99)
[2020-03-13] MEDS: QUEtiapine 100 MG TAB PO SCH (21:11)
[2020-03-13] MEDS: FINASTERIDE 5 MG TAB PO SCH (21:11)
[2020-03-13] MEDS: TAMSULOSIN 0.4 MG CAP.ER.24H PO SCH (21:12)
[2020-03-13] MEDS: DAPTOmycin 500 MG in SODIUM CHLORIDE 0.9% 50 ML IVPB SCH (23:32)
[2020-03-14 00:35] LABS: Glucose,Whole Blood 135 mg/dL (75-99)
[2020-03-14] MEDS: LACTATED RINGERS 1,000 ML IV SCH ×2 (00:38→23:45)
[2020-03-14] MEDS: INSULIN ASPART (NovoLOG) 100 UNIT/ML VIAL SQ SCH ×5 (00:40→23:30)
[2020-03-14] MEDS: VANCOMYCIN ORAL SOLUTION 250 MG/5 ML BOTTLE PO SCH ×5 (00:40→23:42)
[2020-03-14] MEDS: IPRATROPIUM-ALBUTEROL 3 ML NEB INHALATION SCH ×6 (03:17→23:03)
[2020-03-14] MEDS: NOREPINEPHRINE 32 MG in SODIUM CHLORIDE 0.9% 218 ML IV SCH ×2 (05:07→21:07)
[2020-03-14 05:31] LABS: ABG Base Excess 4.3 mmol/L; ABG HCO3 27 mmol/L (21-25); ABG Oxygen Saturation 97.8 % (94-97); ABG PCO2 35 mmHg (35-45); ABG PO2 92 mmHg (83-108); ABG TCO2 29 mmol/L (19-24); Allen Test Performed? Yes
[2020-03-14 06:21] LABS: Glucose,Whole Blood 132 mg/dL (75-99)
[2020-03-14 06:27] LABS: Anisocytosis Slight; Basophils # (A) 0.1 k/uL (0-0.2); Basophils % (A) 1 %; Eosinophils # (A) 0.2 k/uL (0-0.7); Eosinophils % (A) 1 %; HCT 29.3 % (39.0-53.0); HGB 8.7 gm/dL (13.0-17.5); Hypochromasia Marked; Lymphocytes # (A) 1.6 k/uL (1.0-4.8); Lymphocytes % (A) 9 %; MCH 27.8 pg (25.0-35.0); MCHC 29.9 g/dL (31.0-37.0); MCV 93.2 fL (80.0-100.0); Monocytes # (A) 1.8 k/uL (0-1.0); Monocytes % (A) 11 %; Neutrophils # (A) 12.8 k/uL (1.3-7.7); Neutrophils % (A) 76 %; Platelet Count 357 k/uL (150-450); Poikilocytosis Slight; RBC 3.14 m/uL (4.30-5.90)
[2020-03-14 06:36] LABS: Calcium 8.1 mg/dL (8.4-10.2); Phosphorus 4.8 mg/dL (2.5-4.5); Potassium 4.5 mmol/L (3.5-5.1)
--- NOTE | 2020-03-14 08:01 | XR ---
EXAMINATION TYPE: XR chest 1V portable DATE OF EXAM: 03/14/2020 COMPARISON: Prior chest 03/13/2020 HISTORY: Pneumonia TECHNIQUE: Single frontal view of the chest is obtained. FINDINGS: Tracheostomy tube, NG tube are stable and overlying appropriate positions. Patient is post median sternotomy. Postop changes are noted to the cervical spine. Patient is rotated. There is no e vident pneumothorax. Left-sided PICC line shows the distal tip overlying the superior vena cava. Ther e is some improvement in aeration, lung volume. Persistent bilateral patchy densities are noted withi n the lungs however. IMPRESSION: Some interval improvement in aeration is suspected, improved lung volume
[2020-03-14] MEDS ORDERED: ACETAMINOPHEN IV (For NPO) 1,000 MG in EMPTY BAG 1 BAG IVPB PRN (08:08)
[2020-03-14] MEDS: THIAMINE 100 MG TAB PO SCH (08:26)
[2020-03-14] MEDS: APIXABAN 2.5 MG TABLET PO SCH ×2 (08:26→20:28)
[2020-03-14] MEDS: AMIODARONE 200 MG TAB PO SCH ×2 (08:26→20:28)
[2020-03-14] MEDS: PANTOPRAZOLE 40 MG/10 ML VIAL IVP SCH (08:26)
[2020-03-14] MEDS: CALCIUM ACETATE 667 MG TAB PO SCH ×3 (08:26→15:27)
[2020-03-14] MEDS: MORPHINE ORAL SOLN 10 MG/5 ML CUP PO SCH ×3 (08:26→23:33)
[2020-03-14] MEDS: CHLORHEXIDINE GLUCONATE 15 ML CUP MUCOUS MEM SCH ×2 (08:26→23:30)
[2020-03-14] MEDS: ANIDULAFUNGIN 100 MG in SODIUM CHLORIDE 0.9% 100 ML IVPB SCH (08:27)
--- NOTE | 2020-03-14 08:52 | XR ---
EXAMINATION TYPE: XR chest 1V DATE OF EXAM: 03/14/2020 COMPARISON: Prior chest x-ray dated 03/14/2020 HISTORY: Difficulty breathing, respiratory distress TECHNIQUE: Single frontal view of the chest is obtained. FINDINGS: Tracheostomy tube and NG tube are stable, patient is post median sternotomy. Pleural paren chymal changes show no significant interval change. PICC line is unchanged. There is no pneumothorax. There is tenting of the lateral aspect of the left hemidiaphragm, patchy bilateral densities, promin ence of interstitium again noted. IMPRESSION: Findings are similar to prior exam. Difficult to exclude airspace disease, there may be chronic pleural reaction at the left lung base, underlying pleural effusion
[2020-03-14] MEDS: SODIUM CHLORIDE 0.9% 1,000 ML IV SCH (09:01)
[2020-03-14] MEDS: DEXMEDETOMIDINE/0.9% NACL(PMX) 400 MCG in EMPTY BAG 1 BAG IV SCH ×2 (09:05→16:26)
[2020-03-14] MEDS ORDERED: MEROPENEM 1 GM in SODIUM CHLORIDE 0.9% 100 ML IVPB STA (09:08)
--- NOTE | 2020-03-14 10:13 | XR ---
Abdomen HISTORY: Pain Frontal view the abdomen on 2 images, correlation CT 03/06/2020 Surgical clips present along the midline. Distended bowel thought to be: is present in the right guerita abdomen with associated contrast material present. More distal colon appears decompressed and does sh ow some contrast Metallic coils are present in the left lower quadrant. There is a right femoral veno us catheter in place. No evident pneumoperitoneum. NG tube is present with the distal tip overlying s tomach. IMPRESSION: Findings suggest at least a partial bowel obstruction.
[2020-03-14] MEDS: methylPREDNISolone SOD SUCCI 125 MG/2 ML VIAL IV SCH ×3 (10:14→23:32)
--- NOTE | 2020-03-14 10:15 | PN ---
PROGRESS NOTE Patient is seen for followup for acute kidney injury. He has been maintained on daily dialysis for the whole of last week. The patient will not be dialyzed today. He has been awake and following commands. However, this morning it looks like he has had some aspiration. Tube feedings were noted in the tracheostomy tube. He is currently n.p.o. The patient remains on the vent. PHYSICAL EXAMINATION: Blood pressure was 126/74, temperature 101.8, heart rate 112 per minute, he is afebrile. Examination of the heart S1, S2. Examination of the lungs, bilateral breath sounds are heard. Abdomen is soft. Examination of lower extremities shows much improved edema. Scrotal edema is also improved. [employer] exam shows patient is moving all 4 extremities. LAB: Show sodium 135, potassium 4.5, BUN 63, creatinine 2.78, hemoglobin 8.7 g/dL. ASSESSMENT: 1. Acute kidney injury, acute tubular necrosis, currently oliguric with some improvement in urine output. We will continue to monitor. Patient will be dialyzed again tomorrow and we can keep him on a Sunday, Sunday, Sunday schedule from next week. 2. Fever with aspiration noted this morning. 3. Hypoxic respiratory failure status post trach and PEG. 4. Volume overload, currently significantly improved. 5. Clostridium difficile colitis, now improved. 6. Metabolic acidosis, currently resolved. Sodium bicarb has been discontinued. PLAN: Hemodialysis in a.m. and then we can maintain the patient on a Sunday, Sunday, Sunday schedule if his volume status continues to improve. MMODL / IJN: [id number] /
--- NOTE | 2020-03-14 11:35 | P.PN ---
Subjective Progress Note Date: 03/14/20 He is resting comfortably. He has been following commands. No new complaints today. Patient on multiple antibiotics. He is on ventilatory support. NECK: Trach intact. ABDOMEN: No peritonitis RESPIRATOR: On mechanical ventilation PLAN: 1. Per request of critical care team, PEG tube placement for inability to wean off vent and nutritional support. 2. Continue antibiotics Objective - Vital Signs Vital signs: Vital Signs Temp 98.2 F 03/14/20 10:00 Pulse 96 03/14/20 11:00 Resp 26 H 03/14/20 11:00 BP 125/72 03/14/20 11:00 Pulse Ox 94 L 03/14/20 11:00 Intake & Output 03/13/20 03/14/20 03/14/20 18:59 06:59 18:59 Intake Total 744.583 750 146.667 Output Total 3155 160 120 Balance -2410.417 590 26.667 Weight 88.5 kg 88.5 kg Intake: IV 243 290 100 DAPTOmycin 500 mg In 50 Sodium Chloride 0.9% 50 ml @ 100 mls/hr IVPB Q48H [facility] Rx#:[id number] Pressure bag 3 Sodium Chloride 0.9% 1, 240 240 100 000 ml @ 20 mls/hr IV . Q24H [facility] Rx#:[id number] Intake, IV Titration 111.583 16.667 Amount Dexmedetomidine/0.9% NaCl 16.667 (Pmx) 400 mcg In Empty Bag 1 bag @ Titrate IV . Q0M [facility] Rx#:[id number] Diltiazem 125 mg In 111.583 Sodium Chloride 0.9% 100 ml @ 5 MG/HR 5 mls/hr IV .Q24H [facility] Rx#:[id number] Tube Feeding 330 330 0 Other 60 130 30 Output: Urine 155 160 120 Hemodialysis 3000 Other: Voiding Method Indwelling Catheter Indwelling Catheter Indwelling Catheter # Bowel Movements 1 ABP, PAP, CO, CI - Last Documented Arterial Blood Pressure 129/50 - Labs CBC & Chem 7: 03/14/20 05:37 03/14/20 05:37 Labs: Abnormal Lab Results - Last 24 Hours (Table) 03/13/20 03/13/20 03/13/20 Range/Units 06:32 11:46 17:43 WBC (3.8-10.6) k/uL RBC (4.30-5.90) m/uL Hgb (13.0-17.5) gm/dL Hct (39.0-53.0) % MCHC (31.0-37.0) g/dL RDW (11.5-15.5) % Neutrophils # (1.3-7.7) k/uL Monocytes # (0-1.0) k/uL ABG pH (7.35-7.45) ABG HCO3 (21-25) mmol/L ABG Total CO2 (19-24) mmol/L ABG O2 Saturation (94-97) % Sodium (137-145) mmol/L BUN (9-20) mg/dL Creatinine (0.66-1.25) mg/dL Glucose (74-99) mg/dL POC Glucose (mg/dL) 126 H 138 H (75-99) mg/dL Calcium (8.4-10.2) mg/dL Phosphorus (2.5-4.5) mg/dL Procalcitonin 2.56 H (0.02-0.09) ng/mL 03/14/20 03/14/20 03/14/20 Range/Units 00:33 05:26 05:37 WBC (3.8-10.6) k/uL RBC (4.30-5.90) m/uL Hgb (13.0-17.5) gm/dL Hct (39.0-53.0) % MCHC (31.0-37.0) g/dL RDW (11.5-15.5) % Neutrophils # (1.3-7.7) k/uL Monocytes # (0-1.0) k/uL ABG pH 7.50 H (7.35-7.45) ABG HCO3 27 H (21-25) mmol/L ABG Total CO2 29 H (19-24) mmol/L ABG O2 Saturation 97.8 H (94-97) % Sodium 135 L (137-145) mmol/L BUN 63 H (9-20) mg/dL Creatinine 2.78 H (0.66-1.25) mg/dL Glucose 119 H (74-99) mg/dL POC Glucose (mg/dL) 135 H (75-99) mg/dL Calcium 8.1 L (8.4-10.2) mg/dL Phosphorus 4.8 H (2.5-4.5) mg/dL Procalcitonin (0.02-0.09) ng/mL 03/14/20 03/14/20 Range/Units 05:37 06:20 WBC 17.0 H (3.8-10.6) k/uL RBC 3.14 L (4.30-5.90) m/uL Hgb 8.7 L (13.0-17.5) gm/dL Hct 29.3 L (39.0-53.0) % MCHC 29.9 L (31.0-37.0) g/dL RDW 18.0 H (11.5-15.5) % Neutrophils # 12.8 H (1.3-7.7) k/uL Monocytes # 1.8 H (0-1.0) k/uL ABG pH (7.35-7.45) ABG HCO3 (21-25) mmol/L ABG Total CO2 (19-24) mmol/L ABG O2 Saturation (94-97) % Sodium (137-145) mmol/L BUN (9-20) mg/dL Creatinine (0.66-1.25) mg/dL Glucose (74-99) mg/dL POC Glucose (mg/dL) 132 H (75-99) mg/dL Calcium (8.4-10.2) mg/dL Phosphorus (2.5-4.5) mg/dL Procalcitonin (0.02-0.09) ng/mL Microbiology - Last 24 Hours (Table) 03/12/20 09:30 Gram Stain - Preliminary Neck Wound Culture - Preliminary Gram Neg Bacilli 03/11/20 17:55 Blood Culture - Preliminary Blood No Growth after 48 hours 03/12/20 09:30 Anaerobic Culture - Preliminary Neck 03/12/20 09:05 Urine Culture - Final Urine,Voided 03/12/20 17:22 Gram Stain - Preliminary Sputum Sputum Culture - Preliminary Assessment and Plan (1) Traumatic fracture of ribs of left side with pneumothorax Current Visit: Yes Status: Acute Code(s): S22.42XA - MULTIPLE FRACTURES OF RIBS, LEFT SIDE, INIT FOR CLOS FX; S27.0XXA - TRAUMATIC PNEUMOTHORAX, INITIAL ENCOUNTER SNOMED Code(s): 9729647 (2) Alcoholism Current Visit: Yes Status: Acute Code(s): F10.20 - ALCOHOL DEPENDENCE, UNCOMPLICATED SNOMED Code(s): 1824886 (3) Alcohol withdrawal Current Visit: Yes Status: Acute Code(s): F10.239 - ALCOHOL DEPENDENCE WITH WITHDRAWAL, UNSPECIFIED SNOMED Code(s): 463376972 (4) Chronic pain syndrome Current Visit: Yes Status: Acute Code(s): G89.4 - CHRONIC PAIN SYNDROME SNOMED Code(s): 684040270 (5) Hemorrhagic shock Current Visit: Yes Status: Acute Code(s): R57.8 - OTHER SHOCK SNOMED Code(s): 483770 (6) Post-splenectomy Current Visit: Yes Status: Acute Code(s): Z90.81 - ACQUIRED ABSENCE OF SPLEEN SNOMED Code(s): 843659800 (7) Ruptured spleen Current Visit: Yes Status: Acute Code(s): S36.09XA - OTHER INJURY OF SPLEEN, INITIAL ENCOUNTER SNOMED Code(s): 956692222
[2020-03-14] MEDS ORDERED: NA PHOS,M-B/NA PHOS,DI-BA 133 ML ENEMA RECTAL ONE (11:52)
--- NOTE | 2020-03-14 12:04 | P.PN ---
Subjective Progress Note Date: 03/14/20 CHIEF COMPLAINT: A. fib HISTORY OF PRESENT ILLNESS: Patient examined this morning at the bedside. He remains on mechanical ventilation. Telemetry reveals atrial fibrillation with HR 90-100s. Blood pressure 125/72. Patient with a temperature of 101.8 this morning. He is on multiple antibiotics. PHYSICAL EXAM: VITAL SIGNS: Reviewed. GENERAL: Well-developed in no acute distress. NECK: Supple. No JVD or thyromegaly LUNGS: Respirations even and unlabored. Lungs diminished. HEART: Irregular rate and rhythm. S1 and S2 heard. EXTREMITIES: Normal range of motion. No clubbing or cyanosis. Peripheral pulses intact. No lower extremity edema ASSESSMENT: Paroxysmal atrial fibrillation Trauma, s/p fall from ladder resulting in left-sided rib fractures, splenic rupture and left-sided pneumothorax, status post splenectomy Acute kidney injury Coronary artery disease with previous CABG Hyperlipidemia PLAN: Continue amiodarone Continue Cardizem drip at 5 mg an hour for optimal heart rate control Continue telemetry monitoring Continue Eliquis for anticoagulation Nurse practitioner note has been reviewed by physician. Signing provider agrees with the documented findings, assessment, and plan of care. Objective - Vital Signs Vital signs: Vital Signs Temp 98.2 F 03/14/20 10:00 Pulse 96 03/14/20 11:00 Resp 26 H 03/14/20 11:00 BP 125/72 03/14/20 11:00 Pulse Ox 94 L 03/14/20 11:00 Intake & Output 03/13/20 03/14/20 03/14/20 18:59 06:59 18:59 Intake Total 744.583 750 146.667 Output Total 3155 160 120 Balance -2410.417 590 26.667 Weight 88.5 kg 88.5 kg Intake: IV 243 290 100 DAPTOmycin 500 mg In 50 Sodium Chloride 0.9% 50 ml @ 100 mls/hr IVPB Q48H [facility] Rx#:[id number] Pressure bag 3 Sodium Chloride 0.9% 1, 240 240 100 000 ml @ 20 mls/hr IV . Q24H [facility] Rx#:[id number] Intake, IV Titration 111.583 16.667 Amount Dexmedetomidine/0.9% NaCl 16.667 (Pmx) 400 mcg In Empty Bag 1 bag @ Titrate IV . Q0M [facility] Rx#:[id number] Diltiazem 125 mg In 111.583 Sodium Chloride 0.9% 100 ml @ 5 MG/HR 5 mls/hr IV .Q24H [facility] Rx#:[id number] Tube Feeding 330 330 0 Other 60 130 30 Output: Urine 155 160 120 Hemodialysis 3000 Other: Voiding Method Indwelling Catheter Indwelling Catheter Indwelling Catheter # Bowel Movements 1 ABP, PAP, CO, CI - Last Documented Arterial Blood Pressure 129/50 - Labs CBC & Chem 7: 03/14/20 05:37 03/14/20 05:37 Labs: Abnormal Lab Results - Last 24 Hours (Table) 03/13/20 03/13/20 03/14/20 Range/Units 06:32 17:43 00:33 WBC (3.8-10.6) k/uL RBC (4.30-5.90) m/uL Hgb (13.0-17.5) gm/dL Hct (39.0-53.0) % MCHC (31.0-37.0) g/dL RDW (11.5-15.5) % Neutrophils # (1.3-7.7) k/uL Monocytes # (0-1.0) k/uL ABG pH (7.35-7.45) ABG HCO3 (21-25) mmol/L ABG Total CO2 (19-24) mmol/L ABG O2 Saturation (94-97) % Sodium (137-145) mmol/L BUN (9-20) mg/dL Creatinine (0.66-1.25) mg/dL Glucose (74-99) mg/dL POC Glucose (mg/dL) 138 H 135 H (75-99) mg/dL Calcium (8.4-10.2) mg/dL Phosphorus (2.5-4.5) mg/dL Procalcitonin 2.56 H (0.02-0.09) ng/mL 03/14/20 03/14/20 03/14/20 Range/Units 05:26 05:37 05:37 WBC 17.0 H (3.8-10.6) k/uL RBC 3.14 L (4.30-5.90) m/uL Hgb 8.7 L (13.0-17.5) gm/dL Hct 29.3 L (39.0-53.0) % MCHC 29.9 L (31.0-37.0) g/dL RDW 18.0 H (11.5-15.5) % Neutrophils # 12.8 H (1.3-7.7) k/uL Monocytes # 1.8 H (0-1.0) k/uL ABG pH 7.50 H (7.35-7.45) ABG HCO3 27 H (21-25) mmol/L ABG Total CO2 29 H (19-24) mmol/L ABG O2 Saturation 97.8 H (94-97) % Sodium 135 L (137-145) mmol/L BUN 63 H (9-20) mg/dL Creatinine 2.78 H (0.66-1.25) mg/dL Glucose 119 H (74-99) mg/dL POC Glucose (mg/dL) (75-99) mg/dL Calcium 8.1 L (8.4-10.2) mg/dL Phosphorus 4.8 H (2.5-4.5) mg/dL Procalcitonin (0.02-0.09) ng/mL 03/14/20 Range/Units 06:20 WBC (3.8-10.6) k/uL RBC (4.30-5.90) m/uL Hgb (13.0-17.5) gm/dL Hct (39.0-53.0) % MCHC (31.0-37.0) g/dL RDW (11.5-15.5) % Neutrophils # (1.3-7.7) k/uL Monocytes # (0-1.0) k/uL ABG pH (7.35-7.45) ABG HCO3 (21-25) mmol/L ABG Total CO2 (19-24) mmol/L ABG O2 Saturation (94-97) % Sodium (137-145) mmol/L BUN (9-20) mg/dL Creatinine (0.66-1.25) mg/dL Glucose (74-99) mg/dL POC Glucose (mg/dL) 132 H (75-99) mg/dL Calcium (8.4-10.2) mg/dL Phosphorus (2.5-4.5) mg/dL Procalcitonin (0.02-0.09) ng/mL Microbiology - Last 24 Hours (Table) 03/12/20 09:30 Gram Stain - Preliminary Neck Wound Culture - Preliminary Gram Neg Bacilli 03/11/20 17:55 Blood Culture - Preliminary Blood No Growth after 48 hours 03/12/20 09:30 Anaerobic Culture - Preliminary Neck 03/12/20 09:05 Urine Culture - Final Urine,Voided 03/12/20 17:22 Gram Stain - Preliminary Sputum Sputum Culture - Preliminary
--- NOTE | 2020-03-14 12:10 | P.PN ---
Subjective Progress Note Date: 03/14/20 This is a 69-year-old male patient who was working on his gutters when he fell off a 15 foot ladder. This was unwitnessed. He end up calling his who in turn called EMS and the patient was brought in to the emergency department. Upon arrival, the patient was hypotensive and he was in shock. The patient initial chest x-ray showed several left-sided fractures and small amount of subcutaneous air in addition to a left-sided pneumothorax. The x-ray of the pelvis showed no evidence of any fracture or dislocation. The CAT scan of the brain showed age-related atrophy and chronic small vessel ischemic changes without any acute intracranial process. CAT scan of cervical spine showed no acute abnormalities. On and has Been of the cervical spine was done and the bone and soft tissue windows showed no acute abnormalities. There was no evidence of any fracture. Along with multiple left-sided rib fractures third extending to the seventh rib. There was also spending the sedation with estima daxa grade 3 injury the patient. The patient's hemoglobin dropped to 10.5. The patient received a total of 2 L of IV fluid and 40 minutes of packed RBC. Morning hemoglobin today is At 13.4. The patient was taken to the operating room yesterday. The patient underwent a left-sided chest tube insertion. The patient also had splenectomy done and following that the patient was kept intubated on a mechanical ventilator and he was transferred to the intensive care unit. Note that the patient takes morphine outpatient basis and he has chronic pain and chronic narcotic requirements and on outpatient basis he takes morphine sulfate in the form of MS Contin 50 mg every 12 hours. Overnight, the patient was intubated on mechanical ventilator. He was sedated with a combination of propofol and he was also placed on morphine drip after being given several boluses control his pain. This morning, Profore is running at 70 mg per KG per minute. Morphine is running at 8 mg an hour. The patient is on normal saline at rate of 85 mL an hour. The patient has a left sided chest tube. Total amount of output is in order 110 mL of serosanguineous material without evidence of any air leak. The ventilator setting shows an assist- control mode rate of 20 with a tidal volume of 500 and FiO2 of 40% with a PEEP of 5. The patient's FiO2 is down to 40% overnight. The morning blood gases showed a pH of 7.4 with a pCO2 of 37 and pO2 of 121. The chest x-ray from this morning shows that the patient has an indwelling left-sided chest tube without any signs or pneumothorax. There is also a basilar pleural-based opacity along with multiple left-sided rib fractures and ET tube is in a good location. He is at approximately slightly swollen probably related to an infiltrated IV. He did not require any pressors. He remains hemodynamically stable. Lactic acid remains slightly elevated at 2.9 On 03/04/2020, the patient is being seen for a follow-up. The patient this morning is sedated with propofol at 50 mg per KG per minute. The patient is posterior Tibial Insertion. He Has a Bivona Tracheostomy Tube in Place. The Patient Is on a Mechanical Ventilator on Assist Control Mode at the Rate of 20 with a Tidal Volume of 500 and FiO2 of 50% with a PEEP of 10. The Blood Gases from Today Showed a pH of 7.33 with a pCO2 of 31 and pO2 of 140 and this was on FiO2 of 50%. Chest X-Ray Still Showing Bilateral Pulmonary Infiltrates That Are Rather Diffuse. The Previous Bronchoscopy and the bronchioloalveolar lavage showed no microbial growth. Prior to that a sputum sample that was done on 02/27/2020 showed Selina albicans and a sputum sample from 02/22/2020 showed Selina albicans and Selina Krusei. The patient was treated with Eraxis and he completed the course of antibiotics. He was also on IV Zosyn since admission. Antibiotics were discontinued and the patient developed C. diff colitis that was diagnosed on 03/02/2020. He was having significant diarrhea which essentially slowed down as the patient was started on oral vancomycin to 50 mg orally every 6 hours. The abdominal wound is dry clean and intact. No abdominal distention. Urine output is diminished and the patient is producing somewhere between 10-20 mL an hour of urine output. His any significant fluid overload including significant edema in all 4 extremities and scrotal edema. There is also some a bdominal wall edema. Surgical wound site is dry clean and intact. There is no signs of any wound infection. The patient is tolerating tube feeds and he is on vital high protein at the rate of 30 mL an hour. LFTs are on the rise. The creatinine is on the resident's currently up to 4.4 on the sodium level is down to 129 and a potassium level is at 5.7. This was discussed with nephrology and the patient is going to initiate hemodialysis today. Mental status is not appropriate still. As part of further investigation, the patient underwent another CAT scan of the brain on 02/27/2020 this was negative for any acute abnormalities and the patient had some new partial investigation of the shivani ateral mastoid air cells. A lumbar puncture was also done and the patient was found to have CSF protein of 50, no nucleated white cells, 17 RBCs and glucose was 93. Cultures were negative. On 03/05/2020, the patient is being seen in follow-up. Mother the patient was started on hemodialysis yesterday as the patient was having significant amount of fluid overload and the potassium was in the rise. Just about while going on dialysis, the patient developed heart block and this was a high-grade AV block with hemodynamic instability and hypotension. Immediately, the patient was given calcium chloride and sodium bicarb pushes. His condition was stabilized. He was started on pressors and following that his cardiac rhythm normalizes back to normal sinus rhythm. He underwent hemodialysis yesterday with ultrafiltration and total of 3 L of fluid was removed. Nevertheless, the patient continues to be significant fluid overload. This morning he remains on propofol at 50 mg per KG per minute. He is on levo fed at 0.03 g per KG per minute. He is on normal saline at 50 mL an hour. He remains on a mechanical ventilator. Earlier this morning, chest x-ray was done that showed improvement by the pulmonary infiltrates. The patient had a assist-control mode of ventilation at the rate of 30 with a tidal volume of 550 and FiO2 of 50% with a PEEP of 10. The blood gas showed a pH of 7.44 with episodes of 28 and pO2 148. The patient is making minimal amount of urine output. Hemoglobin this morning was at 6.5 without evidence of any GI bleed and the patient was given a unit of packed RBC. He is receiving Nepro as enteral feeding for nutritional support. Abdomen is slightly distended. The patient has no significant residuals and is producing adequate amount of bowel movement activity. His white cell count still elevated at 42 related to C. diff colitis. Abdominal wound is dry clean and intact. Less of the cultures were all negative for now. 03/06/20202019, the patient is being seen for a follow-up in the intensive care unit. I elected discussion with the patient's family. I met the daughters and also did a conference call with one of the daughters and we discussed the patient's condition at length and I updated them on his condition. Upon family's request, I initiated the transfer to [facility]. I had a discussion with Dr. Caraballo, trauma surgeon at [facility] who so no need for this patient to be transferred as the medical management that we have offered to this patient has been optimal and up to standard. In summary, today's evaluation, the patient is on a low dose of propofol running between 15 and 30 mg per KG per minute. He grimaces to painful stimulation. He is not following commands. He was given another session of dialysis this morning and the patient's blood pressure slightly dropped during hemodialysis and he is being supported with norepinephrine infusion for blood pressure support. The goal is to remove around 3 L of fluid in addition to hemodialysis. The patient is currently on assist control mode of ventilation at the tidal volume of 500, FiO2 of 40% with a PEEP of 5 and a rate of 30. The blood gases showed a pH of 7.45 with a pCO2 of 31 and pO2 of 84. Chest x-ray still unchanged compared to yesterday with bilateral pulmonary infiltrates. Take estimated to is in a good location and the patient has no significant air leaks. LFTs are in the decline as the patient has been recovering from a shock liver. Urine output is minimal and the patient is undergoing hemodialysis. Normal saline running at 20 mL an hour and the patient on Nepro at the rate of 30 mL an hour. Creatinine is up to 4.2. I'm a bit concerned of the ongoing elevation of the white cell. I initially attributed this to C. diff colitis. The patient was placed on oral vancomycin. Nevertheless, the patient continues to have elevated. Discussed the case with the general surgery. I'm going to obtain a CAT scan of the abdomen and pelvis. I'm also going to obtain a set of blood cultures. The patient does have some ongoing bandemia which in the order of 31%. Note that he is tolerating his enteral feeding for nutritional support. He is on oral vancomycin to 50 mg by mouth every 6 hours. He is cardiac rhythm is atrial fibrillation. Note that back and forth is going into episodes of atrial fibrillation. For instance, yesterday with sinus. This morning he is in atrial fibrillation with a controlled rate. No anticoagulants have been utilized. He is on Lovenox 30 mg subcu every 24 hours. This is being administered for DVT prophylaxis. 03/07/2020, I'm seeing this patient for a follow-up. On today's evaluation, the patient is sedated with Precedex. He gradually arouses while off Precedex. Nevertheless, he has not followed any commands.. He gets a bit restless and agitated and his blood pressure goes up and based on that we have to make titration on the Precedex infusion. Earlier this morning he was on 0.7 g per KG per minute. He is on mechanical ventilator. He essentially on the same mode of respirator on assist control mode at the rate of 30 with a tidal volume of 500 and FiO2 of 40% with a PEEP of 8. Morning blood gases showed a pH of 7.46 with a pCO2 of 30 and pO2 of 88. The patient essentially riding the mechanical ventilator and based on that the necessity ventilator changes were done and dropped a respiratory rate down to 22 and I dropped a PEEP down to 6. Chest x- ray is unchanged. The there was concern of his underlying colitis knowing that his white cell count was still elevated. The patient underwent a CAT scan of the abdomen and pelvis yesterday and the CAT scan showed some increased abdominal ascites, wall thickening of the left colon and rectosigmoid colon which is consistent with underlying colitis. He remains on oral vancomycin 5 mg 4 times a day. He is also on IV Flagyl for now and this was admitted by infectious disease. White cell count elevated at 50. The patient is afebrile. The patient is tolerating his enteral feeding. He did have a bowel movement yesterday. No diarrhea. Surgical wound site is dry clean and intact and the hemoglobin stable at 7.1. His bands are down to 8%. The patient will not have dialysis today. His BUN is 83 with a creatinine of 4.0. Rest of the electrodes are stable. Shock liver is improving and the AST is down to 70 for ALT is down to 377 and a total protein is at 4.5. Alkaline phosphatase is 259. He continues to have edema in all 4 extremities. He had myds-xs-zwce dialysis 3 days. The pro-calcitonin is elevated probably related to his underlying C. diff colitis. Blood cultures of been all negative. 03/08/2020 and seeing the patient for a follow-up. The patient has stayed on Precedex throughout the day yesterday and this morning he remains on Precedex at 0.7 g per KG per minute. Nevertheless, early in the morning hours, the patient became quite restless. Patient received a total of 4 L of morphine and 2 mg of Haldol. I saw the patient in morning. The patient was an assist-control mode of ventilation. I switched him to a VC plus mode at a tidal volume of 500 with a rate of 22 and I kept the PEEP at 4 with an FiO2 of 40%. The patient seemed to be much more relaxed on this current mode of ventilation. He was started on hemodialysis. His heart rate is in between atrial fibrillation normal sinus rhythm. Nevertheless, the patient has not required any Pressors while on hemodialysis. The patient opens up his eyes. He looks around. He does not follow any commands. At times he gets a bit restless and tachypneic. I noted that the patient's serum bicarbonate of 19. I offered some additional bicarb to improved underlying metabolic acidosis. My concern was to improve the patient's overall respiratory status. The patient Had a chest x-ray that was quite stable compared to yesterday without any major interval change. Tracheostomy tube is in a good location. The blood gas showed a pH of 7.41 with a pCO2 of 32 and pO2 of 102. The white cell count is on the decline as the patient is on a combination of IV Flagyl and oral vancomycin. Focused on was quite elevated due to C. diff colitis. No abdominal distention. Still having significant amount of third spacing and edema in the patient's overall goal is to ultrafiltrate at least 3 L on today's hemodialysis session. He has a triple-lumen catheter in his left groin and Artline his left groin. His dialysis cath is present in the right groin. No fever. No chills. No other significant events overnight. 03/09/2020, the patient is being seen for a follow-up. He remains on a canker ventilator. Remains on assist control mode at the rate of 22 with a tidal volume of 500 and a PEEP of 6 and FiO2 of 40%. Chest x-ray remains unchanged. Morning blood cultures from the patient's 7.39 with a pCO2 of 39 and pO2 of 102. No significant rest or secretions. The patient's tracheostomy tube in place. In terms of neurologic status, the patient is on Precedex at 0.4 g per KG. We're hoping to proceed with another session of dialysis this morning and following that are going to do further weaning of the Precedex and continue evaluating his mental status. As stated earlier, the patient grimaces and opens eyes spontaneously. Nevertheless is not following any commands. He seems to be less agitated. Metabolically, he is improved. He was given bicarb pushes yesterday and the serum bicarbs up to 25. His breathing is much more comfortable. LFTs continued to improve. Cardiac rhythm is back to sinus. White cell count is down to 25. Tolerating his tube feeds. Surgical wounds are dry clean and intact. Still edematous in all 4 extremities. The patient underwent a total of 3 L of ultrafiltration yesterday and we are hoping for some more for today. The triple-lumen catheter and Artline from the left femoral vein and artery were removed and the patient was given a Artline in the left upper extremity. No fever. No chills. No open wounds or sores. Extensive edema in all 4 extremities and extensive scrotal edema. 03/10/2020, the patient is off Precedex. The patient is moving all 4 extremities. His grimacing. Sometimes he gets restless. He is still not following any commands. He will be started on hemodialysis with a goal of 3 L of ultrafiltration. His volume status is improving as the patient is receiving daily dialysis sessions. He remains on the same ventilator setting. He is on a tidal volume of 500 with a PEEP of 5 and FiO2 of 40% and a respiratory rate of 22. Chest x-ray is unchanged. Blood gas shows a pH of 7.43 with a pCO2 of 36 and pO2 of 136. The patient is synchronous with the mechanical ventilator. He shock liver continues to improve. AST and ALT continue to decline. He is receiving enteral feeding for nutritional support and white cell count is down to 18.1. He was stable at 7.8. The patient continues to have episodes of atrial fibrillation. Rate is slightly tachycardic today. May need to be started on Cardizem drip for rate control and the patient be also started on Eliquis is along for medical record notes regarding his proximal atrial fibrillation. The patient has a clear surgical wound site. He is off Precedex mental status is being monitored very closely. on 03/11/2020, the patient is still being treated in intensive care unit. Mental status continues to be an ongoing issue. I daily basis he is getting dialysis and would feel that he is much more awake. However, is not still tracking or following any commands. He opens his eyes. He grimaces. He looks around. He moves all 4 extremities. At times he gets agitated. Agitation occurs mainly when he is stimulated. No seizure activity. His neurologic exam is nonfocal. He is a patient of mechanical ventilated on today's evaluation I switched him to a pressure support mode at a pressure support of 20 with a PEEP of 5 he was able to breathe spontaneously at that setting. This will be done on a trial basis. He remains on a mechanical ventilator on VC mode and the patient's earlier vent settings with a PEEP of 5 with an FiO2 of 40% and tidal volume of 500 and the rate of 22. The patient's pH from this morning was 7.48 with a pCO2 of 34 and pO2 113. Chest x-ray is unchanged. In terms of dialysis, he continues to receive daily dialysis and his STATUS continues to improve. Upper and lower extremity edema and the scrotal edema improved. No nitrite imbalance. A total of 3.5 L of ultrafiltration was done yesterday. The patient is afebrile. White cell count is at 18. Progesterone level is improving. He is receiving enteral feeding for nutritional support. Surgical wound site is dry clean and intact. He has a PICC line and has also an art line in his radial artery. LFTs continued to improve. In terms of his cardiac issue, he is on no pressors. He is having episodes of atrial fibrillation. He was placed on Cardizem drip at lower rate of 5 mg an hour he is also on Eliquis for long-term and to coagulation. He remains on amiodarone. Cardizem is being titrated to maintain a heart rate of less than 100. No major significant events overnight. His urine output is still on 03/12/2020, the patient is responsive and the patient is following commands. He looks a bit restless. Nevertheless he is able to follow commands and he was able to communicate with us. This is the first encounter with the patient was found to be fully awake and alert. The patient is having another session of hemodialysis today. He remains on a mechanical ventilator. Vent settings are essentially unchanged compared to yesterday and he is an assist-control mode rate of 22 with a tidal volume of 500 and FiO2 of 40% with a PEEP of 5. Chest x-ray findings are unchanged. The patienthowever has developed some low-grade fever and a white cell count is at 19.0. Diarrhea is not present. He is stooling. Surgical site is dry clean and intact. He has a PICC line. The blood cultures of been sent. The patient was placed on a combination of daptomycin and Diflucan. He remains on oral vancomycin and IV Flagylregarding his C. diff colitis. His cardiac rhythm is sinus. He is having approximately 2 fibrillation. The patient is on Eliquis for now. Tolerating enteral feeding for nutritional support. NG tube is in place. PEG tube is to follow. Cardizem drip was off for now. He has adequate pain control. Surgical dose has been cut down since yesterday 200 mg at bedtime. The patient had ultrafiltration was around 3-1/2 L of fluid removed yesterday and the patient is having 03/13/2020, the patient is awake and following commands He is communicating. He is still on a mechanical ventilator. Same vent settings. He is undergoing another session of dialysis with a goal of 3.5 L of ultrafiltration. He is having a low-grade fever. Sepsis workup still in progress. Blood cultures of been sent. Results are still pending for now. Meanwhile, the patient's currently covered with a combination of atelectasis, daptomycin, and he is also on IV Flagyl and oral vancomycin regarding C. diff colitis. His chest x-ray is unchanged. He is cardiac rhythm is atrial fibrillation. His blood gases from today showed a pH of 7.48 with a pCO2 of 34 and pO2 132. He is receiving enteral feeding for nutritional support. We are hoping a PEG tube insertion of a later stage. Is on lactated Ringer at the rate of 26 an hour. He states that his not having any significant pain for now. No abdominal distention. Abdominal wound his rectum and intact. I'm very happy with his overall progress. His marked improvement in his volume status and there is also marked improvement in his neurologic function is as the patient is awake and communicating and following commands and answering questions. His is doing passive range of motion. He is weak in his lower extremities and upper extremities more so in his upper extremities. He is able to move his legs and wiggle his toes and seems to be quite active in bed 03/14/2020, the patient had a setback this morning. He had large volume emesis. He had several emesis and possibly aspirated. He became tachypneic and short of breath. He is awake however he became more restless and uncomfortable post aspiration. Based on that, I asked the nursing staff to utilize some Precedex if needed to control agitation. Meanwhile, the patient had his tube feeds held. Affect some of the abdomen was done that shows possible small bowel obstruction, partial and the patient has fecal stasis/infection the right lower quadrant area. The patient notes was taking treatment for C. diff colitis and he was on a combination of vancomycin and IV Flagyl. No diarrhea for now. Tube feeds on hold for now. He remains on a mechanical ventilator. His assist- control mode at the rate of 22 with a tidal volume of 500 and FiO2 of 40% with a PEEP of 5. The chest x-ray from today shows further clearing of the bilateral pulmonary infiltrates and this was done before the aspiration episode. No hemodialysis will be done today. His blood gases showed a pH of 7.5 with a pCO2 of 35 and pO2 of 92. Is still having episodic fever. The sputum around the tracheostomy tube was positive for gram-negative and I added the troponin. ID is on the case and the patient is taking a combination of daptomycin and Eraxis. He is on no Cardizem drip for now. Tube feeds are currently on hold. No other significant events otherwise for now. Noted the patient was showing significant amount of progress in terms of his neuro status. Abdominal wound is dry clean and intact. Bowel sounds are hypoactive for now. Objective - Vital Signs Vital signs: Vital Signs Temp 98.2 F 03/14/20 10:00 Pulse 96 03/14/20 11:00 Resp 26 H 03/14/20 11:00 BP 125/72 03/14/20 11:00 Pulse Ox 94 L 03/14/20 11:00 Intake & Output 03/13/20 03/14/20 03/14/20 18:59 06:59 18:59 Intake Total 744.583 750 146.667 Output Total 3155 160 120 Balance -2410.417 590 26.667 Weight 88.5 kg 88.5 kg Intake: IV 243 290 100 DAPTOmycin 500 mg In 50 Sodium Chloride 0.9% 50 ml @ 100 mls/hr IVPB Q48H [facility] Rx#:[id number] Pressure bag 3 Sodium Chloride 0.9% 1, 240 240 100 000 ml @ 20 mls/hr IV . Q24H [facility] Rx#:[id number] Intake, IV Titration 111.583 16.667 Amount Dexmedetomidine/0.9% NaCl 16.667 (Pmx) 400 mcg In Empty Bag 1 bag @ Titrate IV . Q0M [facility] Rx#:[id number] Diltiazem 125 mg In 111.583 Sodium Chloride 0.9% 100 ml @ 5 MG/HR 5 mls/hr IV .Q24H [facility] Rx#:[id number] Tube Feeding 330 330 0 Other 60 130 30 Output: Urine 155 160 120 Hemodialysis 3000 Other: Voiding Method Indwelling Catheter Indwelling Catheter Indwelling Catheter # Bowel Movements 1 ABP, PAP, CO, CI - Last Documented Arterial Blood Pressure 129/50 - Exam Gen. appearance the patient is awake and following some simple commands and interacting on today's evaluation. He is a patient of mechanical ventilator. NG tube is in place. Tracheostomy tube in place. Head exam was generally normal. There was no scleral icterus or corneal arcus. Mucous membranes were moist. Neck was supple and without jugular venous distension, thyromegaly, or carotid bruits. Carotids were easily palpable bilaterally. There was no adenopathy. The patient has a tracheostomy tube in place. Lungs sounds are diminished bilaterally and the patient is a left sided chest tube in place. Chest tube is in a good location. Breath sounds are slightly diminished in left lung base compared to the right. Cardiac exam revealed the PMI to be normally situated and sized. The rhythm was irregular and no extrasystoles were noted during several minutes of auscultation. The patient is currently in atrial fibrillation. He is back and forth between atrial fibrillation and normal sinus rhythm. The first and second heart sounds were normal and physiologic splitting of the second heart sound was noted. There were no murmurs, rubs, clicks, or gallops. Abdomen is soft and nontender. The patient has a mid abdominal scar which is dry clean and intact. A surgical scar/wound is dry clean and intact. No direct distention. No rebound distention. No guarding. Bowel sounds are hypoactive at this point in time. The bowel sounds are hyperactive on today's evaluation and there is no significant abdominal distention. She presented currently on hold. Examination of the extremities revealed easily palpable radial, femoral and pedal pulses. There was no cyanosis, clubbing and there is development of significant edema in all 4 extremities and the patient also has scrotal edema. He continues to have significant amount of edema in all 4 extremities. Examination of the skin revealed no evidence of significant rashes, suspicious appearing nevi or other concerning lesions. Abdominal wound site is dry clean and intact. Neurologic the patient is opening his eyes spontaneously.he is following simple commands. He is moving all 4 extremities. No focal neurological deficits. There is motor weakness in all 4 extremities specially in the upper extremities bilaterally. - Labs CBC & Chem 7: 03/14/20 05:37 03/14/20 05:37 Labs: Abnormal Lab Results - Last 24 Hours (Table) 03/13/20 03/13/20 03/14/20 Range/Units 06:32 17:43 00:33 WBC (3.8-10.6) k/uL RBC (4.30-5.90) m/uL Hgb (13.0-17.5) gm/dL Hct (39.0-53.0) % MCHC (31.0-37.0) g/dL RDW (11.5-15.5) % Neutrophils # (1.3-7.7) k/uL Monocytes # (0-1.0) k/uL ABG pH (7.35-7.45) ABG HCO3 (21-25) mmol/L ABG Total CO2 (19-24) mmol/L ABG O2 Saturation (94-97) % Sodium (137-145) mmol/L BUN (9-20) mg/dL Creatinine (0.66-1.25) mg/dL Glucose (74-99) mg/dL POC Glucose (mg/dL) 138 H 135 H (75-99) mg/dL Calcium (8.4-10.2) mg/dL Phosphorus (2.5-4.5) mg/dL Procalcitonin 2.56 H (0.02-0.09) ng/mL 03/14/20 03/14/20 03/14/20 Range/Units 05:26 05:37 05:37 WBC 17.0 H (3.8-10.6) k/uL RBC 3.14 L (4.30-5.90) m/uL Hgb 8.7 L (13.0-17.5) gm/dL Hct 29.3 L (39.0-53.0) % MCHC 29.9 L (31.0-37.0) g/dL RDW 18.0 H (11.5-15.5) % Neutrophils # 12.8 H (1.3-7.7) k/uL Monocytes # 1.8 H (0-1.0) k/uL ABG pH 7.50 H (7.35-7.45) ABG HCO3 27 H (21-25) mmol/L ABG Total CO2 29 H (19-24) mmol/L ABG O2 Saturation 97.8 H (94-97) % Sodium 135 L (137-145) mmol/L BUN 63 H (9-20) mg/dL Creatinine 2.78 H (0.66-1.25) mg/dL Glucose 119 H (74-99) mg/dL POC Glucose (mg/dL) (75-99) mg/dL Calcium 8.1 L (8.4-10.2) mg/dL Phosphorus 4.8 H (2.5-4.5) mg/dL Procalcitonin (0.02-0.09) ng/mL 03/14/20 Range/Units 06:20 WBC (3.8-10.6) k/uL RBC (4.30-5.90) m/uL Hgb (13.0-17.5) gm/dL Hct (39.0-53.0) % MCHC (31.0-37.0) g/dL RDW (11.5-15.5) % Neutrophils # (1.3-7.7) k/uL Monocytes # (0-1.0) k/uL ABG pH (7.35-7.45) ABG HCO3 (21-25) mmol/L ABG Total CO2 (19-24) mmol/L ABG O2 Saturation (94-97) % Sodium (137-145) mmol/L BUN (9-20) mg/dL Creatinine (0.66-1.25) mg/dL Glucose (74-99) mg/dL POC Glucose (mg/dL) 132 H (75-99) mg/dL Calcium (8.4-10.2) mg/dL Phosphorus (2.5-4.5) mg/dL Procalcitonin (0.02-0.09) ng/mL Microbiology - Last 24 Hours (Table) 03/12/20 09:30 Gram Stain - Preliminary Neck Wound Culture - Preliminary Gram Neg Bacilli 03/11/20 17:55 Blood Culture - Preliminary Blood No Growth after 48 hours 03/12/20 09:30 Anaerobic Culture - Preliminary Neck 03/12/20 09:05 Urine Culture - Final Urine,Voided 03/12/20 17:22 Gram Stain - Preliminary Sputum Sputum Culture - Preliminary Assessment and Plan Plan: 1 fall off a ladder with significant trauma to the chest and abdomen. The patient had sustained left-sided rib fractures, splenic rupture postsplenectomy, and a left-sided pneumothorax. 2 traumatic grade 3 laceration of the spleen along with hemoperitoneum and the patient is post splenectomy and the patient is postop day and the patient had the surgery on 02/17/2020. 3 traumatic left-sided rib fractures third drip through seventh rib along with a 30% left-sided pneumothorax post chest tube insertion with adequate expansion of the left lung. The left-sided chest tube was removed. 4 shock at the time of admission, essentially due to hemorrhagic shock, recovered 5 Acute kidney injury with massive fluid overload ,markedly improved with dialysis. No plans dialysis for today. 6 acute ventilator-dependent respiratory failure, hypoxic, secondary to above. The patient's overall pulmonary status is stable. the patient will be given daily trials with pressure support. 7 chronic neck pain and the patient had been taken MS Contin on outpatient basis 15 mg twice a day 8 coronary artery disease with a previous bypass surgery 9 hyperlipidemia 10 BPH 11 delirium tremens/alcoholism 12 paroxysmal atrial fibrillation and the patient is currently in A. fib on oral amiodarone. the patient was started on Eliquis for long-term articulation. the patient is alternating between controlled atrial fibrillation and sinus rhythm. 13 leukocytosis, secondary to C. diff colitis, and the white cell count is stable at 19. 14 C. diff colitis currently on oral vancomycin and IV Flagyl., white cell count remains elevated . The patient diarrhea has subsided and the patient has his FMS removed. The patient on oral vancomycin and Flagyl. 15 anemia, multifactorial, chronic, hemoglobin is stable 16, acute hepatic injury, shock liver with LFTs are essentially improving for now. No significant coagulopathy. 17 episodes of fever, and the patient is undergoing further investigation with blood cultures and urine cultures and the patient was given empiric antibiotic coverage with daptomycin and he was also given Eraxis. Meanwhile the patient wa s found to have gram-negative in the sputum and the patient was started on the troponin today. He still having low-grade fever. His LIVER WAS GRADUALLY IMPROVING. 18 PARTIAL SMALL BOWEL OBSTRUCTION ALONG WITH EMESIS AND ASPIRATION. TUBE FEEDS ARE CURRENTLY ON HOLD. PLEASE REFER TO THE POTASSIUM OF THE ABDOMEN. Plan Continue ventilator support Hold tube feeds for today. Given a Fleet enema for possibility of a fecal impaction Repeat fat filled the abdomen tomorrow And IV meropenem No dialysis for today and the patient has received daily dialysis almost for the past 1 week. Monitor mental status and the patient continues to improve Continue oral vancomycin regarding C. diff colitis and the patient is on Flagyl Eraxis and daptomycin per infectious disease We'll continue to follow, consider a PEG tube insertion sometime next week We'll continue to follow. The patient is critically ill, and the patient will monitored very closely in the ICU. This is a critically care evaluation that was on a more than 30 minutes. Time with Patient: Greater than 30
[2020-03-14 12:31] LABS: Glucose,Whole Blood 142 mg/dL (75-99)
--- NOTE | 2020-03-14 14:01 | P.PN ---
Subjective Progress Note Date: 03/14/20 Principal diagnosis: Fall with Trauma to chest and abdomen Hemoperitoneum with ruptured spleen status post emergent splenectomy Status post tracheostomy for respiratory failure Left-sided pneumothorax has chest tube in place Multiple left-sided rib fractures 03/12/2020, the patient is seen and evaluated for follow-up; follows commands; session of hemodialysis in progress today. He remains on a mechanical ventilator. Chest x-ray findings are unchanged; patient has some low-grade fever and a white cell count is at 19.0. Diarrhea is not present. He is stooling. Surgical site is dry clean and intact. He has a PICC line. The blood cultures of been sent. The patient was placed on a combination of daptomycin and Diflucan. He remains on oral vancomycin and IV Flagylregarding his C. diff colitis. His cardiac rhythm is sinu; remains on Eliquis for now. Tolerating enteral feeding for nutritional support. NG tube is in place. PEG tube is to follow. 03/13/2020, the patient is seen and evaluated in ICU; currently awake and following commands; remains on a mechanical ventilator. Same vent settings. He is u ndergoing another session of dialysis. He is having a low-grade fever. Sepsis workup still in progress. Blood cultures of been sent. Results are still pending for now. Meanwhile, the patient's currently covered with a combination of Eraxis, daptomycin, and he is also on IV Flagyl and oral vanc omycin regarding C. diff colitis. His chest x-ray is unchanged. He is cardiac rhythm is atrial fibrillation. He is receiving enteral feeding for nutritional support. Plan is for possible PEG tube placement 03/14/2020 Patient had episodes of emesis with possible aspiration and became tachypneic and restless; Precedex if needed to control agitation; tube feeds held. Affect some of the abdomen was done that shows possible small bowel obstruction, partial and the patient has fecal stasis/infection the right lower quadrant area; being treated for C. diff colitis with a combination of vancomycin and IV Flagyl. The chest x-ray from today shows further clearing of the bilateral pulmonary infiltrates and this was done before the aspiration episode. No hemodialysis will be done today. His blood gases showed a pH of 7.5 with a pCO2 of 35 and pO2 of 92. Is still having episodic fever. The sputum around the tracheostomy tube was positive for gram-negative and I added the troponin. ID is on the case and the patient is taking a combination of daptomycin and Eraxis. He is on no Cardizem drip for now. . Objective - Vital Signs Vital signs: Vital Signs Temp 101.8 F H 03/14/20 08:00 Pulse 102 H 03/14/20 10:00 Resp 32 H 03/14/20 10:00 BP 121/63 03/14/20 10:00 Pulse Ox 95 03/14/20 10:00 Intake & Output 03/13/20 03/14/20 03/14/20 18:59 06:59 18:59 Intake Total 744.583 750 110 Output Total 3155 160 115 Balance -2410.417 590 -5 Weight 88.5 kg Intake: IV 243 290 80 DAPTOmycin 500 mg In 50 Sodium Chloride 0.9% 50 ml @ 100 mls/hr IVPB Q48H [facility] Rx#:[id number] Pressure bag 3 Sodium Chloride 0.9% 1, 240 240 80 000 ml @ 20 mls/hr IV . Q24H [facility] Rx#:[id number] Intake, IV Titration 111.583 Amount Diltiazem 125 mg In 111.583 Sodium Chloride 0.9% 100 ml @ 5 MG/HR 5 mls/hr IV .Q24H [facility] Rx#:[id number] Tube Feeding 330 330 0 Other 60 130 30 Output: Urine 155 160 115 Hemodialysis 3000 Other: Voiding Method Indwelling Catheter Indwelling Catheter Indwelling Catheter # Bowel Movements 1 ABP, PAP, CO, CI - Last Documented Arterial Blood Pressure 129/50 - Exam VITAL SIGNS: Reviewed. GENERAL: Well-developed in no acute distress. HEENT: No sclera icterus. Extraocular movements grossly intact. Moist buccal mucosa. Head is atraumatic, normocephalic. Trach site clean dry and intact ABDOMEN: Soft. Nondistended. Incision site clean dry and intact NEUROLOGIC: Remains intubated; does follow commands - Labs CBC & Chem 7: 03/14/20 05:37 03/14/20 05:37 Labs: Abnormal Lab Results - Last 24 Hours (Table) 03/13/20 03/13/20 03/13/20 Range/Units 06:32 11:46 17:43 WBC (3.8-10.6) k/uL RBC (4.30-5.90) m/uL Hgb (13.0-17.5) gm/dL Hct (39.0-53.0) % MCHC (31.0-37.0) g/dL RDW (11.5-15.5) % Neutrophils # (1.3-7.7) k/uL Monocytes # (0-1.0) k/uL ABG pH (7.35-7.45) ABG HCO3 (21-25) mmol/L ABG Total CO2 (19-24) mmol/L ABG O2 Saturation (94-97) % Sodium (137-145) mmol/L BUN (9-20) mg/dL Creatinine (0.66-1.25) mg/dL Glucose (74-99) mg/dL POC Glucose (mg/dL) 126 H 138 H (75-99) mg/dL Calcium (8.4-10.2) mg/dL Phosphorus (2.5-4.5) mg/dL Procalcitonin 2.56 H (0.02-0.09) ng/mL 03/14/20 03/14/20 03/14/20 Range/Units 00:33 05:26 05:37 WBC (3.8-10.6) k/uL RBC (4.30-5.90) m/uL Hgb (13.0-17.5) gm/dL Hct (39.0-53.0) % MCHC (31.0-37.0) g/dL RDW (11.5-15.5) % Neutrophils # (1.3-7.7) k/uL Monocytes # (0-1.0) k/uL ABG pH 7.50 H (7.35-7.45) ABG HCO3 27 H (21-25) mmol/L ABG Total CO2 29 H (19-24) mmol/L ABG O2 Saturation 97.8 H (94-97) % Sodium 135 L (137-145) mmol/L BUN 63 H (9-20) mg/dL Creatinine 2.78 H (0.66-1.25) mg/dL Glucose 119 H (74-99) mg/dL POC Glucose (mg/dL) 135 H (75-99) mg/dL Calcium 8.1 L (8.4-10.2) mg/dL Phosphorus 4.8 H (2.5-4.5) mg/dL Procalcitonin (0.02-0.09) ng/mL 03/14/20 03/14/20 Range/Units 05:37 06:20 WBC 17.0 H (3.8-10.6) k/uL RBC 3.14 L (4.30-5.90) m/uL Hgb 8.7 L (13.0-17.5) gm/dL Hct 29.3 L (39.0-53.0) % MCHC 29.9 L (31.0-37.0) g/dL RDW 18.0 H (11.5-15.5) % Neutrophils # 12.8 H (1.3-7.7) k/uL Monocytes # 1.8 H (0-1.0) k/uL ABG pH (7.35-7.45) ABG HCO3 (21-25) mmol/L ABG Total CO2 (19-24) mmol/L ABG O2 Saturation (94-97) % Sodium (137-145) mmol/L BUN (9-20) mg/dL Creatinine (0.66-1.25) mg/dL Glucose (74-99) mg/dL POC Glucose (mg/dL) 132 H (75-99) mg/dL Calcium (8.4-10.2) mg/dL Phosphorus (2.5-4.5) mg/dL Procalcitonin (0.02-0.09) ng/mL Microbiology - Last 24 Hours (Table) 03/12/20 09:30 Gram Stain - Preliminary Neck Wound Culture - Preliminary Gram Neg Bacilli 03/11/20 17:55 Blood Culture - Preliminary Blood No Growth after 48 hours 03/12/20 09:30 Anaerobic Culture - Preliminary Neck 03/12/20 09:05 Urine Culture - Final Urine,Voided 03/12/20 17:22 Gram Stain - Preliminary Sputum Sputum Culture - Preliminary Assessment and Plan Assessment: 1. 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 2. Status post tracheostomy for respiratory failure 3. Status post fall off a ladder with, to chest and abdomen 4. Left-sided pneumothorax has chest tube in place 5. Multiple left-sided rib fractures 6. Alcohol intoxication 7. Acute hypoxic ventilatory dependent respiratory failure. 8. Chronic pain medication 9. Atrial fibrillation with rapid ventricular response. Patient now on Eliquis 10. C. diff colitis 11. Acute kidney injury . Followed closely by nephrology. 12. Acute blood loss anemia status post blood transfusion PLAN: -If patient continues to wake up and do well, we may not need to proceed with PEG tube placement next week. Continue to monitor. -Continue tube feedings -Continue ICU management -Continue oral vancomycin -Hemodialysis per nephrology -matthewnox for DVT prophylaxis
--- NOTE | 2020-03-14 16:16 | PN ---
PROGRESS NOTE DATE OF SERVICE: 03/14/2020 REASON FOR FOLLOWUP: 1. C difficile colitis. 2. Possible oropharyngeal candidiasis. 3. Aspiration pneumonitis. INTERVAL HISTORY: Patient did spike a fever of 101.3 degrees Fahrenheit this morning. The patient also having episodes of vomiting and aspiration for which the patient has been suctioned out. The patient is currently hemodynamically stable, not on pressor support. The patient has been sedated. He did have an abdominal x-ray suggestive of possible ileus/obstruction. Enema has been ordered. Most of the information provided by the nursing staff as the patient intubated. PHYSICAL EXAMINATION: Blood pressure 125/72 with a pulse of 96. Temperature of T-max 101. He is 94% on 40% FiO2. General description is an elderly male lying in bed in no distress. Respiratory system: Unlabored breathing, decreased breath sounds at bases. No wheeze. Heart S1, S2. Regular rate and rhythm. Abdomen soft, no tenderness. LABS: Hemoglobin 8.7, white count 17,000. BUN of 63, creatinine 2.78. Sputum Gram stain showing yeast species. DIAGNOSTIC IMPRESSION/PLAN: 1. Patient with C difficile colitis, currently on vancomycin, to continue. 2. Patient with possible oropharyngeal candidiasis, covered with Eraxis. 3. New fever, concern for possible PICC line infection that has been ruled out with negative blood cultures, on daptomycin. If those cultures remain negative, daptomycin will be discontinued. 4. Patient now with an episode of aspiration. Sputum culture will be repeated. If any persistent fever, may have to add some gram-negative coverage. at the bedside, questions were answered. MMODL / IJN: [id number] /
[2020-03-14] MEDS: MEROPENEM 1 GM in SODIUM CHLORIDE 0.9% 100 ML IVPB SCH ×2 (16:18→23:29)
[2020-03-14 18:07] LABS: Glucose,Whole Blood 192 mg/dL (75-99)
[2020-03-14] MEDS ORDERED: propofoL 100 ML IV ONE (19:49)
--- NOTE | 2020-03-14 20:24 | XR ---
EXAMINATION TYPE: XR chest 1V DATE OF EXAM: 03/14/2020 COMPARISON: Prior chest x-ray same dated earlier time HISTORY: Respiratory distress TECHNIQUE: Single frontal view of the chest is obtained. FINDINGS: Findings are similar to prior exam. Tracheostomy tube and NG tube are stable, there is a s table position to the PICC line with the tip coursing towards the superior vena cava. No evident pneu mothorax. Patient is post median sternotomy. Suspect some improvement in aeration, pleural-parenchyma l changes in the left costophrenic angle are stable and may be chronic. Cardiac mediastinal silhouett e is unchanged. Difficult to exclude small pleural effusion. IMPRESSION: There may be some slight improvement in aeration.
[2020-03-14] MEDS: FINASTERIDE 5 MG TAB PO SCH (20:28)
[2020-03-14] MEDS: TAMSULOSIN 0.4 MG CAP.ER.24H PO SCH (20:28)
[2020-03-14] MEDS: QUEtiapine 100 MG TAB PO SCH (20:28)
[2020-03-14] MEDS: DILTIAZEM 125 MG in SODIUM CHLORIDE 0.9% 100 ML IV SCH (20:29)
[2020-03-14 20:40] LABS: ABG Base Excess -1.4 mmol/L; ABG HCO3 24 mmol/L (21-25); ABG Oxygen Saturation 89.6 % (94-97); ABG PCO2 42 mmHg (35-45); ABG PH 7.37 (7.35-7.45); ABG PO2 61 mmHg (83-108); ABG TCO2 25 mmol/L (19-24); Allen Test Performed? Yes
[2020-03-14 21:41] LABS: Anisocytosis Slight; Basophils % (A) 0 %; Eosinophils # (A) 0.1 k/uL (0-0.7); Eosinophils % (A) 0 %; HGB 8.1 gm/dL (13.0-17.5); Hypochromasia Marked; Lymphocytes # (A) 0.7 k/uL (1.0-4.8); Lymphocytes % (A) 2 %; MCH 27.3 pg (25.0-35.0); MCHC 29.1 g/dL (31.0-37.0); MCV 93.9 fL (80.0-100.0); Mean Platelet Volume 8.9; Monocytes # (A) 0.8 k/uL (0-1.0); Monocytes % (A) 3 %; Neutrophils # (A) 30.3 k/uL (1.3-7.7); Neutrophils % (A) 94 %; Platelet Count 420 k/uL (150-450); Poikilocytosis Slight; RBC 2.98 m/uL (4.30-5.90); RDW 17.7 % (11.5-15.5); WBC 32.2 k/uL (3.8-10.6)
[2020-03-14 21:53] LABS: Albumin 2.5 g/dL (3.5-5.0); Potassium 3.8 mmol/L (3.5-5.1); Total Protein 5.1 g/dL (6.3-8.2)
[2020-03-14 23:27] LABS: Glucose,Whole Blood 172 mg/dL (75-99)
[2020-03-15] MEDS: IPRATROPIUM-ALBUTEROL 3 ML NEB INHALATION SCH ×5 (03:05→21:08)
[2020-03-15 04:55] LABS: ABG Base Excess -1.1 mmol/L; ABG HCO3 24 mmol/L (21-25); ABG PCO2 38 mmHg (35-45); ABG PO2 385 mmHg (83-108); ABG TCO2 25 mmol/L (19-24); Allen Test Performed? Yes
[2020-03-15 05:55] LABS: Glucose,Whole Blood 173 mg/dL (75-99)
[2020-03-15] MEDS: INSULIN ASPART (NovoLOG) 100 UNIT/ML VIAL SQ SCH ×3 (05:55→18:03)
[2020-03-15] MEDS: VANCOMYCIN ORAL SOLUTION 250 MG/5 ML BOTTLE PO SCH ×3 (05:57→17:58)
[2020-03-15] MEDS: CALCIUM ACETATE 667 MG TAB PO SCH ×3 (05:57→17:58)
[2020-03-15 06:47] LABS: Anisocytosis Slight; Basophils % (A) 0 %; Eosinophils % (A) 0 %; HCT 27.8 % (39.0-53.0); Hypochromasia Marked; Lymphocytes % (A) 3 %; MCH 27.3 pg (25.0-35.0); MCHC 28.8 g/dL (31.0-37.0); MCV 94.9 fL (80.0-100.0); Macrocytosis Slight; Mean Platelet Volume 9.4; Monocytes % (A) 3 %; Neutrophils # (A) 30.6 k/uL (1.3-7.7); Neutrophils % (A) 93 %; Platelet Count 457 k/uL (150-450); Poikilocytosis Slight; RBC 2.92 m/uL (4.30-5.90); RDW 18.1 % (11.5-15.5); WBC 32.8 k/uL (3.8-10.6)
[2020-03-15 06:53] LABS: Calcium 7.8 mg/dL (8.4-10.2); Potassium 4.1 mmol/L (3.5-5.1)
[2020-03-15] MEDS: ANIDULAFUNGIN 100 MG in SODIUM CHLORIDE 0.9% 100 ML IVPB SCH (07:37)
--- NOTE | 2020-03-15 08:01 | P.PN ---
Subjective Progress Note Date: 03/15/20 Principal diagnosis: Paroxysmal atrial fibrillation This is a 70-year-old gentleman who was admitted to the hospital after he fell and developed left-sided rib fracture along with splenic rupture where he required splenectomy. We involved in the care of the patient because of p aroxysmal atrial fibrillation. The patient was seen today March 152019. He is intubated on mechanical ventilation. He still requires small dose of norepinephrine. Currently he is on amiodarone by mouth and he is also on oral anticoagulation. There is some issues in giving his by mouth medication and in this case I would put him on heparin IV and also with him on amiodarone IV in case he cannot take his oral anticoagulation and oral amiodarone. Currently he is in atrial fibrillation was controlled heart rate. Objective - Vital Signs Vital signs: Vital Signs Temp 97.7 F 03/15/20 04:00 Pulse 71 03/15/20 07:00 Resp 23 03/15/20 07:00 BP 112/56 03/15/20 07:00 Pulse Ox 98 03/15/20 07:00 Intake & Output 03/14/20 03/15/20 03/15/20 18:59 06:59 18:59 Intake Total 446.813 557.217 72.697 Output Total 225 295 30 Balance 221.813 262.217 42.697 Weight 88.5 kg 85.5 kg Intake: IV 240 240 20 Sodium Chloride 0.9% 1, 240 240 20 000 ml @ 20 mls/hr IV . Q24H [facility] Rx#:[id number] Intake, IV Titration 176.813 317.217 52.697 Amount Dexmedetomidine/0.9% NaCl 65.896 25.740 (Pmx) 400 mcg In Empty Bag 1 bag @ Titrate IV . Q0M [facility] Rx#:[id number] Diltiazem 125 mg In 110.917 29.084 Sodium Chloride 0.9% 100 ml @ 5 MG/HR 5 mls/hr IV .Q24H [facility] Rx#:[id number] Norepinephrine 32 mg In 10.525 8.447 Sodium Chloride 0.9% 218 ml @ 0.14 MCG/KG/MIN 6. 759 mls/hr IV .Q24H [facility] Rx#:[id number] propofoL 1,000 mg In 251.868 44.25 Empty Bag 1 bag @ Titrate IV .Q0M [facility] Rx#: [id number] Tube Feeding 0 Other 30 Output: Gastric Drainage 100 Urine 225 195 30 Other: Voiding Method Indwelling Catheter Indwelling Catheter Indwelling Catheter # Bowel Movements 1 ABP, PAP, CO, CI - Last Documented Arterial Blood Pressure 129/50 - Constitutional General appearance: Present: no acute distress - Respiratory Respiratory: bilateral: diminished - Cardiovascular Rhythm: irregularly irregular Heart sounds: normal: S1, S2 - Labs CBC & Chem 7: 03/15/20 05:50 03/15/20 05:50 Labs: Abnormal Lab Results - Last 24 Hours (Table) 03/14/20 03/14/20 03/14/20 Range/Units 12:29 18:05 20:26 WBC (3.8-10.6) k/uL RBC (4.30-5.90) m/uL Hgb (13.0-17.5) gm/dL Hct (39.0-53.0) % MCHC (31.0-37.0) g/dL RDW (11.5-15.5) % Plt Count (150-450) k/uL Neutrophils # (1.3-7.7) k/uL Lymphocytes # (1.0-4.8) k/uL ABG pO2 61 L (83-108) mmHg ABG Total CO2 25 H (19-24) mmol/L ABG O2 Saturation 89.6 L (94-97) % BUN (9-20) mg/dL Creatinine (0.66-1.25) mg/dL Glucose (74-99) mg/dL POC Glucose (mg/dL) 142 H 192 H (75-99) mg/dL Calcium (8.4-10.2) mg/dL Alkaline Phosphatase (38-126) U/L Total Protein (6.3-8.2) g/dL Albumin (3.5-5.0) g/dL 03/14/20 03/14/20 03/14/20 Range/Units 21:19 21:19 23:25 WBC 32.2 H (3.8-10.6) k/uL RBC 2.98 L (4.30-5.90) m/uL Hgb 8.1 L (13.0-17.5) gm/dL Hct 28.0 L (39.0-53.0) % MCHC 29.1 L (31.0-37.0) g/dL RDW 17.7 H (11.5-15.5) % Plt Count (150-450) k/uL Neutrophils # 30.3 H (1.3-7.7) k/uL Lymphocytes # 0.7 L (1.0-4.8) k/uL ABG pO2 (83-108) mmHg ABG Total CO2 (19-24) mmol/L ABG O2 Saturation (94-97) % BUN 78 H (9-20) mg/dL Creatinine 3.56 H (0.66-1.25) mg/dL Glucose 172 H (74-99) mg/dL POC Glucose (mg/dL) 172 H (75-99) mg/dL Calcium 8.0 L (8.4-10.2) mg/dL Alkaline Phosphatase 206 H (38-126) U/L Total Protein 5.1 L (6.3-8.2) g/dL Albumin 2.5 L (3.5-5.0) g/dL 03/15/20 03/15/20 03/15/20 Range/Units 04:52 05:50 05:50 WBC 32.8 H (3.8-10.6) k/uL RBC 2.92 L (4.30-5.90) m/uL Hgb 8.0 L (13.0-17.5) gm/dL Hct 27.8 L (39.0-53.0) % MCHC 28.8 L (31.0-37.0) g/dL RDW 18.1 H (11.5-15.5) % Plt Count 457 H (150-450) k/uL Neutrophils # 30.6 H (1.3-7.7) k/uL Lymphocytes # (1.0-4.8) k/uL ABG pO2 385 H (83-108) mmHg ABG Total CO2 25 H (19-24) mmol/L ABG O2 Saturation 100.0 H (94-97) % BUN 88 H (9-20) mg/dL Creatinine 3.70 H (0.66-1.25) mg/dL Glucose 166 H (74-99) mg/dL POC Glucose (mg/dL) (75-99) mg/dL Calcium 7.8 L (8.4-10.2) mg/dL Alkaline Phosphatase (38-126) U/L Total Protein (6.3-8.2) g/dL Albumin (3.5-5.0) g/dL 03/15/20 Range/Units 05:52 WBC (3.8-10.6) k/uL RBC (4.30-5.90) m/uL Hgb (13.0-17.5) gm/dL Hct (39.0-53.0) % MCHC (31.0-37.0) g/dL RDW (11.5-15.5) % Plt Count (150-450) k/uL Neutrophils # (1.3-7.7) k/uL Lymphocytes # (1.0-4.8) k/uL ABG pO2 (83-108) mmHg ABG Total CO2 (19-24) mmol/L ABG O2 Saturation (94-97) % BUN (9-20) mg/dL Creatinine (0.66-1.25) mg/dL Glucose (74-99) mg/dL POC Glucose (mg/dL) 173 H (75-99) mg/dL Calcium (8.4-10.2) mg/dL Alkaline Phosphatase (38-126) U/L Total Protein (6.3-8.2) g/dL Albumin (3.5-5.0) g/dL Microbiology - Last 24 Hours (Table) 03/11/20 17:55 Blood Culture - Preliminary Blood No Growth after 72 hours 03/12/20 17:22 Gram Stain - Preliminary Sputum Sputum Culture - Preliminary Selina albicans Yeast species 03/12/20 09:30 Gram Stain - Preliminary Neck Wound Culture - Preliminary Gram Neg Bacilli Assessment and Plan Assessment: Assessment #1 status post fall with rib fracture #2 status post splenectomy #3 paroxysmal atrial fibrillation #4 multiple comorbid conditions Plan #1 right wean the patient from norepinephrine #2 continue the current medical regimen #3 follow-up with the patient
--- NOTE | 2020-03-15 08:15 | XR ---
EXAMINATION TYPE: XR chest 1V portable DATE OF EXAM: 03/15/2020 COMPARISON: Chest x-ray 03/14/2020 HISTORY: Shortness of breath and respiratory distress, on ventilator, abnormal chest x-ray TECHNIQUE: Single frontal view of the chest is obtained. FINDINGS: Patient is rotated. Tracheostomy tube remains overlying appropriate position. There is no evident pneumothorax. Pleural parenchymal changes at the left lung base are again noted. Patient is p ost median sternotomy. NG tube is stable. Left-sided PICC line shows the distal tip overlying the reg ion of the superior vena cava. Heart size is unchanged. There is calcified granuloma right lower lobe . IMPRESSION: Findings are similar to prior exam. Difficult to exclude effusion, pneumonia versus nini a, atelectasis.
[2020-03-15] MEDS: MORPHINE ORAL SOLN 10 MG/5 ML CUP PO SCH ×2 (09:09→15:35)
[2020-03-15] MEDS: SODIUM CHLORIDE 0.9% 1,000 ML IV SCH (09:16)
[2020-03-15] MEDS: CHLORHEXIDINE GLUCONATE 15 ML CUP MUCOUS MEM SCH ×2 (09:19→21:43)
[2020-03-15] MEDS: APIXABAN 2.5 MG TABLET PO SCH (10:57)
[2020-03-15] MEDS: AMIODARONE 200 MG TAB PO SCH (10:57)
[2020-03-15] MEDS: THIAMINE 100 MG TAB PO SCH (10:58)
[2020-03-15] MEDS ORDERED: HEPARIN SODIUM,PORCINE 5,000 UNIT/ML 1 ML VIAL IV PRN (11:15)
[2020-03-15] MEDS ORDERED: HEPARIN SODIUM,PORCINE 5,000 UNIT/ML 1 ML VIAL IV ONE (11:15)
[2020-03-15] MEDS ORDERED: AMIODARONE 360 MG in DEXTROSE 5% IN WATER 200 ML IV ONE ×2 (11:16)
[2020-03-15 11:37] LABS: Glucose,Whole Blood 130 mg/dL (75-99)
--- NOTE | 2020-03-15 11:44 | P.PN ---
Subjective patient is seen in follow-up for acute kidney injury, currently hemodialysis dependent. Tolerating dialysis well. On low-dose Levophed. Has a tra cheostomy. On 45% FiO2. Urine output 10-20 mL an hour. Has an NG tube for possible bowel obstruction. Vital signs are stable. on Levophed. General: The patient appeared well nourished and normally developed. HEENT: Head exam is unremarkable. Neck is without jugular venous distension. NG tube noted. tracheostomy. LUNGS: Breath sounds decreased. HEART: Rate and Rhythm are regular. ABDOMEN: soft, nondistended. EXTREMITITES: 1+ edema. Objective - Vital Signs Vital signs: Vital Signs Temp 98 F 03/15/20 08:00 Pulse 94 03/15/20 11:33 Resp 28 H 03/15/20 11:00 BP 148/90 03/15/20 11:00 Pulse Ox 96 03/15/20 11:00 Intake & Output 03/14/20 03/15/20 03/15/20 18:59 06:59 18:59 Intake Total 446.813 557.217 196.102 Output Total 225 295 80 Balance 221.813 262.217 116.102 Weight 88.5 kg 85.5 kg Intake: IV 240 240 80 Sodium Chloride 0.9% 1, 240 240 80 000 ml @ 20 mls/hr IV . Q24H [facility] Rx#:[id number] Intake, IV Titration 176.813 317.217 116.102 Amount Dexmedetomidine/0.9% NaCl 65.896 25.740 (Pmx) 400 mcg In Empty Bag 1 bag @ Titrate IV . Q0M [facility] Rx#:[id number] Diltiazem 125 mg In 110.917 29.084 Sodium Chloride 0.9% 100 ml @ 5 MG/HR 5 mls/hr IV .Q24H [facility] Rx#:[id number] Norepinephrine 32 mg In 10.525 16.276 Sodium Chloride 0.9% 218 ml @ 0.14 MCG/KG/MIN 6. 759 mls/hr IV .Q24H [facility] Rx#:[id number] propofoL 1,000 mg In 251.868 99.826 Empty Bag 1 bag @ Titrate IV .Q0M [facility] Rx#: [id number] Tube Feeding 0 Other 30 Output: Gastric Drainage 100 Urine 225 195 80 Other: Voiding Method Indwelling Catheter Indwelling Catheter Indwelling Catheter # Bowel Movements 1 ABP, PAP, CO, CI - Last Documented Arterial Blood Pressure 129/50 - Labs CBC & Chem 7: 03/15/20 05:50 03/15/20 05:50 Labs: Abnormal Lab Results - Last 24 Hours (Table) 03/14/20 03/14/20 03/14/20 Range/Units 12:29 18:05 20:26 WBC (3.8-10.6) k/uL RBC (4.30-5.90) m/uL Hgb (13.0-17.5) gm/dL Hct (39.0-53.0) % MCHC (31.0-37.0) g/dL RDW (11.5-15.5) % Plt Count (150-450) k/uL Neutrophils # (1.3-7.7) k/uL Lymphocytes # (1.0-4.8) k/uL ABG pO2 61 L (83-108) mmHg ABG Total CO2 25 H (19-24) mmol/L ABG O2 Saturation 89.6 L (94-97) % BUN (9-20) mg/dL Creatinine (0.66-1.25) mg/dL Glucose (74-99) mg/dL POC Glucose (mg/dL) 142 H 192 H (75-99) mg/dL Calcium (8.4-10.2) mg/dL Alkaline Phosphatase (38-126) U/L Total Protein (6.3-8.2) g/dL Albumin (3.5-5.0) g/dL 03/14/20 03/14/20 03/14/20 Range/Units 21:19 21:19 23:25 WBC 32.2 H (3.8-10.6) k/uL RBC 2.98 L (4.30-5.90) m/uL Hgb 8.1 L (13.0-17.5) gm/dL Hct 28.0 L (39.0-53.0) % MCHC 29.1 L (31.0-37.0) g/dL RDW 17.7 H (11.5-15.5) % Plt Count (150-450) k/uL Neutrophils # 30.3 H (1.3-7.7) k/uL Lymphocytes # 0.7 L (1.0-4.8) k/uL ABG pO2 (83-108) mmHg ABG Total CO2 (19-24) mmol/L ABG O2 Saturation (94-97) % BUN 78 H (9-20) mg/dL Creatinine 3.56 H (0.66-1.25) mg/dL Glucose 172 H (74-99) mg/dL POC Glucose (mg/dL) 172 H (75-99) mg/dL Calcium 8.0 L (8.4-10.2) mg/dL Alkaline Phosphatase 206 H (38-126) U/L Total Protein 5.1 L (6.3-8.2) g/dL Albumin 2.5 L (3.5-5.0) g/dL 03/15/20 03/15/20 03/15/20 Range/Units 04:52 05:50 05:50 WBC 32.8 H (3.8-10.6) k/uL RBC 2.92 L (4.30-5.90) m/uL Hgb 8.0 L (13.0-17.5) gm/dL Hct 27.8 L (39.0-53.0) % MCHC 28.8 L (31.0-37.0) g/dL RDW 18.1 H (11.5-15.5) % Plt Count 457 H (150-450) k/uL Neutrophils # 30.6 H (1.3-7.7) k/uL Lymphocytes # (1.0-4.8) k/uL ABG pO2 385 H (83-108) mmHg ABG Total CO2 25 H (19-24) mmol/L ABG O2 Saturation 100.0 H (94-97) % BUN 88 H (9-20) mg/dL Creatinine 3.70 H (0.66-1.25) mg/dL Glucose 166 H (74-99) mg/dL POC Glucose (mg/dL) (75-99) mg/dL Calcium 7.8 L (8.4-10.2) mg/dL Alkaline Phosphatase (38-126) U/L Total Protein (6.3-8.2) g/dL Albumin (3.5-5.0) g/dL 03/15/20 03/15/20 Range/Units 05:52 11:36 WBC (3.8-10.6) k/uL RBC (4.30-5.90) m/uL Hgb (13.0-17.5) gm/dL Hct (39.0-53.0) % MCHC (31.0-37.0) g/dL RDW (11.5-15.5) % Plt Count (150-450) k/uL Neutrophils # (1.3-7.7) k/uL Lymphocytes # (1.0-4.8) k/uL ABG pO2 (83-108) mmHg ABG Total CO2 (19-24) mmol/L ABG O2 Saturation (94-97) % BUN (9-20) mg/dL Creatinine (0.66-1.25) mg/dL Glucose (74-99) mg/dL POC Glucose (mg/dL) 173 H 130 H (75-99) mg/dL Calcium (8.4-10.2) mg/dL Alkaline Phosphatase (38-126) U/L Total Protein (6.3-8.2) g/dL Albumin (3.5-5.0) g/dL Microbiology - Last 24 Hours (Table) 02/29/20 11:00 Fungal Culture - Preliminary Bronchial Washings - Right 03/02/20 08:30 Fungal Culture - Preliminary Cerebral Spinal Fluid 03/12/20 17:22 Gram Stain - Preliminary Sputum Sputum Culture - Preliminary Selina albicans Selina sp,not albicans/galbr 03/11/20 17:55 Blood Culture - Preliminary Blood No Growth after 72 hours 03/12/20 09:30 Gram Stain - Preliminary Neck Wound Culture - Preliminary Gram Neg Bacilli Assessment and Plan Plan: assessment: 1. Acute kidney injury secondary to ATN secondary to infection and hemodynamic instability. started on hemodialysis March 04 due to oliguria and hyperkalemia. Baseline creatinine near 1. UA fairly benign. 2. Hypervolemic hyponatremia. improved with ultrafiltration. 3. A. fib with RVR maintained on amiodarone and heparin. 4. Status post fall with pneumothorax, multiple rib fractures, hemoperitoneum and ruptured spleen status post emergent chest tube placement and splenectomy. 5. acute blood loss anemia status post blood transfusions this admission. improved post blood transfusion. Also on Aranesp. 6. Metabolic acidosis secondary to acute kidney injury. stable. 7. 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 8. Hyperkalemia secondary to acute kidney injury and metabolic acidosis. ?GI bleed. improved postdialysis. 9. Third-degree heart block. Cardiology following. 10. Hyperphosphatemia secondary to acute kidney injury maintained on PhosLo. Better. 11. Volume overload. significantly improved with ultrafiltration. plan: currently seen while undergoing hemodialysis - will be maintained on Sunday schedule. Schedule for permacath placement. Wean FiO2 and vasopressors. Potential PEG tube placement this week. Continue to monitor renal function and urine output.
[2020-03-15] MEDS: HEPARIN SOD,PORK IN 0.45% NACL 25,000 UNIT in 0.45% NACL 1 250ML.BAG IV SCH (11:48)
[2020-03-15 12:00] LABS: INR 1.1 (<1.2); Prothrombin Time 11.4 sec (9.0-12.0)
--- NOTE | 2020-03-15 12:02 | P.CONS ---
History of Present Illness - Reason for Consult Consult date: 03/15/20 wound care - History of Present Illness 70-year-old patient being seen in the ICU by the wound care center for nonhealing ulceration to the penis. Patient had significant swelling to the penis and scrotum resulting in blistering and open ulcerations. Ulcerations have been treated just with cleaning the area and keeping it dry. Review of Systems ROS unobtainable: due to endotracheal tube Past Medical History Past Medical History: Coronary Artery Disease (CAD), Hyperlipidemia, Prostate Disorder Additional Past Medical History / Comment(s): Chronic back and neck pain, cervical fusion 2009 History of Any Multi-Drug Resistant Organisms: None Reported Past Surgical History: Coronary Bypass/CABG Additional Past Surgical History / Comment(s): CABG and tripple bypass, hernia inguinal , cervical spine fusion Past Anesthesia/Blood Transfusion Reactions: No Reported Reaction Past Psychological History: Anxiety Smoking Status: Former smoker Past Alcohol Use History: None Reported Past Drug Use History: None Reported, Marijuana Medications and Allergies Home Medications Medication Instructions Recorded Confirmed Type Finasteride [Proscar] 5 mg PO HS 02/17/20 02/17/20 History Morphine Sulfate ER [Ms Contin] 15 mg PO Q12HR 02/17/20 02/17/20 History Rosuvastatin Calcium [Crestor] 10 mg PO HS 02/17/20 02/17/20 History Tadalafil [Cialis] 20 mg PO Q36H PRN 02/17/20 02/17/20 History Tamsulosin HCl [Flomax] 0.8 mg PO HS 02/17/20 02/17/20 History atenoloL [Atenolol] 25 mg PO HS 02/17/20 02/17/20 History traZODone HCL [Desyrel] 50 mg PO HS PRN 02/17/20 02/17/20 History Allergies Allergy/AdvReac Type Severity Reaction Status Date / Time fentanyl Allergy Unknown Verified 02/17/20 18:35 nitroglycerin AdvReac Unknown Verified 02/17/20 18:35 [From Nitroglyn] Physical Exam Vitals: Vital Signs Temp Pulse Resp BP Pulse Ox 03/15/20 11:58 106 H 03/15/20 11:33 94 03/15/20 11:00 98 28 H 148/90 96 03/15/20 10:00 102 H 22 132/63 96 03/15/20 09:00 80 22 106/52 96 03/15/20 08:10 75 03/15/20 08:00 98 F 77 22 111/51 97 03/15/20 07:58 75 03/15/20 07:00 71 23 112/56 98 03/15/20 06:00 73 19 102/53 98 03/15/20 05:00 80 23 114/59 98 03/15/20 04:00 97.7 F 63 23 109/57 99 03/15/20 03:18 69 03/15/20 03:08 76 03/15/20 03:00 71 20 112/56 98 03/15/20 02:00 67 22 114/56 98 03/15/20 01:00 60 22 119/56 98 03/15/20 00:00 98.1 F 70 22 116/56 98 03/14/20 23:23 71 22 126/64 99 03/14/20 23:21 72 03/14/20 23:04 71 03/14/20 23:00 68 22 120/61 99 03/14/20 22:00 75 22 102/57 98 03/14/20 21:00 80 22 83/44 97 03/14/20 20:00 97.6 F 123 H 36 H 151/76 92 L 03/14/20 19:43 112 H 03/14/20 19:33 108 H 03/14/20 19:00 109 H 28 H 145/78 95 03/14/20 18:00 76 26 H 104/51 95 03/14/20 17:00 82 22 117/54 95 03/14/20 16:00 97.5 F L 70 23 105/54 96 03/14/20 15:31 69 03/14/20 15:13 66 03/14/20 15:00 75 26 H 103/47 97 03/14/20 14:00 71 24 104/49 95 03/14/20 13:00 76 23 99/57 96 03/14/20 12:00 97.5 F L 77 22 101/53 96 Intake and Output 03/14/20 03/15/20 03/15/20 22:59 06:59 14:59 Intake Total 274.596 393.965 196.102 Output Total 120 245 80 Balance 154.596 148.965 116.102 Intake: IV 160 160 80 Sodium Chloride 0.9% 1, 160 160 80 000 ml @ 20 mls/hr IV . Q24H [facility] Rx#:[id number] Intake, IV Titration 114.596 233.965 116.102 Amount Dexmedetomidine/0.9% NaCl 57.084 (Pmx) 400 mcg In Empty Bag 1 bag @ Titrate IV . Q0M [facility] Rx#:[id number] Diltiazem 125 mg In 1.667 27.417 Sodium Chloride 0.9% 100 ml @ 5 MG/HR 5 mls/hr IV .Q24H [facility] Rx#:[id number] Norepinephrine 32 mg In 0 10.525 16.276 Sodium Chloride 0.9% 218 ml @ 0.14 MCG/KG/MIN 6. 759 mls/hr IV .Q24H [facility] Rx#:[id number] propofoL 1,000 mg In 55.845 196.023 99.826 Empty Bag 1 bag @ Titrate IV .Q0M [facility] Rx#: [id number] Output: Gastric Drainage 100 Urine 120 145 80 Other: Voiding Method Indwelling Catheter Indwelling Catheter Indwelling Catheter # Bowel Movements 1 1 Weight 85.5 kg Physical exam: General Appearance: Alert, cooperative, no distress, appears stated age. Skin: Cluster of 3 ulcerations to the lateral aspect of the penis largest measuring approximately 2 x 4 x 0.2 cm with fat layer exposed, ulceration shows no granulation within the wound bed significant amount of slough noted wound edge is attached to the wound bed. Periwound show some excoriation all other Skin color, texture, tugor normal, no rashes or lesions. Neurologic: Alert oriented x3 Results CBC & Chem 7: 03/15/20 05:50 03/15/20 05:50 Labs: Abnormal Lab Results - Last 24 Hours (Table) 03/14/20 03/14/20 03/14/20 Range/Units 12:29 18:05 20:26 WBC (3.8-10.6) k/uL RBC (4.30-5.90) m/uL Hgb (13.0-17.5) gm/dL Hct (39.0-53.0) % MCHC (31.0-37.0) g/dL RDW (11.5-15.5) % Plt Count (150-450) k/uL Neutrophils # (1.3-7.7) k/uL Lymphocytes # (1.0-4.8) k/uL ABG pO2 61 L (83-108) mmHg ABG Total CO2 25 H (19-24) mmol/L ABG O2 Saturation 89.6 L (94-97) % BUN (9-20) mg/dL Creatinine (0.66-1.25) mg/dL Glucose (74-99) mg/dL POC Glucose (mg/dL) 142 H 192 H (75-99) mg/dL Calcium (8.4-10.2) mg/dL Alkaline Phosphatase (38-126) U/L Total Protein (6.3-8.2) g/dL Albumin (3.5-5.0) g/dL 03/14/20 03/14/20 03/14/20 Range/Units 21:19 21:19 23:25 WBC 32.2 H (3.8-10.6) k/uL RBC 2.98 L (4.30-5.90) m/uL Hgb 8.1 L (13.0-17.5) gm/dL Hct 28.0 L (39.0-53.0) % MCHC 29.1 L (31.0-37.0) g/dL RDW 17.7 H (11.5-15.5) % Plt Count (150-450) k/uL Neutrophils # 30.3 H (1.3-7.7) k/uL Lymphocytes # 0.7 L (1.0-4.8) k/uL ABG pO2 (83-108) mmHg ABG Total CO2 (19-24) mmol/L ABG O2 Saturation (94-97) % BUN 78 H (9-20) mg/dL Creatinine 3.56 H (0.66-1.25) mg/dL Glucose 172 H (74-99) mg/dL POC Glucose (mg/dL) 172 H (75-99) mg/dL Calcium 8.0 L (8.4-10.2) mg/dL Alkaline Phosphatase 206 H (38-126) U/L Total Protein 5.1 L (6.3-8.2) g/dL Albumin 2.5 L (3.5-5.0) g/dL 03/15/20 03/15/20 03/15/20 Range/Units 04:52 05:50 05:50 WBC 32.8 H (3.8-10.6) k/uL RBC 2.92 L (4.30-5.90) m/uL Hgb 8.0 L (13.0-17.5) gm/dL Hct 27.8 L (39.0-53.0) % MCHC 28.8 L (31.0-37.0) g/dL RDW 18.1 H (11.5-15.5) % Plt Count 457 H (150-450) k/uL Neutrophils # 30.6 H (1.3-7.7) k/uL Lymphocytes # (1.0-4.8) k/uL ABG pO2 385 H (83-108) mmHg ABG Total CO2 25 H (19-24) mmol/L ABG O2 Saturation 100.0 H (94-97) % BUN 88 H (9-20) mg/dL Creatinine 3.70 H (0.66-1.25) mg/dL Glucose 166 H (74-99) mg/dL POC Glucose (mg/dL) (75-99) mg/dL Calcium 7.8 L (8.4-10.2) mg/dL Alkaline Phosphatase (38-126) U/L Total Protein (6.3-8.2) g/dL Albumin (3.5-5.0) g/dL 03/15/20 03/15/20 Range/Units 05:52 11:36 WBC (3.8-10.6) k/uL RBC (4.30-5.90) m/uL Hgb (13.0-17.5) gm/dL Hct (39.0-53.0) % MCHC (31.0-37.0) g/dL RDW (11.5-15.5) % Plt Count (150-450) k/uL Neutrophils # (1.3-7.7) k/uL Lymphocytes # (1.0-4.8) k/uL ABG pO2 (83-108) mmHg ABG Total CO2 (19-24) mmol/L ABG O2 Saturation (94-97) % BUN (9-20) mg/dL Creatinine (0.66-1.25) mg/dL Glucose (74-99) mg/dL POC Glucose (mg/dL) 173 H 130 H (75-99) mg/dL Calcium (8.4-10.2) mg/dL Alkaline Phosphatase (38-126) U/L Total Protein (6.3-8.2) g/dL Albumin (3.5-5.0) g/dL Microbiology - Last 24 Hours (Table) 02/29/20 11:00 Fungal Culture - Preliminary Bronchial Washings - Right 03/02/20 08:30 Fungal Culture - Preliminary Cerebral Spinal Fluid 03/12/20 17:22 Gram Stain - Preliminary Sputum Sputum Culture - Preliminary Selina albicans Selina sp,not albicans/galbr 03/11/20 17:55 Blood Culture - Preliminary Blood No Growth after 72 hours 03/12/20 09:30 Gram Stain - Preliminary Neck Wound Culture - Preliminary Gram Neg Bacilli Assessment and Plan (1) 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 Patient may require further wound care in the outpatient setting as appropriate Thank you kindly for the consultation any questions please contact the wound care center DNP note has been reviewed and discussed with Dr. Vázquez and the impression and plan of care has been directed as dictated.
--- NOTE | 2020-03-15 12:17 | P.PN ---
Subjective Progress Note Date: 03/15/20 Principal diagnosis: Status post fall off ladder and significant trauma to chest and abdomen. This is a 69-year-old male patient who was working on his gutters when he fell off a 15 foot ladder. This was unwitnessed. He end up calling his who in turn called EMS and the patient was brought in to the emergency department. Upon arrival, the patient was hypotensive and he was in shock. The patient initial chest x-ray showed several left-sided fractures and small amount of subcutaneous air in addition to a left-sided pneumothorax. The x-ray of the pelvis showed no evidence of any fracture or dislocation. The CAT scan of the brain showed age-related atrophy and chronic small vessel ischemic changes without any acute intracranial process. CAT scan of cervical spine showed no acute abnormalities. On and has Been of the cervical spine was done and the bone and soft tissue windows showed no acute abnormalities. There was no evidence of any fracture. Along with multiple left-sided rib fractures third extending to the seventh rib. There was also spending the sedation with estimated grade 3 injury the patient. The patient's hemoglobin dropped to 10.5. The patient received a total of 2 L of IV fluid and 40 minutes of packed RBC. Morning hemoglobin today is At 13.4. The patient was taken to the operating room yesterday. The patient underwent a left-sided chest tube insertion. The patient also had splenectomy done and following that the patient was kept intubated on a mechanical ventilator and he was transferred to the intensive care unit. Note that the patient takes morphine outpatient basis and he has chronic pain and chronic narcotic requirements and on outpatient basis he takes morphine sulfate in the form of MS Contin 50 mg every 12 hours. Overnight, the patient was intubated on mechanical ventilator. He was sedated with a combination of propofol and he was also placed on morphine drip after being given several boluses control his pain. This morning, Profore is running at 70 mg per KG per minute. Morphine is running at 8 mg an hour. The patient is on normal saline at rate of 85 mL an hour. The patient has a left sided chest tube. Total amount of output is in order 110 mL of serosanguineous material without evidence of any air leak. The ventilator setting shows an assist- control mode rate of 20 with a tidal volume of 500 and FiO2 of 40% with a PEEP of 5. The patient's FiO2 is down to 40% overnight. The morning blood gases showed a pH of 7.4 with a pCO2 of 37 and pO2 of 121. The chest x-ray from this morning shows that the patient has an indwelling left-sided chest tube without any signs or pneumothorax. There is also a basilar pleural-based opacity along with multiple left-sided rib fractures and ET tube is in a good location. He is at approximately slightly swollen probably related to an infiltrated IV. He did not require any pressors. He remains hemodynamically stable. Lactic acid remains slightly elevated at 2.9 03/14/2020, the patient had a setback this morning. He had large volume emesis. He had several emesis and possibly aspirated. He became tachypneic and short of breath. He is awake however he became more restless and uncomfortable post aspiration. Based on that, I asked the nursing staff to utilize some Precedex if needed to control agitation. Meanwhile, the patient had his tube feeds held. Affect some of the abdomen was done that shows possible small bowel obstruction, partial and the patient has fecal stasis/infection the right lower quadrant area. The patient notes was taking treatment for C. diff colitis and he was on a combination of vancomycin and IV Flagyl. No diarrhea for now. Tube feeds on hold for now. He remains on a mechanical ventilator. His assist- control mode at the rate of 22 with a tidal volume of 500 and FiO2 of 40% with a PEEP of 5. The chest x-ray from today shows further clearing of the bilateral pulmonary infiltrates and this was done before the aspiration episode. No hemodialysis will be done today. His blood gases showed a pH of 7.5 with a pCO2 of 35 and pO2 of 92. Is still having episodic fever. The sputum around the tracheostomy tube was positive for gram-negative and I added the troponin. ID is on the case and the patient is taking a combination of daptomycin and Eraxis. He is on no Cardizem drip for now. Tube feeds are currently on hold. No other significant events otherwise for now. Noted the patient was showing significant amount of progress in terms of his neuro status. Abdominal wound is dry clean and intact. Bowel sounds are hypoactive for now. Patient was reevaluated today on 03/15/20, patient had a major setback last night, he developed extreme agitation, became asynchronous with the ventilator, and he developed high peak airway pressures on the ventilator. Patient required sedation again, and he is now on propofol drip at 30 mcg/kg/m. Patient also developed hypotension requiring norepinephrine presently at 0.02 mcg/kg/m. He is off Cardizem. His ventilator settings today are assist control rate of 22 tidal volume is 500 FiO2 50% and PEEP of 5. ABG this morning showed a pO2 of 385 pCO2 of 38 pH of 7.4. Hence his FiO2 was decreased down to 45%, and I kept him on volume control plus. Tidal volume at 500. Patient was admitted on 02/17/20, and has been in the hospital since. Yesterday the patient had 2 episodes of vomiting and he may have aspirated. His tube feeding is presently on hold. He developed some abdominal distention, and that being addressed by surgery on the case. . Recent cultures have been basically nondiagnostic. Develop leukocytosis and the repeat cultures are ordered. His ventilator settings were changed and his FiO2 was decreased down to 45%. Patient will undergo hemodialysis today. Still having episodes of fever. His most recent sputum cultures have shown Selina and gram-negative bacilli antibiotics stallworth, patient is on daptomycin, meropenem, and Eraxis. Objective - Vital Signs Vital signs: Vital Signs Temp 98 F 03/15/20 08:00 Pulse 106 H 03/15/20 11:58 Resp 28 H 03/15/20 11:00 BP 148/90 03/15/20 11:00 Pulse Ox 96 03/15/20 11:00 Intake & Output 03/14/20 03/15/20 03/15/20 18:59 06:59 18:59 Intake Total 446.813 557.217 196.102 Output Total 225 295 80 Balance 221.813 262.217 116.102 Weight 88.5 kg 85.5 kg Intake: IV 240 240 80 Sodium Chloride 0.9% 1, 240 240 80 000 ml @ 20 mls/hr IV . Q24H [facility] Rx#:[id number] Intake, IV Titration 176.813 317.217 116.102 Amount Dexmedetomidine/0.9% NaCl 65.896 25.740 (Pmx) 400 mcg In Empty Bag 1 bag @ Titrate IV . Q0M [facility] Rx#:[id number] Diltiazem 125 mg In 110.917 29.084 Sodium Chloride 0.9% 100 ml @ 5 MG/HR 5 mls/hr IV .Q24H [facility] Rx#:[id number] Norepinephrine 32 mg In 10.525 16.276 Sodium Chloride 0.9% 218 ml @ 0.14 MCG/KG/MIN 6. 759 mls/hr IV .Q24H [facility] Rx#:[id number] propofoL 1,000 mg In 251.868 99.826 Empty Bag 1 bag @ Titrate IV .Q0M [facility] Rx#: [id number] Tube Feeding 0 Other 30 Output: Gastric Drainage 100 Urine 225 195 80 Other: Voiding Method Indwelling Catheter Indwelling Catheter Indwelling Catheter # Bowel Movements 1 ABP, PAP, CO, CI - Last Documented Arterial Blood Pressure 129/50 - Exam Physical Exam: Revealed a 70-year-old white male, sedated, mechanically ventilated, sedated with propofol, Head: Atraumatic, normocephalic, tracheostomy is intact, nasogastric tube is intact. HEENT:[Neck is supple.] [No neck masses.] [No thyromegaly.] [No JVD.] PERRLA, EOMI, no icterus. Chest: Symmetrical chest expansion, crackles and rhonchi bilaterally. Cardiac Exam: Distant S1 and S2, no S3 gallop. No murmur. Abdomen: [Soft, nontender, no megaly, no rebound, no guarding, normal bowel sounds.] Extremities: No clubbing, 2+ bipedal edema, no cyanosis.. Good pulses bilaterally. Neurological Exam: Pupils are equally reactive to light, sedated, could not be assessed presently on propofol. Psychiatric: Could not be assessed Musculoskeletal: No deformities. Good muscle tone - Labs CBC & Chem 7: 03/15/20 05:50 03/15/20 05:50 Labs: Abnormal Lab Results - Last 24 Hours (Table) 03/14/20 03/14/20 03/14/20 Range/Units 12:29 18:05 20:26 WBC (3.8-10.6) k/uL RBC (4.30-5.90) m/uL Hgb (13.0-17.5) gm/dL Hct (39.0-53.0) % MCHC (31.0-37.0) g/dL RDW (11.5-15.5) % Plt Count (150-450) k/uL Neutrophils # (1.3-7.7) k/uL Lymphocytes # (1.0-4.8) k/uL ABG pO2 61 L (83-108) mmHg ABG Total CO2 25 H (19-24) mmol/L ABG O2 Saturation 89.6 L (94-97) % BUN (9-20) mg/dL Creatinine (0.66-1.25) mg/dL Glucose (74-99) mg/dL POC Glucose (mg/dL) 142 H 192 H (75-99) mg/dL Calcium (8.4-10.2) mg/dL Alkaline Phosphatase (38-126) U/L Total Protein (6.3-8.2) g/dL Albumin (3.5-5.0) g/dL 03/14/20 03/14/20 03/14/20 Range/Units 21:19 21:19 23:25 WBC 32.2 H (3.8-10.6) k/uL RBC 2.98 L (4.30-5.90) m/uL Hgb 8.1 L (13.0-17.5) gm/dL Hct 28.0 L (39.0-53.0) % MCHC 29.1 L (31.0-37.0) g/dL RDW 17.7 H (11.5-15.5) % Plt Count (150-450) k/uL Neutrophils # 30.3 H (1.3-7.7) k/uL Lymphocytes # 0.7 L (1.0-4.8) k/uL ABG pO2 (83-108) mmHg ABG Total CO2 (19-24) mmol/L ABG O2 Saturation (94-97) % BUN 78 H (9-20) mg/dL Creatinine 3.56 H (0.66-1.25) mg/dL Glucose 172 H (74-99) mg/dL POC Glucose (mg/dL) 172 H (75-99) mg/dL Calcium 8.0 L (8.4-10.2) mg/dL Alkaline Phosphatase 206 H (38-126) U/L Total Protein 5.1 L (6.3-8.2) g/dL Albumin 2.5 L (3.5-5.0) g/dL 03/15/20 03/15/20 03/15/20 Range/Units 04:52 05:50 05:50 WBC 32.8 H (3.8-10.6) k/uL RBC 2.92 L (4.30-5.90) m/uL Hgb 8.0 L (13.0-17.5) gm/dL Hct 27.8 L (39.0-53.0) % MCHC 28.8 L (31.0-37.0) g/dL RDW 18.1 H (11.5-15.5) % Plt Count 457 H (150-450) k/uL Neutrophils # 30.6 H (1.3-7.7) k/uL Lymphocytes # (1.0-4.8) k/uL ABG pO2 385 H (83-108) mmHg ABG Total CO2 25 H (19-24) mmol/L ABG O2 Saturation 100.0 H (94-97) % BUN 88 H (9-20) mg/dL Creatinine 3.70 H (0.66-1.25) mg/dL Glucose 166 H (74-99) mg/dL POC Glucose (mg/dL) (75-99) mg/dL Calcium 7.8 L (8.4-10.2) mg/dL Alkaline Phosphatase (38-126) U/L Total Protein (6.3-8.2) g/dL Albumin (3.5-5.0) g/dL 03/15/20 03/15/20 Range/Units 05:52 11:36 WBC (3.8-10.6) k/uL RBC (4.30-5.90) m/uL Hgb (13.0-17.5) gm/dL Hct (39.0-53.0) % MCHC (31.0-37.0) g/dL RDW (11.5-15.5) % Plt Count (150-450) k/uL Neutrophils # (1.3-7.7) k/uL Lymphocytes # (1.0-4.8) k/uL ABG pO2 (83-108) mmHg ABG Total CO2 (19-24) mmol/L ABG O2 Saturation (94-97) % BUN (9-20) mg/dL Creatinine (0.66-1.25) mg/dL Glucose (74-99) mg/dL POC Glucose (mg/dL) 173 H 130 H (75-99) mg/dL Calcium (8.4-10.2) mg/dL Alkaline Phosphatase (38-126) U/L Total Protein (6.3-8.2) g/dL Albumin (3.5-5.0) g/dL Microbiology - Last 24 Hours (Table) 02/29/20 11:00 Fungal Culture - Preliminary Bronchial Washings - Right 03/02/20 08:30 Fungal Culture - Preliminary Cerebral Spinal Fluid 03/12/20 17:22 Gram Stain - Preliminary Sputum Sputum Culture - Preliminary Selina albicans Selina sp,not albicans/galbr 03/11/20 17:55 Blood Culture - Preliminary Blood No Growth after 72 hours 03/12/20 09:30 Gram Stain - Preliminary Neck Wound Culture - Preliminary Gram Neg Bacilli Assessment and Plan Assessment: Impression: Status post fall off a ladder with trauma to chest and abdomen. 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 Traumatic left-sided rib fractures with 30% pneumothorax requiring chest tube placement. Has been removed already. Acute hemorrhagic shock on presentation. Acute blood loss anemia and patient received a total of 5 units of packed RBCs since admission. Acute hypoxic respiratory failure secondary to extreme agitation and delirium t remors requiring sedation, and detoxification, Chronic neck pain, patient is maintained chronically on MS Contin, remains on morphine drip. Coronary artery disease and previous CABG, echocardiogram is unremarkable. Dyslipidemia Paroxysmal atrial fibrillation , remains on amiodarone. Failure to wean, status post tracheostomy on 02/25/20. Toxic metabolic encephalopathy, acute. Status post PICC line placement postoperatively Status post bronchoscopy and lavage of the right upper lobe done on 02/29/20. Nondiagnostic. Partial small bowel obstruction along with emesis and aspiration, tube feeds presently on hold. Episodes of fever, being investigated, patient is on daptomycin, Eraxis, and Merrem. C. difficile colitis, treated with oral vancomycin, resolved. Acute kidney injury, requiring hemodialysis. Recommendation: Continue ventilatory support, Continue hemodynamic support. Continue nutritional support presently tube feeds are on hold. Continue Fleet enema for fecal impaction. Continue antibiotics and antifungal therapy as per infectious disease on the case. Continue hemodialysis for acute kidney injury. Continue to monitor mental status on a daily basis. And assess for weaning. Ask general surgery to consider PEG tube placement Decrease FiO2 to 45%. Check repeat blood cultures. Titrate and possibly discontinue norepinephrine. Daily assessment of mental status off sedation Overall prognosis remains poor and guarded. Critical care time is 36 minutes Time with Patient: Greater than 30
[2020-03-15 12:20] LABS: Anisocytosis Slight; HCT 33.8 % (39.0-53.0); Hypochromasia Marked; MCH 27.4 pg (25.0-35.0); MCHC 29.2 g/dL (31.0-37.0); MCV 93.6 fL (80.0-100.0); Platelet Count 445 k/uL (150-450); Poikilocytosis Slight; RBC 3.62 m/uL (4.30-5.90); RDW 17.6 % (11.5-15.5)
[2020-03-15 12:22] LABS: HGB 9.9 gm/dL (13.0-17.5)
[2020-03-15] MEDS: PANTOPRAZOLE 40 MG/10 ML VIAL IVP SCH (12:36)
[2020-03-15] MEDS: HYDROPHILIC CREAM 180 GM TUBE TOPICAL SCH (12:37)
[2020-03-15] MEDS: MEROPENEM 1 GM in SODIUM CHLORIDE 0.9% 100 ML IVPB SCH (12:37)
[2020-03-15 12:40] LABS: Glucose,Whole Blood 153 mg/dL (75-99)
[2020-03-15 13:35] LABS: WBC 43.5 k/uL (3.8-10.6)
[2020-03-15 13:36] LABS: Lymphocytes # (M) 0.44 k/uL (1.0-4.8); Monocytes # (M) 2.18 k/uL (0-1.0); Neutrophils # (M) 40.89 k/uL (1.3-7.7); Neutrophils % (M) 94 %; Nucleated Red Blood Cells 0 /100 WBC (0-0); Total Cells Counted 100
[2020-03-15 13:37] LABS: Toxic Granulation Present
--- NOTE | 2020-03-15 14:34 | P.PN ---
Subjective Progress Note Date: 03/15/20 CHIEF COMPLAINT: Fall with Trauma HISTORY OF PRESENT ILLNESS: Patient seen with Dr. Ivy. This is a 69-year-old male who fell 15 feet off the top of the ladder. Patient's CAT scan was performed showing a large left pneumothorax as well as multiple rib fractures and hemoperitoneum and a ruptured spleen. Patient is status post splenectomy. Patient is status post tracheostomy placement due to his res piratory failure and unable to wean from vent. Patient remains in ICU and on vent. He was getting dialysis daily through last week. He is scheduled for permacath placement. Abdominal x-rays showing an ileus. He has NG tube in place. He did have liquidy bowel movements today. Tube feedings are currently on hold. White count was up to 32.8. He is having fevers 101.8 yesterday. PHYSICAL EXAM: VITAL SIGNS: Reviewed. GENERAL: Well-developed in no acute distress. HEENT: No sclera icterus. Extraocular movements grossly intact. Moist buccal mucosa. Head is atraumatic, normocephalic. Trach site clean dry and intact ABDOMEN: Distended NEUROLOGIC: Patient is sedated ASSESSMENT: 1. 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 2. Status post tracheostomy for respiratory failure 3. Status post fall off a ladder with, to chest and abdomen 4. Left-sided pneumothorax has chest tube in place 5. Multiple left-sided rib fractures 6. Alcohol intoxication 7. Acute hypoxic ventilatory dependent respiratory failure. 8. Chronic pain medication 9. Atrial fibrillation with rapid ventricular response. Patient now on Eliquis 10. C. diff colitis 11. Acute kidney injury . Followed closely by nephrology. 12. Acute blood loss anemia status post blood transfusion 13. Ileus PLAN: -No plans for PEG tube placement for now due to patient's ileus -Continue NG tube for decompression -Consult dietitian for TPN -Tube feedings on hold -Continue ICU management -Continue oral vancomycin -Hemodialysis per nephrology -lovenox for DVT prophylaxis Physician Naprapath note has been reviewed by physician. Signing provider agrees with the documented findings, assessment, and plan of care. Objective - Vital Signs Vital signs: Vital Signs Temp 97.7 F 03/15/20 13:15 Pulse 100 03/15/20 13:15 Resp 20 03/15/20 13:15 BP 138/80 03/15/20 13:15 Pulse Ox 98 03/15/20 13:00 Intake & Output 03/14/20 03/15/20 03/15/20 18:59 06:59 18:59 Intake Total 446.813 557.217 326.698 Output Total 726 773 5827 Balance 221.813 262.217 -3263.302 Weight 88.5 kg 85.5 kg Intake: IV 240 240 120 Sodium Chloride 0.9% 1, 240 240 120 000 ml @ 20 mls/hr IV . Q24H [facility] Rx#:[id number] Intake, IV Titration 176.813 317.217 206.698 Amount Dexmedetomidine/0.9% NaCl 65.896 25.740 (Pmx) 400 mcg In Empty Bag 1 bag @ Titrate IV . Q0M [facility] Rx#:[id number] Diltiazem 125 mg In 110.917 29.084 Sodium Chloride 0.9% 100 ml @ 5 MG/HR 5 mls/hr IV .Q24H [facility] Rx#:[id number] Norepinephrine 32 mg In 10.525 34.624 Sodium Chloride 0.9% 218 ml @ 0.14 MCG/KG/MIN 6. 759 mls/hr IV .Q24H [facility] Rx#:[id number] propofoL 1,000 mg In 251.868 172.074 Empty Bag 1 bag @ Titrate IV .Q0M [facility] Rx#: [id number] Tube Feeding 0 Other 30 Output: Gastric Drainage 100 Urine 225 195 90 Hemodialysis 3500 Other: Voiding Method Indwelling Catheter Indwelling Catheter Indwelling Catheter # Bowel Movements 1 ABP, PAP, CO, CI - Last Documented Arterial Blood Pressure 129/50 - Labs CBC & Chem 7: 03/15/20 11:20 03/15/20 05:50 Labs: Abnormal Lab Results - Last 24 Hours (Table) 03/14/20 03/14/20 03/14/20 Range/Units 18:05 20:26 21:19 WBC 32.2 H (3.8-10.6) k/uL RBC 2.98 L (4.30-5.90) m/uL Hgb 8.1 L (13.0-17.5) gm/dL Hct 28.0 L (39.0-53.0) % MCHC 29.1 L (31.0-37.0) g/dL RDW 17.7 H (11.5-15.5) % Plt Count (150-450) k/uL Neutrophils # 30.3 H (1.3-7.7) k/uL Neutrophils # (Manual) (1.3-7.7) k/uL Lymphocytes # 0.7 L (1.0-4.8) k/uL Lymphocytes # (Manual) (1.0-4.8) k/uL Monocytes # (Manual) (0-1.0) k/uL ABG pO2 61 L (83-108) mmHg ABG Total CO2 25 H (19-24) mmol/L ABG O2 Saturation 89.6 L (94-97) % BUN (9-20) mg/dL Creatinine (0.66-1.25) mg/dL Glucose (74-99) mg/dL POC Glucose (mg/dL) 192 H (75-99) mg/dL Calcium (8.4-10.2) mg/dL Alkaline Phosphatase (38-126) U/L Total Protein (6.3-8.2) g/dL Albumin (3.5-5.0) g/dL 03/14/20 03/14/20 03/15/20 Range/Units 21:19 23:25 04:52 WBC (3.8-10.6) k/uL RBC (4.30-5.90) m/uL Hgb (13.0-17.5) gm/dL Hct (39.0-53.0) % MCHC (31.0-37.0) g/dL RDW (11.5-15.5) % Plt Count (150-450) k/uL Neutrophils # (1.3-7.7) k/uL Neutrophils # (Manual) (1.3-7.7) k/uL Lymphocytes # (1.0-4.8) k/uL Lymphocytes # (Manual) (1.0-4.8) k/uL Monocytes # (Manual) (0-1.0) k/uL ABG pO2 385 H (83-108) mmHg ABG Total CO2 25 H (19-24) mmol/L ABG O2 Saturation 100.0 H (94-97) % BUN 78 H (9-20) mg/dL Creatinine 3.56 H (0.66-1.25) mg/dL Glucose 172 H (74-99) mg/dL POC Glucose (mg/dL) 172 H (75-99) mg/dL Calcium 8.0 L (8.4-10.2) mg/dL Alkaline Phosphatase 206 H (38-126) U/L Total Protein 5.1 L (6.3-8.2) g/dL Albumin 2.5 L (3.5-5.0) g/dL 03/15/20 03/15/20 03/15/20 Range/Units 05:50 05:50 05:52 WBC 32.8 H (3.8-10.6) k/uL RBC 2.92 L (4.30-5.90) m/uL Hgb 8.0 L (13.0-17.5) gm/dL Hct 27.8 L (39.0-53.0) % MCHC 28.8 L (31.0-37.0) g/dL RDW 18.1 H (11.5-15.5) % Plt Count 457 H (150-450) k/uL Neutrophils # 30.6 H (1.3-7.7) k/uL Neutrophils # (Manual) (1.3-7.7) k/uL Lymphocytes # (1.0-4.8) k/uL Lymphocytes # (Manual) (1.0-4.8) k/uL Monocytes # (Manual) (0-1.0) k/uL ABG pO2 (83-108) mmHg ABG Total CO2 (19-24) mmol/L ABG O2 Saturation (94-97) % BUN 88 H (9-20) mg/dL Creatinine 3.70 H (0.66-1.25) mg/dL Glucose 166 H (74-99) mg/dL POC Glucose (mg/dL) 173 H (75-99) mg/dL Calcium 7.8 L (8.4-10.2) mg/dL Alkaline Phosphatase (38-126) U/L Total Protein (6.3-8.2) g/dL Albumin (3.5-5.0) g/dL 03/15/20 03/15/20 03/15/20 Range/Units 11:20 11:36 12:39 WBC 43.5 H (3.8-10.6) k/uL RBC 3.62 L (4.30-5.90) m/uL Hgb 9.9 L D (13.0-17.5) gm/dL Hct 33.8 L (39.0-53.0) % MCHC 29.2 L (31.0-37.0) g/dL RDW 17.6 H (11.5-15.5) % Plt Count (150-450) k/uL Neutrophils # (1.3-7.7) k/uL Neutrophils # (Manual) 40.89 H (1.3-7.7) k/uL Lymphocytes # (1.0-4.8) k/uL Lymphocytes # (Manual) 0.44 L (1.0-4.8) k/uL Monocytes # (Manual) 2.18 H (0-1.0) k/uL ABG pO2 (83-108) mmHg ABG Total CO2 (19-24) mmol/L ABG O2 Saturation (94-97) % BUN (9-20) mg/dL Creatinine (0.66-1.25) mg/dL Glucose (74-99) mg/dL POC Glucose (mg/dL) 130 H 153 H (75-99) mg/dL Calcium (8.4-10.2) mg/dL Alkaline Phosphatase (38-126) U/L Total Protein (6.3-8.2) g/dL Albumin (3.5-5.0) g/dL Microbiology - Last 24 Hours (Table) 03/12/20 09:30 Gram Stain - Preliminary Neck Wound Culture - Preliminary Escherichia coli Yeast species 03/12/20 17:22 Gram Stain - Final Sputum Sputum Culture - Final Selina albicans Selina sp,not albicans/galbr 02/29/20 11:00 Fungal Culture - Preliminary Bronchial Washings - Right 03/02/20 08:30 Fungal Culture - Preliminary Cerebral Spinal Fluid 03/11/20 17:55 Blood Culture - Preliminary Blood No Growth after 72 hours
[2020-03-15] MEDS: metroNIDAZOLE-NS PMX 500 MG in SALINE 1 100ML.BAG IVPB SCH ×2 (15:37→23:20)
--- NOTE | 2020-03-15 15:57 | PN ---
PROGRESS NOTE DATE OF SERVICE: 03/15/2020 REASON FOR FOLLOWUP: 1. C. difficile colitis. 2. Possible aspiration. INTERVAL HISTORY: The patient is currently afebrile. The patient is hemodynamically stable, not on any pressor support. The patient noticed to have significant worsening of his white count which is up to 43,000 daily. He did have some diarrhea. No further vomiting has been noticed by the nursing staff. No other change daily. PHYSICAL EXAMINATION: Blood pressure is 130/65 with a pulse of 84, temperature 97.7. He is 98% on 45% FiO2. General description is an elderly male, lying in bed in no distress. RESPIRATORY SYSTEM: Unlabored breathing is clear to auscultation. HEART: S1, S2. Regular rate and rhythm. ABDOMEN: Soft, no tenderness. LABS: White count down to 43.5. DIAGNOSTIC IMPRESSION AND PLAN: 1. Patient with C difficile colitis, now with significant worsening of his white count. The patient has not been able to get his oral vancomycin because of problem with vomiting and ileus. General Surgery has to reevaluate the patient. We will restart his IV Flagyl. In the meantime, the patient can be started back on his oral vancomycin. 2. Patient with oropharyngeal candidiasis covered with the Eraxis to continue. Will monitor his clinical course closely. at the bedside, questions were answered. MMODL / IJN: [id number] /
[2020-03-15] MEDS: AMIODARONE 300 MG in DEXTROSE 5% IN WATER 250 ML IV SCH ×2 (17:44)
[2020-03-15 18:02] LABS: Glucose,Whole Blood 173 mg/dL (75-99)
[2020-03-15] MEDS ORDERED: NA PHOS,M-B/NA PHOS,DI-BA 133 ML ENEMA RECTAL PRN (19:27)
[2020-03-15] MEDS: FINASTERIDE 5 MG TAB PO SCH (21:42)
[2020-03-15] MEDS: TAMSULOSIN 0.4 MG CAP.ER.24H PO SCH (21:42)
[2020-03-15] MEDS: QUEtiapine 100 MG TAB PO SCH (21:42)
[2020-03-15] MEDS: DAPTOmycin 500 MG in SODIUM CHLORIDE 0.9% 50 ML IVPB SCH (22:50)
[2020-03-15 23:24] LABS: Glucose,Whole Blood 170 mg/dL (75-99)
[2020-03-16] MEDS: INSULIN ASPART (NovoLOG) 100 UNIT/ML VIAL SQ SCH ×5 (00:24→23:43)
[2020-03-16 00:33] LABS: Glucose,Whole Blood 167 mg/dL (75-99)
[2020-03-16] MEDS: MEROPENEM 1 GM in SODIUM CHLORIDE 0.9% 100 ML IVPB SCH ×2 (01:16→12:01)
[2020-03-16] MEDS: MORPHINE ORAL SOLN 10 MG/5 ML CUP PO SCH ×4 (01:17→23:44)
[2020-03-16] MEDS: VANCOMYCIN ORAL SOLUTION 250 MG/5 ML BOTTLE PO SCH ×5 (01:18→23:47)
[2020-03-16] MEDS: IPRATROPIUM-ALBUTEROL 3 ML NEB INHALATION SCH ×7 (01:22→23:51)
[2020-03-16] MEDS: AMIODARONE 300 MG in DEXTROSE 5% IN WATER 250 ML IV SCH ×8 (04:34→23:45)
[2020-03-16 06:05] LABS: Glucose,Whole Blood 158 mg/dL (75-99)
[2020-03-16 06:36] LABS: Glucose,Whole Blood 158 mg/dL (75-99)
[2020-03-16] MEDS: CALCIUM ACETATE 667 MG TAB PO SCH ×3 (06:57→17:23)
[2020-03-16 07:22] LABS: Anisocytosis Slight; Basophils % (A) 0 %; Eosinophils % (A) 0 %; HCT 26.4 % (39.0-53.0); Hypochromasia Marked; Lymphocytes # (A) 1.1 k/uL (1.0-4.8); Lymphocytes % (A) 3 %; MCH 27.3 pg (25.0-35.0); MCV 94.3 fL (80.0-100.0); Macrocytosis Slight; Mean Platelet Volume 9.2; Monocytes % (A) 6 %; Neutrophils # (A) 29.8 k/uL (1.3-7.7); Neutrophils % (A) 90 %; Platelet Count 438 k/uL (150-450); Poikilocytosis Slight; RDW 17.9 % (11.5-15.5); WBC 33.3 k/uL (3.8-10.6)
[2020-03-16 07:25] LABS: Calcium 7.6 mg/dL (8.4-10.2); Potassium 3.6 mmol/L (3.5-5.1)
[2020-03-16 07:27] LABS: INR 1.1 (<1.2); Prothrombin Time 11.5 sec (9.0-12.0)
--- NOTE | 2020-03-16 07:42 | P.PN ---
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 We involved in the care of the patient because of p aroxysmal atrial fibrillation. The patient was seen today March [id number]. He continues to be intubated on mechanical ventilation. He is off norepinephrine. He is on heparin for anticoagulation. He has been maintaining normal sinus mechanism. He has been also requiring dialysis every day. Beside that he isn't on amiodarone IV. We'll continue the amiodarone IV and heparin IV at this point. Objective - Vital Signs Vital signs: Vital Signs Temp 98.5 F 03/16/20 04:00 Pulse 71 03/16/20 07:21 Resp 23 03/16/20 06:30 BP 125/61 03/16/20 06:30 Pulse Ox 96 03/16/20 06:30 Intake & Output 03/15/20 03/16/20 03/16/20 18:59 06:59 18:59 Intake Total 507.377 548.132 Output Total 3635 300 Balance -3127.623 248.132 Weight 80.9 kg Intake: IV 220 20 Sodium Chloride 0.9% 1, 220 20 000 ml @ 20 mls/hr IV . Q24H [facility] Rx#:[id number] Intake, IV Titration 287.377 528.132 Amount Amiodarone 300 mg In 250 Dextrose 5% in Water 250 ml @ 0.5 MG/MIN 25 mls/hr IV .Q10H [facility] Rx#: [id number] Norepinephrine 32 mg In 45.278 14.007 Sodium Chloride 0.9% 218 ml @ 0.14 MCG/KG/MIN 6. 759 mls/hr IV .Q24H [facility] Rx#:[id number] propofoL 1,000 mg In 242.099 264.125 Empty Bag 1 bag @ Titrate IV .Q0M [facility] Rx#: [id number] Output: Gastric Drainage 100 Urine 135 200 Hemodialysis 3500 Other: Voiding Method Indwelling Catheter Indwelling Catheter ABP, PAP, CO, CI - Last Documented Arterial Blood Pressure 129/50 - Constitutional General appearance: Present: no acute distress - Respiratory Respiratory: bilateral: diminished - Cardiovascular Rhythm: regular Heart sounds: normal: S1, S2 - Labs CBC & Chem 7: 03/15/20 11:20 03/16/20 06:24 Labs: Abnormal Lab Results - Last 24 Hours (Table) 03/15/20 03/15/20 03/15/20 Range/Units 11:20 11:36 12:39 WBC 43.5 H (3.8-10.6) k/uL RBC 3.62 L (4.30-5.90) m/uL Hgb 9.9 L D (13.0-17.5) gm/dL Hct 33.8 L (39.0-53.0) % MCHC 29.2 L (31.0-37.0) g/dL RDW 17.6 H (11.5-15.5) % Neutrophils # (Manual) 40.89 H (1.3-7.7) k/uL Lymphocytes # (Manual) 0.44 L (1.0-4.8) k/uL Monocytes # (Manual) 2.18 H (0-1.0) k/uL APTT (22.0-30.0) sec BUN (9-20) mg/dL Creatinine (0.66-1.25) mg/dL Glucose (74-99) mg/dL POC Glucose (mg/dL) 130 H 153 H (75-99) mg/dL Calcium (8.4-10.2) mg/dL 03/15/20 03/15/20 03/15/20 Range/Units 18:00 18:30 23:22 WBC (3.8-10.6) k/uL RBC (4.30-5.90) m/uL Hgb (13.0-17.5) gm/dL Hct (39.0-53.0) % MCHC (31.0-37.0) g/dL RDW (11.5-15.5) % Neutrophils # (Manual) (1.3-7.7) k/uL Lymphocytes # (Manual) (1.0-4.8) k/uL Monocytes # (Manual) (0-1.0) k/uL APTT 55.8 H (22.0-30.0) sec BUN (9-20) mg/dL Creatinine (0.66-1.25) mg/dL Glucose (74-99) mg/dL POC Glucose (mg/dL) 173 H 170 H (75-99) mg/dL Calcium (8.4-10.2) mg/dL 03/16/20 03/16/20 03/16/20 Range/Units 00:20 06:04 06:24 WBC (3.8-10.6) k/uL RBC (4.30-5.90) m/uL Hgb (13.0-17.5) gm/dL Hct (39.0-53.0) % MCHC (31.0-37.0) g/dL RDW (11.5-15.5) % Neutrophils # (Manual) (1.3-7.7) k/uL Lymphocytes # (Manual) (1.0-4.8) k/uL Monocytes # (Manual) (0-1.0) k/uL APTT (22.0-30.0) sec BUN 76 H (9-20) mg/dL Creatinine 2.66 H (0.66-1.25) mg/dL Glucose 148 H (74-99) mg/dL POC Glucose (mg/dL) 167 H 158 H (75-99) mg/dL Calcium 7.6 L (8.4-10.2) mg/dL 03/16/20 Range/Units 06:35 WBC (3.8-10.6) k/uL RBC (4.30-5.90) m/uL Hgb (13.0-17.5) gm/dL Hct (39.0-53.0) % MCHC (31.0-37.0) g/dL RDW (11.5-15.5) % Neutrophils # (Manual) (1.3-7.7) k/uL Lymphocytes # (Manual) (1.0-4.8) k/uL Monocytes # (Manual) (0-1.0) k/uL APTT (22.0-30.0) sec BUN (9-20) mg/dL Creatinine (0.66-1.25) mg/dL Glucose (74-99) mg/dL POC Glucose (mg/dL) 158 H (75-99) mg/dL Calcium (8.4-10.2) mg/dL Microbiology - Last 24 Hours (Table) 03/02/20 08:30 Acid Fast Bacilli Smear - Final Cerebral Spinal Fluid Acid Fast Bacilli Culture - Preliminary 03/11/20 17:55 Blood Culture - Preliminary Blood No Growth after 96 hours 03/12/20 09:30 Anaerobic Culture - Preliminary Neck 03/12/20 09:30 Gram Stain - Preliminary Neck Wound Culture - Preliminary Escherichia coli Yeast species 03/12/20 17:22 Gram Stain - Final Sputum Sputum Culture - Final Selina albicans Selina sp,not albicans/galbr 02/29/20 11:00 Fungal Culture - Preliminary Bronchial Washings - Right 03/02/20 08:30 Fungal Culture - Preliminary Cerebral Spinal Fluid Assessment and Plan Assessment: Assessment #1 status post fall with rib fracture #2 status post splenectomy #3 paroxysmal atrial fibrillation #4 multiple comorbid conditions Plan #1 continue heparin IV #2 continue amiodarone IV #3 follow-up with the patient
[2020-03-16 07:43] LABS: HGB 7.7 gm/dL (13.0-17.5)
[2020-03-16 08:07] LABS: ABG Base Excess -1.9 mmol/L; ABG HCO3 22 mmol/L (21-25); ABG Oxygen Saturation 99.2 % (94-97); ABG PCO2 33 mmHg (35-45); ABG PH 7.44 (7.35-7.45); ABG PO2 133 mmHg (83-108); ABG TCO2 23 mmol/L (19-24); Allen Test Performed? Yes
[2020-03-16 08:15] LABS: Polychromasia Present; Target Cells Present
[2020-03-16] MEDS: LACTATED RINGERS 1,000 ML IV SCH (08:16)
[2020-03-16] MEDS: NOREPINEPHRINE 32 MG in SODIUM CHLORIDE 0.9% 218 ML IV SCH (08:17)
[2020-03-16] MEDS: HEPARIN SOD,PORK IN 0.45% NACL 25,000 UNIT in 0.45% NACL 1 250ML.BAG IV SCH (08:22)
[2020-03-16] MEDS: metroNIDAZOLE-NS PMX 500 MG in SALINE 1 100ML.BAG IVPB SCH ×3 (08:25→23:44)
[2020-03-16] MEDS: THIAMINE 100 MG TAB PO SCH (08:37)
[2020-03-16] MEDS ORDERED: FUROSEMIDE 10 MG/ML 10 ML VIAL IV STA (08:51)
[2020-03-16] MEDS: CHLORHEXIDINE GLUCONATE 15 ML CUP MUCOUS MEM SCH ×2 (08:54→21:32)
[2020-03-16] MEDS: ANIDULAFUNGIN 100 MG in SODIUM CHLORIDE 0.9% 100 ML IVPB SCH (08:54)
[2020-03-16] MEDS: HYDROPHILIC CREAM 180 GM TUBE TOPICAL SCH (08:55)
[2020-03-16] MEDS: PANTOPRAZOLE 40 MG/10 ML VIAL IVP SCH (08:55)
[2020-03-16] MEDS: SODIUM CHLORIDE 0.9% 1,000 ML IV SCH (09:15)
--- NOTE | 2020-03-16 09:34 | P.PN ---
Subjective patient is seen in follow-up for acute kidney injury, currently hemodialysis dependent. Off Levophed. Has a tracheostomy. On 45% FiO2. Urine output 10-40 mL an hour. Has an NG tube for possible bowel obstruction. Vital signs are stable. off Levophed. General: The patient appeared well nourished and normally developed. HEENT: Head exam is unremarkable. Neck is without jugular venous distension. NG tube noted. tracheostomy. LUNGS: Breath sounds decreased. HEART: Rate and Rhythm are regular. ABDOMEN: soft, nondistended. EXTREMITITES: 1+ edema. Objective - Vital Signs Vital signs: Vital Signs Temp 98.5 F 03/16/20 08:00 Pulse 74 03/16/20 08:30 Resp 23 03/16/20 08:30 BP 138/68 03/16/20 08:30 Pulse Ox 97 03/16/20 08:30 Intake & Output 03/15/20 03/16/20 03/16/20 18:59 06:59 18:59 Intake Total 507.377 552.141 354.711 Output Total 3635 300 50 Balance -3127.623 252.141 304.711 Weight 80.9 kg Intake: IV 220 20 20 Sodium Chloride 0.9% 1, 220 20 20 000 ml @ 20 mls/hr IV . Q24H [facility] Rx#:[id number] Intake, IV Titration 287.377 532.141 334.711 Amount Amiodarone 300 mg In 250 Dextrose 5% in Water 250 ml @ 0.5 MG/MIN 25 mls/hr IV .Q10H [facility] Rx#: [id number] Heparin Sod,Pork in 0.45% 206.667 NaCl 25,000 unit In 0.45 % NaCl 1 250ml.bag @ 11. 696 UNITS/KG/HR 10 mls/hr IV .Q24H [facility] Rx#: [id number] Norepinephrine 32 mg In 45.278 18.016 Sodium Chloride 0.9% 218 ml @ 0.14 MCG/KG/MIN 6. 759 mls/hr IV .Q24H [facility] Rx#:[id number] metroNIDAZOLE-NS PMX 500 100 mg In Saline 1 100ml.bag @ 100 mls/hr IVPB Q8HR [facility] Rx#:[id number] propofoL 1,000 mg In 242.099 264.125 28.044 Empty Bag 1 bag @ Titrate IV .Q0M [facility] Rx#: [id number] Output: Gastric Drainage 100 Urine 135 200 50 Hemodialysis 3500 Other: Voiding Method Indwelling Catheter Indwelling Catheter ABP, PAP, CO, CI - Last Documented Arterial Blood Pressure 129/50 - Labs CBC & Chem 7: 03/16/20 06:24 03/16/20 06:24 Labs: Abnormal Lab Results - Last 24 Hours (Table) 03/15/20 03/15/20 03/15/20 Range/Units 11:20 11:36 12:39 WBC 43.5 H (3.8-10.6) k/uL RBC 3.62 L (4.30-5.90) m/uL Hgb 9.9 L D (13.0-17.5) gm/dL Hct 33.8 L (39.0-53.0) % MCHC 29.2 L (31.0-37.0) g/dL RDW 17.6 H (11.5-15.5) % Neutrophils # (1.3-7.7) k/uL Neutrophils # (Manual) 40.89 H (1.3-7.7) k/uL Lymphocytes # (Manual) 0.44 L (1.0-4.8) k/uL Monocytes # (0-1.0) k/uL Monocytes # (Manual) 2.18 H (0-1.0) k/uL APTT (22.0-30.0) sec ABG pCO2 (35-45) mmHg ABG pO2 (83-108) mmHg ABG O2 Saturation (94-97) % BUN (9-20) mg/dL Creatinine (0.66-1.25) mg/dL Glucose (74-99) mg/dL POC Glucose (mg/dL) 130 H 153 H (75-99) mg/dL Calcium (8.4-10.2) mg/dL 03/15/20 03/15/20 03/15/20 Range/Units 18:00 18:30 23:22 WBC (3.8-10.6) k/uL RBC (4.30-5.90) m/uL Hgb (13.0-17.5) gm/dL Hct (39.0-53.0) % MCHC (31.0-37.0) g/dL RDW (11.5-15.5) % Neutrophils # (1.3-7.7) k/uL Neutrophils # (Manual) (1.3-7.7) k/uL Lymphocytes # (Manual) (1.0-4.8) k/uL Monocytes # (0-1.0) k/uL Monocytes # (Manual) (0-1.0) k/uL APTT 55.8 H (22.0-30.0) sec ABG pCO2 (35-45) mmHg ABG pO2 (83-108) mmHg ABG O2 Saturation (94-97) % BUN (9-20) mg/dL Creatinine (0.66-1.25) mg/dL Glucose (74-99) mg/dL POC Glucose (mg/dL) 173 H 170 H (75-99) mg/dL Calcium (8.4-10.2) mg/dL 03/16/20 03/16/20 03/16/20 Range/Units 00:20 06:04 06:24 WBC 33.3 H (3.8-10.6) k/uL RBC 2.80 L (4.30-5.90) m/uL Hgb 7.7 L D (13.0-17.5) gm/dL Hct 26.4 L (39.0-53.0) % MCHC 29.0 L (31.0-37.0) g/dL RDW 17.9 H (11.5-15.5) % Neutrophils # 29.8 H (1.3-7.7) k/uL Neutrophils # (Manual) (1.3-7.7) k/uL Lymphocytes # (Manual) (1.0-4.8) k/uL Monocytes # 2.0 H (0-1.0) k/uL Monocytes # (Manual) (0-1.0) k/uL APTT (22.0-30.0) sec ABG pCO2 (35-45) mmHg ABG pO2 (83-108) mmHg ABG O2 Saturation (94-97) % BUN (9-20) mg/dL Creatinine (0.66-1.25) mg/dL Glucose (74-99) mg/dL POC Glucose (mg/dL) 167 H 158 H (75-99) mg/dL Calcium (8.4-10.2) mg/dL 03/16/20 03/16/20 03/16/20 Range/Units 06:24 06:35 08:05 WBC (3.8-10.6) k/uL RBC (4.30-5.90) m/uL Hgb (13.0-17.5) gm/dL Hct (39.0-53.0) % MCHC (31.0-37.0) g/dL RDW (11.5-15.5) % Neutrophils # (1.3-7.7) k/uL Neutrophils # (Manual) (1.3-7.7) k/uL Lymphocytes # (Manual) (1.0-4.8) k/uL Monocytes # (0-1.0) k/uL Monocytes # (Manual) (0-1.0) k/uL APTT (22.0-30.0) sec ABG pCO2 33 L (35-45) mmHg ABG pO2 133 H (83-108) mmHg ABG O2 Saturation 99.2 H (94-97) % BUN 76 H (9-20) mg/dL Creatinine 2.66 H (0.66-1.25) mg/dL Glucose 148 H (74-99) mg/dL POC Glucose (mg/dL) 158 H (75-99) mg/dL Calcium 7.6 L (8.4-10.2) mg/dL Microbiology - Last 24 Hours (Table) 03/02/20 08:30 Acid Fast Bacilli Smear - Final Cerebral Spinal Fluid Acid Fast Bacilli Culture - Preliminary 03/11/20 17:55 Blood Culture - Preliminary Blood No Growth after 96 hours 03/12/20 09:30 Anaerobic Culture - Preliminary Neck 03/12/20 09:30 Gram Stain - Preliminary Neck Wound Culture - Preliminary Escherichia coli Yeast species 03/12/20 17:22 Gram Stain - Final Sputum Sputum Culture - Final Selina albicans Selina sp,not albicans/galbr 02/29/20 11:00 Fungal Culture - Preliminary Bronchial Washings - Right 03/02/20 08:30 Fungal Culture - Preliminary Cerebral Spinal Fluid Assessment and Plan Plan: assessment: 1. Acute kidney injury secondary to ATN secondary to infection and hemodynamic instability. started on hemodialysis March 04 due to oliguria and hy perkalemia. Baseline creatinine near 1. UA fairly benign. 2. Hypervolemic hyponatremia. improved with ultrafiltration. 3. A. fib with RVR maintained on amiodarone and heparin. 4. Status post fall with pneumothorax, multiple rib fractures, hemoperitoneum and ruptured spleen status post emergent chest tube placement and splenectomy. 5. acute blood loss anemia status post blood transfusions this admission. improved post blood transfusion. Also on Aranesp. 6. Metabolic acidosis secondary to acute kidney injury. stable. 7. 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 8. Hyperkalemia secondary to acute kidney injury and metabolic acidosis. ?GI bleed. improved postdialysis. 9. Third-degree heart block. Cardiology following. 10. Hyperphosphatemia secondary to acute kidney injury maintained on PhosLo. Better. 11. Volume overload. significantly improved with ultrafiltration. Plan: Hemodialysis tomorrow. Scheduled for permacath placement today. Groin catheter to be removed. Wean FiO2. Continue to monitor renal function and urine output.
--- NOTE | 2020-03-16 10:57 | XR ---
EXAMINATION TYPE: XR chest 1V portable DATE OF EXAM: 03/16/2020 COMPARISON: 03/15/2020 HISTORY: Intubation TECHNIQUE: Single frontal view of the chest is obtained. FINDINGS: Tracheostomy tube seen with the tip approximate 6.2 cm above rony. NG tube is seen exten ding to the level of the left hemidiaphragm. Left basilar consolidation and small effusion. Chronic r ib deformities suggest previous trauma. There may be a recent rib fractures involving the posterior r ib cage on the left. Coarsened interstitium. No sizable pneumothorax. Sternotomy wires are seen and t he heart size is stable. Postsurgical change overlying the cervical spine. PICC line stable in positi on. 5 mm nodule in the right midlung most likely in the basis of a granuloma IMPRESSION: 1. Multiple left-sided rib fractures with lower lobe consolidation and small effusion. 2. NG tube remains at the level of the left hemidiaphragm. Could be in the region of the gastric fund us or within a hiatal hernia otherwise consider positioning assessment 3. Coarsened interstitium can be seen with mild congestion or interstitial pneumonitis.
[2020-03-16 11:30] LABS: Glucose,Whole Blood 132 mg/dL (75-99)
--- NOTE | 2020-03-16 12:06 | XR ---
EXAMINATION TYPE: XR abdomen 1V DATE OF EXAM: 03/16/2020 COMPARISON: 03/14/2020 HISTORY: Ileus TECHNIQUE: One view abdominal series FINDINGS: Surgical ramonita are noted and there remains contrast throughout the right colon extending to the tra nsverse colon. A femoral line is seen. NG tube seen. The right colon remains markedly distended. Post operative changes noted. IMPRESSION: 1. Nonspecific abdomen with persistent distention of bowel loops greatest in the right hemiabdomen es sentially unchanged from prior exam. Differential includes ileus versus partial obstruction.
--- NOTE | 2020-03-16 12:46 | P.PN ---
Subjective Progress Note Date: 03/16/20 Principal diagnosis: Status post fall off ladder and significant trauma to chest and abdomen. This is a 69-year-old male patient who was working on his gutters when he fell off a 15 foot ladder. This was unwitnessed. He end up calling his who in turn called EMS and the patient was brought in to the emergency department. Upon arrival, the patient was hypotensive and he was in shock. The patient initial chest x-ray showed several left-sided fractures and small amount of subcutaneous air in addition to a left-sided pneumothorax. The x-ray of the pelvis showed no evidence of any fracture or dislocation. The CAT scan of the brain showed age-related atrophy and chronic small vessel ischemic changes without any acute intracranial process. CAT scan of cervical spine showed no acute abnormalities. On and has Been of the cervical spine was done and the bone and soft tissue windows showed no acute abnormalities. There was no evidence of any fracture. Along with multiple left-sided rib fractures third extending to the seventh rib. There was also spending the sedation with estimated grade 3 injury the patient. The patient's hemoglobin dropped to 10.5. The patient received a total of 2 L of IV fluid and 40 minutes of packed RBC. Morning hemoglobin today is At 13.4. The patient was taken to the operating room yesterday. The patient underwent a left-sided chest tube insertion. The patient also had splenectomy done and following that the patient was kept intubated on a mechanical ventilator and he was transferred to the intensive care unit. Note that the patient takes morphine outpatient basis and he has chronic pain and chronic narcotic requirements and on outpatient basis he takes morphine sulfate in the form of MS Contin 50 mg every 12 hours. Overnight, the patient was intubated on mechanical ventilator. He was sedated with a combination of propofol and he was also placed on morphine drip after being given several boluses control his pain. This morning, Profore is running at 70 mg per KG per minute. Morphine is running at 8 mg an hour. The patient is on normal saline at rate of 85 mL an hour. The patient has a left sided chest tube. Total amount of output is in order 110 mL of serosanguineous material without evidence of any air leak. The ventilator setting shows an assist- control mode rate of 20 with a tidal volume of 500 and FiO2 of 40% with a PEEP of 5. The patient's FiO2 is down to 40% overnight. The morning blood gases showed a pH of 7.4 with a pCO2 of 37 and pO2 of 121. The chest x-ray from this morning shows that the patient has an indwelling left-sided chest tube without any signs or pneumothorax. There is also a basilar pleural-based opacity along with multiple left-sided rib fractures and ET tube is in a good location. He is at approximately slightly swollen probably related to an infiltrated IV. He did not require any pressors. He remains hemodynamically stable. Lactic acid remains slightly elevated at 2.9 03/14/2020, the patient had a setback this morning. He had large volume emesis. He had several emesis and possibly aspirated. He became tachypneic and short of breath. He is awake however he became more restless and uncomfortable post aspiration. Based on that, I asked the nursing staff to utilize some Precedex if needed to control agitation. Meanwhile, the patient had his tube feeds held. Affect some of the abdomen was done that shows possible small bowel obstruction, partial and the patient has fecal stasis/infection the right lower quadrant area. The patient notes was taking treatment for C. diff colitis and he was on a combination of vancomycin and IV Flagyl. No diarrhea for now. Tube feeds on hold for now. He remains on a mechanical ventilator. His assist- control mode at the rate of 22 with a tidal volume of 500 and FiO2 of 40% with a PEEP of 5. The chest x-ray from today shows further clearing of the bilateral pulmonary infiltrates and this was done before the aspiration episode. No hemodialysis will be done today. His blood gases showed a pH of 7.5 with a pCO2 of 35 and pO2 of 92. Is still having episodic fever. The sputum around the tracheostomy tube was positive for gram-negative and I added the troponin. ID is on the case and the patient is taking a combination of daptomycin and Eraxis. He is on no Cardizem drip for now. Tube feeds are currently on hold. No other significant events otherwise for now. Noted the patient was showing significant amount of progress in terms of his neuro status. Abdominal wound is dry clean and intact. Bowel sounds are hypoactive for now. Patient was reevaluated today on 03/15/20, patient had a major setback last night, he developed extreme agitation, became asynchronous with the ventilator, and he developed high peak airway pressures on the ventilator. Patient required sedation again, and he is now on propofol drip at 30 mcg/kg/m. Patient also developed hypotension requiring norepinephrine presently at 0.02 mcg/kg/m. He is off Cardizem. His ventilator settings today are assist control rate of 22 tidal volume is 500 FiO2 50% and PEEP of 5. ABG this morning showed a pO2 of 385 pCO2 of 38 pH of 7.4. Hence his FiO2 was decreased down to 45%, and I kept him on volume control plus. Tidal volume at 500. Patient was admitted on 02/17/20, and has been in the hospital since. Yesterday the patient had 2 episodes of vomiting and he may have aspirated. His tube feeding is presently on hold. He developed some abdominal distention, and that being addressed by surgery on the case. . Recent cultures have been basically nondiagnostic. Develop leukocytosis and the repeat cultures are ordered. His ventilator settings were changed and his FiO2 was decreased down to 45%. Patient will undergo hemodialysis today. Still having episodes of fever. His most recent sputum cultures have shown Selina and gram-negative bacilli antibiotics stallworth, patient is on daptomycin, meropenem, and Eraxis. Reevaluated today on 03/16/20, patient remains in the ICU, remains on the same ventilatory settings assist control rate of 22 tidal volume is 500 FiO2 35% and PEEP of 5. ABG this morning showed a pO2 of 133 pCO2 of 33 pH of 7.44 patient is on amiodarone at 0.5 mg/m, IV fluid at KVO, is also on propofol which I will cut down as long as the patient is not agitated. He seems to be calm on this dose of propofol, and he seems to follow simple instructions but he generally weak. Continues to have enteral feeding on hold, and because of his ileus that he had yesterday, no plans for PEG tube soon. Although patient had some good bowel movements yesterday, and responded well to an emesis. Today the patient seems to be calm her, and again follow simple instructions, propofol remains at 40 mcg/kg/m. Chest x-ray today showed multiple left-sided rib fractures with left lower lobe consolidation and small effusion. Coarsened interstitium noted. Possibly interstitial pneumonitis. Abdominal films showed nonspecific abdomen with persistent distention of bowel loops greater in the right hemiabdomen essentially unchanged compared to yesterday. Differential diagnoses includes ileus or partial obstruction. Objective - Vital Signs Vital signs: Vital Signs Temp 98.4 F 03/16/20 12:00 Pulse 86 03/16/20 12:00 Resp 19 03/16/20 12:00 BP 119/75 03/16/20 12:00 Pulse Ox 97 03/16/20 12:00 Intake & Output 03/15/20 03/16/20 03/16/20 18:59 06:59 18:59 Intake Total 507.377 552.141 558.309 Output Total 3635 300 290 Balance -3127.623 252.141 268.309 Weight 80.9 kg 80.9 kg Intake: IV 220 20 100 Sodium Chloride 0.9% 1, 220 20 100 000 ml @ 20 mls/hr IV . Q24H [facility] Rx#:[id number] Intake, IV Titration 287.377 532.141 458.309 Amount Amiodarone 300 mg In 250 Dextrose 5% in Water 250 ml @ 0.5 MG/MIN 25 mls/hr IV .Q10H [facility] Rx#: [id number] Anidulafungin 100 mg In 100 Sodium Chloride 0.9% 100 ml @ 84 mls/hr IVPB DAILY [facility] Rx#:[id number] Heparin Sod,Pork in 0.45% 206.667 NaCl 25,000 unit In 0.45 % NaCl 1 250ml.bag @ 11. 696 UNITS/KG/HR 10 mls/hr IV .Q24H [facility] Rx#: [id number] Norepinephrine 32 mg In 45.278 18.016 Sodium Chloride 0.9% 218 ml @ 0.14 MCG/KG/MIN 6. 759 mls/hr IV .Q24H [facility] Rx#:[id number] metroNIDAZOLE-NS PMX 500 100 mg In Saline 1 100ml.bag @ 100 mls/hr IVPB Q8HR [facility] Rx#:[id number] propofoL 1,000 mg In 242.099 264.125 51.642 Empty Bag 1 bag @ Titrate IV .Q0M [facility] Rx#: [id number] Output: Gastric Drainage 100 Urine 135 200 290 Hemodialysis 3500 Other: Voiding Method Indwelling Catheter Indwelling Catheter Indwelling Catheter ABP, PAP, CO, CI - Last Documented Arterial Blood Pressure 129/50 - Exam Physical Exam: Revealed a 70-year-old white male, sedated, mechanically ventilated, sedated with propofol, however arousable and follows very simple instructions Head: Atraumatic, normocephalic, tracheostomy is intact, nasogastric tube is intact. HEENT:[Neck is supple.] [No neck masses.] [No thyromegaly.] [No JVD.] PERRLA, EOMI, no icterus. Chest: Symmetrical chest expansion, crackles and rhonchi bilaterally. Cardiac Exam: Distant S1 and S2, no S3 gallop. No murmur. Abdomen: [Soft, nontender, no megaly, no rebound, no guarding, normal bowel sounds.] Extremities: No clubbing, 2+ bipedal edema, no cyanosis.. Good pulses bilaterally. Neurological Exam: Pupils are equally reactive to light, patient seems to be generally weak. Psychiatric: Could not be assessed Musculoskeletal: No deformities. Generally weak. - Labs CBC & Chem 7: 03/16/20 06:24 03/16/20 06:24 Labs: Abnormal Lab Results - Last 24 Hours (Table) 03/15/20 03/15/20 03/15/20 Range/Units 11:20 18:00 18:30 WBC 43.5 H (3.8-10.6) k/uL RBC (4.30-5.90) m/uL Hgb (13.0-17.5) gm/dL Hct (39.0-53.0) % MCHC (31.0-37.0) g/dL RDW (11.5-15.5) % Neutrophils # (1.3-7.7) k/uL Neutrophils # (Manual) 40.89 H (1.3-7.7) k/uL Lymphocytes # (Manual) 0.44 L (1.0-4.8) k/uL Monocytes # (0-1.0) k/uL Monocytes # (Manual) 2.18 H (0-1.0) k/uL APTT 55.8 H (22.0-30.0) sec ABG pCO2 (35-45) mmHg ABG pO2 (83-108) mmHg ABG O2 Saturation (94-97) % BUN (9-20) mg/dL Creatinine (0.66-1.25) mg/dL Glucose (74-99) mg/dL POC Glucose (mg/dL) 173 H (75-99) mg/dL Calcium (8.4-10.2) mg/dL 03/15/20 03/16/20 03/16/20 Range/Units 23:22 00:20 06:04 WBC (3.8-10.6) k/uL RBC (4.30-5.90) m/uL Hgb (13.0-17.5) gm/dL Hct (39.0-53.0) % MCHC (31.0-37.0) g/dL RDW (11.5-15.5) % Neutrophils # (1.3-7.7) k/uL Neutrophils # (Manual) (1.3-7.7) k/uL Lymphocytes # (Manual) (1.0-4.8) k/uL Monocytes # (0-1.0) k/uL Monocytes # (Manual) (0-1.0) k/uL APTT (22.0-30.0) sec ABG pCO2 (35-45) mmHg ABG pO2 (83-108) mmHg ABG O2 Saturation (94-97) % BUN (9-20) mg/dL Creatinine (0.66-1.25) mg/dL Glucose (74-99) mg/dL POC Glucose (mg/dL) 170 H 167 H 158 H (75-99) mg/dL Calcium (8.4-10.2) mg/dL 03/16/20 03/16/20 03/16/20 Range/Units 06:24 06:24 06:35 WBC 33.3 H (3.8-10.6) k/uL RBC 2.80 L (4.30-5.90) m/uL Hgb 7.7 L D (13.0-17.5) gm/dL Hct 26.4 L (39.0-53.0) % MCHC 29.0 L (31.0-37.0) g/dL RDW 17.9 H (11.5-15.5) % Neutrophils # 29.8 H (1.3-7.7) k/uL Neutrophils # (Manual) (1.3-7.7) k/uL Lymphocytes # (Manual) (1.0-4.8) k/uL Monocytes # 2.0 H (0-1.0) k/uL Monocytes # (Manual) (0-1.0) k/uL APTT (22.0-30.0) sec ABG pCO2 (35-45) mmHg ABG pO2 (83-108) mmHg ABG O2 Saturation (94-97) % BUN 76 H (9-20) mg/dL Creatinine 2.66 H (0.66-1.25) mg/dL Glucose 148 H (74-99) mg/dL POC Glucose (mg/dL) 158 H (75-99) mg/dL Calcium 7.6 L (8.4-10.2) mg/dL 03/16/20 03/16/20 Range/Units 08:05 11:29 WBC (3.8-10.6) k/uL RBC (4.30-5.90) m/uL Hgb (13.0-17.5) gm/dL Hct (39.0-53.0) % MCHC (31.0-37.0) g/dL RDW (11.5-15.5) % Neutrophils # (1.3-7.7) k/uL Neutrophils # (Manual) (1.3-7.7) k/uL Lymphocytes # (Manual) (1.0-4.8) k/uL Monocytes # (0-1.0) k/uL Monocytes # (Manual) (0-1.0) k/uL APTT (22.0-30.0) sec ABG pCO2 33 L (35-45) mmHg ABG pO2 133 H (83-108) mmHg ABG O2 Saturation 99.2 H (94-97) % BUN (9-20) mg/dL Creatinine (0.66-1.25) mg/dL Glucose (74-99) mg/dL POC Glucose (mg/dL) 132 H (75-99) mg/dL Calcium (8.4-10.2) mg/dL Microbiology - Last 24 Hours (Table) 03/15/20 09:53 Blood Culture - Preliminary Blood No Growth after 24 hours 03/12/20 09:30 Gram Stain - Preliminary Neck Wound Culture - Preliminary Escherichia coli Yeast species Selina albicans 03/02/20 08:30 Acid Fast Bacilli Smear - Final Cerebral Spinal Fluid Acid Fast Bacilli Culture - Preliminary 03/11/20 17:55 Blood Culture - Preliminary Blood No Growth after 96 hours 03/12/20 09:30 Anaerobic Culture - Preliminary Neck 03/12/20 17:22 Gram Stain - Final Sputum Sputum Culture - Final Selina albicans Selina sp,not albicans/galbr 02/29/20 11:00 Fungal Culture - Preliminary Bronchial Washings - Right 03/02/20 08:30 Fungal Culture - Preliminary Cerebral Spinal Fluid Assessment and Plan Assessment: Impression: Status post fall off a ladder with trauma to chest and abdomen. 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 Traumatic left-sided rib fractures with 30% pneumothorax requiring chest tube placement. Has been removed already. Acute hemorrhagic shock on presentation. Acute blood loss anemia and patient received a total of 5 units of packed RBCs since admission. Acute hypoxic respiratory failure secondary to extreme agitation and delirium tremors requiring sedation, and detoxification, Chronic neck pain, patient is maintained chronically on MS Contin, remains on morphine drip. Coronary artery disease and previous CABG, echocardiogram is unremarkable. Dyslipidemia Paroxysmal atrial fibrillation , remains on amiodarone. Failure to wean, status post tracheostomy on 02/25/20. Toxic metabolic encephalopathy, acute. Status post PICC line placement postoperatively Status post bronchoscopy and lavage of the right upper lobe done on 02/29/20. Nondiagnostic. Episodes of fever, being investigated, patient is on daptomycin, Eraxis, and Merrem. C. difficile colitis, treated with oral vancomycin, resolved. Acute kidney injury, requiring hemodialysis. Suspect critical illness polyneuropathy. Ileus versus small bowel obstruction. Being addressed by surgery on the case. Recommendation: Continue ventilatory support, Continue hemodynamic support. Continue nutritional support presently tube feeds are on hold. Continue Fleet enema for fecal impaction. Responded well to that yesterday. Continue antibiotics and antifungal therapy as per infectious disease on the case. Continue hemodialysis for acute kidney injury. Continue to monitor mental status on a daily basis. And assess for weaning. Surgery to decide on PEG tube placement was his ileus resolved Decrease FiO2 to 35% Repeat blood cultures are pending. Daily assessment of mental status off sedation Overall prognosis remains poor and guarded. Critical care time is 33 minutes Time with Patient: Greater than 30
--- NOTE | 2020-03-16 14:55 | P.PN ---
Subjective Progress Note Date: 03/16/20 CHIEF COMPLAINT: Fall with Trauma HISTORY OF PRESENT ILLNESS: Patient seen with Dr. Ivy. This is a 69-year-old male who fell 15 feet off the top of the ladder. Patient's CAT scan was performed showing a large left pneumothorax as well as multiple rib fractures and hemoperitoneum and a ruptured spleen. Patient is status post splenectomy. Patient is status post tracheostomy placement due to his res piratory failure and unable to wean from vent. Patient remains in ICU and on vent. He is scheduled for permacath placement today. He is off the Levophed. He did have a bowel movement with the Fleet enema. He is afebrile. White count 33.3. Hemoglobin 7.7. Creatinine 2.66 Abdominal x-ray showing nonspecific abdomen with persistent distention of bowel loops greatest in the right guerita-abdomen essentially unchanged from prior exam. Differential includes ileus versus partial obstruction PHYSICAL EXAM: VITAL SIGNS: Reviewed. GENERAL: Well-developed in no acute distress. HEENT: No sclera icterus. Extraocular movements grossly intact. Moist buccal mucosa. Head is atraumatic, normocephalic. Trach site clean dry and intact ABDOMEN: Distended NEUROLOGIC: Patient is sedated ASSESSMENT: 1. 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 2. Status post tracheostomy for respiratory failure 3. Status post fall off a ladder with, to chest and abdomen 4. Left-sided pneumothorax 5. Multiple left-sided rib fractures 6. Alcohol intoxication 7. Acute hypoxic ventilatory dependent respiratory failure. 8. Chronic pain medication 9. Atrial fibrillation with rapid ventricular response. Patient now on Eliquis 10. C. diff colitis 11. Acute kidney injury . Followed closely by nephrology. 12. Acute blood loss anemia status post blood transfusion 13. Ileus PLAN: -Patient is scheduled for PEG tube placement tomorrow with Dr. Ivy -Nothing by mouth after midnight -Continue NG tube for decompression -Tube feedings on hold -Continue ICU management -Continue oral vancomycin -lovenox for DVT prophylaxis Physician Log Rider note has been reviewed by physician. Signing provider agrees with the documented findings, assessment, and plan of care. Objective - Vital Signs Vital signs: Vital Signs Temp 98.4 F 03/16/20 12:00 Pulse 80 03/16/20 14:00 Resp 18 03/16/20 14:00 BP 130/67 03/16/20 14:00 Pulse Ox 98 03/16/20 14:00 Intake & Output 03/15/20 03/16/20 03/16/20 18:59 06:59 18:59 Intake Total 507.377 552.141 948.309 Output Total 3635 300 410 Balance -3127.623 252.141 538.309 Weight 80.9 kg 80.9 kg Intake: IV 220 20 140 Sodium Chloride 0.9% 1, 220 20 140 000 ml @ 20 mls/hr IV . Q24H [facility] Rx#:[id number] Intake, IV Titration 287.377 532.141 808.309 Amount Amiodarone 300 mg In 250 250 Dextrose 5% in Water 250 ml @ 0.5 MG/MIN 25 mls/hr IV .Q10H [facility] Rx#: [id number] Anidulafungin 100 mg In 100 Sodium Chloride 0.9% 100 ml @ 84 mls/hr IVPB DAILY [facility] Rx#:[id number] Heparin Sod,Pork in 0.45% 206.667 NaCl 25,000 unit In 0.45 % NaCl 1 250ml.bag @ 11. 696 UNITS/KG/HR 10 mls/hr IV .Q24H [facility] Rx#: [id number] Meropenem 1 gm In Sodium 100 Chloride 0.9% 100 ml @ 33 .3 mls/hr IVPB Q12H [facility] Rx#:[id number] Norepinephrine 32 mg In 45.278 18.016 Sodium Chloride 0.9% 218 ml @ 0.14 MCG/KG/MIN 6. 759 mls/hr IV .Q24H [facility] Rx#:[id number] metroNIDAZOLE-NS PMX 500 100 mg In Saline 1 100ml.bag @ 100 mls/hr IVPB Q8HR [facility] Rx#:[id number] propofoL 1,000 mg In 242.099 264.125 51.642 Empty Bag 1 bag @ Titrate IV .Q0M [facility] Rx#: [id number] Output: Gastric Drainage 100 Urine 135 200 410 Hemodialysis 3500 Other: Voiding Method Indwelling Catheter Indwelling Catheter Indwelling Catheter ABP, PAP, CO, CI - Last Documented Arterial Blood Pressure 129/50 - Labs CBC & Chem 7: 03/16/20 06:24 03/16/20 06:24 Labs: Abnormal Lab Results - Last 24 Hours (Table) 03/15/20 03/15/20 03/15/20 Range/Units 18:00 18:30 23:22 WBC (3.8-10.6) k/uL RBC (4.30-5.90) m/uL Hgb (13.0-17.5) gm/dL Hct (39.0-53.0) % MCHC (31.0-37.0) g/dL RDW (11.5-15.5) % Neutrophils # (1.3-7.7) k/uL Monocytes # (0-1.0) k/uL APTT 55.8 H (22.0-30.0) sec ABG pCO2 (35-45) mmHg ABG pO2 (83-108) mmHg ABG O2 Saturation (94-97) % BUN (9-20) mg/dL Creatinine (0.66-1.25) mg/dL Glucose (74-99) mg/dL POC Glucose (mg/dL) 173 H 170 H (75-99) mg/dL Calcium (8.4-10.2) mg/dL 03/16/20 03/16/20 03/16/20 Range/Units 00:20 06:04 06:24 WBC 33.3 H (3.8-10.6) k/uL RBC 2.80 L (4.30-5.90) m/uL Hgb 7.7 L D (13.0-17.5) gm/dL Hct 26.4 L (39.0-53.0) % MCHC 29.0 L (31.0-37.0) g/dL RDW 17.9 H (11.5-15.5) % Neutrophils # 29.8 H (1.3-7.7) k/uL Monocytes # 2.0 H (0-1.0) k/uL APTT (22.0-30.0) sec ABG pCO2 (35-45) mmHg ABG pO2 (83-108) mmHg ABG O2 Saturation (94-97) % BUN (9-20) mg/dL Creatinine (0.66-1.25) mg/dL Glucose (74-99) mg/dL POC Glucose (mg/dL) 167 H 158 H (75-99) mg/dL Calcium (8.4-10.2) mg/dL 03/16/20 03/16/20 03/16/20 Range/Units 06:24 06:35 08:05 WBC (3.8-10.6) k/uL RBC (4.30-5.90) m/uL Hgb (13.0-17.5) gm/dL Hct (39.0-53.0) % MCHC (31.0-37.0) g/dL RDW (11.5-15.5) % Neutrophils # (1.3-7.7) k/uL Monocytes # (0-1.0) k/uL APTT (22.0-30.0) sec ABG pCO2 33 L (35-45) mmHg ABG pO2 133 H (83-108) mmHg ABG O2 Saturation 99.2 H (94-97) % BUN 76 H (9-20) mg/dL Creatinine 2.66 H (0.66-1.25) mg/dL Glucose 148 H (74-99) mg/dL POC Glucose (mg/dL) 158 H (75-99) mg/dL Calcium 7.6 L (8.4-10.2) mg/dL 03/16/20 Range/Units 11:29 WBC (3.8-10.6) k/uL RBC (4.30-5.90) m/uL Hgb (13.0-17.5) gm/dL Hct (39.0-53.0) % MCHC (31.0-37.0) g/dL RDW (11.5-15.5) % Neutrophils # (1.3-7.7) k/uL Monocytes # (0-1.0) k/uL APTT (22.0-30.0) sec ABG pCO2 (35-45) mmHg ABG pO2 (83-108) mmHg ABG O2 Saturation (94-97) % BUN (9-20) mg/dL Creatinine (0.66-1.25) mg/dL Glucose (74-99) mg/dL POC Glucose (mg/dL) 132 H (75-99) mg/dL Calcium (8.4-10.2) mg/dL Microbiology - Last 24 Hours (Table) 03/12/20 09:30 Gram Stain - Final Neck Wound Culture - Preliminary Escherichia coli Selina krusei Selina albicans 03/15/20 09:40 Blood Culture - Preliminary Blood No Growth after 24 hours 03/15/20 21:21 Sputum Culture - Preliminary Sputum 03/15/20 09:53 Blood Culture - Preliminary Blood No Growth after 24 hours 03/02/20 08:30 Acid Fast Bacilli Smear - Final Cerebral Spinal Fluid Acid Fast Bacilli Culture - Preliminary 03/11/20 17:55 Blood Culture - Preliminary Blood No Growth after 96 hours 03/12/20 09:30 Anaerobic Culture - Preliminary Neck 03/12/20 17:22 Gram Stain - Final Sputum Sputum Culture - Final Selina albicans Selina sp,not albicans/galbr 02/29/20 11:00 Fungal Culture - Preliminary Bronchial Washings - Right 03/02/20 08:30 Fungal Culture - Preliminary Cerebral Spinal Fluid
--- NOTE | 2020-03-16 15:04 | PN ---
PROGRESS NOTE DATE OF SERVICE: 03/16/2020 REASON FOR FOLLOWUP: C difficile colitis, oropharyngeal candidiasis, small neck wound infection with an E coli. INTERVAL HISTORY: The patient is currently afebrile. The patient is hemodynamically stable, not on pressor support. Patient still n.p.o. because of his ileus. He did have 2 mL and did have some bowel movements. No further vomiting has been noticed or any worsening respiratory status. PHYSICAL EXAMINATION: Blood pressure 130/67, pulse of 80, temperature 98.4. He is 98% on 35% FiO2. General description is an elderly male, lying in bed in no distress. RESPIRATORY SYSTEM: Unlabored breathing, decreased breath sounds at the base, no wheeze. HEART: S1, S2. Regular rate and rhythm. ABDOMEN: Soft, no tenderness. LABS: Hemoglobin is 7.3, white count 33.3, BUN of 76, creatinine 0.66. IMPRESSION/PLAN: 1. Patient with C difficile colitis, currently covered with vanc, IV Flagyl and the patient is currently n.p.o. because of his ileus to continue. 2. Patient with oropharyngeal candidiasis, continue with Eraxis. 3. Patient with a fever with concern for possible line-related; however, blood culture has been negative. Daptomycin will be discontinued now with neck/colitis. Culture positive for E coli sensitive pathogen. Rocephin 1 g daily will be added and condition to monitor closely. Continue supportive care. MMODL / DONATON: [id number] /
[2020-03-16] MEDS ORDERED: LIDOCAINE 1% INJ 10MG/ML (20 ML MDV) ONE ×2 (15:15→15:29)
[2020-03-16] MEDS ORDERED: LIDOCAINE 1% INJ 10MG/ML (20 ML MDV) SQ ONE ×2 (15:20→15:29)
[2020-03-16] MEDS ORDERED: HEPARIN SODIUM 1,000 UN/ML (10ML VL) ONE (15:40)
[2020-03-16] MEDS ORDERED: HEPARIN SODIUM 1,000 UN/ML (10ML VL) IV ONE (15:44)
[2020-03-16 17:35] LABS: Hemoglobin A1C 5.3 % (4.0-6.0)
[2020-03-16 17:39] LABS: Glucose,Whole Blood 129 mg/dL (75-99)
--- NOTE | 2020-03-16 18:01 | XR ---
EXAMINATION TYPE: XR chest 1V portable DATE OF EXAM: 03/16/2020 COMPARISON: Prior chest x-ray 03/16/2020 at earlier time HISTORY: Status post dialysis catheter placement TECHNIQUE: Single frontal view of the chest is obtained. FINDINGS: There is interval placement of a right jugular central venous catheter with the distal tip over the right atrium. There is no evident pneumothorax or pleural effusion, no other significant in terval change. There are overlying artifacts. IMPRESSION: No evident complication status post dialysis catheter placement.
[2020-03-16 18:06] LABS: Ionized Calcium 4.1 mg/dL (4.5-5.3)
[2020-03-16 18:14] LABS: Albumin 2.6 g/dL (3.5-5.0); Magnesium 2.5 mg/dL (1.6-2.3)
[2020-03-16 18:30] LABS: Phosphorus 11.4 mg/dL (2.5-4.5)
[2020-03-16] MEDS ORDERED: [UNRECOGNIZED DRUG - REMARK] IV SCH ×6 (19:30)
--- NOTE | 2020-03-16 21:22 | OP ---
OPERATIVE REPORT PREOPERATIVE DIAGNOSIS: Acute on chronic renal failure. POSTOP DIAGNOSIS: Acute on chronic renal failure with tracheostomy. PROCEDURE PERFORMED: 1. Ultrasound-guided 23 cm dialysis catheter placed in the right IJ. 2. The removal of the dialysis catheter femoral approach. SEDATION: Sedation time is . DESCRIPTION OF PROCEDURE: The patient was [place] [facility]. Right side of the neck and chest was prepped and draped in sterile manner and groin was prepped and drapes applied in sterile manner. 1% lidocaine was infiltrated into the right jugular area. Micropuncture introduced into the right jugular vein and micropuncture guidewire was passed. After that, a 4-[place] dilator advanced on the top of the guidewire. Then tunnel was created. Through the tunnel, we brought 23 cm dialysis catheter. After that, we passed a regular guidewire. Then we passed a dilator and then advanced a dilator and sheath. Through the sheath, we introduced the dialysis catheter. Tip of catheter in superior vena caval atrial junction. Sheath was removed. Flushed with heparin saline and hep- locked and incision was closed with Vicryl and nylon. Dressings applied. Patient tolerated the procedure well. The groin was prepped and the patient has a temporary dialysis catheter which was removed. Pressure held. Patient tolerated the procedure well. MMODL / IJN: [id number] /
[2020-03-16] MEDS: FINASTERIDE 5 MG TAB PO SCH (21:29)
[2020-03-16] MEDS: QUEtiapine 100 MG TAB PO SCH (21:30)
[2020-03-16] MEDS: TAMSULOSIN 0.4 MG CAP.ER.24H PO SCH (21:30)
[2020-03-16 23:42] LABS: Glucose,Whole Blood 120 mg/dL (75-99)
[2020-03-17] MEDS: LACTATED RINGERS 1,000 ML IV SCH (00:33)
[2020-03-17] MEDS: MEROPENEM 1 GM in SODIUM CHLORIDE 0.9% 100 ML IVPB SCH ×2 (00:52→11:37)
[2020-03-17] MEDS: NOREPINEPHRINE 32 MG in SODIUM CHLORIDE 0.9% 218 ML IV SCH (03:46)
[2020-03-17] MEDS: IPRATROPIUM-ALBUTEROL 3 ML NEB INHALATION SCH ×6 (04:15→23:36)
[2020-03-17] MEDS: INSULIN ASPART (NovoLOG) 100 UNIT/ML VIAL SQ SCH ×4 (06:06→23:58)
[2020-03-17 06:07] LABS: Glucose,Whole Blood 122 mg/dL (75-99)
[2020-03-17] MEDS: VANCOMYCIN ORAL SOLUTION 250 MG/5 ML BOTTLE PO SCH ×4 (06:09→23:59)
[2020-03-17 06:56] LABS: Ionized Calcium 4.2 mg/dL (4.5-5.3)
[2020-03-17 07:02] LABS: Anisocytosis Slight; Basophils % (A) 0 %; Eosinophils # (A) 0.1 k/uL (0-0.7); Eosinophils % (A) 0 %; HCT 26.1 % (39.0-53.0); HGB 7.8 gm/dL (13.0-17.5); Hypochromasia Marked; Lymphocytes # (A) 1.5 k/uL (1.0-4.8); Lymphocytes % (A) 5 %; MCH 27.5 pg (25.0-35.0); MCHC 29.7 g/dL (31.0-37.0); MCV 92.7 fL (80.0-100.0); Mean Platelet Volume 8.8; Monocytes # (A) 2.6 k/uL (0-1.0); Monocytes % (A) 10 %; Neutrophils % (A) 84 %; Platelet Count 492 k/uL (150-450); Poikilocytosis Slight; RBC 2.82 m/uL (4.30-5.90); RDW 17.6 % (11.5-15.5); WBC 27.5 k/uL (3.8-10.6)
[2020-03-17 07:17] LABS: Albumin 2.6 g/dL (3.5-5.0); Calcium 7.9 mg/dL (8.4-10.2); Magnesium 2.4 mg/dL (1.6-2.3); Potassium 3.7 mmol/L (3.5-5.1); Total Bilirubin 1.1 mg/dL (0.2-1.3); Total Protein 5.1 g/dL (6.3-8.2)
--- NOTE | 2020-03-17 07:17 | P.PN ---
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 We involved in the care of the patient because of p aroxysmal atrial fibrillation. The patient was seen today 03/17/2020. He was extubated yesterday. He is hemodynamically stable and not on any vasopressors at this point. He continues to be on amiodarone IV as well as heparin IV. He is going for acute today. Once he is not nothing by mouth any more we'll switch him to amiodarone by mouth as well as oral anticoagulation. Objective - Vital Signs Vital signs: Vital Signs Temp 98.0 F 03/17/20 04:00 Pulse 92 03/17/20 07:00 Resp 22 03/17/20 07:00 BP 155/75 03/17/20 07:00 Pulse Ox 96 03/17/20 07:00 Intake & Output 03/16/20 03/17/20 03/17/20 18:59 06:59 18:59 Intake Total 7398.269 9173.151 50 Output Total 430 465 60 Balance 768.309 619.151 -10 Weight 80.9 kg 80.6 kg Intake: IV 220 440 20 Meropenem 1 gm In Sodium 100 Chloride 0.9% 100 ml @ 33 .3 mls/hr IVPB Q12H [facility] Rx#:[id number] Sodium Chloride 0.9% 1, 220 240 20 000 ml @ 20 mls/hr IV . Q24H [facility] Rx#:[id number] metroNIDAZOLE-NS PMX 500 100 mg In Saline 1 100ml.bag @ 100 mls/hr IVPB Q8HR [facility] Rx#:[id number] Intake, IV Titration 958.309 344.151 Amount Amiodarone 300 mg In 250 Dextrose 5% in Water 250 ml @ 0.5 MG/MIN 25 mls/hr IV .Q10H [facility] Rx#: [id number] Amiodarone 300 mg In 212.5 Dextrose 5% in Water 250 ml @ 0.5 MG/MIN 25 mls/hr IV .Q10H [facility] Rx#: [id number] Anidulafungin 100 mg In 100 Sodium Chloride 0.9% 100 ml @ 84 mls/hr IVPB DAILY [facility] Rx#:[id number] Heparin Sod,Pork in 0.45% 206.667 57.667 NaCl 25,000 unit In 0.45 % NaCl 1 250ml.bag @ 11. 696 UNITS/KG/HR 10 mls/hr IV .Q24H [facility] Rx#: [id number] Meropenem 1 gm In Sodium 100 Chloride 0.9% 100 ml @ 33 .3 mls/hr IVPB Q12H [facility] Rx#:[id number] cefTRIAXone 1 gm In 50 Sodium Chloride 0.9% 50 ml @ 100 mls/hr IVPB Q24HR [facility] Rx#:[id number] metroNIDAZOLE-NS PMX 500 200 mg In Saline 1 100ml.bag @ 100 mls/hr IVPB Q8HR [facility] Rx#:[id number] propofoL 1,000 mg In 73.984 Empty Bag 1 bag @ 10 MCG/ KG/MIN 4.854 mls/hr IV . [id number] [facility] Rx#:[id number] propofoL 1,000 mg In 51.642 Empty Bag 1 bag @ Titrate IV .Q0M [facility] Rx#: [id number] Tube Feeding 20 0 0 TPN/PPN 300 30 Sodium Acetate 30 meq 300 30 Potassium Chloride 30 meq Calcium Gluconate 1 gm Mvi, Adult No.4 with Vit K 10 ml Trace (Conc-1Ml/ Dose) 1 ml In Amino Acid 5%-D15w 1,000 ml @ 30 mls /hr IV .Q24H [facility] Rx#: [id number] Output: Urine 430 465 60 Other: Voiding Method Indwelling Catheter Indwelling Catheter ABP, PAP, CO, CI - Last Documented Arterial Blood Pressure 129/50 - Constitutional General appearance: Present: no acute distress - Respiratory Respiratory: bilateral: diminished - Labs CBC & Chem 7: 03/17/20 06:22 03/16/20 06:24 Labs: Abnormal Lab Results - Last 24 Hours (Table) 03/16/20 03/16/20 03/16/20 Range/Units 06:24 06:24 08:05 WBC 33.3 H (3.8-10.6) k/uL RBC 2.80 L (4.30-5.90) m/uL Hgb 7.7 L D (13.0-17.5) gm/dL Hct 26.4 L (39.0-53.0) % MCHC 29.0 L (31.0-37.0) g/dL RDW 17.9 H (11.5-15.5) % Plt Count (150-450) k/uL Neutrophils # 29.8 H (1.3-7.7) k/uL Monocytes # 2.0 H (0-1.0) k/uL APTT (22.0-30.0) sec ABG pCO2 33 L (35-45) mmHg ABG pO2 133 H (83-108) mmHg ABG O2 Saturation 99.2 H (94-97) % BUN 76 H (9-20) mg/dL Creatinine 2.66 H (0.66-1.25) mg/dL Glucose 148 H (74-99) mg/dL POC Glucose (mg/dL) (75-99) mg/dL Calcium 7.6 L (8.4-10.2) mg/dL Ionized Calcium Greg (4.5-5.3) mg/dL Phosphorus (2.5-4.5) mg/dL Magnesium (1.6-2.3) mg/dL Albumin (3.5-5.0) g/dL Triglycerides (<150) mg/dL 03/16/20 03/16/20 03/16/20 Range/Units 11:29 17:14 17:38 WBC (3.8-10.6) k/uL RBC (4.30-5.90) m/uL Hgb (13.0-17.5) gm/dL Hct (39.0-53.0) % MCHC (31.0-37.0) g/dL RDW (11.5-15.5) % Plt Count (150-450) k/uL Neutrophils # (1.3-7.7) k/uL Monocytes # (0-1.0) k/uL APTT (22.0-30.0) sec ABG pCO2 (35-45) mmHg ABG pO2 (83-108) mmHg ABG O2 Saturation (94-97) % BUN (9-20) mg/dL Creatinine (0.66-1.25) mg/dL Glucose (74-99) mg/dL POC Glucose (mg/dL) 132 H 129 H (75-99) mg/dL Calcium (8.4-10.2) mg/dL Ionized Calcium Greg 4.1 L (4.5-5.3) mg/dL Phosphorus 11.4 H* (2.5-4.5) mg/dL Magnesium 2.5 H (1.6-2.3) mg/dL Albumin 2.6 L (3.5-5.0) g/dL Triglycerides 260 H (<150) mg/dL 03/16/20 03/16/20 03/17/20 Range/Units 23:18 23:40 06:05 WBC (3.8-10.6) k/uL RBC (4.30-5.90) m/uL Hgb (13.0-17.5) gm/dL Hct (39.0-53.0) % MCHC (31.0-37.0) g/dL RDW (11.5-15.5) % Plt Count (150-450) k/uL Neutrophils # (1.3-7.7) k/uL Monocytes # (0-1.0) k/uL APTT 32.8 H (22.0-30.0) sec ABG pCO2 (35-45) mmHg ABG pO2 (83-108) mmHg ABG O2 Saturation (94-97) % BUN (9-20) mg/dL Creatinine (0.66-1.25) mg/dL Glucose (74-99) mg/dL POC Glucose (mg/dL) 120 H 122 H (75-99) mg/dL Calcium (8.4-10.2) mg/dL Ionized Calcium Greg (4.5-5.3) mg/dL Phosphorus (2.5-4.5) mg/dL Magnesium (1.6-2.3) mg/dL Albumin (3.5-5.0) g/dL Triglycerides (<150) mg/dL 03/17/20 03/17/20 03/17/20 Range/Units : 06:22 06:22 WBC 27.5 H (3.8-10.6) k/uL RBC 2.82 L (4.30-5.90) m/uL Hgb 7.8 L (13.0-17.5) gm/dL Hct 26.1 L (39.0-53.0) % MCHC 29.7 L (31.0-37.0) g/dL RDW 17.6 H (11.5-15.5) % Plt Count 492 H (150-450) k/uL Neutrophils # (1.3-7.7) k/uL Monocytes # (0-1.0) k/uL APTT 39.2 H (22.0-30.0) sec ABG pCO2 (35-45) mmHg ABG pO2 (83-108) mmHg ABG O2 Saturation (94-97) % BUN (9-20) mg/dL Creatinine (0.66-1.25) mg/dL Glucose (74-99) mg/dL POC Glucose (mg/dL) (75-99) mg/dL Calcium (8.4-10.2) mg/dL Ionized Calcium Greg 4.2 L (4.5-5.3) mg/dL Phosphorus (2.5-4.5) mg/dL Magnesium (1.6-2.3) mg/dL Albumin (3.5-5.0) g/dL Triglycerides (<150) mg/dL Microbiology - Last 24 Hours (Table) 03/11/20 17:55 Blood Culture - Preliminary Blood No Growth after 120 hours 03/15/20 21:21 Gram Stain - Preliminary Sputum Sputum Culture - Preliminary 03/12/20 09:30 Gram Stain - Final Neck Wound Culture - Preliminary Escherichia coli Selina krusei Selina albicans 03/15/20 09:40 Blood Culture - Preliminary Blood No Growth after 24 hours 03/15/20 09:53 Blood Culture - Preliminary Blood No Growth after 24 hours 03/02/20 08:30 Acid Fast Bacilli Smear - Final Cerebral Spinal Fluid Acid Fast Bacilli Culture - Preliminary Assessment and Plan Assessment: Assessment #1 status post fall with rib fracture #2 status post splenectomy #3 paroxysmal atrial fibrillation #4 multiple comorbid conditions Plan #1 continue heparin IV #2 continue amiodarone IV #3 switch the patient to amiodarone by mouth and oral anticoagulation once he has a PEG tube
[2020-03-17 07:20] LABS: Phosphorus 10.5 mg/dL (2.5-4.5)
[2020-03-17 07:33] LABS: Polychromasia Present
[2020-03-17] MEDS: CALCIUM ACETATE 667 MG TAB PO SCH ×3 (08:11→17:04)
[2020-03-17] MEDS: MORPHINE ORAL SOLN 10 MG/5 ML CUP PO SCH ×3 (08:11→23:57)
--- NOTE | 2020-03-17 08:11 | XR ---
EXAMINATION TYPE: XR chest 1V portable DATE OF EXAM: 03/17/2020 COMPARISON: 04/15/2020 INDICATION: Respiratory distress TECHNIQUE: Single frontal view of the chest is obtained. FINDINGS: The heart size is normal. The pulmonary vasculature is prominent. There is mild increased lung markings diffusely. This may be related to perihilar regions. Right central venous catheter is present with the tip in the superior vena cava region. PICC line ent ers on the left tip in the superior vena cava region. Tracheostomy tube is in the midline. Nasogastri c tube is present with tip in left upper quadrant of the abdomen. IMPRESSION: 1. Volume overload versus mild pulmonary edema. 2. Multiple lines and catheters discussed above.
[2020-03-17] MEDS: THIAMINE 100 MG TAB PO SCH (08:31)
[2020-03-17] MEDS: HYDROPHILIC CREAM 180 GM TUBE TOPICAL SCH (08:54)
[2020-03-17] MEDS: CHLORHEXIDINE GLUCONATE 15 ML CUP MUCOUS MEM SCH ×2 (08:54→21:27)
[2020-03-17] MEDS: PANTOPRAZOLE 40 MG/10 ML VIAL IVP SCH (08:54)
--- NOTE | 2020-03-17 09:01 | P.PN ---
Subjective patient is seen in follow-up for acute kidney injury, currently hemodialysis dependent. remains off Levophed. Has a tracheostomy. On 35% FiO2. Urine output improved - 40-60 mL an hour. Vital signs are stable. off Levophed. General: The patient appeared well nourished and normally developed. HEENT: Head exam is unremarkable. Neck is without jugular venous distension. NG tube noted. tracheostomy. LUNGS: Breath sounds decreased. HEART: Rate and Rhythm are regular. ABDOMEN: soft, nondistended. EXTREMITITES: 1+ edema. Objective - Vital Signs Vital signs: Vital Signs Temp 98.9 F 03/17/20 08:00 Pulse 93 03/17/20 08:25 Resp 29 H 03/17/20 08:00 BP 158/80 03/17/20 08:00 Pulse Ox 96 03/17/20 08:00 Intake & Output 03/16/20 03/17/20 03/17/20 18:59 06:59 18:59 Intake Total 4144.170 2991.151 192.353 Output Total 430 465 100 Balance 768.309 619.151 92.353 Weight 80.9 kg 80.6 kg Intake: IV 220 440 70 Meropenem 1 gm In Sodium 100 Chloride 0.9% 100 ml @ 33 .3 mls/hr IVPB Q12H [facility] Rx#:[id number] Sodium Acetate 30 meq 30 Potassium Chloride 30 meq Calcium Gluconate 1 gm Mvi, Adult No.4 with Vit K 10 ml Trace (Conc-1Ml/ Dose) 1 ml In Amino Acid 5%-D15w 1,000 ml @ 30 mls /hr IV .Q24H [facility] Rx#: [id number] Sodium Chloride 0.9% 1, 220 240 40 000 ml @ 20 mls/hr IV . Q24H [facility] Rx#:[id number] metroNIDAZOLE-NS PMX 500 100 mg In Saline 1 100ml.bag @ 100 mls/hr IVPB Q8HR [facility] Rx#:[id number] Intake, IV Titration 958.309 344.151 92.353 Amount Amiodarone 300 mg In 250 Dextrose 5% in Water 250 ml @ 0.5 MG/MIN 25 mls/hr IV .Q10H [facility] Rx#: [id number] Amiodarone 300 mg In 212.5 Dextrose 5% in Water 250 ml @ 0.5 MG/MIN 25 mls/hr IV .Q10H [facility] Rx#: [id number] Anidulafungin 100 mg In 100 Sodium Chloride 0.9% 100 ml @ 84 mls/hr IVPB DAILY [facility] Rx#:[id number] Heparin Sod,Pork in 0.45% 206.667 57.667 92.353 NaCl 25,000 unit In 0.45 % NaCl 1 250ml.bag @ 11. 696 UNITS/KG/HR 10 mls/hr IV .Q24H [facility] Rx#: [id number] Meropenem 1 gm In Sodium 100 Chloride 0.9% 100 ml @ 33 .3 mls/hr IVPB Q12H [facility] Rx#:[id number] cefTRIAXone 1 gm In 50 Sodium Chloride 0.9% 50 ml @ 100 mls/hr IVPB Q24HR [facility] Rx#:[id number] metroNIDAZOLE-NS PMX 500 200 mg In Saline 1 100ml.bag @ 100 mls/hr IVPB Q8HR [facility] Rx#:[id number] propofoL 1,000 mg In 73.984 Empty Bag 1 bag @ 10 MCG/ KG/MIN 4.854 mls/hr IV . [id number] [facility] Rx#:[id number] propofoL 1,000 mg In 51.642 Empty Bag 1 bag @ Titrate IV .Q0M [facility] Rx#: [id number] Tube Feeding 20 0 0 TPN/PPN 300 30 Sodium Acetate 30 meq 300 30 Potassium Chloride 30 meq Calcium Gluconate 1 gm Mvi, Adult No.4 with Vit K 10 ml Trace (Conc-1Ml/ Dose) 1 ml In Amino Acid 5%-D15w 1,000 ml @ 30 mls /hr IV .Q24H [facility] Rx#: [id number] Output: Urine 430 465 100 Other: Voiding Method Indwelling Catheter Indwelling Catheter ABP, PAP, CO, CI - Last Documented Arterial Blood Pressure 129/50 - Labs CBC & Chem 7: 03/17/20 06:22 03/17/20 06:22 Labs: Abnormal Lab Results - Last 24 Hours (Table) 03/16/20 03/16/20 03/16/20 Range/Units 11:29 17:14 17:38 WBC (3.8-10.6) k/uL RBC (4.30-5.90) m/uL Hgb (13.0-17.5) gm/dL Hct (39.0-53.0) % MCHC (31.0-37.0) g/dL RDW (11.5-15.5) % Plt Count (150-450) k/uL Neutrophils # (1.3-7.7) k/uL Monocytes # (0-1.0) k/uL APTT (22.0-30.0) sec Carbon Dioxide (22-30) mmol/L BUN (9-20) mg/dL Creatinine (0.66-1.25) mg/dL Glucose (74-99) mg/dL POC Glucose (mg/dL) 132 H 129 H (75-99) mg/dL Calcium (8.4-10.2) mg/dL Ionized Calcium Greg 4.1 L (4.5-5.3) mg/dL Phosphorus 11.4 H* (2.5-4.5) mg/dL Magnesium 2.5 H (1.6-2.3) mg/dL Alkaline Phosphatase (38-126) U/L Total Protein (6.3-8.2) g/dL Albumin 2.6 L (3.5-5.0) g/dL Triglycerides 260 H (<150) mg/dL 03/16/20 03/16/20 03/17/20 Range/Units 23:18 23:40 06:05 WBC (3.8-10.6) k/uL RBC (4.30-5.90) m/uL Hgb (13.0-17.5) gm/dL Hct (39.0-53.0) % MCHC (31.0-37.0) g/dL RDW (11.5-15.5) % Plt Count (150-450) k/uL Neutrophils # (1.3-7.7) k/uL Monocytes # (0-1.0) k/uL APTT 32.8 H (22.0-30.0) sec Carbon Dioxide (22-30) mmol/L BUN (9-20) mg/dL Creatinine (0.66-1.25) mg/dL Glucose (74-99) mg/dL POC Glucose (mg/dL) 120 H 122 H (75-99) mg/dL Calcium (8.4-10.2) mg/dL Ionized Calcium Greg (4.5-5.3) mg/dL Phosphorus (2.5-4.5) mg/dL Magnesium (1.6-2.3) mg/dL Alkaline Phosphatase (38-126) U/L Total Protein (6.3-8.2) g/dL Albumin (3.5-5.0) g/dL Triglycerides (<150) mg/dL 03/17/20 03/17/20 03/17/20 Range/Units 06:22 06:22 06:22 WBC 27.5 H (3.8-10.6) k/uL RBC 2.82 L (4.30-5.90) m/uL Hgb 7.8 L (13.0-17.5) gm/dL Hct 26.1 L (39.0-53.0) % MCHC 29.7 L (31.0-37.0) g/dL RDW 17.6 H (11.5-15.5) % Plt Count 492 H (150-450) k/uL Neutrophils # 23.0 H (1.3-7.7) k/uL Monocytes # 2.6 H (0-1.0) k/uL APTT 39.2 H (22.0-30.0) sec Carbon Dioxide 21 L (22-30) mmol/L BUN 96 H (9-20) mg/dL Creatinine 3.31 H (0.66-1.25) mg/dL Glucose 118 H (74-99) mg/dL POC Glucose (mg/dL) (75-99) mg/dL Calcium 7.9 L (8.4-10.2) mg/dL Ionized Calcium Greg 4.2 L (4.5-5.3) mg/dL Phosphorus 10.5 H* (2.5-4.5) mg/dL Magnesium 2.4 H (1.6-2.3) mg/dL Alkaline Phosphatase 174 H (38-126) U/L Total Protein 5.1 L (6.3-8.2) g/dL Albumin 2.6 L (3.5-5.0) g/dL Triglycerides (<150) mg/dL Microbiology - Last 24 Hours (Table) 03/11/20 17:55 Blood Culture - Preliminary Blood No Growth after 120 hours 03/15/20 21:21 Gram Stain - Preliminary Sputum Sputum Culture - Preliminary 03/12/20 09:30 Gram Stain - Final Neck Wound Culture - Preliminary Escherichia coli Selina krusei Selina albicans 03/15/20 09:40 Blood Culture - Preliminary Blood No Growth after 24 hours 03/15/20 09:53 Blood Culture - Preliminary Blood No Growth after 24 hours Assessment and Plan Plan: assessment: 1. Acute kidney injury secondary to ATN secondary to infection and hemodynamic instability. started on hemodialysis March 04 due to oliguria and hyperkalemia. Baseline creatinine near 1. UA fairly benign. 2. Hypervolemic hyponatremia. improved with ultrafiltration. 3. A. fib with RVR maintained on amiodarone and heparin. 4. Status post fall with pneumothorax, multiple rib fractures, hemoperitoneum and ruptured spleen status post emergent chest tube placement and splenectomy. 5. acute blood loss anemia status post blood transfusions this admission. improved post blood transfusion. Also on Aranesp. 6. Metabolic acidosis secondary to acute kidney injury. stable. 7. 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 8. Hyperkalemia secondary to acute kidney injury and metabolic acidosis. ?GI bleed. improved postdialysis. 9. Third-degree heart block. Cardiology following. 10. Hyperphosphatemia secondary to acute kidney injury. 11. Volume overload. significantly improved with ultrafiltration. Plan: currently seen while undergoing hemodialysis. Will be maintained on Sunday schedule. Wean FiO2. Continue to monitor renal function and urine output. add Lasix 80 mg IV twice daily. PhosLo to be resumed once tube feeding initiated. avoid nephrotoxins. Discontinue Fleet enemas.
[2020-03-17] MEDS: FUROSEMIDE 10 MG/ML 10 ML VIAL IV SCH ×2 (09:16→21:27)
[2020-03-17] MEDS: metroNIDAZOLE-NS PMX 500 MG in SALINE 1 100ML.BAG IVPB SCH ×3 (11:05→23:57)
[2020-03-17] MEDS: ANIDULAFUNGIN 100 MG in SODIUM CHLORIDE 0.9% 100 ML IVPB SCH (11:35)
[2020-03-17] MEDS: HEPARIN SOD,PORK IN 0.45% NACL 25,000 UNIT in 0.45% NACL 1 250ML.BAG IV SCH (11:44)
[2020-03-17 11:48] LABS: Glucose,Whole Blood 103 mg/dL (75-99)
--- NOTE | 2020-03-17 13:19 | P.PN ---
Subjective Progress Note Date: 03/17/20 Principal diagnosis: Status post fall off ladder and significant trauma to chest and abdomen. This is a 69-year-old male patient who was working on his gutters when he fell off a 15 foot ladder. This was unwitnessed. He end up calling his who in turn called EMS and the patient was brought in to the emergency department. Upon arrival, the patient was hypotensive and he was in shock. The patient initial chest x-ray showed several left-sided fractures and small amount of subcutaneous air in addition to a left-sided pneumothorax. The x-ray of the pelvis showed no evidence of any fracture or dislocation. The CAT scan of the brain showed age-related atrophy and chronic small vessel ischemic changes without any acute intracranial process. CAT scan of cervical spine showed no acute abnormalities. On and has Been of the cervical spine was done and the bone and soft tissue windows showed no acute abnormalities. There was no evidence of any fracture. Along with multiple left-sided rib fractures third extending to the seventh rib. There was also spending the sedation with estimated grade 3 injury the patient. The patient's hemoglobin dropped to 10.5. The patient received a total of 2 L of IV fluid and 40 minutes of packed RBC. Morning hemoglobin today is At 13.4. The patient was taken to the operating room yesterday. The patient underwent a left-sided chest tube insertion. The patient also had splenectomy done and following that the patient was kept intubated on a mechanical ventilator and he was transferred to the intensive care unit. Note that the patient takes morphine outpatient basis and he has chronic pain and chronic narcotic requirements and on outpatient basis he takes morphine sulfate in the form of MS Contin 50 mg every 12 hours. Overnight, the patient was intubated on mechanical ventilator. He was sedated with a combination of propofol and he was also placed on morphine drip after being given several boluses control his pain. This morning, Profore is running at 70 mg per KG per minute. Morphine is running at 8 mg an hour. The patient is on normal saline at rate of 85 mL an hour. The patient has a left sided chest tube. Total amount of output is in order 110 mL of serosanguineous material without evidence of any air leak. The ventilator setting shows an assist- control mode rate of 20 with a tidal volume of 500 and FiO2 of 40% with a PEEP of 5. The patient's FiO2 is down to 40% overnight. The morning blood gases showed a pH of 7.4 with a pCO2 of 37 and pO2 of 121. The chest x-ray from this morning shows that the patient has an indwelling left-sided chest tube without any signs or pneumothorax. There is also a basilar pleural-based opacity along with multiple left-sided rib fractures and ET tube is in a good location. He is at approximately slightly swollen probably related to an infiltrated IV. He did not require any pressors. He remains hemodynamically stable. Lactic acid remains slightly elevated at 2.9 03/14/2020, the patient had a setback this morning. He had large volume emesis. He had several emesis and possibly aspirated. He became tachypneic and short of breath. He is awake however he became more restless and uncomfortable post aspiration. Based on that, I asked the nursing staff to utilize some Precedex if needed to control agitation. Meanwhile, the patient had his tube feeds held. Affect some of the abdomen was done that shows possible small bowel obstruction, partial and the patient has fecal stasis/infection the right lower quadrant area. The patient notes was taking treatment for C. diff colitis and he was on a combination of vancomycin and IV Flagyl. No diarrhea for now. Tube feeds on hold for now. He remains on a mechanical ventilator. His assist- control mode at the rate of 22 with a tidal volume of 500 and FiO2 of 40% with a PEEP of 5. The chest x-ray from today shows further clearing of the bilateral pulmonary infiltrates and this was done before the aspiration episode. No hemodialysis will be done today. His blood gases showed a pH of 7.5 with a pCO2 of 35 and pO2 of 92. Is still having episodic fever. The sputum around the tracheostomy tube was positive for gram-negative and I added the troponin. ID is on the case and the patient is taking a combination of daptomycin and Eraxis. He is on no Cardizem drip for now. Tube feeds are currently on hold. No other significant events otherwise for now. Noted the patient was showing significant amount of progress in terms of his neuro status. Abdominal wound is dry clean and intact. Bowel sounds are hypoactive for now. Patient was reevaluated today on 03/15/20, patient had a major setback last night, he developed extreme agitation, became asynchronous with the ventilator, and he developed high peak airway pressures on the ventilator. Patient required sedation again, and he is now on propofol drip at 30 mcg/kg/m. Patient also developed hypotension requiring norepinephrine presently at 0.02 mcg/kg/m. He is off Cardizem. His ventilator settings today are assist control rate of 22 tidal volume is 500 FiO2 50% and PEEP of 5. ABG this morning showed a pO2 of 385 pCO2 of 38 pH of 7.4. Hence his FiO2 was decreased down to 45%, and I kept him on volume control plus. Tidal volume at 500. Patient was admitted on 02/17/20, and has been in the hospital since. Yesterday the patient had 2 episodes of vomiting and he may have aspirated. His tube feeding is presently on hold. He developed some abdominal distention, and that being addressed by surgery on the case. . Recent cultures have been basically nondiagnostic. Develop leukocytosis and the repeat cultures are ordered. His ventilator settings were changed and his FiO2 was decreased down to 45%. Patient will undergo hemodialysis today. Still having episodes of fever. His most recent sputum cultures have shown Selina and gram-negative bacilli antibiotics stallworth, patient is on daptomycin, meropenem, and Eraxis. Reevaluated today on 03/16/20, patient remains in the ICU, remains on the same ventilatory settings assist control rate of 22 tidal volume is 500 FiO2 35% and PEEP of 5. ABG this morning showed a pO2 of 133 pCO2 of 33 pH of 7.44 patient is on amiodarone at 0.5 mg/m, IV fluid at KVO, is also on propofol which I will cut down as long as the patient is not agitated. He seems to be calm on this dose of propofol, and he seems to follow simple instructions but he generally weak. Continues to have enteral feeding on hold, and because of his ileus that he had yesterday, no plans for PEG tube soon. Although patient had some good bowel movements yesterday, and responded well to an emesis. Today the patient seems to be calm her, and again follow simple instructions, propofol remains at 40 mcg/kg/m. Chest x-ray today showed multiple left-sided rib fractures with left lower lobe consolidation and small effusion. Coarsened interstitium noted. Possibly interstitial pneumonitis. Abdominal films showed nonspecific abdomen with persistent distention of bowel loops greater in the right hemiabdomen essentially unchanged compared to yesterday. Differential diagnoses includes ileus or partial obstruction. Patient was reevaluated today on 03/17/20, remains in the ICU, patient remains on the same ventilator settings, assist control rate of 22 volume control +500 FiO2 35% and PEEP of 5. No ABG was done today. His basic metabolic profile is normal renal profile showed a BUN of 96 creatinine of 3.31. WBC count is down to 27.5 hemoglobin is 7.8. Patient is requiring small dose of propofol at 20 mcg/kg/m, he is also on IV fluid at KVO, amiodarone 0.5 mg/m, and he is schedul ed to undergo activity placement sometime later this afternoon. Patient did have bowel movements last night, and his abdomen seems to be soft. His enteral feeding remains on, nasogastric tube remains in place until the PEG tube is placed today. Recent blood cultures from the have been negative so far. Patient remains on Eraxis, ceftriaxone, meropenem, metronidazole, and oral vancomycin by mouth. His antibiotics are being addressed by infectious disease on the case. Patient is now off daptomycin. Chest x-ray showed slight already edema, and multiple lines and catheters remain about the same. Objective - Vital Signs Vital signs: Vital Signs Temp 99.4 F 03/17/20 12:00 Pulse 96 03/17/20 12:00 Resp 32 H 03/17/20 12:00 BP 135/60 03/17/20 12:00 Pulse Ox 97 03/17/20 12:00 Intake & Output 03/16/20 03/17/20 03/17/20 18:59 06:59 18:59 Intake Total 0030.059 9171.151 420.131 Output Total 201 554 8441 Balance 768.309 619.151 -3289.869 Weight 80.9 kg 80.6 kg Intake: IV 220 440 235 Meropenem 1 gm In Sodium 100 Chloride 0.9% 100 ml @ 33 .3 mls/hr IVPB Q12H [facility] Rx#:[id number] Sodium Acetate 30 meq 90 Potassium Chloride 30 meq Calcium Gluconate 1 gm Mvi, Adult No.4 with Vit K 10 ml Trace (Conc-1Ml/ Dose) 1 ml In Amino Acid 5%-D15w 1,000 ml @ 30 mls /hr IV .Q24H [facility] Rx#: [id number] Sodium Acetate 30 meq 45 Potassium Chloride 30 meq Calcium Gluconate 1 gm Mvi, Adult No.4 with Vit K 10 ml Trace (Conc-1Ml/ Dose) 1 ml In Amino Acid 5%-D15w 1,000 ml @ 45 mls /hr IV .[id number] [facility] Rx#: [id number] Sodium Chloride 0.9% 1, 220 240 100 000 ml @ 20 mls/hr IV . Q24H [facility] Rx#:[id number] metroNIDAZOLE-NS PMX 500 100 mg In Saline 1 100ml.bag @ 100 mls/hr IVPB Q8HR [facility] Rx#:[id number] Intake, IV Titration 958.309 344.151 155.131 Amount Amiodarone 300 mg In 250 Dextrose 5% in Water 250 ml @ 0.5 MG/MIN 25 mls/hr IV .Q10H [facility] Rx#: [id number] Amiodarone 300 mg In 212.5 Dextrose 5% in Water 250 ml @ 0.5 MG/MIN 25 mls/hr IV .Q10H [facility] Rx#: [id number] Anidulafungin 100 mg In 100 Sodium Chloride 0.9% 100 ml @ 84 mls/hr IVPB DAILY [facility] Rx#:[id number] Heparin Sod,Pork in 0.45% 206.667 57.667 92.353 NaCl 25,000 unit In 0.45 % NaCl 1 250ml.bag @ 11. 696 UNITS/KG/HR 10 mls/hr IV .Q24H [facility] Rx#: [id number] Meropenem 1 gm In Sodium 100 Chloride 0.9% 100 ml @ 33 .3 mls/hr IVPB Q12H [facility] Rx#:[id number] cefTRIAXone 1 gm In 50 Sodium Chloride 0.9% 50 ml @ 100 mls/hr IVPB Q24HR [facility] Rx#:[id number] metroNIDAZOLE-NS PMX 500 200 mg In Saline 1 100ml.bag @ 100 mls/hr IVPB Q8HR [facility] Rx#:[id number] propofoL 1,000 mg In 73.984 62.778 Empty Bag 1 bag @ 10 MCG/ KG/MIN 4.854 mls/hr IV . [id number] [facility] Rx#:[id number] propofoL 1,000 mg In 51.642 Empty Bag 1 bag @ Titrate IV .Q0M [facility] Rx#: [id number] Tube Feeding 20 0 0 TPN/PPN 300 30 Sodium Acetate 30 meq 300 30 Potassium Chloride 30 meq Calcium Gluconate 1 gm Mvi, Adult No.4 with Vit K 10 ml Trace (Conc-1Ml/ Dose) 1 ml In Amino Acid 5%-D15w 1,000 ml @ 30 mls /hr IV .Q24H [facility] Rx#: [id number] Output: Urine 430 465 210 Hemodialysis 3500 Other: Voiding Method Indwelling Catheter Indwelling Catheter Indwelling Catheter ABP, PAP, CO, CI - Last Documented Arterial Blood Pressure 129/50 - Exam Physical Exam: Revealed a 70-year-old white male, sedated, mechanically ventilated, on small dose of propofol 20 mcg/kg/m, patient is awake, follows simple instructions Head: Atraumatic, normocephalic, tracheostomy is intact, nasogastric tube is intact. HEENT:[Neck is supple.] [No neck masses.] [No thyromegaly.] [No JVD.] PERRLA, EOMI, no icterus. Chest: Symmetrical chest expansion, crackles and rhonchi bilaterally. Cardiac Exam: Distant S1 and S2, no S3 gallop. No murmur. Abdomen: [Soft, nontender, no megaly, no rebound, no guarding, normal bowel sounds.] Extremities: No clubbing, 1+ bipedal edema, no cyanosis.. Good pulses bilaterally. Neurological Exam: Pupils are equally reactive to light, patient seems to be generally weak. Arousable, follows simple instructions. But again generally weak. Psychiatric: Blunted mood, and affect. Otherwise could not assess further. Seems to comprehend, mental status seems to be adequate. Musculoskeletal: No deformities. Generally weak. - Labs CBC & Chem 7: 03/17/20 06:22 03/17/20 06:22 Labs: Abnormal Lab Results - Last 24 Hours (Table) 03/16/20 03/16/20 03/16/20 Range/Units 17:14 17:38 23:18 WBC (3.8-10.6) k/uL RBC (4.30-5.90) m/uL Hgb (13.0-17.5) gm/dL Hct (39.0-53.0) % MCHC (31.0-37.0) g/dL RDW (11.5-15.5) % Plt Count (150-450) k/uL Neutrophils # (1.3-7.7) k/uL Monocytes # (0-1.0) k/uL APTT 32.8 H (22.0-30.0) sec Carbon Dioxide (22-30) mmol/L BUN (9-20) mg/dL Creatinine (0.66-1.25) mg/dL Glucose (74-99) mg/dL POC Glucose (mg/dL) 129 H (75-99) mg/dL Calcium (8.4-10.2) mg/dL Ionized Calcium Greg 4.1 L (4.5-5.3) mg/dL Phosphorus 11.4 H* (2.5-4.5) mg/dL Magnesium 2.5 H (1.6-2.3) mg/dL Alkaline Phosphatase (38-126) U/L Total Protein (6.3-8.2) g/dL Albumin 2.6 L (3.5-5.0) g/dL Triglycerides 260 H (<150) mg/dL 03/16/20 03/17/20 03/17/20 Range/Units 23:40 06:05 06:22 WBC 27.5 H (3.8-10.6) k/uL RBC 2.82 L (4.30-5.90) m/uL Hgb 7.8 L (13.0-17.5) gm/dL Hct 26.1 L (39.0-53.0) % MCHC 29.7 L (31.0-37.0) g/dL RDW 17.6 H (11.5-15.5) % Plt Count 492 H (150-450) k/uL Neutrophils # 23.0 H (1.3-7.7) k/uL Monocytes # 2.6 H (0-1.0) k/uL APTT (22.0-30.0) sec Carbon Dioxide (22-30) mmol/L BUN (9-20) mg/dL Creatinine (0.66-1.25) mg/dL Glucose (74-99) mg/dL POC Glucose (mg/dL) 120 H 122 H (75-99) mg/dL Calcium (8.4-10.2) mg/dL Ionized Calcium Greg (4.5-5.3) mg/dL Phosphorus (2.5-4.5) mg/dL Magnesium (1.6-2.3) mg/dL Alkaline Phosphatase (38-126) U/L Total Protein (6.3-8.2) g/dL Albumin (3.5-5.0) g/dL Triglycerides (<150) mg/dL 03/17/20 03/17/20 03/17/20 Range/Units 06:22 06:22 11:46 WBC (3.8-10.6) k/uL RBC (4.30-5.90) m/uL Hgb (13.0-17.5) gm/dL Hct (39.0-53.0) % MCHC (31.0-37.0) g/dL RDW (11.5-15.5) % Plt Count (150-450) k/uL Neutrophils # (1.3-7.7) k/uL Monocytes # (0-1.0) k/uL APTT 39.2 H (22.0-30.0) sec Carbon Dioxide 21 L (22-30) mmol/L BUN 96 H (9-20) mg/dL Creatinine 3.31 H (0.66-1.25) mg/dL Glucose 118 H (74-99) mg/dL POC Glucose (mg/dL) 103 H (75-99) mg/dL Calcium 7.9 L (8.4-10.2) mg/dL Ionized Calcium Greg 4.2 L (4.5-5.3) mg/dL Phosphorus 10.5 H* (2.5-4.5) mg/dL Magnesium 2.4 H (1.6-2.3) mg/dL Alkaline Phosphatase 174 H (38-126) U/L Total Protein 5.1 L (6.3-8.2) g/dL Albumin 2.6 L (3.5-5.0) g/dL Triglycerides (<150) mg/dL Microbiology - Last 24 Hours (Table) 03/15/20 09:40 Blood Culture - Preliminary Blood No Growth after 48 hours 03/15/20 09:53 Blood Culture - Preliminary Blood No Growth after 48 hours 03/12/20 09:30 Anaerobic Culture - Final Neck 03/12/20 09:30 Gram Stain - Final Neck Wound Culture - Final Escherichia coli Selina krusei Selina albicans 03/11/20 17:55 Blood Culture - Preliminary Blood No Growth after 120 hours 03/15/20 21:21 Gram Stain - Preliminary Sputum Sputum Culture - Preliminary Assessment and Plan Assessment: Impression: Status post fall off a ladder with trauma to chest and abdomen. 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 Traumatic left-sided rib fractures with 30% pneumothorax requiring chest tube placement. Has been removed already. Acute hemorrhagic shock on presentation. Acute blood loss anemia and patient received a total of 5 units of packed RBCs since admission. Acute hypoxic respiratory failure secondary to extreme agitation and delirium tremors requiring sedation, and detoxification, Chronic neck pain, patient is maintained chronically on MS Contin, remains on morphine drip. Coronary artery disease and previous CABG, echocardiogram is unremarkable. Dyslipidemia Paroxysmal atrial fibrillation , remains on amiodarone. This will be changed to oral amiodarone after PEG tube placement. Failure to wean, status post tracheostomy on 02/25/20. Toxic metabolic encephalopathy, acute. Status post bronchoscopy and lavage of the right upper lobe done on 02/29/20. Nondiagnostic.. C. difficile colitis, treated with oral vancomycin, resolved. Acute kidney injury, requiring hemodialysis. Suspect critical illness polyneuropathy. Ileus versus small bowel obstruction. Improved clinically. Hence the patient is scheduled to have a PEG tube placement today. Recommendation: Continue ventilatory support, Continue hemodynamic support. Presently off norepinephrine. Resume enteral feeding via PEG tomorrow if the PEG is placed today.. Continue antibiotics and antifungal therapy as per infectious disease on the case. Continue hemodialysis for acute kidney injury. Continue to monitor mental status on a daily basis. May start weaning trials and physiologic pressure support and CPAP tomorrow. No changes in the vent settings today. Again will consider pressure support and CPAP tomorrow. Daily assessment of mental status off sedation Overall prognosis remains poor and guarded. Discussed his condition with yesterday. Critical care time is 32 minutes Time with Patient: Greater than 30
[2020-03-17] MEDS ORDERED: PROPOFOL 10 MG/ML 20 ML VIAL IV ONE (14:18)
[2020-03-17] MEDS ORDERED: IV FLUID CONTINUATION 1,000 ML IV ONE (14:23)
[2020-03-17] MEDS ORDERED: LIDOCAINE 2% INJ 20 MG/ML SQ ONE ×2 (14:25→14:33)
--- NOTE | 2020-03-17 15:50 | IR ---
EXAMINATION TYPE: IR cvc insert central tunneled DATE OF EXAM: 03/16/2020 COMPARISON: NONE HISTORY: Fluoroscopy time. Fluoroscopy was provided to the referring clinician.
--- NOTE | 2020-03-17 16:48 | P.OP ---
Date of Procedure: 03/17/20 Preoperative Diagnosis: Malnutrition Postoperative Diagnosis: Malnutrition Procedure(s) Performed: EGD with PEG tube placement Anesthesia: MAC Surgeon: Russell Ivy Estimated Blood Loss (ml): 5 Pathology: none sent Condition: stable Disposition: PACU Description of Procedure: The patient's placed on the bed in supine position. He received IV sedation. The gastroscope placed oropharynx and passed in the esophagus into the stomach. Scope was then placed through the pylorus. The first and second portion duodenum appeared normal. Scope was brought back and then a suitable anterior light reflux was seen in the anterior abdominal wall just below the xiphoid. This area was anesthetized 1% local Xylocaine. The needles in place and stomach under direct visualization. The needles and snared and the wire was placed through this needle. The wire was inserted brought the oropharynx. The PEG tube placed overtop the wire and brought down to the stomach. The PEG tube was secured at the 3 cm colin. The one-piece bolster was used to secure the PEG tube. Patient top procedure well and he was sent to recovery in stable condition.
[2020-03-17] MEDS: SODIUM CHLORIDE 0.9% 1,000 ML IV SCH (17:17)
[2020-03-17 17:52] LABS: Glucose,Whole Blood 132 mg/dL (75-99)
[2020-03-17] MEDS: [UNRECOGNIZED DRUG - REMARK] IV SCH ×6 (20:24)
--- NOTE | 2020-03-17 20:50 | P.PN ---
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 He remains on a mechanical ventilator. Chest x-ray findings are unchanged; patient has some low-grade fever and a white cell count is at 19.0. Diarrhea is not present. He is stooling. Surgical site is dry clean and intact. He has a PICC line. The blood cultures of been sent. The patient was placed on a combination of daptomycin and Diflucan. He remains on oral vancomycin and IV Flagylregarding his C. diff colitis. His cardiac rhythm is sinu; remains on Eliquis for now. Tolerating enteral feeding for nutritional support. NG tube is in place. PEG tube is to follow. 03/13/2020, the patient is seen and evaluated in ICU; currently awake and following commands; remains on a mechanical ventilator. Same vent settings. He is undergoing another session of dialysis. He is having a low-grade fever. Sepsis workup still in progress. Blood cultures of been sent. Results are still pending for now. Meanwhile, the patient's currently covered with a combination of Eraxis, daptomycin, and he is also on IV Flagyl and oral van comycin regarding C. diff colitis. His chest x-ray is unchanged. He is cardiac rhythm is atrial fibrillation. He is receiving enteral feeding for nutritional support. Plan is for possible PEG tube placement 03/14/2020 Patient had episodes of emesis with possible aspiration and became tachypneic and restless; Precedex if needed to control agitation; tube feeds held. Affect some of the abdomen was done that shows possible small bowel obstruction, partial and the patient has fecal stasis/infection the right lower quadrant area; being treated for C. diff colitis with a combination of vancomycin and IV Flagyl. The chest x-ray from today shows further clearing of the bilateral pulmonary infiltrates and this was done before the aspiration episode. No hemodialysis will be done today. His blood gases showed a pH of 7.5 with a pCO2 of 35 and pO2 of 92. Is still having episodic fever. The sputum around the tracheostomy tube was positive for gram-negative and I added the troponin. ID is on the case and the patient is taking a combination of daptomycin and Eraxis. He is on no Cardizem drip for now. . 03/15/2020 Patient is currently lying in the bed seems to be agitated and trying to get out of bed. Patient was extubated. Patient did have 2 episodes of vomiting and may have aspirated. Tube feedings are on hold. Patient does have distended abdo men. Patient was continued on vancomycin by mouth which was changed to metronidazole currently. Patient is on low-dose norepinephrine drip as result. Patient underwent hemodialysis today. Patient is afebrile today. Currently being continued on antibiotics in the form of meropenem, metronidazole and also vancomycin by mouth and Eraxis. ID and pulmonary and general surgery is on board. Discussed with his at bedside. Current medications reviewed. Objective - Vital Signs Vital signs: Vital Signs Temp 98.3 F 03/15/20 16:00 Pulse 98 03/15/20 16:15 Resp 29 H 03/15/20 16:15 BP 139/68 03/15/20 16:15 Pulse Ox 99 03/15/20 16:00 Intake & Output 03/14/20 03/15/20 03/15/20 18:59 06:59 18:59 Intake Total 446.813 557.217 417.742 Output Total 227 956 4781 Balance 221.813 262.217 -3182.258 Weight 88.5 kg 85.5 kg Intake: IV 240 240 160 Sodium Chloride 0.9% 1, 240 240 160 000 ml @ 20 mls/hr IV . Q24H [facility] Rx#:[id number] Intake, IV Titration 176.813 317.217 257.742 Amount Dexmedetomidine/0.9% NaCl 65.896 25.740 (Pmx) 400 mcg In Empty Bag 1 bag @ Titrate IV . Q0M [facility] Rx#:[id number] Diltiazem 125 mg In 110.917 29.084 Sodium Chloride 0.9% 100 ml @ 5 MG/HR 5 mls/hr IV .Q24H [facility] Rx#:[id number] Norepinephrine 32 mg In 10.525 41.464 Sodium Chloride 0.9% 218 ml @ 0.14 MCG/KG/MIN 6. 759 mls/hr IV .Q24H [facility] Rx#:[id number] propofoL 1,000 mg In 251.868 216.278 Empty Bag 1 bag @ Titrate IV .Q0M [facility] Rx#: [id number] Tube Feeding 0 Other 30 Output: Gastric Drainage 100 Urine 225 195 100 Hemodialysis 3500 Other: Voiding Method Indwelling Catheter Indwelling Catheter Indwelling Catheter # Bowel Movements 1 ABP, PAP, CO, CI - Last Documented Arterial Blood Pressure 129/50 - Labs CBC & Chem 7: 03/17/20 06:22 03/17/20 06:22 Labs: Abnormal Lab Results - Last 24 Hours (Table) 03/14/20 03/14/20 03/14/20 Range/Units 18:05 20:26 21:19 WBC 32.2 H (3.8-10.6) k/uL RBC 2.98 L (4.30-5.90) m/uL Hgb 8.1 L (13.0-17.5) gm/dL Hct 28.0 L (39.0-53.0) % MCHC 29.1 L (31.0-37.0) g/dL RDW 17.7 H (11.5-15.5) % Plt Count (150-450) k/uL Neutrophils # 30.3 H (1.3-7.7) k/uL Neutrophils # (Manual) (1.3-7.7) k/uL Lymphocytes # 0.7 L (1.0-4.8) k/uL Lymphocytes # (Manual) (1.0-4.8) k/uL Monocytes # (Manual) (0-1.0) k/uL ABG pO2 61 L (83-108) mmHg ABG Total CO2 25 H (19-24) mmol/L ABG O2 Saturation 89.6 L (94-97) % BUN (9-20) mg/dL Creatinine (0.66-1.25) mg/dL Glucose (74-99) mg/dL POC Glucose (mg/dL) 192 H (75-99) mg/dL Calcium (8.4-10.2) mg/dL Alkaline Phosphatase (38-126) U/L Total Protein (6.3-8.2) g/dL Albumin (3.5-5.0) g/dL 03/14/20 03/14/20 03/15/20 Range/Units 21:19 23:25 04:52 WBC (3.8-10.6) k/uL RBC (4.30-5.90) m/uL Hgb (13.0-17.5) gm/dL Hct (39.0-53.0) % MCHC (31.0-37.0) g/dL RDW (11.5-15.5) % Plt Count (150-450) k/uL Neutrophils # (1.3-7.7) k/uL Neutrophils # (Manual) (1.3-7.7) k/uL Lymphocytes # (1.0-4.8) k/uL Lymphocytes # (Manual) (1.0-4.8) k/uL Monocytes # (Manual) (0-1.0) k/uL ABG pO2 385 H (83-108) mmHg ABG Total CO2 25 H (19-24) mmol/L ABG O2 Saturation 100.0 H (94-97) % BUN 78 H (9-20) mg/dL Creatinine 3.56 H (0.66-1.25) mg/dL Glucose 172 H (74-99) mg/dL POC Glucose (mg/dL) 172 H (75-99) mg/dL Calcium 8.0 L (8.4-10.2) mg/dL Alkaline Phosphatase 206 H (38-126) U/L Total Protein 5.1 L (6.3-8.2) g/dL Albumin 2.5 L (3.5-5.0) g/dL 03/15/20 03/15/20 03/15/20 Range/Units 05:50 05:50 05:52 WBC 32.8 H (3.8-10.6) k/uL RBC 2.92 L (4.30-5.90) m/uL Hgb 8.0 L (13.0-17.5) gm/dL Hct 27.8 L (39.0-53.0) % MCHC 28.8 L (31.0-37.0) g/dL RDW 18.1 H (11.5-15.5) % Plt Count 457 H (150-450) k/uL Neutrophils # 30.6 H (1.3-7.7) k/uL Neutrophils # (Manual) (1.3-7.7) k/uL Lymphocytes # (1.0-4.8) k/uL Lymphocytes # (Manual) (1.0-4.8) k/uL Monocytes # (Manual) (0-1.0) k/uL ABG pO2 (83-108) mmHg ABG Total CO2 (19-24) mmol/L ABG O2 Saturation (94-97) % BUN 88 H (9-20) mg/dL Creatinine 3.70 H (0.66-1.25) mg/dL Glucose 166 H (74-99) mg/dL POC Glucose (mg/dL) 173 H (75-99) mg/dL Calcium 7.8 L (8.4-10.2) mg/dL Alkaline Phosphatase (38-126) U/L Total Protein (6.3-8.2) g/dL Albumin (3.5-5.0) g/dL 03/15/20 03/15/20 03/15/20 Range/Units 11:20 11:36 12:39 WBC 43.5 H (3.8-10.6) k/uL RBC 3.62 L (4.30-5.90) m/uL Hgb 9.9 L D (13.0-17.5) gm/dL Hct 33.8 L (39.0-53.0) % MCHC 29.2 L (31.0-37.0) g/dL RDW 17.6 H (11.5-15.5) % Plt Count (150-450) k/uL Neutrophils # (1.3-7.7) k/uL Neutrophils # (Manual) 40.89 H (1.3-7.7) k/uL Lymphocytes # (1.0-4.8) k/uL Lymphocytes # (Manual) 0.44 L (1.0-4.8) k/uL Monocytes # (Manual) 2.18 H (0-1.0) k/uL ABG pO2 (83-108) mmHg ABG Total CO2 (19-24) mmol/L ABG O2 Saturation (94-97) % BUN (9-20) mg/dL Creatinine (0.66-1.25) mg/dL Glucose (74-99) mg/dL POC Glucose (mg/dL) 130 H 153 H (75-99) mg/dL Calcium (8.4-10.2) mg/dL Alkaline Phosphatase (38-126) U/L Total Protein (6.3-8.2) g/dL Albumin (3.5-5.0) g/dL Microbiology - Last 24 Hours (Table) 03/12/20 09:30 Anaerobic Culture - Preliminary Neck 03/12/20 09:30 Gram Stain - Preliminary Neck Wound Culture - Preliminary Escherichia coli Yeast species 03/12/20 17:22 Gram Stain - Final Sputum Sputum Culture - Final Selina albicans Selina sp,not albicans/galbr 02/29/20 11:00 Fungal Culture - Preliminary Bronchial Washings - Right 03/02/20 08:30 Fungal Culture - Preliminary Cerebral Spinal Fluid 03/11/20 17:55 Blood Culture - Preliminary Blood No Growth after 72 hours Assessment and Plan Assessment: 1. 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 2. Status post tracheostomy for respiratory failure 3. Status post fall off a ladder with, to chest and abdomen 4. Left-sided pneumothorax has chest tube in place 5. Multiple left-sided rib fractures 6. Alcohol intoxication 7. Acute hypoxic ventilatory dependent respiratory failure. 8. Chronic pain medication 9. Atrial fibrillation with rapid ventricular response. Patient now on Eliquis 10. C. diff colitis 11. Acute kidney injury . Followed closely by nephrology. 12. Acute blood loss anemia status post blood transfusion PLAN: -If patient continues to wake up and do well, General surgery is planning for PEG tube placement.. Continue to monitor. -tube feedings on hold -Continue ICU management -Continue oral vancomycin added flagyl -Hemodialysis per nephrology -lovenox for DVT prophylaxis Time with Patient: Greater than 30
[2020-03-17] MEDS: TAMSULOSIN 0.4 MG CAP.ER.24H PO SCH (21:26)
[2020-03-17] MEDS: FINASTERIDE 5 MG TAB PO SCH (21:27)
[2020-03-17] MEDS: AMIODARONE 200 MG TAB PO SCH (21:27)
[2020-03-17] MEDS: QUEtiapine 100 MG TAB PO SCH (21:27)
--- NOTE | 2020-03-17 22:36 | P.PN ---
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 He remains on a mechanical ventilator. Chest x-ray findings are unchanged; patient has some low-grade fever and a white cell count is at 19.0. Diarrhea is not present. He is stooling. Surgical site is dry clean and intact. He has a PICC line. The blood cultures of been sent. The patient was placed on a combination of daptomycin and Diflucan. He remains on oral vancomycin and IV Flagylregarding his C. diff colitis. His cardiac rhythm is sinu; remains on Eliquis for now. Tolerating enteral feeding for nutritional support. NG tube is in place. PEG tube is to follow. 03/13/2020, the patient is seen and evaluated in ICU; currently awake and following commands; remains on a mechanical ventilator. Same vent settings. He is undergoing another session of dialysis. He is having a low-grade fever. Sepsis workup still in progress. Blood cultures of been sent. Results are still pending for now. Meanwhile, the patient's currently covered with a combination of Eraxis, daptomycin, and he is also on IV Flagyl and oral van comycin regarding C. diff colitis. His chest x-ray is unchanged. He is cardiac rhythm is atrial fibrillation. He is receiving enteral feeding for nutritional support. Plan is for possible PEG tube placement 03/14/2020 Patient had episodes of emesis with possible aspiration and became tachypneic and restless; Precedex if needed to control agitation; tube feeds held. Affect some of the abdomen was done that shows possible small bowel obstruction, partial and the patient has fecal stasis/infection the right lower quadrant area; being treated for C. diff colitis with a combination of vancomycin and IV Flagyl. The chest x-ray from today shows further clearing of the bilateral pulmonary infiltrates and this was done before the aspiration episode. No hemodialysis will be done today. His blood gases showed a pH of 7.5 with a pCO2 of 35 and pO2 of 92. Is still having episodic fever. The sputum around the tracheostomy tube was positive for gram-negative and I added the troponin. ID is on the case and the patient is taking a combination of daptomycin and Eraxis. He is on no Cardizem drip for now. . 03/15/2020 Patient is currently lying in the bed seems to be agitated and trying to get out of bed. Patient was extubated. Patient did have 2 episodes of vomiting and may have aspirated. Tube feedings are on hold. Patient does have distended abdo men. Patient was continued on vancomycin by mouth which was changed to metronidazole currently. Patient is on low-dose norepinephrine drip as result. Patient underwent hemodialysis today. Patient is afebrile today. Currently being continued on antibiotics in the form of meropenem, metronidazole and also vancomycin by mouth and Eraxis. ID and pulmonary and general surgery is on board. Discussed with his at bedside. 03/16/2020 Patient is currently lying in the bed comfortably. Less agitation and mentation did improve compared to yesterday. Patient is status post trach placement and assist-control. Enteral feeding is on hold due to abdominal distention and ileus. General surgery is planning for PEG tube placement tomorrow. Currently being continued antibiotics in the form of Flagyl and oral vancomycin is on hold. Chest x-ray showed multiple left-sided rib fractures with left lower lobe consolidation and small effusion. Abdominal x-ray showed nonspecific abdominal with persistent distention of the bowel loops greater in the right hemiabdomen unchanged compared to yesterday. Laboratory data showed WBC 33.3, hemoglobin 7.7 and platelets 438 BUN 76 and creatinine 2.66 Current medications reviewed. Objective - Vital Signs Vital signs: Vital Signs Temp 98.4 F 03/16/20 12:00 Pulse 80 03/16/20 14:00 Resp 18 03/16/20 14:00 BP 130/67 03/16/20 14:00 Pulse Ox 98 03/16/20 14:00 Intake & Output 03/15/20 03/16/20 03/16/20 18:59 06:59 18:59 Intake Total 507.377 552.141 948.309 Output Total 3635 300 410 Balance -3127.623 252.141 538.309 Weight 80.9 kg 80.9 kg Intake: IV 220 20 140 Sodium Chloride 0.9% 1 220 20 140 000 ml @ 20 mls/hr IV . Q24H [facility] Rx#:[id number] Intake, IV Titration 287.377 532.141 808.309 Amount Amiodarone 300 mg In 250 250 Dextrose 5% in Water 250 ml @ 0.5 MG/MIN 25 mls/hr IV .Q10H [facility] Rx#: [id number] Anidulafungin 100 mg In 100 Sodium Chloride 0.9% 100 ml @ 84 mls/hr IVPB DAILY [facility] Rx#:[id number] Heparin Sod,Pork in 0.45% 206.667 NaCl 25,000 unit In 0.45 % NaCl 1 250ml.bag @ 11. 696 UNITS/KG/HR 10 mls/hr IV .Q24H [facility] Rx#: [id number] Meropenem 1 gm In Sodium 100 Chloride 0.9% 100 ml @ 33 .3 mls/hr IVPB Q12H [facility] Rx#:[id number] Norepinephrine 32 mg In 45.278 18.016 Sodium Chloride 0.9% 218 ml @ 0.14 MCG/KG/MIN 6. 759 mls/hr IV .Q24H [facility] Rx#:[id number] metroNIDAZOLE-NS PMX 500 100 mg In Saline 1 100ml.bag @ 100 mls/hr IVPB Q8HR [facility] Rx#:[id number] propofoL 1,000 mg In 242.099 264.125 51.642 Empty Bag 1 bag @ Titrate IV .Q0M [facility] Rx#: [id number] Output: Gastric Drainage 100 Urine 135 200 410 Hemodialysis 3500 Other: Voiding Method Indwelling Catheter Indwelling Catheter Indwelling Catheter ABP, PAP, CO, CI - Last Documented Arterial Blood Pressure 129/50 - Exam PHYSICAL EXAMINATION: Patient is awake and alert but agitated. .. HEENT: Normocephalic. Neck is supple. Pupils reactive. Nostrils clear. Oral c avity is moist. Ears reveal no drainage. Neck reveals no JVD, carotid bruits, or thyromegaly. CHEST EXAMINATION: Trachea is central. Tracheal tube in place. On mechanical ventilator.Symmetrical expansion. Left basilar crackles and diminished throughout.. CARDIAC: Normal S1, S2 with no gallops. No murmurs ABDOMEN: Soft.Distended Bowel sounds present. No organomegaly. No abdominal bruits. Extremities: 2+ edema. No clubbing or cyanosis Neurologically awake, alert with well-coordinated movements. No gross focal deficits noted Skin: No rash or skin lesions. Psychiatric: Noncooperative. Musculoskeletal: No joint swelling or deformity. - Labs CBC & Chem 7: 03/17/20 06:22 03/17/20 06:22 Labs: Abnormal Lab Results - Last 24 Hours (Table) 03/15/20 03/15/20 03/15/20 Range/Units 18:00 18:30 23:22 WBC (3.8-10.6) k/uL RBC (4.30-5.90) m/uL Hgb (13.0-17.5) gm/dL Hct (39.0-53.0) % MCHC (31.0-37.0) g/dL RDW (11.5-15.5) % Neutrophils # (1.3-7.7) k/uL Monocytes # (0-1.0) k/uL APTT 55.8 H (22.0-30.0) sec ABG pCO2 (35-45) mmHg ABG pO2 (83-108) mmHg ABG O2 Saturation (94-97) % BUN (9-20) mg/dL Creatinine (0.66-1.25) mg/dL Glucose (74-99) mg/dL POC Glucose (mg/dL) 173 H 170 H (75-99) mg/dL Calcium (8.4-10.2) mg/dL 03/16/20 03/16/20 03/16/20 Range/Units 00:20 06:04 06:24 WBC 33.3 H (3.8-10.6) k/uL RBC 2.80 L (4.30-5.90) m/uL Hgb 7.7 L D (13.0-17.5) gm/dL Hct 26.4 L (39.0-53.0) % MCHC 29.0 L (31.0-37.0) g/dL RDW 17.9 H (11.5-15.5) % Neutrophils # 29.8 H (1.3-7.7) k/uL Monocytes # 2.0 H (0-1.0) k/uL APTT (22.0-30.0) sec ABG pCO2 (35-45) mmHg ABG pO2 (83-108) mmHg ABG O2 Saturation (94-97) % BUN (9-20) mg/dL Creatinine (0.66-1.25) mg/dL Glucose (74-99) mg/dL POC Glucose (mg/dL) 167 H 158 H (75-99) mg/dL Calcium (8.4-10.2) mg/dL 03/16/20 03/16/20 03/16/20 Range/Units 06:24 06:35 08:05 WBC (3.8-10.6) k/uL RBC (4.30-5.90) m/uL Hgb (13.0-17.5) gm/dL Hct (39.0-53.0) % MCHC (31.0-37.0) g/dL RDW (11.5-15.5) % Neutrophils # (1.3-7.7) k/uL Monocytes # (0-1.0) k/uL APTT (22.0-30.0) sec ABG pCO2 33 L (35-45) mmHg ABG pO2 133 H (83-108) mmHg ABG O2 Saturation 99.2 H (94-97) % BUN 76 H (9-20) mg/dL Creatinine 2.66 H (0.66-1.25) mg/dL Glucose 148 H (74-99) mg/dL POC Glucose (mg/dL) 158 H (75-99) mg/dL Calcium 7.6 L (8.4-10.2) mg/dL 03/16/20 Range/Units 11:29 WBC (3.8-10.6) k/uL RBC (4.30-5.90) m/uL Hgb (13.0-17.5) gm/dL Hct (39.0-53.0) % MCHC (31.0-37.0) g/dL RDW (11.5-15.5) % Neutrophils # (1.3-7.7) k/uL Monocytes # (0-1.0) k/uL APTT (22.0-30.0) sec ABG pCO2 (35-45) mmHg ABG pO2 (83-108) mmHg ABG O2 Saturation (94-97) % BUN (9-20) mg/dL Creatinine (0.66-1.25) mg/dL Glucose (74-99) mg/dL POC Glucose (mg/dL) 132 H (75-99) mg/dL Calcium (8.4-10.2) mg/dL Microbiology - Last 24 Hours (Table) 03/15/20 21:21 Gram Stain - Preliminary Sputum Sputum Culture - Preliminary 03/12/20 09:30 Gram Stain - Final Neck Wound Culture - Preliminary Escherichia coli Selina krusei Selina albicans 03/15/20 09:40 Blood Culture - Preliminary Blood No Growth after 24 hours 03/15/20 09:53 Blood Culture - Preliminary Blood No Growth after 24 hours 03/02/20 08:30 Acid Fast Bacilli Smear - Final Cerebral Spinal Fluid Acid Fast Bacilli Culture - Preliminary 03/11/20 17:55 Blood Culture - Preliminary Blood No Growth after 96 hours 03/12/20 09:30 Anaerobic Culture - Preliminary Neck 03/12/20 17:22 Gram Stain - Final Sputum Sputum Culture - Final Selina albicans Selina sp,not albicans/galbr Assessment and Plan Assessment: 1. 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 2. Status post tracheostomy for respiratory failure 3. Status post fall off a ladder with, to chest and abdomen 4. Left-sided pneumothorax has chest tube in place 5. Multiple left-sided rib fractures 6. Alcohol intoxication 7. Acute hypoxic ventilatory dependent respiratory failure. 8. Chronic pain medication 9. Atrial fibrillation with rapid ventricular response. Patient now on Eliquis 10. C. diff colitis 11. Acute kidney injury . Followed closely by nephrology. 12. Acute blood loss anemia status post blood transfusion PLAN: -If patient continues to wake up and do well, General surgery is planning for PEG tube placement.. Continue to monitor. -tube feedings on hold -Continue ICU management -Continue oral vancomycin added flagyl -Hemodialysis per nephrology -lovenox for DVT prophylaxis Time with Patient: Greater than 30
--- NOTE | 2020-03-17 22:37 | PN ---
PROGRESS NOTE DATE OF SERVICE: 03/17/2020 REASON FOR FOLLOWUP: 1. C difficile colitis. 2. Question of aspiration pneumonitis. 3. Oropharyngeal candidiasis. INTERVAL HISTORY: The patient was seen on rounds this morning. The patient has been afebrile. No fever has been recorded in the last 72 hours. The patient is hemodynamically stable, not on any pressor support. FiO2 is currently stable at 35%. Tolerating his tube feeds. Diarrhea seems to have resolved per the nursing staff. PHYSICAL EXAMINATION: Blood pressure 156/77, pulse of 87, temperature of 98. He is 97% on 35% FiO2. General description is an elderly male lying in bed in no distress. RESPIRATORY SYSTEM: Unlabored breathing with decreased breath sounds at the base. No wheeze. HEART: S1, S2. Regular rate and rhythm. ABDOMEN: Soft. No tenderness. LABS: Hemoglobin is 7.8, white count 27.5. BUN of 96, creatinine 3.31. Repeat sputum showing yeast species. DIAGNOSTIC IMPRESSION AND PLAN: 1. Patient with an elevated white count which is multifactorial in this patient who did have Clostridium difficile colitis. Did have a problem with the ET and vomiting and possible component of aspiration pneumonitis. The patient is currently covered with Rocephin and Flagyl; to continue on his oral restart his oral vancomycin. 2. Patient with oropharyngeal candidiasis. Continue with the Eraxis and monitor his clinical course closely. MMODL / IJN: [id number] /
--- NOTE | 2020-03-17 23:05 | P.PN ---
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 He remains on a mechanical ventilator. Chest x-ray findings are unchanged; patient has some low-grade fever and a white cell count is at 19.0. Diarrhea is not present. He is stooling. Surgical site is dry clean and intact. He has a PICC line. The blood cultures of been sent. The patient was placed on a combination of daptomycin and Diflucan. He remains on oral vancomycin and IV Flagylregarding his C. diff colitis. His cardiac rhythm is sinu; remains on Eliquis for now. Tolerating enteral feeding for nutritional support. NG tube is in place. PEG tube is to follow. 03/13/2020, the patient is seen and evaluated in ICU; currently awake and following commands; remains on a mechanical ventilator. Same vent settings. He is undergoing another session of dialysis. He is having a low-grade fever. Sepsis workup still in progress. Blood cultures of been sent. Results are still pending for now. Meanwhile, the patient's currently covered with a combination of Eraxis, daptomycin, and he is also on IV Flagyl and oral van comycin regarding C. diff colitis. His chest x-ray is unchanged. He is cardiac rhythm is atrial fibrillation. He is receiving enteral feeding for nutritional support. Plan is for possible PEG tube placement 03/14/2020 Patient had episodes of emesis with possible aspiration and became tachypneic and restless; Precedex if needed to control agitation; tube feeds held. Affect some of the abdomen was done that shows possible small bowel obstruction, partial and the patient has fecal stasis/infection the right lower quadrant area; being treated for C. diff colitis with a combination of vancomycin and IV Flagyl. The chest x-ray from today shows further clearing of the bilateral pulmonary infiltrates and this was done before the aspiration episode. No hemodialysis will be done today. His blood gases showed a pH of 7.5 with a pCO2 of 35 and pO2 of 92. Is still having episodic fever. The sputum around the tracheostomy tube was positive for gram-negative and I added the troponin. ID is on the case and the patient is taking a combination of daptomycin and Eraxis. He is on no Cardizem drip for now. . 03/15/2020 Patient is currently lying in the bed seems to be agitated and trying to get out of bed. Patient was extubated. Patient did have 2 episodes of vomiting and may have aspirated. Tube feedings are on hold. Patient does have distended abdo men. Patient was continued on vancomycin by mouth which was changed to metronidazole currently. Patient is on low-dose norepinephrine drip as result. Patient underwent hemodialysis today. Patient is afebrile today. Currently being continued on antibiotics in the form of meropenem, metronidazole and also vancomycin by mouth and Eraxis. ID and pulmonary and general surgery is on board. Discussed with his at bedside. 03/16/2020 Patient is currently lying in the bed comfortably. Less agitation and mentation did improve compared to yesterday. Patient is status post trach placement and assist-control. Enteral feeding is on hold due to abdominal distention and ileus. General surgery is planning for PEG tube placement tomorrow. Currently being continued antibiotics in the form of Flagyl and oral vancomycin is on hold. Chest x-ray showed multiple left-sided rib fractures with left lower lobe consolidation and small effusion. Abdominal x-ray showed nonspecific abdominal with persistent distention of the bowel loops greater in the right hemiabdomen unchanged compared to yesterday. Laboratory data showed WBC 33.3, hemoglobin 7.7 and platelets 438 BUN 76 and creatinine 2.66 03/17/2020 Patient is currently lying in the bed comfortably. Awake and alert but could not communicate. Remains tracheal tube and assist control. Patient is status post PEG tube placement today. Patient was started on amiodarone. Patient did have bowel movement last night and abdominal distention is improved. NG tube has been discontinued after PEG tube placement. Cultures are negative so far. Chest x-ray showed volume overload versus mild pulmonary edema. Laboratory data showed WBC improved to 27.5. Hemoglobin 7.8 and platelets 492. BUN 96 and creatinine went up to 3.31. Phosphorus 10.5 calcium 7.9. Pulmonary and general surgery is on board. Current medications reviewed. Objective - Vital Signs Vital signs: Vital Signs Temp 98.9 F 03/17/20 16:00 Pulse 87 03/17/20 19:00 Resp 22 03/17/20 19:00 BP 156/77 03/17/20 19:00 Pulse Ox 97 03/17/20 19:00 Intake & Output 03/17/20 03/17/20 03/18/20 06:59 18:59 06:59 Intake Total 9775.857 3347.353 126.484 Output Total 465 3940 40 Balance 619.151 -2627.647 86.484 Weight 80.6 kg Intake: IV 440 1090 65 Anidulafungin 100 mg In 100 Sodium Chloride 0.9% 100 ml @ 84 mls/hr IVPB DAILY [facility] Rx#:[id number] Meropenem 1 gm In Sodium 100 100 Chloride 0.9% 100 ml @ 33 .3 mls/hr IVPB Q12H [facility] Rx#:[id number] Sodium Acetate 30 meq 90 Potassium Chloride 30 meq Calcium Gluconate 1 gm Mvi, Adult No.4 with Vit K 10 ml Trace (Conc-1Ml/ Dose) 1 ml In Amino Acid 5%-D15w 1,000 ml @ 30 mls /hr IV .Q24H [facility] Rx#: [id number] Sodium Acetate 30 meq 360 45 Potassium Chloride 30 meq Calcium Gluconate 1 gm Mvi, Adult No.4 with Vit K 10 ml Trace (Conc-1Ml/ Dose) 1 ml In Amino Acid 5%-D15w 1,000 ml @ 45 mls /hr IV .[id number] [facility] Rx#: [id number] Sodium Chloride 0.9% 1, 240 240 20 000 ml @ 20 mls/hr IV . Q24H [facility] Rx#:[id number] metroNIDAZOLE-NS PMX 500 100 200 mg In Saline 1 100ml.bag @ 100 mls/hr IVPB Q8HR [facility] Rx#:[id number] Intake, IV Titration 344.151 192.353 61.484 Amount Amiodarone 300 mg In 212.5 Dextrose 5% in Water 250 ml @ 0.5 MG/MIN 25 mls/hr IV .Q10H [facility] Rx#: [id number] Heparin Sod,Pork in 0.45% 57.667 92.353 NaCl 25,000 unit In 0.45 % NaCl 1 250ml.bag @ 11. 696 UNITS/KG/HR 10 mls/hr IV .Q24H [facility] Rx#: [id number] propofoL 1,000 mg In 73.984 100.000 61.484 Empty Bag 1 bag @ 10 MCG/ KG/MIN 4.854 mls/hr IV . [id number] [facility] Rx#:[id number] Tube Feeding 0 0 TPN/PPN 300 30 Sodium Acetate 30 meq 300 30 Potassium Chloride 30 meq Calcium Gluconate 1 gm Mvi, Adult No.4 with Vit K 10 ml Trace (Conc-1Ml/ Dose) 1 ml In Amino Acid 5%-D15w 1,000 ml @ 30 mls /hr IV .Q24H [facility] Rx#: [id number] Output: Urine 465 440 40 Hemodialysis 3500 Other: Voiding Method Indwelling Catheter Indwelling Catheter ABP, PAP, CO, CI - Last Documented Arterial Blood Pressure 129/50 - Exam PHYSICAL EXAMINATION: Patient is awake and alert but agitated. .. HEENT: Normocephalic. Neck is supple. Pupils reactive. Nostrils clear. Oral cavity is moist. Ears reveal no drainage. Neck reveals no JVD, carotid bruits, or thyromegaly. CHEST EXAMINATION: Trachea is central. Tracheal tube in place. On mechanical ventilator.Symmetrical expansion. Left basilar crackles and diminished throughout.. CARDIAC: Normal S1, S2 with no gallops. No murmurs ABDOMEN: Soft. PEG +, Bowel sounds present. No organomegaly. No abdominal bruits. Extremities: 2+ edema. No clubbing or cyanosis Neurologically awake, alert with well-coordinated movements. No gross focal deficits noted Skin: No rash or skin lesions. Psychiatric: Noncooperative. Musculoskeletal: No joint swelling or deformity. - Labs CBC & Chem 7: 03/17/20 06:22 03/17/20 06:22 Labs: Abnormal Lab Results - Last 24 Hours (Table) 03/16/20 03/16/20 03/17/20 Range/Units 23:18 23:40 06:05 WBC (3.8-10.6) k/uL RBC (4.30-5.90) m/uL Hgb (13.0-17.5) gm/dL Hct (39.0-53.0) % MCHC (31.0-37.0) g/dL RDW (11.5-15.5) % Plt Count (150-450) k/uL Neutrophils # (1.3-7.7) k/uL Monocytes # (0-1.0) k/uL APTT 32.8 H (22.0-30.0) sec Carbon Dioxide (22-30) mmol/L BUN (9-20) mg/dL Creatinine (0.66-1.25) mg/dL Glucose (74-99) mg/dL POC Glucose (mg/dL) 120 H 122 H (75-99) mg/dL Calcium (8.4-10.2) mg/dL Ionized Calcium Greg (4.5-5.3) mg/dL Phosphorus (2.5-4.5) mg/dL Magnesium (1.6-2.3) mg/dL Alkaline Phosphatase (38-126) U/L Total Protein (6.3-8.2) g/dL Albumin (3.5-5.0) g/dL 03/17/20 03/17/20 03/17/20 Range/Units 06:22 06:22 06:22 WBC 27.5 H (3.8-10.6) k/uL RBC 2.82 L (4.30-5.90) m/uL Hgb 7.8 L (13.0-17.5) gm/dL Hct 26.1 L (39.0-53.0) % MCHC 29.7 L (31.0-37.0) g/dL RDW 17.6 H (11.5-15.5) % Plt Count 492 H (150-450) k/uL Neutrophils # 23.0 H (1.3-7.7) k/uL Monocytes # 2.6 H (0-1.0) k/uL APTT 39.2 H (22.0-30.0) sec Carbon Dioxide 21 L (22-30) mmol/L BUN 96 H (9-20) mg/dL Creatinine 3.31 H (0.66-1.25) mg/dL Glucose 118 H (74-99) mg/dL POC Glucose (mg/dL) (75-99) mg/dL Calcium 7.9 L (8.4-10.2) mg/dL Ionized Calcium Greg 4.2 L (4.5-5.3) mg/dL Phosphorus 10.5 H* (2.5-4.5) mg/dL Magnesium 2.4 H (1.6-2.3) mg/dL Alkaline Phosphatase 174 H (38-126) U/L Total Protein 5.1 L (6.3-8.2) g/dL Albumin 2.6 L (3.5-5.0) g/dL 03/17/20 03/17/20 Range/Units 11:46 17:50 WBC (3.8-10.6) k/uL RBC (4.30-5.90) m/uL Hgb (13.0-17.5) gm/dL Hct (39.0-53.0) % MCHC (31.0-37.0) g/dL RDW (11.5-15.5) % Plt Count (150-450) k/uL Neutrophils # (1.3-7.7) k/uL Monocytes # (0-1.0) k/uL APTT (22.0-30.0) sec Carbon Dioxide (22-30) mmol/L BUN (9-20) mg/dL Creatinine (0.66-1.25) mg/dL Glucose (74-99) mg/dL POC Glucose (mg/dL) 103 H 132 H (75-99) mg/dL Calcium (8.4-10.2) mg/dL Ionized Calcium Greg (4.5-5.3) mg/dL Phosphorus (2.5-4.5) mg/dL Magnesium (1.6-2.3) mg/dL Alkaline Phosphatase (38-126) U/L Total Protein (6.3-8.2) g/dL Albumin (3.5-5.0) g/dL Microbiology - Last 24 Hours (Table) 03/11/20 17:55 Blood Culture - Final Blood No Growth after 144 hours 03/15/20 21:21 Gram Stain - Preliminary Sputum Sputum Culture - Preliminary Yeast species 03/15/20 09:40 Blood Culture - Preliminary Blood No Growth after 48 hours 03/15/20 09:53 Blood Culture - Preliminary Blood No Growth after 48 hours 03/12/20 09:30 Anaerobic Culture - Final Neck 03/12/20 09:30 Gram Stain - Final Neck Wound Culture - Final Escherichia coli Selina krusei Selina albicans Assessment and Plan Assessment: 1. 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 2. Status post tracheostomy for respiratory failure 3. Status post fall off a ladder with, to chest and abdomen 4. Left-sided pneumothorax has chest tube in place 5. Multiple left-sided rib fractures 6. Alcohol intoxication 7. Acute hypoxic ventilatory dependent respiratory failure. 8. Chronic pain medication 9. Atrial fibrillation with rapid ventricular response. Patient now on Eliquis 10. C. diff colitis 11. Acute kidney injury . Followed closely by nephrology. 12. Acute blood loss anemia status post blood transfusion PLAN: -Patient is status post tracheostomy and PEG tube placement. Patient had PEG placed today. Will start on tube feedings in the next 24 hours... -Continue ICU management -Continue oral vancomycin added flagyl -Hemodialysis per nephrology -eloisax for DVT prophylaxis Time with Patient: Greater than 30
[2020-03-17 23:55] LABS: Glucose,Whole Blood 116 mg/dL (75-99)
[2020-03-18] MEDS: LACTATED RINGERS 1,000 ML IV SCH
[2020-03-18] MEDS: IPRATROPIUM-ALBUTEROL 3 ML NEB INHALATION SCH ×5 (03:38→19:01)
[2020-03-18] MEDS: NOREPINEPHRINE 32 MG in SODIUM CHLORIDE 0.9% 218 ML IV SCH (04:04)
[2020-03-18 05:44] LABS: Glucose,Whole Blood 96 mg/dL (75-99)
[2020-03-18] MEDS: VANCOMYCIN ORAL SOLUTION 250 MG/5 ML BOTTLE PO SCH ×4 (05:56→23:32)
[2020-03-18] MEDS: INSULIN ASPART (NovoLOG) 100 UNIT/ML VIAL SQ SCH ×4 (05:56→23:30)
[2020-03-18] MEDS: CALCIUM ACETATE 667 MG TAB PO SCH ×3 (07:24→17:11)
--- NOTE | 2020-03-18 07:41 | P.PN ---
Subjective Progress Note Date: 03/18/20 Principal diagnosis: Paroxysmal atrial fibrillation This is a 70-year-old gentleman who was admitted to the hospital after he fell and developed left-sided rib fracture along with splenic rupture where he required splenectomy. We involved in the care of the patient because of p aroxysmal atrial fibrillation. The patient was seen today March 182019. He remains hemodynamically stable. He is on heparin IV which I am going to stop and switch him to oral anticoagulation. Beside that he is on amiodarone by mouth. He underwent a PEG tube yesterday. He continues to be on dialysis. At this point we will switch the IV heparin to oral anticoagulation and continue the current medical regimen and continue following up with the patient Objective - Vital Signs Vital signs: Vital Signs Temp 99.3 F 03/18/20 04:00 Pulse 93 03/18/20 07:00 Resp 27 H 03/18/20 07:00 BP 157/74 03/18/20 07:00 Pulse Ox 99 03/18/20 07:00 Intake & Output 03/17/20 03/18/20 03/18/20 18:59 06:59 18:59 Intake Total 1494.992 2323.968 65 Output Total 3940 665 50 Balance -2627.647 373.968 15 Weight 77.6 kg Intake: IV 1090 385 20 Anidulafungin 100 mg In 100 Sodium Chloride 0.9% 100 ml @ 84 mls/hr IVPB DAILY [facility] Rx#:[id number] Meropenem 1 gm In Sodium 100 Chloride 0.9% 100 ml @ 33 .3 mls/hr IVPB Q12H [facility] Rx#:[id number] Sodium Acetate 30 meq 90 Potassium Chloride 30 meq Calcium Gluconate 1 gm Mvi, Adult No.4 with Vit K 10 ml Trace (Conc-1Ml/ Dose) 1 ml In Amino Acid 5%-D15w 1,000 ml @ 30 mls /hr IV .Q24H [facility] Rx#: [id number] Sodium Acetate 30 meq 360 45 Potassium Chloride 30 meq Calcium Gluconate 1 gm Mvi, Adult No.4 with Vit K 10 ml Trace (Conc-1Ml/ Dose) 1 ml In Amino Acid 5%-D15w 1,000 ml @ 45 mls /hr IV .[id number] [facility] Rx#: [id number] Sodium Chloride 0.9% 1, 240 240 20 000 ml @ 20 mls/hr IV . Q24H [facility] Rx#:[id number] metroNIDAZOLE-NS PMX 500 200 100 mg In Saline 1 100ml.bag @ 100 mls/hr IVPB Q8HR [facility] Rx#:[id number] Intake, IV Titration 192.353 158.968 Amount Heparin Sod,Pork in 0.45% 92.353 NaCl 25,000 unit In 0.45 % NaCl 1 250ml.bag @ 11. 696 UNITS/KG/HR 10 mls/hr IV .Q24H [facility] Rx#: [id number] propofoL 1,000 mg In 100.000 158.968 Empty Bag 1 bag @ 10 MCG/ KG/MIN 4.854 mls/hr IV . [id number] [facility] Rx#:[id number] Tube Feeding 0 TPN/PPN 30 495 45 Sodium Acetate 30 meq 30 Potassium Chloride 30 meq Calcium Gluconate 1 gm Mvi, Adult No.4 with Vit K 10 ml Trace (Conc-1Ml/ Dose) 1 ml In Amino Acid 5%-D15w 1,000 ml @ 30 mls /hr IV .Q24H [facility] Rx#: [id number] Sodium Acetate 30 meq 495 45 Potassium Chloride 30 meq Calcium Gluconate 1 gm Mvi, Adult No.4 with Vit K 10 ml Trace (Conc-1Ml/ Dose) 1 ml In Amino Acid 5%-D15w 1,000 ml @ 45 mls /hr IV .[id number] [facility] Rx#: [id number] Output: Urine 440 665 50 Hemodialysis 3500 Other: Voiding Method Indwelling Catheter Indwelling Catheter ABP, PAP, CO, CI - Last Documented Arterial Blood Pressure 129/50 - Constitutional General appearance: Present: no acute distress - Respiratory Respiratory: bilateral: diminished - Cardiovascular Heart sounds: normal: S1, S2 - Labs CBC & Chem 7: 03/17/20 06:22 03/17/20 06:22 Labs: Abnormal Lab Results - Last 24 Hours (Table) 03/17/20 03/17/20 03/17/20 Range/Units 11:46 17:50 23:16 APTT 49.0 H (22.0-30.0) sec POC Glucose (mg/dL) 103 H 132 H (75-99) mg/dL 03/17/20 Range/Units 23:53 APTT (22.0-30.0) sec POC Glucose (mg/dL) 116 H (75-99) mg/dL Microbiology - Last 24 Hours (Table) 03/11/20 17:55 Blood Culture - Final Blood No Growth after 144 hours 03/15/20 21:21 Gram Stain - Preliminary Sputum Sputum Culture - Preliminary Yeast species 03/15/20 09:40 Blood Culture - Preliminary Blood No Growth after 48 hours 03/15/20 09:53 Blood Culture - Preliminary Blood No Growth after 48 hours 03/12/20 09:30 Anaerobic Culture - Final Neck 03/12/20 09:30 Gram Stain - Final Neck Wound Culture - Final Escherichia coli Selina krusei Selina albicans Assessment and Plan Assessment: Assessment #1 status post fall with rib fracture #2 status post splenectomy #3 paroxysmal atrial fibrillation #4 multiple comorbid conditions Plan #1 continue amiodarone by mouth #2 stop the heparin and start oral anticoagulation #3 follow-up with the patient
[2020-03-18] MEDS: ACETAMINOPHEN TAB 325 MG TAB PO PRN ×3 (07:53→23:39)
[2020-03-18] MEDS: APIXABAN 2.5 MG TABLET PO SCH ×2 (07:54→20:58)
[2020-03-18] MEDS: THIAMINE 100 MG TAB PO SCH (07:54)
[2020-03-18] MEDS: AMIODARONE 200 MG TAB PO SCH ×2 (07:54→20:57)
[2020-03-18] MEDS: PANTOPRAZOLE 40 MG/10 ML VIAL IVP SCH (07:54)
[2020-03-18] MEDS: FUROSEMIDE 10 MG/ML 10 ML VIAL IV SCH (07:54)
[2020-03-18] MEDS: CHLORHEXIDINE GLUCONATE 15 ML CUP MUCOUS MEM SCH ×2 (07:55→20:57)
[2020-03-18] MEDS: HYDROPHILIC CREAM 180 GM TUBE TOPICAL SCH (08:02)
[2020-03-18] MEDS: metroNIDAZOLE-NS PMX 500 MG in SALINE 1 100ML.BAG IVPB SCH ×3 (08:09→23:29)
--- NOTE | 2020-03-18 08:28 | XR ---
EXAMINATION TYPE: XR chest 1V portable DATE OF EXAM: 03/18/2020 CLINICAL HISTORY: Respiratory failure TECHNIQUE: Portable semiupright view of the chest COMPARISON: 03/17/2020 FINDINGS: Tracheostomy tube overlies the tracheal air column. Left PICC distal tip over the superior vena cava. Right internal jugular hemodialysis catheter. Sternotomy wires. The cardiomediastinal jennifer houette is within normal limits for size. Pulmonary vascular congestion is similar given increased in spiration versus 03/17/2020. Unchanged blunting of the left hemidiaphragm. No pneumothorax. The osseou s structures are intact. IMPRESSION: Pulmonary vascular congestion is similar to 03/17/2020 given differences in technique.
[2020-03-18] MEDS: MORPHINE ORAL SOLN 10 MG/5 ML CUP PO SCH ×4 (09:20→23:29)
[2020-03-18 10:27] LABS: Albumin 2.3 g/dL (3.5-5.0); Calcium 7.7 mg/dL (8.4-10.2); Magnesium 2.2 mg/dL (1.6-2.3); Phosphorus 8.1 mg/dL (2.5-4.5); Potassium 4.1 mmol/L (3.5-5.1); Total Protein 4.7 g/dL (6.3-8.2)
[2020-03-18] MEDS: ANIDULAFUNGIN 100 MG in SODIUM CHLORIDE 0.9% 100 ML IVPB SCH (10:31)
[2020-03-18] MEDS: SODIUM CHLORIDE 0.9% 1,000 ML IV SCH (10:33)
[2020-03-18 10:34] LABS: Anisocytosis Slight; Basophils # (A) 0.1 k/uL (0-0.2); Basophils % (A) 1 %; Eosinophils # (A) 0.4 k/uL (0-0.7); Eosinophils % (A) 2 %; HCT 26.5 % (39.0-53.0); HGB 7.9 gm/dL (13.0-17.5); Hypochromasia Marked; Lymphocytes # (A) 1.3 k/uL (1.0-4.8); Lymphocytes % (A) 8 %; MCH 27.1 pg (25.0-35.0); MCHC 29.7 g/dL (31.0-37.0); MCV 91.1 fL (80.0-100.0); Mean Platelet Volume 8.8; Monocytes # (A) 1.3 k/uL (0-1.0); Monocytes % (A) 9 %; Neutrophils # (A) 12.3 k/uL (1.3-7.7); Neutrophils % (A) 79 %; Platelet Count 394 k/uL (150-450); Poikilocytosis Slight; RDW 17.6 % (11.5-15.5); WBC 15.6 k/uL (3.8-10.6)
--- NOTE | 2020-03-18 11:31 | P.PN ---
Subjective patient is seen in follow-up for acute kidney injury, currently hemodialysis dependent. remains off Levophed. Has a tracheostomy. On 35% FiO2. remains nonoliguric now. Tube feedings to be started today. Vital signs are stable. off Levophed. General: The patient appeared well nourished and normally developed. HEENT: Head exam is unremarkable. Neck is without jugular venous distension. NG tube noted. tracheostomy. LUNGS: Breath sounds decreased. HEART: Rate and Rhythm are regular. ABDOMEN: soft, nondistended. EXTREMITITES: 1+ edema. Objective - Vital Signs Vital signs: Vital Signs Temp 98.6 F 03/18/20 09:00 Pulse 86 03/18/20 11:17 Resp 26 H 03/18/20 11:00 BP 132/57 03/18/20 11:00 Pulse Ox 97 03/18/20 11:00 Intake & Output 03/17/20 03/18/20 03/18/20 18:59 06:59 18:59 Intake Total 3505.674 2315.968 213.652 Output Total 3940 665 420 Balance -2627.647 373.968 -206.348 Weight 77.6 kg Intake: IV 1090 385 100 Anidulafungin 100 mg In 100 Sodium Chloride 0.9% 100 ml @ 84 mls/hr IVPB DAILY [facility] Rx#:[id number] Meropenem 1 gm In Sodium 100 Chloride 0.9% 100 ml @ 33 .3 mls/hr IVPB Q12H [facility] Rx#:[id number] Sodium Acetate 30 meq 90 Potassium Chloride 30 meq Calcium Gluconate 1 gm Mvi, Adult No.4 with Vit K 10 ml Trace (Conc-1Ml/ Dose) 1 ml In Amino Acid 5%-D15w 1,000 ml @ 30 mls /hr IV .Q24H [facility] Rx#: [id number] Sodium Acetate 30 meq 360 45 Potassium Chloride 30 meq Calcium Gluconate 1 gm Mvi, Adult No.4 with Vit K 10 ml Trace (Conc-1Ml/ Dose) 1 ml In Amino Acid 5%-D15w 1,000 ml @ 45 mls /hr IV .[id number] [facility] Rx#: [id number] Sodium Chloride 0.9% 1, 240 240 100 000 ml @ 20 mls/hr IV . Q24H [facility] Rx#:[id number] metroNIDAZOLE-NS PMX 500 200 100 mg In Saline 1 100ml.bag @ 100 mls/hr IVPB Q8HR [facility] Rx#:[id number] Intake, IV Titration 192.353 158.968 58.652 Amount Heparin Sod,Pork in 0.45% 92.353 NaCl 25,000 unit In 0.45 % NaCl 1 250ml.bag @ 11. 696 UNITS/KG/HR 10 mls/hr IV .Q24H [facility] Rx#: [id number] propofoL 1,000 mg In 100.000 158.968 58.652 Empty Bag 1 bag @ 10 MCG/ KG/MIN 4.854 mls/hr IV . [id number] [facility] Rx#:[id number] Tube Feeding 0 10 TPN/PPN 30 495 45 Sodium Acetate 30 meq 30 Potassium Chloride 30 meq Calcium Gluconate 1 gm Mvi, Adult No.4 with Vit K 10 ml Trace (Conc-1Ml/ Dose) 1 ml In Amino Acid 5%-D15w 1,000 ml @ 30 mls /hr IV .Q24H [facility] Rx#: [id number] Sodium Acetate 30 meq 495 45 Potassium Chloride 30 meq Calcium Gluconate 1 gm Mvi, Adult No.4 with Vit K 10 ml Trace (Conc-1Ml/ Dose) 1 ml In Amino Acid 5%-D15w 1,000 ml @ 45 mls /hr IV .[id number] [facility] Rx#: [id number] Output: Urine 440 665 420 Hemodialysis 3500 Other: Voiding Method Indwelling Catheter Indwelling Catheter Indwelling Catheter ABP, PAP, CO, CI - Last Documented Arterial Blood Pressure 129/50 - Labs CBC & Chem 7: 03/18/20 09:50 03/18/20 09:50 Labs: Abnormal Lab Results - Last 24 Hours (Table) 03/17/20 03/17/20 03/17/20 Range/Units 11:46 17:50 23:16 WBC (3.8-10.6) k/uL RBC (4.30-5.90) m/uL Hgb (13.0-17.5) gm/dL Hct (39.0-53.0) % MCHC (31.0-37.0) g/dL RDW (11.5-15.5) % Neutrophils # (1.3-7.7) k/uL Monocytes # (0-1.0) k/uL APTT 49.0 H (22.0-30.0) sec Sodium (137-145) mmol/L Carbon Dioxide (22-30) mmol/L BUN (9-20) mg/dL Creatinine (0.66-1.25) mg/dL Glucose (74-99) mg/dL POC Glucose (mg/dL) 103 H 132 H (75-99) mg/dL Calcium (8.4-10.2) mg/dL Phosphorus (2.5-4.5) mg/dL Alkaline Phosphatase (38-126) U/L Total Protein (6.3-8.2) g/dL Albumin (3.5-5.0) g/dL 03/17/20 03/18/20 03/18/20 Range/Units 23:53 09:50 09:50 WBC 15.6 H (3.8-10.6) k/uL RBC 2.90 L (4.30-5.90) m/uL Hgb 7.9 L (13.0-17.5) gm/dL Hct 26.5 L (39.0-53.0) % MCHC 29.7 L (31.0-37.0) g/dL RDW 17.6 H (11.5-15.5) % Neutrophils # 12.3 H (1.3-7.7) k/uL Monocytes # 1.3 H (0-1.0) k/uL APTT (22.0-30.0) sec Sodium 135 L (137-145) mmol/L Carbon Dioxide 20 L (22-30) mmol/L BUN 84 H (9-20) mg/dL Creatinine 2.66 H (0.66-1.25) mg/dL Glucose 109 H (74-99) mg/dL POC Glucose (mg/dL) 116 H (75-99) mg/dL Calcium 7.7 L (8.4-10.2) mg/dL Phosphorus 8.1 H (2.5-4.5) mg/dL Alkaline Phosphatase 137 H (38-126) U/L Total Protein 4.7 L (6.3-8.2) g/dL Albumin 2.3 L (3.5-5.0) g/dL Microbiology - Last 24 Hours (Table) 03/15/20 21:21 Gram Stain - Final Sputum Sputum Culture - Final Selina sp,not albicans/galbr 03/11/20 17:55 Blood Culture - Final Blood No Growth after 144 hours 03/15/20 09:40 Blood Culture - Preliminary Blood No Growth after 48 hours 03/15/20 09:53 Blood Culture - Preliminary Blood No Growth after 48 hours 03/12/20 09:30 Anaerobic Culture - Final Neck 03/12/20 09:30 Gram Stain - Final Neck Wound Culture - Final Escherichia coli Selina krusei Selina albicans Assessment and Plan Plan: assessment: 1. Acute kidney injury secondary to ATN secondary to infection and hemodynamic instability. started on hemodialysis March 04 due to oliguria and hyperkalemia. Baseline creatinine near 1. UA fairly benign. now nonoliguric. 2. Hypervolemic hyponatremia. improved with ultrafiltration. 3. A. fib with RVR maintained on amiodarone and eliquis. 4. Status post fall with pneumothorax, multiple rib fractures, hemoperitoneum and ruptured spleen status post emergent chest tube placement and splenectomy. 5. acute blood loss anemia status post blood transfusions this admission. improved post blood transfusion. Also on Aranesp. 6. Metabolic acidosis secondary to acute kidney injury. stable. 7. 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 8. Hyperkalemia secondary to acute kidney injury and metabolic acidosis. ?GI bleed. improved postdialysis. 9. Third-degree heart block. Cardiology following. 10. Hyperphosphatemia secondary to acute kidney injury. 11. Volume overload. significantly improved with ultrafiltration. Plan: maintain hemodialysis on Sunday schedule. Wean FiO2. Continue to monitor renal function and urine output. change Lasix to 80 mg orally twice daily. PhosLo to be resumed once tube feeding initiated. avoid nephrotoxins. Discontinue Fleet enemas.
[2020-03-18 11:41] LABS: Glucose,Whole Blood 123 mg/dL (75-99)
--- NOTE | 2020-03-18 13:57 | P.PN ---
Subjective Progress Note Date: 03/18/20 CHIEF COMPLAINT: Fall with Trauma HISTORY OF PRESENT ILLNESS: Patient seen with Dr. Ivy. This is a 69-year-old male who fell 15 feet off the top of the ladder. Patient's CAT scan was performed showing a large left pneumothorax as well as multiple rib fractures and hemoperitoneum and a ruptured spleen. Patient is status post splenectomy. Patient is status post tracheostomy placement due to his res piratory failure and unable to wean from vent. Patient remains in ICU and on vent. He is off the sedation. He is awake. He is status post PEG tube placement. He is started on tube feedings. He is having bowel movements. He is afebrile. White count 15.6 hemoglobin 7.9. PHYSICAL EXAM: VITAL SIGNS: Reviewed. GENERAL: Well-developed in no acute distress. HEENT: No sclera icterus. Extraocular movements grossly intact. Moist buccal mucosa. Head is atraumatic, normocephalic. Trach site clean dry and intact ABDOMEN: Distended NEUROLOGIC: Patient is awake ASSESSMENT: 1. 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 2. Status post tracheostomy for respiratory failure 3. Status post fall off a ladder with, to chest and abdomen 4. Left-sided pneumothorax 5. Multiple left-sided rib fractures 6. Alcohol intoxication 7. Acute hypoxic ventilatory dependent respiratory failure. 8. Chronic pain medication 9. Atrial fibrillation with rapid ventricular response. Patient now on Eliquis 10. C. diff colitis 11. Acute kidney injury . Followed closely by nephrology. 12. Acute blood loss anemia status post blood transfusion 13. Ileus PLAN: -Continue to titrate tube feedings -Continue ICU management -Continue oral vancomycin -lovenox for DVT prophylaxis Physician Orthopedic Radiologic Technologist note has been reviewed by physician. Signing provider agrees with the documented findings, assessment, and plan of care. Objective - Vital Signs Vital signs: Vital Signs Temp 99.2 F 03/18/20 12:00 Pulse 101 H 03/18/20 13:00 Resp 19 03/18/20 13:00 BP 152/78 03/18/20 13:00 Pulse Ox 98 03/18/20 13:00 Intake & Output 03/17/20 03/18/20 03/18/20 18:59 06:59 18:59 Intake Total 2890.294 3943.968 253.652 Output Total 3940 665 745 Balance -2627.647 373.968 -491.348 Weight 77.6 kg Intake: IV 1090 385 120 Anidulafungin 100 mg In 100 Sodium Chloride 0.9% 100 ml @ 84 mls/hr IVPB DAILY [facility] Rx#:[id number] Meropenem 1 gm In Sodium 100 Chloride 0.9% 100 ml @ 33 .3 mls/hr IVPB Q12H [facility] Rx#:[id number] Sodium Acetate 30 meq 90 Potassium Chloride 30 meq Calcium Gluconate 1 gm Mvi, Adult No.4 with Vit K 10 ml Trace (Conc-1Ml/ Dose) 1 ml In Amino Acid 5%-D15w 1,000 ml @ 30 mls /hr IV .Q24H [facility] Rx#: [id number] Sodium Acetate 30 meq 360 45 Potassium Chloride 30 meq Calcium Gluconate 1 gm Mvi, Adult No.4 with Vit K 10 ml Trace (Conc-1Ml/ Dose) 1 ml In Amino Acid 5%-D15w 1,000 ml @ 45 mls /hr IV .[id number] [facility] Rx#: [id number] Sodium Chloride 0.9% 1, 240 240 120 000 ml @ 20 mls/hr IV . Q24H [facility] Rx#:[id number] metroNIDAZOLE-NS PMX 500 200 100 mg In Saline 1 100ml.bag @ 100 mls/hr IVPB Q8HR [facility] Rx#:[id number] Intake, IV Titration 192.353 158.968 58.652 Amount Heparin Sod,Pork in 0.45% 92.353 NaCl 25,000 unit In 0.45 % NaCl 1 250ml.bag @ 11. 696 UNITS/KG/HR 10 mls/hr IV .Q24H [facility] Rx#: [id number] propofoL 1,000 mg In 100.000 158.968 58.652 Empty Bag 1 bag @ 10 MCG/ KG/MIN 4.854 mls/hr IV . [id number] [facility] Rx#:[id number] Tube Feeding 0 30 TPN/PPN 30 495 45 Sodium Acetate 30 meq 30 Potassium Chloride 30 meq Calcium Gluconate 1 gm Mvi, Adult No.4 with Vit K 10 ml Trace (Conc-1Ml/ Dose) 1 ml In Amino Acid 5%-D15w 1,000 ml @ 30 mls /hr IV .Q24H [facility] Rx#: [id number] Sodium Acetate 30 meq 495 45 Potassium Chloride 30 meq Calcium Gluconate 1 gm Mvi, Adult No.4 with Vit K 10 ml Trace (Conc-1Ml/ Dose) 1 ml In Amino Acid 5%-D15w 1,000 ml @ 45 mls /hr IV .[id number] [facility] Rx#: [id number] Output: Urine 440 665 745 Hemodialysis 3500 Other: Voiding Method Indwelling Catheter Indwelling Catheter Indwelling Catheter ABP, PAP, CO, CI - Last Documented Arterial Blood Pressure 129/50 - Labs CBC & Chem 7: 03/18/20 09:50 03/18/20 09:50 Labs: Abnormal Lab Results - Last 24 Hours (Table) 03/17/20 03/17/20 03/17/20 Range/Units 17:50 23:16 23:53 WBC (3.8-10.6) k/uL RBC (4.30-5.90) m/uL Hgb (13.0-17.5) gm/dL Hct (39.0-53.0) % MCHC (31.0-37.0) g/dL RDW (11.5-15.5) % Neutrophils # (1.3-7.7) k/uL Monocytes # (0-1.0) k/uL APTT 49.0 H (22.0-30.0) sec Sodium (137-145) mmol/L Carbon Dioxide (22-30) mmol/L BUN (9-20) mg/dL Creatinine (0.66-1.25) mg/dL Glucose (74-99) mg/dL POC Glucose (mg/dL) 132 H 116 H (75-99) mg/dL Calcium (8.4-10.2) mg/dL Phosphorus (2.5-4.5) mg/dL Alkaline Phosphatase (38-126) U/L Total Protein (6.3-8.2) g/dL Albumin (3.5-5.0) g/dL 03/18/20 03/18/20 03/18/20 Range/Units 09:50 09:50 11:40 WBC 15.6 H (3.8-10.6) k/uL RBC 2.90 L (4.30-5.90) m/uL Hgb 7.9 L (13.0-17.5) gm/dL Hct 26.5 L (39.0-53.0) % MCHC 29.7 L (31.0-37.0) g/dL RDW 17.6 H (11.5-15.5) % Neutrophils # 12.3 H (1.3-7.7) k/uL Monocytes # 1.3 H (0-1.0) k/uL APTT (22.0-30.0) sec Sodium 135 L (137-145) mmol/L Carbon Dioxide 20 L (22-30) mmol/L BUN 84 H (9-20) mg/dL Creatinine 2.66 H (0.66-1.25) mg/dL Glucose 109 H (74-99) mg/dL POC Glucose (mg/dL) 123 H (75-99) mg/dL Calcium 7.7 L (8.4-10.2) mg/dL Phosphorus 8.1 H (2.5-4.5) mg/dL Alkaline Phosphatase 137 H (38-126) U/L Total Protein 4.7 L (6.3-8.2) g/dL Albumin 2.3 L (3.5-5.0) g/dL Microbiology - Last 24 Hours (Table) 03/15/20 09:40 Blood Culture - Preliminary Blood No Growth after 72 hours 03/15/20 09:53 Blood Culture - Preliminary Blood No Growth after 72 hours 03/15/20 21:21 Gram Stain - Final Sputum Sputum Culture - Final Selina sp,not albicans/galbr 03/11/20 17:55 Blood Culture - Final Blood No Growth after 144 hours 03/12/20 09:30 Anaerobic Culture - Final Neck 03/12/20 09:30 Gram Stain - Final Neck Wound Culture - Final Escherichia coli Selina krusei Selina albicans
--- NOTE | 2020-03-18 14:15 | PN ---
PROGRESS NOTE DATE OF SERVICE: 03/18/2020 REASON FOR FOLLOWUP: 1. Aspiration pneumonitis. 2. C. difficile colitis. 3. Oropharyngeal candidiasis. INTERVAL HISTORY: The patient did spike another fever of 101 degrees Fahrenheit this morning. The patient did receive Tylenol, subsequently fever has resolved. The patient is hemodynamically stable, not on any pressor support. FiO2 is currently down to 35%. No significant purulent secretion through the ET. He did get his PEG tube yesterday and will be started on tube feeds today. No diarrhea reported by nursing staff. PHYSICAL EXAMINATION: Blood pressure 147/65, pulse 100 temperature 99.2. He is 97% on 35% FiO2. General description is an elderly male, lying in bed in no distress. RESPIRATORY SYSTEM: Unlabored breathing, decreased breath sounds in the base, no wheeze. HEART: S1, S2. Regular rate and rhythm. ABDOMEN: Soft, no tenderness. LABS: Hemoglobin is 7.1, white count 15.6, BUN of 84, creatinine is 2.66. Remains Selina albicans. This can be this patient non albicans. IMPRESSION/PLAN: 1. Patient with C difficile colitis currently covered with Flagyl. once tube feeds started may add at discharge vancomycin. 2. Possible pneumonitis with trach site culture positive for E coli. Patient is covered with Rocephin and Flagyl. White count showing a downward trend down to 15,000. 3. Oropharyngeal candidiasis, continue Eraxis and will monitor clinical course closely. MMODL / IJN: [id number] /
--- NOTE | 2020-03-18 14:15 | P.PN ---
Subjective Progress Note Date: 03/18/20 Principal diagnosis: Status post fall off ladder and significant trauma to chest and abdomen. This is a 69-year-old male patient who was working on his gutters when he fell off a 15 foot ladder. This was unwitnessed. He end up calling his who in turn called EMS and the patient was brought in to the emergency department. Upon arrival, the patient was hypotensive and he was in shock. The patient initial chest x-ray showed several left-sided fractures and small amount of subcutaneous air in addition to a left-sided pneumothorax. The x-ray of the pelvis showed no evidence of any fracture or dislocation. The CAT scan of the brain showed age-related atrophy and chronic small vessel ischemic changes without any acute intracranial process. CAT scan of cervical spine showed no acute abnormalities. On and has Been of the cervical spine was done and the bone and soft tissue windows showed no acute abnormalities. There was no evidence of any fracture. Along with multiple left-sided rib fractures third extending to the seventh rib. There was also spending the sedation with estimated grade 3 injury the patient. The patient's hemoglobin dropped to 10.5. The patient received a total of 2 L of IV fluid and 40 minutes of packed RBC. Morning hemoglobin today is At 13.4. The patient was taken to the operating room yesterday. The patient underwent a left-sided chest tube insertion. The patient also had splenectomy done and following that the patient was kept intubated on a mechanical ventilator and he was transferred to the intensive care unit. Note that the patient takes morphine outpatient basis and he has chronic pain and chronic narcotic requirements and on outpatient basis he takes morphine sulfate in the form of MS Contin 50 mg every 12 hours. Overnight, the patient was intubated on mechanical ventilator. He was sedated with a combination of propofol and he was also placed on morphine drip after being given several boluses control his pain. This morning, Profore is running at 70 mg per KG per minute. Morphine is running at 8 mg an hour. The patient is on normal saline at rate of 85 mL an hour. The patient has a left sided chest tube. Total amount of output is in order 110 mL of serosanguineous material without evidence of any air leak. The ventilator setting shows an assist- control mode rate of 20 with a tidal volume of 500 and FiO2 of 40% with a PEEP of 5. The patient's FiO2 is down to 40% overnight. The morning blood gases showed a pH of 7.4 with a pCO2 of 37 and pO2 of 121. The chest x-ray from this morning shows that the patient has an indwelling left-sided chest tube without any signs or pneumothorax. There is also a basilar pleural-based opacity along with multiple left-sided rib fractures and ET tube is in a good location. He is at approximately slightly swollen probably related to an infiltrated IV. He did not require any pressors. He remains hemodynamically stable. Lactic acid remains slightly elevated at 2.9 03/14/2020, the patient had a setback this morning. He had large volume emesis. He had several emesis and possibly aspirated. He became tachypneic and short of breath. He is awake however he became more restless and uncomfortable post aspiration. Based on that, I asked the nursing staff to utilize some Precedex if needed to control agitation. Meanwhile, the patient had his tube feeds held. Affect some of the abdomen was done that shows possible small bowel obstruction, partial and the patient has fecal stasis/infection the right lower quadrant area. The patient notes was taking treatment for C. diff colitis and he was on a combination of vancomycin and IV Flagyl. No diarrhea for now. Tube feeds on hold for now. He remains on a mechanical ventilator. His assist- control mode at the rate of 22 with a tidal volume of 500 and FiO2 of 40% with a PEEP of 5. The chest x-ray from today shows further clearing of the bilateral pulmonary infiltrates and this was done before the aspiration episode. No hemodialysis will be done today. His blood gases showed a pH of 7.5 with a pCO2 of 35 and pO2 of 92. Is still having episodic fever. The sputum around the tracheostomy tube was positive for gram-negative and I added the troponin. ID is on the case and the patient is taking a combination of daptomycin and Eraxis. He is on no Cardizem drip for now. Tube feeds are currently on hold. No other significant events otherwise for now. Noted the patient was showing significant amount of progress in terms of his neuro status. Abdominal wound is dry clean and intact. Bowel sounds are hypoactive for now. Patient was reevaluated today on 03/15/20, patient had a major setback last night, he developed extreme agitation, became asynchronous with the ventilator, and he developed high peak airway pressures on the ventilator. Patient required sedation again, and he is now on propofol drip at 30 mcg/kg/m. Patient also developed hypotension requiring norepinephrine presently at 0.02 mcg/kg/m. He is off Cardizem. His ventilator settings today are assist control rate of 22 tidal volume is 500 FiO2 50% and PEEP of 5. ABG this morning showed a pO2 of 385 pCO2 of 38 pH of 7.4. Hence his FiO2 was decreased down to 45%, and I kept him on volume control plus. Tidal volume at 500. Patient was admitted on 02/17/20, and has been in the hospital since. Yesterday the patient had 2 episodes of vomiting and he may have aspirated. His tube feeding is presently on hold. He developed some abdominal distention, and that being addressed by surgery on the case. . Recent cultures have been basically nondiagnostic. Develop leukocytosis and the repeat cultures are ordered. His ventilator settings were changed and his FiO2 was decreased down to 45%. Patient will undergo hemodialysis today. Still having episodes of fever. His most recent sputum cultures have shown Selina and gram-negative bacilli antibiotics stallworth, patient is on daptomycin, meropenem, and Eraxis. Reevaluated today on 03/16/20, patient remains in the ICU, remains on the same ventilatory settings assist control rate of 22 tidal volume is 500 FiO2 35% and PEEP of 5. ABG this morning showed a pO2 of 133 pCO2 of 33 pH of 7.44 patient is on amiodarone at 0.5 mg/m, IV fluid at KVO, is also on propofol which I will cut down as long as the patient is not agitated. He seems to be calm on this dose of propofol, and he seems to follow simple instructions but he generally weak. Continues to have enteral feeding on hold, and because of his ileus that he had yesterday, no plans for PEG tube soon. Although patient had some good bowel movements yesterday, and responded well to an emesis. Today the patient seems to be calm her, and again follow simple instructions, propofol remains at 40 mcg/kg/m. Chest x-ray today showed multiple left-sided rib fractures with left lower lobe consolidation and small effusion. Coarsened interstitium noted. Possibly interstitial pneumonitis. Abdominal films showed nonspecific abdomen with persistent distention of bowel loops greater in the right hemiabdomen essentially unchanged compared to yesterday. Differential diagnoses includes ileus or partial obstruction. Patient was reevaluated today on 03/17/20, remains in the ICU, patient remains on the same ventilator settings, assist control rate of 22 volume control +500 FiO2 35% and PEEP of 5. No ABG was done today. His basic metabolic profile is normal renal profile showed a BUN of 96 creatinine of 3.31. WBC count is down to 27.5 hemoglobin is 7.8. Patient is requiring small dose of propofol at 20 mcg/kg/m, he is also on IV fluid at KVO, amiodarone 0.5 mg/m, and he is schedul ed to undergo activity placement sometime later this afternoon. Patient did have bowel movements last night, and his abdomen seems to be soft. His enteral feeding remains on, nasogastric tube remains in place until the PEG tube is placed today. Recent blood cultures from the have been negative so far. Patient remains on Eraxis, ceftriaxone, meropenem, metronidazole, and oral vancomycin by mouth. His antibiotics are being addressed by infectious disease on the case. Patient is now off daptomycin. Chest x-ray showed slight already edema, and multiple lines and catheters remain about the same. Reevaluated today on 03/18/20, patient remains in the ICU, remains intubated and mechanically ventilated. He remains on assist control rate of 22 tidal volume is 500 FiO2 of 35% PEEP of 5. Patient has been on TPN, however I'm hoping I could switch his TPN to enteral feeding today using the PEG tube which was placed yesterday. Patient had at least 6 bowel movements since yesterday, and the PEG tube seems to be functional. Would likely change TPN for enteral feeding today. Patient is off propofol, he is not requiring any pressors, he seems to be very comfortable, follows simple instructions but generally weak. Hence I have recommended trial of pressure support of 14 and CPAP. And as I was watching his pattern of breathing, he seems to be very comfortable, moving at least 500 mL of tidal volume with a rate of 14. Patient actually seems to be more comfortable with a pressure support and CPAP done on assist control mode of mechanical ventilation. Hence we'll try to keep him on this mode as long as possible. We will not to change the pressure support from 14 to lower values until tomorrow likely. Chest x-ray is basically the same, nonspecific changes noted at the bases, no clear-cut evidence of pneumonia or congestive heart failure. WBC count today is 15.6 hemoglobin is 7.9. Electrodes are normal BUN is 84 creatinine 2.66. Bicarb is 20. Objective - Vital Signs Vital signs: Vital Signs Temp 99.2 F 03/18/20 12:00 Pulse 105 H 03/18/20 14:00 Resp 22 03/18/20 14:00 BP 163/92 03/18/20 14:00 Pulse Ox 98 03/18/20 14:00 Intake & Output 03/17/20 03/18/20 03/18/20 18:59 06:59 18:59 Intake Total 0462.491 8066.968 253.652 Output Total 3940 665 745 Balance -2627.647 373.968 -491.348 Weight 77.6 kg Intake: IV 1090 385 120 Anidulafungin 100 mg In 100 Sodium Chloride 0.9% 100 ml @ 84 mls/hr IVPB DAILY [facility] Rx#:[id number] Meropenem 1 gm In Sodium 100 Chloride 0.9% 100 ml @ 33 .3 mls/hr IVPB Q12H [facility] Rx#:[id number] Sodium Acetate 30 meq 90 Potassium Chloride 30 meq Calcium Gluconate 1 gm Mvi, Adult No.4 with Vit K 10 ml Trace (Conc-1Ml/ Dose) 1 ml In Amino Acid 5%-D15w 1,000 ml @ 30 mls /hr IV .Q24H [facility] Rx#: [id number] Sodium Acetate 30 meq 360 45 Potassium Chloride 30 meq Calcium Gluconate 1 gm Mvi, Adult No.4 with Vit K 10 ml Trace (Conc-1Ml/ Dose) 1 ml In Amino Acid 5%-D15w 1,000 ml @ 45 mls /hr IV .[id number] [facility] Rx#: [id number] Sodium Chloride 0.9% 1, 240 240 120 000 ml @ 20 mls/hr IV . Q24H [facility] Rx#:[id number] metroNIDAZOLE-NS PMX 500 200 100 mg In Saline 1 100ml.bag @ 100 mls/hr IVPB Q8HR [facility] Rx#:[id number] Intake, IV Titration 192.353 158.968 58.652 Amount Heparin Sod,Pork in 0.45% 92.353 NaCl 25,000 unit In 0.45 % NaCl 1 250ml.bag @ 11. 696 UNITS/KG/HR 10 mls/hr IV .Q24H [facility] Rx#: [id number] propofoL 1,000 mg In 100.000 158.968 58.652 Empty Bag 1 bag @ 10 MCG/ KG/MIN 4.854 mls/hr IV . [id number] [facility] Rx#:[id number] Tube Feeding 0 30 TPN/PPN 30 495 45 Sodium Acetate 30 meq 30 Potassium Chloride 30 meq Calcium Gluconate 1 gm Mvi, Adult No.4 with Vit K 10 ml Trace (Conc-1Ml/ Dose) 1 ml In Amino Acid 5%-D15w 1,000 ml @ 30 mls /hr IV .Q24H [facility] Rx#: [id number] Sodium Acetate 30 meq 495 45 Potassium Chloride 30 meq Calcium Gluconate 1 gm Mvi, Adult No.4 with Vit K 10 ml Trace (Conc-1Ml/ Dose) 1 ml In Amino Acid 5%-D15w 1,000 ml @ 45 mls /hr IV .[id number] [facility] Rx#: [id number] Output: Urine 440 665 745 Hemodialysis 3500 Other: Voiding Method Indwelling Catheter Indwelling Catheter Indwelling Catheter ABP, PAP, CO, CI - Last Documented Arterial Blood Pressure 129/50 - Exam Physical Exam: Revealed a 70-year-old white male, sedated, mechanically ventilated, off propofol completely today. Head: Atraumatic, normocephalic, tracheostomy is intact, HEENT:[Neck is supple.] [No neck masses.] [No thyromegaly.] [No JVD.] PERRLA, EOMI, no icterus. Chest: Symmetrical chest expansion, minimal fine crackles at the bases. Cardiac Exam: Distant S1 and S2, no S3 gallop. No murmur. Abdomen: [Soft, nontender, no megaly, no rebound, no guarding, normal bowel sounds.] PEG tube is intact. Extremities: No clubbing, trace of bipedal edema. no cyanosis.. Good pulses bilaterally. Neurological Exam: Pupils are equally reactive to light, patient seems to be generally weak. Follows simple instructions but generally weak. Psychiatric: Blunted mood, and affect. Follows simple instructions. Musculoskeletal: No deformities. Generally weak. - Labs CBC & Chem 7: 03/18/20 09:50 03/18/20 09:50 Labs: Abnormal Lab Results - Last 24 Hours (Table) 03/17/20 03/17/20 03/17/20 Range/Units 17:50 23:16 23:53 WBC (3.8-10.6) k/uL RBC (4.30-5.90) m/uL Hgb (13.0-17.5) gm/dL Hct (39.0-53.0) % MCHC (31.0-37.0) g/dL RDW (11.5-15.5) % Neutrophils # (1.3-7.7) k/uL Monocytes # (0-1.0) k/uL APTT 49.0 H (22.0-30.0) sec Sodium (137-145) mmol/L Carbon Dioxide (22-30) mmol/L BUN (9-20) mg/dL Creatinine (0.66-1.25) mg/dL Glucose (74-99) mg/dL POC Glucose (mg/dL) 132 H 116 H (75-99) mg/dL Calcium (8.4-10.2) mg/dL Phosphorus (2.5-4.5) mg/dL Alkaline Phosphatase (38-126) U/L Total Protein (6.3-8.2) g/dL Albumin (3.5-5.0) g/dL 03/18/20 03/18/20 03/18/20 Range/Units 09:50 09:50 11:40 WBC 15.6 H (3.8-10.6) k/uL RBC 2.90 L (4.30-5.90) m/uL Hgb 7.9 L (13.0-17.5) gm/dL Hct 26.5 L (39.0-53.0) % MCHC 29.7 L (31.0-37.0) g/dL RDW 17.6 H (11.5-15.5) % Neutrophils # 12.3 H (1.3-7.7) k/uL Monocytes # 1.3 H (0-1.0) k/uL APTT (22.0-30.0) sec Sodium 135 L (137-145) mmol/L Carbon Dioxide 20 L (22-30) mmol/L BUN 84 H (9-20) mg/dL Creatinine 2.66 H (0.66-1.25) mg/dL Glucose 109 H (74-99) mg/dL POC Glucose (mg/dL) 123 H (75-99) mg/dL Calcium 7.7 L (8.4-10.2) mg/dL Phosphorus 8.1 H (2.5-4.5) mg/dL Alkaline Phosphatase 137 H (38-126) U/L Total Protein 4.7 L (6.3-8.2) g/dL Albumin 2.3 L (3.5-5.0) g/dL Microbiology - Last 24 Hours (Table) 03/15/20 09:40 Blood Culture - Preliminary Blood No Growth after 72 hours 03/15/20 09:53 Blood Culture - Preliminary Blood No Growth after 72 hours 03/15/20 21:21 Gram Stain - Final Sputum Sputum Culture - Final Selina sp,not albicans/galbr 03/11/20 17:55 Blood Culture - Final Blood No Growth after 144 hours 03/12/20 09:30 Anaerobic Culture - Final Neck 03/12/20 09:30 Gram Stain - Final Neck Wound Culture - Final Escherichia coli Selina krusei Selina albicans Assessment and Plan Assessment: Impression: Status post fall off a ladder with trauma to chest and abdomen. 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 Traumatic left-sided rib fractures with 30% pneumothorax requiring chest tube placement. Has been removed already. Acute hemorrhagic shock on presentation. Acute blood loss anemia and patient received a total of 5 units of packed RBCs since admission. Acute hypoxic respiratory failure secondary to extreme agitation and delirium tremors requiring sedation, and detoxification, Chronic neck pain, patient is maintained chronically on MS Contin, remains on morphine drip. Coronary artery disease and previous CABG, echocardiogram is unremarkable. Dyslipidemia Paroxysmal atrial fibrillation , remains on amiodarone. This will be changed to oral amiodarone after PEG tube placement. Failure to wean, status post tracheostomy on 02/25/20. Toxic metabolic encephalopathy, acute. Status post bronchoscopy and lavage of the right upper lobe done on 02/29/20. Non diagnostic.. C. difficile colitis, treated with oral vancomycin, resolved. Acute kidney injury, requiring hemodialysis. Suspect critical illness polyneuropathy. Ileus versus small bowel obstruction. Improved clinically Status post PEG tube placement on 03/17/20. Recommendation: Continue ventilatory support, however patient will be given a trial of pressure support of 14 and CPAP. Resume enteral feeding via PEG daily. And gradually taper and discontinue TPN if enteral feeding is tolerated. Continue antibiotics and antifungal therapy as per infectious disease on the case. Continue hemodialysis for acute kidney injury. Consider placement on this patient if [facility] Trial of pressure support and CPAP today for Continue daily assessment of mental status Discussed his condition with again yesterday. And updated on his overall status which is overall improved compared to where he was few weeks ago Discussed his condition with renal social worker, may get placement for this patient by tomorrow at [facility]. Critical care time is 33 minutes Time with Patient: Greater than 30
[2020-03-18] MEDS: FUROSEMIDE 80 MG TAB PO SCH (16:48)
[2020-03-18 17:33] LABS: Glucose,Whole Blood 126 mg/dL (75-99)
[2020-03-18] MEDS: [UNRECOGNIZED DRUG - REMARK] IV SCH ×6 (19:12)
[2020-03-18] MEDS: FINASTERIDE 5 MG TAB PO SCH (20:57)
[2020-03-18] MEDS: QUEtiapine 100 MG TAB PO SCH (20:58)
[2020-03-18] MEDS: TAMSULOSIN 0.4 MG CAP.ER.24H PO SCH (20:58)
[2020-03-18] MEDS: METOPROLOL TARTRATE 25 MG TAB PO SCH (20:58)
[2020-03-18 23:24] LABS: Glucose,Whole Blood 131 mg/dL (75-99)
[2020-03-19] MEDS: LACTATED RINGERS 1,000 ML IV SCH (02:09)
[2020-03-19] MEDS: IPRATROPIUM-ALBUTEROL 3 ML NEB INHALATION SCH ×6 (03:23→15:12)
[2020-03-19 05:03] LABS: Albumin 2.3 g/dL (3.5-5.0); Calcium 8.1 mg/dL (8.4-10.2); Potassium 4.9 mmol/L (3.5-5.1); Total Bilirubin 1.1 mg/dL (0.2-1.3); Total Protein 4.8 g/dL (6.3-8.2)
[2020-03-19 05:14] LABS: Phosphorus 9.4 mg/dL (2.5-4.5)
[2020-03-19] MEDS: NOREPINEPHRINE 32 MG in SODIUM CHLORIDE 0.9% 218 ML IV SCH (05:49)
[2020-03-19 06:05] LABS: Glucose,Whole Blood 121 mg/dL (75-99)
[2020-03-19] MEDS: INSULIN ASPART (NovoLOG) 100 UNIT/ML VIAL SQ SCH ×2 (06:07→11:50)
[2020-03-19] MEDS: CALCIUM ACETATE 667 MG TAB PO SCH ×3 (06:14→16:01)
[2020-03-19] MEDS: VANCOMYCIN ORAL SOLUTION 250 MG/5 ML BOTTLE PO SCH (06:14)
[2020-03-19] MEDS: SODIUM CHLORIDE 0.9% 1,000 ML IV SCH (07:00)
--- NOTE | 2020-03-19 07:42 | P.PN ---
Subjective Progress Note Date: 03/19/20 Principal diagnosis: Paroxysmal atrial fibrillation This is a 70-year-old gentleman who was admitted to the hospital after he fell and developed left-sided rib fracture along with splenic rupture where he required splenectomy. We involved in the care of the patient because of p aroxysmal atrial fibrillation. The patient was seen today March 192019. He continues to be hemodynamically stable. He is on amiodarone by mouth as well as oral anticoagulation. He seems to be in atrial fibrillation with controlled heart rate at this point. He continues to be on dialysis. From the cardiovascular standpoint overview, we'll continue the current medical regimen and continue following up with the patient Objective - Vital Signs Vital signs: Vital Signs Temp 99.0 F 03/19/20 04:00 Pulse 89 03/19/20 06:00 Resp 25 H 03/19/20 06:00 BP 137/68 03/19/20 06:00 Pulse Ox 97 03/19/20 06:00 Intake & Output 03/18/20 03/19/20 03/19/20 18:59 06:59 18:59 Intake Total 456.440 8577 Output Total 1045 1266 Balance -611.348 475 Weight 74.6 kg Intake: IV 220 695 Sodium Acetate 30 meq 495 Potassium Chloride 30 meq Calcium Gluconate 1 gm Mvi, Adult No.4 with Vit K 10 ml Trace (Conc-1Ml/ Dose) 1 ml In Amino Acid 5%-D15w 1,000 ml @ 45 mls /hr IV .[id number] [facility] Rx#: [id number] Sodium Chloride 0.9% 1, 220 200 000 ml @ 20 mls/hr IV . Q24H [facility] Rx#:[id number] Intake, IV Titration 58.652 1026 Amount Sodium Acetate 30 meq 1026 Potassium Chloride 30 meq Calcium Gluconate 1 gm Mvi, Adult No.4 with Vit K 10 ml Trace (Conc-1Ml/ Dose) 1 ml In Amino Acid 5%-D15w 1,000 ml @ 45 mls /hr IV .[id number] [facility] Rx#: [id number] propofoL 1,000 mg In 58.652 Empty Bag 1 bag @ 10 MCG/ KG/MIN 4.854 mls/hr IV . [id number] [facility] Rx#:[id number] Tube Feeding 80 20 TPN/PPN 45 Sodium Acetate 30 meq 45 Potassium Chloride 30 meq Calcium Gluconate 1 gm Mvi, Adult No.4 with Vit K 10 ml Trace (Conc-1Ml/ Dose) 1 ml In Amino Acid 5%-D15w 1,000 ml @ 45 mls /hr IV .[id number] [facility] Rx#: [id number] Other 30 Output: Urine 1045 1265 Stool 1 Other: Voiding Method Indwelling Catheter Indwelling Catheter ABP, PAP, CO, CI - Last Documented Arterial Blood Pressure 129/50 - Constitutional General appearance: Present: no acute distress - Respiratory Respiratory: bilateral: diminished - Cardiovascular Rhythm: irregularly irregular Heart sounds: normal: S1, S2 - Labs CBC & Chem 7: 03/18/20 09:50 03/19/20 04:25 Labs: Abnormal Lab Results - Last 24 Hours (Table) 03/18/20 03/18/20 03/18/20 Range/Units 09:50 09:50 11:40 WBC 15.6 H (3.8-10.6) k/uL RBC 2.90 L (4.30-5.90) m/uL Hgb 7.9 L (13.0-17.5) gm/dL Hct 26.5 L (39.0-53.0) % MCHC 29.7 L (31.0-37.0) g/dL RDW 17.6 H (11.5-15.5) % Neutrophils # 12.3 H (1.3-7.7) k/uL Monocytes # 1.3 H (0-1.0) k/uL Sodium 135 L (137-145) mmol/L Carbon Dioxide 20 L (22-30) mmol/L BUN 84 H (9-20) mg/dL Creatinine 2.66 H (0.66-1.25) mg/dL Glucose 109 H (74-99) mg/dL POC Glucose (mg/dL) 123 H (75-99) mg/dL Calcium 7.7 L (8.4-10.2) mg/dL Phosphorus 8.1 H (2.5-4.5) mg/dL Alkaline Phosphatase 137 H (38-126) U/L Total Protein 4.7 L (6.3-8.2) g/dL Albumin 2.3 L (3.5-5.0) g/dL 03/18/20 03/18/20 03/19/20 Range/Units 17:32 23:23 04:25 WBC (3.8-10.6) k/uL RBC (4.30-5.90) m/uL Hgb (13.0-17.5) gm/dL Hct (39.0-53.0) % MCHC (31.0-37.0) g/dL RDW (11.5-15.5) % Neutrophils # (1.3-7.7) k/uL Monocytes # (0-1.0) k/uL Sodium 136 L (137-145) mmol/L Carbon Dioxide (22-30) mmol/L BUN 100 H (9-20) mg/dL Creatinine 3.09 H (0.66-1.25) mg/dL Glucose 112 H (74-99) mg/dL POC Glucose (mg/dL) 126 H 131 H (75-99) mg/dL Calcium 8.1 L (8.4-10.2) mg/dL Phosphorus 9.4 H* (2.5-4.5) mg/dL Alkaline Phosphatase 154 H (38-126) U/L Total Protein 4.8 L (6.3-8.2) g/dL Albumin 2.3 L (3.5-5.0) g/dL 03/19/20 Range/Units 06:04 WBC (3.8-10.6) k/uL RBC (4.30-5.90) m/uL Hgb (13.0-17.5) gm/dL Hct (39.0-53.0) % MCHC (31.0-37.0) g/dL RDW (11.5-15.5) % Neutrophils # (1.3-7.7) k/uL Monocytes # (0-1.0) k/uL Sodium (137-145) mmol/L Carbon Dioxide (22-30) mmol/L BUN (9-20) mg/dL Creatinine (0.66-1.25) mg/dL Glucose (74-99) mg/dL POC Glucose (mg/dL) 121 H (75-99) mg/dL Calcium (8.4-10.2) mg/dL Phosphorus (2.5-4.5) mg/dL Alkaline Phosphatase (38-126) U/L Total Protein (6.3-8.2) g/dL Albumin (3.5-5.0) g/dL Microbiology - Last 24 Hours (Table) 03/15/20 09:40 Blood Culture - Preliminary Blood No Growth after 72 hours 03/15/20 09:53 Blood Culture - Preliminary Blood No Growth after 72 hours 03/15/20 21:21 Gram Stain - Final Sputum Sputum Culture - Final Selina sp,not albicans/galbr Assessment and Plan Assessment: Assessment #1 status post fall with rib fracture #2 status post splenectomy #3 paroxysmal atrial fibrillation #4 multiple comorbid conditions Plan #1 continue amiodarone by mouth #2 continue oral anticoagulation #3 follow-up with the patient
[2020-03-19] MEDS: HALOPERIDOL LACTATE 5 MG/ML 1 ML VIAL IVP PRN (08:49)
[2020-03-19] MEDS: THIAMINE 100 MG TAB PO SCH (08:51)
[2020-03-19] MEDS: CHLORHEXIDINE GLUCONATE 15 ML CUP MUCOUS MEM SCH (08:51)
[2020-03-19] MEDS: METOPROLOL TARTRATE 25 MG TAB PO SCH (08:51)
[2020-03-19] MEDS: APIXABAN 2.5 MG TABLET PO SCH (08:51)
[2020-03-19] MEDS: MORPHINE ORAL SOLN 10 MG/5 ML CUP PO SCH ×2 (08:51→16:01)
[2020-03-19] MEDS: AMIODARONE 200 MG TAB PO SCH (08:51)
[2020-03-19] MEDS: HYDROPHILIC CREAM 180 GM TUBE TOPICAL SCH (08:52)
[2020-03-19] MEDS: PANTOPRAZOLE 40 MG/10 ML VIAL IVP SCH (08:52)
--- NOTE | 2020-03-19 08:52 | XR ---
EXAMINATION TYPE: XR chest 1V portable DATE OF EXAM: 03/19/2020 COMPARISON: Prior chest x-ray 03/18/2020 HISTORY: Respiratory failure TECHNIQUE: Single frontal view of the chest is obtained. FINDINGS: Lung volumes are lower. Tracheostomy tube remains in place, and central venous catheters ar e stable. Postop changes are noted to the cervical spine, patient is post median sternotomy. Patchy b ilateral airspace disease is noted, no pneumothorax or pleural effusion is evident. Biapical pleural thickening is stable. Heart is stable. IMPRESSION: Correlate for pulmonary edema, congestive heart failure, pneumonia not excluded.
[2020-03-19] MEDS: DARBEPOETIN ALFA 40 MCG/0.4 ML SYRINGE SQ SCH (08:55)
[2020-03-19] MEDS: FUROSEMIDE 80 MG TAB PO SCH ×2 (08:56→16:00)
--- NOTE | 2020-03-19 10:31 | P.PN ---
Subjective patient is seen in follow-up for acute kidney injury, currently hemodialysis dependent. remains off Levophed. Has a tracheostomy. On 35% FiO2. urine output 100 mL an hour. Receiving tube feeding. TPN to be discontinued later this afternoon. Vital signs are stable. off Levophed. General: The patient appeared well nourished and normally developed. HEENT: Head exam is unremarkable. Neck is without jugular venous distension. NG tube noted. tracheostomy. LUNGS: Breath sounds decreased. HEART: Rate and Rhythm are regular. ABDOMEN: soft, nondistended. EXTREMITITES: 1+ edema. Objective - Vital Signs Vital signs: Vital Signs Temp 99.6 F 03/19/20 08:00 Pulse 131 H 03/19/20 09:00 Resp 29 H 03/19/20 09:00 BP 141/97 03/19/20 09:00 Pulse Ox 97 03/19/20 08:00 Intake & Output 03/18/20 03/19/20 03/19/20 18:59 06:59 18:59 Intake Total 740.109 4882 275 Output Total 1045 1266 160 Balance -611.348 475 115 Weight 74.6 kg Intake: IV 220 695 195 Sodium Acetate 30 meq 495 135 Potassium Chloride 30 meq Calcium Gluconate 1 gm Mvi, Adult No.4 with Vit K 10 ml Trace (Conc-1Ml/ Dose) 1 ml In Amino Acid 5%-D15w 1,000 ml @ 45 mls /hr IV .[id number] [facility] Rx#: [id number] Sodium Chloride 0.9% 1, 220 200 60 000 ml @ 20 mls/hr IV . Q24H [facility] Rx#:[id number] Intake, IV Titration 58.652 1026 Amount Sodium Acetate 30 meq 1026 Potassium Chloride 30 meq Calcium Gluconate 1 gm Mvi, Adult No.4 with Vit K 10 ml Trace (Conc-1Ml/ Dose) 1 ml In Amino Acid 5%-D15w 1,000 ml @ 45 mls /hr IV .[id number] [facility] Rx#: [id number] propofoL 1,000 mg In 58.652 Empty Bag 1 bag @ 10 MCG/ KG/MIN 4.854 mls/hr IV . [id number] [facility] Rx#:[id number] Tube Feeding 80 20 80 TPN/PPN 45 Sodium Acetate 30 meq 45 Potassium Chloride 30 meq Calcium Gluconate 1 gm Mvi, Adult No.4 with Vit K 10 ml Trace (Conc-1Ml/ Dose) 1 ml In Amino Acid 5%-D15w 1,000 ml @ 45 mls /hr IV .[id number] [facility] Rx#: [id number] Other 30 Output: Urine 1045 1265 160 Stool 1 Other: Voiding Method Indwelling Catheter Indwelling Catheter Indwelling Catheter ABP, PAP, CO, CI - Last Documented Arterial Blood Pressure 129/50 - Labs CBC & Chem 7: 03/18/20 09:50 03/19/20 04:25 Labs: Abnormal Lab Results - Last 24 Hours (Table) 03/18/20 03/18/20 03/18/20 Range/Units 09:50 11:40 17:32 WBC 15.6 H (3.8-10.6) k/uL RBC 2.90 L (4.30-5.90) m/uL Hgb 7.9 L (13.0-17.5) gm/dL Hct 26.5 L (39.0-53.0) % MCHC 29.7 L (31.0-37.0) g/dL RDW 17.6 H (11.5-15.5) % Neutrophils # 12.3 H (1.3-7.7) k/uL Monocytes # 1.3 H (0-1.0) k/uL Sodium (137-145) mmol/L BUN (9-20) mg/dL Creatinine (0.66-1.25) mg/dL Glucose (74-99) mg/dL POC Glucose (mg/dL) 123 H 126 H (75-99) mg/dL Calcium (8.4-10.2) mg/dL Phosphorus (2.5-4.5) mg/dL Alkaline Phosphatase (38-126) U/L Total Protein (6.3-8.2) g/dL Albumin (3.5-5.0) g/dL 03/18/20 03/19/20 03/19/20 Range/Units 23:23 04:25 06:04 WBC (3.8-10.6) k/uL RBC (4.30-5.90) m/uL Hgb (13.0-17.5) gm/dL Hct (39.0-53.0) % MCHC (31.0-37.0) g/dL RDW (11.5-15.5) % Neutrophils # (1.3-7.7) k/uL Monocytes # (0-1.0) k/uL Sodium 136 L (137-145) mmol/L BUN 100 H (9-20) mg/dL Creatinine 3.09 H (0.66-1.25) mg/dL Glucose 112 H (74-99) mg/dL POC Glucose (mg/dL) 131 H 121 H (75-99) mg/dL Calcium 8.1 L (8.4-10.2) mg/dL Phosphorus 9.4 H* (2.5-4.5) mg/dL Alkaline Phosphatase 154 H (38-126) U/L Total Protein 4.8 L (6.3-8.2) g/dL Albumin 2.3 L (3.5-5.0) g/dL Microbiology - Last 24 Hours (Table) 03/15/20 09:40 Blood Culture - Preliminary Blood No Growth after 72 hours 03/15/20 09:53 Blood Culture - Preliminary Blood No Growth after 72 hours 03/15/20 21:21 Gram Stain - Final Sputum Sputum Culture - Final Selina sp,not albicans/galbr Assessment and Plan Plan: assessment: 1. Acute kidney injury secondary to ATN secondary to infection and hemodynamic instability. started on hemodialysis March 04 due to oliguria and hyperkalemia. Baseline creatinine near 1. UA fairly benign. now nonoliguric. 2. Hypervolemic hyponatremia. improved with ultrafiltration. 3. A. fib with RVR maintained on amiodarone and eliquis. 4. Status post fall with pneumothorax, multiple rib fractures, hemoperitoneum and ruptured spleen status post emergent chest tube placement and splenectomy. 5. acute blood loss anemia status post blood transfusions this admission. improved post blood transfusion. Also on Aranesp. 6. Metabolic acidosis secondary to acute kidney injury. stable. 7. 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 8. Hyperkalemia secondary to acute kidney injury and metabolic acidosis. ?GI bleed. improved postdialysis. 9. Third-degree heart block. Cardiology following. 10. Hyperphosphatemia secondary to acute kidney injury. PhosLo resumed yesterday with tube feeding. 11. Volume overload. significantly improved with ultrafiltration. Plan: currently seen while undergoing hemodialysis. Hold off on dialysis over the weekend and reassess on Sunday. Wean FiO2. Continue to monitor renal function and urine output. maintain Lasix 80 mg orally twice daily. avoid nephrotoxins. Discontinue Fleet enemas.
[2020-03-19] MEDS: metroNIDAZOLE-NS PMX 500 MG in SALINE 1 100ML.BAG IVPB SCH ×2 (10:37→16:00)
[2020-03-19] MEDS: ANIDULAFUNGIN 100 MG in SODIUM CHLORIDE 0.9% 100 ML IVPB SCH (10:38)
[2020-03-19 11:21] VITALS: BMI 26.5
[2020-03-19 11:49] LABS: Glucose,Whole Blood 107 mg/dL (75-99)
[2020-03-19] MEDS: ACETAMINOPHEN TAB 325 MG TAB PO PRN (11:51)
--- NOTE | 2020-03-19 11:57 | P.PN ---
Subjective Progress Note Date: 03/19/20 Principal diagnosis: Status post fall off ladder and significant trauma to chest and abdomen. This is a 69-year-old male patient who was working on his gutters when he fell off a 15 foot ladder. This was unwitnessed. He end up calling his who in turn called EMS and the patient was brought in to the emergency department. Upon arrival, the patient was hypotensive and he was in shock. The patient initial chest x-ray showed several left-sided fractures and small amount of subcutaneous air in addition to a left-sided pneumothorax. The x-ray of the pelvis showed no evidence of any fracture or dislocation. The CAT scan of the brain showed age-related atrophy and chronic small vessel ischemic changes without any acute intracranial process. CAT scan of cervical spine showed no acute abnormalities. On and has Been of the cervical spine was done and the bone and soft tissue windows showed no acute abnormalities. There was no evidence of any fracture. Along with multiple left-sided rib fractures third extending to the seventh rib. There was also spending the sedation with estimated grade 3 injury the patient. The patient's hemoglobin dropped to 10.5. The patient received a total of 2 L of IV fluid and 40 minutes of packed RBC. Morning hemoglobin today is At 13.4. The patient was taken to the operating room yesterday. The patient underwent a left-sided chest tube insertion. The patient also had splenectomy done and following that the patient was kept intubated on a mechanical ventilator and he was transferred to the intensive care unit. Note that the patient takes morphine outpatient basis and he has chronic pain and chronic narcotic requirements and on outpatient basis he takes morphine sulfate in the form of MS Contin 50 mg every 12 hours. Overnight, the patient was intubated on mechanical ventilator. He was sedated with a combination of propofol and he was also placed on morphine drip after being given several boluses control his pain. This morning, Profore is running at 70 mg per KG per minute. Morphine is running at 8 mg an hour. The patient is on normal saline at rate of 85 mL an hour. The patient has a left sided chest tube. Total amount of output is in order 110 mL of serosanguineous material without evidence of any air leak. The ventilator setting shows an assist- control mode rate of 20 with a tidal volume of 500 and FiO2 of 40% with a PEEP of 5. The patient's FiO2 is down to 40% overnight. The morning blood gases showed a pH of 7.4 with a pCO2 of 37 and pO2 of 121. The chest x-ray from this morning shows that the patient has an indwelling left-sided chest tube without any signs or pneumothorax. There is also a basilar pleural-based opacity along with multiple left-sided rib fractures and ET tube is in a good location. He is at approximately slightly swollen probably related to an infiltrated IV. He did not require any pressors. He remains hemodynamically stable. Lactic acid remains slightly elevated at 2.9 03/14/2020, the patient had a setback this morning. He had large volume emesis. He had several emesis and possibly aspirated. He became tachypneic and short of breath. He is awake however he became more restless and uncomfortable post aspiration. Based on that, I asked the nursing staff to utilize some Precedex if needed to control agitation. Meanwhile, the patient had his tube feeds held. Affect some of the abdomen was done that shows possible small bowel obstruction, partial and the patient has fecal stasis/infection the right lower quadrant area. The patient notes was taking treatment for C. diff colitis and he was on a combination of vancomycin and IV Flagyl. No diarrhea for now. Tube feeds on hold for now. He remains on a mechanical ventilator. His assist- control mode at the rate of 22 with a tidal volume of 500 and FiO2 of 40% with a PEEP of 5. The chest x-ray from today shows further clearing of the bilateral pulmonary infiltrates and this was done before the aspiration episode. No hemodialysis will be done today. His blood gases showed a pH of 7.5 with a pCO2 of 35 and pO2 of 92. Is still having episodic fever. The sputum around the tracheostomy tube was positive for gram-negative and I added the troponin. ID is on the case and the patient is taking a combination of daptomycin and Eraxis. He is on no Cardizem drip for now. Tube feeds are currently on hold. No other significant events otherwise for now. Noted the patient was showing significant amount of progress in terms of his neuro status. Abdominal wound is dry clean and intact. Bowel sounds are hypoactive for now. Patient was reevaluated today on 03/15/20, patient had a major setback last night, he developed extreme agitation, became asynchronous with the ventilator, and he developed high peak airway pressures on the ventilator. Patient required sedation again, and he is now on propofol drip at 30 mcg/kg/m. Patient also developed hypotension requiring norepinephrine presently at 0.02 mcg/kg/m. He is off Cardizem. His ventilator settings today are assist control rate of 22 tidal volume is 500 FiO2 50% and PEEP of 5. ABG this morning showed a pO2 of 385 pCO2 of 38 pH of 7.4. Hence his FiO2 was decreased down to 45%, and I kept him on volume control plus. Tidal volume at 500. Patient was admitted on 02/17/20, and has been in the hospital since. Yesterday the patient had 2 episodes of vomiting and he may have aspirated. His tube feeding is presently on hold. He developed some abdominal distention, and that being addressed by surgery on the case. . Recent cultures have been basically nondiagnostic. Develop leukocytosis and the repeat cultures are ordered. His ventilator settings were changed and his FiO2 was decreased down to 45%. Patient will undergo hemodialysis today. Still having episodes of fever. His most recent sputum cultures have shown Selina and gram-negative bacilli antibiotics stallworth, patient is on daptomycin, meropenem, and Eraxis. Reevaluated today on 03/16/20, patient remains in the ICU, remains on the same ventilatory settings assist control rate of 22 tidal volume is 500 FiO2 35% and PEEP of 5. ABG this morning showed a pO2 of 133 pCO2 of 33 pH of 7.44 patient is on amiodarone at 0.5 mg/m, IV fluid at KVO, is also on propofol which I will cut down as long as the patient is not agitated. He seems to be calm on this dose of propofol, and he seems to follow simple instructions but he generally weak. Continues to have enteral feeding on hold, and because of his ileus that he had yesterday, no plans for PEG tube soon. Although patient had some good bowel movements yesterday, and responded well to an emesis. Today the patient seems to be calm her, and again follow simple instructions, propofol remains at 40 mcg/kg/m. Chest x-ray today showed multiple left-sided rib fractures with left lower lobe consolidation and small effusion. Coarsened interstitium noted. Possibly interstitial pneumonitis. Abdominal films showed nonspecific abdomen with persistent distention of bowel loops greater in the right hemiabdomen essentially unchanged compared to yesterday. Differential diagnoses includes ileus or partial obstruction. Patient was reevaluated today on 03/17/20, remains in the ICU, patient remains on the same ventilator settings, assist control rate of 22 volume control +500 FiO2 35% and PEEP of 5. No ABG was done today. His basic metabolic profile is normal renal profile showed a BUN of 96 creatinine of 3.31. WBC count is down to 27.5 hemoglobin is 7.8. Patient is requiring small dose of propofol at 20 mcg/kg/m, he is also on IV fluid at KVO, amiodarone 0.5 mg/m, and he is schedul ed to undergo activity placement sometime later this afternoon. Patient did have bowel movements last night, and his abdomen seems to be soft. His enteral feeding remains on, nasogastric tube remains in place until the PEG tube is placed today. Recent blood cultures from the have been negative so far. Patient remains on Eraxis, ceftriaxone, meropenem, metronidazole, and oral vancomycin by mouth. His antibiotics are being addressed by infectious disease on the case. Patient is now off daptomycin. Chest x-ray showed slight already edema, and multiple lines and catheters remain about the same. Reevaluated today on 03/18/20, patient remains in the ICU, remains intubated and mechanically ventilated. He remains on assist control rate of 22 tidal volume is 500 FiO2 of 35% PEEP of 5. Patient has been on TPN, however I'm hoping I could switch his TPN to enteral feeding today using the PEG tube which was placed yesterday. Patient had at least 6 bowel movements since yesterday, and the PEG tube seems to be functional. Would likely change TPN for enteral feeding today. Patient is off propofol, he is not requiring any pressors, he seems to be very comfortable, follows simple instructions but generally weak. Hence I have recommended trial of pressure support of 14 and CPAP. And as I was watching his pattern of breathing, he seems to be very comfortable, moving at least 500 mL of tidal volume with a rate of 14. Patient actually seems to be more comfortable with a pressure support and CPAP done on assist control mode of mechanical ventilation. Hence we'll try to keep him on this mode as long as possible. We will not to change the pressure support from 14 to lower values until tomorrow likely. Chest x-ray is basically the same, nonspecific changes noted at the bases, no clear-cut evidence of pneumonia or congestive heart failure. WBC count today is 15.6 hemoglobin is 7.9. Electrodes are normal BUN is 84 creatinine 2.66. Bicarb is 20. Patient was reevaluated today on 03/19/20, remains in the ICU, intubated and mechanically ventilated. Patient is now receiving hemodialysis. Yesterday he tolerated about 2 hours of pressure support and CPAP. Then he was switched later on to assist control mode of mechanical ventilation. Patient is tolerating enteral feeding via PEG tube, hence we will discontinue TPN today. Patient is hemodynamically stable, not requiring any pressors. Chest x-ray did show evidence of interstitial edema and that will most likely improve after his dialysis today. Ventilator settings are assist control rate of 22 volume control plus at 500 FiO2 of 35% and PEEP of 5. Patient remains on Rocephin and Flagyl and Eraxis. And he is also on oral vancomycin. Patient was noted to be at times restless, however he improves with Haldol injections. Cardiac-stallworth patient is slightly tachycardic, he is in atrial fibrillation rate is 106-120. His enteral feeding is a Nepro at 30 mL per hour. And that is his goal. Objective - Vital Signs Vital signs: Vital Signs Temp 99.3 F 03/19/20 11:38 Pulse 111 H 03/19/20 11:38 Resp 28 H 03/19/20 11:38 BP 119/62 03/19/20 11:38 Pulse Ox 98 03/19/20 11:00 Intake & Output 03/18/20 03/19/20 03/19/20 18:59 06:59 18:59 Intake Total 443.661 0243 1379.75 Output Total 1045 1266 2350 Balance -611.348 475 -970.25 Weight 74.6 kg 74.6 kg Intake: IV 220 695 485 Anidulafungin 100 mg In 100 Sodium Chloride 0.9% 100 ml @ 84 mls/hr IVPB DAILY [facility] Rx#:[id number] Sodium Acetate 30 meq 495 135 Potassium Chloride 30 meq Calcium Gluconate 1 gm Mvi, Adult No.4 with Vit K 10 ml Trace (Conc-1Ml/ Dose) 1 ml In Amino Acid 5%-D15w 1,000 ml @ 45 mls /hr IV .[id number] [facility] Rx#: [id number] Sodium Chloride 0.9% 1, 220 200 100 000 ml @ 20 mls/hr IV . Q24H [facility] Rx#:[id number] cefTRIAXone 1 gm In 50 Sodium Chloride 0.9% 50 ml @ 100 mls/hr IVPB Q24HR [facility] Rx#:[id number] metroNIDAZOLE-NS PMX 500 100 mg In Saline 1 100ml.bag @ 100 mls/hr IVPB Q8HR [facility] Rx#:[id number] Intake, IV Titration 58.652 1026 694.75 Amount Sodium Acetate 30 meq 25 Calcium Gluconate 1 gm Mvi, Adult No.4 with Vit K 10 ml Trace (Conc-1Ml/ Dose) 1 ml In Amino Acid 5%-D15w 1,000 ml @ 45 mls /hr IV .[id number] [facility] Rx#: [id number] Sodium Acetate 30 meq 1026 669.75 Potassium Chloride 30 meq Calcium Gluconate 1 gm Mvi, Adult No.4 with Vit K 10 ml Trace (Conc-1Ml/ Dose) 1 ml In Amino Acid 5%-D15w 1,000 ml @ 45 mls /hr IV .[id number] [facility] Rx#: [id number] propofoL 1,000 mg In 58.652 Empty Bag 1 bag @ 10 MCG/ KG/MIN 4.854 mls/hr IV . [id number] [facility] Rx#:[id number] Tube Feeding 80 20 140 TPN/PPN 45 Sodium Acetate 30 meq 45 Potassium Chloride 30 meq Calcium Gluconate 1 gm Mvi, Adult No.4 with Vit K 10 ml Trace (Conc-1Ml/ Dose) 1 ml In Amino Acid 5%-D15w 1,000 ml @ 45 mls /hr IV .[id number] [facility] Rx#: [id number] Other 30 60 Output: Urine 1045 1265 350 Stool 1 Hemodialysis 1999 Other: Voiding Method Indwelling Catheter Indwelling Catheter Indwelling Catheter ABP, PAP, CO, CI - Last Documented Arterial Blood Pressure 129/50 - Exam Physical Exam: Revealed a 70-year-old white male, sedated, mechanically ventilated, off propofol completely today. Off pressors Head: Atraumatic, normocephalic, tracheostomy is intact, HEENT:[Neck is supple.] [No neck masses.] [No thyromegaly.] [No JVD.] PERRLA, EOMI, no icterus. Chest: Symmetrical chest expansion, crackles throughout both lungs Cardiac Exam: Distant S1 and S2, no S3 gallop. No murmur. Abdomen: [Soft, nontender, no megaly, no rebound, no guarding, normal bowel sounds.] PEG tube is intact. Extremities: No clubbing, trace of bipedal edema. no cyanosis.. Good pulses bilaterally. Neurological Exam: Pupils are equally reactive to light, patient seems to be generally weak. Follows simple instructions but generally weak. Psychiatric: Blunted mood, and affect. Comprehensive and follows instructions. Musculoskeletal: No deformities. Generally weak. - Labs CBC & Chem 7: 03/18/20 09:50 03/19/20 04:25 Labs: Abnormal Lab Results - Last 24 Hours (Table) 03/18/20 03/18/20 03/19/20 Range/Units 17:32 23:23 04:25 Sodium 136 L (137-145) mmol/L BUN 100 H (9-20) mg/dL Creatinine 3.09 H (0.66-1.25) mg/dL Glucose 112 H (74-99) mg/dL POC Glucose (mg/dL) 126 H 131 H (75-99) mg/dL Calcium 8.1 L (8.4-10.2) mg/dL Phosphorus 9.4 H* (2.5-4.5) mg/dL Alkaline Phosphatase 154 H (38-126) U/L Total Protein 4.8 L (6.3-8.2) g/dL Albumin 2.3 L (3.5-5.0) g/dL 03/19/20 03/19/20 Range/Units 06:04 11:48 Sodium (137-145) mmol/L BUN (9-20) mg/dL Creatinine (0.66-1.25) mg/dL Glucose (74-99) mg/dL POC Glucose (mg/dL) 121 H 107 H (75-99) mg/dL Calcium (8.4-10.2) mg/dL Phosphorus (2.5-4.5) mg/dL Alkaline Phosphatase (38-126) U/L Total Protein (6.3-8.2) g/dL Albumin (3.5-5.0) g/dL Microbiology - Last 24 Hours (Table) 03/15/20 09:40 Blood Culture - Preliminary Blood No Growth after 72 hours 03/15/20 09:53 Blood Culture - Preliminary Blood No Growth after 72 hours 03/15/20 21:21 Gram Stain - Final Sputum Sputum Culture - Final Selina sp,not albicans/galbr Assessment and Plan Assessment: Impression: Status post fall off a ladder with trauma to chest and abdomen. 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 Traumatic left-sided rib fractures with 30% pneumothorax requiring chest tube placement. Has been removed already. Acute hemorrhagic shock on presentation. Acute blood loss anemia and patient received a total of 5 units of packed RBCs since admission. Acute hypoxic respiratory failure secondary to extreme agitation and delirium tremors requiring sedation, and detoxification, Chronic neck pain, patient is maintained chronically on MS Contin, remains on morphine drip. Coronary artery disease and previous CABG, echocardiogram is unremarkable. Dyslipidemia Paroxysmal atrial fibrillation , remains on amiodarone. This will be changed to oral amiodarone after PEG tube placement. Failure to wean, status post tracheostomy on 02/25/20. Toxic metabolic encephalopathy, acute. Status post bronchoscopy and lavage of the right upper lobe done on 02/29/20. Nondiagnostic.. C. difficile colitis, treated with oral vancomycin, resolved. Acute kidney injury, requiring hemodialysis. Suspect critical illness polyneuropathy. Ileus versus small bowel obstruction. Improved clinically Status post PEG tube placement on 03/17/20. Recommendation: Continue ventilatory support, will try again pressure support and CPAP later today after hemodialysis. Continue enteral feeding and discontinue TPN Continue antibiotics and antifungal therapy as per infectious disease on the kit e. Continue hemodialysis for acute kidney injury. Placement in [facility] care specialty is in progress.. Continue daily assessment of mental status, and daily weaning trials. Critical care time is 32 minutes Time with Patient: Greater than 30
[2020-03-19 12:04] VITALS: TEMP 101.4
--- NOTE | 2020-03-19 12:37 | P.PN ---
Subjective Progress Note Date: 03/19/20 CHIEF COMPLAINT: Fall with Trauma HISTORY OF PRESENT ILLNESS: Patient seen with Dr. Ivy. This is a 69-year-old male who fell 15 feet off the top of the ladder. Patient's CAT scan was performed showing a large left pneumothorax as well as multiple rib fractures and hemoperitoneum and a ruptured spleen. Patient is status post splenectomy. Patient is status post tracheostomy placement due to his res piratory failure and unable to wean from vent. Patient remains in ICU and on vent. He is getting hemodialysis this morning. He is off the sedation. He is awake. He is status post PEG tube placement. He is tolerating tube feedings. Tube feeding rate is currently at 30 miles per hour. He is having bowel movements. He did have a fever T-max 101. This morning 100.2. PHYSICAL EXAM: VITAL SIGNS: Reviewed. GENERAL: Well-developed in no acute distress. HEENT: No sclera icterus. Extraocular movements grossly intact. Moist buccal mucosa. Head is atraumatic, normocephalic. Trach site clean dry and intact ABDOMEN: Distended. PEG tube site clean dry and intact NEUROLOGIC: Patient is awake ASSESSMENT: 1. 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 2. Status post tracheostomy for respiratory failure 3. Status post fall off a ladder with, to chest and abdomen 4. Left-sided pneumothorax 5. Multiple left-sided rib fractures 6. Alcohol intoxication 7. Acute hypoxic ventilatory dependent respiratory failure. 8. Chronic pain medication 9. Atrial fibrillation with rapid ventricular response. Patient now on Eliquis 10. C. diff colitis 11. Acute kidney injury . Followed closely by nephrology. 12. Acute blood loss anemia status post blood transfusion 13. Ileus 14. Severe protein calorie malnutrition status post PEG tube placement PLAN: -Continue to titrate tube feedings -Continue ICU management -Continue oral vancomycin -lovenox for DVT prophylaxis -Possible transfer to select specialty later today or over the weekend Physician Chainstitch Elastic Attacher note has been reviewed by physician. Signing provider agrees with the documented findings, assessment, and plan of care. Objective - Vital Signs Vital signs: Vital Signs Temp 101.4 F H 03/19/20 12:00 Pulse 87 03/19/20 12:20 Resp 22 03/19/20 12:00 BP 117/59 03/19/20 12:00 Pulse Ox 97 03/19/20 12:00 Intake & Output 03/18/20 03/19/20 03/19/20 18:59 06:59 18:59 Intake Total 775.264 3663 1429.75 Output Total 1045 1266 2390 Balance -611.348 475 -960.25 Weight 74.6 kg 74.6 kg Intake: IV 220 695 505 Anidulafungin 100 mg In 100 Sodium Chloride 0.9% 100 ml @ 84 mls/hr IVPB DAILY [facility] Rx#:[id number] Sodium Acetate 30 meq 495 135 Potassium Chloride 30 meq Calcium Gluconate 1 gm Mvi, Adult No.4 with Vit K 10 ml Trace (Conc-1Ml/ Dose) 1 ml In Amino Acid 5%-D15w 1,000 ml @ 45 mls /hr IV .[id number] [facility] Rx#: [id number] Sodium Chloride 0.9% 1, 220 200 120 000 ml @ 20 mls/hr IV . Q24H [facility] Rx#:[id number] cefTRIAXone 1 gm In 50 Sodium Chloride 0.9% 50 ml @ 100 mls/hr IVPB Q24HR [facility] Rx#:[id number] metroNIDAZOLE-NS PMX 500 100 mg In Saline 1 100ml.bag @ 100 mls/hr IVPB Q8HR [facility] Rx#:[id number] Intake, IV Titration 58.652 1026 694.75 Amount Sodium Acetate 30 meq 25 Calcium Gluconate 1 gm Mvi, Adult No.4 with Vit K 10 ml Trace (Conc-1Ml/ Dose) 1 ml In Amino Acid 5%-D15w 1,000 ml @ 45 mls /hr IV .[id number] [facility] Rx#: [id number] Sodium Acetate 30 meq 1026 669.75 Potassium Chloride 30 meq Calcium Gluconate 1 gm Mvi, Adult No.4 with Vit K 10 ml Trace (Conc-1Ml/ Dose) 1 ml In Amino Acid 5%-D15w 1,000 ml @ 45 mls /hr IV .[id number] [facility] Rx#: [id number] propofoL 1,000 mg In 58.652 Empty Bag 1 bag @ 10 MCG/ KG/MIN 4.854 mls/hr IV . [id number] [facility] Rx#:[id number] Tube Feeding 80 20 170 TPN/PPN 45 Sodium Acetate 30 meq 45 Potassium Chloride 30 meq Calcium Gluconate 1 gm Mvi, Adult No.4 with Vit K 10 ml Trace (Conc-1Ml/ Dose) 1 ml In Amino Acid 5%-D15w 1,000 ml @ 45 mls /hr IV .[id number] [facility] Rx#: [id number] Other 30 60 Output: Urine 1045 1265 390 Stool 1 Hemodialysis 2000 Other: Voiding Method Indwelling Catheter Indwelling Catheter Indwelling Catheter ABP, PAP, CO, CI - Last Documented Arterial Blood Pressure 129/50 - Labs CBC & Chem 7: 03/18/20 09:50 03/19/20 04:25 Labs: Abnormal Lab Results - Last 24 Hours (Table) 03/18/20 03/18/20 03/19/20 Range/Units 17:32 23:23 04:25 Sodium 136 L (137-145) mmol/L BUN 100 H (9-20) mg/dL Creatinine 3.09 H (0.66-1.25) mg/dL Glucose 112 H (74-99) mg/dL POC Glucose (mg/dL) 126 H 131 H (75-99) mg/dL Calcium 8.1 L (8.4-10.2) mg/dL Phosphorus 9.4 H* (2.5-4.5) mg/dL Alkaline Phosphatase 154 H (38-126) U/L Total Protein 4.8 L (6.3-8.2) g/dL Albumin 2.3 L (3.5-5.0) g/dL 03/19/20 03/19/20 Range/Units 06:04 11:48 Sodium (137-145) mmol/L BUN (9-20) mg/dL Creatinine (0.66-1.25) mg/dL Glucose (74-99) mg/dL POC Glucose (mg/dL) 121 H 107 H (75-99) mg/dL Calcium (8.4-10.2) mg/dL Phosphorus (2.5-4.5) mg/dL Alkaline Phosphatase (38-126) U/L Total Protein (6.3-8.2) g/dL Albumin (3.5-5.0) g/dL Microbiology - Last 24 Hours (Table) 03/15/20 09:53 Blood Culture - Preliminary Blood No Growth after 96 hours 03/15/20 09:40 Blood Culture - Preliminary Blood No Growth after 72 hours 03/15/20 21:21 Gram Stain - Final Sputum Sputum Culture - Final Selina sp,not albicans/galbr
--- NOTE | 2020-03-19 14:05 | PN ---
PROGRESS NOTE DATE OF SERVICE: 03/19/2020 REASON FOR FOLLOWUP: 1. C. diff colitis. 2. Possible aspiration pneumonitis. 3. Oropharyngeal candidiasis. INTERVAL HISTORY: Patient did spike a fever of 101.1 Fahrenheit this afternoon. The patient is hemodynamically stable, not having any hemodynamic instability with these episodes of fever. FiO2 is currently 35%. No significant purulent secretions in the ET or diarrhea reported by nursing staff, tolerating his tube feeds. PHYSICAL EXAMINATION: Blood pressure 117/59, pulse of 87 temperature on 101.1, he is 97% on 35% FiO2. General description is an elderly male, lying in bed in no distress. RESPIRATORY SYSTEM: Unlabored breathing, decreased breath sounds at bases, no wheeze. HEART: S1, S2. Regular rate and rhythm. ABDOMEN: Soft, no tenderness. LABS: BUN 100, creatinine 3.09. DIAGNOSTIC IMPRESSION AND PLAN: 1. Patient with C. diff colitis and a question of aspiration pneumonitis. Culture from the neck did grow Selina albicans and E coli. The patient is covered with Rocephin and Flagyl for the C difficile as well. 2. Oropharyngeal candidiasis. To continue with Eraxis and will monitor clinical course closely. Repeat CBC, BMP tomorrow. MMODL / IJN: [id number] /
--- NOTE | 2020-03-19 14:54 | P.PN ---
Subjective Progress Note Date: 03/18/20 Principal diagnosis: Fall with Trauma to chest and abdomen Hemoperitoneum with ruptured spleen status post emergent splenectomy Status post tracheostomy for respiratory failure Left-sided pneumothorax has chest tube in place Multiple left-sided rib fractures 03/12/2020, the patient is seen and evaluated for follow-up; follows commands; session of hemodialysis in progress today. He remains on a mechanical ventilator. Chest x-ray findings are unchanged; patient has some low-grade fever and a white cell count is at 19.0. Diarrhea is not present. He is stooling. Surgical site is dry clean and intact. He has a PICC line. The blood cultures of been sent. The patient was placed on a combination of daptomycin and Diflucan. He remains on oral vancomycin and IV Flagylregarding his C. diff colitis. His cardiac rhythm is sinu; remains on Eliquis for now. Tolerating enteral feeding for nutritional support. NG tube is in place. PEG tube is to follow. 03/13/2020, the patient is seen and evaluated in ICU; currently awake and following commands; remains on a mechanical ventilator. Same vent settings. He is undergoing another session of dialysis. He is having a low-grade fever. Sepsis workup still in progress. Blood cultures of been sent. Results are still pending for now. Meanwhile, the patient's currently covered with a combination of Eraxis, daptomycin, and he is also on IV Flagyl and oral van comycin regarding C. diff colitis. His chest x-ray is unchanged. He is cardiac rhythm is atrial fibrillation. He is receiving enteral feeding for nutritional support. Plan is for possible PEG tube placement 03/14/2020 Patient had episodes of emesis with possible aspiration and became tachypneic and restless; Precedex if needed to control agitation; tube feeds held. Affect some of the abdomen was done that shows possible small bowel obstruction, partial and the patient has fecal stasis/infection the right lower quadrant area; being treated for C. diff colitis with a combination of vancomycin and IV Flagyl. The chest x-ray from today shows further clearing of the bilateral pulmonary infiltrates and this was done before the aspiration episode. No hemodialysis will be done today. His blood gases showed a pH of 7.5 with a pCO2 of 35 and pO2 of 92. Is still having episodic fever. The sputum around the tracheostomy tube was positive for gram-negative and I added the troponin. ID is on the case and the patient is taking a combination of daptomycin and Eraxis. He is on no Cardizem drip for now. . 03/15/2020 Patient is currently lying in the bed seems to be agitated and trying to get out of bed. Patient was extubated. Patient did have 2 episodes of vomiting and may have aspirated. Tube feedings are on hold. Patient does have distended abdo men. Patient was continued on vancomycin by mouth which was changed to metronidazole currently. Patient is on low-dose norepinephrine drip as result. Patient underwent hemodialysis today. Patient is afebrile today. Currently being continued on antibiotics in the form of meropenem, metronidazole and also vancomycin by mouth and Eraxis. ID and pulmonary and general surgery is on board. Discussed with his at bedside. 03/16/2020 Patient is currently lying in the bed comfortably. Less agitation and mentation did improve compared to yesterday. Patient is status post trach placement and assist-control. Enteral feeding is on hold due to abdominal distention and ileus. General surgery is planning for PEG tube placement tomorrow. Currently being continued antibiotics in the form of Flagyl and oral vancomycin is on hold. Chest x-ray showed multiple left-sided rib fractures with left lower lobe consolidation and small effusion. Abdominal x-ray showed nonspecific abdominal with persistent distention of the bowel loops greater in the right hemiabdomen unchanged compared to yesterday. Laboratory data showed WBC 33.3, hemoglobin 7.7 and platelets 438 BUN 76 and creatinine 2.66 03/17/2020 Patient is currently lying in the bed comfortably. Awake and alert but could not communicate. Remains tracheal tube and assist control. Patient is status post PEG tube placement today. Patient was started on amiodarone. Patient did have bowel movement last night and abdominal distention is improved. NG tube has been discontinued after PEG tube placement. Cultures are negative so far. Chest x-ray showed volume overload versus mild pulmonary edema. Laboratory data showed WBC improved to 27.5. Hemoglobin 7.8 and platelets 492. BUN 96 and creatinine went up to 3.31. Phosphorus 10.5 calcium 7.9. Pulmonary and general surgery is on board. 03/18/2020 Patient is currently status post PEG tube placement and tracheostomy. Currently on mechanical ventilation. Patient was started on enteral feeding and TPN will be discontinued. Patient is off of. Patient is more awake but could not indicate.. Chest x-ray showed nonspecific changes in the base and no clear-cut evidence of pneumonia. Patient's heart rate is controlled. Off pressor support. Patient had afebrile. Currently being continued on Flagyl and ceftriaxone for possible aspiration pneumonitis. ID and pulmonary and cardiology is on board. Laboratory data showed WBC 18.6, implants on 0.9 and BUN 84 creatinine 2.66. Next hemanalysis is tomorrow. PT was initiated. Current medications reviewed. Objective - Vital Signs Vital signs: Vital Signs Temp 98.5 F 03/18/20 20:00 Pulse 89 03/18/20 21:00 Resp 23 03/18/20 21:00 BP 136/76 03/18/20 21:00 Pulse Ox 98 03/18/20 21:00 Intake & Output 03/18/20 03/18/20 03/19/20 06:59 18:59 06:59 Intake Total 1038.968 210.239 6858 Output Total 665 1045 335 Balance 373.968 -611.348 851 Weight 77.6 kg Intake: IV 385 220 150 Sodium Acetate 30 meq 45 90 Potassium Chloride 30 meq Calcium Gluconate 1 gm Mvi, Adult No.4 with Vit K 10 ml Trace (Conc-1Ml/ Dose) 1 ml In Amino Acid 5%-D15w 1,000 ml @ 45 mls /hr IV .[id number] [facility] Rx#: [id number] Sodium Chloride 0.9% 1, 240 220 60 000 ml @ 20 mls/hr IV . Q24H [facility] Rx#:[id number] metroNIDAZOLE-NS PMX 500 100 mg In Saline 1 100ml.bag @ 100 mls/hr IVPB Q8HR [facility] Rx#:[id number] Intake, IV Titration 158.968 58.652 1026 Amount Sodium Acetate 30 meq 1026 Potassium Chloride 30 meq Calcium Gluconate 1 gm Mvi, Adult No.4 with Vit K 10 ml Trace (Conc-1Ml/ Dose) 1 ml In Amino Acid 5%-D15w 1,000 ml @ 45 mls /hr IV .[id number] [facility] Rx#: [id number] propofoL 1,000 mg In 158.968 58.652 Empty Bag 1 bag @ 10 MCG/ KG/MIN 4.854 mls/hr IV . [id number] [facility] Rx#:[id number] Tube Feeding 80 10 TPN/PPN 495 45 Sodium Acetate 30 meq 495 45 Potassium Chloride 30 meq Calcium Gluconate 1 gm Mvi, Adult No.4 with Vit K 10 ml Trace (Conc-1Ml/ Dose) 1 ml In Amino Acid 5%-D15w 1,000 ml @ 45 mls /hr IV .[id number] [facility] Rx#: [id number] Other 30 Output: Urine 665 1045 335 Other: Voiding Method Indwelling Catheter Indwelling Catheter Indwelling Catheter ABP, PAP, CO, CI - Last Documented Arterial Blood Pressure 129/50 - Exam PHYSICAL EXAMINATION: Patient is awake and alert but less agitated. .. HEENT: Normocephalic. Neck is supple. Pupils reactive. Nostrils clear. Oral cavity is moist. Ears reveal no drainage. Neck reveals no JVD, carotid bruits, or thyromegaly. CHEST EXAMINATION: Trachea is central. Tracheal tube in place. On mechanical ventilator.Symmetrical expansion. Left basilar crackles and diminished throughout.. CARDIAC: Normal S1, S2 with no gallops. No murmurs ABDOMEN: Soft. PEG +, Bowel sounds present. No organomegaly. No abdominal bruits. Extremities: 2+ edema. No clubbing or cyanosis Neurologically awake, alert with well-coordinated movements. No gross focal deficits noted Skin: No rash or skin lesions. Psychiatric: cooperative. Musculoskeletal: No joint swelling or deformity. - Labs CBC & Chem 7: 03/18/20 09:50 03/19/20 04:25 Labs: Abnormal Lab Results - Last 24 Hours (Table) 03/17/20 03/17/20 03/18/20 Range/Units 23:16 23:53 09:50 WBC (3.8-10.6) k/uL RBC (4.30-5.90) m/uL Hgb (13.0-17.5) gm/dL Hct (39.0-53.0) % MCHC (31.0-37.0) g/dL RDW (11.5-15.5) % Neutrophils # (1.3-7.7) k/uL Monocytes # (0-1.0) k/uL APTT 49.0 H (22.0-30.0) sec Sodium 135 L (137-145) mmol/L Carbon Dioxide 20 L (22-30) mmol/L BUN 84 H (9-20) mg/dL Creatinine 2.66 H (0.66-1.25) mg/dL Glucose 109 H (74-99) mg/dL POC Glucose (mg/dL) 116 H (75-99) mg/dL Calcium 7.7 L (8.4-10.2) mg/dL Phosphorus 8.1 H (2.5-4.5) mg/dL Alkaline Phosphatase 137 H (38-126) U/L Total Protein 4.7 L (6.3-8.2) g/dL Albumin 2.3 L (3.5-5.0) g/dL 03/18/20 03/18/20 03/18/20 Range/Units 09:50 11:40 17:32 WBC 15.6 H (3.8-10.6) k/uL RBC 2.90 L (4.30-5.90) m/uL Hgb 7.9 L (13.0-17.5) gm/dL Hct 26.5 L (39.0-53.0) % MCHC 29.7 L (31.0-37.0) g/dL RDW 17.6 H (11.5-15.5) % Neutrophils # 12.3 H (1.3-7.7) k/uL Monocytes # 1.3 H (0-1.0) k/uL APTT (22.0-30.0) sec Sodium (137-145) mmol/L Carbon Dioxide (22-30) mmol/L BUN (9-20) mg/dL Creatinine (0.66-1.25) mg/dL Glucose (74-99) mg/dL POC Glucose (mg/dL) 123 H 126 H (75-99) mg/dL Calcium (8.4-10.2) mg/dL Phosphorus (2.5-4.5) mg/dL Alkaline Phosphatase (38-126) U/L Total Protein (6.3-8.2) g/dL Albumin (3.5-5.0) g/dL Microbiology - Last 24 Hours (Table) 03/15/20 09:40 Blood Culture - Preliminary Blood No Growth after 72 hours 03/15/20 09:53 Blood Culture - Preliminary Blood No Growth after 72 hours 03/15/20 21:21 Gram Stain - Final Sputum Sputum Culture - Final Selina sp,not albicans/galbr 03/11/20 17:55 Blood Culture - Final Blood No Growth after 144 hours Assessment and Plan Assessment: 1. 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 2. Status post tracheostomy for respiratory failure. Patient is also status post PEG tube placement and was started on tube feedings. 3. Status post fall off a ladder with, to chest and abdomen 4. Left-sided pneumothorax has chest tube in place 5. Multiple left-sided rib fractures 6. Alcohol intoxication 7. Acute hypoxic ventilatory dependent respiratory failure. 8. Chronic pain medication 9. Paroxysmal Atrial fibrillation with rapid ventricular response. Rate controlled. Patient now on Eliquis 10. C. diff colitis 11. Acute kidney injury . Followed closely by nephrology. 12. Acute blood loss anemia status post blood transfusion PLAN: -Patient is status post tracheostomy and PEG tube placement. Tube feedings were today. -Continue ICU management -Continue oral vancomycin, IV ceftriaxone and flagyl -Hemodialysis per nephrology -smiley for DVT prophylaxis Time with Patient: Greater than 30
--- NOTE | 2020-03-19 15:26 | P.DS ---
Providers Date of admission: 02/17/20 18:30 Expected date of discharge: 03/19/20 Attending physician: Russell Ivy Consults: 02/17/20 19:40 Consult Physician Routine Consulting Provider: Ayanna Royal Consult Reason/Comments: Intensive care management Do you want consulting provider notified?: Yes Consult Physician Routine Consulting Provider: Gucci Loera Consult Reason/Comments: Management Do you want consulting provider notified?: Yes 02/17/20 19:41 Consult Physician Routine Consulting Provider: Ravi Martin Consult Reason/Comments: Postsplenectomy Do you want consulting provider notified?: Yes 02/24/20 15:52 Consult Physician Routine Consulting Provider: Russell Ivy Consult Reason/Comments: trach/peg Do you want consulting provider notified?: Already Contacted 02/25/20 08:22 Consult Physician Routine Consulting Provider: Aubrey Boucher Consult Reason/Comments: afib Do you want consulting provider notified?: Yes 02/27/20 09:30 Consult Physician Routine Consulting Provider: Alhaji Bartlett Consult Reason/Comments: altered mental staus Do you want consulting provider notified?: Yes 03/01/20 12:48 Consult to Anesthesia Routine Consulting Provider: Anesthesia,Services Consult Reason/Comments: rule out meningitis 03/03/20 08:09 Consult Physician Stat Consulting Provider: River Cruz Consult Reason/Comments: increased creat and BUN Do you want consulting provider notified?: Already Contacted 03/04/20 08:25 Consult Physician Stat Consulting Provider: Duc Jovel Consult Reason/Comments: Dialysis catheter Do you want consulting provider notified?: Yes Primary care physician: [facility] Course: Discharge diagnosis 1. 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 2. Status post tracheostomy for respiratory failure 3. Status post fall off a ladder with, to chest and abdomen 4. Left-sided pneumothorax 5. Multiple left-sided rib fractures 6. Alcohol intoxication 7. Acute hypoxic ventilatory dependent respiratory failure. 8. Chronic pain medication 9. Atrial fibrillation with rapid ventricular response. Patient now on Eliquis 10. C. diff colitis 11. Acute kidney injury . Followed closely by nephrology. 12. Acute blood loss anemia status post blood transfusion 13. Ileus 14. Severe protein calorie malnutrition status post PEG tube placement Hospital course This is a 69-year-old male who fell 15 feet off the top of the ladder. Patient apparently was on a ladder on the side of his house. He fell off the ladder. The fall was unwitnessed. He called His who called EMS. The patient was hypotensive in the field and remained hypotensive in the emergency room. The patient is in shock. He is unable to give any significant medical history. Patient's CAT scan was performed showing a large left pneumothorax as well as multiple rib fractures and hemoperitoneum and a ruptured spleen. The patient was taken the operating room immediately. Patient underwent emergent splenectomy on 02/25/2020. Patient has had a prolonged hospitalization and has remained in the ICU. He has been on mechanical ventilation for a prolonged period of time and did require tracheostomy placement. He just recently had PEG tube placed on 03/17/2020. Tube feedings are still being titrated. Patient also required dialysis to be started during this admission. He has a dialysis catheter in place. Patient will be discharged to select specialty. Patient did have a temp of 100.2 this morning. Patient is stable for discharge. Please refer to chart for any further details. Physician It Trainee note has been reviewed by physician. Signing provider agrees with the documented findings, assessment, and plan of care. Patient Condition at Discharge: Stable Plan - Discharge Summary Discharge Rx Participant: Yes New Discharge Prescriptions: New Darbepoetin Telly [Aranesp] 40 mcg SQ Q7D syringe Amiodarone [Cordarone] 400 mg PO BID tab Ipratropium-Albuterol Nebulize [Duoneb 0.5 mg-3 mg/3 ml Soln] 3 ml INHALATION RT-Q4H ml Apixaban [Eliquis] 2.5 mg PO BID tablet Furosemide [Lasix] 80 mg PO BID@0900,1600 tab Metoprolol Tartrate [Lopressor] 25 mg PO BID tab MORPHINE ORAL HARRIET 2mg/mL [Morphine Oral Soln 2 MG/ML] 10 mg PO Q8HR ml Chlorhexidine Gluconate [Peridex] 15 ml MUCOUS MEM BID ml Calcium Acetate [PhosLo] 667 mg PO TID-W/MEALS tab QUEtiapine [SEROquel] 100 mg PO HS tab Hydrophilic Cream [Triad Cream] 1 applic TOPICAL DAILY applic Thiamine [Vitamin B-1] 100 mg PO DAILY tab Continue Tamsulosin HCl [Flomax] 0.8 mg PO HS Finasteride [Proscar] 5 mg PO HS Discontinued traZODone HCL [Desyrel] 50 mg PO HS PRN PRN Reason: SLEEP atenoloL [Atenolol] 25 mg PO HS Tadalafil [Cialis] 20 mg PO Q36H PRN PRN Reason: E.D. Rosuvastatin Calcium [Crestor] 10 mg PO HS Morphine Sulfate ER [Ms Contin] 15 mg PO Q12HR Discharge Medication List Finasteride [Proscar] 5 mg PO HS 02/17/20 [History] Tamsulosin HCl [Flomax] 0.8 mg PO HS 02/17/20 [History] Amiodarone [Cordarone] 400 mg PO BID tab 03/19/20 [Rx] Apixaban [Eliquis] 2.5 mg PO BID tablet 03/19/20 [Rx] Calcium Acetate [PhosLo] 667 mg PO TID-W/MEALS tab 03/19/20 [Rx] Chlorhexidine Gluconate [Peridex] 15 ml MUCOUS MEM BID ml 03/19/20 [Rx] Darbepoetin Telly [Aranesp] 40 mcg SQ Q7D syringe 03/19/20 [Rx] Furosemide [Lasix] 80 mg PO BID@0900,1600 tab 03/19/20 [Rx] Hydrophilic Cream [Triad Cream] 1 applic TOPICAL DAILY applic 03/19/20 [Rx] Ipratropium-Albuterol Nebulize [Duoneb 0.5 mg-3 mg/3 ml Soln] 3 ml INHALATION RT-Q4H ml 03/19/20 [Rx] MORPHINE ORAL HARRIET 2mg/mL [Morphine Oral Soln 2 MG/ML] 10 mg PO Q8HR ml 03/19/20 [Rx] Metoprolol Tartrate [Lopressor] 25 mg PO BID tab 03/19/20 [Rx] QUEtiapine [SEROquel] 100 mg PO HS tab 03/19/20 [Rx] Thiamine [Vitamin B-1] 100 mg PO DAILY tab 03/19/20 [Rx] Follow up Appointment(s)/Referral(s): None,Stated [REFERRING] - 1-2 days Ishaan Dallas MD [STAFF PHYSICIAN] - 10 Days Discharge Disposition: [facility]
[2020-03-19 17:01] VITALS: BP 119/59; PULSE 87; RESP 25
[2020-03-19] MEDS ORDERED: [UNRECOGNIZED DRUG - REMARK] IV SCH ×5 (18:00)
--- NOTE | 2020-03-22 15:51 | CDI ---
Documentation Clarification Form Date: 03/22/20 From: Janis Perez Phone: If you have a question about this query, please contact Oralia Lam Machine Repairer at [phone] between 8am and 5pm. Admit Date: 02/17/20 Discharge Date:03/19/20 Patient Name: Tejinder Boyer Visit Number: [id number] ATTENTION: The Clinical Documentation Specialists (CDI) and [facility] Coding Staff appreciate your assistance in clarifying documentation. Please respond to the clarification below the line at the bottom and electronically sign. The CDI & [facility] Coding staff will review the response and follow-up if needed. Please note: Queries are made part of the Legal Health Record. If you have any questions, please contact the author of this message via ITS. Dear Dr. Ivy The patient presented with the following: grade 3 spleenic laceration and rupture due to fall from 15 feet. Possible sepsis is documented in Dr. Hopson's 03/[address] Loera's 03/[address] Royal documented sepsis workup still in progress in his progress notes from 03/13 - 03/18. Fungemia, maintained on antifungal treatment is documented in Dr. Gutierres's 03/13 progress note. History/Risk Factors: Acute hypoxic respiratory failure, intubated, mechanical vent, possible component of aspiration pneumonia documented beginning 02/20, oropharyngeal candidiasis, hemorrhagic shock Clinical Indicators: Elevated WBC, elevated lactic acid WBC: 21.7 on 02/16 and stayed elevated throughout the stay Lactic acid: 4.5 and stayed elevated throughout the stay Blood cultures: No growth. Dr. Gutierres documented fungemia in the 03/13 progress notes Vitals signs on admission: T. 97.6 on admit, 100.6 on 02/18, 101.2 on 02/23, 102.1 on 02/24; P. 87 on admit, 113 on 02/17, 174 on 02/18, 117 on 02/23, 101 on 02/24; R. 16 on admit, 26 on 02/17, 37 on 02/23, 44 on 02/24 C-reactive protein 159.4 on 02/08, 181.7 on 03/12 Treatment: Antibiotics: IV Kefzol, IV Cefepime, IV Piperacillin Antifungals: IV Anindulafungin, IV Fluconazole IV Bolus: 1 L NS on 02/16, 1 L NS on 02/18 In your professional opinion, please clarify if these findings signify one of the following conditions, whether the condition is POA, and cause, if known: Condition Sepsis ruled out xxSIRS, without underlying infectious process Sepsis Severe Sepsis Septic Shock Other, please specify Unable to determine Present on Admission xxYes No Identify the (suspected) organism Link or clarify if there is associated (due to/with): Organ failure Shock SIRS Criteria (2 or more of the following may indicate SIRS): -Temperature < 96.8F (36C) or > 101.0F (38.3C) -Heart Rate > 90 bpm -Respiratory Rate > 20 breaths/min or PaCO2 < 32 mmHg -White Blood Cell Count > 12,000 or < 4,000 cells/mm3 or > 10% bands -Lactate >2.0 mmol/L (>4.0 is equivalent to septic shock) Surgeries without underlying infectious process Present on admission Associated with shock MTDD
--- NOTE | 2020-03-24 08:45 | P.OP ---
Date of Procedure: 02/17/20 Preoperative Diagnosis: Splenic laceration Postoperative Diagnosis: Splenic laceration Procedure(s) Performed: Exploratory laparotomy Splenectomy Anesthesia: JEANNA Surgeon: Russell Ivy Estimated Blood Loss (ml): 200 Pathology: other (Spleen) Condition: critical Disposition: ICU Operative Findings: 2000 mL mL hemoperitoneum Description of Procedure: The patient's placed on the operative table in supine position. He received general anesthesia. The abdomen was prepped and draped usual sterile fashion. His evidence entered through midline incision. The Bookwalter tract placed the wound. There was a large hemoperitoneum. The Cell Saver was used to aspirate blood. There is approximately 2000 mL of blood and clot in the panel cavity. The abdomen was packed. The spleen was mobilized towards the midline by packing posteriorly. The short gastric vessels were divided using the Enseal device. The splenic hilum was then ligated between Kae clamps then transected. The splenic vessels were then ligated with 0 silk ties. There is no further bleeding seen. The abdomen was irrigated. No further bleeding was seen. The fascia was then closed with looped #1 PDS suture. Skin was closed ramonita. Patient was sent to the ICU intubated in critical condition.
--- NOTE | 2020-03-24 20:58 | P.PN ---
Subjective Progress Note Date: 03/19/20 Principal diagnosis: Fall with Trauma to chest and abdomen Hemoperitoneum with ruptured spleen status post emergent splenectomy Status post tracheostomy for respiratory failure Left-sided pneumothorax has chest tube in place Multiple left-sided rib fractures 03/12/2020, the patient is seen and evaluated for follow-up; follows commands; session of hemodialysis in progress today. He remains on a mechanical ventilator. Chest x-ray findings are unchanged; patient has some low-grade fever and a white cell count is at 19.0. Diarrhea is not present. He is stooling. Surgical site is dry clean and intact. He has a PICC line. The blood cultures of been sent. The patient was placed on a combination of daptomycin and Diflucan. He remains on oral vancomycin and IV Flagylregarding his C. diff colitis. His cardiac rhythm is sinu; remains on Eliquis for now. Tolerating enteral feeding for nutritional support. NG tube is in place. PEG tube is to follow. 03/13/2020, the patient is seen and evaluated in ICU; currently awake and following commands; remains on a mechanical ventilator. Same vent settings. He is undergoing another session of dialysis. He is having a low-grade fever. Sepsis workup still in progress. Blood cultures of been sent. Results are still pending for now. Meanwhile, the patient's currently covered with a combination of Eraxis, daptomycin, and he is also on IV Flagyl and oral van comycin regarding C. diff colitis. His chest x-ray is unchanged. He is cardiac rhythm is atrial fibrillation. He is receiving enteral feeding for nutritional support. Plan is for possible PEG tube placement 03/14/2020 Patient had episodes of emesis with possible aspiration and became tachypneic and restless; Precedex if needed to control agitation; tube feeds held. Affect some of the abdomen was done that shows possible small bowel obstruction, partial and the patient has fecal stasis/infection the right lower quadrant area; being treated for C. diff colitis with a combination of vancomycin and IV Flagyl. The chest x-ray from today shows further clearing of the bilateral pulmonary infiltrates and this was done before the aspiration episode. No hemodialysis will be done today. His blood gases showed a pH of 7.5 with a pCO2 of 35 and pO2 of 92. Is still having episodic fever. The sputum around the tracheostomy tube was positive for gram-negative and I added the troponin. ID is on the case and the patient is taking a combination of daptomycin and Eraxis. He is on no Cardizem drip for now. . 03/15/2020 Patient is currently lying in the bed seems to be agitated and trying to get out of bed. Patient was extubated. Patient did have 2 episodes of vomiting and may have aspirated. Tube feedings are on hold. Patient does have distended abdo men. Patient was continued on vancomycin by mouth which was changed to metronidazole currently. Patient is on low-dose norepinephrine drip as result. Patient underwent hemodialysis today. Patient is afebrile today. Currently being continued on antibiotics in the form of meropenem, metronidazole and also vancomycin by mouth and Eraxis. ID and pulmonary and general surgery is on board. Discussed with his at bedside. 03/16/2020 Patient is currently lying in the bed comfortably. Less agitation and mentation did improve compared to yesterday. Patient is status post trach placement and assist-control. Enteral feeding is on hold due to abdominal distention and ileus. General surgery is planning for PEG tube placement tomorrow. Currently being continued antibiotics in the form of Flagyl and oral vancomycin is on hold. Chest x-ray showed multiple left-sided rib fractures with left lower lobe consolidation and small effusion. Abdominal x-ray showed nonspecific abdominal with persistent distention of the bowel loops greater in the right hemiabdomen unchanged compared to yesterday. Laboratory data showed WBC 33.3, hemoglobin 7.7 and platelets 438 BUN 76 and creatinine 2.66 03/17/2020 Patient is currently lying in the bed comfortably. Awake and alert but could not communicate. Remains tracheal tube and assist control. Patient is status post PEG tube placement today. Patient was started on amiodarone. Patient did have bowel movement last night and abdominal distention is improved. NG tube has been discontinued after PEG tube placement. Cultures are negative so far. Chest x-ray showed volume overload versus mild pulmonary edema. Laboratory data showed WBC improved to 27.5. Hemoglobin 7.8 and platelets 492. BUN 96 and creatinine went up to 3.31. Phosphorus 10.5 calcium 7.9. Pulmonary and general surgery is on board. 03/18/2020 Patient is currently status post PEG tube placement and tracheostomy. Currently on mechanical ventilation. Patient was started on enteral feeding and TPN will be discontinued. Patient is off of. Patient is more awake but could not indicate.. Chest x-ray showed nonspecific changes in the base and no clear-cut evidence of pneumonia. Patient's heart rate is controlled. Off pressor support. Patient had afebrile. Currently being continued on Flagyl and ceftriaxone for possible aspiration pneumonitis. ID and pulmonary and cardiology is on board. Laboratory data showed WBC 18.6, implants on 0.9 and BUN 84 creatinine 2.66. Next hemanalysis is tomorrow. PT was initiated. 03/19/2020 Patient is currently awake and alert and responding to simple commands. Currently maintained on tracheostomy tube with mechanical ventilation. Status post PEG tube placement and tolerating tube feeding. Diarrhea improved as well. Patient will be continued on antibiotics now ceftriaxone and Flagyl for possible aspiration pneumonia/pneumonitis. Chest x-ray today showed correlate for pulmonary edema. Congestive heart failure, pneumonia not excluded. Otherwise patient is hemodynamically stable and is being transferred to long-term acute care facility. Discharge medication reconciliation was done. Current medications reviewed. Objective - Vital Signs Vital signs: Vital Signs Temp 101.4 F H 03/19/20 12:00 Pulse 81 03/19/20 14:00 Resp 22 03/19/20 14:00 BP 102/48 03/19/20 14:00 Pulse Ox 97 03/19/20 14:00 Intake & Output 03/18/20 03/19/20 03/19/20 18:59 06:59 18:59 Intake Total 009.552 1858 1569.75 Output Total 1045 1266 2530 Balance -611.348 475 -960.25 Weight 74.6 kg 74.6 kg Intake: IV 220 695 545 Anidulafungin 100 mg In 100 Sodium Chloride 0.9% 100 ml @ 84 mls/hr IVPB DAILY [facility] Rx#:[id number] Sodium Acetate 30 meq 495 135 Potassium Chloride 30 meq Calcium Gluconate 1 gm Mvi, Adult No.4 with Vit K 10 ml Trace (Conc-1Ml/ Dose) 1 ml In Amino Acid 5%-D15w 1,000 ml @ 45 mls /hr IV .[id number] [facility] Rx#: [id number] Sodium Chloride 0.9% 1, 220 200 160 000 ml @ 20 mls/hr IV . Q24H [facility] Rx#:[id number] cefTRIAXone 1 gm In 50 Sodium Chloride 0.9% 50 ml @ 100 mls/hr IVPB Q24HR [facility] Rx#:[id number] metroNIDAZOLE-NS PMX 500 100 mg In Saline 1 100ml.bag @ 100 mls/hr IVPB Q8HR [facility] Rx#:[id number] Intake, IV Titration 58.652 1026 694.75 Amount Sodium Acetate 30 meq 25 Calcium Gluconate 1 gm Mvi, Adult No.4 with Vit K 10 ml Trace (Conc-1Ml/ Dose) 1 ml In Amino Acid 5%-D15w 1,000 ml @ 45 mls /hr IV .Q23H2M [facility] Rx#: [id number] Sodium Acetate 30 meq 1026 669.75 Potassium Chloride 30 meq Calcium Gluconate 1 gm Mvi, Adult No.4 with Vit K 10 ml Trace (Conc-1Ml/ Dose) 1 ml In Amino Acid 5%-D15w 1,000 ml @ 45 mls /hr IV .[id number] [facility] Rx#: [id number] propofoL 1,000 mg In 58.652 Empty Bag 1 bag @ 10 MCG/ KG/MIN 4.854 mls/hr IV . [id number] [facility] Rx#:[id number] Tube Feeding 80 20 230 TPN/PPN 45 Sodium Acetate 30 meq 45 Potassium Chloride 30 meq Calcium Gluconate 1 gm Mvi, Adult No.4 with Vit K 10 ml Trace (Conc-1Ml/ Dose) 1 ml In Amino Acid 5%-D15w 1,000 ml @ 45 mls /hr IV .[id number] [facility] Rx#: [id number] Other 30 100 Output: Urine 1045 1265 530 Stool 1 Hemodialysis 1999 Other: Voiding Method Indwelling Catheter Indwelling Catheter Indwelling Catheter ABP, PAP, CO, CI - Last Documented Arterial Blood Pressure 129/50 - Exam PHYSICAL EXAMINATION: Patient is awake and alert but less agitated. .. HEENT: Normocephalic. Neck is supple. Pupils reactive. Nostrils clear. Oral cavity is moist. Ears reveal no drainage. Neck reveals no JVD, carotid bruits, or thyromegaly. CHEST EXAMINATION: Trachea is central. Tracheal tube in place. On mechanical ventilator.Symmetrical expansion. Left basilar crackles and diminished throughout.. CARDIAC: Normal S1, S2 with no gallops. No murmurs ABDOMEN: Soft. PEG +, Bowel sounds present. No organomegaly. No abdominal bruits. Extremities: 2+ edema. No clubbing or cyanosis Neurologically awake, alert with well-coordinated movements. No gross focal deficits noted Skin: No rash or skin lesions. Psychiatric: cooperative. Musculoskeletal: No joint swelling or deformity. - Labs CBC & Chem 7: 03/18/20 09:50 03/19/20 04:25 Labs: Abnormal Lab Results - Last 24 Hours (Table) 03/18/20 03/18/20 03/19/20 Range/Units 17:32 23:23 04:25 Sodium 136 L (137-145) mmol/L BUN 100 H (9-20) mg/dL Creatinine 3.09 H (0.66-1.25) mg/dL Glucose 112 H (74-99) mg/dL POC Glucose (mg/dL) 126 H 131 H (75-99) mg/dL Calcium 8.1 L (8.4-10.2) mg/dL Phosphorus 9.4 H* (2.5-4.5) mg/dL Alkaline Phosphatase 154 H (38-126) U/L Total Protein 4.8 L (6.3-8.2) g/dL Albumin 2.3 L (3.5-5.0) g/dL 03/19/20 03/19/20 Range/Units 06:04 11:48 Sodium (137-145) mmol/L BUN (9-20) mg/dL Creatinine (0.66-1.25) mg/dL Glucose (74-99) mg/dL POC Glucose (mg/dL) 121 H 107 H (75-99) mg/dL Calcium (8.4-10.2) mg/dL Phosphorus (2.5-4.5) mg/dL Alkaline Phosphatase (38-126) U/L Total Protein (6.3-8.2) g/dL Albumin (3.5-5.0) g/dL Microbiology - Last 24 Hours (Table) 03/15/20 09:40 Blood Culture - Preliminary Blood No Growth after 96 hours 03/15/20 09:53 Blood Culture - Preliminary Blood No Growth after 96 hours Assessment and Plan Assessment: 1. 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 2. Status post tracheostomy for respiratory failure. Patient is also status post PEG tube placement and was started on tube feedings. 3. Status post fall off a ladder with, to chest and abdomen 4. Left-sided pneumothorax has chest tube in place which has been removed. 5. Multiple left-sided rib fractures 6. Alcohol intoxication 7. Acute hypoxic ventilatory dependent respiratory failure. 8. Chronic neck pain. On MS Contin twice daily at home. 9. Paroxysmal Atrial fibrillation with rapid ventricular response. Rate controlled. Patient now on Eliquis 10. C. diff colitis 11. Acute kidney injury . Currently on hemodialysis initiated. Followed closely by nephrology. 12. Acute blood loss anemia status post blood transfusion 13. Acute metabolic and toxic encephalopathy 14. Acute C. diff colitis status post oral vancomycin treatment 15. possible aspiration pneumonitis 16. ileus and possible small bowel obstruction resolved now. PLAN: -Patient is status post tracheostomy and PEG tube placement. Tolerating Tube feedings. -Continue ICU management -Continue IV ceftriaxone and flagyl -Hemodialysis per nephrology -lovenox for DVT prophylaxis - Patient is being transferred to long-term acute care facility. Time with Patient: Greater than 30
== END 2020-03-19 18:43 | DRG 3 ==
LOC: EC 17:52 → 2SICU 18:30
PROVIDERS: ADMIT Surgery; ATTEND Surgery
PROC: 07TP0ZZ Resection of Spleen, Open Approach (ICD-10-PCS; 2020-02-17)
PROC: 5A1955Z Respiratory Ventilation, Greater than 96 Consecutive Hours (ICD-10-PCS; 2020-02-17)
PROC: 0BH17EZ Insertion of Endotracheal Airway into Trachea, Via Natural or Artificial Opening (ICD-10-PCS; 2020-02-17)
PROC: 30233N1 Transfusion of Nonautologous Red Blood Cells into Peripheral Vein, Percutaneous Approach (ICD-10-PCS; 2020-02-17)
PROC: 0W9B30Z Drainage of Left Pleural Cavity with Drainage Device, Percutaneous Approach (ICD-10-PCS; 2020-02-18)
PROC: 03HC33Z Insertion of Infusion Device into Left Radial Artery, Percutaneous Approach (ICD-10-PCS; 2020-02-18)
PROC: 0D9670Z Drainage of Stomach with Drainage Device, Via Natural or Artificial Opening (ICD-10-PCS; 2020-02-18)
PROC: 05HN33Z Insertion of Infusion Device into Left Internal Jugular Vein, Percutaneous Approach (ICD-10-PCS; 2020-02-19)
PROC: 0BH17EZ Insertion of Endotracheal Airway into Trachea, Via Natural or Artificial Opening (ICD-10-PCS; 2020-02-19)
PROC: 0B113F4 Bypass Trachea to Cutaneous with Tracheostomy Device, Percutaneous Approach (ICD-10-PCS; principal; 2020-02-25 11:15)
PROC: 0DJ08ZZ Inspection of Upper Intestinal Tract, Via Natural or Artificial Opening Endoscopic (ICD-10-PCS; principal; 2020-02-25 11:15)
PROC: 02HV33Z Insertion of Infusion Device into Superior Vena Cava, Percutaneous Approach (ICD-10-PCS; 2020-02-26)
PROC: 0B9C7ZX Drainage of Right Upper Lung Lobe, Via Natural or Artificial Opening, Diagnostic (ICD-10-PCS; 2020-02-29)
PROC: 009U3ZX Drainage of Spinal Canal, Percutaneous Approach, Diagnostic (ICD-10-PCS; 2020-03-02)
PROC: 04HY32Z Insertion of Monitoring Device into Lower Artery, Percutaneous Approach (ICD-10-PCS; 2020-03-04)
PROC: 4A133J1 Monitoring of Arterial Pulse, Peripheral, Percutaneous Approach (ICD-10-PCS; 2020-03-04)
PROC: 4A133B1 Monitoring of Arterial Pressure, Peripheral, Percutaneous Approach (ICD-10-PCS; 2020-03-04)
PROC: 06HY33Z Insertion of Infusion Device into Lower Vein, Percutaneous Approach (ICD-10-PCS; 2020-03-04)
PROC: 5A1D70Z Performance of Urinary Filtration, Intermittent, Less than 6 Hours Per Day (ICD-10-PCS; 2020-03-04)
PROC: 3E033XZ Introduction of Vasopressor into Peripheral Vein, Percutaneous Approach (ICD-10-PCS; 2020-03-04)
PROC: 4A133B1 Monitoring of Arterial Pressure, Peripheral, Percutaneous Approach (ICD-10-PCS; 2020-03-08)
PROC: 03HY32Z Insertion of Monitoring Device into Upper Artery, Percutaneous Approach (ICD-10-PCS; 2020-03-08)
PROC: 4A133J1 Monitoring of Arterial Pulse, Peripheral, Percutaneous Approach (ICD-10-PCS; 2020-03-08)
PROC: 06P Lower Veins, Removal (ICD-10-PCS; 2020-03-16)
PROC: 0JH63XZ Insertion of Tunneled Vascular Access Device into Chest Subcutaneous Tissue and Fascia, Percutaneous Approach (ICD-10-PCS; 2020-03-16)
PROC: 02HV33Z Insertion of Infusion Device into Superior Vena Cava, Percutaneous Approach (ICD-10-PCS; 2020-03-16)
PROC: 0DH63UZ Insertion of Feeding Device into Stomach, Percutaneous Approach (ICD-10-PCS; 2020-03-17)
PROC: 3E0G76Z Introduction of Nutritional Substance into Upper GI, Via Natural or Artificial Opening (ICD-10-PCS; 2020-03-17)
DX: S36.032A Major laceration of spleen, initial encounter (principal); E43 Unspecified severe protein-calorie malnutrition; G92 Toxic encephalopathy; J69.0 Pneumonitis due to inhalation of food and vomit; J96.01 Acute respiratory failure with hypoxia; K66.1 Hemoperitoneum; K72.00 Acute and subacute hepatic failure without coma; N17.0 Acute kidney failure with tubular necrosis; T79.4XXA Traumatic shock, initial encounter; R57.8 Other shock; S27.0XXA Traumatic pneumothorax, initial encounter; I44.2 Atrioventricular block, complete; K56.600 Partial intestinal obstruction, unspecified as to cause; A04.72 Enterocolitis due to Clostridium difficile, not specified as recurrent; B37.0 Candidal stomatitis; B37.89 Other sites of candidiasis; D62 Acute posthemorrhagic anemia; E87.0 Hyperosmolality and hypernatremia; E87.1 Hypo-osmolality and hyponatremia; E87.4 Mixed disorder of acid-base balance; F10.231 Alcohol dependence with withdrawal delirium; M62.82 Rhabdomyolysis; R18.8 Other ascites; I48.19 Other persistent atrial fibrillation; K56.7 Ileus, unspecified; S22.42XA Multiple fractures of ribs, left side, initial encounter for closed fracture; J98.11 Atelectasis; G62.81 Critical illness polyneuropathy; K55.9 Vascular disorder of intestine, unspecified; Z20.828 Contact with and (suspected) exposure to other viral communicable diseases; F10.229 Alcohol dependence with intoxication, unspecified; E83.39 Other disorders of phosphorus metabolism; E83.51 Hypocalcemia; H70.93 Unspecified mastoiditis, bilateral; E87.8 Other disorders of electrolyte and fluid balance, not elsewhere classified; D72.823 Leukemoid reaction; R40.2412 Glasgow coma scale score 13-15, at arrival to emergency department; E66.9 Obesity, unspecified; E78.5 Hyperlipidemia, unspecified; E87.5 Hyperkalemia; E87.70 Fluid overload, unspecified; G89.4 Chronic pain syndrome; I25.10 Atherosclerotic heart disease of native coronary artery without angina pectoris; I34.0 Nonrheumatic mitral (valve) insufficiency; N40.0 Benign prostatic hyperplasia without lower urinary tract symptoms; N50.89 Other specified disorders of the male genital organs; T50.2X5A Adverse effect of carbonic-anhydrase inhibitors, benzothiadiazides and other diuretics, initial encounter; F41.9 Anxiety disorder, unspecified; M54.9 Dorsalgia, unspecified; M54.2 Cervicalgia; M25.522 Pain in left elbow; Z68.33 Body mass index [BMI] 33.0-33.9, adult; Z79.899 Other long term (current) drug therapy; Z79.891 Long term (current) use of opiate analgesic; Z85.46 Personal history of malignant neoplasm of prostate; Z87.891 Personal history of nicotine dependence; Z95.1 Presence of aortocoronary bypass graft; Z98.1 Arthrodesis status; Z88.8 Allergy status to other drugs, medicaments and biological substances; W11.XXXA Fall on and from ladder, initial encounter; Y92.007 Garden or yard of unspecified non-institutional (private) residence as the place of occurrence of the external cause; Y90.5 Blood alcohol level of 100-119 mg/100 ml
CPT/HCPCS: 31624; 36415; 36430; 36558; 36573; 36600; 43246; 70450; 71045; 71260; 72125; 72170; 74018; 74176; 74177; 76937; 77001; 80048; 80053; 80202; 80306; 80320; 81001; 81003; 82040; 82140; 82150; 82330; 82550; 82607; 82746; 82805; 82945; 82947; 83036; 83605; 83690; 83735; 84100; 84132; 84145; 84157; 84425; 84443; 84478; 84484; 85025; 85027; 85610; 85730; 86140; 86704; 86706; 86850; 86870; 86880; 86900; 86901; 86902; 86920; 87040; 87070; 87075; 87077; 87086; 87102; 87116; 87186; 87205; 87206; 87252; 87324; 87340; 87496; 87498; 87529; 87798; 88108; 88305; 89050; 90471; 90648; 90715; 90732; 90734; 90935; 93005; 93306; 94002; 94003; 94640; 95816; 99291

== ENCOUNTER → 2020-12-16 | Outpatient (CLI) | payer MEDICARE ==
[2020-12-16 15:13] LABS: Basophils # (A) 0.2 k/uL (0-0.2); Basophils % (A) 1 %; Eosinophils # (A) 0.8 k/uL (0-0.7); Eosinophils % (A) 7 %; HCT 39.1 % (39.0-53.0); HGB 12.6 gm/dL (13.0-17.5); Lymphocytes # (A) 5.6 k/uL (1.0-4.8); Lymphocytes % (A) 44 %; MCH 28.6 pg (25.0-35.0); MCHC 32.3 g/dL (31.0-37.0); MCV 88.5 fL (80.0-100.0); Mean Platelet Volume 8.2; Monocytes % (A) 8 %; Neutrophils # (A) 4.7 k/uL (1.3-7.7); Neutrophils % (A) 37 %; Platelet Count 347 k/uL (150-450); RBC 4.42 m/uL (4.30-5.90); RDW 14.1 % (11.5-15.5); WBC 12.6 k/uL (3.8-10.6)
[2020-12-16 17:48] LABS: Poikilocytosis (M) Present
== END | disposition home or self-care (01) ==
LOC: LABPAT 14:19
PROVIDERS: ATTEND Surgery
DX: Z01.812 Encounter for preprocedural laboratory examination (principal); K43.0 Incisional hernia with obstruction, without gangrene
CPT/HCPCS: 36415; 85025

== ENCOUNTER 2020-12-22 09:20 | Day surgery (SDC) | payer MEDICARE ==
[2020-12-20 09:38] VITALS: BMI 26.6
[~2020-12-22 09:20] MED LIST: ACETAMINOPHEN TAB 500 MG TAB PO PRN; DEXAMETHASONE SOD PHOSPHATE 4 MG/ML 1 ML VIAL IV ONE; HEPARIN SODIUM,PORCINE/PF 5,000 UNIT/0.5 ML SYRINGE SQ PRN; LIDOCAINE 1% (10MG/ML) FOR IV START INTRADERMA PRN; MIDAZOLAM 2 MG/2 ML VIAL IV PRN; ONDANSETRON 4 MG/2 ML VIAL IVP ONE
[2020-12-22] MEDS: LACTATED RINGERS 1,000 ML IV SCH ×2 (10:00→14:50)
--- NOTE | 2020-12-22 10:32 | P.GSHP ---
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 Hx of Gout, states hx of Afib, was taken off eliquis 10/2020, Chronic back and neck pain, cervical fusion 2008 History of Any Multi-Drug Resistant Organisms: None Reported Past Surgical History: Coronary Bypass/CABG, Heart Catheterization Additional Past Surgical History / Comment(s): Splenectomy, trach, CABG and triple bypass, hernia inguinal, cervical spine fusion Past Anesthesia/Blood Transfusion Reactions: No Reported Reaction Smoking Status: Former smoker Medications and Allergies Home Medications Medication Instructions Recorded Confirmed Type Finasteride [Proscar] 5 mg PO HS 02/17/20 12/20/20 History Tamsulosin HCl [Flomax] 0.8 mg PO HS 02/17/20 12/20/20 History Ezetimibe [Zetia] 10 mg PO DAILY 12/20/20 12/20/20 History Fenofibrate Nanocrystallized 145 mg PO DAILY 12/20/20 12/20/20 History [Tricor] Metoprolol Tartrate [Lopressor] 12.5 mg PO BID 12/20/20 12/20/20 History Pregabalin [Lyrica] 75 mg PO BID 12/20/20 12/20/20 History Rosuvastatin Calcium [Crestor] 10 mg PO DAILY 12/20/20 12/20/20 History Allergies Allergy/AdvReac Type Severity Reaction Status Date / Time fentanyl Allergy states Verified 12/22/20 09:36 "was horribly depressed after" nitroglycerin AdvReac states Verified 12/22/20 09:36 [From Nitroglyn] "extreme headache" Surgical - Exam Vital Signs Temp Pulse Resp BP Pulse Ox 97.6 F 61 18 148/69 98 12/22/20 09:44 12/22/20 09:44 12/22/20 09:44 12/22/20 09:44 12/22/20 09:44 - General well developed, well nourished, no distress - Eyes PERRL - ENT normal pinna - Neck no masses - Respiratory normal expansion - Cardiovascular Rhythm: regular - Abdomen Abdomen: soft, non tender Hernia: incisional (Incisional hernia a long midline scar) Assessment and Plan Assessment: Incisional hernia along previous midline laparotomy scar. We'll perform robotic-assisted incisional hernia repair.
[2020-12-22] MEDS ORDERED: HYDROmorphone (PF) 1 MG/ML ONE (10:52)
[2020-12-22] MEDS ORDERED: LIDOCAINE 1% INJ 10MG/ML (20 ML MDV) ONE (10:52)
[2020-12-22] MEDS ORDERED: KETAMINE 10 MG/ML 20 ML VIAL ONE (10:52)
[2020-12-22] MEDS ORDERED: GLYCOPYRROLATE 0.2 MG/ML 2 ML VIAL ONE (10:52)
[2020-12-22] MEDS ORDERED: ROCURONIUM 10 MG/ML (5 ML VIAL) IV ONE (10:52)
[2020-12-22] MEDS ORDERED: NEOSTIGMINE 1 MG/ML 10 ML VIAL ONE (10:52)
[2020-12-22] MEDS ORDERED: SUCCINYLCHOLINE CHLORIDE 100 MG/5 ML SYR IV ONE (10:52)
[2020-12-22] MEDS ORDERED: MIDAZOLAM 2 MG/2 ML VIAL ONE (10:52)
[2020-12-22] MEDS ORDERED: KETOROLAC 15 MG/ML 1 ML VIAL ONE (10:52)
[2020-12-22] MEDS ORDERED: PROPOFOL 10 MG/ML 20 ML VIAL IV ONE (10:52)
[2020-12-22] MEDS ORDERED: ROPIVACAINE 5 MG/ML 30 ML VIAL ONE (10:52)
[2020-12-22] MEDS ORDERED: LIDOCAINE 1%-EPI 1:100,000 20 ML VIAL SQ ONE (10:55)
--- NOTE | 2020-12-22 11:35 | P.ANPRN ---
Procedure Note - Anesthesia - Nerve Block Performed Bilateral Rectus Abdominis Time Out Performed: Yes (:25) Date of Procedure: 12/22/20 Procedure Start Time: Procedure Stop Time: : Location of Patient: PreOp Indication: Acute Post-Operative Pain, Requested by Surgeon (Dr Ivy) Sedation Type: Sedate with meaningful contact maintained Preparation: Sterile Prep Position: Supine Catheter: None Needle Types: Pajunk Needle Gauge: 21 Ultrasound used to visualize needle placement: Yes Ultrasound used to observe medication spread: Yes Injectate: 0.5% Ropivacaine (see comment for volume) (15cc + 10cc PF normal saline each side) Blood Aspirated: No Pain Paresthesia on Injection Noted: No Resistance on Injection: Normal Image Stored and Saved: Yes Events: Uneventful and Well Tolerated
[2020-12-22] MEDS ORDERED: LACTATED RINGERS 1,000 ML IV ONE (11:41)
--- NOTE | 2020-12-22 11:51 | P.OP ---
Date of Procedure: 12/22/20 Preoperative Diagnosis: Incisional hernia Postoperative Diagnosis: Incisional hernia Adhesions Procedure(s) Performed: Diagnostic laparoscopy Open repair of incisional hernia with mesh Anesthesia: JEANNA Surgeon: Russell Ivy Estimated Blood Loss (ml): 5 Pathology: none sent Condition: stable Disposition: PACU Operative Findings: Incisional hernia measuring 10 x 4 cm closed with #1 and #1 strand effects suture and 3 x 6 Prolene mesh and secure strand tacker Description of Procedure: The patient's placed on the operative table in the supine position. He received general endotracheal tube anesthesia. His abdomen was prepped and usual fashion. Using a 5 mm optical trocar under direct visualization panel cavity was entered in the right upper quadrant. There were significant adhesions seen. These were throughout the entire abdominal cavity. At this point decided to perform an open repair of his incisional hernia. The gas was evacuated trochars withdrawn. The skin was incised midline. Using the cautery the subcutaneous tissues was divided off of the fascia. The fascia repair was then performed using #1 strep fix suture. A piece of Prolene mesh. Placed over top apparent secured SecureStrand tacker. Pradeep's fascia close [place]. Skin was closed ramonita. A DEVAUGHN drain had been placed over top of the mesh and brought through separate stab incision. Patient top she will was sent to recovery room in stable condition.
[2020-12-22 12:05] VITALS: TEMP 98.3
[2020-12-22] MEDS: HYDROmorphone 0.5 MG/0.5 ML SYRINGE IVP PRN ×4 (12:16→12:49)
[2020-12-22 12:40] VITALS: RESP 16
[2020-12-22 14:05] VITALS: BP 133/64; PULSE 69
== END 2020-12-22 16:00 | disposition home or self-care (01) ==
LOC: OR 09:20
PROVIDERS: ATTEND Surgery
DX: K43.2 Incisional hernia without obstruction or gangrene (principal); K66.0 Peritoneal adhesions (postprocedural) (postinfection); I48.91 Unspecified atrial fibrillation; I25.10 Atherosclerotic heart disease of native coronary artery without angina pectoris; I10 Essential (primary) hypertension; E78.5 Hyperlipidemia, unspecified; M19.90 Unspecified osteoarthritis, unspecified site; E07.9 Disorder of thyroid, unspecified; Z90.81 Acquired absence of spleen; G89.29 Other chronic pain; M54.2 Cervicalgia; Z98.1 Arthrodesis status; Z95.1 Presence of aortocoronary bypass graft; Z87.891 Personal history of nicotine dependence; Z79.899 Other long term (current) drug therapy; Z88.4 Allergy status to anesthetic agent; Z88.8 Allergy status to other drugs, medicaments and biological substances
CPT/HCPCS: 64999; 76942; 86900; 86901; 86850; 49560; 49568; C1781; J2250; J1100; J2710; J0690; J2405; J2001; J1170 ×2; J2795; J1885; J0330; J2704; J1644

== ENCOUNTER 2020-12-23 10:25 | Emergency (ER) | payer MEDICARE ==
[2020-12-23 10:29] VITALS: RESP 18
[2020-12-23 11:14] VITALS: BP 150/73; PULSE 67; TEMP 97.9
[2020-12-23 11:19] LABS: Appearance,Urine Clear (Clear); Bilirubin,Urine Negative (Negative); Blood,Urine Negative (Negative); Color,Urine Light Yellow; Glucose,Urine (UA) Trace (Negative); Ketones,Urine Negative (Negative); Leukocyte Esterase,Urine Negative (Negative); Nitrite,Urine Negative (Negative); PH, Urine 5.5 (5.0-8.0); Protein,Urine Negative (Negative); Specific Gravity,Urine 1.016 (1.001-1.035); Urobilinogen,Urine <2.0 mg/dL (<2.0)
--- NOTE | 2020-12-23 12:02 | ED ---
General Adult HPI - General Chief complaint: Abdominal Pain Stated complaint: Unable to urinate Time Seen by Provider: 12/23/20 10:34 Source: patient, RN notes reviewed Mode of arrival: ambulatory Limitations: no limitations - History of Present Illness Initial comments: 70-year-old male with a past medical history of CAD, hyperlipidemia, hypertension presents to the emergency room for a chief complaint of urinary frequency. Patient reports he had an open ventral hernia repair yesterday. States that there was a catheter placed and it was removed. Patient states he left the hospital and could urinate but only a small amount. When he went home he urinated small amounts about a quarter of a cup every hour and a half throughout the evening. Denies dysuria. Denies pain aside from over incision site. Patient does have a history of prostate disorder and currently takes 2 prostate medications.Patient has no other complaints at this time including shortness of breath, chest pain, abdominal pain, nausea or vomiting, headache, or visual changes. - Related Data Home Medications Medication Instructions Recorded Confirmed Finasteride [Proscar] 5 mg PO HS 02/17/20 12/23/20 Tamsulosin HCl [Flomax] 0.8 mg PO HS 02/17/20 12/23/20 Ezetimibe [Zetia] 10 mg PO DAILY 12/20/20 12/23/20 Fenofibrate Nanocrystallized 145 mg PO DAILY 12/20/20 12/23/20 [Tricor] Metoprolol Tartrate [Lopressor] 12.5 mg PO BID 12/20/20 12/23/20 Pregabalin [Lyrica] 75 mg PO BID 12/20/20 12/23/20 Rosuvastatin Calcium [Crestor] 10 mg PO DAILY 12/20/20 12/23/20 Previous Rx's Medication Instructions Recorded Docusate [Colace] 100 mg PO BID #20 capsule 12/22/20 Ibuprofen [Motrin] 600 mg PO Q6HR PRN #40 tab 12/22/20 oxyCODONE HCL [OxyIR] 5 mg PO Q6H PRN 3 Days #10 tab 12/22/20 Allergies Allergy/AdvReac Type Severity Reaction Status Date / Time fentanyl AdvReac states Verified 12/23/20 11:24 "was horribly depressed after" nitroglycerin AdvReac states Verified 12/23/20 11:24 [From Nitroglyn] "extreme headache" Review of Systems ROS Statement: Those systems with pertinent positive or pertinent negative responses have been documented in the HPI. ROS Other: All systems not noted in ROS Statement are negative. Past Medical History Past Medical History: Coronary Artery Disease (CAD), Hyperlipidemia, Hypertension, Prostate Disorder Additional Past Medical History / Comment(s): Chronic back and neck pain, cervical fusion 2009 History of Any Multi-Drug Resistant Organisms: None Reported Past Surgical History: Coronary Bypass/CABG Additional Past Surgical History / Comment(s): CABG and tripple bypass, hernia inguinal , cervical spine fusion Past Anesthesia/Blood Transfusion Reactions: No Reported Reaction Past Psychological History: Anxiety Smoking Status: Never smoker Past Alcohol Use History: None Reported Past Drug Use History: None Reported, Marijuana General Exam Limitations: no limitations General appearance: alert, in no apparent distress Head exam: Present: atraumatic, normocephalic, normal inspection Eye exam: Present: normal appearance, PERRL, EOMI. Absent: scleral icterus, conjunctival injection, periorbital swelling ENT exam: Present: normal exam, mucous membranes moist Neck exam: Present: normal inspection. Absent: tenderness, meningismus, lymphadenopathy Respiratory exam: Present: normal lung sounds bilaterally. Absent: respiratory distress, wheezes, rales, rhonchi, stridor Cardiovascular Exam: Present: regular rate, normal rhythm, normal heart sounds. Absent: systolic murmur, diastolic murmur, rubs, gallop, clicks GI/Abdominal exam: Present: soft, tenderness (Mild tenderness over repair si te.), normal bowel sounds, other (Drain in place, recent surgery, incision well appearing.). Absent: distended, guarding, rebound, rigid Course Vital Signs 12/23/20 12/23/20 10:26 11:12 Temperature 97.5 F L 97.9 F Pulse Rate 65 67 Respiratory 18 18 Rate Blood Pressure 146/70 150/73 O2 Sat by Pulse 99 98 Oximetry Medical Decision Making - Medical Decision Making Post void residual 221 in bladder. Urinalysis does not show any evidence of infection.I did offer an indwelling Nolan catheter but patient would prefer to wait a day or so and see if symptoms improve. He will otherwise follow up with urology. He will return here for any worsening symptoms. Patient given morphine for postop pain. - Lab Data Lab Results 12/23/20 Range/Units 10:57 Urine Color Light Yellow Urine Appearance Clear (Clear) Urine pH 5.5 (5.0-8.0) Ur Specific [place] 1.016 (1.001-1.035) Urine Protein Negative (Negative) Urine Glucose (UA) Trace H (Negative) Urine Ketones Negative (Negative) Urine Blood Negative (Negative) Urine Nitrite Negative (Negative) Urine Bilirubin Negative (Negative) Urine Urobilinogen <2.0 (<2.0) mg/dL Ur Leukocyte Esterase Negative (Negative) Disposition Clinical Impression: Post-op pain, Urinary retention Disposition: HOME SELF-CARE Condition: Good Instructions (If sedation given, give patient instructions): Urinary Retention in Men (ED) Additional Instructions: Please follow-up with your doctor. If symptoms continue follow-up with urology. If symptoms worsen return to the emergency room. If you do not urinate for over 12 hours return to the emergency room for catheter. Is patient prescribed a controlled substance at d/c from ED?: No Referrals: Franco Shaw DO [Primary Care Provider] - 1-2 days Time of Disposition: 12:11
[2020-12-23] MEDS ORDERED: MORPHINE SULFATE 4 MG/ML SYRINGE IM STA (12:10)
== END 2020-12-23 12:30 | disposition home or self-care (01) ==
LOC: EC 10:25
DX: R33.9 Retention of urine, unspecified (principal); G89.18 Other acute postprocedural pain; R35.0 Frequency of micturition; I10 Essential (primary) hypertension; E78.5 Hyperlipidemia, unspecified; I25.10 Atherosclerotic heart disease of native coronary artery without angina pectoris; F41.9 Anxiety disorder, unspecified
CPT/HCPCS: 51798; 81003; 96372; 99283

== ENCOUNTER → 2021-10-06 | Outpatient (CLI) | payer MEDICARE ==
[2021-10-06 22:39] LABS: HCT 40.4 % (39.6-50.0); HGB 12.9 g/dL (13.0-17.0); MCH 29.1 pg (27.0-32.0); MCHC 31.9 g/dL (32.0-37.0); MCV 91.2 fL (80.0-97.0); Mean Platelet Volume 12.7 fL (9.5-12.2); NRBC Per 100 WBC 0 /100 WBCS (0.0-0.0); Platelet Count 331 X 10*3/uL (140-440); RBC 4.43 X 10*6/uL (4.40-5.60); RDW 15.1 % (11.5-14.5); WBC 18.99 X 10*3/uL (4.50-10.00)
[2021-10-06 23:21] LABS: Basophils # (A) 0.18 X 10*3/uL (0.00-0.10); Basophils % (A) 0.9 %; Eosinophils % (A) 3.2 %; Immature Grans, Automated 0.4 %; Lymphocytes # (A) 10.88 X 10*3/uL (0.90-5.00); Lymphocytes % (A) 57.3 %; Monocytes # (A) 2.09 X 10*3/uL (0.20-1.00); Neutrophils # (A) 5.17 X 10*3/uL (1.80-7.70); Neutrophils % (A) 27.2 %
[2021-10-06 23:22] LABS: RBC Morphology NORMAL
== END | disposition home or self-care (01) ==
LOC: LABPAT 14:52
PROVIDERS: ATTEND Surgery
DX: Z01.818 Encounter for other preprocedural examination (principal); K43.2 Incisional hernia without obstruction or gangrene
CPT/HCPCS: 36415; 85025; 86850; 86900; 86901; 93005

== ENCOUNTER 2021-10-12 08:44 | Day surgery (SDC) | payer MEDICARE ==
[2021-10-11 11:45] VITALS: BMI 26.7
[~2021-10-12 08:44] MED LIST changes: +HYDROmorphone 0.5 MG/0.5 ML SYRINGE IVP PRN; +LACTATED RINGERS 1,000 ML IV SCH; -LIDOCAINE 1% (10MG/ML) FOR IV START INTRADERMA PRN; -MIDAZOLAM 2 MG/2 ML VIAL IV PRN
[2021-10-12] MEDS ORDERED: ONDANSETRON 4 MG/2 ML VIAL ONE (09:38)
[2021-10-12] MEDS ORDERED: MIDAZOLAM 2 MG/2 ML VIAL IVP ONE (09:56)
[2021-10-12 10:12] LABS: Potassium 4.7 mmol/L (3.5-5.1)
[2021-10-12] MEDS ORDERED: SODIUM CHLORIDE 0.9% (PF) 10 ML VIAL ONE (11:00)
[2021-10-12] MEDS ORDERED: SUCCINYLCHOLINE CHLORIDE 100 MG/5 ML SYR IV ONE (11:00)
[2021-10-12] MEDS ORDERED: ePHEDrine 50 MG/ML 1 ML VIAL ONE (11:00)
[2021-10-12] MEDS ORDERED: fentaNYL (PF) 50 MCG/ML 2 ML AMP ONE (11:00)
[2021-10-12] MEDS ORDERED: ROCURONIUM 10 MG/ML (5 ML VIAL) IV ONE (11:00)
[2021-10-12] MEDS ORDERED: ROPIVACAINE 5 MG/ML 30 ML VIAL ONE (11:00)
[2021-10-12] MEDS ORDERED: LIDOCAINE 1% INJ 10MG/ML (20 ML MDV) ONE (11:00)
[2021-10-12] MEDS ORDERED: PROPOFOL 10 MG/ML 20 ML VIAL IV ONE (11:00)
[2021-10-12] MEDS ORDERED: GLYCOPYRROLATE 0.2 MG/ML 2 ML VIAL ONE (11:00)
[2021-10-12] MEDS ORDERED: NEOSTIGMINE 1 MG/ML 10 ML VIAL ONE (11:00)
[2021-10-12] MEDS ORDERED: BUPIVACAINE (PF) 0.25% 30 ML VIAL SQ ONE (11:29)
[2021-10-12] MEDS ORDERED: LACTATED RINGERS 1,000 ML IV ONE (11:45)
[2021-10-12 12:23] VITALS: TEMP 96.8
[2021-10-12] MEDS ORDERED: diphenhydrAMINE 50 MG/ML 1 ML VIAL IVP ONE (12:36)
--- NOTE | 2021-10-12 14:32 | P.ANPRN ---
Procedure Note - Anesthesia - Nerve Block Performed Bilateral Rectus Abdominis Single Time Out Performed: Yes (950) Date of Procedure: 10/12/21 Procedure Start Time: 09:51 Procedure Stop Time: 09:57 Location of Patient: PreOp Indication: Acute Post-Operative Pain, Requested by Surgeon Specifically requested for management of pain by DrJob: Russell Ivy Sedation Type: Sedate with meaningful contact maintained Preparation: Sterile Prep Position: Supine Catheter: None Needle Types: Pajunk Needle Gauge: 21 Ultrasound used to visualize needle placement: Yes Ultrasound used to observe medication spread: Yes Injectate: 0.5% Ropivacaine (see comment for volume) (30cc + 10cc nacl pf. 20cc each side) Blood Aspirated: No Pain Paresthesia on Injection Noted: No Resistance on Injection: Normal Image Stored and Saved: Yes Events: Uneventful and Well Tolerated
[2021-10-12 15:19] VITALS: BP 154/80; PULSE 65; RESP 18
--- NOTE | 2021-10-13 08:55 | P.GSHP ---
History of Present Illness H&P Date: 10/12/21 Chief Complaint: Incisional hernia This a 71-year-old male who has a history of traumatic splenectomy. Patient developed an incisional hernia in the epigastric area. He presents today for laparoscopic robotic system repair. Past Medical History Past Medical History: Coronary Artery Disease (CAD), Hearing Disorder / Deafness, Hyperlipidemia, Hypertension, Musculoskeletal Disorder, Prostate Disorder Additional Past Medical History / Comment(s): Hearing aids. Chronic back and neck pain, cervical fusion 2008. In coma for 1 month after fall from ladder 01/2020, fx ribs, punctured lung. Incisional hernia. History of Any Multi-Drug Resistant Organisms: None Reported Past Surgical History: Coronary Bypass/CABG, Hernia Repair Additional Past Surgical History / Comment(s): CABG and triple bypass 2003, hernia inguinal, cervical spine fusion, splenectomy 2019, gastric tube/trach, ventral hernia, cataracts Past Anesthesia/Blood Transfusion Reactions: No Reported Reaction Additional Past Anesthesia/Blood Transfusion Reaction / Comment(s): Problems with fentanyl Past Psychological History: Anxiety Additional Psychological History / Comment(s): no current tx Smoking Status: Former smoker Past Alcohol Use History: Occasional Additional Past Alcohol Use History / Comment(s): Smoked 15 years, 1 ppd, quit 1990 Past Drug Use History: Marijuana Additional Drug Use History / Comment(s): uses a topical salve with THC - Past Family History Sister(s) Family Medical History: Cancer Additional Family Medical History / Comment(s): breast cancer Medications and Allergies Home Medications Medication Instructions Recorded Confirmed Type Finasteride [Proscar] 5 mg PO HS 02/17/20 10/11/21 History Tamsulosin HCl [Flomax] 0.8 mg PO HS 02/17/20 10/11/21 History Ezetimibe [Zetia] 10 mg PO DAILY 12/20/20 10/11/21 History Fenofibrate Nanocrystallized 145 mg PO DAILY 12/20/20 10/11/21 History [Tricor] Metoprolol Tartrate [Lopressor] 12.5 mg PO BID 12/20/20 10/11/21 History Pregabalin [Lyrica] 100 mg PO BID 12/20/20 10/11/21 History Rosuvastatin Calcium [Crestor] 10 mg PO DAILY 12/20/20 10/11/21 History Aspirin/Acetaminophen/Caffeine 2 each PO DIRECTED PRN 10/11/21 10/11/21 History [Excedrin Extra Strength Caplet] Lutein (Unknown Dose) 1 tab PO DAILY 10/11/21 History Multivitamins, Thera [Multivitamin 1 tab PO DAILY 10/11/21 10/11/21 History (formulary)] Vitamin E (Dl,Tocopheryl Acet) 500 unit PO BID 10/11/21 10/11/21 History [Vitamin E (400 Iu = 180 mg)] Acetaminophen Tab [Tylenol] 650 mg PO Q6H #30 tab 10/12/21 Rx Docusate [Colace] 100 mg PO BID #20 capsule 10/12/21 Rx Ibuprofen [Motrin] 600 mg PO Q6HR PRN #40 tab 10/12/21 Rx oxyCODONE HCL [OxyIR] 5 mg PO Q6H PRN 3 Days #10 tab 10/12/21 Rx Allergies Allergy/AdvReac Type Severity Reaction Status Date / Time fentanyl AdvReac states Verified 10/12/21 09:06 "was horribly depressed after" nitroglycerin AdvReac states Verified 10/12/21 09:06 [From Nitroglyn] "extreme headache" Surgical - Exam Vital Signs Temp Pulse Resp BP Pulse Ox 97.8 F 53 L 18 165/76 98 10/12/21 09:21 10/12/21 09:21 10/12/21 09:21 10/12/21 09:21 10/12/21 09:21 - General well developed, well nourished, no distress - Eyes PERRL - ENT normal pinna, normal nares - Neck no masses - Respiratory normal expansion - Cardiovascular Rhythm: regular - Abdomen 4 cm incisional hernia epigastric area Abdomen: soft, non tender Results - Labs 10/12/21 09:34 Abnormal Lab Results - Last 24 Hours (Table) 10/12/21 Range/Units 09:34 Chloride 111 H (98-107) mmol/L Diabetes panel 10/12/21 Range/Units 09:34 Sodium 142 (137-145) mmol/L Potassium 4.7 (3.5-5.1) mmol/L Chloride 111 H (98-107) mmol/L Carbon Dioxide 26 (22-30) mmol/L Pituitary panel 10/12/21 Range/Units 09:34 Sodium 142 (137-145) mmol/L Potassium 4.7 (3.5-5.1) mmol/L Chloride 111 H (98-107) mmol/L Carbon Dioxide 26 (22-30) mmol/L Adrenal panel 10/12/21 Range/Units 09:34 Sodium 142 (137-145) mmol/L Potassium 4.7 (3.5-5.1) mmol/L Chloride 111 H (98-107) mmol/L Carbon Dioxide 26 (22-30) mmol/L Assessment and Plan Assessment: Incisional hernia epigastric area. We'll perform laparoscopic robotic system repair.
--- NOTE | 2021-10-13 08:59 | P.OP ---
Date of Procedure: 10/13/21 Preoperative Diagnosis: Incisional hernia Postoperative Diagnosis: Incisional hernia Procedure(s) Performed: Diagnostic laparoscopy Open repair of incisional hernia Anesthesia: JEANNA Surgeon: Russlel Ivy Estimated Blood Loss (ml): 5 Pathology: none sent Condition: stable Disposition: PACU Description of Procedure: A shunt placed the operative table in supine position. He received general anesthesia. His abdomen was prepped and draped usual fashion. A 5 mm optical trocar trochars placed in the left lateral position under direct visualization.. The abdomen was insufflated. After adequate insufflation the laparoscope placed. Cavity. There were extensive adhesions seen throughout the abdomen. Due to the adhesions inside performed open procedure. The trochars withdrawn. The skin was incised in the epigastric area over the hernia. Using left cautery the subcutaneous tissue divided fashion. Fascia was repaired using 0 Vicryl suture. A piece of Prolene mesh was placed over top of the repair and secured with secure strap tacker. A DEVAUGHN drains placed over top the repair and brought through separate stab incision. Pradeep's fascia closed with 0 Vicryl. Skin was closed with ramonita. Patient top she will was sent to recovery room in stable condition.
== END 2021-10-12 15:24 | disposition home or self-care (01) ==
LOC: OR 08:44
PROVIDERS: ATTEND Surgery
DX: K43.2 Incisional hernia without obstruction or gangrene (principal); E78.5 Hyperlipidemia, unspecified; I10 Essential (primary) hypertension; I25.10 Atherosclerotic heart disease of native coronary artery without angina pectoris; Z79.1 Long term (current) use of non-steroidal anti-inflammatories (NSAID); Z80.3 Family history of malignant neoplasm of breast; Z87.891 Personal history of nicotine dependence; Z88.5 Allergy status to narcotic agent; Z90.81 Acquired absence of spleen; Z95.1 Presence of aortocoronary bypass graft; G89.18 Other acute postprocedural pain
CPT/HCPCS: 49654; 64999; 86900; 86901; 86902; 80051; 86850; C1781; J2250; J1200; J1100; J2710; J0690; J2405; J2001; J3010; J2795; J0330; J2704; J1170; J1644